=== PATIENT | female | born 1960 | race Two or more races ===

== ENCOUNTER 2016-09-02 06:12 | Inpatient (IN) | payer MEDICARE, OTHER ==
[~2016-09-02] VITALS: Ht 160 cm; Wt 88.5 kg
--- NOTE | 2016-09-02 06:13 | NUR ---
[facility] ambulance c/o g-tube placement confirmation. er md at bedside to eval pt with orders received.
[2016-09-02] MEDS ORDERED: DIATR MEGLU/DIATRIZOATE SODIUM 30 ML BOTTLE (GASTROGRAPHIN) ONE ×3 (06:17→12:14)
--- NOTE | 2016-09-02 06:27 | NUR ---
financial services technician at bedside for KUB.
--- NOTE | 2016-09-02 06:38 | NUR ---
er md at bedside talking to pt family member.
--- NOTE | 2016-09-02 06:43 | NUR ---
jesi garcia talking to [facility] staff.
--- NOTE | 2016-09-02 07:06 | NUR ---
pt back from radiology. pending ct abd/pelvis result.
--- NOTE | 2016-09-02 08:18 | NUR ---
dr emanuel called for consult [phone].
[2016-09-02] MEDS ORDERED: Z GUARD REMEDY 2 OZ OINT TP ONE (08:30)
[2016-09-02] MEDS ORDERED: IV NS 0.9% 1,000 ML BAG IV ONE (08:30)
[2016-09-02] MEDS ORDERED: LANS30CA10 GT (08:33)
[2016-09-02] MEDS ORDERED: MULT-659 GT (08:33)
[2016-09-02] MEDS ORDERED: VALS160T24 GT (08:33)
[2016-09-02] MEDS ORDERED: NA P133E RC (08:33)
[2016-09-02] MEDS ORDERED: INSU100V11 SQ (08:33)
[2016-09-02] MEDS ORDERED: BLOO-697 IN (08:33)
[2016-09-02] MEDS ORDERED: LEVE100S GT (08:33)
[2016-09-02] MEDS ORDERED: BISA10SU8 RC (08:33)
[2016-09-02] MEDS ORDERED: ASCO500S2 GT (08:33)
[2016-09-02] MEDS ORDERED: NUT.237L30 GT (08:33)
[2016-09-02] MEDS ORDERED: ACET-2605 GT (08:33)
[2016-09-02] MEDS ORDERED: INSU100V7 SQ (08:33)
[2016-09-02] MEDS ORDERED: DILT-44 GT (08:33)
[2016-09-02] MEDS ORDERED: ACET650S26 GT ×2 (08:33)
[2016-09-02] MEDS ORDERED: DOCU50LI GT (08:33)
[2016-09-02] MEDS ORDERED: MAGN400O6 GT (08:33)
[2016-09-02] MEDS ORDERED: FERR300L GT (08:33)
[2016-09-02] MEDS ORDERED: HEPA10009 SQ (08:33)
[2016-09-02] MEDS ORDERED: ATOR10TA GT (08:33)
[2016-09-02] MEDS ORDERED: IPRA0.2S9 IH ×2 (08:33)
[2016-09-02] MEDS ORDERED: HYDR-4075 GT (08:33)
[2016-09-02] MEDS ORDERED: ALBU2.5V13 IH ×2 (08:33)
[2016-09-02] MEDS ORDERED: AMIN30LI4 GT (08:35)
--- NOTE | 2016-09-02 08:55 | NUR ---
latoya jaramillo [phone] paged
--- NOTE | 2016-09-02 08:59 | NUR ---
DR RUIZ PAGED [phone]
--- NOTE | 2016-09-02 09:20 | NUR ---
FC PLACED ON GTUBE AREA TO KEEP IT OPEN/INTACT PER MD ORDER. Addendum: 09/02/16 at 0950 by RBATACLAN 14F GILLIAM CATHETER
--- NOTE | 2016-09-02 09:39 | NUR ---
SECOND CALL TO DR MARTINEZ/NIKOLE [phone]
[2016-09-02] MEDS ORDERED: MORPHINE SULFATE INJ 2 MG/ML DISP.SYRIN IV ONE (10:00)
[2016-09-02] MEDS ORDERED: IV NS 0.9% 1,000 ML ONE (10:12)
[2016-09-02] MEDS ORDERED: IV SET PRIMARY PUMP SET 1 EA INFUS.SET MC ONE (10:12)
[2016-09-02] MEDS ORDERED: MORPHINE SULFATE INJ 4 MG/ML DISP.SYRIN ONE (10:12)
[2016-09-02 10:18] LABS: BASOPHILS # (AUTO) 0.1 /CMM (0.0-0.2); BASOPHILS % (AUTO) 0.6 % (0.0-2.0); EOSINOPHILS # (AUTO) 0.1 /CMM (0.0-0.7); EOSINOPHILS % (AUTO) 0.8 % (0.0-6.0); HEMATOCRIT 38 % (33-45); HEMOGLOBIN 12.4 g/dL (11.5-14.8); LYMPHOCYTES # (AUTO) 1.2 /CMM (0.8-4.8); LYMPHOCYTES % (AUTO) 11.5 % (20.0-44.0); MEAN CORPUSCULAR HEMOGLOBIN 30 PG (26.0-33.0); MEAN CORPUSCULAR HGB CONC 33 g/dl (31.0-36.0); MEAN CORPUSCULAR VOLUME 91 fL (82-100); MONOCYTES # (AUTO) 0.3 /CMM (0.1-1.30); MONOCYTES % (AUTO) 3.1 % (2.0-12.0); NEUTROPHILS # (AUTO) 8.8 /CMM (1.8-8.9); PLATELET COUNT (AUTO) 429 /CMM (150-450); RDW COEFFICIENT OF VARIATION 12.3 (11.5-15.0); RED BLOOD CELL COUNT(AUTO) 4.15 MIL/uL (4.0-5.2); WHITE BLOOD COUNT (AUTO) 10.5 K/uL (4.3-11.0)
--- NOTE | 2016-09-02 10:20 | NUR ---
CALLED MED SURG FOR REPORT BUT NURSE UNAVAILABLE.
[2016-09-02 10:26] LABS: CALCIUM, SERUM 8.4 mg/dL (8.5-10.1); CREATININE 0.6 mg/dL (0.6-1.3); POTASSIUM 3.8 mmol/L (3.5-5.1)
[2016-09-02 10:29] LABS: INR 1.03 (0.87-1.13); PROTHROMBIN TIME 10.7 SECS (9.5-12.7)
--- NOTE | 2016-09-02 10:30 | NUR ---
PT MEDICATED ORDERED.
--- NOTE | 2016-09-02 10:54 | NUR ---
REPORT GIVEN TO INA MAYS FOR MED SURG 328.
[2016-09-02 12:00] VITALS: BP 176/99
[2016-09-02] MEDS ORDERED: BISACODYL SUPP (10 MG) 10 MG/SUPP.RECT SUPP.RECT RC PRN (12:00)
[2016-09-02] MEDS ORDERED: hydrALAZINE HCL 10 MG TABLET GT PRN (12:00)
[2016-09-02] MEDS ORDERED: ALBUTEROL FS 2.5 MG/0.5 ML VIAL.NEB IH PRN (12:00)
[2016-09-02] MEDS ORDERED: IPRATROPIUM NEB FS 0.5 MG/2.5 ML AMPUL.NEB IH PRN (12:00)
[2016-09-02] MEDS ORDERED: Potassium Chloride 10 MEQ in IV NS 0.9% 1,000 ML IV PRN (12:00)
[2016-09-02] MEDS ORDERED: DEXTROSE 50%-WATER 50 ML DISP.SYRIN IV PRN (12:00)
[2016-09-02] MEDS ORDERED: MAGNESIUM HYDROXIDE 30 ML UDC GT PRN (12:00)
[2016-09-02] MEDS ORDERED: BLOOD SUGAR DIAGNOSTIC 1 EACH STRIP IN SCH (12:00)
[2016-09-02] MEDS ORDERED: NA PHOS,M-B/NA PHOS,DI-BA 1 EA ENEMA RC PRN (12:00)
--- NOTE | 2016-09-02 12:00 | NUR ---
MS RN RECEIVED A NEW ADMISSION FROM ER, W/ DX OF MISPLACED GTUBE, PATIENT IN NONVERBAL, CONTRACTED, W/ TACH CONNECTED TO AEROSOL, NOTED TO HAVE SACRAL EXCORIATIONS AND RIGHT BUTTOCK SCAR, REPOSITIONED FOR COMFORT,ALL NEEDS ATTENDED.
[2016-09-02] MEDS ORDERED: ACETAMINOPHEN ES 500 MG TABLET GT PRN (12:30)
--- NOTE | 2016-09-02 13:30 | NUR ---
MS RN WAS SEEN BY DR. DICKEY W/ ORDERS MADE AND CARRIED OUT, WAS ABLE TO SPOKE W/ DAUGHTER.
[2016-09-02] MEDS: BLOOD SUGAR DIAGNOSTIC 1 EACH STRIP IN SCH ×2 (15:04→18:37)
[2016-09-02] MEDS: IV D5/0.45 NACL 1,000 ML IV PRN (15:05)
[2016-09-02] MEDS: PANTOPRAZOLE 40 MG VIAL IV SCH (15:08)
[2016-09-02 16:00] VITALS: BP 164/95
[2016-09-02] MEDS: DOCUSATE SODIUM LIQ 100 MG/10 ML UDC GT SCH (17:00)
[2016-09-02] MEDS: LEVETIRACETAM SOL (5 ML) 100 MG/ML UDC GT SCH (17:00)
--- NOTE | 2016-09-02 17:00 | NUR ---
MS TABATHA WEEKS W/ GASTROGRAFLACIE STEWARD AWAITING FOR RESULT,ALL NEEDS ATTENDED.
--- NOTE | 2016-09-02 17:20 | NUR ---
MS MAYS BS - 159 - NO COVERAGE GIVEN PT IS NPO AT THIS TIME.
[2016-09-02 18:35] VITALS: BP 158/94
[2016-09-02] MEDS ORDERED: hydrALAZINE HCL IV 20 MG VIAL IV PRN (19:00)
--- NOTE | 2016-09-02 19:00 | NUR ---
MS RN ON BED, NO DISTRESS NOTED.ALL NEEDS ATTENDED.
[2016-09-02] MEDS: IPRATROPIUM NEB FS 0.5 MG/2.5 ML AMPUL.NEB IH SCH (19:28)
[2016-09-02] MEDS: ALBUTEROL FS 2.5 MG/0.5 ML VIAL.NEB IH SCH (19:29)
--- NOTE | 2016-09-02 19:50 | NUR ---
INSTRUMENT SETTER NOTE: PATIENT RESTING IN BED, NO ACUTE DISTRESS NOTED. BREATHING EVEN AND UNLABORED, NO SOB NOTED. TRACH PORTEX #[address] WITH COOL AEROSOL AT 8 LPM AT 35%. MIDLINE TO REBECA IN PLACE, INFUSING D5 1/2NS AT 85 ML/HR. BED LOCKED AND IN LOWEST POSITION, CALL LIGHT IN REACH. WILL CONTINUE TO MONITOR.
[2016-09-02] MEDS ORDERED: Z GUARD REMEDY 2 OZ OINT TP PRN (20:00)
[2016-09-02 20:34] VITALS: BP 157/71
[2016-09-02] MEDS: ATORVASTATIN 10 MG TABLET GT SCH (22:00)
--- NOTE | 2016-09-02 22:30 | NUR ---
MS RN NOTE: PATIENT LIPITOR NOT GIVEN, PATIENT NPO AND G-TUBE NOT IN CORRECT PLACEMENT. WILL CONTINUE TO MONITOR.
[2016-09-03] MEDS: BLOOD SUGAR DIAGNOSTIC 1 EACH STRIP IN SCH ×5 (00:41→23:56)
--- NOTE | 2016-09-03 00:45 | NUR ---
MS RN NOTE: PATIENT BLOOD SUGAR LEVEL 169MG/DL, NO INSULIN COVERAGE GIVEN. PATIENT NPO AND WITHOUT G-TUBE IN PLACE AND NO FEEDING AT THIS TIME. NO S/S OF HYPERGLYCEMIA NOTED. WILL CONTINUE TO MONITOR.
[2016-09-03] MEDS: ALBUTEROL FS 2.5 MG/0.5 ML VIAL.NEB IH SCH ×4 (01:30→20:07)
[2016-09-03] MEDS: IPRATROPIUM NEB FS 0.5 MG/2.5 ML AMPUL.NEB IH SCH ×4 (01:30→20:07)
[2016-09-03] MEDS: IV D5/0.45 NACL 1,000 ML IV PRN ×2 (05:50→17:30)
--- NOTE | 2016-09-03 06:10 | NUR ---
MS RN NOTE: PATIENT RESTING IN BED, NO ACUTE DISTRESS NOTED. BREATHING EVEN AND UNLABORED, NO SOB NOTED. TRACH PORTEX #[address] WITH COOL AEROSOL AT 8 LPM AT 35%. MIDLINE TO REBECA IN PLACE, INFUSING D5 1/2NS AT 85 ML/HR. G-TUBE SITE WITH GILLIAM IN PLACE TO KEEP G-TUBE HOLE SITE OPEN, NO DRAINAGE NOTED. PATIENT BLOOD SUGAR LEVEL 136 MG/DL, NO INSULIN GIVEN SINCE PATIENT STILL NPO AND HAS NO G-TUBE ACCESS/FEEDING. NO S/S OF HYPERGLYCEMIA NOTED BED LOCKED AND IN LOWEST POSITION, CALL LIGHT IN REACH. WILL ENDORSE TO DAY NURSE TO CONTINUE WITH PLAN OF CARE.
--- NOTE | 2016-09-03 07:19 | NUR ---
MS RN OPENING NOTE: PATIENT RECEIVED AWAKE IN BED IN NO ACUTE SIGNS OF DISTRESS. A/O X1, NON-VERBAL, NO SIGNS OF PAIN OR DISCOMFORTS OBSERVED. ON AEROSOL TRACH COLLAR AT 8 LPM AT 35%FI02, BREATHING EVEN WITH NO SOB NOTED. MIDLINE TO REBECA IN PLACE WITH D5 1/2NS AT 85 ML/HR INFUSING WELL. G-TUBE SITE WITH GILLIAM IN PLACE TO KEEP G-TUBE HOLE SITE OPEN, NO DRAINAGE NOTED. NPO WITH NO G-TUBE ACCESS/FEEDING. BED LOCKED AND IN LOWEST POSITION, CALL LIGHT IN REACH. WILL CONTINUE TO MONITOR ACCORDINGLY.
[2016-09-03 07:55] LABS: BASOPHILS % (AUTO) 0.2 % (0.0-2.0); EOSINOPHILS # (AUTO) 0.1 /CMM (0.0-0.7); EOSINOPHILS % (AUTO) 0.6 % (0.0-6.0); HEMATOCRIT 34 % (33-45); HEMOGLOBIN 11.4 g/dL (11.5-14.8); LYMPHOCYTES # (AUTO) 2.3 /CMM (0.8-4.8); LYMPHOCYTES % (AUTO) 21.7 % (20.0-44.0); MEAN CORPUSCULAR HEMOGLOBIN 30 PG (26.0-33.0); MEAN CORPUSCULAR HGB CONC 33 g/dl (31.0-36.0); MEAN CORPUSCULAR VOLUME 92 fL (82-100); MONOCYTES # (AUTO) 0.6 /CMM (0.1-1.30); MONOCYTES % (AUTO) 5.5 % (2.0-12.0); NEUTROPHILS # (AUTO) 7.7 /CMM (1.8-8.9); PLATELET COUNT (AUTO) 425 /CMM (150-450); RED BLOOD CELL COUNT(AUTO) 3.74 MIL/uL (4.0-5.2); WHITE BLOOD COUNT (AUTO) 10.7 K/uL (4.3-11.0)
[2016-09-03 08:00] VITALS: BP 146/75
[2016-09-03] MEDS: LEVETIRACETAM SOL (5 ML) 100 MG/ML UDC GT SCH ×3 (08:13→16:53)
[2016-09-03] MEDS: ASCORBIC ACID SYRUP 500 MG/5 ML UDC GT SCH ×2 (08:13→09:00)
[2016-09-03] MEDS: DOCUSATE SODIUM LIQ 100 MG/10 ML UDC GT SCH ×3 (08:14→16:55)
[2016-09-03] MEDS: FERROUS SULFATE UDC 300 MG/5 ML UDC GT SCH ×2 (08:14→09:00)
[2016-09-03] MEDS: DILTIAZEM HCL CD 120 MG PO SCH ×2 (08:15→09:00)
[2016-09-03 08:17] LABS: ALBUMIN 2.2 g/dL (3.4-5.0); BILIRUBIN,TOTAL 0.6 mg/dL (0.2-1.0); CALCIUM, SERUM 8.6 mg/dL (8.5-10.1); CREATININE 0.8 mg/dL (0.6-1.3); MAGNESIUM 2.1 mg/dL (1.8-2.4); PHOSPHORUS 3.3 mg/dL (2.5-4.9); POTASSIUM 3.6 mmol/L (3.5-5.1); TOTAL PROTEIN, SERUM 6.9 g/dL (6.4-8.2)
[2016-09-03] MEDS: ACETAMINOPHEN 650 MG/20.3 ML UDC GT SCH ×2 (08:17→09:00)
--- NOTE | 2016-09-03 09:29 | NUR ---
RN NOTES PATIENT'S ALL MEDS AT 0900 NOT GIVEN. PATIENT ON NPO AND G-TUBE NOT IN CORRECT PLACEMENT. CHARGE NURSE MADE AWARE AND WILL FOLLOW-UP WITH MD. WILL CONTINUE TO MONITOR.
--- NOTE | 2016-09-03 11:34 | NUR ---
RN NOTES PATIENT SEEN BY DR LEA GI . CONSENT FOR EGD AND PEG PLACEMENT WITH ANESTHESIA TAKEN FROM DAUGHTER AND FILED IN CHART. NPO AFTER MIDNIGHT ALSO WAS ORDERED. PROCEDURES EXPLAINED TO DAUGHTER AND VERBALIZED UNDERSTANDING. WILL CONTINUE TO MONITOR.
[2016-09-03] MEDS: PANTOPRAZOLE 40 MG VIAL IV SCH (12:35)
[2016-09-03] MEDS: INSULIN REGULAR, HUMAN 100 UNIT/ML 3 ML VIAL SQ PRN ×2 (12:38→23:57)
[2016-09-03 16:00] VITALS: BP 148/84
--- NOTE | 2016-09-03 18:57 | NUR ---
DYE TUB TENDER CLOSING NOTE: PATIENT IN BED RESTING AT MODERTAE HIGH BACKREST. ALERT AND ORIENTED X1. NON-VERBAL. NO SIGNIFICANT CHANGES NOTED THIS SHIFT. DAUGHTER VISITED THIS MORNING. PATIENT WITH TRACH PORTEX #[address] WITH COOL AEROSOL 8LPM TRACH COLLAR AT 35%FI02, NO SOB NOTED. MIDLINE TO REBECA IN PLACE WITH IVF OF D5 1/2NS AT 85 ML/HR. PATIENT IS FOR EGD AND PEG PLACEMENT TOMORROW. NPO ENFORCED. BED LOCKED AND IN LOWEST POSITION, CALL LIGHT IN REACH. ENDORSED TO NIGHT NURSE FOR LEONARD..
[2016-09-03 19:00] VITALS: BP 142/74
--- NOTE | 2016-09-03 19:50 | NUR ---
MS RN INITIAL NOTES: RECEIVED REPORT FROM NIKKY MAYS. PT IN BED, ABLE TO OPEN EYES SPONTANEOUSLY, NON VERBAL ON COOL AEROSOL 8L FIO2 35%. RESPIRATION EVEN AND UNLABORED. NO FACIAL GRIMACE NOTED. APPEARS CALM AND COMFORTABLE. PT HAS GTUBE ON CLAMPED, PT ON NPO BECAUSE GTUBE IS NOT IN PROPER PLACEMENT, ABDOMEN SOFT TO TOUCH, NO DISTENTION NOTED WITH HYPOACTIVE BOWEL SOUND HEARD UPON AUSCULTATION. ALSO FOR EGD AND PEG PLACEMENT IN AM, CONSENT SECURED BY DAY SHIFT RN. PT HAS REBECA MIDLINE, PATENT AND FLUSHING WELL, INFUSING WITH D5 1/2 NS AT 85ML/HR. BLE KEPT OFFLOADED. SAFETY PRECAUTIONS FOR FALL INITIATED CALL LIGHT IN REACH WILL CONTINUE TO MONITOR
[2016-09-03 20:00] VITALS: BP 142/74
--- NOTE | 2016-09-03 20:00 | NUR ---
ms rn notes: pt has gtube with gaines in placed in to keep gtube hole open,
[2016-09-03] MEDS: ATORVASTATIN 10 MG TABLET GT SCH (22:00)
--- NOTE | 2016-09-03 22:04 | NUR ---
ms rn notes: lipitor not administered at this time because pt's on npo and also because of gtube malfunction, gtube not in proper placement.
--- NOTE | 2016-09-03 23:57 | NUR ---
accucheck: blood sugar checked and reveal 138, no insulin given as pt on npo, for egd and peg placement in am
[2016-09-04] VITALS (10 sets, daily range): BP systolic 145–164; BP diastolic 60–87
[2016-09-04] MEDS: IPRATROPIUM NEB FS 0.5 MG/2.5 ML AMPUL.NEB IH SCH ×4 (02:18→19:34)
[2016-09-04] MEDS: ALBUTEROL FS 2.5 MG/0.5 ML VIAL.NEB IH SCH ×4 (02:18→19:34)
--- NOTE | 2016-09-04 04:00 | NUR ---
morning care: assisted clinical social work aide in providing bed bath to the pt, also wound care done as ordered, changed dressing on gtube and trache site.
[2016-09-04] MEDS: IV D5/0.45 NACL 1,000 ML IV PRN (04:48)
[2016-09-04] MEDS: BLOOD SUGAR DIAGNOSTIC 1 EACH STRIP IN SCH ×4 (05:08→23:36)
[2016-09-04] MEDS: INSULIN REGULAR, HUMAN 100 UNIT/ML 3 ML VIAL SQ PRN ×2 (05:08→23:41)
--- NOTE | 2016-09-04 05:08 | NUR ---
accu check: check blood sugar and reveal 161, no insulin given pt npo for egd and peg placement in am
[2016-09-04 06:18] LABS: BASOPHILS % (AUTO) 0.5 % (0.0-2.0); EOSINOPHILS # (AUTO) 0.3 /CMM (0.0-0.7); EOSINOPHILS % (AUTO) 5.1 % (0.0-6.0); HEMATOCRIT 33 % (33-45); HEMOGLOBIN 10.8 g/dL (11.5-14.8); LYMPHOCYTES # (AUTO) 1.8 /CMM (0.8-4.8); MEAN CORPUSCULAR HEMOGLOBIN 30 PG (26.0-33.0); MEAN CORPUSCULAR HGB CONC 33 g/dl (31.0-36.0); MEAN CORPUSCULAR VOLUME 92 fL (82-100); MONOCYTES # (AUTO) 0.5 /CMM (0.1-1.30); MONOCYTES % (AUTO) 7.8 % (2.0-12.0); NEUTROPHILS # (AUTO) 3.2 /CMM (1.8-8.9); NEUTROPHILS % (AUTO) 55.6 % (43.0-81.0); PLATELET COUNT (AUTO) 374 /CMM (150-450); RDW COEFFICIENT OF VARIATION 12.6 (11.5-15.0); RED BLOOD CELL COUNT(AUTO) 3.55 MIL/uL (4.0-5.2); WHITE BLOOD COUNT (AUTO) 5.8 K/uL (4.3-11.0)
[2016-09-04 06:28] LABS: CALCIUM, SERUM 8.5 mg/dL (8.5-10.1); CREATININE 0.7 mg/dL (0.6-1.3); MAGNESIUM 1.9 mg/dL (1.8-2.4); PHOSPHORUS 2.8 mg/dL (2.5-4.9); POTASSIUM 3.2 mmol/L (3.5-5.1)
--- NOTE | 2016-09-04 06:33 | NUR ---
ms rn closing notes: pt in bed, awake, non verbal, remains npo gtube remains clamped. for egd and peg placement today, consent secured, checklist completed. pt remains in cool aerosol , respiration even and unlabored. mahamed midline remains infusing with d5 1/2 ns at 85ml/hr. vs remains stable, needs attended. ble kept offloaded. will endorse to day rn for tracie.
[2016-09-04 06:38] LABS: INR 1.06 (0.87-1.13); PROTHROMBIN TIME 11.4 SECS (9.5-12.7)
[2016-09-04] MEDS: ASCORBIC ACID SYRUP 500 MG/5 ML UDC GT SCH (09:00)
[2016-09-04] MEDS: LEVETIRACETAM SOL (5 ML) 100 MG/ML UDC GT SCH ×2 (09:00→17:25)
[2016-09-04] MEDS: ACETAMINOPHEN 650 MG/20.3 ML UDC GT SCH (09:00)
[2016-09-04] MEDS: DILTIAZEM HCL CD 120 MG PO SCH (09:00)
[2016-09-04] MEDS: DOCUSATE SODIUM LIQ 100 MG/10 ML UDC GT SCH ×2 (09:00→17:25)
[2016-09-04] MEDS: FERROUS SULFATE UDC 300 MG/5 ML UDC GT SCH (09:00)
--- NOTE | 2016-09-04 09:14 | NUR ---
[id number]: HOLD ALL MORNING MEDICATIONS: ASCORBIC ACID 500 MG, FERROUS SULFATE 330 MG, KEPPRA ALMA 500 MG, TYLENOL 650 MG, CARDIZEM 120 MG.
[2016-09-04] MEDS: PANTOPRAZOLE 40 MG VIAL IV SCH (12:34)
[2016-09-04] MEDS ORDERED: PHARMACY TO CHANGE PO MEDS TO GT/NG XX PRN (13:00)
[2016-09-04] MEDS: ACETAMINOPHEN 650 MG/20.3 ML UDC GT PRN (13:14)
[2016-09-04] MEDS ORDERED: DILTIAZEM HCL 30 MG TABLET GT SCH ×2 (13:30→17:00)
[2016-09-04] MEDS: DILTIAZEM HCL 30 MG TABLET GT SCH ×3 (13:54→21:30)
--- NOTE | 2016-09-04 14:58 | NUR ---
[id number]: NOTIFIED DR. PAULSON ABOUT LAB RESULTS FOR TODAY: RBC= 3.55, HGB= 10.8, NA= 149, POTASSIUM=3.2, JLSNYZVX=864. DR. PAULSON ORDERED START D5W WITH 40 KCL AT 80 CC PER HOUR.
[2016-09-04] MEDS ORDERED: Potassium Chloride 40 MEQ in IV D5W 1,000 ML IV ONE (15:30)
--- NOTE | 2016-09-04 17:30 | NUR ---
[id number]: CALLED DR. LEONORA LIM REGARDING GT PLACEMENT. PENDING RETURN PHONE CALL
--- NOTE | 2016-09-04 18:30 | NUR ---
[id number]: CALLED DR. RAPHAEL LEA ABOUT GT PLACEMENT. PENDING RETURN PHONE CALL
--- NOTE | 2016-09-04 19:25 | NUR ---
MS RN OPENING NOTES: RECEIVED PT IN BED. PT ASLEEP AND IS NONVERBAL. PT IS ON TRACH PORTEX #9, COOL AEROSOL 8LPM, FIO2 35%. PT HAS G TUBE. NO FEEDING AT THIS TIME. ENDORSED FROM AM NURSE THAT NONE TO BE STARTED TONIGHT AND THAT TO CONTINUE MEDS VIA G TUBE. PT HAS R UPPER ARM MIDLINE AND IS BEING INFUSED WITH POTASSIUM CHLORIDE 40 MEQ IN D5W. CALL LIGHT WITHIN PT'S REACH. BED KEPT IN LOCKED, LOWEST POSITION, AND SIDE RAILS X 2 UP. NO SIGNS OR SYMPTOMS OF DISTRESS AT THIS TIME. WILL CONTINUE TO MONITOR PT.
[2016-09-04] MEDS: ATORVASTATIN 10 MG TABLET GT SCH (21:30)
--- NOTE | 2016-09-04 23:38 | NUR ---
MS RN NOTES: BLOOD SUGAR WAS 141 MG/DL. NO COVERAGE WAS GIVEN D/T GLYTROL FEEDING NOT BEING STARTED UNTIL TOMORROW ENDORSED FROM AM NURSE. WILL CONTINUE TO MONITOR PT.
[2016-09-05] MEDS: IPRATROPIUM NEB FS 0.5 MG/2.5 ML AMPUL.NEB IH SCH ×4 (01:09→19:10)
[2016-09-05] MEDS: ALBUTEROL FS 2.5 MG/0.5 ML VIAL.NEB IH SCH ×4 (01:09→19:10)
[2016-09-05] MEDS ORDERED: IV SET PRIMARY PUMP SET 1 EA INFUS.SET MC ONE (02:41)
[2016-09-05] MEDS: BLOOD SUGAR DIAGNOSTIC 1 EACH STRIP IN SCH ×3 (05:00→18:32)
--- NOTE | 2016-09-05 05:02 | NUR ---
MS RN NOTES: BLOOD SUGAR WAS 152. NO COVERAGE WAS GIVEN SINCE PT IS STILL NPO. WILL CONTINUE TO MONITOR PT.
[2016-09-05] MEDS: IV D5/0.45 NACL 1,000 ML IV PRN (05:56)
--- NOTE | 2016-09-05 07:37 | NUR ---
MS RN CLOSING NOTES: ALL NEEDS WERE ATTENDED TO ACCORDINGLY. PT OPENS EYES AND IS NONVERBAL. PT HAS TRACH PORTEX #9 AND IS ON COOL AEROSOL 8LPM AND FIO2 35%. PT HAS G TUBE IN PLACE. NO RESIDUAL NOTED. FLUSHED WITH 30ML OF WATER. PT HAS R UPPER ARM MIDLINE AND IS PATENT AND INTACT. FLUIDS ARE INFUSING AT IV D5 1/2 NS 1,000ML AT 85ML/HR. ENDORSED TO AM NURSE FOR CONTINUITY OF CARE.
--- NOTE | 2016-09-05 07:40 | NUR ---
MS RN RECEIVED ON BED, AWAKE AT TIMES, NON VERBAL PATIENT, TRACH CONNECTED TO AEROSOL, NO SOB NOTED. G TUBE CLAMP FOR MEDS, WAITING FOR NUTRITION CONSULT.
[2016-09-05 08:00] VITALS: BP 166/100
[2016-09-05] MEDS: FERROUS SULFATE UDC 300 MG/5 ML UDC GT SCH (09:24)
[2016-09-05] MEDS: DOCUSATE SODIUM LIQ 100 MG/10 ML UDC GT SCH ×2 (09:24→18:32)
[2016-09-05] MEDS: ACETAMINOPHEN 650 MG/20.3 ML UDC GT SCH (09:24)
[2016-09-05] MEDS: LEVETIRACETAM SOL (5 ML) 100 MG/ML UDC GT SCH ×2 (09:24→18:32)
[2016-09-05] MEDS: ASCORBIC ACID SYRUP 500 MG/5 ML UDC GT SCH (09:24)
[2016-09-05] MEDS: DILTIAZEM HCL 30 MG TABLET GT SCH ×4 (09:27→22:44)
--- NOTE | 2016-09-05 10:25 | NUR ---
WOUND CARE CONSULT: PT PRESENTS WITH NEW G TUBE. SITE CLEAR WITH SLIGHTLY DRY SKIN AND HEALED ABRASION TO RT ABDOMEN. SCARRING NOTED TO SACRUM WITH LARGE AREA OF SURGICAL SCAR TO RT BUTTOCK & THIGH. SLIGHT EXCORIATION NOTED TO BUTTOCKS. ALL SKIN PROTECTION RECOMMENDATIONS DISCUSSED WITH NURSING STAFF. RECOMMEND LYDIA ISOFLEX LOW AIRLOSS BED. DISCUSSED WITH NURSING STAFF AND LOCK TENDER. PT TO BE TURNED AND REPOSITIONED EVERY 2 HRS PT CONDITION PERMITS, HEELS FLOATED. PT NOW ON COMFORT GEL MATTRESS. JASMYN SCORE IS 9. MD IN AGREEMENT WITH PLAN OF CARE. Addendum: 09/05/16 at 1029 by CARLOS DOE WNDNU Amended: Links added.
--- NOTE | 2016-09-05 12:00 | NUR ---
MS TABATHA BS - 186 - NO COVERAGE GIVEN, PATIENT IS NPO AT THIS TIME.
[2016-09-05] MEDS: PANTOPRAZOLE 40 MG VIAL IV SCH (13:12)
--- NOTE | 2016-09-05 15:21 | NUR ---
MS RN WAS SEEN BY MACHINE PULLER, WILL START FEEDING SOON.
[2016-09-05 16:00] VITALS: BP 188/100
--- NOTE | 2016-09-05 18:47 | NUR ---
ms rn on bed,feeding started, tolerated well w/o complication, due meds given,all needs attended.
--- NOTE | 2016-09-05 19:40 | NUR ---
MS/RN NOTES RECEIVED PT. LYING IN BED WITH EYES OPEN. PT. IS NON-VERBAL. PT. WITH TRACH PRESENT AND INTACT ON COOL AEROSOL @ 8LPM. NO SOB, RESPIRATORY DISTRESS OR S/S OF PAIN NOTED AT THIS TIME. PT. WITH RIGHT UPPER ARM MIDLINE PRESENT, PATENT AND INTACT ADMINISTERING TO PT. D5 1/2NS @ 85ML/HR. PT. WITH G-TUBE PRESENT, PATENT AND INTACT ADMINISTERING TO PT. GLYTROL @ 30ML/HR. PER DAYSHIFT NURSE PT. SEEN BY DIETARY FEEDING RECENTLY STARTED AT 30ML/HR. PER DIETARY IF PT. TOLERATING FEEDING WELL IN 8 HOURS MAY INCREASE FEEDING RATE BY 10ML/HR WITH GOAL RATE OF 60ML/HR. PT. BILATERAL HEELS OFFLOADED ON PILLOWS. WILL CONTINUE TO MONITOR FOR RESIDUALS. BED IN LOWEST POSITION, CALL LIGHT WITHIN REACH, WILL CONTINUE TO MONITOR.
[2016-09-05] MEDS: GLYTROL 1,000 ML BAG GT SCH (19:56)
[2016-09-05 20:00] VITALS: BP 153/87
[2016-09-05] MEDS: ATORVASTATIN 10 MG TABLET GT SCH (22:44)
[2016-09-06] MEDS: BLOOD SUGAR DIAGNOSTIC 1 EACH STRIP IN SCH ×5 (00:37→23:25)
[2016-09-06] MEDS: INSULIN REGULAR, HUMAN 100 UNIT/ML 3 ML VIAL SQ PRN ×5 (00:39→23:41)
[2016-09-06] MEDS: ALBUTEROL FS 2.5 MG/0.5 ML VIAL.NEB IH SCH ×4 (00:56→19:21)
[2016-09-06] MEDS: IPRATROPIUM NEB FS 0.5 MG/2.5 ML AMPUL.NEB IH SCH ×4 (00:56→19:21)
--- NOTE | 2016-09-06 04:00 | NUR ---
MS/RN NOTES PT. TOLERATING G-TUBE FEEDING WELL. LESS THAN 10ML RESIDUAL NOTED. INCREASED PT. TUBE-FEEDING TO 40ML/HR. WILL CONTINUE TO MONITOR.
--- NOTE | 2016-09-06 05:56 | NUR ---
MS/RN NOTES BLOOD SUGAR= 159, ADMINISTERED 2 UNITS INSULIN PER SLIDING SCALE. PT ON GT FEEDING. WILL MONITOR FOR S/S OF HYPOGLYCEMIA
--- NOTE | 2016-09-06 06:33 | NUR ---
MS/RN NOTES PT. LYING IN BED RESTING. PT. IS NON-VERBAL WITH TRACH PRESENT AND INTACT ON COOL AEROSOL @ 8LPM. NO SOB, RESPIRATORY DISTRESS OR S/S OF PAIN NOTED AT THIS TIME AND THROUGHOUT SHIFT. PT. WITH RIGHT UPPER ARM MIDLINE PRESENT, PATENT AND INTACT ADMINISTERING TO PT. NS WITH 10 MEQ KCL @ 100ML/HR. PT. WITH G-TUBE PRESENT, PATENT AND INTACT ADMINISTERING TO PT. GLYTROL @ 40ML/HR. PT. TOLERATING WELL. WILL ENDORSE TO DAYSHIFT NURSE TO CONTINUE MONITORING TUBE FEEDING AND RESIDUAL, AND IF CONTINUES TO TOLERATE WELL CAN INCREASE FEEDING RATE BY 10ML/HR WITH GOAL RATE OF 60ML/HR. PT. BILATERAL HEELS OFFLOADED. ALL PT. NEEDS MET. PT. OFFLOADED. TURNED AND REPOSITIONED Q2H AND NEEDED. BED IN LOWEST POSITION, CALL LIGHT WITHIN REACH, WILL ENDORSE TO DAYSHIFT NURSE FOR CONTINUITY OF CARE.
--- NOTE | 2016-09-06 07:30 | NUR ---
received pt. in am,stable,suctioned for small amt. thick pale yellowish tinged sputum.
[2016-09-06 08:00] VITALS: BP 164/88
[2016-09-06] MEDS: ACETAMINOPHEN 650 MG/20.3 ML UDC GT SCH ×2 (09:55→16:12)
[2016-09-06] MEDS: DOCUSATE SODIUM LIQ 100 MG/10 ML UDC GT SCH ×2 (09:55→17:00)
[2016-09-06] MEDS: ASCORBIC ACID SYRUP 500 MG/5 ML UDC GT SCH (09:55)
[2016-09-06] MEDS: FERROUS SULFATE UDC 300 MG/5 ML UDC GT SCH (09:55)
[2016-09-06] MEDS: LEVETIRACETAM SOL (5 ML) 100 MG/ML UDC GT SCH ×2 (09:56→18:18)
[2016-09-06] MEDS: PROSOURCE / PROSTAT (PYXIS) 30 ML UDC GT SCH (09:56)
[2016-09-06] MEDS: DILTIAZEM HCL 30 MG TABLET GT SCH ×4 (10:09→21:40)
--- NOTE | 2016-09-06 11:30 | NUR ---
vomited small amt. while lying flat for bath.no apparent aspiration,but chest x-ray done.
[2016-09-06 12:00] VITALS: BP 191/100
[2016-09-06] MEDS: PANTOPRAZOLE 40 MG VIAL IV SCH (12:35)
[2016-09-06] MEDS ORDERED: CLONIDINE HCL 0.1 MG TABLET PO ONE (14:30)
--- NOTE | 2016-09-06 14:38 | NUR ---
dr. kya root called as bp elevated.order for catapres given.given 0.2 mg per g tube.
[2016-09-06 16:00] VITALS: BP 192/94
[2016-09-06] MEDS: ACETAMINOPHEN 650 MG/20.3 ML UDC GT PRN (16:14)
--- NOTE | 2016-09-06 16:26 | NUR ---
bp still elevated,given tylenol.650 mg po.will recheck shortly.
--- NOTE | 2016-09-06 16:27 | NUR ---
dc photos taken in anticipation of disch. today.
--- NOTE | 2016-09-06 18:30 | NUR ---
dtr. called with notification of disch,speaking now to chargemaster analyst-refusing to let mom go home with this late notice.to call
--- NOTE | 2016-09-06 19:20 | NUR ---
dr. kya root,s office called to let her know pt. not leaving till tomorrow.dr. daniels,operational risk consultant to call nurse back.nichol taylor. rn informed md notified.
--- NOTE | 2016-09-06 19:30 | NUR ---
PEG TUBE AUSCULTATED, RESIDUAL CHECKED, SET PEG TUBE FEEDING TO REACH GOAL OF 60 CC/HR, WILL CONTINUE TO MONITOR.
--- NOTE | 2016-09-06 20:00 | NUR ---
RECEIVED PATIENT IN BED, ALERT AND AWAKE, NON-VERBAL, TRACH DEPENDENT ON COOL AEROSOL AT 8LPM, NO SOB, NO DISTRESS, NOT IN APPARENT PAINT, NO FACIAL GRIMACING, NO RESTLESSNESS. CHANGED TRACH DRESSING, SUCTIONED PATIENT, PEG TUBE FEEDING INFUSING WELL AT 40 CC/HR, TO BE ADJUSTED TO REACH GOAL OF 60 CC/HR. PEG TUBE DRESSING IS CLEAN, LEFT UPPER ARM MIDLINE INFUSING WELL, BILATERAL LOWER EXT OFFLOADED WITH BOOTS ON. KEPT HOB AT 45 DEGREES, ON ASPIRATION PRECAUTION. KEPT SAFE AND COMFORTABLE, CALL LIGHT WITHIN REACH.
[2016-09-06 20:04] VITALS: BP 151/80
[2016-09-06] MEDS: GLYTROL 1,000 ML BAG GT SCH (20:32)
[2016-09-06] MEDS: ATORVASTATIN 10 MG TABLET GT SCH (21:39)
[2016-09-06 22:00] VITALS: BP 151/80
--- NOTE | 2016-09-06 22:00 | NUR ---
PEG TUBE FEEDING INFUSING AND TOLERATED WELL AT 60 CC/HR, NO ABDOMINAL DISTENTION, WITH 0 RESIDUAL, WILL CONTINUE TO MONITOR.
[2016-09-07] MEDS: IPRATROPIUM NEB FS 0.5 MG/2.5 ML AMPUL.NEB IH SCH ×2 (01:08→08:23)
[2016-09-07] MEDS: ALBUTEROL FS 2.5 MG/0.5 ML VIAL.NEB IH SCH ×2 (01:08→08:23)
[2016-09-07] MEDS: BLOOD SUGAR DIAGNOSTIC 1 EACH STRIP IN SCH (05:16)
[2016-09-07] MEDS: INSULIN REGULAR, HUMAN 100 UNIT/ML 3 ML VIAL SQ PRN (05:23)
--- NOTE | 2016-09-07 06:39 | NUR ---
PATIENT IS ALERT AND AWAKE, TRACH DEPENDENT ON COOL AEROSOL, NO SOB, NO RESPIRATORY DISTRESS, SUCTIONED PRN, CHANGED TRACH DRESSING, CHANGED INNER CANNULA, MOUTH CARE RENDERED, PROVIDED GOOD PERINEAL CARE, ALL DUE MEDICATIONS GIVEN, CALL LIGHT WITHIN REACH.
[2016-09-07 08:00] VITALS: BP 164/93
--- NOTE | 2016-09-07 08:00 | NUR ---
MS RN NOTES RECEIVED REPORT WITH PATIENT IN BED. PATIENT IS NONVERBAL BUT IS ABLE TO TRACK WITH HER EYES. PATIENT MIDLINE IV IS PATENT AND INTACT. PATIENT CURRENTLY RECEIVING 8LPM OF OXYGEN VIA TRACHEOSTOMY. NO SOB OR ANY S/S OF DISTRESS NOTED. BED IS IN LOW LOCKED POSITION. WILL CONTINUE TO MONITOR PATIENT AND PREPARE FOR DISCHARGE TO [facility].
[2016-09-07] MEDS: ASCORBIC ACID SYRUP 500 MG/5 ML UDC GT SCH (08:27)
[2016-09-07] MEDS: DOCUSATE SODIUM LIQ 100 MG/10 ML UDC GT SCH (08:27)
[2016-09-07] MEDS: LEVETIRACETAM SOL (5 ML) 100 MG/ML UDC GT SCH (08:27)
[2016-09-07 08:29] VITALS: BP 164/93
[2016-09-07] MEDS: PROSOURCE / PROSTAT (PYXIS) 30 ML UDC GT SCH (08:29)
[2016-09-07] MEDS: DILTIAZEM HCL 30 MG TABLET GT SCH (08:29)
[2016-09-07] MEDS: FERROUS SULFATE UDC 300 MG/5 ML UDC GT SCH (08:29)
[2016-09-07] MEDS: ACETAMINOPHEN 650 MG/20.3 ML UDC GT SCH (08:35)
--- NOTE | 2016-09-07 09:30 | NUR ---
MS RN NOTES PATIENT DISCHARGED TO [facility]. CALLED [facility] AND GAVE REPORT TO TABATHA BOOTHE IN SUBAC[place]. PATIENT TRANSFERRED TO [facility] WITH AMBULANCE BY EMT'S. DISCHARGE INSTRUCTIONS, SUMMARY WAS GIVEN TO EMT. BELONGINGS HAVE BEEN ACCOUNTED FOR. PATIENT'S DAUGHTER, NEELA, CAME TO PERSONALLY MEAT CUTTING TEACHER HER BELONGINGS. AWARE OF ALL ABNORMAL LABS. PATIENT'S MIDLINE HAS BEEN REMOVED. ALL PATIENT NEEDS HAVE BEEN MET. PATIENT DISCHARGED IN STABLE CONDITION.
== END 2016-09-07 10:00 | DRG 393 ==
LOC: ER 06:14 → MED 10:02
PROVIDERS: ADMIT Internal Medicine Nephrology; ATTEND Internal Medicine Nephrology
PROC: 05H533Z Insertion of Infusion Device into Right Subclavian Vein, Percutaneous Approach (ICD-10-PCS; 2016-09-02)
PROC: 0DH63UZ Insertion of Feeding Device into Stomach, Percutaneous Approach (ICD-10-PCS; principal; 2016-09-04 09:36)
DX: K94.23 Gastrostomy malfunction (principal); G93.40 Encephalopathy, unspecified; R53.2 Functional quadriplegia; Z99.11 Dependence on respirator [ventilator] status; J96.11 Chronic respiratory failure with hypoxia; E87.0 Hyperosmolality and hypernatremia; R40.3 Persistent vegetative state; J98.11 Atelectasis; Y83.3 Surgical operation with formation of external stoma as the cause of abnormal reaction of the patient, or of later complication, without mention of misadventure at the time of the procedure; Y73.1 Therapeutic (nonsurgical) and rehabilitative gastroenterology and urology devices associated with adverse incidents; E11.9 Type 2 diabetes mellitus without complications; G40.909 Epilepsy, unspecified, not intractable, without status epilepticus; I10 Essential (primary) hypertension; J44.9 Chronic obstructive pulmonary disease, unspecified; R13.10 Dysphagia, unspecified; Z86.73 Personal history of transient ischemic attack (TIA), and cerebral infarction without residual deficits; Z87.440 Personal history of urinary (tract) infections; Z93.0 Tracheostomy status; L98.8 Other specified disorders of the skin and subcutaneous tissue; M24.574 Contracture, right foot; M24.575 Contracture, left foot; L90.5 Scar conditions and fibrosis of skin; S01.501A Unspecified open wound of lip, initial encounter; X58.XXXA Exposure to other specified factors, initial encounter; Y93.9 Activity, unspecified; Y92.129 Unspecified place in nursing home as the place of occurrence of the external cause; L89.159 Pressure ulcer of sacral region, unspecified stage; I87.2 Venous insufficiency (chronic) (peripheral); B35.1 Tinea unguium; M24.542 Contracture, left hand; M24.541 Contracture, right hand; Z88.2 Allergy status to sulfonamides
CPT/HCPCS: 31720; 36415; 36569; 71010-TC; 74000-TC; 74160-TC; 80048-TC; 80053-TC; 82962-TC; 83735-TC; 84100-TC; 84484-TC; 85025-TC; 85610-TC; 85730-TC; 86850-TC; 87081-TC; 94664-TC; A4606; A4623; A6402; A7526; C9113; J0360; J1815; J1953; J2270; J2704; J3480; J3490; J7030; J7070; Q9963; Z7610

== ENCOUNTER 2017-05-23 08:24 | Inpatient (IN) | payer MEDICARE, OTHER ==
[~2017-05-23] VITALS: Ht 162.6 cm; Wt 84.6 kg
[~2017-05-23 08:24] MED LIST: ACET-2605 GT; ACET650S26 GT; ALBU2.5V13 IH; AMIN30LI4 GT; ASCO500S2 GT; ATOR10TA GT; BISA10SU8 RC; BLOO-697 IN; DILT120C62 GT; DOCU50LI GT; FERR300L GT; HEPA10009 SQ; HYDR-4075 GT; INSU100V11 SQ; INSU100V7 SQ; IPRA0.2S9 IH; LANS30CA54 GT; LEVE100S GT; MAGN400O6 GT; MULT-659 GT; NA P133E RC; NUT.237L30 GT; VALS160T24 GT
--- NOTE | 2017-05-23 08:35 | NUR ---
[facility] PRIVATE EMS FROM [facility] FOR ABNORMAL LABS. BUN-178, CREATININE-4.42, WBC-18.28. PATIENT IS TRACH DEPENDENT. HOT TO TOUCH, FEVER 102.4. NO SOB. HYPOTENSIVE. IV IN PLACE FROM SNF ON LEFT HAND, 24 G. SAFETY AND COMFORT MEASURES IN PLACE. MD AT BEDSIDE FOR EVAL.
--- NOTE | 2017-05-23 08:55 | NUR ---
NEW IV STARTED ON RFA, 20 G. BLOOD DRAWN AND SENT TO LAB.
[2017-05-23] MEDS ORDERED: IV NS 0.9% 1,000 ML BAG IV ONE ×2 (09:00→09:30)
[2017-05-23 09:14] LABS: BASOPHILS # (AUTO) 0.1 /CMM (0.0-0.2); BASOPHILS % (AUTO) 0.6 % (0.0-2.0); HEMATOCRIT 23 % (33-45); HEMOGLOBIN 7.8 g/dL (11.5-14.8); LYMPHOCYTES # (AUTO) 1.3 /CMM (0.8-4.8); LYMPHOCYTES % (AUTO) 9.1 % (20.0-44.0); MEAN CORPUSCULAR HEMOGLOBIN 30 PG (26.0-33.0); MEAN CORPUSCULAR HGB CONC 34 g/dl (31.0-36.0); MEAN CORPUSCULAR VOLUME 90 fL (82-100); MONOCYTES # (AUTO) 0.7 /CMM (0.1-1.30); MONOCYTES % (AUTO) 4.6 % (2.0-12.0); NEUTROPHILS # (AUTO) 12.3 /CMM (1.8-8.9); NEUTROPHILS % (AUTO) 85.7 % (43.0-81.0); PLATELET COUNT (AUTO) 214 /CMM (150-450); RDW COEFFICIENT OF VARIATION 14.4 (11.5-15.0); RED BLOOD CELL COUNT(AUTO) 2.55 MIL/uL (4.0-5.2); WHITE BLOOD COUNT (AUTO) 14.4 K/uL (4.3-11.0)
[2017-05-23] MEDS ORDERED: CRAN3875 GT (09:16)
[2017-05-23] MEDS ORDERED: SACC250C PO (09:16)
[2017-05-23] MEDS ORDERED: METR250T PO (09:16)
[2017-05-23] MEDS ORDERED: VANCOMYCIN 1 GM in IV D5W 250 ML IV ONE (09:30)
[2017-05-23] MEDS ORDERED: METRONIDAZOLE 500MG/ NS 100ML 100 ML IV ONE (09:30)
[2017-05-23] MEDS ORDERED: PIPERACILLIN /TAZOBACTAM 3.375 G in IV D5W 50 ML IV ONE (09:30)
[2017-05-23] MEDS ORDERED: ACETAMINOPHEN 650 MG/SUPP.RECT RC ONE ×2 (09:30→09:43)
[2017-05-23 09:45] LABS: TROPONIN I 0.161 ng/mL (0.00-0.056)
[2017-05-23 09:54] LABS: ALBUMIN 1.5 g/dL (3.4-5.0); BILIRUBIN,DIRECT 0.1 mg/dL (0.0-0.2); BILIRUBIN,TOTAL 0.3 mg/dL (0.2-1.0); CALCIUM, SERUM 7.6 mg/dL (8.5-10.1); CREATININE 5.1 mg/dL (0.6-1.3); POTASSIUM 4.1 mmol/L (3.5-5.1); TOTAL PROTEIN, SERUM 6.9 g/dL (6.4-8.2)
--- NOTE | 2017-05-23 10:09 | NUR ---
[facility] ON-CALL PAGED
[2017-05-23 10:35] LABS: BAND % (MANUAL) 3 % (0.0-5.0); LYMPHOCYTES % (MANUAL) 9 % (16-48); MONOCYTES % (MANUAL) 5 % (0-11.0); NEUTROPHILS % (MANUAL) 83 (42-76)
--- NOTE | 2017-05-23 10:50 | NUR ---
16 FR gaines catheter inserted per sterile protocal. Immediate output 60ML of urine, light brown and purulent.
[2017-05-23 11:09] LABS: APPEARANCE,URINE Turbid (CLEAR); BILIRUBIN,URINE SMALL (NEGATIVE); BLOOD, URINE Large Ery/uL (NEGATIVE); KETONES,URINE Trace (NEGATIVE); LEUKOCYTE ESTERASE ,URINE Large (NEGATIVE); NITRITE, URINE Negative (NEGATIVE); PH,URINE 7.5 (5.0-8.0); PROTEIN,URINE >=300 mg/dl (NEGATIVE); UGLUCOSE Negative (NEGATIVE); UROBILINOGEN,URINE 0.2 EU/dL (0.2)
--- NOTE | 2017-05-23 11:10 | NUR ---
RECEIVED ADMITTING ORDERS FROM DR. CORINNE AGUSTIN AND PLACED IN CHART.
[2017-05-23 11:11] LABS: COLOR,URINE Light Brown/Red (YELLOW)
[2017-05-23 11:18] LABS: BACTERIA,URINE Many /HPF (None Seen); RBC,URINE 51-80 /HPF (0-2); SQUAMOUS EPITHELIAL CELL,UR Rare /HPF (None Seen); WBC,URINE TOO NUMEROUS TO COUN /HPF (0-3)
--- NOTE | 2017-05-23 11:57 | NUR ---
105-1 [facility] NURSE NELSON
[2017-05-23] MEDS ORDERED: IPRATROPIUM NEB FS 0.5 MG/2.5 ML AMPUL.NEB IH PRN (12:00)
[2017-05-23] MEDS ORDERED: BISACODYL SUPP (10 MG) 10 MG/SUPP.RECT SUPP.RECT RC PRN (12:00)
[2017-05-23] MEDS ORDERED: NA PHOS,M-B/NA PHOS,DI-BA 1 EA ENEMA RC PRN (12:00)
[2017-05-23] MEDS ORDERED: DEXTROSE 50%-WATER 50 ML DISP.SYRIN IV PRN ×2 (12:00→19:30)
[2017-05-23] MEDS ORDERED: MAGNESIUM HYDROXIDE 30 ML UDC GT PRN (12:00)
[2017-05-23] MEDS ORDERED: ALBUTEROL FS 2.5 MG/0.5 ML VIAL.NEB IH PRN (12:00)
[2017-05-23] MEDS ORDERED: INSULIN REGULAR, HUMAN 100 UNIT/ML 3 ML VIAL SQ PRN (12:00)
[2017-05-23] MEDS: BLOOD SUGAR DIAGNOSTIC 1 EACH STRIP IN SCH ×2 (12:00→17:51)
[2017-05-23] MEDS ORDERED: BLOOD SUGAR DIAGNOSTIC 1 EACH STRIP IN SCH (12:00)
--- NOTE | 2017-05-23 12:45 | NUR ---
REPORT GIVEN TO QUENTIN MAYS FOR LEONARD.
--- NOTE | 2017-05-23 12:50 | NUR ---
PATIENT TRANSPORTED TO [facility] VIA ACLS PROTOCOL FOR ADMISSION. RNQUENTIN TO PROVIDE LEONARD.
--- NOTE | 2017-05-23 13:20 | NUR ---
RISA RN NOTE RECEIVED PATIENT QUOC WITH DX SEPSIS ,UTI UNDER CARE DR NIKOLE SUN, PATIENT AWAKE BUR CONFUSED WITH TRACH ON 3L O2 VIA NC SAT 95% ,BODY CHECK DONE, VS TAKEN T NOW 99.7 , WITH GILLIAM CATH TO GRAVITY WITH HEMATURIA .ON TELE MONITOR SR HR 90 , BED IN LOWEST AND LOCKED POSITION , NO BELONGINGS AT THIS TIME , WILL ORDER WOUND CARE NURSE WILL CONT TO MONITOR CLOSELY Addendum: 05/23/17 at 1541 by QUENTIN BAEZ RN CORRECTION CHICA RECEIVED PATIENT ROM ER
[2017-05-23] MEDS: ALBUTEROL FS 2.5 MG/0.5 ML VIAL.NEB IH SCH ×2 (13:30→19:45)
[2017-05-23] MEDS: IPRATROPIUM NEB FS 0.5 MG/2.5 ML AMPUL.NEB IH SCH ×2 (13:30→19:44)
[2017-05-23 15:14] VITALS: BP 89/45
[2017-05-23] MEDS: HEPARIN SODIUM, PORCINE 5000 UNITS/1 ML VIAL SQ SCH ×2 (15:24→21:00)
--- NOTE | 2017-05-23 15:27 | NUR ---
RISA RN NOTE SEEN BY DR KELLEY WITH NEW ORDER CARRIED OUT, ON COLLER AEROSOL 28% 5L O2 ,SAT 96% ,WILL CONT TO MONITOR CLOSELY
--- NOTE | 2017-05-23 15:42 | NUR ---
RISA RN NOTE ABG DONE ORDERED
[2017-05-23 15:48] LABS: ABG BASE EXCESS -0.7 mmol/L; ABG OXYGEN SATURATION 94.8 % (92.0-98.5); ABG PCO2 36.8 mmHg (35.0-45.0); ABG PH 7.424 (7.350-7.450); ABG PO2 80.8 mmHg (75.0-100.0); AaDO2 75.4 mmHg; COHb 0.3 % (0.5-1.5); MetHb 0.4 % (0.0-1.5); O2Hb 94.1 % (94.0-97.0); SITE, ABG Right Radial; VENT MODE, BG COOL AEROSOL @ 28%
[2017-05-23] MEDS: GLYTROL 1,000 ML BAG GT PRN (15:58)
[2017-05-23 16:00] VITALS: BP_SYST 105; BP_SYST 85; BP_DIAS 44
--- NOTE | 2017-05-23 16:24 | NUR ---
RISA RN NOTE SPOKE WITH DR HOPKINS NOTIFIED THAT BP ON LEG 85/44 AND ON ARM 74/33 ORDERED TO START IVF AT 50 ML PER HOUR NS ,WILL CARRIED OUT
[2017-05-23 16:26] VITALS: BP 85/44
[2017-05-23] MEDS ORDERED: IV NS 0.9% 1,000 ML IV PRN (16:30)
[2017-05-23] MEDS ORDERED: Medication Not On Formulary EA (Saccharomyces Boulardii (Florastor) 250 MG) PO SCH (17:00)
[2017-05-23] MEDS ORDERED: METRONIDAZOLE 250 MG TABLET PO SCH (17:00)
[2017-05-23] MEDS: LEVETIRACETAM SOL (5 ML) 100 MG/ML UDC GT SCH (17:13)
--- NOTE | 2017-05-23 17:48 | NUR ---
RISA RN NOTE IVF STARTED ORDERED, KEEP HOB ELEVATED ,NOT IN ACUTE DISTRESS
--- NOTE | 2017-05-23 17:54 | NUR ---
RISA MAYS NOTE CALLED TO DR CARREON NOTIFIED ABG RESULT, NO NEW ORDER AT THESE TIME Addendum: 05/23/17 at 1807 by QUENTIN BAEZ RN MELVINA CHANEL ON LT FA RON 20 INSERTED WITH GOOD BLOOD RETURN
--- NOTE | 2017-05-23 18:41 | NUR ---
kameron varela note noted skin with diaphoretic , all needs attended ,channing varela food service agent at bedside with new atb order given Addendum: 05/23/17 at 1904 by QUENTIN BAEZ RN T 99.8
[2017-05-23] MEDS ORDERED: FEE PK DOSING 1 MIN EA MC ONE (18:49)
[2017-05-23] MEDS ORDERED: ONDANSETRON HCL/PF 4 MG/2 ML VIAL IV PRN (19:00)
--- NOTE | 2017-05-23 19:30 | NUR ---
RISA RN INITIAL NOTES RECEIVED PATIENT NON-VERBAL, ON TPIECE WITH FIO2 28%. NO S/S OF PAIN OR DISCOMFORT. NO RESPIRATORY DISTRESS NOTED, SPO2 100%. ON TELE MONITOR SR 89. GT PATENT AND INTACT, IN PLACE, TOLERATING GTF. F/C PATENT AND INTACT, DRAINING BY GRAVITY, NOTED CLOUDY WITH PINK TINGE. HOB ELEVATED. SIDE RAILS UP AND LOCKED. BED KEPT AT LOWEST POSITION. CALL LIGHT KEPT WITHIN EASY REACH. WILL CONTINUE TO MONITOR.
[2017-05-23] MEDS: IV NS 0.9% 1,000 ML IV PRN (19:55)
[2017-05-23 20:00] VITALS: BP 95/49
[2017-05-23] MEDS ORDERED: VANCOMYCIN 1 GM in IV NS 0.9% 250 ML IV ONE (20:00)
[2017-05-23] MEDS: MEROPENEM 500 MG in IV NS 0.9% 50 ML IV SCH (20:48)
--- NOTE | 2017-05-23 21:00 | NUR ---
RISA RN NOTES NON-ADMIN HEPARIN, TOO CLOSE IN TIME, GIVEN EARLIER TODAY.
[2017-05-23] MEDS: PIPERACILLIN /TAZOBACTAM 2.25 G in IV NS 0.9% 50 ML IV SCH (21:36)
[2017-05-23] MEDS: INSULIN GLARGINE, 100 UNIT/ML CARTRIDGE SQ SCH (21:36)
[2017-05-23] MEDS: METRONIDAZOLE 500MG/ NS 100ML 500 MG in PREMIX 1 EA IV SCH (21:36)
[2017-05-23] MEDS: ATORVASTATIN 10 MG TABLET GT SCH (21:38)
[2017-05-24] VITALS: BP 111/56
[2017-05-24] MEDS: INSULIN REGULAR, HUMAN 100 UNIT/ML 3 ML VIAL SQ PRN ×3 (00:04→13:35)
[2017-05-24] MEDS: ACETAMINOPHEN 650 MG/20.3 ML UDC GT PRN (00:43)
[2017-05-24] MEDS: ALBUTEROL FS 2.5 MG/0.5 ML VIAL.NEB IH SCH ×4 (00:48→19:33)
[2017-05-24] MEDS: IPRATROPIUM NEB FS 0.5 MG/2.5 ML AMPUL.NEB IH SCH ×4 (00:48→19:33)
[2017-05-24 04:00] VITALS: BP 128/61
[2017-05-24] MEDS: PIPERACILLIN /TAZOBACTAM 2.25 G in IV NS 0.9% 50 ML IV SCH (06:14)
[2017-05-24] MEDS: BLOOD SUGAR DIAGNOSTIC 1 EACH STRIP IN SCH ×3 (06:15→13:25)
[2017-05-24] MEDS: METRONIDAZOLE 500MG/ NS 100ML 500 MG in PREMIX 1 EA IV SCH ×3 (06:20→21:49)
--- NOTE | 2017-05-24 07:15 | NUR ---
RN INITIAL NOTES: REC'D PT ON BED, NOT IN ANY DISTRESS, OPENS EYES SPONTANEOUSLY. ON TPIECE WITH FIO2 28% VIA TRACH. ON TELE MONITOR SR 84. GT PATENT AND INTACT, IN PLACE, ON GLYTROL X 60 CC/HR INFUSING WELL. F/C PATENT AND INTACT, DRAINING BY GRAVITY, NOTED CLOUDY WITH PINK TINGE. PROVIDED COMFORT & SAFETY MEASURES. HOB ELEVATED. SIDE RAILS UP AND LOCKED. BED KEPT AT LOWEST POSITION. CALL LIGHT KEPT WITHIN EASY REACH. WILL CONTINUE TO MONITOR AND ATTEND PT NEEDS.
--- NOTE | 2017-05-24 07:47 | NUR ---
RISA RN CLOSING NOTES NO SIGNIFICANT CHANGES OVERNIGHT. NO RESPIRATORY DISTRESS NOTED. NO S/S OF PAIN OR DISCOMFORT. TOLERATING GTF. F/C PATENT AND INTACT, WITH PINK TINGED OUTPUT. KEPT CLEAN AND DRY. TURNED AND REPOSITIONED Q2 AND PRN. HOB ELEVATED. SIDE RAILS UP AND LOCKED. BED KEPT AT LOWEST POSITION. CONTINUITY OF CARE ENDORSED TO AM NURSE.
[2017-05-24 08:00] VITALS: BP 110/56
[2017-05-24 08:00] LABS: CALCIUM, SERUM 7.3 mg/dL (8.5-10.1); CREATININE 4.1 mg/dL (0.6-1.3); POTASSIUM 3.4 mmol/L (3.5-5.1)
[2017-05-24] MEDS: PANTOPRAZOLE 40 MG/PACK PACK NG SCH (08:09)
[2017-05-24] MEDS: ACETAMINOPHEN 650 MG/20.3 ML UDC GT SCH (08:09)
[2017-05-24] MEDS: MULTIVIT, IRON, MIN NO. 8, FA 1 TAB GT SCH (08:09)
[2017-05-24] MEDS: FERROUS SULFATE UDC 300 MG/5 ML UDC GT SCH (08:09)
[2017-05-24] MEDS: LEVETIRACETAM SOL (5 ML) 100 MG/ML UDC GT SCH ×2 (08:09→18:12)
[2017-05-24] MEDS: HEPARIN SODIUM, PORCINE 5000 UNITS/1 ML VIAL SQ SCH ×2 (08:10→20:56)
--- NOTE | 2017-05-24 08:17 | NUR ---
WOUND CARE CONSULT: PT FOLLOWED BY SURGICAL TEAM FOR SKIN/WOUND TREATMENT. DEFER TO SURGICAL TEAM FOR WOUND AND SKIN TREATMENT PLAN. ALL SKIN PROTECTION MEASURES IN PLACE AND DISCUSSED WITH NURSING STAFF. PT ON FIRST STEP MATTRESS. MD IN AGREEMENT WITH PLAN OF CARE.
[2017-05-24] MEDS: Z GUARD REMEDY 2 OZ OINT TP SCH (09:46)
[2017-05-24 12:00] VITALS: BP 103/58
[2017-05-24] MEDS ORDERED: PIPERACILLIN /TAZOBACTAM 2.25 G in IV NS 0.9% 50 ML IV SCH (13:00)
[2017-05-24] MEDS: IV NS 0.9% 1,000 ML IV PRN ×2 (13:24→21:02)
[2017-05-24] MEDS: GLYTROL 1,000 ML BAG GT PRN (13:38)
[2017-05-24] MEDS ORDERED: VANCOMYCIN 1 GM in IV D5W 250 ML IV ONE (15:00)
[2017-05-24 16:00] VITALS: BP 123/63
--- NOTE | 2017-05-24 18:51 | NUR ---
RN CLOSING NOTES: NO ACUTE CHANGES NOTED W/IN SHIFT. PT TOLERATED TPIECE WITH FIO2 28% VIA TRACH. ON TELE MONITOR STILL SR. GT KEPT PATENT AND INTACT, IN PLACE, TOLERATED GLYTROL X 60 CC/HR, NO RESIDUAL W/IN SHIFT. F/C KEPT PATENT AND INTACT. PER DR. PAULSON, HD NOT INDICATED THIS TIME AND NO NEED TO REPLACE K 3.4. KEPT WELL RESTED. NEED ATTENDED. HOB KEPT ELEVATED. SIDE RAILS UP AND LOCKED. BED KEPT AT LOWEST POSITION. CALL LIGHT KEPT WITHIN EASY REACH. WILL ENDORSED TO PM RN FOR LEONARD.
[2017-05-24] MEDS ORDERED: VANCOMYCIN 500 MG in IV NS 0.9% 100 ML IV PRN (19:00)
--- NOTE | 2017-05-24 19:30 | NUR ---
RISA RN INITIAL NOTES RECEIVED PATIENT NON-VERBAL, ON TPIECE WITH FIO2 28%. NO S/S OF PAIN OR DISCOMFORT. NO RESPIRATORY DISTRESS NOTED, SPO2 100%. ON TELE MONITOR SR. GT PATENT AND INTACT, IN PLACE, TOLERATING GTF. F/C PATENT AND INTACT, DRAINING BY GRAVITY. HOB ELEVATED. SIDE RAILS UP AND LOCKED. BED KEPT AT LOWEST POSITION. CALL LIGHT KEPT WITHIN EASY REACH. WILL CONTINUE TO MONITOR.
[2017-05-24 20:00] VITALS: BP 128/73
[2017-05-24] MEDS ORDERED: FOSFOMYCIN TROMETHAMINE 3 G/PKT PACKET PO ONE (20:00)
[2017-05-24] MEDS: MEROPENEM 500 MG in IV NS 0.9% 50 ML IV SCH (20:56)
[2017-05-24] MEDS: INSULIN GLARGINE, 100 UNIT/ML CARTRIDGE SQ SCH (21:04)
[2017-05-24] MEDS: ATORVASTATIN 10 MG TABLET GT SCH (21:08)
[2017-05-25] VITALS: BP 128/73
[2017-05-25] MEDS: BLOOD SUGAR DIAGNOSTIC 1 EACH STRIP IN SCH ×5 (00:39→23:02)
[2017-05-25] MEDS: INSULIN REGULAR, HUMAN 100 UNIT/ML 3 ML VIAL SQ PRN ×5 (00:40→23:05)
[2017-05-25] MEDS: IPRATROPIUM NEB FS 0.5 MG/2.5 ML AMPUL.NEB IH SCH ×4 (01:29→19:48)
[2017-05-25] MEDS: ALBUTEROL FS 2.5 MG/0.5 ML VIAL.NEB IH SCH ×4 (01:29→19:48)
[2017-05-25 04:00] VITALS: BP 129/62
[2017-05-25] MEDS: IV NS 0.9% 1,000 ML IV PRN ×3 (05:55→18:03)
[2017-05-25] MEDS: GLYTROL 1,000 ML BAG GT PRN ×2 (05:55→23:02)
[2017-05-25] MEDS: METRONIDAZOLE 500MG/ NS 100ML 500 MG in PREMIX 1 EA IV SCH ×3 (05:55→21:18)
[2017-05-25 07:00] LABS: CALCIUM, SERUM 7.1 mg/dL (8.5-10.1); CREATININE 3.5 mg/dL (0.6-1.3); POTASSIUM 3.3 mmol/L (3.5-5.1)
--- NOTE | 2017-05-25 07:34 | NUR ---
RISA RN CLOSING NOTES NO SIGNIFICANT CHANGES OVERNIGHT. NO RESPIRATORY DISTRESS NOTED. NO S/S OF PAIN OR DISCOMFORT. TOLERATING GTF. F/C PATENT AND INTACT. KEPT CLEAN AND DRY. TURNED AND REPOSITIONED Q2 AND PRN. WOUND TX DONE. HOB ELEVATED. SIDE RAILS UP AND LOCKED. BED KEPT AT LOWEST POSITION. CONTINUITY OF CARE ENDORSED TO AM NURSE.
[2017-05-25 08:00] VITALS: BP 125/78
[2017-05-25] MEDS: ACETAMINOPHEN 650 MG/20.3 ML UDC GT SCH (09:16)
[2017-05-25] MEDS: LEVETIRACETAM SOL (5 ML) 100 MG/ML UDC GT SCH ×2 (09:16→17:00)
[2017-05-25] MEDS: FERROUS SULFATE UDC 300 MG/5 ML UDC GT SCH (09:16)
[2017-05-25] MEDS: MULTIVIT, IRON, MIN NO. 8, FA 1 TAB GT SCH (09:16)
[2017-05-25] MEDS: PANTOPRAZOLE 40 MG/PACK PACK NG SCH (09:17)
[2017-05-25] MEDS: Z GUARD REMEDY 2 OZ OINT TP SCH (09:18)
[2017-05-25] MEDS: HEPARIN SODIUM, PORCINE 5000 UNITS/1 ML VIAL SQ SCH ×2 (09:20→21:41)
[2017-05-25] MEDS ORDERED: VANCOMYCIN 0.75 GM in IV D5W 250 ML IV ONE (10:00)
[2017-05-25 12:00] VITALS: BP 113/54
[2017-05-25 16:00] VITALS: BP 116/61
[2017-05-25 20:00] VITALS: BP 149/70
[2017-05-25] MEDS: MEROPENEM 500 MG in IV NS 0.9% 50 ML IV SCH (20:43)
[2017-05-25] MEDS: ATORVASTATIN 10 MG TABLET GT SCH (21:40)
[2017-05-25] MEDS: INSULIN GLARGINE, 100 UNIT/ML CARTRIDGE SQ SCH (23:04)
[2017-05-26] VITALS: BP 127/70
[2017-05-26] MEDS: IV NS 0.9% 1,000 ML IV PRN ×3 (00:39→11:24)
[2017-05-26] MEDS: IPRATROPIUM NEB FS 0.5 MG/2.5 ML AMPUL.NEB IH SCH ×4 (01:37→19:51)
[2017-05-26] MEDS: ALBUTEROL FS 2.5 MG/0.5 ML VIAL.NEB IH SCH ×4 (01:37→19:51)
[2017-05-26 04:00] VITALS: BP 152/75
[2017-05-26] MEDS: BLOOD SUGAR DIAGNOSTIC 1 EACH STRIP IN SCH ×4 (05:18→23:37)
[2017-05-26] MEDS: METRONIDAZOLE 500MG/ NS 100ML 500 MG in PREMIX 1 EA IV SCH ×2 (05:19→13:02)
[2017-05-26] MEDS: INSULIN REGULAR, HUMAN 100 UNIT/ML 3 ML VIAL SQ PRN ×4 (05:23→23:40)
[2017-05-26 07:00] LABS: BASOPHILS % (AUTO) 0.2 % (0.0-2.0); EOSINOPHILS # (AUTO) 0.1 /CMM (0.0-0.7); EOSINOPHILS % (AUTO) 2.8 % (0.0-6.0); HEMATOCRIT 25 % (33-45); HEMOGLOBIN 7.8 g/dL (11.5-14.8); LYMPHOCYTES # (AUTO) 1.4 /CMM (0.8-4.8); LYMPHOCYTES % (AUTO) 26.4 % (20.0-44.0); MEAN CORPUSCULAR HEMOGLOBIN 29 PG (26.0-33.0); MEAN CORPUSCULAR HGB CONC 31 g/dl (31.0-36.0); MEAN CORPUSCULAR VOLUME 92 fL (82-100); MONOCYTES # (AUTO) 0.3 /CMM (0.1-1.30); MONOCYTES % (AUTO) 6.8 % (2.0-12.0); NEUTROPHILS # (AUTO) 3.3 /CMM (1.8-8.9); NEUTROPHILS % (AUTO) 63.8 % (43.0-81.0); PLATELET COUNT (AUTO) 219 /CMM (150-450); RDW COEFFICIENT OF VARIATION 14.3 (11.5-15.0); RED BLOOD CELL COUNT(AUTO) 2.71 MIL/uL (4.0-5.2); WHITE BLOOD COUNT (AUTO) 5.2 K/uL (4.3-11.0)
[2017-05-26 07:17] LABS: BILIRUBIN,TOTAL 0.3 mg/dL (0.2-1.0); CALCIUM, SERUM 7.4 mg/dL (8.5-10.1); CREATININE 2.6 mg/dL (0.6-1.3); PHOSPHORUS 3.1 mg/dL (2.5-4.9); POTASSIUM 3.4 mmol/L (3.5-5.1); TOTAL PROTEIN, SERUM 6.1 g/dL (6.4-8.2)
[2017-05-26 07:29] LABS: ALBUMIN 1.2 g/dL (3.4-5.0)
[2017-05-26 08:00] VITALS: BP 137/73
--- NOTE | 2017-05-26 08:00 | NUR ---
TD/RN AM SHIFT INITIAL NOTES RECEIVED PT AWAKE IN BED, NO ACUTE CHANGE OF CONDITION OR FEVER NOTED. PT AWAKE, OPEN EYES, NON-VERBAL, NO GRIMACING NOTED. RESPONSE TO TOUCH. ON COOL AEROSOL WITH 28% FIOS, LUNG SOUNDS DIMINISHED, SUCTIONED FOR AIRWAY CLEARANCE. SATURATING @ 99%, ON TELE MONITORING, SINUS RHYTHM, HR 93. IV SITE PATENT WITH ON GOING INFUSION OF NS @ 200CC/HR, NO S/S OF INFECTION. GTF ON GOING @ 60CC/HR, NO GASTRIC RESIDUAL, FLUSHED, PATENT. GILLIAM CATHETER INTACT WITH YELLOW URINE OUTPUT. PT IS COMFORTABLE, SCHEDULED AM MEDS TO BE GIVEN. CL WITHIN REACHED AND SAFETY MAINTAINED. ON GOING MONITORING.
[2017-05-26] MEDS: HEPARIN SODIUM, PORCINE 5000 UNITS/1 ML VIAL SQ SCH ×2 (08:20→22:05)
[2017-05-26] MEDS: ACETAMINOPHEN 650 MG/20.3 ML UDC GT SCH (08:20)
[2017-05-26] MEDS: MULTIVIT, IRON, MIN NO. 8, FA 1 TAB GT SCH (08:20)
[2017-05-26] MEDS: PANTOPRAZOLE 40 MG/PACK PACK NG SCH (08:20)
[2017-05-26] MEDS: FERROUS SULFATE UDC 300 MG/5 ML UDC GT SCH (08:20)
[2017-05-26] MEDS: LEVETIRACETAM SOL (5 ML) 100 MG/ML UDC GT SCH ×2 (08:21→17:14)
[2017-05-26] MEDS: Z GUARD REMEDY 2 OZ OINT TP SCH (08:21)
[2017-05-26] MEDS: VANCOMYCIN 1 GM in IV D5W 250 ML IV SCH (11:24)
[2017-05-26 12:00] VITALS: BP 122/69
--- NOTE | 2017-05-26 12:42 | NUR ---
TD/RN ROUNDS - DR. PAULSON UPDATED PT'S CONDITION. RECEIVED VERBAL ORDERS FROM DR. PAULSON TO REDUCE RATE OF NS INFUSION TO 100CC/HR AND TO GIVEN 40MEQ KDUR ONCE VIA GT. ORDERS NOTED AND CARRIED. MONITORING CONTINUED.
[2017-05-26] MEDS ORDERED: POTASSIUM CHLORIDE 20 MEQ TAB.PRT.SR PO ONE (13:00)
[2017-05-26 16:00] VITALS: BP 140/67
[2017-05-26] MEDS: GLYTROL 1,000 ML BAG GT PRN (17:13)
--- NOTE | 2017-05-26 17:45 | NUR ---
TELE1/RN PM ROUNDS NO ACUTE CHANGE OF CONDITION. PM CARE PROVIDED. 1 OF 3 STOOL FOR OB COLLECTED, LAB NOTIFIED FOR PICK-UP. MONITORING CONTINUED.
--- NOTE | 2017-05-26 19:28 | NUR ---
TELE1/RN AM SHIFT END NOTES ALL NEEDS MET, NO ACUTE CHANGE OF CONDITION NOTED DURING THE SHIFT. PT ENDORSED TO PM NURSE TO CONTINUE CARE. CL WITHIN REACHED AND SAFETY MAINTAINED.
--- NOTE | 2017-05-26 19:30 | NUR ---
RN NOTE RECEIVED PATIENT IN THE BED, AWAKE, OBTUNDED, DX: SEPSIS, UTI, AFEBRILE, NO RESPIRATORY DISTRESS NOTED, ON AEROSOL, 5 L/MIN OXYGEN, GILLIAM CATHER IN PLACE, LFA 20 GAUGE NS 100 ML/HR, NO BM, ALL SAFETY MEASURES TAKEN , BED IN THE LOW POSITION, SIDE RAILS UP X 2, ALL BELONGINGS WITHIN REACH, CALL LIGHT WITHIN REACH, WILL CONTINUE TO MONITOR PATIENT
[2017-05-26 20:00] VITALS: BP 141/63
[2017-05-26] MEDS: MEROPENEM 500 MG in IV NS 0.9% 50 ML IV SCH (20:27)
[2017-05-26] MEDS: INSULIN GLARGINE, 100 UNIT/ML CARTRIDGE SQ SCH (22:00)
[2017-05-27] VITALS: BP_SYST 152; BP_SYST 156; BP_DIAS 71; BP_DIAS 76
[2017-05-27] MEDS: IV NS 0.9% 1,000 ML IV PRN ×2 (00:57→11:32)
[2017-05-27] MEDS: ALBUTEROL FS 2.5 MG/0.5 ML VIAL.NEB IH SCH ×4 (01:40→19:13)
[2017-05-27] MEDS: IPRATROPIUM NEB FS 0.5 MG/2.5 ML AMPUL.NEB IH SCH ×4 (01:40→19:12)
[2017-05-27 04:00] VITALS: BP 158/74
[2017-05-27] MEDS: BLOOD SUGAR DIAGNOSTIC 1 EACH STRIP IN SCH ×4 (06:15→23:42)
[2017-05-27] MEDS: INSULIN REGULAR, HUMAN 100 UNIT/ML 3 ML VIAL SQ PRN ×4 (06:22→23:45)
[2017-05-27 06:51] LABS: BASOPHILS % (AUTO) 0.3 % (0.0-2.0); EOSINOPHILS # (AUTO) 0.1 /CMM (0.0-0.7); EOSINOPHILS % (AUTO) 3.1 % (0.0-6.0); HEMATOCRIT 25 % (33-45); HEMOGLOBIN 8.3 g/dL (11.5-14.8); LYMPHOCYTES # (AUTO) 1.3 /CMM (0.8-4.8); LYMPHOCYTES % (AUTO) 36.9 % (20.0-44.0); MEAN CORPUSCULAR HEMOGLOBIN 30 PG (26.0-33.0); MEAN CORPUSCULAR HGB CONC 33 g/dl (31.0-36.0); MEAN CORPUSCULAR VOLUME 93 fL (82-100); MONOCYTES # (AUTO) 0.2 /CMM (0.1-1.30); MONOCYTES % (AUTO) 6.2 % (2.0-12.0); NEUTROPHILS # (AUTO) 1.9 /CMM (1.8-8.9); NEUTROPHILS % (AUTO) 53.5 % (43.0-81.0); PLATELET COUNT (AUTO) 151 /CMM (150-450); RDW COEFFICIENT OF VARIATION 14.6 (11.5-15.0); RED BLOOD CELL COUNT(AUTO) 2.73 MIL/uL (4.0-5.2); WHITE BLOOD COUNT (AUTO) 3.6 K/uL (4.3-11.0)
[2017-05-27 07:01] LABS: CALCIUM, SERUM 7.4 mg/dL (8.5-10.1); MAGNESIUM 1.8 mg/dL (1.8-2.4); PHOSPHORUS 2.5 mg/dL (2.5-4.9); POTASSIUM 3.5 mmol/L (3.5-5.1)
[2017-05-27 07:05] LABS: IRON, SERUM 46 ug/dl (50-175); TOTAL IRON BINDING CAPACITY 111 ug/dl (250-450)
--- NOTE | 2017-05-27 07:20 | NUR ---
RN NOTE RECEIVED CRITICAL LAB VALUES, ENDORSED TO AM NURSE MARY, SHE WILL CONTACT
--- NOTE | 2017-05-27 07:44 | NUR ---
RN NOTE PATIENT WAS STABLE DURING MY SHIFT, NO ACUTE CHANGES, NO RESPIRATORY DISTRESS, AFEBRILE, NO S/S OF PAIN OR DICOMFORT NOTED, OBTUNDED, RECEIVED CRITICAL LAB VALUES NA, BUN, CREATININE, ENDORSED TO AM NURSE MARY, SHE WILL CONTACT , TURNED AND REPOSITIONED Q 2 HOURS, ALL TREATMENTS PROVIDED, G-TUBE FEEDING TOLERATED WELL, 0 RESIDUAL, ALL SAFETY MEASURES TAKEN, BED IN THE LOWEST POSITION, SIDE RAILS UP X 2, STOOL WAS COLLECTED X 3, ENDORSED REPORT TO AM SHIFT
--- NOTE | 2017-05-27 07:50 | NUR ---
RN NOTE:(INITIAL) PATIENT RECEIVED OBTUNDED ON OXYGEN THERAPY 5LPM VIA T-PIECE, COOL AEROSOL.NO BREATHING DISTRESS NOTED. ON TELE MONITOR SINUS RHYTHM. IV CATHETER INTACT. F/C INTACT, DRAINING WELL WITH GRAVITY. G-TUBE RUNNING WELL, NO RESIDUAL NOTED. ASPIRATION PRECAUTIONS OBSERVED. SAFETY MEASURES OBSERVED. CALL LIGHT WITHIN REACH. WILL CONTINUE TO MONITOR.
[2017-05-27 08:00] VITALS: BP 146/74
[2017-05-27] MEDS: LEVETIRACETAM SOL (5 ML) 100 MG/ML UDC GT SCH ×2 (08:48→17:42)
[2017-05-27] MEDS: PANTOPRAZOLE 40 MG/PACK PACK NG SCH (08:49)
[2017-05-27] MEDS: ACETAMINOPHEN 650 MG/20.3 ML UDC GT SCH (08:49)
[2017-05-27] MEDS: FERROUS SULFATE UDC 300 MG/5 ML UDC GT SCH (08:49)
[2017-05-27] MEDS: MULTIVIT, IRON, MIN NO. 8, FA 1 TAB GT SCH (08:49)
[2017-05-27] MEDS: HEPARIN SODIUM, PORCINE 5000 UNITS/1 ML VIAL SQ SCH ×2 (08:50→21:07)
[2017-05-27] MEDS: Z GUARD REMEDY 2 OZ OINT TP SCH (08:50)
[2017-05-27] MEDS: GLYTROL 1,000 ML BAG GT PRN (09:14)
[2017-05-27 12:00] VITALS: BP 115/67
[2017-05-27] MEDS: hydrALAZINE HCL 10 MG TABLET GT SCH ×3 (12:30→23:50)
[2017-05-27] MEDS: IV 1/2NS 1000 ML 1,000 ML IV PRN ×2 (12:37→23:37)
[2017-05-27 14:33] LABS: FERRITIN 597 ng/mL (8-388)
[2017-05-27 16:00] VITALS: BP 150/79
--- NOTE | 2017-05-27 19:09 | NUR ---
RN NOTES: NO SIGNIFICANT CHANGES NOTED DURING SHIFT. CRITICAL LAB VALUES DISCUSSED WITH DR. CORINNE AGUSTIN, ORDERS NOTED & CARRIED OUT. CONTINUE TO FLUSH G-TUBE. WOUND CARE DONE. TURNING & REPOSITIONING Q2H. SAFETY MEASURES OBSERVED. ASPIRATIONS PRECAUTIONS OBSERVED. PT CLEAN & DRY. REPORT GIVEN TO PM RN FOR CONTINUITY OF CARE.
--- NOTE | 2017-05-27 20:00 | NUR ---
RN NOTE: TEL INITIAL PATIENT RECEIVED OBTUNDED ON OXYGEN THERAPY 5LPM VIA T-PIECE, COOL AEROSOL.NO BREATHING DISTRESS NOTED. ON TELE MONITOR SINUS RHYTHM. IV CATHETER INTACT. F/C INTACT, DRAINING WELL WITH GRAVITY. G-TUBE RUNNING WELL, NO RESIDUAL NOTED. ASPIRATION PRECAUTIONS OBSERVED. SAFETY MEASURES OBSERVED. CALL LIGHT WITHIN REACH. WILL CONTINUE TO MONITOR.
[2017-05-27] MEDS: MEROPENEM 500 MG in IV NS 0.9% 50 ML IV SCH (20:58)
[2017-05-27 23:15] VITALS: BP 142/73
[2017-05-27] MEDS: INSULIN GLARGINE, 100 UNIT/ML CARTRIDGE SQ SCH (23:46)
[2017-05-27] MEDS: VANCOMYCIN 1 GM in IV D5W 250 ML IV SCH (23:51)
[2017-05-28] VITALS (7 sets, daily range): BP systolic 124–159; BP diastolic 67–80
[2017-05-28] MEDS: ALBUTEROL FS 2.5 MG/0.5 ML VIAL.NEB IH SCH ×4 (00:51→19:31)
[2017-05-28] MEDS: IPRATROPIUM NEB FS 0.5 MG/2.5 ML AMPUL.NEB IH SCH ×4 (00:51→19:31)
[2017-05-28] MEDS: BLOOD SUGAR DIAGNOSTIC 1 EACH STRIP IN SCH ×3 (05:30→17:28)
[2017-05-28] MEDS: GLYTROL 1,000 ML BAG GT PRN ×2 (05:31→14:42)
[2017-05-28] MEDS: INSULIN REGULAR, HUMAN 100 UNIT/ML 3 ML VIAL SQ PRN ×4 (05:34→22:50)
[2017-05-28] MEDS: hydrALAZINE HCL 10 MG TABLET GT SCH ×3 (05:40→17:30)
--- NOTE | 2017-05-28 06:57 | NUR ---
RN NOTE: TEL CLOSING PATIENT ENDORSED OBTUNDED ON OXYGEN THERAPY 5LPM VIA T-PIECE, COOL AEROSOL.NO BREATHING DISTRESS NOTED. ON TELE MONITOR SINUS RHYTHM. IV CATHETER INTACT. F/C INTACT, DRAINING WELL WITH GRAVITY. G-TUBE RUNNING WELL, NO RESIDUAL NOTED. ASPIRATION PRECAUTIONS OBSERVED. SAFETY MEASURES OBSERVED. CALL LIGHT WITHIN REACH. WILL CONTINUE TO MONITOR.
--- NOTE | 2017-05-28 07:30 | NUR ---
TEL RN AM NOTE: PATIENT RECEIVED, OBTUNDED, ON OXYGEN THERAPY 5LPM VIA T-PIECE PORTEX #9, COOL AEROSOL.NOT I ANY DISTRESS, RESPIRATION EVEN AND UNLABORED. ON TELE MONITOR SINUS RHYTHM HR 83, NO SIGNS OF ANY PAIN OR DISCOMFORT. LFA IV ACCESS NOTED TO BE INFILTRATED, NO BACK FLOW, WILL ASK MD FOR MIDLINE INSERTION.GLYTROL AT 60 ML/HR ONGOING, O RESIDUAL, F/C INTACT, DRAINING WELL TO GRAVITY. ASPIRATION PRECAUTIONS OBSERVED. HOB ELEVATED, WILL TURN AND REPOSITION Q 2 HOURS. SAFETY MEASURES OBSERVED. CALL LIGHT WITHIN REACH. WILL CONTINUE TO MONITOR.
--- NOTE | 2017-05-28 09:30 | NUR ---
ENTERPRISE ACCOUNT EXECUTIVE NOTES DUE MEDS GIVEN. NURSING FLUORESCENT LAMP REPLACER DHRUV - NOTIFIED RE PATIENT NEED FOR MIDLINE.
[2017-05-28] MEDS: MULTIVIT, IRON, MIN NO. 8, FA 1 TAB GT SCH (09:45)
[2017-05-28] MEDS: FERROUS SULFATE UDC 300 MG/5 ML UDC GT SCH (09:45)
[2017-05-28] MEDS: PANTOPRAZOLE 40 MG/PACK PACK NG SCH (09:45)
[2017-05-28] MEDS: LEVETIRACETAM SOL (5 ML) 100 MG/ML UDC GT SCH ×2 (09:45→17:27)
[2017-05-28] MEDS: ACETAMINOPHEN 650 MG/20.3 ML UDC GT SCH (09:45)
[2017-05-28] MEDS: HEPARIN SODIUM, PORCINE 5000 UNITS/1 ML VIAL SQ SCH ×2 (09:46→21:15)
[2017-05-28] MEDS: Z GUARD REMEDY 2 OZ OINT TP SCH (09:47)
--- NOTE | 2017-05-28 11:52 | NUR ---
BANKING SUPERVISOR NOTES ACCUCHECK DONE. BS 242 MG/DL, ADMINISTERED 6 UNITS HUM R PER SS.
--- NOTE | 2017-05-28 12:30 | NUR ---
DR. AGUSTIN MADE AWARE DAUGHTER NEELA WANTS TO TALK TO MD REGARDING PT. CONDITION,PER DR. AGUSTIN SHE WILL CALL HER TOMMOROW,FAMILY MADE AWaRE.NEELA TEL. #[phone].
[2017-05-28] MEDS: IV 1/2NS 1000 ML 1,000 ML IV PRN (14:38)
[2017-05-28 16:06] LABS: BASOPHILS % (AUTO) 0.5 % (0.0-2.0); EOSINOPHILS # (AUTO) 0.2 /CMM (0.0-0.7); EOSINOPHILS % (AUTO) 4.3 % (0.0-6.0); HEMATOCRIT 22 % (33-45); HEMOGLOBIN 7.3 g/dL (11.5-14.8); LYMPHOCYTES # (AUTO) 1.9 /CMM (0.8-4.8); LYMPHOCYTES % (AUTO) 34.2 % (20.0-44.0); MEAN CORPUSCULAR HEMOGLOBIN 31 PG (26.0-33.0); MEAN CORPUSCULAR HGB CONC 33 g/dl (31.0-36.0); MEAN CORPUSCULAR VOLUME 92 fL (82-100); MONOCYTES # (AUTO) 0.4 /CMM (0.1-1.30); MONOCYTES % (AUTO) 7.3 % (2.0-12.0); NEUTROPHILS % (AUTO) 53.7 % (43.0-81.0); PLATELET COUNT (AUTO) 418 /CMM (150-450); RDW COEFFICIENT OF VARIATION 15.3 (11.5-15.0); RED BLOOD CELL COUNT(AUTO) 2.39 MIL/uL (4.0-5.2); WHITE BLOOD COUNT (AUTO) 5.7 K/uL (4.3-11.0)
[2017-05-28 16:21] LABS: CALCIUM, SERUM 7.6 mg/dL (8.5-10.1); CREATININE 1.3 mg/dL (0.6-1.3); MAGNESIUM 1.4 mg/dL (1.8-2.4); PHOSPHORUS 2.5 mg/dL (2.5-4.9); POTASSIUM 3.4 mmol/L (3.5-5.1)
--- NOTE | 2017-05-28 16:45 | NUR ---
LIMO DRIVER NOTES DR. Tyrell PAULSON MADE AWARE OF MAGNESIUM 1.4. NEW ORDER TO GIVE 2 GRAMS MAGNESIUM
[2017-05-28] MEDS: Magnesium 1GM/D5W 100ML PREMIX 100 ML IV SCH ×2 (17:28→18:38)
--- NOTE | 2017-05-28 17:36 | NUR ---
MACHINE FINISHER NOTES ACCUCHECK. BS 228 MG/DL. ADMINISTERED 6 UNITS HUM R PER SS. MAGNESIUM BAG #1 STARTED JOAN
--- NOTE | 2017-05-28 18:38 | NUR ---
CAREER ORIENTATION TEACHER NOTES MAGNESIUM IC BAG#2 RUNNING.
--- NOTE | 2017-05-28 18:38 | NUR ---
DUMPSTER OPERATOR CLOSING NOTE: PATIENT RESTING , OBTUNDED, ON OXYGEN THERAPY 5LPM VIA T-PIECE PORTEX #9, COOL AEROSOL.NOT IN ANY DISTRESS, RESPIRATION EVEN AND UNLABORED. ON TELE MONITOR SINUS RHYTHM HR 88, NO SIGNS OF ANY PAIN OR DISCOMFORT. REBECA MIDLINE G 18 WITH 1/2 NS AT 100 ML/HR. SITE CLEAR. GLYTROL AT 60 ML/HR ONGOING, O RESIDUAL, F/C INTACT, DRAINING WELL TO GRAVITY 800 ML OUTPUT. ASPIRATION PRECAUTIONS OBSERVED. HOB ELEVATED, TURNED AND REPOSITIONED Q 2 HOURS. SAFETY MEASURES OBSERVED. CALL LIGHT WITHIN REACH. WILL ENDORSE TO NEXT SHIFT FOR LEONARD.
--- NOTE | 2017-05-28 19:00 | NUR ---
While rounding at change of shift. Recieved a well nourished patient whom is female and bedbound. Noted on Semi-lowe's position for aspiration precaution. Patient is none-verbal but makes eye contact. Noted trach with clean dry dressing at trach site. Clear lung sounds with no episodes of cardiopulmonary distress on day shift. Patient is stable at this point and time. Noted with feeding via GT with no residual at this point and time. Active bowel sounds. Noted left arm contracted with non-pitting edema from right elbow to hand. Noted extended flaccid right arm and mid-line to right upper arm. LE are extended with faint pedal pulses. Noted non-pitting edema to bilateral feed. Noted suction at bed side with yaunkers. F/C at foot of bed draining clear yellow urine. call light with in reach. Patient on low air mattress for wound precaution.
[2017-05-28] MEDS: MEROPENEM 500 MG in IV NS 0.9% 50 ML IV SCH (19:42)
[2017-05-28] MEDS: INSULIN GLARGINE, 100 UNIT/ML CARTRIDGE SQ SCH (22:45)
[2017-05-29] VITALS: BP 155/73
[2017-05-29] MEDS: BLOOD SUGAR DIAGNOSTIC 1 EACH STRIP IN SCH ×5 (00:24→23:10)
[2017-05-29] MEDS: hydrALAZINE HCL 10 MG TABLET GT SCH ×4 (01:21→17:02)
[2017-05-29] MEDS: IPRATROPIUM NEB FS 0.5 MG/2.5 ML AMPUL.NEB IH SCH ×5 (01:29→20:53)
[2017-05-29] MEDS: ALBUTEROL FS 2.5 MG/0.5 ML VIAL.NEB IH SCH ×5 (01:29→20:53)
[2017-05-29] MEDS: INSULIN REGULAR, HUMAN 100 UNIT/ML 3 ML VIAL SQ PRN ×5 (01:32→23:13)
[2017-05-29 04:00] VITALS: BP 160/72
[2017-05-29 06:38] LABS: BASOPHILS % (AUTO) 0.4 % (0.0-2.0); EOSINOPHILS # (AUTO) 0.2 /CMM (0.0-0.7); EOSINOPHILS % (AUTO) 4.2 % (0.0-6.0); HEMATOCRIT 22 % (33-45); HEMOGLOBIN 7.1 g/dL (11.5-14.8); LYMPHOCYTES # (AUTO) 1.8 /CMM (0.8-4.8); LYMPHOCYTES % (AUTO) 31.6 % (20.0-44.0); MEAN CORPUSCULAR HEMOGLOBIN 31 PG (26.0-33.0); MEAN CORPUSCULAR HGB CONC 33 g/dl (31.0-36.0); MEAN CORPUSCULAR VOLUME 92 fL (82-100); MONOCYTES # (AUTO) 0.4 /CMM (0.1-1.30); MONOCYTES % (AUTO) 6.9 % (2.0-12.0); NEUTROPHILS # (AUTO) 3.2 /CMM (1.8-8.9); NEUTROPHILS % (AUTO) 56.9 % (43.0-81.0); PLATELET COUNT (AUTO) 430 /CMM (150-450); RDW COEFFICIENT OF VARIATION 14.7 (11.5-15.0); RED BLOOD CELL COUNT(AUTO) 2.33 MIL/uL (4.0-5.2); WHITE BLOOD COUNT (AUTO) 5.7 K/uL (4.3-11.0)
[2017-05-29 07:19] LABS: CALCIUM, SERUM 8.1 mg/dL (8.5-10.1); CREATININE 1.3 mg/dL (0.6-1.3); PHOSPHORUS 2.6 mg/dL (2.5-4.9); POTASSIUM 3.7 mmol/L (3.5-5.1)
[2017-05-29 07:27] LABS: MAGNESIUM 1.8 mg/dL (1.8-2.4)
[2017-05-29 08:00] VITALS: BP 145/83
--- NOTE | 2017-05-29 08:00 | NUR ---
WAISTBAND SETTER LOCKSTITCH NOTES PATIENT IN BED, AWAKE, EYES OPEN, NON VERBAL. ON TELE MONITOR SINUS RHYTHM HR 83, NO SOB. TRACH INTACT, ON COOL AEROSOL. REBECA MIDLINE PATENT AND INTACT. FEEDING RESIDUAL 5CC, ON GTUBE FEEDING GYTROL AT 60ML/HR. MAINTAIN SAFETY PRECAUTION. WILL CONT TO MONITOR.
[2017-05-29] MEDS: PANTOPRAZOLE 40 MG/PACK PACK NG SCH (09:04)
[2017-05-29] MEDS: LEVETIRACETAM SOL (5 ML) 100 MG/ML UDC GT SCH ×2 (09:04→16:28)
[2017-05-29] MEDS: FERROUS SULFATE UDC 300 MG/5 ML UDC GT SCH (09:04)
[2017-05-29] MEDS: MULTIVIT, IRON, MIN NO. 8, FA 1 TAB GT SCH (09:04)
[2017-05-29] MEDS: ACETAMINOPHEN 650 MG/20.3 ML UDC GT SCH (09:06)
[2017-05-29] MEDS: HEPARIN SODIUM, PORCINE 5000 UNITS/1 ML VIAL SQ SCH ×2 (09:11→21:11)
[2017-05-29] MEDS: Z GUARD REMEDY 2 OZ OINT TP SCH (09:12)
[2017-05-29] MEDS: VANCOMYCIN 1 GM in IV D5W 250 ML IV SCH (11:01)
[2017-05-29 12:00] VITALS: BP 144/90
--- NOTE | 2017-05-29 13:41 | NUR ---
CALLED SPOKE TO NEELA ESPINOSA (PATIENTS DAUGHTER), NOT APPROVING BLOOD TRANSFUSION AT THIS TIME UNTIL SPEAKING TO THE DOCTOR. WILL INFORM DR. PAULSON.
[2017-05-29 16:00] VITALS: BP 165/91
[2017-05-29] MEDS ORDERED: EPOETIN ALFA (10,000 UNIT) 10,000 UNIT/ML VIAL SQ ONE (16:00)
--- NOTE | 2017-05-29 18:45 | NUR ---
CYLINDER INSPECTOR AND TESTER CLOSING NOTES PATIENT IN BED, OBTUNDED. ON TELE MONITOR SINUS RHYTHM HR 83, TRACH INTACT IN COOL AEROSOL. SUCTION PRN. GASTRIC RESIDUAL 5CC, ON GTUBE FEEDING GLYTROL AT 60ML/HR, TOLERATING WELL. MAINTAIN HOB ELEVATED. REBECA MIDLINE PATENT AND INTACT, FLUSHES WELL. BLOOD SUGAR MONITORED WITH ISS PARAMETERS ORDERED. DAUGHTER DECLINED BLOOD TRANSFUSION UNTIL SPOKEN TO MD. DR PAULSON WAS INFORMED, EPOGEN SQ GIVEN. CHARGE NURSE IS AWARE. MAINTAIN SAFETY PRECAUTION. WILL ENDORSE TO ONCOMING RN.
[2017-05-29] MEDS: GLYTROL 1,000 ML BAG GT PRN (18:48)
--- NOTE | 2017-05-29 19:30 | NUR ---
CO TEACHER INITIAL NOTE PT RECEIVED IN BED. OBTUNDED. ON COOL AEROSOL AND TRACH IN PLACE. HOB ELEVATED. TELE-SINUS RHYTHM 80. IV REBECA MIDLINE CLEAN, DRY, PATENT AND FLUSHING WELL. GTUBE IN PLACE WITH FEEDING WELL TOLERATED AND NO RESIDUALS NOTED AT THIS TIME. ON ASPIRATION PRECAUTIONS. WILL CONTINUE TO MONITOR.
[2017-05-29 20:00] VITALS: BP 141/82
[2017-05-29] MEDS: AMOXICILLIN TRIHYDRATE 250 MG CAPSULE PO SCH (21:09)
[2017-05-29] MEDS: INSULIN GLARGINE, 100 UNIT/ML CARTRIDGE SQ SCH (23:10)
[2017-05-30] VITALS: BP 154/82
[2017-05-30] MEDS: hydrALAZINE HCL 10 MG TABLET GT SCH ×4 (01:08→17:27)
[2017-05-30] MEDS: IPRATROPIUM NEB FS 0.5 MG/2.5 ML AMPUL.NEB IH SCH ×4 (02:21→19:20)
[2017-05-30] MEDS: ALBUTEROL FS 2.5 MG/0.5 ML VIAL.NEB IH SCH ×4 (02:21→19:20)
[2017-05-30 04:00] VITALS: BP 137/82
[2017-05-30] MEDS: AMOXICILLIN TRIHYDRATE 250 MG CAPSULE PO SCH ×3 (05:00→20:13)
[2017-05-30] MEDS: BLOOD SUGAR DIAGNOSTIC 1 EACH STRIP IN SCH ×3 (05:29→17:26)
[2017-05-30] MEDS: INSULIN REGULAR, HUMAN 100 UNIT/ML 3 ML VIAL SQ PRN ×3 (05:36→17:31)
[2017-05-30 07:15] LABS: CALCIUM, SERUM 7.9 mg/dL (8.5-10.1)
--- NOTE | 2017-05-30 07:24 | NUR ---
BEAM BUILDER HELPER CLOSING NOTE PT REMAINED STABLE DURING SHIFT. NO ACUTE DISTRESS NOTED. ALL NEEDS ATTENDED TO PROMPTLY. REPOSITIONED Q2H. TRACH IN PLACE. SUCTIONED NEEDED AND WELL TOLERATED. WILL ENDORSE TO NEXT SHIFT FOR CONTINUITY OF CARE.
--- NOTE | 2017-05-30 07:50 | NUR ---
FINE CHEMICALS OPERATOR NOTES PT IN BED, ASLEEP, RESPIRATIONS NORMAL AND NOT LABORED, NO SIGN OF PAIN OR DISCOMFORT, KEPT WARM AND COMFORTABLE, GT FEEDING INFUSING WELL, CALL LIGHT WITHIN REACH.
[2017-05-30 08:00] VITALS: BP 160/71
[2017-05-30] MEDS: LEVETIRACETAM SOL (5 ML) 100 MG/ML UDC GT SCH ×2 (08:12→16:35)
[2017-05-30] MEDS: ACETAMINOPHEN 650 MG/20.3 ML UDC GT SCH (08:12)
[2017-05-30] MEDS: PANTOPRAZOLE 40 MG/PACK PACK NG SCH (08:13)
[2017-05-30] MEDS: Z GUARD REMEDY 2 OZ OINT TP SCH (08:13)
[2017-05-30] MEDS: FERROUS SULFATE UDC 300 MG/5 ML UDC GT SCH (08:13)
[2017-05-30] MEDS: MULTIVIT, IRON, MIN NO. 8, FA 1 TAB GT SCH (08:13)
[2017-05-30] MEDS: HEPARIN SODIUM, PORCINE 5000 UNITS/1 ML VIAL SQ SCH (09:00)
--- NOTE | 2017-05-30 09:00 | NUR ---
DRILLER BRAKE LINING NOTES HEPARIN NOT GIVEN, LOW H/H
[2017-05-30 12:00] VITALS: BP 158/76
--- NOTE | 2017-05-30 12:30 | NUR ---
RN MS NOTES PT'S DAUGHTER NEELA SPOKE WITH DR. IBRAHIM, PLAN OF CARE DISCUSSED, VERBALIZED UNDERSTANDING, DAUGHTER DOES NOT WANT TO GIVE CONSENT FOR BLOOD TRANSFUSION AT THIS TIME, STATED THAT SHE WILL DISCUSS IT FIRST WITH HER SISTER.
[2017-05-30 16:00] VITALS: BP 166/73
[2017-05-30] MEDS ORDERED: LIDOCAINE 1% INJ 50 ML MDV IJ ONE (17:30)
--- NOTE | 2017-05-30 18:30 | NUR ---
RN MS NOTES PT IN BED, ASLEEP, EASY TO AROUSE, NO FACIAL GRIMACING OR MOANING, RESPIRATIONS NORMAL, GT FEEDING INFUSING WELL, F/C INTACT AND PATENT, DRAINING WELL WITH CLEAR, YELLOW URINE, TURNED AND REPOSITIONED Q2 HOURS, SEEN BY ISSA FOR WOUND CONSULTATION, ORDERS GIVEN, PM MEDS GIVEN, ALL NEEDS ATTENDED.
--- NOTE | 2017-05-30 19:15 | NUR ---
RN NOTES RECEIVED PT AWAKE, NONVERBAL, LOOKS PALE. HOB ELEVATED WITH COOL AEROSOL AT 5LPM O2 WITH GOOD SATURATION. GT INTACT WITH ONGOING GLYTROL AT 60 ML/HR. AND TOLERATED WELL. RIGHT UPPER ARM MIDLINE PATENT AND INTACT. GILLIAM CATH INTACT WITH CLEAR YELLOW URINE OUTPUT NOTED. WILL TURN AND REPOSITION Q2H. KEPT CLEAN AND DRY. WILL CONTINUE TO MONITOR PT.
[2017-05-30 20:00] VITALS: BP 141/78
[2017-05-30] MEDS: INSULIN GLARGINE, 100 UNIT/ML CARTRIDGE SQ SCH (21:28)
[2017-05-30] MEDS: GLYTROL 1,000 ML BAG GT PRN (21:47)
[2017-05-31] VITALS: BP 144/81
[2017-05-31] MEDS: BLOOD SUGAR DIAGNOSTIC 1 EACH STRIP IN SCH ×5 (00:20→23:38)
[2017-05-31] MEDS: INSULIN REGULAR, HUMAN 100 UNIT/ML 3 ML VIAL SQ PRN ×5 (00:22→23:44)
[2017-05-31] MEDS: hydrALAZINE HCL 10 MG TABLET GT SCH ×5 (00:28→23:39)
[2017-05-31] MEDS: ALBUTEROL FS 2.5 MG/0.5 ML VIAL.NEB IH SCH ×4 (01:54→19:50)
[2017-05-31] MEDS: IPRATROPIUM NEB FS 0.5 MG/2.5 ML AMPUL.NEB IH SCH ×4 (01:54→19:50)
[2017-05-31 04:00] VITALS: BP 143/81
[2017-05-31] MEDS: AMOXICILLIN TRIHYDRATE 250 MG CAPSULE PO SCH ×3 (05:08→20:44)
--- NOTE | 2017-05-31 06:44 | NUR ---
RN MS NOTES PT IN ASLEEP, EASY TO AROUSE, NO SIGNS OF DISTRESS AND DISCOMFORT NOTED. GT FEEDING INFUSING WELL, F/C INTACT AND PATENT, DRAINING WELL WITH CLEAR, YELLOW URINE. KEPT PT CLEAN AND DRY, TURNED AND REPOSITIONED Q2 HOURS. ALL DUE MEDS GIVEN. WILL CONTINUE TO MONITOR WILL ENDORSE TO MORNING RN FOR CONTINUITY OF CARE.
[2017-05-31 07:03] LABS: CALCIUM, SERUM 8.1 mg/dL (8.5-10.1); CREATININE 1.1 mg/dL (0.6-1.3); POTASSIUM 4.1 mmol/L (3.5-5.1)
--- NOTE | 2017-05-31 07:40 | NUR ---
MS RN NOTES RECEIVED PT LYING @ MODERATE HIGH BACKREST POSITION IN NO ACUTE SIGNS OF DISTRESS. OBTUNDED, NON-VERBAL AND PALE. PT ON COOL AEROSOL TRACH COLLAR AT 5LPM, BREATHING WELL WITH NO SOB NOTED. GT INTACT AND PATENT WITH GLYTROL @ 60 ML/HR, IN PROGRESS, TOLERATING WELL. RIGHT UPPER ARM MIDLINE PATENT AND INTACT. GILLIAM CATH INTACT WITH CLEAR YELLOW URINE OUTPUT NOTED TO BEDSIDE DRAINAGE BAG. WILL TURN AND REPOSITION Q2H AND PRN. BED IN LOW /LOCKED POSITION WITH SIDERAILS UP. WILL CONTINUE TO MONITOR PT ACCORDINGLY.
[2017-05-31 08:00] VITALS: BP 153/79
[2017-05-31] MEDS: MULTIVIT, IRON, MIN NO. 8, FA 1 TAB GT SCH (09:20)
[2017-05-31] MEDS: LEVETIRACETAM SOL (5 ML) 100 MG/ML UDC GT SCH ×2 (09:21→16:47)
[2017-05-31] MEDS: PANTOPRAZOLE 40 MG/PACK PACK NG SCH (09:21)
[2017-05-31] MEDS: FERROUS SULFATE UDC 300 MG/5 ML UDC GT SCH (09:21)
[2017-05-31] MEDS: ACETAMINOPHEN 650 MG/20.3 ML UDC GT SCH (09:21)
[2017-05-31] MEDS: Z GUARD REMEDY 2 OZ OINT TP SCH (09:22)
[2017-05-31 12:00] VITALS: BP 162/88
[2017-05-31] MEDS: ACETAMINOPHEN 650 MG/20.3 ML UDC GT PRN (13:32)
[2017-05-31] MEDS: GLYTROL 1,000 ML BAG GT PRN (15:53)
[2017-05-31 16:00] VITALS: BP 139/79
--- NOTE | 2017-05-31 17:30 | NUR ---
RN NOTES CONSENT FOR DEBRIDEMENT OF SACRAL, LEFT AND RIGHT BUTTOCKS WOUNDS OBTAINED FROM DAUGHTER AFTER EXPLAINING THE PROCEDURES AND THE BENEFITS OF HAVING IT DONE. DAUGHTER VERBALIZED UNDERSTANDING.
--- NOTE | 2017-05-31 18:43 | NUR ---
MS RN CLOSING NOTES PT LYING COMFORTABLY IN BED. OBTUNDED, NON-VERBAL AND OPEN HER EYES TO TACTILE STIMULI. NO SIGNIFICANT CHANGES NOTED THROUGHOUT THE DAY. DAUGHTER VISITED. PT ON COOL AEROSOL T-PIECE AT 5LPM, BREATHING WELL WITH NO SOB NOTED. GT INTACT AND PATENT WITH GLYTROL @ 60 ML/HR, IN PROGRESS, TOLERATING WELL. RIGHT UPPER ARM MIDLINE PATENT AND INTACT. GILLIAM CATH INTACT WITH CLEAR YELLOW URINE OUTPUT NOTED TO BEDSIDE DRAINAGE BAG. TURNED AND REPOSITIONED Q2H AND PRN. KEPT BED IN LOW /LOCKED POSITION WITH SIDE-RAILS UP. ALL NEEDS AND CARE PROVIDED WELL. WILL ENDORSED TO CUSTOMER RELATIONS COORDINATOR NURSE FOR LEONARD..
--- NOTE | 2017-05-31 19:30 | NUR ---
MS RN OPENING NOTES: PATIENT IN BED, OBTUNDED, ON O2 VIA T PIECE WITH FIO2 AT 28 %/ 5 LPM. BREATHING EVEN AND UNLABORED. BREATH SOUNDS CLEAR TO AUSCULTATION. O2 SAT AT 100%. REBECA MIDLINE INTACT AND PATENT TO FLUSH. WITH G TUBE FEEDING OF GLYTROL RUNNING AT 60 ML/HR. GILLIAM CATHETER IN PLACE DRAINING DARK YELLOW URINE. PROVIDED FOR COMFORT AND SAFETY. BED IN LOWEST AND LOCKED POSITION, SIDERAILS UP X3. WILL CONT TO MONITOR.
[2017-05-31 20:00] VITALS: BP 126/70
[2017-05-31] MEDS: INSULIN GLARGINE, 100 UNIT/ML CARTRIDGE SQ SCH (21:02)
[2017-06-01] VITALS: BP 145/81
[2017-06-01] MEDS: ALBUTEROL FS 2.5 MG/0.5 ML VIAL.NEB IH SCH ×4 (01:18→19:24)
[2017-06-01] MEDS: IPRATROPIUM NEB FS 0.5 MG/2.5 ML AMPUL.NEB IH SCH ×4 (01:18→19:24)
[2017-06-01 03:00] VITALS: BP 146/83
--- NOTE | 2017-06-01 03:30 | NUR ---
RN NOTES: REPORT FOR LEONARD GIVEN TO TABATHA MULTANI. PATIENT WAS TRANSFERRED TO [facility] ROOM 203 VIA GURNEY, ACCOMPANIED BY RT MERON JP, RAMY AND RN, IN STABLE CONDITION.
--- NOTE | 2017-06-01 04:20 | NUR ---
RECEIVED TRANSFERRED FROM [facility] VIA BED TO BED, REPORT GIVEN BY TABATHA BERNSTEIN. PATIENT IS NON-VERBAL, WITH TRACH T-PIECE. STABLE CONDITION. NON-VERBAL, OBTUNDED, OPENS EYES INTERMITTENTLY. VITALS STABLE. NO APPARENT DISTRESS NOTED.
--- NOTE | 2017-06-01 04:33 | NUR ---
RN NOTES: REPORT FOR LEONARD GIVEN TO TABATHA JOHN. PATIENT TRANSFERRED TO [facility] 2 ROOM 207 IN STABLE CONDITION, VIA [facility], ACCOMPANIED BY TABATHA HUTTON AND RAMY PENALOZA. BELONGINGS CHECKED. Addendum: 06/01/17 at 0436 by RIZWANA GOOD RN WRONG DOCUMENTATION. PLEASE DISREGARD
[2017-06-01] MEDS: AMOXICILLIN TRIHYDRATE 250 MG CAPSULE PO SCH ×3 (05:05→23:44)
[2017-06-01] MEDS: INSULIN REGULAR, HUMAN 100 UNIT/ML 3 ML VIAL SQ PRN ×3 (05:23→17:28)
[2017-06-01] MEDS: BLOOD SUGAR DIAGNOSTIC 1 EACH STRIP IN SCH ×4 (05:26→23:40)
--- NOTE | 2017-06-01 05:27 | NUR ---
ACCUCHECK 157 MG/DL, 2 UNITS REG. INSULIN SC ADMINISTERED.
--- NOTE | 2017-06-01 07:17 | NUR ---
HYDRALAZINE 10 M,G TAB VIA G-TUBE NOT ADMINISTERED DUE AT 0630, NOT AVAILABLE IN THE [facility], TALKED TO PHARMACIST AT 0645. ENFORSED TO TABATHA ROWAN, SHE SAID THAT SHE WILL GIVE IT LATER WHEN IT IS AVAILABLE.
--- NOTE | 2017-06-01 07:54 | NUR ---
MS/RN Patient received Patient received from night shift supervisor. Trach portex #9 to cool aerosol, saturation 99%, blood pressure elevated, will administered morning medications and recheck. Appears comfortable, no signs of pain or distress. Safety measures in place, will continue to monitor and ensure safety.
[2017-06-01 08:08] VITALS: BP 179/86
[2017-06-01] MEDS: MULTIVIT, IRON, MIN NO. 8, FA 1 TAB GT SCH (08:24)
[2017-06-01] MEDS: FERROUS SULFATE UDC 300 MG/5 ML UDC GT SCH (08:24)
[2017-06-01] MEDS: ACETAMINOPHEN 650 MG/20.3 ML UDC GT SCH (08:24)
[2017-06-01] MEDS: LEVETIRACETAM SOL (5 ML) 100 MG/ML UDC GT SCH ×2 (08:24→17:25)
[2017-06-01] MEDS: PANTOPRAZOLE 40 MG/PACK PACK NG SCH (08:24)
[2017-06-01] MEDS: Z GUARD REMEDY 2 OZ OINT TP PRN (08:25)
[2017-06-01] MEDS: hydrALAZINE HCL 10 MG TABLET GT SCH ×4 (08:30→23:45)
[2017-06-01] MEDS: Z GUARD REMEDY 2 OZ OINT TP SCH (08:31)
--- NOTE | 2017-06-01 09:00 | NUR ---
MS/RN Medications Morning medications administered via GT.
[2017-06-01 12:08] LABS: CALCIUM, SERUM 8.2 mg/dL (8.5-10.1); POTASSIUM 4.6 mmol/L (3.5-5.1)
[2017-06-01] MEDS ORDERED: LIDOCAINE 2% 20 ML MDV TP ONE (12:30)
[2017-06-01] MEDS ORDERED: SILVER NITRATE APPLICATOR 1 EA BOX TP ONE (12:30)
[2017-06-01] MEDS: FUROSEMIDE 40 MG/4 ML VIAL IV SCH ×2 (13:23→17:25)
--- NOTE | 2017-06-01 13:59 | NUR ---
MS/RN S/B Dr Raymundo Seen by Dr Raymundo - patient for possible discharge tomorrow back to SNF. Made aware that blood pressure remains elevated, new orders given. -hydralazine 25mg Q6hrs -lasix 40 IVP Q8hrs -amoxicillin BID
--- NOTE | 2017-06-01 14:30 | NUR ---
MS/RN S/B Dr Gallagher Seen by Dr Gallagher - debridement of bilateral buttock wounds at bedside carried out. Dressings noted to be soaked, per Dr Gallagher, just reinforce.
[2017-06-01] MEDS ORDERED: LIDOCAINE 1%-EPI 1:100,000 20 ML VIAL TP ONE (15:00)
[2017-06-01 16:00] VITALS: BP 143/71
--- NOTE | 2017-06-01 19:07 | NUR ---
MS/RN End note Patient remains in stable condition. Saturation >95% on cool aerosol. Dressings clean and dry. All medications administered as ordered via GT. Per Dr Raymundo - patient is for discharge to SNF tomorrow.
[2017-06-01 20:00] VITALS: BP 154/89
--- NOTE | 2017-06-01 20:00 | NUR ---
R N NOTES RECEIVED PT AWAKE ON BED, OPEN EYES, NON-VERBAL, TRACH CONNECTED TO COOLAEROSOL, F/C DRAINING CLEAR YELLOW URINE, G-TUBE FEEDING , NO RESIDUAL NOTED, CALL LIGHT WITHIN REACH, SIDERIALS UPX2 , CONTINUE TO MONITOR
[2017-06-01] MEDS: INSULIN GLARGINE, 100 UNIT/ML CARTRIDGE SQ SCH (23:46)
--- NOTE | 2017-06-02 00:45 | NUR ---
MS MAYS NOTES LATEST BP 154/75,PULSE-98,DUE APRESOLINE 25MG/GR GIVEN SCHEDULED Addendum: 06/03/17 at 0100 by DORA GUALLPA RN AMELIE NOTES ADMINISTERED AT 0045 ON 06/03/17
[2017-06-02] MEDS: IPRATROPIUM NEB FS 0.5 MG/2.5 ML AMPUL.NEB IH SCH ×4 (01:35→20:16)
[2017-06-02] MEDS: ALBUTEROL FS 2.5 MG/0.5 ML VIAL.NEB IH SCH ×4 (01:35→20:16)
[2017-06-02] MEDS: GLYTROL 1,000 ML BAG GT PRN (04:49)
[2017-06-02] MEDS: HYDROGEL DRESSING 90 GM TUBE TP SCH ×3 (04:50→18:24)
[2017-06-02] MEDS: BLOOD SUGAR DIAGNOSTIC 1 EACH STRIP IN SCH ×4 (05:27→23:11)
[2017-06-02] MEDS: hydrALAZINE HCL 10 MG TABLET GT SCH ×3 (07:00→18:26)
[2017-06-02] MEDS: MULTIVIT, IRON, MIN NO. 8, FA 1 TAB GT SCH (08:38)
[2017-06-02] MEDS: LEVETIRACETAM SOL (5 ML) 100 MG/ML UDC GT SCH ×2 (08:38→16:24)
[2017-06-02] MEDS: FERROUS SULFATE UDC 300 MG/5 ML UDC GT SCH (08:38)
[2017-06-02] MEDS: ACETAMINOPHEN 650 MG/20.3 ML UDC GT SCH (08:38)
[2017-06-02] MEDS: FUROSEMIDE 40 MG/4 ML VIAL IV SCH ×2 (08:38→16:24)
[2017-06-02] MEDS: PANTOPRAZOLE 40 MG/PACK PACK NG SCH (08:39)
--- NOTE | 2017-06-02 08:39 | NUR ---
RN NOTES AWAKE, DRESSING ON THE BUTTOCKS WAS CHANGE, MORNING CARE RENDERED, NO RESIDUAL NOTED ON THE G-TUBE, PT NEEDS ATTENDED
[2017-06-02 08:44] VITALS: BP 171/85
[2017-06-02] MEDS: Z GUARD REMEDY 2 OZ OINT TP SCH (08:49)
[2017-06-02] MEDS: Z GUARD REMEDY 2 OZ OINT TP PRN (08:49)
[2017-06-02 09:01] LABS: BASOPHILS % (AUTO) 0.4 % (0.0-2.0); EOSINOPHILS # (AUTO) 0.2 /CMM (0.0-0.7); EOSINOPHILS % (AUTO) 2.1 % (0.0-6.0); HEMATOCRIT 22 % (33-45); HEMOGLOBIN 7.3 g/dL (11.5-14.8); LYMPHOCYTES # (AUTO) 1.6 /CMM (0.8-4.8); LYMPHOCYTES % (AUTO) 21.9 % (20.0-44.0); MEAN CORPUSCULAR HEMOGLOBIN 31 PG (26.0-33.0); MEAN CORPUSCULAR HGB CONC 33 g/dl (31.0-36.0); MEAN CORPUSCULAR VOLUME 92 fL (82-100); MONOCYTES # (AUTO) 0.4 /CMM (0.1-1.30); MONOCYTES % (AUTO) 5.4 % (2.0-12.0); NEUTROPHILS # (AUTO) 5.1 /CMM (1.8-8.9); NEUTROPHILS % (AUTO) 70.2 % (43.0-81.0); PLATELET COUNT (AUTO) 443 /CMM (150-450); RDW COEFFICIENT OF VARIATION 16.1 (11.5-15.0); RED BLOOD CELL COUNT(AUTO) 2.38 MIL/uL (4.0-5.2); WHITE BLOOD COUNT (AUTO) 7.3 K/uL (4.3-11.0)
[2017-06-02 09:18] LABS: CALCIUM, SERUM 8.3 mg/dL (8.5-10.1); MAGNESIUM 1.6 mg/dL (1.8-2.4); PHOSPHORUS 3.8 mg/dL (2.5-4.9); POTASSIUM 4.3 mmol/L (3.5-5.1)
--- NOTE | 2017-06-02 10:36 | NUR ---
RN OPENING NOTES RECEIVED PT. PT IS STABLE AND RESTING IN BED. PT IS TRACHED BUT NOT DEPENDENT ON VENT. NON-VERBAL. NO S/S OF RESP DISTRESS OR SOB. NO C/O PAIN AT THIS TIME. IV ACCESS LOCATED ON RIGHT UPPER EXTREMITY, CURRENTLY SL. FC PATENT AND IN PLACE. SAFETY MEASURES IN PLACE, CALL LIGHT WITHIN REACH. WILL CONTINUE TO MONITOR.
[2017-06-02] MEDS: AMOXICILLIN TRIHYDRATE 250 MG CAPSULE PO SCH ×2 (12:39→21:30)
[2017-06-02] MEDS: INSULIN REGULAR, HUMAN 100 UNIT/ML 3 ML VIAL SQ PRN ×3 (12:52→23:17)
[2017-06-02 16:15] VITALS: BP 139/80
--- NOTE | 2017-06-02 19:05 | NUR ---
RN CLOSING NOTES PT IN BED RESTING. NO S/S OF RESP DISTRESS OR SOB. PT DOES NOT APPEAR TO BE IN PAIN AT THIS TIME. DRESSING CHANGED ON RIGHT BUTTOCKS. ALL PT NEEDS ANTICIPATED AND MET. SAFETY MEASURES IN PLACE, CALL LIGHT WITHIN REACH. WILL ENDORSE TO HEDIS MANAGER FOR LEONARD.
--- NOTE | 2017-06-02 19:30 | NUR ---
MS RN NOTES ON BED SLEEPING,NON VERBAL,ON TRACH TO COOL AEROSOL,PORTEX #9,OPEN EYES TO CARE.WITH RIGHT UPPER ARM MIDLINE INTACT AND PATENT.GILLIAM CATH IN PLACE DRAINING YELLOWISH WITH SEDIMENT URINE.KCI MATTRESS IN USED FOR WOUND MANAGEMENT.GLYTROL FEEDING 60ML/HR RATE IN PROGRESS VIA GT,NO RESIDUAL NOTED.NO LOOSE BM NOTED.REPOSITION Q 2 HOURS PER PROTOCOL.WILL CONTINUE TO MONITOR STATUS.
[2017-06-02 20:00] VITALS: BP 143/74
[2017-06-02 20:37] VITALS: BP 143/74
[2017-06-02] MEDS: INSULIN GLARGINE, 100 UNIT/ML CARTRIDGE SQ SCH (23:18)
--- NOTE | 2017-06-03 00:45 | NUR ---
MS RN NOTES LATEST BP 154/75,PULSE-98,DUE APRESOLINE 25MG/GR GIVEN SCHEDULED
[2017-06-03] MEDS: hydrALAZINE HCL 10 MG TABLET GT SCH (00:47)
[2017-06-03] MEDS: ALBUTEROL FS 2.5 MG/0.5 ML VIAL.NEB IH SCH ×4 (01:55→18:52)
[2017-06-03] MEDS: IPRATROPIUM NEB FS 0.5 MG/2.5 ML AMPUL.NEB IH SCH ×4 (01:55→18:52)
[2017-06-03] MEDS: AMOXICILLIN TRIHYDRATE 250 MG CAPSULE PO SCH ×3 (04:29→22:12)
[2017-06-03] MEDS: GLYTROL 1,000 ML BAG GT PRN (04:34)
[2017-06-03] MEDS: BLOOD SUGAR DIAGNOSTIC 1 EACH STRIP IN SCH ×3 (05:29→17:17)
[2017-06-03] MEDS: HYDROGEL DRESSING 90 GM TUBE TP SCH ×2 (05:30→17:18)
[2017-06-03 06:32] LABS: CALCIUM, SERUM 8.7 mg/dL (8.5-10.1); CREATININE 1.1 mg/dL (0.6-1.3); POTASSIUM 4.9 mmol/L (3.5-5.1)
--- NOTE | 2017-06-03 06:43 | NUR ---
MS RN NOTES NO SIGNIFICANT CHANGE IN STATUS.SUCTION MUCUS NEEDED.DRESSING CHANGE DONE TO RIGHT BUTTOCK.GT FEEDING TOLERATED WELL.NO RESIDUAL,NO LOOSE BM NOTED.MORNING CARE RENDERED TOLERATED WELL.GILLIAM DRAINS WELL.IN NO ACUTE DISTRESS.WILL ENDORSE TO DAY NURSE FOR LEONARD.
[2017-06-03 06:49] VITALS: BP 165/81
--- NOTE | 2017-06-03 07:12 | NUR ---
RN OPENING NOTES RECEIVED PT. PT IS STABLE AND RESTING IN BED. NO S/S OF RESP DISTRESS OR SOB. PT IS TRACHED, PORTEX 9, HOWEVER NOT DEPENDENT ON VENT. PT DOES NOT APPEAR TO BE IN PAIN. FC IN PLACE AND PATENT. IV ACCESS LOCATED ON RUE, MIDLINE CURRENTLY SL. GT FEEDING OF GLYTROL RUNNING AT 60 ML/HR. SAFETY MEASURES IN PLACE, CALL LIGHT WITHIN REACH. WILL CONTINUE TO MONITOR.
[2017-06-03] MEDS: hydrALAZINE HCL 25 MG TABLET GT SCH ×3 (07:21→17:17)
[2017-06-03 08:00] VITALS: BP 155/79
[2017-06-03] MEDS: ACETAMINOPHEN 650 MG/20.3 ML UDC GT SCH (08:08)
[2017-06-03] MEDS: FUROSEMIDE 40 MG/4 ML VIAL IV SCH ×2 (08:08→17:14)
[2017-06-03] MEDS: MULTIVIT, IRON, MIN NO. 8, FA 1 TAB GT SCH (08:08)
[2017-06-03] MEDS: FERROUS SULFATE UDC 300 MG/5 ML UDC GT SCH (08:08)
[2017-06-03] MEDS: PANTOPRAZOLE 40 MG/PACK PACK NG SCH (08:08)
[2017-06-03] MEDS: LEVETIRACETAM SOL (5 ML) 100 MG/ML UDC GT SCH ×2 (08:08→17:14)
[2017-06-03] MEDS: Z GUARD REMEDY 2 OZ OINT TP SCH (08:09)
[2017-06-03] MEDS: INSULIN REGULAR, HUMAN 100 UNIT/ML 3 ML VIAL SQ PRN ×2 (11:51→17:26)
[2017-06-03 16:00] VITALS: BP 125/70
--- NOTE | 2017-06-03 19:15 | NUR ---
RN CLOSING NOTES PT IN BED RESTING. NO S/S OF RESP DISTRESS OR SOB. PT DOES NOT APPEAR TO BE IN PAIN. ALL PT NEEDS ANTICIPATED AND MET. SAFETY MEASURES IN PLACE, CALL LIGHT IN REACH. WILL ENDORSE TO DONOR SPECIALIST FOR LEONARD.
[2017-06-03 20:00] VITALS: BP 147/78
[2017-06-03] MEDS: INSULIN GLARGINE, 100 UNIT/ML CARTRIDGE SQ SCH (22:00)
--- NOTE | 2017-06-03 22:20 | NUR ---
MS RN NOTE BEBETO HELD. BLOOD SUGAR 113. WILL CONTINUE TO MONITOR.
[2017-06-04] MEDS: ALBUTEROL FS 2.5 MG/0.5 ML VIAL.NEB IH SCH ×4 (00:47→20:50)
[2017-06-04] MEDS: IPRATROPIUM NEB FS 0.5 MG/2.5 ML AMPUL.NEB IH SCH ×4 (00:47→20:50)
[2017-06-04] MEDS: BLOOD SUGAR DIAGNOSTIC 1 EACH STRIP IN SCH ×4 (01:21→18:00)
[2017-06-04] MEDS: hydrALAZINE HCL 25 MG TABLET GT SCH ×4 (01:21→18:01)
--- NOTE | 2017-06-04 05:00 | NUR ---
MS RN NOTE AMOXICILLIN 500MG DUE. NONE LEFT IN [facility]. NONE ON 3RD FLOOR. NONE IN [facility]. WILL NOTIFY PHARMACY WHEN THEY OPEN.
--- NOTE | 2017-06-04 06:15 | NUR ---
MS RN NOTE SPOKE WITH PHARMACIST JOO. NOTIFIED HER REGARDING AMOXICILLIN NOT FOUND IN [facility].
[2017-06-04] MEDS: HYDROGEL DRESSING 90 GM TUBE TP SCH ×2 (06:26→18:00)
--- NOTE | 2017-06-04 06:30 | NUR ---
MS RN NOTE PATIENT STABLE. ALL NEEDS MET AND ATTENDED TO. WILL ENDORSE TO DAY SHIFT FOR LEONARD.
[2017-06-04 06:44] LABS: CALCIUM, SERUM 8.4 mg/dL (8.5-10.1); CREATININE 1.1 mg/dL (0.6-1.3); POTASSIUM 4.3 mmol/L (3.5-5.1)
--- NOTE | 2017-06-04 07:05 | NUR ---
RN OPENING NOTE. PT RECEIVED EYES OPEN, NON VERBAL AND UNABLE TO DETERMINE MENTAL STATUS. PT WITH TRACH, PORTEX #9 AND COOL AEROSOL AT 6LPM, NO VENT. PT UNABLE TO INDICATE PAIN AND IS WITHOUT S/S OF [id number] OR DISCOMFORT. PT WITH R UA MIDLINE INTACT AND SALINE FLUSH PATENT. PT WITH GILLIAM INTACT AND OPERATIONAL DRAINING LITE YELLOW URINE. PT GTUBE, INTACT AND FLUSHED PER ORDER.PT BED IN LOWEST LOCKED POSITION WITH HANDRAILSX4. PT BRIEFED ON TODAY'S POC, WILL REORIENTATE NEEDED.
[2017-06-04 08:55] VITALS: BP 131/78
[2017-06-04] MEDS: PANTOPRAZOLE 40 MG/PACK PACK NG SCH (08:58)
[2017-06-04] MEDS: FUROSEMIDE 40 MG/4 ML VIAL IV SCH ×2 (08:58→18:01)
[2017-06-04] MEDS: FERROUS SULFATE UDC 300 MG/5 ML UDC GT SCH (08:58)
[2017-06-04] MEDS: ACETAMINOPHEN 650 MG/20.3 ML UDC GT SCH (08:58)
[2017-06-04] MEDS: LEVETIRACETAM SOL (5 ML) 100 MG/ML UDC GT SCH ×2 (08:58→18:01)
[2017-06-04] MEDS: MULTIVIT, IRON, MIN NO. 8, FA 1 TAB GT SCH (08:58)
[2017-06-04] MEDS: Z GUARD REMEDY 2 OZ OINT TP SCH (08:59)
[2017-06-04] MEDS: AMOXICILLIN TRIHYDRATE 250 MG CAPSULE PO SCH ×2 (09:16→13:25)
--- NOTE | 2017-06-04 09:19 | NUR ---
RN NOTES. PHARMACY APPROVED LATE ADMIN OF AMOXICILLIN.
[2017-06-04] MEDS ORDERED: HYDR-4076 GT (11:40)
[2017-06-04] MEDS ORDERED: ALLA266C2 TP (11:40)
[2017-06-04] MEDS ORDERED: AMOX250C PO (11:40)
[2017-06-04] MEDS: INSULIN REGULAR, HUMAN 100 UNIT/ML 3 ML VIAL SQ PRN (12:38)
[2017-06-04 15:40] VITALS: BP 112/65
[2017-06-04] MEDS: ACETAMINOPHEN 650 MG/20.3 ML UDC GT PRN (18:09)
--- NOTE | 2017-06-04 19:27 | NUR ---
RN CLOSING NOTE. PT REMAINS EYES OPEN, NON VERBAL AND UNABLE TO DETERMINE MENTAL STATUS. PT WITH TRACH, PORTEX #9 AND COOL AEROSOL AT 6LPM, NO VENT. PT IS WITHOUT S/S OF DISTRESS OR DISCOMFORT. PT MIDLINE, GTUBE AND GILILAM INTACT AND OPERATIONAL. PT WOUND CARE COMPETED PER ORDER. PT BED IN LOWEST LOCKED POSITION WITH HANDRAILSX4. ALL NURSE DUTIES COMPLETE. ENDORSED TO NIGHT NURSE.
--- NOTE | 2017-06-04 19:35 | NUR ---
MS RN OPENING NOTS PT RECEIVED IN BED WITH EYES OPEN, NON VERBAL AND UNABLE TO DETERMINE MENTAL STATUS. PT WITH TRACH, PORTEX #9 & COOL AEROSOL AT 6LPM, NOT VENT DEPENDENT. NO S/S OF PAIN OR [id number]/DISCOMFORT. PT WITH REBECA MIDLINE INTACT AND SALINE FLUSH PATENT. PT WITH GILLIAM INTACT AND DRAINING LITE YELLOW URINE. HAS G-TUBE, INTACT AND PATENT. RESIDUAL & PLACEMENT CHECKED, FLUSHED PER ORDER. PT WILL BE DISCHARGED TO [facility], REPORT WAS GIVEN TO ANN NURSE BY AM RN. WAITING FOR AMBULANCE TO [facility] TOUGHENING OPERATOR THE PT.BED IN LOWEST LOCKED POSITION. CALL LIGHT WITHIN REACH. WILL CONTINUE TO MONITOR.
[2017-06-04 20:00] VITALS: BP 111/72
--- NOTE | 2017-06-04 20:47 | NUR ---
DISCHARGED PT TO SNF AMBULANCE ARRIVED TO METAL CUT OFF SAW TENDER THE PATIENT. REPORT GIVEN TO EMT. PT IN STABLE CONDITION, V/S CHECKED 111/72, 86, 18, 100 %, 98.4. MIDLINE REMOVED, PRESSURE DRESSING APPLIED, NO BLEEDING NOTED. ALL PAPER WORK & BELONGINGS GIVEN TO EMT'S. ID BAND REMOVED. GILLIAM CATH & GT IN PLACE UPON DISCHARGE. SNF ( [facility], NURSE ) AWARE. PT ON TRACH, RT PRESENT @ BEDSIDE TO ASSIST EMT'S TO CONNECT THE PT TO O2 EQUIPMENT AVAILABLE WITH EMT'S. NO LEONARD NOTED. PT LEFT THE HOSPITAL IN STABLE CONDITION.
== END 2017-06-04 20:47 | DRG 853 ==
LOC: ER 08:26 → TELE-TD 12:18 → TELE1 05-26 17:06 → MEDSG1 05-30 10:23 → MEDSG2 06-01 03:10
PROVIDERS: ADMIT Internal Medicine Nephrology; ATTEND Internal Medicine Nephrology
PROC: 05H533Z Insertion of Infusion Device into Right Subclavian Vein, Percutaneous Approach (ICD-10-PCS; 2017-05-28)
PROC: 0KBP0ZZ Excision of Left Hip Muscle, Open Approach (ICD-10-PCS; principal; 2017-06-01)
PROC: 0KBN0ZZ Excision of Right Hip Muscle, Open Approach (ICD-10-PCS; 2017-06-01)
DX: A41.9 Sepsis, unspecified organism (principal); K72.00 Acute and subacute hepatic failure without coma; R65.21 Severe sepsis with septic shock; I21.A1 Myocardial infarction type 2; G93.40 Encephalopathy, unspecified; J18.9 Pneumonia, unspecified organism; J96.10 Chronic respiratory failure, unspecified whether with hypoxia or hypercapnia; L89.214 Pressure ulcer of right hip, stage 4; L89.224 Pressure ulcer of left hip, stage 4; N17.9 Acute kidney failure, unspecified; J44.0 Chronic obstructive pulmonary disease with (acute) lower respiratory infection; E87.0 Hyperosmolality and hypernatremia; N39.0 Urinary tract infection, site not specified; J98.11 Atelectasis; E11.22 Type 2 diabetes mellitus with diabetic chronic kidney disease; Z93.0 Tracheostomy status; Z93.1 Gastrostomy status; G40.909 Epilepsy, unspecified, not intractable, without status epilepticus; K21.9 Gastro-esophageal reflux disease without esophagitis; Z86.73 Personal history of transient ischemic attack (TIA), and cerebral infarction without residual deficits; Z87.440 Personal history of urinary (tract) infections; Z88.2 Allergy status to sulfonamides; D64.9 Anemia, unspecified; R74.0 Nonspecific elevation of levels of transaminase and lactic acid dehydrogenase [LDH]; R13.10 Dysphagia, unspecified; L98.8 Other specified disorders of the skin and subcutaneous tissue; B95.2 Enterococcus as the cause of diseases classified elsewhere; I12.9 Hypertensive chronic kidney disease with stage 1 through stage 4 chronic kidney disease, or unspecified chronic kidney disease; Z79.4 Long term (current) use of insulin
CPT/HCPCS: 31720; 36415; 36569; 36600; 71045-TC; 80048-TC; 80053-TC; 80076-TC; 80202-TC; 81000-TC; 82272-TC; 82728-TC; 82803-TC; 82962-TC; 83540-TC; 83605-TC; 83735-TC; 83880; 84100-TC; 84484-TC; 85025-TC; 85730-TC; 86850-TC; 86921-TC; 87040-TC; 87081-TC; 87086-TC; 87186-TC; 87400; 93307-TC; 94640-TC; 94760-TC; 94762-TC; 94799-TC; A4216; A4217; A4606; A6402; A6403; J0885; J1644; J1815; J1940; J1953; J2185; J2543; J3370; J3475; J3490; J7030; J7040; J7050; J7060; Z7610

== ENCOUNTER 2017-08-11 21:09 | Inpatient (IN) | payer MEDICARE, OTHER ==
[~2017-08-11] VITALS: Ht 165.1 cm; Wt 77.1 kg
[~2017-08-11 21:09] MED LIST changes: +ALLA266C2 TP; -AMIN30LI4 GT; +AMOX250C PO; -ASCO500S2 GT; +CRAN3875 GT; +HYDR-4076 GT; +METR250T PO; +SACC250C PO; -VALS160T24 GT; +VALS160T29 GT
--- NOTE | 2017-08-11 21:28 | NUR ---
PT TO ER BED 12. PT HAS TRACH/VENT. RT AT BEDSIDE FOR VENT. [facility] FROM [facility] C/O FEVER X 1 DAY. PT ARRIVED WITH G-TUBE AND F/C. PT PLACED IN GOWN AND ON CIVIL DESIGNER. VSS/RESP EVEN UNLABORED/NAD NOTED/SKIN WARM AND DRY/DENIES N-V-D/AOX4. AWAITING MD CRAIN. DAUGHTER AT BEDSIDE.
--- NOTE | 2017-08-11 21:50 | NUR ---
20G IV TO R WRIST X 3 ATTEMPTS USING ASEPTIC TECH, BLOOD CULT X 2 AND BLOOD HANDED OVER TO THE LAB AT BEDSIDE. IV FLUSHES EASILY WITH NS, NO S/S OF INFILTRATION NOTED.
--- NOTE | 2017-08-11 22:00 | NUR ---
URINE SPECIMEN OBTAINED FROM F/C AND SENT TO THE LAB.
[2017-08-11 22:07] LABS: BASOPHILS % (AUTO) 0.2 % (0.0-2.0); EOSINOPHILS % (AUTO) 2.3 % (0.0-6.0); HEMATOCRIT 33 % (33-45); HEMOGLOBIN 10.3 g/dL (11.5-14.8); LYMPHOCYTES % (AUTO) 31.4 % (20.0-44.0); MEAN CORPUSCULAR HGB CONC 32 g/dl (31.0-36.0); MEAN CORPUSCULAR VOLUME 92 fL (82-100); MONOCYTES # (AUTO) 1.4 /CMM (0.1-1.30); MONOCYTES % (AUTO) 8.6 % (2.0-12.0); NEUTROPHILS # (AUTO) 9.3 /CMM (1.8-8.9); NEUTROPHILS % (AUTO) 57.5 % (43.0-81.0); PLATELET COUNT (AUTO) 393 /CMM (150-450); RDW COEFFICIENT OF VARIATION 14.3 (11.5-15.0); RED BLOOD CELL COUNT(AUTO) 3.53 MIL/uL (4.0-5.2); WHITE BLOOD COUNT (AUTO) 16.1 K/uL (4.3-11.0)
--- NOTE | 2017-08-11 22:15 | NUR ---
XRAY AT BEDSIDE.
[2017-08-11 22:16] LABS: APPEARANCE,URINE CLOUDY (CLEAR); BILIRUBIN,URINE NEGATIVE (NEGATIVE); BLOOD, URINE 1+ Ery/uL (NEGATIVE); COLOR,URINE YELLOW (YELLOW); KETONES,URINE NEGATIVE (NEGATIVE); LEUKOCYTE ESTERASE ,URINE 3+ (NEGATIVE); NITRITE, URINE NEGATIVE (NEGATIVE); PH,URINE 8.5 (5.0-8.0); PROTEIN,URINE 2+ mg/dl (NEGATIVE); UGLUCOSE NEGATIVE (NEGATIVE); UROBILINOGEN,URINE 0.2 EU/dL (0.2)
[2017-08-11 22:20] LABS: BACTERIA,URINE Many /HPF (None Seen); SQUAMOUS EPITHELIAL CELL,UR Few /HPF (None Seen); TRIPLE PHOSPHATE CRYSTAL,UR Moderate /HPF (None Seen); URINE AMORPHOUS PHOSPHATES Moderate /HPF (None Seen); WBC,URINE 21-50 /HPF (0-3)
[2017-08-11] MEDS ORDERED: ACETAMINOPHEN 325 MG TABLET PO ONE (22:30)
[2017-08-11 22:31] LABS: TROPONIN I 0.049 ng/mL (0.00-0.056)
[2017-08-11] MEDS ORDERED: ACETAMINOPHEN ES 500 MG TABLET ONE (22:36)
[2017-08-11 22:45] LABS: ALBUMIN 2.1 g/dL (3.4-5.0); BILIRUBIN,DIRECT 0.1 mg/dL (0.0-0.2); BILIRUBIN,TOTAL 0.3 mg/dL (0.2-1.0); CALCIUM, SERUM 8.8 mg/dL (8.5-10.1); CREATININE 0.9 mg/dL (0.6-1.3); POTASSIUM 3.8 mmol/L (3.5-5.1); TOTAL PROTEIN, SERUM 9.3 g/dL (6.4-8.2)
[2017-08-11 23:11] LABS: INR 1.01 (0.87-1.13)
--- NOTE | 2017-08-11 23:13 | NUR ---
DR DICKEY WAS PAGED
--- NOTE | 2017-08-11 23:23 | NUR ---
PT IS ASSIGNED TO [facility] RM#[id number], PT IS DIAGNOSED WITH UTI AND HYPERNATREMIA, AND DR DICKEY IS TH ACCEPTING MD.
[2017-08-11] MEDS ORDERED: CEFTRIAXONE 1GM BAG (ER ONLY) 50 ML IV ONE (23:30)
[2017-08-11] MEDS ORDERED: CEFTRIAXONE 1GM BAG (ER ONLY) 1 GM/50 ML PIGGYBACK IV ONE (23:30)
--- NOTE | 2017-08-11 23:48 | NUR ---
REPORT CALLED TO TABATHA ESPARZA FOR LEONARD.
[2017-08-12] VITALS: BP 141/79
--- NOTE | 2017-08-12 00:10 | NUR ---
PT TRANSPORTED VIA STRETCHER ON TERRAZZO HELPER TO [facility] 112-2 WITH RN AND RT PER ACLS PROTOCOL.
[2017-08-12] MEDS ORDERED: ALBUTEROL FS 2.5 MG/0.5 ML VIAL.NEB NEB PRN (00:30)
[2017-08-12] MEDS ORDERED: IPRATROPIUM NEB FS 0.5 MG/2.5 ML AMPUL.NEB NEB PRN (00:30)
--- NOTE | 2017-08-12 00:30 | NUR ---
CENSUS ENUMERATOR NOTES RECEIVED PT FROM ER. PT FROM [facility]. A&OX1, NON VERBAL, ON TELE MONITOR SR-97. GILLIAM ON ARRIVAL. PT HAS A TRACH ON COOL AEROSOL, NO SOB OR DISTRESS NOTED. R WRIST INTACT WITH IVF 0.45 NS AT 75ML/HR. PT HAS PEG TUBE FEEDING, GTF AT 60ML/HR TOLERATING WELL. PT HAS MULTIPLE WOUNDS, PIC TAKEN.ALL ADMISSION ORDERS CARRIED OUT. BED LOCKED AND IN LOWEST POSITION, CALL LIGHT WITHIN REACH, SIDE RAILS UPX3, WILL CONT TO SAUNDRA.
[2017-08-12] MEDS: ALBUTEROL FS 2.5 MG/0.5 ML VIAL.NEB NEB SCH ×4 (01:30→19:42)
[2017-08-12] MEDS: IPRATROPIUM NEB FS 0.5 MG/2.5 ML AMPUL.NEB NEB SCH ×4 (01:30→19:42)
[2017-08-12] MEDS: IV 1/2NS 1000 ML 1,000 ML IV PRN ×2 (01:42→15:30)
[2017-08-12] MEDS: GLUCERNA 1.2 1,000 ML BOTTLE GT PRN (01:51)
[2017-08-12 04:00] VITALS: BP 146/75
--- NOTE | 2017-08-12 07:03 | NUR ---
RN CLOSING NOTE NO ACUTE CHANGES ON SHIFT, PATIENT RESTED WELL AT NIGHT, NO RESPIRATORY DISTRESS NOTED, NO PAIN OR DISCOMFORT, SR ON THE MONITOR. GILLIAM CATH IS INTACT WITH, URINE HAS SEDIMENTS. GT FEED ON GOING. IV FLUIDS INFUSING AT @ 75 ML/HR. ALL SAFETY MEASURES TAKEN. WILL ENDORSE TO AM RN.
[2017-08-12 07:40] LABS: BASOPHILS % (AUTO) 0.5 % (0.0-2.0); EOSINOPHILS % (AUTO) 1.7 % (0.0-6.0); HEMATOCRIT 31 % (33-45); HEMOGLOBIN 9.9 g/dL (11.5-14.8); LYMPHOCYTES # (AUTO) 3.4 /CMM (0.8-4.8); LYMPHOCYTES % (AUTO) 32.9 % (20.0-44.0); MEAN CORPUSCULAR HGB CONC 32 g/dl (31.0-36.0); MEAN CORPUSCULAR VOLUME 92 fL (82-100); MONOCYTES # (AUTO) 0.6 /CMM (0.1-1.30); MONOCYTES % (AUTO) 5.5 % (2.0-12.0); NEUTROPHILS # (AUTO) 6.1 /CMM (1.8-8.9); NEUTROPHILS % (AUTO) 59.4 % (43.0-81.0); PLATELET COUNT (AUTO) 417 /CMM (150-450); RDW COEFFICIENT OF VARIATION 14.2 (11.5-15.0); RED BLOOD CELL COUNT(AUTO) 3.32 MIL/uL (4.0-5.2); WHITE BLOOD COUNT (AUTO) 10.3 K/uL (4.3-11.0)
[2017-08-12 07:54] LABS: CALCIUM, SERUM 8.5 mg/dL (8.5-10.1); CREATININE 0.9 mg/dL (0.6-1.3); POTASSIUM 4.2 mmol/L (3.5-5.1)
[2017-08-12 08:00] VITALS: BP 154/82
[2017-08-12] MEDS ORDERED: MAGNESIUM HYDROXIDE 30 ML UDC GT PRN (08:30)
[2017-08-12] MEDS ORDERED: BISACODYL SUPP (10 MG) 10 MG/SUPP.RECT SUPP.RECT RC PRN (08:30)
[2017-08-12] MEDS ORDERED: IPRATROPIUM NEB FS 0.5 MG/2.5 ML AMPUL.NEB IH PRN (08:30)
[2017-08-12] MEDS ORDERED: NA PHOS,M-B/NA PHOS,DI-BA 1 EA ENEMA RC PRN (08:30)
[2017-08-12] MEDS ORDERED: GLUCERNA 1.2 1,000 ML BOTTLE GT SCH (08:30)
[2017-08-12] MEDS ORDERED: ALBUTEROL FS 2.5 MG/0.5 ML VIAL.NEB IH PRN (08:30)
[2017-08-12] MEDS ORDERED: MISCELLANEOUS MED 1 EA EA GT PRN (08:30)
[2017-08-12] MEDS ORDERED: Medication Not On Formulary EA (Cran/Vitc/Mannose/Inulin/Brom (Uti-Stat Liquid) 30 ML) GT SCH (09:00)
[2017-08-12] MEDS: FERROUS SULFATE UDC 300 MG/5 ML UDC GT SCH (11:19)
[2017-08-12] MEDS: DOCUSATE SODIUM LIQ 100 MG/10 ML UDC GT SCH ×2 (11:19→17:10)
[2017-08-12] MEDS: ACETAMINOPHEN 650 MG/20.3 ML UDC GT SCH (11:20)
[2017-08-12] MEDS: LEVETIRACETAM SOL (5 ML) 100 MG/ML UDC GT SCH ×2 (11:20→17:10)
[2017-08-12] MEDS: METRONIDAZOLE 250 MG TABLET PO SCH ×2 (11:21→17:10)
[2017-08-12] MEDS: MULTIVITAMINS,THERAGRAN 1 UDTAB TABLET PO SCH (11:21)
[2017-08-12] MEDS: PANTOPRAZOLE 40 MG/PACK PACK NG SCH (11:21)
[2017-08-12] MEDS: DILTIAZEM HCL CD 120 MG PO SCH (11:22)
[2017-08-12] MEDS: BLOOD SUGAR DIAGNOSTIC 1 EACH STRIP IN SCH ×3 (11:23→23:19)
[2017-08-12] MEDS: HEPARIN SODIUM, PORCINE 5000 UNITS/1 ML VIAL SQ SCH ×2 (11:29→21:58)
[2017-08-12] MEDS: INSULIN ASPART/LISPRO 100 UNIT/ML CARTRIDGE SQ PRN ×3 (11:37→23:18)
[2017-08-12 12:00] VITALS: BP 153/79
[2017-08-12] MEDS ORDERED: IPRATROPIUM NEB FS 0.5 MG/2.5 ML AMPUL.NEB IH SCH (13:30)
[2017-08-12] MEDS ORDERED: ALBUTEROL FS 2.5 MG/0.5 ML VIAL.NEB IH SCH (13:30)
[2017-08-12 16:00] VITALS: BP 144/71
[2017-08-12] MEDS ORDERED: Z GUARD REMEDY 2 OZ OINT TP PRN (17:00)
[2017-08-12] MEDS: ACETAMINOPHEN 650 MG/20.3 ML UDC GT PRN (17:11)
--- NOTE | 2017-08-12 19:00 | NUR ---
RN NOTE PT REMAINED STABLE, VS STABLE EXCEPT FOR FEVER, BLOOD CULTURES PENDING. COOLING MEASURES IMPLEMENTED, SAFETY MONITORED WILL ENDORSE TO GLUELINE WORKER NURSE.
[2017-08-12 20:00] VITALS: BP_SYST 130; BP_SYST 162; BP_DIAS 66; BP_DIAS 72
--- NOTE | 2017-08-12 20:00 | NUR ---
RN NOTES RECEIVED PATIENT WITH EYES OPEN IN BED. NO RESPIRATORY DISTRESS NOTED. BREATHING EVEN AND UNLABORED. NO PHYSICAL MANIFESTATION OF PAIN OR DISCOMFORT. GTUBE IN PLACE, FEEDING WELL TOLERATED. HOB ELEVATED. KEPT CLEAN AND DRY. WILL CONTINUE TO MONITOR.
[2017-08-12] MEDS: ATORVASTATIN 10 MG TABLET GT SCH (22:06)
[2017-08-12] MEDS: CEFTRIAXONE 1 G in IV D5W 50 ML IV SCH ×2 (22:08→23:23)
[2017-08-12] MEDS: CEFEPIME 1 GM in IV D5W 50 ML IV SCH (23:00)
[2017-08-12] MEDS: INSULIN GLARGINE, 100 UNIT/ML CARTRIDGE SQ SCH (23:16)
[2017-08-13] VITALS: BP 154/87
[2017-08-13] MEDS ORDERED: GENTAMICIN 80 MG/2 ML VIAL ONE ×2 (00:08→05:34)
[2017-08-13] MEDS: GENTAMICIN 120 MG in IV NS 0.9% 100 ML IV SCH ×2 (00:20→05:00)
[2017-08-13] MEDS ORDERED: CEFEPIME 1 GM VIAL ONE ×2 (00:25→05:38)
[2017-08-13] MEDS: ALBUTEROL FS 2.5 MG/0.5 ML VIAL.NEB NEB SCH ×4 (01:39→19:03)
[2017-08-13] MEDS: IPRATROPIUM NEB FS 0.5 MG/2.5 ML AMPUL.NEB NEB SCH ×4 (01:39→19:03)
[2017-08-13 04:00] VITALS: BP 158/96
[2017-08-13] MEDS: CEFEPIME 1 GM in IV D5W 50 ML IV SCH ×3 (05:00→22:23)
[2017-08-13] MEDS: INSULIN ASPART/LISPRO 100 UNIT/ML CARTRIDGE SQ PRN ×4 (06:24→23:23)
[2017-08-13] MEDS: BLOOD SUGAR DIAGNOSTIC 1 EACH STRIP IN SCH ×3 (06:27→17:23)
[2017-08-13] MEDS: IV 1/2NS 1000 ML 1,000 ML IV PRN ×2 (07:19→22:38)
[2017-08-13 08:00] VITALS: BP 110/77
--- NOTE | 2017-08-13 08:00 | NUR ---
TELE1/RN AM SHIFT INITIAL NOTES RECEIVED AT AWAKE, OPEN EYES, OBTUNDED. NO GRIMACING, DISTRESS OR FEVER NOTED. ON COOL AEROSOL WITH 40% FIO2, SATURATING @ 93%, NOTED WITH RHONCHI LUNG SOUNDS, SUCTIONED FOR AIRWAY CLEARANCE. IV SITE WITH ON GOING INFUSION OF NS @ 75CC/HR, PATENT WITH NO S/S OF INFECTION. GILLIAM CATHETER INTACT WITH CLEAR YELLOW URINE OUTPUT. ON GOING GTF @ 60CC/HR, PATENT, WITH NO GASTRIC RESIDUAL, FLUSHED. PT IS COMFORTABLE, SCHEDULED AM MEDS TO BE GIVEN. CL WITHIN REACHED AND SAFETY MAINTAINED. ON GOING MONITORING. Addendum: 08/13/17 at 1202 by JADIEL RODRIGUEZ RN ADDENDUM: ON TELE MONITORING WITH SINUS RHYTHM, HR 93.
[2017-08-13] MEDS: HEPARIN SODIUM, PORCINE 5000 UNITS/1 ML VIAL SQ SCH ×2 (09:58→22:26)
[2017-08-13] MEDS: ACETAMINOPHEN 650 MG/20.3 ML UDC GT SCH (09:58)
[2017-08-13] MEDS: MULTIVITAMINS,THERAGRAN 1 UDTAB TABLET PO SCH (09:59)
[2017-08-13] MEDS: LEVETIRACETAM SOL (5 ML) 100 MG/ML UDC GT SCH ×2 (09:59→17:23)
[2017-08-13] MEDS: FERROUS SULFATE UDC 300 MG/5 ML UDC GT SCH (09:59)
[2017-08-13] MEDS: DILTIAZEM HCL CD 120 MG PO SCH (09:59)
[2017-08-13] MEDS: PANTOPRAZOLE 40 MG/PACK PACK NG SCH (10:00)
[2017-08-13] MEDS: DOCUSATE SODIUM LIQ 100 MG/10 ML UDC GT SCH ×2 (10:01→17:23)
[2017-08-13] MEDS: VALSARTAN 80 MG TABLET GT SCH (10:01)
[2017-08-13] MEDS: METRONIDAZOLE 250 MG TABLET PO SCH ×2 (10:02→17:23)
[2017-08-13 12:00] VITALS: BP 113/69
--- NOTE | 2017-08-13 12:00 | NUR ---
TELE1/RN NOON ROUNDS PT REPOSITIONED. NO ACUTE CHANGE OF CONDITION. PT IS COMFORTABLE, MONITORING CONTINUED.
[2017-08-13] MEDS ORDERED: HYDROGEL DRESSING 90 GM TUBE TP PRN (15:00)
[2017-08-13] MEDS ORDERED: FEE PK DOSING 1 MIN EA MC ONE (15:29)
[2017-08-13 15:31] LABS: BASOPHILS % (AUTO) 0.4 % (0.0-2.0); EOSINOPHILS % (AUTO) 3.3 % (0.0-6.0); HEMATOCRIT 28 % (33-45); LYMPHOCYTES # (AUTO) 2.3 /CMM (0.8-4.8); LYMPHOCYTES % (AUTO) 29.9 % (20.0-44.0); MEAN CORPUSCULAR HGB CONC 33 g/dl (31.0-36.0); MEAN CORPUSCULAR VOLUME 92 fL (82-100); MONOCYTES # (AUTO) 0.4 /CMM (0.1-1.30); MONOCYTES % (AUTO) 5.2 % (2.0-12.0); NEUTROPHILS # (AUTO) 4.8 /CMM (1.8-8.9); NEUTROPHILS % (AUTO) 61.2 % (43.0-81.0); PLATELET COUNT (AUTO) 340 /CMM (150-450); RDW COEFFICIENT OF VARIATION 14.2 (11.5-15.0); RED BLOOD CELL COUNT(AUTO) 3.02 MIL/uL (4.0-5.2); WHITE BLOOD COUNT (AUTO) 7.8 K/uL (4.3-11.0)
[2017-08-13 15:52] LABS: ALBUMIN 1.7 g/dL (3.4-5.0); BILIRUBIN,TOTAL 0.2 mg/dL (0.2-1.0); CALCIUM, SERUM 8.1 mg/dL (8.5-10.1); CREATININE 0.8 mg/dL (0.6-1.3); MAGNESIUM 2.6 mg/dL (1.8-2.4); PHOSPHORUS 2.5 mg/dL (2.5-4.9); TOTAL PROTEIN, SERUM 7.3 g/dL (6.4-8.2)
[2017-08-13 16:00] VITALS: BP 95/62
[2017-08-13] MEDS ORDERED: GENTAMICIN 100 MG in IV D5W 100 ML IV SCH (17:00)
--- NOTE | 2017-08-13 17:00 | NUR ---
TELE1/RN AFTERNOON ROUNDS PM CARE PROVIDED, NO CHANGE OF CONDITION. ON GOING MONITORING.
[2017-08-13 20:00] VITALS: BP 117/68
--- NOTE | 2017-08-13 20:00 | NUR ---
TELE1/RN AM SHIFT END NOTES ALL NEEDS MET, NO ACUTE CHANGE OF CONDITION NOTED DURING THE SHIFT. IV INTACT WITH ON GOING INFUSION 1/2NS @ 75CC/HR NO S/S OF INFECTION, G-TUBE INTACT AND GILLIAM CATHETER INTACT. PT ENDORSED TO PM NURSE TO CONTINUE CARE. CL WITHIN REACHED AND SAFETY MAINTAINED.
--- NOTE | 2017-08-13 20:11 | NUR ---
RN NOTES RECEIVED PATIENT IN BED WITH NO RESPIRATORY DISTRESS OR SHORTNESS OF BREATH. BREATHING EVEN AND UNLABORED. VENT SETTING TOLERATED WELL. OBTUNDED. 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 NO PHYSICAL MANIFESTATION OF OR DISCOMFORT. GILLIAM CATHETER IN PLACE DRAINING CLEAR YELLOW WITH NO FOUL ODOR URINE. GTUBE PATENT, FEEDING WELL TOLERATED. HOB ELEVATED. KEPT CLEAN AND DRY. WILL CONTINUE TO MONITOR.
[2017-08-13] MEDS: ATORVASTATIN 10 MG TABLET GT SCH (22:23)
[2017-08-13] MEDS: INSULIN GLARGINE, 100 UNIT/ML CARTRIDGE SQ SCH (23:23)
[2017-08-14] VITALS: BP 123/75
[2017-08-14] MEDS: ALBUTEROL FS 2.5 MG/0.5 ML VIAL.NEB NEB SCH ×4 (01:11→20:04)
[2017-08-14] MEDS: IPRATROPIUM NEB FS 0.5 MG/2.5 ML AMPUL.NEB NEB SCH ×4 (01:11→20:04)
[2017-08-14] MEDS: INSULIN ASPART/LISPRO 100 UNIT/ML CARTRIDGE SQ PRN ×5 (02:52→23:22)
[2017-08-14 04:00] VITALS: BP 142/67
[2017-08-14] MEDS: CEFEPIME 1 GM in IV D5W 50 ML IV SCH ×2 (05:05→12:16)
[2017-08-14] MEDS: BLOOD SUGAR DIAGNOSTIC 1 EACH STRIP IN SCH ×5 (05:07→23:16)
--- NOTE | 2017-08-14 06:54 | NUR ---
RN CLOSING NOTES NO SIGNIFICANT CHANGE IN CONDITION. NO DISTRESS NOTED. BREATHING EVEN AND UNLABORED. NO PHYSICAL MANIFESTATION OF PAIN OR DISCOMFORT. VITAL SIGNS WNL. KEPT CLEAN AND DRY. WILL ENDORSE TO AM SHIFT FOR CONTINUITY OF CARE.
[2017-08-14 08:00] VITALS: BP 143/73
[2017-08-14] MEDS: MULTIVITAMINS,THERAGRAN 1 UDTAB TABLET PO SCH (08:20)
[2017-08-14] MEDS: PANTOPRAZOLE 40 MG/PACK PACK NG SCH (08:21)
[2017-08-14] MEDS: METRONIDAZOLE 250 MG TABLET PO SCH ×2 (08:21→17:07)
[2017-08-14] MEDS: ACETAMINOPHEN 650 MG/20.3 ML UDC GT SCH (08:21)
[2017-08-14] MEDS: VALSARTAN 80 MG TABLET GT SCH (08:21)
[2017-08-14] MEDS: DOCUSATE SODIUM LIQ 100 MG/10 ML UDC GT SCH ×2 (08:21→17:07)
[2017-08-14] MEDS: LEVETIRACETAM SOL (5 ML) 100 MG/ML UDC GT SCH ×2 (08:21→17:07)
[2017-08-14] MEDS: FERROUS SULFATE UDC 300 MG/5 ML UDC GT SCH (08:21)
[2017-08-14] MEDS: DILTIAZEM HCL CD 120 MG PO SCH (08:22)
[2017-08-14 08:23] LABS: BASOPHILS % (AUTO) 0.3 % (0.0-2.0); EOSINOPHILS % (AUTO) 2.9 % (0.0-6.0); HEMATOCRIT 25 % (33-45); HEMOGLOBIN 8.4 g/dL (11.5-14.8); LYMPHOCYTES # (AUTO) 3.3 /CMM (0.8-4.8); LYMPHOCYTES % (AUTO) 37.8 % (20.0-44.0); MEAN CORPUSCULAR HGB CONC 33 g/dl (31.0-36.0); MEAN CORPUSCULAR VOLUME 92 fL (82-100); MONOCYTES # (AUTO) 0.5 /CMM (0.1-1.30); MONOCYTES % (AUTO) 5.3 % (2.0-12.0); NEUTROPHILS # (AUTO) 4.7 /CMM (1.8-8.9); NEUTROPHILS % (AUTO) 53.7 % (43.0-81.0); PLATELET COUNT (AUTO) 285 /CMM (150-450); RDW COEFFICIENT OF VARIATION 14.4 (11.5-15.0); RED BLOOD CELL COUNT(AUTO) 2.76 MIL/uL (4.0-5.2); WHITE BLOOD COUNT (AUTO) 8.7 K/uL (4.3-11.0)
[2017-08-14] MEDS: HEPARIN SODIUM, PORCINE 5000 UNITS/1 ML VIAL SQ SCH ×2 (08:25→21:27)
[2017-08-14 08:41] LABS: ALBUMIN 1.7 g/dL (3.4-5.0); BILIRUBIN,TOTAL 0.2 mg/dL (0.2-1.0); CALCIUM, SERUM 7.9 mg/dL (8.5-10.1); CREATININE 0.8 mg/dL (0.6-1.3); MAGNESIUM 2.5 mg/dL (1.8-2.4); PHOSPHORUS 2.6 mg/dL (2.5-4.9); POTASSIUM 3.9 mmol/L (3.5-5.1); TOTAL PROTEIN, SERUM 6.9 g/dL (6.4-8.2)
[2017-08-14 12:00] VITALS: BP 153/79
--- NOTE | 2017-08-14 12:05 | NUR ---
CRIME SCENE TECHNICIAN NOTE COOLING MEASURES PERFORM PT TEMP 101.1. TYLENOL GIVEN WII CONTINUE TO MONITOR CLOSELY
[2017-08-14] MEDS: IV 1/2NS 1000 ML 1,000 ML IV PRN (12:19)
[2017-08-14 16:00] VITALS: BP 151/75
[2017-08-14 16:10] LABS: IRON, SERUM 31 ug/dl (50-175); TOTAL IRON BINDING CAPACITY 134 ug/dl (250-450)
[2017-08-14 20:00] VITALS: BP 147/74
[2017-08-14] MEDS: DAKINS QUARTER STRENGTH (0.125%) 480 ML BOTTLE TOP SCH (20:38)
[2017-08-14] MEDS: PIPERACILLIN /TAZOBACTAM 3.375 G in IV D5W 100 ML IV SCH (20:38)
[2017-08-14] MEDS: ATORVASTATIN 10 MG TABLET GT SCH (21:26)
[2017-08-14] MEDS: ACETAMINOPHEN 650 MG/20.3 ML UDC GT PRN (21:26)
[2017-08-14] MEDS: INSULIN GLARGINE, 100 UNIT/ML CARTRIDGE SQ SCH (23:17)
[2017-08-15] VITALS (7 sets, daily range): BP systolic 106–169; BP diastolic 57–84
[2017-08-15] MEDS: PIPERACILLIN /TAZOBACTAM 3.375 G in IV D5W 100 ML IV SCH ×4 (01:09→20:16)
[2017-08-15] MEDS: ALBUTEROL FS 2.5 MG/0.5 ML VIAL.NEB NEB SCH ×4 (01:59→19:43)
[2017-08-15] MEDS: IPRATROPIUM NEB FS 0.5 MG/2.5 ML AMPUL.NEB NEB SCH ×4 (01:59→19:43)
[2017-08-15] MEDS: GLUCERNA 1.2 1,000 ML BOTTLE GT PRN (05:23)
[2017-08-15] MEDS: BLOOD SUGAR DIAGNOSTIC 1 EACH STRIP IN SCH ×4 (05:23→23:01)
--- NOTE | 2017-08-15 07:23 | NUR ---
WOUND CARE CONSULT WOUND CARE RECEIVED CONSULT FOR MULTIPLE WOUNDS. WOUND CARE WILL DEFER CONSULT AND ALL TREATMENT PLANS TO SURGICAL TEAM WHO ARE CURRENTLY FOLLOWING. PATIENT WITH JASMYN AT 9, 1ST STEP LOW AIRLOSS MATTRESS ORDERED, ALL PRESSURE ULCER PREVENTION MEASURES NOTED TO BE IN PLACE AT THIS TIME.
[2017-08-15] MEDS: LEVETIRACETAM SOL (5 ML) 100 MG/ML UDC GT SCH ×2 (08:14→16:21)
[2017-08-15] MEDS: FERROUS SULFATE UDC 300 MG/5 ML UDC GT SCH (08:14)
[2017-08-15] MEDS: DOCUSATE SODIUM LIQ 100 MG/10 ML UDC GT SCH ×2 (08:14→16:21)
[2017-08-15] MEDS: VALSARTAN 80 MG TABLET GT SCH (08:15)
[2017-08-15] MEDS: MULTIVITAMINS,THERAGRAN 1 UDTAB TABLET PO SCH (08:15)
[2017-08-15] MEDS: PANTOPRAZOLE 40 MG/PACK PACK NG SCH (08:15)
[2017-08-15] MEDS: METRONIDAZOLE 250 MG TABLET PO SCH ×2 (08:15→16:22)
[2017-08-15] MEDS: DILTIAZEM HCL CD 120 MG PO SCH (08:16)
[2017-08-15] MEDS: HEPARIN SODIUM, PORCINE 5000 UNITS/1 ML VIAL SQ SCH ×2 (08:17→21:26)
[2017-08-15] MEDS: DAKINS QUARTER STRENGTH (0.125%) 480 ML BOTTLE TOP SCH (08:17)
[2017-08-15] MEDS: ACETAMINOPHEN 650 MG/20.3 ML UDC GT SCH (08:18)
[2017-08-15] MEDS: INSULIN ASPART/LISPRO 100 UNIT/ML CARTRIDGE SQ PRN (12:27)
[2017-08-15] MEDS: IV 1/2NS 1000 ML 1,000 ML IV PRN (13:31)
[2017-08-15] MEDS: hydrALAZINE HCL 10 MG TABLET GT PRN (16:22)
[2017-08-15] MEDS: ATORVASTATIN 10 MG TABLET GT SCH (21:21)
[2017-08-15] MEDS: INSULIN GLARGINE, 100 UNIT/ML CARTRIDGE SQ SCH (23:00)
[2017-08-16] VITALS: BP 146/79
[2017-08-16] MEDS: IPRATROPIUM NEB FS 0.5 MG/2.5 ML AMPUL.NEB NEB SCH ×4 (00:53→19:46)
[2017-08-16] MEDS: ALBUTEROL FS 2.5 MG/0.5 ML VIAL.NEB NEB SCH ×4 (00:53→19:46)
[2017-08-16] MEDS: PIPERACILLIN /TAZOBACTAM 3.375 G in IV D5W 100 ML IV SCH ×4 (02:32→20:38)
[2017-08-16 04:00] VITALS: BP 150/66
[2017-08-16] MEDS: BLOOD SUGAR DIAGNOSTIC 1 EACH STRIP IN SCH ×4 (05:35→23:02)
[2017-08-16] MEDS: INSULIN ASPART/LISPRO 100 UNIT/ML CARTRIDGE SQ PRN ×3 (05:35→23:06)
--- NOTE | 2017-08-16 06:22 | NUR ---
RN NOTE PT REMAINS IN NO ACUTE DISTRESS IN BED. PT DID NOT HAVE ANY SIGNIFICANT CHANGE IN CONDITION DURING SHIFT. ALL NEEDS MET, ALL ORDERS CARRIED OUT. PT TOLERATED COOL AEROSOL SETTING WELL. WILL ENDORSE CARE TO AM RN FOR CONTINUITY OF CARE.
--- NOTE | 2017-08-16 07:45 | NUR ---
PIPE ORGAN MECHANIC OPENING NOTES PATIENT RECEIVED IN BED ,OBTUNDED,ON O2 VIA COOL AEROSOL 40%.ON TELE MONITOR SR 80.HAS GILLIAM CATH DRAINING YELLOW URINE WITH SEDIMENTS.ON GT FEEDING GLUCERNA AT 60CC/HR.IV HEPLOCK ON R WRIST #20 WITH 1/2 NS AT 75CC/HR.BED LOCKED AND AT LOW POSITION.CALL LIGHT IN REACH.SAFETY MAINTAINED.BRX3.CONTINUE TO MONITOR.
[2017-08-16 08:00] VITALS: BP 149/59
[2017-08-16] MEDS: HEPARIN SODIUM, PORCINE 5000 UNITS/1 ML VIAL SQ SCH ×2 (08:20→21:28)
[2017-08-16] MEDS: ACETAMINOPHEN 650 MG/20.3 ML UDC GT SCH (08:26)
[2017-08-16] MEDS: LEVETIRACETAM SOL (5 ML) 100 MG/ML UDC GT SCH ×2 (08:26→17:35)
[2017-08-16] MEDS: DOCUSATE SODIUM LIQ 100 MG/10 ML UDC GT SCH ×2 (08:26→17:35)
[2017-08-16] MEDS: MULTIVITAMINS,THERAGRAN 1 UDTAB TABLET PO SCH (08:27)
[2017-08-16] MEDS: FERROUS SULFATE UDC 300 MG/5 ML UDC GT SCH (08:27)
[2017-08-16] MEDS: VALSARTAN 80 MG TABLET GT SCH (08:28)
[2017-08-16] MEDS: PANTOPRAZOLE 40 MG/PACK PACK NG SCH (08:28)
[2017-08-16] MEDS: METRONIDAZOLE 250 MG TABLET PO SCH ×2 (08:28→17:35)
[2017-08-16] MEDS: DAKINS QUARTER STRENGTH (0.125%) 480 ML BOTTLE TOP SCH (08:36)
[2017-08-16] MEDS: DILTIAZEM HCL CD 120 MG PO SCH (11:20)
[2017-08-16 12:00] VITALS: BP 165/52
[2017-08-16 16:00] VITALS: BP 169/77
--- NOTE | 2017-08-16 19:00 | NUR ---
HUMAN RESOURCE PROFESSIONAL SHIFT END NOTES PATIENT IN BED ,OBTUNDED,ON O2 VIA COOL AEROSOL 40%.ON TELE MONITOR SR 84.HAS GILLIAM CATH DRAINING YELLOW URINE WITH SEDIMENTS.ON GT FEEDING GLUCERNA AT 60CC/HR.IV HEPLOCK ON R WRIST #20 WITH 1/2 NS AT 75CC/HR.BED LOCKED AND AT LOW POSITION.CALL LIGHT IN REACH.SAFETY MAINTAINED.BRX3.WILL ENDORSE TO PM NURSE FOR LEONARD.
[2017-08-16 20:00] VITALS: BP 158/79
[2017-08-16] MEDS: ATORVASTATIN 10 MG TABLET GT SCH (21:24)
[2017-08-16] MEDS: INSULIN GLARGINE, 100 UNIT/ML CARTRIDGE SQ SCH (23:02)
[2017-08-17] VITALS: BP 156/75
[2017-08-17] MEDS: IPRATROPIUM NEB FS 0.5 MG/2.5 ML AMPUL.NEB NEB SCH ×4 (01:45→20:06)
[2017-08-17] MEDS: ALBUTEROL FS 2.5 MG/0.5 ML VIAL.NEB NEB SCH ×4 (01:45→20:07)
[2017-08-17] MEDS: PIPERACILLIN /TAZOBACTAM 3.375 G in IV D5W 100 ML IV SCH ×4 (02:04→20:34)
[2017-08-17 04:00] VITALS: BP 155/70
[2017-08-17] MEDS: BLOOD SUGAR DIAGNOSTIC 1 EACH STRIP IN SCH ×4 (05:17→23:27)
--- NOTE | 2017-08-17 07:15 | NUR ---
FAMILY INTERVENTION SPECIALIST OPENING NOTES PATIENT RECEIVED IN BED ,OBTUNDED,ON O2 VIA COOL AEROSOL 40%.ON TELE MONITOR SR 84.HAS GILLIAM CATH DRAINING CLEAR YELLOW URINE .ON GT FEEDING GLUCERNA AT 60CC/HR.IV HEPLOCK ON R WRIST #20 WITH 1/2 NS AT 75CC/HR.BED LOCKED AND AT LOW POSITION.CALL LIGHT IN REACH.SAFETY MAINTAINED.BRX3.CONTINUE TO MONITOR.
[2017-08-17 07:51] LABS: BASOPHILS % (AUTO) 0.3 % (0.0-2.0); EOSINOPHILS % (AUTO) 6.3 % (0.0-6.0); HEMATOCRIT 26 % (33-45); HEMOGLOBIN 8.5 g/dL (11.5-14.8); LYMPHOCYTES % (AUTO) 29.9 % (20.0-44.0); MEAN CORPUSCULAR HGB CONC 33 g/dl (31.0-36.0); MEAN CORPUSCULAR VOLUME 91 fL (82-100); MONOCYTES # (AUTO) 0.3 /CMM (0.1-1.30); MONOCYTES % (AUTO) 4.1 % (2.0-12.0); NEUTROPHILS # (AUTO) 3.9 /CMM (1.8-8.9); NEUTROPHILS % (AUTO) 59.4 % (43.0-81.0); PLATELET COUNT (AUTO) 391 /CMM (150-450); RED BLOOD CELL COUNT(AUTO) 2.84 MIL/uL (4.0-5.2); WHITE BLOOD COUNT (AUTO) 6.6 K/uL (4.3-11.0)
[2017-08-17 08:00] VITALS: BP_SYST 162; BP_SYST 167; BP_DIAS 70
[2017-08-17 08:07] LABS: ALBUMIN 1.7 g/dL (3.4-5.0); BILIRUBIN,TOTAL 0.2 mg/dL (0.2-1.0); CALCIUM, SERUM 8.2 mg/dL (8.5-10.1); CREATININE 0.8 mg/dL (0.6-1.3); PHOSPHORUS 3.5 mg/dL (2.5-4.9); POTASSIUM 3.4 mmol/L (3.5-5.1)
[2017-08-17] MEDS: HEPARIN SODIUM, PORCINE 5000 UNITS/1 ML VIAL SQ SCH ×2 (08:28→21:10)
[2017-08-17] MEDS: PANTOPRAZOLE 40 MG/PACK PACK NG SCH (08:29)
[2017-08-17] MEDS: DILTIAZEM HCL CD 120 MG PO SCH (08:32)
[2017-08-17] MEDS: MULTIVITAMINS,THERAGRAN 1 UDTAB TABLET PO SCH (08:32)
[2017-08-17] MEDS: FERROUS SULFATE UDC 300 MG/5 ML UDC GT SCH (08:33)
[2017-08-17] MEDS: DOCUSATE SODIUM LIQ 100 MG/10 ML UDC GT SCH ×2 (08:33→17:35)
[2017-08-17] MEDS: METRONIDAZOLE 250 MG TABLET PO SCH ×2 (08:33→17:35)
[2017-08-17] MEDS: VALSARTAN 80 MG TABLET GT SCH (08:33)
[2017-08-17] MEDS: LEVETIRACETAM SOL (5 ML) 100 MG/ML UDC GT SCH ×2 (08:33→17:35)
[2017-08-17] MEDS: ACETAMINOPHEN 650 MG/20.3 ML UDC GT SCH (08:34)
[2017-08-17] MEDS: DAKINS QUARTER STRENGTH (0.125%) 480 ML BOTTLE TOP SCH (08:43)
[2017-08-17] MEDS ORDERED: POTASSIUM CHLORIDE 20 MEQ POWDER PACKET GT SCH (12:30)
[2017-08-17] MEDS: INSULIN ASPART/LISPRO 100 UNIT/ML CARTRIDGE SQ PRN ×2 (13:29→23:29)
[2017-08-17 16:00] VITALS: BP 163/87
--- NOTE | 2017-08-17 19:00 | NUR ---
WIND TUNNEL ENGINEER SHIFT END NOTES PATIENT IN BED ,OBTUNDED,ON O2 VIA COOL AEROSOL 40%.HAS GILLIAM CATH DRAINING YELLOW URINE WITH SEDIMENTS.ON GT FEEDING GLUCERNA AT 60CC/HR.IV HEPLOCK ON L WRIST #24 WITH 1/2 NS AT 75CC/HR.BED LOCKED AND AT LOW POSITION.CALL LIGHT IN REACH.SAFETY MAINTAINED.BRX3.WILL ENDORSE TO PM NURSE FOR LEONARD.
--- NOTE | 2017-08-17 19:25 | NUR ---
RN OPENING NOTES RECEIVED REPORT FROM AM RN. PATIENT A/A/O X1, NON-VERBAL BUT RESPONSIVE TO VERBAL & TACTILE STIMULI. OPENS & CLOSES EYES SPONTANEOUSLY. BREATHING EVEN & UNLABORED W/ TRACH INTACT. SATING @ 100% ON COOL AEROSOL 40% @ 10LPM. SKIN WARM, DRY & INTACT W/ PULSES PRESENT BILATERALLY. RIGHT WRIST IV INTACT & PATENT W/ DRESSING CDI & IVF 1/2 NS @ 75 ML/HR. G-TUBE INTACT & FLUSHING WELL W/ GTF GLUCERNA @ 60 ML/HR. NO RESIDUAL NOTED @ THIS TIME. GILLIAM CATH DRAINING CLEAR, YELLOW URINE. NO S/S OF PAIN OR DISCOMFORT @ THIS TIME. SAFETY MEASURES IN PLACE W/ SIDE RAILS UP, BED LOCKED & IN LOWEST POSITION & HOB ELEVATED FOR ASPIRATION PRECAUTION. WILL CONTINUE TO MONITOR.
[2017-08-17 20:00] VITALS: BP 173/84
[2017-08-17] MEDS: ATORVASTATIN 10 MG TABLET GT SCH (21:04)
[2017-08-17] MEDS: hydrALAZINE HCL 10 MG TABLET GT PRN (21:05)
[2017-08-17] MEDS: INSULIN GLARGINE, 100 UNIT/ML CARTRIDGE SQ SCH (21:09)
[2017-08-18] MEDS: IPRATROPIUM NEB FS 0.5 MG/2.5 ML AMPUL.NEB NEB SCH ×4 (01:43→19:53)
[2017-08-18] MEDS: ALBUTEROL FS 2.5 MG/0.5 ML VIAL.NEB NEB SCH ×4 (01:44→19:53)
[2017-08-18] MEDS: PIPERACILLIN /TAZOBACTAM 3.375 G in IV D5W 100 ML IV SCH ×3 (02:26→14:20)
[2017-08-18] MEDS: GLUCERNA 1.2 1,000 ML BOTTLE GT PRN ×2 (02:26→17:57)
[2017-08-18] MEDS: ACETAMINOPHEN 650 MG/20.3 ML UDC GT PRN (02:38)
[2017-08-18 04:00] VITALS: BP 184/76
[2017-08-18] MEDS: BLOOD SUGAR DIAGNOSTIC 1 EACH STRIP IN SCH ×3 (05:12→17:10)
[2017-08-18] MEDS: hydrALAZINE HCL 10 MG TABLET GT PRN (05:13)
[2017-08-18] MEDS: INSULIN ASPART/LISPRO 100 UNIT/ML CARTRIDGE SQ PRN ×2 (05:22→18:04)
[2017-08-18 06:40] LABS: BASOPHILS % (AUTO) 0.5 % (0.0-2.0); EOSINOPHILS % (AUTO) 5.3 % (0.0-6.0); HEMATOCRIT 32 % (33-45); HEMOGLOBIN 10.6 g/dL (11.5-14.8); LYMPHOCYTES # (AUTO) 1.7 /CMM (0.8-4.8); LYMPHOCYTES % (AUTO) 22.7 % (20.0-44.0); MEAN CORPUSCULAR HGB CONC 33 g/dl (31.0-36.0); MEAN CORPUSCULAR VOLUME 91 fL (82-100); MONOCYTES # (AUTO) 0.4 /CMM (0.1-1.30); MONOCYTES % (AUTO) 5.5 % (2.0-12.0); NEUTROPHILS # (AUTO) 4.8 /CMM (1.8-8.9); PLATELET COUNT (AUTO) 425 /CMM (150-450); RDW COEFFICIENT OF VARIATION 14.3 (11.5-15.0); RED BLOOD CELL COUNT(AUTO) 3.51 MIL/uL (4.0-5.2); WHITE BLOOD COUNT (AUTO) 7.3 K/uL (4.3-11.0)
--- NOTE | 2017-08-18 07:06 | NUR ---
MS RN OPENING NOTES RECEIVED PT FROM NIGHTSHIFT NURSE IN STABLE CONDITION. PATIENT OBTUNDED, NON-VERBAL BUT RESPONSIVE TO VERBAL & TACTILE STIMULI. NO SOB OR SIGNS OF DISTRESS NOTED. BREATHING IS EVEN AND UNLABORED. TRACH NOTED TO BE INTACT. PT SATING WELL @ 100% ON COOL AEROSOL 40% @ 10LPM. IV TP LEFT FOOT NOTED TO BE PATENT AND INTACT. PT TOLERATING 1/2 NS INFUSION @ 75 ML/HR WELL. NO REDNESS OR SIGNS OF INFILTRATION NOTED. G-TUBE INTACT & FLUSHING WELL W/ GTF GLUCERNA @ 60 ML/HR. NO RESIDUAL NOTED @ THIS TIME. PLACEMENT VERIFIED VIA AUSCULTATION. GILLIAM CATH DRAINING CLEAR, YELLOW URINE. BED IN LOW LOCKED POSITION, SIDE RAILS UP X3, CALL LIGHT WITHIN REACH, BED ALARM ON. HOB ELEVATED FOR ASPIRATION PRECAUTION. WILL CONTINUE TO MONITOR.
[2017-08-18 07:25] LABS: ALBUMIN 1.9 g/dL (3.4-5.0); BILIRUBIN,TOTAL 0.4 mg/dL (0.2-1.0); CALCIUM, SERUM 8.9 mg/dL (8.5-10.1); CREATININE 0.8 mg/dL (0.6-1.3); MAGNESIUM 2.8 mg/dL (1.8-2.4); PHOSPHORUS 2.9 mg/dL (2.5-4.9); POTASSIUM 3.5 mmol/L (3.5-5.1); TOTAL PROTEIN, SERUM 7.7 g/dL (6.4-8.2)
[2017-08-18 08:00] VITALS: BP 137/71
[2017-08-18] MEDS: HEPARIN SODIUM, PORCINE 5000 UNITS/1 ML VIAL SQ SCH ×2 (08:22→21:54)
[2017-08-18] MEDS: FERROUS SULFATE UDC 300 MG/5 ML UDC GT SCH (08:24)
[2017-08-18] MEDS: DOCUSATE SODIUM LIQ 100 MG/10 ML UDC GT SCH ×2 (08:24→17:10)
[2017-08-18] MEDS: METRONIDAZOLE 250 MG TABLET PO SCH ×2 (08:24→17:10)
[2017-08-18] MEDS: ACETAMINOPHEN 650 MG/20.3 ML UDC GT SCH (08:24)
[2017-08-18] MEDS: MULTIVITAMINS,THERAGRAN 1 UDTAB TABLET PO SCH (08:25)
[2017-08-18] MEDS: PANTOPRAZOLE 40 MG/PACK PACK NG SCH (08:25)
[2017-08-18] MEDS: LEVETIRACETAM SOL (5 ML) 100 MG/ML UDC GT SCH ×2 (08:25→17:10)
[2017-08-18] MEDS: DILTIAZEM HCL CD 120 MG PO SCH (08:25)
[2017-08-18] MEDS: VALSARTAN 80 MG TABLET GT SCH (08:25)
[2017-08-18] MEDS: DAKINS QUARTER STRENGTH (0.125%) 480 ML BOTTLE TOP SCH (08:26)
--- NOTE | 2017-08-18 12:49 | NUR ---
MS RN NOTES DR. PAULSON GAVE A VERBAL ORDER CONFIRMING INSERTION OF AN IV ON THE PT'S LEFT FOOT .
[2017-08-18 16:00] VITALS: BP_SYST 139; BP_DIAS 80; BP_DIAS 82
--- NOTE | 2017-08-18 18:40 | NUR ---
MS RN CLOSING NOTES PT REMAINS STABLE. ALL NEEDS ANTICIPATED FOR AND MET THROUGH OUT SHIFT. WOUND AND SKIN CARE RENDERED ORDERED. PT WAS REPOSITIONED AND TURNED Q2HRS PER HOSPITAL PROTOCOL. CATHETER CARE RENDERED. PT WAS KEPT CLEAN AND DRY THROUGHOUT SHIT. ASPIRATIONS PRECAUTIONS MAINTAINED ORDERED. SHE CONTINUE TO TOLERATE FEEDINGS WELL. NO RESIDUALS ASPIRATED AT THIS TIME. SAFETY MEASURES REMAIN IN PLACE. WILL ENDORSE TO NIGHTSHIFT NURSE FOR LEONARD
--- NOTE | 2017-08-18 20:00 | NUR ---
RN NOTES RECEIVED BEDSIDE REPORT FROM AM NURSE. PT IS IN STABLE CONDITION, OBTUNDED, NON-VERBAL BUT RESPONSIVE TO TACTILE STIMULI. NO SOB OR SIGNS OF DISTRESS NOTED AT THIS TIME . BREATHING IS EVEN AND UNLABORED. TRACH NOTED TO BE INTACT. PT SATING WELL @ 100% ON COOL AEROSOL 40% @ 10LPM. IV TP LEFT FOOT NOTED TO BE PATENT AND INTACT. PT TOLERATING 1/2 NS INFUSION @ 75 ML/HR WELL. NO REDNESS OR SIGNS OF INFILTRATION NOTED. G-TUBE INTACT & FLUSHING WELL W [id number], GTF GLUCERNA @ 60 ML/HR. NO RESIDUAL NOTED @ THIS TIME. PLACEMENT VERIFIED VIA AUSCULTATION. GILLIAM CATH DRAINING CLEAR, YELLOW URINE. BED IN LOW, LOCKED POSITION, SIDE RAILS UP X2, CALL LIGHT WITHIN REACH, BED ALARM ON. HOB ELEVATED FOR ASPIRATION PRECAUTION. WILL CONTINUE TO MONITOR.
[2017-08-18] MEDS: AMOXICILLIN TRIHYDRATE 250 MG CAPSULE PO SCH (21:52)
[2017-08-18] MEDS: ATORVASTATIN 10 MG TABLET GT SCH (22:42)
[2017-08-18] MEDS: INSULIN GLARGINE, 100 UNIT/ML CARTRIDGE SQ SCH (22:45)
[2017-08-19] VITALS: BP 138/78
[2017-08-19] MEDS: IPRATROPIUM NEB FS 0.5 MG/2.5 ML AMPUL.NEB NEB SCH ×4 (01:12→19:11)
[2017-08-19] MEDS: ALBUTEROL FS 2.5 MG/0.5 ML VIAL.NEB NEB SCH ×4 (01:12→19:11)
[2017-08-19] MEDS: BLOOD SUGAR DIAGNOSTIC 1 EACH STRIP IN SCH ×4 (01:33→16:23)
[2017-08-19] MEDS: IV 1/2NS 1000 ML 1,000 ML IV PRN ×2 (03:02→16:24)
[2017-08-19 04:00] VITALS: BP 136/83
[2017-08-19] MEDS: AMOXICILLIN TRIHYDRATE 250 MG CAPSULE PO SCH ×2 (05:14→12:18)
[2017-08-19] MEDS: INSULIN ASPART/LISPRO 100 UNIT/ML CARTRIDGE SQ PRN ×2 (06:11→22:22)
--- NOTE | 2017-08-19 06:35 | NUR ---
RN CLOSING NOTES NO ACUTE CHANGES NOTED DURING MY SHIFT. PT COMFORTABLY RESTING IN BED. V/S WNL. COMFORT AND SAFETY MEASURES PROVIDED, MEDICATION ADMIN. IS DONE IN TIMELY MANNERS BY MD ORDER. WOUND CARE IS DONE BY MD ORDER. BED IL LOWEST, LOCKED POSITION, CALL LIGHT WITHIN REACH, PT TURNED AND REPOSITIONED Q2HR. IV LINE LEFT FOOT IS PATIENT, INTACT WITH 0.45 NS 75ML/HR CURRENTLY RUNNING.GILLIAM CATHETER IN PLACE. PT CARE WILL BE ENDORSE TO AM NURSE.
--- NOTE | 2017-08-19 07:37 | NUR ---
RN OPENING NOTES PATIENT IN BED IN STABLE CONDITION. A/O X 1, NON VERBAL, OPEN EYES. NO SIGNS OF ACUTE DISTRESS. NO COMPLAIN OF PAIN OR DISCOMFORT. TRACH DEPENDENT. ON COOL AEROSOL WITH FIO2 35% TOLERATING WELL. ON G TUBE FEEDING GLUCERNA AT 60ML/HR. TOLERATING WELL. HOB ELEVATED FOR ASPIRATION PRECAUTION. LEFT FOOT IV SITE 24 G, INTACT AND FLUSHING WELL. F/C INTACT AND DRAINING WELL. ALL NEEDS ATTENDED TO. CALL LIGHT WITHIN REACH. WILL CONTINUE TO MONITOR TO ENSURE SAFETY.
[2017-08-19 08:00] VITALS: BP 110/77
[2017-08-19] MEDS: DAKINS QUARTER STRENGTH (0.125%) 480 ML BOTTLE TOP SCH (08:48)
[2017-08-19] MEDS: ACETAMINOPHEN 650 MG/20.3 ML UDC GT SCH (08:48)
[2017-08-19] MEDS: LEVETIRACETAM SOL (5 ML) 100 MG/ML UDC GT SCH ×2 (08:48→16:23)
[2017-08-19] MEDS: FERROUS SULFATE UDC 300 MG/5 ML UDC GT SCH (08:48)
[2017-08-19] MEDS: MULTIVITAMINS,THERAGRAN 1 UDTAB TABLET PO SCH (08:49)
[2017-08-19] MEDS: DILTIAZEM HCL CD 120 MG PO SCH (08:49)
[2017-08-19] MEDS: DOCUSATE SODIUM LIQ 100 MG/10 ML UDC GT SCH ×2 (08:49→16:23)
[2017-08-19] MEDS: VALSARTAN 80 MG TABLET GT SCH (08:49)
[2017-08-19] MEDS: PANTOPRAZOLE 40 MG/PACK PACK NG SCH (08:49)
[2017-08-19] MEDS: HEPARIN SODIUM, PORCINE 5000 UNITS/1 ML VIAL SQ SCH (08:50)
[2017-08-19 09:11] VITALS: BP 110/77
[2017-08-19 16:15] VITALS: BP 136/83
[2017-08-19] MEDS: GLUCERNA 1.2 1,000 ML BOTTLE GT PRN (16:23)
--- NOTE | 2017-08-19 18:12 | NUR ---
MS/RN CLOSING NOTE PATIENT IN BED IN STABLE CONDITION. A/O X 1, NON VERBAL, OPEN EYES. NO SIGNS OF ACUTE DISTRESS. NO COMPLAIN OF PAIN OR DISCOMFORT. ON TRACH DEPENDENT TOLERATING WELL. ON G TUBE FEEDING TOLERATING WELL. HOB ELEVATED FOR ASPIRATION PRECAUTION. ALL NEEDS ATTENDED TO. CALL LIGHT WITHIN REACH. WILL ENDORSE TO NEXT SHIFT FOR CONTINUITY OF CARE.
--- NOTE | 2017-08-19 20:00 | NUR ---
RN NOTES RECEIVED BEDSIDE REPORT FROM AM NURSE. PT IS IN STABLE CONDITION, OBTUNDED, NON-VERBAL BUT RESPONSIVE TO TACTILE STIMULI. NO SOB OR SIGNS OF DISTRESS NOTED AT THIS TIME . BREATHING IS EVEN AND UNLABORED. TRACH NOTED TO BE INTACT. PT SATING WELL @ 100% ON COOL AEROSOL 40% @ 10LPM. IV TP LEFT FOOT NOTED TO BE PATENT AND INTACT. PT TOLERATING 1/2 NS INFUSION @ 75 ML/HR WELL. NO REDNESS OR SIGNS OF INFILTRATION NOTED. G-TUBE INTACT & FLUSHING WELL W [id number], GTF GLUCERNA @ 60 ML/HR. NO RESIDUAL NOTED @ THIS TIME. PLACEMENT VERIFIED VIA AUSCULTATION. GILLIAM CATH DRAINING CLEAR, YELLOW URINE. BED IN LOW, LOCKED POSITION, SIDE RAILS UP X2, CALL LIGHT WITHIN REACH, BED ALARM ON. HOB ELEVATED FOR ASPIRATION PRECAUTION. WILL CONTINUE TO MONITOR.
[2017-08-19 21:14] VITALS: BP 163/79
[2017-08-19] MEDS ORDERED: AMOX/CLAVULANATE 250 MG TABLET ONE (21:16)
[2017-08-19] MEDS: ATORVASTATIN 10 MG TABLET GT SCH (22:17)
[2017-08-19] MEDS: INSULIN GLARGINE, 100 UNIT/ML CARTRIDGE SQ SCH (22:20)
[2017-08-19] MEDS ORDERED: AMOX /CLAV 250 MG/5 ML BOTTLE ONE (22:41)
[2017-08-19] MEDS: AMOXICILLIN 125 MG/5 ML BOTTLE PO SCH (23:30)
[2017-08-20] VITALS: BP 161/79
[2017-08-20] MEDS: IPRATROPIUM NEB FS 0.5 MG/2.5 ML AMPUL.NEB NEB SCH ×3 (00:53→12:40)
[2017-08-20] MEDS: ALBUTEROL FS 2.5 MG/0.5 ML VIAL.NEB NEB SCH ×3 (00:54→12:40)
[2017-08-20] MEDS: BLOOD SUGAR DIAGNOSTIC 1 EACH STRIP IN SCH ×3 (00:59→11:39)
[2017-08-20] MEDS ORDERED: AMOXICILLIN 125 MG/5 ML BOTTLE ONE (01:06)
[2017-08-20] MEDS: AMOXICILLIN 125 MG/5 ML BOTTLE PO SCH ×3 (01:10→12:04)
[2017-08-20] MEDS: DAKINS QUARTER STRENGTH (0.125%) 480 ML BOTTLE TOP SCH (03:09)
[2017-08-20 04:00] VITALS: BP 184/94
--- NOTE | 2017-08-20 06:30 | NUR ---
RN CLOSING NOTES NO ACUTE CHANGES NOTED DURING MY SHIFT. PT IS STABLE, WOUND CARE PROVIDED. PT CARE WILL BE ENDORSED TO AM NURSE.
[2017-08-20] MEDS: INSULIN ASPART/LISPRO 100 UNIT/ML CARTRIDGE SQ PRN (06:55)
[2017-08-20 08:00] VITALS: BP 155/80
--- NOTE | 2017-08-20 08:00 | NUR ---
MS RN OPENING NOTE PATIENT IS OBTUNDED, ABLE TO OPEN AND CLOSE EYES. HAS BILATERAL UPPER EXTREMITIES EDEMA. GILLIAM CATHETER IN PLACE, DRAINING WELL. NO FACIAL GRIMACING NOTED FOR PAIN. NO SOB OR DISTRESS NOTED, ON COOL AEROSOL TOLERATING WELL. TRACH PRESENT, CLEAN AND DRY. HAS WOUND TREATMENT TO BE DONE THROUGHOUT SHIFT. IV INTACT AND PATENT NO REDNESS OR SWELLING NOTED WITH IV FLUIDS RUNNING AT 75 ML/HR. LABS THIS MORNING, WILL AWAIT RESULTS AND REPLACE ELECTROLYTES NEEDED. BLOOD SUGAR TO BE MONITORED AND INSULIN TO BE GIVEN NEEDED. G-TUBE INTACT AND PATENT WITH TUBE FEEDING RUNNING AT 60 ML/HR TOLERATING WELL NO RESIDUAL NOTED. WILL CONTINUE TO MONITOR THROUGHOUT SHIFT
[2017-08-20] MEDS: DOCUSATE SODIUM LIQ 100 MG/10 ML UDC GT SCH (09:03)
[2017-08-20] MEDS: LEVETIRACETAM SOL (5 ML) 100 MG/ML UDC GT SCH (09:03)
[2017-08-20] MEDS: MULTIVITAMINS,THERAGRAN 1 UDTAB TABLET PO SCH (09:04)
[2017-08-20] MEDS: PANTOPRAZOLE 40 MG/PACK PACK NG SCH (09:04)
[2017-08-20] MEDS: ACETAMINOPHEN 650 MG/20.3 ML UDC GT SCH (09:04)
[2017-08-20] MEDS: VALSARTAN 80 MG TABLET GT SCH (09:04)
[2017-08-20] MEDS: DILTIAZEM HCL CD 120 MG PO SCH (09:04)
[2017-08-20] MEDS: FERROUS SULFATE UDC 300 MG/5 ML UDC GT SCH (09:04)
[2017-08-20] MEDS: IV 1/2NS 1000 ML 1,000 ML IV PRN (09:05)
[2017-08-20] MEDS: GLUCERNA 1.2 1,000 ML BOTTLE GT PRN (11:49)
--- NOTE | 2017-08-20 11:58 | NUR ---
MS RN NOTE BLOOD SUGAR-122 NO INSULIN TO BE GIVEN. WILL CONTINUE TO MONITOR FOR SIGNS/ SYMPTOMS OF HYPO/HYPERGLYCEMIA
[2017-08-20 12:00] VITALS: BP 127/64
--- NOTE | 2017-08-20 15:38 | NUR ---
POWER REACTOR SUPERVISOR NOTE PATIENT SENT TO [facility] IN STABLE CONDITION. NO FACIAL GRIMACING NOTED FOR PAIN. NO SOB OR DISTRESS NOTED, ON COOL AEROSOL TOLERATING WELL. TRACH PRESENT, SUCTIONED NEEDED. IV REMOVED, SKIN INTACT FROM IV REMOVAL. WOUNDS PRESENT, PICTURE DOCUMENTED AND TREATMENT DONE. ALL DUE MEDICATIONS GIVEN ORDERED BY MD. ALL NURSING CARE NEEDS ATTENDED TO NEEDED. G-TUBE INTACT AND PATENT, NO REDNESS OR SWELLING NOTED. GILLIAM CATHETER PRESENT-950 DRAINED PRIOR TO DISCHARGE. GAVE REPORT TO TABATHA MENDOZA DIRECTOR OF QUALITY IMPROVEMENT IN [facility] UNIT AT [facility].
== END 2017-08-20 15:14 | DRG 853 ==
LOC: ER 21:14 → TELE1 23:35 → MEDSG1 08-17 11:09
PROVIDERS: ADMIT Internal Medicine; ATTEND Internal Medicine
PROC: 0JBL0ZZ Excision of Right Upper Leg Subcutaneous Tissue and Fascia, Open Approach (ICD-10-PCS; principal; 2017-08-14)
PROC: 0KBR0ZZ Excision of Left Upper Leg Muscle, Open Approach (ICD-10-PCS; 2017-08-14)
PROC: 0JB70ZZ Excision of Back Subcutaneous Tissue and Fascia, Open Approach (ICD-10-PCS; 2017-08-14)
DX: A41.9 Sepsis, unspecified organism (principal); L89.153 Pressure ulcer of sacral region, stage 3; J96.10 Chronic respiratory failure, unspecified whether with hypoxia or hypercapnia; Z93.0 Tracheostomy status; G92 Toxic encephalopathy; E87.0 Hyperosmolality and hypernatremia; L89.814 Pressure ulcer of head, stage 4; L89.313 Pressure ulcer of right buttock, stage 3; R13.10 Dysphagia, unspecified; L89.324 Pressure ulcer of left buttock, stage 4; N39.0 Urinary tract infection, site not specified; Z93.1 Gastrostomy status; E11.9 Type 2 diabetes mellitus without complications; K21.9 Gastro-esophageal reflux disease without esophagitis; I10 Essential (primary) hypertension; G40.909 Epilepsy, unspecified, not intractable, without status epilepticus; Z88.2 Allergy status to sulfonamides; Z87.01 Personal history of pneumonia (recurrent); Z86.73 Personal history of transient ischemic attack (TIA), and cerebral infarction without residual deficits; Z83.3 Family history of diabetes mellitus; Z82.49 Family history of ischemic heart disease and other diseases of the circulatory system; Z79.899 Other long term (current) drug therapy; Z79.4 Long term (current) use of insulin; Z79.01 Long term (current) use of anticoagulants; F09 Unspecified mental disorder due to known physiological condition; J44.9 Chronic obstructive pulmonary disease, unspecified; L98.9 Disorder of the skin and subcutaneous tissue, unspecified; E86.0 Dehydration; F03.90 Unspecified dementia, unspecified severity, without behavioral disturbance, psychotic disturbance, mood disturbance, and anxiety; K59.00 Constipation, unspecified; L30.4 Erythema intertrigo
CPT/HCPCS: 31720; 36415; 71045-TC; 80048-TC; 80053-TC; 80076-TC; 81000-TC; 82728-TC; 82962-TC; 83540-TC; 83605-TC; 83735-TC; 84100-TC; 84484-TC; 85025-TC; 85730-TC; 87040-TC; 87081-TC; 87086-TC; 94640-TC; 94760-TC; A4217; A4606; A6248; A6253; A6402; A6403; J0692; J0696; J1580; J1644; J1815; J1953; J2543; J3490; J7030; J7060; Z7610

== ENCOUNTER 2017-08-20 14:17 | Inpatient (IN) | END 2018-04-16 23:59 | disposition still patient (30) | DRG 189 | DX: J96.10 Chronic respiratory failure, unspecified whether with hypoxia or hypercapnia (principal); L89.153 Pressure ulcer of sacral region, stage 3; R53.2 Functional quadriplegia; E87.0 Hyperosmolality and hypernatremia; K94.23 Gastrostomy malfunction; R40.3 Persistent vegetative state; Z93.0 Tracheostomy status; R13.10 Dysphagia, unspecified; Z93.1 Gastrostomy status; D50.9 Iron deficiency anemia, unspecified; E11.9 Type 2 diabetes mellitus without complications; D69.2 Other nonthrombocytopenic purpura; F03.90 Unspecified dementia, unspecified severity, without behavioral disturbance, psychotic disturbance, mood disturbance, and anxiety; F09 Unspecified mental disorder due to known physiological condition; G40.909 Epilepsy, unspecified, not intractable, without status epilepticus; I10 Essential (primary) hypertension; J44.9 Chronic obstructive pulmonary disease, unspecified; E87.5 Hyperkalemia; K21.9 Gastro-esophageal reflux disease without esophagitis; K59.00 Constipation, unspecified; Z83.3 Family history of diabetes mellitus; Z82.49 Family history of ischemic heart disease and other diseases of the circulatory system ==

== ENCOUNTER → 2018-03-27 | Day surgery (SDC) | payer MEDICARE, OTHER ==
[~2018-03-27] MED LIST changes: +ANESTHESIA TRAY IN PYXIS 1 EA TRAY MC ONE; +DILT-8 GT; -DILT120C62 GT
== END | disposition home or self-care (01) ==
LOC: DS 09:48
PROVIDERS: ATTEND Internal Medicine Gastroenterology
DX: K94.23 Gastrostomy malfunction (principal)
CPT/HCPCS: 43760

== ENCOUNTER 2018-04-17 | Inpatient (IN) | payer MEDICARE, OTHER ==
[~2018-04-17] VITALS: Ht 154.9 cm; Wt 87.6 kg
[~2018-04-17] MED LIST changes: -ANESTHESIA TRAY IN PYXIS 1 EA TRAY MC ONE; +BISA10SU11 RC; -BISA10SU8 RC; +DILT-2 GT; -DILT-8 GT
--- NOTE | 2018-04-18 10:17 | NUR ---
Please see resident's previous account [phone] for all assessments and nurses notes. Originally admitted on 08/20/2017.
--- NOTE | 2018-04-18 10:44 | NUR ---
Please see resident's previous account [phone] for Social Service assessments, evaluations and notes.
[2018-04-18] MEDS ORDERED: BISACODYL SUPP (10 MG) 10 MG/SUPP.RECT SUPP.RECT RC PRN (11:00)
[2018-04-18] MEDS ORDERED: NA PHOS,M-B/NA PHOS,DI-BA 1 EA ENEMA RC PRN (11:00)
[2018-04-18] MEDS: MULTIVIT W/MINERALS 1 TAB TABLET GT SCH (11:10)
[2018-04-18] MEDS ORDERED: Z GUARD REMEDY 4 OZ OINT TP PRN (11:30)
[2018-04-18] MEDS ORDERED: DEXTROSE 50%-WATER 50 ML DISP.SYRIN IV PRN (11:30)
[2018-04-18] MEDS ORDERED: ALBUTEROL FS 2.5 MG/0.5 ML VIAL.NEB NEB PRN (11:30)
[2018-04-18 11:41] VITALS: BP 131/79
[2018-04-18] MEDS: VALSARTAN 80 MG TABLET GT SCH (11:43)
[2018-04-18] MEDS: ACIDOPHILUS/BULGARICUS 1 EACH TAB.CHEW GT SCH ×2 (11:43→17:07)
[2018-04-18] MEDS: ZINC SULFATE 220 MG CAPSULE GT SCH (11:43)
[2018-04-18] MEDS: DOCUSATE SODIUM LIQ 100 MG/10 ML UDC GT SCH ×2 (11:43→17:07)
[2018-04-18] MEDS: ASCORBIC ACID 500 MG TABLET GT SCH (11:43)
[2018-04-18] MEDS: Z GUARD REMEDY 4 OZ OINT TP SCH (11:43)
[2018-04-18] MEDS: HYDROGEN PEROXIDE 480 ML BOTTLE TP SCH ×2 (11:43→21:30)
[2018-04-18] MEDS: FERROUS SULFATE - FOR SA ONLY 330 MG/7.5 ML UDC GT SCH (11:43)
[2018-04-18] MEDS: LEVETIRACETAM SOL (5 ML) 100 MG/ML UDC GT SCH ×2 (11:44→20:58)
[2018-04-18] MEDS: DAKINS QUARTER STRENGTH (0.125%) 480 ML BOTTLE TOP SCH ×2 (11:44→21:30)
[2018-04-18] MEDS: Z GUARD REMEDY 2 OZ OINT TP SCH ×2 (11:44→21:30)
[2018-04-18] MEDS: ACETAMINOPHEN 650 MG/20 ML UDC- SA PATIENTS-PAIN ONLY GT SCH ×2 (11:44→20:58)
[2018-04-18] MEDS: BLOOD SUGAR DIAGNOSTIC 1 EACH STRIP IN SCH ×2 (11:57→17:08)
[2018-04-18] MEDS: INSULIN ASPART/LISPRO 100 UNIT/ML CARTRIDGE SQ PRN (11:57)
[2018-04-18] MEDS: DILTIAZEM HCL 30 MG TABLET GT SCH ×2 (11:57→17:08)
[2018-04-18] MEDS: PROSOURCE / PROSTAT (PYXIS) 30 ML UDC GT SCH ×2 (13:00→20:58)
[2018-04-18] MEDS: IPRATROPIUM NEB FS 0.5 MG/2.5 ML AMPUL.NEB NEB SCH ×2 (13:04→19:50)
[2018-04-18] MEDS: ALBUTEROL FS 2.5 MG/0.5 ML VIAL.NEB NEB SCH ×2 (13:05→19:50)
--- NOTE | 2018-04-18 15:03 | NUR ---
layout worker informed resident's daughter Kelly Wong about upcoming IDT meeting on Friday April 20, 2018 from 12:30-1:30PM. She stated that she is not sure if she is able to attend but will let SW know if anything changes. She noted that she is coming today or tomorrow to visit the resident and can sign off on the admission paperwork then. SW provided paperwork to the charge nurse. Also informed her that resident will be moved to room 266-1.
--- NOTE | 2018-04-18 18:33 | NUR ---
Resident was transferred to room 266-1. Kelly Wong daughter informed per SW. All belongings transferred.
[2018-04-18 19:35] VITALS: BP 110/70
[2018-04-18] MEDS: ENOXAPARIN SODIUM 40 MG/0.4 ML DISP.SYRIN SQ SCH (20:58)
[2018-04-18] MEDS: ATORVASTATIN 10 MG TABLET GT SCH (21:28)
[2018-04-18] MEDS: INSULIN GLARGINE, 100 UNIT/ML CARTRIDGE SQ SCH (22:24)
[2018-04-19] MEDS: BLOOD SUGAR DIAGNOSTIC 1 EACH STRIP IN SCH ×5 (00:02→23:46)
[2018-04-19] MEDS: INSULIN ASPART/LISPRO 100 UNIT/ML CARTRIDGE SQ PRN ×5 (00:03→23:47)
[2018-04-19] MEDS: IPRATROPIUM NEB FS 0.5 MG/2.5 ML AMPUL.NEB NEB SCH ×4 (02:13→19:29)
[2018-04-19] MEDS: ALBUTEROL FS 2.5 MG/0.5 ML VIAL.NEB NEB SCH ×4 (02:13→19:28)
[2018-04-19] MEDS: PROSOURCE / PROSTAT (PYXIS) 30 ML UDC GT SCH ×3 (05:36→20:16)
[2018-04-19] MEDS: DILTIAZEM HCL 30 MG TABLET GT SCH ×5 (05:37→23:46)
[2018-04-19] MEDS: PANTOPRAZOLE 40 MG/PACK PACK GT SCH (05:37)
[2018-04-19 07:45] VITALS: BP 122/62
[2018-04-19] MEDS: FERROUS SULFATE - FOR SA ONLY 330 MG/7.5 ML UDC GT SCH (08:02)
[2018-04-19] MEDS: ACIDOPHILUS/BULGARICUS 1 EACH TAB.CHEW GT SCH ×2 (08:02→17:05)
[2018-04-19] MEDS: DOCUSATE SODIUM LIQ 100 MG/10 ML UDC GT SCH ×2 (08:02→17:05)
[2018-04-19] MEDS: LEVETIRACETAM SOL (5 ML) 100 MG/ML UDC GT SCH ×2 (08:02→20:16)
[2018-04-19] MEDS: MULTIVIT W/MINERALS 1 TAB TABLET GT SCH (08:03)
[2018-04-19] MEDS: ASCORBIC ACID 500 MG TABLET GT SCH (08:04)
[2018-04-19] MEDS: ZINC SULFATE 220 MG CAPSULE GT SCH (08:04)
[2018-04-19] MEDS: DAKINS QUARTER STRENGTH (0.125%) 480 ML BOTTLE TOP SCH ×2 (08:04→20:17)
[2018-04-19] MEDS: Z GUARD REMEDY 2 OZ OINT TP SCH ×2 (08:05→20:17)
[2018-04-19] MEDS: HYDROGEN PEROXIDE 480 ML BOTTLE TP SCH ×2 (08:05→20:17)
[2018-04-19] MEDS: Z GUARD REMEDY 4 OZ OINT TP SCH (08:05)
--- NOTE | 2018-04-19 08:20 | NUR ---
seen by Kennedi guaman order. Addendum: 04/20/18 at 0420 by JESSICA BAIRD RN oksana rothman and MILLY logan to apply Abreva cream Q 3 hrs x 10 days.
[2018-04-19] MEDS: VALSARTAN 80 MG TABLET GT SCH (08:27)
[2018-04-19] MEDS: ACETAMINOPHEN 650 MG/20 ML UDC- SA PATIENTS-PAIN ONLY GT SCH ×2 (09:22→20:16)
[2018-04-19] MEDS: GLUCERNA 1.2 1,000 ML BOTTLE GT PRN (12:47)
--- NOTE | 2018-04-19 15:25 | NUR ---
Residents daughter Kelly Wong signed admission intake paperwork (patient rights acknowledgement, documentation of preferred intensity of care, conditions of admission, an important message from medicare about your rights, [place] Standard Admission Agreement, and voluntary prior express consent form). Per resident's daughter, resident to remain full code (CPR with maximum treatment; NO blood transfusions). Informed the charge nurse. Intake paperwork was placed into the resident's chart.
[2018-04-19] MEDS: ENOXAPARIN SODIUM 40 MG/0.4 ML DISP.SYRIN SQ SCH (20:17)
--- NOTE | 2018-04-19 20:25 | NUR ---
RT NOTE PATIENT RECEIVED TRACHED ON COOL AEROSOL. AMBU BAG/BACK UP TRACH @ BEDSIDE. TX GIVEN, NO ADVERSE REACTIONS NOTED. SX DONE, TRACH SECURED AND PATENT. ALARMS ON AND AUDIBLE. PATIENT STABLE. WILL MONITOR T/O SHIFT. Addendum: 04/19/18 at 2026 by GIULIA BACON RT Amended: Links added.
[2018-04-19 20:41] VITALS: BP 159/70
[2018-04-19] MEDS: ATORVASTATIN 10 MG TABLET GT SCH (21:12)
[2018-04-19] MEDS: INSULIN GLARGINE, 100 UNIT/ML CARTRIDGE SQ SCH (21:13)
[2018-04-20] MEDS: IPRATROPIUM NEB FS 0.5 MG/2.5 ML AMPUL.NEB NEB SCH ×4 (01:20→19:28)
[2018-04-20] MEDS: ALBUTEROL FS 2.5 MG/0.5 ML VIAL.NEB NEB SCH ×4 (01:20→19:28)
[2018-04-20] MEDS: PROSOURCE / PROSTAT (PYXIS) 30 ML UDC GT SCH ×3 (04:44→20:36)
[2018-04-20] MEDS: GLUCERNA 1.2 1,000 ML BOTTLE GT PRN ×2 (04:45→18:27)
[2018-04-20] MEDS: DILTIAZEM HCL 30 MG TABLET GT SCH ×4 (05:29→23:29)
[2018-04-20] MEDS: BLOOD SUGAR DIAGNOSTIC 1 EACH STRIP IN SCH ×4 (05:29→23:29)
[2018-04-20] MEDS: PANTOPRAZOLE 40 MG/PACK PACK GT SCH (05:29)
[2018-04-20] MEDS: INSULIN ASPART/LISPRO 100 UNIT/ML CARTRIDGE SQ PRN ×4 (05:30→23:31)
[2018-04-20 08:00] VITALS: BP 128/73
[2018-04-20] MEDS: DOCUSATE SODIUM LIQ 100 MG/10 ML UDC GT SCH ×2 (08:06→17:04)
[2018-04-20] MEDS: VALSARTAN 80 MG TABLET GT SCH (08:06)
[2018-04-20] MEDS: FERROUS SULFATE - FOR SA ONLY 330 MG/7.5 ML UDC GT SCH (08:07)
[2018-04-20] MEDS: LEVETIRACETAM SOL (5 ML) 100 MG/ML UDC GT SCH ×2 (08:07→20:36)
[2018-04-20] MEDS: ACIDOPHILUS/BULGARICUS 1 EACH TAB.CHEW GT SCH ×2 (08:07→17:04)
[2018-04-20] MEDS: MULTIVIT W/MINERALS 1 TAB TABLET GT SCH (08:07)
[2018-04-20] MEDS: ACETAMINOPHEN 650 MG/20 ML UDC- SA PATIENTS-PAIN ONLY GT SCH ×2 (08:09→20:37)
[2018-04-20] MEDS: Z GUARD REMEDY 4 OZ OINT TP SCH (08:10)
[2018-04-20] MEDS: DAKINS QUARTER STRENGTH (0.125%) 480 ML BOTTLE TOP SCH ×2 (08:10→20:38)
[2018-04-20] MEDS: ZINC SULFATE 220 MG CAPSULE GT SCH (08:10)
[2018-04-20] MEDS: Z GUARD REMEDY 2 OZ OINT TP SCH ×2 (08:10→20:38)
[2018-04-20] MEDS: HYDROGEN PEROXIDE 480 ML BOTTLE TP SCH ×2 (08:10→20:38)
[2018-04-20] MEDS: ASCORBIC ACID 500 MG TABLET GT SCH (08:10)
[2018-04-20] MEDS: ABREVA CREAM TP SCH ×6 (08:41→23:29)
--- NOTE | 2018-04-20 10:54 | NUR ---
nozzle worker received a call from Dot at the office of Dr. Saldana (rehabilitation services aide- [phone]). Resident is due for an optometry exam and she noted that Dr. Saldana will come on Friday April 27, 2018 around 10AM. ORACIO informed resident's daughter Kelly Wong and informed her to please keep note of the date since ORACIO will not be here to remind her. She appreciated the information given.
--- NOTE | 2018-04-20 14:15 | NUR ---
INTERDISCIPLINARY TEAM CONFERENCE (IDT) was held today. Resident's daughter Kelly Wong was not able to attend today's IDT meeting. Dr. Capone and the interdisciplinary team reviewed the current plan of care in detail. Orders as well as treatment and medications were reviewed.Resident will be seen by Dr. Saldana (herbicide sprayer) on 04/27/2018 around 10AM. Resident has a new order for her lips that was given yesterday. No new orders were given during today's IDT meeting.
--- NOTE | 2018-04-20 17:25 | NUR ---
Abreva cream not available [facility] pharmacy said they ordered and will be available josé miguel.
--- NOTE | 2018-04-20 18:22 | NUR ---
Seen and examined by MILLY Bender, no new order given.
[2018-04-20] MEDS: ENOXAPARIN SODIUM 40 MG/0.4 ML DISP.SYRIN SQ SCH (20:37)
[2018-04-20 20:48] VITALS: BP 110/61
[2018-04-20] MEDS: ATORVASTATIN 10 MG TABLET GT SCH (21:27)
[2018-04-20] MEDS: INSULIN GLARGINE, 100 UNIT/ML CARTRIDGE SQ SCH (21:28)
[2018-04-21] MEDS: ALBUTEROL FS 2.5 MG/0.5 ML VIAL.NEB NEB SCH ×4 (01:45→19:18)
[2018-04-21] MEDS: IPRATROPIUM NEB FS 0.5 MG/2.5 ML AMPUL.NEB NEB SCH ×4 (01:45→19:18)
[2018-04-21] MEDS: ABREVA CREAM TP SCH ×8 (03:00→23:20)
[2018-04-21] MEDS: PANTOPRAZOLE 40 MG/PACK PACK GT SCH (05:27)
[2018-04-21] MEDS: BLOOD SUGAR DIAGNOSTIC 1 EACH STRIP IN SCH ×4 (05:27→23:20)
[2018-04-21] MEDS: PROSOURCE / PROSTAT (PYXIS) 30 ML UDC GT SCH ×3 (05:27→20:31)
[2018-04-21] MEDS: DILTIAZEM HCL 30 MG TABLET GT SCH ×4 (05:27→23:20)
[2018-04-21] MEDS: INSULIN ASPART/LISPRO 100 UNIT/ML CARTRIDGE SQ PRN ×4 (05:28→23:21)
[2018-04-21 07:43] VITALS: BP 128/96
[2018-04-21] MEDS: FERROUS SULFATE - FOR SA ONLY 330 MG/7.5 ML UDC GT SCH (07:57)
[2018-04-21] MEDS: ZINC SULFATE 220 MG CAPSULE GT SCH (07:57)
[2018-04-21] MEDS: ACIDOPHILUS/BULGARICUS 1 EACH TAB.CHEW GT SCH ×2 (07:57→15:58)
[2018-04-21] MEDS: DOCUSATE SODIUM LIQ 100 MG/10 ML UDC GT SCH ×2 (07:57→15:58)
[2018-04-21] MEDS: ASCORBIC ACID 500 MG TABLET GT SCH (07:57)
[2018-04-21] MEDS: DAKINS QUARTER STRENGTH (0.125%) 480 ML BOTTLE TOP SCH ×2 (07:58→20:32)
[2018-04-21] MEDS: HYDROGEN PEROXIDE 480 ML BOTTLE TP SCH ×2 (07:58→20:32)
[2018-04-21] MEDS: Z GUARD REMEDY 2 OZ OINT TP SCH ×2 (07:59→20:33)
[2018-04-21] MEDS: Z GUARD REMEDY 4 OZ OINT TP SCH (07:59)
[2018-04-21] MEDS: MULTIVIT W/MINERALS 1 TAB TABLET GT SCH (08:00)
[2018-04-21] MEDS: LEVETIRACETAM SOL (5 ML) 100 MG/ML UDC GT SCH ×2 (08:00→20:31)
[2018-04-21] MEDS: VALSARTAN 80 MG TABLET GT SCH (08:00)
[2018-04-21] MEDS: ACETAMINOPHEN 650 MG/20 ML UDC- SA PATIENTS-PAIN ONLY GT SCH ×2 (08:00→20:32)
[2018-04-21 19:50] VITALS: BP 125/65
[2018-04-21] MEDS: ENOXAPARIN SODIUM 40 MG/0.4 ML DISP.SYRIN SQ SCH (20:32)
[2018-04-21] MEDS: ATORVASTATIN 10 MG TABLET GT SCH (21:14)
[2018-04-21] MEDS: INSULIN GLARGINE, 100 UNIT/ML CARTRIDGE SQ SCH (21:15)
[2018-04-22] MEDS: IPRATROPIUM NEB FS 0.5 MG/2.5 ML AMPUL.NEB NEB SCH ×4 (00:38→19:07)
[2018-04-22] MEDS: ALBUTEROL FS 2.5 MG/0.5 ML VIAL.NEB NEB SCH ×4 (00:38→19:07)
[2018-04-22] MEDS: ABREVA CREAM TP SCH ×4 (03:00→12:00)
[2018-04-22] MEDS: DILTIAZEM HCL 30 MG TABLET GT SCH ×3 (05:29→17:38)
[2018-04-22] MEDS: PANTOPRAZOLE 40 MG/PACK PACK GT SCH (05:29)
[2018-04-22] MEDS: BLOOD SUGAR DIAGNOSTIC 1 EACH STRIP IN SCH ×3 (05:29→17:39)
[2018-04-22] MEDS: PROSOURCE / PROSTAT (PYXIS) 30 ML UDC GT SCH ×3 (05:29→20:20)
[2018-04-22] MEDS: INSULIN ASPART/LISPRO 100 UNIT/ML CARTRIDGE SQ PRN ×3 (05:30→17:40)
[2018-04-22 07:27] VITALS: BP 117/73
--- NOTE | 2018-04-22 08:05 | NUR ---
RT PATIENT REC'D TRACHED ON COOL AEROSOL [place] WELL. PATIENT SUCTIONED WITH MOD AMT OF PALE SEMITHICK SECRETIONS. PATIENT STABLE AND APPEARS COMFORTABLE. NO SOB NOTED. AMBU BAG AT HOB. Addendum: 04/24/18 at 0706 by MARGARITA SPRINGER RT Amended: Links added.
[2018-04-22] MEDS: DOCUSATE SODIUM LIQ 100 MG/10 ML UDC GT SCH ×2 (09:31→16:20)
[2018-04-22] MEDS: FERROUS SULFATE - FOR SA ONLY 330 MG/7.5 ML UDC GT SCH (09:31)
[2018-04-22] MEDS: VALSARTAN 80 MG TABLET GT SCH (09:31)
[2018-04-22] MEDS: LEVETIRACETAM SOL (5 ML) 100 MG/ML UDC GT SCH ×2 (09:31→20:19)
[2018-04-22] MEDS: ACIDOPHILUS/BULGARICUS 1 EACH TAB.CHEW GT SCH ×2 (09:31→16:20)
[2018-04-22] MEDS: MULTIVIT W/MINERALS 1 TAB TABLET GT SCH (09:31)
[2018-04-22] MEDS: ASCORBIC ACID 500 MG TABLET GT SCH (09:32)
[2018-04-22] MEDS: HYDROGEN PEROXIDE 480 ML BOTTLE TP SCH ×2 (09:32→22:02)
[2018-04-22] MEDS: Z GUARD REMEDY 2 OZ OINT TP SCH ×2 (09:32→21:00)
[2018-04-22] MEDS: ACETAMINOPHEN 650 MG/20 ML UDC- SA PATIENTS-PAIN ONLY GT SCH ×2 (09:32→20:21)
[2018-04-22] MEDS: DAKINS QUARTER STRENGTH (0.125%) 480 ML BOTTLE TOP SCH ×2 (09:32→22:02)
[2018-04-22] MEDS: ZINC SULFATE 220 MG CAPSULE GT SCH (09:32)
[2018-04-22] MEDS: Z GUARD REMEDY 4 OZ OINT TP SCH (09:32)
[2018-04-22] MEDS: GLUCERNA 1.2 1,000 ML BOTTLE GT PRN (12:40)
--- NOTE | 2018-04-22 19:17 | NUR ---
RT NOTE: RECEIVED TRACH PT ON COOL AEROSOL. AMBU BAG/BACK UP TRACH @ BEDSIDE. Q6 BREATHING TX GIVEN PER MD ORDERS WITH NO ADVERSE REACTION NOTED. SX DONE PRN. TRACH SECURED AND PATENT. NO RESP DISTRESS NOTED AT THIS TIME. WILL CONTINUE TO MONITOR PT. Addendum: 04/23/18 at 0541 by BECKY DIALLO RT Amended: Links added.
[2018-04-22 19:53] VITALS: BP 123/68
[2018-04-22] MEDS: ENOXAPARIN SODIUM 40 MG/0.4 ML DISP.SYRIN SQ SCH (20:26)
[2018-04-22] MEDS: ATORVASTATIN 10 MG TABLET GT SCH (22:21)
[2018-04-22] MEDS: INSULIN GLARGINE, 100 UNIT/ML CARTRIDGE SQ SCH (22:26)
[2018-04-23] MEDS: BLOOD SUGAR DIAGNOSTIC 1 EACH STRIP IN SCH ×5 (00:48→23:21)
[2018-04-23] MEDS: INSULIN ASPART/LISPRO 100 UNIT/ML CARTRIDGE SQ PRN ×5 (00:51→23:22)
[2018-04-23] MEDS: DILTIAZEM HCL 30 MG TABLET GT SCH ×5 (00:59→23:38)
[2018-04-23] MEDS: ALBUTEROL FS 2.5 MG/0.5 ML VIAL.NEB NEB SCH ×4 (01:55→19:14)
[2018-04-23] MEDS: IPRATROPIUM NEB FS 0.5 MG/2.5 ML AMPUL.NEB NEB SCH ×4 (01:55→19:14)
[2018-04-23] MEDS: PROSOURCE / PROSTAT (PYXIS) 30 ML UDC GT SCH ×2 (04:15→13:08)
[2018-04-23] MEDS: PANTOPRAZOLE 40 MG/PACK PACK GT SCH (05:42)
[2018-04-23 07:38] VITALS: BP 104/64
[2018-04-23 08:00] VITALS: BP 104/64
[2018-04-23] MEDS: VALSARTAN 80 MG TABLET GT SCH (08:21)
[2018-04-23] MEDS: DOCUSATE SODIUM LIQ 100 MG/10 ML UDC GT SCH ×2 (08:21→17:58)
[2018-04-23] MEDS: FERROUS SULFATE - FOR SA ONLY 330 MG/7.5 ML UDC GT SCH (08:22)
[2018-04-23] MEDS: ASCORBIC ACID 500 MG TABLET GT SCH (08:22)
[2018-04-23] MEDS: LEVETIRACETAM SOL (5 ML) 100 MG/ML UDC GT SCH ×2 (08:22→20:21)
[2018-04-23] MEDS: ACETAMINOPHEN 650 MG/20 ML UDC- SA PATIENTS-PAIN ONLY GT SCH ×2 (08:22→20:21)
[2018-04-23] MEDS: ACIDOPHILUS/BULGARICUS 1 EACH TAB.CHEW GT SCH ×2 (08:22→17:58)
[2018-04-23] MEDS: ZINC SULFATE 220 MG CAPSULE GT SCH (08:22)
[2018-04-23] MEDS: MULTIVIT W/MINERALS 1 TAB TABLET GT SCH (08:22)
[2018-04-23] MEDS: ABREVA CREAM TP SCH ×6 (09:00→23:22)
[2018-04-23] MEDS: Z GUARD REMEDY 4 OZ OINT TP SCH (09:00)
[2018-04-23] MEDS: HYDROGEN PEROXIDE 480 ML BOTTLE TP SCH ×2 (09:00→21:03)
[2018-04-23] MEDS: Z GUARD REMEDY 2 OZ OINT TP SCH ×2 (09:00→21:03)
[2018-04-23] MEDS: DAKINS QUARTER STRENGTH (0.125%) 480 ML BOTTLE TOP SCH ×2 (13:44→21:03)
[2018-04-23 19:51] VITALS: BP 124/65
[2018-04-23] MEDS: ENOXAPARIN SODIUM 40 MG/0.4 ML DISP.SYRIN SQ SCH (20:22)
[2018-04-23] MEDS: ATORVASTATIN 10 MG TABLET GT SCH (21:03)
[2018-04-23] MEDS: INSULIN GLARGINE, 100 UNIT/ML CARTRIDGE SQ SCH (21:24)
[2018-04-23] MEDS: GLUCERNA 1.5 1,000 ML BOTTLE GT PRN (21:50)
[2018-04-24] MEDS: ALBUTEROL FS 2.5 MG/0.5 ML VIAL.NEB NEB SCH ×4 (00:50→19:24)
[2018-04-24] MEDS: IPRATROPIUM NEB FS 0.5 MG/2.5 ML AMPUL.NEB NEB SCH ×4 (00:50→19:24)
[2018-04-24] MEDS: ABREVA CREAM TP SCH ×8 (03:00→23:11)
[2018-04-24] MEDS: DILTIAZEM HCL 30 MG TABLET GT SCH ×4 (05:13→23:10)
[2018-04-24] MEDS: PANTOPRAZOLE 40 MG/PACK PACK GT SCH (05:13)
[2018-04-24] MEDS: BLOOD SUGAR DIAGNOSTIC 1 EACH STRIP IN SCH ×4 (05:50→23:10)
[2018-04-24 07:33] VITALS: BP 129/88
[2018-04-24] MEDS: HYDROGEN PEROXIDE 480 ML BOTTLE TP SCH ×2 (09:00→20:45)
[2018-04-24] MEDS: Z GUARD REMEDY 4 OZ OINT TP SCH (09:00)
[2018-04-24] MEDS: Z GUARD REMEDY 2 OZ OINT TP SCH ×2 (09:00→20:46)
[2018-04-24] MEDS: DAKINS QUARTER STRENGTH (0.125%) 480 ML BOTTLE TOP SCH ×2 (09:00→20:45)
[2018-04-24] MEDS: FERROUS SULFATE - FOR SA ONLY 330 MG/7.5 ML UDC GT SCH (09:49)
[2018-04-24] MEDS: VALSARTAN 80 MG TABLET GT SCH (09:49)
[2018-04-24] MEDS: DOCUSATE SODIUM LIQ 100 MG/10 ML UDC GT SCH ×2 (09:49→17:00)
[2018-04-24] MEDS: ACIDOPHILUS/BULGARICUS 1 EACH TAB.CHEW GT SCH ×2 (09:50→17:00)
[2018-04-24] MEDS: ZINC SULFATE 220 MG CAPSULE GT SCH (09:50)
[2018-04-24] MEDS: ASCORBIC ACID 500 MG TABLET GT SCH (09:50)
[2018-04-24] MEDS: LEVETIRACETAM SOL (5 ML) 100 MG/ML UDC GT SCH ×2 (09:50→20:08)
[2018-04-24] MEDS: MULTIVIT W/MINERALS 1 TAB TABLET GT SCH (09:51)
[2018-04-24] MEDS: ACETAMINOPHEN 650 MG/20 ML UDC- SA PATIENTS-PAIN ONLY GT SCH ×2 (09:51→20:09)
[2018-04-24] MEDS: INSULIN ASPART/LISPRO 100 UNIT/ML CARTRIDGE SQ PRN ×3 (12:48→23:24)
[2018-04-24 19:56] VITALS: BP 98/61
[2018-04-24] MEDS: ENOXAPARIN SODIUM 40 MG/0.4 ML DISP.SYRIN SQ SCH (20:10)
[2018-04-24] MEDS: ATORVASTATIN 10 MG TABLET GT SCH (21:34)
[2018-04-24] MEDS: INSULIN GLARGINE, 100 UNIT/ML CARTRIDGE SQ SCH (21:35)
[2018-04-24] MEDS: GLUCERNA 1.5 1,000 ML BOTTLE GT PRN (21:48)
[2018-04-25] MEDS: ALBUTEROL FS 2.5 MG/0.5 ML VIAL.NEB NEB SCH ×4 (01:01→19:59)
[2018-04-25] MEDS: IPRATROPIUM NEB FS 0.5 MG/2.5 ML AMPUL.NEB NEB SCH ×4 (01:01→19:59)
[2018-04-25] MEDS: ABREVA CREAM TP SCH ×8 (03:00→23:18)
[2018-04-25] MEDS: PANTOPRAZOLE 40 MG/PACK PACK GT SCH (05:07)
[2018-04-25] MEDS: DILTIAZEM HCL 30 MG TABLET GT SCH ×4 (05:07→23:17)
[2018-04-25] MEDS: BLOOD SUGAR DIAGNOSTIC 1 EACH STRIP IN SCH ×4 (05:51→23:17)
[2018-04-25] MEDS: INSULIN ASPART/LISPRO 100 UNIT/ML CARTRIDGE SQ PRN ×4 (05:52→23:19)
[2018-04-25 07:31] VITALS: BP 95/64
[2018-04-25] MEDS: MULTIVIT W/MINERALS 1 TAB TABLET GT SCH (09:00)
[2018-04-25] MEDS: VALSARTAN 80 MG TABLET GT SCH (09:00)
[2018-04-25] MEDS: HYDROGEN PEROXIDE 480 ML BOTTLE TP SCH ×2 (09:00→21:08)
[2018-04-25] MEDS: Z GUARD REMEDY 4 OZ OINT TP SCH (09:00)
[2018-04-25] MEDS: DAKINS QUARTER STRENGTH (0.125%) 480 ML BOTTLE TOP SCH ×2 (09:00→21:08)
[2018-04-25] MEDS: Z GUARD REMEDY 2 OZ OINT TP SCH ×2 (09:00→21:08)
[2018-04-25] MEDS: ACIDOPHILUS/BULGARICUS 1 EACH TAB.CHEW GT SCH ×2 (09:20→16:29)
[2018-04-25] MEDS: DOCUSATE SODIUM LIQ 100 MG/10 ML UDC GT SCH ×2 (09:20→16:29)
[2018-04-25] MEDS: LEVETIRACETAM SOL (5 ML) 100 MG/ML UDC GT SCH ×2 (09:20→20:15)
[2018-04-25] MEDS: FERROUS SULFATE - FOR SA ONLY 330 MG/7.5 ML UDC GT SCH (09:20)
[2018-04-25] MEDS: ACETAMINOPHEN 650 MG/20 ML UDC- SA PATIENTS-PAIN ONLY GT SCH ×2 (09:21→20:16)
[2018-04-25] MEDS: ZINC SULFATE 220 MG CAPSULE GT SCH (09:21)
[2018-04-25] MEDS: ASCORBIC ACID 500 MG TABLET GT SCH (09:21)
[2018-04-25] MEDS: GLUCERNA 1.5 1,000 ML BOTTLE GT PRN (17:28)
--- NOTE | 2018-04-25 17:30 | NUR ---
Paged acquisition marketing coordinator for Dr. Javier Pineda to report patient having low grade temp 100.4, 110/61, 97, 17, O2 sat 98%. Awaiting for acquisition marketing coordinator MD to call back.
--- NOTE | 2018-04-25 18:10 | NUR ---
Dr. Wilde returned the call, line construction engineer for Dr. iPneda, reported V/S 100.4, 110/61, 97, 17, 98% with new order to do UA and C&S, BC x 2, CXR and CBC and BMP in AM. Resident's daughter informed of change in condition. Endorsed to notify family for any new order given.
[2018-04-25] MEDS: ENOXAPARIN SODIUM 40 MG/0.4 ML DISP.SYRIN SQ SCH (20:17)
[2018-04-25 20:46] VITALS: BP 102/66
[2018-04-25] MEDS: ATORVASTATIN 10 MG TABLET GT SCH (21:08)
[2018-04-25] MEDS: INSULIN GLARGINE, 100 UNIT/ML CARTRIDGE SQ SCH (21:38)
[2018-04-26] MEDS: ALBUTEROL FS 2.5 MG/0.5 ML VIAL.NEB NEB SCH ×4 (02:02→19:30)
[2018-04-26] MEDS: IPRATROPIUM NEB FS 0.5 MG/2.5 ML AMPUL.NEB NEB SCH ×4 (02:02→19:30)
[2018-04-26] MEDS: ABREVA CREAM TP SCH ×8 (03:00→23:47)
[2018-04-26 04:49] LABS: APPEARANCE,URINE CLEAR (CLEAR); BILIRUBIN,URINE NEGATIVE (NEGATIVE); BLOOD, URINE 3+ Ery/uL (NEGATIVE); COLOR,URINE YELLOW (YELLOW); KETONES,URINE NEGATIVE (NEGATIVE); LEUKOCYTE ESTERASE ,URINE 3+ (NEGATIVE); NITRITE, URINE NEGATIVE (NEGATIVE); PH,URINE 8.5 (5.0-8.0); PROTEIN,URINE 1+ mg/dl (NEGATIVE); UGLUCOSE NEGATIVE (NEGATIVE); UROBILINOGEN,URINE 0.2 EU/dL (0.2)
[2018-04-26 04:57] LABS: BACTERIA,URINE Moderate /HPF (None Seen); RBC,URINE 51-80 /HPF (0-2); SQUAMOUS EPITHELIAL CELL,UR Few /HPF (None Seen)
[2018-04-26] MEDS: DILTIAZEM HCL 30 MG TABLET GT SCH ×4 (05:04→23:46)
[2018-04-26] MEDS: PANTOPRAZOLE 40 MG/PACK PACK GT SCH (05:05)
[2018-04-26] MEDS: BLOOD SUGAR DIAGNOSTIC 1 EACH STRIP IN SCH ×4 (06:09→23:46)
[2018-04-26] MEDS: INSULIN ASPART/LISPRO 100 UNIT/ML CARTRIDGE SQ PRN ×4 (06:10→23:48)
[2018-04-26 07:34] VITALS: BP 131/68
[2018-04-26 07:48] LABS: BASOPHILS # (AUTO) 0.1 /CMM (0.0-0.2); BASOPHILS % (AUTO) 0.9 % (0.0-2.0); EOSINOPHILS % (AUTO) 4.6 % (0.0-6.0); HEMATOCRIT 37 % (33-45); HEMOGLOBIN 11.8 g/dL (11.5-14.8); LYMPHOCYTES # (AUTO) 2.9 /CMM (0.8-4.8); LYMPHOCYTES % (AUTO) 41.3 % (20.0-44.0); MEAN CORPUSCULAR HGB CONC 32 g/dl (31.0-36.0); MEAN CORPUSCULAR VOLUME 95 fL (82-100); MONOCYTES # (AUTO) 0.5 /CMM (0.1-1.30); MONOCYTES % (AUTO) 7.7 % (2.0-12.0); NEUTROPHILS # (AUTO) 3.2 /CMM (1.8-8.9); NEUTROPHILS % (AUTO) 45.5 % (43.0-81.0); PLATELET COUNT (AUTO) 206 /CMM (150-450); RED BLOOD CELL COUNT(AUTO) 3.89 MIL/uL (4.0-5.2)
[2018-04-26 08:07] LABS: POTASSIUM 5.2 mmol/L (3.5-5.1)
[2018-04-26 08:08] LABS: CALCIUM, SERUM 8.9 mg/dL (8.5-10.1)
[2018-04-26] MEDS: ZINC SULFATE 220 MG CAPSULE GT SCH (09:00)
[2018-04-26] MEDS: Z GUARD REMEDY 4 OZ OINT TP SCH (09:00)
[2018-04-26] MEDS: DAKINS QUARTER STRENGTH (0.125%) 480 ML BOTTLE TOP SCH ×2 (09:00→21:12)
[2018-04-26] MEDS: DOCUSATE SODIUM LIQ 100 MG/10 ML UDC GT SCH ×2 (09:00→16:47)
[2018-04-26] MEDS: ASCORBIC ACID 500 MG TABLET GT SCH (09:00)
[2018-04-26] MEDS: FERROUS SULFATE - FOR SA ONLY 330 MG/7.5 ML UDC GT SCH (09:00)
[2018-04-26] MEDS: Z GUARD REMEDY 2 OZ OINT TP SCH ×2 (09:00→21:12)
[2018-04-26] MEDS: HYDROGEN PEROXIDE 480 ML BOTTLE TP SCH ×2 (09:00→21:12)
[2018-04-26] MEDS: ACIDOPHILUS/BULGARICUS 1 EACH TAB.CHEW GT SCH ×2 (09:00→16:47)
[2018-04-26] MEDS: MULTIVIT W/MINERALS 1 TAB TABLET GT SCH (09:00)
[2018-04-26] MEDS: ACETAMINOPHEN 650 MG/20 ML UDC- SA PATIENTS-PAIN ONLY GT SCH ×2 (09:00→21:11)
[2018-04-26] MEDS: LEVETIRACETAM SOL (5 ML) 100 MG/ML UDC GT SCH ×2 (09:00→21:11)
[2018-04-26] MEDS: VALSARTAN 80 MG TABLET GT SCH (09:00)
--- NOTE | 2018-04-26 10:00 | NUR ---
Left buttock wound debridement done by Dr Mclain. Pt tolerated procedure well.
[2018-04-26] MEDS: GLUCERNA 1.5 1,000 ML BOTTLE GT PRN (11:51)
--- NOTE | 2018-04-26 15:00 | NUR ---
Seen by WATER SOFTENER INSTALLER Kennedi Bender. Relayed lab and CXR results to her. She ordered to give 1/2 NS at 70 mL/hr IV x 2 L for hydration.
[2018-04-26] MEDS: IV 1/2NS 1000 ML 1,000 ML IV SCH (16:00)
[2018-04-26] MEDS: AMOXICILLIN TRIHYDRATE 250 MG CAPSULE PO SCH ×2 (18:26→21:00)
--- NOTE | 2018-04-26 18:52 | NUR ---
MILLY Mcelroy ordered to give Amoxicillin 500 mg GT q 8 hours for 5 days per protocol. Asked her for a stop date but she said she might still change the antibiotic based on cultures. No stop date for now.
[2018-04-26 19:40] VITALS: BP 111/50
--- NOTE | 2018-04-26 20:00 | NUR ---
rn notes held 2100 Amoxicillin 500 mg GT, per md order medication to be administered q8h.
[2018-04-26] MEDS: ATORVASTATIN 10 MG TABLET GT SCH (21:12)
[2018-04-26] MEDS: ENOXAPARIN SODIUM 40 MG/0.4 ML DISP.SYRIN SQ SCH (21:13)
[2018-04-26] MEDS: INSULIN GLARGINE, 100 UNIT/ML CARTRIDGE SQ SCH (21:42)
[2018-04-27] MEDS: IPRATROPIUM NEB FS 0.5 MG/2.5 ML AMPUL.NEB NEB SCH ×4 (02:11→19:29)
[2018-04-27] MEDS: ALBUTEROL FS 2.5 MG/0.5 ML VIAL.NEB NEB SCH ×4 (02:11→19:30)
[2018-04-27] MEDS: ABREVA CREAM TP SCH ×7 (03:32→21:33)
[2018-04-27] MEDS: IV 1/2NS 1000 ML 1,000 ML IV SCH (05:32)
[2018-04-27] MEDS: BLOOD SUGAR DIAGNOSTIC 1 EACH STRIP IN SCH ×4 (05:42→23:46)
[2018-04-27] MEDS: AMOXICILLIN TRIHYDRATE 250 MG CAPSULE PO SCH ×3 (05:42→21:32)
[2018-04-27] MEDS: DILTIAZEM HCL 30 MG TABLET GT SCH ×4 (05:42→23:46)
[2018-04-27] MEDS: PANTOPRAZOLE 40 MG/PACK PACK GT SCH (05:42)
[2018-04-27] MEDS: INSULIN ASPART/LISPRO 100 UNIT/ML CARTRIDGE SQ PRN ×4 (05:43→23:48)
[2018-04-27 07:57] VITALS: BP 118/59
[2018-04-27] MEDS: DOCUSATE SODIUM LIQ 100 MG/10 ML UDC GT SCH ×2 (08:26→17:07)
[2018-04-27] MEDS: ASCORBIC ACID 500 MG TABLET GT SCH (08:27)
[2018-04-27] MEDS: ACIDOPHILUS/BULGARICUS 1 EACH TAB.CHEW GT SCH ×2 (08:27→17:07)
[2018-04-27] MEDS: LEVETIRACETAM SOL (5 ML) 100 MG/ML UDC GT SCH ×2 (08:27→21:31)
[2018-04-27] MEDS: MULTIVIT W/MINERALS 1 TAB TABLET GT SCH (08:27)
[2018-04-27] MEDS: ZINC SULFATE 220 MG CAPSULE GT SCH (08:27)
[2018-04-27] MEDS: VALSARTAN 80 MG TABLET GT SCH (08:27)
[2018-04-27] MEDS: FERROUS SULFATE - FOR SA ONLY 330 MG/7.5 ML UDC GT SCH (08:27)
[2018-04-27] MEDS: HYDROGEN PEROXIDE 480 ML BOTTLE TP SCH ×2 (08:28→22:00)
[2018-04-27] MEDS: Z GUARD REMEDY 2 OZ OINT TP SCH ×2 (08:28→21:33)
[2018-04-27] MEDS: ACETAMINOPHEN 650 MG/20 ML UDC- SA PATIENTS-PAIN ONLY GT SCH ×2 (08:29→21:32)
[2018-04-27] MEDS: GLUCERNA 1.5 1,000 ML BOTTLE GT PRN (08:59)
[2018-04-27] MEDS: Z GUARD REMEDY 4 OZ OINT TP SCH (09:48)
[2018-04-27] MEDS: DAKINS QUARTER STRENGTH (0.125%) 480 ML BOTTLE TOP SCH ×2 (09:48→22:00)
--- NOTE | 2018-04-27 10:23 | NUR ---
Resident's daughter Kelly Wong was informed that the resident will be moving to room 274. She appreciated the information.
--- NOTE | 2018-04-27 11:00 | NUR ---
Notified Dr. Javier Pineda that patient on IVF x 2L for hydration due to elevated BUN 74 and seen BMP result done on 04/26/18. He said he will review the labs. NNO given at this time. There will be a repeat BMP previously ordered by Kennedi Bender on04/30/18.
--- NOTE | 2018-04-27 11:18 | NUR ---
The resident was seen by Dr. Saldana (ctc operator) for yearly optometry visit.
[2018-04-27 20:05] VITALS: BP 111/48
[2018-04-27] MEDS: ENOXAPARIN SODIUM 40 MG/0.4 ML DISP.SYRIN SQ SCH (21:33)
[2018-04-27] MEDS: ATORVASTATIN 10 MG TABLET GT SCH (21:33)
[2018-04-27] MEDS: INSULIN GLARGINE, 100 UNIT/ML CARTRIDGE SQ SCH (21:35)
[2018-04-28] MEDS: ABREVA CREAM TP SCH ×9 (00:10→23:17)
[2018-04-28] MEDS: ALBUTEROL FS 2.5 MG/0.5 ML VIAL.NEB NEB SCH ×4 (01:41→19:48)
[2018-04-28] MEDS: IPRATROPIUM NEB FS 0.5 MG/2.5 ML AMPUL.NEB NEB SCH ×4 (01:41→19:48)
[2018-04-28] MEDS: AMOXICILLIN TRIHYDRATE 250 MG CAPSULE PO SCH (05:56)
[2018-04-28] MEDS: GLUCERNA 1.5 1,000 ML BOTTLE GT PRN (05:57)
[2018-04-28] MEDS: INSULIN ASPART/LISPRO 100 UNIT/ML CARTRIDGE SQ PRN ×4 (05:57→23:19)
[2018-04-28] MEDS: BLOOD SUGAR DIAGNOSTIC 1 EACH STRIP IN SCH ×4 (05:57→23:17)
[2018-04-28] MEDS: PANTOPRAZOLE 40 MG/PACK PACK GT SCH (05:57)
[2018-04-28] MEDS: DILTIAZEM HCL 30 MG TABLET GT SCH ×4 (05:57→23:17)
[2018-04-28 08:00] VITALS: BP 96/45
[2018-04-28] MEDS: VALSARTAN 80 MG TABLET GT SCH (09:00)
[2018-04-28] MEDS: DOCUSATE SODIUM LIQ 100 MG/10 ML UDC GT SCH ×2 (09:33→17:10)
[2018-04-28] MEDS: ACIDOPHILUS/BULGARICUS 1 EACH TAB.CHEW GT SCH ×2 (09:34→17:10)
[2018-04-28] MEDS: FERROUS SULFATE - FOR SA ONLY 330 MG/7.5 ML UDC GT SCH (09:34)
[2018-04-28] MEDS: LEVETIRACETAM SOL (5 ML) 100 MG/ML UDC GT SCH ×2 (09:34→20:28)
[2018-04-28] MEDS: MULTIVIT W/MINERALS 1 TAB TABLET GT SCH (09:36)
[2018-04-28] MEDS: ACETAMINOPHEN 650 MG/20 ML UDC- SA PATIENTS-PAIN ONLY GT SCH ×2 (09:37→20:30)
[2018-04-28] MEDS: ZINC SULFATE 220 MG CAPSULE GT SCH (09:38)
[2018-04-28] MEDS: ASCORBIC ACID 500 MG TABLET GT SCH (09:38)
[2018-04-28] MEDS: Z GUARD REMEDY 4 OZ OINT TP SCH (10:30)
[2018-04-28] MEDS: Z GUARD REMEDY 2 OZ OINT TP SCH ×2 (10:30→20:30)
[2018-04-28] MEDS: DAKINS QUARTER STRENGTH (0.125%) 480 ML BOTTLE TOP SCH ×2 (10:30→21:02)
[2018-04-28] MEDS: HYDROGEN PEROXIDE 480 ML BOTTLE TP SCH ×2 (10:30→20:30)
--- NOTE | 2018-04-28 10:39 | NUR ---
Relayed final urine culture to Lilibeth Woods NP (e.coli/ p mirabilis urine). Order obtained to DC Amoxicillin and change antibiotic to Augmentin 875mg q 12 hrs via GT x 7 days. Order carried out.
[2018-04-28] MEDS: AMOX/CLAVULANATE 875 MG TABLET GT SCH ×2 (13:43→23:17)
[2018-04-28 20:01] VITALS: BP 130/76
[2018-04-28] MEDS: ENOXAPARIN SODIUM 40 MG/0.4 ML DISP.SYRIN SQ SCH (20:29)
[2018-04-28] MEDS: ATORVASTATIN 10 MG TABLET GT SCH (21:02)
[2018-04-28] MEDS: INSULIN GLARGINE, 100 UNIT/ML CARTRIDGE SQ SCH (21:09)
[2018-04-29] MEDS: ALBUTEROL FS 2.5 MG/0.5 ML VIAL.NEB NEB SCH ×4 (01:47→19:46)
[2018-04-29] MEDS: IPRATROPIUM NEB FS 0.5 MG/2.5 ML AMPUL.NEB NEB SCH ×4 (01:47→19:46)
[2018-04-29] MEDS: ABREVA CREAM TP SCH ×7 (03:35→21:09)
[2018-04-29] MEDS: GLUCERNA 1.5 1,000 ML BOTTLE GT PRN ×2 (05:34→15:10)
[2018-04-29] MEDS: BLOOD SUGAR DIAGNOSTIC 1 EACH STRIP IN SCH ×3 (05:34→17:33)
[2018-04-29] MEDS: DILTIAZEM HCL 30 MG TABLET GT SCH ×3 (05:34→17:33)
[2018-04-29] MEDS: PANTOPRAZOLE 40 MG/PACK PACK GT SCH (05:34)
[2018-04-29] MEDS: INSULIN ASPART/LISPRO 100 UNIT/ML CARTRIDGE SQ PRN ×3 (05:35→17:34)
[2018-04-29 07:51] VITALS: BP 119/70
[2018-04-29] MEDS: AMOX/CLAVULANATE 875 MG TABLET GT SCH ×2 (09:55→21:06)
[2018-04-29] MEDS: DOCUSATE SODIUM LIQ 100 MG/10 ML UDC GT SCH ×2 (09:55→17:05)
[2018-04-29] MEDS: VALSARTAN 80 MG TABLET GT SCH (09:55)
[2018-04-29] MEDS: LEVETIRACETAM SOL (5 ML) 100 MG/ML UDC GT SCH ×2 (09:56→21:06)
[2018-04-29] MEDS: MULTIVIT W/MINERALS 1 TAB TABLET GT SCH (09:56)
[2018-04-29] MEDS: FERROUS SULFATE - FOR SA ONLY 330 MG/7.5 ML UDC GT SCH (09:56)
[2018-04-29] MEDS: ACIDOPHILUS/BULGARICUS 1 EACH TAB.CHEW GT SCH ×2 (09:56→17:05)
[2018-04-29] MEDS: ACETAMINOPHEN 650 MG/20 ML UDC- SA PATIENTS-PAIN ONLY GT SCH ×2 (09:57→21:06)
[2018-04-29] MEDS: ASCORBIC ACID 500 MG TABLET GT SCH (09:57)
[2018-04-29] MEDS: ZINC SULFATE 220 MG CAPSULE GT SCH (09:57)
[2018-04-29] MEDS: HYDROGEN PEROXIDE 480 ML BOTTLE TP SCH ×2 (09:58→21:09)
[2018-04-29] MEDS: DAKINS QUARTER STRENGTH (0.125%) 480 ML BOTTLE TOP SCH ×2 (09:58→21:09)
[2018-04-29] MEDS: Z GUARD REMEDY 2 OZ OINT TP SCH ×2 (09:58→21:09)
[2018-04-29] MEDS: Z GUARD REMEDY 4 OZ OINT TP SCH (09:58)
[2018-04-29 19:56] VITALS: BP 120/69
[2018-04-29] MEDS: ATORVASTATIN 10 MG TABLET GT SCH (21:09)
[2018-04-29] MEDS: INSULIN GLARGINE, 100 UNIT/ML CARTRIDGE SQ SCH (21:09)
[2018-04-29] MEDS: ENOXAPARIN SODIUM 40 MG/0.4 ML DISP.SYRIN SQ SCH (21:09)
[2018-04-30] MEDS: ALBUTEROL FS 2.5 MG/0.5 ML VIAL.NEB NEB SCH ×4 (00:36→19:46)
[2018-04-30] MEDS: IPRATROPIUM NEB FS 0.5 MG/2.5 ML AMPUL.NEB NEB SCH ×4 (00:36→19:46)
[2018-04-30] MEDS: DILTIAZEM HCL 30 MG TABLET GT SCH ×5 (00:42→23:49)
[2018-04-30] MEDS: BLOOD SUGAR DIAGNOSTIC 1 EACH STRIP IN SCH ×5 (00:42→23:49)
[2018-04-30] MEDS: ABREVA CREAM TP SCH ×9 (00:43→23:49)
[2018-04-30] MEDS: INSULIN ASPART/LISPRO 100 UNIT/ML CARTRIDGE SQ PRN ×5 (00:43→23:50)
[2018-04-30] MEDS: PANTOPRAZOLE 40 MG/PACK PACK GT SCH (05:17)
[2018-04-30 07:24] LABS: CALCIUM, SERUM 8.8 mg/dL (8.5-10.1); CREATININE 0.7 mg/dL (0.6-1.3); POTASSIUM 5.2 mmol/L (3.5-5.1)
[2018-04-30 08:13] VITALS: BP 135/69
[2018-04-30] MEDS: DOCUSATE SODIUM LIQ 100 MG/10 ML UDC GT SCH ×2 (09:46→17:36)
[2018-04-30] MEDS: PROSTAT (PYXIS) 30 ML UDC GT SCH ×2 (09:46→17:36)
[2018-04-30] MEDS: MULTIVIT W/MINERALS 1 TAB TABLET GT SCH (09:46)
[2018-04-30] MEDS: LEVETIRACETAM SOL (5 ML) 100 MG/ML UDC GT SCH ×2 (09:46→21:03)
[2018-04-30] MEDS: VALSARTAN 80 MG TABLET GT SCH (09:46)
[2018-04-30] MEDS: AMOX/CLAVULANATE 875 MG TABLET GT SCH ×2 (09:46→21:03)
[2018-04-30] MEDS: FERROUS SULFATE - FOR SA ONLY 330 MG/7.5 ML UDC GT SCH (09:46)
[2018-04-30] MEDS: ACIDOPHILUS/BULGARICUS 1 EACH TAB.CHEW GT SCH ×2 (09:46→17:36)
[2018-04-30] MEDS: DAKINS QUARTER STRENGTH (0.125%) 480 ML BOTTLE TOP SCH ×2 (09:47→21:04)
[2018-04-30] MEDS: ASCORBIC ACID 500 MG TABLET GT SCH (09:47)
[2018-04-30] MEDS: ZINC SULFATE 220 MG CAPSULE GT SCH (09:47)
[2018-04-30] MEDS: HYDROGEN PEROXIDE 480 ML BOTTLE TP SCH ×2 (09:47→21:04)
[2018-04-30] MEDS: ACETAMINOPHEN 650 MG/20 ML UDC- SA PATIENTS-PAIN ONLY GT SCH ×2 (09:47→21:03)
[2018-04-30] MEDS: Z GUARD REMEDY 2 OZ OINT TP SCH ×2 (09:48→21:04)
[2018-04-30] MEDS: Z GUARD REMEDY 4 OZ OINT TP SCH (09:48)
[2018-04-30 20:00] VITALS: BP 127/81
[2018-04-30] MEDS: ATORVASTATIN 10 MG TABLET GT SCH (21:04)
[2018-04-30] MEDS: ENOXAPARIN SODIUM 40 MG/0.4 ML DISP.SYRIN SQ SCH (21:04)
[2018-04-30] MEDS: INSULIN GLARGINE, 100 UNIT/ML CARTRIDGE SQ SCH (21:05)
[2018-05-01] MEDS: PROSTAT (PYXIS) 30 ML UDC GT SCH ×3 (01:00→17:01)
[2018-05-01] MEDS: IPRATROPIUM NEB FS 0.5 MG/2.5 ML AMPUL.NEB NEB SCH ×4 (01:28→20:05)
[2018-05-01] MEDS: ALBUTEROL FS 2.5 MG/0.5 ML VIAL.NEB NEB SCH ×4 (01:31→20:05)
[2018-05-01] MEDS: ABREVA CREAM TP SCH ×8 (03:20→23:13)
[2018-05-01] MEDS: DILTIAZEM HCL 30 MG TABLET GT SCH ×4 (05:56→23:13)
[2018-05-01] MEDS: PANTOPRAZOLE 40 MG/PACK PACK GT SCH (05:56)
[2018-05-01] MEDS: BLOOD SUGAR DIAGNOSTIC 1 EACH STRIP IN SCH ×4 (05:56→23:13)
[2018-05-01 07:41] VITALS: BP 104/63
[2018-05-01] MEDS: Z GUARD REMEDY 2 OZ OINT TP SCH ×2 (09:00→20:58)
[2018-05-01] MEDS: Z GUARD REMEDY 4 OZ OINT TP SCH (09:00)
[2018-05-01] MEDS: VALSARTAN 80 MG TABLET GT SCH (09:00)
[2018-05-01] MEDS: HYDROGEN PEROXIDE 480 ML BOTTLE TP SCH ×2 (09:00→20:58)
[2018-05-01] MEDS: AMOX/CLAVULANATE 875 MG TABLET GT SCH ×2 (09:30→20:56)
[2018-05-01] MEDS: FERROUS SULFATE - FOR SA ONLY 330 MG/7.5 ML UDC GT SCH (09:30)
[2018-05-01] MEDS: DOCUSATE SODIUM LIQ 100 MG/10 ML UDC GT SCH ×2 (09:30→17:01)
[2018-05-01] MEDS: LEVETIRACETAM SOL (5 ML) 100 MG/ML UDC GT SCH ×2 (09:31→20:56)
[2018-05-01] MEDS: MULTIVIT W/MINERALS 1 TAB TABLET GT SCH (09:31)
[2018-05-01] MEDS: ACIDOPHILUS/BULGARICUS 1 EACH TAB.CHEW GT SCH ×2 (09:31→17:01)
[2018-05-01] MEDS: ACETAMINOPHEN 650 MG/20 ML UDC- SA PATIENTS-PAIN ONLY GT SCH ×2 (09:32→20:56)
[2018-05-01] MEDS: ZINC SULFATE 220 MG CAPSULE GT SCH (09:32)
[2018-05-01] MEDS: ASCORBIC ACID 500 MG TABLET GT SCH (09:32)
[2018-05-01] MEDS: DAKINS QUARTER STRENGTH (0.125%) 480 ML BOTTLE TOP SCH ×2 (09:32→20:58)
[2018-05-01] MEDS: INSULIN ASPART/LISPRO 100 UNIT/ML CARTRIDGE SQ PRN ×3 (12:41→23:14)
[2018-05-01 20:37] VITALS: BP 122/71
[2018-05-01] MEDS: ENOXAPARIN SODIUM 40 MG/0.4 ML DISP.SYRIN SQ SCH (20:58)
[2018-05-01] MEDS: ATORVASTATIN 10 MG TABLET GT SCH (21:00)
[2018-05-01] MEDS: INSULIN GLARGINE, 100 UNIT/ML CARTRIDGE SQ SCH (21:01)
[2018-05-02] MEDS: PROSTAT (PYXIS) 30 ML UDC GT SCH ×3 (01:00→17:39)
[2018-05-02] MEDS: IPRATROPIUM NEB FS 0.5 MG/2.5 ML AMPUL.NEB NEB SCH ×4 (01:37→20:28)
[2018-05-02] MEDS: ALBUTEROL FS 2.5 MG/0.5 ML VIAL.NEB NEB SCH ×4 (01:37→20:28)
[2018-05-02] MEDS: ABREVA CREAM TP SCH ×2 (03:14→05:38)
[2018-05-02] MEDS: PANTOPRAZOLE 40 MG/PACK PACK GT SCH (05:37)
[2018-05-02] MEDS: DILTIAZEM HCL 30 MG TABLET GT SCH ×4 (05:37→23:56)
[2018-05-02] MEDS: BLOOD SUGAR DIAGNOSTIC 1 EACH STRIP IN SCH ×4 (05:38→23:56)
[2018-05-02 08:02] VITALS: BP 144/96
--- NOTE | 2018-05-02 09:52 | NUR ---
RT REC'D TRACH PT ON COOL AEROSOL. TRACH TUBE PATENT, SECURE, IN PLACE, AMBU BAG/BACK UP TRACH @ BEDSIDE. HHN TX GIVEN PER MD ORDERS WITH NO ADVERSE REACTION NOTED. SX DONE PRN. TRACH SECURED AND PATENT. NO RESP DISTRESS NOTED AT THIS TIME. WILL CONTINUE TO MONITOR. Addendum: 05/02/18 at 0954 by JL GARCIA RT Amended: Links added.
[2018-05-02] MEDS: DOCUSATE SODIUM LIQ 100 MG/10 ML UDC GT SCH ×2 (09:55→17:39)
[2018-05-02] MEDS: AMOX/CLAVULANATE 875 MG TABLET GT SCH ×2 (09:55→21:04)
[2018-05-02] MEDS: MULTIVIT W/MINERALS 1 TAB TABLET GT SCH (09:56)
[2018-05-02] MEDS: ACETAMINOPHEN 650 MG/20 ML UDC- SA PATIENTS-PAIN ONLY GT SCH ×2 (09:56→21:04)
[2018-05-02] MEDS: ASCORBIC ACID 500 MG TABLET GT SCH (09:56)
[2018-05-02] MEDS: ACIDOPHILUS/BULGARICUS 1 EACH TAB.CHEW GT SCH ×2 (09:56→17:39)
[2018-05-02] MEDS: ZINC SULFATE 220 MG CAPSULE GT SCH (09:56)
[2018-05-02] MEDS: VALSARTAN 80 MG TABLET GT SCH (09:56)
[2018-05-02] MEDS: LEVETIRACETAM SOL (5 ML) 100 MG/ML UDC GT SCH ×2 (09:56→21:04)
[2018-05-02] MEDS: FERROUS SULFATE - FOR SA ONLY 330 MG/7.5 ML UDC GT SCH (09:56)
[2018-05-02] MEDS: HYDROGEN PEROXIDE 480 ML BOTTLE TP SCH ×2 (10:56→21:05)
[2018-05-02] MEDS: DAKINS QUARTER STRENGTH (0.125%) 480 ML BOTTLE TOP SCH ×2 (10:56→21:11)
[2018-05-02] MEDS: Z GUARD REMEDY 4 OZ OINT TP SCH (10:56)
[2018-05-02] MEDS: Z GUARD REMEDY 2 OZ OINT TP SCH ×2 (10:56→21:05)
[2018-05-02] MEDS: ONDANSETRON 4 MG TAB.RAPDIS GT PRN (12:22)
[2018-05-02] MEDS: INSULIN ASPART/LISPRO 100 UNIT/ML CARTRIDGE SQ PRN ×3 (12:42→23:57)
[2018-05-02 20:10] VITALS: BP 143/80
[2018-05-02] MEDS: ENOXAPARIN SODIUM 40 MG/0.4 ML DISP.SYRIN SQ SCH (21:05)
[2018-05-02] MEDS: ATORVASTATIN 10 MG TABLET GT SCH (21:05)
[2018-05-02] MEDS: INSULIN GLARGINE, 100 UNIT/ML CARTRIDGE SQ SCH (21:11)
[2018-05-03] MEDS: ALBUTEROL FS 2.5 MG/0.5 ML VIAL.NEB NEB SCH ×4 (01:28→19:25)
[2018-05-03] MEDS: IPRATROPIUM NEB FS 0.5 MG/2.5 ML AMPUL.NEB NEB SCH ×4 (01:28→19:25)
[2018-05-03] MEDS: DILTIAZEM HCL 30 MG TABLET GT SCH ×3 (05:19→17:10)
[2018-05-03] MEDS: PANTOPRAZOLE 40 MG/PACK PACK GT SCH (05:19)
[2018-05-03] MEDS: BLOOD SUGAR DIAGNOSTIC 1 EACH STRIP IN SCH ×3 (05:34→17:10)
[2018-05-03] MEDS: INSULIN ASPART/LISPRO 100 UNIT/ML CARTRIDGE SQ PRN ×3 (05:34→17:10)
[2018-05-03] MEDS: ACIDOPHILUS/BULGARICUS 1 EACH TAB.CHEW GT SCH ×2 (09:57→16:51)
[2018-05-03] MEDS: FERROUS SULFATE - FOR SA ONLY 330 MG/7.5 ML UDC GT SCH (09:57)
[2018-05-03] MEDS: PROSTAT (PYXIS) 30 ML UDC GT SCH ×3 (09:57→16:51)
[2018-05-03] MEDS: ZINC SULFATE 220 MG CAPSULE GT SCH (09:57)
[2018-05-03] MEDS: ASCORBIC ACID 500 MG TABLET GT SCH (09:57)
[2018-05-03] MEDS: DOCUSATE SODIUM LIQ 100 MG/10 ML UDC GT SCH ×2 (09:57→16:51)
[2018-05-03] MEDS: LEVETIRACETAM SOL (5 ML) 100 MG/ML UDC GT SCH ×2 (09:59→21:13)
[2018-05-03] MEDS: MULTIVIT W/MINERALS 1 TAB TABLET GT SCH (09:59)
[2018-05-03] MEDS: VALSARTAN 80 MG TABLET GT SCH (09:59)
[2018-05-03] MEDS: ACETAMINOPHEN 650 MG/20 ML UDC- SA PATIENTS-PAIN ONLY GT SCH ×2 (10:00→21:14)
[2018-05-03] MEDS: AMOX/CLAVULANATE 875 MG TABLET GT SCH ×2 (10:00→21:13)
[2018-05-03] MEDS: HYDROGEN PEROXIDE 480 ML BOTTLE TP SCH ×2 (11:00→21:16)
[2018-05-03] MEDS: DAKINS QUARTER STRENGTH (0.125%) 480 ML BOTTLE TOP SCH ×2 (11:00→21:16)
[2018-05-03] MEDS: Z GUARD REMEDY 4 OZ OINT TP SCH (11:00)
[2018-05-03] MEDS: Z GUARD REMEDY 2 OZ OINT TP SCH ×2 (11:00→21:16)
[2018-05-03 12:02] VITALS: BP 139/69
[2018-05-03] MEDS: GLUCERNA 1.2 1,000 ML BOTTLE GT PRN (15:20)
[2018-05-03 19:51] VITALS: BP 128/73
--- NOTE | 2018-05-03 20:06 | NUR ---
Patient received on 28% cool aerosol t-tube, tolerating with no sign of distress/SOB. Suctioned with lavage for minimal, thin, white secretions. Given in-line treatments with no adverse reactions. Ambu bag at bedside. Addendum: 05/03/18 at 2008 by KAISER LAW RT Amended: Links added.
[2018-05-03] MEDS: ENOXAPARIN SODIUM 40 MG/0.4 ML DISP.SYRIN SQ SCH (21:16)
[2018-05-03] MEDS: ATORVASTATIN 10 MG TABLET GT SCH (21:16)
[2018-05-03] MEDS: INSULIN GLARGINE, 100 UNIT/ML CARTRIDGE SQ SCH (21:17)
[2018-05-04] MEDS: PROSTAT (PYXIS) 30 ML UDC GT SCH ×3 (00:09→17:36)
[2018-05-04] MEDS: BLOOD SUGAR DIAGNOSTIC 1 EACH STRIP IN SCH ×5 (00:09→23:41)
[2018-05-04] MEDS: INSULIN ASPART/LISPRO 100 UNIT/ML CARTRIDGE SQ PRN ×5 (00:10→23:43)
[2018-05-04] MEDS: IPRATROPIUM NEB FS 0.5 MG/2.5 ML AMPUL.NEB NEB SCH ×4 (02:12→19:33)
[2018-05-04] MEDS: ALBUTEROL FS 2.5 MG/0.5 ML VIAL.NEB NEB SCH ×4 (02:12→19:33)
[2018-05-04] MEDS: DILTIAZEM HCL 30 MG TABLET GT SCH ×5 (05:52→23:41)
[2018-05-04] MEDS: PANTOPRAZOLE 40 MG/PACK PACK GT SCH (05:52)
[2018-05-04 07:46] VITALS: BP 140/72
[2018-05-04] MEDS: DAKINS QUARTER STRENGTH (0.125%) 480 ML BOTTLE TOP SCH ×2 (09:00→20:45)
[2018-05-04] MEDS: Z GUARD REMEDY 4 OZ OINT TP SCH (09:00)
[2018-05-04] MEDS: HYDROGEN PEROXIDE 480 ML BOTTLE TP SCH ×2 (09:00→20:45)
[2018-05-04] MEDS: Z GUARD REMEDY 2 OZ OINT TP SCH ×2 (09:00→20:45)
[2018-05-04] MEDS: AMOX/CLAVULANATE 875 MG TABLET GT SCH ×2 (09:38→20:44)
[2018-05-04] MEDS: DOCUSATE SODIUM LIQ 100 MG/10 ML UDC GT SCH ×2 (09:39→17:35)
[2018-05-04] MEDS: VALSARTAN 80 MG TABLET GT SCH (09:39)
[2018-05-04] MEDS: FERROUS SULFATE - FOR SA ONLY 330 MG/7.5 ML UDC GT SCH (09:39)
[2018-05-04] MEDS: ACIDOPHILUS/BULGARICUS 1 EACH TAB.CHEW GT SCH ×2 (09:40→17:35)
[2018-05-04] MEDS: LEVETIRACETAM SOL (5 ML) 100 MG/ML UDC GT SCH ×2 (09:40→20:44)
[2018-05-04] MEDS: ZINC SULFATE 220 MG CAPSULE GT SCH (09:42)
[2018-05-04] MEDS: ASCORBIC ACID 500 MG TABLET GT SCH (09:42)
[2018-05-04] MEDS: ACETAMINOPHEN 650 MG/20 ML UDC- SA PATIENTS-PAIN ONLY GT SCH ×2 (09:42→20:44)
[2018-05-04] MEDS: MULTIVIT W/MINERALS 1 TAB TABLET GT SCH (09:45)
[2018-05-04] MEDS: GLUCERNA 1.2 1,000 ML BOTTLE GT PRN (18:15)
[2018-05-04 19:53] VITALS: BP 139/73
[2018-05-04] MEDS: ENOXAPARIN SODIUM 40 MG/0.4 ML DISP.SYRIN SQ SCH (20:45)
[2018-05-04] MEDS: INSULIN GLARGINE, 100 UNIT/ML CARTRIDGE SQ SCH (21:02)
[2018-05-04] MEDS: ATORVASTATIN 10 MG TABLET GT SCH (21:02)
--- NOTE | 2018-05-04 21:10 | NUR ---
PT RCMARSHALL'D ON COOL AEROSOL WITH CHARTED SETTINGS. HHN TX GIVEN AND NO ADVERSE REACTION NOTED. SX DONE. PT TRACH PATENT AND SECURE. NO RESPIRATORY DISTRESS NOTED AT THIS TIME. AMBU BAG AT BEDSIDE. WILL CONTINUE TO MONITOR. Addendum: 05/04/18 at 2111 by JOEY PAPPAS RT Amended: Links added.
[2018-05-05] MEDS: PROSTAT (PYXIS) 30 ML UDC GT SCH ×3 (00:05→17:57)
[2018-05-05] MEDS: ALBUTEROL FS 2.5 MG/0.5 ML VIAL.NEB NEB SCH ×4 (00:59→19:29)
[2018-05-05] MEDS: IPRATROPIUM NEB FS 0.5 MG/2.5 ML AMPUL.NEB NEB SCH ×4 (00:59→19:28)
[2018-05-05] MEDS: PANTOPRAZOLE 40 MG/PACK PACK GT SCH (05:06)
[2018-05-05] MEDS: DILTIAZEM HCL 30 MG TABLET GT SCH ×4 (05:06→23:22)
[2018-05-05] MEDS: BLOOD SUGAR DIAGNOSTIC 1 EACH STRIP IN SCH ×4 (06:34→23:21)
[2018-05-05] MEDS: INSULIN ASPART/LISPRO 100 UNIT/ML CARTRIDGE SQ PRN ×4 (06:35→23:23)
[2018-05-05 08:04] VITALS: BP 126/70
[2018-05-05] MEDS: DOCUSATE SODIUM LIQ 100 MG/10 ML UDC GT SCH ×2 (09:39→17:57)
[2018-05-05] MEDS: VALSARTAN 80 MG TABLET GT SCH (09:39)
[2018-05-05] MEDS: ACIDOPHILUS/BULGARICUS 1 EACH TAB.CHEW GT SCH ×2 (09:41→17:57)
[2018-05-05] MEDS: FERROUS SULFATE - FOR SA ONLY 330 MG/7.5 ML UDC GT SCH (09:41)
[2018-05-05] MEDS: LEVETIRACETAM SOL (5 ML) 100 MG/ML UDC GT SCH ×2 (09:41→20:32)
[2018-05-05] MEDS: ZINC SULFATE 220 MG CAPSULE GT SCH (09:42)
[2018-05-05] MEDS: MULTIVIT W/MINERALS 1 TAB TABLET GT SCH (09:42)
[2018-05-05] MEDS: ASCORBIC ACID 500 MG TABLET GT SCH (09:42)
[2018-05-05] MEDS: ACETAMINOPHEN 650 MG/20 ML UDC- SA PATIENTS-PAIN ONLY GT SCH ×2 (09:42→20:33)
[2018-05-05] MEDS: DAKINS QUARTER STRENGTH (0.125%) 480 ML BOTTLE TOP SCH ×2 (10:42→20:34)
[2018-05-05] MEDS: Z GUARD REMEDY 4 OZ OINT TP SCH (10:42)
[2018-05-05] MEDS: HYDROGEN PEROXIDE 480 ML BOTTLE TP SCH ×2 (10:42→20:34)
[2018-05-05] MEDS: Z GUARD REMEDY 2 OZ OINT TP SCH ×2 (10:42→20:34)
[2018-05-05 20:24] VITALS: BP 141/65
[2018-05-05] MEDS: ENOXAPARIN SODIUM 40 MG/0.4 ML DISP.SYRIN SQ SCH (20:34)
[2018-05-05] MEDS: ATORVASTATIN 10 MG TABLET GT SCH (21:31)
--- NOTE | 2018-05-05 21:31 | NUR ---
RT NOTE: PATIENT WAS RECEIVED ON COOL AEROSOL. AMBU BAG/BACK UP TRACH @ BEDSIDE. Q6 BREATHING TX GIVEN PER MD ORDERS WITH NO ADVERSE REACTION NOTED. SUCTION DONE PRN. TRACH PATENT AND SECURED. NO RESPIRATORY DISTRESS NOTED AT THIS TIME. WILL CONTINUE TO MONITOR PATIENT Addendum: 05/05/18 at 2132 by SHYANN BARRETT RT Amended: Links added.
[2018-05-05] MEDS: INSULIN GLARGINE, 100 UNIT/ML CARTRIDGE SQ SCH (21:55)
[2018-05-06] MEDS: PROSTAT (PYXIS) 30 ML UDC GT SCH ×3 (00:22→17:05)
[2018-05-06] MEDS: IPRATROPIUM NEB FS 0.5 MG/2.5 ML AMPUL.NEB NEB SCH ×4 (01:19→20:16)
[2018-05-06] MEDS: ALBUTEROL FS 2.5 MG/0.5 ML VIAL.NEB NEB SCH ×4 (01:20→20:16)
[2018-05-06] MEDS: DILTIAZEM HCL 30 MG TABLET GT SCH ×4 (05:40→23:14)
[2018-05-06] MEDS: BLOOD SUGAR DIAGNOSTIC 1 EACH STRIP IN SCH ×4 (05:41→23:11)
[2018-05-06] MEDS: INSULIN ASPART/LISPRO 100 UNIT/ML CARTRIDGE SQ PRN ×4 (05:41→23:16)
[2018-05-06] MEDS: PANTOPRAZOLE 40 MG/PACK PACK GT SCH (05:41)
[2018-05-06] MEDS: GLUCERNA 1.2 1,000 ML BOTTLE GT PRN (05:41)
[2018-05-06] MEDS: VALSARTAN 80 MG TABLET GT SCH (09:00)
[2018-05-06] MEDS: FERROUS SULFATE - FOR SA ONLY 330 MG/7.5 ML UDC GT SCH (09:44)
[2018-05-06] MEDS: LEVETIRACETAM SOL (5 ML) 100 MG/ML UDC GT SCH ×2 (09:44→21:04)
[2018-05-06] MEDS: DOCUSATE SODIUM LIQ 100 MG/10 ML UDC GT SCH ×2 (09:44→17:05)
[2018-05-06] MEDS: MULTIVIT W/MINERALS 1 TAB TABLET GT SCH (09:45)
[2018-05-06] MEDS: ACIDOPHILUS/BULGARICUS 1 EACH TAB.CHEW GT SCH ×2 (09:45→17:05)
[2018-05-06] MEDS: ACETAMINOPHEN 650 MG/20 ML UDC- SA PATIENTS-PAIN ONLY GT SCH ×2 (09:45→21:04)
[2018-05-06] MEDS: DAKINS QUARTER STRENGTH (0.125%) 480 ML BOTTLE TOP SCH ×2 (09:46→21:05)
[2018-05-06] MEDS: ASCORBIC ACID 500 MG TABLET GT SCH (09:46)
[2018-05-06] MEDS: ZINC SULFATE 220 MG CAPSULE GT SCH (09:46)
[2018-05-06] MEDS: HYDROGEN PEROXIDE 480 ML BOTTLE TP SCH ×2 (09:54→21:05)
[2018-05-06] MEDS: Z GUARD REMEDY 2 OZ OINT TP SCH ×2 (09:55→21:05)
[2018-05-06] MEDS: Z GUARD REMEDY 4 OZ OINT TP SCH (09:55)
[2018-05-06 12:38] VITALS: BP 107/65
[2018-05-06 20:39] VITALS: BP 108/59
[2018-05-06] MEDS: ATORVASTATIN 10 MG TABLET GT SCH (21:05)
[2018-05-06] MEDS: ENOXAPARIN SODIUM 40 MG/0.4 ML DISP.SYRIN SQ SCH (21:30)
[2018-05-06] MEDS: INSULIN GLARGINE, 100 UNIT/ML CARTRIDGE SQ SCH (21:31)
[2018-05-07] MEDS: PROSTAT (PYXIS) 30 ML UDC GT SCH ×3 (00:05→17:21)
[2018-05-07] MEDS: ALBUTEROL FS 2.5 MG/0.5 ML VIAL.NEB NEB SCH ×4 (02:27→20:18)
[2018-05-07] MEDS: IPRATROPIUM NEB FS 0.5 MG/2.5 ML AMPUL.NEB NEB SCH ×4 (02:27→20:18)
[2018-05-07] MEDS: GLUCERNA 1.2 1,000 ML BOTTLE GT PRN (02:39)
[2018-05-07] MEDS: BLOOD SUGAR DIAGNOSTIC 1 EACH STRIP IN SCH ×4 (05:30→23:35)
[2018-05-07] MEDS: PANTOPRAZOLE 40 MG/PACK PACK GT SCH (05:32)
[2018-05-07] MEDS: DILTIAZEM HCL 30 MG TABLET GT SCH ×4 (05:36→23:35)
[2018-05-07] MEDS: INSULIN ASPART/LISPRO 100 UNIT/ML CARTRIDGE SQ PRN ×3 (05:50→17:55)
[2018-05-07 07:58] VITALS: BP 123/70
[2018-05-07] MEDS: HYDROGEN PEROXIDE 480 ML BOTTLE TP SCH ×2 (09:00→21:57)
[2018-05-07] MEDS: DAKINS QUARTER STRENGTH (0.125%) 480 ML BOTTLE TOP SCH ×2 (09:00→21:57)
[2018-05-07] MEDS: Z GUARD REMEDY 4 OZ OINT TP SCH (09:00)
[2018-05-07] MEDS: Z GUARD REMEDY 2 OZ OINT TP SCH ×2 (09:00→21:57)
[2018-05-07] MEDS: DOCUSATE SODIUM LIQ 100 MG/10 ML UDC GT SCH ×2 (09:56→17:21)
[2018-05-07] MEDS: VALSARTAN 80 MG TABLET GT SCH (09:57)
[2018-05-07] MEDS: MULTIVIT W/MINERALS 1 TAB TABLET GT SCH (09:57)
[2018-05-07] MEDS: FERROUS SULFATE - FOR SA ONLY 330 MG/7.5 ML UDC GT SCH (09:57)
[2018-05-07] MEDS: LEVETIRACETAM SOL (5 ML) 100 MG/ML UDC GT SCH ×2 (09:57→21:19)
[2018-05-07] MEDS: ACIDOPHILUS/BULGARICUS 1 EACH TAB.CHEW GT SCH ×2 (09:57→17:21)
[2018-05-07] MEDS: ZINC SULFATE 220 MG CAPSULE GT SCH (09:58)
[2018-05-07] MEDS: ASCORBIC ACID 500 MG TABLET GT SCH (09:58)
[2018-05-07] MEDS: ACETAMINOPHEN 650 MG/20 ML UDC- SA PATIENTS-PAIN ONLY GT SCH ×2 (09:58→21:20)
[2018-05-07 20:00] VITALS: BP 128/75
[2018-05-07] MEDS: ATORVASTATIN 10 MG TABLET GT SCH (21:20)
[2018-05-07] MEDS: ENOXAPARIN SODIUM 40 MG/0.4 ML DISP.SYRIN SQ SCH (21:20)
[2018-05-07] MEDS: INSULIN GLARGINE, 100 UNIT/ML CARTRIDGE SQ SCH (21:21)
[2018-05-08] MEDS: PROSTAT (PYXIS) 30 ML UDC GT SCH ×3 (00:52→17:28)
[2018-05-08] MEDS: IPRATROPIUM NEB FS 0.5 MG/2.5 ML AMPUL.NEB NEB SCH ×4 (01:12→19:50)
[2018-05-08] MEDS: ALBUTEROL FS 2.5 MG/0.5 ML VIAL.NEB NEB SCH ×4 (01:12→19:50)
[2018-05-08] MEDS: DILTIAZEM HCL 30 MG TABLET GT SCH ×3 (05:33→18:15)
[2018-05-08] MEDS: PANTOPRAZOLE 40 MG/PACK PACK GT SCH (05:33)
[2018-05-08] MEDS: BLOOD SUGAR DIAGNOSTIC 1 EACH STRIP IN SCH ×3 (05:43→18:15)
[2018-05-08 07:45] VITALS: BP 101/78
[2018-05-08] MEDS: VALSARTAN 80 MG TABLET GT SCH (09:00)
[2018-05-08] MEDS: DOCUSATE SODIUM LIQ 100 MG/10 ML UDC GT SCH ×2 (09:27→17:28)
[2018-05-08] MEDS: FERROUS SULFATE - FOR SA ONLY 330 MG/7.5 ML UDC GT SCH (09:27)
[2018-05-08] MEDS: LEVETIRACETAM SOL (5 ML) 100 MG/ML UDC GT SCH ×2 (09:27→21:24)
[2018-05-08] MEDS: ZINC SULFATE 220 MG CAPSULE GT SCH (09:28)
[2018-05-08] MEDS: MULTIVIT W/MINERALS 1 TAB TABLET GT SCH (09:28)
[2018-05-08] MEDS: ACIDOPHILUS/BULGARICUS 1 EACH TAB.CHEW GT SCH ×2 (09:28→17:28)
[2018-05-08] MEDS: ASCORBIC ACID 500 MG TABLET GT SCH (09:28)
[2018-05-08] MEDS: ACETAMINOPHEN 650 MG/20 ML UDC- SA PATIENTS-PAIN ONLY GT SCH ×2 (09:28→21:25)
[2018-05-08] MEDS: HYDROGEN PEROXIDE 480 ML BOTTLE TP SCH ×2 (09:29→21:25)
[2018-05-08] MEDS: Z GUARD REMEDY 4 OZ OINT TP SCH (09:29)
[2018-05-08] MEDS: Z GUARD REMEDY 2 OZ OINT TP SCH ×2 (09:29→21:25)
[2018-05-08] MEDS: DAKINS QUARTER STRENGTH (0.125%) 480 ML BOTTLE TOP SCH ×2 (09:29→21:25)
[2018-05-08] MEDS: INSULIN ASPART/LISPRO 100 UNIT/ML CARTRIDGE SQ PRN ×2 (13:32→18:22)
[2018-05-08 20:00] VITALS: BP 122/64
[2018-05-08 20:20] VITALS: BP 122/64
[2018-05-08] MEDS: ATORVASTATIN 10 MG TABLET GT SCH (21:26)
[2018-05-08] MEDS: ENOXAPARIN SODIUM 40 MG/0.4 ML DISP.SYRIN SQ SCH (21:29)
[2018-05-08] MEDS: INSULIN GLARGINE, 100 UNIT/ML CARTRIDGE SQ SCH (22:04)
[2018-05-09] MEDS: BLOOD SUGAR DIAGNOSTIC 1 EACH STRIP IN SCH ×5 (00:19→23:39)
[2018-05-09] MEDS: DILTIAZEM HCL 30 MG TABLET GT SCH ×5 (00:41→23:39)
[2018-05-09] MEDS: INSULIN ASPART/LISPRO 100 UNIT/ML CARTRIDGE SQ PRN ×5 (01:00→23:40)
[2018-05-09] MEDS: PROSTAT (PYXIS) 30 ML UDC GT SCH ×3 (01:22→17:27)
[2018-05-09] MEDS: GLUCERNA 1.2 1,000 ML BOTTLE GT PRN (02:16)
[2018-05-09] MEDS: IPRATROPIUM NEB FS 0.5 MG/2.5 ML AMPUL.NEB NEB SCH ×4 (02:25→19:52)
[2018-05-09] MEDS: ALBUTEROL FS 2.5 MG/0.5 ML VIAL.NEB NEB SCH ×4 (02:25→19:52)
[2018-05-09] MEDS: PANTOPRAZOLE 40 MG/PACK PACK GT SCH (06:09)
[2018-05-09 07:47] VITALS: BP 118/83
[2018-05-09] MEDS: ACETAMINOPHEN 650 MG/20 ML UDC- SA PATIENTS-PAIN ONLY GT SCH ×2 (09:00→21:21)
[2018-05-09] MEDS: ACIDOPHILUS/BULGARICUS 1 EACH TAB.CHEW GT SCH ×2 (09:00→17:27)
[2018-05-09] MEDS: ZINC SULFATE 220 MG CAPSULE GT SCH (09:00)
[2018-05-09] MEDS: ASCORBIC ACID 500 MG TABLET GT SCH (09:00)
[2018-05-09] MEDS: HYDROGEN PEROXIDE 480 ML BOTTLE TP SCH ×2 (09:00→22:00)
[2018-05-09] MEDS: DAKINS QUARTER STRENGTH (0.125%) 480 ML BOTTLE TOP SCH ×2 (09:00→22:00)
[2018-05-09] MEDS: Z GUARD REMEDY 4 OZ OINT TP SCH (09:00)
[2018-05-09] MEDS: Z GUARD REMEDY 2 OZ OINT TP SCH ×2 (09:00→22:00)
[2018-05-09] MEDS: MULTIVIT W/MINERALS 1 TAB TABLET GT SCH (09:00)
[2018-05-09] MEDS: LEVETIRACETAM SOL (5 ML) 100 MG/ML UDC GT SCH ×2 (09:00→21:21)
[2018-05-09] MEDS: DOCUSATE SODIUM LIQ 100 MG/10 ML UDC GT SCH ×2 (09:59→17:27)
[2018-05-09] MEDS: VALSARTAN 80 MG TABLET GT SCH (09:59)
[2018-05-09] MEDS: FERROUS SULFATE - FOR SA ONLY 330 MG/7.5 ML UDC GT SCH (10:00)
--- NOTE | 2018-05-09 17:55 | NUR ---
Notified Lilibeth Franklin that patient has slight hematuria, afebrile at 98.8, 121/59, HR 89, O2 sat 98%. New order given to send for urine culture. Spoke with Kelly (daughter) and notified of new order. She said she will try to come and see her mother tomorrow. Endorsed.
--- NOTE | 2018-05-09 20:02 | NUR ---
PT RCVD TRACH'D ON COOL AEROSOL 28% 5L, BREATHING TX GIVEN AND NO ADVERSE REACTION NOTED. SX DONE. NO RESPIRATORY DISTRESS NOTED AT THIS TIME. AMBU BAG AT BEDSIDE. WILL CONTINUE TO MONITOR.
[2018-05-09 20:42] VITALS: BP 91/59
[2018-05-09] MEDS: ENOXAPARIN SODIUM 40 MG/0.4 ML DISP.SYRIN SQ SCH (21:22)
[2018-05-09] MEDS: ATORVASTATIN 10 MG TABLET GT SCH (21:23)
[2018-05-09] MEDS: INSULIN GLARGINE, 100 UNIT/ML CARTRIDGE SQ SCH (21:28)
[2018-05-10] MEDS: PROSTAT (PYXIS) 30 ML UDC GT SCH ×3 (00:26→17:11)
[2018-05-10] MEDS: ALBUTEROL FS 2.5 MG/0.5 ML VIAL.NEB NEB SCH ×4 (00:55→19:53)
[2018-05-10] MEDS: IPRATROPIUM NEB FS 0.5 MG/2.5 ML AMPUL.NEB NEB SCH ×4 (00:55→19:53)
[2018-05-10] MEDS: PANTOPRAZOLE 40 MG/PACK PACK GT SCH (05:38)
[2018-05-10] MEDS: DILTIAZEM HCL 30 MG TABLET GT SCH ×4 (05:38→23:35)
[2018-05-10] MEDS: BLOOD SUGAR DIAGNOSTIC 1 EACH STRIP IN SCH ×4 (06:04→23:34)
[2018-05-10] MEDS: INSULIN ASPART/LISPRO 100 UNIT/ML CARTRIDGE SQ PRN ×4 (06:05→23:36)
--- NOTE | 2018-05-10 06:29 | NUR ---
Pt still with blood tinged urine/pinkish.Afebrile.will continue to monitor pending urine culture result.
[2018-05-10 08:08] VITALS: BP 142/69
[2018-05-10] MEDS: HYDROGEN PEROXIDE 480 ML BOTTLE TP SCH ×2 (09:00→20:06)
[2018-05-10] MEDS: DAKINS QUARTER STRENGTH (0.125%) 480 ML BOTTLE TOP SCH ×2 (09:00→20:06)
[2018-05-10] MEDS: Z GUARD REMEDY 2 OZ OINT TP SCH ×2 (09:00→20:06)
[2018-05-10] MEDS: Z GUARD REMEDY 4 OZ OINT TP SCH (09:00)
[2018-05-10] MEDS: ACETAMINOPHEN 650 MG/20 ML UDC- SA PATIENTS-PAIN ONLY GT SCH ×2 (09:55→20:06)
[2018-05-10] MEDS: DOCUSATE SODIUM LIQ 100 MG/10 ML UDC GT SCH ×2 (09:55→17:11)
[2018-05-10] MEDS: ASCORBIC ACID 500 MG TABLET GT SCH (09:55)
[2018-05-10] MEDS: ACIDOPHILUS/BULGARICUS 1 EACH TAB.CHEW GT SCH ×2 (09:55→17:11)
[2018-05-10] MEDS: MULTIVIT W/MINERALS 1 TAB TABLET GT SCH (09:55)
[2018-05-10] MEDS: FERROUS SULFATE - FOR SA ONLY 330 MG/7.5 ML UDC GT SCH (09:55)
[2018-05-10] MEDS: LEVETIRACETAM SOL (5 ML) 100 MG/ML UDC GT SCH ×2 (09:55→20:06)
[2018-05-10] MEDS: VALSARTAN 80 MG TABLET GT SCH (09:55)
[2018-05-10] MEDS: ZINC SULFATE 220 MG CAPSULE GT SCH (09:56)
[2018-05-10] MEDS: GLUCERNA 1.2 1,000 ML BOTTLE GT PRN (12:21)
--- NOTE | 2018-05-10 18:23 | NUR ---
Dr Elliott Mclain debrided pt's left buttock wound today. Pt tolerated procedure well. No new order.
--- NOTE | 2018-05-10 20:04 | NUR ---
PT RCVD TRACH PORTEX 9 ON COOL AEROSOL 28% 5L, BREATHING TX GIVEN AND NO ADVERSE REACTION NOTED. SX DONE. NO RESPIRATORY DISTRESS NOTED AT THIS TIME. AMBU BAG AT BEDSIDE. WILL CONTINUE TO MONITOR.
[2018-05-10] MEDS: ENOXAPARIN SODIUM 40 MG/0.4 ML DISP.SYRIN SQ SCH (20:06)
[2018-05-10 20:18] VITALS: BP 118/65
[2018-05-10] MEDS: ATORVASTATIN 10 MG TABLET GT SCH (21:03)
[2018-05-10] MEDS: INSULIN GLARGINE, 100 UNIT/ML CARTRIDGE SQ SCH (21:55)
[2018-05-11] MEDS: ALBUTEROL FS 2.5 MG/0.5 ML VIAL.NEB NEB SCH ×4 (01:17→19:32)
[2018-05-11] MEDS: IPRATROPIUM NEB FS 0.5 MG/2.5 ML AMPUL.NEB NEB SCH ×4 (01:17→19:32)
[2018-05-11] MEDS: PROSTAT (PYXIS) 30 ML UDC GT SCH ×3 (01:40→17:24)
[2018-05-11] MEDS: PANTOPRAZOLE 40 MG/PACK PACK GT SCH (05:29)
[2018-05-11] MEDS: INSULIN ASPART/LISPRO 100 UNIT/ML CARTRIDGE SQ PRN ×2 (05:30→11:44)
[2018-05-11] MEDS: BLOOD SUGAR DIAGNOSTIC 1 EACH STRIP IN SCH ×3 (05:30→17:24)
[2018-05-11] MEDS: DILTIAZEM HCL 30 MG TABLET GT SCH ×3 (05:30→17:24)
[2018-05-11 07:53] VITALS: BP 126/88
[2018-05-11] MEDS: ZINC SULFATE 220 MG CAPSULE GT SCH (09:00)
[2018-05-11] MEDS: HYDROGEN PEROXIDE 480 ML BOTTLE TP SCH ×2 (09:00→20:32)
[2018-05-11] MEDS: Z GUARD REMEDY 4 OZ OINT TP SCH (09:00)
[2018-05-11] MEDS: Z GUARD REMEDY 2 OZ OINT TP SCH ×2 (09:00→20:32)
[2018-05-11] MEDS: ASCORBIC ACID 500 MG TABLET GT SCH (09:00)
[2018-05-11] MEDS: ACETAMINOPHEN 650 MG/20 ML UDC- SA PATIENTS-PAIN ONLY GT SCH ×2 (09:00→20:31)
[2018-05-11] MEDS: MULTIVIT W/MINERALS 1 TAB TABLET GT SCH (09:00)
[2018-05-11] MEDS: DAKINS QUARTER STRENGTH (0.125%) 480 ML BOTTLE TOP SCH ×2 (09:00→20:32)
[2018-05-11] MEDS: LEVETIRACETAM SOL (5 ML) 100 MG/ML UDC GT SCH ×2 (09:59→20:30)
[2018-05-11] MEDS: DOCUSATE SODIUM LIQ 100 MG/10 ML UDC GT SCH ×2 (09:59→17:23)
[2018-05-11] MEDS: FERROUS SULFATE - FOR SA ONLY 330 MG/7.5 ML UDC GT SCH (09:59)
[2018-05-11] MEDS: VALSARTAN 80 MG TABLET GT SCH (09:59)
[2018-05-11] MEDS: ACIDOPHILUS/BULGARICUS 1 EACH TAB.CHEW GT SCH ×2 (09:59→17:23)
[2018-05-11] MEDS: GLUCERNA 1.2 1,000 ML BOTTLE GT PRN (17:24)
[2018-05-11 20:13] VITALS: BP 116/71
[2018-05-11] MEDS: ENOXAPARIN SODIUM 40 MG/0.4 ML DISP.SYRIN SQ SCH (20:32)
[2018-05-11] MEDS: ATORVASTATIN 10 MG TABLET GT SCH (21:14)
[2018-05-11] MEDS: INSULIN GLARGINE, 100 UNIT/ML CARTRIDGE SQ SCH (21:15)
[2018-05-12] MEDS: BLOOD SUGAR DIAGNOSTIC 1 EACH STRIP IN SCH ×5 (00:18→23:15)
[2018-05-12] MEDS: DILTIAZEM HCL 30 MG TABLET GT SCH ×5 (00:18→23:15)
[2018-05-12] MEDS: INSULIN ASPART/LISPRO 100 UNIT/ML CARTRIDGE SQ PRN ×5 (00:19→23:16)
[2018-05-12] MEDS: PROSTAT (PYXIS) 30 ML UDC GT SCH ×3 (00:21→17:23)
[2018-05-12] MEDS: ALBUTEROL FS 2.5 MG/0.5 ML VIAL.NEB NEB SCH ×4 (00:58→19:59)
[2018-05-12] MEDS: IPRATROPIUM NEB FS 0.5 MG/2.5 ML AMPUL.NEB NEB SCH ×4 (00:58→19:59)
[2018-05-12] MEDS: PANTOPRAZOLE 40 MG/PACK PACK GT SCH (05:30)
[2018-05-12 07:55] VITALS: BP 136/61
[2018-05-12] MEDS: DAKINS QUARTER STRENGTH (0.125%) 480 ML BOTTLE TOP SCH ×2 (09:00→20:36)
[2018-05-12] MEDS: HYDROGEN PEROXIDE 480 ML BOTTLE TP SCH ×2 (09:00→20:36)
[2018-05-12] MEDS: Z GUARD REMEDY 4 OZ OINT TP SCH (09:00)
[2018-05-12] MEDS: Z GUARD REMEDY 2 OZ OINT TP SCH ×2 (09:00→20:36)
[2018-05-12] MEDS: FERROUS SULFATE - FOR SA ONLY 330 MG/7.5 ML UDC GT SCH (09:38)
[2018-05-12] MEDS: DOCUSATE SODIUM LIQ 100 MG/10 ML UDC GT SCH ×2 (09:38→17:22)
[2018-05-12] MEDS: LEVETIRACETAM SOL (5 ML) 100 MG/ML UDC GT SCH ×2 (09:39→20:35)
[2018-05-12] MEDS: ACIDOPHILUS/BULGARICUS 1 EACH TAB.CHEW GT SCH ×2 (09:39→17:22)
[2018-05-12] MEDS: MULTIVIT W/MINERALS 1 TAB TABLET GT SCH (09:40)
[2018-05-12] MEDS: ZINC SULFATE 220 MG CAPSULE GT SCH (09:41)
[2018-05-12] MEDS: ACETAMINOPHEN 650 MG/20 ML UDC- SA PATIENTS-PAIN ONLY GT SCH ×2 (09:41→20:36)
[2018-05-12] MEDS: VALSARTAN 80 MG TABLET GT SCH (09:41)
[2018-05-12] MEDS: ASCORBIC ACID 500 MG TABLET GT SCH (09:41)
--- NOTE | 2018-05-12 18:04 | NUR ---
Urine culture result sent to MILLY Mcelroy, no reply received pls follow up. No hematuria/ dysuria, no fever noted. Will continue with plan of care.
[2018-05-12] MEDS: GLUCERNA 1.2 1,000 ML BOTTLE GT PRN (18:42)
[2018-05-12 20:12] VITALS: BP 137/86
[2018-05-12] MEDS: ENOXAPARIN SODIUM 40 MG/0.4 ML DISP.SYRIN SQ SCH (20:36)
[2018-05-12] MEDS: ATORVASTATIN 10 MG TABLET GT SCH (21:18)
[2018-05-12] MEDS: INSULIN GLARGINE, 100 UNIT/ML CARTRIDGE SQ SCH (21:19)
[2018-05-13] MEDS: PROSTAT (PYXIS) 30 ML UDC GT SCH ×3 (00:19→16:41)
[2018-05-13] MEDS: ALBUTEROL FS 2.5 MG/0.5 ML VIAL.NEB NEB SCH ×4 (01:47→19:37)
[2018-05-13] MEDS: IPRATROPIUM NEB FS 0.5 MG/2.5 ML AMPUL.NEB NEB SCH ×4 (01:47→19:37)
[2018-05-13] MEDS: PANTOPRAZOLE 40 MG/PACK PACK GT SCH (05:43)
[2018-05-13] MEDS: INSULIN ASPART/LISPRO 100 UNIT/ML CARTRIDGE SQ PRN ×2 (05:43→12:28)
[2018-05-13] MEDS: DILTIAZEM HCL 30 MG TABLET GT SCH ×3 (05:43→17:56)
[2018-05-13] MEDS: BLOOD SUGAR DIAGNOSTIC 1 EACH STRIP IN SCH ×3 (05:43→17:56)
[2018-05-13 07:34] VITALS: BP 119/68
[2018-05-13 08:03] LABS: BASOPHILS # (AUTO) 0.1 /CMM (0.0-0.2); EOSINOPHILS % (AUTO) 3.7 % (0.0-6.0); HEMATOCRIT 36 % (33-45); HEMOGLOBIN 11.8 g/dL (11.5-14.8); LYMPHOCYTES # (AUTO) 2.3 /CMM (0.8-4.8); LYMPHOCYTES % (AUTO) 38.9 % (20.0-44.0); MEAN CORPUSCULAR HGB CONC 33 g/dl (31.0-36.0); MEAN CORPUSCULAR VOLUME 93 fL (82-100); MONOCYTES # (AUTO) 0.4 /CMM (0.1-1.30); MONOCYTES % (AUTO) 6.6 % (2.0-12.0); NEUTROPHILS # (AUTO) 2.9 /CMM (1.8-8.9); NEUTROPHILS % (AUTO) 49.8 % (43.0-81.0); PLATELET COUNT (AUTO) 343 /CMM (150-450); RED BLOOD CELL COUNT(AUTO) 3.91 MIL/uL (4.0-5.2); WHITE BLOOD COUNT (AUTO) 5.9 K/uL (4.3-11.0)
[2018-05-13] MEDS: FERROUS SULFATE - FOR SA ONLY 330 MG/7.5 ML UDC GT SCH (08:58)
[2018-05-13] MEDS: VALSARTAN 80 MG TABLET GT SCH (08:58)
[2018-05-13] MEDS: ACIDOPHILUS/BULGARICUS 1 EACH TAB.CHEW GT SCH ×2 (08:58→16:41)
[2018-05-13] MEDS: DOCUSATE SODIUM LIQ 100 MG/10 ML UDC GT SCH ×2 (08:58→16:41)
[2018-05-13] MEDS: LEVETIRACETAM SOL (5 ML) 100 MG/ML UDC GT SCH ×2 (08:58→21:28)
[2018-05-13] MEDS: MULTIVIT W/MINERALS 1 TAB TABLET GT SCH (08:58)
[2018-05-13] MEDS: DAKINS QUARTER STRENGTH (0.125%) 480 ML BOTTLE TOP SCH ×2 (08:59→21:29)
[2018-05-13] MEDS: ZINC SULFATE 220 MG CAPSULE GT SCH (08:59)
[2018-05-13] MEDS: ASCORBIC ACID 500 MG TABLET GT SCH (08:59)
[2018-05-13] MEDS: ACETAMINOPHEN 650 MG/20 ML UDC- SA PATIENTS-PAIN ONLY GT SCH ×2 (08:59→21:28)
[2018-05-13] MEDS: Z GUARD REMEDY 2 OZ OINT TP SCH ×2 (09:00→21:29)
[2018-05-13] MEDS: Z GUARD REMEDY 4 OZ OINT TP SCH (09:00)
[2018-05-13] MEDS: HYDROGEN PEROXIDE 480 ML BOTTLE TP SCH ×2 (09:00→21:29)
--- NOTE | 2018-05-13 18:49 | NUR ---
Informed Kelly that urine culture shows bacteria ( E. Coli and Proteus Mirabilis) but the doctor decided not to treat because patient is asymptomatic. CBC done today was reported to Lilibeth Franklin NP NNO given. WBC 5.9 , T 98.4. Kelly said to keep an eye on that and assured her that V/S are checked every shift and if she develops fever, the doctor is notified. Endorsed.
[2018-05-13 19:49] VITALS: BP 134/69
[2018-05-13] MEDS: ENOXAPARIN SODIUM 40 MG/0.4 ML DISP.SYRIN SQ SCH (21:29)
[2018-05-13] MEDS: ATORVASTATIN 10 MG TABLET GT SCH (21:29)
[2018-05-13] MEDS: INSULIN GLARGINE, 100 UNIT/ML CARTRIDGE SQ SCH (21:31)
[2018-05-14] MEDS: DILTIAZEM HCL 30 MG TABLET GT SCH ×5 (00:14→23:13)
[2018-05-14] MEDS: PROSTAT (PYXIS) 30 ML UDC GT SCH ×3 (00:15→17:56)
[2018-05-14] MEDS: BLOOD SUGAR DIAGNOSTIC 1 EACH STRIP IN SCH ×5 (00:15→23:13)
[2018-05-14] MEDS: INSULIN ASPART/LISPRO 100 UNIT/ML CARTRIDGE SQ PRN ×5 (00:17→23:14)
[2018-05-14] MEDS: ALBUTEROL FS 2.5 MG/0.5 ML VIAL.NEB NEB SCH ×4 (01:14→19:43)
[2018-05-14] MEDS: IPRATROPIUM NEB FS 0.5 MG/2.5 ML AMPUL.NEB NEB SCH ×4 (01:14→19:43)
--- NOTE | 2018-05-14 02:22 | NUR ---
PT RCJUSTO TRACH'D ON COOL AEROSOL WITH CHARTED SETTINGS. HHN TX GIVEN WITH NO ADVERSE REACTION NOTED. SX DONE. PT TRACH PATENT AND SECURE. NO RESPIRATORY DISTRESS NOTED AT THIS TIME. AMBU BAG AT BEDSIDE. WILL CONTINUE TO MONITOR. Addendum: 05/14/18 at 0223 by JOEY PAPPAS RT Amended: Links added.
[2018-05-14] MEDS: PANTOPRAZOLE 40 MG/PACK PACK GT SCH (05:32)
[2018-05-14] MEDS: GLUCERNA 1.2 1,000 ML BOTTLE GT PRN (05:32)
[2018-05-14 07:44] VITALS: BP 101/65
[2018-05-14] MEDS: VALSARTAN 80 MG TABLET GT SCH (09:00)
[2018-05-14] MEDS: DOCUSATE SODIUM LIQ 100 MG/10 ML UDC GT SCH ×2 (09:43→17:56)
[2018-05-14] MEDS: ACIDOPHILUS/BULGARICUS 1 EACH TAB.CHEW GT SCH ×2 (09:44→17:56)
[2018-05-14] MEDS: MULTIVIT W/MINERALS 1 TAB TABLET GT SCH (09:44)
[2018-05-14] MEDS: LEVETIRACETAM SOL (5 ML) 100 MG/ML UDC GT SCH ×2 (09:44→21:11)
[2018-05-14] MEDS: FERROUS SULFATE - FOR SA ONLY 330 MG/7.5 ML UDC GT SCH (09:44)
[2018-05-14] MEDS: ACETAMINOPHEN 650 MG/20 ML UDC- SA PATIENTS-PAIN ONLY GT SCH ×2 (09:44→21:11)
[2018-05-14] MEDS: ZINC SULFATE 220 MG CAPSULE GT SCH (09:46)
[2018-05-14] MEDS: ASCORBIC ACID 500 MG TABLET GT SCH (09:46)
[2018-05-14] MEDS: Z GUARD REMEDY 2 OZ OINT TP SCH ×2 (10:44→21:51)
[2018-05-14] MEDS: DAKINS QUARTER STRENGTH (0.125%) 480 ML BOTTLE TOP SCH ×2 (10:44→21:51)
[2018-05-14] MEDS: Z GUARD REMEDY 4 OZ OINT TP SCH (10:44)
[2018-05-14] MEDS: HYDROGEN PEROXIDE 480 ML BOTTLE TP SCH ×2 (10:44→21:51)
--- NOTE | 2018-05-14 16:05 | NUR ---
SW spoke to resident's daughter on the phone communicating upcoming IDT mtg this MondayMay 19 at 12:30. Daughter will not be attending
[2018-05-14] MEDS: ACETAMINOPHEN 650 MG/20 ML UDC- SA PATIENTS-PAIN ONLY GT PRN (17:57)
[2018-05-14 19:48] VITALS: BP 123/60
[2018-05-14] MEDS: ATORVASTATIN 10 MG TABLET GT SCH (21:12)
[2018-05-14] MEDS: ENOXAPARIN SODIUM 40 MG/0.4 ML DISP.SYRIN SQ SCH (21:12)
[2018-05-14] MEDS: INSULIN GLARGINE, 100 UNIT/ML CARTRIDGE SQ SCH (21:13)
[2018-05-15] MEDS: PROSTAT (PYXIS) 30 ML UDC GT SCH ×3 (00:17→17:15)
[2018-05-15] MEDS: IPRATROPIUM NEB FS 0.5 MG/2.5 ML AMPUL.NEB NEB SCH ×4 (01:21→20:02)
[2018-05-15] MEDS: ALBUTEROL FS 2.5 MG/0.5 ML VIAL.NEB NEB SCH ×4 (01:21→20:02)
[2018-05-15] MEDS: DILTIAZEM HCL 30 MG TABLET GT SCH ×4 (05:42→23:21)
[2018-05-15] MEDS: PANTOPRAZOLE 40 MG/PACK PACK GT SCH (05:42)
[2018-05-15] MEDS: BLOOD SUGAR DIAGNOSTIC 1 EACH STRIP IN SCH ×4 (05:47→23:21)
[2018-05-15] MEDS: INSULIN ASPART/LISPRO 100 UNIT/ML CARTRIDGE SQ PRN ×3 (05:48→23:23)
[2018-05-15 07:51] VITALS: BP 95/49
[2018-05-15] MEDS: VALSARTAN 80 MG TABLET GT SCH (09:00)
[2018-05-15] MEDS: DOCUSATE SODIUM LIQ 100 MG/10 ML UDC GT SCH ×2 (09:13→17:15)
[2018-05-15] MEDS: ASCORBIC ACID 500 MG TABLET GT SCH (09:14)
[2018-05-15] MEDS: ACIDOPHILUS/BULGARICUS 1 EACH TAB.CHEW GT SCH ×2 (09:14→17:15)
[2018-05-15] MEDS: FERROUS SULFATE - FOR SA ONLY 330 MG/7.5 ML UDC GT SCH (09:14)
[2018-05-15] MEDS: LEVETIRACETAM SOL (5 ML) 100 MG/ML UDC GT SCH ×2 (09:14→20:52)
[2018-05-15] MEDS: ACETAMINOPHEN 650 MG/20 ML UDC- SA PATIENTS-PAIN ONLY GT SCH ×2 (09:14→20:52)
[2018-05-15] MEDS: ZINC SULFATE 220 MG CAPSULE GT SCH (09:14)
[2018-05-15] MEDS: MULTIVIT W/MINERALS 1 TAB TABLET GT SCH (09:14)
[2018-05-15] MEDS: Z GUARD REMEDY 4 OZ OINT TP SCH (09:44)
[2018-05-15] MEDS: HYDROGEN PEROXIDE 480 ML BOTTLE TP SCH ×2 (09:44→21:27)
[2018-05-15] MEDS: DAKINS QUARTER STRENGTH (0.125%) 480 ML BOTTLE TOP SCH ×2 (09:44→21:26)
[2018-05-15] MEDS: Z GUARD REMEDY 2 OZ OINT TP SCH ×2 (09:44→21:27)
[2018-05-15] MEDS: GLUCERNA 1.2 1,000 ML BOTTLE GT PRN (12:45)
--- NOTE | 2018-05-15 18:47 | NUR ---
Seen by WOLFGANG Lew. Received order for RNA to place bilateral hand rolls post splint application and check for skin integrity every 2 hours.
[2018-05-15 19:57] VITALS: BP 124/72
[2018-05-15] MEDS: ENOXAPARIN SODIUM 40 MG/0.4 ML DISP.SYRIN SQ SCH (21:00)
[2018-05-15] MEDS: ATORVASTATIN 10 MG TABLET GT SCH (21:01)
[2018-05-15] MEDS: INSULIN GLARGINE, 100 UNIT/ML CARTRIDGE SQ SCH (21:17)
[2018-05-16] MEDS: PROSTAT (PYXIS) 30 ML UDC GT SCH ×3 (00:34→17:32)
[2018-05-16] MEDS: IPRATROPIUM NEB FS 0.5 MG/2.5 ML AMPUL.NEB NEB SCH ×4 (01:39→19:30)
[2018-05-16] MEDS: ALBUTEROL FS 2.5 MG/0.5 ML VIAL.NEB NEB SCH ×4 (01:39→19:30)
[2018-05-16] MEDS: PANTOPRAZOLE 40 MG/PACK PACK GT SCH (05:44)
[2018-05-16] MEDS: DILTIAZEM HCL 30 MG TABLET GT SCH ×4 (05:44→23:10)
[2018-05-16] MEDS: BLOOD SUGAR DIAGNOSTIC 1 EACH STRIP IN SCH ×4 (05:58→23:10)
[2018-05-16] MEDS: Z GUARD REMEDY 2 OZ OINT TP SCH ×2 (09:00→21:57)
[2018-05-16] MEDS: Z GUARD REMEDY 4 OZ OINT TP SCH (09:00)
[2018-05-16] MEDS: HYDROGEN PEROXIDE 480 ML BOTTLE TP SCH ×2 (09:00→21:57)
[2018-05-16] MEDS: DAKINS QUARTER STRENGTH (0.125%) 480 ML BOTTLE TOP SCH ×2 (09:00→21:57)
[2018-05-16] MEDS: VALSARTAN 80 MG TABLET GT SCH (09:33)
[2018-05-16] MEDS: DOCUSATE SODIUM LIQ 100 MG/10 ML UDC GT SCH ×2 (09:33→17:32)
[2018-05-16] MEDS: ACIDOPHILUS/BULGARICUS 1 EACH TAB.CHEW GT SCH ×2 (09:33→17:32)
[2018-05-16] MEDS: FERROUS SULFATE - FOR SA ONLY 330 MG/7.5 ML UDC GT SCH (09:33)
[2018-05-16] MEDS: LEVETIRACETAM SOL (5 ML) 100 MG/ML UDC GT SCH ×2 (09:33→21:11)
[2018-05-16] MEDS: ZINC SULFATE 220 MG CAPSULE GT SCH (09:34)
[2018-05-16] MEDS: MULTIVIT W/MINERALS 1 TAB TABLET GT SCH (09:34)
[2018-05-16] MEDS: ASCORBIC ACID 500 MG TABLET GT SCH (09:34)
[2018-05-16] MEDS: ACETAMINOPHEN 650 MG/20 ML UDC- SA PATIENTS-PAIN ONLY GT SCH ×2 (09:34→21:11)
[2018-05-16 12:09] VITALS: BP 128/77
[2018-05-16] MEDS: INSULIN ASPART/LISPRO 100 UNIT/ML CARTRIDGE SQ PRN ×2 (12:51→23:11)
[2018-05-16 20:23] VITALS: BP 144/74
[2018-05-16] MEDS: ATORVASTATIN 10 MG TABLET GT SCH (21:12)
[2018-05-16] MEDS: ENOXAPARIN SODIUM 40 MG/0.4 ML DISP.SYRIN SQ SCH (21:12)
[2018-05-16] MEDS: INSULIN GLARGINE, 100 UNIT/ML CARTRIDGE SQ SCH (21:16)
[2018-05-17] MEDS: PROSTAT (PYXIS) 30 ML UDC GT SCH ×3 (00:07→17:24)
[2018-05-17] MEDS: IPRATROPIUM NEB FS 0.5 MG/2.5 ML AMPUL.NEB NEB SCH ×4 (00:42→19:47)
[2018-05-17] MEDS: ALBUTEROL FS 2.5 MG/0.5 ML VIAL.NEB NEB SCH ×4 (00:42→19:47)
[2018-05-17] MEDS: PANTOPRAZOLE 40 MG/PACK PACK GT SCH (05:37)
[2018-05-17] MEDS: BLOOD SUGAR DIAGNOSTIC 1 EACH STRIP IN SCH ×3 (05:37→17:24)
[2018-05-17] MEDS: DILTIAZEM HCL 30 MG TABLET GT SCH ×3 (05:37→17:25)
[2018-05-17] MEDS: INSULIN ASPART/LISPRO 100 UNIT/ML CARTRIDGE SQ PRN ×2 (05:38→12:38)
[2018-05-17 07:43] VITALS: BP 128/68
[2018-05-17] MEDS: ACIDOPHILUS/BULGARICUS 1 EACH TAB.CHEW GT SCH ×2 (09:00→17:24)
[2018-05-17] MEDS: LEVETIRACETAM SOL (5 ML) 100 MG/ML UDC GT SCH ×2 (09:00→21:09)
[2018-05-17] MEDS: Z GUARD REMEDY 4 OZ OINT TP SCH (09:00)
[2018-05-17] MEDS: DOCUSATE SODIUM LIQ 100 MG/10 ML UDC GT SCH ×2 (09:00→17:24)
[2018-05-17] MEDS: HYDROGEN PEROXIDE 480 ML BOTTLE TP SCH ×2 (09:00→21:10)
[2018-05-17] MEDS: ASCORBIC ACID 500 MG TABLET GT SCH (09:00)
[2018-05-17] MEDS: MULTIVIT W/MINERALS 1 TAB TABLET GT SCH (09:00)
[2018-05-17] MEDS: ZINC SULFATE 220 MG CAPSULE GT SCH (09:00)
[2018-05-17] MEDS: ACETAMINOPHEN 650 MG/20 ML UDC- SA PATIENTS-PAIN ONLY GT SCH ×2 (09:00→21:10)
[2018-05-17] MEDS: Z GUARD REMEDY 2 OZ OINT TP SCH ×2 (09:00→21:10)
[2018-05-17] MEDS: VALSARTAN 80 MG TABLET GT SCH (09:00)
[2018-05-17] MEDS: DAKINS QUARTER STRENGTH (0.125%) 480 ML BOTTLE TOP SCH ×2 (09:00→21:10)
[2018-05-17] MEDS: FERROUS SULFATE - FOR SA ONLY 330 MG/7.5 ML UDC GT SCH (09:00)
[2018-05-17] MEDS: GLUCERNA 1.2 1,000 ML BOTTLE GT PRN (12:37)
[2018-05-17 19:34] VITALS: BP 114/61
[2018-05-17] MEDS: ATORVASTATIN 10 MG TABLET GT SCH (21:10)
[2018-05-17] MEDS: ENOXAPARIN SODIUM 40 MG/0.4 ML DISP.SYRIN SQ SCH (21:10)
[2018-05-17] MEDS: INSULIN GLARGINE, 100 UNIT/ML CARTRIDGE SQ SCH (21:11)
[2018-05-18] MEDS: BLOOD SUGAR DIAGNOSTIC 1 EACH STRIP IN SCH ×5 (00:36→23:24)
[2018-05-18] MEDS: DILTIAZEM HCL 30 MG TABLET GT SCH ×4 (00:36→17:06)
[2018-05-18] MEDS: INSULIN ASPART/LISPRO 100 UNIT/ML CARTRIDGE SQ PRN ×4 (00:37→23:26)
[2018-05-18] MEDS: PROSTAT (PYXIS) 30 ML UDC GT SCH ×3 (00:37→17:05)
[2018-05-18] MEDS: hydrALAZINE HCL 10 MG TABLET GT PRN (00:38)
[2018-05-18] MEDS: ALBUTEROL FS 2.5 MG/0.5 ML VIAL.NEB NEB SCH ×4 (01:59→14:36)
[2018-05-18] MEDS: IPRATROPIUM NEB FS 0.5 MG/2.5 ML AMPUL.NEB NEB SCH ×4 (01:59→19:34)
[2018-05-18] MEDS: PANTOPRAZOLE 40 MG/PACK PACK GT SCH (05:29)
[2018-05-18 07:44] VITALS: BP 131/70
[2018-05-18] MEDS: Z GUARD REMEDY 4 OZ OINT TP SCH (09:00)
[2018-05-18] MEDS: DAKINS QUARTER STRENGTH (0.125%) 480 ML BOTTLE TOP SCH ×2 (09:00→21:44)
[2018-05-18] MEDS: Z GUARD REMEDY 2 OZ OINT TP SCH ×2 (09:00→21:44)
[2018-05-18] MEDS: HYDROGEN PEROXIDE 480 ML BOTTLE TP SCH ×2 (09:00→21:44)
[2018-05-18] MEDS: FERROUS SULFATE - FOR SA ONLY 330 MG/7.5 ML UDC GT SCH (09:46)
[2018-05-18] MEDS: VALSARTAN 80 MG TABLET GT SCH (09:46)
[2018-05-18] MEDS: DOCUSATE SODIUM LIQ 100 MG/10 ML UDC GT SCH ×2 (09:46→17:05)
[2018-05-18] MEDS: MULTIVIT W/MINERALS 1 TAB TABLET GT SCH (09:47)
[2018-05-18] MEDS: ZINC SULFATE 220 MG CAPSULE GT SCH (09:47)
[2018-05-18] MEDS: ACETAMINOPHEN 650 MG/20 ML UDC- SA PATIENTS-PAIN ONLY GT SCH ×2 (09:47→21:42)
[2018-05-18] MEDS: ASCORBIC ACID 500 MG TABLET GT SCH (09:47)
[2018-05-18] MEDS: ACIDOPHILUS/BULGARICUS 1 EACH TAB.CHEW GT SCH ×2 (09:47→17:05)
[2018-05-18] MEDS: LEVETIRACETAM SOL (5 ML) 100 MG/ML UDC GT SCH ×2 (09:47→21:42)
[2018-05-18 10:26] LABS: CREATININE 0.8 mg/dL (0.6-1.3); MAGNESIUM 2.4 mg/dL (1.8-2.4); PHOSPHORUS 4.6 mg/dL (2.5-4.9); POTASSIUM 6.1 mmol/L (3.5-5.1)
[2018-05-18] MEDS: GLUCERNA 1.2 1,000 ML BOTTLE GT PRN (12:40)
[2018-05-18 13:02] LABS: BASOPHILS # (AUTO) 0.1 /CMM (0.0-0.2); BASOPHILS % (AUTO) 1.4 % (0.0-2.0); EOSINOPHILS % (AUTO) 3.8 % (0.0-6.0); HEMATOCRIT 34 % (33-45); HEMOGLOBIN 11.1 g/dL (11.5-14.8); LYMPHOCYTES # (AUTO) 3.1 /CMM (0.8-4.8); LYMPHOCYTES % (AUTO) 37.1 % (20.0-44.0); MEAN CORPUSCULAR HGB CONC 32 g/dl (31.0-36.0); MEAN CORPUSCULAR VOLUME 92 fL (82-100); MONOCYTES # (AUTO) 0.6 /CMM (0.1-1.30); MONOCYTES % (AUTO) 7.4 % (2.0-12.0); NEUTROPHILS # (AUTO) 4.1 /CMM (1.8-8.9); NEUTROPHILS % (AUTO) 50.3 % (43.0-81.0); PLATELET COUNT (AUTO) 352 /CMM (150-450); RED BLOOD CELL COUNT(AUTO) 3.75 MIL/uL (4.0-5.2); WHITE BLOOD COUNT (AUTO) 8.2 K/uL (4.3-11.0)
--- NOTE | 2018-05-18 14:22 | NUR ---
INTERDISCIPLINARY TEAM CONFERENCE (IDT) was held today. Resident's daughter Kelly Wong was not able to attend today's IDT meeting. Dr. Capone and the interdisciplinary team reviewed the current plan of care in detail. Orders as well as treatment and medications were reviewed. No new orders were given during today's IDT meeting.
[2018-05-18 19:27] VITALS: BP 142/77
[2018-05-18 20:00] VITALS: BP 142/77
--- NOTE | 2018-05-18 20:20 | NUR ---
Quinton MALIK correctional captain for Dr. Pineda to relayed Potassium result of 6.1 awaiting for call back.
--- NOTE | 2018-05-18 20:35 | NUR ---
Received order from to give Kayexalate 30 gms x 1 via gt and repeat potassium level @ 1am and call Md is result is more than 5.5.Will carry out order.
--- NOTE | 2018-05-18 20:52 | NUR ---
Daughter Nathanmonica notified with new order and updated with patient condition.
[2018-05-18] MEDS ORDERED: SODIUM POLYSTYRENE SULFONATE 15 G/60 ML BOTTLE GT ONE (21:00)
[2018-05-18] MEDS: ENOXAPARIN SODIUM 40 MG/0.4 ML DISP.SYRIN SQ SCH (21:43)
[2018-05-18] MEDS: ATORVASTATIN 10 MG TABLET GT SCH (21:44)
[2018-05-18] MEDS: INSULIN GLARGINE, 100 UNIT/ML CARTRIDGE SQ SCH (21:45)
[2018-05-19] VITALS: BP 131/78
[2018-05-19] MEDS: DILTIAZEM HCL 30 MG TABLET GT SCH ×4 (00:02→18:23)
[2018-05-19] MEDS: PROSTAT (PYXIS) 30 ML UDC GT SCH ×3 (00:02→17:00)
[2018-05-19] MEDS: IPRATROPIUM NEB FS 0.5 MG/2.5 ML AMPUL.NEB NEB SCH ×4 (01:22→19:33)
[2018-05-19] MEDS: ALBUTEROL FS 2.5 MG/0.5 ML VIAL.NEB NEB SCH ×4 (01:22→19:33)
--- NOTE | 2018-05-19 01:58 | NUR ---
Patient K+ level is 142.Pt stable sleeping.
[2018-05-19] MEDS: BLOOD SUGAR DIAGNOSTIC 1 EACH STRIP IN SCH ×3 (06:06→18:22)
[2018-05-19] MEDS: PANTOPRAZOLE 40 MG/PACK PACK GT SCH (06:06)
[2018-05-19] MEDS: INSULIN ASPART/LISPRO 100 UNIT/ML CARTRIDGE SQ PRN ×2 (06:07→13:01)
--- NOTE | 2018-05-19 06:07 | NUR ---
RN NOTES: PATIENTS BLOOD SUGAR-110, NO INSULIN GIVEN PER SCALE, LATEST BP-105/77 CA-90,CARDIZEM 0600 DOSE NOT GIVEN.
[2018-05-19 08:00] VITALS: BP 145/73
[2018-05-19 08:13] VITALS: BP 145/73
[2018-05-19] MEDS: DOCUSATE SODIUM LIQ 100 MG/10 ML UDC GT SCH ×2 (09:00→17:00)
[2018-05-19] MEDS: VALSARTAN 80 MG TABLET GT SCH (09:00)
[2018-05-19] MEDS: ACIDOPHILUS/BULGARICUS 1 EACH TAB.CHEW GT SCH ×2 (09:54→17:00)
[2018-05-19] MEDS: LEVETIRACETAM SOL (5 ML) 100 MG/ML UDC GT SCH ×2 (09:54→20:45)
[2018-05-19] MEDS: MULTIVIT W/MINERALS 1 TAB TABLET GT SCH (09:55)
[2018-05-19] MEDS: ZINC SULFATE 220 MG CAPSULE GT SCH (09:57)
[2018-05-19] MEDS: ASCORBIC ACID 500 MG TABLET GT SCH (09:57)
[2018-05-19] MEDS: ACETAMINOPHEN 650 MG/20 ML UDC- SA PATIENTS-PAIN ONLY GT SCH ×2 (09:57→20:45)
[2018-05-19] MEDS: DAKINS QUARTER STRENGTH (0.125%) 480 ML BOTTLE TOP SCH ×2 (09:58→20:46)
[2018-05-19] MEDS: Z GUARD REMEDY 4 OZ OINT TP SCH (09:58)
[2018-05-19] MEDS: Z GUARD REMEDY 2 OZ OINT TP SCH ×2 (09:58→20:46)
[2018-05-19] MEDS: HYDROGEN PEROXIDE 480 ML BOTTLE TP SCH ×2 (09:58→20:46)
[2018-05-19] MEDS: FERROUS SULFATE - FOR SA ONLY 330 MG/7.5 ML UDC GT SCH (09:59)
--- NOTE | 2018-05-19 11:36 | NUR ---
Notified Dr. Martin, conference translator for Dr. Pineda that patient has hematuria, patient afebrile at 97.8. WBC result 8.2 which was taken yesterday. ordered to send urine for UA and urine culture. Order carried out. Spoke with resident's daughter Kelly and notified of hematuria in the urine and plan of care. Appreciated the call.
[2018-05-19 15:31] LABS: APPEARANCE,URINE TURBID (CLEAR)
[2018-05-19 15:32] LABS: COLOR,URINE AMBER (YELLOW); LEUKOCYTE ESTERASE ,URINE 3+ (NEGATIVE)
[2018-05-19 15:33] LABS: NITRITE, URINE NEGATIVE (NEGATIVE); UROBILINOGEN,URINE 0.2 EU/dL (0.2)
[2018-05-19 15:34] LABS: PH,URINE >8.5 (5.0-8.0); PROTEIN,URINE 3+ mg/dl (NEGATIVE)
[2018-05-19 15:35] LABS: KETONES,URINE NEGATIVE (NEGATIVE)
[2018-05-19 15:36] LABS: BILIRUBIN,URINE SMALL (NEGATIVE); UGLUCOSE NEGATIVE (NEGATIVE)
[2018-05-19 15:37] LABS: BLOOD, URINE 3+ Ery/uL (NEGATIVE)
[2018-05-19 15:41] LABS: BACTERIA,URINE Moderate /HPF (None Seen); SQUAMOUS EPITHELIAL CELL,UR Few /HPF (None Seen); WBC,URINE 21-50 /HPF (0-3)
[2018-05-19 15:42] LABS: TRIPLE PHOSPHATE CRYSTAL,UR Many /HPF (None Seen)
[2018-05-19 15:44] LABS: RBC,URINE 81-100 /HPF (0-2)
[2018-05-19] MEDS: GLUCERNA 1.2 1,000 ML BOTTLE GT PRN ×2 (18:23→21:21)
[2018-05-19 20:41] VITALS: BP 132/70
[2018-05-19] MEDS: ATORVASTATIN 10 MG TABLET GT SCH (21:20)
[2018-05-19] MEDS: INSULIN GLARGINE, 100 UNIT/ML CARTRIDGE SQ SCH (21:20)
[2018-05-19] MEDS: ENOXAPARIN SODIUM 40 MG/0.4 ML DISP.SYRIN SQ SCH (21:20)
[2018-05-20] MEDS: PROSTAT (PYXIS) 30 ML UDC GT SCH ×3 (00:12→16:33)
[2018-05-20] MEDS: BLOOD SUGAR DIAGNOSTIC 1 EACH STRIP IN SCH ×4 (00:12→18:34)
[2018-05-20] MEDS: DILTIAZEM HCL 30 MG TABLET GT SCH ×4 (00:12→18:34)
[2018-05-20] MEDS: INSULIN ASPART/LISPRO 100 UNIT/ML CARTRIDGE SQ PRN ×3 (00:13→13:47)
[2018-05-20] MEDS: hydrALAZINE HCL 10 MG TABLET GT PRN (00:13)
[2018-05-20] MEDS: IPRATROPIUM NEB FS 0.5 MG/2.5 ML AMPUL.NEB NEB SCH ×4 (01:11→19:47)
[2018-05-20] MEDS: ALBUTEROL FS 2.5 MG/0.5 ML VIAL.NEB NEB SCH ×4 (01:11→19:47)
[2018-05-20] MEDS: PANTOPRAZOLE 40 MG/PACK PACK GT SCH (05:42)
--- NOTE | 2018-05-20 07:07 | NUR ---
PATIENT REMAIN WITH HEMATURIA THE LAST NIGHT. WILL CONTINUE TO MONITOR
[2018-05-20] MEDS: HYDROGEN PEROXIDE 480 ML BOTTLE TP SCH ×2 (09:00→21:11)
[2018-05-20] MEDS: Z GUARD REMEDY 4 OZ OINT TP SCH (09:00)
[2018-05-20] MEDS: Z GUARD REMEDY 2 OZ OINT TP SCH ×2 (09:00→21:11)
[2018-05-20] MEDS: MULTIVIT W/MINERALS 1 TAB TABLET GT SCH (09:00)
[2018-05-20] MEDS: DAKINS QUARTER STRENGTH (0.125%) 480 ML BOTTLE TOP SCH ×2 (09:00→21:11)
[2018-05-20] MEDS: DOCUSATE SODIUM LIQ 100 MG/10 ML UDC GT SCH ×2 (09:08→16:33)
[2018-05-20] MEDS: ASCORBIC ACID 500 MG TABLET GT SCH (09:09)
[2018-05-20] MEDS: VALSARTAN 80 MG TABLET GT SCH (09:09)
[2018-05-20] MEDS: ACETAMINOPHEN 650 MG/20 ML UDC- SA PATIENTS-PAIN ONLY GT SCH ×2 (09:09→21:10)
[2018-05-20] MEDS: ACIDOPHILUS/BULGARICUS 1 EACH TAB.CHEW GT SCH ×2 (09:09→16:33)
[2018-05-20] MEDS: FERROUS SULFATE - FOR SA ONLY 330 MG/7.5 ML UDC GT SCH (09:09)
[2018-05-20] MEDS: LEVETIRACETAM SOL (5 ML) 100 MG/ML UDC GT SCH ×2 (09:09→21:10)
[2018-05-20] MEDS: ZINC SULFATE 220 MG CAPSULE GT SCH (09:09)
--- NOTE | 2018-05-20 15:00 | NUR ---
NO Further hematuria noted at this time, urine is cloudy. Abdomen not distended, pt. afebrile. Kept patient dry and clean at all times. Provided good jimbo care q shift. Has pending results of urine culture, waiting for sensitivity. Patient closely monitored.
[2018-05-20 15:06] VITALS: BP 132/67
[2018-05-20] MEDS: GLUCERNA 1.2 1,000 ML BOTTLE GT PRN (18:35)
[2018-05-20 20:41] VITALS: BP 134/81
[2018-05-20] MEDS: ATORVASTATIN 10 MG TABLET GT SCH (21:11)
[2018-05-20] MEDS: ENOXAPARIN SODIUM 40 MG/0.4 ML DISP.SYRIN SQ SCH (21:11)
[2018-05-20] MEDS: INSULIN GLARGINE, 100 UNIT/ML CARTRIDGE SQ SCH (21:15)
[2018-05-21] MEDS: BLOOD SUGAR DIAGNOSTIC 1 EACH STRIP IN SCH ×5 (00:07→23:56)
[2018-05-21] MEDS: PROSTAT (PYXIS) 30 ML UDC GT SCH ×3 (00:07→17:54)
[2018-05-21] MEDS: INSULIN ASPART/LISPRO 100 UNIT/ML CARTRIDGE SQ PRN ×4 (00:09→23:58)
[2018-05-21] MEDS: IPRATROPIUM NEB FS 0.5 MG/2.5 ML AMPUL.NEB NEB SCH ×4 (00:44→19:51)
[2018-05-21] MEDS: ALBUTEROL FS 2.5 MG/0.5 ML VIAL.NEB NEB SCH ×4 (00:44→19:51)
[2018-05-21] MEDS: hydrALAZINE HCL 10 MG TABLET GT PRN (01:08)
[2018-05-21] MEDS: PANTOPRAZOLE 40 MG/PACK PACK GT SCH (05:47)
[2018-05-21] MEDS: DILTIAZEM HCL 30 MG TABLET GT SCH ×5 (05:47→23:56)
[2018-05-21 08:20] VITALS: BP 121/65
[2018-05-21] MEDS: FERROUS SULFATE - FOR SA ONLY 330 MG/7.5 ML UDC GT SCH (09:00)
[2018-05-21] MEDS: Z GUARD REMEDY 2 OZ OINT TP SCH ×2 (09:00→21:45)
[2018-05-21] MEDS: DOCUSATE SODIUM LIQ 100 MG/10 ML UDC GT SCH ×2 (09:00→17:54)
[2018-05-21] MEDS: ACETAMINOPHEN 650 MG/20 ML UDC- SA PATIENTS-PAIN ONLY GT SCH ×2 (09:00→21:02)
[2018-05-21] MEDS: HYDROGEN PEROXIDE 480 ML BOTTLE TP SCH ×2 (09:00→21:45)
[2018-05-21] MEDS: DAKINS QUARTER STRENGTH (0.125%) 480 ML BOTTLE TOP SCH ×2 (09:00→21:45)
[2018-05-21] MEDS: Z GUARD REMEDY 4 OZ OINT TP SCH (09:00)
[2018-05-21] MEDS: ZINC SULFATE 220 MG CAPSULE GT SCH (09:00)
[2018-05-21] MEDS: ASCORBIC ACID 500 MG TABLET GT SCH (09:00)
[2018-05-21] MEDS: VALSARTAN 80 MG TABLET GT SCH (09:00)
[2018-05-21] MEDS: ACIDOPHILUS/BULGARICUS 1 EACH TAB.CHEW GT SCH ×2 (09:00→17:54)
[2018-05-21] MEDS: LEVETIRACETAM SOL (5 ML) 100 MG/ML UDC GT SCH ×2 (09:00→21:01)
[2018-05-21] MEDS: MULTIVIT W/MINERALS 1 TAB TABLET GT SCH (09:00)
--- NOTE | 2018-05-21 14:38 | NUR ---
Chromium Plater Section of [facility] 3rd quarter completed. Resident has a DPOA ( her daughter Kelly) who makes medical decisions on her behalf. Pt is full code. Resident remains comatose. Resident is non vent and is fed by g-tube (Glucerna 1.2 at 70 ml/hr x 20 hr Provides: 1400 ml/day, 1680 kcal, 84 gm protein). IDT was conducted on May, daughter could not attend it.
--- NOTE | 2018-05-21 19:13 | NUR ---
Seen by SPONGE MAKER Kennedi Bender. Relayed urine C & S result to her. Pt afebrile 98.0 F and does not have hematuria anymore. No new order.
[2018-05-21 20:14] VITALS: BP 126/67
[2018-05-21] MEDS: ENOXAPARIN SODIUM 40 MG/0.4 ML DISP.SYRIN SQ SCH (21:02)
[2018-05-21] MEDS: ATORVASTATIN 10 MG TABLET GT SCH (21:03)
[2018-05-21] MEDS: GLUCERNA 1.2 1,000 ML BOTTLE GT PRN (22:06)
[2018-05-21] MEDS: INSULIN GLARGINE, 100 UNIT/ML CARTRIDGE SQ SCH (22:14)
[2018-05-22] MEDS: PROSTAT (PYXIS) 30 ML UDC GT SCH ×3 (00:01→17:02)
[2018-05-22] MEDS: ONDANSETRON 4 MG TAB.RAPDIS GT PRN (00:30)
[2018-05-22] MEDS: ALBUTEROL FS 2.5 MG/0.5 ML VIAL.NEB NEB SCH ×4 (01:36→20:15)
[2018-05-22] MEDS: IPRATROPIUM NEB FS 0.5 MG/2.5 ML AMPUL.NEB NEB SCH ×4 (01:36→20:15)
[2018-05-22] MEDS: PANTOPRAZOLE 40 MG/PACK PACK GT SCH (05:29)
[2018-05-22] MEDS: DILTIAZEM HCL 30 MG TABLET GT SCH ×4 (05:30→23:34)
[2018-05-22] MEDS: BLOOD SUGAR DIAGNOSTIC 1 EACH STRIP IN SCH ×4 (05:38→23:35)
[2018-05-22] MEDS: INSULIN ASPART/LISPRO 100 UNIT/ML CARTRIDGE SQ PRN ×4 (05:39→23:37)
[2018-05-22 08:04] VITALS: BP 123/76
[2018-05-22] MEDS: LEVETIRACETAM SOL (5 ML) 100 MG/ML UDC GT SCH ×2 (09:58→21:15)
[2018-05-22] MEDS: FERROUS SULFATE - FOR SA ONLY 330 MG/7.5 ML UDC GT SCH (09:58)
[2018-05-22] MEDS: MULTIVIT W/MINERALS 1 TAB TABLET GT SCH (09:58)
[2018-05-22] MEDS: DOCUSATE SODIUM LIQ 100 MG/10 ML UDC GT SCH ×2 (09:58→17:02)
[2018-05-22] MEDS: ACIDOPHILUS/BULGARICUS 1 EACH TAB.CHEW GT SCH ×2 (09:58→17:02)
[2018-05-22] MEDS: ACETAMINOPHEN 650 MG/20 ML UDC- SA PATIENTS-PAIN ONLY GT SCH ×2 (09:59→21:16)
[2018-05-22] MEDS: VALSARTAN 80 MG TABLET GT SCH (09:59)
[2018-05-22] MEDS: ZINC SULFATE 220 MG CAPSULE GT SCH (09:59)
[2018-05-22] MEDS: ASCORBIC ACID 500 MG TABLET GT SCH (09:59)
--- NOTE | 2018-05-22 10:49 | NUR ---
Please disregard the notes on 05/21 a t 10:04 and 10:34 AM and 05/22 at 10:21.
[2018-05-22] MEDS: DAKINS QUARTER STRENGTH (0.125%) 480 ML BOTTLE TOP SCH ×2 (10:59→21:17)
[2018-05-22] MEDS: HYDROGEN PEROXIDE 480 ML BOTTLE TP SCH ×2 (10:59→21:17)
[2018-05-22] MEDS: Z GUARD REMEDY 4 OZ OINT TP SCH (10:59)
[2018-05-22] MEDS: Z GUARD REMEDY 2 OZ OINT TP SCH ×2 (10:59→21:17)
--- NOTE | 2018-05-22 18:09 | NUR ---
Relayed urine C & S result to MILLY Mcelroy. Urine culture shows Proteus mirabilis and E coli. Pt afebrile, T 98.1 F. No hematuria noted.
[2018-05-22 20:19] VITALS: BP 133/77
[2018-05-22] MEDS: ATORVASTATIN 10 MG TABLET GT SCH (21:17)
[2018-05-22] MEDS: ENOXAPARIN SODIUM 40 MG/0.4 ML DISP.SYRIN SQ SCH (21:17)
[2018-05-22] MEDS: INSULIN GLARGINE, 100 UNIT/ML CARTRIDGE SQ SCH (21:41)
[2018-05-23] MEDS: PROSTAT (PYXIS) 30 ML UDC GT SCH ×3 (01:00→17:31)
[2018-05-23] MEDS: IPRATROPIUM NEB FS 0.5 MG/2.5 ML AMPUL.NEB NEB SCH ×4 (01:02→19:45)
[2018-05-23] MEDS: ALBUTEROL FS 2.5 MG/0.5 ML VIAL.NEB NEB SCH ×4 (01:02→19:45)
[2018-05-23] MEDS: DILTIAZEM HCL 30 MG TABLET GT SCH ×3 (06:00→17:32)
[2018-05-23] MEDS: BLOOD SUGAR DIAGNOSTIC 1 EACH STRIP IN SCH ×4 (06:15→23:48)
[2018-05-23] MEDS: PANTOPRAZOLE 40 MG/PACK PACK GT SCH (06:15)
[2018-05-23] MEDS: INSULIN ASPART/LISPRO 100 UNIT/ML CARTRIDGE SQ PRN ×4 (06:15→23:50)
[2018-05-23] MEDS: GLUCERNA 1.2 1,000 ML BOTTLE GT PRN (06:16)
[2018-05-23 07:54] VITALS: BP 129/83
[2018-05-23] MEDS: ACIDOPHILUS/BULGARICUS 1 EACH TAB.CHEW GT SCH ×2 (08:58→17:31)
[2018-05-23] MEDS: ASCORBIC ACID 500 MG TABLET GT SCH (08:58)
[2018-05-23] MEDS: ACETAMINOPHEN 650 MG/20 ML UDC- SA PATIENTS-PAIN ONLY GT SCH ×2 (08:58→20:51)
[2018-05-23] MEDS: LEVETIRACETAM SOL (5 ML) 100 MG/ML UDC GT SCH ×2 (08:58→20:51)
[2018-05-23] MEDS: ZINC SULFATE 220 MG CAPSULE GT SCH (08:58)
[2018-05-23] MEDS: VALSARTAN 80 MG TABLET GT SCH (08:58)
[2018-05-23] MEDS: FERROUS SULFATE - FOR SA ONLY 330 MG/7.5 ML UDC GT SCH (08:58)
[2018-05-23] MEDS: MULTIVIT W/MINERALS 1 TAB TABLET GT SCH (08:58)
[2018-05-23] MEDS: DOCUSATE SODIUM LIQ 100 MG/10 ML UDC GT SCH ×2 (08:58→17:28)
[2018-05-23] MEDS: DAKINS QUARTER STRENGTH (0.125%) 480 ML BOTTLE TOP SCH ×2 (09:00→21:44)
[2018-05-23] MEDS: Z GUARD REMEDY 4 OZ OINT TP SCH (09:00)
[2018-05-23] MEDS: Z GUARD REMEDY 2 OZ OINT TP SCH ×2 (09:00→21:45)
[2018-05-23] MEDS: HYDROGEN PEROXIDE 480 ML BOTTLE TP SCH ×2 (09:00→21:44)
--- NOTE | 2018-05-23 10:00 | NUR ---
Received an order from Lilibeth Franklin NP to start patient on IV Rocephin daily x 5 days for UTI. Left a message to patient's daughter Kelly regarding new order.
[2018-05-23] MEDS: CEFTRIAXONE 1 G in IV D5W 50 ML IV SCH (13:00)
[2018-05-23 20:35] VITALS: BP 142/77
[2018-05-23] MEDS: ENOXAPARIN SODIUM 40 MG/0.4 ML DISP.SYRIN SQ SCH (20:52)
[2018-05-23] MEDS: ATORVASTATIN 10 MG TABLET GT SCH (21:45)
[2018-05-23] MEDS: INSULIN GLARGINE, 100 UNIT/ML CARTRIDGE SQ SCH (21:54)
[2018-05-24] MEDS: PROSTAT (PYXIS) 30 ML UDC GT SCH ×3 (00:41→16:32)
[2018-05-24] MEDS: DILTIAZEM HCL 30 MG TABLET GT SCH ×5 (00:41→23:49)
[2018-05-24] MEDS: IPRATROPIUM NEB FS 0.5 MG/2.5 ML AMPUL.NEB NEB SCH ×4 (00:44→19:52)
[2018-05-24] MEDS: ALBUTEROL FS 2.5 MG/0.5 ML VIAL.NEB NEB SCH ×4 (00:44→19:52)
--- NOTE | 2018-05-24 06:47 | NUR ---
Pt noted with pinkish urine output.On Rocephin 1gm IV for UTI.Will continue to monitor.
[2018-05-24] MEDS: INSULIN ASPART/LISPRO 100 UNIT/ML CARTRIDGE SQ PRN ×4 (06:49→23:59)
[2018-05-24] MEDS: PANTOPRAZOLE 40 MG/PACK PACK GT SCH (06:49)
[2018-05-24] MEDS: BLOOD SUGAR DIAGNOSTIC 1 EACH STRIP IN SCH ×4 (06:49→23:58)
[2018-05-24] MEDS: VALSARTAN 80 MG TABLET GT SCH (09:00)
[2018-05-24] MEDS: DOCUSATE SODIUM LIQ 100 MG/10 ML UDC GT SCH ×2 (09:37→16:32)
[2018-05-24] MEDS: FERROUS SULFATE - FOR SA ONLY 330 MG/7.5 ML UDC GT SCH (09:38)
[2018-05-24] MEDS: LEVETIRACETAM SOL (5 ML) 100 MG/ML UDC GT SCH ×2 (09:39→21:13)
[2018-05-24] MEDS: ASCORBIC ACID 500 MG TABLET GT SCH (09:40)
[2018-05-24] MEDS: ACIDOPHILUS/BULGARICUS 1 EACH TAB.CHEW GT SCH ×2 (09:40→16:32)
[2018-05-24] MEDS: ZINC SULFATE 220 MG CAPSULE GT SCH (09:41)
[2018-05-24] MEDS: Z GUARD REMEDY 2 OZ OINT TP SCH ×2 (09:42→21:14)
[2018-05-24] MEDS: MULTIVIT W/MINERALS 1 TAB TABLET GT SCH (09:46)
[2018-05-24] MEDS: ACETAMINOPHEN 650 MG/20 ML UDC- SA PATIENTS-PAIN ONLY GT SCH ×2 (09:46→21:13)
[2018-05-24] MEDS: DAKINS QUARTER STRENGTH (0.125%) 480 ML BOTTLE TOP SCH (09:47)
[2018-05-24] MEDS: HYDROGEN PEROXIDE 480 ML BOTTLE TP SCH ×2 (09:48→21:14)
[2018-05-24] MEDS: CEFTRIAXONE 1 G in IV D5W 50 ML IV SCH (13:22)
--- NOTE | 2018-05-24 15:00 | NUR ---
Seen and examined by Kennedi Bender NP NNO given at this time. Continue on IV ATB Rocephin 1 gm for UTI, no adverse reaction.
[2018-05-24] MEDS: GLUCERNA 1.2 1,000 ML BOTTLE GT PRN (16:17)
[2018-05-24 20:02] VITALS: BP 112/70
[2018-05-24] MEDS: ATORVASTATIN 10 MG TABLET GT SCH (21:14)
[2018-05-24] MEDS: ENOXAPARIN SODIUM 40 MG/0.4 ML DISP.SYRIN SQ SCH (21:14)
[2018-05-24] MEDS: INSULIN GLARGINE, 100 UNIT/ML CARTRIDGE SQ SCH (21:15)
[2018-05-24] MEDS: hydrALAZINE HCL 10 MG TABLET GT PRN (23:58)
[2018-05-25] MEDS: IPRATROPIUM NEB FS 0.5 MG/2.5 ML AMPUL.NEB NEB SCH ×4 (01:44→19:50)
[2018-05-25] MEDS: ALBUTEROL FS 2.5 MG/0.5 ML VIAL.NEB NEB SCH ×4 (01:44→19:50)
[2018-05-25] MEDS: DILTIAZEM HCL 30 MG TABLET GT SCH ×4 (05:17→23:28)
[2018-05-25] MEDS: PANTOPRAZOLE 40 MG/PACK PACK GT SCH (05:18)
[2018-05-25] MEDS: BLOOD SUGAR DIAGNOSTIC 1 EACH STRIP IN SCH ×4 (05:18→23:29)
[2018-05-25] MEDS: INSULIN ASPART/LISPRO 100 UNIT/ML CARTRIDGE SQ PRN ×4 (05:18→23:31)
[2018-05-25 07:57] VITALS: BP 128/83
[2018-05-25] MEDS ORDERED: PROSTAT (PYXIS) 30 ML UDC GT SCH (09:00)
[2018-05-25] MEDS: DOCUSATE SODIUM LIQ 100 MG/10 ML UDC GT SCH ×2 (09:57→17:27)
[2018-05-25] MEDS: ZINC SULFATE 220 MG CAPSULE GT SCH (09:58)
[2018-05-25] MEDS: MULTIVIT W/MINERALS 1 TAB TABLET GT SCH (09:58)
[2018-05-25] MEDS: FERROUS SULFATE - FOR SA ONLY 330 MG/7.5 ML UDC GT SCH (09:58)
[2018-05-25] MEDS: ASCORBIC ACID 500 MG TABLET GT SCH (09:58)
[2018-05-25] MEDS: LEVETIRACETAM SOL (5 ML) 100 MG/ML UDC GT SCH ×2 (09:58→21:41)
[2018-05-25] MEDS: ACIDOPHILUS/BULGARICUS 1 EACH TAB.CHEW GT SCH ×2 (09:58→17:27)
[2018-05-25] MEDS: VALSARTAN 80 MG TABLET GT SCH (09:58)
[2018-05-25] MEDS: ACETAMINOPHEN 650 MG/20 ML UDC- SA PATIENTS-PAIN ONLY GT SCH ×2 (09:58→21:43)
[2018-05-25] MEDS: HYDROGEN PEROXIDE 480 ML BOTTLE TP SCH ×2 (10:30→21:45)
[2018-05-25] MEDS: Z GUARD REMEDY 2 OZ OINT TP SCH ×2 (10:30→21:46)
[2018-05-25] MEDS: CEFTRIAXONE 1 G in IV D5W 50 ML IV SCH (13:17)
[2018-05-25] MEDS: GLUCERNA 1.2 1,000 ML BOTTLE GT PRN (17:41)
[2018-05-25 20:09] VITALS: BP 136/85
[2018-05-25] MEDS: ENOXAPARIN SODIUM 40 MG/0.4 ML DISP.SYRIN SQ SCH (21:44)
[2018-05-25] MEDS: ATORVASTATIN 10 MG TABLET GT SCH (21:46)
[2018-05-25] MEDS: INSULIN GLARGINE, 100 UNIT/ML CARTRIDGE SQ SCH (21:52)
[2018-05-26] MEDS: IPRATROPIUM NEB FS 0.5 MG/2.5 ML AMPUL.NEB NEB SCH ×4 (01:33→20:04)
[2018-05-26] MEDS: ALBUTEROL FS 2.5 MG/0.5 ML VIAL.NEB NEB SCH ×4 (01:33→20:04)
[2018-05-26] MEDS: DILTIAZEM HCL 30 MG TABLET GT SCH ×4 (05:39→23:32)
[2018-05-26] MEDS: PANTOPRAZOLE 40 MG/PACK PACK GT SCH (05:40)
[2018-05-26] MEDS: INSULIN ASPART/LISPRO 100 UNIT/ML CARTRIDGE SQ PRN ×4 (05:41→23:33)
[2018-05-26] MEDS: BLOOD SUGAR DIAGNOSTIC 1 EACH STRIP IN SCH ×4 (05:42→23:32)
[2018-05-26 08:01] VITALS: BP 127/86
[2018-05-26] MEDS: DOCUSATE SODIUM LIQ 100 MG/10 ML UDC GT SCH ×2 (09:01→17:56)
[2018-05-26] MEDS: FERROUS SULFATE - FOR SA ONLY 330 MG/7.5 ML UDC GT SCH (09:03)
[2018-05-26] MEDS: VALSARTAN 80 MG TABLET GT SCH (09:03)
[2018-05-26] MEDS: LEVETIRACETAM SOL (5 ML) 100 MG/ML UDC GT SCH ×2 (09:04→21:00)
[2018-05-26] MEDS: ACIDOPHILUS/BULGARICUS 1 EACH TAB.CHEW GT SCH ×2 (09:05→17:56)
[2018-05-26] MEDS: ASCORBIC ACID 500 MG TABLET GT SCH (09:05)
[2018-05-26] MEDS: ZINC SULFATE 220 MG CAPSULE GT SCH (09:06)
[2018-05-26] MEDS: Z GUARD REMEDY 2 OZ OINT TP SCH ×2 (09:06→21:33)
[2018-05-26] MEDS: HYDROGEN PEROXIDE 480 ML BOTTLE TP SCH ×2 (09:06→21:33)
[2018-05-26] MEDS: ACETAMINOPHEN 650 MG/20 ML UDC- SA PATIENTS-PAIN ONLY GT SCH ×2 (09:08→21:01)
[2018-05-26] MEDS: MULTIVIT W/MINERALS 1 TAB TABLET GT SCH (09:09)
[2018-05-26] MEDS: CEFTRIAXONE 1 G in IV D5W 50 ML IV SCH (12:20)
[2018-05-26] MEDS: GLUCERNA 1.2 1,000 ML BOTTLE GT PRN (16:43)
[2018-05-26 20:34] VITALS: BP 133/63
[2018-05-26] MEDS: ENOXAPARIN SODIUM 40 MG/0.4 ML DISP.SYRIN SQ SCH (21:02)
[2018-05-26] MEDS: ATORVASTATIN 10 MG TABLET GT SCH (21:02)
[2018-05-26] MEDS: INSULIN GLARGINE, 100 UNIT/ML CARTRIDGE SQ SCH (21:41)
--- NOTE | 2018-05-27 00:43 | NUR ---
RT NOTE PATIENT WAS RECEIVED ON COOL AEROSOL. AMBU BAG/BACK UP TRACH @ BEDSIDE. Q6 BREATHING TX GIVEN PER MD ORDERS WITH NO ADVERSE REACTION NOTED. SUCTION DONE PRN. TRACH PATENT AND SECURED. NO RESPIRATORY DISTRESS NOTED AT THIS TIME. WILL CONTINUE TO MONITOR PATIENT Addendum: 05/27/18 at 0043 by SHYANN BARRETT RT Amended: Links added.
[2018-05-27] MEDS: ALBUTEROL FS 2.5 MG/0.5 ML VIAL.NEB NEB SCH ×4 (01:28→18:53)
[2018-05-27] MEDS: IPRATROPIUM NEB FS 0.5 MG/2.5 ML AMPUL.NEB NEB SCH ×4 (01:28→18:53)
[2018-05-27] MEDS: BLOOD SUGAR DIAGNOSTIC 1 EACH STRIP IN SCH ×4 (05:46→23:14)
[2018-05-27] MEDS: PANTOPRAZOLE 40 MG/PACK PACK GT SCH (05:46)
[2018-05-27] MEDS: DILTIAZEM HCL 30 MG TABLET GT SCH ×4 (05:46→23:14)
[2018-05-27] MEDS: INSULIN ASPART/LISPRO 100 UNIT/ML CARTRIDGE SQ PRN ×4 (05:47→23:15)
[2018-05-27] MEDS: GLUCERNA 1.2 1,000 ML BOTTLE GT PRN ×2 (05:57→19:15)
[2018-05-27 08:06] VITALS: BP 122/66
[2018-05-27] MEDS: DOCUSATE SODIUM LIQ 100 MG/10 ML UDC GT SCH ×2 (09:53→17:12)
[2018-05-27] MEDS: VALSARTAN 80 MG TABLET GT SCH (09:53)
[2018-05-27] MEDS: LEVETIRACETAM SOL (5 ML) 100 MG/ML UDC GT SCH ×2 (09:53→21:06)
[2018-05-27] MEDS: FERROUS SULFATE - FOR SA ONLY 330 MG/7.5 ML UDC GT SCH (09:53)
[2018-05-27] MEDS: ACIDOPHILUS/BULGARICUS 1 EACH TAB.CHEW GT SCH ×2 (09:53→17:12)
[2018-05-27] MEDS: MULTIVIT W/MINERALS 1 TAB TABLET GT SCH (09:53)
[2018-05-27] MEDS: ACETAMINOPHEN 650 MG/20 ML UDC- SA PATIENTS-PAIN ONLY GT SCH ×2 (09:54→21:06)
[2018-05-27] MEDS: ZINC SULFATE 220 MG CAPSULE GT SCH (09:54)
[2018-05-27] MEDS: ASCORBIC ACID 500 MG TABLET GT SCH (09:54)
[2018-05-27] MEDS: Z GUARD REMEDY 2 OZ OINT TP SCH ×2 (10:30→21:07)
[2018-05-27] MEDS: HYDROGEN PEROXIDE 480 ML BOTTLE TP SCH ×2 (10:30→21:07)
[2018-05-27] MEDS: CEFTRIAXONE 1 G in IV D5W 50 ML IV SCH (13:00)
[2018-05-27 20:31] VITALS: BP 140/69
[2018-05-27] MEDS: DAKINS QUARTER STRENGTH (0.125%) 480 ML BOTTLE TOP SCH (21:07)
[2018-05-27] MEDS: ATORVASTATIN 10 MG TABLET GT SCH (21:07)
[2018-05-27] MEDS: ENOXAPARIN SODIUM 40 MG/0.4 ML DISP.SYRIN SQ SCH (21:07)
[2018-05-27] MEDS: INSULIN GLARGINE, 100 UNIT/ML CARTRIDGE SQ SCH (21:08)
[2018-05-28] MEDS: IPRATROPIUM NEB FS 0.5 MG/2.5 ML AMPUL.NEB NEB SCH ×4 (00:55→19:55)
[2018-05-28] MEDS: ALBUTEROL FS 2.5 MG/0.5 ML VIAL.NEB NEB SCH ×4 (00:56→19:55)
[2018-05-28] MEDS: DILTIAZEM HCL 30 MG TABLET GT SCH ×4 (06:14→23:38)
[2018-05-28] MEDS: PANTOPRAZOLE 40 MG/PACK PACK GT SCH (06:14)
[2018-05-28] MEDS: BLOOD SUGAR DIAGNOSTIC 1 EACH STRIP IN SCH ×4 (06:14→23:38)
[2018-05-28] MEDS: INSULIN ASPART/LISPRO 100 UNIT/ML CARTRIDGE SQ PRN ×4 (06:15→23:39)
[2018-05-28 08:09] VITALS: BP 142/80
[2018-05-28] MEDS: ACIDOPHILUS/BULGARICUS 1 EACH TAB.CHEW GT SCH ×2 (09:40→17:13)
[2018-05-28] MEDS: MULTIVIT W/MINERALS 1 TAB TABLET GT SCH (09:40)
[2018-05-28] MEDS: VALSARTAN 80 MG TABLET GT SCH (09:40)
[2018-05-28] MEDS: DOCUSATE SODIUM LIQ 100 MG/10 ML UDC GT SCH ×2 (09:40→17:13)
[2018-05-28] MEDS: LEVETIRACETAM SOL (5 ML) 100 MG/ML UDC GT SCH ×2 (09:40→21:12)
[2018-05-28] MEDS: FERROUS SULFATE - FOR SA ONLY 330 MG/7.5 ML UDC GT SCH (09:40)
[2018-05-28] MEDS: ZINC SULFATE 220 MG CAPSULE GT SCH (09:41)
[2018-05-28] MEDS: ASCORBIC ACID 500 MG TABLET GT SCH (09:41)
[2018-05-28] MEDS: ACETAMINOPHEN 650 MG/20 ML UDC- SA PATIENTS-PAIN ONLY GT SCH ×2 (09:41→21:13)
[2018-05-28] MEDS: Z GUARD REMEDY 2 OZ OINT TP SCH ×2 (10:15→21:14)
[2018-05-28] MEDS: DAKINS QUARTER STRENGTH (0.125%) 480 ML BOTTLE TOP SCH ×2 (10:15→21:13)
[2018-05-28] MEDS: HYDROGEN PEROXIDE 480 ML BOTTLE TP SCH ×2 (10:15→21:13)
[2018-05-28] MEDS: GLUCERNA 1.2 1,000 ML BOTTLE GT PRN (14:06)
--- NOTE | 2018-05-28 14:34 | NUR ---
Pt. was seeing by the podiatry Dr. Hawkins on 05/25 and an appointment was made for 06/15.
[2018-05-28 20:19] VITALS: BP 130/68
[2018-05-28] MEDS: ENOXAPARIN SODIUM 40 MG/0.4 ML DISP.SYRIN SQ SCH (21:13)
[2018-05-28] MEDS: INSULIN GLARGINE, 100 UNIT/ML CARTRIDGE SQ SCH (21:14)
[2018-05-28] MEDS: ATORVASTATIN 10 MG TABLET GT SCH (21:14)
[2018-05-29] MEDS: ALBUTEROL FS 2.5 MG/0.5 ML VIAL.NEB NEB SCH ×4 (01:40→19:10)
[2018-05-29] MEDS: IPRATROPIUM NEB FS 0.5 MG/2.5 ML AMPUL.NEB NEB SCH ×4 (01:40→19:10)
[2018-05-29] MEDS: BLOOD SUGAR DIAGNOSTIC 1 EACH STRIP IN SCH ×4 (05:57→23:10)
[2018-05-29] MEDS: DILTIAZEM HCL 30 MG TABLET GT SCH ×4 (05:57→23:10)
[2018-05-29] MEDS: PANTOPRAZOLE 40 MG/PACK PACK GT SCH (05:57)
[2018-05-29 07:48] VITALS: BP 105/66
[2018-05-29] MEDS: VALSARTAN 80 MG TABLET GT SCH (09:00)
[2018-05-29] MEDS: DOCUSATE SODIUM LIQ 100 MG/10 ML UDC GT SCH ×2 (09:27→17:12)
[2018-05-29] MEDS: ACETAMINOPHEN 650 MG/20 ML UDC- SA PATIENTS-PAIN ONLY GT SCH ×2 (09:28→21:17)
[2018-05-29] MEDS: ACIDOPHILUS/BULGARICUS 1 EACH TAB.CHEW GT SCH ×2 (09:28→17:12)
[2018-05-29] MEDS: MULTIVIT W/MINERALS 1 TAB TABLET GT SCH (09:28)
[2018-05-29] MEDS: LEVETIRACETAM SOL (5 ML) 100 MG/ML UDC GT SCH ×2 (09:28→21:17)
[2018-05-29] MEDS: FERROUS SULFATE - FOR SA ONLY 330 MG/7.5 ML UDC GT SCH (09:28)
[2018-05-29] MEDS: Z GUARD REMEDY 2 OZ OINT TP SCH ×2 (09:29→21:18)
[2018-05-29] MEDS: DAKINS QUARTER STRENGTH (0.125%) 480 ML BOTTLE TOP SCH ×2 (09:29→21:18)
[2018-05-29] MEDS: ZINC SULFATE 220 MG CAPSULE GT SCH (09:29)
[2018-05-29] MEDS: HYDROGEN PEROXIDE 480 ML BOTTLE TP SCH ×2 (09:29→21:18)
[2018-05-29] MEDS: ASCORBIC ACID 500 MG TABLET GT SCH (09:29)
[2018-05-29] MEDS: INSULIN ASPART/LISPRO 100 UNIT/ML CARTRIDGE SQ PRN ×2 (12:26→23:11)
[2018-05-29] MEDS: GLUCERNA 1.2 1,000 ML BOTTLE GT PRN (15:30)
[2018-05-29 20:00] VITALS: BP 147/73
[2018-05-29] MEDS: ATORVASTATIN 10 MG TABLET GT SCH (21:18)
[2018-05-29] MEDS: ENOXAPARIN SODIUM 40 MG/0.4 ML DISP.SYRIN SQ SCH (21:18)
[2018-05-29] MEDS: INSULIN GLARGINE, 100 UNIT/ML CARTRIDGE SQ SCH (21:19)
[2018-05-30] MEDS: IPRATROPIUM NEB FS 0.5 MG/2.5 ML AMPUL.NEB NEB SCH ×4 (01:51→19:59)
[2018-05-30] MEDS: ALBUTEROL FS 2.5 MG/0.5 ML VIAL.NEB NEB SCH ×4 (01:51→19:59)
[2018-05-30] MEDS: PANTOPRAZOLE 40 MG/PACK PACK GT SCH (06:16)
[2018-05-30] MEDS: DILTIAZEM HCL 30 MG TABLET GT SCH ×3 (06:16→17:23)
[2018-05-30] MEDS: BLOOD SUGAR DIAGNOSTIC 1 EACH STRIP IN SCH ×3 (06:16→17:23)
[2018-05-30 08:00] VITALS: BP 119/74
[2018-05-30] MEDS: Z GUARD REMEDY 2 OZ OINT TP SCH ×2 (09:00→22:00)
[2018-05-30] MEDS: HYDROGEN PEROXIDE 480 ML BOTTLE TP SCH ×2 (09:00→22:00)
[2018-05-30] MEDS: FERROUS SULFATE - FOR SA ONLY 330 MG/7.5 ML UDC GT SCH (09:55)
[2018-05-30] MEDS: MULTIVIT W/MINERALS 1 TAB TABLET GT SCH (09:55)
[2018-05-30] MEDS: VALSARTAN 80 MG TABLET GT SCH (09:55)
[2018-05-30] MEDS: LEVETIRACETAM SOL (5 ML) 100 MG/ML UDC GT SCH ×2 (09:55→21:25)
[2018-05-30] MEDS: ACIDOPHILUS/BULGARICUS 1 EACH TAB.CHEW GT SCH ×2 (09:55→17:23)
[2018-05-30] MEDS: DOCUSATE SODIUM LIQ 100 MG/10 ML UDC GT SCH ×2 (09:55→17:23)
[2018-05-30] MEDS: ASCORBIC ACID 500 MG TABLET GT SCH (09:56)
[2018-05-30] MEDS: ZINC SULFATE 220 MG CAPSULE GT SCH (09:56)
[2018-05-30] MEDS: ACETAMINOPHEN 650 MG/20 ML UDC- SA PATIENTS-PAIN ONLY GT SCH ×2 (09:56→21:25)
[2018-05-30] MEDS: DAKINS QUARTER STRENGTH (0.125%) 480 ML BOTTLE TOP SCH ×2 (10:30→22:00)
[2018-05-30] MEDS: INSULIN ASPART/LISPRO 100 UNIT/ML CARTRIDGE SQ PRN ×2 (12:51→17:24)
[2018-05-30] MEDS: GLUCERNA 1.2 1,000 ML BOTTLE GT PRN (12:52)
--- NOTE | 2018-05-30 14:00 | NUR ---
Seen and examined by Kennedi Bender NP NNO given.
--- NOTE | 2018-05-30 20:20 | NUR ---
Daughter Kelly notified [facility]It's ok with but make it sure to move all her belongings with her to the new room.
[2018-05-30 20:32] VITALS: BP 126/86
[2018-05-30] MEDS: ENOXAPARIN SODIUM 40 MG/0.4 ML DISP.SYRIN SQ SCH (21:26)
[2018-05-30] MEDS: ATORVASTATIN 10 MG TABLET GT SCH (21:26)
[2018-05-30] MEDS: INSULIN GLARGINE, 100 UNIT/ML CARTRIDGE SQ SCH (21:27)
[2018-05-31] MEDS: BLOOD SUGAR DIAGNOSTIC 1 EACH STRIP IN SCH ×5 (00:16→23:54)
[2018-05-31] MEDS: INSULIN ASPART/LISPRO 100 UNIT/ML CARTRIDGE SQ PRN ×4 (00:17→23:55)
[2018-05-31] MEDS: IPRATROPIUM NEB FS 0.5 MG/2.5 ML AMPUL.NEB NEB SCH ×4 (01:52→19:16)
[2018-05-31] MEDS: ALBUTEROL FS 2.5 MG/0.5 ML VIAL.NEB NEB SCH ×4 (01:52→19:16)
[2018-05-31] MEDS: DILTIAZEM HCL 30 MG TABLET GT SCH ×5 (05:26→23:54)
[2018-05-31] MEDS: PANTOPRAZOLE 40 MG/PACK PACK GT SCH (05:26)
[2018-05-31 07:47] VITALS: BP 104/69
[2018-05-31] MEDS: VALSARTAN 80 MG TABLET GT SCH (09:00)
[2018-05-31] MEDS: DOCUSATE SODIUM LIQ 100 MG/10 ML UDC GT SCH ×2 (09:52→17:51)
[2018-05-31] MEDS: ZINC SULFATE 220 MG CAPSULE GT SCH (09:53)
[2018-05-31] MEDS: ACETAMINOPHEN 650 MG/20 ML UDC- SA PATIENTS-PAIN ONLY GT SCH ×2 (09:53→21:47)
[2018-05-31] MEDS: LEVETIRACETAM SOL (5 ML) 100 MG/ML UDC GT SCH ×2 (09:53→21:45)
[2018-05-31] MEDS: MULTIVIT W/MINERALS 1 TAB TABLET GT SCH (09:53)
[2018-05-31] MEDS: ACIDOPHILUS/BULGARICUS 1 EACH TAB.CHEW GT SCH ×2 (09:53→17:52)
[2018-05-31] MEDS: FERROUS SULFATE - FOR SA ONLY 330 MG/7.5 ML UDC GT SCH (09:53)
[2018-05-31] MEDS: ASCORBIC ACID 500 MG TABLET GT SCH (09:53)
[2018-05-31] MEDS: DAKINS QUARTER STRENGTH (0.125%) 480 ML BOTTLE TOP SCH ×2 (09:54→21:47)
[2018-05-31] MEDS: HYDROGEN PEROXIDE 480 ML BOTTLE TP SCH ×2 (09:54→21:47)
[2018-05-31] MEDS: Z GUARD REMEDY 2 OZ OINT TP SCH ×2 (09:54→21:48)
[2018-05-31] MEDS: MAGNESIUM HYDROXIDE 30 ML UDC GT PRN (09:59)
[2018-05-31] MEDS: GLUCERNA 1.2 1,000 ML BOTTLE GT PRN (12:52)
[2018-05-31 20:22] VITALS: BP 115/55
[2018-05-31] MEDS: ENOXAPARIN SODIUM 40 MG/0.4 ML DISP.SYRIN SQ SCH (21:47)
[2018-05-31] MEDS: ATORVASTATIN 10 MG TABLET GT SCH (21:48)
[2018-05-31] MEDS: INSULIN GLARGINE, 100 UNIT/ML CARTRIDGE SQ SCH (21:48)
[2018-06-01] MEDS: ALBUTEROL FS 2.5 MG/0.5 ML VIAL.NEB NEB SCH ×4 (02:06→20:03)
[2018-06-01] MEDS: IPRATROPIUM NEB FS 0.5 MG/2.5 ML AMPUL.NEB NEB SCH ×4 (02:06→20:03)
[2018-06-01] MEDS: BLOOD SUGAR DIAGNOSTIC 1 EACH STRIP IN SCH ×3 (05:27→17:41)
[2018-06-01] MEDS: DILTIAZEM HCL 30 MG TABLET GT SCH ×3 (05:27→17:41)
[2018-06-01] MEDS: INSULIN ASPART/LISPRO 100 UNIT/ML CARTRIDGE SQ PRN ×3 (05:27→17:42)
[2018-06-01] MEDS: PANTOPRAZOLE 40 MG/PACK PACK GT SCH (05:27)
[2018-06-01] MEDS: GLUCERNA 1.2 1,000 ML BOTTLE GT PRN ×2 (05:28→18:34)
[2018-06-01] MEDS: hydrALAZINE HCL 10 MG TABLET GT PRN (05:30)
[2018-06-01 07:58] VITALS: BP 116/76
[2018-06-01] MEDS: DAKINS QUARTER STRENGTH (0.125%) 480 ML BOTTLE TOP SCH ×2 (09:00→21:42)
[2018-06-01] MEDS: VALSARTAN 80 MG TABLET GT SCH (09:00)
[2018-06-01] MEDS: ASCORBIC ACID 500 MG TABLET GT SCH (09:00)
[2018-06-01] MEDS: FERROUS SULFATE - FOR SA ONLY 330 MG/7.5 ML UDC GT SCH (09:00)
[2018-06-01] MEDS: ZINC SULFATE 220 MG CAPSULE GT SCH (09:00)
[2018-06-01] MEDS: ACIDOPHILUS/BULGARICUS 1 EACH TAB.CHEW GT SCH ×2 (09:00→17:40)
[2018-06-01] MEDS: HYDROGEN PEROXIDE 480 ML BOTTLE TP SCH ×2 (09:00→21:42)
[2018-06-01] MEDS: DOCUSATE SODIUM LIQ 100 MG/10 ML UDC GT SCH ×2 (09:00→17:40)
[2018-06-01] MEDS: Z GUARD REMEDY 2 OZ OINT TP SCH ×2 (09:00→21:42)
[2018-06-01] MEDS: MULTIVIT W/MINERALS 1 TAB TABLET GT SCH (09:00)
[2018-06-01] MEDS: ACETAMINOPHEN 650 MG/20 ML UDC- SA PATIENTS-PAIN ONLY GT SCH ×2 (09:00→21:13)
[2018-06-01] MEDS: LEVETIRACETAM SOL (5 ML) 100 MG/ML UDC GT SCH ×2 (09:00→21:13)
[2018-06-01 20:06] VITALS: BP 129/51
[2018-06-01] MEDS: ENOXAPARIN SODIUM 40 MG/0.4 ML DISP.SYRIN SQ SCH (21:14)
[2018-06-01] MEDS: ATORVASTATIN 10 MG TABLET GT SCH (21:14)
[2018-06-01] MEDS: INSULIN GLARGINE, 100 UNIT/ML CARTRIDGE SQ SCH (21:48)
[2018-06-02] MEDS: BLOOD SUGAR DIAGNOSTIC 1 EACH STRIP IN SCH ×5 (00:08→23:32)
[2018-06-02] MEDS: DILTIAZEM HCL 30 MG TABLET GT SCH ×5 (00:08→23:32)
[2018-06-02] MEDS: INSULIN ASPART/LISPRO 100 UNIT/ML CARTRIDGE SQ PRN ×4 (00:08→23:34)
[2018-06-02] MEDS: IPRATROPIUM NEB FS 0.5 MG/2.5 ML AMPUL.NEB NEB SCH ×4 (01:38→19:20)
[2018-06-02] MEDS: ALBUTEROL FS 2.5 MG/0.5 ML VIAL.NEB NEB SCH ×4 (01:38→19:20)
[2018-06-02] MEDS: PANTOPRAZOLE 40 MG/PACK PACK GT SCH (05:33)
[2018-06-02 08:00] VITALS: BP 118/69
[2018-06-02] MEDS: ACETAMINOPHEN 650 MG/20 ML UDC- SA PATIENTS-PAIN ONLY GT SCH ×2 (09:00→21:41)
[2018-06-02] MEDS: ASCORBIC ACID 500 MG TABLET GT SCH (09:55)
[2018-06-02] MEDS: VALSARTAN 80 MG TABLET GT SCH (09:55)
[2018-06-02] MEDS: DOCUSATE SODIUM LIQ 100 MG/10 ML UDC GT SCH ×2 (09:55→17:19)
[2018-06-02] MEDS: LEVETIRACETAM SOL (5 ML) 100 MG/ML UDC GT SCH ×2 (09:55→21:37)
[2018-06-02] MEDS: ACIDOPHILUS/BULGARICUS 1 EACH TAB.CHEW GT SCH ×2 (09:55→17:19)
[2018-06-02] MEDS: ZINC SULFATE 220 MG CAPSULE GT SCH (09:55)
[2018-06-02] MEDS: MULTIVIT W/MINERALS 1 TAB TABLET GT SCH (09:55)
[2018-06-02] MEDS: FERROUS SULFATE - FOR SA ONLY 330 MG/7.5 ML UDC GT SCH (09:55)
[2018-06-02] MEDS: HYDROGEN PEROXIDE 480 ML BOTTLE TP SCH ×2 (10:23→21:38)
[2018-06-02] MEDS: DAKINS QUARTER STRENGTH (0.125%) 480 ML BOTTLE TOP SCH ×2 (10:23→21:38)
[2018-06-02] MEDS: Z GUARD REMEDY 2 OZ OINT TP SCH ×2 (10:24→21:38)
[2018-06-02] MEDS: GLUCERNA 1.2 1,000 ML BOTTLE GT PRN (17:43)
[2018-06-02 20:42] VITALS: BP 133/70
[2018-06-02] MEDS: ENOXAPARIN SODIUM 40 MG/0.4 ML DISP.SYRIN SQ SCH (21:38)
[2018-06-02] MEDS: ATORVASTATIN 10 MG TABLET GT SCH (21:39)
[2018-06-02] MEDS: INSULIN GLARGINE, 100 UNIT/ML CARTRIDGE SQ SCH (21:59)
[2018-06-03] MEDS: ALBUTEROL FS 2.5 MG/0.5 ML VIAL.NEB NEB SCH ×4 (01:57→19:08)
[2018-06-03] MEDS: IPRATROPIUM NEB FS 0.5 MG/2.5 ML AMPUL.NEB NEB SCH ×4 (01:57→19:08)
[2018-06-03] MEDS: GLUCERNA 1.2 1,000 ML BOTTLE GT PRN ×2 (04:30→21:10)
[2018-06-03] MEDS: DILTIAZEM HCL 30 MG TABLET GT SCH ×3 (05:46→17:15)
[2018-06-03] MEDS: PANTOPRAZOLE 40 MG/PACK PACK GT SCH (05:47)
[2018-06-03] MEDS: BLOOD SUGAR DIAGNOSTIC 1 EACH STRIP IN SCH ×3 (05:47→17:15)
[2018-06-03] MEDS: INSULIN ASPART/LISPRO 100 UNIT/ML CARTRIDGE SQ PRN ×2 (05:48→17:20)
[2018-06-03 07:26] VITALS: BP 119/73
[2018-06-03] MEDS: ZINC SULFATE 220 MG CAPSULE GT SCH (09:00)
[2018-06-03] MEDS: MULTIVIT W/MINERALS 1 TAB TABLET GT SCH (09:00)
[2018-06-03] MEDS: ASCORBIC ACID 500 MG TABLET GT SCH (09:00)
[2018-06-03] MEDS: LEVETIRACETAM SOL (5 ML) 100 MG/ML UDC GT SCH ×2 (09:00→21:00)
[2018-06-03] MEDS: ACETAMINOPHEN 650 MG/20 ML UDC- SA PATIENTS-PAIN ONLY GT SCH ×2 (09:00→21:00)
[2018-06-03] MEDS: VALSARTAN 80 MG TABLET GT SCH (09:00)
[2018-06-03] MEDS: FERROUS SULFATE - FOR SA ONLY 330 MG/7.5 ML UDC GT SCH (09:00)
[2018-06-03] MEDS: HYDROGEN PEROXIDE 480 ML BOTTLE TP SCH ×2 (09:00→21:01)
[2018-06-03] MEDS: DAKINS QUARTER STRENGTH (0.125%) 480 ML BOTTLE TOP SCH ×2 (09:00→21:01)
[2018-06-03] MEDS: Z GUARD REMEDY 2 OZ OINT TP SCH ×2 (09:00→21:01)
[2018-06-03] MEDS: ACIDOPHILUS/BULGARICUS 1 EACH TAB.CHEW GT SCH ×2 (09:00→17:14)
[2018-06-03] MEDS: DOCUSATE SODIUM LIQ 100 MG/10 ML UDC GT SCH ×2 (09:00→17:14)
--- NOTE | 2018-06-03 20:15 | NUR ---
PATIENT RECEIVED ON 28% AEROSOL T-TUBE, TOLERATING WITH NO DISTRESS NOTED. SUCTIONED FOR MINIMAL, THIN, YELLOW SECRETIONS. GIVEN IN-LINE TREATMENTS WITH NO ADVERSE REACTIONS. AMBU BAG AT BEDSIDE. Addendum: 06/03/18 at 2016 by KAISER LAW RT Amended: Links added.
[2018-06-03 20:17] VITALS: BP 104/59
[2018-06-03] MEDS: ENOXAPARIN SODIUM 40 MG/0.4 ML DISP.SYRIN SQ SCH (21:01)
[2018-06-03] MEDS: ATORVASTATIN 10 MG TABLET GT SCH (21:02)
[2018-06-03] MEDS: INSULIN GLARGINE, 100 UNIT/ML CARTRIDGE SQ SCH (21:15)
[2018-06-04] MEDS: BLOOD SUGAR DIAGNOSTIC 1 EACH STRIP IN SCH ×4 (00:33→18:18)
[2018-06-04] MEDS: INSULIN ASPART/LISPRO 100 UNIT/ML CARTRIDGE SQ PRN ×2 (00:36→18:22)
[2018-06-04] MEDS: DILTIAZEM HCL 30 MG TABLET GT SCH ×4 (00:42→18:17)
[2018-06-04] MEDS: IPRATROPIUM NEB FS 0.5 MG/2.5 ML AMPUL.NEB NEB SCH ×4 (01:36→19:39)
[2018-06-04] MEDS: ALBUTEROL FS 2.5 MG/0.5 ML VIAL.NEB NEB SCH ×4 (01:36→19:39)
[2018-06-04] MEDS: PANTOPRAZOLE 40 MG/PACK PACK GT SCH (05:21)
[2018-06-04 08:01] VITALS: BP 132/73
[2018-06-04] MEDS: MULTIVIT W/MINERALS 1 TAB TABLET GT SCH (09:00)
[2018-06-04] MEDS: ZINC SULFATE 220 MG CAPSULE GT SCH (09:00)
[2018-06-04] MEDS: ACETAMINOPHEN 650 MG/20 ML UDC- SA PATIENTS-PAIN ONLY GT SCH ×2 (09:00→21:01)
[2018-06-04] MEDS: ASCORBIC ACID 500 MG TABLET GT SCH (09:00)
[2018-06-04] MEDS: Z GUARD REMEDY 2 OZ OINT TP SCH ×2 (09:00→21:03)
[2018-06-04] MEDS: FERROUS SULFATE - FOR SA ONLY 330 MG/7.5 ML UDC GT SCH (09:00)
[2018-06-04] MEDS: VALSARTAN 80 MG TABLET GT SCH (09:00)
[2018-06-04] MEDS: DAKINS QUARTER STRENGTH (0.125%) 480 ML BOTTLE TOP SCH ×2 (09:00→21:02)
[2018-06-04] MEDS: LEVETIRACETAM SOL (5 ML) 100 MG/ML UDC GT SCH ×2 (09:00→21:00)
[2018-06-04] MEDS: HYDROGEN PEROXIDE 480 ML BOTTLE TP SCH ×2 (09:00→21:02)
[2018-06-04] MEDS: ACIDOPHILUS/BULGARICUS 1 EACH TAB.CHEW GT SCH ×2 (09:00→17:00)
[2018-06-04] MEDS: DOCUSATE SODIUM LIQ 100 MG/10 ML UDC GT SCH ×2 (09:00→17:00)
[2018-06-04] MEDS: GLUCERNA 1.2 1,000 ML BOTTLE GT PRN (18:10)
[2018-06-04 19:55] VITALS: BP 129/79
[2018-06-04] MEDS: ENOXAPARIN SODIUM 40 MG/0.4 ML DISP.SYRIN SQ SCH (21:02)
[2018-06-04] MEDS: ATORVASTATIN 10 MG TABLET GT SCH (21:03)
[2018-06-04] MEDS: INSULIN GLARGINE, 100 UNIT/ML CARTRIDGE SQ SCH (21:12)
[2018-06-05] MEDS: DILTIAZEM HCL 30 MG TABLET GT SCH ×4 (00:43→17:12)
[2018-06-05] MEDS: BLOOD SUGAR DIAGNOSTIC 1 EACH STRIP IN SCH ×4 (00:44→17:12)
[2018-06-05] MEDS: INSULIN ASPART/LISPRO 100 UNIT/ML CARTRIDGE SQ PRN ×3 (00:45→17:13)
[2018-06-05] MEDS: ALBUTEROL FS 2.5 MG/0.5 ML VIAL.NEB NEB SCH ×4 (01:45→19:40)
[2018-06-05] MEDS: IPRATROPIUM NEB FS 0.5 MG/2.5 ML AMPUL.NEB NEB SCH ×4 (01:45→19:40)
[2018-06-05] MEDS: PANTOPRAZOLE 40 MG/PACK PACK GT SCH (05:27)
[2018-06-05 07:58] VITALS: BP 124/66
--- NOTE | 2018-06-05 09:00 | NUR ---
Seen and examined by Dr. Capone, no new order given.
[2018-06-05] MEDS: ACIDOPHILUS/BULGARICUS 1 EACH TAB.CHEW GT SCH ×2 (09:33→17:12)
[2018-06-05] MEDS: FERROUS SULFATE - FOR SA ONLY 330 MG/7.5 ML UDC GT SCH (09:33)
[2018-06-05] MEDS: VALSARTAN 80 MG TABLET GT SCH (09:33)
[2018-06-05] MEDS: MULTIVIT W/MINERALS 1 TAB TABLET GT SCH (09:33)
[2018-06-05] MEDS: DOCUSATE SODIUM LIQ 100 MG/10 ML UDC GT SCH ×2 (09:33→17:12)
[2018-06-05] MEDS: ACETAMINOPHEN 650 MG/20 ML UDC- SA PATIENTS-PAIN ONLY GT SCH ×2 (09:33→21:00)
[2018-06-05] MEDS: LEVETIRACETAM SOL (5 ML) 100 MG/ML UDC GT SCH ×2 (09:33→20:59)
[2018-06-05] MEDS: ZINC SULFATE 220 MG CAPSULE GT SCH (09:34)
[2018-06-05] MEDS: ASCORBIC ACID 500 MG TABLET GT SCH (09:34)
--- NOTE | 2018-06-05 09:55 | NUR ---
RT MONTHLY TRACH CHANGE DONE PER PROTOCOL WITH NEW PORTEX 9. TRACH CHANGE DONE WITH NO COMPLICATIONS. EQUAL BILATERAL BREATHE SOUNDS AND CHEST RISE NOTED. NO BLEEDING OR REDNESS NOTICED AT TRACH SITE. PT PLACED BACK ON COOL AEROSOL. NO RESPIRATORY DISTRESS NOTED. Addendum: 06/05/18 at 1032 by FIGUEROA BHATIA RT Amended: Links added.
[2018-06-05] MEDS: DAKINS QUARTER STRENGTH (0.125%) 480 ML BOTTLE TOP SCH ×2 (10:10→21:02)
[2018-06-05] MEDS: Z GUARD REMEDY 2 OZ OINT TP SCH ×2 (10:10→21:02)
[2018-06-05] MEDS: HYDROGEN PEROXIDE 480 ML BOTTLE TP SCH ×2 (10:10→21:02)
[2018-06-05] MEDS: GLUCERNA 1.2 1,000 ML BOTTLE GT PRN (17:26)
[2018-06-05 20:07] VITALS: BP 117/64
[2018-06-05] MEDS: ENOXAPARIN SODIUM 40 MG/0.4 ML DISP.SYRIN SQ SCH (21:02)
[2018-06-05] MEDS: ATORVASTATIN 10 MG TABLET GT SCH (21:03)
[2018-06-05] MEDS: INSULIN GLARGINE, 100 UNIT/ML CARTRIDGE SQ SCH (21:47)
[2018-06-06] MEDS: BLOOD SUGAR DIAGNOSTIC 1 EACH STRIP IN SCH ×5 (00:22→23:56)
[2018-06-06] MEDS: INSULIN ASPART/LISPRO 100 UNIT/ML CARTRIDGE SQ PRN ×4 (00:24→23:58)
[2018-06-06] MEDS: ALBUTEROL FS 2.5 MG/0.5 ML VIAL.NEB NEB SCH ×4 (01:21→20:12)
[2018-06-06] MEDS: IPRATROPIUM NEB FS 0.5 MG/2.5 ML AMPUL.NEB NEB SCH ×4 (01:21→20:12)
[2018-06-06] MEDS: PANTOPRAZOLE 40 MG/PACK PACK GT SCH (05:51)
[2018-06-06] MEDS: DILTIAZEM HCL 30 MG TABLET GT SCH ×5 (05:51→23:55)
[2018-06-06] MEDS: Z GUARD REMEDY 2 OZ OINT TP SCH ×2 (09:00→20:55)
[2018-06-06] MEDS: DAKINS QUARTER STRENGTH (0.125%) 480 ML BOTTLE TOP SCH ×2 (09:00→20:55)
[2018-06-06] MEDS: HYDROGEN PEROXIDE 480 ML BOTTLE TP SCH ×2 (09:00→20:55)
[2018-06-06] MEDS: ACIDOPHILUS/BULGARICUS 1 EACH TAB.CHEW GT SCH ×2 (09:26→16:58)
[2018-06-06] MEDS: MULTIVIT W/MINERALS 1 TAB TABLET GT SCH (09:26)
[2018-06-06] MEDS: VALSARTAN 80 MG TABLET GT SCH (09:26)
[2018-06-06] MEDS: LEVETIRACETAM SOL (5 ML) 100 MG/ML UDC GT SCH ×2 (09:26→20:54)
[2018-06-06] MEDS: DOCUSATE SODIUM LIQ 100 MG/10 ML UDC GT SCH ×2 (09:26→16:58)
[2018-06-06] MEDS: FERROUS SULFATE - FOR SA ONLY 330 MG/7.5 ML UDC GT SCH (09:26)
[2018-06-06] MEDS: ZINC SULFATE 220 MG CAPSULE GT SCH (09:27)
[2018-06-06] MEDS: ASCORBIC ACID 500 MG TABLET GT SCH (09:27)
[2018-06-06] MEDS: ACETAMINOPHEN 650 MG/20 ML UDC- SA PATIENTS-PAIN ONLY GT SCH ×2 (09:27→20:54)
[2018-06-06 11:55] VITALS: BP 117/74
[2018-06-06] MEDS: GLUCERNA 1.2 1,000 ML BOTTLE GT PRN (13:06)
[2018-06-06 20:24] VITALS: BP 135/86
[2018-06-06] MEDS: ENOXAPARIN SODIUM 40 MG/0.4 ML DISP.SYRIN SQ SCH (20:55)
[2018-06-06] MEDS: ATORVASTATIN 10 MG TABLET GT SCH (21:30)
[2018-06-06] MEDS: INSULIN GLARGINE, 100 UNIT/ML CARTRIDGE SQ SCH (21:32)
[2018-06-07] MEDS: IPRATROPIUM NEB FS 0.5 MG/2.5 ML AMPUL.NEB NEB SCH ×4 (01:31→19:32)
[2018-06-07] MEDS: ALBUTEROL FS 2.5 MG/0.5 ML VIAL.NEB NEB SCH ×4 (01:31→19:32)
[2018-06-07] MEDS: GLUCERNA 1.2 1,000 ML BOTTLE GT PRN ×2 (03:39→22:22)
[2018-06-07] MEDS: DILTIAZEM HCL 30 MG TABLET GT SCH ×3 (05:35→18:44)
[2018-06-07] MEDS: PANTOPRAZOLE 40 MG/PACK PACK GT SCH (05:36)
[2018-06-07] MEDS: BLOOD SUGAR DIAGNOSTIC 1 EACH STRIP IN SCH ×3 (05:36→18:44)
[2018-06-07] MEDS: INSULIN ASPART/LISPRO 100 UNIT/ML CARTRIDGE SQ PRN ×2 (05:37→13:19)
[2018-06-07 07:41] VITALS: BP 121/63
[2018-06-07] MEDS: Z GUARD REMEDY 2 OZ OINT TP SCH ×2 (09:00→21:59)
[2018-06-07] MEDS: VALSARTAN 80 MG TABLET GT SCH (09:00)
[2018-06-07] MEDS: MULTIVIT W/MINERALS 1 TAB TABLET GT SCH (09:00)
[2018-06-07] MEDS: ACIDOPHILUS/BULGARICUS 1 EACH TAB.CHEW GT SCH ×2 (09:00→17:00)
[2018-06-07] MEDS: HYDROGEN PEROXIDE 480 ML BOTTLE TP SCH ×2 (09:00→21:59)
[2018-06-07] MEDS: ZINC SULFATE 220 MG CAPSULE GT SCH (09:00)
[2018-06-07] MEDS: ACETAMINOPHEN 650 MG/20 ML UDC- SA PATIENTS-PAIN ONLY GT SCH ×2 (09:00→21:30)
[2018-06-07] MEDS: FERROUS SULFATE - FOR SA ONLY 330 MG/7.5 ML UDC GT SCH (09:00)
[2018-06-07] MEDS: LEVETIRACETAM SOL (5 ML) 100 MG/ML UDC GT SCH ×2 (09:00→21:30)
[2018-06-07] MEDS: DAKINS QUARTER STRENGTH (0.125%) 480 ML BOTTLE TOP SCH ×2 (09:00→21:59)
[2018-06-07] MEDS: DOCUSATE SODIUM LIQ 100 MG/10 ML UDC GT SCH ×2 (09:00→17:00)
[2018-06-07] MEDS: ASCORBIC ACID 500 MG TABLET GT SCH (09:00)
[2018-06-07] MEDS: ENOXAPARIN SODIUM 40 MG/0.4 ML DISP.SYRIN SQ SCH (21:30)
[2018-06-07] MEDS: ATORVASTATIN 10 MG TABLET GT SCH (22:27)
[2018-06-07] MEDS: INSULIN GLARGINE, 100 UNIT/ML CARTRIDGE SQ SCH (22:28)
[2018-06-08] MEDS: DILTIAZEM HCL 30 MG TABLET GT SCH ×4 (00:08→17:37)
[2018-06-08] MEDS: BLOOD SUGAR DIAGNOSTIC 1 EACH STRIP IN SCH ×4 (00:08→17:38)
[2018-06-08] MEDS: INSULIN ASPART/LISPRO 100 UNIT/ML CARTRIDGE SQ PRN ×4 (00:09→17:38)
[2018-06-08] MEDS: IPRATROPIUM NEB FS 0.5 MG/2.5 ML AMPUL.NEB NEB SCH ×4 (02:11→19:55)
[2018-06-08] MEDS: ALBUTEROL FS 2.5 MG/0.5 ML VIAL.NEB NEB SCH ×4 (02:11→19:55)
[2018-06-08] MEDS: PANTOPRAZOLE 40 MG/PACK PACK GT SCH (06:02)
[2018-06-08 07:40] VITALS: BP 119/63
[2018-06-08] MEDS: LEVETIRACETAM SOL (5 ML) 100 MG/ML UDC GT SCH ×2 (09:58→21:39)
[2018-06-08] MEDS: DOCUSATE SODIUM LIQ 100 MG/10 ML UDC GT SCH ×2 (09:58→17:37)
[2018-06-08] MEDS: FERROUS SULFATE - FOR SA ONLY 330 MG/7.5 ML UDC GT SCH (09:58)
[2018-06-08] MEDS: ACIDOPHILUS/BULGARICUS 1 EACH TAB.CHEW GT SCH ×2 (09:58→17:37)
[2018-06-08] MEDS: VALSARTAN 80 MG TABLET GT SCH (09:58)
[2018-06-08] MEDS: MULTIVIT W/MINERALS 1 TAB TABLET GT SCH (09:59)
[2018-06-08] MEDS: ASCORBIC ACID 500 MG TABLET GT SCH (09:59)
[2018-06-08] MEDS: ACETAMINOPHEN 650 MG/20 ML UDC- SA PATIENTS-PAIN ONLY GT SCH ×2 (09:59→21:40)
[2018-06-08] MEDS: ZINC SULFATE 220 MG CAPSULE GT SCH (09:59)
[2018-06-08] MEDS: DAKINS QUARTER STRENGTH (0.125%) 480 ML BOTTLE TOP SCH ×2 (10:30→21:56)
[2018-06-08] MEDS: HYDROGEN PEROXIDE 480 ML BOTTLE TP SCH ×2 (10:30→21:56)
[2018-06-08] MEDS: Z GUARD REMEDY 2 OZ OINT TP SCH ×2 (10:30→21:56)
[2018-06-08] MEDS: GLUCERNA 1.2 1,000 ML BOTTLE GT PRN (17:38)
[2018-06-08 19:55] VITALS: BP 127/68
[2018-06-08] MEDS: ENOXAPARIN SODIUM 40 MG/0.4 ML DISP.SYRIN SQ SCH (21:40)
[2018-06-08] MEDS: ATORVASTATIN 10 MG TABLET GT SCH (21:40)
[2018-06-08] MEDS: INSULIN GLARGINE, 100 UNIT/ML CARTRIDGE SQ SCH (22:04)
[2018-06-09] MEDS: DILTIAZEM HCL 30 MG TABLET GT SCH ×4 (00:16→17:18)
[2018-06-09] MEDS: BLOOD SUGAR DIAGNOSTIC 1 EACH STRIP IN SCH ×4 (00:16→17:18)
[2018-06-09] MEDS: INSULIN ASPART/LISPRO 100 UNIT/ML CARTRIDGE SQ PRN ×4 (00:17→17:19)
[2018-06-09] MEDS: IPRATROPIUM NEB FS 0.5 MG/2.5 ML AMPUL.NEB NEB SCH ×4 (01:13→19:31)
[2018-06-09] MEDS: ALBUTEROL FS 2.5 MG/0.5 ML VIAL.NEB NEB SCH ×4 (01:13→19:31)
[2018-06-09] MEDS: PANTOPRAZOLE 40 MG/PACK PACK GT SCH (06:17)
[2018-06-09] MEDS: GLUCERNA 1.2 1,000 ML BOTTLE GT PRN (06:18)
[2018-06-09 07:28] VITALS: BP 122/67
[2018-06-09] MEDS: FERROUS SULFATE - FOR SA ONLY 330 MG/7.5 ML UDC GT SCH (09:00)
[2018-06-09] MEDS: ASCORBIC ACID 500 MG TABLET GT SCH (09:00)
[2018-06-09] MEDS: MULTIVIT W/MINERALS 1 TAB TABLET GT SCH (09:00)
[2018-06-09] MEDS: LEVETIRACETAM SOL (5 ML) 100 MG/ML UDC GT SCH ×2 (09:00→21:29)
[2018-06-09] MEDS: ZINC SULFATE 220 MG CAPSULE GT SCH (09:00)
[2018-06-09] MEDS: ACETAMINOPHEN 650 MG/20 ML UDC- SA PATIENTS-PAIN ONLY GT SCH ×2 (09:00→21:29)
[2018-06-09] MEDS: ACIDOPHILUS/BULGARICUS 1 EACH TAB.CHEW GT SCH ×2 (09:00→17:18)
[2018-06-09] MEDS: DOCUSATE SODIUM LIQ 100 MG/10 ML UDC GT SCH ×2 (09:00→17:18)
[2018-06-09] MEDS: VALSARTAN 80 MG TABLET GT SCH (09:00)
[2018-06-09] MEDS: DAKINS QUARTER STRENGTH (0.125%) 480 ML BOTTLE TOP SCH ×2 (09:35→21:30)
[2018-06-09] MEDS: HYDROGEN PEROXIDE 480 ML BOTTLE TP SCH ×2 (09:35→21:30)
[2018-06-09] MEDS: Z GUARD REMEDY 2 OZ OINT TP SCH ×2 (09:35→21:30)
[2018-06-09] MEDS: ENOXAPARIN SODIUM 40 MG/0.4 ML DISP.SYRIN SQ SCH (21:29)
[2018-06-09] MEDS: ATORVASTATIN 10 MG TABLET GT SCH (21:30)
[2018-06-09] MEDS: INSULIN GLARGINE, 100 UNIT/ML CARTRIDGE SQ SCH (22:02)
[2018-06-09 22:17] VITALS: BP 149/84
[2018-06-10] MEDS: BLOOD SUGAR DIAGNOSTIC 1 EACH STRIP IN SCH ×5 (00:35→23:56)
[2018-06-10] MEDS: DILTIAZEM HCL 30 MG TABLET GT SCH ×5 (00:37→23:55)
[2018-06-10] MEDS: ALBUTEROL FS 2.5 MG/0.5 ML VIAL.NEB NEB SCH ×4 (01:47→19:50)
[2018-06-10] MEDS: IPRATROPIUM NEB FS 0.5 MG/2.5 ML AMPUL.NEB NEB SCH ×4 (01:47→19:50)
[2018-06-10] MEDS: GLUCERNA 1.2 1,000 ML BOTTLE GT PRN ×2 (02:28→17:49)
[2018-06-10] MEDS: PANTOPRAZOLE 40 MG/PACK PACK GT SCH (06:00)
[2018-06-10] MEDS: INSULIN ASPART/LISPRO 100 UNIT/ML CARTRIDGE SQ PRN ×4 (06:05→23:57)
--- NOTE | 2018-06-10 06:15 | NUR ---
DEADENER NOTES BLOOD SUGAR 165, 3 UNITS OF INSULIN GIVEN JASKARAN SQ ORDERED.
[2018-06-10 07:43] VITALS: BP 112/70
[2018-06-10] MEDS: DOCUSATE SODIUM LIQ 100 MG/10 ML UDC GT SCH ×2 (09:18→17:28)
[2018-06-10] MEDS: ACETAMINOPHEN 650 MG/20 ML UDC- SA PATIENTS-PAIN ONLY GT SCH ×2 (09:19→20:53)
[2018-06-10] MEDS: ZINC SULFATE 220 MG CAPSULE GT SCH (09:19)
[2018-06-10] MEDS: LEVETIRACETAM SOL (5 ML) 100 MG/ML UDC GT SCH ×2 (09:19→20:53)
[2018-06-10] MEDS: ASCORBIC ACID 500 MG TABLET GT SCH (09:19)
[2018-06-10] MEDS: MULTIVIT W/MINERALS 1 TAB TABLET GT SCH (09:19)
[2018-06-10] MEDS: ACIDOPHILUS/BULGARICUS 1 EACH TAB.CHEW GT SCH ×2 (09:19→17:28)
[2018-06-10] MEDS: FERROUS SULFATE - FOR SA ONLY 330 MG/7.5 ML UDC GT SCH (09:19)
[2018-06-10] MEDS: VALSARTAN 80 MG TABLET GT SCH (09:19)
[2018-06-10] MEDS: Z GUARD REMEDY 2 OZ OINT TP SCH ×2 (10:00→20:59)
[2018-06-10] MEDS: HYDROGEN PEROXIDE 480 ML BOTTLE TP SCH ×2 (10:00→20:59)
[2018-06-10] MEDS: DAKINS QUARTER STRENGTH (0.125%) 480 ML BOTTLE TOP SCH ×2 (10:00→20:58)
[2018-06-10 20:15] VITALS: BP 115/62
[2018-06-10] MEDS: ENOXAPARIN SODIUM 40 MG/0.4 ML DISP.SYRIN SQ SCH (20:58)
[2018-06-10] MEDS: ATORVASTATIN 10 MG TABLET GT SCH (22:33)
[2018-06-10] MEDS: INSULIN GLARGINE, 100 UNIT/ML CARTRIDGE SQ SCH (22:34)
[2018-06-11] MEDS: IPRATROPIUM NEB FS 0.5 MG/2.5 ML AMPUL.NEB NEB SCH ×4 (01:07→19:32)
[2018-06-11] MEDS: ALBUTEROL FS 2.5 MG/0.5 ML VIAL.NEB NEB SCH ×4 (01:07→19:32)
[2018-06-11] MEDS: GLUCERNA 1.2 1,000 ML BOTTLE GT PRN (04:34)
[2018-06-11] MEDS: PANTOPRAZOLE 40 MG/PACK PACK GT SCH (05:31)
[2018-06-11] MEDS: DILTIAZEM HCL 30 MG TABLET GT SCH ×3 (05:31→17:27)
[2018-06-11] MEDS: BLOOD SUGAR DIAGNOSTIC 1 EACH STRIP IN SCH ×3 (05:32→17:27)
[2018-06-11] MEDS: INSULIN ASPART/LISPRO 100 UNIT/ML CARTRIDGE SQ PRN ×3 (05:33→17:27)
[2018-06-11] MEDS: ACETAMINOPHEN 650 MG/20 ML UDC- SA PATIENTS-PAIN ONLY GT SCH ×2 (09:30→20:50)
[2018-06-11] MEDS: MULTIVIT W/MINERALS 1 TAB TABLET GT SCH (09:30)
[2018-06-11] MEDS: LEVETIRACETAM SOL (5 ML) 100 MG/ML UDC GT SCH ×2 (09:30→20:47)
[2018-06-11] MEDS: VALSARTAN 80 MG TABLET GT SCH (09:30)
[2018-06-11] MEDS: DOCUSATE SODIUM LIQ 100 MG/10 ML UDC GT SCH ×2 (09:30→17:27)
[2018-06-11] MEDS: ACIDOPHILUS/BULGARICUS 1 EACH TAB.CHEW GT SCH ×2 (09:30→17:27)
[2018-06-11] MEDS: ASCORBIC ACID 500 MG TABLET GT SCH (09:30)
[2018-06-11] MEDS: ZINC SULFATE 220 MG CAPSULE GT SCH (09:30)
[2018-06-11] MEDS: FERROUS SULFATE - FOR SA ONLY 330 MG/7.5 ML UDC GT SCH (09:30)
[2018-06-11 09:34] VITALS: BP 112/89
[2018-06-11] MEDS: Z GUARD REMEDY 2 OZ OINT TP SCH ×2 (10:10→20:51)
[2018-06-11] MEDS: DAKINS QUARTER STRENGTH (0.125%) 480 ML BOTTLE TOP SCH ×2 (10:10→20:51)
[2018-06-11] MEDS: HYDROGEN PEROXIDE 480 ML BOTTLE TP SCH ×2 (10:10→20:51)
[2018-06-11 20:10] VITALS: BP 120/65
[2018-06-11] MEDS: ENOXAPARIN SODIUM 40 MG/0.4 ML DISP.SYRIN SQ SCH (20:50)
[2018-06-11] MEDS: ATORVASTATIN 10 MG TABLET GT SCH (22:00)
[2018-06-11] MEDS: INSULIN GLARGINE, 100 UNIT/ML CARTRIDGE SQ SCH (22:01)
[2018-06-12] MEDS: BLOOD SUGAR DIAGNOSTIC 1 EACH STRIP IN SCH ×4 (00:03→17:20)
[2018-06-12] MEDS: DILTIAZEM HCL 30 MG TABLET GT SCH ×4 (00:03→17:20)
[2018-06-12] MEDS: GLUCERNA 1.2 1,000 ML BOTTLE GT PRN (00:04)
[2018-06-12] MEDS: INSULIN ASPART/LISPRO 100 UNIT/ML CARTRIDGE SQ PRN ×4 (00:04→17:21)
[2018-06-12] MEDS: IPRATROPIUM NEB FS 0.5 MG/2.5 ML AMPUL.NEB NEB SCH ×4 (01:59→19:57)
[2018-06-12] MEDS: ALBUTEROL FS 2.5 MG/0.5 ML VIAL.NEB NEB SCH ×4 (01:59→19:57)
[2018-06-12] MEDS: PANTOPRAZOLE 40 MG/PACK PACK GT SCH (05:31)
[2018-06-12] MEDS: MULTIVIT W/MINERALS 1 TAB TABLET GT SCH (09:36)
[2018-06-12] MEDS: FERROUS SULFATE - FOR SA ONLY 330 MG/7.5 ML UDC GT SCH (09:36)
[2018-06-12] MEDS: VALSARTAN 80 MG TABLET GT SCH (09:36)
[2018-06-12] MEDS: LEVETIRACETAM SOL (5 ML) 100 MG/ML UDC GT SCH ×2 (09:36→20:32)
[2018-06-12] MEDS: ACIDOPHILUS/BULGARICUS 1 EACH TAB.CHEW GT SCH ×2 (09:36→17:20)
[2018-06-12] MEDS: ACETAMINOPHEN 650 MG/20 ML UDC- SA PATIENTS-PAIN ONLY GT SCH ×2 (09:36→20:33)
[2018-06-12] MEDS: ZINC SULFATE 220 MG CAPSULE GT SCH (09:36)
[2018-06-12] MEDS: DOCUSATE SODIUM LIQ 100 MG/10 ML UDC GT SCH ×2 (09:36→17:20)
[2018-06-12] MEDS: ASCORBIC ACID 500 MG TABLET GT SCH (09:36)
--- NOTE | 2018-06-12 09:45 | NUR ---
Seen and examined by Dr. Capone, no new order given.
[2018-06-12] MEDS: DAKINS QUARTER STRENGTH (0.125%) 480 ML BOTTLE TOP SCH ×2 (10:10→20:33)
[2018-06-12] MEDS: Z GUARD REMEDY 2 OZ OINT TP SCH ×2 (10:10→20:34)
[2018-06-12] MEDS: HYDROGEN PEROXIDE 480 ML BOTTLE TP SCH ×2 (10:10→20:34)
[2018-06-12 10:46] VITALS: BP 116/68
[2018-06-12 20:19] VITALS: BP 132/71
[2018-06-12] MEDS: ENOXAPARIN SODIUM 40 MG/0.4 ML DISP.SYRIN SQ SCH (20:33)
[2018-06-12] MEDS: ATORVASTATIN 10 MG TABLET GT SCH (21:53)
[2018-06-12] MEDS: INSULIN GLARGINE, 100 UNIT/ML CARTRIDGE SQ SCH (21:53)
[2018-06-13] MEDS: INSULIN ASPART/LISPRO 100 UNIT/ML CARTRIDGE SQ PRN ×4 (00:01→23:45)
[2018-06-13] MEDS: IPRATROPIUM NEB FS 0.5 MG/2.5 ML AMPUL.NEB NEB SCH ×4 (01:40→19:24)
[2018-06-13] MEDS: ALBUTEROL FS 2.5 MG/0.5 ML VIAL.NEB NEB SCH ×4 (01:40→19:24)
[2018-06-13] MEDS: DILTIAZEM HCL 30 MG TABLET GT SCH ×4 (06:05→23:43)
[2018-06-13] MEDS: PANTOPRAZOLE 40 MG/PACK PACK GT SCH (06:06)
[2018-06-13] MEDS: BLOOD SUGAR DIAGNOSTIC 1 EACH STRIP IN SCH ×4 (06:07→23:43)
[2018-06-13 07:53] VITALS: BP 103/55
[2018-06-13] MEDS: DOCUSATE SODIUM LIQ 100 MG/10 ML UDC GT SCH ×2 (09:00→16:41)
[2018-06-13] MEDS: FERROUS SULFATE - FOR SA ONLY 330 MG/7.5 ML UDC GT SCH (09:00)
[2018-06-13] MEDS: ASCORBIC ACID 500 MG TABLET GT SCH (09:00)
[2018-06-13] MEDS: ZINC SULFATE 220 MG CAPSULE GT SCH (09:00)
[2018-06-13] MEDS: MULTIVIT W/MINERALS 1 TAB TABLET GT SCH (09:00)
[2018-06-13] MEDS: LEVETIRACETAM SOL (5 ML) 100 MG/ML UDC GT SCH ×2 (09:00→21:42)
[2018-06-13] MEDS: ACETAMINOPHEN 650 MG/20 ML UDC- SA PATIENTS-PAIN ONLY GT SCH ×2 (09:00→21:42)
[2018-06-13] MEDS: ACIDOPHILUS/BULGARICUS 1 EACH TAB.CHEW GT SCH ×2 (09:00→16:41)
[2018-06-13] MEDS: VALSARTAN 80 MG TABLET GT SCH (09:00)
[2018-06-13] MEDS: DAKINS QUARTER STRENGTH (0.125%) 480 ML BOTTLE TOP SCH ×2 (10:00→22:00)
[2018-06-13] MEDS: HYDROGEN PEROXIDE 480 ML BOTTLE TP SCH ×2 (10:00→22:00)
[2018-06-13] MEDS: Z GUARD REMEDY 2 OZ OINT TP SCH ×2 (10:00→22:00)
--- NOTE | 2018-06-13 11:00 | NUR ---
Patient vomited x1, moderate amount of vomitus, held feeding at this time, abdomen not distended, soft to touch. No further s/s of aspiration. Zofran via GT as needed given. Dr. Pineda made aware, no new orders at this time. Patient closely monitored.
--- NOTE | 2018-06-13 12:00 | NUR ---
No vomiting noted at this time, feeding resumed. Patient not in distress. Closely monitored.
[2018-06-13] MEDS: GLUCERNA 1.2 1,000 ML BOTTLE GT PRN (16:41)
[2018-06-13 20:05] VITALS: BP 115/75
[2018-06-13] MEDS: ENOXAPARIN SODIUM 40 MG/0.4 ML DISP.SYRIN SQ SCH (21:43)
[2018-06-13] MEDS: ATORVASTATIN 10 MG TABLET GT SCH (21:43)
[2018-06-13] MEDS: INSULIN GLARGINE, 100 UNIT/ML CARTRIDGE SQ SCH (21:55)
[2018-06-14] MEDS: ALBUTEROL FS 2.5 MG/0.5 ML VIAL.NEB NEB SCH ×4 (01:58→20:24)
[2018-06-14] MEDS: IPRATROPIUM NEB FS 0.5 MG/2.5 ML AMPUL.NEB NEB SCH ×4 (01:58→20:24)
[2018-06-14] MEDS: BLOOD SUGAR DIAGNOSTIC 1 EACH STRIP IN SCH ×3 (05:59→18:18)
[2018-06-14] MEDS: DILTIAZEM HCL 30 MG TABLET GT SCH ×3 (05:59→18:18)
[2018-06-14] MEDS: PANTOPRAZOLE 40 MG/PACK PACK GT SCH (05:59)
[2018-06-14] MEDS: INSULIN ASPART/LISPRO 100 UNIT/ML CARTRIDGE SQ PRN ×2 (06:00→18:17)
[2018-06-14] MEDS: GLUCERNA 1.2 1,000 ML BOTTLE GT PRN (06:00)
[2018-06-14 07:52] VITALS: BP 95/57
[2018-06-14] MEDS: VALSARTAN 80 MG TABLET GT SCH (09:00)
[2018-06-14] MEDS: DOCUSATE SODIUM LIQ 100 MG/10 ML UDC GT SCH ×2 (09:44→17:00)
[2018-06-14] MEDS: FERROUS SULFATE - FOR SA ONLY 330 MG/7.5 ML UDC GT SCH (09:44)
[2018-06-14] MEDS: LEVETIRACETAM SOL (5 ML) 100 MG/ML UDC GT SCH ×2 (09:44→20:48)
[2018-06-14] MEDS: MULTIVIT W/MINERALS 1 TAB TABLET GT SCH (09:44)
[2018-06-14] MEDS: ACIDOPHILUS/BULGARICUS 1 EACH TAB.CHEW GT SCH ×2 (09:44→17:00)
[2018-06-14] MEDS: ZINC SULFATE 220 MG CAPSULE GT SCH (09:45)
[2018-06-14] MEDS: ACETAMINOPHEN 650 MG/20 ML UDC- SA PATIENTS-PAIN ONLY GT SCH ×2 (09:45→20:48)
[2018-06-14] MEDS: ASCORBIC ACID 500 MG TABLET GT SCH (09:45)
[2018-06-14] MEDS: HYDROGEN PEROXIDE 480 ML BOTTLE TP SCH ×2 (10:15→21:33)
[2018-06-14] MEDS: DAKINS QUARTER STRENGTH (0.125%) 480 ML BOTTLE TOP SCH ×2 (10:15→21:33)
[2018-06-14] MEDS: Z GUARD REMEDY 2 OZ OINT TP SCH ×2 (10:15→21:33)
[2018-06-14] MEDS: ONDANSETRON 4 MG TAB.RAPDIS GT PRN (12:31)
[2018-06-14] MEDS: MAGNESIUM HYDROXIDE 30 ML UDC GT PRN (18:18)
[2018-06-14 19:30] VITALS: BP 116/58
--- NOTE | 2018-06-14 20:00 | NUR ---
Seen by MILLY WALDRON.
[2018-06-14] MEDS: ENOXAPARIN SODIUM 40 MG/0.4 ML DISP.SYRIN SQ SCH (20:49)
[2018-06-14] MEDS: ATORVASTATIN 10 MG TABLET GT SCH (21:33)
[2018-06-14] MEDS: INSULIN GLARGINE, 100 UNIT/ML CARTRIDGE SQ SCH (21:34)
[2018-06-15] MEDS: BLOOD SUGAR DIAGNOSTIC 1 EACH STRIP IN SCH ×5 (00:55→23:31)
[2018-06-15] MEDS: DILTIAZEM HCL 30 MG TABLET GT SCH ×5 (00:55→23:33)
[2018-06-15] MEDS: INSULIN ASPART/LISPRO 100 UNIT/ML CARTRIDGE SQ PRN ×4 (00:56→18:03)
[2018-06-15] MEDS: IPRATROPIUM NEB FS 0.5 MG/2.5 ML AMPUL.NEB NEB SCH ×4 (01:46→19:44)
[2018-06-15] MEDS: ALBUTEROL FS 2.5 MG/0.5 ML VIAL.NEB NEB SCH ×4 (01:47→19:44)
[2018-06-15] MEDS: PANTOPRAZOLE 40 MG/PACK PACK GT SCH (05:46)
[2018-06-15] MEDS: GLUCERNA 1.2 1,000 ML BOTTLE GT PRN ×2 (06:30→18:04)
[2018-06-15 07:54] VITALS: BP 126/61
[2018-06-15] MEDS: VALSARTAN 80 MG TABLET GT SCH (09:00)
[2018-06-15] MEDS: ASCORBIC ACID 500 MG TABLET GT SCH (09:00)
[2018-06-15] MEDS: ACIDOPHILUS/BULGARICUS 1 EACH TAB.CHEW GT SCH ×2 (09:00→17:00)
[2018-06-15] MEDS: LEVETIRACETAM SOL (5 ML) 100 MG/ML UDC GT SCH ×2 (09:00→21:30)
[2018-06-15] MEDS: FERROUS SULFATE - FOR SA ONLY 330 MG/7.5 ML UDC GT SCH (09:00)
[2018-06-15] MEDS: ACETAMINOPHEN 650 MG/20 ML UDC- SA PATIENTS-PAIN ONLY GT SCH ×2 (09:00→21:30)
[2018-06-15] MEDS: ZINC SULFATE 220 MG CAPSULE GT SCH (09:00)
[2018-06-15] MEDS: MULTIVIT W/MINERALS 1 TAB TABLET GT SCH (09:00)
[2018-06-15] MEDS: DOCUSATE SODIUM LIQ 100 MG/10 ML UDC GT SCH ×2 (09:00→17:00)
[2018-06-15] MEDS: HYDROGEN PEROXIDE 480 ML BOTTLE TP SCH ×2 (09:30→21:28)
[2018-06-15] MEDS: Z GUARD REMEDY 2 OZ OINT TP SCH ×2 (09:30→21:28)
[2018-06-15] MEDS: DAKINS QUARTER STRENGTH (0.125%) 480 ML BOTTLE TOP SCH ×2 (09:30→21:28)
--- NOTE | 2018-06-15 18:47 | NUR ---
Inform resident's daughter of KUB result which does not show obstruction. She appreciated that we are looking after her mom. Patient with BM this morning and no episode of vomiting this shift.
[2018-06-15 19:50] VITALS: BP 117/50
[2018-06-15] MEDS: ENOXAPARIN SODIUM 40 MG/0.4 ML DISP.SYRIN SQ SCH (21:28)
[2018-06-15] MEDS: ATORVASTATIN 10 MG TABLET GT SCH (21:29)
[2018-06-15] MEDS: INSULIN GLARGINE, 100 UNIT/ML CARTRIDGE SQ SCH (21:58)
[2018-06-16] MEDS: IPRATROPIUM NEB FS 0.5 MG/2.5 ML AMPUL.NEB NEB SCH ×4 (01:30→19:59)
[2018-06-16] MEDS: ALBUTEROL FS 2.5 MG/0.5 ML VIAL.NEB NEB SCH ×4 (01:30→19:59)
[2018-06-16] MEDS: BLOOD SUGAR DIAGNOSTIC 1 EACH STRIP IN SCH ×4 (05:38→23:27)
[2018-06-16] MEDS: DILTIAZEM HCL 30 MG TABLET GT SCH ×3 (05:38→17:22)
[2018-06-16] MEDS: PANTOPRAZOLE 40 MG/PACK PACK GT SCH (05:38)
[2018-06-16] MEDS: INSULIN ASPART/LISPRO 100 UNIT/ML CARTRIDGE SQ PRN ×3 (05:58→23:28)
[2018-06-16 08:02] VITALS: BP 126/74
[2018-06-16] MEDS: LEVETIRACETAM SOL (5 ML) 100 MG/ML UDC GT SCH ×2 (09:00→21:58)
[2018-06-16] MEDS: VALSARTAN 80 MG TABLET GT SCH (09:00)
[2018-06-16] MEDS: ACETAMINOPHEN 650 MG/20 ML UDC- SA PATIENTS-PAIN ONLY GT SCH ×2 (09:00→22:00)
[2018-06-16] MEDS: ASCORBIC ACID 500 MG TABLET GT SCH (09:00)
[2018-06-16] MEDS: MULTIVIT W/MINERALS 1 TAB TABLET GT SCH (09:00)
[2018-06-16] MEDS: DOCUSATE SODIUM LIQ 100 MG/10 ML UDC GT SCH ×2 (09:00→17:22)
[2018-06-16] MEDS: ACIDOPHILUS/BULGARICUS 1 EACH TAB.CHEW GT SCH ×2 (09:00→17:22)
[2018-06-16] MEDS: ZINC SULFATE 220 MG CAPSULE GT SCH (09:00)
[2018-06-16] MEDS: FERROUS SULFATE - FOR SA ONLY 330 MG/7.5 ML UDC GT SCH (09:00)
[2018-06-16] MEDS: Z GUARD REMEDY 2 OZ OINT TP SCH ×2 (09:30→21:00)
[2018-06-16] MEDS: DAKINS QUARTER STRENGTH (0.125%) 480 ML BOTTLE TOP SCH ×2 (09:30→21:00)
[2018-06-16] MEDS: HYDROGEN PEROXIDE 480 ML BOTTLE TP SCH ×2 (09:30→21:00)
[2018-06-16 20:00] VITALS: BP 114/66
[2018-06-16] MEDS: ENOXAPARIN SODIUM 40 MG/0.4 ML DISP.SYRIN SQ SCH (22:00)
[2018-06-16] MEDS: ATORVASTATIN 10 MG TABLET GT SCH (22:03)
[2018-06-16] MEDS: INSULIN GLARGINE, 100 UNIT/ML CARTRIDGE SQ SCH (22:08)
--- NOTE | 2018-06-16 22:21 | NUR ---
RN NOTES: BLOOD SUGAR THIS PM WAS 176. 12 UNITS OF LANTUS WAS ADMINISTERED. WILL CONTINUE TO MONITOR AND RECHECK.
--- NOTE | 2018-06-16 22:30 | NUR ---
daughter/conservator Kelly Wong visited and asked charge nurse for copy of facesheet for updating purposes and medication list. charge nurse provided the document she's asking. charge nurse also updated her with her mom's current condition. patient asleep, no distress noted.
--- NOTE | 2018-06-16 23:28 | NUR ---
RN NOTES: BLOOD SUGAR RECHECKED AND IS 160. 3 UNITS OF INSULIN WAS ADMINISTERED. WILL CONTINUE TO MONITOR.
[2018-06-17] MEDS: DILTIAZEM HCL 30 MG TABLET GT SCH ×4 (00:12→17:07)
[2018-06-17] MEDS: IPRATROPIUM NEB FS 0.5 MG/2.5 ML AMPUL.NEB NEB SCH ×4 (01:37→19:50)
[2018-06-17] MEDS: ALBUTEROL FS 2.5 MG/0.5 ML VIAL.NEB NEB SCH ×4 (01:37→19:50)
[2018-06-17] MEDS: GLUCERNA 1.2 1,000 ML BOTTLE GT PRN (04:06)
[2018-06-17] MEDS: PANTOPRAZOLE 40 MG/PACK PACK GT SCH (05:42)
[2018-06-17] MEDS: BLOOD SUGAR DIAGNOSTIC 1 EACH STRIP IN SCH ×3 (05:42→17:57)
[2018-06-17] MEDS: INSULIN ASPART/LISPRO 100 UNIT/ML CARTRIDGE SQ PRN ×3 (05:43→17:58)
--- NOTE | 2018-06-17 05:43 | NUR ---
RN NOTES: BLOOD SUGAR THIS AM WAS 133. NO INSULIN WAS ADMINISTERED. WILL ENDORSE TO AM NURSE.
[2018-06-17 06:16] VITALS: BP 130/86
[2018-06-17 07:34] VITALS: BP 105/64
[2018-06-17] MEDS: VALSARTAN 80 MG TABLET GT SCH (09:00)
[2018-06-17] MEDS: DOCUSATE SODIUM LIQ 100 MG/10 ML UDC GT SCH ×2 (09:09→16:39)
[2018-06-17] MEDS: ACIDOPHILUS/BULGARICUS 1 EACH TAB.CHEW GT SCH ×2 (09:09→16:39)
[2018-06-17] MEDS: FERROUS SULFATE - FOR SA ONLY 330 MG/7.5 ML UDC GT SCH (09:09)
[2018-06-17] MEDS: LEVETIRACETAM SOL (5 ML) 100 MG/ML UDC GT SCH ×2 (09:09→21:39)
[2018-06-17] MEDS: MULTIVIT W/MINERALS 1 TAB TABLET GT SCH (09:09)
[2018-06-17] MEDS: Z GUARD REMEDY 2 OZ OINT TP SCH ×2 (09:16→21:40)
[2018-06-17] MEDS: ASCORBIC ACID 500 MG TABLET GT SCH (09:16)
[2018-06-17] MEDS: HYDROGEN PEROXIDE 480 ML BOTTLE TP SCH ×2 (09:16→21:39)
[2018-06-17] MEDS: DAKINS QUARTER STRENGTH (0.125%) 480 ML BOTTLE TOP SCH ×2 (09:16→21:39)
[2018-06-17] MEDS: ZINC SULFATE 220 MG CAPSULE GT SCH (09:16)
[2018-06-17] MEDS: ACETAMINOPHEN 650 MG/20 ML UDC- SA PATIENTS-PAIN ONLY GT SCH ×2 (09:17→21:39)
[2018-06-17 20:22] VITALS: BP 130/71
[2018-06-17] MEDS: ENOXAPARIN SODIUM 40 MG/0.4 ML DISP.SYRIN SQ SCH (21:39)
[2018-06-17] MEDS: INSULIN GLARGINE, 100 UNIT/ML CARTRIDGE SQ SCH (21:40)
[2018-06-17] MEDS: ATORVASTATIN 10 MG TABLET GT SCH (21:40)
[2018-06-18] MEDS: DILTIAZEM HCL 30 MG TABLET GT SCH ×4 (00:17→17:55)
[2018-06-18] MEDS: BLOOD SUGAR DIAGNOSTIC 1 EACH STRIP IN SCH ×4 (00:17→17:55)
[2018-06-18] MEDS: INSULIN ASPART/LISPRO 100 UNIT/ML CARTRIDGE SQ PRN ×3 (00:18→17:56)
[2018-06-18] MEDS: IPRATROPIUM NEB FS 0.5 MG/2.5 ML AMPUL.NEB NEB SCH ×4 (01:40→20:13)
[2018-06-18] MEDS: ALBUTEROL FS 2.5 MG/0.5 ML VIAL.NEB NEB SCH ×4 (01:40→20:13)
[2018-06-18] MEDS: PANTOPRAZOLE 40 MG/PACK PACK GT SCH (05:47)
[2018-06-18 08:06] VITALS: BP 114/73
[2018-06-18] MEDS: ASCORBIC ACID 500 MG TABLET GT SCH (09:00)
[2018-06-18] MEDS: DOCUSATE SODIUM LIQ 100 MG/10 ML UDC GT SCH ×2 (09:00→17:55)
[2018-06-18] MEDS: ZINC SULFATE 220 MG CAPSULE GT SCH (09:00)
[2018-06-18] MEDS: FERROUS SULFATE - FOR SA ONLY 330 MG/7.5 ML UDC GT SCH (09:00)
[2018-06-18] MEDS: ACETAMINOPHEN 650 MG/20 ML UDC- SA PATIENTS-PAIN ONLY GT SCH ×2 (09:00→21:00)
[2018-06-18] MEDS: LEVETIRACETAM SOL (5 ML) 100 MG/ML UDC GT SCH ×2 (09:00→21:00)
[2018-06-18] MEDS: VALSARTAN 80 MG TABLET GT SCH (09:00)
[2018-06-18] MEDS: ACIDOPHILUS/BULGARICUS 1 EACH TAB.CHEW GT SCH ×2 (09:00→17:55)
[2018-06-18] MEDS: MULTIVIT W/MINERALS 1 TAB TABLET GT SCH (09:00)
[2018-06-18] MEDS: Z GUARD REMEDY 2 OZ OINT TP SCH ×2 (10:00→21:00)
[2018-06-18] MEDS: DAKINS QUARTER STRENGTH (0.125%) 480 ML BOTTLE TOP SCH ×2 (10:00→21:00)
[2018-06-18] MEDS: HYDROGEN PEROXIDE 480 ML BOTTLE TP SCH ×2 (10:00→21:00)
[2018-06-18 19:56] VITALS: BP 134/77
[2018-06-18] MEDS: ENOXAPARIN SODIUM 40 MG/0.4 ML DISP.SYRIN SQ SCH (21:00)
[2018-06-18] MEDS: ATORVASTATIN 10 MG TABLET GT SCH (22:32)
[2018-06-18] MEDS: INSULIN GLARGINE, 100 UNIT/ML CARTRIDGE SQ SCH (22:41)
[2018-06-19] MEDS: DILTIAZEM HCL 30 MG TABLET GT SCH ×4 (00:01→17:13)
[2018-06-19] MEDS: BLOOD SUGAR DIAGNOSTIC 1 EACH STRIP IN SCH ×4 (00:01→17:14)
[2018-06-19] MEDS: INSULIN ASPART/LISPRO 100 UNIT/ML CARTRIDGE SQ PRN ×3 (00:04→17:15)
[2018-06-19] MEDS: ALBUTEROL FS 2.5 MG/0.5 ML VIAL.NEB NEB SCH ×4 (02:00→19:30)
[2018-06-19] MEDS: IPRATROPIUM NEB FS 0.5 MG/2.5 ML AMPUL.NEB NEB SCH ×4 (02:00→19:30)
[2018-06-19] MEDS: PANTOPRAZOLE 40 MG/PACK PACK GT SCH (06:00)
[2018-06-19 07:54] VITALS: BP 112/62
[2018-06-19] MEDS: LEVETIRACETAM SOL (5 ML) 100 MG/ML UDC GT SCH ×2 (09:00→21:00)
[2018-06-19] MEDS: ASCORBIC ACID 500 MG TABLET GT SCH (09:00)
[2018-06-19] MEDS: ACIDOPHILUS/BULGARICUS 1 EACH TAB.CHEW GT SCH ×2 (09:00→17:13)
[2018-06-19] MEDS: MULTIVIT W/MINERALS 1 TAB TABLET GT SCH (09:00)
[2018-06-19] MEDS: DOCUSATE SODIUM LIQ 100 MG/10 ML UDC GT SCH ×2 (09:00→17:13)
[2018-06-19] MEDS: VALSARTAN 80 MG TABLET GT SCH (09:00)
[2018-06-19] MEDS: ZINC SULFATE 220 MG CAPSULE GT SCH (09:00)
[2018-06-19] MEDS: FERROUS SULFATE - FOR SA ONLY 330 MG/7.5 ML UDC GT SCH (09:00)
[2018-06-19] MEDS: ACETAMINOPHEN 650 MG/20 ML UDC- SA PATIENTS-PAIN ONLY GT SCH ×2 (10:38→21:00)
[2018-06-19] MEDS: Z GUARD REMEDY 2 OZ OINT TP SCH ×2 (12:15→21:00)
[2018-06-19] MEDS: HYDROGEN PEROXIDE 480 ML BOTTLE TP SCH ×2 (12:15→21:00)
[2018-06-19] MEDS: DAKINS QUARTER STRENGTH (0.125%) 480 ML BOTTLE TOP SCH ×2 (12:15→21:00)
[2018-06-19] MEDS: MAGNESIUM HYDROXIDE 30 ML UDC GT PRN (13:12)
[2018-06-19] MEDS: ONDANSETRON 4 MG TAB.RAPDIS GT PRN (13:51)
[2018-06-19] MEDS: ENOXAPARIN SODIUM 40 MG/0.4 ML DISP.SYRIN SQ SCH (21:00)
[2018-06-19 21:29] VITALS: BP 122/76
[2018-06-19] MEDS: INSULIN GLARGINE, 100 UNIT/ML CARTRIDGE SQ SCH (22:07)
[2018-06-19] MEDS: ATORVASTATIN 10 MG TABLET GT SCH (22:07)
[2018-06-20] MEDS: DILTIAZEM HCL 30 MG TABLET GT SCH ×4 (00:05→17:56)
[2018-06-20] MEDS: BLOOD SUGAR DIAGNOSTIC 1 EACH STRIP IN SCH ×4 (00:05→17:56)
[2018-06-20] MEDS: INSULIN ASPART/LISPRO 100 UNIT/ML CARTRIDGE SQ PRN ×4 (00:05→17:56)
[2018-06-20] MEDS: ALBUTEROL FS 2.5 MG/0.5 ML VIAL.NEB NEB SCH ×4 (01:38→20:10)
[2018-06-20] MEDS: IPRATROPIUM NEB FS 0.5 MG/2.5 ML AMPUL.NEB NEB SCH ×4 (01:38→20:11)
[2018-06-20] MEDS: PANTOPRAZOLE 40 MG/PACK PACK GT SCH (05:41)
[2018-06-20 07:33] VITALS: BP 112/61
[2018-06-20] MEDS: ACIDOPHILUS/BULGARICUS 1 EACH TAB.CHEW GT SCH ×2 (09:00→17:56)
[2018-06-20] MEDS: ASCORBIC ACID 500 MG TABLET GT SCH (09:00)
[2018-06-20] MEDS: FERROUS SULFATE - FOR SA ONLY 330 MG/7.5 ML UDC GT SCH (09:00)
[2018-06-20] MEDS: VALSARTAN 80 MG TABLET GT SCH (09:00)
[2018-06-20] MEDS: ACETAMINOPHEN 650 MG/20 ML UDC- SA PATIENTS-PAIN ONLY GT SCH ×2 (09:00→21:52)
[2018-06-20] MEDS: LEVETIRACETAM SOL (5 ML) 100 MG/ML UDC GT SCH ×2 (09:00→21:52)
[2018-06-20] MEDS: DOCUSATE SODIUM LIQ 100 MG/10 ML UDC GT SCH ×2 (09:00→17:56)
[2018-06-20] MEDS: MULTIVIT W/MINERALS 1 TAB TABLET GT SCH (09:00)
[2018-06-20] MEDS: Z GUARD REMEDY 2 OZ OINT TP SCH ×2 (09:00→22:30)
[2018-06-20] MEDS: ZINC SULFATE 220 MG CAPSULE GT SCH (09:00)
[2018-06-20] MEDS: DAKINS QUARTER STRENGTH (0.125%) 480 ML BOTTLE TOP SCH ×2 (10:00→22:30)
[2018-06-20] MEDS: HYDROGEN PEROXIDE 480 ML BOTTLE TP SCH ×2 (10:00→22:30)
[2018-06-20] MEDS: GLUCERNA 1.2 1,000 ML BOTTLE GT PRN (13:46)
[2018-06-20 20:51] VITALS: BP 111/63
[2018-06-20] MEDS: ENOXAPARIN SODIUM 40 MG/0.4 ML DISP.SYRIN SQ SCH (21:52)
[2018-06-20] MEDS: ATORVASTATIN 10 MG TABLET GT SCH (21:53)
[2018-06-20] MEDS: INSULIN GLARGINE, 100 UNIT/ML CARTRIDGE SQ SCH (22:17)
[2018-06-21] MEDS: DILTIAZEM HCL 30 MG TABLET GT SCH ×4 (00:10→17:59)
[2018-06-21] MEDS: BLOOD SUGAR DIAGNOSTIC 1 EACH STRIP IN SCH ×4 (00:10→17:59)
[2018-06-21] MEDS: INSULIN ASPART/LISPRO 100 UNIT/ML CARTRIDGE SQ PRN ×4 (00:12→18:04)
[2018-06-21] MEDS: ALBUTEROL FS 2.5 MG/0.5 ML VIAL.NEB NEB SCH ×4 (01:33→19:06)
[2018-06-21] MEDS: IPRATROPIUM NEB FS 0.5 MG/2.5 ML AMPUL.NEB NEB SCH ×4 (01:33→19:06)
[2018-06-21] MEDS: PANTOPRAZOLE 40 MG/PACK PACK GT SCH (05:29)
[2018-06-21] MEDS: GLUCERNA 1.2 1,000 ML BOTTLE GT PRN ×2 (07:02→18:04)
[2018-06-21 07:41] VITALS: BP 121/60
[2018-06-21] MEDS: MULTIVIT W/MINERALS 1 TAB TABLET GT SCH (09:38)
[2018-06-21] MEDS: ASCORBIC ACID 500 MG TABLET GT SCH (09:38)
[2018-06-21] MEDS: LEVETIRACETAM SOL (5 ML) 100 MG/ML UDC GT SCH ×2 (09:38→21:25)
[2018-06-21] MEDS: ZINC SULFATE 220 MG CAPSULE GT SCH (09:38)
[2018-06-21] MEDS: DOCUSATE SODIUM LIQ 100 MG/10 ML UDC GT SCH ×2 (09:38→17:59)
[2018-06-21] MEDS: ACIDOPHILUS/BULGARICUS 1 EACH TAB.CHEW GT SCH ×2 (09:38→17:59)
[2018-06-21] MEDS: ACETAMINOPHEN 650 MG/20 ML UDC- SA PATIENTS-PAIN ONLY GT SCH ×2 (09:38→21:25)
[2018-06-21] MEDS: VALSARTAN 80 MG TABLET GT SCH (09:38)
[2018-06-21] MEDS: FERROUS SULFATE - FOR SA ONLY 330 MG/7.5 ML UDC GT SCH (09:38)
[2018-06-21] MEDS: DAKINS QUARTER STRENGTH (0.125%) 480 ML BOTTLE TOP SCH ×2 (11:10→21:26)
[2018-06-21] MEDS: Z GUARD REMEDY 2 OZ OINT TP SCH ×2 (11:10→21:26)
[2018-06-21] MEDS: HYDROGEN PEROXIDE 480 ML BOTTLE TP SCH ×2 (11:10→21:26)
[2018-06-21 12:54] VITALS: BP 132/77
[2018-06-21 18:53] VITALS: BP 108/69
--- NOTE | 2018-06-21 20:27 | NUR ---
PATIENT RECEIVED ON 28% AEROSOL T-TUBE WITH NO DISTRESS NOTED. SUCTIONED FOR MINIMAL, THIN, WHITE SECRETIONS. GIVEN IN-LINE TREATMENTS WITH NO ADVERSE REACTIONS. AMBU BAG AT BEDSIDE. Addendum: 06/21/18 at 2026 by KAISER LAW RT Amended: Links added.
[2018-06-21 20:41] VITALS: BP 122/72
[2018-06-21] MEDS: ATORVASTATIN 10 MG TABLET GT SCH (21:26)
[2018-06-21] MEDS: ENOXAPARIN SODIUM 40 MG/0.4 ML DISP.SYRIN SQ SCH (21:26)
[2018-06-21] MEDS: INSULIN GLARGINE, 100 UNIT/ML CARTRIDGE SQ SCH (21:27)
[2018-06-22] VITALS: BP 104/51
[2018-06-22] MEDS: BLOOD SUGAR DIAGNOSTIC 1 EACH STRIP IN SCH ×5 (00:09→23:39)
[2018-06-22] MEDS: INSULIN ASPART/LISPRO 100 UNIT/ML CARTRIDGE SQ PRN ×3 (00:09→23:39)
[2018-06-22] MEDS: ALBUTEROL FS 2.5 MG/0.5 ML VIAL.NEB NEB SCH ×4 (00:43→19:43)
[2018-06-22] MEDS: IPRATROPIUM NEB FS 0.5 MG/2.5 ML AMPUL.NEB NEB SCH ×4 (00:43→19:43)
[2018-06-22 06:00] VITALS: BP 109/71
[2018-06-22] MEDS: DILTIAZEM HCL 30 MG TABLET GT SCH ×5 (06:00→23:38)
[2018-06-22] MEDS: PANTOPRAZOLE 40 MG/PACK PACK GT SCH (06:26)
[2018-06-22 07:36] VITALS: BP 120/69
[2018-06-22] MEDS: FERROUS SULFATE - FOR SA ONLY 330 MG/7.5 ML UDC GT SCH (09:30)
[2018-06-22] MEDS: MULTIVIT W/MINERALS 1 TAB TABLET GT SCH (09:30)
[2018-06-22] MEDS: VALSARTAN 80 MG TABLET GT SCH (09:30)
[2018-06-22] MEDS: DOCUSATE SODIUM LIQ 100 MG/10 ML UDC GT SCH ×2 (09:30→17:00)
[2018-06-22] MEDS: LEVETIRACETAM SOL (5 ML) 100 MG/ML UDC GT SCH ×2 (09:30→20:58)
[2018-06-22] MEDS: ACIDOPHILUS/BULGARICUS 1 EACH TAB.CHEW GT SCH ×2 (09:30→17:00)
[2018-06-22] MEDS: ZINC SULFATE 220 MG CAPSULE GT SCH (09:31)
[2018-06-22] MEDS: ACETAMINOPHEN 650 MG/20 ML UDC- SA PATIENTS-PAIN ONLY GT SCH ×2 (09:31→20:58)
[2018-06-22] MEDS: ASCORBIC ACID 500 MG TABLET GT SCH (09:31)
[2018-06-22] MEDS: Z GUARD REMEDY 2 OZ OINT TP SCH ×2 (10:00→21:42)
[2018-06-22] MEDS: DAKINS QUARTER STRENGTH (0.125%) 480 ML BOTTLE TOP SCH ×2 (10:00→21:42)
[2018-06-22] MEDS: HYDROGEN PEROXIDE 480 ML BOTTLE TP SCH ×2 (10:00→21:42)
[2018-06-22 12:52] VITALS: BP 133/80
[2018-06-22] MEDS ORDERED: METOCLOPRAMIDE HCL 10 MG/10 ML UDC GT PRN (15:00)
--- NOTE | 2018-06-22 17:58 | NUR ---
INTERDISCIPLINARY TEAM CONFERENCE (IDT) was held today. Resident's daughter Kelly Wong was not able to attend today's IDT meeting. Dr. Capone and the interdisciplinary team reviewed the current plan of care in detail. Orders as well as treatment and medications were reviewed by the team. Since Cardizem is being held often, Dr. Capone changed parameter to hold if SBP less than 100 and remove previously ordered parameter for diastolic B/P. Reglan also added as PRN for nausea and vomiting if Zofran is ineffective. Notified resident's daughter Kelly of new order. Appreciated the update given to her.
[2018-06-22] MEDS: GLUCERNA 1.2 1,000 ML BOTTLE GT PRN (18:22)
[2018-06-22 18:58] VITALS: BP 112/66
[2018-06-22 20:06] VITALS: BP 128/66
[2018-06-22] MEDS: ENOXAPARIN SODIUM 40 MG/0.4 ML DISP.SYRIN SQ SCH (20:59)
[2018-06-22] MEDS: ATORVASTATIN 10 MG TABLET GT SCH (21:15)
[2018-06-22] MEDS: INSULIN GLARGINE, 100 UNIT/ML CARTRIDGE SQ SCH (21:16)
[2018-06-23 00:29] VITALS: BP 126/61
[2018-06-23] MEDS: ALBUTEROL FS 2.5 MG/0.5 ML VIAL.NEB NEB SCH ×4 (01:24→20:21)
[2018-06-23] MEDS: IPRATROPIUM NEB FS 0.5 MG/2.5 ML AMPUL.NEB NEB SCH ×4 (01:24→20:21)
[2018-06-23] MEDS: DILTIAZEM HCL 30 MG TABLET GT SCH ×3 (06:02→17:53)
[2018-06-23] MEDS: PANTOPRAZOLE 40 MG/PACK PACK GT SCH (06:02)
[2018-06-23] MEDS: INSULIN ASPART/LISPRO 100 UNIT/ML CARTRIDGE SQ PRN ×2 (06:05→17:53)
[2018-06-23] MEDS: BLOOD SUGAR DIAGNOSTIC 1 EACH STRIP IN SCH ×3 (06:05→17:54)
[2018-06-23 06:15] VITALS: BP 139/74
[2018-06-23 07:58] VITALS: BP 99/49
[2018-06-23] MEDS: ZINC SULFATE 220 MG CAPSULE GT SCH (09:00)
[2018-06-23] MEDS: FERROUS SULFATE - FOR SA ONLY 330 MG/7.5 ML UDC GT SCH (09:00)
[2018-06-23] MEDS: MULTIVIT W/MINERALS 1 TAB TABLET GT SCH (09:00)
[2018-06-23] MEDS: VALSARTAN 80 MG TABLET GT SCH (09:00)
[2018-06-23] MEDS: LEVETIRACETAM SOL (5 ML) 100 MG/ML UDC GT SCH ×2 (09:00→21:36)
[2018-06-23] MEDS: DOCUSATE SODIUM LIQ 100 MG/10 ML UDC GT SCH ×2 (09:00→17:53)
[2018-06-23] MEDS: ACIDOPHILUS/BULGARICUS 1 EACH TAB.CHEW GT SCH ×2 (09:00→17:53)
[2018-06-23] MEDS: ASCORBIC ACID 500 MG TABLET GT SCH (09:00)
[2018-06-23] MEDS: ACETAMINOPHEN 650 MG/20 ML UDC- SA PATIENTS-PAIN ONLY GT SCH ×2 (10:15→21:37)
[2018-06-23] MEDS: DAKINS QUARTER STRENGTH (0.125%) 480 ML BOTTLE TOP SCH ×2 (10:45→22:00)
[2018-06-23] MEDS: HYDROGEN PEROXIDE 480 ML BOTTLE TP SCH ×2 (10:45→22:00)
[2018-06-23] MEDS: Z GUARD REMEDY 2 OZ OINT TP SCH ×2 (10:45→22:00)
[2018-06-23 12:00] VITALS: BP 111/75
[2018-06-23 18:57] VITALS: BP 113/74
[2018-06-23 20:37] VITALS: BP 103/61
[2018-06-23] MEDS: ENOXAPARIN SODIUM 40 MG/0.4 ML DISP.SYRIN SQ SCH (21:38)
[2018-06-23] MEDS: ATORVASTATIN 10 MG TABLET GT SCH (21:38)
[2018-06-23] MEDS: INSULIN GLARGINE, 100 UNIT/ML CARTRIDGE SQ SCH (21:49)
[2018-06-24] MEDS: DILTIAZEM HCL 30 MG TABLET GT SCH ×5 (00:19→23:57)
[2018-06-24] MEDS: INSULIN ASPART/LISPRO 100 UNIT/ML CARTRIDGE SQ PRN ×5 (00:19→23:58)
[2018-06-24] MEDS: GLUCERNA 1.2 1,000 ML BOTTLE GT PRN ×2 (00:19→17:19)
[2018-06-24] MEDS: BLOOD SUGAR DIAGNOSTIC 1 EACH STRIP IN SCH ×5 (00:19→23:57)
[2018-06-24 00:20] VITALS: BP 119/68
[2018-06-24] MEDS: IPRATROPIUM NEB FS 0.5 MG/2.5 ML AMPUL.NEB NEB SCH ×4 (00:39→19:52)
[2018-06-24] MEDS: ALBUTEROL FS 2.5 MG/0.5 ML VIAL.NEB NEB SCH ×4 (00:39→19:52)
[2018-06-24] MEDS: PANTOPRAZOLE 40 MG/PACK PACK GT SCH (05:46)
[2018-06-24 06:24] VITALS: BP 100/70
[2018-06-24 07:38] VITALS: BP 110/56
[2018-06-24] MEDS: VALSARTAN 80 MG TABLET GT SCH (09:00)
[2018-06-24] MEDS: LEVETIRACETAM SOL (5 ML) 100 MG/ML UDC GT SCH ×2 (09:03→21:13)
[2018-06-24] MEDS: MULTIVIT W/MINERALS 1 TAB TABLET GT SCH (09:03)
[2018-06-24] MEDS: FERROUS SULFATE - FOR SA ONLY 330 MG/7.5 ML UDC GT SCH (09:03)
[2018-06-24] MEDS: DOCUSATE SODIUM LIQ 100 MG/10 ML UDC GT SCH ×2 (09:03→17:16)
[2018-06-24] MEDS: ACIDOPHILUS/BULGARICUS 1 EACH TAB.CHEW GT SCH ×2 (09:03→17:16)
[2018-06-24] MEDS: Z GUARD REMEDY 2 OZ OINT TP SCH ×2 (09:04→21:14)
[2018-06-24] MEDS: DAKINS QUARTER STRENGTH (0.125%) 480 ML BOTTLE TOP SCH (09:04)
[2018-06-24] MEDS: HYDROGEN PEROXIDE 480 ML BOTTLE TP SCH ×2 (09:04→21:14)
[2018-06-24] MEDS: ASCORBIC ACID 500 MG TABLET GT SCH (09:04)
[2018-06-24] MEDS: ACETAMINOPHEN 650 MG/20 ML UDC- SA PATIENTS-PAIN ONLY GT SCH ×2 (09:04→21:14)
[2018-06-24] MEDS: ZINC SULFATE 220 MG CAPSULE GT SCH (09:04)
[2018-06-24 12:24] VITALS: BP 128/84
[2018-06-24 18:22] VITALS: BP 127/82
[2018-06-24 20:07] VITALS: BP 128/68
--- NOTE | 2018-06-24 21:12 | NUR ---
RT NOTE PATIENT WAS RECEIVED ON 28% COOL AEROSOL. HHN INLINE TREATMENT WAS GIVEN ,NO ADVERSE REACTION NOTED. PRN SUCTION WAS DONE. TRACH TUBE PATENT AND SECURED. AMBUBAG AND SPARE TRACH AT BED SIDE. NO RESPIRATORY DISTRESS NOTED AT THIS TIME.WILL CONTINUE TO MONITOR PATIENT. Addendum: 06/24/18 at 2112 by SHYANN BARRETT RT Amended: Links added.
[2018-06-24] MEDS: ENOXAPARIN SODIUM 40 MG/0.4 ML DISP.SYRIN SQ SCH (21:14)
[2018-06-24] MEDS: ATORVASTATIN 10 MG TABLET GT SCH (21:14)
[2018-06-24] MEDS: INSULIN GLARGINE, 100 UNIT/ML CARTRIDGE SQ SCH (21:15)
[2018-06-25 00:19] VITALS: BP 119/79
[2018-06-25] MEDS: ALBUTEROL FS 2.5 MG/0.5 ML VIAL.NEB NEB SCH ×4 (01:37→20:21)
[2018-06-25] MEDS: IPRATROPIUM NEB FS 0.5 MG/2.5 ML AMPUL.NEB NEB SCH ×4 (01:37→20:21)
[2018-06-25] MEDS: PANTOPRAZOLE 40 MG/PACK PACK GT SCH (05:47)
[2018-06-25] MEDS: DILTIAZEM HCL 30 MG TABLET GT SCH ×4 (05:47→23:46)
[2018-06-25] MEDS: BLOOD SUGAR DIAGNOSTIC 1 EACH STRIP IN SCH ×4 (06:12→23:46)
[2018-06-25 06:15] VITALS: BP 114/76
[2018-06-25 08:08] VITALS: BP 136/55
[2018-06-25] MEDS: HYDROGEN PEROXIDE 480 ML BOTTLE TP SCH ×2 (09:00→21:42)
[2018-06-25] MEDS: Z GUARD REMEDY 2 OZ OINT TP SCH ×2 (09:00→21:42)
[2018-06-25] MEDS: DOCUSATE SODIUM LIQ 100 MG/10 ML UDC GT SCH ×2 (09:46→17:25)
[2018-06-25] MEDS: LEVETIRACETAM SOL (5 ML) 100 MG/ML UDC GT SCH ×2 (09:47→21:39)
[2018-06-25] MEDS: VALSARTAN 80 MG TABLET GT SCH (09:47)
[2018-06-25] MEDS: FERROUS SULFATE - FOR SA ONLY 330 MG/7.5 ML UDC GT SCH (09:47)
[2018-06-25] MEDS: MULTIVIT W/MINERALS 1 TAB TABLET GT SCH (09:48)
[2018-06-25] MEDS: ACIDOPHILUS/BULGARICUS 1 EACH TAB.CHEW GT SCH ×2 (09:48→17:25)
[2018-06-25] MEDS: ACETAMINOPHEN 650 MG/20 ML UDC- SA PATIENTS-PAIN ONLY GT SCH ×2 (09:49→21:40)
[2018-06-25] MEDS: ASCORBIC ACID 500 MG TABLET GT SCH (09:49)
[2018-06-25] MEDS: ZINC SULFATE 220 MG CAPSULE GT SCH (09:49)
[2018-06-25 12:00] VITALS: BP 123/77
[2018-06-25] MEDS: INSULIN ASPART/LISPRO 100 UNIT/ML CARTRIDGE SQ PRN ×3 (12:55→23:47)
[2018-06-25] MEDS: GLUCERNA 1.2 1,000 ML BOTTLE GT PRN (13:30)
[2018-06-25 18:00] VITALS: BP 113/63
[2018-06-25 19:48] VITALS: BP 129/70
[2018-06-25] MEDS: ENOXAPARIN SODIUM 40 MG/0.4 ML DISP.SYRIN SQ SCH (21:40)
[2018-06-25] MEDS: ATORVASTATIN 10 MG TABLET GT SCH (21:42)
[2018-06-25] MEDS: INSULIN GLARGINE, 100 UNIT/ML CARTRIDGE SQ SCH (21:43)
[2018-06-26] MEDS: ALBUTEROL FS 2.5 MG/0.5 ML VIAL.NEB NEB SCH ×4 (01:46→19:57)
[2018-06-26] MEDS: IPRATROPIUM NEB FS 0.5 MG/2.5 ML AMPUL.NEB NEB SCH ×4 (01:46→19:57)
[2018-06-26 03:12] VITALS: BP 119/67
[2018-06-26] MEDS: DILTIAZEM HCL 30 MG TABLET GT SCH ×4 (06:24→23:53)
[2018-06-26] MEDS: BLOOD SUGAR DIAGNOSTIC 1 EACH STRIP IN SCH ×4 (06:24→23:53)
[2018-06-26] MEDS: PANTOPRAZOLE 40 MG/PACK PACK GT SCH (06:24)
[2018-06-26] MEDS: INSULIN ASPART/LISPRO 100 UNIT/ML CARTRIDGE SQ PRN ×3 (06:24→23:54)
[2018-06-26 06:30] VITALS: BP_SYST 78
[2018-06-26 07:53] VITALS: BP 99/52
[2018-06-26] MEDS: ACIDOPHILUS/BULGARICUS 1 EACH TAB.CHEW GT SCH ×2 (09:00→17:55)
[2018-06-26] MEDS: LEVETIRACETAM SOL (5 ML) 100 MG/ML UDC GT SCH ×2 (09:00→21:50)
[2018-06-26] MEDS: ASCORBIC ACID 500 MG TABLET GT SCH (09:00)
[2018-06-26] MEDS: MULTIVIT W/MINERALS 1 TAB TABLET GT SCH (09:00)
[2018-06-26] MEDS: ZINC SULFATE 220 MG CAPSULE GT SCH (09:00)
[2018-06-26] MEDS: FERROUS SULFATE - FOR SA ONLY 330 MG/7.5 ML UDC GT SCH (09:00)
[2018-06-26] MEDS: VALSARTAN 80 MG TABLET GT SCH (09:00)
[2018-06-26] MEDS: DOCUSATE SODIUM LIQ 100 MG/10 ML UDC GT SCH ×2 (09:00→17:55)
[2018-06-26] MEDS: ACETAMINOPHEN 650 MG/20 ML UDC- SA PATIENTS-PAIN ONLY GT SCH ×2 (10:00→21:50)
[2018-06-26] MEDS: HYDROGEN PEROXIDE 480 ML BOTTLE TP SCH ×2 (10:30→21:51)
[2018-06-26] MEDS: Z GUARD REMEDY 2 OZ OINT TP SCH ×2 (10:30→21:51)
[2018-06-26 12:00] VITALS: BP 119/72
[2018-06-26 18:40] VITALS: BP 98/58
[2018-06-26 20:51] VITALS: BP 112/69
[2018-06-26] MEDS: INSULIN GLARGINE, 100 UNIT/ML CARTRIDGE SQ SCH (21:51)
[2018-06-26] MEDS: ATORVASTATIN 10 MG TABLET GT SCH (21:51)
[2018-06-26] MEDS: ENOXAPARIN SODIUM 40 MG/0.4 ML DISP.SYRIN SQ SCH (21:51)
[2018-06-27] MEDS: ALBUTEROL FS 2.5 MG/0.5 ML VIAL.NEB NEB SCH ×4 (00:54→19:38)
[2018-06-27] MEDS: IPRATROPIUM NEB FS 0.5 MG/2.5 ML AMPUL.NEB NEB SCH ×4 (00:54→19:38)
[2018-06-27 03:42] VITALS: BP 104/62
[2018-06-27] MEDS: DILTIAZEM HCL 30 MG TABLET GT SCH ×4 (05:57→23:58)
[2018-06-27] MEDS: BLOOD SUGAR DIAGNOSTIC 1 EACH STRIP IN SCH ×4 (05:57→23:58)
[2018-06-27] MEDS: PANTOPRAZOLE 40 MG/PACK PACK GT SCH (05:57)
[2018-06-27 06:15] VITALS: BP 110/66
[2018-06-27 07:47] VITALS: BP 127/86
[2018-06-27] MEDS: LEVETIRACETAM SOL (5 ML) 100 MG/ML UDC GT SCH ×2 (09:00→21:33)
[2018-06-27] MEDS: ZINC SULFATE 220 MG CAPSULE GT SCH (09:00)
[2018-06-27] MEDS: MULTIVIT W/MINERALS 1 TAB TABLET GT SCH (09:00)
[2018-06-27] MEDS: ASCORBIC ACID 500 MG TABLET GT SCH (09:00)
[2018-06-27] MEDS: VALSARTAN 80 MG TABLET GT SCH (09:00)
[2018-06-27] MEDS: ACIDOPHILUS/BULGARICUS 1 EACH TAB.CHEW GT SCH ×2 (09:00→17:30)
[2018-06-27] MEDS: DOCUSATE SODIUM LIQ 100 MG/10 ML UDC GT SCH ×2 (09:00→17:30)
[2018-06-27] MEDS: FERROUS SULFATE - FOR SA ONLY 330 MG/7.5 ML UDC GT SCH (09:00)
[2018-06-27] MEDS: ACETAMINOPHEN 650 MG/20 ML UDC- SA PATIENTS-PAIN ONLY GT SCH ×2 (09:00→21:33)
[2018-06-27] MEDS: Z GUARD REMEDY 2 OZ OINT TP SCH ×2 (10:00→21:34)
[2018-06-27] MEDS: HYDROGEN PEROXIDE 480 ML BOTTLE TP SCH ×2 (10:00→21:34)
[2018-06-27 12:00] VITALS: BP 116/79
[2018-06-27] MEDS: INSULIN ASPART/LISPRO 100 UNIT/ML CARTRIDGE SQ PRN ×3 (12:58→23:59)
[2018-06-27] MEDS: GLUCERNA 1.2 1,000 ML BOTTLE GT PRN (17:35)
[2018-06-27 18:00] VITALS: BP 119/79
[2018-06-27] MEDS: ENOXAPARIN SODIUM 40 MG/0.4 ML DISP.SYRIN SQ SCH (21:34)
[2018-06-27] MEDS: Z GUARD REMEDY 4 OZ OINT TP SCH (21:34)
[2018-06-27] MEDS: ATORVASTATIN 10 MG TABLET GT SCH (21:34)
[2018-06-27 21:38] VITALS: BP 109/73
[2018-06-27] MEDS: INSULIN GLARGINE, 100 UNIT/ML CARTRIDGE SQ SCH (21:38)
[2018-06-28 00:20] VITALS: BP 98/72
[2018-06-28] MEDS: IPRATROPIUM NEB FS 0.5 MG/2.5 ML AMPUL.NEB NEB SCH ×4 (00:53→20:03)
[2018-06-28] MEDS: ALBUTEROL FS 2.5 MG/0.5 ML VIAL.NEB NEB SCH ×4 (00:53→20:03)
[2018-06-28] MEDS: DILTIAZEM HCL 30 MG TABLET GT SCH ×4 (05:51→23:26)
[2018-06-28] MEDS: BLOOD SUGAR DIAGNOSTIC 1 EACH STRIP IN SCH ×4 (05:51→23:26)
[2018-06-28] MEDS: PANTOPRAZOLE 40 MG/PACK PACK GT SCH (05:51)
[2018-06-28] MEDS: INSULIN ASPART/LISPRO 100 UNIT/ML CARTRIDGE SQ PRN ×4 (05:52→23:26)
[2018-06-28 06:12] VITALS: BP 121/77
[2018-06-28] MEDS: GLUCERNA 1.2 1,000 ML BOTTLE GT PRN (06:15)
[2018-06-28 07:44] VITALS: BP 109/65
[2018-06-28] MEDS: VALSARTAN 80 MG TABLET GT SCH (09:00)
[2018-06-28] MEDS: ACIDOPHILUS/BULGARICUS 1 EACH TAB.CHEW GT SCH ×2 (09:05→17:27)
[2018-06-28] MEDS: MULTIVIT W/MINERALS 1 TAB TABLET GT SCH (09:05)
[2018-06-28] MEDS: FERROUS SULFATE - FOR SA ONLY 330 MG/7.5 ML UDC GT SCH (09:05)
[2018-06-28] MEDS: DOCUSATE SODIUM LIQ 100 MG/10 ML UDC GT SCH ×2 (09:05→17:27)
[2018-06-28] MEDS: LEVETIRACETAM SOL (5 ML) 100 MG/ML UDC GT SCH ×2 (09:05→20:53)
[2018-06-28] MEDS: ASCORBIC ACID 500 MG TABLET GT SCH (09:06)
[2018-06-28] MEDS: ACETAMINOPHEN 650 MG/20 ML UDC- SA PATIENTS-PAIN ONLY GT SCH ×2 (09:06→20:53)
[2018-06-28] MEDS: ZINC SULFATE 220 MG CAPSULE GT SCH (09:06)
[2018-06-28] MEDS: HYDROGEN PEROXIDE 480 ML BOTTLE TP SCH ×2 (09:40→20:54)
[2018-06-28] MEDS: Z GUARD REMEDY 4 OZ OINT TP SCH ×2 (09:40→20:54)
[2018-06-28] MEDS: Z GUARD REMEDY 2 OZ OINT TP SCH ×2 (09:40→20:54)
[2018-06-28 12:00] VITALS: BP 113/68
[2018-06-28 18:08] VITALS: BP 133/50
[2018-06-28 20:47] VITALS: BP 112/70
[2018-06-28] MEDS: DAKINS QUARTER STRENGTH (0.125%) 480 ML BOTTLE TOP SCH (20:54)
[2018-06-28] MEDS: ENOXAPARIN SODIUM 40 MG/0.4 ML DISP.SYRIN SQ SCH (20:54)
[2018-06-28] MEDS: ATORVASTATIN 10 MG TABLET GT SCH (21:09)
[2018-06-28] MEDS: INSULIN GLARGINE, 100 UNIT/ML CARTRIDGE SQ SCH (21:09)
[2018-06-29] VITALS (7 sets, daily range): BP systolic 99–165; BP diastolic 36–90
[2018-06-29] MEDS: ALBUTEROL FS 2.5 MG/0.5 ML VIAL.NEB NEB SCH ×4 (01:33→19:56)
[2018-06-29] MEDS: IPRATROPIUM NEB FS 0.5 MG/2.5 ML AMPUL.NEB NEB SCH ×4 (01:33→19:56)
[2018-06-29] MEDS: GLUCERNA 1.2 1,000 ML BOTTLE GT PRN (02:23)
[2018-06-29] MEDS: BLOOD SUGAR DIAGNOSTIC 1 EACH STRIP IN SCH ×3 (05:36→17:49)
[2018-06-29] MEDS: DILTIAZEM HCL 30 MG TABLET GT SCH ×3 (05:36→17:49)
[2018-06-29] MEDS: INSULIN ASPART/LISPRO 100 UNIT/ML CARTRIDGE SQ PRN ×3 (05:36→17:50)
[2018-06-29] MEDS: PANTOPRAZOLE 40 MG/PACK PACK GT SCH (05:36)
--- NOTE | 2018-06-29 07:45 | NUR ---
PT RECEIVED ON COOL AEROSOL 5L 28%. NO RESP DISTRESS OR SOB NOTED AT THIS TIME. PT SX'D. BREATHING TX GIVEN, NO ADVERSE REACTIONS NOTED. SPARE TRACH AND AMBU BAG ARE AT BEDSIDE. WILL CONT TO MONITOR PT. VENT IS PLUGGED INTO RED OUTLET AND ALARMS ARE ON AND AUDIBLE. Addendum: 06/29/18 at 0746 by DHRUV CHARLES RT Amended: Links added.
[2018-06-29] MEDS: VALSARTAN 80 MG TABLET GT SCH (09:00)
[2018-06-29] MEDS: ACIDOPHILUS/BULGARICUS 1 EACH TAB.CHEW GT SCH ×2 (09:00→17:39)
[2018-06-29] MEDS: ASCORBIC ACID 500 MG TABLET GT SCH (09:00)
[2018-06-29] MEDS: ACETAMINOPHEN 650 MG/20 ML UDC- SA PATIENTS-PAIN ONLY GT SCH ×2 (09:00→20:48)
[2018-06-29] MEDS: DOCUSATE SODIUM LIQ 100 MG/10 ML UDC GT SCH ×2 (09:00→17:38)
[2018-06-29] MEDS: FERROUS SULFATE - FOR SA ONLY 330 MG/7.5 ML UDC GT SCH (09:00)
[2018-06-29] MEDS: Z GUARD REMEDY 2 OZ OINT TP SCH ×2 (09:00→20:49)
[2018-06-29] MEDS: Z GUARD REMEDY 4 OZ OINT TP SCH ×2 (09:00→20:49)
[2018-06-29] MEDS: HYDROGEN PEROXIDE 480 ML BOTTLE TP SCH ×2 (09:00→20:49)
[2018-06-29] MEDS: DAKINS QUARTER STRENGTH (0.125%) 480 ML BOTTLE TOP SCH ×2 (09:00→20:49)
[2018-06-29] MEDS: MULTIVIT W/MINERALS 1 TAB TABLET GT SCH (09:00)
[2018-06-29] MEDS: ZINC SULFATE 220 MG CAPSULE GT SCH (09:00)
[2018-06-29] MEDS: LEVETIRACETAM SOL (5 ML) 100 MG/ML UDC GT SCH ×2 (09:00→20:48)
[2018-06-29 13:11] LABS: BASOPHILS % (AUTO) 0.8 % (0.0-2.0); HEMATOCRIT 34 % (33-45); HEMOGLOBIN 11.3 g/dL (11.5-14.8); LYMPHOCYTES # (AUTO) 2.1 /CMM (0.8-4.8); LYMPHOCYTES % (AUTO) 47.6 % (20.0-44.0); MEAN CORPUSCULAR HGB CONC 33 g/dl (31.0-36.0); MEAN CORPUSCULAR VOLUME 94 fL (82-100); MONOCYTES # (AUTO) 0.4 /CMM (0.1-1.30); MONOCYTES % (AUTO) 8.6 % (2.0-12.0); NEUTROPHILS # (AUTO) 1.7 /CMM (1.8-8.9); PLATELET COUNT (AUTO) 305 /CMM (150-450); RED BLOOD CELL COUNT(AUTO) 3.63 MIL/uL (4.0-5.2); WHITE BLOOD COUNT (AUTO) 4.4 K/uL (4.3-11.0)
[2018-06-29 14:27] LABS: CALCIUM, SERUM 9.2 mg/dL (8.5-10.1); CREATININE 0.8 mg/dL (0.6-1.3); MAGNESIUM 2.1 mg/dL (1.8-2.4); PHOSPHORUS 3.7 mg/dL (2.5-4.9); POTASSIUM 4.9 mmol/L (3.5-5.1)
[2018-06-29] MEDS: ENOXAPARIN SODIUM 40 MG/0.4 ML DISP.SYRIN SQ SCH (20:48)
[2018-06-29] MEDS: ATORVASTATIN 10 MG TABLET GT SCH (22:31)
[2018-06-29] MEDS: INSULIN GLARGINE, 100 UNIT/ML CARTRIDGE SQ SCH (22:32)
[2018-06-30] MEDS: GLUCERNA 1.2 1,000 ML BOTTLE GT PRN ×2 (00:28→13:00)
[2018-06-30] MEDS: INSULIN ASPART/LISPRO 100 UNIT/ML CARTRIDGE SQ PRN ×5 (00:28→23:22)
[2018-06-30] MEDS: DILTIAZEM HCL 30 MG TABLET GT SCH ×5 (00:28→23:21)
[2018-06-30] MEDS: BLOOD SUGAR DIAGNOSTIC 1 EACH STRIP IN SCH ×5 (00:28→23:20)
[2018-06-30] MEDS: IPRATROPIUM NEB FS 0.5 MG/2.5 ML AMPUL.NEB NEB SCH ×4 (02:24→19:46)
[2018-06-30] MEDS: ALBUTEROL FS 2.5 MG/0.5 ML VIAL.NEB NEB SCH ×4 (02:24→19:46)
[2018-06-30 03:29] VITALS: BP 102/57
[2018-06-30] MEDS: PANTOPRAZOLE 40 MG/PACK PACK GT SCH (05:25)
[2018-06-30 06:22] VITALS: BP 117/70
[2018-06-30 08:15] VITALS: BP 115/64
[2018-06-30] MEDS: DAKINS QUARTER STRENGTH (0.125%) 480 ML BOTTLE TOP SCH ×2 (09:00→20:56)
[2018-06-30] MEDS: BACI/NEOM/POLY B OINT PKT 1 UDPKT PACKET TP SCH ×2 (09:00→20:56)
[2018-06-30] MEDS: HYDROGEN PEROXIDE 480 ML BOTTLE TP SCH ×2 (09:00→20:56)
[2018-06-30] MEDS: Z GUARD REMEDY 4 OZ OINT TP SCH ×2 (09:00→20:56)
[2018-06-30] MEDS: Z GUARD REMEDY 2 OZ OINT TP SCH ×2 (09:00→20:56)
[2018-06-30] MEDS: FERROUS SULFATE - FOR SA ONLY 330 MG/7.5 ML UDC GT SCH (09:27)
[2018-06-30] MEDS: DOCUSATE SODIUM LIQ 100 MG/10 ML UDC GT SCH ×2 (09:27→17:48)
[2018-06-30] MEDS: ACIDOPHILUS/BULGARICUS 1 EACH TAB.CHEW GT SCH ×2 (09:28→17:48)
[2018-06-30] MEDS: LEVETIRACETAM SOL (5 ML) 100 MG/ML UDC GT SCH ×2 (09:28→20:54)
[2018-06-30] MEDS: ASCORBIC ACID 500 MG TABLET GT SCH (09:29)
[2018-06-30] MEDS: ZINC SULFATE 220 MG CAPSULE GT SCH (09:29)
[2018-06-30] MEDS: ACETAMINOPHEN 650 MG/20 ML UDC- SA PATIENTS-PAIN ONLY GT SCH ×2 (09:29→20:55)
[2018-06-30] MEDS: MULTIVIT W/MINERALS 1 TAB TABLET GT SCH (09:52)
[2018-06-30] MEDS: VALSARTAN 80 MG TABLET GT SCH (09:53)
[2018-06-30 12:05] VITALS: BP 131/70
[2018-06-30 18:10] VITALS: BP 106/65
[2018-06-30 19:53] VITALS: BP 126/69
[2018-06-30] MEDS: ENOXAPARIN SODIUM 40 MG/0.4 ML DISP.SYRIN SQ SCH (20:56)
[2018-06-30] MEDS: ATORVASTATIN 10 MG TABLET GT SCH (21:09)
[2018-06-30] MEDS: INSULIN GLARGINE, 100 UNIT/ML CARTRIDGE SQ SCH (21:10)
[2018-07-01 00:37] VITALS: BP 102/58
[2018-07-01] MEDS: IPRATROPIUM NEB FS 0.5 MG/2.5 ML AMPUL.NEB NEB SCH ×4 (01:39→19:48)
[2018-07-01] MEDS: ALBUTEROL FS 2.5 MG/0.5 ML VIAL.NEB NEB SCH ×4 (01:39→19:48)
[2018-07-01] MEDS: PANTOPRAZOLE 40 MG/PACK PACK GT SCH (05:26)
[2018-07-01] MEDS: MAGNESIUM HYDROXIDE 30 ML UDC GT PRN (05:26)
[2018-07-01] MEDS: BLOOD SUGAR DIAGNOSTIC 1 EACH STRIP IN SCH ×3 (05:26→18:16)
[2018-07-01] MEDS: INSULIN ASPART/LISPRO 100 UNIT/ML CARTRIDGE SQ PRN ×3 (05:26→18:16)
[2018-07-01] MEDS: DILTIAZEM HCL 30 MG TABLET GT SCH ×3 (05:26→17:12)
[2018-07-01 06:15] VITALS: BP 127/79
[2018-07-01] MEDS: HYDROGEN PEROXIDE 480 ML BOTTLE TP SCH ×2 (09:00→21:37)
[2018-07-01] MEDS: Z GUARD REMEDY 2 OZ OINT TP SCH ×2 (09:00→21:37)
[2018-07-01] MEDS: Z GUARD REMEDY 4 OZ OINT TP SCH ×2 (09:00→21:37)
[2018-07-01] MEDS: BACI/NEOM/POLY B OINT PKT 1 UDPKT PACKET TP SCH ×2 (09:00→21:37)
[2018-07-01] MEDS: DAKINS QUARTER STRENGTH (0.125%) 480 ML BOTTLE TOP SCH ×2 (09:00→21:37)
[2018-07-01] MEDS: DOCUSATE SODIUM LIQ 100 MG/10 ML UDC GT SCH ×2 (09:10→17:12)
[2018-07-01] MEDS: VALSARTAN 80 MG TABLET GT SCH (09:11)
[2018-07-01] MEDS: FERROUS SULFATE - FOR SA ONLY 330 MG/7.5 ML UDC GT SCH (09:11)
[2018-07-01] MEDS: ACIDOPHILUS/BULGARICUS 1 EACH TAB.CHEW GT SCH ×2 (09:12→17:12)
[2018-07-01] MEDS: LEVETIRACETAM SOL (5 ML) 100 MG/ML UDC GT SCH ×2 (09:12→21:36)
[2018-07-01] MEDS: ACETAMINOPHEN 650 MG/20 ML UDC- SA PATIENTS-PAIN ONLY GT SCH ×2 (09:13→21:36)
[2018-07-01] MEDS: ASCORBIC ACID 500 MG TABLET GT SCH (09:13)
[2018-07-01] MEDS: MULTIVIT W/MINERALS 1 TAB TABLET GT SCH (09:13)
[2018-07-01] MEDS: ZINC SULFATE 220 MG CAPSULE GT SCH (09:13)
[2018-07-01] MEDS: GLUCERNA 1.2 1,000 ML BOTTLE GT PRN ×2 (09:20→21:30)
[2018-07-01 12:05] VITALS: BP 117/58
[2018-07-01 18:05] VITALS: BP 133/81
[2018-07-01 20:06] VITALS: BP 122/61
[2018-07-01] MEDS: ENOXAPARIN SODIUM 40 MG/0.4 ML DISP.SYRIN SQ SCH (21:36)
[2018-07-01] MEDS: ATORVASTATIN 10 MG TABLET GT SCH (21:37)
[2018-07-01] MEDS: INSULIN GLARGINE, 100 UNIT/ML CARTRIDGE SQ SCH (21:38)
[2018-07-02] VITALS: BP 117/67
[2018-07-02] MEDS: BLOOD SUGAR DIAGNOSTIC 1 EACH STRIP IN SCH ×5 (00:12→23:09)
[2018-07-02] MEDS: DILTIAZEM HCL 30 MG TABLET GT SCH ×5 (00:12→23:09)
[2018-07-02] MEDS: INSULIN ASPART/LISPRO 100 UNIT/ML CARTRIDGE SQ PRN ×5 (00:13→23:11)
[2018-07-02] MEDS: IPRATROPIUM NEB FS 0.5 MG/2.5 ML AMPUL.NEB NEB SCH ×4 (01:45→19:33)
[2018-07-02] MEDS: ALBUTEROL FS 2.5 MG/0.5 ML VIAL.NEB NEB SCH ×4 (01:46→19:33)
[2018-07-02] MEDS: PANTOPRAZOLE 40 MG/PACK PACK GT SCH (05:22)
[2018-07-02 06:00] VITALS: BP 129/78
[2018-07-02 07:49] VITALS: BP 112/64
[2018-07-02] MEDS: LEVETIRACETAM SOL (5 ML) 100 MG/ML UDC GT SCH ×2 (09:07→20:50)
[2018-07-02] MEDS: VALSARTAN 80 MG TABLET GT SCH (09:07)
[2018-07-02] MEDS: DOCUSATE SODIUM LIQ 100 MG/10 ML UDC GT SCH ×2 (09:07→17:38)
[2018-07-02] MEDS: FERROUS SULFATE - FOR SA ONLY 330 MG/7.5 ML UDC GT SCH (09:07)
[2018-07-02] MEDS: ACIDOPHILUS/BULGARICUS 1 EACH TAB.CHEW GT SCH ×2 (09:08→17:39)
[2018-07-02] MEDS: ZINC SULFATE 220 MG CAPSULE GT SCH (09:08)
[2018-07-02] MEDS: ASCORBIC ACID 500 MG TABLET GT SCH (09:08)
[2018-07-02] MEDS: MULTIVIT W/MINERALS 1 TAB TABLET GT SCH (09:08)
[2018-07-02] MEDS: ACETAMINOPHEN 650 MG/20 ML UDC- SA PATIENTS-PAIN ONLY GT SCH ×2 (09:08→20:51)
[2018-07-02] MEDS: BACI/NEOM/POLY B OINT PKT 1 UDPKT PACKET TP SCH ×2 (10:08→20:51)
[2018-07-02] MEDS: Z GUARD REMEDY 4 OZ OINT TP SCH ×2 (10:08→21:36)
[2018-07-02] MEDS: HYDROGEN PEROXIDE 480 ML BOTTLE TP SCH ×2 (10:08→20:51)
[2018-07-02] MEDS: Z GUARD REMEDY 2 OZ OINT TP SCH ×2 (10:08→21:36)
[2018-07-02] MEDS: DAKINS QUARTER STRENGTH (0.125%) 480 ML BOTTLE TOP SCH (10:08)
[2018-07-02 12:00] VITALS: BP 140/74
[2018-07-02] MEDS: GLUCERNA 1.2 1,000 ML BOTTLE GT PRN (17:41)
[2018-07-02 18:00] VITALS: BP 130/64
[2018-07-02 20:12] VITALS: BP 121/57
[2018-07-02] MEDS: ENOXAPARIN SODIUM 40 MG/0.4 ML DISP.SYRIN SQ SCH (20:51)
[2018-07-02] MEDS: THERAHONEY GEL 1.5 OZ TUBE TP SCH (21:36)
[2018-07-02] MEDS: INSULIN GLARGINE, 100 UNIT/ML CARTRIDGE SQ SCH (21:37)
[2018-07-02] MEDS: ATORVASTATIN 10 MG TABLET GT SCH (21:37)
[2018-07-03 00:53] VITALS: BP 120/66
[2018-07-03] MEDS: ALBUTEROL FS 2.5 MG/0.5 ML VIAL.NEB NEB SCH ×4 (02:08→19:42)
[2018-07-03] MEDS: IPRATROPIUM NEB FS 0.5 MG/2.5 ML AMPUL.NEB NEB SCH ×4 (02:08→19:42)
[2018-07-03] MEDS: DILTIAZEM HCL 30 MG TABLET GT SCH ×4 (06:04→23:16)
[2018-07-03] MEDS: PANTOPRAZOLE 40 MG/PACK PACK GT SCH (06:04)
[2018-07-03] MEDS: BLOOD SUGAR DIAGNOSTIC 1 EACH STRIP IN SCH ×4 (06:04→23:16)
[2018-07-03] MEDS: INSULIN ASPART/LISPRO 100 UNIT/ML CARTRIDGE SQ PRN ×3 (06:05→23:16)
[2018-07-03 06:25] VITALS: BP 124/70
[2018-07-03 07:34] VITALS: BP 105/61
[2018-07-03] MEDS: FERROUS SULFATE - FOR SA ONLY 330 MG/7.5 ML UDC GT SCH (09:00)
[2018-07-03] MEDS: ACETAMINOPHEN 650 MG/20 ML UDC- SA PATIENTS-PAIN ONLY GT SCH ×2 (09:00→21:16)
[2018-07-03] MEDS: BACI/NEOM/POLY B OINT PKT 1 UDPKT PACKET TP SCH ×2 (09:00→21:17)
[2018-07-03] MEDS: MULTIVIT W/MINERALS 1 TAB TABLET GT SCH (09:00)
[2018-07-03] MEDS: ASCORBIC ACID 500 MG TABLET GT SCH (09:00)
[2018-07-03] MEDS: ZINC SULFATE 220 MG CAPSULE GT SCH (09:00)
[2018-07-03] MEDS: DOCUSATE SODIUM LIQ 100 MG/10 ML UDC GT SCH ×2 (09:00→17:17)
[2018-07-03] MEDS: ACIDOPHILUS/BULGARICUS 1 EACH TAB.CHEW GT SCH ×2 (09:00→17:17)
[2018-07-03] MEDS: Z GUARD REMEDY 4 OZ OINT TP SCH ×2 (09:00→21:17)
[2018-07-03] MEDS: LEVETIRACETAM SOL (5 ML) 100 MG/ML UDC GT SCH ×2 (09:00→21:16)
[2018-07-03] MEDS: THERAHONEY GEL 1.5 OZ TUBE TP SCH ×2 (09:00→21:49)
[2018-07-03] MEDS: VALSARTAN 80 MG TABLET GT SCH (09:00)
[2018-07-03] MEDS: Z GUARD REMEDY 2 OZ OINT TP SCH ×2 (09:00→21:17)
[2018-07-03] MEDS: HYDROGEN PEROXIDE 480 ML BOTTLE TP SCH ×2 (09:00→21:17)
[2018-07-03 16:12] VITALS: BP 127/72
[2018-07-03 18:47] VITALS: BP 124/72
[2018-07-03 19:47] VITALS: BP 115/50
[2018-07-03] MEDS: ENOXAPARIN SODIUM 40 MG/0.4 ML DISP.SYRIN SQ SCH (21:17)
[2018-07-03] MEDS: ATORVASTATIN 10 MG TABLET GT SCH (21:18)
[2018-07-03] MEDS: INSULIN GLARGINE, 100 UNIT/ML CARTRIDGE SQ SCH (21:22)
[2018-07-04 00:40] VITALS: BP 118/68
[2018-07-04] MEDS: IPRATROPIUM NEB FS 0.5 MG/2.5 ML AMPUL.NEB NEB SCH ×4 (01:36→19:57)
[2018-07-04] MEDS: ALBUTEROL FS 2.5 MG/0.5 ML VIAL.NEB NEB SCH ×4 (01:36→19:57)
[2018-07-04] MEDS: PANTOPRAZOLE 40 MG/PACK PACK GT SCH (06:00)
[2018-07-04] MEDS: DILTIAZEM HCL 30 MG TABLET GT SCH ×4 (06:00→23:24)
[2018-07-04] MEDS: BLOOD SUGAR DIAGNOSTIC 1 EACH STRIP IN SCH ×4 (06:23→23:24)
[2018-07-04 06:38] VITALS: BP 122/66
[2018-07-04 07:58] VITALS: BP 90/58
[2018-07-04] MEDS: THERAHONEY GEL 1.5 OZ TUBE TP SCH ×2 (09:00→21:35)
[2018-07-04] MEDS: VALSARTAN 80 MG TABLET GT SCH (09:00)
[2018-07-04] MEDS: Z GUARD REMEDY 4 OZ OINT TP SCH ×2 (09:00→21:35)
[2018-07-04] MEDS: Z GUARD REMEDY 2 OZ OINT TP SCH ×2 (09:00→21:35)
[2018-07-04] MEDS: BACI/NEOM/POLY B OINT PKT 1 UDPKT PACKET TP SCH ×2 (09:00→21:35)
[2018-07-04] MEDS: DOCUSATE SODIUM LIQ 100 MG/10 ML UDC GT SCH ×2 (09:47→17:57)
[2018-07-04] MEDS: FERROUS SULFATE - FOR SA ONLY 330 MG/7.5 ML UDC GT SCH (09:48)
[2018-07-04] MEDS: LEVETIRACETAM SOL (5 ML) 100 MG/ML UDC GT SCH ×2 (09:48→21:04)
[2018-07-04] MEDS: ACIDOPHILUS/BULGARICUS 1 EACH TAB.CHEW GT SCH ×2 (09:48→17:57)
[2018-07-04] MEDS: ACETAMINOPHEN 650 MG/20 ML UDC- SA PATIENTS-PAIN ONLY GT SCH ×2 (09:49→21:05)
[2018-07-04] MEDS: ZINC SULFATE 220 MG CAPSULE GT SCH (09:49)
[2018-07-04] MEDS: ASCORBIC ACID 500 MG TABLET GT SCH (09:49)
[2018-07-04] MEDS: MULTIVIT W/MINERALS 1 TAB TABLET GT SCH (09:52)
[2018-07-04] MEDS: HYDROGEN PEROXIDE 480 ML BOTTLE TP SCH ×2 (09:52→21:35)
[2018-07-04] MEDS: INSULIN ASPART/LISPRO 100 UNIT/ML CARTRIDGE SQ PRN ×2 (12:43→23:25)
[2018-07-04] MEDS: GLUCERNA 1.2 1,000 ML BOTTLE GT PRN (18:04)
[2018-07-04 18:53] VITALS: BP_SYST 137; BP_SYST 98; BP_DIAS 59; BP_DIAS 64
[2018-07-04 19:55] VITALS: BP 110/80
[2018-07-04] MEDS: ENOXAPARIN SODIUM 40 MG/0.4 ML DISP.SYRIN SQ SCH (21:05)
[2018-07-04] MEDS: ATORVASTATIN 10 MG TABLET GT SCH (21:05)
[2018-07-04] MEDS: INSULIN GLARGINE, 100 UNIT/ML CARTRIDGE SQ SCH (21:34)
[2018-07-05 00:47] VITALS: BP 116/60
[2018-07-05] MEDS: IPRATROPIUM NEB FS 0.5 MG/2.5 ML AMPUL.NEB NEB SCH ×4 (02:09→20:26)
[2018-07-05] MEDS: ALBUTEROL FS 2.5 MG/0.5 ML VIAL.NEB NEB SCH ×4 (02:09→20:26)
[2018-07-05] MEDS: PANTOPRAZOLE 40 MG/PACK PACK GT SCH (05:46)
[2018-07-05] MEDS: DILTIAZEM HCL 30 MG TABLET GT SCH ×4 (05:46→23:38)
[2018-07-05 06:00] VITALS: BP 118/60
[2018-07-05] MEDS: BLOOD SUGAR DIAGNOSTIC 1 EACH STRIP IN SCH ×4 (06:03→23:38)
[2018-07-05] MEDS: ACETAMINOPHEN 650 MG/20 ML UDC- SA PATIENTS-PAIN ONLY GT SCH ×2 (09:00→20:47)
[2018-07-05] MEDS: BACI/NEOM/POLY B OINT PKT 1 UDPKT PACKET TP SCH ×2 (09:00→20:47)
[2018-07-05] MEDS: LEVETIRACETAM SOL (5 ML) 100 MG/ML UDC GT SCH ×2 (09:00→20:46)
[2018-07-05] MEDS: VALSARTAN 80 MG TABLET GT SCH (09:00)
[2018-07-05] MEDS: DOCUSATE SODIUM LIQ 100 MG/10 ML UDC GT SCH ×2 (09:00→17:28)
[2018-07-05] MEDS: FERROUS SULFATE - FOR SA ONLY 330 MG/7.5 ML UDC GT SCH (09:00)
[2018-07-05] MEDS: HYDROGEN PEROXIDE 480 ML BOTTLE TP SCH ×2 (09:00→20:47)
[2018-07-05] MEDS: ASCORBIC ACID 500 MG TABLET GT SCH (09:00)
[2018-07-05] MEDS: Z GUARD REMEDY 4 OZ OINT TP SCH ×2 (09:00→20:47)
[2018-07-05] MEDS: Z GUARD REMEDY 2 OZ OINT TP SCH ×2 (09:00→20:47)
[2018-07-05] MEDS: ZINC SULFATE 220 MG CAPSULE GT SCH (09:00)
[2018-07-05] MEDS: ACIDOPHILUS/BULGARICUS 1 EACH TAB.CHEW GT SCH ×2 (09:00→17:28)
[2018-07-05] MEDS: THERAHONEY GEL 1.5 OZ TUBE TP SCH ×2 (09:00→20:47)
[2018-07-05] MEDS: MULTIVIT W/MINERALS 1 TAB TABLET GT SCH (09:00)
[2018-07-05] MEDS: INSULIN ASPART/LISPRO 100 UNIT/ML CARTRIDGE SQ PRN ×2 (12:24→23:44)
[2018-07-05 13:39] VITALS: BP 100/48
[2018-07-05] MEDS: GLUCERNA 1.2 1,000 ML BOTTLE GT PRN (17:29)
[2018-07-05 18:57] VITALS: BP 100/48
[2018-07-05 20:06] VITALS: BP 155/74
[2018-07-05] MEDS: ENOXAPARIN SODIUM 40 MG/0.4 ML DISP.SYRIN SQ SCH (20:47)
[2018-07-05] MEDS: ATORVASTATIN 10 MG TABLET GT SCH (21:27)
[2018-07-05] MEDS: INSULIN GLARGINE, 100 UNIT/ML CARTRIDGE SQ SCH (21:28)
[2018-07-06 00:39] VITALS: BP 109/76
[2018-07-06] MEDS: IPRATROPIUM NEB FS 0.5 MG/2.5 ML AMPUL.NEB NEB SCH ×4 (01:51→19:56)
[2018-07-06] MEDS: ALBUTEROL FS 2.5 MG/0.5 ML VIAL.NEB NEB SCH ×4 (01:51→19:56)
[2018-07-06] MEDS: DILTIAZEM HCL 30 MG TABLET GT SCH ×3 (05:42→17:43)
[2018-07-06] MEDS: BLOOD SUGAR DIAGNOSTIC 1 EACH STRIP IN SCH ×3 (05:43→17:43)
[2018-07-06] MEDS: PANTOPRAZOLE 40 MG/PACK PACK GT SCH (05:43)
[2018-07-06] MEDS: INSULIN ASPART/LISPRO 100 UNIT/ML CARTRIDGE SQ PRN ×3 (05:45→17:43)
[2018-07-06 06:27] VITALS: BP 137/90
[2018-07-06 07:28] VITALS: BP 139/39
[2018-07-06] MEDS: VALSARTAN 80 MG TABLET GT SCH (09:00)
[2018-07-06] MEDS: DOCUSATE SODIUM LIQ 100 MG/10 ML UDC GT SCH ×2 (09:38→17:43)
[2018-07-06] MEDS: FERROUS SULFATE - FOR SA ONLY 330 MG/7.5 ML UDC GT SCH (09:38)
[2018-07-06] MEDS: ACIDOPHILUS/BULGARICUS 1 EACH TAB.CHEW GT SCH ×2 (09:39→17:43)
[2018-07-06] MEDS: LEVETIRACETAM SOL (5 ML) 100 MG/ML UDC GT SCH ×2 (09:39→20:40)
[2018-07-06] MEDS: ASCORBIC ACID 500 MG TABLET GT SCH (09:39)
[2018-07-06] MEDS: ZINC SULFATE 220 MG CAPSULE GT SCH (09:39)
[2018-07-06] MEDS: MULTIVIT W/MINERALS 1 TAB TABLET GT SCH (09:39)
[2018-07-06] MEDS: ACETAMINOPHEN 650 MG/20 ML UDC- SA PATIENTS-PAIN ONLY GT SCH ×2 (09:39→20:41)
[2018-07-06] MEDS: THERAHONEY GEL 1.5 OZ TUBE TP SCH ×2 (10:15→20:42)
[2018-07-06] MEDS: Z GUARD REMEDY 4 OZ OINT TP SCH ×2 (10:15→20:42)
[2018-07-06] MEDS: Z GUARD REMEDY 2 OZ OINT TP SCH ×2 (10:15→20:41)
[2018-07-06] MEDS: BACI/NEOM/POLY B OINT PKT 1 UDPKT PACKET TP SCH ×2 (10:15→20:41)
[2018-07-06] MEDS: HYDROGEN PEROXIDE 480 ML BOTTLE TP SCH ×2 (10:15→20:41)
[2018-07-06 12:00] VITALS: BP 138/80
[2018-07-06] MEDS: GLUCERNA 1.2 1,000 ML BOTTLE GT PRN (17:55)
[2018-07-06 18:35] VITALS: BP 112/65
[2018-07-06 19:41] VITALS: BP 139/57
[2018-07-06] MEDS: ENOXAPARIN SODIUM 40 MG/0.4 ML DISP.SYRIN SQ SCH (20:41)
[2018-07-06] MEDS: INSULIN GLARGINE, 100 UNIT/ML CARTRIDGE SQ SCH (21:18)
[2018-07-06] MEDS: ATORVASTATIN 10 MG TABLET GT SCH (21:18)
[2018-07-07 00:12] VITALS: BP 119/86
[2018-07-07] MEDS: DILTIAZEM HCL 30 MG TABLET GT SCH ×5 (00:13→23:46)
[2018-07-07] MEDS: BLOOD SUGAR DIAGNOSTIC 1 EACH STRIP IN SCH ×5 (00:13→23:46)
[2018-07-07] MEDS: INSULIN ASPART/LISPRO 100 UNIT/ML CARTRIDGE SQ PRN ×5 (00:14→23:47)
[2018-07-07] MEDS: IPRATROPIUM NEB FS 0.5 MG/2.5 ML AMPUL.NEB NEB SCH ×4 (01:38→19:36)
[2018-07-07] MEDS: ALBUTEROL FS 2.5 MG/0.5 ML VIAL.NEB NEB SCH ×4 (01:38→19:36)
[2018-07-07] MEDS: PANTOPRAZOLE 40 MG/PACK PACK GT SCH (05:09)
[2018-07-07 06:17] VITALS: BP 136/70
[2018-07-07 07:39] VITALS: BP 122/61
[2018-07-07] MEDS: ZINC SULFATE 220 MG CAPSULE GT SCH (09:52)
[2018-07-07] MEDS: LEVETIRACETAM SOL (5 ML) 100 MG/ML UDC GT SCH ×2 (09:52→21:23)
[2018-07-07] MEDS: FERROUS SULFATE - FOR SA ONLY 330 MG/7.5 ML UDC GT SCH (09:52)
[2018-07-07] MEDS: ACIDOPHILUS/BULGARICUS 1 EACH TAB.CHEW GT SCH ×2 (09:52→17:23)
[2018-07-07] MEDS: VALSARTAN 80 MG TABLET GT SCH (09:52)
[2018-07-07] MEDS: DOCUSATE SODIUM LIQ 100 MG/10 ML UDC GT SCH ×2 (09:52→17:23)
[2018-07-07] MEDS: MULTIVIT W/MINERALS 1 TAB TABLET GT SCH (09:52)
[2018-07-07] MEDS: ASCORBIC ACID 500 MG TABLET GT SCH (09:52)
[2018-07-07] MEDS: ACETAMINOPHEN 650 MG/20 ML UDC- SA PATIENTS-PAIN ONLY GT SCH ×2 (09:53→21:23)
[2018-07-07] MEDS: Z GUARD REMEDY 4 OZ OINT TP SCH ×2 (10:25→21:24)
[2018-07-07] MEDS: HYDROGEN PEROXIDE 480 ML BOTTLE TP SCH ×2 (10:25→21:24)
[2018-07-07] MEDS: THERAHONEY GEL 1.5 OZ TUBE TP SCH ×2 (10:25→21:24)
[2018-07-07] MEDS: Z GUARD REMEDY 2 OZ OINT TP SCH ×2 (10:25→21:24)
[2018-07-07 12:00] VITALS: BP 117/66
[2018-07-07 18:27] VITALS: BP 108/62
[2018-07-07] MEDS: GLUCERNA 1.2 1,000 ML BOTTLE GT PRN (18:42)
[2018-07-07 20:40] VITALS: BP 143/71
[2018-07-07] MEDS: ATORVASTATIN 10 MG TABLET GT SCH (21:24)
[2018-07-07] MEDS: ENOXAPARIN SODIUM 40 MG/0.4 ML DISP.SYRIN SQ SCH (21:24)
[2018-07-07] MEDS: INSULIN GLARGINE, 100 UNIT/ML CARTRIDGE SQ SCH (21:25)
[2018-07-08 00:22] VITALS: BP 120/79
[2018-07-08] MEDS: IPRATROPIUM NEB FS 0.5 MG/2.5 ML AMPUL.NEB NEB SCH ×4 (01:38→19:23)
[2018-07-08] MEDS: ALBUTEROL FS 2.5 MG/0.5 ML VIAL.NEB NEB SCH ×4 (01:38→19:23)
[2018-07-08] MEDS: INSULIN ASPART/LISPRO 100 UNIT/ML CARTRIDGE SQ PRN ×4 (05:40→23:13)
[2018-07-08] MEDS: PANTOPRAZOLE 40 MG/PACK PACK GT SCH (05:40)
[2018-07-08] MEDS: BLOOD SUGAR DIAGNOSTIC 1 EACH STRIP IN SCH ×4 (05:40→23:14)
[2018-07-08] MEDS: DILTIAZEM HCL 30 MG TABLET GT SCH ×4 (05:40→23:14)
[2018-07-08 06:13] VITALS: BP 130/56
[2018-07-08 07:50] VITALS: BP 130/59
[2018-07-08] MEDS: FERROUS SULFATE - FOR SA ONLY 330 MG/7.5 ML UDC GT SCH (08:51)
[2018-07-08] MEDS: VALSARTAN 80 MG TABLET GT SCH (08:51)
[2018-07-08] MEDS: MULTIVIT W/MINERALS 1 TAB TABLET GT SCH (08:51)
[2018-07-08] MEDS: LEVETIRACETAM SOL (5 ML) 100 MG/ML UDC GT SCH ×2 (08:51→21:06)
[2018-07-08] MEDS: DOCUSATE SODIUM LIQ 100 MG/10 ML UDC GT SCH ×2 (08:51→17:25)
[2018-07-08] MEDS: ACIDOPHILUS/BULGARICUS 1 EACH TAB.CHEW GT SCH ×2 (08:51→17:25)
[2018-07-08] MEDS: ASCORBIC ACID 500 MG TABLET GT SCH (08:52)
[2018-07-08] MEDS: ACETAMINOPHEN 650 MG/20 ML UDC- SA PATIENTS-PAIN ONLY GT SCH ×2 (08:52→21:06)
[2018-07-08] MEDS: ZINC SULFATE 220 MG CAPSULE GT SCH (08:52)
[2018-07-08] MEDS: Z GUARD REMEDY 4 OZ OINT TP SCH ×2 (09:30→21:07)
[2018-07-08] MEDS: THERAHONEY GEL 1.5 OZ TUBE TP SCH ×2 (09:30→21:08)
[2018-07-08] MEDS: HYDROGEN PEROXIDE 480 ML BOTTLE TP SCH ×2 (09:30→21:07)
[2018-07-08] MEDS: Z GUARD REMEDY 2 OZ OINT TP SCH ×2 (09:30→21:07)
[2018-07-08 12:00] VITALS: BP 133/83
[2018-07-08] MEDS: GLUCERNA 1.2 1,000 ML BOTTLE GT PRN (18:14)
[2018-07-08 18:48] VITALS: BP 118/68
[2018-07-08 19:52] VITALS: BP 114/69
[2018-07-08] MEDS: ENOXAPARIN SODIUM 40 MG/0.4 ML DISP.SYRIN SQ SCH (21:07)
[2018-07-08] MEDS: ATORVASTATIN 10 MG TABLET GT SCH (21:08)
[2018-07-08] MEDS: INSULIN GLARGINE, 100 UNIT/ML CARTRIDGE SQ SCH (21:09)
[2018-07-09] VITALS (7 sets, daily range): BP systolic 107–146; BP diastolic 61–82
[2018-07-09] MEDS: hydrALAZINE HCL 10 MG TABLET GT PRN (00:17)
[2018-07-09] MEDS: ALBUTEROL FS 2.5 MG/0.5 ML VIAL.NEB NEB SCH ×4 (00:55→19:32)
[2018-07-09] MEDS: IPRATROPIUM NEB FS 0.5 MG/2.5 ML AMPUL.NEB NEB SCH ×4 (00:55→19:32)
[2018-07-09] MEDS: BLOOD SUGAR DIAGNOSTIC 1 EACH STRIP IN SCH ×3 (06:00→17:33)
[2018-07-09] MEDS: DILTIAZEM HCL 30 MG TABLET GT SCH ×3 (06:00→17:33)
[2018-07-09] MEDS: INSULIN ASPART/LISPRO 100 UNIT/ML CARTRIDGE SQ PRN ×3 (06:00→17:33)
[2018-07-09] MEDS: PANTOPRAZOLE 40 MG/PACK PACK GT SCH (06:00)
[2018-07-09] MEDS: VALSARTAN 80 MG TABLET GT SCH (09:00)
[2018-07-09] MEDS: DOCUSATE SODIUM LIQ 100 MG/10 ML UDC GT SCH ×2 (09:40→17:33)
[2018-07-09] MEDS: FERROUS SULFATE - FOR SA ONLY 330 MG/7.5 ML UDC GT SCH (09:41)
[2018-07-09] MEDS: ACIDOPHILUS/BULGARICUS 1 EACH TAB.CHEW GT SCH ×2 (09:41→17:33)
[2018-07-09] MEDS: LEVETIRACETAM SOL (5 ML) 100 MG/ML UDC GT SCH ×2 (09:41→21:48)
[2018-07-09] MEDS: MULTIVIT W/MINERALS 1 TAB TABLET GT SCH (09:43)
[2018-07-09] MEDS: ACETAMINOPHEN 650 MG/20 ML UDC- SA PATIENTS-PAIN ONLY GT SCH ×2 (09:43→21:49)
[2018-07-09] MEDS: ZINC SULFATE 220 MG CAPSULE GT SCH (09:44)
[2018-07-09] MEDS: ASCORBIC ACID 500 MG TABLET GT SCH (09:44)
[2018-07-09] MEDS: THERAHONEY GEL 1.5 OZ TUBE TP SCH ×2 (10:43→21:51)
[2018-07-09] MEDS: HYDROGEN PEROXIDE 480 ML BOTTLE TP SCH ×2 (10:43→21:50)
[2018-07-09] MEDS: Z GUARD REMEDY 2 OZ OINT TP SCH ×2 (10:43→21:50)
[2018-07-09] MEDS: Z GUARD REMEDY 4 OZ OINT TP SCH ×2 (10:43→21:50)
[2018-07-09] MEDS: ACETAMINOPHEN 650 MG/20 ML UDC- SA PATIENTS-PAIN ONLY GT PRN (17:36)
[2018-07-09] MEDS: GLUCERNA 1.2 1,000 ML BOTTLE GT PRN (17:57)
[2018-07-09] MEDS: ENOXAPARIN SODIUM 40 MG/0.4 ML DISP.SYRIN SQ SCH (21:50)
[2018-07-09] MEDS: ATORVASTATIN 10 MG TABLET GT SCH (21:51)
[2018-07-09] MEDS: INSULIN GLARGINE, 100 UNIT/ML CARTRIDGE SQ SCH (22:14)
[2018-07-10] VITALS: BP 130/75
[2018-07-10] MEDS: BLOOD SUGAR DIAGNOSTIC 1 EACH STRIP IN SCH ×4 (00:42→17:49)
[2018-07-10] MEDS: INSULIN ASPART/LISPRO 100 UNIT/ML CARTRIDGE SQ PRN ×4 (00:44→17:49)
[2018-07-10] MEDS: DILTIAZEM HCL 30 MG TABLET GT SCH ×4 (00:53→17:49)
[2018-07-10] MEDS: ALBUTEROL FS 2.5 MG/0.5 ML VIAL.NEB NEB SCH ×4 (01:32→19:49)
[2018-07-10] MEDS: IPRATROPIUM NEB FS 0.5 MG/2.5 ML AMPUL.NEB NEB SCH ×4 (01:32→19:49)
[2018-07-10] MEDS: PANTOPRAZOLE 40 MG/PACK PACK GT SCH (05:39)
[2018-07-10 06:00] VITALS: BP 136/73
[2018-07-10 07:53] VITALS: BP 111/47
[2018-07-10] MEDS: VALSARTAN 80 MG TABLET GT SCH (09:00)
[2018-07-10] MEDS: LEVETIRACETAM SOL (5 ML) 100 MG/ML UDC GT SCH ×2 (09:22→20:55)
[2018-07-10] MEDS: FERROUS SULFATE - FOR SA ONLY 330 MG/7.5 ML UDC GT SCH (09:22)
[2018-07-10] MEDS: DOCUSATE SODIUM LIQ 100 MG/10 ML UDC GT SCH ×2 (09:22→17:49)
[2018-07-10] MEDS: ACIDOPHILUS/BULGARICUS 1 EACH TAB.CHEW GT SCH ×2 (09:22→17:49)
[2018-07-10] MEDS: ACETAMINOPHEN 650 MG/20 ML UDC- SA PATIENTS-PAIN ONLY GT SCH ×2 (09:22→20:55)
[2018-07-10] MEDS: ZINC SULFATE 220 MG CAPSULE GT SCH (09:22)
[2018-07-10] MEDS: MULTIVIT W/MINERALS 1 TAB TABLET GT SCH (09:22)
[2018-07-10] MEDS: ASCORBIC ACID 500 MG TABLET GT SCH (09:22)
[2018-07-10] MEDS: HYDROGEN PEROXIDE 480 ML BOTTLE TP SCH ×2 (10:00→21:39)
[2018-07-10] MEDS: Z GUARD REMEDY 2 OZ OINT TP SCH ×2 (10:00→21:39)
[2018-07-10] MEDS: THERAHONEY GEL 1.5 OZ TUBE TP SCH ×2 (10:00→21:39)
[2018-07-10] MEDS: Z GUARD REMEDY 4 OZ OINT TP SCH (10:00)
[2018-07-10 12:00] VITALS: BP 107/72
[2018-07-10 18:07] VITALS: BP 124/72
[2018-07-10 20:41] VITALS: BP 119/72
[2018-07-10] MEDS: ENOXAPARIN SODIUM 40 MG/0.4 ML DISP.SYRIN SQ SCH (20:56)
[2018-07-10] MEDS: ATORVASTATIN 10 MG TABLET GT SCH (21:18)
[2018-07-10] MEDS: INSULIN GLARGINE, 100 UNIT/ML CARTRIDGE SQ SCH (21:19)
[2018-07-11] MEDS: BLOOD SUGAR DIAGNOSTIC 1 EACH STRIP IN SCH ×5 (00:05→23:21)
[2018-07-11] MEDS: DILTIAZEM HCL 30 MG TABLET GT SCH ×5 (00:05→23:21)
[2018-07-11] MEDS: INSULIN ASPART/LISPRO 100 UNIT/ML CARTRIDGE SQ PRN ×4 (00:06→23:22)
[2018-07-11 00:49] VITALS: BP 126/76
[2018-07-11] MEDS: GLUCERNA 1.2 1,000 ML BOTTLE GT PRN (01:19)
[2018-07-11] MEDS: ALBUTEROL FS 2.5 MG/0.5 ML VIAL.NEB NEB SCH ×4 (02:26→20:14)
[2018-07-11] MEDS: IPRATROPIUM NEB FS 0.5 MG/2.5 ML AMPUL.NEB NEB SCH ×4 (02:26→20:14)
[2018-07-11] MEDS: PANTOPRAZOLE 40 MG/PACK PACK GT SCH (06:22)
[2018-07-11 06:37] VITALS: BP 130/70
[2018-07-11 08:40] VITALS: BP 123/80
[2018-07-11] MEDS: DOCUSATE SODIUM LIQ 100 MG/10 ML UDC GT SCH ×2 (09:09→16:54)
[2018-07-11] MEDS: VALSARTAN 80 MG TABLET GT SCH (09:10)
[2018-07-11] MEDS: FERROUS SULFATE - FOR SA ONLY 330 MG/7.5 ML UDC GT SCH (09:10)
[2018-07-11] MEDS: LEVETIRACETAM SOL (5 ML) 100 MG/ML UDC GT SCH ×2 (09:10→21:00)
[2018-07-11] MEDS: ACIDOPHILUS/BULGARICUS 1 EACH TAB.CHEW GT SCH ×2 (09:10→16:55)
[2018-07-11] MEDS: MULTIVIT W/MINERALS 1 TAB TABLET GT SCH (09:10)
[2018-07-11] MEDS: ASCORBIC ACID 500 MG TABLET GT SCH (09:11)
[2018-07-11] MEDS: ACETAMINOPHEN 650 MG/20 ML UDC- SA PATIENTS-PAIN ONLY GT SCH ×2 (09:11→21:01)
[2018-07-11] MEDS: ZINC SULFATE 220 MG CAPSULE GT SCH (09:11)
[2018-07-11] MEDS: HYDROGEN PEROXIDE 480 ML BOTTLE TP SCH ×2 (09:11→21:38)
[2018-07-11] MEDS: Z GUARD REMEDY 2 OZ OINT TP SCH ×2 (09:11→21:38)
[2018-07-11] MEDS: THERAHONEY GEL 1.5 OZ TUBE TP SCH ×2 (09:11→21:38)
[2018-07-11 12:00] VITALS: BP 142/79
[2018-07-11 18:50] VITALS: BP 127/79
[2018-07-11 20:28] VITALS: BP 130/77
--- NOTE | 2018-07-11 20:38 | NUR ---
PT ROLO WAHL'D ON COOL AEROSOL WITH CHARTED SETTINGS. HHN TX GIVEN AND NO ADVERSE REACTION NOTED. SX DONE. PT TRACH PATENT AND SECURE. AMBU BAG AT BEDSIDE. WILL CONTINUE TO MONITOR. Addendum: 07/11/18 at 2037 by JOEY PAPPAS RT Amended: Links added.
[2018-07-11] MEDS: ENOXAPARIN SODIUM 40 MG/0.4 ML DISP.SYRIN SQ SCH (21:01)
[2018-07-11] MEDS: ATORVASTATIN 10 MG TABLET GT SCH (21:02)
[2018-07-11] MEDS: INSULIN GLARGINE, 100 UNIT/ML CARTRIDGE SQ SCH (21:42)
[2018-07-12 00:17] VITALS: BP 128/70
[2018-07-12] MEDS: GLUCERNA 1.2 1,000 ML BOTTLE GT PRN (01:22)
[2018-07-12] MEDS: ALBUTEROL FS 2.5 MG/0.5 ML VIAL.NEB NEB SCH ×4 (02:19→19:33)
[2018-07-12] MEDS: IPRATROPIUM NEB FS 0.5 MG/2.5 ML AMPUL.NEB NEB SCH ×4 (02:19→19:33)
[2018-07-12 06:01] VITALS: BP 126/66
[2018-07-12] MEDS: PANTOPRAZOLE 40 MG/PACK PACK GT SCH (06:07)
[2018-07-12] MEDS: BLOOD SUGAR DIAGNOSTIC 1 EACH STRIP IN SCH ×4 (06:07→23:29)
[2018-07-12] MEDS: DILTIAZEM HCL 30 MG TABLET GT SCH ×4 (06:07→23:29)
[2018-07-12] MEDS: INSULIN ASPART/LISPRO 100 UNIT/ML CARTRIDGE SQ PRN ×4 (06:08→23:30)
[2018-07-12 07:27] VITALS: BP 93/57
[2018-07-12] MEDS: DOCUSATE SODIUM LIQ 100 MG/10 ML UDC GT SCH ×2 (08:56→17:00)
[2018-07-12] MEDS: ASCORBIC ACID 500 MG TABLET GT SCH (08:57)
[2018-07-12] MEDS: FERROUS SULFATE - FOR SA ONLY 330 MG/7.5 ML UDC GT SCH (08:57)
[2018-07-12] MEDS: ACETAMINOPHEN 650 MG/20 ML UDC- SA PATIENTS-PAIN ONLY GT SCH ×2 (08:57→21:17)
[2018-07-12] MEDS: ACIDOPHILUS/BULGARICUS 1 EACH TAB.CHEW GT SCH ×2 (08:57→17:00)
[2018-07-12] MEDS: LEVETIRACETAM SOL (5 ML) 100 MG/ML UDC GT SCH ×2 (08:57→21:16)
[2018-07-12] MEDS: VALSARTAN 80 MG TABLET GT SCH (08:57)
[2018-07-12] MEDS: MULTIVIT W/MINERALS 1 TAB TABLET GT SCH (08:57)
[2018-07-12] MEDS: ZINC SULFATE 220 MG CAPSULE GT SCH (08:57)
[2018-07-12] MEDS: Z GUARD REMEDY 2 OZ OINT TP SCH ×2 (08:58→21:17)
[2018-07-12] MEDS: HYDROGEN PEROXIDE 480 ML BOTTLE TP SCH ×2 (08:58→21:17)
[2018-07-12] MEDS: THERAHONEY GEL 1.5 OZ TUBE TP SCH ×2 (08:58→21:17)
[2018-07-12 12:00] VITALS: BP 95/57
[2018-07-12 18:52] VITALS: BP 108/70
[2018-07-12] MEDS: ENOXAPARIN SODIUM 40 MG/0.4 ML DISP.SYRIN SQ SCH (21:17)
[2018-07-12] MEDS: ATORVASTATIN 10 MG TABLET GT SCH (21:17)
[2018-07-12] MEDS: INSULIN GLARGINE, 100 UNIT/ML CARTRIDGE SQ SCH (21:18)
[2018-07-13] VITALS (7 sets, daily range): BP systolic 95–133; BP diastolic 61–97
[2018-07-13] MEDS: ALBUTEROL FS 2.5 MG/0.5 ML VIAL.NEB NEB SCH ×4 (02:07→20:12)
[2018-07-13] MEDS: IPRATROPIUM NEB FS 0.5 MG/2.5 ML AMPUL.NEB NEB SCH ×4 (02:07→20:12)
[2018-07-13] MEDS: DILTIAZEM HCL 30 MG TABLET GT SCH ×4 (06:00→23:50)
[2018-07-13] MEDS: BLOOD SUGAR DIAGNOSTIC 1 EACH STRIP IN SCH ×3 (06:08→17:56)
[2018-07-13] MEDS: INSULIN ASPART/LISPRO 100 UNIT/ML CARTRIDGE SQ PRN ×3 (06:08→17:59)
[2018-07-13] MEDS: PANTOPRAZOLE 40 MG/PACK PACK GT SCH (06:08)
[2018-07-13] MEDS: GLUCERNA 1.2 1,000 ML BOTTLE GT PRN (06:08)
[2018-07-13] MEDS: DOCUSATE SODIUM LIQ 100 MG/10 ML UDC GT SCH ×2 (08:54→16:28)
[2018-07-13] MEDS: ACIDOPHILUS/BULGARICUS 1 EACH TAB.CHEW GT SCH ×2 (08:55→16:28)
[2018-07-13] MEDS: MULTIVIT W/MINERALS 1 TAB TABLET GT SCH (08:55)
[2018-07-13] MEDS: LEVETIRACETAM SOL (5 ML) 100 MG/ML UDC GT SCH ×2 (08:55→21:11)
[2018-07-13] MEDS: FERROUS SULFATE - FOR SA ONLY 330 MG/7.5 ML UDC GT SCH (08:55)
[2018-07-13] MEDS: VALSARTAN 80 MG TABLET GT SCH (08:55)
[2018-07-13] MEDS: ACETAMINOPHEN 650 MG/20 ML UDC- SA PATIENTS-PAIN ONLY GT SCH ×2 (08:56→21:12)
[2018-07-13] MEDS: ASCORBIC ACID 500 MG TABLET GT SCH (08:56)
[2018-07-13] MEDS: ZINC SULFATE 220 MG CAPSULE GT SCH (08:56)
[2018-07-13] MEDS: HYDROGEN PEROXIDE 480 ML BOTTLE TP SCH ×2 (09:00→21:50)
[2018-07-13] MEDS: THERAHONEY GEL 1.5 OZ TUBE TP SCH ×2 (09:00→21:50)
[2018-07-13] MEDS: Z GUARD REMEDY 2 OZ OINT TP SCH ×2 (09:00→21:50)
--- NOTE | 2018-07-13 10:16 | NUR ---
Requested Peyton Mckenzie NP to reassess L buttock wound treatment with periwound having irregular shape, hard and macerated tissue. CAUSTIC PREPARER seen wound photo taken on 07/11/18 and said she would refer it to Dr. Gomez for further debridement of L buttock wound.
[2018-07-13] MEDS: IPRATROPIUM NEB FS 0.5 MG/2.5 ML AMPUL.NEB NEB PRN (13:22)
[2018-07-13] MEDS: ENOXAPARIN SODIUM 40 MG/0.4 ML DISP.SYRIN SQ SCH (21:12)
[2018-07-13] MEDS: ATORVASTATIN 10 MG TABLET GT SCH (21:13)
[2018-07-13] MEDS: INSULIN GLARGINE, 100 UNIT/ML CARTRIDGE SQ SCH (22:47)
[2018-07-14 00:14] VITALS: BP 137/83
[2018-07-14] MEDS: BLOOD SUGAR DIAGNOSTIC 1 EACH STRIP IN SCH ×4 (00:18→17:46)
[2018-07-14] MEDS: INSULIN ASPART/LISPRO 100 UNIT/ML CARTRIDGE SQ PRN ×4 (00:20→17:48)
[2018-07-14] MEDS: IPRATROPIUM NEB FS 0.5 MG/2.5 ML AMPUL.NEB NEB SCH ×4 (01:04→20:03)
[2018-07-14] MEDS: ALBUTEROL FS 2.5 MG/0.5 ML VIAL.NEB NEB SCH ×4 (01:04→20:03)
[2018-07-14 06:40] VITALS: BP 130/72
[2018-07-14] MEDS: DILTIAZEM HCL 30 MG TABLET GT SCH ×4 (06:42→23:28)
[2018-07-14] MEDS: PANTOPRAZOLE 40 MG/PACK PACK GT SCH (06:42)
[2018-07-14] MEDS: GLUCERNA 1.2 1,000 ML BOTTLE GT PRN (06:43)
[2018-07-14 07:36] VITALS: BP 104/71
[2018-07-14] MEDS: VALSARTAN 80 MG TABLET GT SCH (09:00)
[2018-07-14] MEDS: MULTIVIT W/MINERALS 1 TAB TABLET GT SCH (09:56)
[2018-07-14] MEDS: DOCUSATE SODIUM LIQ 100 MG/10 ML UDC GT SCH ×2 (09:56→17:45)
[2018-07-14] MEDS: FERROUS SULFATE - FOR SA ONLY 330 MG/7.5 ML UDC GT SCH (09:56)
[2018-07-14] MEDS: ACIDOPHILUS/BULGARICUS 1 EACH TAB.CHEW GT SCH ×2 (09:56→17:45)
[2018-07-14] MEDS: LEVETIRACETAM SOL (5 ML) 100 MG/ML UDC GT SCH ×2 (09:56→20:57)
[2018-07-14] MEDS: ACETAMINOPHEN 650 MG/20 ML UDC- SA PATIENTS-PAIN ONLY GT SCH ×2 (09:57→20:58)
[2018-07-14] MEDS: ASCORBIC ACID 500 MG TABLET GT SCH (09:57)
[2018-07-14] MEDS: ZINC SULFATE 220 MG CAPSULE GT SCH (09:57)
[2018-07-14] MEDS: HYDROGEN PEROXIDE 480 ML BOTTLE TP SCH ×2 (11:00→21:45)
[2018-07-14] MEDS: Z GUARD REMEDY 2 OZ OINT TP SCH ×2 (11:00→21:45)
[2018-07-14] MEDS: THERAHONEY GEL 1.5 OZ TUBE TP SCH ×2 (11:00→21:45)
[2018-07-14 12:00] VITALS: BP 93/59
[2018-07-14 18:00] VITALS: BP 121/67
[2018-07-14 20:15] VITALS: BP 126/75
[2018-07-14] MEDS: ENOXAPARIN SODIUM 40 MG/0.4 ML DISP.SYRIN SQ SCH (20:58)
[2018-07-14] MEDS: ATORVASTATIN 10 MG TABLET GT SCH (21:45)
[2018-07-14] MEDS: INSULIN GLARGINE, 100 UNIT/ML CARTRIDGE SQ SCH (21:46)
--- NOTE | 2018-07-14 22:48 | NUR ---
RT NOTE PT RECEIVED ON COOL AEROSOL 28% 5L. NO RESP DISTRESS OR SOB NOTED. PT SX'D. BREATHING TX GIVEN, NO ADVERSE REACTIONS NOTED AT THIS TIME. AMBU BAG AND SPARE TRACH ARE AT BEDSIDE. WILL CONT TO MONITOR PT. Addendum: 07/14/18 at 2249 by DHRUV CHARLES RT Amended: Links added.
[2018-07-15] MEDS: BLOOD SUGAR DIAGNOSTIC 1 EACH STRIP IN SCH ×4 (00:01→18:33)
[2018-07-15] MEDS: INSULIN ASPART/LISPRO 100 UNIT/ML CARTRIDGE SQ PRN ×4 (00:03→18:34)
[2018-07-15 00:06] VITALS: BP 135/73
[2018-07-15] MEDS: IPRATROPIUM NEB FS 0.5 MG/2.5 ML AMPUL.NEB NEB SCH ×4 (01:08→19:53)
[2018-07-15] MEDS: ALBUTEROL FS 2.5 MG/0.5 ML VIAL.NEB NEB SCH ×4 (01:08→19:53)
[2018-07-15] MEDS: DILTIAZEM HCL 30 MG TABLET GT SCH ×3 (05:21→18:31)
[2018-07-15] MEDS: PANTOPRAZOLE 40 MG/PACK PACK GT SCH (05:21)
[2018-07-15 06:01] VITALS: BP 110/81
[2018-07-15] MEDS: GLUCERNA 1.2 1,000 ML BOTTLE GT PRN (06:13)
[2018-07-15 08:25] VITALS: BP 111/67
[2018-07-15] MEDS: ACIDOPHILUS/BULGARICUS 1 EACH TAB.CHEW GT SCH ×2 (09:00→17:00)
[2018-07-15] MEDS: VALSARTAN 80 MG TABLET GT SCH (09:00)
[2018-07-15] MEDS: Z GUARD REMEDY 2 OZ OINT TP SCH ×2 (09:00→20:45)
[2018-07-15] MEDS: ACETAMINOPHEN 650 MG/20 ML UDC- SA PATIENTS-PAIN ONLY GT SCH ×2 (09:00→20:43)
[2018-07-15] MEDS: HYDROGEN PEROXIDE 480 ML BOTTLE TP SCH ×2 (09:00→20:45)
[2018-07-15] MEDS: MULTIVIT W/MINERALS 1 TAB TABLET GT SCH (09:00)
[2018-07-15] MEDS: ZINC SULFATE 220 MG CAPSULE GT SCH (09:00)
[2018-07-15] MEDS: DOCUSATE SODIUM LIQ 100 MG/10 ML UDC GT SCH ×2 (09:00→17:00)
[2018-07-15] MEDS: FERROUS SULFATE - FOR SA ONLY 330 MG/7.5 ML UDC GT SCH (09:00)
[2018-07-15] MEDS: THERAHONEY GEL 1.5 OZ TUBE TP SCH ×2 (09:00→20:45)
[2018-07-15] MEDS: LEVETIRACETAM SOL (5 ML) 100 MG/ML UDC GT SCH ×2 (09:00→20:42)
[2018-07-15] MEDS: ASCORBIC ACID 500 MG TABLET GT SCH (09:00)
[2018-07-15 16:05] VITALS: BP 125/76
[2018-07-15 18:39] VITALS: BP 127/73
[2018-07-15 20:00] VITALS: BP 113/59
[2018-07-15] MEDS: ENOXAPARIN SODIUM 40 MG/0.4 ML DISP.SYRIN SQ SCH (20:44)
[2018-07-15] MEDS: ATORVASTATIN 10 MG TABLET GT SCH (21:34)
[2018-07-15] MEDS: INSULIN GLARGINE, 100 UNIT/ML CARTRIDGE SQ SCH (21:35)
[2018-07-16] MEDS: DILTIAZEM HCL 30 MG TABLET GT SCH ×4 (00:46→18:08)
[2018-07-16] MEDS: BLOOD SUGAR DIAGNOSTIC 1 EACH STRIP IN SCH ×4 (00:46→18:10)
[2018-07-16] MEDS: INSULIN ASPART/LISPRO 100 UNIT/ML CARTRIDGE SQ PRN ×4 (00:48→18:13)
[2018-07-16 01:00] VITALS: BP 111/53
[2018-07-16] MEDS: IPRATROPIUM NEB FS 0.5 MG/2.5 ML AMPUL.NEB NEB SCH ×4 (01:45→19:46)
[2018-07-16] MEDS: ALBUTEROL FS 2.5 MG/0.5 ML VIAL.NEB NEB SCH ×4 (01:45→19:46)
[2018-07-16] MEDS: PANTOPRAZOLE 40 MG/PACK PACK GT SCH (05:25)
[2018-07-16] MEDS: GLUCERNA 1.2 1,000 ML BOTTLE GT PRN (06:16)
[2018-07-16 06:33] VITALS: BP 149/75
[2018-07-16 08:54] VITALS: BP 116/62
[2018-07-16] MEDS: MULTIVIT W/MINERALS 1 TAB TABLET GT SCH (09:42)
[2018-07-16] MEDS: DOCUSATE SODIUM LIQ 100 MG/10 ML UDC GT SCH ×2 (09:42→17:00)
[2018-07-16] MEDS: VALSARTAN 80 MG TABLET GT SCH (09:42)
[2018-07-16] MEDS: ACIDOPHILUS/BULGARICUS 1 EACH TAB.CHEW GT SCH ×2 (09:42→17:00)
[2018-07-16] MEDS: LEVETIRACETAM SOL (5 ML) 100 MG/ML UDC GT SCH ×2 (09:42→20:10)
[2018-07-16] MEDS: FERROUS SULFATE - FOR SA ONLY 330 MG/7.5 ML UDC GT SCH (09:42)
[2018-07-16] MEDS: Z GUARD REMEDY 2 OZ OINT TP SCH ×2 (09:43→20:12)
[2018-07-16] MEDS: THERAHONEY GEL 1.5 OZ TUBE TP SCH ×2 (09:43→20:12)
[2018-07-16] MEDS: ACETAMINOPHEN 650 MG/20 ML UDC- SA PATIENTS-PAIN ONLY GT SCH ×2 (09:43→20:11)
[2018-07-16] MEDS: ZINC SULFATE 220 MG CAPSULE GT SCH (09:43)
[2018-07-16] MEDS: HYDROGEN PEROXIDE 480 ML BOTTLE TP SCH ×2 (09:43→20:12)
[2018-07-16] MEDS: ASCORBIC ACID 500 MG TABLET GT SCH (09:43)
[2018-07-16 13:06] VITALS: BP 131/79
[2018-07-16 18:40] VITALS: BP 130/66
[2018-07-16 19:59] VITALS: BP 134/65
[2018-07-16] MEDS: ENOXAPARIN SODIUM 40 MG/0.4 ML DISP.SYRIN SQ SCH (20:12)
[2018-07-16] MEDS: ATORVASTATIN 10 MG TABLET GT SCH (21:34)
[2018-07-16] MEDS: INSULIN GLARGINE, 100 UNIT/ML CARTRIDGE SQ SCH (21:35)
[2018-07-17] MEDS: DILTIAZEM HCL 30 MG TABLET GT SCH ×4 (00:51→18:17)
[2018-07-17] MEDS: BLOOD SUGAR DIAGNOSTIC 1 EACH STRIP IN SCH ×4 (00:52→18:32)
[2018-07-17] MEDS: INSULIN ASPART/LISPRO 100 UNIT/ML CARTRIDGE SQ PRN ×5 (00:53→18:33)
[2018-07-17] MEDS: IPRATROPIUM NEB FS 0.5 MG/2.5 ML AMPUL.NEB NEB SCH ×4 (01:21→19:48)
[2018-07-17] MEDS: ALBUTEROL FS 2.5 MG/0.5 ML VIAL.NEB NEB SCH ×4 (01:22→19:48)
[2018-07-17 01:45] VITALS: BP 115/73
[2018-07-17] MEDS: GLUCERNA 1.2 1,000 ML BOTTLE GT PRN (04:23)
[2018-07-17] MEDS: PANTOPRAZOLE 40 MG/PACK PACK GT SCH (05:34)
[2018-07-17 06:23] VITALS: BP 118/68
[2018-07-17 07:19] VITALS: BP 114/71
[2018-07-17] MEDS: HYDROGEN PEROXIDE 480 ML BOTTLE TP SCH ×2 (09:00→20:23)
[2018-07-17] MEDS: THERAHONEY GEL 1.5 OZ TUBE TP SCH ×2 (09:00→20:24)
[2018-07-17] MEDS: Z GUARD REMEDY 2 OZ OINT TP SCH ×2 (09:00→20:24)
[2018-07-17] MEDS: DOCUSATE SODIUM LIQ 100 MG/10 ML UDC GT SCH ×2 (09:17→17:00)
[2018-07-17] MEDS: LEVETIRACETAM SOL (5 ML) 100 MG/ML UDC GT SCH ×2 (09:18→20:22)
[2018-07-17] MEDS: ACETAMINOPHEN 650 MG/20 ML UDC- SA PATIENTS-PAIN ONLY GT SCH ×2 (09:18→20:22)
[2018-07-17] MEDS: ACIDOPHILUS/BULGARICUS 1 EACH TAB.CHEW GT SCH ×2 (09:18→17:00)
[2018-07-17] MEDS: MULTIVIT W/MINERALS 1 TAB TABLET GT SCH (09:18)
[2018-07-17] MEDS: ZINC SULFATE 220 MG CAPSULE GT SCH (09:18)
[2018-07-17] MEDS: VALSARTAN 80 MG TABLET GT SCH (09:18)
[2018-07-17] MEDS: FERROUS SULFATE - FOR SA ONLY 330 MG/7.5 ML UDC GT SCH (09:18)
[2018-07-17] MEDS: ASCORBIC ACID 500 MG TABLET GT SCH (09:18)
[2018-07-17 18:35] VITALS: BP 157/92
[2018-07-17 20:04] VITALS: BP 130/76
[2018-07-17] MEDS: ENOXAPARIN SODIUM 40 MG/0.4 ML DISP.SYRIN SQ SCH (20:23)
[2018-07-17] MEDS: ATORVASTATIN 10 MG TABLET GT SCH (21:38)
[2018-07-17] MEDS: INSULIN GLARGINE, 100 UNIT/ML CARTRIDGE SQ SCH (21:40)
[2018-07-18] MEDS: DILTIAZEM HCL 30 MG TABLET GT SCH ×5 (00:43→23:10)
[2018-07-18] MEDS: BLOOD SUGAR DIAGNOSTIC 1 EACH STRIP IN SCH ×5 (00:43→23:47)
[2018-07-18] MEDS: INSULIN ASPART/LISPRO 100 UNIT/ML CARTRIDGE SQ PRN ×5 (00:44→23:48)
[2018-07-18 00:50] VITALS: BP 106/69
[2018-07-18] MEDS: IPRATROPIUM NEB FS 0.5 MG/2.5 ML AMPUL.NEB NEB SCH ×4 (01:49→19:29)
[2018-07-18] MEDS: ALBUTEROL FS 2.5 MG/0.5 ML VIAL.NEB NEB SCH ×4 (01:49→19:29)
[2018-07-18] MEDS: GLUCERNA 1.2 1,000 ML BOTTLE GT PRN (04:05)
[2018-07-18] MEDS: PANTOPRAZOLE 40 MG/PACK PACK GT SCH (06:02)
[2018-07-18 06:30] VITALS: BP 112/63
[2018-07-18 07:35] VITALS: BP 124/75
[2018-07-18] MEDS: DOCUSATE SODIUM LIQ 100 MG/10 ML UDC GT SCH ×2 (09:25→17:03)
[2018-07-18] MEDS: MULTIVIT W/MINERALS 1 TAB TABLET GT SCH (09:26)
[2018-07-18] MEDS: FERROUS SULFATE - FOR SA ONLY 330 MG/7.5 ML UDC GT SCH (09:26)
[2018-07-18] MEDS: VALSARTAN 80 MG TABLET GT SCH (09:26)
[2018-07-18] MEDS: ACIDOPHILUS/BULGARICUS 1 EACH TAB.CHEW GT SCH ×2 (09:26→17:03)
[2018-07-18] MEDS: LEVETIRACETAM SOL (5 ML) 100 MG/ML UDC GT SCH ×2 (09:26→21:04)
[2018-07-18] MEDS: ZINC SULFATE 220 MG CAPSULE GT SCH (09:28)
[2018-07-18] MEDS: ACETAMINOPHEN 650 MG/20 ML UDC- SA PATIENTS-PAIN ONLY GT SCH ×2 (09:28→21:05)
[2018-07-18] MEDS: ASCORBIC ACID 500 MG TABLET GT SCH (09:28)
[2018-07-18] MEDS: THERAHONEY GEL 1.5 OZ TUBE TP SCH ×2 (10:28→21:45)
[2018-07-18] MEDS: Z GUARD REMEDY 2 OZ OINT TP SCH ×2 (10:28→21:45)
[2018-07-18] MEDS: HYDROGEN PEROXIDE 480 ML BOTTLE TP SCH ×2 (10:28→21:45)
[2018-07-18 12:00] VITALS: BP 120/75
[2018-07-18 18:00] VITALS: BP 120/73
[2018-07-18 20:00] VITALS: BP 139/71
[2018-07-18] MEDS: ENOXAPARIN SODIUM 40 MG/0.4 ML DISP.SYRIN SQ SCH (21:05)
[2018-07-18] MEDS: ATORVASTATIN 10 MG TABLET GT SCH (21:05)
[2018-07-18] MEDS: INSULIN GLARGINE, 100 UNIT/ML CARTRIDGE SQ SCH (22:19)
[2018-07-19 00:05] VITALS: BP 129/78
[2018-07-19] MEDS: IPRATROPIUM NEB FS 0.5 MG/2.5 ML AMPUL.NEB NEB SCH ×4 (02:38→20:16)
[2018-07-19] MEDS: ALBUTEROL FS 2.5 MG/0.5 ML VIAL.NEB NEB SCH ×4 (02:38→20:16)
[2018-07-19 06:01] VITALS: BP 110/69
[2018-07-19] MEDS: PANTOPRAZOLE 40 MG/PACK PACK GT SCH (06:04)
[2018-07-19] MEDS: DILTIAZEM HCL 30 MG TABLET GT SCH ×4 (06:04→23:52)
[2018-07-19] MEDS: BLOOD SUGAR DIAGNOSTIC 1 EACH STRIP IN SCH ×4 (06:09→23:52)
[2018-07-19] MEDS: GLUCERNA 1.2 1,000 ML BOTTLE GT PRN (06:09)
[2018-07-19] MEDS: INSULIN ASPART/LISPRO 100 UNIT/ML CARTRIDGE SQ PRN ×4 (06:10→23:53)
[2018-07-19 07:45] VITALS: BP 138/79
[2018-07-19] MEDS: Z GUARD REMEDY 2 OZ OINT TP SCH ×2 (09:00→21:43)
[2018-07-19] MEDS: DOCUSATE SODIUM LIQ 100 MG/10 ML UDC GT SCH ×2 (09:50→17:54)
[2018-07-19] MEDS: VALSARTAN 80 MG TABLET GT SCH (09:51)
[2018-07-19] MEDS: ACIDOPHILUS/BULGARICUS 1 EACH TAB.CHEW GT SCH ×2 (09:51→17:54)
[2018-07-19] MEDS: FERROUS SULFATE - FOR SA ONLY 330 MG/7.5 ML UDC GT SCH (09:51)
[2018-07-19] MEDS: LEVETIRACETAM SOL (5 ML) 100 MG/ML UDC GT SCH ×2 (09:51→21:18)
[2018-07-19] MEDS: MULTIVIT W/MINERALS 1 TAB TABLET GT SCH (09:51)
[2018-07-19] MEDS: ACETAMINOPHEN 650 MG/20 ML UDC- SA PATIENTS-PAIN ONLY GT SCH ×2 (09:52→21:19)
[2018-07-19] MEDS: ASCORBIC ACID 500 MG TABLET GT SCH (09:52)
[2018-07-19] MEDS: HYDROGEN PEROXIDE 480 ML BOTTLE TP SCH ×2 (09:52→21:43)
[2018-07-19] MEDS: ZINC SULFATE 220 MG CAPSULE GT SCH (09:52)
[2018-07-19] MEDS: THERAHONEY GEL 1.5 OZ TUBE TP SCH ×2 (09:53→21:43)
--- NOTE | 2018-07-19 09:59 | NUR ---
RT NOTE PT RECEIVED ON COOL AEROSOL 28% 5L. NO RESP DISTRESS OR SOB NOTED. PT SX'D BREATHING TX GIVEN, NO ADVERSE REACTIONS NOTED. AMBU BAG AND SPARE TRACH ARE AT BEDSIDE. WILL CONT TO MONITOR PT. BREATHING TX WAS GIVEN LATE DUE TO ATTENDANCE FOR RAPID RESPONSE CALLED IN [facility] 118. Addendum: 07/19/18 at 1000 by DHRUV CHARLES RT Amended: Links added.
[2018-07-19 12:00] VITALS: BP 132/78
[2018-07-19 19:02] VITALS: BP 143/69
[2018-07-19 19:50] VITALS: BP 120/62
[2018-07-19] MEDS: ATORVASTATIN 10 MG TABLET GT SCH (21:19)
[2018-07-19] MEDS: ENOXAPARIN SODIUM 40 MG/0.4 ML DISP.SYRIN SQ SCH (21:19)
[2018-07-19] MEDS: INSULIN GLARGINE, 100 UNIT/ML CARTRIDGE SQ SCH (22:46)
[2018-07-20 00:06] VITALS: BP 131/88
[2018-07-20] MEDS: ALBUTEROL FS 2.5 MG/0.5 ML VIAL.NEB NEB SCH ×4 (01:22→20:02)
[2018-07-20] MEDS: IPRATROPIUM NEB FS 0.5 MG/2.5 ML AMPUL.NEB NEB SCH ×4 (01:22→20:02)
[2018-07-20] MEDS: BLOOD SUGAR DIAGNOSTIC 1 EACH STRIP IN SCH ×3 (06:18→18:23)
[2018-07-20] MEDS: DILTIAZEM HCL 30 MG TABLET GT SCH ×4 (06:18→23:38)
[2018-07-20] MEDS: PANTOPRAZOLE 40 MG/PACK PACK GT SCH (06:18)
[2018-07-20] MEDS: GLUCERNA 1.2 1,000 ML BOTTLE GT PRN (06:18)
[2018-07-20] MEDS: INSULIN ASPART/LISPRO 100 UNIT/ML CARTRIDGE SQ PRN ×3 (06:19→18:24)
[2018-07-20 06:21] VITALS: BP 123/69
[2018-07-20 07:41] VITALS: BP 118/60
[2018-07-20] MEDS: DOCUSATE SODIUM LIQ 100 MG/10 ML UDC GT SCH ×2 (09:11→17:33)
[2018-07-20] MEDS: LEVETIRACETAM SOL (5 ML) 100 MG/ML UDC GT SCH ×2 (09:12→21:04)
[2018-07-20] MEDS: MULTIVIT W/MINERALS 1 TAB TABLET GT SCH (09:12)
[2018-07-20] MEDS: VALSARTAN 80 MG TABLET GT SCH (09:12)
[2018-07-20] MEDS: FERROUS SULFATE - FOR SA ONLY 330 MG/7.5 ML UDC GT SCH (09:12)
[2018-07-20] MEDS: ACIDOPHILUS/BULGARICUS 1 EACH TAB.CHEW GT SCH ×2 (09:12→17:33)
[2018-07-20] MEDS: ASCORBIC ACID 500 MG TABLET GT SCH (09:12)
[2018-07-20] MEDS: ACETAMINOPHEN 650 MG/20 ML UDC- SA PATIENTS-PAIN ONLY GT SCH ×2 (09:12→21:04)
[2018-07-20] MEDS: ZINC SULFATE 220 MG CAPSULE GT SCH (09:13)
[2018-07-20] MEDS: Z GUARD REMEDY 2 OZ OINT TP SCH ×2 (09:45→21:32)
[2018-07-20] MEDS: HYDROGEN PEROXIDE 480 ML BOTTLE TP SCH ×2 (09:45→21:04)
[2018-07-20] MEDS: THERAHONEY GEL 1.5 OZ TUBE TP SCH ×2 (09:45→21:32)
[2018-07-20 12:00] VITALS: BP 137/90
[2018-07-20 18:00] VITALS: BP 122/66
[2018-07-20 20:10] VITALS: BP 126/67
[2018-07-20] MEDS: ENOXAPARIN SODIUM 40 MG/0.4 ML DISP.SYRIN SQ SCH (21:04)
[2018-07-20] MEDS: ATORVASTATIN 10 MG TABLET GT SCH (21:05)
[2018-07-20] MEDS: INSULIN GLARGINE, 100 UNIT/ML CARTRIDGE SQ SCH (21:40)
[2018-07-21 00:19] VITALS: BP 145/63
[2018-07-21] MEDS: BLOOD SUGAR DIAGNOSTIC 1 EACH STRIP IN SCH ×5 (00:50→23:31)
[2018-07-21] MEDS: INSULIN ASPART/LISPRO 100 UNIT/ML CARTRIDGE SQ PRN ×5 (01:01→23:32)
[2018-07-21] MEDS: ALBUTEROL FS 2.5 MG/0.5 ML VIAL.NEB NEB SCH ×4 (02:15→19:59)
[2018-07-21] MEDS: IPRATROPIUM NEB FS 0.5 MG/2.5 ML AMPUL.NEB NEB SCH ×4 (02:15→19:59)
[2018-07-21] MEDS: DILTIAZEM HCL 30 MG TABLET GT SCH ×4 (05:41→23:34)
[2018-07-21] MEDS: PANTOPRAZOLE 40 MG/PACK PACK GT SCH (05:42)
[2018-07-21 06:33] VITALS: BP 118/74
[2018-07-21] MEDS: GLUCERNA 1.2 1,000 ML BOTTLE GT PRN (06:40)
[2018-07-21 07:21] VITALS: BP 92/60
[2018-07-21] MEDS: VALSARTAN 80 MG TABLET GT SCH (09:00)
[2018-07-21] MEDS: DOCUSATE SODIUM LIQ 100 MG/10 ML UDC GT SCH ×2 (09:38→17:41)
[2018-07-21] MEDS: FERROUS SULFATE - FOR SA ONLY 330 MG/7.5 ML UDC GT SCH (09:39)
[2018-07-21] MEDS: LEVETIRACETAM SOL (5 ML) 100 MG/ML UDC GT SCH ×2 (09:39→21:06)
[2018-07-21] MEDS: ZINC SULFATE 220 MG CAPSULE GT SCH (09:39)
[2018-07-21] MEDS: MULTIVIT W/MINERALS 1 TAB TABLET GT SCH (09:39)
[2018-07-21] MEDS: ACIDOPHILUS/BULGARICUS 1 EACH TAB.CHEW GT SCH ×2 (09:39→17:41)
[2018-07-21] MEDS: ASCORBIC ACID 500 MG TABLET GT SCH (09:39)
[2018-07-21] MEDS: ACETAMINOPHEN 650 MG/20 ML UDC- SA PATIENTS-PAIN ONLY GT SCH ×2 (09:39→21:07)
[2018-07-21] MEDS: HYDROGEN PEROXIDE 480 ML BOTTLE TP SCH ×2 (10:15→21:07)
[2018-07-21] MEDS: Z GUARD REMEDY 2 OZ OINT TP SCH ×2 (10:15→21:07)
[2018-07-21] MEDS: THERAHONEY GEL 1.5 OZ TUBE TP SCH ×2 (10:15→21:08)
[2018-07-21 12:00] VITALS: BP 116/67
[2018-07-21 18:47] VITALS: BP 138/79
[2018-07-21] MEDS: ENOXAPARIN SODIUM 40 MG/0.4 ML DISP.SYRIN SQ SCH (21:07)
[2018-07-21] MEDS: ATORVASTATIN 10 MG TABLET GT SCH (21:08)
[2018-07-21] MEDS: INSULIN GLARGINE, 100 UNIT/ML CARTRIDGE SQ SCH (21:09)
[2018-07-21 21:15] VITALS: BP 132/57
[2018-07-22] VITALS: BP 132/78
[2018-07-22] MEDS: IPRATROPIUM NEB FS 0.5 MG/2.5 ML AMPUL.NEB NEB SCH ×4 (01:10→19:48)
[2018-07-22] MEDS: ALBUTEROL FS 2.5 MG/0.5 ML VIAL.NEB NEB SCH ×4 (01:10→19:49)
[2018-07-22 06:00] VITALS: BP 115/67
[2018-07-22] MEDS: PANTOPRAZOLE 40 MG/PACK PACK GT SCH (06:31)
[2018-07-22] MEDS: INSULIN ASPART/LISPRO 100 UNIT/ML CARTRIDGE SQ PRN ×3 (06:31→17:26)
[2018-07-22] MEDS: DILTIAZEM HCL 30 MG TABLET GT SCH ×3 (06:31→17:26)
[2018-07-22] MEDS: BLOOD SUGAR DIAGNOSTIC 1 EACH STRIP IN SCH ×3 (06:31→17:26)
[2018-07-22 08:03] VITALS: BP 105/63
[2018-07-22] MEDS: VALSARTAN 80 MG TABLET GT SCH (09:00)
[2018-07-22] MEDS: DOCUSATE SODIUM LIQ 100 MG/10 ML UDC GT SCH ×2 (09:38→17:25)
[2018-07-22] MEDS: MULTIVIT W/MINERALS 1 TAB TABLET GT SCH (09:39)
[2018-07-22] MEDS: ACETAMINOPHEN 650 MG/20 ML UDC- SA PATIENTS-PAIN ONLY GT SCH ×2 (09:39→20:40)
[2018-07-22] MEDS: ACIDOPHILUS/BULGARICUS 1 EACH TAB.CHEW GT SCH ×2 (09:39→17:25)
[2018-07-22] MEDS: ASCORBIC ACID 500 MG TABLET GT SCH (09:39)
[2018-07-22] MEDS: LEVETIRACETAM SOL (5 ML) 100 MG/ML UDC GT SCH ×2 (09:39→20:40)
[2018-07-22] MEDS: FERROUS SULFATE - FOR SA ONLY 330 MG/7.5 ML UDC GT SCH (09:39)
[2018-07-22] MEDS: ZINC SULFATE 220 MG CAPSULE GT SCH (09:39)
[2018-07-22] MEDS: Z GUARD REMEDY 2 OZ OINT TP SCH ×2 (10:15→20:41)
[2018-07-22] MEDS: HYDROGEN PEROXIDE 480 ML BOTTLE TP SCH ×2 (10:15→20:41)
[2018-07-22] MEDS: THERAHONEY GEL 1.5 OZ TUBE TP SCH ×2 (10:15→20:41)
[2018-07-22 12:48] VITALS: BP 138/91
[2018-07-22 18:17] VITALS: BP 120/74
[2018-07-22 20:24] VITALS: BP 106/56
[2018-07-22] MEDS: ENOXAPARIN SODIUM 40 MG/0.4 ML DISP.SYRIN SQ SCH (20:41)
--- NOTE | 2018-07-22 21:12 | NUR ---
RT PATIENT WAS RECEIVED ON COOL AEROSOL. AMBU BAG/BACK UP TRACH @ BEDSIDE. Q6 BREATHING TX GIVEN PER MD ORDERS WITH NO ADVERSE REACTION NOTED. SUCTION DONE PRN. TRACH PATENT AND SECURED. NO RESPIRATORY DISTRESS NOTED AT THIS TIME. WILL CONTINUE TO MONITOR PATIENT Addendum: 07/22/18 at 2112 by SHYANN BARRETT RT Amended: Links added.
[2018-07-22] MEDS: ATORVASTATIN 10 MG TABLET GT SCH (21:54)
[2018-07-22] MEDS: INSULIN GLARGINE, 100 UNIT/ML CARTRIDGE SQ SCH (21:55)
[2018-07-23] MEDS: DILTIAZEM HCL 30 MG TABLET GT SCH ×4 (00:38→17:37)
[2018-07-23] MEDS: BLOOD SUGAR DIAGNOSTIC 1 EACH STRIP IN SCH ×4 (00:38→17:37)
[2018-07-23] MEDS: INSULIN ASPART/LISPRO 100 UNIT/ML CARTRIDGE SQ PRN ×4 (00:39→17:37)
[2018-07-23 00:50] VITALS: BP 110/61
[2018-07-23] MEDS: IPRATROPIUM NEB FS 0.5 MG/2.5 ML AMPUL.NEB NEB SCH ×4 (01:31→19:59)
[2018-07-23] MEDS: ALBUTEROL FS 2.5 MG/0.5 ML VIAL.NEB NEB SCH ×4 (01:31→19:59)
[2018-07-23] MEDS: GLUCERNA 1.2 1,000 ML BOTTLE GT PRN (05:19)
[2018-07-23] MEDS: PANTOPRAZOLE 40 MG/PACK PACK GT SCH (05:21)
[2018-07-23 07:00] VITALS: BP 98/49
[2018-07-23 07:43] VITALS: BP 108/59
[2018-07-23] MEDS: DOCUSATE SODIUM LIQ 100 MG/10 ML UDC GT SCH ×2 (08:54→17:36)
[2018-07-23] MEDS: VALSARTAN 80 MG TABLET GT SCH (08:54)
[2018-07-23] MEDS: ACIDOPHILUS/BULGARICUS 1 EACH TAB.CHEW GT SCH ×2 (08:55→17:36)
[2018-07-23] MEDS: MULTIVIT W/MINERALS 1 TAB TABLET GT SCH (08:55)
[2018-07-23] MEDS: LEVETIRACETAM SOL (5 ML) 100 MG/ML UDC GT SCH ×2 (08:55→20:42)
[2018-07-23] MEDS: FERROUS SULFATE - FOR SA ONLY 330 MG/7.5 ML UDC GT SCH (08:55)
[2018-07-23] MEDS: HYDROGEN PEROXIDE 480 ML BOTTLE TP SCH ×2 (08:56→20:45)
[2018-07-23] MEDS: Z GUARD REMEDY 2 OZ OINT TP SCH ×2 (08:56→20:45)
[2018-07-23] MEDS: ZINC SULFATE 220 MG CAPSULE GT SCH (08:56)
[2018-07-23] MEDS: THERAHONEY GEL 1.5 OZ TUBE TP SCH ×2 (08:56→20:45)
[2018-07-23] MEDS: ASCORBIC ACID 500 MG TABLET GT SCH (08:56)
[2018-07-23] MEDS: ACETAMINOPHEN 650 MG/20 ML UDC- SA PATIENTS-PAIN ONLY GT SCH ×2 (08:56→20:43)
--- NOTE | 2018-07-23 11:43 | NUR ---
ORACIO communicated to pt. daughter Kelly about IDT mtg this Monday07/27/2018
[2018-07-23 12:00] VITALS: BP 141/88
--- NOTE | 2018-07-23 18:30 | NUR ---
Seen and examined by Kennedi Bender NP, no new order given.
[2018-07-23 19:05] VITALS: BP 133/75
[2018-07-23 20:39] VITALS: BP 116/66
[2018-07-23] MEDS: ENOXAPARIN SODIUM 40 MG/0.4 ML DISP.SYRIN SQ SCH (20:45)
[2018-07-23] MEDS: ATORVASTATIN 10 MG TABLET GT SCH (21:26)
[2018-07-23] MEDS: INSULIN GLARGINE, 100 UNIT/ML CARTRIDGE SQ SCH (21:27)
[2018-07-24] MEDS: IPRATROPIUM NEB FS 0.5 MG/2.5 ML AMPUL.NEB NEB SCH ×4 (01:16→20:04)
[2018-07-24] MEDS: ALBUTEROL FS 2.5 MG/0.5 ML VIAL.NEB NEB SCH ×4 (01:16→20:04)
[2018-07-24 01:20] VITALS: BP 109/61
[2018-07-24] MEDS: GLUCERNA 1.2 1,000 ML BOTTLE GT PRN ×2 (01:21→17:08)
[2018-07-24] MEDS: INSULIN ASPART/LISPRO 100 UNIT/ML CARTRIDGE SQ PRN ×4 (01:25→17:24)
[2018-07-24] MEDS: DILTIAZEM HCL 30 MG TABLET GT SCH ×4 (06:05→17:07)
[2018-07-24] MEDS: PANTOPRAZOLE 40 MG/PACK PACK GT SCH (06:05)
[2018-07-24] MEDS: BLOOD SUGAR DIAGNOSTIC 1 EACH STRIP IN SCH ×4 (06:05→17:22)
[2018-07-24 06:38] VITALS: BP 104/62
[2018-07-24 07:31] VITALS: BP 98/55
[2018-07-24] MEDS: VALSARTAN 80 MG TABLET GT SCH (09:00)
--- NOTE | 2018-07-24 09:00 | NUR ---
Seen and examined by Dr. Capone, no new order given.
[2018-07-24] MEDS: DOCUSATE SODIUM LIQ 100 MG/10 ML UDC GT SCH ×2 (09:26→17:07)
[2018-07-24] MEDS: MULTIVIT W/MINERALS 1 TAB TABLET GT SCH (09:27)
[2018-07-24] MEDS: ACIDOPHILUS/BULGARICUS 1 EACH TAB.CHEW GT SCH ×2 (09:27→17:07)
[2018-07-24] MEDS: FERROUS SULFATE - FOR SA ONLY 330 MG/7.5 ML UDC GT SCH (09:27)
[2018-07-24] MEDS: LEVETIRACETAM SOL (5 ML) 100 MG/ML UDC GT SCH ×2 (09:27→20:40)
[2018-07-24] MEDS: Z GUARD REMEDY 2 OZ OINT TP SCH ×2 (09:28→20:42)
[2018-07-24] MEDS: ACETAMINOPHEN 650 MG/20 ML UDC- SA PATIENTS-PAIN ONLY GT SCH ×2 (09:28→20:40)
[2018-07-24] MEDS: ZINC SULFATE 220 MG CAPSULE GT SCH (09:28)
[2018-07-24] MEDS: HYDROGEN PEROXIDE 480 ML BOTTLE TP SCH ×2 (09:28→20:42)
[2018-07-24] MEDS: ASCORBIC ACID 500 MG TABLET GT SCH (09:28)
[2018-07-24] MEDS: THERAHONEY GEL 1.5 OZ TUBE TP SCH ×2 (09:29→20:42)
[2018-07-24 16:06] VITALS: BP 118/75
[2018-07-24 18:57] VITALS: BP 135/89
[2018-07-24] MEDS: ENOXAPARIN SODIUM 40 MG/0.4 ML DISP.SYRIN SQ SCH (20:42)
[2018-07-24 20:56] VITALS: BP 123/61
[2018-07-24] MEDS: ATORVASTATIN 10 MG TABLET GT SCH (21:38)
[2018-07-24] MEDS: INSULIN GLARGINE, 100 UNIT/ML CARTRIDGE SQ SCH (21:39)
[2018-07-25 00:35] VITALS: BP 120/60
[2018-07-25] MEDS: DILTIAZEM HCL 30 MG TABLET GT SCH ×4 (00:37→17:42)
[2018-07-25] MEDS: BLOOD SUGAR DIAGNOSTIC 1 EACH STRIP IN SCH ×4 (00:37→17:42)
[2018-07-25] MEDS: INSULIN ASPART/LISPRO 100 UNIT/ML CARTRIDGE SQ PRN ×4 (00:38→17:42)
[2018-07-25] MEDS: ALBUTEROL FS 2.5 MG/0.5 ML VIAL.NEB NEB SCH ×4 (01:12→20:08)
[2018-07-25] MEDS: IPRATROPIUM NEB FS 0.5 MG/2.5 ML AMPUL.NEB NEB SCH ×4 (01:12→20:08)
[2018-07-25] MEDS: GLUCERNA 1.2 1,000 ML BOTTLE GT PRN (04:16)
[2018-07-25] MEDS: PANTOPRAZOLE 40 MG/PACK PACK GT SCH (06:19)
[2018-07-25 06:54] VITALS: BP 112/64
[2018-07-25 08:03] VITALS: BP 118/71
[2018-07-25] MEDS: ACIDOPHILUS/BULGARICUS 1 EACH TAB.CHEW GT SCH ×2 (09:57→17:42)
[2018-07-25] MEDS: LEVETIRACETAM SOL (5 ML) 100 MG/ML UDC GT SCH ×2 (09:57→21:31)
[2018-07-25] MEDS: FERROUS SULFATE - FOR SA ONLY 330 MG/7.5 ML UDC GT SCH (09:57)
[2018-07-25] MEDS: VALSARTAN 80 MG TABLET GT SCH (09:57)
[2018-07-25] MEDS: MULTIVIT W/MINERALS 1 TAB TABLET GT SCH (09:57)
[2018-07-25] MEDS: DOCUSATE SODIUM LIQ 100 MG/10 ML UDC GT SCH ×2 (09:57→17:42)
[2018-07-25] MEDS: ASCORBIC ACID 500 MG TABLET GT SCH (09:58)
[2018-07-25] MEDS: ZINC SULFATE 220 MG CAPSULE GT SCH (09:58)
[2018-07-25] MEDS: ACETAMINOPHEN 650 MG/20 ML UDC- SA PATIENTS-PAIN ONLY GT SCH ×2 (09:58→21:32)
[2018-07-25] MEDS: Z GUARD REMEDY 2 OZ OINT TP SCH ×2 (11:00→21:33)
[2018-07-25] MEDS: HYDROGEN PEROXIDE 480 ML BOTTLE TP SCH ×2 (11:00→21:33)
[2018-07-25] MEDS: THERAHONEY GEL 1.5 OZ TUBE TP SCH ×2 (11:00→21:33)
[2018-07-25 12:00] VITALS: BP 100/60
[2018-07-25 18:00] VITALS: BP 134/76
[2018-07-25 20:29] VITALS: BP 118/58
[2018-07-25] MEDS: ENOXAPARIN SODIUM 40 MG/0.4 ML DISP.SYRIN SQ SCH (21:32)
[2018-07-25] MEDS: ATORVASTATIN 10 MG TABLET GT SCH (21:33)
[2018-07-25] MEDS: INSULIN GLARGINE, 100 UNIT/ML CARTRIDGE SQ SCH (21:34)
[2018-07-26] MEDS: BLOOD SUGAR DIAGNOSTIC 1 EACH STRIP IN SCH ×5 (00:03→23:54)
[2018-07-26] MEDS: DILTIAZEM HCL 30 MG TABLET GT SCH ×5 (00:03→23:54)
[2018-07-26] MEDS: INSULIN ASPART/LISPRO 100 UNIT/ML CARTRIDGE SQ PRN ×4 (00:05→23:55)
[2018-07-26 00:20] VITALS: BP 115/62
[2018-07-26] MEDS: IPRATROPIUM NEB FS 0.5 MG/2.5 ML AMPUL.NEB NEB SCH ×4 (02:29→20:04)
[2018-07-26] MEDS: ALBUTEROL FS 2.5 MG/0.5 ML VIAL.NEB NEB SCH ×4 (02:29→20:04)
[2018-07-26] MEDS: GLUCERNA 1.2 1,000 ML BOTTLE GT PRN ×2 (06:00→17:03)
[2018-07-26] MEDS: PANTOPRAZOLE 40 MG/PACK PACK GT SCH (06:00)
[2018-07-26 06:44] VITALS: BP 138/73
[2018-07-26 07:34] VITALS: BP 108/65
[2018-07-26] MEDS: DOCUSATE SODIUM LIQ 100 MG/10 ML UDC GT SCH ×2 (08:56→17:03)
[2018-07-26] MEDS: MULTIVIT W/MINERALS 1 TAB TABLET GT SCH (08:56)
[2018-07-26] MEDS: FERROUS SULFATE - FOR SA ONLY 330 MG/7.5 ML UDC GT SCH (08:56)
[2018-07-26] MEDS: LEVETIRACETAM SOL (5 ML) 100 MG/ML UDC GT SCH ×2 (08:56→21:07)
[2018-07-26] MEDS: VALSARTAN 80 MG TABLET GT SCH (08:56)
[2018-07-26] MEDS: ACIDOPHILUS/BULGARICUS 1 EACH TAB.CHEW GT SCH ×2 (08:56→17:03)
[2018-07-26] MEDS: ZINC SULFATE 220 MG CAPSULE GT SCH (08:57)
[2018-07-26] MEDS: ASCORBIC ACID 500 MG TABLET GT SCH (08:57)
[2018-07-26] MEDS: ACETAMINOPHEN 650 MG/20 ML UDC- SA PATIENTS-PAIN ONLY GT SCH ×2 (08:57→21:07)
[2018-07-26] MEDS: Z GUARD REMEDY 2 OZ OINT TP SCH ×2 (09:30→21:11)
[2018-07-26] MEDS: HYDROGEN PEROXIDE 480 ML BOTTLE TP SCH ×2 (09:30→21:11)
[2018-07-26] MEDS: THERAHONEY GEL 1.5 OZ TUBE TP SCH ×2 (10:30→21:57)
[2018-07-26 12:00] VITALS: BP 140/86
[2018-07-26 18:00] VITALS: BP 139/66
[2018-07-26 19:24] LABS: CALCIUM, SERUM 9.2 mg/dL (8.5-10.1); CREATININE 0.8 mg/dL (0.6-1.3); MAGNESIUM 2.2 mg/dL (1.8-2.4); PHOSPHORUS 3.3 mg/dL (2.5-4.9); POTASSIUM 4.8 mmol/L (3.5-5.1)
[2018-07-26 20:49] VITALS: BP 135/82
[2018-07-26 21:10] LABS: BASOPHILS % (AUTO) 0.6 % (0.0-2.0); EOSINOPHILS % (AUTO) 3.3 % (0.0-6.0); HEMATOCRIT 33 % (33-45); HEMOGLOBIN 10.7 g/dL (11.5-14.8); LYMPHOCYTES # (AUTO) 2.3 /CMM (0.8-4.8); LYMPHOCYTES % (AUTO) 33.4 % (20.0-44.0); MEAN CORPUSCULAR HGB CONC 33 g/dl (31.0-36.0); MEAN CORPUSCULAR VOLUME 92 fL (82-100); MONOCYTES # (AUTO) 0.6 /CMM (0.1-1.30); NEUTROPHILS # (AUTO) 3.6 /CMM (1.8-8.9); NEUTROPHILS % (AUTO) 53.7 % (43.0-81.0); PLATELET COUNT (AUTO) 367 /CMM (150-450); RED BLOOD CELL COUNT(AUTO) 3.53 MIL/uL (4.0-5.2); WHITE BLOOD COUNT (AUTO) 6.8 K/uL (4.3-11.0)
[2018-07-26] MEDS: ATORVASTATIN 10 MG TABLET GT SCH (21:11)
[2018-07-26] MEDS: INSULIN GLARGINE, 100 UNIT/ML CARTRIDGE SQ SCH (21:11)
[2018-07-26] MEDS: ENOXAPARIN SODIUM 40 MG/0.4 ML DISP.SYRIN SQ SCH (21:11)
[2018-07-27 00:10] VITALS: BP 138/73
[2018-07-27] MEDS: IPRATROPIUM NEB FS 0.5 MG/2.5 ML AMPUL.NEB NEB SCH ×4 (01:45→19:49)
[2018-07-27] MEDS: ALBUTEROL FS 2.5 MG/0.5 ML VIAL.NEB NEB SCH ×4 (01:45→19:49)
[2018-07-27] MEDS: PANTOPRAZOLE 40 MG/PACK PACK GT SCH (05:57)
[2018-07-27] MEDS: DILTIAZEM HCL 30 MG TABLET GT SCH ×3 (05:57→17:37)
[2018-07-27] MEDS: BLOOD SUGAR DIAGNOSTIC 1 EACH STRIP IN SCH ×3 (05:57→17:40)
[2018-07-27] MEDS: INSULIN ASPART/LISPRO 100 UNIT/ML CARTRIDGE SQ PRN ×2 (05:58→13:00)
[2018-07-27 06:28] VITALS: BP 105/54
[2018-07-27 07:35] VITALS: BP 134/74
[2018-07-27] MEDS: FERROUS SULFATE - FOR SA ONLY 330 MG/7.5 ML UDC GT SCH (09:55)
[2018-07-27] MEDS: DOCUSATE SODIUM LIQ 100 MG/10 ML UDC GT SCH ×2 (09:55→17:36)
[2018-07-27] MEDS: LEVETIRACETAM SOL (5 ML) 100 MG/ML UDC GT SCH ×2 (09:55→21:07)
[2018-07-27] MEDS: ACIDOPHILUS/BULGARICUS 1 EACH TAB.CHEW GT SCH ×2 (09:55→17:36)
[2018-07-27] MEDS: MULTIVIT W/MINERALS 1 TAB TABLET GT SCH (09:55)
[2018-07-27] MEDS: ACETAMINOPHEN 650 MG/20 ML UDC- SA PATIENTS-PAIN ONLY GT SCH ×2 (09:56→21:08)
[2018-07-27] MEDS: ZINC SULFATE 220 MG CAPSULE GT SCH (09:56)
[2018-07-27] MEDS: ASCORBIC ACID 500 MG TABLET GT SCH (09:56)
[2018-07-27] MEDS: VALSARTAN 80 MG TABLET GT SCH (09:57)
[2018-07-27] MEDS: HYDROGEN PEROXIDE 480 ML BOTTLE TP SCH ×2 (10:30→21:11)
[2018-07-27] MEDS: THERAHONEY GEL 1.5 OZ TUBE TP SCH ×2 (10:30→21:11)
[2018-07-27] MEDS: Z GUARD REMEDY 2 OZ OINT TP SCH ×2 (10:30→21:11)
[2018-07-27 12:00] VITALS: BP 132/77
[2018-07-27] MEDS: GLUCERNA 1.2 1,000 ML BOTTLE GT PRN (12:59)
--- NOTE | 2018-07-27 16:26 | NUR ---
INTERDISCIPLINARY TEAM CONFERENCE (IDT) was held today. Resident's family member were not able to attend today's IDT meeting. Dr. Capone and the interdisciplinary team reviewed the current plan of care in detail. Orders as well as treatment and medications were reviewed. .No new orders were given.
[2018-07-27 18:00] VITALS: BP 141/85
[2018-07-27 19:54] VITALS: BP 131/74
[2018-07-27] MEDS: ATORVASTATIN 10 MG TABLET GT SCH (21:12)
[2018-07-27] MEDS: ENOXAPARIN SODIUM 40 MG/0.4 ML DISP.SYRIN SQ SCH (21:21)
[2018-07-27] MEDS: INSULIN GLARGINE, 100 UNIT/ML CARTRIDGE SQ SCH (21:22)
[2018-07-28] MEDS: DILTIAZEM HCL 30 MG TABLET GT SCH ×5 (00:05→23:52)
[2018-07-28] MEDS: BLOOD SUGAR DIAGNOSTIC 1 EACH STRIP IN SCH ×5 (00:05→23:52)
[2018-07-28] MEDS: INSULIN ASPART/LISPRO 100 UNIT/ML CARTRIDGE SQ PRN ×5 (00:08→23:53)
[2018-07-28 00:29] VITALS: BP 136/67
[2018-07-28] MEDS: ALBUTEROL FS 2.5 MG/0.5 ML VIAL.NEB NEB SCH ×4 (02:20→19:48)
[2018-07-28] MEDS: IPRATROPIUM NEB FS 0.5 MG/2.5 ML AMPUL.NEB NEB SCH ×4 (02:20→19:48)
[2018-07-28] MEDS: PANTOPRAZOLE 40 MG/PACK PACK GT SCH (05:50)
[2018-07-28] MEDS: GLUCERNA 1.2 1,000 ML BOTTLE GT PRN ×2 (05:51→23:53)
[2018-07-28 06:22] VITALS: BP 104/62
[2018-07-28 08:06] VITALS: BP 103/50
[2018-07-28] MEDS: DOCUSATE SODIUM LIQ 100 MG/10 ML UDC GT SCH ×2 (09:22→17:00)
[2018-07-28] MEDS: FERROUS SULFATE - FOR SA ONLY 330 MG/7.5 ML UDC GT SCH (09:22)
[2018-07-28] MEDS: VALSARTAN 80 MG TABLET GT SCH (09:22)
[2018-07-28] MEDS: LEVETIRACETAM SOL (5 ML) 100 MG/ML UDC GT SCH ×2 (09:22→21:14)
[2018-07-28] MEDS: ACETAMINOPHEN 650 MG/20 ML UDC- SA PATIENTS-PAIN ONLY GT SCH ×2 (09:23→21:14)
[2018-07-28] MEDS: ACIDOPHILUS/BULGARICUS 1 EACH TAB.CHEW GT SCH ×2 (09:23→17:00)
[2018-07-28] MEDS: ASCORBIC ACID 500 MG TABLET GT SCH (09:23)
[2018-07-28] MEDS: ZINC SULFATE 220 MG CAPSULE GT SCH (09:23)
[2018-07-28] MEDS: MULTIVIT W/MINERALS 1 TAB TABLET GT SCH (09:23)
[2018-07-28] MEDS: THERAHONEY GEL 1.5 OZ TUBE TP SCH ×2 (10:00→21:15)
[2018-07-28] MEDS: HYDROGEN PEROXIDE 480 ML BOTTLE TP SCH ×2 (10:00→21:15)
[2018-07-28] MEDS: Z GUARD REMEDY 2 OZ OINT TP SCH ×2 (10:00→21:15)
[2018-07-28 12:55] VITALS: BP 132/77
[2018-07-28 18:00] VITALS: BP 132/72
[2018-07-28 20:20] VITALS: BP 122/71
[2018-07-28] MEDS: ENOXAPARIN SODIUM 40 MG/0.4 ML DISP.SYRIN SQ SCH (21:15)
[2018-07-28] MEDS: ATORVASTATIN 10 MG TABLET GT SCH (21:15)
[2018-07-28] MEDS: INSULIN GLARGINE, 100 UNIT/ML CARTRIDGE SQ SCH (21:16)
[2018-07-29] VITALS: BP 131/69
[2018-07-29] MEDS: IPRATROPIUM NEB FS 0.5 MG/2.5 ML AMPUL.NEB NEB SCH ×4 (02:16→19:58)
[2018-07-29] MEDS: ALBUTEROL FS 2.5 MG/0.5 ML VIAL.NEB NEB SCH ×4 (02:16→19:58)
[2018-07-29] MEDS: PANTOPRAZOLE 40 MG/PACK PACK GT SCH (05:39)
[2018-07-29] MEDS: BLOOD SUGAR DIAGNOSTIC 1 EACH STRIP IN SCH ×3 (05:39→17:27)
[2018-07-29] MEDS: DILTIAZEM HCL 30 MG TABLET GT SCH ×3 (05:39→17:27)
[2018-07-29] MEDS: INSULIN ASPART/LISPRO 100 UNIT/ML CARTRIDGE SQ PRN ×3 (05:40→17:31)
[2018-07-29 06:00] VITALS: BP 119/72
[2018-07-29 07:36] VITALS: BP 141/74
[2018-07-29] MEDS: LEVETIRACETAM SOL (5 ML) 100 MG/ML UDC GT SCH ×2 (09:00→21:11)
[2018-07-29] MEDS: Z GUARD REMEDY 2 OZ OINT TP SCH ×2 (09:00→21:12)
[2018-07-29] MEDS: THERAHONEY GEL 1.5 OZ TUBE TP SCH ×2 (09:00→21:12)
[2018-07-29] MEDS: ACIDOPHILUS/BULGARICUS 1 EACH TAB.CHEW GT SCH ×2 (09:00→17:27)
[2018-07-29] MEDS: FERROUS SULFATE - FOR SA ONLY 330 MG/7.5 ML UDC GT SCH (09:00)
[2018-07-29] MEDS: HYDROGEN PEROXIDE 480 ML BOTTLE TP SCH ×2 (09:00→21:12)
[2018-07-29] MEDS: ZINC SULFATE 220 MG CAPSULE GT SCH (09:00)
[2018-07-29] MEDS: ACETAMINOPHEN 650 MG/20 ML UDC- SA PATIENTS-PAIN ONLY GT SCH ×2 (09:00→21:11)
[2018-07-29] MEDS: VALSARTAN 80 MG TABLET GT SCH (09:00)
[2018-07-29] MEDS: MULTIVIT W/MINERALS 1 TAB TABLET GT SCH (09:00)
[2018-07-29] MEDS: DOCUSATE SODIUM LIQ 100 MG/10 ML UDC GT SCH ×2 (09:00→17:27)
[2018-07-29] MEDS: ASCORBIC ACID 500 MG TABLET GT SCH (09:00)
[2018-07-29 15:21] VITALS: BP 105/65
[2018-07-29] MEDS: GLUCERNA 1.2 1,000 ML BOTTLE GT PRN (17:34)
[2018-07-29 18:16] VITALS: BP 133/80
[2018-07-29 20:01] VITALS: BP 122/58
[2018-07-29] MEDS: ENOXAPARIN SODIUM 40 MG/0.4 ML DISP.SYRIN SQ SCH (21:11)
[2018-07-29] MEDS: ATORVASTATIN 10 MG TABLET GT SCH (21:12)
[2018-07-29] MEDS: INSULIN GLARGINE, 100 UNIT/ML CARTRIDGE SQ SCH (21:56)
[2018-07-30] MEDS: DILTIAZEM HCL 30 MG TABLET GT SCH ×5 (00:31→23:52)
[2018-07-30] MEDS: INSULIN ASPART/LISPRO 100 UNIT/ML CARTRIDGE SQ PRN ×5 (00:31→23:53)
[2018-07-30] MEDS: BLOOD SUGAR DIAGNOSTIC 1 EACH STRIP IN SCH ×5 (00:31→23:52)
[2018-07-30] MEDS: ALBUTEROL FS 2.5 MG/0.5 ML VIAL.NEB NEB SCH ×4 (01:38→19:31)
[2018-07-30] MEDS: IPRATROPIUM NEB FS 0.5 MG/2.5 ML AMPUL.NEB NEB SCH ×4 (01:38→19:31)
[2018-07-30 03:26] VITALS: BP 128/74
[2018-07-30 06:13] VITALS: BP 130/72
[2018-07-30] MEDS: PANTOPRAZOLE 40 MG/PACK PACK GT SCH (06:15)
[2018-07-30 08:52] VITALS: BP 105/69
[2018-07-30] MEDS: VALSARTAN 80 MG TABLET GT SCH (09:00)
[2018-07-30] MEDS: DOCUSATE SODIUM LIQ 100 MG/10 ML UDC GT SCH ×2 (09:22→17:00)
[2018-07-30] MEDS: MULTIVIT W/MINERALS 1 TAB TABLET GT SCH (09:23)
[2018-07-30] MEDS: FERROUS SULFATE - FOR SA ONLY 330 MG/7.5 ML UDC GT SCH (09:23)
[2018-07-30] MEDS: ASCORBIC ACID 500 MG TABLET GT SCH (09:23)
[2018-07-30] MEDS: HYDROGEN PEROXIDE 480 ML BOTTLE TP SCH ×2 (09:23→21:25)
[2018-07-30] MEDS: ZINC SULFATE 220 MG CAPSULE GT SCH (09:23)
[2018-07-30] MEDS: Z GUARD REMEDY 2 OZ OINT TP SCH ×2 (09:23→21:25)
[2018-07-30] MEDS: LEVETIRACETAM SOL (5 ML) 100 MG/ML UDC GT SCH ×2 (09:23→21:23)
[2018-07-30] MEDS: ACIDOPHILUS/BULGARICUS 1 EACH TAB.CHEW GT SCH ×2 (09:23→17:00)
[2018-07-30] MEDS: ACETAMINOPHEN 650 MG/20 ML UDC- SA PATIENTS-PAIN ONLY GT SCH ×2 (09:23→21:23)
[2018-07-30] MEDS: THERAHONEY GEL 1.5 OZ TUBE TP SCH ×2 (09:24→21:25)
[2018-07-30 12:52] VITALS: BP 142/78
[2018-07-30] MEDS: GLUCERNA 1.2 1,000 ML BOTTLE GT PRN (14:33)
[2018-07-30 19:16] VITALS: BP 148/68
[2018-07-30 20:11] VITALS: BP 112/51
[2018-07-30] MEDS: ATORVASTATIN 10 MG TABLET GT SCH (21:25)
[2018-07-30] MEDS: ENOXAPARIN SODIUM 40 MG/0.4 ML DISP.SYRIN SQ SCH (21:25)
[2018-07-30] MEDS: INSULIN GLARGINE, 100 UNIT/ML CARTRIDGE SQ SCH (21:27)
[2018-07-31 00:10] VITALS: BP 133/68
[2018-07-31] MEDS: IPRATROPIUM NEB FS 0.5 MG/2.5 ML AMPUL.NEB NEB SCH ×4 (00:54→19:40)
[2018-07-31] MEDS: ALBUTEROL FS 2.5 MG/0.5 ML VIAL.NEB NEB SCH ×4 (00:54→19:40)
[2018-07-31 06:16] VITALS: BP 128/67
[2018-07-31] MEDS: PANTOPRAZOLE 40 MG/PACK PACK GT SCH (06:19)
[2018-07-31] MEDS: BLOOD SUGAR DIAGNOSTIC 1 EACH STRIP IN SCH ×3 (06:19→18:03)
[2018-07-31] MEDS: DILTIAZEM HCL 30 MG TABLET GT SCH ×3 (06:19→18:03)
[2018-07-31] MEDS: INSULIN ASPART/LISPRO 100 UNIT/ML CARTRIDGE SQ PRN ×3 (06:20→18:04)
[2018-07-31 07:42] VITALS: BP 144/88
[2018-07-31] MEDS: THERAHONEY GEL 1.5 OZ TUBE TP SCH ×2 (09:00→21:30)
[2018-07-31] MEDS: MULTIVIT W/MINERALS 1 TAB TABLET GT SCH (09:00)
[2018-07-31] MEDS: HYDROGEN PEROXIDE 480 ML BOTTLE TP SCH ×2 (09:00→21:30)
[2018-07-31] MEDS: VALSARTAN 80 MG TABLET GT SCH (09:00)
[2018-07-31] MEDS: LEVETIRACETAM SOL (5 ML) 100 MG/ML UDC GT SCH ×2 (09:00→21:29)
[2018-07-31] MEDS: ZINC SULFATE 220 MG CAPSULE GT SCH (09:00)
[2018-07-31] MEDS: FERROUS SULFATE - FOR SA ONLY 330 MG/7.5 ML UDC GT SCH (09:00)
[2018-07-31] MEDS: ASCORBIC ACID 500 MG TABLET GT SCH (09:00)
[2018-07-31] MEDS: ACETAMINOPHEN 650 MG/20 ML UDC- SA PATIENTS-PAIN ONLY GT SCH ×2 (09:00→21:29)
[2018-07-31] MEDS: DOCUSATE SODIUM LIQ 100 MG/10 ML UDC GT SCH ×2 (09:00→17:00)
[2018-07-31] MEDS: Z GUARD REMEDY 2 OZ OINT TP SCH ×2 (09:00→21:30)
[2018-07-31] MEDS: ACIDOPHILUS/BULGARICUS 1 EACH TAB.CHEW GT SCH ×2 (09:00→17:00)
[2018-07-31 15:36] VITALS: BP 128/78
[2018-07-31 18:04] VITALS: BP 131/78
[2018-07-31 21:12] VITALS: BP 141/81
[2018-07-31] MEDS: ATORVASTATIN 10 MG TABLET GT SCH (21:30)
[2018-07-31] MEDS: ENOXAPARIN SODIUM 40 MG/0.4 ML DISP.SYRIN SQ SCH (21:30)
[2018-07-31] MEDS: INSULIN GLARGINE, 100 UNIT/ML CARTRIDGE SQ SCH (21:32)
[2018-08-01] MEDS: BLOOD SUGAR DIAGNOSTIC 1 EACH STRIP IN SCH ×5 (00:01→23:53)
[2018-08-01] MEDS: DILTIAZEM HCL 30 MG TABLET GT SCH ×5 (00:01→23:53)
[2018-08-01] MEDS: INSULIN ASPART/LISPRO 100 UNIT/ML CARTRIDGE SQ PRN ×5 (00:02→23:55)
[2018-08-01 00:30] VITALS: BP 136/79
[2018-08-01] MEDS: IPRATROPIUM NEB FS 0.5 MG/2.5 ML AMPUL.NEB NEB SCH ×4 (01:10→20:01)
[2018-08-01] MEDS: ALBUTEROL FS 2.5 MG/0.5 ML VIAL.NEB NEB SCH ×4 (01:11→20:01)
[2018-08-01 06:23] VITALS: BP 122/68
[2018-08-01] MEDS: PANTOPRAZOLE 40 MG/PACK PACK GT SCH (06:25)
[2018-08-01 08:17] VITALS: BP 115/67
[2018-08-01] MEDS: DOCUSATE SODIUM LIQ 100 MG/10 ML UDC GT SCH ×2 (08:41→17:15)
[2018-08-01] MEDS: MULTIVIT W/MINERALS 1 TAB TABLET GT SCH (08:41)
[2018-08-01] MEDS: LEVETIRACETAM SOL (5 ML) 100 MG/ML UDC GT SCH ×2 (08:41→21:34)
[2018-08-01] MEDS: FERROUS SULFATE - FOR SA ONLY 330 MG/7.5 ML UDC GT SCH (08:41)
[2018-08-01] MEDS: ACIDOPHILUS/BULGARICUS 1 EACH TAB.CHEW GT SCH ×2 (08:41→17:15)
[2018-08-01] MEDS: VALSARTAN 80 MG TABLET GT SCH (08:41)
[2018-08-01] MEDS: ASCORBIC ACID 500 MG TABLET GT SCH (08:42)
[2018-08-01] MEDS: ACETAMINOPHEN 650 MG/20 ML UDC- SA PATIENTS-PAIN ONLY GT SCH ×2 (08:42→21:34)
[2018-08-01] MEDS: ZINC SULFATE 220 MG CAPSULE GT SCH (08:42)
[2018-08-01] MEDS: HYDROGEN PEROXIDE 480 ML BOTTLE TP SCH ×2 (09:42→21:35)
[2018-08-01] MEDS: THERAHONEY GEL 1.5 OZ TUBE TP SCH (09:42)
[2018-08-01] MEDS: Z GUARD REMEDY 2 OZ OINT TP SCH ×2 (09:42→21:35)
[2018-08-01 12:00] VITALS: BP 100/60
[2018-08-01] MEDS: GLUCERNA 1.2 1,000 ML BOTTLE GT PRN (17:08)
[2018-08-01 18:30] VITALS: BP 145/70
[2018-08-01 20:23] VITALS: BP 127/68
[2018-08-01] MEDS: ENOXAPARIN SODIUM 40 MG/0.4 ML DISP.SYRIN SQ SCH (21:35)
[2018-08-01] MEDS: ATORVASTATIN 10 MG TABLET GT SCH (21:35)
[2018-08-01] MEDS: INSULIN GLARGINE, 100 UNIT/ML CARTRIDGE SQ SCH (21:36)
[2018-08-02 00:35] VITALS: BP 132/74
[2018-08-02] MEDS: IPRATROPIUM NEB FS 0.5 MG/2.5 ML AMPUL.NEB NEB SCH ×4 (01:38→19:30)
[2018-08-02] MEDS: ALBUTEROL FS 2.5 MG/0.5 ML VIAL.NEB NEB SCH ×4 (01:38→19:30)
[2018-08-02] MEDS: PANTOPRAZOLE 40 MG/PACK PACK GT SCH (05:50)
[2018-08-02] MEDS: BLOOD SUGAR DIAGNOSTIC 1 EACH STRIP IN SCH ×3 (05:50→18:06)
[2018-08-02] MEDS: DILTIAZEM HCL 30 MG TABLET GT SCH ×4 (05:50→23:58)
[2018-08-02] MEDS: INSULIN ASPART/LISPRO 100 UNIT/ML CARTRIDGE SQ PRN ×2 (05:54→12:36)
[2018-08-02 06:50] VITALS: BP 115/71
[2018-08-02 07:54] VITALS: BP 114/68
[2018-08-02] MEDS: DOCUSATE SODIUM LIQ 100 MG/10 ML UDC GT SCH ×2 (09:37→17:00)
[2018-08-02] MEDS: LEVETIRACETAM SOL (5 ML) 100 MG/ML UDC GT SCH ×2 (09:37→21:23)
[2018-08-02] MEDS: MULTIVIT W/MINERALS 1 TAB TABLET GT SCH (09:37)
[2018-08-02] MEDS: VALSARTAN 80 MG TABLET GT SCH (09:37)
[2018-08-02] MEDS: ACIDOPHILUS/BULGARICUS 1 EACH TAB.CHEW GT SCH ×2 (09:37→17:00)
[2018-08-02] MEDS: FERROUS SULFATE - FOR SA ONLY 330 MG/7.5 ML UDC GT SCH (09:37)
[2018-08-02] MEDS: ASCORBIC ACID 500 MG TABLET GT SCH (09:38)
[2018-08-02] MEDS: ACETAMINOPHEN 650 MG/20 ML UDC- SA PATIENTS-PAIN ONLY GT SCH ×2 (09:38→21:24)
[2018-08-02] MEDS: ZINC SULFATE 220 MG CAPSULE GT SCH (09:38)
[2018-08-02] MEDS: HYDROGEN PEROXIDE 480 ML BOTTLE TP SCH ×2 (10:10→21:24)
[2018-08-02] MEDS: Z GUARD REMEDY 2 OZ OINT TP SCH ×2 (10:10→21:24)
[2018-08-02] MEDS: THERAHONEY GEL 1.5 OZ TUBE TP SCH ×3 (10:10→21:25)
[2018-08-02 12:38] VITALS: BP 116/74
[2018-08-02] MEDS: GLUCERNA 1.2 1,000 ML BOTTLE GT PRN (12:44)
--- NOTE | 2018-08-02 16:17 | NUR ---
Asked Dr. Elliott Gomez to assessed treatment in patient's L buttock jimbo wound which appears cauliflower-like. The wound opening is getting smaller, current measurement (0.5x0.8x3cm). According to MD, continue with current treatment of Sharee with calcium alginate and apply Mycolog cream to periwound area. Order carried out. Resident's daughter Kelly notified of new order.
[2018-08-02 18:00] VITALS: BP 127/72
--- NOTE | 2018-08-02 19:30 | NUR ---
Seen by MILLY Bender no new order.
[2018-08-02 19:57] VITALS: BP 151/88
--- NOTE | 2018-08-02 19:59 | NUR ---
RT NOTE PT RECEIVED ON COOL AEROSOL 28% 5L. NO RESP DISTRESS OR SOB NOTED AT THIS TIME. PT SX'D, SMALL CLEAR THIN SECRETIONS. PT DOES NOT HAVE ANY BREATHING TX MEDS IN STOCK, WILL TRY TO ORDER. DIRECTOR CONSUMER AFFAIRS AND CHARGE NURSE ARE AWARE. AMBU BAG AND SPARE TRACH ARE AT BEDSIDE.
[2018-08-02] MEDS: NYSTATIN/TRIAMCIN 15 GM CREAM 15 GM TUBE TP SCH (21:00)
[2018-08-02] MEDS: ENOXAPARIN SODIUM 40 MG/0.4 ML DISP.SYRIN SQ SCH (21:24)
[2018-08-02] MEDS: INSULIN GLARGINE, 100 UNIT/ML CARTRIDGE SQ SCH (21:25)
[2018-08-02] MEDS: ATORVASTATIN 10 MG TABLET GT SCH (21:25)
[2018-08-02] MEDS: hydrALAZINE HCL 10 MG TABLET GT PRN (23:58)
[2018-08-03] VITALS: BP 113/69
[2018-08-03] MEDS: BLOOD SUGAR DIAGNOSTIC 1 EACH STRIP IN SCH ×4 (00:07→18:05)
[2018-08-03] MEDS: INSULIN ASPART/LISPRO 100 UNIT/ML CARTRIDGE SQ PRN ×4 (00:08→18:03)
[2018-08-03] MEDS: ALBUTEROL FS 2.5 MG/0.5 ML VIAL.NEB NEB SCH ×4 (01:12→20:09)
[2018-08-03] MEDS: IPRATROPIUM NEB FS 0.5 MG/2.5 ML AMPUL.NEB NEB SCH ×4 (01:12→20:08)
[2018-08-03] MEDS: DILTIAZEM HCL 30 MG TABLET GT SCH ×3 (05:46→18:05)
[2018-08-03] MEDS: PANTOPRAZOLE 40 MG/PACK PACK GT SCH (05:46)
[2018-08-03 06:00] VITALS: BP 138/82
[2018-08-03] MEDS: GLUCERNA 1.2 1,000 ML BOTTLE GT PRN (06:41)
[2018-08-03 07:31] VITALS: BP 127/70
[2018-08-03] MEDS: ASCORBIC ACID 500 MG TABLET GT SCH (09:56)
[2018-08-03] MEDS: FERROUS SULFATE - FOR SA ONLY 330 MG/7.5 ML UDC GT SCH (09:56)
[2018-08-03] MEDS: MULTIVIT W/MINERALS 1 TAB TABLET GT SCH (09:56)
[2018-08-03] MEDS: VALSARTAN 80 MG TABLET GT SCH (09:56)
[2018-08-03] MEDS: ACETAMINOPHEN 650 MG/20 ML UDC- SA PATIENTS-PAIN ONLY GT SCH ×2 (09:56→21:39)
[2018-08-03] MEDS: ACIDOPHILUS/BULGARICUS 1 EACH TAB.CHEW GT SCH ×2 (09:56→17:00)
[2018-08-03] MEDS: LEVETIRACETAM SOL (5 ML) 100 MG/ML UDC GT SCH ×2 (09:56→21:38)
[2018-08-03] MEDS: DOCUSATE SODIUM LIQ 100 MG/10 ML UDC GT SCH ×2 (09:56→17:00)
[2018-08-03] MEDS: ZINC SULFATE 220 MG CAPSULE GT SCH (09:57)
[2018-08-03] MEDS: Z GUARD REMEDY 2 OZ OINT TP SCH ×2 (10:30→21:39)
[2018-08-03] MEDS: NYSTATIN/TRIAMCIN 15 GM CREAM 15 GM TUBE TP SCH ×2 (10:30→21:39)
[2018-08-03] MEDS: THERAHONEY GEL 1.5 OZ TUBE TP SCH ×4 (10:30→21:42)
[2018-08-03] MEDS: HYDROGEN PEROXIDE 480 ML BOTTLE TP SCH ×2 (10:30→21:39)
[2018-08-03 12:44] VITALS: BP 124/74
[2018-08-03 18:00] VITALS: BP 131/67
[2018-08-03] MEDS: ENOXAPARIN SODIUM 40 MG/0.4 ML DISP.SYRIN SQ SCH (21:39)
[2018-08-03] MEDS: INSULIN GLARGINE, 100 UNIT/ML CARTRIDGE SQ SCH (21:40)
[2018-08-03] MEDS: ATORVASTATIN 10 MG TABLET GT SCH (21:40)
[2018-08-04] VITALS (7 sets, daily range): BP systolic 100–147; BP diastolic 60–77
[2018-08-04] MEDS: BLOOD SUGAR DIAGNOSTIC 1 EACH STRIP IN SCH ×4 (00:27→17:22)
[2018-08-04] MEDS: DILTIAZEM HCL 30 MG TABLET GT SCH ×4 (00:27→17:21)
[2018-08-04] MEDS: INSULIN ASPART/LISPRO 100 UNIT/ML CARTRIDGE SQ PRN ×4 (00:29→17:27)
[2018-08-04] MEDS: IPRATROPIUM NEB FS 0.5 MG/2.5 ML AMPUL.NEB NEB SCH ×4 (01:19→19:32)
[2018-08-04] MEDS: ALBUTEROL FS 2.5 MG/0.5 ML VIAL.NEB NEB SCH ×2 (01:31→08:00)
[2018-08-04] MEDS: GLUCERNA 1.2 1,000 ML BOTTLE GT PRN ×2 (01:40→18:54)
[2018-08-04] MEDS: PANTOPRAZOLE 40 MG/PACK PACK GT SCH (05:39)
[2018-08-04] MEDS: DOCUSATE SODIUM LIQ 100 MG/10 ML UDC GT SCH ×2 (09:22→17:20)
[2018-08-04] MEDS: LEVETIRACETAM SOL (5 ML) 100 MG/ML UDC GT SCH ×2 (09:23→21:27)
[2018-08-04] MEDS: ACIDOPHILUS/BULGARICUS 1 EACH TAB.CHEW GT SCH ×2 (09:23→17:20)
[2018-08-04] MEDS: VALSARTAN 80 MG TABLET GT SCH (09:23)
[2018-08-04] MEDS: MULTIVIT W/MINERALS 1 TAB TABLET GT SCH (09:23)
[2018-08-04] MEDS: FERROUS SULFATE - FOR SA ONLY 330 MG/7.5 ML UDC GT SCH (09:23)
[2018-08-04] MEDS: ASCORBIC ACID 500 MG TABLET GT SCH (09:25)
[2018-08-04] MEDS: ACETAMINOPHEN 650 MG/20 ML UDC- SA PATIENTS-PAIN ONLY GT SCH ×2 (09:25→21:28)
[2018-08-04] MEDS: ZINC SULFATE 220 MG CAPSULE GT SCH (09:25)
[2018-08-04] MEDS: THERAHONEY GEL 1.5 OZ TUBE TP SCH ×2 (10:25→21:28)
[2018-08-04] MEDS: NYSTATIN/TRIAMCIN 15 GM CREAM 15 GM TUBE TP SCH ×2 (10:25→21:28)
[2018-08-04] MEDS: Z GUARD REMEDY 2 OZ OINT TP SCH ×2 (10:25→21:28)
[2018-08-04] MEDS: HYDROGEN PEROXIDE 480 ML BOTTLE TP SCH ×2 (10:25→21:28)
[2018-08-04] MEDS: ALBUTEROL FS 2.5 MG/3 ML VIAL.NEB NEB SCH ×2 (14:20→19:32)
[2018-08-04] MEDS: ATORVASTATIN 10 MG TABLET GT SCH (21:31)
[2018-08-04] MEDS: ENOXAPARIN SODIUM 40 MG/0.4 ML DISP.SYRIN SQ SCH (21:33)
[2018-08-04] MEDS: INSULIN GLARGINE, 100 UNIT/ML CARTRIDGE SQ SCH (21:40)
[2018-08-05] VITALS: BP 105/60
[2018-08-05] MEDS: BLOOD SUGAR DIAGNOSTIC 1 EACH STRIP IN SCH ×5 (00:11→23:47)
[2018-08-05] MEDS: DILTIAZEM HCL 30 MG TABLET GT SCH ×5 (00:11→23:47)
[2018-08-05] MEDS: INSULIN ASPART/LISPRO 100 UNIT/ML CARTRIDGE SQ PRN ×5 (00:13→23:48)
[2018-08-05] MEDS: IPRATROPIUM NEB FS 0.5 MG/2.5 ML AMPUL.NEB NEB SCH ×4 (01:29→19:48)
[2018-08-05] MEDS: ALBUTEROL FS 2.5 MG/3 ML VIAL.NEB NEB SCH ×4 (01:30→19:48)
[2018-08-05] MEDS: PANTOPRAZOLE 40 MG/PACK PACK GT SCH (06:00)
[2018-08-05 07:30] VITALS: BP 117/43
[2018-08-05] MEDS: VALSARTAN 80 MG TABLET GT SCH (09:00)
[2018-08-05] MEDS: DOCUSATE SODIUM LIQ 100 MG/10 ML UDC GT SCH ×2 (09:36→17:07)
[2018-08-05] MEDS: ACETAMINOPHEN 650 MG/20 ML UDC- SA PATIENTS-PAIN ONLY GT SCH ×2 (09:37→21:14)
[2018-08-05] MEDS: FERROUS SULFATE - FOR SA ONLY 330 MG/7.5 ML UDC GT SCH (09:37)
[2018-08-05] MEDS: LEVETIRACETAM SOL (5 ML) 100 MG/ML UDC GT SCH ×2 (09:37→21:14)
[2018-08-05] MEDS: ACIDOPHILUS/BULGARICUS 1 EACH TAB.CHEW GT SCH ×2 (09:37→17:07)
[2018-08-05] MEDS: ZINC SULFATE 220 MG CAPSULE GT SCH (09:38)
[2018-08-05] MEDS: ASCORBIC ACID 500 MG TABLET GT SCH (09:38)
[2018-08-05] MEDS: MULTIVIT W/MINERALS 1 TAB TABLET GT SCH (09:46)
[2018-08-05] MEDS: THERAHONEY GEL 1.5 OZ TUBE TP SCH ×2 (10:10→21:15)
[2018-08-05] MEDS: HYDROGEN PEROXIDE 480 ML BOTTLE TP SCH ×2 (10:10→21:14)
[2018-08-05] MEDS: NYSTATIN/TRIAMCIN 15 GM CREAM 15 GM TUBE TP SCH ×2 (10:10→21:14)
[2018-08-05] MEDS: Z GUARD REMEDY 2 OZ OINT TP SCH ×2 (10:10→21:14)
[2018-08-05 12:00] VITALS: BP 128/73
[2018-08-05 19:05] VITALS: BP 143/79
[2018-08-05 20:08] VITALS: BP 95/62
[2018-08-05] MEDS: ENOXAPARIN SODIUM 40 MG/0.4 ML DISP.SYRIN SQ SCH (21:14)
[2018-08-05] MEDS: ATORVASTATIN 10 MG TABLET GT SCH (21:15)
[2018-08-05] MEDS: INSULIN GLARGINE, 100 UNIT/ML CARTRIDGE SQ SCH (21:15)
[2018-08-05 21:49] VITALS: BP 95/62
[2018-08-06 00:50] VITALS: BP 133/70
[2018-08-06] MEDS: ALBUTEROL FS 2.5 MG/3 ML VIAL.NEB NEB SCH ×4 (01:40→20:08)
[2018-08-06] MEDS: IPRATROPIUM NEB FS 0.5 MG/2.5 ML AMPUL.NEB NEB SCH ×4 (01:40→20:08)
[2018-08-06] MEDS: PANTOPRAZOLE 40 MG/PACK PACK GT SCH (05:52)
[2018-08-06] MEDS: DILTIAZEM HCL 30 MG TABLET GT SCH ×3 (05:52→17:37)
[2018-08-06] MEDS: BLOOD SUGAR DIAGNOSTIC 1 EACH STRIP IN SCH ×3 (05:52→18:38)
[2018-08-06] MEDS: INSULIN ASPART/LISPRO 100 UNIT/ML CARTRIDGE SQ PRN ×3 (05:53→18:39)
[2018-08-06 06:04] VITALS: BP 118/76
[2018-08-06 07:57] VITALS: BP 133/42
[2018-08-06] MEDS: ACIDOPHILUS/BULGARICUS 1 EACH TAB.CHEW GT SCH ×2 (08:53→17:36)
[2018-08-06] MEDS: DOCUSATE SODIUM LIQ 100 MG/10 ML UDC GT SCH ×2 (08:53→17:36)
[2018-08-06] MEDS: FERROUS SULFATE - FOR SA ONLY 330 MG/7.5 ML UDC GT SCH (08:53)
[2018-08-06] MEDS: ASCORBIC ACID 500 MG TABLET GT SCH (08:53)
[2018-08-06] MEDS: MULTIVIT W/MINERALS 1 TAB TABLET GT SCH (08:53)
[2018-08-06] MEDS: ZINC SULFATE 220 MG CAPSULE GT SCH (08:53)
[2018-08-06] MEDS: LEVETIRACETAM SOL (5 ML) 100 MG/ML UDC GT SCH ×2 (08:53→21:30)
[2018-08-06] MEDS: ACETAMINOPHEN 650 MG/20 ML UDC- SA PATIENTS-PAIN ONLY GT SCH ×2 (08:54→21:30)
[2018-08-06] MEDS: VALSARTAN 80 MG TABLET GT SCH (09:03)
[2018-08-06] MEDS: HYDROGEN PEROXIDE 480 ML BOTTLE TP SCH ×2 (09:30→21:30)
[2018-08-06] MEDS: NYSTATIN/TRIAMCIN 15 GM CREAM 15 GM TUBE TP SCH ×2 (09:30→21:30)
[2018-08-06] MEDS: THERAHONEY GEL 1.5 OZ TUBE TP SCH ×2 (09:30→21:31)
[2018-08-06] MEDS: Z GUARD REMEDY 2 OZ OINT TP SCH ×2 (09:30→21:31)
[2018-08-06 12:00] VITALS: BP 113/74
[2018-08-06 19:00] VITALS: BP 128/79
[2018-08-06 19:43] VITALS: BP 133/72
[2018-08-06] MEDS: ENOXAPARIN SODIUM 40 MG/0.4 ML DISP.SYRIN SQ SCH (21:30)
[2018-08-06] MEDS: ATORVASTATIN 10 MG TABLET GT SCH (21:31)
[2018-08-06] MEDS: INSULIN GLARGINE, 100 UNIT/ML CARTRIDGE SQ SCH (21:31)
[2018-08-07 00:22] VITALS: BP 116/76
[2018-08-07] MEDS: DILTIAZEM HCL 30 MG TABLET GT SCH ×4 (00:23→18:14)
[2018-08-07] MEDS: BLOOD SUGAR DIAGNOSTIC 1 EACH STRIP IN SCH ×4 (00:23→18:14)
[2018-08-07] MEDS: INSULIN ASPART/LISPRO 100 UNIT/ML CARTRIDGE SQ PRN ×3 (00:24→18:13)
[2018-08-07] MEDS: IPRATROPIUM NEB FS 0.5 MG/2.5 ML AMPUL.NEB NEB SCH ×4 (01:31→20:09)
[2018-08-07] MEDS: ALBUTEROL FS 2.5 MG/3 ML VIAL.NEB NEB SCH ×4 (01:31→20:09)
[2018-08-07] MEDS: PANTOPRAZOLE 40 MG/PACK PACK GT SCH (05:59)
[2018-08-07 06:19] VITALS: BP 120/79
[2018-08-07 07:42] VITALS: BP 136/68
[2018-08-07] MEDS: DOCUSATE SODIUM LIQ 100 MG/10 ML UDC GT SCH ×2 (09:15→17:30)
[2018-08-07] MEDS: VALSARTAN 80 MG TABLET GT SCH (09:15)
[2018-08-07] MEDS: LEVETIRACETAM SOL (5 ML) 100 MG/ML UDC GT SCH ×2 (09:15→21:14)
[2018-08-07] MEDS: FERROUS SULFATE - FOR SA ONLY 330 MG/7.5 ML UDC GT SCH (09:15)
[2018-08-07] MEDS: ACIDOPHILUS/BULGARICUS 1 EACH TAB.CHEW GT SCH ×2 (09:15→17:30)
[2018-08-07] MEDS: MULTIVIT W/MINERALS 1 TAB TABLET GT SCH (09:15)
[2018-08-07] MEDS: ACETAMINOPHEN 650 MG/20 ML UDC- SA PATIENTS-PAIN ONLY GT SCH ×2 (09:16→21:15)
[2018-08-07] MEDS: HYDROGEN PEROXIDE 480 ML BOTTLE TP SCH ×2 (09:16→21:15)
[2018-08-07] MEDS: ZINC SULFATE 220 MG CAPSULE GT SCH (09:16)
[2018-08-07] MEDS: ASCORBIC ACID 500 MG TABLET GT SCH (09:16)
[2018-08-07] MEDS: THERAHONEY GEL 1.5 OZ TUBE TP SCH ×2 (10:30→21:16)
[2018-08-07] MEDS: NYSTATIN/TRIAMCIN 15 GM CREAM 15 GM TUBE TP SCH ×2 (10:30→21:15)
[2018-08-07] MEDS: Z GUARD REMEDY 2 OZ OINT TP SCH ×2 (10:30→21:15)
[2018-08-07 12:00] VITALS: BP 148/81
[2018-08-07 18:00] VITALS: BP 125/76
[2018-08-07 20:52] VITALS: BP 114/65
[2018-08-07] MEDS: ENOXAPARIN SODIUM 40 MG/0.4 ML DISP.SYRIN SQ SCH (21:15)
[2018-08-07] MEDS: ATORVASTATIN 10 MG TABLET GT SCH (21:16)
[2018-08-07] MEDS: INSULIN GLARGINE, 100 UNIT/ML CARTRIDGE SQ SCH (21:16)
[2018-08-08 00:20] VITALS: BP 129/72
[2018-08-08] MEDS: BLOOD SUGAR DIAGNOSTIC 1 EACH STRIP IN SCH ×5 (00:22→23:55)
[2018-08-08] MEDS: DILTIAZEM HCL 30 MG TABLET GT SCH ×5 (00:22→23:55)
[2018-08-08] MEDS: INSULIN ASPART/LISPRO 100 UNIT/ML CARTRIDGE SQ PRN ×3 (00:23→23:56)
[2018-08-08] MEDS: ALBUTEROL FS 2.5 MG/3 ML VIAL.NEB NEB SCH ×4 (02:27→20:21)
[2018-08-08] MEDS: IPRATROPIUM NEB FS 0.5 MG/2.5 ML AMPUL.NEB NEB SCH ×4 (02:27→20:21)
[2018-08-08 06:14] VITALS: BP 118/69
[2018-08-08] MEDS: PANTOPRAZOLE 40 MG/PACK PACK GT SCH (06:16)
[2018-08-08 07:51] VITALS: BP 153/99
[2018-08-08] MEDS: FERROUS SULFATE - FOR SA ONLY 330 MG/7.5 ML UDC GT SCH (09:00)
[2018-08-08] MEDS: ASCORBIC ACID 500 MG TABLET GT SCH (09:00)
[2018-08-08] MEDS: ACETAMINOPHEN 650 MG/20 ML UDC- SA PATIENTS-PAIN ONLY GT SCH ×2 (09:00→21:30)
[2018-08-08] MEDS: Z GUARD REMEDY 2 OZ OINT TP SCH ×2 (09:00→21:57)
[2018-08-08] MEDS: HYDROGEN PEROXIDE 480 ML BOTTLE TP SCH ×2 (09:00→21:57)
[2018-08-08] MEDS: LEVETIRACETAM SOL (5 ML) 100 MG/ML UDC GT SCH ×2 (09:00→21:30)
[2018-08-08] MEDS: VALSARTAN 80 MG TABLET GT SCH (09:00)
[2018-08-08] MEDS: DOCUSATE SODIUM LIQ 100 MG/10 ML UDC GT SCH ×2 (09:00→17:00)
[2018-08-08] MEDS: ACIDOPHILUS/BULGARICUS 1 EACH TAB.CHEW GT SCH ×2 (09:00→17:00)
[2018-08-08] MEDS: NYSTATIN/TRIAMCIN 15 GM CREAM 15 GM TUBE TP SCH ×2 (09:00→21:57)
[2018-08-08] MEDS: MULTIVIT W/MINERALS 1 TAB TABLET GT SCH (09:00)
[2018-08-08] MEDS: THERAHONEY GEL 1.5 OZ TUBE TP SCH ×2 (09:00→21:57)
[2018-08-08] MEDS: ZINC SULFATE 220 MG CAPSULE GT SCH (09:00)
[2018-08-08 12:00] VITALS: BP 163/96
[2018-08-08 18:00] VITALS: BP 94/57
[2018-08-08 20:11] VITALS: BP 101/63
[2018-08-08] MEDS: ENOXAPARIN SODIUM 40 MG/0.4 ML DISP.SYRIN SQ SCH (21:30)
[2018-08-08] MEDS: ATORVASTATIN 10 MG TABLET GT SCH (21:30)
[2018-08-08] MEDS: INSULIN GLARGINE, 100 UNIT/ML CARTRIDGE SQ SCH (22:16)
[2018-08-08] MEDS: GLUCERNA 1.2 1,000 ML BOTTLE GT PRN (22:29)
[2018-08-09 00:15] VITALS: BP 115/74
[2018-08-09] MEDS: IPRATROPIUM NEB FS 0.5 MG/2.5 ML AMPUL.NEB NEB SCH ×4 (01:50→19:44)
[2018-08-09] MEDS: ALBUTEROL FS 2.5 MG/3 ML VIAL.NEB NEB SCH ×4 (01:50→19:44)
[2018-08-09] MEDS: DILTIAZEM HCL 30 MG TABLET GT SCH ×4 (06:08→23:35)
[2018-08-09] MEDS: PANTOPRAZOLE 40 MG/PACK PACK GT SCH (06:08)
[2018-08-09] MEDS: BLOOD SUGAR DIAGNOSTIC 1 EACH STRIP IN SCH ×4 (06:08→23:35)
[2018-08-09] MEDS: INSULIN ASPART/LISPRO 100 UNIT/ML CARTRIDGE SQ PRN ×4 (06:10→23:35)
[2018-08-09 06:12] VITALS: BP 112/67
[2018-08-09 07:53] VITALS: BP 127/52
[2018-08-09] MEDS: VALSARTAN 80 MG TABLET GT SCH (09:00)
[2018-08-09] MEDS: DOCUSATE SODIUM LIQ 100 MG/10 ML UDC GT SCH ×2 (09:17→17:24)
[2018-08-09] MEDS: ACIDOPHILUS/BULGARICUS 1 EACH TAB.CHEW GT SCH ×2 (09:18→17:24)
[2018-08-09] MEDS: ACETAMINOPHEN 650 MG/20 ML UDC- SA PATIENTS-PAIN ONLY GT SCH ×2 (09:18→20:38)
[2018-08-09] MEDS: MULTIVIT W/MINERALS 1 TAB TABLET GT SCH (09:18)
[2018-08-09] MEDS: ASCORBIC ACID 500 MG TABLET GT SCH (09:18)
[2018-08-09] MEDS: ZINC SULFATE 220 MG CAPSULE GT SCH (09:18)
[2018-08-09] MEDS: LEVETIRACETAM SOL (5 ML) 100 MG/ML UDC GT SCH ×2 (09:18→20:38)
[2018-08-09] MEDS: FERROUS SULFATE - FOR SA ONLY 330 MG/7.5 ML UDC GT SCH (09:18)
[2018-08-09] MEDS: NYSTATIN/TRIAMCIN 15 GM CREAM 15 GM TUBE TP SCH ×2 (10:00→20:39)
[2018-08-09] MEDS: HYDROGEN PEROXIDE 480 ML BOTTLE TP SCH ×2 (10:00→20:39)
[2018-08-09] MEDS: THERAHONEY GEL 1.5 OZ TUBE TP SCH ×2 (10:00→20:39)
[2018-08-09] MEDS: Z GUARD REMEDY 2 OZ OINT TP SCH ×2 (10:00→20:39)
[2018-08-09 12:00] VITALS: BP 98/57
[2018-08-09 18:00] VITALS: BP 125/78
[2018-08-09] MEDS: GLUCERNA 1.2 1,000 ML BOTTLE GT PRN (19:12)
[2018-08-09 20:37] VITALS: BP 129/46
[2018-08-09] MEDS: ENOXAPARIN SODIUM 40 MG/0.4 ML DISP.SYRIN SQ SCH (20:39)
[2018-08-09] MEDS: ATORVASTATIN 10 MG TABLET GT SCH (21:28)
[2018-08-09] MEDS: INSULIN GLARGINE, 100 UNIT/ML CARTRIDGE SQ SCH (21:29)
[2018-08-10] MEDS: IPRATROPIUM NEB FS 0.5 MG/2.5 ML AMPUL.NEB NEB SCH ×4 (00:46→19:47)
[2018-08-10] MEDS: ALBUTEROL FS 2.5 MG/3 ML VIAL.NEB NEB SCH ×4 (00:46→19:48)
[2018-08-10 01:02] VITALS: BP 132/86
[2018-08-10] MEDS: DILTIAZEM HCL 30 MG TABLET GT SCH ×3 (06:09→18:01)
[2018-08-10] MEDS: BLOOD SUGAR DIAGNOSTIC 1 EACH STRIP IN SCH ×4 (06:09→23:37)
[2018-08-10] MEDS: PANTOPRAZOLE 40 MG/PACK PACK GT SCH (06:09)
[2018-08-10] MEDS: INSULIN ASPART/LISPRO 100 UNIT/ML CARTRIDGE SQ PRN ×4 (06:09→23:39)
[2018-08-10 06:11] VITALS: BP 123/90
[2018-08-10 08:02] VITALS: BP 135/47
[2018-08-10] MEDS: HYDROGEN PEROXIDE 480 ML BOTTLE TP SCH ×2 (09:00→20:47)
[2018-08-10] MEDS: LEVETIRACETAM SOL (5 ML) 100 MG/ML UDC GT SCH ×2 (09:01→20:40)
[2018-08-10] MEDS: MULTIVIT W/MINERALS 1 TAB TABLET GT SCH (09:01)
[2018-08-10] MEDS: DOCUSATE SODIUM LIQ 100 MG/10 ML UDC GT SCH ×2 (09:01→17:57)
[2018-08-10] MEDS: ACIDOPHILUS/BULGARICUS 1 EACH TAB.CHEW GT SCH ×2 (09:01→17:57)
[2018-08-10] MEDS: FERROUS SULFATE - FOR SA ONLY 330 MG/7.5 ML UDC GT SCH (09:01)
[2018-08-10] MEDS: VALSARTAN 80 MG TABLET GT SCH (09:01)
[2018-08-10] MEDS: ASCORBIC ACID 500 MG TABLET GT SCH (09:02)
[2018-08-10] MEDS: ZINC SULFATE 220 MG CAPSULE GT SCH (09:02)
[2018-08-10] MEDS: ACETAMINOPHEN 650 MG/20 ML UDC- SA PATIENTS-PAIN ONLY GT SCH ×2 (09:02→20:44)
[2018-08-10] MEDS: THERAHONEY GEL 1.5 OZ TUBE TP SCH ×2 (09:30→20:48)
[2018-08-10] MEDS: NYSTATIN/TRIAMCIN 15 GM CREAM 15 GM TUBE TP SCH ×2 (09:30→20:47)
[2018-08-10] MEDS: Z GUARD REMEDY 2 OZ OINT TP SCH ×2 (09:30→20:47)
[2018-08-10] MEDS: GLUCERNA 1.2 1,000 ML BOTTLE GT PRN (11:48)
[2018-08-10 12:00] VITALS: BP 110/61
[2018-08-10] MEDS ORDERED: HYDROCODONE/APAP 5/325MG 1 EACH TABLET PO PRN (13:00)
--- NOTE | 2018-08-10 15:35 | NUR ---
Notified Dr. Pineda that at times patient is noted with facial grimacing during wound care. Patient has pain medication order which is Tylenol and not very effective to control her pain. New order given for [place], 1 tablet, PRN for moderate pain. Order noted and carried out.
[2018-08-10 18:30] VITALS: BP 112/50
--- NOTE | 2018-08-10 18:46 | NUR ---
Spoke with resident's daughter Kelly and made her aware that a new order for PRN pain was obtain from Dr. Pineda, Kelly appreciated the call and said to keep her posted.
[2018-08-10 20:02] VITALS: BP 133/68
[2018-08-10] MEDS: ENOXAPARIN SODIUM 40 MG/0.4 ML DISP.SYRIN SQ SCH (20:46)
[2018-08-10] MEDS: INSULIN GLARGINE, 100 UNIT/ML CARTRIDGE SQ SCH (22:00)
[2018-08-10] MEDS: ATORVASTATIN 10 MG TABLET GT SCH (22:20)
[2018-08-11] VITALS (7 sets, daily range): BP systolic 108–123; BP diastolic 43–74
[2018-08-11] MEDS: DILTIAZEM HCL 30 MG TABLET GT SCH ×5 (00:38→23:41)
[2018-08-11] MEDS: ALBUTEROL FS 2.5 MG/3 ML VIAL.NEB NEB SCH ×4 (01:28→18:50)
[2018-08-11] MEDS: IPRATROPIUM NEB FS 0.5 MG/2.5 ML AMPUL.NEB NEB SCH ×4 (01:28→18:50)
[2018-08-11] MEDS: GLUCERNA 1.2 1,000 ML BOTTLE GT PRN ×2 (01:54→20:40)
[2018-08-11] MEDS: PANTOPRAZOLE 40 MG/PACK PACK GT SCH (05:12)
[2018-08-11] MEDS: BLOOD SUGAR DIAGNOSTIC 1 EACH STRIP IN SCH ×4 (05:23→23:41)
[2018-08-11] MEDS: INSULIN ASPART/LISPRO 100 UNIT/ML CARTRIDGE SQ PRN ×3 (05:26→23:41)
[2018-08-11] MEDS: MULTIVIT W/MINERALS 1 TAB TABLET GT SCH (09:00)
[2018-08-11] MEDS: Z GUARD REMEDY 2 OZ OINT TP SCH ×2 (09:00→20:40)
[2018-08-11] MEDS: THERAHONEY GEL 1.5 OZ TUBE TP SCH ×2 (09:00→20:40)
[2018-08-11] MEDS: FERROUS SULFATE - FOR SA ONLY 330 MG/7.5 ML UDC GT SCH (09:00)
[2018-08-11] MEDS: ASCORBIC ACID 500 MG TABLET GT SCH (09:00)
[2018-08-11] MEDS: ACETAMINOPHEN 650 MG/20 ML UDC- SA PATIENTS-PAIN ONLY GT SCH ×2 (09:00→20:40)
[2018-08-11] MEDS: HYDROGEN PEROXIDE 480 ML BOTTLE TP SCH ×2 (09:00→20:40)
[2018-08-11] MEDS: ZINC SULFATE 220 MG CAPSULE GT SCH (09:00)
[2018-08-11] MEDS: DOCUSATE SODIUM LIQ 100 MG/10 ML UDC GT SCH ×2 (09:00→17:00)
[2018-08-11] MEDS: LEVETIRACETAM SOL (5 ML) 100 MG/ML UDC GT SCH ×2 (09:00→20:39)
[2018-08-11] MEDS: NYSTATIN/TRIAMCIN 15 GM CREAM 15 GM TUBE TP SCH ×2 (09:00→20:40)
[2018-08-11] MEDS: ACIDOPHILUS/BULGARICUS 1 EACH TAB.CHEW GT SCH ×2 (09:00→17:00)
[2018-08-11] MEDS: VALSARTAN 80 MG TABLET GT SCH (09:00)
[2018-08-11] MEDS: ENOXAPARIN SODIUM 40 MG/0.4 ML DISP.SYRIN SQ SCH (20:40)
[2018-08-11] MEDS: ATORVASTATIN 10 MG TABLET GT SCH (21:55)
[2018-08-11] MEDS: INSULIN GLARGINE, 100 UNIT/ML CARTRIDGE SQ SCH (21:55)
[2018-08-12 01:06] VITALS: BP 116/57
[2018-08-12] MEDS: IPRATROPIUM NEB FS 0.5 MG/2.5 ML AMPUL.NEB NEB SCH ×4 (01:07→20:00)
[2018-08-12] MEDS: ALBUTEROL FS 2.5 MG/3 ML VIAL.NEB NEB SCH ×4 (01:07→20:00)
[2018-08-12] MEDS: BLOOD SUGAR DIAGNOSTIC 1 EACH STRIP IN SCH ×4 (05:50→23:40)
[2018-08-12] MEDS: PANTOPRAZOLE 40 MG/PACK PACK GT SCH (05:50)
[2018-08-12] MEDS: INSULIN ASPART/LISPRO 100 UNIT/ML CARTRIDGE SQ PRN ×4 (05:50→23:42)
[2018-08-12] MEDS: DILTIAZEM HCL 30 MG TABLET GT SCH ×4 (05:50→23:40)
[2018-08-12 06:49] VITALS: BP 119/74
[2018-08-12 07:35] VITALS: BP 104/61
[2018-08-12] MEDS: HYDROGEN PEROXIDE 480 ML BOTTLE TP SCH ×2 (09:00→21:39)
[2018-08-12] MEDS: THERAHONEY GEL 1.5 OZ TUBE TP SCH ×2 (09:00→21:39)
[2018-08-12] MEDS: Z GUARD REMEDY 2 OZ OINT TP SCH ×2 (09:00→21:39)
[2018-08-12] MEDS: NYSTATIN/TRIAMCIN 15 GM CREAM 15 GM TUBE TP SCH ×2 (09:00→21:39)
[2018-08-12] MEDS: DOCUSATE SODIUM LIQ 100 MG/10 ML UDC GT SCH ×2 (09:33→17:00)
[2018-08-12] MEDS: FERROUS SULFATE - FOR SA ONLY 330 MG/7.5 ML UDC GT SCH (09:34)
[2018-08-12] MEDS: VALSARTAN 80 MG TABLET GT SCH (09:35)
[2018-08-12] MEDS: LEVETIRACETAM SOL (5 ML) 100 MG/ML UDC GT SCH ×2 (09:35→21:38)
[2018-08-12] MEDS: ACIDOPHILUS/BULGARICUS 1 EACH TAB.CHEW GT SCH ×2 (09:36→17:00)
[2018-08-12] MEDS: ACETAMINOPHEN 650 MG/20 ML UDC- SA PATIENTS-PAIN ONLY GT SCH ×2 (09:37→21:38)
[2018-08-12] MEDS: ASCORBIC ACID 500 MG TABLET GT SCH (09:38)
[2018-08-12] MEDS: ZINC SULFATE 220 MG CAPSULE GT SCH (09:38)
[2018-08-12] MEDS: MULTIVIT W/MINERALS 1 TAB TABLET GT SCH (09:52)
[2018-08-12 12:00] VITALS: BP 115/62
[2018-08-12] MEDS: GLUCERNA 1.2 1,000 ML BOTTLE GT PRN (15:31)
[2018-08-12 18:00] VITALS: BP 105/66
[2018-08-12 19:53] VITALS: BP 110/64
[2018-08-12] MEDS: ENOXAPARIN SODIUM 40 MG/0.4 ML DISP.SYRIN SQ SCH (21:39)
[2018-08-12] MEDS: ATORVASTATIN 10 MG TABLET GT SCH (21:39)
[2018-08-12] MEDS: INSULIN GLARGINE, 100 UNIT/ML CARTRIDGE SQ SCH (21:40)
[2018-08-12] MEDS: hydrALAZINE HCL 10 MG TABLET GT PRN (23:43)
[2018-08-13] VITALS: BP 119/61
[2018-08-13] MEDS: ALBUTEROL FS 2.5 MG/3 ML VIAL.NEB NEB SCH ×4 (01:49→20:06)
[2018-08-13] MEDS: IPRATROPIUM NEB FS 0.5 MG/2.5 ML AMPUL.NEB NEB SCH ×4 (01:49→20:06)
[2018-08-13] MEDS: GLUCERNA 1.2 1,000 ML BOTTLE GT PRN (05:59)
[2018-08-13 06:00] VITALS: BP 135/78
[2018-08-13] MEDS: DILTIAZEM HCL 30 MG TABLET GT SCH ×3 (06:06→17:04)
[2018-08-13] MEDS: BLOOD SUGAR DIAGNOSTIC 1 EACH STRIP IN SCH ×3 (06:06→17:04)
[2018-08-13] MEDS: PANTOPRAZOLE 40 MG/PACK PACK GT SCH (06:06)
[2018-08-13] MEDS: INSULIN ASPART/LISPRO 100 UNIT/ML CARTRIDGE SQ PRN ×3 (06:08→17:56)
[2018-08-13 08:49] VITALS: BP 114/64
[2018-08-13] MEDS: NYSTATIN/TRIAMCIN 15 GM CREAM 15 GM TUBE TP SCH ×2 (09:00→21:11)
[2018-08-13] MEDS: Z GUARD REMEDY 2 OZ OINT TP SCH ×2 (09:00→21:00)
[2018-08-13] MEDS: THERAHONEY GEL 1.5 OZ TUBE TP SCH ×2 (09:00→21:11)
[2018-08-13] MEDS: HYDROGEN PEROXIDE 480 ML BOTTLE TP SCH ×2 (09:00→21:00)
[2018-08-13] MEDS: VALSARTAN 80 MG TABLET GT SCH (09:38)
[2018-08-13] MEDS: FERROUS SULFATE - FOR SA ONLY 330 MG/7.5 ML UDC GT SCH (09:38)
[2018-08-13] MEDS: MULTIVIT W/MINERALS 1 TAB TABLET GT SCH (09:38)
[2018-08-13] MEDS: LEVETIRACETAM SOL (5 ML) 100 MG/ML UDC GT SCH ×2 (09:38→21:00)
[2018-08-13] MEDS: ACIDOPHILUS/BULGARICUS 1 EACH TAB.CHEW GT SCH ×2 (09:38→17:04)
[2018-08-13] MEDS: DOCUSATE SODIUM LIQ 100 MG/10 ML UDC GT SCH ×2 (09:38→17:04)
[2018-08-13] MEDS: ASCORBIC ACID 500 MG TABLET GT SCH (09:39)
[2018-08-13] MEDS: ACETAMINOPHEN 650 MG/20 ML UDC- SA PATIENTS-PAIN ONLY GT SCH ×2 (09:39→21:03)
[2018-08-13] MEDS: ZINC SULFATE 220 MG CAPSULE GT SCH (09:39)
[2018-08-13 12:00] VITALS: BP 123/70
[2018-08-13 18:00] VITALS: BP 147/71
[2018-08-13 20:18] VITALS: BP 144/66
[2018-08-13] MEDS: ATORVASTATIN 10 MG TABLET GT SCH (21:00)
[2018-08-13] MEDS: ENOXAPARIN SODIUM 40 MG/0.4 ML DISP.SYRIN SQ SCH (21:01)
[2018-08-13] MEDS: INSULIN GLARGINE, 100 UNIT/ML CARTRIDGE SQ SCH (22:00)
[2018-08-14] VITALS: BP 144/66
[2018-08-14] MEDS: DILTIAZEM HCL 30 MG TABLET GT SCH ×5 (00:37→23:27)
[2018-08-14] MEDS: BLOOD SUGAR DIAGNOSTIC 1 EACH STRIP IN SCH ×5 (00:37→23:27)
[2018-08-14] MEDS: IPRATROPIUM NEB FS 0.5 MG/2.5 ML AMPUL.NEB NEB SCH ×4 (02:09→19:30)
[2018-08-14] MEDS: ALBUTEROL FS 2.5 MG/3 ML VIAL.NEB NEB SCH ×4 (02:09→19:30)
[2018-08-14] MEDS: PANTOPRAZOLE 40 MG/PACK PACK GT SCH (05:40)
[2018-08-14 06:52] VITALS: BP 127/70
[2018-08-14 07:27] VITALS: BP 122/72
[2018-08-14] MEDS: MULTIVIT W/MINERALS 1 TAB TABLET GT SCH (09:17)
[2018-08-14] MEDS: VALSARTAN 80 MG TABLET GT SCH (09:17)
[2018-08-14] MEDS: DOCUSATE SODIUM LIQ 100 MG/10 ML UDC GT SCH ×2 (09:17→17:29)
[2018-08-14] MEDS: LEVETIRACETAM SOL (5 ML) 100 MG/ML UDC GT SCH ×2 (09:17→21:18)
[2018-08-14] MEDS: FERROUS SULFATE - FOR SA ONLY 330 MG/7.5 ML UDC GT SCH (09:17)
[2018-08-14] MEDS: ACIDOPHILUS/BULGARICUS 1 EACH TAB.CHEW GT SCH ×2 (09:17→17:29)
[2018-08-14] MEDS: ASCORBIC ACID 500 MG TABLET GT SCH (09:18)
[2018-08-14] MEDS: HYDROGEN PEROXIDE 480 ML BOTTLE TP SCH ×2 (09:18→21:19)
[2018-08-14] MEDS: ACETAMINOPHEN 650 MG/20 ML UDC- SA PATIENTS-PAIN ONLY GT SCH ×2 (09:18→21:18)
[2018-08-14] MEDS: ZINC SULFATE 220 MG CAPSULE GT SCH (09:18)
[2018-08-14] MEDS: NYSTATIN/TRIAMCIN 15 GM CREAM 15 GM TUBE TP SCH ×2 (10:30→21:00)
[2018-08-14] MEDS: Z GUARD REMEDY 2 OZ OINT TP SCH ×2 (10:30→21:00)
[2018-08-14] MEDS: THERAHONEY GEL 1.5 OZ TUBE TP SCH ×2 (10:30→22:00)
[2018-08-14 12:00] VITALS: BP 147/74
[2018-08-14] MEDS: INSULIN ASPART/LISPRO 100 UNIT/ML CARTRIDGE SQ PRN ×2 (12:42→23:29)
--- NOTE | 2018-08-14 14:30 | NUR ---
ORACIO communicated with pt.'s daughter Kelly to inform her about this Thursday 08/17 IDT abramg
[2018-08-14 18:58] VITALS: BP 124/73
[2018-08-14 19:57] VITALS: BP 112/69
[2018-08-14] MEDS: ATORVASTATIN 10 MG TABLET GT SCH (21:19)
[2018-08-14] MEDS: ENOXAPARIN SODIUM 40 MG/0.4 ML DISP.SYRIN SQ SCH (21:19)
[2018-08-14] MEDS: INSULIN GLARGINE, 100 UNIT/ML CARTRIDGE SQ SCH (21:40)
[2018-08-15 00:50] VITALS: BP 118/70
[2018-08-15] MEDS: GLUCERNA 1.2 1,000 ML BOTTLE GT PRN ×2 (01:28→17:26)
[2018-08-15] MEDS: IPRATROPIUM NEB FS 0.5 MG/2.5 ML AMPUL.NEB NEB SCH ×4 (01:37→20:03)
[2018-08-15] MEDS: ALBUTEROL FS 2.5 MG/3 ML VIAL.NEB NEB SCH ×4 (01:37→20:03)
[2018-08-15] MEDS: BLOOD SUGAR DIAGNOSTIC 1 EACH STRIP IN SCH ×4 (06:14→23:18)
[2018-08-15] MEDS: DILTIAZEM HCL 30 MG TABLET GT SCH ×4 (06:14→23:17)
[2018-08-15] MEDS: PANTOPRAZOLE 40 MG/PACK PACK GT SCH (06:14)
[2018-08-15] MEDS: INSULIN ASPART/LISPRO 100 UNIT/ML CARTRIDGE SQ PRN ×4 (06:15→23:19)
[2018-08-15 06:32] VITALS: BP 128/70
[2018-08-15 07:32] VITALS: BP 104/67
[2018-08-15] MEDS: VALSARTAN 80 MG TABLET GT SCH (09:00)
[2018-08-15] MEDS: ZINC SULFATE 220 MG CAPSULE GT SCH (09:57)
[2018-08-15] MEDS: MULTIVIT W/MINERALS 1 TAB TABLET GT SCH (09:57)
[2018-08-15] MEDS: FERROUS SULFATE - FOR SA ONLY 330 MG/7.5 ML UDC GT SCH (09:57)
[2018-08-15] MEDS: ACIDOPHILUS/BULGARICUS 1 EACH TAB.CHEW GT SCH ×2 (09:57→17:26)
[2018-08-15] MEDS: DOCUSATE SODIUM LIQ 100 MG/10 ML UDC GT SCH ×2 (09:57→17:26)
[2018-08-15] MEDS: ACETAMINOPHEN 650 MG/20 ML UDC- SA PATIENTS-PAIN ONLY GT SCH ×2 (09:57→20:44)
[2018-08-15] MEDS: ASCORBIC ACID 500 MG TABLET GT SCH (09:57)
[2018-08-15] MEDS: LEVETIRACETAM SOL (5 ML) 100 MG/ML UDC GT SCH ×2 (09:57→20:43)
[2018-08-15] MEDS: HYDROGEN PEROXIDE 480 ML BOTTLE TP SCH ×2 (09:57→20:44)
[2018-08-15] MEDS: NYSTATIN/TRIAMCIN 15 GM CREAM 15 GM TUBE TP SCH ×2 (09:58→21:21)
[2018-08-15] MEDS: Z GUARD REMEDY 2 OZ OINT TP SCH ×2 (09:58→21:18)
[2018-08-15] MEDS: THERAHONEY GEL 1.5 OZ TUBE TP SCH ×2 (09:58→21:18)
[2018-08-15 19:12] VITALS: BP_SYST 104; BP_SYST 122; BP_DIAS 60; BP_DIAS 67
[2018-08-15 19:42] VITALS: BP 120/73
[2018-08-15] MEDS: ENOXAPARIN SODIUM 40 MG/0.4 ML DISP.SYRIN SQ SCH (20:44)
[2018-08-15] MEDS: ATORVASTATIN 10 MG TABLET GT SCH (21:17)
[2018-08-15] MEDS: INSULIN GLARGINE, 100 UNIT/ML CARTRIDGE SQ SCH (21:17)
[2018-08-16 00:59] VITALS: BP 138/72
[2018-08-16] MEDS: ALBUTEROL FS 2.5 MG/3 ML VIAL.NEB NEB SCH ×4 (01:52→19:11)
[2018-08-16] MEDS: IPRATROPIUM NEB FS 0.5 MG/2.5 ML AMPUL.NEB NEB SCH ×4 (01:52→19:10)
[2018-08-16] MEDS: DILTIAZEM HCL 30 MG TABLET GT SCH ×4 (06:22→23:32)
[2018-08-16] MEDS: PANTOPRAZOLE 40 MG/PACK PACK GT SCH (06:23)
[2018-08-16] MEDS: INSULIN ASPART/LISPRO 100 UNIT/ML CARTRIDGE SQ PRN ×4 (06:23→23:33)
[2018-08-16] MEDS: BLOOD SUGAR DIAGNOSTIC 1 EACH STRIP IN SCH ×4 (06:23→23:32)
[2018-08-16 06:42] VITALS: BP 126/68
[2018-08-16 07:45] VITALS: BP 122/67
[2018-08-16] MEDS: Z GUARD REMEDY 2 OZ OINT TP SCH ×2 (09:00→20:45)
[2018-08-16] MEDS: ACETAMINOPHEN 650 MG/20 ML UDC- SA PATIENTS-PAIN ONLY GT SCH ×2 (09:00→20:45)
[2018-08-16] MEDS: HYDROGEN PEROXIDE 480 ML BOTTLE TP SCH ×2 (09:00→20:45)
[2018-08-16] MEDS: VALSARTAN 80 MG TABLET GT SCH (09:00)
[2018-08-16] MEDS: MULTIVIT W/MINERALS 1 TAB TABLET GT SCH (09:00)
[2018-08-16] MEDS: ZINC SULFATE 220 MG CAPSULE GT SCH (09:00)
[2018-08-16] MEDS: FERROUS SULFATE - FOR SA ONLY 330 MG/7.5 ML UDC GT SCH (09:00)
[2018-08-16] MEDS: DOCUSATE SODIUM LIQ 100 MG/10 ML UDC GT SCH ×2 (09:00→17:16)
[2018-08-16] MEDS: ACIDOPHILUS/BULGARICUS 1 EACH TAB.CHEW GT SCH ×2 (09:00→17:16)
[2018-08-16] MEDS: NYSTATIN/TRIAMCIN 15 GM CREAM 15 GM TUBE TP SCH ×2 (09:00→20:45)
[2018-08-16] MEDS: LEVETIRACETAM SOL (5 ML) 100 MG/ML UDC GT SCH ×2 (09:00→20:45)
[2018-08-16] MEDS: THERAHONEY GEL 1.5 OZ TUBE TP SCH ×2 (09:00→20:46)
[2018-08-16] MEDS: ASCORBIC ACID 500 MG TABLET GT SCH (09:00)
[2018-08-16 12:00] VITALS: BP 122/72
[2018-08-16 19:25] VITALS: BP 127/97
[2018-08-16] MEDS: ENOXAPARIN SODIUM 40 MG/0.4 ML DISP.SYRIN SQ SCH (20:45)
[2018-08-16 20:46] VITALS: BP 133/75
[2018-08-16] MEDS: ATORVASTATIN 10 MG TABLET GT SCH (21:18)
[2018-08-16] MEDS: INSULIN GLARGINE, 100 UNIT/ML CARTRIDGE SQ SCH (21:19)
[2018-08-17] MEDS: ALBUTEROL FS 2.5 MG/3 ML VIAL.NEB NEB SCH ×4 (01:06→19:58)
[2018-08-17] MEDS: IPRATROPIUM NEB FS 0.5 MG/2.5 ML AMPUL.NEB NEB SCH ×4 (01:06→19:58)
[2018-08-17 01:22] VITALS: BP 119/79
[2018-08-17] MEDS: GLUCERNA 1.2 1,000 ML BOTTLE GT PRN (01:24)
[2018-08-17] MEDS: DILTIAZEM HCL 30 MG TABLET GT SCH ×3 (05:44→18:15)
[2018-08-17] MEDS: PANTOPRAZOLE 40 MG/PACK PACK GT SCH (05:44)
[2018-08-17 06:21] VITALS: BP 132/77
[2018-08-17] MEDS: INSULIN ASPART/LISPRO 100 UNIT/ML CARTRIDGE SQ PRN ×3 (06:23→18:16)
[2018-08-17] MEDS: BLOOD SUGAR DIAGNOSTIC 1 EACH STRIP IN SCH ×3 (06:23→18:15)
[2018-08-17 08:10] VITALS: BP 106/49
[2018-08-17] MEDS: ASCORBIC ACID 500 MG TABLET GT SCH (09:00)
[2018-08-17] MEDS: DOCUSATE SODIUM LIQ 100 MG/10 ML UDC GT SCH ×2 (09:00→17:00)
[2018-08-17] MEDS: HYDROGEN PEROXIDE 480 ML BOTTLE TP SCH ×2 (09:00→20:59)
[2018-08-17] MEDS: ACETAMINOPHEN 650 MG/20 ML UDC- SA PATIENTS-PAIN ONLY GT SCH ×2 (09:00→20:59)
[2018-08-17] MEDS: VALSARTAN 80 MG TABLET GT SCH (09:00)
[2018-08-17] MEDS: ACIDOPHILUS/BULGARICUS 1 EACH TAB.CHEW GT SCH ×2 (09:00→17:00)
[2018-08-17] MEDS: Z GUARD REMEDY 2 OZ OINT TP SCH ×2 (09:00→20:59)
[2018-08-17] MEDS: LEVETIRACETAM SOL (5 ML) 100 MG/ML UDC GT SCH ×2 (09:00→20:58)
[2018-08-17] MEDS: NYSTATIN/TRIAMCIN 15 GM CREAM 15 GM TUBE TP SCH ×2 (09:00→20:59)
[2018-08-17] MEDS: ZINC SULFATE 220 MG CAPSULE GT SCH (09:00)
[2018-08-17] MEDS: FERROUS SULFATE - FOR SA ONLY 330 MG/7.5 ML UDC GT SCH (09:00)
[2018-08-17] MEDS: THERAHONEY GEL 1.5 OZ TUBE TP SCH ×2 (09:00→20:59)
[2018-08-17] MEDS: MULTIVIT W/MINERALS 1 TAB TABLET GT SCH (09:00)
--- NOTE | 2018-08-17 14:52 | NUR ---
INTERDISCIPLINARY TEAM CONFERENCE (IDT) was held today. Resident's family member were not able to attend today's IDT meeting. Dr. Capone and the interdisciplinary team reviewed the current plan of care in detail. Orders as well as treatment and medications were reviewed. No new orders were given.
[2018-08-17 16:28] VITALS: BP 118/66
[2018-08-17 19:20] VITALS: BP 121/62
[2018-08-17 19:50] VITALS: BP 122/66
[2018-08-17] MEDS: ENOXAPARIN SODIUM 40 MG/0.4 ML DISP.SYRIN SQ SCH (20:59)
[2018-08-17] MEDS: ATORVASTATIN 10 MG TABLET GT SCH (21:23)
[2018-08-17] MEDS: INSULIN GLARGINE, 100 UNIT/ML CARTRIDGE SQ SCH (21:24)
[2018-08-18] VITALS (7 sets, daily range): BP systolic 116–145; BP diastolic 65–83
[2018-08-18] MEDS: GLUCERNA 1.2 1,000 ML BOTTLE GT PRN ×2 (00:13→18:50)
[2018-08-18] MEDS: BLOOD SUGAR DIAGNOSTIC 1 EACH STRIP IN SCH ×5 (00:13→23:43)
[2018-08-18] MEDS: DILTIAZEM HCL 30 MG TABLET GT SCH ×5 (00:13→23:43)
[2018-08-18] MEDS: INSULIN ASPART/LISPRO 100 UNIT/ML CARTRIDGE SQ PRN ×5 (00:14→23:44)
[2018-08-18] MEDS: ALBUTEROL FS 2.5 MG/3 ML VIAL.NEB NEB SCH ×4 (01:42→19:54)
[2018-08-18] MEDS: IPRATROPIUM NEB FS 0.5 MG/2.5 ML AMPUL.NEB NEB SCH ×4 (01:42→19:54)
[2018-08-18] MEDS: PANTOPRAZOLE 40 MG/PACK PACK GT SCH (06:00)
[2018-08-18] MEDS: Z GUARD REMEDY 2 OZ OINT TP SCH ×2 (09:00→20:22)
[2018-08-18] MEDS: NYSTATIN/TRIAMCIN 15 GM CREAM 15 GM TUBE TP SCH ×2 (09:00→20:22)
[2018-08-18] MEDS: THERAHONEY GEL 1.5 OZ TUBE TP SCH ×2 (09:00→20:22)
[2018-08-18] MEDS: HYDROGEN PEROXIDE 480 ML BOTTLE TP SCH ×2 (09:00→20:22)
[2018-08-18] MEDS: DOCUSATE SODIUM LIQ 100 MG/10 ML UDC GT SCH ×2 (09:13→17:00)
[2018-08-18] MEDS: FERROUS SULFATE - FOR SA ONLY 330 MG/7.5 ML UDC GT SCH (09:14)
[2018-08-18] MEDS: VALSARTAN 80 MG TABLET GT SCH (09:14)
[2018-08-18] MEDS: LEVETIRACETAM SOL (5 ML) 100 MG/ML UDC GT SCH ×2 (09:15→20:21)
[2018-08-18] MEDS: ASCORBIC ACID 500 MG TABLET GT SCH (09:15)
[2018-08-18] MEDS: ACIDOPHILUS/BULGARICUS 1 EACH TAB.CHEW GT SCH ×2 (09:15→17:00)
[2018-08-18] MEDS: ZINC SULFATE 220 MG CAPSULE GT SCH (09:15)
[2018-08-18] MEDS: ACETAMINOPHEN 650 MG/20 ML UDC- SA PATIENTS-PAIN ONLY GT SCH ×2 (09:16→20:21)
[2018-08-18] MEDS: MULTIVIT W/MINERALS 1 TAB TABLET GT SCH (09:18)
[2018-08-18] MEDS: ENOXAPARIN SODIUM 40 MG/0.4 ML DISP.SYRIN SQ SCH (20:22)
[2018-08-18] MEDS: ATORVASTATIN 10 MG TABLET GT SCH (21:39)
[2018-08-18] MEDS: INSULIN GLARGINE, 100 UNIT/ML CARTRIDGE SQ SCH (21:39)
[2018-08-19 01:15] VITALS: BP 132/76
[2018-08-19] MEDS: IPRATROPIUM NEB FS 0.5 MG/2.5 ML AMPUL.NEB NEB SCH ×4 (01:46→20:02)
[2018-08-19] MEDS: ALBUTEROL FS 2.5 MG/3 ML VIAL.NEB NEB SCH ×4 (01:46→20:02)
[2018-08-19] MEDS: PANTOPRAZOLE 40 MG/PACK PACK GT SCH (05:42)
[2018-08-19] MEDS: DILTIAZEM HCL 30 MG TABLET GT SCH ×3 (05:42→17:23)
[2018-08-19] MEDS: BLOOD SUGAR DIAGNOSTIC 1 EACH STRIP IN SCH ×3 (05:42→17:58)
[2018-08-19] MEDS: INSULIN ASPART/LISPRO 100 UNIT/ML CARTRIDGE SQ PRN ×2 (05:43→12:38)
[2018-08-19 06:19] VITALS: BP 116/58
[2018-08-19 07:26] VITALS: BP 124/52
[2018-08-19] MEDS: DOCUSATE SODIUM LIQ 100 MG/10 ML UDC GT SCH ×2 (09:49→17:23)
[2018-08-19] MEDS: VALSARTAN 80 MG TABLET GT SCH (09:50)
[2018-08-19] MEDS: ACIDOPHILUS/BULGARICUS 1 EACH TAB.CHEW GT SCH ×2 (09:50→17:23)
[2018-08-19] MEDS: ACETAMINOPHEN 650 MG/20 ML UDC- SA PATIENTS-PAIN ONLY GT SCH ×2 (09:50→20:23)
[2018-08-19] MEDS: FERROUS SULFATE - FOR SA ONLY 330 MG/7.5 ML UDC GT SCH (09:50)
[2018-08-19] MEDS: ZINC SULFATE 220 MG CAPSULE GT SCH (09:50)
[2018-08-19] MEDS: NYSTATIN/TRIAMCIN 15 GM CREAM 15 GM TUBE TP SCH ×2 (09:50→20:24)
[2018-08-19] MEDS: LEVETIRACETAM SOL (5 ML) 100 MG/ML UDC GT SCH ×2 (09:50→20:23)
[2018-08-19] MEDS: ASCORBIC ACID 500 MG TABLET GT SCH (09:50)
[2018-08-19] MEDS: HYDROGEN PEROXIDE 480 ML BOTTLE TP SCH ×2 (09:50→20:24)
[2018-08-19] MEDS: MULTIVIT W/MINERALS 1 TAB TABLET GT SCH (09:50)
[2018-08-19] MEDS: THERAHONEY GEL 1.5 OZ TUBE TP SCH ×2 (09:51→20:24)
[2018-08-19] MEDS: Z GUARD REMEDY 2 OZ OINT TP SCH ×2 (09:51→20:24)
[2018-08-19 15:56] VITALS: BP 128/75
[2018-08-19] MEDS: GLUCERNA 1.2 1,000 ML BOTTLE GT PRN (17:58)
[2018-08-19 18:49] VITALS: BP 134/71
[2018-08-19 20:24] VITALS: BP 142/72
[2018-08-19] MEDS: ENOXAPARIN SODIUM 40 MG/0.4 ML DISP.SYRIN SQ SCH (20:24)
[2018-08-19] MEDS: ATORVASTATIN 10 MG TABLET GT SCH (21:13)
[2018-08-19] MEDS: INSULIN GLARGINE, 100 UNIT/ML CARTRIDGE SQ SCH (21:14)
[2018-08-20] VITALS: BP 132/72
[2018-08-20] MEDS: DILTIAZEM HCL 30 MG TABLET GT SCH ×5 (00:15→23:22)
[2018-08-20] MEDS: BLOOD SUGAR DIAGNOSTIC 1 EACH STRIP IN SCH ×5 (00:15→23:22)
[2018-08-20] MEDS: INSULIN ASPART/LISPRO 100 UNIT/ML CARTRIDGE SQ PRN ×5 (00:16→23:23)
[2018-08-20] MEDS: ALBUTEROL FS 2.5 MG/3 ML VIAL.NEB NEB SCH ×4 (01:37→19:24)
[2018-08-20] MEDS: IPRATROPIUM NEB FS 0.5 MG/2.5 ML AMPUL.NEB NEB SCH ×4 (01:37→19:24)
[2018-08-20] MEDS: PANTOPRAZOLE 40 MG/PACK PACK GT SCH (05:29)
[2018-08-20 06:00] VITALS: BP 143/73
[2018-08-20] MEDS: GLUCERNA 1.2 1,000 ML BOTTLE GT PRN ×2 (06:46→23:43)
[2018-08-20 07:42] VITALS: BP 108/48
[2018-08-20] MEDS: ACIDOPHILUS/BULGARICUS 1 EACH TAB.CHEW GT SCH ×2 (08:37→17:57)
[2018-08-20] MEDS: ACETAMINOPHEN 650 MG/20 ML UDC- SA PATIENTS-PAIN ONLY GT SCH ×2 (08:37→20:59)
[2018-08-20] MEDS: LEVETIRACETAM SOL (5 ML) 100 MG/ML UDC GT SCH ×2 (08:37→20:58)
[2018-08-20] MEDS: MULTIVIT W/MINERALS 1 TAB TABLET GT SCH (08:37)
[2018-08-20] MEDS: ZINC SULFATE 220 MG CAPSULE GT SCH (08:37)
[2018-08-20] MEDS: ASCORBIC ACID 500 MG TABLET GT SCH (08:37)
[2018-08-20] MEDS: FERROUS SULFATE - FOR SA ONLY 330 MG/7.5 ML UDC GT SCH (08:37)
[2018-08-20] MEDS: DOCUSATE SODIUM LIQ 100 MG/10 ML UDC GT SCH ×2 (08:37→17:57)
[2018-08-20] MEDS: VALSARTAN 80 MG TABLET GT SCH (08:40)
[2018-08-20] MEDS: Z GUARD REMEDY 2 OZ OINT TP SCH ×2 (09:00→21:37)
[2018-08-20] MEDS: HYDROGEN PEROXIDE 480 ML BOTTLE TP SCH ×2 (09:37→21:37)
[2018-08-20] MEDS: NYSTATIN/TRIAMCIN 15 GM CREAM 15 GM TUBE TP SCH ×2 (09:37→21:37)
[2018-08-20] MEDS: THERAHONEY GEL 1.5 OZ TUBE TP SCH ×2 (09:37→21:37)
[2018-08-20 12:00] VITALS: BP 119/67
[2018-08-20 18:20] VITALS: BP 141/69
[2018-08-20 20:02] VITALS: BP 122/67
[2018-08-20] MEDS: ENOXAPARIN SODIUM 40 MG/0.4 ML DISP.SYRIN SQ SCH (21:00)
[2018-08-20] MEDS: ATORVASTATIN 10 MG TABLET GT SCH (21:01)
[2018-08-20] MEDS: INSULIN GLARGINE, 100 UNIT/ML CARTRIDGE SQ SCH (21:37)
[2018-08-21 00:54] VITALS: BP 112/60
[2018-08-21] MEDS: IPRATROPIUM NEB FS 0.5 MG/2.5 ML AMPUL.NEB NEB SCH ×4 (02:16→20:10)
[2018-08-21] MEDS: ALBUTEROL FS 2.5 MG/3 ML VIAL.NEB NEB SCH ×4 (02:16→20:10)
[2018-08-21] MEDS: DILTIAZEM HCL 30 MG TABLET GT SCH ×4 (06:19→23:25)
[2018-08-21] MEDS: PANTOPRAZOLE 40 MG/PACK PACK GT SCH (06:19)
[2018-08-21] MEDS: BLOOD SUGAR DIAGNOSTIC 1 EACH STRIP IN SCH ×4 (06:19→23:25)
[2018-08-21] MEDS: INSULIN ASPART/LISPRO 100 UNIT/ML CARTRIDGE SQ PRN ×4 (06:20→23:26)
[2018-08-21 06:36] VITALS: BP 118/70
[2018-08-21 07:38] VITALS: BP 117/78
[2018-08-21] MEDS: HYDROGEN PEROXIDE 480 ML BOTTLE TP SCH ×2 (09:00→20:57)
[2018-08-21] MEDS: Z GUARD REMEDY 2 OZ OINT TP SCH ×2 (09:00→21:38)
[2018-08-21] MEDS: NYSTATIN/TRIAMCIN 15 GM CREAM 15 GM TUBE TP SCH ×2 (09:00→21:38)
[2018-08-21] MEDS ORDERED: TUBERCULIN,PURIF.PROT.DERIV. 5 TU/0.1 ML VIAL ID SCH (09:00)
[2018-08-21] MEDS: THERAHONEY GEL 1.5 OZ TUBE TP SCH ×2 (09:00→21:38)
[2018-08-21] MEDS: DOCUSATE SODIUM LIQ 100 MG/10 ML UDC GT SCH ×2 (09:12→17:55)
[2018-08-21] MEDS: LEVETIRACETAM SOL (5 ML) 100 MG/ML UDC GT SCH ×2 (09:13→20:56)
[2018-08-21] MEDS: VALSARTAN 80 MG TABLET GT SCH (09:13)
[2018-08-21] MEDS: MULTIVIT W/MINERALS 1 TAB TABLET GT SCH (09:13)
[2018-08-21] MEDS: ZINC SULFATE 220 MG CAPSULE GT SCH (09:13)
[2018-08-21] MEDS: FERROUS SULFATE - FOR SA ONLY 330 MG/7.5 ML UDC GT SCH (09:13)
[2018-08-21] MEDS: ACETAMINOPHEN 650 MG/20 ML UDC- SA PATIENTS-PAIN ONLY GT SCH ×2 (09:13→20:56)
[2018-08-21] MEDS: ASCORBIC ACID 500 MG TABLET GT SCH (09:13)
[2018-08-21] MEDS: ACIDOPHILUS/BULGARICUS 1 EACH TAB.CHEW GT SCH ×2 (09:13→17:55)
--- NOTE | 2018-08-21 10:21 | NUR ---
Ppd injection was given to resident on right forearm intradermal 0.1ml, tolerated well, [facility], lot #[id number], exp 09/04.
--- NOTE | 2018-08-21 10:37 | NUR ---
Seen and examined by Dr. Capone, NNO given.
[2018-08-21 12:00] VITALS: BP 124/70
[2018-08-21 18:00] VITALS: BP 124/73
[2018-08-21 19:41] VITALS: BP 143/74
[2018-08-21] MEDS: ENOXAPARIN SODIUM 40 MG/0.4 ML DISP.SYRIN SQ SCH (20:57)
[2018-08-21] MEDS: ATORVASTATIN 10 MG TABLET GT SCH (21:39)
[2018-08-21] MEDS: INSULIN GLARGINE, 100 UNIT/ML CARTRIDGE SQ SCH (21:51)
[2018-08-22 00:48] VITALS: BP 128/70
[2018-08-22] MEDS: ALBUTEROL FS 2.5 MG/3 ML VIAL.NEB NEB SCH ×4 (01:50→20:06)
[2018-08-22] MEDS: IPRATROPIUM NEB FS 0.5 MG/2.5 ML AMPUL.NEB NEB SCH ×4 (01:50→20:06)
[2018-08-22] MEDS: DILTIAZEM HCL 30 MG TABLET GT SCH ×4 (06:11→23:14)
[2018-08-22] MEDS: BLOOD SUGAR DIAGNOSTIC 1 EACH STRIP IN SCH ×4 (06:11→23:14)
[2018-08-22] MEDS: PANTOPRAZOLE 40 MG/PACK PACK GT SCH (06:11)
[2018-08-22] MEDS: INSULIN ASPART/LISPRO 100 UNIT/ML CARTRIDGE SQ PRN ×4 (06:13→23:15)
[2018-08-22 06:45] VITALS: BP 133/65
[2018-08-22 07:34] VITALS: BP 125/63
[2018-08-22] MEDS: THERAHONEY GEL 1.5 OZ TUBE TP SCH ×2 (09:00→21:42)
[2018-08-22] MEDS: Z GUARD REMEDY 2 OZ OINT TP SCH ×2 (09:00→21:42)
[2018-08-22] MEDS: NYSTATIN/TRIAMCIN 15 GM CREAM 15 GM TUBE TP SCH ×2 (09:00→21:42)
[2018-08-22] MEDS: HYDROGEN PEROXIDE 480 ML BOTTLE TP SCH ×2 (09:00→21:42)
[2018-08-22] MEDS: ASCORBIC ACID 500 MG TABLET GT SCH (09:00)
[2018-08-22] MEDS: ZINC SULFATE 220 MG CAPSULE GT SCH (09:00)
[2018-08-22] MEDS: MULTIVIT W/MINERALS 1 TAB TABLET GT SCH (09:59)
[2018-08-22] MEDS: ACIDOPHILUS/BULGARICUS 1 EACH TAB.CHEW GT SCH ×2 (09:59→17:59)
[2018-08-22] MEDS: DOCUSATE SODIUM LIQ 100 MG/10 ML UDC GT SCH ×2 (09:59→17:59)
[2018-08-22] MEDS: LEVETIRACETAM SOL (5 ML) 100 MG/ML UDC GT SCH ×2 (09:59→21:02)
[2018-08-22] MEDS: VALSARTAN 80 MG TABLET GT SCH (09:59)
[2018-08-22] MEDS: FERROUS SULFATE - FOR SA ONLY 330 MG/7.5 ML UDC GT SCH (09:59)
[2018-08-22] MEDS: ACETAMINOPHEN 650 MG/20 ML UDC- SA PATIENTS-PAIN ONLY GT SCH ×2 (10:00→21:03)
[2018-08-22 12:00] VITALS: BP 137/70
[2018-08-22] MEDS: GLUCERNA 1.2 1,000 ML BOTTLE GT PRN (12:41)
[2018-08-22 18:34] VITALS: BP 119/70
[2018-08-22] MEDS: ENOXAPARIN SODIUM 40 MG/0.4 ML DISP.SYRIN SQ SCH (21:05)
[2018-08-22] MEDS: ATORVASTATIN 10 MG TABLET GT SCH (21:05)
[2018-08-22] MEDS: INSULIN GLARGINE, 100 UNIT/ML CARTRIDGE SQ SCH (21:43)
[2018-08-23] VITALS (7 sets, daily range): BP systolic 90–160; BP diastolic 57–71
[2018-08-23] MEDS: IPRATROPIUM NEB FS 0.5 MG/2.5 ML AMPUL.NEB NEB SCH ×4 (02:20→20:27)
[2018-08-23] MEDS: ALBUTEROL FS 2.5 MG/3 ML VIAL.NEB NEB SCH ×4 (02:20→20:27)
[2018-08-23] MEDS: DILTIAZEM HCL 30 MG TABLET GT SCH ×3 (05:43→17:42)
[2018-08-23] MEDS: PANTOPRAZOLE 40 MG/PACK PACK GT SCH (05:44)
[2018-08-23] MEDS: BLOOD SUGAR DIAGNOSTIC 1 EACH STRIP IN SCH ×3 (06:15→17:42)
[2018-08-23] MEDS: INSULIN ASPART/LISPRO 100 UNIT/ML CARTRIDGE SQ PRN ×3 (06:15→17:48)
[2018-08-23] MEDS: FERROUS SULFATE - FOR SA ONLY 330 MG/7.5 ML UDC GT SCH (09:00)
[2018-08-23] MEDS: MULTIVIT W/MINERALS 1 TAB TABLET GT SCH (09:00)
[2018-08-23] MEDS: HYDROGEN PEROXIDE 480 ML BOTTLE TP SCH ×2 (09:00→21:34)
[2018-08-23] MEDS: ZINC SULFATE 220 MG CAPSULE GT SCH (09:00)
[2018-08-23] MEDS: DOCUSATE SODIUM LIQ 100 MG/10 ML UDC GT SCH ×2 (09:00→17:42)
[2018-08-23] MEDS: ASCORBIC ACID 500 MG TABLET GT SCH (09:00)
[2018-08-23] MEDS: NYSTATIN/TRIAMCIN 15 GM CREAM 15 GM TUBE TP SCH ×2 (09:00→21:35)
[2018-08-23] MEDS: LEVETIRACETAM SOL (5 ML) 100 MG/ML UDC GT SCH ×2 (09:00→21:34)
[2018-08-23] MEDS: ACETAMINOPHEN 650 MG/20 ML UDC- SA PATIENTS-PAIN ONLY GT SCH ×2 (09:00→21:34)
[2018-08-23] MEDS: Z GUARD REMEDY 2 OZ OINT TP SCH ×2 (09:00→21:35)
[2018-08-23] MEDS: THERAHONEY GEL 1.5 OZ TUBE TP SCH ×2 (09:00→21:35)
[2018-08-23] MEDS: ACIDOPHILUS/BULGARICUS 1 EACH TAB.CHEW GT SCH ×2 (09:00→17:42)
[2018-08-23] MEDS: VALSARTAN 80 MG TABLET GT SCH (09:00)
[2018-08-23] MEDS: GLUCERNA 1.2 1,000 ML BOTTLE GT PRN (17:47)
--- NOTE | 2018-08-23 20:37 | NUR ---
Daughter came to visit and brought radio and some personal items for bathing.She reminded the staffs just use only personal product that she supplies,do not use hospital product because her mother skin is sensitive.She also asked for the community center director number,she want to talk to her and also the SW.
[2018-08-23] MEDS: ENOXAPARIN SODIUM 40 MG/0.4 ML DISP.SYRIN SQ SCH (21:00)
[2018-08-23] MEDS: ATORVASTATIN 10 MG TABLET GT SCH (22:52)
[2018-08-23] MEDS: INSULIN GLARGINE, 100 UNIT/ML CARTRIDGE SQ SCH (22:53)
[2018-08-24] VITALS: BP 148/77
[2018-08-24] MEDS: DILTIAZEM HCL 30 MG TABLET GT SCH ×4 (00:09→17:45)
[2018-08-24] MEDS: BLOOD SUGAR DIAGNOSTIC 1 EACH STRIP IN SCH ×4 (00:09→17:45)
[2018-08-24] MEDS: GLUCERNA 1.2 1,000 ML BOTTLE GT PRN ×2 (00:12→17:45)
[2018-08-24] MEDS: INSULIN ASPART/LISPRO 100 UNIT/ML CARTRIDGE SQ PRN ×4 (00:12→17:45)
[2018-08-24] MEDS: IPRATROPIUM NEB FS 0.5 MG/2.5 ML AMPUL.NEB NEB SCH ×4 (02:01→19:44)
[2018-08-24] MEDS: ALBUTEROL FS 2.5 MG/3 ML VIAL.NEB NEB SCH ×4 (02:01→19:44)
[2018-08-24] MEDS: PANTOPRAZOLE 40 MG/PACK PACK GT SCH (05:40)
[2018-08-24 06:00] VITALS: BP 138/71
[2018-08-24 07:34] VITALS: BP 109/69
[2018-08-24] MEDS: VALSARTAN 80 MG TABLET GT SCH (09:00)
[2018-08-24] MEDS: FERROUS SULFATE - FOR SA ONLY 330 MG/7.5 ML UDC GT SCH (09:41)
[2018-08-24] MEDS: LEVETIRACETAM SOL (5 ML) 100 MG/ML UDC GT SCH ×2 (09:41→21:08)
[2018-08-24] MEDS: MULTIVIT W/MINERALS 1 TAB TABLET GT SCH (09:41)
[2018-08-24] MEDS: ACIDOPHILUS/BULGARICUS 1 EACH TAB.CHEW GT SCH ×2 (09:41→17:44)
[2018-08-24] MEDS: DOCUSATE SODIUM LIQ 100 MG/10 ML UDC GT SCH ×2 (09:41→17:44)
[2018-08-24] MEDS: Z GUARD REMEDY 2 OZ OINT TP SCH ×2 (09:42→21:10)
[2018-08-24] MEDS: ASCORBIC ACID 500 MG TABLET GT SCH (09:42)
[2018-08-24] MEDS: HYDROGEN PEROXIDE 480 ML BOTTLE TP SCH ×2 (09:42→21:10)
[2018-08-24] MEDS: THERAHONEY GEL 1.5 OZ TUBE TP SCH ×2 (09:42→21:10)
[2018-08-24] MEDS: ZINC SULFATE 220 MG CAPSULE GT SCH (09:42)
[2018-08-24] MEDS: NYSTATIN/TRIAMCIN 15 GM CREAM 15 GM TUBE TP SCH ×2 (09:42→21:10)
[2018-08-24] MEDS: ACETAMINOPHEN 650 MG/20 ML UDC- SA PATIENTS-PAIN ONLY GT SCH ×2 (09:42→21:09)
[2018-08-24 12:00] VITALS: BP 122/79
--- NOTE | 2018-08-24 13:24 | NUR ---
Daughter Kelly communicated with ORACIO requesting that activity staff utilize the radio she brought to pt. Daughter said she will bring CDS and want make sure his mother will listen to the music daily. Daughter also expressed concerns about mother's oral hygiene and asked ORACIO to let charge nurse know that pt needs to have her teeth "swabbed". ORACIO informed music coordinator Nadeem and charge nurse Janice about the request.
[2018-08-24 18:53] VITALS: BP 132/76
[2018-08-24 19:32] VITALS: BP 131/69
[2018-08-24] MEDS: ENOXAPARIN SODIUM 40 MG/0.4 ML DISP.SYRIN SQ SCH (21:09)
[2018-08-24] MEDS: INSULIN GLARGINE, 100 UNIT/ML CARTRIDGE SQ SCH (21:10)
[2018-08-24] MEDS: ATORVASTATIN 10 MG TABLET GT SCH (21:10)
[2018-08-25] VITALS: BP 125/74
[2018-08-25] MEDS: BLOOD SUGAR DIAGNOSTIC 1 EACH STRIP IN SCH ×4 (00:41→17:45)
[2018-08-25] MEDS: DILTIAZEM HCL 30 MG TABLET GT SCH ×4 (00:41→17:41)
[2018-08-25] MEDS: INSULIN ASPART/LISPRO 100 UNIT/ML CARTRIDGE SQ PRN ×4 (00:41→17:46)
[2018-08-25] MEDS: ALBUTEROL FS 2.5 MG/3 ML VIAL.NEB NEB SCH ×4 (01:40→20:04)
[2018-08-25] MEDS: IPRATROPIUM NEB FS 0.5 MG/2.5 ML AMPUL.NEB NEB SCH ×4 (01:40→20:04)
[2018-08-25] MEDS: PANTOPRAZOLE 40 MG/PACK PACK GT SCH (05:54)
[2018-08-25 06:00] VITALS: BP 147/82
[2018-08-25] MEDS: DOCUSATE SODIUM LIQ 100 MG/10 ML UDC GT SCH ×2 (09:32→17:41)
[2018-08-25] MEDS: VALSARTAN 80 MG TABLET GT SCH (09:34)
[2018-08-25] MEDS: MULTIVIT W/MINERALS 1 TAB TABLET GT SCH (09:34)
[2018-08-25] MEDS: LEVETIRACETAM SOL (5 ML) 100 MG/ML UDC GT SCH ×2 (09:34→21:00)
[2018-08-25] MEDS: FERROUS SULFATE - FOR SA ONLY 330 MG/7.5 ML UDC GT SCH (09:34)
[2018-08-25] MEDS: ACIDOPHILUS/BULGARICUS 1 EACH TAB.CHEW GT SCH ×2 (09:34→17:41)
[2018-08-25] MEDS: ZINC SULFATE 220 MG CAPSULE GT SCH (09:35)
[2018-08-25] MEDS: ACETAMINOPHEN 650 MG/20 ML UDC- SA PATIENTS-PAIN ONLY GT SCH ×2 (09:35→21:00)
[2018-08-25] MEDS: ASCORBIC ACID 500 MG TABLET GT SCH (09:35)
[2018-08-25] MEDS: HYDROGEN PEROXIDE 480 ML BOTTLE TP SCH ×2 (10:35→21:00)
[2018-08-25] MEDS: Z GUARD REMEDY 2 OZ OINT TP SCH ×2 (10:35→21:00)
[2018-08-25] MEDS: THERAHONEY GEL 1.5 OZ TUBE TP SCH ×2 (10:35→21:00)
[2018-08-25] MEDS: NYSTATIN/TRIAMCIN 15 GM CREAM 15 GM TUBE TP SCH ×2 (10:35→21:00)
[2018-08-25 12:00] VITALS: BP 119/71
[2018-08-25] MEDS: GLUCERNA 1.2 1,000 ML BOTTLE GT PRN (12:44)
[2018-08-25 15:12] VITALS: BP 134/71
--- NOTE | 2018-08-25 15:59 | NUR ---
RT NOTE: RECEIVED PT ON 28% C/A. NO RESPIRATORY DISTRESS NOTED. TRACH CHECKED SECURE AND PATENT. SXD AND LAVAGED PT Q ROUNDS AND NEEDED. TXS GIVEN ORDERED WITH NO ADVERSE REACTIONS NOTED. EMERGENCY EQUIPMENT @ BEDSIDE. WILL CONTINUE TO MONITOR.
[2018-08-25 18:30] VITALS: BP 142/74
[2018-08-25 19:32] VITALS: BP 145/74
[2018-08-25] MEDS: ENOXAPARIN SODIUM 40 MG/0.4 ML DISP.SYRIN SQ SCH (21:00)
[2018-08-25] MEDS: ATORVASTATIN 10 MG TABLET GT SCH (22:08)
[2018-08-25] MEDS: INSULIN GLARGINE, 100 UNIT/ML CARTRIDGE SQ SCH (23:00)
[2018-08-26] MEDS: BLOOD SUGAR DIAGNOSTIC 1 EACH STRIP IN SCH ×4 (00:06→18:00)
[2018-08-26] MEDS: DILTIAZEM HCL 30 MG TABLET GT SCH ×4 (00:07→17:08)
[2018-08-26] MEDS: INSULIN ASPART/LISPRO 100 UNIT/ML CARTRIDGE SQ PRN ×2 (00:18→12:57)
[2018-08-26 00:57] VITALS: BP 145/74
[2018-08-26] MEDS: ALBUTEROL FS 2.5 MG/3 ML VIAL.NEB NEB SCH ×4 (02:00→20:07)
[2018-08-26] MEDS: IPRATROPIUM NEB FS 0.5 MG/2.5 ML AMPUL.NEB NEB SCH ×4 (02:00→20:07)
[2018-08-26] MEDS: GLUCERNA 1.2 1,000 ML BOTTLE GT PRN ×2 (06:13→20:56)
[2018-08-26] MEDS: PANTOPRAZOLE 40 MG/PACK PACK GT SCH (06:13)
[2018-08-26 06:48] VITALS: BP 98/65
[2018-08-26 08:00] VITALS: BP 100/63
[2018-08-26] MEDS: VALSARTAN 80 MG TABLET GT SCH (09:00)
[2018-08-26] MEDS: DOCUSATE SODIUM LIQ 100 MG/10 ML UDC GT SCH ×2 (09:40→17:08)
[2018-08-26] MEDS: MULTIVIT W/MINERALS 1 TAB TABLET GT SCH (09:41)
[2018-08-26] MEDS: FERROUS SULFATE - FOR SA ONLY 330 MG/7.5 ML UDC GT SCH (09:41)
[2018-08-26] MEDS: LEVETIRACETAM SOL (5 ML) 100 MG/ML UDC GT SCH ×2 (09:41→20:53)
[2018-08-26] MEDS: ACIDOPHILUS/BULGARICUS 1 EACH TAB.CHEW GT SCH ×2 (09:41→17:08)
[2018-08-26] MEDS: ACETAMINOPHEN 650 MG/20 ML UDC- SA PATIENTS-PAIN ONLY GT SCH ×2 (09:41→20:53)
[2018-08-26] MEDS: ASCORBIC ACID 500 MG TABLET GT SCH (09:42)
[2018-08-26] MEDS: NYSTATIN/TRIAMCIN 15 GM CREAM 15 GM TUBE TP SCH ×2 (09:42→20:55)
[2018-08-26] MEDS: Z GUARD REMEDY 2 OZ OINT TP SCH ×2 (09:42→20:55)
[2018-08-26] MEDS: ZINC SULFATE 220 MG CAPSULE GT SCH (09:42)
[2018-08-26] MEDS: HYDROGEN PEROXIDE 480 ML BOTTLE TP SCH ×2 (09:42→20:54)
[2018-08-26] MEDS: THERAHONEY GEL 1.5 OZ TUBE TP SCH ×2 (09:44→20:55)
[2018-08-26 15:03] VITALS: BP 104/65
[2018-08-26 18:20] VITALS: BP 144/68
[2018-08-26] MEDS: ENOXAPARIN SODIUM 40 MG/0.4 ML DISP.SYRIN SQ SCH (20:54)
[2018-08-26] MEDS: ATORVASTATIN 10 MG TABLET GT SCH (22:00)
[2018-08-26] MEDS: INSULIN GLARGINE, 100 UNIT/ML CARTRIDGE SQ SCH (22:01)
[2018-08-27] MEDS: BLOOD SUGAR DIAGNOSTIC 1 EACH STRIP IN SCH ×5 (00:15→23:24)
[2018-08-27] MEDS: INSULIN ASPART/LISPRO 100 UNIT/ML CARTRIDGE SQ PRN ×5 (00:17→23:25)
[2018-08-27 00:23] VITALS: BP 100/55
[2018-08-27] MEDS: IPRATROPIUM NEB FS 0.5 MG/2.5 ML AMPUL.NEB NEB SCH ×4 (01:35→19:38)
[2018-08-27] MEDS: ALBUTEROL FS 2.5 MG/3 ML VIAL.NEB NEB SCH ×4 (01:36→19:38)
[2018-08-27] MEDS: DILTIAZEM HCL 30 MG TABLET GT SCH ×5 (05:43→23:26)
[2018-08-27] MEDS: PANTOPRAZOLE 40 MG/PACK PACK GT SCH (05:44)
[2018-08-27 06:11] VITALS: BP 108/77
[2018-08-27 07:35] VITALS: BP 124/56
[2018-08-27] MEDS: ACETAMINOPHEN 650 MG/20 ML UDC- SA PATIENTS-PAIN ONLY GT SCH ×2 (08:58→20:45)
[2018-08-27] MEDS: LEVETIRACETAM SOL (5 ML) 100 MG/ML UDC GT SCH ×2 (08:58→20:45)
[2018-08-27] MEDS: DOCUSATE SODIUM LIQ 100 MG/10 ML UDC GT SCH ×2 (08:58→17:10)
[2018-08-27] MEDS: MULTIVIT W/MINERALS 1 TAB TABLET GT SCH (08:58)
[2018-08-27] MEDS: ASCORBIC ACID 500 MG TABLET GT SCH (08:58)
[2018-08-27] MEDS: ACIDOPHILUS/BULGARICUS 1 EACH TAB.CHEW GT SCH ×2 (08:58→17:10)
[2018-08-27] MEDS: FERROUS SULFATE - FOR SA ONLY 330 MG/7.5 ML UDC GT SCH (08:58)
[2018-08-27] MEDS: ZINC SULFATE 220 MG CAPSULE GT SCH (08:59)
[2018-08-27] MEDS: VALSARTAN 80 MG TABLET GT SCH (09:00)
[2018-08-27] MEDS: THERAHONEY GEL 1.5 OZ TUBE TP SCH ×2 (09:00→20:47)
[2018-08-27] MEDS: HYDROGEN PEROXIDE 480 ML BOTTLE TP SCH ×2 (09:00→20:47)
[2018-08-27] MEDS: NYSTATIN/TRIAMCIN 15 GM CREAM 15 GM TUBE TP SCH ×2 (09:00→20:47)
[2018-08-27] MEDS: Z GUARD REMEDY 2 OZ OINT TP SCH ×2 (09:00→20:47)
[2018-08-27 12:00] VITALS: BP 120/70
[2018-08-27 18:24] VITALS: BP 150/83
[2018-08-27 20:23] VITALS: BP 121/60
[2018-08-27] MEDS: ENOXAPARIN SODIUM 40 MG/0.4 ML DISP.SYRIN SQ SCH (20:46)
[2018-08-27] MEDS: ATORVASTATIN 10 MG TABLET GT SCH (21:39)
[2018-08-27] MEDS: INSULIN GLARGINE, 100 UNIT/ML CARTRIDGE SQ SCH (21:40)
[2018-08-27] MEDS: GLUCERNA 1.2 1,000 ML BOTTLE GT PRN (23:41)
[2018-08-28] MEDS: ALBUTEROL FS 2.5 MG/3 ML VIAL.NEB NEB SCH ×4 (01:00→19:39)
[2018-08-28] MEDS: IPRATROPIUM NEB FS 0.5 MG/2.5 ML AMPUL.NEB NEB SCH ×4 (01:00→19:39)
[2018-08-28 01:26] VITALS: BP 124/71
[2018-08-28] MEDS: DILTIAZEM HCL 30 MG TABLET GT SCH ×3 (05:51→18:43)
[2018-08-28] MEDS: BLOOD SUGAR DIAGNOSTIC 1 EACH STRIP IN SCH ×3 (05:52→18:43)
[2018-08-28] MEDS: PANTOPRAZOLE 40 MG/PACK PACK GT SCH (05:52)
[2018-08-28] MEDS: INSULIN ASPART/LISPRO 100 UNIT/ML CARTRIDGE SQ PRN ×2 (05:54→18:43)
[2018-08-28 06:10] VITALS: BP 139/79
[2018-08-28 07:45] VITALS: BP 114/68
[2018-08-28] MEDS: VALSARTAN 80 MG TABLET GT SCH (08:08)
[2018-08-28] MEDS: FERROUS SULFATE - FOR SA ONLY 330 MG/7.5 ML UDC GT SCH (08:08)
[2018-08-28] MEDS: MULTIVIT W/MINERALS 1 TAB TABLET GT SCH (08:08)
[2018-08-28] MEDS: ACIDOPHILUS/BULGARICUS 1 EACH TAB.CHEW GT SCH ×2 (08:08→17:00)
[2018-08-28] MEDS: LEVETIRACETAM SOL (5 ML) 100 MG/ML UDC GT SCH ×2 (08:08→20:31)
[2018-08-28] MEDS: DOCUSATE SODIUM LIQ 100 MG/10 ML UDC GT SCH ×2 (08:08→17:00)
[2018-08-28] MEDS: ACETAMINOPHEN 650 MG/20 ML UDC- SA PATIENTS-PAIN ONLY GT SCH ×2 (08:09→20:31)
[2018-08-28] MEDS: ASCORBIC ACID 500 MG TABLET GT SCH (08:09)
[2018-08-28] MEDS: ZINC SULFATE 220 MG CAPSULE GT SCH (08:09)
--- NOTE | 2018-08-28 09:20 | NUR ---
Seen and examined by VANITA Marsh given at this time.
[2018-08-28] MEDS: Z GUARD REMEDY 2 OZ OINT TP SCH ×2 (10:30→20:33)
[2018-08-28] MEDS: HYDROGEN PEROXIDE 480 ML BOTTLE TP SCH ×2 (10:30→20:32)
[2018-08-28] MEDS: THERAHONEY GEL 1.5 OZ TUBE TP SCH ×2 (10:30→20:34)
[2018-08-28] MEDS: NYSTATIN/TRIAMCIN 15 GM CREAM 15 GM TUBE TP SCH ×2 (10:30→20:32)
[2018-08-28 12:00] VITALS: BP 135/72
[2018-08-28 19:14] VITALS: BP 148/78
[2018-08-28 19:50] VITALS: BP 141/65
[2018-08-28] MEDS: ENOXAPARIN SODIUM 40 MG/0.4 ML DISP.SYRIN SQ SCH (20:32)
[2018-08-28] MEDS: ATORVASTATIN 10 MG TABLET GT SCH (22:04)
[2018-08-28] MEDS: INSULIN GLARGINE, 100 UNIT/ML CARTRIDGE SQ SCH (22:04)
[2018-08-29] MEDS: BLOOD SUGAR DIAGNOSTIC 1 EACH STRIP IN SCH ×4 (00:04→18:21)
[2018-08-29] MEDS: INSULIN ASPART/LISPRO 100 UNIT/ML CARTRIDGE SQ PRN ×4 (00:04→18:23)
[2018-08-29] MEDS: DILTIAZEM HCL 30 MG TABLET GT SCH ×4 (00:04→17:26)
[2018-08-29 00:14] VITALS: BP 119/55
[2018-08-29] MEDS: IPRATROPIUM NEB FS 0.5 MG/2.5 ML AMPUL.NEB NEB SCH ×4 (00:57→19:30)
[2018-08-29] MEDS: ALBUTEROL FS 2.5 MG/3 ML VIAL.NEB NEB SCH ×4 (00:57→19:30)
[2018-08-29] MEDS: PANTOPRAZOLE 40 MG/PACK PACK GT SCH (05:48)
[2018-08-29 06:14] VITALS: BP 120/67
[2018-08-29 08:00] VITALS: BP 144/74
[2018-08-29] MEDS: HYDROGEN PEROXIDE 480 ML BOTTLE TP SCH ×2 (09:00→21:40)
[2018-08-29] MEDS: VALSARTAN 80 MG TABLET GT SCH (09:00)
[2018-08-29] MEDS: DOCUSATE SODIUM LIQ 100 MG/10 ML UDC GT SCH ×2 (09:02→17:10)
[2018-08-29] MEDS: FERROUS SULFATE - FOR SA ONLY 330 MG/7.5 ML UDC GT SCH (09:03)
[2018-08-29] MEDS: MULTIVIT W/MINERALS 1 TAB TABLET GT SCH (09:04)
[2018-08-29] MEDS: ASCORBIC ACID 500 MG TABLET GT SCH (09:04)
[2018-08-29] MEDS: ACETAMINOPHEN 650 MG/20 ML UDC- SA PATIENTS-PAIN ONLY GT SCH ×2 (09:04→21:05)
[2018-08-29] MEDS: ZINC SULFATE 220 MG CAPSULE GT SCH (09:04)
[2018-08-29] MEDS: ACIDOPHILUS/BULGARICUS 1 EACH TAB.CHEW GT SCH ×2 (09:04→17:10)
[2018-08-29] MEDS: LEVETIRACETAM SOL (5 ML) 100 MG/ML UDC GT SCH ×2 (09:06→21:05)
[2018-08-29] MEDS: Z GUARD REMEDY 2 OZ OINT TP SCH ×2 (10:00→21:40)
[2018-08-29] MEDS: THERAHONEY GEL 1.5 OZ TUBE TP SCH ×2 (10:00→21:40)
[2018-08-29] MEDS: NYSTATIN/TRIAMCIN 15 GM CREAM 15 GM TUBE TP SCH ×2 (10:00→21:40)
[2018-08-29 12:45] VITALS: BP 119/65
[2018-08-29] MEDS: GLUCERNA 1.2 1,000 ML BOTTLE GT PRN (13:04)
[2018-08-29 18:26] VITALS: BP 148/79
[2018-08-29 20:21] VITALS: BP 146/83
[2018-08-29] MEDS: ENOXAPARIN SODIUM 40 MG/0.4 ML DISP.SYRIN SQ SCH (21:05)
[2018-08-29] MEDS: ATORVASTATIN 10 MG TABLET GT SCH (22:20)
[2018-08-29] MEDS: INSULIN GLARGINE, 100 UNIT/ML CARTRIDGE SQ SCH (22:26)
[2018-08-30 00:13] VITALS: BP 122/76
[2018-08-30] MEDS: BLOOD SUGAR DIAGNOSTIC 1 EACH STRIP IN SCH ×4 (00:15→17:57)
[2018-08-30] MEDS: DILTIAZEM HCL 30 MG TABLET GT SCH ×4 (00:15→17:55)
[2018-08-30] MEDS: INSULIN ASPART/LISPRO 100 UNIT/ML CARTRIDGE SQ PRN ×4 (00:17→18:46)
[2018-08-30] MEDS: IPRATROPIUM NEB FS 0.5 MG/2.5 ML AMPUL.NEB NEB SCH ×4 (01:33→19:37)
[2018-08-30] MEDS: ALBUTEROL FS 2.5 MG/3 ML VIAL.NEB NEB SCH ×4 (01:33→19:37)
[2018-08-30] MEDS: GLUCERNA 1.2 1,000 ML BOTTLE GT PRN ×2 (02:29→19:52)
[2018-08-30] MEDS: PANTOPRAZOLE 40 MG/PACK PACK GT SCH (06:08)
[2018-08-30 06:11] VITALS: BP 132/87
[2018-08-30 07:40] VITALS: BP 134/78
[2018-08-30] MEDS: THERAHONEY GEL 1.5 OZ TUBE TP SCH ×2 (09:00→20:56)
[2018-08-30] MEDS: VALSARTAN 80 MG TABLET GT SCH (09:00)
[2018-08-30] MEDS: ZINC SULFATE 220 MG CAPSULE GT SCH (09:00)
[2018-08-30] MEDS: FERROUS SULFATE - FOR SA ONLY 330 MG/7.5 ML UDC GT SCH (09:00)
[2018-08-30] MEDS: NYSTATIN/TRIAMCIN 15 GM CREAM 15 GM TUBE TP SCH ×2 (09:00→20:55)
[2018-08-30] MEDS: Z GUARD REMEDY 2 OZ OINT TP SCH ×2 (09:00→20:56)
[2018-08-30] MEDS: LEVETIRACETAM SOL (5 ML) 100 MG/ML UDC GT SCH ×2 (09:00→20:08)
[2018-08-30] MEDS: DOCUSATE SODIUM LIQ 100 MG/10 ML UDC GT SCH ×2 (09:00→17:56)
[2018-08-30] MEDS: ACETAMINOPHEN 650 MG/20 ML UDC- SA PATIENTS-PAIN ONLY GT SCH ×2 (09:00→20:09)
[2018-08-30] MEDS: ASCORBIC ACID 500 MG TABLET GT SCH (09:00)
[2018-08-30] MEDS: ACIDOPHILUS/BULGARICUS 1 EACH TAB.CHEW GT SCH ×2 (09:00→17:56)
[2018-08-30] MEDS: HYDROGEN PEROXIDE 480 ML BOTTLE TP SCH ×2 (09:00→20:55)
[2018-08-30] MEDS: MULTIVIT W/MINERALS 1 TAB TABLET GT SCH (10:37)
[2018-08-30 12:00] VITALS: BP 128/76
[2018-08-30 18:00] VITALS: BP 114/74
[2018-08-30] MEDS: ENOXAPARIN SODIUM 40 MG/0.4 ML DISP.SYRIN SQ SCH (20:09)
[2018-08-30 20:29] VITALS: BP 112/66
[2018-08-30] MEDS: ATORVASTATIN 10 MG TABLET GT SCH (22:04)
[2018-08-30] MEDS: INSULIN GLARGINE, 100 UNIT/ML CARTRIDGE SQ SCH (22:10)
--- NOTE | 2018-08-31 | NUR ---
offset plate preparation supervisor notes blood sugar checked done 135. no insulin given a this time no signs of hypo glycemia noted.
[2018-08-31] MEDS: BLOOD SUGAR DIAGNOSTIC 1 EACH STRIP IN SCH ×4 (00:28→17:48)
[2018-08-31] MEDS: DILTIAZEM HCL 30 MG TABLET GT SCH ×4 (00:32→17:48)
[2018-08-31 00:34] VITALS: BP 125/81
[2018-08-31] MEDS: ALBUTEROL FS 2.5 MG/3 ML VIAL.NEB NEB SCH ×4 (00:44→19:52)
[2018-08-31] MEDS: IPRATROPIUM NEB FS 0.5 MG/2.5 ML AMPUL.NEB NEB SCH ×4 (00:44→19:52)
[2018-08-31 06:00] VITALS: BP 130/82
[2018-08-31] MEDS: PANTOPRAZOLE 40 MG/PACK PACK GT SCH (06:18)
[2018-08-31] MEDS: INSULIN ASPART/LISPRO 100 UNIT/ML CARTRIDGE SQ PRN ×3 (06:20→17:49)
--- NOTE | 2018-08-31 07:00 | NUR ---
lace roller notes blood sugar checked done 159, 2 units of insulin given maranda SQ as ordered. Stable maranda the nights and all due meds given. kept her warm and comfortable at all times. Endorse to am nurse for continuity of care.
[2018-08-31 08:02] VITALS: BP 129/60
[2018-08-31] MEDS: ACETAMINOPHEN 650 MG/20 ML UDC- SA PATIENTS-PAIN ONLY GT SCH ×2 (08:59→21:00)
[2018-08-31] MEDS: ZINC SULFATE 220 MG CAPSULE GT SCH (09:06)
[2018-08-31] MEDS: FERROUS SULFATE - FOR SA ONLY 330 MG/7.5 ML UDC GT SCH (09:06)
[2018-08-31] MEDS: ACIDOPHILUS/BULGARICUS 1 EACH TAB.CHEW GT SCH ×2 (09:06→17:48)
[2018-08-31] MEDS: LEVETIRACETAM SOL (5 ML) 100 MG/ML UDC GT SCH ×2 (09:06→21:17)
[2018-08-31] MEDS: VALSARTAN 80 MG TABLET GT SCH (09:06)
[2018-08-31] MEDS: DOCUSATE SODIUM LIQ 100 MG/10 ML UDC GT SCH ×2 (09:06→17:48)
[2018-08-31] MEDS: MULTIVIT W/MINERALS 1 TAB TABLET GT SCH (09:06)
[2018-08-31] MEDS: ASCORBIC ACID 500 MG TABLET GT SCH (09:06)
[2018-08-31] MEDS: Z GUARD REMEDY 2 OZ OINT TP SCH ×2 (09:40→21:00)
[2018-08-31] MEDS: THERAHONEY GEL 1.5 OZ TUBE TP SCH ×2 (09:40→21:00)
[2018-08-31] MEDS: NYSTATIN/TRIAMCIN 15 GM CREAM 15 GM TUBE TP SCH ×2 (09:40→21:00)
[2018-08-31] MEDS: HYDROGEN PEROXIDE 480 ML BOTTLE TP SCH ×2 (09:40→21:00)
[2018-08-31 12:49] VITALS: BP 120/73
[2018-08-31] MEDS: GLUCERNA 1.2 1,000 ML BOTTLE GT PRN (15:50)
[2018-08-31 18:16] VITALS: BP 142/72
[2018-08-31 19:51] VITALS: BP 126/76
[2018-08-31] MEDS: ENOXAPARIN SODIUM 40 MG/0.4 ML DISP.SYRIN SQ SCH (21:18)
[2018-08-31] MEDS: ATORVASTATIN 10 MG TABLET GT SCH (21:19)
[2018-08-31] MEDS: INSULIN GLARGINE, 100 UNIT/ML CARTRIDGE SQ SCH (23:03)
[2018-09-01] VITALS: BP 131/71
[2018-09-01] MEDS: INSULIN ASPART/LISPRO 100 UNIT/ML CARTRIDGE SQ PRN ×4 (02:00→17:34)
[2018-09-01] MEDS: IPRATROPIUM NEB FS 0.5 MG/2.5 ML AMPUL.NEB NEB SCH ×4 (02:10→19:55)
[2018-09-01] MEDS: ALBUTEROL FS 2.5 MG/3 ML VIAL.NEB NEB SCH ×4 (02:24→19:56)
[2018-09-01 06:00] VITALS: BP 121/72
[2018-09-01] MEDS: DILTIAZEM HCL 30 MG TABLET GT SCH ×4 (06:41→17:32)
[2018-09-01] MEDS: BLOOD SUGAR DIAGNOSTIC 1 EACH STRIP IN SCH ×4 (06:41→17:33)
[2018-09-01] MEDS: PANTOPRAZOLE 40 MG/PACK PACK GT SCH (06:41)
[2018-09-01] MEDS: GLUCERNA 1.2 1,000 ML BOTTLE GT PRN ×2 (06:55→23:00)
[2018-09-01 08:02] VITALS: BP 155/87
[2018-09-01] MEDS: VALSARTAN 80 MG TABLET GT SCH (09:00)
[2018-09-01] MEDS: ACETAMINOPHEN 650 MG/20 ML UDC- SA PATIENTS-PAIN ONLY GT SCH ×2 (09:08→21:27)
[2018-09-01] MEDS: ZINC SULFATE 220 MG CAPSULE GT SCH (09:19)
[2018-09-01] MEDS: LEVETIRACETAM SOL (5 ML) 100 MG/ML UDC GT SCH ×2 (09:19→21:27)
[2018-09-01] MEDS: FERROUS SULFATE - FOR SA ONLY 330 MG/7.5 ML UDC GT SCH (09:19)
[2018-09-01] MEDS: MULTIVIT W/MINERALS 1 TAB TABLET GT SCH (09:19)
[2018-09-01] MEDS: ASCORBIC ACID 500 MG TABLET GT SCH (09:19)
[2018-09-01] MEDS: DOCUSATE SODIUM LIQ 100 MG/10 ML UDC GT SCH ×2 (09:19→17:32)
[2018-09-01] MEDS: ACIDOPHILUS/BULGARICUS 1 EACH TAB.CHEW GT SCH ×2 (09:19→17:32)
[2018-09-01] MEDS: NYSTATIN/TRIAMCIN 15 GM CREAM 15 GM TUBE TP SCH ×2 (09:56→21:27)
[2018-09-01] MEDS: Z GUARD REMEDY 2 OZ OINT TP SCH ×2 (09:56→21:27)
[2018-09-01] MEDS: HYDROGEN PEROXIDE 480 ML BOTTLE TP SCH ×2 (09:56→21:27)
[2018-09-01] MEDS: THERAHONEY GEL 1.5 OZ TUBE TP SCH ×2 (09:56→21:27)
[2018-09-01 12:57] VITALS: BP 129/73
[2018-09-01 18:18] VITALS: BP 123/64
[2018-09-01 20:14] VITALS: BP 130/64
[2018-09-01] MEDS: ATORVASTATIN 10 MG TABLET GT SCH (21:27)
[2018-09-01] MEDS: ENOXAPARIN SODIUM 40 MG/0.4 ML DISP.SYRIN SQ SCH (21:48)
[2018-09-01] MEDS: INSULIN GLARGINE, 100 UNIT/ML CARTRIDGE SQ SCH (21:49)
[2018-09-02] VITALS (7 sets, daily range): BP systolic 102–135; BP diastolic 60–79
[2018-09-02] MEDS: DILTIAZEM HCL 30 MG TABLET GT SCH ×4 (00:41→17:18)
[2018-09-02] MEDS: BLOOD SUGAR DIAGNOSTIC 1 EACH STRIP IN SCH ×4 (00:41→17:48)
[2018-09-02] MEDS: INSULIN ASPART/LISPRO 100 UNIT/ML CARTRIDGE SQ PRN ×4 (00:43→17:49)
[2018-09-02] MEDS: ALBUTEROL FS 2.5 MG/3 ML VIAL.NEB NEB SCH ×4 (01:23→20:00)
[2018-09-02] MEDS: IPRATROPIUM NEB FS 0.5 MG/2.5 ML AMPUL.NEB NEB SCH ×4 (01:23→20:00)
[2018-09-02] MEDS: PANTOPRAZOLE 40 MG/PACK PACK GT SCH (05:15)
[2018-09-02] MEDS: ACETAMINOPHEN 650 MG/20 ML UDC- SA PATIENTS-PAIN ONLY GT SCH ×3 (09:07→21:42)
[2018-09-02] MEDS: LEVETIRACETAM SOL (5 ML) 100 MG/ML UDC GT SCH ×2 (09:18→20:42)
[2018-09-02] MEDS: DOCUSATE SODIUM LIQ 100 MG/10 ML UDC GT SCH ×2 (09:18→17:17)
[2018-09-02] MEDS: VALSARTAN 80 MG TABLET GT SCH (09:18)
[2018-09-02] MEDS: ZINC SULFATE 220 MG CAPSULE GT SCH (09:18)
[2018-09-02] MEDS: FERROUS SULFATE - FOR SA ONLY 330 MG/7.5 ML UDC GT SCH (09:18)
[2018-09-02] MEDS: ASCORBIC ACID 500 MG TABLET GT SCH (09:18)
[2018-09-02] MEDS: MULTIVIT W/MINERALS 1 TAB TABLET GT SCH (09:18)
[2018-09-02] MEDS: ACIDOPHILUS/BULGARICUS 1 EACH TAB.CHEW GT SCH ×2 (09:18→17:17)
[2018-09-02] MEDS: HYDROGEN PEROXIDE 480 ML BOTTLE TP SCH ×2 (09:40→20:44)
[2018-09-02] MEDS: THERAHONEY GEL 1.5 OZ TUBE TP SCH ×2 (09:40→20:44)
[2018-09-02] MEDS: Z GUARD REMEDY 2 OZ OINT TP SCH ×2 (09:40→20:44)
--- NOTE | 2018-09-02 11:24 | NUR ---
RT MONTHLY TRACH CHANGE DONE WITH NEW PORTEX 9. TRACH CHANGE DONE WITH NO COMPLICATIONS. EQUAL BILATERAL BREATHE SOUNDS AND CHEST RISE NOTED. NO BLEEDING OR REDNESS AT TRACH SITE. PT PLACED BACK ON COOL AEROSOL. NO RESPIRATORY DISTRESS NOTED. Addendum: 09/02/18 at 1139 by FIGUEROA BHATIA RT Amended: Links added.
[2018-09-02] MEDS: GLUCERNA 1.2 1,000 ML BOTTLE GT PRN (17:18)
[2018-09-02] MEDS: ENOXAPARIN SODIUM 40 MG/0.4 ML DISP.SYRIN SQ SCH (20:43)
[2018-09-02] MEDS: CLOTRIMAZOLE 1% CREAM 24 GM TUBE TP SCH (20:44)
[2018-09-02] MEDS: ATORVASTATIN 10 MG TABLET GT SCH (21:43)
[2018-09-02] MEDS: INSULIN GLARGINE, 100 UNIT/ML CARTRIDGE SQ SCH (21:44)
[2018-09-03] MEDS: DILTIAZEM HCL 30 MG TABLET GT SCH ×4 (00:38→17:52)
[2018-09-03] MEDS: BLOOD SUGAR DIAGNOSTIC 1 EACH STRIP IN SCH ×4 (00:38→17:52)
[2018-09-03] MEDS: INSULIN ASPART/LISPRO 100 UNIT/ML CARTRIDGE SQ PRN ×4 (00:39→17:53)
[2018-09-03 00:46] VITALS: BP 143/81
[2018-09-03] MEDS: ALBUTEROL FS 2.5 MG/3 ML VIAL.NEB NEB SCH ×4 (01:39→19:14)
[2018-09-03] MEDS: IPRATROPIUM NEB FS 0.5 MG/2.5 ML AMPUL.NEB NEB SCH ×4 (01:39→19:14)
[2018-09-03] MEDS: PANTOPRAZOLE 40 MG/PACK PACK GT SCH (05:31)
[2018-09-03 06:14] VITALS: BP 114/70
[2018-09-03 07:44] VITALS: BP 127/74
[2018-09-03] MEDS: VALSARTAN 80 MG TABLET GT SCH (09:00)
[2018-09-03] MEDS: ACETAMINOPHEN 650 MG/20 ML UDC- SA PATIENTS-PAIN ONLY GT SCH ×2 (09:22→20:28)
[2018-09-03] MEDS: DOCUSATE SODIUM LIQ 100 MG/10 ML UDC GT SCH ×2 (09:23→17:52)
[2018-09-03] MEDS: LEVETIRACETAM SOL (5 ML) 100 MG/ML UDC GT SCH ×2 (09:24→20:27)
[2018-09-03] MEDS: ACIDOPHILUS/BULGARICUS 1 EACH TAB.CHEW GT SCH ×2 (09:24→17:52)
[2018-09-03] MEDS: ASCORBIC ACID 500 MG TABLET GT SCH (09:24)
[2018-09-03] MEDS: ZINC SULFATE 220 MG CAPSULE GT SCH (09:24)
[2018-09-03] MEDS: FERROUS SULFATE - FOR SA ONLY 330 MG/7.5 ML UDC GT SCH (09:24)
[2018-09-03] MEDS: MULTIVIT W/MINERALS 1 TAB TABLET GT SCH (09:24)
[2018-09-03] MEDS: HYDROGEN PEROXIDE 480 ML BOTTLE TP SCH ×2 (09:58→20:29)
[2018-09-03] MEDS: THERAHONEY GEL 1.5 OZ TUBE TP SCH ×2 (09:58→20:29)
[2018-09-03] MEDS: CLOTRIMAZOLE 1% CREAM 24 GM TUBE TP SCH ×2 (09:58→20:29)
[2018-09-03] MEDS: Z GUARD REMEDY 2 OZ OINT TP SCH ×2 (09:58→20:29)
[2018-09-03 12:00] VITALS: BP 128/79
[2018-09-03] MEDS: GLUCERNA 1.2 1,000 ML BOTTLE GT PRN (13:00)
[2018-09-03 18:37] VITALS: BP 128/65
[2018-09-03] MEDS: ENOXAPARIN SODIUM 40 MG/0.4 ML DISP.SYRIN SQ SCH (20:29)
[2018-09-03 20:30] VITALS: BP 116/78
[2018-09-03] MEDS: ATORVASTATIN 10 MG TABLET GT SCH (21:54)
[2018-09-03] MEDS: INSULIN GLARGINE, 100 UNIT/ML CARTRIDGE SQ SCH (21:55)
[2018-09-04 00:24] VITALS: BP 142/74
[2018-09-04] MEDS: BLOOD SUGAR DIAGNOSTIC 1 EACH STRIP IN SCH ×4 (00:27→17:50)
[2018-09-04] MEDS: DILTIAZEM HCL 30 MG TABLET GT SCH ×4 (00:27→17:56)
[2018-09-04] MEDS: INSULIN ASPART/LISPRO 100 UNIT/ML CARTRIDGE SQ PRN ×4 (00:29→17:51)
[2018-09-04] MEDS: IPRATROPIUM NEB FS 0.5 MG/2.5 ML AMPUL.NEB NEB SCH ×4 (01:52→19:43)
[2018-09-04] MEDS: ALBUTEROL FS 2.5 MG/3 ML VIAL.NEB NEB SCH ×4 (01:52→19:43)
[2018-09-04] MEDS: PANTOPRAZOLE 40 MG/PACK PACK GT SCH (05:38)
[2018-09-04] MEDS: GLUCERNA 1.2 1,000 ML BOTTLE GT PRN ×2 (05:44→22:57)
[2018-09-04 06:08] VITALS: BP 115/69
[2018-09-04 08:45] VITALS: BP 169/70
[2018-09-04] MEDS: HYDROGEN PEROXIDE 480 ML BOTTLE TP SCH ×2 (09:00→21:00)
[2018-09-04] MEDS: THERAHONEY GEL 1.5 OZ TUBE TP SCH ×2 (09:00→21:00)
[2018-09-04] MEDS: Z GUARD REMEDY 2 OZ OINT TP SCH ×2 (09:00→21:00)
[2018-09-04] MEDS: CLOTRIMAZOLE 1% CREAM 24 GM TUBE TP SCH ×2 (09:00→21:00)
--- NOTE | 2018-09-04 09:00 | NUR ---
Seen and examined by Dr. Capone, no new order given.
[2018-09-04] MEDS: VALSARTAN 80 MG TABLET GT SCH (09:22)
[2018-09-04] MEDS: DOCUSATE SODIUM LIQ 100 MG/10 ML UDC GT SCH ×2 (09:22→17:50)
[2018-09-04] MEDS: FERROUS SULFATE - FOR SA ONLY 330 MG/7.5 ML UDC GT SCH (09:23)
[2018-09-04] MEDS: LEVETIRACETAM SOL (5 ML) 100 MG/ML UDC GT SCH ×2 (09:24→21:00)
[2018-09-04] MEDS: ACIDOPHILUS/BULGARICUS 1 EACH TAB.CHEW GT SCH ×2 (09:24→17:50)
[2018-09-04] MEDS: ASCORBIC ACID 500 MG TABLET GT SCH (09:26)
[2018-09-04] MEDS: ZINC SULFATE 220 MG CAPSULE GT SCH (09:26)
[2018-09-04] MEDS: ACETAMINOPHEN 650 MG/20 ML UDC- SA PATIENTS-PAIN ONLY GT SCH ×2 (09:29→21:00)
[2018-09-04] MEDS: MULTIVIT W/MINERALS 1 TAB TABLET GT SCH (09:31)
[2018-09-04 12:00] VITALS: BP 126/89
[2018-09-04 18:00] VITALS: BP 149/83
[2018-09-04 20:20] VITALS: BP 107/58
[2018-09-04] MEDS: ENOXAPARIN SODIUM 40 MG/0.4 ML DISP.SYRIN SQ SCH (21:00)
[2018-09-04] MEDS: ATORVASTATIN 10 MG TABLET GT SCH (22:20)
[2018-09-04] MEDS: INSULIN GLARGINE, 100 UNIT/ML CARTRIDGE SQ SCH (22:27)
[2018-09-05] VITALS (7 sets, daily range): BP systolic 107–140; BP diastolic 58–76
[2018-09-05] MEDS: DILTIAZEM HCL 30 MG TABLET GT SCH ×4 (00:19→18:17)
[2018-09-05] MEDS: BLOOD SUGAR DIAGNOSTIC 1 EACH STRIP IN SCH ×4 (00:22→18:17)
[2018-09-05] MEDS: INSULIN ASPART/LISPRO 100 UNIT/ML CARTRIDGE SQ PRN ×4 (00:25→18:19)
[2018-09-05] MEDS: IPRATROPIUM NEB FS 0.5 MG/2.5 ML AMPUL.NEB NEB SCH ×4 (01:22→20:19)
[2018-09-05] MEDS: ALBUTEROL FS 2.5 MG/3 ML VIAL.NEB NEB SCH ×4 (01:22→20:19)
[2018-09-05] MEDS: PANTOPRAZOLE 40 MG/PACK PACK GT SCH (06:55)
[2018-09-05] MEDS: LEVETIRACETAM SOL (5 ML) 100 MG/ML UDC GT SCH ×2 (09:00→21:19)
[2018-09-05] MEDS: ACIDOPHILUS/BULGARICUS 1 EACH TAB.CHEW GT SCH ×2 (09:00→17:00)
[2018-09-05] MEDS: DOCUSATE SODIUM LIQ 100 MG/10 ML UDC GT SCH ×2 (09:00→17:00)
[2018-09-05] MEDS: VALSARTAN 80 MG TABLET GT SCH (09:00)
[2018-09-05] MEDS: FERROUS SULFATE - FOR SA ONLY 330 MG/7.5 ML UDC GT SCH (09:00)
[2018-09-05] MEDS: MULTIVIT W/MINERALS 1 TAB TABLET GT SCH (09:00)
[2018-09-05] MEDS: ACETAMINOPHEN 650 MG/20 ML UDC- SA PATIENTS-PAIN ONLY GT SCH ×2 (09:01→21:19)
[2018-09-05] MEDS: ASCORBIC ACID 500 MG TABLET GT SCH (09:01)
[2018-09-05] MEDS: ZINC SULFATE 220 MG CAPSULE GT SCH (09:01)
[2018-09-05] MEDS: THERAHONEY GEL 1.5 OZ TUBE TP SCH ×2 (10:01→22:00)
[2018-09-05] MEDS: HYDROGEN PEROXIDE 480 ML BOTTLE TP SCH ×2 (10:01→21:21)
[2018-09-05] MEDS: CLOTRIMAZOLE 1% CREAM 24 GM TUBE TP SCH ×2 (10:01→22:00)
[2018-09-05] MEDS: Z GUARD REMEDY 2 OZ OINT TP SCH ×2 (10:01→22:00)
[2018-09-05] MEDS: GLUCERNA 1.2 1,000 ML BOTTLE GT PRN (18:19)
[2018-09-05] MEDS: ENOXAPARIN SODIUM 40 MG/0.4 ML DISP.SYRIN SQ SCH (21:20)
[2018-09-05] MEDS: ATORVASTATIN 10 MG TABLET GT SCH (21:25)
[2018-09-05] MEDS: INSULIN GLARGINE, 100 UNIT/ML CARTRIDGE SQ SCH (21:32)
[2018-09-06] MEDS: DILTIAZEM HCL 30 MG TABLET GT SCH ×5 (00:17→23:48)
[2018-09-06 00:20] VITALS: BP 157/77
[2018-09-06] MEDS: BLOOD SUGAR DIAGNOSTIC 1 EACH STRIP IN SCH ×5 (00:52→23:48)
[2018-09-06] MEDS: INSULIN ASPART/LISPRO 100 UNIT/ML CARTRIDGE SQ PRN ×5 (00:54→23:49)
[2018-09-06] MEDS: IPRATROPIUM NEB FS 0.5 MG/2.5 ML AMPUL.NEB NEB SCH ×4 (02:02→20:25)
[2018-09-06] MEDS: ALBUTEROL FS 2.5 MG/3 ML VIAL.NEB NEB SCH ×4 (02:02→20:25)
[2018-09-06] MEDS: GLUCERNA 1.2 1,000 ML BOTTLE GT PRN (05:58)
[2018-09-06] MEDS: PANTOPRAZOLE 40 MG/PACK PACK GT SCH (05:58)
[2018-09-06 06:49] VITALS: BP 154/81
[2018-09-06 07:37] VITALS: BP 115/73
[2018-09-06] MEDS: DOCUSATE SODIUM LIQ 100 MG/10 ML UDC GT SCH ×2 (09:00→17:00)
[2018-09-06] MEDS: VALSARTAN 80 MG TABLET GT SCH (09:00)
[2018-09-06] MEDS: ACIDOPHILUS/BULGARICUS 1 EACH TAB.CHEW GT SCH ×2 (09:00→17:00)
[2018-09-06] MEDS: FERROUS SULFATE - FOR SA ONLY 330 MG/7.5 ML UDC GT SCH (09:00)
[2018-09-06] MEDS: LEVETIRACETAM SOL (5 ML) 100 MG/ML UDC GT SCH ×2 (09:00→21:30)
[2018-09-06] MEDS: MULTIVIT W/MINERALS 1 TAB TABLET GT SCH (09:00)
[2018-09-06] MEDS: ASCORBIC ACID 500 MG TABLET GT SCH (09:00)
[2018-09-06] MEDS: ZINC SULFATE 220 MG CAPSULE GT SCH (09:00)
[2018-09-06] MEDS: ACETAMINOPHEN 650 MG/20 ML UDC- SA PATIENTS-PAIN ONLY GT SCH ×2 (10:45→21:31)
[2018-09-06] MEDS: Z GUARD REMEDY 2 OZ OINT TP SCH ×2 (11:15→21:32)
[2018-09-06] MEDS: CLOTRIMAZOLE 1% CREAM 24 GM TUBE TP SCH ×2 (11:15→21:32)
[2018-09-06] MEDS: THERAHONEY GEL 1.5 OZ TUBE TP SCH ×2 (11:15→21:32)
[2018-09-06] MEDS: HYDROGEN PEROXIDE 480 ML BOTTLE TP SCH ×2 (11:15→21:32)
[2018-09-06 12:34] VITALS: BP 129/77
[2018-09-06 18:00] VITALS: BP 108/50
[2018-09-06 20:09] VITALS: BP 124/89
[2018-09-06] MEDS: ATORVASTATIN 10 MG TABLET GT SCH (21:32)
[2018-09-06] MEDS: ENOXAPARIN SODIUM 40 MG/0.4 ML DISP.SYRIN SQ SCH (21:32)
[2018-09-06] MEDS: INSULIN GLARGINE, 100 UNIT/ML CARTRIDGE SQ SCH (21:36)
[2018-09-07 00:20] VITALS: BP 146/66
[2018-09-07] MEDS: IPRATROPIUM NEB FS 0.5 MG/2.5 ML AMPUL.NEB NEB SCH ×4 (02:06→20:25)
[2018-09-07] MEDS: ALBUTEROL FS 2.5 MG/3 ML VIAL.NEB NEB SCH ×4 (02:06→20:25)
[2018-09-07] MEDS: GLUCERNA 1.2 1,000 ML BOTTLE GT PRN ×2 (05:00→21:32)
[2018-09-07] MEDS: DILTIAZEM HCL 30 MG TABLET GT SCH ×4 (05:46→23:46)
[2018-09-07] MEDS: PANTOPRAZOLE 40 MG/PACK PACK GT SCH (05:49)
[2018-09-07] MEDS: BLOOD SUGAR DIAGNOSTIC 1 EACH STRIP IN SCH ×4 (05:49→23:46)
[2018-09-07] MEDS: INSULIN ASPART/LISPRO 100 UNIT/ML CARTRIDGE SQ PRN ×3 (05:50→23:48)
[2018-09-07 06:28] VITALS: BP 137/72
[2018-09-07 08:10] VITALS: BP 101/58
[2018-09-07] MEDS: ACIDOPHILUS/BULGARICUS 1 EACH TAB.CHEW GT SCH ×2 (09:00→17:00)
[2018-09-07] MEDS: ASCORBIC ACID 500 MG TABLET GT SCH (09:00)
[2018-09-07] MEDS: DOCUSATE SODIUM LIQ 100 MG/10 ML UDC GT SCH ×2 (09:00→17:00)
[2018-09-07] MEDS: ZINC SULFATE 220 MG CAPSULE GT SCH (09:00)
[2018-09-07] MEDS: MULTIVIT W/MINERALS 1 TAB TABLET GT SCH (09:00)
[2018-09-07] MEDS: VALSARTAN 80 MG TABLET GT SCH (09:00)
[2018-09-07] MEDS: FERROUS SULFATE - FOR SA ONLY 330 MG/7.5 ML UDC GT SCH (09:00)
[2018-09-07] MEDS: LEVETIRACETAM SOL (5 ML) 100 MG/ML UDC GT SCH ×2 (09:00→21:22)
[2018-09-07] MEDS: ACETAMINOPHEN 650 MG/20 ML UDC- SA PATIENTS-PAIN ONLY GT SCH ×2 (10:25→21:22)
[2018-09-07] MEDS: THERAHONEY GEL 1.5 OZ TUBE TP SCH ×2 (10:55→21:23)
[2018-09-07] MEDS: HYDROGEN PEROXIDE 480 ML BOTTLE TP SCH ×2 (10:55→21:23)
[2018-09-07] MEDS: CLOTRIMAZOLE 1% CREAM 24 GM TUBE TP SCH ×2 (10:55→21:23)
[2018-09-07] MEDS: Z GUARD REMEDY 2 OZ OINT TP SCH ×2 (10:55→21:23)
[2018-09-07 12:00] VITALS: BP 139/71
[2018-09-07 18:00] VITALS: BP 115/70
[2018-09-07 20:14] VITALS: BP 125/90
[2018-09-07] MEDS: ATORVASTATIN 10 MG TABLET GT SCH (21:23)
[2018-09-07] MEDS: ENOXAPARIN SODIUM 40 MG/0.4 ML DISP.SYRIN SQ SCH (21:23)
[2018-09-07] MEDS: INSULIN GLARGINE, 100 UNIT/ML CARTRIDGE SQ SCH (21:32)
[2018-09-08 00:23] VITALS: BP 139/83
[2018-09-08] MEDS: ALBUTEROL FS 2.5 MG/3 ML VIAL.NEB NEB SCH ×4 (02:02→19:28)
[2018-09-08] MEDS: IPRATROPIUM NEB FS 0.5 MG/2.5 ML AMPUL.NEB NEB SCH ×4 (02:02→19:28)
[2018-09-08] MEDS: DILTIAZEM HCL 30 MG TABLET GT SCH ×4 (05:56→23:58)
[2018-09-08] MEDS: INSULIN ASPART/LISPRO 100 UNIT/ML CARTRIDGE SQ PRN ×3 (05:57→23:57)
[2018-09-08] MEDS: PANTOPRAZOLE 40 MG/PACK PACK GT SCH (05:57)
[2018-09-08] MEDS: BLOOD SUGAR DIAGNOSTIC 1 EACH STRIP IN SCH ×4 (05:57→23:58)
[2018-09-08 06:27] VITALS: BP 122/64
[2018-09-08 08:00] VITALS: BP 109/65
[2018-09-08] MEDS: MULTIVIT W/MINERALS 1 TAB TABLET GT SCH (09:00)
[2018-09-08] MEDS: ACIDOPHILUS/BULGARICUS 1 EACH TAB.CHEW GT SCH ×2 (09:00→17:59)
[2018-09-08] MEDS: DOCUSATE SODIUM LIQ 100 MG/10 ML UDC GT SCH ×2 (09:00→17:59)
[2018-09-08] MEDS: ZINC SULFATE 220 MG CAPSULE GT SCH (09:00)
[2018-09-08] MEDS: LEVETIRACETAM SOL (5 ML) 100 MG/ML UDC GT SCH ×2 (09:00→20:43)
[2018-09-08] MEDS: ASCORBIC ACID 500 MG TABLET GT SCH (09:00)
[2018-09-08] MEDS: FERROUS SULFATE - FOR SA ONLY 330 MG/7.5 ML UDC GT SCH (09:00)
[2018-09-08] MEDS: VALSARTAN 80 MG TABLET GT SCH (09:00)
[2018-09-08] MEDS: ACETAMINOPHEN 650 MG/20 ML UDC- SA PATIENTS-PAIN ONLY GT SCH ×2 (10:45→20:43)
[2018-09-08] MEDS: HYDROGEN PEROXIDE 480 ML BOTTLE TP SCH ×2 (11:15→20:43)
[2018-09-08] MEDS: CLOTRIMAZOLE 1% CREAM 24 GM TUBE TP SCH ×2 (11:15→20:43)
[2018-09-08] MEDS: Z GUARD REMEDY 2 OZ OINT TP SCH ×2 (11:15→20:43)
[2018-09-08] MEDS: THERAHONEY GEL 1.5 OZ TUBE TP SCH ×2 (11:15→20:43)
[2018-09-08 12:00] VITALS: BP 114/75
[2018-09-08] MEDS: GLUCERNA 1.2 1,000 ML BOTTLE GT PRN (15:20)
[2018-09-08 18:00] VITALS: BP 131/71
[2018-09-08 19:59] VITALS: BP 114/61
[2018-09-08] MEDS: ENOXAPARIN SODIUM 40 MG/0.4 ML DISP.SYRIN SQ SCH (20:46)
[2018-09-08] MEDS: ATORVASTATIN 10 MG TABLET GT SCH (22:00)
[2018-09-08] MEDS: INSULIN GLARGINE, 100 UNIT/ML CARTRIDGE SQ SCH (22:00)
[2018-09-09] VITALS: BP 114/61
[2018-09-09] MEDS: IPRATROPIUM NEB FS 0.5 MG/2.5 ML AMPUL.NEB NEB SCH ×4 (01:30→20:08)
[2018-09-09] MEDS: ALBUTEROL FS 2.5 MG/3 ML VIAL.NEB NEB SCH ×4 (01:30→20:08)
[2018-09-09] MEDS: DILTIAZEM HCL 30 MG TABLET GT SCH ×3 (05:51→18:02)
[2018-09-09] MEDS: PANTOPRAZOLE 40 MG/PACK PACK GT SCH (05:51)
[2018-09-09] MEDS: BLOOD SUGAR DIAGNOSTIC 1 EACH STRIP IN SCH ×3 (05:51→18:03)
[2018-09-09] MEDS: INSULIN ASPART/LISPRO 100 UNIT/ML CARTRIDGE SQ PRN ×3 (06:08→18:10)
[2018-09-09 06:41] VITALS: BP 116/60
[2018-09-09 07:30] LABS: BASOPHILS % (AUTO) 0.6 % (0.0-2.0); EOSINOPHILS % (AUTO) 2.1 % (0.0-6.0); HEMATOCRIT 37 % (33-45); HEMOGLOBIN 11.9 g/dL (11.5-14.8); LYMPHOCYTES # (AUTO) 2.2 /CMM (0.8-4.8); LYMPHOCYTES % (AUTO) 34.1 % (20.0-44.0); MEAN CORPUSCULAR HGB CONC 32 g/dl (31.0-36.0); MEAN CORPUSCULAR VOLUME 92 fL (82-100); MONOCYTES # (AUTO) 0.6 /CMM (0.1-1.30); MONOCYTES % (AUTO) 9.4 % (2.0-12.0); NEUTROPHILS # (AUTO) 3.4 /CMM (1.8-8.9); NEUTROPHILS % (AUTO) 53.8 % (43.0-81.0); PLATELET COUNT (AUTO) 281 /CMM (150-450); RED BLOOD CELL COUNT(AUTO) 4.08 MIL/uL (4.0-5.2); WHITE BLOOD COUNT (AUTO) 6.3 K/uL (4.3-11.0)
[2018-09-09 07:38] VITALS: BP 103/61
[2018-09-09 07:40] LABS: CALCIUM, SERUM 9.5 mg/dL (8.5-10.1); CREATININE 0.9 mg/dL (0.6-1.3); MAGNESIUM 2.4 mg/dL (1.8-2.4); PHOSPHORUS 3.7 mg/dL (2.5-4.9)
[2018-09-09] MEDS: THERAHONEY GEL 1.5 OZ TUBE TP SCH ×2 (09:00→21:00)
[2018-09-09] MEDS: HYDROGEN PEROXIDE 480 ML BOTTLE TP SCH ×2 (09:00→21:00)
[2018-09-09] MEDS: Z GUARD REMEDY 2 OZ OINT TP SCH ×2 (09:00→21:00)
[2018-09-09] MEDS: CLOTRIMAZOLE 1% CREAM 24 GM TUBE TP SCH ×2 (09:00→21:00)
[2018-09-09] MEDS: MULTIVIT W/MINERALS 1 TAB TABLET GT SCH (09:00)
[2018-09-09] MEDS: DOCUSATE SODIUM LIQ 100 MG/10 ML UDC GT SCH ×2 (09:57→17:00)
[2018-09-09] MEDS: ACIDOPHILUS/BULGARICUS 1 EACH TAB.CHEW GT SCH ×2 (09:58→17:00)
[2018-09-09] MEDS: VALSARTAN 80 MG TABLET GT SCH (09:58)
[2018-09-09] MEDS: FERROUS SULFATE - FOR SA ONLY 330 MG/7.5 ML UDC GT SCH (09:58)
[2018-09-09] MEDS: LEVETIRACETAM SOL (5 ML) 100 MG/ML UDC GT SCH ×2 (09:59→21:00)
[2018-09-09] MEDS: ACETAMINOPHEN 650 MG/20 ML UDC- SA PATIENTS-PAIN ONLY GT SCH ×2 (09:59→21:00)
[2018-09-09] MEDS: ZINC SULFATE 220 MG CAPSULE GT SCH (09:59)
[2018-09-09] MEDS: ASCORBIC ACID 500 MG TABLET GT SCH (09:59)
[2018-09-09 12:00] VITALS: BP 128/87
[2018-09-09 18:00] VITALS: BP 112/68
[2018-09-09 20:09] VITALS: BP 117/50
[2018-09-09] MEDS: ENOXAPARIN SODIUM 40 MG/0.4 ML DISP.SYRIN SQ SCH (21:00)
[2018-09-09] MEDS: ATORVASTATIN 10 MG TABLET GT SCH (22:41)
[2018-09-09] MEDS: INSULIN GLARGINE, 100 UNIT/ML CARTRIDGE SQ SCH (22:51)
[2018-09-10] VITALS: BP 123/58
[2018-09-10] MEDS: BLOOD SUGAR DIAGNOSTIC 1 EACH STRIP IN SCH ×5 (01:19→23:33)
[2018-09-10] MEDS: INSULIN ASPART/LISPRO 100 UNIT/ML CARTRIDGE SQ PRN ×5 (01:23→23:33)
[2018-09-10] MEDS: ALBUTEROL FS 2.5 MG/3 ML VIAL.NEB NEB SCH ×4 (01:44→19:20)
[2018-09-10] MEDS: IPRATROPIUM NEB FS 0.5 MG/2.5 ML AMPUL.NEB NEB SCH ×4 (01:44→19:20)
[2018-09-10 06:00] VITALS: BP 114/66
[2018-09-10] MEDS: DILTIAZEM HCL 30 MG TABLET GT SCH ×5 (06:21→23:33)
[2018-09-10] MEDS: PANTOPRAZOLE 40 MG/PACK PACK GT SCH (06:21)
[2018-09-10 07:38] VITALS: BP 113/70
[2018-09-10] MEDS: HYDROGEN PEROXIDE 480 ML BOTTLE TP SCH ×2 (09:00→21:16)
[2018-09-10] MEDS: CLOTRIMAZOLE 1% CREAM 24 GM TUBE TP SCH ×2 (09:00→21:16)
[2018-09-10] MEDS: THERAHONEY GEL 1.5 OZ TUBE TP SCH ×2 (09:00→21:16)
[2018-09-10] MEDS: Z GUARD REMEDY 2 OZ OINT TP SCH ×2 (09:00→21:16)
[2018-09-10] MEDS: ZINC SULFATE 220 MG CAPSULE GT SCH (09:00)
[2018-09-10] MEDS: ASCORBIC ACID 500 MG TABLET GT SCH (09:00)
[2018-09-10] MEDS: MULTIVIT W/MINERALS 1 TAB TABLET GT SCH (09:00)
[2018-09-10] MEDS: DOCUSATE SODIUM LIQ 100 MG/10 ML UDC GT SCH ×2 (09:50→17:29)
[2018-09-10] MEDS: VALSARTAN 80 MG TABLET GT SCH (09:50)
[2018-09-10] MEDS: FERROUS SULFATE - FOR SA ONLY 330 MG/7.5 ML UDC GT SCH (09:50)
[2018-09-10] MEDS: LEVETIRACETAM SOL (5 ML) 100 MG/ML UDC GT SCH ×2 (09:52→21:15)
[2018-09-10] MEDS: ACIDOPHILUS/BULGARICUS 1 EACH TAB.CHEW GT SCH ×2 (09:53→17:29)
[2018-09-10] MEDS: ACETAMINOPHEN 650 MG/20 ML UDC- SA PATIENTS-PAIN ONLY GT SCH ×2 (10:02→21:15)
[2018-09-10 12:00] VITALS: BP 109/65
[2018-09-10] MEDS: GLUCERNA 1.2 1,000 ML BOTTLE GT PRN (15:16)
[2018-09-10 18:00] VITALS: BP 110/67
[2018-09-10 20:11] VITALS: BP 133/61
[2018-09-10] MEDS: ENOXAPARIN SODIUM 40 MG/0.4 ML DISP.SYRIN SQ SCH (21:16)
[2018-09-10] MEDS: ATORVASTATIN 10 MG TABLET GT SCH (21:16)
[2018-09-10] MEDS: INSULIN GLARGINE, 100 UNIT/ML CARTRIDGE SQ SCH (22:55)
[2018-09-11] VITALS (7 sets, daily range): BP systolic 99–124; BP diastolic 56–71
[2018-09-11] MEDS: IPRATROPIUM NEB FS 0.5 MG/2.5 ML AMPUL.NEB NEB SCH ×4 (00:32→19:24)
[2018-09-11] MEDS: ALBUTEROL FS 2.5 MG/3 ML VIAL.NEB NEB SCH ×4 (00:32→19:24)
[2018-09-11] MEDS: DILTIAZEM HCL 30 MG TABLET GT SCH ×3 (05:49→17:36)
[2018-09-11] MEDS: BLOOD SUGAR DIAGNOSTIC 1 EACH STRIP IN SCH ×4 (05:49→23:54)
[2018-09-11] MEDS: PANTOPRAZOLE 40 MG/PACK PACK GT SCH (05:49)
[2018-09-11] MEDS: INSULIN ASPART/LISPRO 100 UNIT/ML CARTRIDGE SQ PRN ×3 (05:50→17:37)
[2018-09-11] MEDS: DOCUSATE SODIUM LIQ 100 MG/10 ML UDC GT SCH ×2 (08:43→17:35)
[2018-09-11] MEDS: VALSARTAN 80 MG TABLET GT SCH (08:43)
[2018-09-11] MEDS: FERROUS SULFATE - FOR SA ONLY 330 MG/7.5 ML UDC GT SCH (08:44)
[2018-09-11] MEDS: ACIDOPHILUS/BULGARICUS 1 EACH TAB.CHEW GT SCH ×2 (08:44→17:35)
[2018-09-11] MEDS: LEVETIRACETAM SOL (5 ML) 100 MG/ML UDC GT SCH ×2 (08:44→21:35)
[2018-09-11] MEDS: ACETAMINOPHEN 650 MG/20 ML UDC- SA PATIENTS-PAIN ONLY GT SCH ×2 (08:44→21:36)
[2018-09-11] MEDS: ASCORBIC ACID 500 MG TABLET GT SCH (08:44)
[2018-09-11] MEDS: MULTIVIT W/MINERALS 1 TAB TABLET GT SCH (08:44)
[2018-09-11] MEDS: ZINC SULFATE 220 MG CAPSULE GT SCH (08:44)
[2018-09-11] MEDS: CLOTRIMAZOLE 1% CREAM 24 GM TUBE TP SCH ×2 (09:30→21:00)
[2018-09-11] MEDS: Z GUARD REMEDY 2 OZ OINT TP SCH ×2 (09:30→21:00)
[2018-09-11] MEDS: THERAHONEY GEL 1.5 OZ TUBE TP SCH ×2 (09:30→21:00)
[2018-09-11] MEDS: HYDROGEN PEROXIDE 480 ML BOTTLE TP SCH ×2 (09:30→21:00)
[2018-09-11] MEDS: ENOXAPARIN SODIUM 40 MG/0.4 ML DISP.SYRIN SQ SCH (21:36)
[2018-09-11] MEDS: ATORVASTATIN 10 MG TABLET GT SCH (21:36)
[2018-09-11] MEDS: INSULIN GLARGINE, 100 UNIT/ML CARTRIDGE SQ SCH (21:37)
[2018-09-12] VITALS (7 sets, daily range): BP systolic 120–136; BP diastolic 60–78
[2018-09-12] MEDS: GLUCERNA 1.2 1,000 ML BOTTLE GT PRN ×2 (00:36→17:55)
[2018-09-12] MEDS: ALBUTEROL FS 2.5 MG/3 ML VIAL.NEB NEB SCH ×4 (00:52→19:24)
[2018-09-12] MEDS: IPRATROPIUM NEB FS 0.5 MG/2.5 ML AMPUL.NEB NEB SCH ×4 (00:52→19:24)
[2018-09-12] MEDS: BLOOD SUGAR DIAGNOSTIC 1 EACH STRIP IN SCH ×4 (05:25→23:59)
[2018-09-12] MEDS: DILTIAZEM HCL 30 MG TABLET GT SCH ×5 (05:25→23:59)
[2018-09-12] MEDS: PANTOPRAZOLE 40 MG/PACK PACK GT SCH (05:25)
[2018-09-12] MEDS: INSULIN ASPART/LISPRO 100 UNIT/ML CARTRIDGE SQ PRN ×3 (05:41→17:54)
[2018-09-12] MEDS: VALSARTAN 80 MG TABLET GT SCH (09:00)
[2018-09-12] MEDS: LEVETIRACETAM SOL (5 ML) 100 MG/ML UDC GT SCH ×2 (09:00→21:44)
[2018-09-12] MEDS: ACETAMINOPHEN 650 MG/20 ML UDC- SA PATIENTS-PAIN ONLY GT SCH ×2 (09:00→21:44)
[2018-09-12] MEDS: ASCORBIC ACID 500 MG TABLET GT SCH (09:00)
[2018-09-12] MEDS: HYDROGEN PEROXIDE 480 ML BOTTLE TP SCH ×2 (09:00→21:45)
[2018-09-12] MEDS: Z GUARD REMEDY 2 OZ OINT TP SCH ×2 (09:00→21:45)
[2018-09-12] MEDS: DOCUSATE SODIUM LIQ 100 MG/10 ML UDC GT SCH ×2 (09:00→17:53)
[2018-09-12] MEDS: ACIDOPHILUS/BULGARICUS 1 EACH TAB.CHEW GT SCH ×2 (09:00→17:53)
[2018-09-12] MEDS: MULTIVIT W/MINERALS 1 TAB TABLET GT SCH (09:00)
[2018-09-12] MEDS: FERROUS SULFATE - FOR SA ONLY 330 MG/7.5 ML UDC GT SCH (09:00)
[2018-09-12] MEDS: ZINC SULFATE 220 MG CAPSULE GT SCH (09:00)
[2018-09-12] MEDS: THERAHONEY GEL 1.5 OZ TUBE TP SCH ×2 (09:30→21:45)
[2018-09-12] MEDS: CLOTRIMAZOLE 1% CREAM 24 GM TUBE TP SCH ×2 (09:30→21:45)
[2018-09-12] MEDS: ENOXAPARIN SODIUM 40 MG/0.4 ML DISP.SYRIN SQ SCH (21:45)
[2018-09-12] MEDS: ATORVASTATIN 10 MG TABLET GT SCH (21:45)
[2018-09-12] MEDS: INSULIN GLARGINE, 100 UNIT/ML CARTRIDGE SQ SCH (21:48)
[2018-09-13 00:20] VITALS: BP 134/76
[2018-09-13] MEDS: ALBUTEROL FS 2.5 MG/3 ML VIAL.NEB NEB SCH ×4 (00:30→19:19)
[2018-09-13] MEDS: IPRATROPIUM NEB FS 0.5 MG/2.5 ML AMPUL.NEB NEB SCH ×4 (00:30→19:19)
[2018-09-13] MEDS: PANTOPRAZOLE 40 MG/PACK PACK GT SCH (05:59)
[2018-09-13] MEDS: BLOOD SUGAR DIAGNOSTIC 1 EACH STRIP IN SCH ×3 (05:59→18:54)
[2018-09-13] MEDS: DILTIAZEM HCL 30 MG TABLET GT SCH ×3 (05:59→17:13)
[2018-09-13] MEDS: INSULIN ASPART/LISPRO 100 UNIT/ML CARTRIDGE SQ PRN ×3 (06:00→12:28)
[2018-09-13 06:20] VITALS: BP 141/73
[2018-09-13 07:25] VITALS: BP 120/73
[2018-09-13] MEDS: ACIDOPHILUS/BULGARICUS 1 EACH TAB.CHEW GT SCH ×2 (09:50→17:13)
[2018-09-13] MEDS: FERROUS SULFATE - FOR SA ONLY 330 MG/7.5 ML UDC GT SCH (09:50)
[2018-09-13] MEDS: LEVETIRACETAM SOL (5 ML) 100 MG/ML UDC GT SCH ×2 (09:50→21:00)
[2018-09-13] MEDS: VALSARTAN 80 MG TABLET GT SCH (09:50)
[2018-09-13] MEDS: MULTIVIT W/MINERALS 1 TAB TABLET GT SCH (09:50)
[2018-09-13] MEDS: ASCORBIC ACID 500 MG TABLET GT SCH (09:50)
[2018-09-13] MEDS: DOCUSATE SODIUM LIQ 100 MG/10 ML UDC GT SCH ×2 (09:50→17:13)
[2018-09-13] MEDS: ZINC SULFATE 220 MG CAPSULE GT SCH (09:50)
[2018-09-13] MEDS: ACETAMINOPHEN 650 MG/20 ML UDC- SA PATIENTS-PAIN ONLY GT SCH ×2 (09:50→21:00)
[2018-09-13] MEDS: HYDROGEN PEROXIDE 480 ML BOTTLE TP SCH ×2 (09:51→21:00)
[2018-09-13] MEDS: THERAHONEY GEL 1.5 OZ TUBE TP SCH ×2 (10:30→21:00)
[2018-09-13] MEDS: CLOTRIMAZOLE 1% CREAM 24 GM TUBE TP SCH ×2 (10:30→21:00)
[2018-09-13] MEDS: Z GUARD REMEDY 2 OZ OINT TP SCH ×2 (10:30→21:00)
[2018-09-13 12:00] VITALS: BP 139/71
[2018-09-13] MEDS: GLUCERNA 1.2 1,000 ML BOTTLE GT PRN (12:28)
[2018-09-13 18:00] VITALS: BP 139/77
[2018-09-13] MEDS: ENOXAPARIN SODIUM 40 MG/0.4 ML DISP.SYRIN SQ SCH (21:00)
[2018-09-13 21:33] VITALS: BP 111/63
[2018-09-13] MEDS: ATORVASTATIN 10 MG TABLET GT SCH (22:55)
[2018-09-13] MEDS: INSULIN GLARGINE, 100 UNIT/ML CARTRIDGE SQ SCH (22:56)
[2018-09-14] VITALS: BP 133/69
[2018-09-14] MEDS: ALBUTEROL FS 2.5 MG/3 ML VIAL.NEB NEB SCH ×4 (00:34→20:27)
[2018-09-14] MEDS: IPRATROPIUM NEB FS 0.5 MG/2.5 ML AMPUL.NEB NEB SCH ×4 (00:34→20:27)
[2018-09-14] MEDS: hydrALAZINE HCL 10 MG TABLET GT PRN (00:42)
[2018-09-14] MEDS: DILTIAZEM HCL 30 MG TABLET GT SCH ×4 (00:42→17:13)
[2018-09-14] MEDS: BLOOD SUGAR DIAGNOSTIC 1 EACH STRIP IN SCH ×4 (00:42→17:13)
[2018-09-14] MEDS: GLUCERNA 1.2 1,000 ML BOTTLE GT PRN ×2 (00:43→17:47)
[2018-09-14] MEDS: INSULIN ASPART/LISPRO 100 UNIT/ML CARTRIDGE SQ PRN ×4 (00:43→17:13)
[2018-09-14] MEDS: PANTOPRAZOLE 40 MG/PACK PACK GT SCH (05:43)
[2018-09-14 06:00] VITALS: BP 135/55
[2018-09-14 07:50] VITALS: BP 102/52
[2018-09-14] MEDS: VALSARTAN 80 MG TABLET GT SCH (09:00)
[2018-09-14] MEDS: DOCUSATE SODIUM LIQ 100 MG/10 ML UDC GT SCH ×2 (09:28→17:12)
[2018-09-14] MEDS: LEVETIRACETAM SOL (5 ML) 100 MG/ML UDC GT SCH ×2 (09:29→21:22)
[2018-09-14] MEDS: FERROUS SULFATE - FOR SA ONLY 330 MG/7.5 ML UDC GT SCH (09:29)
[2018-09-14] MEDS: ACIDOPHILUS/BULGARICUS 1 EACH TAB.CHEW GT SCH ×2 (09:29→17:12)
[2018-09-14] MEDS: MULTIVIT W/MINERALS 1 TAB TABLET GT SCH (09:31)
[2018-09-14] MEDS: ASCORBIC ACID 500 MG TABLET GT SCH (09:31)
[2018-09-14] MEDS: ZINC SULFATE 220 MG CAPSULE GT SCH (09:31)
[2018-09-14] MEDS: ACETAMINOPHEN 650 MG/20 ML UDC- SA PATIENTS-PAIN ONLY GT SCH ×2 (09:31→21:22)
[2018-09-14] MEDS: Z GUARD REMEDY 2 OZ OINT TP SCH ×2 (10:05→21:23)
[2018-09-14] MEDS: CLOTRIMAZOLE 1% CREAM 24 GM TUBE TP SCH ×2 (10:05→21:23)
[2018-09-14] MEDS: HYDROGEN PEROXIDE 480 ML BOTTLE TP SCH ×2 (10:05→21:23)
[2018-09-14] MEDS: THERAHONEY GEL 1.5 OZ TUBE TP SCH ×2 (10:05→21:23)
[2018-09-14 12:00] VITALS: BP 139/72
[2018-09-14 18:16] VITALS: BP 139/73
[2018-09-14 20:38] VITALS: BP 127/71
[2018-09-14] MEDS: ENOXAPARIN SODIUM 40 MG/0.4 ML DISP.SYRIN SQ SCH (21:23)
[2018-09-14] MEDS: ATORVASTATIN 10 MG TABLET GT SCH (21:23)
[2018-09-14] MEDS: INSULIN GLARGINE, 100 UNIT/ML CARTRIDGE SQ SCH (21:51)
[2018-09-15] MEDS: DILTIAZEM HCL 30 MG TABLET GT SCH ×4 (00:01→18:03)
[2018-09-15] MEDS: BLOOD SUGAR DIAGNOSTIC 1 EACH STRIP IN SCH ×4 (00:01→18:03)
[2018-09-15] MEDS: INSULIN ASPART/LISPRO 100 UNIT/ML CARTRIDGE SQ PRN ×4 (00:02→18:05)
[2018-09-15 00:20] VITALS: BP 133/58
[2018-09-15] MEDS: ALBUTEROL FS 2.5 MG/3 ML VIAL.NEB NEB SCH ×4 (01:53→20:14)
[2018-09-15] MEDS: IPRATROPIUM NEB FS 0.5 MG/2.5 ML AMPUL.NEB NEB SCH ×4 (01:53→20:14)
[2018-09-15] MEDS: PANTOPRAZOLE 40 MG/PACK PACK GT SCH (05:40)
[2018-09-15 06:33] VITALS: BP 129/65
[2018-09-15] MEDS: VALSARTAN 80 MG TABLET GT SCH (09:00)
[2018-09-15] MEDS: DOCUSATE SODIUM LIQ 100 MG/10 ML UDC GT SCH ×2 (09:21→17:00)
[2018-09-15] MEDS: ZINC SULFATE 220 MG CAPSULE GT SCH (09:21)
[2018-09-15] MEDS: ASCORBIC ACID 500 MG TABLET GT SCH (09:21)
[2018-09-15] MEDS: ACIDOPHILUS/BULGARICUS 1 EACH TAB.CHEW GT SCH ×2 (09:21→17:00)
[2018-09-15] MEDS: MULTIVIT W/MINERALS 1 TAB TABLET GT SCH (09:21)
[2018-09-15] MEDS: LEVETIRACETAM SOL (5 ML) 100 MG/ML UDC GT SCH ×2 (09:21→21:11)
[2018-09-15] MEDS: FERROUS SULFATE - FOR SA ONLY 330 MG/7.5 ML UDC GT SCH (09:21)
[2018-09-15] MEDS: ACETAMINOPHEN 650 MG/20 ML UDC- SA PATIENTS-PAIN ONLY GT SCH ×2 (09:22→21:11)
[2018-09-15] MEDS: CLOTRIMAZOLE 1% CREAM 24 GM TUBE TP SCH ×2 (10:00→21:12)
[2018-09-15] MEDS: Z GUARD REMEDY 2 OZ OINT TP SCH ×2 (10:00→21:12)
[2018-09-15] MEDS: HYDROGEN PEROXIDE 480 ML BOTTLE TP SCH ×2 (10:00→21:12)
[2018-09-15] MEDS: THERAHONEY GEL 1.5 OZ TUBE TP SCH ×2 (10:00→21:12)
[2018-09-15 12:00] VITALS: BP 133/77
[2018-09-15 12:12] VITALS: BP 107/67
[2018-09-15] MEDS: GLUCERNA 1.2 1,000 ML BOTTLE GT PRN (12:25)
[2018-09-15 19:05] VITALS: BP 145/88
[2018-09-15 20:41] VITALS: BP 128/54
[2018-09-15] MEDS: ATORVASTATIN 10 MG TABLET GT SCH (21:12)
[2018-09-15] MEDS: ENOXAPARIN SODIUM 40 MG/0.4 ML DISP.SYRIN SQ SCH (21:12)
[2018-09-15] MEDS: INSULIN GLARGINE, 100 UNIT/ML CARTRIDGE SQ SCH (21:23)
[2018-09-16] VITALS (8 sets, daily range): BP systolic 110–145; BP diastolic 56–80
[2018-09-16] MEDS: ALBUTEROL FS 2.5 MG/3 ML VIAL.NEB NEB SCH ×4 (00:53→19:39)
[2018-09-16] MEDS: IPRATROPIUM NEB FS 0.5 MG/2.5 ML AMPUL.NEB NEB SCH ×4 (00:53→19:39)
[2018-09-16] MEDS: BLOOD SUGAR DIAGNOSTIC 1 EACH STRIP IN SCH ×4 (00:57→17:43)
[2018-09-16] MEDS: DILTIAZEM HCL 30 MG TABLET GT SCH ×4 (00:57→17:43)
[2018-09-16] MEDS: INSULIN ASPART/LISPRO 100 UNIT/ML CARTRIDGE SQ PRN ×4 (00:58→17:44)
[2018-09-16] MEDS: GLUCERNA 1.2 1,000 ML BOTTLE GT PRN (05:39)
[2018-09-16] MEDS: PANTOPRAZOLE 40 MG/PACK PACK GT SCH (05:39)
[2018-09-16] MEDS: FERROUS SULFATE - FOR SA ONLY 330 MG/7.5 ML UDC GT SCH (08:50)
[2018-09-16] MEDS: LEVETIRACETAM SOL (5 ML) 100 MG/ML UDC GT SCH ×2 (08:50→21:19)
[2018-09-16] MEDS: ASCORBIC ACID 500 MG TABLET GT SCH (08:50)
[2018-09-16] MEDS: ACIDOPHILUS/BULGARICUS 1 EACH TAB.CHEW GT SCH ×2 (08:50→17:43)
[2018-09-16] MEDS: VALSARTAN 80 MG TABLET GT SCH (08:50)
[2018-09-16] MEDS: ACETAMINOPHEN 650 MG/20 ML UDC- SA PATIENTS-PAIN ONLY GT SCH ×2 (08:50→21:19)
[2018-09-16] MEDS: ZINC SULFATE 220 MG CAPSULE GT SCH (08:50)
[2018-09-16] MEDS: MULTIVIT W/MINERALS 1 TAB TABLET GT SCH (08:50)
[2018-09-16] MEDS: DOCUSATE SODIUM LIQ 100 MG/10 ML UDC GT SCH ×2 (08:50→17:43)
[2018-09-16] MEDS: HYDROGEN PEROXIDE 480 ML BOTTLE TP SCH ×2 (09:30→21:20)
[2018-09-16] MEDS: CLOTRIMAZOLE 1% CREAM 24 GM TUBE TP SCH ×2 (09:30→21:20)
[2018-09-16] MEDS: THERAHONEY GEL 1.5 OZ TUBE TP SCH ×2 (09:30→21:20)
[2018-09-16] MEDS: Z GUARD REMEDY 2 OZ OINT TP SCH ×2 (09:30→21:20)
[2018-09-16] MEDS: ENOXAPARIN SODIUM 40 MG/0.4 ML DISP.SYRIN SQ SCH (21:20)
[2018-09-16] MEDS: ATORVASTATIN 10 MG TABLET GT SCH (21:20)
[2018-09-16] MEDS: INSULIN GLARGINE, 100 UNIT/ML CARTRIDGE SQ SCH (21:28)
[2018-09-17 00:24] VITALS: BP 112/64
[2018-09-17] MEDS: DILTIAZEM HCL 30 MG TABLET GT SCH ×5 (00:26→23:31)
[2018-09-17] MEDS: BLOOD SUGAR DIAGNOSTIC 1 EACH STRIP IN SCH ×5 (00:26→23:31)
[2018-09-17] MEDS: INSULIN ASPART/LISPRO 100 UNIT/ML CARTRIDGE SQ PRN ×5 (00:28→23:32)
[2018-09-17] MEDS: ALBUTEROL FS 2.5 MG/3 ML VIAL.NEB NEB SCH ×4 (01:51→19:54)
[2018-09-17] MEDS: IPRATROPIUM NEB FS 0.5 MG/2.5 ML AMPUL.NEB NEB SCH ×4 (01:51→19:54)
[2018-09-17] MEDS: PANTOPRAZOLE 40 MG/PACK PACK GT SCH (05:58)
[2018-09-17 06:35] VITALS: BP 124/62
[2018-09-17 07:41] VITALS: BP 95/57
[2018-09-17] MEDS: VALSARTAN 80 MG TABLET GT SCH (09:00)
[2018-09-17] MEDS: MULTIVIT W/MINERALS 1 TAB TABLET GT SCH (09:06)
[2018-09-17] MEDS: ACIDOPHILUS/BULGARICUS 1 EACH TAB.CHEW GT SCH ×2 (09:06→17:35)
[2018-09-17] MEDS: ASCORBIC ACID 500 MG TABLET GT SCH (09:06)
[2018-09-17] MEDS: FERROUS SULFATE - FOR SA ONLY 330 MG/7.5 ML UDC GT SCH (09:06)
[2018-09-17] MEDS: ZINC SULFATE 220 MG CAPSULE GT SCH (09:06)
[2018-09-17] MEDS: LEVETIRACETAM SOL (5 ML) 100 MG/ML UDC GT SCH ×2 (09:06→21:17)
[2018-09-17] MEDS: DOCUSATE SODIUM LIQ 100 MG/10 ML UDC GT SCH ×2 (09:06→17:35)
[2018-09-17] MEDS: ACETAMINOPHEN 650 MG/20 ML UDC- SA PATIENTS-PAIN ONLY GT SCH ×2 (09:07→21:17)
[2018-09-17] MEDS: HYDROGEN PEROXIDE 480 ML BOTTLE TP SCH ×2 (09:45→21:18)
[2018-09-17] MEDS: Z GUARD REMEDY 2 OZ OINT TP SCH ×2 (09:45→21:18)
[2018-09-17] MEDS: CLOTRIMAZOLE 1% CREAM 24 GM TUBE TP SCH ×2 (09:45→21:18)
[2018-09-17] MEDS: THERAHONEY GEL 1.5 OZ TUBE TP SCH ×2 (09:45→21:18)
[2018-09-17 12:23] VITALS: BP 118/72
[2018-09-17] MEDS: GLUCERNA 1.2 1,000 ML BOTTLE GT PRN (17:48)
[2018-09-17 18:43] VITALS: BP 128/72
[2018-09-17 20:08] VITALS: BP 119/58
[2018-09-17] MEDS: ATORVASTATIN 10 MG TABLET GT SCH (21:18)
[2018-09-17] MEDS: ENOXAPARIN SODIUM 40 MG/0.4 ML DISP.SYRIN SQ SCH (21:18)
[2018-09-17] MEDS: INSULIN GLARGINE, 100 UNIT/ML CARTRIDGE SQ SCH (21:19)
[2018-09-18] MEDS: ALBUTEROL FS 2.5 MG/3 ML VIAL.NEB NEB SCH ×4 (01:48→19:58)
[2018-09-18] MEDS: IPRATROPIUM NEB FS 0.5 MG/2.5 ML AMPUL.NEB NEB SCH ×4 (01:48→19:58)
--- NOTE | 2018-09-18 02:43 | NUR ---
RT NOTE: RECEIVED PT ON 28% C/A. NO RESPIRATORY DISTRESS NOTED. TRACH CHECKED SECURE AND PATENT. SXD AND LAVAGE PT Q ROUND AND NEEDED. TXS GIVEN ORDERED WITH NO ADVERSE REACTIONS NOTED. GILBERTE VISH AND RAFFI GAINES @ BEDSIDE. WILL CONTINUE TO MONITOR. Addendum: 09/18/18 at 0243 by ELIJAH DHALIWAL RT Amended: Links added.
[2018-09-18 03:19] VITALS: BP 116/69
[2018-09-18] MEDS: PANTOPRAZOLE 40 MG/PACK PACK GT SCH (05:44)
[2018-09-18] MEDS: DILTIAZEM HCL 30 MG TABLET GT SCH ×3 (05:44→17:22)
[2018-09-18] MEDS: BLOOD SUGAR DIAGNOSTIC 1 EACH STRIP IN SCH ×3 (05:44→18:04)
[2018-09-18] MEDS: INSULIN ASPART/LISPRO 100 UNIT/ML CARTRIDGE SQ PRN ×2 (05:45→12:28)
[2018-09-18 06:09] VITALS: BP 128/70
[2018-09-18 07:51] VITALS: BP 105/68
[2018-09-18] MEDS: ACETAMINOPHEN 650 MG/20 ML UDC- SA PATIENTS-PAIN ONLY GT SCH ×2 (09:00→21:30)
[2018-09-18] MEDS: MULTIVIT W/MINERALS 1 TAB TABLET GT SCH (09:55)
[2018-09-18] MEDS: ASCORBIC ACID 500 MG TABLET GT SCH (09:55)
[2018-09-18] MEDS: LEVETIRACETAM SOL (5 ML) 100 MG/ML UDC GT SCH ×2 (09:55→21:29)
[2018-09-18] MEDS: DOCUSATE SODIUM LIQ 100 MG/10 ML UDC GT SCH ×2 (09:55→17:22)
[2018-09-18] MEDS: ZINC SULFATE 220 MG CAPSULE GT SCH (09:55)
[2018-09-18] MEDS: FERROUS SULFATE - FOR SA ONLY 330 MG/7.5 ML UDC GT SCH (09:55)
[2018-09-18] MEDS: ACIDOPHILUS/BULGARICUS 1 EACH TAB.CHEW GT SCH ×2 (09:55→17:22)
[2018-09-18] MEDS: VALSARTAN 80 MG TABLET GT SCH (09:55)
[2018-09-18] MEDS: CLOTRIMAZOLE 1% CREAM 24 GM TUBE TP SCH ×2 (10:00→21:31)
[2018-09-18] MEDS: Z GUARD REMEDY 2 OZ OINT TP SCH ×2 (10:00→21:31)
[2018-09-18] MEDS: THERAHONEY GEL 1.5 OZ TUBE TP SCH ×2 (10:00→21:31)
[2018-09-18] MEDS: HYDROGEN PEROXIDE 480 ML BOTTLE TP SCH ×2 (10:28→21:30)
--- NOTE | 2018-09-18 11:47 | NUR ---
SW COMMUNICATED TO HENRIETTA KEITA ABOUT THIS THURSDAY 09/21 IDT MTG.
[2018-09-18 12:00] VITALS: BP 134/76
[2018-09-18 18:54] VITALS: BP 137/74
[2018-09-18] MEDS: ENOXAPARIN SODIUM 40 MG/0.4 ML DISP.SYRIN SQ SCH (21:30)
[2018-09-18] MEDS: ATORVASTATIN 10 MG TABLET GT SCH (21:31)
[2018-09-18] MEDS: INSULIN GLARGINE, 100 UNIT/ML CARTRIDGE SQ SCH (21:31)
[2018-09-19] VITALS (7 sets, daily range): BP systolic 103–131; BP diastolic 57–82
[2018-09-19] MEDS: DILTIAZEM HCL 30 MG TABLET GT SCH ×4 (00:21→18:09)
[2018-09-19] MEDS: BLOOD SUGAR DIAGNOSTIC 1 EACH STRIP IN SCH ×4 (00:21→18:09)
[2018-09-19] MEDS: INSULIN ASPART/LISPRO 100 UNIT/ML CARTRIDGE SQ PRN ×3 (00:22→18:11)
[2018-09-19] MEDS: IPRATROPIUM NEB FS 0.5 MG/2.5 ML AMPUL.NEB NEB SCH ×5 (01:50→20:16)
[2018-09-19] MEDS: ALBUTEROL FS 2.5 MG/3 ML VIAL.NEB NEB SCH ×5 (01:50→20:16)
[2018-09-19] MEDS: PANTOPRAZOLE 40 MG/PACK PACK GT SCH (05:48)
[2018-09-19] MEDS: ACIDOPHILUS/BULGARICUS 1 EACH TAB.CHEW GT SCH ×2 (09:00→17:00)
[2018-09-19] MEDS: LEVETIRACETAM SOL (5 ML) 100 MG/ML UDC GT SCH ×2 (09:00→21:14)
[2018-09-19] MEDS: VALSARTAN 80 MG TABLET GT SCH (09:00)
[2018-09-19] MEDS: ASCORBIC ACID 500 MG TABLET GT SCH (09:00)
[2018-09-19] MEDS: ZINC SULFATE 220 MG CAPSULE GT SCH (09:00)
[2018-09-19] MEDS: MULTIVIT W/MINERALS 1 TAB TABLET GT SCH (09:00)
[2018-09-19] MEDS: ACETAMINOPHEN 650 MG/20 ML UDC- SA PATIENTS-PAIN ONLY GT SCH ×2 (09:00→21:15)
[2018-09-19] MEDS: DOCUSATE SODIUM LIQ 100 MG/10 ML UDC GT SCH ×2 (09:00→17:00)
[2018-09-19] MEDS: FERROUS SULFATE - FOR SA ONLY 330 MG/7.5 ML UDC GT SCH (09:00)
[2018-09-19] MEDS: CLOTRIMAZOLE 1% CREAM 24 GM TUBE TP SCH ×2 (10:00→21:45)
[2018-09-19] MEDS: HYDROGEN PEROXIDE 480 ML BOTTLE TP SCH ×2 (10:00→21:45)
[2018-09-19] MEDS: Z GUARD REMEDY 2 OZ OINT TP SCH ×2 (10:00→21:45)
[2018-09-19] MEDS: THERAHONEY GEL 1.5 OZ TUBE TP SCH ×2 (10:00→21:45)
[2018-09-19] MEDS: ATORVASTATIN 10 MG TABLET GT SCH (21:16)
[2018-09-19] MEDS: ENOXAPARIN SODIUM 40 MG/0.4 ML DISP.SYRIN SQ SCH (21:16)
[2018-09-19] MEDS: INSULIN GLARGINE, 100 UNIT/ML CARTRIDGE SQ SCH (21:29)
[2018-09-20 00:20] VITALS: BP 129/86
[2018-09-20] MEDS: GLUCERNA 1.2 1,000 ML BOTTLE GT PRN ×2 (00:30→19:19)
[2018-09-20] MEDS: DILTIAZEM HCL 30 MG TABLET GT SCH ×4 (00:30→17:22)
[2018-09-20] MEDS: BLOOD SUGAR DIAGNOSTIC 1 EACH STRIP IN SCH ×4 (00:30→17:22)
[2018-09-20] MEDS: INSULIN ASPART/LISPRO 100 UNIT/ML CARTRIDGE SQ PRN ×4 (00:32→17:23)
[2018-09-20] MEDS: IPRATROPIUM NEB FS 0.5 MG/2.5 ML AMPUL.NEB NEB SCH ×4 (01:47→18:56)
[2018-09-20] MEDS: ALBUTEROL FS 2.5 MG/3 ML VIAL.NEB NEB SCH ×4 (01:47→18:56)
[2018-09-20] MEDS: PANTOPRAZOLE 40 MG/PACK PACK GT SCH (05:31)
[2018-09-20 06:17] VITALS: BP 131/81
[2018-09-20 07:34] VITALS: BP 124/64
[2018-09-20] MEDS: LEVETIRACETAM SOL (5 ML) 100 MG/ML UDC GT SCH ×2 (08:59→20:51)
[2018-09-20] MEDS: MULTIVIT W/MINERALS 1 TAB TABLET GT SCH (08:59)
[2018-09-20] MEDS: FERROUS SULFATE - FOR SA ONLY 330 MG/7.5 ML UDC GT SCH (08:59)
[2018-09-20] MEDS: VALSARTAN 80 MG TABLET GT SCH (08:59)
[2018-09-20] MEDS: ACIDOPHILUS/BULGARICUS 1 EACH TAB.CHEW GT SCH ×2 (08:59→17:22)
[2018-09-20] MEDS: DOCUSATE SODIUM LIQ 100 MG/10 ML UDC GT SCH ×2 (08:59→17:22)
[2018-09-20] MEDS: ACETAMINOPHEN 650 MG/20 ML UDC- SA PATIENTS-PAIN ONLY GT SCH ×2 (09:00→20:52)
[2018-09-20] MEDS: ZINC SULFATE 220 MG CAPSULE GT SCH (09:00)
[2018-09-20] MEDS: ASCORBIC ACID 500 MG TABLET GT SCH (09:00)
[2018-09-20] MEDS: THERAHONEY GEL 1.5 OZ TUBE TP SCH ×2 (09:40→20:54)
[2018-09-20] MEDS: HYDROGEN PEROXIDE 480 ML BOTTLE TP SCH ×2 (09:40→20:53)
[2018-09-20] MEDS: CLOTRIMAZOLE 1% CREAM 24 GM TUBE TP SCH ×2 (09:40→20:53)
[2018-09-20] MEDS: Z GUARD REMEDY 2 OZ OINT TP SCH ×2 (09:40→20:53)
[2018-09-20 12:00] VITALS: BP 145/80
[2018-09-20 18:44] VITALS: BP 120/64
[2018-09-20 20:32] VITALS: BP 118/54
[2018-09-20] MEDS: ENOXAPARIN SODIUM 40 MG/0.4 ML DISP.SYRIN SQ SCH (20:53)
[2018-09-20] MEDS: ATORVASTATIN 10 MG TABLET GT SCH (21:25)
[2018-09-20] MEDS: INSULIN GLARGINE, 100 UNIT/ML CARTRIDGE SQ SCH (21:29)
[2018-09-21 00:11] VITALS: BP 109/64
[2018-09-21] MEDS: BLOOD SUGAR DIAGNOSTIC 1 EACH STRIP IN SCH ×5 (00:12→23:18)
[2018-09-21] MEDS: DILTIAZEM HCL 30 MG TABLET GT SCH ×5 (00:12→23:18)
[2018-09-21] MEDS: INSULIN ASPART/LISPRO 100 UNIT/ML CARTRIDGE SQ PRN ×5 (00:13→23:19)
[2018-09-21] MEDS: ALBUTEROL FS 2.5 MG/3 ML VIAL.NEB NEB SCH ×4 (00:33→19:45)
[2018-09-21] MEDS: IPRATROPIUM NEB FS 0.5 MG/2.5 ML AMPUL.NEB NEB SCH ×4 (00:33→19:45)
[2018-09-21] MEDS: PANTOPRAZOLE 40 MG/PACK PACK GT SCH (05:25)
[2018-09-21 06:13] VITALS: BP 121/70
[2018-09-21 08:15] VITALS: BP 102/60
[2018-09-21] MEDS: MULTIVIT W/MINERALS 1 TAB TABLET GT SCH (08:48)
[2018-09-21] MEDS: VALSARTAN 80 MG TABLET GT SCH (08:48)
[2018-09-21] MEDS: ACIDOPHILUS/BULGARICUS 1 EACH TAB.CHEW GT SCH ×2 (08:48→17:37)
[2018-09-21] MEDS: LEVETIRACETAM SOL (5 ML) 100 MG/ML UDC GT SCH ×2 (08:48→21:15)
[2018-09-21] MEDS: FERROUS SULFATE - FOR SA ONLY 330 MG/7.5 ML UDC GT SCH (08:48)
[2018-09-21] MEDS: DOCUSATE SODIUM LIQ 100 MG/10 ML UDC GT SCH ×2 (08:48→17:37)
[2018-09-21] MEDS: ASCORBIC ACID 500 MG TABLET GT SCH (08:49)
[2018-09-21] MEDS: ACETAMINOPHEN 650 MG/20 ML UDC- SA PATIENTS-PAIN ONLY GT SCH ×2 (08:49→21:15)
[2018-09-21] MEDS: ZINC SULFATE 220 MG CAPSULE GT SCH (08:49)
[2018-09-21] MEDS: CLOTRIMAZOLE 1% CREAM 24 GM TUBE TP SCH ×2 (09:30→21:16)
[2018-09-21] MEDS: HYDROGEN PEROXIDE 480 ML BOTTLE TP SCH ×2 (09:30→21:16)
[2018-09-21] MEDS: THERAHONEY GEL 1.5 OZ TUBE TP SCH ×2 (09:30→21:16)
[2018-09-21] MEDS: Z GUARD REMEDY 2 OZ OINT TP SCH ×2 (09:30→21:16)
[2018-09-21] MEDS: GLUCERNA 1.2 1,000 ML BOTTLE GT PRN (11:22)
[2018-09-21 12:00] VITALS: BP 96/61
--- NOTE | 2018-09-21 13:16 | NUR ---
INTERDISCIPLINARY TEAM CONFERENCE (IDT) was held today. Resident's mother Kelly was not able to attend today's IDT meeting. Charge nurse Janice noted patient gained 3.7 pounds and is overall is stable. Dr. Capone and the interdisciplinary team reviewed the current plan of care in detail. Orders as well as treatment and medications were reviewed .No new orders were given.
[2018-09-21 18:00] VITALS: BP 111/67
[2018-09-21 20:04] VITALS: BP 113/63
[2018-09-21] MEDS: ATORVASTATIN 10 MG TABLET GT SCH (21:16)
[2018-09-21] MEDS: ENOXAPARIN SODIUM 40 MG/0.4 ML DISP.SYRIN SQ SCH (21:16)
[2018-09-21] MEDS: INSULIN GLARGINE, 100 UNIT/ML CARTRIDGE SQ SCH (21:17)
[2018-09-22] MEDS: ALBUTEROL FS 2.5 MG/3 ML VIAL.NEB NEB SCH ×4 (00:54→19:49)
[2018-09-22] MEDS: IPRATROPIUM NEB FS 0.5 MG/2.5 ML AMPUL.NEB NEB SCH ×4 (00:54→19:49)
[2018-09-22 01:02] VITALS: BP 123/76
[2018-09-22] MEDS: GLUCERNA 1.2 1,000 ML BOTTLE GT PRN ×2 (05:15→18:51)
[2018-09-22] MEDS: PANTOPRAZOLE 40 MG/PACK PACK GT SCH (05:15)
[2018-09-22] MEDS: BLOOD SUGAR DIAGNOSTIC 1 EACH STRIP IN SCH ×4 (05:15→23:22)
[2018-09-22] MEDS: DILTIAZEM HCL 30 MG TABLET GT SCH ×4 (05:15→23:21)
[2018-09-22] MEDS: INSULIN ASPART/LISPRO 100 UNIT/ML CARTRIDGE SQ PRN ×3 (05:16→23:22)
[2018-09-22 06:13] VITALS: BP 110/77
[2018-09-22 07:44] VITALS: BP 106/65
[2018-09-22] MEDS: ZINC SULFATE 220 MG CAPSULE GT SCH (09:55)
[2018-09-22] MEDS: DOCUSATE SODIUM LIQ 100 MG/10 ML UDC GT SCH ×2 (09:55→17:46)
[2018-09-22] MEDS: MULTIVIT W/MINERALS 1 TAB TABLET GT SCH (09:55)
[2018-09-22] MEDS: ASCORBIC ACID 500 MG TABLET GT SCH (09:55)
[2018-09-22] MEDS: VALSARTAN 80 MG TABLET GT SCH (09:55)
[2018-09-22] MEDS: ACETAMINOPHEN 650 MG/20 ML UDC- SA PATIENTS-PAIN ONLY GT SCH ×2 (09:55→20:20)
[2018-09-22] MEDS: LEVETIRACETAM SOL (5 ML) 100 MG/ML UDC GT SCH ×2 (09:55→20:19)
[2018-09-22] MEDS: ACIDOPHILUS/BULGARICUS 1 EACH TAB.CHEW GT SCH ×2 (09:55→17:46)
[2018-09-22] MEDS: FERROUS SULFATE - FOR SA ONLY 330 MG/7.5 ML UDC GT SCH (09:55)
[2018-09-22] MEDS: Z GUARD REMEDY 2 OZ OINT TP SCH ×2 (10:55→20:20)
[2018-09-22] MEDS: HYDROGEN PEROXIDE 480 ML BOTTLE TP SCH ×2 (10:55→20:20)
[2018-09-22] MEDS: THERAHONEY GEL 1.5 OZ TUBE TP SCH ×2 (10:55→20:20)
[2018-09-22] MEDS: CLOTRIMAZOLE 1% CREAM 24 GM TUBE TP SCH ×2 (10:55→20:20)
[2018-09-22 12:00] VITALS: BP 127/71
[2018-09-22 19:02] VITALS: BP 109/62
[2018-09-22] MEDS: ENOXAPARIN SODIUM 40 MG/0.4 ML DISP.SYRIN SQ SCH (20:20)
[2018-09-22 20:27] VITALS: BP 126/76
[2018-09-22] MEDS: ATORVASTATIN 10 MG TABLET GT SCH (21:07)
[2018-09-22] MEDS: INSULIN GLARGINE, 100 UNIT/ML CARTRIDGE SQ SCH (21:08)
[2018-09-23 01:16] VITALS: BP 137/76
[2018-09-23] MEDS: IPRATROPIUM NEB FS 0.5 MG/2.5 ML AMPUL.NEB NEB SCH ×4 (01:36→19:43)
[2018-09-23] MEDS: ALBUTEROL FS 2.5 MG/3 ML VIAL.NEB NEB SCH ×4 (01:36→19:48)
--- NOTE | 2018-09-23 04:07 | NUR ---
RT NOTE: RECEIVED PT ON 28% C/A. NO RESPIRATORY DISTRESS NOTED. TRACH CHECKED SECURE AND PATENT. SXD AND LAVAGE PT Q ROUND AND NEEDED. TXS GIVEN ORDERED WITH NO ADVERSE REACTIONS NOTED. GILBERTE VISH AND RAFFI GAINES @ BEDSIDE. WILL CONTINUE TO MONITOR. Addendum: 09/23/18 at 0407 by ELIJAH DHALIWAL RT Amended: Links added.
[2018-09-23] MEDS: DILTIAZEM HCL 30 MG TABLET GT SCH ×3 (05:18→17:12)
[2018-09-23] MEDS: PANTOPRAZOLE 40 MG/PACK PACK GT SCH (05:18)
[2018-09-23] MEDS: BLOOD SUGAR DIAGNOSTIC 1 EACH STRIP IN SCH ×3 (05:18→17:49)
[2018-09-23] MEDS: INSULIN ASPART/LISPRO 100 UNIT/ML CARTRIDGE SQ PRN ×3 (05:19→17:50)
[2018-09-23 06:10] VITALS: BP 109/58
[2018-09-23 08:12] VITALS: BP 126/67
[2018-09-23] MEDS: HYDROGEN PEROXIDE 480 ML BOTTLE TP SCH ×2 (09:00→21:14)
[2018-09-23] MEDS: THERAHONEY GEL 1.5 OZ TUBE TP SCH ×2 (09:00→21:15)
[2018-09-23] MEDS: Z GUARD REMEDY 2 OZ OINT TP SCH ×2 (09:00→21:15)
[2018-09-23] MEDS: CLOTRIMAZOLE 1% CREAM 24 GM TUBE TP SCH ×2 (09:00→21:15)
[2018-09-23] MEDS: VALSARTAN 80 MG TABLET GT SCH (09:21)
[2018-09-23] MEDS: DOCUSATE SODIUM LIQ 100 MG/10 ML UDC GT SCH ×2 (09:21→16:49)
[2018-09-23] MEDS: ACIDOPHILUS/BULGARICUS 1 EACH TAB.CHEW GT SCH ×2 (09:22→16:49)
[2018-09-23] MEDS: FERROUS SULFATE - FOR SA ONLY 330 MG/7.5 ML UDC GT SCH (09:22)
[2018-09-23] MEDS: ACETAMINOPHEN 650 MG/20 ML UDC- SA PATIENTS-PAIN ONLY GT SCH ×2 (09:22→21:14)
[2018-09-23] MEDS: ASCORBIC ACID 500 MG TABLET GT SCH (09:22)
[2018-09-23] MEDS: LEVETIRACETAM SOL (5 ML) 100 MG/ML UDC GT SCH ×2 (09:22→21:14)
[2018-09-23] MEDS: ZINC SULFATE 220 MG CAPSULE GT SCH (09:23)
[2018-09-23] MEDS: MULTIVIT W/MINERALS 1 TAB TABLET GT SCH (09:30)
[2018-09-23 12:00] VITALS: BP 118/79
[2018-09-23] MEDS: GLUCERNA 1.2 1,000 ML BOTTLE GT PRN (16:50)
[2018-09-23 18:05] VITALS: BP 129/77
[2018-09-23 20:18] VITALS: BP 135/69
[2018-09-23] MEDS: ENOXAPARIN SODIUM 40 MG/0.4 ML DISP.SYRIN SQ SCH (21:14)
[2018-09-23] MEDS: INSULIN GLARGINE, 100 UNIT/ML CARTRIDGE SQ SCH (21:15)
[2018-09-23] MEDS: ATORVASTATIN 10 MG TABLET GT SCH (21:15)
[2018-09-24] VITALS: BP 101/53
[2018-09-24] MEDS: BLOOD SUGAR DIAGNOSTIC 1 EACH STRIP IN SCH ×5 (00:14→23:15)
[2018-09-24] MEDS: DILTIAZEM HCL 30 MG TABLET GT SCH ×5 (00:14→23:14)
[2018-09-24] MEDS: INSULIN ASPART/LISPRO 100 UNIT/ML CARTRIDGE SQ PRN ×5 (00:16→23:16)
[2018-09-24] MEDS: IPRATROPIUM NEB FS 0.5 MG/2.5 ML AMPUL.NEB NEB SCH ×4 (01:42→19:20)
[2018-09-24] MEDS: ALBUTEROL FS 2.5 MG/3 ML VIAL.NEB NEB SCH ×4 (01:42→19:20)
[2018-09-24] MEDS: PANTOPRAZOLE 40 MG/PACK PACK GT SCH (05:47)
[2018-09-24 06:00] VITALS: BP 119/73
[2018-09-24 08:02] VITALS: BP 128/57
[2018-09-24] MEDS: DOCUSATE SODIUM LIQ 100 MG/10 ML UDC GT SCH ×2 (08:27→17:44)
[2018-09-24] MEDS: VALSARTAN 80 MG TABLET GT SCH (08:28)
[2018-09-24] MEDS: LEVETIRACETAM SOL (5 ML) 100 MG/ML UDC GT SCH ×2 (08:29→21:39)
[2018-09-24] MEDS: FERROUS SULFATE - FOR SA ONLY 330 MG/7.5 ML UDC GT SCH (08:29)
[2018-09-24] MEDS: MULTIVIT W/MINERALS 1 TAB TABLET GT SCH (08:30)
[2018-09-24] MEDS: ACIDOPHILUS/BULGARICUS 1 EACH TAB.CHEW GT SCH ×2 (08:30→17:44)
[2018-09-24] MEDS: ZINC SULFATE 220 MG CAPSULE GT SCH (08:31)
[2018-09-24] MEDS: ACETAMINOPHEN 650 MG/20 ML UDC- SA PATIENTS-PAIN ONLY GT SCH ×2 (08:31→21:39)
[2018-09-24] MEDS: ASCORBIC ACID 500 MG TABLET GT SCH (08:31)
[2018-09-24] MEDS: HYDROGEN PEROXIDE 480 ML BOTTLE TP SCH ×2 (09:31→22:15)
[2018-09-24] MEDS: THERAHONEY GEL 1.5 OZ TUBE TP SCH ×2 (09:31→22:15)
[2018-09-24] MEDS: CLOTRIMAZOLE 1% CREAM 24 GM TUBE TP SCH ×2 (09:31→22:15)
[2018-09-24] MEDS: Z GUARD REMEDY 2 OZ OINT TP SCH ×2 (09:31→22:15)
[2018-09-24 12:00] VITALS: BP 98/69
[2018-09-24] MEDS: GLUCERNA 1.2 1,000 ML BOTTLE GT PRN (13:04)
[2018-09-24 18:29] VITALS: BP 115/62
[2018-09-24 20:33] VITALS: BP 110/61
[2018-09-24] MEDS: ATORVASTATIN 10 MG TABLET GT SCH (21:40)
[2018-09-24] MEDS: ENOXAPARIN SODIUM 40 MG/0.4 ML DISP.SYRIN SQ SCH (21:40)
[2018-09-24] MEDS: INSULIN GLARGINE, 100 UNIT/ML CARTRIDGE SQ SCH (21:43)
[2018-09-25 00:19] VITALS: BP 110/60
[2018-09-25] MEDS: ALBUTEROL FS 2.5 MG/3 ML VIAL.NEB NEB SCH ×4 (00:56→20:00)
[2018-09-25] MEDS: IPRATROPIUM NEB FS 0.5 MG/2.5 ML AMPUL.NEB NEB SCH ×4 (00:56→20:00)
[2018-09-25] MEDS: PANTOPRAZOLE 40 MG/PACK PACK GT SCH (05:10)
[2018-09-25] MEDS: DILTIAZEM HCL 30 MG TABLET GT SCH ×3 (05:10→18:06)
[2018-09-25] MEDS: BLOOD SUGAR DIAGNOSTIC 1 EACH STRIP IN SCH ×3 (05:11→18:06)
[2018-09-25] MEDS: INSULIN ASPART/LISPRO 100 UNIT/ML CARTRIDGE SQ PRN ×2 (05:11→12:47)
[2018-09-25] MEDS: GLUCERNA 1.2 1,000 ML BOTTLE GT PRN (05:12)
[2018-09-25 06:16] VITALS: BP 116/58
[2018-09-25 07:45] VITALS: BP 120/74
[2018-09-25] MEDS: ZINC SULFATE 220 MG CAPSULE GT SCH (08:59)
[2018-09-25] MEDS: DOCUSATE SODIUM LIQ 100 MG/10 ML UDC GT SCH ×2 (08:59→17:59)
[2018-09-25] MEDS: LEVETIRACETAM SOL (5 ML) 100 MG/ML UDC GT SCH ×2 (08:59→21:19)
[2018-09-25] MEDS: ACIDOPHILUS/BULGARICUS 1 EACH TAB.CHEW GT SCH ×2 (08:59→17:59)
[2018-09-25] MEDS: HYDROGEN PEROXIDE 480 ML BOTTLE TP SCH ×2 (08:59→21:22)
[2018-09-25] MEDS: MULTIVIT W/MINERALS 1 TAB TABLET GT SCH (08:59)
[2018-09-25] MEDS: FERROUS SULFATE - FOR SA ONLY 330 MG/7.5 ML UDC GT SCH (08:59)
[2018-09-25] MEDS: ACETAMINOPHEN 650 MG/20 ML UDC- SA PATIENTS-PAIN ONLY GT SCH ×2 (08:59→21:21)
[2018-09-25] MEDS: VALSARTAN 80 MG TABLET GT SCH (08:59)
[2018-09-25] MEDS: ASCORBIC ACID 500 MG TABLET GT SCH (08:59)
[2018-09-25] MEDS: CLOTRIMAZOLE 1% CREAM 24 GM TUBE TP SCH ×2 (10:00→21:22)
[2018-09-25] MEDS: Z GUARD REMEDY 2 OZ OINT TP SCH ×2 (10:00→21:22)
[2018-09-25] MEDS: THERAHONEY GEL 1.5 OZ TUBE TP SCH ×2 (10:00→21:23)
[2018-09-25 12:00] VITALS: BP 132/75
[2018-09-25 18:50] VITALS: BP 137/86
[2018-09-25 20:45] VITALS: BP 132/73
[2018-09-25] MEDS: ENOXAPARIN SODIUM 40 MG/0.4 ML DISP.SYRIN SQ SCH (21:22)
[2018-09-25] MEDS: ATORVASTATIN 10 MG TABLET GT SCH (21:24)
[2018-09-25] MEDS: INSULIN GLARGINE, 100 UNIT/ML CARTRIDGE SQ SCH (22:01)
[2018-09-26] VITALS: BP 136/78
[2018-09-26] MEDS: DILTIAZEM HCL 30 MG TABLET GT SCH ×5 (00:15→23:24)
[2018-09-26] MEDS: BLOOD SUGAR DIAGNOSTIC 1 EACH STRIP IN SCH ×5 (00:16→23:24)
[2018-09-26] MEDS: INSULIN ASPART/LISPRO 100 UNIT/ML CARTRIDGE SQ PRN ×5 (00:19→23:25)
[2018-09-26] MEDS: GLUCERNA 1.2 1,000 ML BOTTLE GT PRN ×2 (00:36→17:25)
[2018-09-26] MEDS: IPRATROPIUM NEB FS 0.5 MG/2.5 ML AMPUL.NEB NEB SCH ×4 (01:28→19:30)
[2018-09-26] MEDS: ALBUTEROL FS 2.5 MG/3 ML VIAL.NEB NEB SCH ×4 (01:28→19:30)
[2018-09-26 06:00] VITALS: BP 123/60
[2018-09-26] MEDS: PANTOPRAZOLE 40 MG/PACK PACK GT SCH (06:12)
[2018-09-26] MEDS: THERAHONEY GEL 1.5 OZ TUBE TP SCH ×2 (09:00→21:05)
[2018-09-26] MEDS: Z GUARD REMEDY 2 OZ OINT TP SCH ×2 (09:00→21:05)
[2018-09-26] MEDS: CLOTRIMAZOLE 1% CREAM 24 GM TUBE TP SCH ×2 (09:00→21:05)
[2018-09-26] MEDS: ASCORBIC ACID 500 MG TABLET GT SCH (09:58)
[2018-09-26] MEDS: HYDROGEN PEROXIDE 480 ML BOTTLE TP SCH ×2 (09:58→21:05)
[2018-09-26] MEDS: ZINC SULFATE 220 MG CAPSULE GT SCH (09:58)
[2018-09-26] MEDS: ACETAMINOPHEN 650 MG/20 ML UDC- SA PATIENTS-PAIN ONLY GT SCH ×2 (09:58→20:26)
[2018-09-26] MEDS: FERROUS SULFATE - FOR SA ONLY 330 MG/7.5 ML UDC GT SCH (09:58)
[2018-09-26] MEDS: LEVETIRACETAM SOL (5 ML) 100 MG/ML UDC GT SCH ×2 (09:58→20:25)
[2018-09-26] MEDS: ACIDOPHILUS/BULGARICUS 1 EACH TAB.CHEW GT SCH ×2 (09:58→17:25)
[2018-09-26] MEDS: MULTIVIT W/MINERALS 1 TAB TABLET GT SCH (09:58)
[2018-09-26] MEDS: VALSARTAN 80 MG TABLET GT SCH (09:59)
[2018-09-26] MEDS: DOCUSATE SODIUM LIQ 100 MG/10 ML UDC GT SCH ×2 (09:59→17:25)
[2018-09-26 10:05] VITALS: BP 136/65
[2018-09-26 12:00] VITALS: BP 142/85
[2018-09-26 18:53] VITALS: BP 113/65
[2018-09-26] MEDS: ENOXAPARIN SODIUM 40 MG/0.4 ML DISP.SYRIN SQ SCH (20:26)
[2018-09-26 20:31] VITALS: BP 119/77
[2018-09-26] MEDS: ATORVASTATIN 10 MG TABLET GT SCH (21:06)
[2018-09-26] MEDS: INSULIN GLARGINE, 100 UNIT/ML CARTRIDGE SQ SCH (21:07)
[2018-09-27 00:11] VITALS: BP 123/66
[2018-09-27] MEDS: IPRATROPIUM NEB FS 0.5 MG/2.5 ML AMPUL.NEB NEB SCH ×4 (01:24→19:51)
[2018-09-27] MEDS: ALBUTEROL FS 2.5 MG/3 ML VIAL.NEB NEB SCH ×4 (01:25→19:51)
[2018-09-27] MEDS: DILTIAZEM HCL 30 MG TABLET GT SCH ×4 (05:20→23:57)
[2018-09-27] MEDS: BLOOD SUGAR DIAGNOSTIC 1 EACH STRIP IN SCH ×4 (05:20→23:57)
[2018-09-27] MEDS: PANTOPRAZOLE 40 MG/PACK PACK GT SCH (05:20)
[2018-09-27] MEDS: INSULIN ASPART/LISPRO 100 UNIT/ML CARTRIDGE SQ PRN ×4 (05:21→23:58)
[2018-09-27] MEDS: GLUCERNA 1.2 1,000 ML BOTTLE GT PRN ×2 (05:35→23:58)
[2018-09-27 06:20] VITALS: BP 120/62
[2018-09-27 08:00] VITALS: BP 131/66
[2018-09-27] MEDS: CLOTRIMAZOLE 1% CREAM 24 GM TUBE TP SCH ×2 (09:00→20:50)
[2018-09-27] MEDS: THERAHONEY GEL 1.5 OZ TUBE TP SCH ×2 (09:00→20:50)
[2018-09-27] MEDS: Z GUARD REMEDY 2 OZ OINT TP SCH ×2 (09:00→20:50)
[2018-09-27] MEDS: MULTIVIT W/MINERALS 1 TAB TABLET GT SCH (09:36)
[2018-09-27] MEDS: ASCORBIC ACID 500 MG TABLET GT SCH (09:36)
[2018-09-27] MEDS: VALSARTAN 80 MG TABLET GT SCH (09:36)
[2018-09-27] MEDS: ZINC SULFATE 220 MG CAPSULE GT SCH (09:36)
[2018-09-27] MEDS: HYDROGEN PEROXIDE 480 ML BOTTLE TP SCH ×2 (09:36→20:49)
[2018-09-27] MEDS: DOCUSATE SODIUM LIQ 100 MG/10 ML UDC GT SCH ×2 (09:36→17:14)
[2018-09-27] MEDS: ACIDOPHILUS/BULGARICUS 1 EACH TAB.CHEW GT SCH ×2 (09:36→17:14)
[2018-09-27] MEDS: ACETAMINOPHEN 650 MG/20 ML UDC- SA PATIENTS-PAIN ONLY GT SCH ×2 (09:36→20:38)
[2018-09-27] MEDS: LEVETIRACETAM SOL (5 ML) 100 MG/ML UDC GT SCH ×2 (09:36→20:38)
[2018-09-27] MEDS: FERROUS SULFATE - FOR SA ONLY 330 MG/7.5 ML UDC GT SCH (09:36)
[2018-09-27 12:00] VITALS: BP 136/86
[2018-09-27 18:50] VITALS: BP 113/88
[2018-09-27 20:25] VITALS: BP 136/73
[2018-09-27] MEDS: ENOXAPARIN SODIUM 40 MG/0.4 ML DISP.SYRIN SQ SCH (20:38)
[2018-09-27] MEDS: INSULIN GLARGINE, 100 UNIT/ML CARTRIDGE SQ SCH (21:26)
[2018-09-27] MEDS: ATORVASTATIN 10 MG TABLET GT SCH (21:26)
[2018-09-28 00:08] VITALS: BP 127/56
[2018-09-28] MEDS: ALBUTEROL FS 2.5 MG/3 ML VIAL.NEB NEB SCH ×4 (01:24→20:18)
[2018-09-28] MEDS: IPRATROPIUM NEB FS 0.5 MG/2.5 ML AMPUL.NEB NEB SCH ×4 (01:24→20:18)
[2018-09-28] MEDS: DILTIAZEM HCL 30 MG TABLET GT SCH ×4 (05:33→23:36)
[2018-09-28] MEDS: BLOOD SUGAR DIAGNOSTIC 1 EACH STRIP IN SCH ×4 (05:33→23:36)
[2018-09-28] MEDS: PANTOPRAZOLE 40 MG/PACK PACK GT SCH (05:33)
[2018-09-28] MEDS: INSULIN ASPART/LISPRO 100 UNIT/ML CARTRIDGE SQ PRN ×4 (05:34→23:37)
[2018-09-28 06:22] VITALS: BP 116/57
[2018-09-28 07:37] VITALS: BP 112/62
[2018-09-28] MEDS: ACETAMINOPHEN 650 MG/20 ML UDC- SA PATIENTS-PAIN ONLY GT SCH ×2 (09:05→20:34)
[2018-09-28] MEDS: DOCUSATE SODIUM LIQ 100 MG/10 ML UDC GT SCH ×2 (09:06→17:14)
[2018-09-28] MEDS: VALSARTAN 80 MG TABLET GT SCH (09:07)
[2018-09-28] MEDS: MULTIVIT W/MINERALS 1 TAB TABLET GT SCH (09:07)
[2018-09-28] MEDS: ASCORBIC ACID 500 MG TABLET GT SCH (09:07)
[2018-09-28] MEDS: ACIDOPHILUS/BULGARICUS 1 EACH TAB.CHEW GT SCH ×2 (09:07→17:14)
[2018-09-28] MEDS: FERROUS SULFATE - FOR SA ONLY 330 MG/7.5 ML UDC GT SCH (09:07)
[2018-09-28] MEDS: LEVETIRACETAM SOL (5 ML) 100 MG/ML UDC GT SCH ×2 (09:07→20:34)
[2018-09-28] MEDS: ZINC SULFATE 220 MG CAPSULE GT SCH (09:07)
[2018-09-28] MEDS: CLOTRIMAZOLE 1% CREAM 24 GM TUBE TP SCH ×2 (09:40→20:35)
[2018-09-28] MEDS: Z GUARD REMEDY 2 OZ OINT TP SCH ×2 (09:40→20:35)
[2018-09-28] MEDS: THERAHONEY GEL 1.5 OZ TUBE TP SCH ×2 (09:40→20:35)
[2018-09-28] MEDS: HYDROGEN PEROXIDE 480 ML BOTTLE TP SCH ×2 (09:40→20:35)
[2018-09-28 12:00] VITALS: BP 107/53
[2018-09-28] MEDS: GLUCERNA 1.2 1,000 ML BOTTLE GT PRN (17:00)
[2018-09-28 18:19] VITALS: BP 113/53
[2018-09-28 20:12] VITALS: BP 104/74
[2018-09-28] MEDS: ENOXAPARIN SODIUM 40 MG/0.4 ML DISP.SYRIN SQ SCH (20:35)
[2018-09-28] MEDS: ATORVASTATIN 10 MG TABLET GT SCH (21:04)
[2018-09-28] MEDS: INSULIN GLARGINE, 100 UNIT/ML CARTRIDGE SQ SCH (21:05)
[2018-09-29 00:28] VITALS: BP 109/57
[2018-09-29] MEDS: IPRATROPIUM NEB FS 0.5 MG/2.5 ML AMPUL.NEB NEB SCH ×4 (02:12→19:51)
[2018-09-29] MEDS: ALBUTEROL FS 2.5 MG/3 ML VIAL.NEB NEB SCH ×4 (02:13→19:51)
[2018-09-29] MEDS: DILTIAZEM HCL 30 MG TABLET GT SCH ×4 (05:28→23:45)
[2018-09-29] MEDS: BLOOD SUGAR DIAGNOSTIC 1 EACH STRIP IN SCH ×4 (05:28→23:45)
[2018-09-29] MEDS: PANTOPRAZOLE 40 MG/PACK PACK GT SCH (05:28)
[2018-09-29] MEDS: INSULIN ASPART/LISPRO 100 UNIT/ML CARTRIDGE SQ PRN ×4 (05:29→23:46)
[2018-09-29 06:21] VITALS: BP 129/57
[2018-09-29 08:00] VITALS: BP 133/66
[2018-09-29] MEDS: ACIDOPHILUS/BULGARICUS 1 EACH TAB.CHEW GT SCH ×2 (09:10→16:48)
[2018-09-29] MEDS: MULTIVIT W/MINERALS 1 TAB TABLET GT SCH (09:10)
[2018-09-29] MEDS: ASCORBIC ACID 500 MG TABLET GT SCH (09:10)
[2018-09-29] MEDS: DOCUSATE SODIUM LIQ 100 MG/10 ML UDC GT SCH ×2 (09:10→16:48)
[2018-09-29] MEDS: ACETAMINOPHEN 650 MG/20 ML UDC- SA PATIENTS-PAIN ONLY GT SCH ×2 (09:10→20:20)
[2018-09-29] MEDS: FERROUS SULFATE - FOR SA ONLY 330 MG/7.5 ML UDC GT SCH (09:10)
[2018-09-29] MEDS: LEVETIRACETAM SOL (5 ML) 100 MG/ML UDC GT SCH ×2 (09:10→20:20)
[2018-09-29] MEDS: ZINC SULFATE 220 MG CAPSULE GT SCH (09:10)
[2018-09-29] MEDS: VALSARTAN 80 MG TABLET GT SCH (09:11)
[2018-09-29] MEDS: CLOTRIMAZOLE 1% CREAM 24 GM TUBE TP SCH ×2 (09:45→20:21)
[2018-09-29] MEDS: Z GUARD REMEDY 2 OZ OINT TP SCH ×2 (09:45→20:22)
[2018-09-29] MEDS: HYDROGEN PEROXIDE 480 ML BOTTLE TP SCH ×2 (09:45→20:21)
[2018-09-29] MEDS: THERAHONEY GEL 1.5 OZ TUBE TP SCH ×2 (09:45→20:22)
[2018-09-29] MEDS: GLUCERNA 1.2 1,000 ML BOTTLE GT PRN (11:48)
[2018-09-29 12:00] VITALS: BP 120/66
[2018-09-29 18:29] VITALS: BP 126/66
[2018-09-29] MEDS: ENOXAPARIN SODIUM 40 MG/0.4 ML DISP.SYRIN SQ SCH (20:20)
[2018-09-29 20:54] VITALS: BP 134/71
[2018-09-29] MEDS: ATORVASTATIN 10 MG TABLET GT SCH (21:06)
[2018-09-29] MEDS: INSULIN GLARGINE, 100 UNIT/ML CARTRIDGE SQ SCH (21:08)
[2018-09-30 00:28] VITALS: BP 116/58
[2018-09-30] MEDS: IPRATROPIUM NEB FS 0.5 MG/2.5 ML AMPUL.NEB NEB SCH ×4 (01:52→19:56)
[2018-09-30] MEDS: ALBUTEROL FS 2.5 MG/3 ML VIAL.NEB NEB SCH ×4 (01:52→19:57)
[2018-09-30] MEDS: PANTOPRAZOLE 40 MG/PACK PACK GT SCH (05:25)
[2018-09-30] MEDS: DILTIAZEM HCL 30 MG TABLET GT SCH ×3 (05:25→17:11)
[2018-09-30] MEDS: BLOOD SUGAR DIAGNOSTIC 1 EACH STRIP IN SCH ×3 (05:25→17:11)
[2018-09-30] MEDS: INSULIN ASPART/LISPRO 100 UNIT/ML CARTRIDGE SQ PRN ×3 (05:26→17:11)
[2018-09-30] MEDS: GLUCERNA 1.2 1,000 ML BOTTLE GT PRN (05:26)
[2018-09-30 06:16] VITALS: BP 114/58
[2018-09-30 08:15] VITALS: BP 115/18
[2018-09-30] MEDS: DOCUSATE SODIUM LIQ 100 MG/10 ML UDC GT SCH ×2 (08:59→17:11)
[2018-09-30] MEDS: ACETAMINOPHEN 650 MG/20 ML UDC- SA PATIENTS-PAIN ONLY GT SCH ×2 (09:00→21:34)
[2018-09-30] MEDS: ZINC SULFATE 220 MG CAPSULE GT SCH (09:01)
[2018-09-30] MEDS: ASCORBIC ACID 500 MG TABLET GT SCH (09:01)
[2018-09-30] MEDS: FERROUS SULFATE - FOR SA ONLY 330 MG/7.5 ML UDC GT SCH (09:02)
[2018-09-30] MEDS: VALSARTAN 80 MG TABLET GT SCH (09:02)
[2018-09-30] MEDS: ACIDOPHILUS/BULGARICUS 1 EACH TAB.CHEW GT SCH ×2 (09:02→17:11)
[2018-09-30] MEDS: MULTIVIT W/MINERALS 1 TAB TABLET GT SCH (09:02)
[2018-09-30] MEDS: LEVETIRACETAM SOL (5 ML) 100 MG/ML UDC GT SCH ×2 (09:02→21:33)
[2018-09-30] MEDS: CLOTRIMAZOLE 1% CREAM 24 GM TUBE TP SCH ×2 (09:40→21:34)
[2018-09-30] MEDS: Z GUARD REMEDY 2 OZ OINT TP SCH ×2 (09:40→21:34)
[2018-09-30] MEDS: HYDROGEN PEROXIDE 480 ML BOTTLE TP SCH ×2 (09:40→21:34)
[2018-09-30] MEDS: THERAHONEY GEL 1.5 OZ TUBE TP SCH ×2 (09:40→21:34)
[2018-09-30 12:00] VITALS: BP 114/65
[2018-09-30 18:01] VITALS: BP 116/53
[2018-09-30 19:42] VITALS: BP 120/66
[2018-09-30] MEDS: ENOXAPARIN SODIUM 40 MG/0.4 ML DISP.SYRIN SQ SCH (21:34)
[2018-09-30] MEDS: ZINC OXIDE 30 GM TUBE TP SCH (21:35)
[2018-09-30] MEDS: ATORVASTATIN 10 MG TABLET GT SCH (21:35)
[2018-09-30] MEDS: INSULIN GLARGINE, 100 UNIT/ML CARTRIDGE SQ SCH (21:35)
[2018-10-01] VITALS: BP 118/83
[2018-10-01] MEDS: BLOOD SUGAR DIAGNOSTIC 1 EACH STRIP IN SCH ×5 (00:39→23:22)
[2018-10-01] MEDS: INSULIN ASPART/LISPRO 100 UNIT/ML CARTRIDGE SQ PRN ×5 (00:39→23:23)
[2018-10-01] MEDS: DILTIAZEM HCL 30 MG TABLET GT SCH ×5 (00:46→23:22)
[2018-10-01] MEDS: IPRATROPIUM NEB FS 0.5 MG/2.5 ML AMPUL.NEB NEB SCH ×4 (01:35→20:08)
[2018-10-01] MEDS: ALBUTEROL FS 2.5 MG/3 ML VIAL.NEB NEB SCH ×4 (01:35→20:08)
[2018-10-01] MEDS: PANTOPRAZOLE 40 MG/PACK PACK GT SCH (05:40)
[2018-10-01 06:00] VITALS: BP 137/52
[2018-10-01 08:02] VITALS: BP 105/69
[2018-10-01] MEDS: VALSARTAN 80 MG TABLET GT SCH (09:00)
[2018-10-01] MEDS: ACETAMINOPHEN 650 MG/20 ML UDC- SA PATIENTS-PAIN ONLY GT SCH ×2 (09:15→20:57)
[2018-10-01] MEDS: DOCUSATE SODIUM LIQ 100 MG/10 ML UDC GT SCH ×2 (09:17→17:12)
[2018-10-01] MEDS: MULTIVIT W/MINERALS 1 TAB TABLET GT SCH (09:18)
[2018-10-01] MEDS: ACIDOPHILUS/BULGARICUS 1 EACH TAB.CHEW GT SCH ×2 (09:18→17:12)
[2018-10-01] MEDS: ZINC SULFATE 220 MG CAPSULE GT SCH (09:18)
[2018-10-01] MEDS: LEVETIRACETAM SOL (5 ML) 100 MG/ML UDC GT SCH ×2 (09:18→20:57)
[2018-10-01] MEDS: FERROUS SULFATE - FOR SA ONLY 330 MG/7.5 ML UDC GT SCH (09:18)
[2018-10-01] MEDS: ASCORBIC ACID 500 MG TABLET GT SCH (09:18)
[2018-10-01] MEDS: HYDROGEN PEROXIDE 480 ML BOTTLE TP SCH ×2 (10:00→21:37)
[2018-10-01] MEDS: ZINC OXIDE 30 GM TUBE TP SCH ×2 (10:00→21:38)
[2018-10-01] MEDS: CLOTRIMAZOLE 1% CREAM 24 GM TUBE TP SCH ×2 (10:00→21:37)
[2018-10-01] MEDS: Z GUARD REMEDY 2 OZ OINT TP SCH ×2 (10:00→21:37)
[2018-10-01] MEDS: THERAHONEY GEL 1.5 OZ TUBE TP SCH ×2 (10:00→21:37)
[2018-10-01 12:00] VITALS: BP 103/65
[2018-10-01 18:57] VITALS: BP 145/66
[2018-10-01 20:29] VITALS: BP 122/72
[2018-10-01] MEDS: ENOXAPARIN SODIUM 40 MG/0.4 ML DISP.SYRIN SQ SCH (20:57)
[2018-10-01] MEDS: ATORVASTATIN 10 MG TABLET GT SCH (21:38)
[2018-10-01] MEDS: INSULIN GLARGINE, 100 UNIT/ML CARTRIDGE SQ SCH (22:08)
[2018-10-02 00:41] VITALS: BP 122/66
[2018-10-02] MEDS: IPRATROPIUM NEB FS 0.5 MG/2.5 ML AMPUL.NEB NEB SCH ×4 (02:03→20:03)
[2018-10-02] MEDS: ALBUTEROL FS 2.5 MG/3 ML VIAL.NEB NEB SCH ×4 (02:03→20:03)
[2018-10-02] MEDS: BLOOD SUGAR DIAGNOSTIC 1 EACH STRIP IN SCH ×4 (06:02→23:30)
[2018-10-02] MEDS: DILTIAZEM HCL 30 MG TABLET GT SCH ×4 (06:02→23:30)
[2018-10-02] MEDS: PANTOPRAZOLE 40 MG/PACK PACK GT SCH (06:02)
[2018-10-02] MEDS: INSULIN ASPART/LISPRO 100 UNIT/ML CARTRIDGE SQ PRN ×4 (06:04→23:32)
[2018-10-02] MEDS: GLUCERNA 1.2 1,000 ML BOTTLE GT PRN (06:10)
[2018-10-02 06:23] VITALS: BP 128/60
[2018-10-02 06:31] LABS: BASOPHILS % (AUTO) 0.7 % (0.0-2.0); EOSINOPHILS % (AUTO) 3.7 % (0.0-6.0); HEMATOCRIT 34 % (33-45); HEMOGLOBIN 10.9 g/dL (11.5-14.8); LYMPHOCYTES # (AUTO) 2.5 /CMM (0.8-4.8); LYMPHOCYTES % (AUTO) 38.7 % (20.0-44.0); MEAN CORPUSCULAR HGB CONC 32 g/dl (31.0-36.0); MEAN CORPUSCULAR VOLUME 93 fL (82-100); MONOCYTES # (AUTO) 0.6 /CMM (0.1-1.30); MONOCYTES % (AUTO) 8.7 % (2.0-12.0); NEUTROPHILS # (AUTO) 3.1 /CMM (1.8-8.9); NEUTROPHILS % (AUTO) 48.2 % (43.0-81.0); PLATELET COUNT (AUTO) 344 /CMM (150-450); RED BLOOD CELL COUNT(AUTO) 3.67 MIL/uL (4.0-5.2); WHITE BLOOD COUNT (AUTO) 6.4 K/uL (4.3-11.0)
[2018-10-02 06:41] LABS: CALCIUM, SERUM 8.9 mg/dL (8.5-10.1); CREATININE 0.7 mg/dL (0.6-1.3); MAGNESIUM 2.3 mg/dL (1.8-2.4); PHOSPHORUS 3.3 mg/dL (2.5-4.9); POTASSIUM 4.8 mmol/L (3.5-5.1)
[2018-10-02 07:45] VITALS: BP 107/69
[2018-10-02] MEDS: CLOTRIMAZOLE 1% CREAM 24 GM TUBE TP SCH ×2 (09:00→21:53)
[2018-10-02] MEDS: ZINC OXIDE 30 GM TUBE TP SCH ×2 (09:00→21:53)
[2018-10-02] MEDS: THERAHONEY GEL 1.5 OZ TUBE TP SCH ×2 (09:00→21:53)
[2018-10-02] MEDS: LEVETIRACETAM SOL (5 ML) 100 MG/ML UDC GT SCH ×2 (09:20→21:13)
[2018-10-02] MEDS: VALSARTAN 80 MG TABLET GT SCH (09:20)
[2018-10-02] MEDS: FERROUS SULFATE - FOR SA ONLY 330 MG/7.5 ML UDC GT SCH (09:20)
[2018-10-02] MEDS: DOCUSATE SODIUM LIQ 100 MG/10 ML UDC GT SCH ×2 (09:20→16:19)
[2018-10-02] MEDS: Z GUARD REMEDY 2 OZ OINT TP SCH ×2 (09:21→21:53)
[2018-10-02] MEDS: HYDROGEN PEROXIDE 480 ML BOTTLE TP SCH ×2 (09:21→21:53)
[2018-10-02] MEDS: MULTIVIT W/MINERALS 1 TAB TABLET GT SCH (09:21)
[2018-10-02] MEDS: ACIDOPHILUS/BULGARICUS 1 EACH TAB.CHEW GT SCH ×2 (09:21→16:20)
[2018-10-02] MEDS: ACETAMINOPHEN 650 MG/20 ML UDC- SA PATIENTS-PAIN ONLY GT SCH ×2 (09:21→21:13)
[2018-10-02] MEDS: ZINC SULFATE 220 MG CAPSULE GT SCH (09:21)
[2018-10-02] MEDS: ASCORBIC ACID 500 MG TABLET GT SCH (09:21)
--- NOTE | 2018-10-02 09:30 | NUR ---
Seen and examined by Dr. Capone, toll bridge attendant. NNO given at this time.
[2018-10-02 12:00] VITALS: BP 128/75
--- NOTE | 2018-10-02 13:10 | NUR ---
Informed Dr. tipton that BMP, CBC, Mg and Phos level he ordered is available in [facility] for his review. He said he will take a look at it.
[2018-10-02 18:00] VITALS: BP 134/75
[2018-10-02] MEDS: ENOXAPARIN SODIUM 40 MG/0.4 ML DISP.SYRIN SQ SCH (21:14)
[2018-10-02] MEDS: ATORVASTATIN 10 MG TABLET GT SCH (21:14)
[2018-10-02] MEDS: INSULIN GLARGINE, 100 UNIT/ML CARTRIDGE SQ SCH (21:52)
[2018-10-03] VITALS (7 sets, daily range): BP systolic 118–160; BP diastolic 59–86
[2018-10-03] MEDS: IPRATROPIUM NEB FS 0.5 MG/2.5 ML AMPUL.NEB NEB SCH ×4 (02:28→19:37)
[2018-10-03] MEDS: ALBUTEROL FS 2.5 MG/3 ML VIAL.NEB NEB SCH ×4 (02:28→19:37)
[2018-10-03] MEDS: DILTIAZEM HCL 30 MG TABLET GT SCH ×4 (06:02→23:20)
[2018-10-03] MEDS: PANTOPRAZOLE 40 MG/PACK PACK GT SCH (06:02)
[2018-10-03] MEDS: BLOOD SUGAR DIAGNOSTIC 1 EACH STRIP IN SCH ×4 (06:05→23:20)
[2018-10-03] MEDS: INSULIN ASPART/LISPRO 100 UNIT/ML CARTRIDGE SQ PRN ×4 (06:06→23:21)
[2018-10-03] MEDS: ZINC SULFATE 220 MG CAPSULE GT SCH (09:00)
[2018-10-03] MEDS: VALSARTAN 80 MG TABLET GT SCH (09:00)
[2018-10-03] MEDS: HYDROGEN PEROXIDE 480 ML BOTTLE TP SCH ×2 (09:00→21:02)
[2018-10-03] MEDS: THERAHONEY GEL 1.5 OZ TUBE TP SCH ×2 (09:00→21:44)
[2018-10-03] MEDS: ACIDOPHILUS/BULGARICUS 1 EACH TAB.CHEW GT SCH ×2 (09:00→17:33)
[2018-10-03] MEDS: ZINC OXIDE 30 GM TUBE TP SCH ×2 (09:00→21:44)
[2018-10-03] MEDS: MULTIVIT W/MINERALS 1 TAB TABLET GT SCH (09:00)
[2018-10-03] MEDS: FERROUS SULFATE - FOR SA ONLY 330 MG/7.5 ML UDC GT SCH (09:00)
[2018-10-03] MEDS: ACETAMINOPHEN 650 MG/20 ML UDC- SA PATIENTS-PAIN ONLY GT SCH ×2 (09:00→21:01)
[2018-10-03] MEDS: CLOTRIMAZOLE 1% CREAM 24 GM TUBE TP SCH ×2 (09:00→21:02)
[2018-10-03] MEDS: Z GUARD REMEDY 2 OZ OINT TP SCH ×2 (09:00→21:02)
[2018-10-03] MEDS: LEVETIRACETAM SOL (5 ML) 100 MG/ML UDC GT SCH ×2 (09:00→21:01)
[2018-10-03] MEDS: ASCORBIC ACID 500 MG TABLET GT SCH (09:00)
[2018-10-03] MEDS: DOCUSATE SODIUM LIQ 100 MG/10 ML UDC GT SCH ×2 (09:00→17:33)
--- NOTE | 2018-10-03 15:03 | NUR ---
RT MONTHLY TRACH CHANGE DONE WITH NEW PORTEX 9. TRACH CHANGE DONE WITH NO COMPLICATIONS. EQUAL BILATERAL BREATHE SOUNDS AND CHEST RISE NOTED. PT PLACED BACK ON COOL AEROSOL. NO RESPIRATORY DISTRESS NOTED. Addendum: 10/03/18 at 1602 by FIGUEROA BHATIA RT Amended: Links added.
[2018-10-03] MEDS: ATORVASTATIN 10 MG TABLET GT SCH (21:02)
[2018-10-03] MEDS: ENOXAPARIN SODIUM 40 MG/0.4 ML DISP.SYRIN SQ SCH (21:02)
[2018-10-03] MEDS: INSULIN GLARGINE, 100 UNIT/ML CARTRIDGE SQ SCH (21:45)
[2018-10-03] MEDS: GLUCERNA 1.2 1,000 ML BOTTLE GT PRN (21:57)
[2018-10-04 00:16] VITALS: BP 126/66
[2018-10-04] MEDS: ALBUTEROL FS 2.5 MG/3 ML VIAL.NEB NEB SCH ×5 (01:11→19:19)
[2018-10-04] MEDS: IPRATROPIUM NEB FS 0.5 MG/2.5 ML AMPUL.NEB NEB SCH ×4 (01:11→19:19)
--- NOTE | 2018-10-04 01:19 | NUR ---
albuterol breathing tx not given due to HR > 120bpm. Atrovent given only. rn aware. Addendum: 10/04/18 at 0120 by MERON JARAMILLO RT Amended: Links added.
[2018-10-04] MEDS: ACETAMINOPHEN 650 MG/20 ML UDC- SA PATIENTS-PAIN ONLY GT PRN (01:21)
[2018-10-04] MEDS: DILTIAZEM HCL 30 MG TABLET GT SCH ×3 (06:00→17:39)
[2018-10-04] MEDS: BLOOD SUGAR DIAGNOSTIC 1 EACH STRIP IN SCH ×3 (06:01→17:33)
[2018-10-04] MEDS: PANTOPRAZOLE 40 MG/PACK PACK GT SCH (06:01)
[2018-10-04] MEDS: INSULIN ASPART/LISPRO 100 UNIT/ML CARTRIDGE SQ PRN ×3 (06:02→18:38)
[2018-10-04 06:16] VITALS: BP 130/64
--- NOTE | 2018-10-04 07:30 | NUR ---
Patient sweaty, low b/p 87/52, HR 106, temp 102, cooling measures provided. Patient not in distress at this time, has moderate amount of thick secretions, suctioned as needed.
--- NOTE | 2018-10-04 08:00 | NUR ---
Patients' temp rechecked 99.7, B/P 95/71, HR 102, Patient still sweaty. Called and notified FINISHING POWDER PRESS OPERATOR (ID) Lilibeth, she ordered blood culture x 2, urine c and s, portable chest x ray. [facility]yn 3.375 g q 8 hrs. Called and faxed to pharmacy, spoke to [facility] pharmacist Nani, aware of new orders. Per Nani she will call back and fax new orders.
[2018-10-04 08:12] VITALS: BP 88/49
--- NOTE | 2018-10-04 08:15 | NUR ---
Called and spoke to patients' daughter Kelly, made her aware that theres' a change of condition in her mom, made her aware that MD ordered to start IV ATBS', will insert midline if unable to do peripheral IV. OK with daughter.
[2018-10-04] MEDS: VALSARTAN 80 MG TABLET GT SCH (09:00)
[2018-10-04] MEDS: HYDROGEN PEROXIDE 480 ML BOTTLE TP SCH ×2 (09:00→21:03)
[2018-10-04 09:15] VITALS: BP 95/71
[2018-10-04] MEDS: ASCORBIC ACID 500 MG TABLET GT SCH (09:25)
[2018-10-04] MEDS: DOCUSATE SODIUM LIQ 100 MG/10 ML UDC GT SCH ×2 (09:25→17:33)
[2018-10-04] MEDS: MULTIVIT W/MINERALS 1 TAB TABLET GT SCH (09:25)
[2018-10-04] MEDS: FERROUS SULFATE - FOR SA ONLY 330 MG/7.5 ML UDC GT SCH (09:25)
[2018-10-04] MEDS: ACETAMINOPHEN 650 MG/20 ML UDC- SA PATIENTS-PAIN ONLY GT SCH ×2 (09:25→22:35)
[2018-10-04] MEDS: ACIDOPHILUS/BULGARICUS 1 EACH TAB.CHEW GT SCH ×2 (09:25→17:33)
[2018-10-04] MEDS: ZINC SULFATE 220 MG CAPSULE GT SCH (09:25)
[2018-10-04] MEDS: LEVETIRACETAM SOL (5 ML) 100 MG/ML UDC GT SCH ×2 (09:25→21:02)
[2018-10-04] MEDS: ZINC OXIDE 30 GM TUBE TP SCH ×2 (10:00→21:03)
[2018-10-04] MEDS: THERAHONEY GEL 1.5 OZ TUBE TP SCH ×2 (10:00→21:03)
[2018-10-04] MEDS: Z GUARD REMEDY 2 OZ OINT TP SCH ×2 (10:00→21:03)
[2018-10-04] MEDS: CLOTRIMAZOLE 1% CREAM 24 GM TUBE TP SCH ×2 (10:00→21:03)
--- NOTE | 2018-10-04 10:00 | NUR ---
Patient awake at this time, not sweaty at this time. No respiratory distress. HOB elevated for comfort measures. Solitario catheter patent and intact draining well at this time to yellow urine output, bench boring machine operator had episode of hematuria and a lot of sediments. Urine output is more clear at this time, less sediments. Has order to from Nera to do urine c and s, urine collected and sent to lab. Patient is a hard stick, 2 attempts of inserting peripheral IV, not successful. Notified Lilibeth, may insert midline. Called and made RN Security Compliance Specialist aware to call mid line nurse. Patient not in distress at this time, kept safe and comfortable.
[2018-10-04 12:00] VITALS: BP 117/51
[2018-10-04] MEDS: PIPERACILLIN /TAZOBACTAM 3.375 G in IV D5W 50 ML IV SCH ×2 (12:00→20:00)
[2018-10-04] MEDS: VANCOMYCIN 1 GM in IV D5W 250ml IV SCH (13:00)
--- NOTE | 2018-10-04 13:30 | NUR ---
IV Nurse came and inserted midline to right antecubital, gauge 18, patent and intact. Ok to use midline.
--- NOTE | 2018-10-04 14:00 | NUR ---
IVs started Vanco 1 g and zosyn, all ATBS covered by [employer]. No Adverse reactions noted. Patient closely monitored.
[2018-10-04 18:00] VITALS: BP 137/84
[2018-10-04] MEDS: ACETAMINOPHEN 650 MG/20 ML UDC- SA PATIENTS-FEVER ONLY GT PRN (18:35)
[2018-10-04] MEDS: ONDANSETRON 4 MG TAB.RAPDIS GT PRN (18:35)
[2018-10-04] MEDS: GLUCERNA 1.2 1,000 ML BOTTLE GT PRN (18:35)
--- NOTE | 2018-10-04 18:45 | NUR ---
After PSYCHOTHERAPIST SOCIAL WORKER cleaned patient, had BM, Patient vomited. Lilibeth came, aware of chest x ray result, with new order to do KUB josé miguel in am and change gaines catheter. Noted and carried out.
--- NOTE | 2018-10-04 19:30 | NUR ---
Seen and examined by Kennedi Bender with new order to start IV hydration 0.9 NS 70ml/hr x 48 hrs.Temp 102.9 Tylenol given @ 1845 and cooling measures provided.Will continue to monitor.
--- NOTE | 2018-10-04 20:18 | NUR ---
Pt daughter Kelly made aware of new orders for IV hydration and KUB in AM.told her still having fever and chest x ray shows infiltrate.Daughter said she want to be here when they do the KUB ,told her they might do the x ray all round butcher and they might not wait for her.She said passed her message.Appreciative of the call.
[2018-10-04] MEDS: ATORVASTATIN 10 MG TABLET GT SCH (21:03)
[2018-10-04] MEDS: ENOXAPARIN SODIUM 40 MG/0.4 ML DISP.SYRIN SQ SCH (21:03)
[2018-10-04] MEDS: INSULIN GLARGINE, 100 UNIT/ML CARTRIDGE SQ SCH (21:04)
[2018-10-04] MEDS: IV NS 0.9% 1,000 ML IV SCH (21:08)
[2018-10-05] VITALS (7 sets, daily range): BP systolic 90–133; BP diastolic 62–70
[2018-10-05] MEDS: BLOOD SUGAR DIAGNOSTIC 1 EACH STRIP IN SCH ×4 (00:25→17:25)
[2018-10-05] MEDS: DILTIAZEM HCL 30 MG TABLET GT SCH ×4 (00:25→17:25)
[2018-10-05] MEDS: INSULIN ASPART/LISPRO 100 UNIT/ML CARTRIDGE SQ PRN ×4 (00:26→17:26)
[2018-10-05] MEDS: IPRATROPIUM NEB FS 0.5 MG/2.5 ML AMPUL.NEB NEB SCH ×4 (00:48→18:56)
[2018-10-05] MEDS: ALBUTEROL FS 2.5 MG/3 ML VIAL.NEB NEB SCH ×4 (00:48→18:56)
[2018-10-05] MEDS: VANCOMYCIN 1 GM in IV D5W 250ml IV SCH ×2 (01:00→13:00)
[2018-10-05] MEDS: PIPERACILLIN /TAZOBACTAM 3.375 G in IV D5W 50 ML IV SCH ×3 (04:10→20:10)
[2018-10-05] MEDS: ACETAMINOPHEN 650 MG/20 ML UDC- SA PATIENTS-FEVER ONLY GT PRN ×2 (04:22→17:00)
--- NOTE | 2018-10-05 05:57 | NUR ---
Pt gaines catheter replaced as ordered by Lilibeth ATKINS.Urine noted with sediments,dark yellow in color.Vancomycin and Zosyn IV given IV no adverse reaction.Still with increased temp 103,Tylenol given via Gt and cooling measures provided.No respiratory distress noted.Will continue to monitor.
[2018-10-05] MEDS: PANTOPRAZOLE 40 MG/PACK PACK GT SCH (06:02)
[2018-10-05] MEDS: ZINC SULFATE 220 MG CAPSULE GT SCH (09:00)
[2018-10-05] MEDS: VALSARTAN 80 MG TABLET GT SCH (09:00)
[2018-10-05] MEDS: ASCORBIC ACID 500 MG TABLET GT SCH (09:00)
[2018-10-05] MEDS: ZINC OXIDE 30 GM TUBE TP SCH ×2 (09:00→20:54)
[2018-10-05] MEDS: THERAHONEY GEL 1.5 OZ TUBE TP SCH ×2 (09:00→20:54)
[2018-10-05] MEDS: Z GUARD REMEDY 2 OZ OINT TP SCH ×2 (09:00→20:54)
[2018-10-05] MEDS: ACIDOPHILUS/BULGARICUS 1 EACH TAB.CHEW GT SCH ×2 (09:00→17:24)
[2018-10-05] MEDS: FERROUS SULFATE - FOR SA ONLY 330 MG/7.5 ML UDC GT SCH (09:00)
[2018-10-05] MEDS: ACETAMINOPHEN 650 MG/20 ML UDC- SA PATIENTS-PAIN ONLY GT SCH ×2 (09:00→20:56)
[2018-10-05] MEDS: CLOTRIMAZOLE 1% CREAM 24 GM TUBE TP SCH ×2 (09:00→20:54)
[2018-10-05] MEDS: DOCUSATE SODIUM LIQ 100 MG/10 ML UDC GT SCH ×2 (09:00→17:24)
[2018-10-05] MEDS: LEVETIRACETAM SOL (5 ML) 100 MG/ML UDC GT SCH ×2 (09:00→20:55)
[2018-10-05] MEDS: MULTIVIT W/MINERALS 1 TAB TABLET GT SCH (09:00)
--- NOTE | 2018-10-05 09:20 | NUR ---
COMMUTATOR V RING ASSEMBLER Lilibeth Franklin notified that patient has temperature 103.1 despite patient currently on ATB. Patient's F/C draining well, but with sediments. no diarrhea. Will continue to monitor, RTC Tylenol and cooling measures. COMMUTATOR V RING ASSEMBLER also gave an order to irrigate F/C with 60 ml NS PRN for sediment. Orders carried out. KUB done but result pending.
[2018-10-05] MEDS: IV NS 0.9% 1,000 ML IV SCH (12:05)
[2018-10-05] MEDS: GLUCERNA 1.2 1,000 ML BOTTLE GT PRN (12:43)
[2018-10-05] MEDS: HYDROGEN PEROXIDE 480 ML BOTTLE TP SCH ×2 (14:12→20:54)
--- NOTE | 2018-10-05 15:00 | NUR ---
Resident's daughter, Kelly at bedside updated her of patient's condition.
--- NOTE | 2018-10-05 17:24 | NUR ---
RT NOTE: RECEIVED PT ON 28% COOL AEROSOL. NO RESPIRATORY DISTRESS NOTED. TRACH CHECKED SECURE AND PATENT. SXD AND LAVAGED PT Q ROUND AND NEEDED. TXS GIVEN ORDERED WITH NO ADVERSE REACTIONS NOTED. TRACH CARE DONE. ABELARDO WAHL AND RAFFI GAINES @ BEDSIDE. Addendum: 10/05/18 at 1724 by ELIJAH DHALIWAL RT Amended: Links added.
[2018-10-05] MEDS: HYDROCODONE/APAP 5/325MG 1 EACH TABLET GT PRN (17:28)
--- NOTE | 2018-10-05 17:45 | NUR ---
Notified Dr. Capone, resident with slight work of breathing, RR 22, HR 125, O2 sat 100% at Fio2 28%, T 103.1 lung sound diminished. New order given for ABG. Notified MILLY Franklin of preliminary urine culture result showing gram negative rods and patient still having fever. MILLY Franklin said she will see patient later today. Continue cooling measure and Tylenol given for her temperature.
[2018-10-05 18:01] LABS: ABG BASE EXCESS -1.8 mmol/L; ABG PCO2 37.3 mmHg (35.0-45.0); ABG PH 7.401 (7.350-7.450); ABG PO2 71.3 mmHg (75.0-100.0); AaDO2 84.3 mmHg; COHb 0.3 % (0.5-1.5); MetHb 0.6 % (0.0-1.5); O2Hb 93.2 % (94.0-97.0); SITE, ABG Left Radial; VENT MODE, BG 28% Cool Aerosol T-tube
--- NOTE | 2018-10-05 18:22 | NUR ---
RT NOTE: PT RUNNING A TEMPERATURE AND MILD SOB WAS NOTED @ 1730. PER MD PELEG ABG ORDERED. ABG DONE AND VALUES WERE WNL WITH NO CRITICAL VALUES NOTED. RESULTS DOCUMENTED AND GIVEN TO CHARGE NURSE. PT REASSESSED @ 1800 AND WOB WENT DOWN. NO ACUTE DISTRESS NOTED @ THAT TIME WITH A HR 0F 108 AND SAT 98% ON 28% C/A. PER NEW MD ORDER PELEG ONLY IF PT GOES INTO DISTRESS OR WOB INCREASES PLACED PT ON VENT SETTINGS AC RR 10 VT 500 PEEP +5 @ 50% FIO2. NO ACUTE DISTRESS NOTED @ THIS TIME. RN AWARE/RT LEAD AWARE.
--- NOTE | 2018-10-05 18:28 | NUR ---
Notified Dr. Capone of ABG result, with new order to place patient on ventilator with the following setting of AC 12, TV 500, Peep 5, Fi02 50% PRN distress. RT informed. Resident's daughter Kelly made aware of new order that ventilator will only be used on as needed basis when patient is on distress. Though she was not clear how the patient is breathing, after a thorough explanation, she verbalized understanding. Appreciated the call.
[2018-10-05] MEDS: ATORVASTATIN 10 MG TABLET GT SCH (21:06)
[2018-10-05] MEDS: INSULIN GLARGINE, 100 UNIT/ML CARTRIDGE SQ SCH (21:12)
[2018-10-05] MEDS: ENOXAPARIN SODIUM 40 MG/0.4 ML DISP.SYRIN SQ SCH (21:13)
[2018-10-05] MEDS: ALBUTEROL FS 2.5 MG/3 ML VIAL.NEB NEB PRN (21:46)
[2018-10-05] MEDS: IPRATROPIUM NEB FS 0.5 MG/2.5 ML AMPUL.NEB NEB PRN (21:46)
--- NOTE | 2018-10-05 23:15 | NUR ---
Noted pt with WOB,notified RT.Placed patient on mechanical ventilator per prescribed settings ordered from Dr. Capone earlier if pt in distress place on vent PRN.will continue to monitor.
--- NOTE | 2018-10-05 23:33 | NUR ---
Pt showed signs of distress and increase WOB, pt placed on ventilator support ordered by DR CARREON, AC 12, VT 500, +5, 40% FIO2, relief charge nurse at bedside and aware.
[2018-10-06] VITALS: BP 94/50
[2018-10-06] MEDS: BLOOD SUGAR DIAGNOSTIC 1 EACH STRIP IN SCH ×4 (00:13→18:07)
[2018-10-06] MEDS: INSULIN ASPART/LISPRO 100 UNIT/ML CARTRIDGE SQ PRN ×4 (00:14→18:08)
--- NOTE | 2018-10-06 00:15 | NUR ---
Pt calm and asleep at this time.Ventilator tolerated well.Will continue to monitor.
[2018-10-06] MEDS: ALBUTEROL FS 2.5 MG/3 ML VIAL.NEB NEB SCH ×4 (00:30→20:10)
[2018-10-06] MEDS: IPRATROPIUM NEB FS 0.5 MG/2.5 ML AMPUL.NEB NEB SCH ×4 (00:30→20:10)
[2018-10-06] MEDS: IV NS 0.9% 1,000 ML IV SCH ×2 (03:30→17:40)
[2018-10-06] MEDS: PIPERACILLIN /TAZOBACTAM 3.375 G in IV D5W 50 ML IV SCH ×2 (03:35→11:33)
[2018-10-06 06:00] VITALS: BP 93/54
[2018-10-06] MEDS: DILTIAZEM HCL 30 MG TABLET GT SCH ×5 (06:00→23:56)
[2018-10-06] MEDS: PANTOPRAZOLE 40 MG/PACK PACK GT SCH (06:13)
--- NOTE | 2018-10-06 06:23 | NUR ---
Pt stable no distress noted.Looks comfortable after placing pt on the ventilator.IV antibiotic given as ordered and still on IV hydration.
[2018-10-06 07:55] VITALS: BP 94/63
[2018-10-06] MEDS: HYDROGEN PEROXIDE 480 ML BOTTLE TP SCH ×2 (07:57→21:53)
[2018-10-06] MEDS: VALSARTAN 80 MG TABLET GT SCH (09:00)
[2018-10-06] MEDS: ACETAMINOPHEN 650 MG/20 ML UDC- SA PATIENTS-PAIN ONLY GT SCH ×2 (09:08→21:29)
[2018-10-06] MEDS: LEVETIRACETAM SOL (5 ML) 100 MG/ML UDC GT SCH ×2 (09:08→21:28)
[2018-10-06] MEDS: FERROUS SULFATE - FOR SA ONLY 330 MG/7.5 ML UDC GT SCH (09:08)
[2018-10-06] MEDS: ACIDOPHILUS/BULGARICUS 1 EACH TAB.CHEW GT SCH ×2 (09:08→17:22)
[2018-10-06] MEDS: ZINC SULFATE 220 MG CAPSULE GT SCH (09:08)
[2018-10-06] MEDS: ASCORBIC ACID 500 MG TABLET GT SCH (09:08)
[2018-10-06] MEDS: DOCUSATE SODIUM LIQ 100 MG/10 ML UDC GT SCH ×2 (09:08→17:22)
[2018-10-06] MEDS: MULTIVIT W/MINERALS 1 TAB TABLET GT SCH (09:08)
--- NOTE | 2018-10-06 10:00 | NUR ---
Dr Capone saw pt this morning and he ordered CXR. Addendum: 10/06/18 at 1818 by JASKARAN FITZGERALD RN Dr Capone ordered CXR for 10/08/18.
[2018-10-06] MEDS: THERAHONEY GEL 1.5 OZ TUBE TP SCH ×2 (10:30→21:53)
[2018-10-06] MEDS: ZINC OXIDE 30 GM TUBE TP SCH ×2 (10:30→21:53)
[2018-10-06] MEDS: Z GUARD REMEDY 2 OZ OINT TP SCH ×2 (10:30→21:53)
[2018-10-06] MEDS: CLOTRIMAZOLE 1% CREAM 24 GM TUBE TP SCH ×2 (10:30→21:53)
[2018-10-06 12:00] VITALS: BP 105/64
--- NOTE | 2018-10-06 16:12 | NUR ---
RT NOTE: RECEIVED PT ON NOTED ORDERED VENT SETTINGS. NO RESPIRATORY DISTRESS NOTED. TRACH CHECKED SECURE AND PATENT. SXD AND LAVAGED PT Q ROUND AND NEEDED. TXS GIVEN ORDERED WITH NO ADVERSE REACTIONS NOTED. TRACH CARE DONE. SPARE TRACH AND AMBU BAG @ BEDSIDE. ALARMS CHECKED ON AND AUDIBLE.
--- NOTE | 2018-10-06 17:32 | NUR ---
Notified MILLY Mcelroy that pt had a temp of 102.9 F today, pt's temp 99 F at this time. She said to wait for urine culture result. Relayed urine culture result to her.
--- NOTE | 2018-10-06 18:13 | NUR ---
MILLY Mcelroy ordered to DC Zosyn and give Levaquin 500 mg GT daily x 7 days for UTI. Notified daughter.
[2018-10-06] MEDS: LEVOFLOXACIN (500MG) 500 MG TABLET GT SCH (18:58)
[2018-10-06 18:59] VITALS: BP 138/78
[2018-10-06 20:28] VITALS: BP 136/69
[2018-10-06] MEDS: ATORVASTATIN 10 MG TABLET GT SCH (21:29)
[2018-10-06] MEDS: ENOXAPARIN SODIUM 40 MG/0.4 ML DISP.SYRIN SQ SCH (21:29)
[2018-10-06] MEDS: INSULIN GLARGINE, 100 UNIT/ML CARTRIDGE SQ SCH (22:27)
[2018-10-07 00:01] VITALS: BP 106/69
[2018-10-07] MEDS: BLOOD SUGAR DIAGNOSTIC 1 EACH STRIP IN SCH ×4 (00:25→18:06)
[2018-10-07] MEDS: INSULIN ASPART/LISPRO 100 UNIT/ML CARTRIDGE SQ PRN ×4 (00:27→18:09)
[2018-10-07] MEDS: ALBUTEROL FS 2.5 MG/3 ML VIAL.NEB NEB SCH ×4 (01:55→19:31)
[2018-10-07] MEDS: IPRATROPIUM NEB FS 0.5 MG/2.5 ML AMPUL.NEB NEB SCH ×4 (01:55→19:31)
[2018-10-07 06:14] VITALS: BP 138/80
[2018-10-07] MEDS: GLUCERNA 1.2 1,000 ML BOTTLE GT PRN ×2 (06:16→21:46)
[2018-10-07] MEDS: PANTOPRAZOLE 40 MG/PACK PACK GT SCH (06:16)
[2018-10-07] MEDS: DILTIAZEM HCL 30 MG TABLET GT SCH ×3 (06:16→17:42)
--- NOTE | 2018-10-07 06:37 | NUR ---
100.2 temp noted. cooling measures rendered. pt calm. no s/s of distress. charge nurse aware. will endorse to oncoming shift to monitor.
[2018-10-07 07:50] VITALS: BP 114/66
[2018-10-07] MEDS: DOCUSATE SODIUM LIQ 100 MG/10 ML UDC GT SCH ×2 (09:00→17:41)
[2018-10-07] MEDS: ACETAMINOPHEN 650 MG/20 ML UDC- SA PATIENTS-PAIN ONLY GT SCH ×2 (09:00→21:21)
[2018-10-07] MEDS: MULTIVIT W/MINERALS 1 TAB TABLET GT SCH (09:00)
[2018-10-07] MEDS: HYDROGEN PEROXIDE 480 ML BOTTLE TP SCH ×2 (09:00→21:22)
[2018-10-07] MEDS: FERROUS SULFATE - FOR SA ONLY 330 MG/7.5 ML UDC GT SCH (09:00)
[2018-10-07] MEDS: ZINC SULFATE 220 MG CAPSULE GT SCH (09:00)
[2018-10-07] MEDS: Z GUARD REMEDY 2 OZ OINT TP SCH ×2 (09:00→21:22)
[2018-10-07] MEDS: VALSARTAN 80 MG TABLET GT SCH (09:00)
[2018-10-07] MEDS: LEVETIRACETAM SOL (5 ML) 100 MG/ML UDC GT SCH ×2 (09:00→21:21)
[2018-10-07] MEDS: THERAHONEY GEL 1.5 OZ TUBE TP SCH ×2 (09:00→21:22)
[2018-10-07] MEDS: ZINC OXIDE 30 GM TUBE TP SCH ×2 (09:00→21:22)
[2018-10-07] MEDS: ACIDOPHILUS/BULGARICUS 1 EACH TAB.CHEW GT SCH ×2 (09:00→17:41)
[2018-10-07] MEDS: ASCORBIC ACID 500 MG TABLET GT SCH (09:00)
[2018-10-07] MEDS: CLOTRIMAZOLE 1% CREAM 24 GM TUBE TP SCH ×2 (09:00→21:22)
--- NOTE | 2018-10-07 12:32 | NUR ---
RT NOTE RECEIVED PT MECHANICALLY VENTILATED VIA CUFFED TRACHEOSTOMY TUBE. CUFF INFLATED. TRACH TUBE MIDLINE AND SECURE. VENTILATOR SETTINGS PRESCRIBED. ALARMS SET PER PROTOCOL AND AUDIBLE. VENT PLUGGED IN TO RED OUTLET. AMBU BAG AND BACK UP TRACH AT BED SIDE. NO DISTRESS NOTED. Addendum: 10/07/18 at 1232 by PALLAVI BARRETT RT Amended: Links added.
[2018-10-07 16:51] VITALS: BP 116/75
[2018-10-07] MEDS: LEVOFLOXACIN (500MG) 500 MG TABLET GT SCH (17:42)
[2018-10-07 19:05] VITALS: BP 122/73
[2018-10-07 20:04] VITALS: BP 126/68
[2018-10-07] MEDS: ENOXAPARIN SODIUM 40 MG/0.4 ML DISP.SYRIN SQ SCH (21:22)
[2018-10-07] MEDS: ATORVASTATIN 10 MG TABLET GT SCH (21:23)
[2018-10-07] MEDS: INSULIN GLARGINE, 100 UNIT/ML CARTRIDGE SQ SCH (21:56)
[2018-10-08 01:04] VITALS: BP 134/79
[2018-10-08] MEDS: INSULIN ASPART/LISPRO 100 UNIT/ML CARTRIDGE SQ PRN ×5 (01:11→23:22)
[2018-10-08] MEDS: IPRATROPIUM NEB FS 0.5 MG/2.5 ML AMPUL.NEB NEB SCH ×4 (01:23→19:46)
[2018-10-08] MEDS: ALBUTEROL FS 2.5 MG/3 ML VIAL.NEB NEB SCH ×4 (01:23→19:46)
[2018-10-08] MEDS: DILTIAZEM HCL 30 MG TABLET GT SCH ×4 (05:11→18:13)
[2018-10-08] MEDS: BLOOD SUGAR DIAGNOSTIC 1 EACH STRIP IN SCH ×5 (05:12→23:20)
[2018-10-08] MEDS: PANTOPRAZOLE 40 MG/PACK PACK GT SCH (05:12)
[2018-10-08 06:45] VITALS: BP 122/75
[2018-10-08 07:54] VITALS: BP 161/73
[2018-10-08] MEDS: THERAHONEY GEL 1.5 OZ TUBE TP SCH ×2 (09:00→21:00)
[2018-10-08] MEDS: ZINC OXIDE 30 GM TUBE TP SCH ×2 (09:00→21:00)
[2018-10-08] MEDS: CLOTRIMAZOLE 1% CREAM 24 GM TUBE TP SCH ×2 (09:00→21:00)
[2018-10-08] MEDS: HYDROGEN PEROXIDE 480 ML BOTTLE TP SCH ×2 (09:00→21:00)
[2018-10-08] MEDS: Z GUARD REMEDY 2 OZ OINT TP SCH ×2 (09:00→21:00)
[2018-10-08] MEDS: DOCUSATE SODIUM LIQ 100 MG/10 ML UDC GT SCH ×2 (09:56→17:11)
[2018-10-08] MEDS: VALSARTAN 80 MG TABLET GT SCH (09:57)
[2018-10-08] MEDS: ACETAMINOPHEN 650 MG/20 ML UDC- SA PATIENTS-PAIN ONLY GT SCH ×2 (09:57→21:00)
[2018-10-08] MEDS: FERROUS SULFATE - FOR SA ONLY 330 MG/7.5 ML UDC GT SCH (09:57)
[2018-10-08] MEDS: ACIDOPHILUS/BULGARICUS 1 EACH TAB.CHEW GT SCH ×2 (09:57→17:11)
[2018-10-08] MEDS: MULTIVIT W/MINERALS 1 TAB TABLET GT SCH (09:57)
[2018-10-08] MEDS: LEVETIRACETAM SOL (5 ML) 100 MG/ML UDC GT SCH ×2 (09:57→21:00)
[2018-10-08] MEDS: ZINC SULFATE 220 MG CAPSULE GT SCH (09:58)
[2018-10-08] MEDS: ASCORBIC ACID 500 MG TABLET GT SCH (09:58)
--- NOTE | 2018-10-08 11:00 | NUR ---
Pt's midline was found out. Catheter tip intact. No bleeding noted. Notified Dr Pineda.
--- NOTE | 2018-10-08 13:00 | NUR ---
Seen by MILLY Bender. Relayed CXR result to her. She said she will have Dr Capone see the image. No new order.
[2018-10-08 15:53] VITALS: BP 126/66
[2018-10-08] MEDS: GLUCERNA 1.2 1,000 ML BOTTLE GT PRN (16:25)
[2018-10-08 18:09] VITALS: BP 133/76
[2018-10-08] MEDS: LEVOFLOXACIN (500MG) 500 MG TABLET GT SCH (18:13)
[2018-10-08 19:50] VITALS: BP 134/74
[2018-10-08] MEDS: ENOXAPARIN SODIUM 40 MG/0.4 ML DISP.SYRIN SQ SCH (21:00)
[2018-10-08] MEDS: INSULIN GLARGINE, 100 UNIT/ML CARTRIDGE SQ SCH (22:00)
[2018-10-08] MEDS: ATORVASTATIN 10 MG TABLET GT SCH (22:32)
[2018-10-09] VITALS: BP 131/73
[2018-10-09] MEDS: ALBUTEROL FS 2.5 MG/3 ML VIAL.NEB NEB SCH ×3 (02:15→20:32)
[2018-10-09] MEDS: IPRATROPIUM NEB FS 0.5 MG/2.5 ML AMPUL.NEB NEB SCH ×3 (02:15→20:32)
[2018-10-09 06:00] VITALS: BP 149/83
[2018-10-09] MEDS: PANTOPRAZOLE 40 MG/PACK PACK GT SCH (06:46)
[2018-10-09] MEDS: BLOOD SUGAR DIAGNOSTIC 1 EACH STRIP IN SCH ×3 (06:46→17:51)
[2018-10-09] MEDS: DILTIAZEM HCL 30 MG TABLET GT SCH ×4 (06:46→17:51)
[2018-10-09] MEDS: INSULIN ASPART/LISPRO 100 UNIT/ML CARTRIDGE SQ PRN ×3 (06:54→17:55)
[2018-10-09 07:18] LABS: BASOPHILS % (AUTO) 0.5 % (0.0-2.0); EOSINOPHILS % (AUTO) 0.9 % (0.0-6.0); HEMATOCRIT 27 % (33-45); HEMOGLOBIN 8.7 g/dL (11.5-14.8); LYMPHOCYTES % (AUTO) 23.7 % (20.0-44.0); MEAN CORPUSCULAR HGB CONC 32 g/dl (31.0-36.0); MEAN CORPUSCULAR VOLUME 90 fL (82-100); MONOCYTES # (AUTO) 0.9 /CMM (0.1-1.30); MONOCYTES % (AUTO) 10.5 % (2.0-12.0); NEUTROPHILS # (AUTO) 5.5 /CMM (1.8-8.9); NEUTROPHILS % (AUTO) 64.4 % (43.0-81.0); PLATELET COUNT (AUTO) 319 /CMM (150-450); WHITE BLOOD COUNT (AUTO) 8.6 K/uL (4.3-11.0)
[2018-10-09 07:22] VITALS: BP 133/70
[2018-10-09 07:37] LABS: ALBUMIN 1.6 g/dL (3.4-5.0); BILIRUBIN,TOTAL 0.1 mg/dL (0.2-1.0); CALCIUM, SERUM 8.4 mg/dL (8.5-10.1); CREATININE 1.2 mg/dL (0.6-1.3); MAGNESIUM 2.4 mg/dL (1.8-2.4); POTASSIUM 5.1 mmol/L (3.5-5.1); TOTAL PROTEIN, SERUM 7.4 g/dL (6.4-8.2)
[2018-10-09] MEDS: ZINC SULFATE 220 MG CAPSULE GT SCH (09:00)
[2018-10-09] MEDS: HYDROGEN PEROXIDE 480 ML BOTTLE TP SCH ×2 (09:00→20:32)
[2018-10-09] MEDS: DOCUSATE SODIUM LIQ 100 MG/10 ML UDC GT SCH ×2 (09:00→17:51)
[2018-10-09] MEDS: ACIDOPHILUS/BULGARICUS 1 EACH TAB.CHEW GT SCH ×2 (09:00→17:51)
[2018-10-09] MEDS: ACETAMINOPHEN 650 MG/20 ML UDC- SA PATIENTS-PAIN ONLY GT SCH ×3 (09:00→20:47)
[2018-10-09] MEDS: FERROUS SULFATE - FOR SA ONLY 330 MG/7.5 ML UDC GT SCH (09:00)
[2018-10-09] MEDS: THERAHONEY GEL 1.5 OZ TUBE TP SCH ×2 (09:00→20:49)
[2018-10-09] MEDS: ASCORBIC ACID 500 MG TABLET GT SCH (09:00)
[2018-10-09] MEDS: CLOTRIMAZOLE 1% CREAM 24 GM TUBE TP SCH ×2 (09:00→20:49)
[2018-10-09] MEDS: VALSARTAN 80 MG TABLET GT SCH (09:00)
[2018-10-09] MEDS: LEVETIRACETAM SOL (5 ML) 100 MG/ML UDC GT SCH ×2 (09:00→20:47)
[2018-10-09] MEDS: ZINC OXIDE 30 GM TUBE TP SCH ×2 (09:00→20:49)
[2018-10-09] MEDS: MULTIVIT W/MINERALS 1 TAB TABLET GT SCH (09:00)
[2018-10-09] MEDS: Z GUARD REMEDY 2 OZ OINT TP SCH ×2 (09:00→20:49)
[2018-10-09] MEDS ORDERED: NEUTRA PHOS 1 POWD.PACKET GT ONE (13:00)
[2018-10-09] MEDS: LEVOFLOXACIN (500MG) 500 MG TABLET GT SCH (17:51)
[2018-10-09 18:09] VITALS: BP 102/54
--- NOTE | 2018-10-09 18:38 | NUR ---
Seen by Dr Capone today. He ordered to place pt on CPAP PSV 15 PEEP +5 tomorrow, ABG 1 hour post vent change. Notified Kelly. Addendum: 10/09/18 at 1842 by JASKARAN FITZGERALD RN Kelly said she does not want anything to be done to her mother without letting her know first and without her being around. She said she will come tomorrow morning for the weaning trial.
[2018-10-09] MEDS: ENOXAPARIN SODIUM 40 MG/0.4 ML DISP.SYRIN SQ SCH (20:49)
[2018-10-09 20:50] VITALS: BP 134/75
[2018-10-09] MEDS: ATORVASTATIN 10 MG TABLET GT SCH (21:27)
[2018-10-09] MEDS: INSULIN GLARGINE, 100 UNIT/ML CARTRIDGE SQ SCH (21:27)
[2018-10-10] VITALS: BP 146/81
[2018-10-10] MEDS: DILTIAZEM HCL 30 MG TABLET GT SCH ×4 (00:47→17:53)
[2018-10-10] MEDS: BLOOD SUGAR DIAGNOSTIC 1 EACH STRIP IN SCH ×4 (00:48→17:53)
[2018-10-10] MEDS: INSULIN ASPART/LISPRO 100 UNIT/ML CARTRIDGE SQ PRN ×4 (00:49→18:22)
[2018-10-10] MEDS: ALBUTEROL FS 2.5 MG/3 ML VIAL.NEB NEB SCH ×4 (02:41→19:30)
[2018-10-10] MEDS: IPRATROPIUM NEB FS 0.5 MG/2.5 ML AMPUL.NEB NEB SCH ×4 (02:41→19:30)
[2018-10-10] MEDS: GLUCERNA 1.2 1,000 ML BOTTLE GT PRN ×2 (03:58→22:24)
[2018-10-10] MEDS: PANTOPRAZOLE 40 MG/PACK PACK GT SCH (05:55)
[2018-10-10 06:32] VITALS: BP 142/76
[2018-10-10 07:54] VITALS: BP 149/78
[2018-10-10] MEDS: Z GUARD REMEDY 2 OZ OINT TP SCH ×2 (09:00→20:46)
[2018-10-10] MEDS: HYDROGEN PEROXIDE 480 ML BOTTLE TP SCH ×2 (09:00→20:43)
[2018-10-10] MEDS: VALSARTAN 80 MG TABLET GT SCH (09:00)
[2018-10-10] MEDS: ACETAMINOPHEN 650 MG/20 ML UDC- SA PATIENTS-PAIN ONLY GT SCH ×2 (09:00→20:45)
[2018-10-10] MEDS: THERAHONEY GEL 1.5 OZ TUBE TP SCH ×2 (09:00→20:46)
[2018-10-10] MEDS: MULTIVIT W/MINERALS 1 TAB TABLET GT SCH (09:00)
[2018-10-10] MEDS: ACIDOPHILUS/BULGARICUS 1 EACH TAB.CHEW GT SCH ×2 (09:00→17:45)
[2018-10-10] MEDS: ZINC OXIDE 30 GM TUBE TP SCH ×2 (09:00→20:46)
[2018-10-10] MEDS: ZINC SULFATE 220 MG CAPSULE GT SCH (09:00)
[2018-10-10] MEDS: FERROUS SULFATE - FOR SA ONLY 330 MG/7.5 ML UDC GT SCH (09:00)
[2018-10-10] MEDS: ASCORBIC ACID 500 MG TABLET GT SCH (09:00)
[2018-10-10] MEDS: DOCUSATE SODIUM LIQ 100 MG/10 ML UDC GT SCH ×2 (09:00→17:45)
[2018-10-10] MEDS: CLOTRIMAZOLE 1% CREAM 24 GM TUBE TP SCH ×2 (09:00→20:46)
[2018-10-10] MEDS: LEVETIRACETAM SOL (5 ML) 100 MG/ML UDC GT SCH ×2 (09:00→20:44)
--- NOTE | 2018-10-10 09:02 | NUR ---
pt placed on CPAP mode @ 0850 per MD orders. no respiartoy distress or sob noted. alarms are set and audible. vent plugged into red outlet. ambu bag bedside. abg to be taken within 1 hr. will continue to monitor closesly. RN aware. Addendum: 10/10/18 at 0905 by MERON JARAMILLO RT Amended: Links added.
--- NOTE | 2018-10-10 10:05 | NUR ---
LATE ENTRY/RT NOTE ABG RESULTS TAKEN AND GIVEN TO DR CARREON. PT TO BE KEPT ON CPAP MODE TOLERATED PER DR CARREON. PATHOLOGY SECRETARY AWARE. WILL CONTINUE TO MONITOR CLOSELY.
[2018-10-10 10:06] LABS: ABG BASE EXCESS 1.8 mmol/L; ABG OXYGEN SATURATION 98.4 % (92.0-98.5); ABG PH 7.459 (7.350-7.450); ABG PO2 130.3 mmHg (75.0-100.0); AaDO2 112.4 mmHg; MetHb 0.7 % (0.0-1.5); O2Hb 97.7 % (94.0-97.0); SITE, ABG Left Radial
[2018-10-10 12:00] VITALS: BP 154/75
[2018-10-10] MEDS: LEVOFLOXACIN (500MG) 500 MG TABLET GT SCH (17:53)
[2018-10-10 18:00] VITALS: BP 148/79
--- NOTE | 2018-10-10 18:00 | NUR ---
Informed [place], resident's daughter that patient tolerated weaning trial today and will start cool aerosol in AM. According to patient's daughter, someone called her this morning informing her that patient will be weaned off from ventilator and she does not understand what it means. She thinks she needs to come to the facility to see the patient. Explained to Kelly in layman's term the process of weaning. Advised to ask the nurses to explain in terms she can understand. After lengthy explanation, she verbalized understanding.
[2018-10-10 20:42] VITALS: BP 141/77
[2018-10-10] MEDS: ENOXAPARIN SODIUM 40 MG/0.4 ML DISP.SYRIN SQ SCH (20:46)
[2018-10-10] MEDS: ATORVASTATIN 10 MG TABLET GT SCH (22:01)
[2018-10-10] MEDS: INSULIN GLARGINE, 100 UNIT/ML CARTRIDGE SQ SCH (22:02)
[2018-10-11 00:32] VITALS: BP 144/86
[2018-10-11] MEDS: DILTIAZEM HCL 30 MG TABLET GT SCH ×4 (00:35→18:11)
[2018-10-11] MEDS: BLOOD SUGAR DIAGNOSTIC 1 EACH STRIP IN SCH ×4 (00:35→18:11)
[2018-10-11] MEDS: INSULIN ASPART/LISPRO 100 UNIT/ML CARTRIDGE SQ PRN ×4 (00:37→18:12)
[2018-10-11] MEDS: IPRATROPIUM NEB FS 0.5 MG/2.5 ML AMPUL.NEB NEB SCH ×4 (01:55→19:22)
[2018-10-11] MEDS: ALBUTEROL FS 2.5 MG/3 ML VIAL.NEB NEB SCH ×4 (01:55→19:22)
[2018-10-11] MEDS: PANTOPRAZOLE 40 MG/PACK PACK GT SCH (05:46)
--- NOTE | 2018-10-11 05:52 | NUR ---
GT dislodged,balloon broken replaced with same size F#20x 20ml.KUB ordered to check placement.
[2018-10-11 06:00] VITALS: BP 113/73
--- NOTE | 2018-10-11 07:48 | NUR ---
RT PLACED PATIENT ON CA PER MD ORDER. SpO2 98%, HR 74. NO SIGNS OF DISTRESS NOTED AT THIS TIME. WILL CONTINUE TO MONITOR THE PT FOR ANY CHANGES. RN NOTIFIED AND AWARE. Addendum: 10/11/18 at 1002 by LISA CRAIN RT Amended: Links added.
[2018-10-11 07:54] VITALS: BP 130/77
--- NOTE | 2018-10-11 08:38 | NUR ---
Late entry for 10/09/18 Received order to give Neutraphos 2 packet via GT x 1 for hypophosphatemia.
[2018-10-11] MEDS: HYDROGEN PEROXIDE 480 ML BOTTLE TP SCH ×2 (09:00→21:00)
[2018-10-11] MEDS: LEVETIRACETAM SOL (5 ML) 100 MG/ML UDC GT SCH ×2 (09:31→21:02)
[2018-10-11] MEDS: VALSARTAN 80 MG TABLET GT SCH (09:31)
[2018-10-11] MEDS: DOCUSATE SODIUM LIQ 100 MG/10 ML UDC GT SCH ×2 (09:31→17:00)
[2018-10-11] MEDS: ACIDOPHILUS/BULGARICUS 1 EACH TAB.CHEW GT SCH ×2 (09:31→17:00)
[2018-10-11] MEDS: FERROUS SULFATE - FOR SA ONLY 330 MG/7.5 ML UDC GT SCH (09:31)
[2018-10-11] MEDS: MULTIVIT W/MINERALS 1 TAB TABLET GT SCH (09:31)
[2018-10-11] MEDS: ASCORBIC ACID 500 MG TABLET GT SCH (09:32)
[2018-10-11] MEDS: ZINC SULFATE 220 MG CAPSULE GT SCH (09:32)
[2018-10-11] MEDS: ACETAMINOPHEN 650 MG/20 ML UDC- SA PATIENTS-PAIN ONLY GT SCH ×2 (09:32→21:03)
[2018-10-11] MEDS: CLOTRIMAZOLE 1% CREAM 24 GM TUBE TP SCH ×2 (10:00→21:40)
[2018-10-11] MEDS: ZINC OXIDE 30 GM TUBE TP SCH ×2 (10:00→21:40)
[2018-10-11] MEDS: THERAHONEY GEL 1.5 OZ TUBE TP SCH ×2 (10:00→21:40)
[2018-10-11] MEDS: Z GUARD REMEDY 2 OZ OINT TP SCH ×2 (10:00→21:40)
[2018-10-11] MEDS ORDERED: DIATR MEGLU/DIATRIZOATE SODIUM 30 ML BOTTLE (GASTROGRAPHIN) ONE (10:05)
[2018-10-11 12:00] VITALS: BP 146/77
[2018-10-11 18:00] VITALS: BP 124/58
[2018-10-11] MEDS: LEVOFLOXACIN (500MG) 500 MG TABLET GT SCH (18:11)
[2018-10-11 20:23] VITALS: BP 134/73
[2018-10-11] MEDS: ATORVASTATIN 10 MG TABLET GT SCH (21:03)
[2018-10-11] MEDS: ENOXAPARIN SODIUM 40 MG/0.4 ML DISP.SYRIN SQ SCH (21:03)
[2018-10-11] MEDS: GLUCERNA 1.2 1,000 ML BOTTLE GT PRN (21:04)
[2018-10-11] MEDS: INSULIN GLARGINE, 100 UNIT/ML CARTRIDGE SQ SCH (22:15)
[2018-10-12] MEDS: DILTIAZEM HCL 30 MG TABLET GT SCH ×5 (00:03→23:48)
[2018-10-12] MEDS: BLOOD SUGAR DIAGNOSTIC 1 EACH STRIP IN SCH ×5 (00:03→23:01)
[2018-10-12] MEDS: INSULIN ASPART/LISPRO 100 UNIT/ML CARTRIDGE SQ PRN ×5 (00:04→23:06)
[2018-10-12 00:05] VITALS: BP 147/78
[2018-10-12] MEDS: ALBUTEROL FS 2.5 MG/3 ML VIAL.NEB NEB SCH ×4 (00:51→20:14)
[2018-10-12] MEDS: IPRATROPIUM NEB FS 0.5 MG/2.5 ML AMPUL.NEB NEB SCH ×4 (00:51→20:14)
[2018-10-12] MEDS: PANTOPRAZOLE 40 MG/PACK PACK GT SCH (05:11)
[2018-10-12 06:00] VITALS: BP 150/77
--- NOTE | 2018-10-12 06:34 | NUR ---
Patient tolerated cool aerosol ,no respiratory distress noted.
[2018-10-12 07:37] VITALS: BP 150/88
[2018-10-12] MEDS: DOCUSATE SODIUM LIQ 100 MG/10 ML UDC GT SCH ×2 (08:45→17:54)
[2018-10-12] MEDS: ACIDOPHILUS/BULGARICUS 1 EACH TAB.CHEW GT SCH ×2 (08:45→17:54)
[2018-10-12] MEDS: ZINC SULFATE 220 MG CAPSULE GT SCH (08:45)
[2018-10-12] MEDS: ASCORBIC ACID 500 MG TABLET GT SCH (08:45)
[2018-10-12] MEDS: LEVETIRACETAM SOL (5 ML) 100 MG/ML UDC GT SCH ×2 (08:45→21:40)
[2018-10-12] MEDS: FERROUS SULFATE - FOR SA ONLY 330 MG/7.5 ML UDC GT SCH (08:45)
[2018-10-12] MEDS: ACETAMINOPHEN 650 MG/20 ML UDC- SA PATIENTS-PAIN ONLY GT SCH ×2 (08:45→21:42)
[2018-10-12] MEDS: VALSARTAN 80 MG TABLET GT SCH (08:46)
[2018-10-12] MEDS: MULTIVIT W/MINERALS 1 TAB TABLET GT SCH (08:48)
[2018-10-12] MEDS: HYDROGEN PEROXIDE 480 ML BOTTLE TP SCH ×2 (09:00→21:42)
[2018-10-12] MEDS: ZINC OXIDE 30 GM TUBE TP SCH ×2 (09:20→21:43)
[2018-10-12] MEDS: Z GUARD REMEDY 2 OZ OINT TP SCH ×2 (09:20→21:43)
[2018-10-12] MEDS: THERAHONEY GEL 1.5 OZ TUBE TP SCH ×2 (09:20→21:43)
[2018-10-12] MEDS: CLOTRIMAZOLE 1% CREAM 24 GM TUBE TP SCH ×2 (09:20→21:43)
[2018-10-12 12:00] VITALS: BP 144/74
[2018-10-12] MEDS: GLUCERNA 1.2 1,000 ML BOTTLE GT PRN (13:04)
--- NOTE | 2018-10-12 17:00 | NUR ---
Received a call from [facility] stating that Lantus is not covered by patient's insurance and Basaglar is the alternative. According to pharmacist Mark Lantus and Basaglar are the same medication but only different shank threader, therefore dosing is equivalent. Informed Dr. Capone he ordered to change Lantus to Basaglar. Order noted and carried out.
[2018-10-12] MEDS: LEVOFLOXACIN (500MG) 500 MG TABLET GT SCH (17:54)
[2018-10-12 18:38] VITALS: BP 151/71
[2018-10-12 19:58] VITALS: BP 116/60
[2018-10-12] MEDS: ENOXAPARIN SODIUM 40 MG/0.4 ML DISP.SYRIN SQ SCH (21:42)
[2018-10-12] MEDS: ATORVASTATIN 10 MG TABLET GT SCH (21:43)
[2018-10-12] MEDS: BASAGLAR SQ SCH (22:56)
[2018-10-13] VITALS: BP 144/75
[2018-10-13] MEDS: ALBUTEROL FS 2.5 MG/3 ML VIAL.NEB NEB SCH ×4 (02:00→20:00)
[2018-10-13] MEDS: IPRATROPIUM NEB FS 0.5 MG/2.5 ML AMPUL.NEB NEB SCH ×4 (02:00→20:00)
[2018-10-13] MEDS: PANTOPRAZOLE 40 MG/PACK PACK GT SCH (05:23)
[2018-10-13] MEDS: DILTIAZEM HCL 30 MG TABLET GT SCH ×4 (05:56→23:36)
[2018-10-13 06:00] VITALS: BP 140/69
[2018-10-13] MEDS: BLOOD SUGAR DIAGNOSTIC 1 EACH STRIP IN SCH ×4 (06:26→23:36)
[2018-10-13] MEDS: INSULIN ASPART/LISPRO 100 UNIT/ML CARTRIDGE SQ PRN ×4 (06:30→23:39)
[2018-10-13] MEDS: GLUCERNA 1.2 1,000 ML BOTTLE GT PRN (06:43)
[2018-10-13 07:27] VITALS: BP 127/59
[2018-10-13] MEDS: LEVETIRACETAM SOL (5 ML) 100 MG/ML UDC GT SCH ×2 (08:38→20:29)
[2018-10-13] MEDS: DOCUSATE SODIUM LIQ 100 MG/10 ML UDC GT SCH ×2 (08:38→16:54)
[2018-10-13] MEDS: VALSARTAN 80 MG TABLET GT SCH (08:38)
[2018-10-13] MEDS: FERROUS SULFATE - FOR SA ONLY 330 MG/7.5 ML UDC GT SCH (08:38)
[2018-10-13] MEDS: MULTIVIT W/MINERALS 1 TAB TABLET GT SCH (08:39)
[2018-10-13] MEDS: ACIDOPHILUS/BULGARICUS 1 EACH TAB.CHEW GT SCH ×2 (08:39→16:54)
[2018-10-13] MEDS: ACETAMINOPHEN 650 MG/20 ML UDC- SA PATIENTS-PAIN ONLY GT SCH ×3 (08:40→21:30)
[2018-10-13] MEDS: ASCORBIC ACID 500 MG TABLET GT SCH (08:40)
[2018-10-13] MEDS: ZINC SULFATE 220 MG CAPSULE GT SCH (08:40)
[2018-10-13] MEDS: ZINC OXIDE 30 GM TUBE TP SCH ×2 (09:40→20:31)
[2018-10-13] MEDS: Z GUARD REMEDY 2 OZ OINT TP SCH ×2 (09:40→20:31)
[2018-10-13] MEDS: CLOTRIMAZOLE 1% CREAM 24 GM TUBE TP SCH ×2 (09:40→20:30)
[2018-10-13] MEDS: THERAHONEY GEL 1.5 OZ TUBE TP SCH ×2 (09:40→20:31)
[2018-10-13] MEDS: HYDROGEN PEROXIDE 480 ML BOTTLE TP SCH ×2 (10:20→20:30)
[2018-10-13 12:00] VITALS: BP 99/60
[2018-10-13 18:55] VITALS: BP 144/81
[2018-10-13 20:00] VITALS: BP 130/62
[2018-10-13] MEDS: ENOXAPARIN SODIUM 40 MG/0.4 ML DISP.SYRIN SQ SCH (20:30)
[2018-10-13] MEDS: ATORVASTATIN 10 MG TABLET GT SCH (21:18)
[2018-10-13] MEDS: BASAGLAR SQ SCH (21:18)
[2018-10-14] VITALS: BP 159/68
[2018-10-14] MEDS: GLUCERNA 1.2 1,000 ML BOTTLE GT PRN (00:15)
[2018-10-14] MEDS: ALBUTEROL FS 2.5 MG/3 ML VIAL.NEB NEB SCH ×4 (01:38→19:55)
[2018-10-14] MEDS: IPRATROPIUM NEB FS 0.5 MG/2.5 ML AMPUL.NEB NEB SCH ×4 (01:38→19:55)
[2018-10-14] MEDS: BLOOD SUGAR DIAGNOSTIC 1 EACH STRIP IN SCH ×3 (05:29→17:36)
[2018-10-14] MEDS: DILTIAZEM HCL 30 MG TABLET GT SCH ×3 (05:29→17:13)
[2018-10-14] MEDS: PANTOPRAZOLE 40 MG/PACK PACK GT SCH (05:29)
[2018-10-14] MEDS: INSULIN ASPART/LISPRO 100 UNIT/ML CARTRIDGE SQ PRN ×3 (05:30→17:39)
[2018-10-14 06:00] VITALS: BP 146/69
[2018-10-14 07:26] VITALS: BP 120/58
[2018-10-14] MEDS: ZINC OXIDE 30 GM TUBE TP SCH ×2 (09:00→21:00)
[2018-10-14] MEDS: DOCUSATE SODIUM LIQ 100 MG/10 ML UDC GT SCH ×2 (09:58→17:12)
[2018-10-14] MEDS: ASCORBIC ACID 500 MG TABLET GT SCH (09:59)
[2018-10-14] MEDS: CLOTRIMAZOLE 1% CREAM 24 GM TUBE TP SCH ×2 (09:59→21:00)
[2018-10-14] MEDS: MULTIVIT W/MINERALS 1 TAB TABLET GT SCH (09:59)
[2018-10-14] MEDS: FERROUS SULFATE - FOR SA ONLY 330 MG/7.5 ML UDC GT SCH (09:59)
[2018-10-14] MEDS: ZINC SULFATE 220 MG CAPSULE GT SCH (09:59)
[2018-10-14] MEDS: LEVETIRACETAM SOL (5 ML) 100 MG/ML UDC GT SCH ×2 (09:59→21:00)
[2018-10-14] MEDS: HYDROGEN PEROXIDE 480 ML BOTTLE TP SCH ×2 (09:59→21:58)
[2018-10-14] MEDS: VALSARTAN 80 MG TABLET GT SCH (09:59)
[2018-10-14] MEDS: ACIDOPHILUS/BULGARICUS 1 EACH TAB.CHEW GT SCH ×2 (09:59→17:12)
[2018-10-14] MEDS: Z GUARD REMEDY 2 OZ OINT TP SCH ×2 (09:59→21:00)
[2018-10-14] MEDS: THERAHONEY GEL 1.5 OZ TUBE TP SCH ×2 (10:00→21:00)
[2018-10-14 15:34] VITALS: BP 142/83
[2018-10-14 18:20] VITALS: BP 143/69
[2018-10-14 20:42] VITALS: BP 132/72
[2018-10-14] MEDS: ENOXAPARIN SODIUM 40 MG/0.4 ML DISP.SYRIN SQ SCH (21:00)
[2018-10-14] MEDS: ACETAMINOPHEN 650 MG/20 ML UDC- SA PATIENTS-PAIN ONLY GT SCH (21:00)
[2018-10-14] MEDS: ATORVASTATIN 10 MG TABLET GT SCH (22:41)
[2018-10-14] MEDS: BASAGLAR SQ SCH (22:42)
[2018-10-15] VITALS: BP 151/80
[2018-10-15] MEDS: DILTIAZEM HCL 30 MG TABLET GT SCH ×4 (00:26→17:56)
[2018-10-15] MEDS: BLOOD SUGAR DIAGNOSTIC 1 EACH STRIP IN SCH ×4 (00:26→17:27)
[2018-10-15] MEDS: INSULIN ASPART/LISPRO 100 UNIT/ML CARTRIDGE SQ PRN ×4 (00:28→17:29)
[2018-10-15] MEDS: IPRATROPIUM NEB FS 0.5 MG/2.5 ML AMPUL.NEB NEB SCH ×4 (01:32→19:54)
[2018-10-15] MEDS: ALBUTEROL FS 2.5 MG/3 ML VIAL.NEB NEB SCH ×4 (01:32→19:54)
[2018-10-15] MEDS: PANTOPRAZOLE 40 MG/PACK PACK GT SCH (05:57)
[2018-10-15 06:00] VITALS: BP 139/63
[2018-10-15 07:54] VITALS: BP 129/67
[2018-10-15] MEDS: ACETAMINOPHEN 650 MG/20 ML UDC- SA PATIENTS-PAIN ONLY GT SCH ×2 (09:00→20:40)
[2018-10-15] MEDS: MULTIVIT W/MINERALS 1 TAB TABLET GT SCH (09:00)
[2018-10-15] MEDS: THERAHONEY GEL 1.5 OZ TUBE TP SCH ×2 (09:00→20:41)
[2018-10-15] MEDS: FERROUS SULFATE - FOR SA ONLY 330 MG/7.5 ML UDC GT SCH (09:00)
[2018-10-15] MEDS: ACIDOPHILUS/BULGARICUS 1 EACH TAB.CHEW GT SCH ×2 (09:00→16:57)
[2018-10-15] MEDS: HYDROGEN PEROXIDE 480 ML BOTTLE TP SCH ×2 (09:00→20:41)
[2018-10-15] MEDS: CLOTRIMAZOLE 1% CREAM 24 GM TUBE TP SCH ×2 (09:00→20:41)
[2018-10-15] MEDS: ASCORBIC ACID 500 MG TABLET GT SCH (09:00)
[2018-10-15] MEDS: Z GUARD REMEDY 2 OZ OINT TP SCH ×2 (09:00→20:41)
[2018-10-15] MEDS: DOCUSATE SODIUM LIQ 100 MG/10 ML UDC GT SCH ×2 (09:00→16:57)
[2018-10-15] MEDS: ZINC SULFATE 220 MG CAPSULE GT SCH (09:00)
[2018-10-15] MEDS: VALSARTAN 80 MG TABLET GT SCH (09:00)
[2018-10-15] MEDS: ZINC OXIDE 30 GM TUBE TP SCH ×2 (09:00→20:41)
[2018-10-15] MEDS: LEVETIRACETAM SOL (5 ML) 100 MG/ML UDC GT SCH ×2 (09:00→20:44)
[2018-10-15] MEDS: GLUCERNA 1.2 1,000 ML BOTTLE GT PRN (10:41)
[2018-10-15 16:58] VITALS: BP 116/72
[2018-10-15 18:38] VITALS: BP 138/73
[2018-10-15 20:16] VITALS: BP 132/68
[2018-10-15] MEDS: ENOXAPARIN SODIUM 40 MG/0.4 ML DISP.SYRIN SQ SCH (20:41)
[2018-10-15] MEDS: ATORVASTATIN 10 MG TABLET GT SCH (21:46)
[2018-10-15] MEDS: BASAGLAR SQ SCH (21:47)
[2018-10-16] MEDS: BLOOD SUGAR DIAGNOSTIC 1 EACH STRIP IN SCH ×4 (00:26→17:23)
[2018-10-16] MEDS: DILTIAZEM HCL 30 MG TABLET GT SCH ×4 (00:26→17:22)
[2018-10-16] MEDS: INSULIN ASPART/LISPRO 100 UNIT/ML CARTRIDGE SQ PRN ×4 (00:28→17:24)
[2018-10-16 00:37] VITALS: BP 137/77
[2018-10-16] MEDS: ALBUTEROL FS 2.5 MG/3 ML VIAL.NEB NEB SCH ×4 (02:22→19:17)
[2018-10-16] MEDS: IPRATROPIUM NEB FS 0.5 MG/2.5 ML AMPUL.NEB NEB SCH ×4 (02:22→19:17)
[2018-10-16] MEDS: GLUCERNA 1.2 1,000 ML BOTTLE GT PRN ×2 (05:50→21:53)
[2018-10-16] MEDS: PANTOPRAZOLE 40 MG/PACK PACK GT SCH (05:54)
[2018-10-16 06:27] VITALS: BP 127/70
[2018-10-16 07:54] VITALS: BP 106/53
[2018-10-16] MEDS: ZINC OXIDE 30 GM TUBE TP SCH ×2 (09:00→20:48)
[2018-10-16] MEDS: Z GUARD REMEDY 2 OZ OINT TP SCH ×2 (09:00→20:48)
[2018-10-16] MEDS: CLOTRIMAZOLE 1% CREAM 24 GM TUBE TP SCH ×2 (09:00→20:48)
[2018-10-16] MEDS: THERAHONEY GEL 1.5 OZ TUBE TP SCH ×2 (09:00→20:48)
[2018-10-16] MEDS: MULTIVIT W/MINERALS 1 TAB TABLET GT SCH (09:32)
[2018-10-16] MEDS: DOCUSATE SODIUM LIQ 100 MG/10 ML UDC GT SCH ×2 (09:32→16:51)
[2018-10-16] MEDS: LEVETIRACETAM SOL (5 ML) 100 MG/ML UDC GT SCH ×2 (09:32→20:55)
[2018-10-16] MEDS: ACIDOPHILUS/BULGARICUS 1 EACH TAB.CHEW GT SCH ×2 (09:32→16:51)
[2018-10-16] MEDS: VALSARTAN 80 MG TABLET GT SCH (09:32)
[2018-10-16] MEDS: FERROUS SULFATE - FOR SA ONLY 330 MG/7.5 ML UDC GT SCH (09:32)
[2018-10-16] MEDS: ACETAMINOPHEN 650 MG/20 ML UDC- SA PATIENTS-PAIN ONLY GT SCH ×2 (09:34→20:55)
[2018-10-16] MEDS: ASCORBIC ACID 500 MG TABLET GT SCH (09:34)
[2018-10-16] MEDS: ZINC SULFATE 220 MG CAPSULE GT SCH (09:34)
[2018-10-16] MEDS: HYDROGEN PEROXIDE 480 ML BOTTLE TP SCH ×2 (14:38→20:48)
[2018-10-16 15:56] VITALS: BP 137/77
--- NOTE | 2018-10-16 19:07 | NUR ---
Seen by PULPER Kennedi Bender. She ordered to do follow-up CXR, BMP, and BNP.
[2018-10-16 19:09] VITALS: BP 151/74
[2018-10-16 20:05] VITALS: BP 131/76
[2018-10-16] MEDS: ENOXAPARIN SODIUM 40 MG/0.4 ML DISP.SYRIN SQ SCH (20:48)
[2018-10-16] MEDS: ATORVASTATIN 10 MG TABLET GT SCH (21:20)
[2018-10-16] MEDS: BASAGLAR SQ SCH (21:21)
[2018-10-17 00:29] VITALS: BP 134/58
[2018-10-17] MEDS: BLOOD SUGAR DIAGNOSTIC 1 EACH STRIP IN SCH ×5 (00:32→23:36)
[2018-10-17] MEDS: DILTIAZEM HCL 30 MG TABLET GT SCH ×5 (00:32→23:36)
[2018-10-17] MEDS: INSULIN ASPART/LISPRO 100 UNIT/ML CARTRIDGE SQ PRN ×5 (00:34→23:37)
[2018-10-17] MEDS: ALBUTEROL FS 2.5 MG/3 ML VIAL.NEB NEB SCH ×4 (01:25→20:05)
[2018-10-17] MEDS: IPRATROPIUM NEB FS 0.5 MG/2.5 ML AMPUL.NEB NEB SCH ×4 (01:25→20:04)
[2018-10-17] MEDS: PANTOPRAZOLE 40 MG/PACK PACK GT SCH (06:01)
[2018-10-17 06:38] VITALS: BP 138/86
[2018-10-17] MEDS: HYDROGEN PEROXIDE 480 ML BOTTLE TP SCH ×2 (07:53→21:30)
[2018-10-17 07:57] VITALS: BP 165/93
[2018-10-17 08:15] LABS: CALCIUM, SERUM 9.2 mg/dL (8.5-10.1); CREATININE 1.1 mg/dL (0.6-1.3)
[2018-10-17] MEDS: DOCUSATE SODIUM LIQ 100 MG/10 ML UDC GT SCH ×2 (09:00→17:39)
[2018-10-17] MEDS: FERROUS SULFATE - FOR SA ONLY 330 MG/7.5 ML UDC GT SCH (09:00)
[2018-10-17] MEDS: MULTIVIT W/MINERALS 1 TAB TABLET GT SCH (09:00)
[2018-10-17] MEDS: ASCORBIC ACID 500 MG TABLET GT SCH (09:00)
[2018-10-17] MEDS: ACIDOPHILUS/BULGARICUS 1 EACH TAB.CHEW GT SCH ×2 (09:00→17:39)
[2018-10-17] MEDS: ACETAMINOPHEN 650 MG/20 ML UDC- SA PATIENTS-PAIN ONLY GT SCH ×2 (09:00→21:38)
[2018-10-17] MEDS: LEVETIRACETAM SOL (5 ML) 100 MG/ML UDC GT SCH ×2 (09:00→21:38)
[2018-10-17] MEDS: ZINC OXIDE 30 GM TUBE TP SCH ×2 (09:00→21:58)
[2018-10-17] MEDS: VALSARTAN 80 MG TABLET GT SCH (09:00)
[2018-10-17] MEDS: CLOTRIMAZOLE 1% CREAM 24 GM TUBE TP SCH ×2 (09:00→21:58)
[2018-10-17] MEDS: ZINC SULFATE 220 MG CAPSULE GT SCH (09:00)
[2018-10-17] MEDS: Z GUARD REMEDY 2 OZ OINT TP SCH ×2 (09:00→21:58)
[2018-10-17] MEDS: THERAHONEY GEL 1.5 OZ TUBE TP SCH ×2 (09:00→21:58)
[2018-10-17 12:00] VITALS: BP 145/79
--- NOTE | 2018-10-17 17:50 | NUR ---
RT NOTE: RECEIVED PT ON 28% COOL AEROSOL. NO RESPIRATORY DISTRESS NOTED. TRACH CHECKED SECURE AND PATENT. SXD AND LAVAGED PT Q ROUND AND NEEDED. TXS GIVEN ORDERED WITH NO ADVERSE REACTIONS NOTED. TRACH CARE DONE. EMERGENCY EQUIPMENT @ BEDSIDE. ALARMS CHECKED. Addendum: 10/17/18 at 1750 by ELIJAH DHALIWAL RT Amended: Links added.
[2018-10-17 18:00] VITALS: BP 159/82
[2018-10-17 20:14] VITALS: BP 137/68
[2018-10-17] MEDS: ATORVASTATIN 10 MG TABLET GT SCH (21:39)
[2018-10-17] MEDS: ENOXAPARIN SODIUM 40 MG/0.4 ML DISP.SYRIN SQ SCH (21:39)
[2018-10-17] MEDS: BASAGLAR SQ SCH (22:50)
[2018-10-18 00:09] VITALS: BP 131/78
[2018-10-18] MEDS: ALBUTEROL FS 2.5 MG/3 ML VIAL.NEB NEB SCH ×4 (01:36→19:07)
[2018-10-18] MEDS: IPRATROPIUM NEB FS 0.5 MG/2.5 ML AMPUL.NEB NEB SCH ×4 (01:36→19:07)
[2018-10-18] MEDS: BLOOD SUGAR DIAGNOSTIC 1 EACH STRIP IN SCH ×4 (05:38→23:54)
[2018-10-18] MEDS: PANTOPRAZOLE 40 MG/PACK PACK GT SCH (05:38)
[2018-10-18] MEDS: GLUCERNA 1.2 1,000 ML BOTTLE GT PRN ×2 (05:38→17:48)
[2018-10-18] MEDS: DILTIAZEM HCL 30 MG TABLET GT SCH ×4 (05:38→23:54)
[2018-10-18] MEDS: INSULIN ASPART/LISPRO 100 UNIT/ML CARTRIDGE SQ PRN ×4 (05:39→23:56)
[2018-10-18 06:08] VITALS: BP 136/79
[2018-10-18 07:25] VITALS: BP 135/68
[2018-10-18] MEDS: HYDROGEN PEROXIDE 480 ML BOTTLE TP SCH ×2 (08:12→20:06)
[2018-10-18] MEDS: DOCUSATE SODIUM LIQ 100 MG/10 ML UDC GT SCH ×2 (09:54→17:48)
[2018-10-18] MEDS: LEVETIRACETAM SOL (5 ML) 100 MG/ML UDC GT SCH ×2 (09:55→21:27)
[2018-10-18] MEDS: ACETAMINOPHEN 650 MG/20 ML UDC- SA PATIENTS-PAIN ONLY GT SCH ×2 (09:55→21:28)
[2018-10-18] MEDS: FERROUS SULFATE - FOR SA ONLY 330 MG/7.5 ML UDC GT SCH (09:55)
[2018-10-18] MEDS: MULTIVIT W/MINERALS 1 TAB TABLET GT SCH (09:55)
[2018-10-18] MEDS: ACIDOPHILUS/BULGARICUS 1 EACH TAB.CHEW GT SCH ×2 (09:55→17:48)
[2018-10-18] MEDS: VALSARTAN 80 MG TABLET GT SCH (09:55)
[2018-10-18] MEDS: ASCORBIC ACID 500 MG TABLET GT SCH (09:55)
[2018-10-18] MEDS: ZINC SULFATE 220 MG CAPSULE GT SCH (09:55)
[2018-10-18] MEDS: Z GUARD REMEDY 2 OZ OINT TP SCH ×2 (10:25→22:00)
[2018-10-18] MEDS: ZINC OXIDE 30 GM TUBE TP SCH ×2 (10:25→22:00)
[2018-10-18] MEDS: CLOTRIMAZOLE 1% CREAM 24 GM TUBE TP SCH ×2 (10:25→22:00)
[2018-10-18] MEDS: THERAHONEY GEL 1.5 OZ TUBE TP SCH ×2 (10:25→22:00)
[2018-10-18 12:00] VITALS: BP 112/71
[2018-10-18 18:00] VITALS: BP 136/62
[2018-10-18 20:00] VITALS: BP 107/46
[2018-10-18] MEDS: ENOXAPARIN SODIUM 40 MG/0.4 ML DISP.SYRIN SQ SCH (21:29)
[2018-10-18] MEDS: ATORVASTATIN 10 MG TABLET GT SCH (21:29)
[2018-10-18] MEDS: BASAGLAR SQ SCH (21:50)
[2018-10-19 00:30] VITALS: BP 128/65
[2018-10-19] MEDS: IPRATROPIUM NEB FS 0.5 MG/2.5 ML AMPUL.NEB NEB SCH ×4 (00:38→20:06)
[2018-10-19] MEDS: ALBUTEROL FS 2.5 MG/3 ML VIAL.NEB NEB SCH ×4 (00:38→20:06)
[2018-10-19] MEDS: BLOOD SUGAR DIAGNOSTIC 1 EACH STRIP IN SCH ×3 (05:54→17:37)
[2018-10-19] MEDS: DILTIAZEM HCL 30 MG TABLET GT SCH ×3 (05:54→17:37)
[2018-10-19] MEDS: PANTOPRAZOLE 40 MG/PACK PACK GT SCH (05:54)
[2018-10-19] MEDS: INSULIN ASPART/LISPRO 100 UNIT/ML CARTRIDGE SQ PRN ×3 (05:55→17:39)
[2018-10-19 06:18] VITALS: BP 130/73
[2018-10-19 08:11] VITALS: BP 141/91
[2018-10-19] MEDS: HYDROGEN PEROXIDE 480 ML BOTTLE TP SCH ×2 (09:00→21:57)
[2018-10-19] MEDS: VALSARTAN 80 MG TABLET GT SCH (09:00)
[2018-10-19] MEDS: MULTIVIT W/MINERALS 1 TAB TABLET GT SCH (09:00)
[2018-10-19] MEDS: LEVETIRACETAM SOL (5 ML) 100 MG/ML UDC GT SCH ×2 (09:00→21:46)
[2018-10-19] MEDS: ACIDOPHILUS/BULGARICUS 1 EACH TAB.CHEW GT SCH ×2 (09:00→17:37)
[2018-10-19] MEDS: DOCUSATE SODIUM LIQ 100 MG/10 ML UDC GT SCH ×2 (09:00→17:37)
[2018-10-19] MEDS: FERROUS SULFATE - FOR SA ONLY 330 MG/7.5 ML UDC GT SCH (09:00)
[2018-10-19] MEDS: ASCORBIC ACID 500 MG TABLET GT SCH (09:00)
[2018-10-19] MEDS: ZINC SULFATE 220 MG CAPSULE GT SCH (09:00)
[2018-10-19] MEDS: ACETAMINOPHEN 650 MG/20 ML UDC- SA PATIENTS-PAIN ONLY GT SCH ×2 (10:15→21:47)
[2018-10-19] MEDS: CLOTRIMAZOLE 1% CREAM 24 GM TUBE TP SCH ×2 (10:45→21:57)
[2018-10-19] MEDS: Z GUARD REMEDY 2 OZ OINT TP SCH ×2 (10:45→21:57)
[2018-10-19] MEDS: ZINC OXIDE 30 GM TUBE TP SCH ×2 (10:45→21:57)
[2018-10-19] MEDS: THERAHONEY GEL 1.5 OZ TUBE TP SCH ×2 (10:45→21:57)
[2018-10-19 12:00] VITALS: BP 120/66
[2018-10-19] MEDS: GLUCERNA 1.2 1,000 ML BOTTLE GT PRN ×2 (13:31→17:37)
--- NOTE | 2018-10-19 13:45 | NUR ---
Seen by MILLY Bender. She reviewed pt's lab results. She ordered to give Lasix 40 mg GT x 5 days and do BMP BNP on 10/23/18. Addendum: 10/19/18 at 1852 by JASKARAN FITZGERALD RN Notified daughter.
--- NOTE | 2018-10-19 13:50 | NUR ---
Received order from Dr Pineda to change Lantus insulin to 10 units SC q HS. Notified daughter.
[2018-10-19] MEDS: FUROSEMIDE 40 MG TABLET GT SCH (14:30)
[2018-10-19 18:44] VITALS: BP 121/68
[2018-10-19 20:14] VITALS: BP 116/68
[2018-10-19] MEDS: ENOXAPARIN SODIUM 40 MG/0.4 ML DISP.SYRIN SQ SCH (21:47)
[2018-10-19] MEDS: ATORVASTATIN 10 MG TABLET GT SCH (21:48)
[2018-10-19] MEDS: BASAGLAR KWIKPEN SQ SCH (21:48)
[2018-10-20] MEDS: BLOOD SUGAR DIAGNOSTIC 1 EACH STRIP IN SCH ×5 (00:08→23:55)
[2018-10-20] MEDS: INSULIN ASPART/LISPRO 100 UNIT/ML CARTRIDGE SQ PRN ×5 (00:13→23:56)
[2018-10-20] MEDS: DILTIAZEM HCL 30 MG TABLET GT SCH ×5 (00:14→23:55)
[2018-10-20 00:27] VITALS: BP 142/81
[2018-10-20] MEDS: IPRATROPIUM NEB FS 0.5 MG/2.5 ML AMPUL.NEB NEB SCH ×4 (01:46→19:32)
[2018-10-20] MEDS: ALBUTEROL FS 2.5 MG/3 ML VIAL.NEB NEB SCH ×4 (01:46→19:32)
[2018-10-20] MEDS: PANTOPRAZOLE 40 MG/PACK PACK GT SCH (06:02)
[2018-10-20 06:12] VITALS: BP 122/80
[2018-10-20] MEDS: GLUCERNA 1.2 1,000 ML BOTTLE GT PRN (06:16)
[2018-10-20 07:36] VITALS: BP 137/58
[2018-10-20] MEDS: FERROUS SULFATE - FOR SA ONLY 330 MG/7.5 ML UDC GT SCH (09:00)
[2018-10-20] MEDS: LEVETIRACETAM SOL (5 ML) 100 MG/ML UDC GT SCH ×2 (09:00→21:24)
[2018-10-20] MEDS: ASCORBIC ACID 500 MG TABLET GT SCH (09:00)
[2018-10-20] MEDS: VALSARTAN 80 MG TABLET GT SCH (09:00)
[2018-10-20] MEDS: ACIDOPHILUS/BULGARICUS 1 EACH TAB.CHEW GT SCH ×2 (09:00→17:07)
[2018-10-20] MEDS: ZINC SULFATE 220 MG CAPSULE GT SCH (09:00)
[2018-10-20] MEDS: MULTIVIT W/MINERALS 1 TAB TABLET GT SCH (09:00)
[2018-10-20] MEDS: FUROSEMIDE 40 MG TABLET GT SCH (09:00)
[2018-10-20] MEDS: DOCUSATE SODIUM LIQ 100 MG/10 ML UDC GT SCH ×2 (09:00→17:07)
[2018-10-20] MEDS: HYDROGEN PEROXIDE 480 ML BOTTLE TP SCH ×2 (09:07→21:44)
[2018-10-20] MEDS: ACETAMINOPHEN 650 MG/20 ML UDC- SA PATIENTS-PAIN ONLY GT SCH ×2 (10:20→21:24)
[2018-10-20] MEDS: Z GUARD REMEDY 2 OZ OINT TP SCH ×2 (10:50→21:44)
[2018-10-20] MEDS: CLOTRIMAZOLE 1% CREAM 24 GM TUBE TP SCH ×2 (10:50→21:44)
[2018-10-20] MEDS: ZINC OXIDE 30 GM TUBE TP SCH ×2 (10:50→21:45)
[2018-10-20] MEDS: THERAHONEY GEL 1.5 OZ TUBE TP SCH ×2 (10:50→21:44)
[2018-10-20 12:12] VITALS: BP 128/77
[2018-10-20 18:00] VITALS: BP 132/73
[2018-10-20 20:31] VITALS: BP 116/58
[2018-10-20] MEDS: ATORVASTATIN 10 MG TABLET GT SCH (21:25)
[2018-10-20] MEDS: ENOXAPARIN SODIUM 40 MG/0.4 ML DISP.SYRIN SQ SCH (21:25)
[2018-10-20] MEDS: BASAGLAR KWIKPEN SQ SCH (21:26)
[2018-10-21 00:20] VITALS: BP 126/50
[2018-10-21] MEDS: IPRATROPIUM NEB FS 0.5 MG/2.5 ML AMPUL.NEB NEB SCH ×4 (01:15→19:33)
[2018-10-21] MEDS: ALBUTEROL FS 2.5 MG/3 ML VIAL.NEB NEB SCH ×4 (01:15→19:33)
[2018-10-21] MEDS: GLUCERNA 1.2 1,000 ML BOTTLE GT PRN ×2 (02:30→17:46)
[2018-10-21] MEDS: BLOOD SUGAR DIAGNOSTIC 1 EACH STRIP IN SCH ×4 (05:42→23:36)
[2018-10-21] MEDS: PANTOPRAZOLE 40 MG/PACK PACK GT SCH (05:42)
[2018-10-21] MEDS: DILTIAZEM HCL 30 MG TABLET GT SCH ×4 (05:42→23:34)
[2018-10-21] MEDS: INSULIN ASPART/LISPRO 100 UNIT/ML CARTRIDGE SQ PRN ×3 (05:44→17:47)
[2018-10-21 06:15] VITALS: BP 123/50
[2018-10-21 07:49] VITALS: BP 114/74
[2018-10-21] MEDS: FUROSEMIDE 40 MG TABLET GT SCH (09:00)
[2018-10-21] MEDS: HYDROGEN PEROXIDE 480 ML BOTTLE TP SCH ×2 (09:00→21:04)
[2018-10-21] MEDS: ASCORBIC ACID 500 MG TABLET GT SCH (09:00)
[2018-10-21] MEDS: ACIDOPHILUS/BULGARICUS 1 EACH TAB.CHEW GT SCH ×2 (09:00→17:43)
[2018-10-21] MEDS: VALSARTAN 80 MG TABLET GT SCH (09:00)
[2018-10-21] MEDS: DOCUSATE SODIUM LIQ 100 MG/10 ML UDC GT SCH ×2 (09:00→17:43)
[2018-10-21] MEDS: ZINC SULFATE 220 MG CAPSULE GT SCH (09:00)
[2018-10-21] MEDS: CLOTRIMAZOLE 1% CREAM 24 GM TUBE TP SCH ×2 (09:00→21:04)
[2018-10-21] MEDS: ZINC OXIDE 30 GM TUBE TP SCH ×2 (09:00→21:04)
[2018-10-21] MEDS: Z GUARD REMEDY 2 OZ OINT TP SCH ×2 (09:00→21:04)
[2018-10-21] MEDS: THERAHONEY GEL 1.5 OZ TUBE TP SCH ×2 (09:00→21:04)
[2018-10-21] MEDS: MULTIVIT W/MINERALS 1 TAB TABLET GT SCH (09:00)
[2018-10-21] MEDS: FERROUS SULFATE - FOR SA ONLY 330 MG/7.5 ML UDC GT SCH (09:00)
[2018-10-21] MEDS: LEVETIRACETAM SOL (5 ML) 100 MG/ML UDC GT SCH ×2 (09:00→21:07)
[2018-10-21] MEDS: ACETAMINOPHEN 650 MG/20 ML UDC- SA PATIENTS-PAIN ONLY GT SCH ×2 (09:00→21:07)
[2018-10-21 12:00] VITALS: BP 114/74
[2018-10-21 18:47] VITALS: BP 110/66
[2018-10-21 21:02] VITALS: BP 134/87
[2018-10-21] MEDS: ATORVASTATIN 10 MG TABLET GT SCH (21:06)
[2018-10-21] MEDS: ENOXAPARIN SODIUM 40 MG/0.4 ML DISP.SYRIN SQ SCH (21:08)
[2018-10-21] MEDS: BASAGLAR KWIKPEN SQ SCH (22:07)
[2018-10-22 00:39] VITALS: BP 134/87
[2018-10-22] MEDS: IPRATROPIUM NEB FS 0.5 MG/2.5 ML AMPUL.NEB NEB SCH ×4 (00:50→19:12)
[2018-10-22] MEDS: ALBUTEROL FS 2.5 MG/3 ML VIAL.NEB NEB SCH ×4 (00:50→19:12)
[2018-10-22] MEDS: DILTIAZEM HCL 30 MG TABLET GT SCH ×4 (06:02→23:51)
[2018-10-22] MEDS: PANTOPRAZOLE 40 MG/PACK PACK GT SCH (06:02)
[2018-10-22] MEDS: BLOOD SUGAR DIAGNOSTIC 1 EACH STRIP IN SCH ×4 (06:18→23:51)
[2018-10-22 06:52] VITALS: BP 128/84
[2018-10-22 07:18] VITALS: BP 114/59
[2018-10-22] MEDS: HYDROGEN PEROXIDE 480 ML BOTTLE TP SCH ×2 (09:00→21:04)
[2018-10-22] MEDS: DOCUSATE SODIUM LIQ 100 MG/10 ML UDC GT SCH ×2 (09:49→17:31)
[2018-10-22] MEDS: VALSARTAN 80 MG TABLET GT SCH (09:49)
[2018-10-22] MEDS: FERROUS SULFATE - FOR SA ONLY 330 MG/7.5 ML UDC GT SCH (09:50)
[2018-10-22] MEDS: LEVETIRACETAM SOL (5 ML) 100 MG/ML UDC GT SCH ×2 (09:50→21:25)
[2018-10-22] MEDS: ACIDOPHILUS/BULGARICUS 1 EACH TAB.CHEW GT SCH ×2 (09:50→17:31)
[2018-10-22] MEDS: FUROSEMIDE 40 MG TABLET GT SCH (09:50)
[2018-10-22] MEDS: MULTIVIT W/MINERALS 1 TAB TABLET GT SCH (09:51)
[2018-10-22] MEDS: ZINC SULFATE 220 MG CAPSULE GT SCH (09:51)
[2018-10-22] MEDS: ASCORBIC ACID 500 MG TABLET GT SCH (09:51)
[2018-10-22] MEDS: ACETAMINOPHEN 650 MG/20 ML UDC- SA PATIENTS-PAIN ONLY GT SCH ×2 (09:51→21:25)
[2018-10-22] MEDS: Z GUARD REMEDY 2 OZ OINT TP SCH ×2 (10:51→21:26)
[2018-10-22] MEDS: CLOTRIMAZOLE 1% CREAM 24 GM TUBE TP SCH ×2 (10:51→21:26)
[2018-10-22] MEDS: ZINC OXIDE 30 GM TUBE TP SCH ×2 (10:51→21:26)
[2018-10-22] MEDS: THERAHONEY GEL 1.5 OZ TUBE TP SCH ×2 (10:51→21:26)
[2018-10-22] MEDS: INSULIN ASPART/LISPRO 100 UNIT/ML CARTRIDGE SQ PRN ×3 (11:31→23:52)
[2018-10-22 12:00] VITALS: BP 99/60
[2018-10-22] MEDS: GLUCERNA 1.2 1,000 ML BOTTLE GT PRN (12:46)
[2018-10-22 18:47] VITALS: BP 99/65
[2018-10-22 19:55] VITALS: BP 107/70
--- NOTE | 2018-10-22 20:00 | NUR ---
RN NOTES Seen by Kennedi Bender NP, with no new orders.
[2018-10-22] MEDS: ENOXAPARIN SODIUM 40 MG/0.4 ML DISP.SYRIN SQ SCH (21:25)
[2018-10-22] MEDS: ATORVASTATIN 10 MG TABLET GT SCH (21:26)
[2018-10-22] MEDS: BASAGLAR KWIKPEN SQ SCH (21:26)
[2018-10-23] MEDS: IPRATROPIUM NEB FS 0.5 MG/2.5 ML AMPUL.NEB NEB SCH ×4 (01:28→19:55)
[2018-10-23] MEDS: ALBUTEROL FS 2.5 MG/3 ML VIAL.NEB NEB SCH ×4 (01:28→19:55)
[2018-10-23 03:32] VITALS: BP 103/67
[2018-10-23] MEDS: GLUCERNA 1.2 1,000 ML BOTTLE GT PRN ×2 (03:44→17:44)
[2018-10-23] MEDS: PANTOPRAZOLE 40 MG/PACK PACK GT SCH (06:10)
[2018-10-23] MEDS: BLOOD SUGAR DIAGNOSTIC 1 EACH STRIP IN SCH ×3 (06:10→17:32)
[2018-10-23] MEDS: DILTIAZEM HCL 30 MG TABLET GT SCH ×3 (06:10→17:31)
[2018-10-23] MEDS: INSULIN ASPART/LISPRO 100 UNIT/ML CARTRIDGE SQ PRN ×3 (06:11→17:49)
[2018-10-23 06:16] VITALS: BP 104/60
[2018-10-23 08:00] VITALS: BP 107/50
[2018-10-23 08:07] LABS: CALCIUM, SERUM 9.6 mg/dL (8.5-10.1); CREATININE 1.3 mg/dL (0.6-1.3); POTASSIUM 5.5 mmol/L (3.5-5.1)
[2018-10-23] MEDS: THERAHONEY GEL 1.5 OZ TUBE TP SCH ×2 (09:00→21:33)
[2018-10-23] MEDS: VALSARTAN 80 MG TABLET GT SCH (09:00)
[2018-10-23] MEDS: ZINC OXIDE 30 GM TUBE TP SCH ×2 (09:00→21:33)
[2018-10-23] MEDS: CLOTRIMAZOLE 1% CREAM 24 GM TUBE TP SCH ×2 (09:00→21:33)
--- NOTE | 2018-10-23 09:30 | NUR ---
Seen by Dr Capone. Relayed lab results to him. He ordered to give Kayexalate 30 gm via GT x 1 for K 5.5.
[2018-10-23] MEDS: DOCUSATE SODIUM LIQ 100 MG/10 ML UDC GT SCH ×2 (09:35→17:40)
[2018-10-23] MEDS: Z GUARD REMEDY 2 OZ OINT TP SCH ×2 (09:36→21:33)
[2018-10-23] MEDS: ZINC SULFATE 220 MG CAPSULE GT SCH (09:36)
[2018-10-23] MEDS: FERROUS SULFATE - FOR SA ONLY 330 MG/7.5 ML UDC GT SCH (09:36)
[2018-10-23] MEDS: ASCORBIC ACID 500 MG TABLET GT SCH (09:36)
[2018-10-23] MEDS: HYDROGEN PEROXIDE 480 ML BOTTLE TP SCH ×2 (09:36→10:07)
[2018-10-23] MEDS: ACIDOPHILUS/BULGARICUS 1 EACH TAB.CHEW GT SCH ×2 (09:36→17:31)
[2018-10-23] MEDS: FUROSEMIDE 40 MG TABLET GT SCH (09:36)
[2018-10-23] MEDS: ACETAMINOPHEN 650 MG/20 ML UDC- SA PATIENTS-PAIN ONLY GT SCH ×2 (09:36→21:32)
[2018-10-23] MEDS: LEVETIRACETAM SOL (5 ML) 100 MG/ML UDC GT SCH ×2 (09:36→21:32)
[2018-10-23] MEDS: MULTIVIT W/MINERALS 1 TAB TABLET GT SCH (09:36)
[2018-10-23] MEDS ORDERED: SODIUM POLYSTYRENE SULFONATE 15 G/60 ML BOTTLE PO ONE (11:00)
[2018-10-23 12:00] VITALS: BP 102/62
[2018-10-23 18:00] VITALS: BP 104/63
[2018-10-23 20:35] VITALS: BP 101/56
[2018-10-23] MEDS: ATORVASTATIN 10 MG TABLET GT SCH (21:33)
[2018-10-23] MEDS: ENOXAPARIN SODIUM 40 MG/0.4 ML DISP.SYRIN SQ SCH (21:33)
[2018-10-23] MEDS: BASAGLAR KWIKPEN SQ SCH (21:34)
[2018-10-24 00:35] VITALS: BP 106/58
[2018-10-24] MEDS: DILTIAZEM HCL 30 MG TABLET GT SCH ×4 (00:36→17:26)
[2018-10-24] MEDS: BLOOD SUGAR DIAGNOSTIC 1 EACH STRIP IN SCH ×4 (00:36→17:26)
[2018-10-24] MEDS: INSULIN ASPART/LISPRO 100 UNIT/ML CARTRIDGE SQ PRN ×4 (00:37→17:28)
[2018-10-24] MEDS: ALBUTEROL FS 2.5 MG/3 ML VIAL.NEB NEB SCH ×4 (01:21→19:30)
[2018-10-24] MEDS: IPRATROPIUM NEB FS 0.5 MG/2.5 ML AMPUL.NEB NEB SCH ×4 (01:21→19:30)
[2018-10-24 06:18] VITALS: BP 110/59
[2018-10-24] MEDS: PANTOPRAZOLE 40 MG/PACK PACK GT SCH (06:19)
[2018-10-24 08:00] VITALS: BP 109/59
[2018-10-24] MEDS: ACIDOPHILUS/BULGARICUS 1 EACH TAB.CHEW GT SCH ×2 (09:00→17:26)
[2018-10-24] MEDS: MULTIVIT W/MINERALS 1 TAB TABLET GT SCH (09:00)
[2018-10-24] MEDS: FERROUS SULFATE - FOR SA ONLY 330 MG/7.5 ML UDC GT SCH (09:00)
[2018-10-24] MEDS: ACETAMINOPHEN 650 MG/20 ML UDC- SA PATIENTS-PAIN ONLY GT SCH ×2 (09:00→21:52)
[2018-10-24] MEDS: FUROSEMIDE 40 MG TABLET GT SCH (09:00)
[2018-10-24] MEDS: ZINC SULFATE 220 MG CAPSULE GT SCH (09:00)
[2018-10-24] MEDS: ASCORBIC ACID 500 MG TABLET GT SCH (09:00)
[2018-10-24] MEDS: LEVETIRACETAM SOL (5 ML) 100 MG/ML UDC GT SCH ×2 (09:00→21:51)
[2018-10-24] MEDS: DOCUSATE SODIUM LIQ 100 MG/10 ML UDC GT SCH ×2 (09:00→17:26)
[2018-10-24] MEDS: HYDROGEN PEROXIDE 480 ML BOTTLE TP SCH ×2 (09:32→22:00)
[2018-10-24] MEDS: Z GUARD REMEDY 2 OZ OINT TP SCH ×2 (10:00→22:00)
[2018-10-24] MEDS: THERAHONEY GEL 1.5 OZ TUBE TP SCH ×2 (10:00→22:00)
[2018-10-24] MEDS: ZINC OXIDE 30 GM TUBE TP SCH ×2 (10:00→22:00)
[2018-10-24] MEDS: CLOTRIMAZOLE 1% CREAM 24 GM TUBE TP SCH ×2 (10:00→22:00)
--- NOTE | 2018-10-24 10:34 | NUR ---
Desktop Support Engineer contacted and spoke with patient's point of contact/ conservator, Kelly Wong . ORACIO introduced herself to Kelly, as the new Subacute dept. ORACIO. Kelly expressed being content to meet ORACIO. ORACIO invited Kem to IDT meeting being held this Friday, October 26, 2018 from 12:30pm-1:30pm. Kelly stated that she may attend if she doesn't have to work and confirm with SW later today or tomorrow upon visiting the pt. ORACIO offered Kelly the option to be on speaker phone via a phone call. Kelly expressed interest and will confirm her decision to ORACIO upon visiting the pt. today or tomorrow. Kelly asked that charge nurse contact her with an update on the patient. ORACIO asked Subacute charge nurse to update Kelly on patient's status. Charge Nurse will update Kelly today when possible. ORACIO will be available to support Kelly as needed. -
--- NOTE | 2018-10-24 11:00 | NUR ---
Solitario cath changed as ordered due to bypassing urine and blockage. New Solitario cath clean with clean yellow urine tolerated procedure well. All needs met and attended.
[2018-10-24] MEDS: GLUCERNA 1.2 1,000 ML BOTTLE GT PRN (11:28)
[2018-10-24 12:00] VITALS: BP 99/60
[2018-10-24 18:00] VITALS: BP 116/60
--- NOTE | 2018-10-24 18:32 | NUR ---
Left a message to patient's daughter Chavon of her request to update her of patient's condition. Awaiting for call back.
[2018-10-24 20:18] VITALS: BP 116/67
[2018-10-24] MEDS: ATORVASTATIN 10 MG TABLET GT SCH (21:52)
[2018-10-24] MEDS: ENOXAPARIN SODIUM 40 MG/0.4 ML DISP.SYRIN SQ SCH (21:52)
[2018-10-24] MEDS: INSULIN GLARGINE, 100 UNIT/ML CARTRIDGE SQ SCH (21:52)
[2018-10-25] MEDS: BLOOD SUGAR DIAGNOSTIC 1 EACH STRIP IN SCH ×5 (00:10→23:59)
[2018-10-25] MEDS: DILTIAZEM HCL 30 MG TABLET GT SCH ×5 (00:10→23:59)
[2018-10-25] MEDS: INSULIN ASPART/LISPRO 100 UNIT/ML CARTRIDGE SQ PRN ×4 (00:11→18:28)
[2018-10-25 00:20] VITALS: BP 123/82
[2018-10-25] MEDS: IPRATROPIUM NEB FS 0.5 MG/2.5 ML AMPUL.NEB NEB SCH ×4 (01:49→19:45)
[2018-10-25] MEDS: ALBUTEROL FS 2.5 MG/3 ML VIAL.NEB NEB SCH ×4 (01:49→19:45)
[2018-10-25] MEDS: GLUCERNA 1.2 1,000 ML BOTTLE GT PRN ×2 (03:00→18:26)
[2018-10-25] MEDS: PANTOPRAZOLE 40 MG/PACK PACK GT SCH (05:51)
[2018-10-25 06:45] VITALS: BP 140/74
[2018-10-25 07:58] VITALS: BP 137/79
[2018-10-25 08:42] LABS: BASOPHILS # (AUTO) 0.1 /CMM (0.0-0.2); BASOPHILS % (AUTO) 1.1 % (0.0-2.0); EOSINOPHILS % (AUTO) 3.2 % (0.0-6.0); HEMATOCRIT 34 % (33-45); HEMOGLOBIN 10.8 g/dL (11.5-14.8); LYMPHOCYTES # (AUTO) 2.4 /CMM (0.8-4.8); LYMPHOCYTES % (AUTO) 38.9 % (20.0-44.0); MEAN CORPUSCULAR HGB CONC 32 g/dl (31.0-36.0); MEAN CORPUSCULAR VOLUME 90 fL (82-100); MONOCYTES # (AUTO) 0.6 /CMM (0.1-1.30); MONOCYTES % (AUTO) 9.7 % (2.0-12.0); NEUTROPHILS # (AUTO) 2.9 /CMM (1.8-8.9); NEUTROPHILS % (AUTO) 47.1 % (43.0-81.0); PLATELET COUNT (AUTO) 457 /CMM (150-450); RED BLOOD CELL COUNT(AUTO) 3.75 MIL/uL (4.0-5.2); WHITE BLOOD COUNT (AUTO) 6.2 K/uL (4.3-11.0)
[2018-10-25] MEDS: DOCUSATE SODIUM LIQ 100 MG/10 ML UDC GT SCH ×2 (09:00→17:00)
[2018-10-25] MEDS: MULTIVIT W/MINERALS 1 TAB TABLET GT SCH (09:00)
[2018-10-25] MEDS: ZINC SULFATE 220 MG CAPSULE GT SCH (09:00)
[2018-10-25] MEDS: ACIDOPHILUS/BULGARICUS 1 EACH TAB.CHEW GT SCH ×2 (09:00→17:00)
[2018-10-25] MEDS: ASCORBIC ACID 500 MG TABLET GT SCH (09:00)
[2018-10-25] MEDS ORDERED: VALSARTAN 80 MG TABLET GT SCH (09:00)
[2018-10-25] MEDS: FERROUS SULFATE - FOR SA ONLY 330 MG/7.5 ML UDC GT SCH (09:00)
[2018-10-25] MEDS: LEVETIRACETAM SOL (5 ML) 100 MG/ML UDC GT SCH ×2 (09:00→21:34)
[2018-10-25 09:08] LABS: ALBUMIN 2.4 g/dL (3.4-5.0); BILIRUBIN,TOTAL 0.2 mg/dL (0.2-1.0); CALCIUM, SERUM 9.3 mg/dL (8.5-10.1); CREATININE 1.3 mg/dL (0.6-1.3); MAGNESIUM 2.5 mg/dL (1.8-2.4); PHOSPHORUS 3.8 mg/dL (2.5-4.9); POTASSIUM 4.1 mmol/L (3.5-5.1); TOTAL PROTEIN, SERUM 8.9 g/dL (6.4-8.2)
[2018-10-25] MEDS: ACETAMINOPHEN 650 MG/20 ML UDC- SA PATIENTS-PAIN ONLY GT SCH ×2 (10:20→21:34)
[2018-10-25] MEDS: Z GUARD REMEDY 2 OZ OINT TP SCH ×2 (10:50→22:00)
[2018-10-25] MEDS: THERAHONEY GEL 1.5 OZ TUBE TP SCH ×2 (10:50→22:00)
[2018-10-25] MEDS: ZINC OXIDE 30 GM TUBE TP SCH ×2 (10:50→22:00)
[2018-10-25] MEDS: CLOTRIMAZOLE 1% CREAM 24 GM TUBE TP SCH ×2 (10:50→22:00)
[2018-10-25 12:18] VITALS: BP 129/77
[2018-10-25] MEDS: HYDROGEN PEROXIDE 480 ML BOTTLE TP SCH ×2 (13:50→22:00)
--- NOTE | 2018-10-25 15:51 | NUR ---
ORACIO contacted and spoke to pt.'s daughter, Kelly Wong to confirm attendance or participation in IDT meeting via phonecall/speakerphone. Per Kelly, she will not be able to attend nor be on speakerphone to participate in IDT meeting this Friday October 26, 2018. ORACIO informed Kelly that she may ask for a copy of IDT plan of care. Kelly expressed understanding and stated she would request plan of care if interested.
--- NOTE | 2018-10-25 17:20 | NUR ---
Spoke with Dr. Martin reminding him of the labs he ordered are available for his review. He said that he will take a look at it.
[2018-10-25 18:00] VITALS: BP 113/68
--- NOTE | 2018-10-25 19:00 | NUR ---
Seen and examined by MILLY Bender, reviewed current labs, NNO given.
[2018-10-25 20:47] VITALS: BP 129/72
[2018-10-25] MEDS: ATORVASTATIN 10 MG TABLET GT SCH (21:35)
[2018-10-25] MEDS: ENOXAPARIN SODIUM 40 MG/0.4 ML DISP.SYRIN SQ SCH (21:35)
[2018-10-25] MEDS: INSULIN GLARGINE, 100 UNIT/ML CARTRIDGE SQ SCH (22:09)
[2018-10-26] MEDS: INSULIN ASPART/LISPRO 100 UNIT/ML CARTRIDGE SQ PRN ×5 (00:01→23:35)
[2018-10-26 00:20] VITALS: BP 116/58
[2018-10-26] MEDS: IPRATROPIUM NEB FS 0.5 MG/2.5 ML AMPUL.NEB NEB SCH ×4 (01:47→19:53)
[2018-10-26] MEDS: ALBUTEROL FS 2.5 MG/3 ML VIAL.NEB NEB SCH ×4 (01:47→19:53)
[2018-10-26] MEDS: DILTIAZEM HCL 30 MG TABLET GT SCH ×4 (05:27→23:34)
[2018-10-26] MEDS: BLOOD SUGAR DIAGNOSTIC 1 EACH STRIP IN SCH ×4 (05:27→23:34)
[2018-10-26] MEDS: PANTOPRAZOLE 40 MG/PACK PACK GT SCH (05:27)
--- NOTE | 2018-10-26 06:28 | NUR ---
Noted patient with pinkish to reddish urine output,some sediments noted.Solitario catheter change [id number] ,no resistant,pat tolerated procedure well.Afebrile.Will continue to monitor and will endorse.
[2018-10-26 06:57] VITALS: BP 122/68
[2018-10-26 07:58] VITALS: BP 125/70
[2018-10-26] MEDS: HYDROGEN PEROXIDE 480 ML BOTTLE TP SCH ×2 (09:00→21:15)
[2018-10-26] MEDS: ACIDOPHILUS/BULGARICUS 1 EACH TAB.CHEW GT SCH ×2 (09:41→17:00)
[2018-10-26] MEDS: LEVETIRACETAM SOL (5 ML) 100 MG/ML UDC GT SCH ×2 (09:41→21:14)
[2018-10-26] MEDS: MULTIVIT W/MINERALS 1 TAB TABLET GT SCH (09:41)
[2018-10-26] MEDS: DOCUSATE SODIUM LIQ 100 MG/10 ML UDC GT SCH ×2 (09:41→17:00)
[2018-10-26] MEDS: FERROUS SULFATE - FOR SA ONLY 330 MG/7.5 ML UDC GT SCH (09:41)
[2018-10-26] MEDS: ASCORBIC ACID 500 MG TABLET GT SCH (09:42)
[2018-10-26] MEDS: ACETAMINOPHEN 650 MG/20 ML UDC- SA PATIENTS-PAIN ONLY GT SCH ×2 (09:42→21:14)
[2018-10-26] MEDS: ZINC SULFATE 220 MG CAPSULE GT SCH (09:42)
[2018-10-26] MEDS: CLOTRIMAZOLE 1% CREAM 24 GM TUBE TP SCH ×2 (10:15→21:15)
[2018-10-26] MEDS: THERAHONEY GEL 1.5 OZ TUBE TP SCH ×2 (10:15→21:15)
[2018-10-26] MEDS: ZINC OXIDE 30 GM TUBE TP SCH ×2 (10:15→21:15)
[2018-10-26] MEDS: Z GUARD REMEDY 2 OZ OINT TP SCH ×2 (10:15→21:15)
[2018-10-26 12:00] VITALS: BP 120/80
--- NOTE | 2018-10-26 15:21 | NUR ---
INTERDISCIPLINARY TEAM CONFERENCE (IDT) was held today. The patient's daughter, Kelly Ordaz [phone] was not able to attend today's IDT meeting. Dr. Capone and the interdisciplinary team reviewed the current plan of care in detail. Orders as well as treatment and medications were reviewed. No new orders were given. Charge nurse, Janice noted that the current treatment on left buttocks will remain the same. Per Janice, the patient's labs were ordered and results were within normal range. No new orders were given.
[2018-10-26 18:00] VITALS: BP 121/62
[2018-10-26] MEDS: GLUCERNA 1.2 1,000 ML BOTTLE GT PRN (18:23)
[2018-10-26] MEDS: ENOXAPARIN SODIUM 40 MG/0.4 ML DISP.SYRIN SQ SCH (21:14)
[2018-10-26] MEDS: ATORVASTATIN 10 MG TABLET GT SCH (21:15)
[2018-10-26 21:28] VITALS: BP 120/65
[2018-10-26] MEDS: INSULIN GLARGINE, 100 UNIT/ML CARTRIDGE SQ SCH (22:00)
[2018-10-27] VITALS (7 sets, daily range): BP systolic 110–133; BP diastolic 59–86
[2018-10-27] MEDS: IPRATROPIUM NEB FS 0.5 MG/2.5 ML AMPUL.NEB NEB SCH ×5 (01:33→19:51)
[2018-10-27] MEDS: ALBUTEROL FS 2.5 MG/3 ML VIAL.NEB NEB SCH ×4 (01:34→19:51)
[2018-10-27] MEDS: DILTIAZEM HCL 30 MG TABLET GT SCH ×3 (05:41→17:04)
[2018-10-27] MEDS: PANTOPRAZOLE 40 MG/PACK PACK GT SCH (05:41)
[2018-10-27] MEDS: BLOOD SUGAR DIAGNOSTIC 1 EACH STRIP IN SCH ×3 (05:41→17:11)
[2018-10-27] MEDS: INSULIN ASPART/LISPRO 100 UNIT/ML CARTRIDGE SQ PRN ×3 (05:44→17:13)
[2018-10-27] MEDS: DOCUSATE SODIUM LIQ 100 MG/10 ML UDC GT SCH ×2 (08:41→17:04)
[2018-10-27] MEDS: LEVETIRACETAM SOL (5 ML) 100 MG/ML UDC GT SCH ×2 (08:42→21:47)
[2018-10-27] MEDS: MULTIVIT W/MINERALS 1 TAB TABLET GT SCH (08:42)
[2018-10-27] MEDS: ACIDOPHILUS/BULGARICUS 1 EACH TAB.CHEW GT SCH ×2 (08:42→17:04)
[2018-10-27] MEDS: FERROUS SULFATE - FOR SA ONLY 330 MG/7.5 ML UDC GT SCH (08:42)
[2018-10-27] MEDS: ACETAMINOPHEN 650 MG/20 ML UDC- SA PATIENTS-PAIN ONLY GT SCH ×2 (08:43→21:50)
[2018-10-27] MEDS: ASCORBIC ACID 500 MG TABLET GT SCH (08:43)
[2018-10-27] MEDS: ZINC SULFATE 220 MG CAPSULE GT SCH (08:44)
[2018-10-27] MEDS: GLUCERNA 1.2 1,000 ML BOTTLE GT PRN (08:51)
[2018-10-27] MEDS: Z GUARD REMEDY 2 OZ OINT TP SCH ×2 (09:43→21:51)
[2018-10-27] MEDS: THERAHONEY GEL 1.5 OZ TUBE TP SCH ×2 (09:43→21:51)
[2018-10-27] MEDS: CLOTRIMAZOLE 1% CREAM 24 GM TUBE TP SCH ×2 (09:43→21:50)
[2018-10-27] MEDS: ZINC OXIDE 30 GM TUBE TP SCH ×2 (09:43→21:51)
[2018-10-27] MEDS: HYDROGEN PEROXIDE 480 ML BOTTLE TP SCH ×2 (12:31→21:50)
[2018-10-27] MEDS: ATORVASTATIN 10 MG TABLET GT SCH (21:51)
[2018-10-27] MEDS: ENOXAPARIN SODIUM 40 MG/0.4 ML DISP.SYRIN SQ SCH (21:58)
[2018-10-27] MEDS: INSULIN GLARGINE, 100 UNIT/ML CARTRIDGE SQ SCH (21:59)
--- NOTE | 2018-10-27 22:01 | NUR ---
EXTRACTION MACHINE OPERATOR NOTES LANTUS 12 UNITS GIVEN JASKARAN SQ ORDERED ON LEFT DELTOID, WITNESS BY NURSE CARLYN . BLOOD SUGAR 203
[2018-10-28] MEDS: BLOOD SUGAR DIAGNOSTIC 1 EACH STRIP IN SCH ×4 (00:40→18:05)
[2018-10-28] MEDS: INSULIN ASPART/LISPRO 100 UNIT/ML CARTRIDGE SQ PRN ×4 (00:46→18:08)
[2018-10-28] MEDS: DILTIAZEM HCL 30 MG TABLET GT SCH ×4 (00:51→18:05)
[2018-10-28 01:00] VITALS: BP 121/65
[2018-10-28] MEDS: ALBUTEROL FS 2.5 MG/3 ML VIAL.NEB NEB SCH ×4 (01:56→20:13)
[2018-10-28] MEDS: IPRATROPIUM NEB FS 0.5 MG/2.5 ML AMPUL.NEB NEB SCH ×4 (01:56→20:13)
[2018-10-28] MEDS: GLUCERNA 1.2 1,000 ML BOTTLE GT PRN (02:07)
[2018-10-28 06:00] VITALS: BP 110/74
[2018-10-28] MEDS: PANTOPRAZOLE 40 MG/PACK PACK GT SCH (06:16)
[2018-10-28 07:33] VITALS: BP 136/52
[2018-10-28] MEDS: ZINC OXIDE 30 GM TUBE TP SCH ×2 (09:00→21:21)
[2018-10-28] MEDS: ZINC SULFATE 220 MG CAPSULE GT SCH (09:00)
[2018-10-28] MEDS: ACETAMINOPHEN 650 MG/20 ML UDC- SA PATIENTS-PAIN ONLY GT SCH ×2 (09:00→21:20)
[2018-10-28] MEDS: Z GUARD REMEDY 2 OZ OINT TP SCH ×2 (09:00→21:21)
[2018-10-28] MEDS: LEVETIRACETAM SOL (5 ML) 100 MG/ML UDC GT SCH ×2 (09:00→21:20)
[2018-10-28] MEDS: CLOTRIMAZOLE 1% CREAM 24 GM TUBE TP SCH ×2 (09:00→21:21)
[2018-10-28] MEDS: HYDROGEN PEROXIDE 480 ML BOTTLE TP SCH ×2 (09:00→21:14)
[2018-10-28] MEDS: MULTIVIT W/MINERALS 1 TAB TABLET GT SCH (09:00)
[2018-10-28] MEDS: ASCORBIC ACID 500 MG TABLET GT SCH (09:00)
[2018-10-28] MEDS: FERROUS SULFATE - FOR SA ONLY 330 MG/7.5 ML UDC GT SCH (09:00)
[2018-10-28] MEDS: THERAHONEY GEL 1.5 OZ TUBE TP SCH ×2 (09:00→21:21)
[2018-10-28] MEDS: DOCUSATE SODIUM LIQ 100 MG/10 ML UDC GT SCH ×2 (09:00→17:00)
[2018-10-28] MEDS: ACIDOPHILUS/BULGARICUS 1 EACH TAB.CHEW GT SCH ×2 (09:00→17:00)
[2018-10-28 18:56] VITALS: BP 104/66
[2018-10-28 20:22] VITALS: BP 127/73
[2018-10-28] MEDS: ATORVASTATIN 10 MG TABLET GT SCH (21:21)
[2018-10-28] MEDS: ENOXAPARIN SODIUM 40 MG/0.4 ML DISP.SYRIN SQ SCH (21:21)
[2018-10-28] MEDS: INSULIN GLARGINE, 100 UNIT/ML CARTRIDGE SQ SCH (21:22)
--- NOTE | 2018-10-28 21:23 | NUR ---
RT PATIENT RECEIVED ON 28% COOL AEROSOL. PATIENT TOLERATED CURRENT OXYGEN THERAPY. PATIENT STABLE AT THIS TIME. TRACH TUBE PATENT AND SECURED. WILL CONTINUE TO MONITOR. Addendum: 10/28/18 at 2123 by SHYANN BARRETT RT Amended: Links added.
[2018-10-29 00:33] VITALS: BP 109/70
[2018-10-29] MEDS: BLOOD SUGAR DIAGNOSTIC 1 EACH STRIP IN SCH ×4 (00:34→17:24)
[2018-10-29] MEDS: DILTIAZEM HCL 30 MG TABLET GT SCH ×4 (00:34→18:33)
[2018-10-29] MEDS: INSULIN ASPART/LISPRO 100 UNIT/ML CARTRIDGE SQ PRN ×4 (00:35→17:26)
[2018-10-29] MEDS: ALBUTEROL FS 2.5 MG/3 ML VIAL.NEB NEB SCH ×4 (01:34→19:26)
[2018-10-29] MEDS: IPRATROPIUM NEB FS 0.5 MG/2.5 ML AMPUL.NEB NEB SCH ×4 (01:34→19:26)
[2018-10-29] MEDS: PANTOPRAZOLE 40 MG/PACK PACK GT SCH (05:56)
[2018-10-29 06:16] VITALS: BP 116/62
[2018-10-29 08:02] VITALS: BP 111/39
[2018-10-29] MEDS: ACETAMINOPHEN 650 MG/20 ML UDC- SA PATIENTS-PAIN ONLY GT SCH ×2 (09:00→20:38)
[2018-10-29] MEDS: ASCORBIC ACID 500 MG TABLET GT SCH (09:00)
[2018-10-29] MEDS: CLOTRIMAZOLE 1% CREAM 24 GM TUBE TP SCH ×2 (09:00→20:39)
[2018-10-29] MEDS: ZINC OXIDE 30 GM TUBE TP SCH ×2 (09:00→20:39)
[2018-10-29] MEDS: Z GUARD REMEDY 2 OZ OINT TP SCH ×2 (09:00→20:39)
[2018-10-29] MEDS: THERAHONEY GEL 1.5 OZ TUBE TP SCH ×2 (09:00→20:39)
[2018-10-29] MEDS: ACIDOPHILUS/BULGARICUS 1 EACH TAB.CHEW GT SCH ×2 (09:00→16:53)
[2018-10-29] MEDS: LEVETIRACETAM SOL (5 ML) 100 MG/ML UDC GT SCH ×2 (09:00→20:38)
[2018-10-29] MEDS: FERROUS SULFATE - FOR SA ONLY 330 MG/7.5 ML UDC GT SCH (09:00)
[2018-10-29] MEDS: MULTIVIT W/MINERALS 1 TAB TABLET GT SCH (09:00)
[2018-10-29] MEDS: DOCUSATE SODIUM LIQ 100 MG/10 ML UDC GT SCH ×2 (09:00→16:53)
[2018-10-29] MEDS: ZINC SULFATE 220 MG CAPSULE GT SCH (09:00)
[2018-10-29] MEDS: HYDROGEN PEROXIDE 480 ML BOTTLE TP SCH ×2 (09:29→20:39)
[2018-10-29 12:43] VITALS: BP 138/76
[2018-10-29] MEDS: GLUCERNA 1.2 1,000 ML BOTTLE GT PRN ×2 (15:03→15:04)
[2018-10-29 18:37] VITALS: BP 148/78
[2018-10-29 19:49] VITALS: BP 144/80
[2018-10-29] MEDS: ENOXAPARIN SODIUM 40 MG/0.4 ML DISP.SYRIN SQ SCH (20:39)
[2018-10-29] MEDS: ATORVASTATIN 10 MG TABLET GT SCH (21:10)
[2018-10-29] MEDS: INSULIN GLARGINE, 100 UNIT/ML CARTRIDGE SQ SCH (21:21)
[2018-10-30] MEDS: BLOOD SUGAR DIAGNOSTIC 1 EACH STRIP IN SCH ×5 (00:17→23:55)
[2018-10-30] MEDS: DILTIAZEM HCL 30 MG TABLET GT SCH ×5 (00:17→23:55)
[2018-10-30] MEDS: INSULIN ASPART/LISPRO 100 UNIT/ML CARTRIDGE SQ PRN ×5 (00:18→23:56)
[2018-10-30 01:55] VITALS: BP 123/75
[2018-10-30] MEDS: IPRATROPIUM NEB FS 0.5 MG/2.5 ML AMPUL.NEB NEB SCH ×4 (02:16→20:15)
[2018-10-30] MEDS: ALBUTEROL FS 2.5 MG/3 ML VIAL.NEB NEB SCH ×4 (02:16→20:15)
[2018-10-30] MEDS: PANTOPRAZOLE 40 MG/PACK PACK GT SCH (06:12)
[2018-10-30 06:13] VITALS: BP 129/72
[2018-10-30 08:05] VITALS: BP 105/62
[2018-10-30] MEDS: ASCORBIC ACID 500 MG TABLET GT SCH (09:00)
[2018-10-30] MEDS: ACETAMINOPHEN 650 MG/20 ML UDC- SA PATIENTS-PAIN ONLY GT SCH ×2 (09:00→21:14)
[2018-10-30] MEDS: CLOTRIMAZOLE 1% CREAM 24 GM TUBE TP SCH ×2 (09:00→21:15)
[2018-10-30] MEDS: FERROUS SULFATE - FOR SA ONLY 330 MG/7.5 ML UDC GT SCH (09:00)
[2018-10-30] MEDS: HYDROGEN PEROXIDE 480 ML BOTTLE TP SCH ×2 (09:00→21:15)
[2018-10-30] MEDS: LEVETIRACETAM SOL (5 ML) 100 MG/ML UDC GT SCH ×2 (09:00→21:14)
[2018-10-30] MEDS: MULTIVIT W/MINERALS 1 TAB TABLET GT SCH (09:00)
[2018-10-30] MEDS: DOCUSATE SODIUM LIQ 100 MG/10 ML UDC GT SCH ×2 (09:00→17:00)
[2018-10-30] MEDS: THERAHONEY GEL 1.5 OZ TUBE TP SCH ×2 (09:00→21:15)
[2018-10-30] MEDS: Z GUARD REMEDY 2 OZ OINT TP SCH ×2 (09:00→21:15)
[2018-10-30] MEDS: ZINC OXIDE 30 GM TUBE TP SCH ×2 (09:00→21:15)
[2018-10-30] MEDS: ZINC SULFATE 220 MG CAPSULE GT SCH (09:00)
[2018-10-30] MEDS: ACIDOPHILUS/BULGARICUS 1 EACH TAB.CHEW GT SCH ×2 (09:00→17:00)
--- NOTE | 2018-10-30 09:00 | NUR ---
Seen and examined by Dr. Capone, no new order given.
[2018-10-30 18:10] VITALS: BP 126/73
[2018-10-30 20:50] VITALS: BP 111/67
[2018-10-30] MEDS: ENOXAPARIN SODIUM 40 MG/0.4 ML DISP.SYRIN SQ SCH (21:15)
[2018-10-30] MEDS: INSULIN GLARGINE, 100 UNIT/ML CARTRIDGE SQ SCH (21:15)
[2018-10-30] MEDS: ATORVASTATIN 10 MG TABLET GT SCH (21:15)
[2018-10-31 00:11] VITALS: BP 122/69
[2018-10-31] MEDS: IPRATROPIUM NEB FS 0.5 MG/2.5 ML AMPUL.NEB NEB SCH ×4 (00:49→20:12)
[2018-10-31] MEDS: ALBUTEROL FS 2.5 MG/3 ML VIAL.NEB NEB SCH ×4 (00:49→20:12)
[2018-10-31 06:10] VITALS: BP 110/60
[2018-10-31] MEDS: DILTIAZEM HCL 30 MG TABLET GT SCH ×4 (06:11→23:37)
[2018-10-31] MEDS: PANTOPRAZOLE 40 MG/PACK PACK GT SCH (06:11)
[2018-10-31] MEDS: BLOOD SUGAR DIAGNOSTIC 1 EACH STRIP IN SCH ×4 (06:11→23:37)
[2018-10-31] MEDS: INSULIN ASPART/LISPRO 100 UNIT/ML CARTRIDGE SQ PRN ×4 (06:12→23:40)
[2018-10-31 07:54] VITALS: BP 108/55
[2018-10-31] MEDS: DOCUSATE SODIUM LIQ 100 MG/10 ML UDC GT SCH ×2 (08:55→17:51)
[2018-10-31] MEDS: FERROUS SULFATE - FOR SA ONLY 330 MG/7.5 ML UDC GT SCH (08:55)
[2018-10-31] MEDS: LEVETIRACETAM SOL (5 ML) 100 MG/ML UDC GT SCH ×2 (08:57→20:57)
[2018-10-31] MEDS: ACIDOPHILUS/BULGARICUS 1 EACH TAB.CHEW GT SCH ×2 (08:58→17:51)
[2018-10-31] MEDS: MULTIVIT W/MINERALS 1 TAB TABLET GT SCH (08:58)
[2018-10-31] MEDS: ACETAMINOPHEN 650 MG/20 ML UDC- SA PATIENTS-PAIN ONLY GT SCH ×2 (08:59→20:57)
[2018-10-31] MEDS: ASCORBIC ACID 500 MG TABLET GT SCH (08:59)
[2018-10-31] MEDS: ZINC SULFATE 220 MG CAPSULE GT SCH (08:59)
[2018-10-31] MEDS: Z GUARD REMEDY 2 OZ OINT TP SCH ×2 (10:00→20:59)
--- NOTE | 2018-10-31 11:04 | NUR ---
ORACIO contacted patient's responsible libertarian, Kaylincisco Wong [phone] to inform Kelly that the IDT meeting was held 10/26/18. Per Kelly, she would like a copy of IDT notes. ORACIO informed Kelly that she can ask for a copy upon visiting pt. Kelly was agreeable to plan. Kelly asked for SW e-mail for easier communication with SW. ORACIO gave Kelly NARAYANAN's email and informed Kelly that any patient information may not be exchanged over e-mail due to HIPAA regulations. Kelly expressed understanding. ORACIO informed Kelly that she may gather patient updates by calling nursing station ([phone]). Kelly was agreeable to contacting nursing station for pt. updates.
[2018-10-31 13:00] VITALS: BP 100/60
[2018-10-31 18:00] VITALS: BP 134/76
[2018-10-31 19:59] VITALS: BP 122/65
[2018-10-31] MEDS: HYDROGEN PEROXIDE 480 ML BOTTLE TP SCH (20:41)
[2018-10-31] MEDS: ENOXAPARIN SODIUM 40 MG/0.4 ML DISP.SYRIN SQ SCH (20:59)
[2018-10-31] MEDS: ATORVASTATIN 10 MG TABLET GT SCH (21:01)
[2018-10-31] MEDS: INSULIN GLARGINE, 100 UNIT/ML CARTRIDGE SQ SCH (21:32)
[2018-11-01] VITALS: BP 129/79
[2018-11-01] MEDS: GLUCERNA 1.2 1,000 ML BOTTLE GT PRN (00:17)
[2018-11-01] MEDS: IPRATROPIUM NEB FS 0.5 MG/2.5 ML AMPUL.NEB NEB SCH ×4 (01:15→19:53)
[2018-11-01] MEDS: ALBUTEROL FS 2.5 MG/3 ML VIAL.NEB NEB SCH ×4 (01:15→19:53)
[2018-11-01] MEDS: DILTIAZEM HCL 30 MG TABLET GT SCH ×3 (05:24→17:26)
[2018-11-01] MEDS: PANTOPRAZOLE 40 MG/PACK PACK GT SCH (05:26)
[2018-11-01] MEDS: BLOOD SUGAR DIAGNOSTIC 1 EACH STRIP IN SCH ×3 (05:30→18:17)
[2018-11-01] MEDS: INSULIN ASPART/LISPRO 100 UNIT/ML CARTRIDGE SQ PRN ×3 (05:31→18:17)
[2018-11-01 06:00] VITALS: BP 133/70
[2018-11-01 07:33] VITALS: BP 114/72
[2018-11-01] MEDS: HYDROGEN PEROXIDE 480 ML BOTTLE TP SCH ×2 (09:45→21:48)
[2018-11-01] MEDS: DOCUSATE SODIUM LIQ 100 MG/10 ML UDC GT SCH ×2 (09:52→17:26)
[2018-11-01] MEDS: ACIDOPHILUS/BULGARICUS 1 EACH TAB.CHEW GT SCH ×2 (09:52→17:26)
[2018-11-01] MEDS: MULTIVIT W/MINERALS 1 TAB TABLET GT SCH (09:52)
[2018-11-01] MEDS: LEVETIRACETAM SOL (5 ML) 100 MG/ML UDC GT SCH ×2 (09:52→21:47)
[2018-11-01] MEDS: FERROUS SULFATE - FOR SA ONLY 330 MG/7.5 ML UDC GT SCH (09:52)
[2018-11-01] MEDS: ZINC SULFATE 220 MG CAPSULE GT SCH (09:53)
[2018-11-01] MEDS: ASCORBIC ACID 500 MG TABLET GT SCH (09:53)
[2018-11-01] MEDS: ACETAMINOPHEN 650 MG/20 ML UDC- SA PATIENTS-PAIN ONLY GT SCH ×2 (09:53→21:47)
[2018-11-01] MEDS: Z GUARD REMEDY 2 OZ OINT TP SCH ×2 (10:20→21:48)
[2018-11-01 12:00] VITALS: BP 131/64
[2018-11-01 19:13] VITALS: BP 144/79
[2018-11-01 19:39] VITALS: BP 115/75
[2018-11-01] MEDS: THERAHONEY GEL 1.5 OZ TUBE TP SCH (21:48)
[2018-11-01] MEDS: ENOXAPARIN SODIUM 40 MG/0.4 ML DISP.SYRIN SQ SCH (21:48)
[2018-11-01] MEDS: CLOTRIMAZOLE 1% 15 GM TUBE TP SCH (21:48)
[2018-11-01] MEDS: ATORVASTATIN 10 MG TABLET GT SCH (21:49)
[2018-11-01] MEDS: INSULIN GLARGINE, 100 UNIT/ML CARTRIDGE SQ SCH (21:49)
[2018-11-02] VITALS (8 sets, daily range): BP systolic 121–145; BP diastolic 75–96
[2018-11-02] MEDS: BLOOD SUGAR DIAGNOSTIC 1 EACH STRIP IN SCH ×5 (00:08→23:41)
[2018-11-02] MEDS: DILTIAZEM HCL 30 MG TABLET GT SCH ×4 (00:08→17:26)
[2018-11-02] MEDS: INSULIN ASPART/LISPRO 100 UNIT/ML CARTRIDGE SQ PRN ×4 (00:10→18:50)
[2018-11-02] MEDS: IPRATROPIUM NEB FS 0.5 MG/2.5 ML AMPUL.NEB NEB SCH ×4 (02:25→19:52)
[2018-11-02] MEDS: ALBUTEROL FS 2.5 MG/3 ML VIAL.NEB NEB SCH ×4 (02:25→19:52)
[2018-11-02] MEDS: PANTOPRAZOLE 40 MG/PACK PACK GT SCH (05:31)
[2018-11-02] MEDS: GLUCERNA 1.2 1,000 ML BOTTLE GT PRN ×2 (05:42→23:46)
[2018-11-02] MEDS: DOCUSATE SODIUM LIQ 100 MG/10 ML UDC GT SCH ×2 (08:17→17:24)
[2018-11-02] MEDS: FERROUS SULFATE - FOR SA ONLY 330 MG/7.5 ML UDC GT SCH (08:19)
[2018-11-02] MEDS: ACIDOPHILUS/BULGARICUS 1 EACH TAB.CHEW GT SCH ×2 (08:20→17:24)
[2018-11-02] MEDS: ASCORBIC ACID 500 MG TABLET GT SCH (08:20)
[2018-11-02] MEDS: LEVETIRACETAM SOL (5 ML) 100 MG/ML UDC GT SCH ×2 (08:20→20:53)
[2018-11-02] MEDS: ZINC SULFATE 220 MG CAPSULE GT SCH (08:21)
[2018-11-02] MEDS: ACETAMINOPHEN 650 MG/20 ML UDC- SA PATIENTS-PAIN ONLY GT SCH ×2 (08:24→20:55)
[2018-11-02] MEDS: Z GUARD REMEDY 2 OZ OINT TP SCH ×2 (09:00→21:46)
[2018-11-02] MEDS: CLOTRIMAZOLE 1% 15 GM TUBE TP SCH ×2 (09:00→21:47)
[2018-11-02] MEDS: THERAHONEY GEL 1.5 OZ TUBE TP SCH ×2 (09:00→21:46)
[2018-11-02] MEDS: MULTIVIT W/MINERALS 1 TAB TABLET GT SCH (09:00)
[2018-11-02] MEDS: HYDROGEN PEROXIDE 480 ML BOTTLE TP SCH ×2 (09:50→21:00)
[2018-11-02] MEDS: ENOXAPARIN SODIUM 40 MG/0.4 ML DISP.SYRIN SQ SCH (21:00)
[2018-11-02] MEDS: ATORVASTATIN 10 MG TABLET GT SCH (21:13)
[2018-11-02] MEDS: INSULIN GLARGINE, 100 UNIT/ML CARTRIDGE SQ SCH (22:00)
[2018-11-03] VITALS: BP 130/78
[2018-11-03] MEDS: DILTIAZEM HCL 30 MG TABLET GT SCH ×4 (00:13→17:38)
[2018-11-03] MEDS: INSULIN ASPART/LISPRO 100 UNIT/ML CARTRIDGE SQ PRN ×4 (00:43→17:39)
[2018-11-03] MEDS: ALBUTEROL FS 2.5 MG/3 ML VIAL.NEB NEB SCH ×4 (02:23→19:42)
[2018-11-03] MEDS: IPRATROPIUM NEB FS 0.5 MG/2.5 ML AMPUL.NEB NEB SCH ×4 (02:23→19:42)
[2018-11-03] MEDS: PANTOPRAZOLE 40 MG/PACK PACK GT SCH (05:26)
[2018-11-03] MEDS: BLOOD SUGAR DIAGNOSTIC 1 EACH STRIP IN SCH ×3 (06:22→17:38)
[2018-11-03 06:32] VITALS: BP 140/78
[2018-11-03 07:56] VITALS: BP 126/86
[2018-11-03] MEDS: HYDROGEN PEROXIDE 480 ML BOTTLE TP SCH ×2 (09:00→21:41)
[2018-11-03] MEDS: ACETAMINOPHEN 650 MG/20 ML UDC- SA PATIENTS-PAIN ONLY GT SCH ×2 (09:06→21:40)
[2018-11-03] MEDS: MULTIVIT W/MINERALS 1 TAB TABLET GT SCH (09:06)
[2018-11-03] MEDS: LEVETIRACETAM SOL (5 ML) 100 MG/ML UDC GT SCH ×2 (09:06→21:40)
[2018-11-03] MEDS: FERROUS SULFATE - FOR SA ONLY 330 MG/7.5 ML UDC GT SCH (09:06)
[2018-11-03] MEDS: ACIDOPHILUS/BULGARICUS 1 EACH TAB.CHEW GT SCH ×2 (09:06→17:38)
[2018-11-03] MEDS: DOCUSATE SODIUM LIQ 100 MG/10 ML UDC GT SCH ×2 (09:06→17:38)
[2018-11-03] MEDS: ASCORBIC ACID 500 MG TABLET GT SCH (09:07)
[2018-11-03] MEDS: ZINC SULFATE 220 MG CAPSULE GT SCH (09:07)
[2018-11-03] MEDS: Z GUARD REMEDY 2 OZ OINT TP SCH ×2 (10:06→21:42)
[2018-11-03] MEDS: THERAHONEY GEL 1.5 OZ TUBE TP SCH ×2 (10:06→21:42)
[2018-11-03] MEDS: CLOTRIMAZOLE 1% 15 GM TUBE TP SCH ×2 (10:06→21:41)
[2018-11-03 12:00] VITALS: BP 152/89
[2018-11-03] MEDS: GLUCERNA 1.2 1,000 ML BOTTLE GT PRN (13:50)
[2018-11-03 18:00] VITALS: BP 111/64
[2018-11-03 19:42] VITALS: BP 124/75
[2018-11-03] MEDS: ENOXAPARIN SODIUM 40 MG/0.4 ML DISP.SYRIN SQ SCH (21:40)
[2018-11-03] MEDS: INSULIN GLARGINE, 100 UNIT/ML CARTRIDGE SQ SCH (21:42)
[2018-11-03] MEDS: ATORVASTATIN 10 MG TABLET GT SCH (21:42)
[2018-11-04] VITALS: BP 120/64
[2018-11-04] MEDS: DILTIAZEM HCL 30 MG TABLET GT SCH ×4 (00:20→18:00)
[2018-11-04] MEDS: BLOOD SUGAR DIAGNOSTIC 1 EACH STRIP IN SCH ×4 (00:20→17:55)
[2018-11-04] MEDS: INSULIN ASPART/LISPRO 100 UNIT/ML CARTRIDGE SQ PRN ×4 (00:21→17:57)
[2018-11-04] MEDS: ALBUTEROL FS 2.5 MG/3 ML VIAL.NEB NEB SCH ×4 (01:54→19:30)
[2018-11-04] MEDS: IPRATROPIUM NEB FS 0.5 MG/2.5 ML AMPUL.NEB NEB SCH ×4 (01:54→19:30)
[2018-11-04] MEDS: PANTOPRAZOLE 40 MG/PACK PACK GT SCH (05:38)
[2018-11-04 06:00] VITALS: BP 160/69
[2018-11-04] MEDS: GLUCERNA 1.2 1,000 ML BOTTLE GT PRN (06:53)
[2018-11-04 08:06] VITALS: BP 121/69
[2018-11-04] MEDS: THERAHONEY GEL 1.5 OZ TUBE TP SCH ×2 (09:00→21:00)
[2018-11-04] MEDS: CLOTRIMAZOLE 1% 15 GM TUBE TP SCH ×2 (09:00→21:00)
[2018-11-04] MEDS: DOCUSATE SODIUM LIQ 100 MG/10 ML UDC GT SCH ×2 (09:00→17:00)
[2018-11-04] MEDS: LEVETIRACETAM SOL (5 ML) 100 MG/ML UDC GT SCH ×2 (09:00→21:00)
[2018-11-04] MEDS: ACETAMINOPHEN 650 MG/20 ML UDC- SA PATIENTS-PAIN ONLY GT SCH ×2 (09:00→21:00)
[2018-11-04] MEDS: ACIDOPHILUS/BULGARICUS 1 EACH TAB.CHEW GT SCH ×2 (09:00→17:00)
[2018-11-04] MEDS: Z GUARD REMEDY 2 OZ OINT TP SCH ×2 (09:00→21:00)
[2018-11-04] MEDS: FERROUS SULFATE - FOR SA ONLY 330 MG/7.5 ML UDC GT SCH (09:00)
[2018-11-04] MEDS: HYDROGEN PEROXIDE 480 ML BOTTLE TP SCH ×2 (09:00→21:00)
[2018-11-04] MEDS: ASCORBIC ACID 500 MG TABLET GT SCH (09:00)
[2018-11-04] MEDS: ZINC SULFATE 220 MG CAPSULE GT SCH (09:00)
[2018-11-04] MEDS: MULTIVIT W/MINERALS 1 TAB TABLET GT SCH (09:00)
[2018-11-04 16:21] VITALS: BP 139/70
[2018-11-04 19:14] VITALS: BP 127/75
[2018-11-04 19:30] VITALS: BP 129/80
[2018-11-04] MEDS: ENOXAPARIN SODIUM 40 MG/0.4 ML DISP.SYRIN SQ SCH (21:00)
[2018-11-04] MEDS: ATORVASTATIN 10 MG TABLET GT SCH (22:41)
[2018-11-04] MEDS: INSULIN GLARGINE, 100 UNIT/ML CARTRIDGE SQ SCH (22:44)
[2018-11-05] VITALS: BP 135/75
[2018-11-05] MEDS: BLOOD SUGAR DIAGNOSTIC 1 EACH STRIP IN SCH ×4 (00:39→17:57)
[2018-11-05] MEDS: DILTIAZEM HCL 30 MG TABLET GT SCH ×4 (00:39→17:57)
[2018-11-05] MEDS: INSULIN ASPART/LISPRO 100 UNIT/ML CARTRIDGE SQ PRN ×4 (00:41→18:00)
[2018-11-05] MEDS: IPRATROPIUM NEB FS 0.5 MG/2.5 ML AMPUL.NEB NEB SCH ×4 (01:53→19:38)
[2018-11-05] MEDS: ALBUTEROL FS 2.5 MG/3 ML VIAL.NEB NEB SCH ×4 (01:53→19:38)
[2018-11-05] MEDS: PANTOPRAZOLE 40 MG/PACK PACK GT SCH (05:35)
[2018-11-05 06:00] VITALS: BP 134/73
[2018-11-05] MEDS: CLOTRIMAZOLE 1% 15 GM TUBE TP SCH ×2 (09:00→21:17)
[2018-11-05] MEDS: THERAHONEY GEL 1.5 OZ TUBE TP SCH ×2 (09:00→21:17)
[2018-11-05] MEDS: ZINC SULFATE 220 MG CAPSULE GT SCH (09:00)
[2018-11-05] MEDS: Z GUARD REMEDY 2 OZ OINT TP SCH ×2 (09:00→21:17)
[2018-11-05] MEDS: ACETAMINOPHEN 650 MG/20 ML UDC- SA PATIENTS-PAIN ONLY GT SCH ×2 (09:00→21:15)
[2018-11-05] MEDS: ASCORBIC ACID 500 MG TABLET GT SCH (09:00)
[2018-11-05] MEDS: HYDROGEN PEROXIDE 480 ML BOTTLE TP SCH ×2 (09:00→21:17)
[2018-11-05] MEDS: DOCUSATE SODIUM LIQ 100 MG/10 ML UDC GT SCH ×2 (09:00→17:57)
[2018-11-05] MEDS: ACIDOPHILUS/BULGARICUS 1 EACH TAB.CHEW GT SCH ×2 (09:00→17:57)
[2018-11-05] MEDS: LEVETIRACETAM SOL (5 ML) 100 MG/ML UDC GT SCH ×2 (09:00→21:15)
[2018-11-05] MEDS: FERROUS SULFATE - FOR SA ONLY 330 MG/7.5 ML UDC GT SCH (09:00)
[2018-11-05] MEDS: MULTIVIT W/MINERALS 1 TAB TABLET GT SCH (09:00)
[2018-11-05 12:54] VITALS: BP 125/77
[2018-11-05] MEDS: GLUCERNA 1.2 1,000 ML BOTTLE GT PRN (16:11)
[2018-11-05 19:28] VITALS: BP 125/73
[2018-11-05 19:45] VITALS: BP 125/70
[2018-11-05] MEDS: ENOXAPARIN SODIUM 40 MG/0.4 ML DISP.SYRIN SQ SCH (21:17)
[2018-11-05] MEDS: ATORVASTATIN 10 MG TABLET GT SCH (21:19)
[2018-11-05] MEDS: INSULIN GLARGINE, 100 UNIT/ML CARTRIDGE SQ SCH (21:49)
[2018-11-06] VITALS: BP 125/70
[2018-11-06] MEDS: DILTIAZEM HCL 30 MG TABLET GT SCH ×5 (00:32→23:36)
[2018-11-06] MEDS: BLOOD SUGAR DIAGNOSTIC 1 EACH STRIP IN SCH ×5 (00:32→23:36)
[2018-11-06] MEDS: INSULIN ASPART/LISPRO 100 UNIT/ML CARTRIDGE SQ PRN ×4 (00:39→23:37)
[2018-11-06] MEDS: ALBUTEROL FS 2.5 MG/3 ML VIAL.NEB NEB SCH ×4 (01:15→19:37)
[2018-11-06] MEDS: IPRATROPIUM NEB FS 0.5 MG/2.5 ML AMPUL.NEB NEB SCH ×4 (01:15→19:37)
[2018-11-06 06:00] VITALS: BP 128/69
[2018-11-06] MEDS: PANTOPRAZOLE 40 MG/PACK PACK GT SCH (06:03)
[2018-11-06 07:50] VITALS: BP 139/77
[2018-11-06] MEDS: CLOTRIMAZOLE 1% 15 GM TUBE TP SCH ×2 (09:00→21:34)
[2018-11-06] MEDS: THERAHONEY GEL 1.5 OZ TUBE TP SCH ×2 (09:00→21:34)
[2018-11-06] MEDS: Z GUARD REMEDY 2 OZ OINT TP SCH ×2 (09:00→21:34)
[2018-11-06] MEDS: HYDROGEN PEROXIDE 480 ML BOTTLE TP SCH ×2 (09:22→21:00)
[2018-11-06] MEDS: DOCUSATE SODIUM LIQ 100 MG/10 ML UDC GT SCH ×2 (09:47→17:55)
[2018-11-06] MEDS: LEVETIRACETAM SOL (5 ML) 100 MG/ML UDC GT SCH ×2 (09:47→20:55)
[2018-11-06] MEDS: ACIDOPHILUS/BULGARICUS 1 EACH TAB.CHEW GT SCH ×2 (09:47→17:55)
[2018-11-06] MEDS: MULTIVIT W/MINERALS 1 TAB TABLET GT SCH (09:47)
[2018-11-06] MEDS: FERROUS SULFATE - FOR SA ONLY 330 MG/7.5 ML UDC GT SCH (09:47)
[2018-11-06] MEDS: ASCORBIC ACID 500 MG TABLET GT SCH (09:48)
[2018-11-06] MEDS: ACETAMINOPHEN 650 MG/20 ML UDC- SA PATIENTS-PAIN ONLY GT SCH ×2 (09:48→20:55)
[2018-11-06] MEDS: ZINC SULFATE 220 MG CAPSULE GT SCH (09:48)
[2018-11-06] MEDS: GLUCERNA 1.2 1,000 ML BOTTLE GT PRN (10:39)
[2018-11-06 12:00] VITALS: BP 122/88
[2018-11-06 18:00] VITALS: BP 113/55
[2018-11-06 20:35] VITALS: BP 130/73
[2018-11-06] MEDS: ENOXAPARIN SODIUM 40 MG/0.4 ML DISP.SYRIN SQ SCH (20:56)
[2018-11-06] MEDS: ATORVASTATIN 10 MG TABLET GT SCH (21:34)
[2018-11-06] MEDS: INSULIN GLARGINE, 100 UNIT/ML CARTRIDGE SQ SCH (21:35)
[2018-11-07 00:58] VITALS: BP 124/76
[2018-11-07] MEDS: IPRATROPIUM NEB FS 0.5 MG/2.5 ML AMPUL.NEB NEB SCH ×4 (02:11→20:26)
[2018-11-07] MEDS: ALBUTEROL FS 2.5 MG/3 ML VIAL.NEB NEB SCH ×4 (02:11→20:26)
[2018-11-07] MEDS: DILTIAZEM HCL 30 MG TABLET GT SCH ×4 (05:48→23:15)
[2018-11-07] MEDS: PANTOPRAZOLE 40 MG/PACK PACK GT SCH (05:48)
[2018-11-07] MEDS: BLOOD SUGAR DIAGNOSTIC 1 EACH STRIP IN SCH ×4 (06:05→23:15)
[2018-11-07] MEDS: INSULIN ASPART/LISPRO 100 UNIT/ML CARTRIDGE SQ PRN ×4 (06:06→23:16)
[2018-11-07 06:43] VITALS: BP 128/80
[2018-11-07 07:30] VITALS: BP 140/69
[2018-11-07] MEDS: HYDROGEN PEROXIDE 480 ML BOTTLE TP SCH ×2 (09:00→21:00)
[2018-11-07] MEDS: ACETAMINOPHEN 650 MG/20 ML UDC- SA PATIENTS-PAIN ONLY GT SCH ×2 (09:06→21:07)
[2018-11-07] MEDS: ACIDOPHILUS/BULGARICUS 1 EACH TAB.CHEW GT SCH ×2 (09:06→17:53)
[2018-11-07] MEDS: ZINC SULFATE 220 MG CAPSULE GT SCH (09:06)
[2018-11-07] MEDS: FERROUS SULFATE - FOR SA ONLY 330 MG/7.5 ML UDC GT SCH (09:06)
[2018-11-07] MEDS: MULTIVIT W/MINERALS 1 TAB TABLET GT SCH (09:06)
[2018-11-07] MEDS: DOCUSATE SODIUM LIQ 100 MG/10 ML UDC GT SCH ×2 (09:06→17:53)
[2018-11-07] MEDS: LEVETIRACETAM SOL (5 ML) 100 MG/ML UDC GT SCH ×2 (09:06→21:07)
[2018-11-07] MEDS: ASCORBIC ACID 500 MG TABLET GT SCH (09:06)
[2018-11-07] MEDS: THERAHONEY GEL 1.5 OZ TUBE TP SCH ×2 (09:30→21:48)
[2018-11-07] MEDS: CLOTRIMAZOLE 1% 15 GM TUBE TP SCH ×2 (09:30→21:48)
[2018-11-07] MEDS: Z GUARD REMEDY 2 OZ OINT TP SCH ×2 (09:30→21:48)
[2018-11-07 12:00] VITALS: BP 124/74
--- NOTE | 2018-11-07 15:27 | NUR ---
Per Charge Nurse Annita request, ORACIO contacted patients daughter/Conservator, Kelly Wong at [phone] as Kelly contacted nursing station earlier to speak to SW. The call went to voicemail and SW left contact information.
[2018-11-07 18:00] VITALS: BP 120/70
[2018-11-07] MEDS: GLUCERNA 1.2 1,000 ML BOTTLE GT PRN (18:39)
[2018-11-07 19:43] VITALS: BP 120/71
[2018-11-07] MEDS: ATORVASTATIN 10 MG TABLET GT SCH (21:08)
[2018-11-07] MEDS: ENOXAPARIN SODIUM 40 MG/0.4 ML DISP.SYRIN SQ SCH (21:08)
[2018-11-07] MEDS: INSULIN GLARGINE, 100 UNIT/ML CARTRIDGE SQ SCH (22:05)
[2018-11-08] VITALS (7 sets, daily range): BP systolic 120–134; BP diastolic 65–88
[2018-11-08] MEDS: ALBUTEROL FS 2.5 MG/3 ML VIAL.NEB NEB SCH ×4 (01:51→20:03)
[2018-11-08] MEDS: IPRATROPIUM NEB FS 0.5 MG/2.5 ML AMPUL.NEB NEB SCH ×4 (01:51→20:03)
[2018-11-08] MEDS: PANTOPRAZOLE 40 MG/PACK PACK GT SCH (05:59)
[2018-11-08] MEDS: DILTIAZEM HCL 30 MG TABLET GT SCH ×3 (05:59→17:36)
[2018-11-08] MEDS: BLOOD SUGAR DIAGNOSTIC 1 EACH STRIP IN SCH ×3 (06:20→17:36)
[2018-11-08] MEDS: INSULIN ASPART/LISPRO 100 UNIT/ML CARTRIDGE SQ PRN ×3 (06:23→17:37)
[2018-11-08] MEDS: CLOTRIMAZOLE 1% 15 GM TUBE TP SCH ×2 (09:30→21:26)
[2018-11-08] MEDS: THERAHONEY GEL 1.5 OZ TUBE TP SCH ×2 (09:30→21:26)
[2018-11-08] MEDS: Z GUARD REMEDY 2 OZ OINT TP SCH ×2 (09:30→21:26)
[2018-11-08] MEDS: FERROUS SULFATE - FOR SA ONLY 330 MG/7.5 ML UDC GT SCH (09:36)
[2018-11-08] MEDS: MULTIVIT W/MINERALS 1 TAB TABLET GT SCH (09:36)
[2018-11-08] MEDS: LEVETIRACETAM SOL (5 ML) 100 MG/ML UDC GT SCH ×2 (09:36→21:25)
[2018-11-08] MEDS: DOCUSATE SODIUM LIQ 100 MG/10 ML UDC GT SCH ×2 (09:36→17:35)
[2018-11-08] MEDS: ACIDOPHILUS/BULGARICUS 1 EACH TAB.CHEW GT SCH ×2 (09:36→17:35)
[2018-11-08] MEDS: ASCORBIC ACID 500 MG TABLET GT SCH (09:40)
[2018-11-08] MEDS: ZINC SULFATE 220 MG CAPSULE GT SCH (09:40)
[2018-11-08] MEDS: ACETAMINOPHEN 650 MG/20 ML UDC- SA PATIENTS-PAIN ONLY GT SCH ×2 (09:40→21:25)
[2018-11-08] MEDS: HYDROGEN PEROXIDE 480 ML BOTTLE TP SCH ×2 (09:47→21:26)
[2018-11-08] MEDS: GLUCERNA 1.2 1,000 ML BOTTLE GT PRN (12:21)
--- NOTE | 2018-11-08 21:00 | NUR ---
seen by MILLY Bender no new orders.
[2018-11-08] MEDS: ENOXAPARIN SODIUM 40 MG/0.4 ML DISP.SYRIN SQ SCH (21:26)
[2018-11-08] MEDS: ATORVASTATIN 10 MG TABLET GT SCH (21:26)
[2018-11-08] MEDS: INSULIN GLARGINE, 100 UNIT/ML CARTRIDGE SQ SCH (21:27)
[2018-11-09] VITALS: BP 137/80
[2018-11-09] MEDS: BLOOD SUGAR DIAGNOSTIC 1 EACH STRIP IN SCH ×4 (00:04→17:12)
[2018-11-09] MEDS: DILTIAZEM HCL 30 MG TABLET GT SCH ×4 (00:04→17:13)
[2018-11-09] MEDS: INSULIN ASPART/LISPRO 100 UNIT/ML CARTRIDGE SQ PRN ×4 (00:05→17:16)
[2018-11-09] MEDS: IPRATROPIUM NEB FS 0.5 MG/2.5 ML AMPUL.NEB NEB SCH ×4 (01:25→20:17)
[2018-11-09] MEDS: ALBUTEROL FS 2.5 MG/3 ML VIAL.NEB NEB SCH ×4 (01:25→20:17)
[2018-11-09] MEDS: GLUCERNA 1.2 1,000 ML BOTTLE GT PRN ×2 (03:09→18:00)
[2018-11-09] MEDS: PANTOPRAZOLE 40 MG/PACK PACK GT SCH (05:38)
[2018-11-09 05:55] VITALS: BP 146/77
[2018-11-09 07:37] VITALS: BP 125/70
[2018-11-09] MEDS: DOCUSATE SODIUM LIQ 100 MG/10 ML UDC GT SCH ×2 (08:09→17:12)
[2018-11-09] MEDS: FERROUS SULFATE - FOR SA ONLY 330 MG/7.5 ML UDC GT SCH (08:09)
[2018-11-09] MEDS: ACIDOPHILUS/BULGARICUS 1 EACH TAB.CHEW GT SCH ×2 (08:09→17:12)
[2018-11-09] MEDS: LEVETIRACETAM SOL (5 ML) 100 MG/ML UDC GT SCH ×2 (08:09→21:09)
[2018-11-09] MEDS: HYDROGEN PEROXIDE 480 ML BOTTLE TP SCH ×2 (08:12→21:00)
[2018-11-09] MEDS: ACETAMINOPHEN 650 MG/20 ML UDC- SA PATIENTS-PAIN ONLY GT SCH ×2 (08:12→21:09)
[2018-11-09] MEDS: ZINC SULFATE 220 MG CAPSULE GT SCH (08:12)
[2018-11-09] MEDS: ASCORBIC ACID 500 MG TABLET GT SCH (08:12)
[2018-11-09] MEDS: THERAHONEY GEL 1.5 OZ TUBE TP SCH ×2 (08:13→21:10)
[2018-11-09] MEDS: CLOTRIMAZOLE 1% 15 GM TUBE TP SCH ×2 (08:13→21:10)
[2018-11-09] MEDS: Z GUARD REMEDY 2 OZ OINT TP SCH ×2 (08:13→21:10)
[2018-11-09] MEDS: MULTIVIT W/MINERALS 1 TAB TABLET GT SCH (08:43)
[2018-11-09 12:00] VITALS: BP 122/73
[2018-11-09 18:00] VITALS: BP 128/67
[2018-11-09 19:53] VITALS: BP 136/68
[2018-11-09] MEDS: ENOXAPARIN SODIUM 40 MG/0.4 ML DISP.SYRIN SQ SCH (21:10)
[2018-11-09] MEDS: ATORVASTATIN 10 MG TABLET GT SCH (21:10)
[2018-11-09] MEDS: INSULIN GLARGINE, 100 UNIT/ML CARTRIDGE SQ SCH (21:11)
[2018-11-10] VITALS (7 sets, daily range): BP systolic 113–142; BP diastolic 60–74
[2018-11-10] MEDS: BLOOD SUGAR DIAGNOSTIC 1 EACH STRIP IN SCH ×5 (00:21→23:23)
[2018-11-10] MEDS: DILTIAZEM HCL 30 MG TABLET GT SCH ×4 (00:21→17:31)
[2018-11-10] MEDS: INSULIN ASPART/LISPRO 100 UNIT/ML CARTRIDGE SQ PRN ×5 (00:22→23:27)
[2018-11-10] MEDS: IPRATROPIUM NEB FS 0.5 MG/2.5 ML AMPUL.NEB NEB SCH ×4 (01:04→19:42)
[2018-11-10] MEDS: ALBUTEROL FS 2.5 MG/3 ML VIAL.NEB NEB SCH ×4 (01:04→19:42)
[2018-11-10] MEDS: PANTOPRAZOLE 40 MG/PACK PACK GT SCH (05:40)
[2018-11-10] MEDS: HYDROGEN PEROXIDE 480 ML BOTTLE TP SCH ×2 (09:11→21:38)
[2018-11-10] MEDS: LEVETIRACETAM SOL (5 ML) 100 MG/ML UDC GT SCH ×2 (09:15→21:37)
[2018-11-10] MEDS: DOCUSATE SODIUM LIQ 100 MG/10 ML UDC GT SCH ×2 (09:15→17:30)
[2018-11-10] MEDS: MULTIVIT W/MINERALS 1 TAB TABLET GT SCH (09:15)
[2018-11-10] MEDS: ASCORBIC ACID 500 MG TABLET GT SCH (09:15)
[2018-11-10] MEDS: ACIDOPHILUS/BULGARICUS 1 EACH TAB.CHEW GT SCH ×2 (09:15→17:30)
[2018-11-10] MEDS: ACETAMINOPHEN 650 MG/20 ML UDC- SA PATIENTS-PAIN ONLY GT SCH ×2 (09:15→21:42)
[2018-11-10] MEDS: FERROUS SULFATE - FOR SA ONLY 330 MG/7.5 ML UDC GT SCH (09:15)
[2018-11-10] MEDS: ZINC SULFATE 220 MG CAPSULE GT SCH (09:15)
[2018-11-10] MEDS: Z GUARD REMEDY 2 OZ OINT TP SCH ×2 (10:15→21:38)
[2018-11-10] MEDS: THERAHONEY GEL 1.5 OZ TUBE TP SCH ×2 (10:15→21:38)
[2018-11-10] MEDS: CLOTRIMAZOLE 1% 15 GM TUBE TP SCH ×2 (10:15→21:38)
[2018-11-10] MEDS: ATORVASTATIN 10 MG TABLET GT SCH (21:39)
[2018-11-10] MEDS: ENOXAPARIN SODIUM 40 MG/0.4 ML DISP.SYRIN SQ SCH (21:48)
[2018-11-10] MEDS: INSULIN GLARGINE, 100 UNIT/ML CARTRIDGE SQ SCH (23:23)
[2018-11-11] VITALS (7 sets, daily range): BP systolic 111–145; BP diastolic 61–88
[2018-11-11] MEDS: IPRATROPIUM NEB FS 0.5 MG/2.5 ML AMPUL.NEB NEB SCH ×4 (01:30→20:44)
[2018-11-11] MEDS: ALBUTEROL FS 2.5 MG/3 ML VIAL.NEB NEB SCH ×4 (01:30→20:44)
[2018-11-11] MEDS: DILTIAZEM HCL 30 MG TABLET GT SCH ×4 (05:48→17:26)
[2018-11-11] MEDS: PANTOPRAZOLE 40 MG/PACK PACK GT SCH (05:48)
[2018-11-11] MEDS: GLUCERNA 1.2 1,000 ML BOTTLE GT PRN ×2 (05:49→21:43)
[2018-11-11] MEDS: BLOOD SUGAR DIAGNOSTIC 1 EACH STRIP IN SCH ×3 (06:03→17:27)
[2018-11-11] MEDS: INSULIN ASPART/LISPRO 100 UNIT/ML CARTRIDGE SQ PRN ×3 (06:09→17:31)
[2018-11-11] MEDS: DOCUSATE SODIUM LIQ 100 MG/10 ML UDC GT SCH ×2 (08:48→17:26)
[2018-11-11] MEDS: LEVETIRACETAM SOL (5 ML) 100 MG/ML UDC GT SCH ×2 (08:49→20:56)
[2018-11-11] MEDS: MULTIVIT W/MINERALS 1 TAB TABLET GT SCH (08:49)
[2018-11-11] MEDS: ACIDOPHILUS/BULGARICUS 1 EACH TAB.CHEW GT SCH ×2 (08:49→17:26)
[2018-11-11] MEDS: FERROUS SULFATE - FOR SA ONLY 330 MG/7.5 ML UDC GT SCH (08:49)
[2018-11-11] MEDS: ACETAMINOPHEN 650 MG/20 ML UDC- SA PATIENTS-PAIN ONLY GT SCH ×2 (08:50→20:57)
[2018-11-11] MEDS: ZINC SULFATE 220 MG CAPSULE GT SCH (08:51)
[2018-11-11] MEDS: ASCORBIC ACID 500 MG TABLET GT SCH (08:51)
[2018-11-11] MEDS: Z GUARD REMEDY 2 OZ OINT TP SCH ×2 (08:51→20:57)
[2018-11-11] MEDS: HYDROGEN PEROXIDE 480 ML BOTTLE TP SCH ×2 (08:51→23:48)
[2018-11-11] MEDS: THERAHONEY GEL 1.5 OZ TUBE TP SCH ×2 (08:53→20:57)
[2018-11-11] MEDS: CLOTRIMAZOLE 1% 15 GM TUBE TP SCH ×2 (08:53→20:57)
[2018-11-11] MEDS: ENOXAPARIN SODIUM 40 MG/0.4 ML DISP.SYRIN SQ SCH (20:57)
[2018-11-11] MEDS: INSULIN GLARGINE, 100 UNIT/ML CARTRIDGE SQ SCH (21:07)
[2018-11-11] MEDS: ATORVASTATIN 10 MG TABLET GT SCH (21:08)
[2018-11-12] VITALS: BP 132/78
[2018-11-12] MEDS: INSULIN ASPART/LISPRO 100 UNIT/ML CARTRIDGE SQ PRN ×3 (00:40→17:25)
[2018-11-12] MEDS: BLOOD SUGAR DIAGNOSTIC 1 EACH STRIP IN SCH ×4 (00:40→17:22)
[2018-11-12] MEDS: DILTIAZEM HCL 30 MG TABLET GT SCH ×4 (00:41→17:22)
[2018-11-12] MEDS: IPRATROPIUM NEB FS 0.5 MG/2.5 ML AMPUL.NEB NEB SCH ×4 (02:07→19:38)
[2018-11-12] MEDS: ALBUTEROL FS 2.5 MG/3 ML VIAL.NEB NEB SCH ×4 (02:07→19:38)
[2018-11-12 06:00] VITALS: BP 129/69
[2018-11-12] MEDS: PANTOPRAZOLE 40 MG/PACK PACK GT SCH (06:06)
[2018-11-12 07:46] VITALS: BP 129/69
[2018-11-12] MEDS: DOCUSATE SODIUM LIQ 100 MG/10 ML UDC GT SCH ×2 (08:06→17:21)
[2018-11-12] MEDS: MULTIVIT W/MINERALS 1 TAB TABLET GT SCH (08:06)
[2018-11-12] MEDS: LEVETIRACETAM SOL (5 ML) 100 MG/ML UDC GT SCH ×2 (08:06→21:18)
[2018-11-12] MEDS: FERROUS SULFATE - FOR SA ONLY 330 MG/7.5 ML UDC GT SCH (08:06)
[2018-11-12] MEDS: ACETAMINOPHEN 650 MG/20 ML UDC- SA PATIENTS-PAIN ONLY GT SCH ×2 (08:06→21:19)
[2018-11-12] MEDS: ACIDOPHILUS/BULGARICUS 1 EACH TAB.CHEW GT SCH ×2 (08:06→17:21)
[2018-11-12] MEDS: ZINC SULFATE 220 MG CAPSULE GT SCH (08:07)
[2018-11-12] MEDS: ASCORBIC ACID 500 MG TABLET GT SCH (08:07)
[2018-11-12] MEDS: HYDROGEN PEROXIDE 480 ML BOTTLE TP SCH ×2 (09:00→21:19)
[2018-11-12] MEDS: THERAHONEY GEL 1.5 OZ TUBE TP SCH ×2 (09:06→21:20)
[2018-11-12] MEDS: CLOTRIMAZOLE 1% 15 GM TUBE TP SCH ×2 (09:06→21:19)
[2018-11-12] MEDS: Z GUARD REMEDY 2 OZ OINT TP SCH ×2 (09:06→21:19)
--- NOTE | 2018-11-12 10:00 | NUR ---
Solitario Catheter changed due to previous Solitario catheter bypassing and with blockage. Urine noted with white sediments. Tolerated procedure well. New Solitario Catheter draining clear yellow urine. GT in place patent no residual. GT flushed as ordered. HOB elevated. Aspiration precautions maintained. All needs met and attended. Kept clean and comfortable.
[2018-11-12 12:00] VITALS: BP 158/89
[2018-11-12] MEDS: GLUCERNA 1.2 1,000 ML BOTTLE GT PRN (17:22)
[2018-11-12 18:00] VITALS: BP 138/80
[2018-11-12 20:00] VITALS: BP 146/84
[2018-11-12] MEDS: ENOXAPARIN SODIUM 40 MG/0.4 ML DISP.SYRIN SQ SCH (21:19)
[2018-11-12] MEDS: ATORVASTATIN 10 MG TABLET GT SCH (21:27)
[2018-11-12] MEDS: INSULIN GLARGINE, 100 UNIT/ML CARTRIDGE SQ SCH (21:28)
[2018-11-13] VITALS: BP 152/87
[2018-11-13] MEDS: DILTIAZEM HCL 30 MG TABLET GT SCH ×5 (00:09→23:35)
[2018-11-13] MEDS: BLOOD SUGAR DIAGNOSTIC 1 EACH STRIP IN SCH ×5 (00:10→23:35)
[2018-11-13] MEDS: INSULIN ASPART/LISPRO 100 UNIT/ML CARTRIDGE SQ PRN ×5 (00:12→23:36)
[2018-11-13] MEDS: IPRATROPIUM NEB FS 0.5 MG/2.5 ML AMPUL.NEB NEB SCH ×4 (01:38→20:04)
[2018-11-13] MEDS: ALBUTEROL FS 2.5 MG/3 ML VIAL.NEB NEB SCH ×4 (01:38→20:04)
[2018-11-13] MEDS: PANTOPRAZOLE 40 MG/PACK PACK GT SCH (06:07)
[2018-11-13 06:53] VITALS: BP 132/76
[2018-11-13 07:58] VITALS: BP 97/36
[2018-11-13] MEDS: FERROUS SULFATE - FOR SA ONLY 330 MG/7.5 ML UDC GT SCH (08:43)
[2018-11-13] MEDS: ASCORBIC ACID 500 MG TABLET GT SCH (08:43)
[2018-11-13] MEDS: LEVETIRACETAM SOL (5 ML) 100 MG/ML UDC GT SCH ×2 (08:43→20:45)
[2018-11-13] MEDS: ACETAMINOPHEN 650 MG/20 ML UDC- SA PATIENTS-PAIN ONLY GT SCH ×2 (08:43→20:46)
[2018-11-13] MEDS: ZINC SULFATE 220 MG CAPSULE GT SCH (08:43)
[2018-11-13] MEDS: DOCUSATE SODIUM LIQ 100 MG/10 ML UDC GT SCH ×2 (08:43→17:16)
[2018-11-13] MEDS: MULTIVIT W/MINERALS 1 TAB TABLET GT SCH (08:43)
[2018-11-13] MEDS: ACIDOPHILUS/BULGARICUS 1 EACH TAB.CHEW GT SCH ×2 (08:43→17:16)
[2018-11-13] MEDS: HYDROGEN PEROXIDE 480 ML BOTTLE TP SCH ×2 (09:00→21:00)
[2018-11-13] MEDS: CLOTRIMAZOLE 1% 15 GM TUBE TP SCH ×2 (09:30→21:37)
[2018-11-13] MEDS: THERAHONEY GEL 1.5 OZ TUBE TP SCH ×2 (09:30→21:37)
[2018-11-13] MEDS: Z GUARD REMEDY 2 OZ OINT TP SCH ×2 (09:30→21:37)
[2018-11-13 12:00] VITALS: BP 128/73
[2018-11-13] MEDS: GLUCERNA 1.2 1,000 ML BOTTLE GT PRN (13:02)
[2018-11-13 18:50] VITALS: BP 122/66
[2018-11-13 20:20] VITALS: BP 129/73
[2018-11-13] MEDS: ENOXAPARIN SODIUM 40 MG/0.4 ML DISP.SYRIN SQ SCH (20:46)
[2018-11-13] MEDS: ATORVASTATIN 10 MG TABLET GT SCH (21:37)
[2018-11-13] MEDS: INSULIN GLARGINE, 100 UNIT/ML CARTRIDGE SQ SCH (21:50)
[2018-11-14 00:51] VITALS: BP 118/62
[2018-11-14] MEDS: IPRATROPIUM NEB FS 0.5 MG/2.5 ML AMPUL.NEB NEB SCH ×4 (01:30→20:02)
[2018-11-14] MEDS: ALBUTEROL FS 2.5 MG/3 ML VIAL.NEB NEB SCH ×4 (01:30→20:02)
[2018-11-14] MEDS: DILTIAZEM HCL 30 MG TABLET GT SCH ×4 (06:09→23:13)
[2018-11-14] MEDS: INSULIN ASPART/LISPRO 100 UNIT/ML CARTRIDGE SQ PRN ×4 (06:09→23:14)
[2018-11-14] MEDS: BLOOD SUGAR DIAGNOSTIC 1 EACH STRIP IN SCH ×4 (06:09→23:13)
[2018-11-14] MEDS: PANTOPRAZOLE 40 MG/PACK PACK GT SCH (06:09)
[2018-11-14 06:41] VITALS: BP 124/60
[2018-11-14 07:45] VITALS: BP 147/78
[2018-11-14] MEDS: LEVETIRACETAM SOL (5 ML) 100 MG/ML UDC GT SCH ×2 (08:20→20:53)
[2018-11-14] MEDS: ACETAMINOPHEN 650 MG/20 ML UDC- SA PATIENTS-PAIN ONLY GT SCH ×2 (08:20→20:53)
[2018-11-14] MEDS: ZINC SULFATE 220 MG CAPSULE GT SCH (08:20)
[2018-11-14] MEDS: FERROUS SULFATE - FOR SA ONLY 330 MG/7.5 ML UDC GT SCH (08:20)
[2018-11-14] MEDS: DOCUSATE SODIUM LIQ 100 MG/10 ML UDC GT SCH ×2 (08:20→16:51)
[2018-11-14] MEDS: MULTIVIT W/MINERALS 1 TAB TABLET GT SCH (08:20)
[2018-11-14] MEDS: ASCORBIC ACID 500 MG TABLET GT SCH (08:20)
[2018-11-14] MEDS: ACIDOPHILUS/BULGARICUS 1 EACH TAB.CHEW GT SCH ×2 (08:20→16:52)
[2018-11-14] MEDS: HYDROGEN PEROXIDE 480 ML BOTTLE TP SCH ×2 (08:26→21:07)
[2018-11-14] MEDS: CLOTRIMAZOLE 1% 15 GM TUBE TP SCH ×2 (09:00→21:46)
[2018-11-14] MEDS: THERAHONEY GEL 1.5 OZ TUBE TP SCH ×2 (09:00→21:46)
[2018-11-14] MEDS: Z GUARD REMEDY 2 OZ OINT TP SCH ×2 (09:00→21:46)
[2018-11-14 12:30] VITALS: BP 123/57
--- NOTE | 2018-11-14 16:25 | NUR ---
ORACIO contacted patient's conservator, Kelly Wong [phone] to inform her that there is a room change for the patient. Kelly expressed understanding and requested that the patient not be moved until Kelly can come move the patient's things herself at 9 pm. ORACIO confirmed that nurses will wait until 9 pm to change patient 's room. Kelly was agreeable to plan and thanked ORACIO for update.
[2018-11-14 19:03] VITALS: BP 104/61
[2018-11-14 20:26] VITALS: BP 119/67
[2018-11-14] MEDS: ENOXAPARIN SODIUM 40 MG/0.4 ML DISP.SYRIN SQ SCH (20:54)
[2018-11-14] MEDS: ATORVASTATIN 10 MG TABLET GT SCH (21:46)
[2018-11-14] MEDS: INSULIN GLARGINE, 100 UNIT/ML CARTRIDGE SQ SCH (21:51)
[2018-11-14] MEDS: GLUCERNA 1.2 1,000 ML BOTTLE GT PRN (23:25)
--- NOTE | 2018-11-14 23:50 | NUR ---
PATIENT DAUGHTER NEELA CAME AND PT TRANSFERRED TO TO 266-1.ALL BELONGINGS WAS ALSO MOVED BY STAFF AND DAUGHTER.NEELA SAID DO NOT SHAVE HER MOTHER FACIAL HAIR WITH RAZOR,SHE WILL DO IT WHEN SHE COME AND VISITS,DO NOT USE OUR MOUTHWASH SUPPLY,SHE WILL JEF HER OWN.ALL DAUGHTER REQUEST NOTED AND NURSING STAFFS NOTIFIED.
[2018-11-15 00:20] VITALS: BP 124/66
[2018-11-15] MEDS: IPRATROPIUM NEB FS 0.5 MG/2.5 ML AMPUL.NEB NEB SCH ×4 (01:09→20:01)
[2018-11-15] MEDS: ALBUTEROL FS 2.5 MG/3 ML VIAL.NEB NEB SCH ×4 (01:09→20:01)
[2018-11-15] MEDS: PANTOPRAZOLE 40 MG/PACK PACK GT SCH (05:53)
[2018-11-15] MEDS: DILTIAZEM HCL 30 MG TABLET GT SCH ×4 (05:53→23:46)
[2018-11-15] MEDS: BLOOD SUGAR DIAGNOSTIC 1 EACH STRIP IN SCH ×4 (05:56→23:46)
[2018-11-15] MEDS: INSULIN ASPART/LISPRO 100 UNIT/ML CARTRIDGE SQ PRN ×4 (05:58→23:48)
[2018-11-15 06:16] VITALS: BP 118/64
[2018-11-15 07:23] VITALS: BP 149/83
[2018-11-15] MEDS: LEVETIRACETAM SOL (5 ML) 100 MG/ML UDC GT SCH ×2 (08:57→21:00)
[2018-11-15] MEDS: DOCUSATE SODIUM LIQ 100 MG/10 ML UDC GT SCH ×2 (08:57→16:38)
[2018-11-15] MEDS: FERROUS SULFATE - FOR SA ONLY 330 MG/7.5 ML UDC GT SCH (08:57)
[2018-11-15] MEDS: MULTIVIT W/MINERALS 1 TAB TABLET GT SCH (08:58)
[2018-11-15] MEDS: ASCORBIC ACID 500 MG TABLET GT SCH (08:58)
[2018-11-15] MEDS: ACETAMINOPHEN 650 MG/20 ML UDC- SA PATIENTS-PAIN ONLY GT SCH ×2 (08:58→21:00)
[2018-11-15] MEDS: ACIDOPHILUS/BULGARICUS 1 EACH TAB.CHEW GT SCH ×2 (08:58→16:38)
[2018-11-15] MEDS: ZINC SULFATE 220 MG CAPSULE GT SCH (08:58)
[2018-11-15] MEDS: HYDROGEN PEROXIDE 480 ML BOTTLE TP SCH ×2 (09:00→21:00)
[2018-11-15] MEDS: Z GUARD REMEDY 2 OZ OINT TP SCH ×2 (09:02→21:00)
[2018-11-15] MEDS: THERAHONEY GEL 1.5 OZ TUBE TP SCH ×2 (09:02→21:00)
[2018-11-15] MEDS: CLOTRIMAZOLE 1% 15 GM TUBE TP SCH ×2 (09:02→21:00)
[2018-11-15 12:00] VITALS: BP 178/84
[2018-11-15] MEDS: GLUCERNA 1.2 1,000 ML BOTTLE GT PRN (15:18)
--- NOTE | 2018-11-15 16:06 | NUR ---
SW called patients responsible constitution party/daughter Kelly Wong [phone] to invite them the IDT plan of care conference being held tomorrow November 16, 2018 in the activities room from 12:30pm-1:30pm. Kelly stated, I will have to let you know later as I have a lot going on. SW used mirroring and validated patients stressful situation. SW provided support and understanding. ORACIO used empathetic listening and informed Kelly to keep SW updated and SW will support Kelly and the resident as best as possible. Kelly was grateful for support and was agreeable to plan. ORACIO will wait for update.
[2018-11-15 18:20] VITALS: BP 157/71
[2018-11-15 19:55] VITALS: BP 136/69
[2018-11-15] MEDS: ENOXAPARIN SODIUM 40 MG/0.4 ML DISP.SYRIN SQ SCH (21:00)
[2018-11-15] MEDS: INSULIN GLARGINE, 100 UNIT/ML CARTRIDGE SQ SCH (22:15)
[2018-11-15] MEDS: ATORVASTATIN 10 MG TABLET GT SCH (22:15)
[2018-11-16] VITALS (7 sets, daily range): BP systolic 113–154; BP diastolic 65–86
[2018-11-16] MEDS: IPRATROPIUM NEB FS 0.5 MG/2.5 ML AMPUL.NEB NEB SCH ×4 (01:37→19:38)
[2018-11-16] MEDS: ALBUTEROL FS 2.5 MG/3 ML VIAL.NEB NEB SCH ×4 (01:37→19:38)
[2018-11-16] MEDS: BLOOD SUGAR DIAGNOSTIC 1 EACH STRIP IN SCH ×3 (05:16→17:57)
[2018-11-16] MEDS: DILTIAZEM HCL 30 MG TABLET GT SCH ×4 (05:16→23:48)
[2018-11-16] MEDS: PANTOPRAZOLE 40 MG/PACK PACK GT SCH (05:16)
[2018-11-16] MEDS: GLUCERNA 1.2 1,000 ML BOTTLE GT PRN ×2 (05:18→20:24)
[2018-11-16] MEDS: INSULIN ASPART/LISPRO 100 UNIT/ML CARTRIDGE SQ PRN ×3 (05:18→18:03)
[2018-11-16] MEDS: DOCUSATE SODIUM LIQ 100 MG/10 ML UDC GT SCH ×2 (08:03→16:46)
[2018-11-16] MEDS: FERROUS SULFATE - FOR SA ONLY 330 MG/7.5 ML UDC GT SCH (08:04)
[2018-11-16] MEDS: ACIDOPHILUS/BULGARICUS 1 EACH TAB.CHEW GT SCH ×2 (08:06→16:51)
[2018-11-16] MEDS: LEVETIRACETAM SOL (5 ML) 100 MG/ML UDC GT SCH ×2 (08:06→20:46)
[2018-11-16] MEDS: ASCORBIC ACID 500 MG TABLET GT SCH (08:07)
[2018-11-16] MEDS: ZINC SULFATE 220 MG CAPSULE GT SCH (08:07)
[2018-11-16] MEDS: ACETAMINOPHEN 650 MG/20 ML UDC- SA PATIENTS-PAIN ONLY GT SCH ×2 (08:08→21:53)
[2018-11-16] MEDS: MULTIVIT W/MINERALS 1 TAB TABLET GT SCH (08:11)
[2018-11-16] MEDS: THERAHONEY GEL 1.5 OZ TUBE TP SCH ×2 (09:00→21:53)
[2018-11-16] MEDS: Z GUARD REMEDY 2 OZ OINT TP SCH ×2 (09:00→21:53)
[2018-11-16] MEDS: CLOTRIMAZOLE 1% 15 GM TUBE TP SCH ×2 (09:00→21:53)
[2018-11-16] MEDS: HYDROGEN PEROXIDE 480 ML BOTTLE TP SCH ×2 (09:18→20:29)
[2018-11-16] MEDS: ACETAMINOPHEN 650 MG/20 ML UDC- SA PATIENTS-FEVER ONLY GT PRN (17:58)
--- NOTE | 2018-11-16 19:11 | NUR ---
Notified Dr. Martin, subcontract manager for Dr. Pineda regarding elevated temperature 101.8, BP 114/65, 99% on cool aerosol, 16, P 97. F/C draining yellow urine, no hematuria. Cooling measure done, new order given to do BC x2, CBC, UA and C&S, chest X-ray. Resident's daughter, Kelly notified of LEONARD, appreciated the call. Endorsed to incoming shift.
[2018-11-16 19:25] LABS: BASOPHILS # (AUTO) 0.1 /CMM (0.0-0.2); BASOPHILS % (AUTO) 0.6 % (0.0-2.0); EOSINOPHILS % (AUTO) 2.5 % (0.0-6.0); HEMATOCRIT 34 % (33-45); LYMPHOCYTES # (AUTO) 2.5 /CMM (0.8-4.8); MEAN CORPUSCULAR HGB CONC 32 g/dl (31.0-36.0); MEAN CORPUSCULAR VOLUME 91 fL (82-100); MONOCYTES # (AUTO) 0.6 /CMM (0.1-1.30); MONOCYTES % (AUTO) 6.3 % (2.0-12.0); NEUTROPHILS # (AUTO) 5.6 /CMM (1.8-8.9); NEUTROPHILS % (AUTO) 62.6 % (43.0-81.0); PLATELET COUNT (AUTO) 419 /CMM (150-450); RED BLOOD CELL COUNT(AUTO) 3.76 MIL/uL (4.0-5.2)
--- NOTE | 2018-11-16 19:33 | NUR ---
charge nurse informed about the patients temp 100.7 and called the physician . for orders,and informed
--- NOTE | 2018-11-16 20:21 | NUR ---
RN NOTES TEMP AXILLARY 99F, CBC NO SIGNIFICANT FINDINGS, CXR CLEAR, NO PLEURAL EFFUSION, NO ACUTE AIR SPACE INFILTRATES, NOTIFIED DR. IBRAHIM, PATIENT SUPPORT ASSISTANT FOR DR. Tj PAULSON, NO NEW ORDERS. AWAITING UA, BLOOD CX RESULTS. COOLING MEASURE INITIATED.
[2018-11-16] MEDS: ENOXAPARIN SODIUM 40 MG/0.4 ML DISP.SYRIN SQ SCH (20:46)
[2018-11-16] MEDS: ATORVASTATIN 10 MG TABLET GT SCH (21:53)
[2018-11-16] MEDS: INSULIN GLARGINE, 100 UNIT/ML CARTRIDGE SQ SCH (22:48)
[2018-11-17] VITALS (8 sets, daily range): BP systolic 118–158; BP diastolic 70–94
[2018-11-17] MEDS: IPRATROPIUM NEB FS 0.5 MG/2.5 ML AMPUL.NEB NEB SCH ×4 (00:34→19:24)
[2018-11-17] MEDS: ALBUTEROL FS 2.5 MG/3 ML VIAL.NEB NEB SCH ×4 (00:34→19:24)
[2018-11-17] MEDS: BLOOD SUGAR DIAGNOSTIC 1 EACH STRIP IN SCH ×5 (00:41→23:13)
[2018-11-17] MEDS: INSULIN ASPART/LISPRO 100 UNIT/ML CARTRIDGE SQ PRN ×5 (00:43→23:14)
[2018-11-17] MEDS: PANTOPRAZOLE 40 MG/PACK PACK GT SCH (05:25)
[2018-11-17] MEDS: DILTIAZEM HCL 30 MG TABLET GT SCH ×4 (05:25→23:13)
[2018-11-17] MEDS: DOCUSATE SODIUM LIQ 100 MG/10 ML UDC GT SCH ×2 (08:38→17:17)
[2018-11-17] MEDS: FERROUS SULFATE - FOR SA ONLY 330 MG/7.5 ML UDC GT SCH (08:38)
[2018-11-17] MEDS: ACIDOPHILUS/BULGARICUS 1 EACH TAB.CHEW GT SCH ×2 (08:39→17:17)
[2018-11-17] MEDS: LEVETIRACETAM SOL (5 ML) 100 MG/ML UDC GT SCH ×2 (08:39→20:28)
[2018-11-17] MEDS: MULTIVIT W/MINERALS 1 TAB TABLET GT SCH (08:39)
[2018-11-17] MEDS: ZINC SULFATE 220 MG CAPSULE GT SCH (08:40)
[2018-11-17] MEDS: ASCORBIC ACID 500 MG TABLET GT SCH (08:40)
[2018-11-17] MEDS: ACETAMINOPHEN 650 MG/20 ML UDC- SA PATIENTS-PAIN ONLY GT SCH ×2 (08:40→20:28)
[2018-11-17] MEDS: HYDROGEN PEROXIDE 480 ML BOTTLE TP SCH ×2 (09:00→20:29)
[2018-11-17] MEDS: THERAHONEY GEL 1.5 OZ TUBE TP SCH ×2 (09:40→20:29)
[2018-11-17] MEDS: CLOTRIMAZOLE 1% 15 GM TUBE TP SCH ×2 (09:40→20:29)
[2018-11-17] MEDS: Z GUARD REMEDY 2 OZ OINT TP SCH ×2 (09:40→20:29)
[2018-11-17] MEDS: GLUCERNA 1.2 1,000 ML BOTTLE GT PRN (14:41)
[2018-11-17] MEDS: ENOXAPARIN SODIUM 40 MG/0.4 ML DISP.SYRIN SQ SCH (20:28)
[2018-11-17] MEDS: ATORVASTATIN 10 MG TABLET GT SCH (21:13)
[2018-11-17] MEDS: INSULIN GLARGINE, 100 UNIT/ML CARTRIDGE SQ SCH (21:13)
[2018-11-18 00:18] VITALS: BP 115/60
[2018-11-18] MEDS: IPRATROPIUM NEB FS 0.5 MG/2.5 ML AMPUL.NEB NEB SCH ×4 (01:15→19:00)
[2018-11-18] MEDS: ALBUTEROL FS 2.5 MG/3 ML VIAL.NEB NEB SCH ×4 (01:15→19:00)
[2018-11-18] MEDS: PANTOPRAZOLE 40 MG/PACK PACK GT SCH (05:25)
[2018-11-18] MEDS: BLOOD SUGAR DIAGNOSTIC 1 EACH STRIP IN SCH ×3 (05:25→18:00)
[2018-11-18] MEDS: DILTIAZEM HCL 30 MG TABLET GT SCH ×3 (05:25→17:41)
[2018-11-18] MEDS: INSULIN ASPART/LISPRO 100 UNIT/ML CARTRIDGE SQ PRN ×3 (05:25→18:03)
[2018-11-18] MEDS: GLUCERNA 1.2 1,000 ML BOTTLE GT PRN ×2 (05:26→18:23)
[2018-11-18 06:07] VITALS: BP 136/89
[2018-11-18 07:44] VITALS: BP 134/85
[2018-11-18] MEDS: HYDROGEN PEROXIDE 480 ML BOTTLE TP SCH ×2 (09:00→19:08)
[2018-11-18] MEDS: DOCUSATE SODIUM LIQ 100 MG/10 ML UDC GT SCH ×2 (09:01→17:41)
[2018-11-18] MEDS: FERROUS SULFATE - FOR SA ONLY 330 MG/7.5 ML UDC GT SCH (09:02)
[2018-11-18] MEDS: LEVETIRACETAM SOL (5 ML) 100 MG/ML UDC GT SCH ×2 (09:02→21:20)
[2018-11-18] MEDS: ACIDOPHILUS/BULGARICUS 1 EACH TAB.CHEW GT SCH ×2 (09:04→17:37)
[2018-11-18] MEDS: ACETAMINOPHEN 650 MG/20 ML UDC- SA PATIENTS-PAIN ONLY GT SCH ×2 (09:05→21:20)
[2018-11-18] MEDS: ZINC SULFATE 220 MG CAPSULE GT SCH (09:06)
[2018-11-18] MEDS: ASCORBIC ACID 500 MG TABLET GT SCH (09:06)
[2018-11-18] MEDS: MULTIVIT W/MINERALS 1 TAB TABLET GT SCH (09:06)
[2018-11-18] MEDS: CLOTRIMAZOLE 1% 15 GM TUBE TP SCH ×2 (09:47→21:24)
[2018-11-18] MEDS: Z GUARD REMEDY 2 OZ OINT TP SCH ×2 (09:47→21:24)
[2018-11-18] MEDS: THERAHONEY GEL 1.5 OZ TUBE TP SCH ×2 (09:48→21:24)
[2018-11-18 12:00] VITALS: BP 120/78
[2018-11-18 18:16] LABS: APPEARANCE,URINE SL CLOUDY (CLEAR); BILIRUBIN,URINE NEGATIVE (NEGATIVE); BLOOD, URINE 1+ Ery/uL (NEGATIVE); COLOR,URINE YELLOW (YELLOW); KETONES,URINE NEGATIVE (NEGATIVE); LEUKOCYTE ESTERASE ,URINE 3+ (NEGATIVE); NITRITE, URINE NEGATIVE (NEGATIVE); PROTEIN,URINE 1+ mg/dl (NEGATIVE); UGLUCOSE NEGATIVE (NEGATIVE); UROBILINOGEN,URINE 0.2 EU/dL (0.2)
[2018-11-18 18:27] VITALS: BP 122/69
[2018-11-18 18:35] LABS: PH,URINE >8.5 (5.0-8.0)
[2018-11-18 18:37] LABS: BACTERIA,URINE 4+ /HPF (None Seen); SQUAMOUS EPITHELIAL CELL,UR 0-2 /HPF (None Seen)
[2018-11-18 18:38] LABS: TRIPLE PHOSPHATE CRYSTAL,UR Rare /HPF (None Seen)
[2018-11-18] MEDS: ENOXAPARIN SODIUM 40 MG/0.4 ML DISP.SYRIN SQ SCH (21:24)
[2018-11-18] MEDS: ATORVASTATIN 10 MG TABLET GT SCH (21:24)
[2018-11-18] MEDS: INSULIN GLARGINE, 100 UNIT/ML CARTRIDGE SQ SCH (21:25)
[2018-11-18 21:31] VITALS: BP 135/60
--- NOTE | 2018-11-18 23:14 | NUR ---
PATIENT RECEIVED ON 28 AEROSOL T-TUBE, TOLERATING WITH NO DISTRESS/SOB NOTED. SUCTIONED WITH LAVAGE FOR MINIMAL, THIN, YELLOW SECRETIONS. GIVEN IN-LINE TREATMENTS WITH NO ADVERSE REACTIONS. AMBU BAG AT BEDSIDE. Addendum: 11/18/18 at 2315 by KAISER LAW RT Amended: Links added.
[2018-11-19] VITALS: BP 139/73
[2018-11-19] MEDS: DILTIAZEM HCL 30 MG TABLET GT SCH ×4 (00:38→18:15)
[2018-11-19] MEDS: BLOOD SUGAR DIAGNOSTIC 1 EACH STRIP IN SCH ×4 (00:39→18:15)
[2018-11-19] MEDS: INSULIN ASPART/LISPRO 100 UNIT/ML CARTRIDGE SQ PRN ×4 (00:40→18:16)
[2018-11-19] MEDS: IPRATROPIUM NEB FS 0.5 MG/2.5 ML AMPUL.NEB NEB SCH ×4 (01:37→19:32)
[2018-11-19] MEDS: ALBUTEROL FS 2.5 MG/3 ML VIAL.NEB NEB SCH ×4 (01:37→19:32)
[2018-11-19] MEDS: PANTOPRAZOLE 40 MG/PACK PACK GT SCH (05:20)
[2018-11-19 06:00] VITALS: BP 151/79
[2018-11-19 07:43] VITALS: BP 123/64
[2018-11-19] MEDS: ASCORBIC ACID 500 MG TABLET GT SCH (08:34)
[2018-11-19] MEDS: MULTIVIT W/MINERALS 1 TAB TABLET GT SCH (08:34)
[2018-11-19] MEDS: LEVETIRACETAM SOL (5 ML) 100 MG/ML UDC GT SCH ×2 (08:34→21:25)
[2018-11-19] MEDS: ACETAMINOPHEN 650 MG/20 ML UDC- SA PATIENTS-PAIN ONLY GT SCH ×2 (08:34→21:25)
[2018-11-19] MEDS: ACIDOPHILUS/BULGARICUS 1 EACH TAB.CHEW GT SCH ×2 (08:34→17:00)
[2018-11-19] MEDS: DOCUSATE SODIUM LIQ 100 MG/10 ML UDC GT SCH ×2 (08:34→17:00)
[2018-11-19] MEDS: ZINC SULFATE 220 MG CAPSULE GT SCH (08:34)
[2018-11-19] MEDS: FERROUS SULFATE - FOR SA ONLY 330 MG/7.5 ML UDC GT SCH (08:34)
[2018-11-19] MEDS: HYDROGEN PEROXIDE 480 ML BOTTLE TP SCH ×2 (09:00→19:32)
[2018-11-19] MEDS: CLOTRIMAZOLE 1% 15 GM TUBE TP SCH ×2 (09:00→21:26)
[2018-11-19] MEDS: THERAHONEY GEL 1.5 OZ TUBE TP SCH ×2 (09:00→21:26)
[2018-11-19] MEDS: Z GUARD REMEDY 2 OZ OINT TP SCH ×2 (09:00→21:26)
--- NOTE | 2018-11-19 11:12 | NUR ---
Late Entry for 11/16/18 INTERDISCIPLINARY TEAM PLAN OF CARE Conference was held today. The patient's responsible green party, Kelly Wong [phone] Dr. Capone and interdisciplinary team discussed the current plan of care in detail. Current orders as well as treatments and medications were reviewed. See other discipline's IDT notes for further details.
[2018-11-19 12:00] VITALS: BP 139/76
--- NOTE | 2018-11-19 15:50 | NUR ---
SW completed the social worker delinquency prevention portion of [facility] 1st Quarter. Residents daughter, Kelly Wong [phone] is the conservator. The residents family is involved and supportive. The resident remains in a vegetative state and is full code and non-vent. Pt. was seen by the podiatrisr, Dr. Hawkins TEL:[phone] on 05/25/18. The resident was seen by director of marketing operations, Dr. Saldana TEL:[phone] for annual check-up 04/27/18.
[2018-11-19] MEDS: GLUCERNA 1.2 1,000 ML BOTTLE GT PRN (16:08)
[2018-11-19 18:30] VITALS: BP 153/91
[2018-11-19 20:57] VITALS: BP_SYST 120; BP_SYST 133; BP_DIAS 66
[2018-11-19] MEDS: ATORVASTATIN 10 MG TABLET GT SCH (21:26)
[2018-11-19] MEDS: ENOXAPARIN SODIUM 40 MG/0.4 ML DISP.SYRIN SQ SCH (21:26)
[2018-11-19] MEDS: INSULIN GLARGINE, 100 UNIT/ML CARTRIDGE SQ SCH (21:29)
[2018-11-20] MEDS: DILTIAZEM HCL 30 MG TABLET GT SCH ×5 (00:12→23:21)
[2018-11-20] MEDS: BLOOD SUGAR DIAGNOSTIC 1 EACH STRIP IN SCH ×5 (00:12→23:21)
[2018-11-20] MEDS: INSULIN ASPART/LISPRO 100 UNIT/ML CARTRIDGE SQ PRN ×5 (00:13→23:22)
[2018-11-20] MEDS: IPRATROPIUM NEB FS 0.5 MG/2.5 ML AMPUL.NEB NEB SCH ×4 (01:02→19:49)
[2018-11-20] MEDS: ALBUTEROL FS 2.5 MG/3 ML VIAL.NEB NEB SCH ×4 (01:02→19:49)
[2018-11-20 03:15] VITALS: BP 140/67
[2018-11-20] MEDS: PANTOPRAZOLE 40 MG/PACK PACK GT SCH (05:49)
[2018-11-20 06:06] VITALS: BP 138/74
[2018-11-20 07:26] VITALS: BP 133/74
[2018-11-20] MEDS: ACETAMINOPHEN 650 MG/20 ML UDC- SA PATIENTS-PAIN ONLY GT SCH ×2 (08:14→20:39)
[2018-11-20] MEDS: LEVETIRACETAM SOL (5 ML) 100 MG/ML UDC GT SCH ×2 (08:14→20:39)
[2018-11-20] MEDS: ZINC SULFATE 220 MG CAPSULE GT SCH (08:14)
[2018-11-20] MEDS: ACIDOPHILUS/BULGARICUS 1 EACH TAB.CHEW GT SCH ×2 (08:14→17:11)
[2018-11-20] MEDS: ASCORBIC ACID 500 MG TABLET GT SCH (08:14)
[2018-11-20] MEDS: DOCUSATE SODIUM LIQ 100 MG/10 ML UDC GT SCH ×2 (08:14→17:11)
[2018-11-20] MEDS: MULTIVIT W/MINERALS 1 TAB TABLET GT SCH (08:14)
[2018-11-20] MEDS: FERROUS SULFATE - FOR SA ONLY 330 MG/7.5 ML UDC GT SCH (08:14)
[2018-11-20] MEDS: GLUCERNA 1.2 1,000 ML BOTTLE GT PRN ×2 (08:28→23:23)
[2018-11-20] MEDS: HYDROGEN PEROXIDE 480 ML BOTTLE TP SCH ×2 (09:00→20:53)
[2018-11-20] MEDS: CLOTRIMAZOLE 1% 15 GM TUBE TP SCH ×2 (09:00→21:25)
[2018-11-20] MEDS: Z GUARD REMEDY 2 OZ OINT TP SCH ×2 (09:00→21:25)
[2018-11-20] MEDS: THERAHONEY GEL 1.5 OZ TUBE TP SCH ×2 (09:00→21:25)
--- NOTE | 2018-11-20 09:17 | NUR ---
ORACIO called Residents daughter, Kelly Wong [phone] to invite her to attend the family support group being held tomorrow November 21, 2018 from 11 am-12pm in the old admin conference room in the first floor. Call went to voicemail and ORACIO left all the details in the voicemail as well as a a call back number.
[2018-11-20 12:00] VITALS: BP 125/87
[2018-11-20 18:05] VITALS: BP 154/83
[2018-11-20 20:39] VITALS: BP 117/74
[2018-11-20] MEDS: ENOXAPARIN SODIUM 40 MG/0.4 ML DISP.SYRIN SQ SCH (20:40)
[2018-11-20] MEDS: ATORVASTATIN 10 MG TABLET GT SCH (21:26)
[2018-11-20] MEDS: INSULIN GLARGINE, 100 UNIT/ML CARTRIDGE SQ SCH (21:57)
[2018-11-21 00:40] VITALS: BP 114/66
[2018-11-21] MEDS: ALBUTEROL FS 2.5 MG/3 ML VIAL.NEB NEB SCH ×4 (01:27→20:08)
[2018-11-21] MEDS: IPRATROPIUM NEB FS 0.5 MG/2.5 ML AMPUL.NEB NEB SCH ×4 (01:27→20:08)
[2018-11-21] MEDS: DILTIAZEM HCL 30 MG TABLET GT SCH ×4 (05:46→23:20)
[2018-11-21] MEDS: PANTOPRAZOLE 40 MG/PACK PACK GT SCH (05:46)
[2018-11-21] MEDS: BLOOD SUGAR DIAGNOSTIC 1 EACH STRIP IN SCH ×4 (05:47→23:20)
[2018-11-21] MEDS: INSULIN ASPART/LISPRO 100 UNIT/ML CARTRIDGE SQ PRN ×4 (05:48→23:20)
[2018-11-21 06:03] VITALS: BP 120/60
[2018-11-21 07:35] VITALS: BP 135/80
[2018-11-21] MEDS: MULTIVIT W/MINERALS 1 TAB TABLET GT SCH (08:21)
[2018-11-21] MEDS: LEVETIRACETAM SOL (5 ML) 100 MG/ML UDC GT SCH ×2 (08:21→20:30)
[2018-11-21] MEDS: FERROUS SULFATE - FOR SA ONLY 330 MG/7.5 ML UDC GT SCH (08:21)
[2018-11-21] MEDS: DOCUSATE SODIUM LIQ 100 MG/10 ML UDC GT SCH ×2 (08:21→17:13)
[2018-11-21] MEDS: ACIDOPHILUS/BULGARICUS 1 EACH TAB.CHEW GT SCH ×2 (08:21→17:13)
[2018-11-21] MEDS: ZINC SULFATE 220 MG CAPSULE GT SCH (08:22)
[2018-11-21] MEDS: ACETAMINOPHEN 650 MG/20 ML UDC- SA PATIENTS-PAIN ONLY GT SCH ×2 (08:22→20:30)
[2018-11-21] MEDS: ASCORBIC ACID 500 MG TABLET GT SCH (08:22)
[2018-11-21] MEDS: HYDROGEN PEROXIDE 480 ML BOTTLE TP SCH ×2 (08:35→21:38)
[2018-11-21] MEDS: THERAHONEY GEL 1.5 OZ TUBE TP SCH ×2 (09:00→21:12)
[2018-11-21] MEDS: CLOTRIMAZOLE 1% 15 GM TUBE TP SCH ×2 (09:00→20:31)
[2018-11-21] MEDS: Z GUARD REMEDY 2 OZ OINT TP SCH ×2 (09:00→20:31)
[2018-11-21 15:58] VITALS: BP 138/80
[2018-11-21] MEDS: GLUCERNA 1.2 1,000 ML BOTTLE GT PRN (17:13)
[2018-11-21 18:25] VITALS: BP 141/79
[2018-11-21] MEDS: ENOXAPARIN SODIUM 40 MG/0.4 ML DISP.SYRIN SQ SCH (20:31)
[2018-11-21] MEDS: ATORVASTATIN 10 MG TABLET GT SCH (21:12)
[2018-11-21 21:23] VITALS: BP 113/60
[2018-11-21] MEDS: INSULIN GLARGINE, 100 UNIT/ML CARTRIDGE SQ SCH (21:36)
[2018-11-22 00:27] VITALS: BP 116/60
[2018-11-22] MEDS: ALBUTEROL FS 2.5 MG/3 ML VIAL.NEB NEB SCH ×4 (01:35→19:43)
[2018-11-22] MEDS: IPRATROPIUM NEB FS 0.5 MG/2.5 ML AMPUL.NEB NEB SCH ×4 (01:35→19:43)
[2018-11-22] MEDS: PANTOPRAZOLE 40 MG/PACK PACK GT SCH (05:04)
[2018-11-22] MEDS: DILTIAZEM HCL 30 MG TABLET GT SCH ×4 (05:04→23:13)
[2018-11-22] MEDS: BLOOD SUGAR DIAGNOSTIC 1 EACH STRIP IN SCH ×4 (05:41→23:13)
[2018-11-22] MEDS: INSULIN ASPART/LISPRO 100 UNIT/ML CARTRIDGE SQ PRN ×4 (05:42→23:13)
[2018-11-22 06:08] VITALS: BP 122/60
[2018-11-22 07:48] VITALS: BP 122/73
[2018-11-22] MEDS: HYDROGEN PEROXIDE 480 ML BOTTLE TP SCH ×2 (09:00→20:14)
[2018-11-22] MEDS: ACETAMINOPHEN 650 MG/20 ML UDC- SA PATIENTS-PAIN ONLY GT SCH ×2 (09:55→20:13)
[2018-11-22] MEDS: ZINC SULFATE 220 MG CAPSULE GT SCH (09:55)
[2018-11-22] MEDS: MULTIVIT W/MINERALS 1 TAB TABLET GT SCH (09:55)
[2018-11-22] MEDS: CLOTRIMAZOLE 1% 15 GM TUBE TP SCH ×2 (09:55→20:14)
[2018-11-22] MEDS: LEVETIRACETAM SOL (5 ML) 100 MG/ML UDC GT SCH ×2 (09:55→20:13)
[2018-11-22] MEDS: FERROUS SULFATE - FOR SA ONLY 330 MG/7.5 ML UDC GT SCH (09:55)
[2018-11-22] MEDS: ACIDOPHILUS/BULGARICUS 1 EACH TAB.CHEW GT SCH ×2 (09:55→17:16)
[2018-11-22] MEDS: DOCUSATE SODIUM LIQ 100 MG/10 ML UDC GT SCH ×2 (09:55→17:16)
[2018-11-22] MEDS: ASCORBIC ACID 500 MG TABLET GT SCH (09:55)
[2018-11-22] MEDS: THERAHONEY GEL 1.5 OZ TUBE TP SCH ×2 (09:55→20:14)
[2018-11-22] MEDS: Z GUARD REMEDY 2 OZ OINT TP SCH ×2 (09:55→20:14)
--- NOTE | 2018-11-22 10:31 | NUR ---
Height has been rechecked by RNA and noted at 61 inches.
[2018-11-22] MEDS: GLUCERNA 1.2 1,000 ML BOTTLE GT PRN (11:59)
[2018-11-22 15:31] VITALS: BP 133/69
[2018-11-22 18:38] VITALS: BP 118/65
--- NOTE | 2018-11-22 19:23 | NUR ---
Late entry for 11/20/18 Urine culture result relayed to MILLY Bender. No new order.
[2018-11-22] MEDS: ENOXAPARIN SODIUM 40 MG/0.4 ML DISP.SYRIN SQ SCH (20:14)
[2018-11-22 20:43] VITALS: BP 99/56
[2018-11-22] MEDS: ATORVASTATIN 10 MG TABLET GT SCH (21:11)
[2018-11-22] MEDS: INSULIN GLARGINE, 100 UNIT/ML CARTRIDGE SQ SCH (21:12)
[2018-11-23 00:37] VITALS: BP 109/59
[2018-11-23] MEDS: IPRATROPIUM NEB FS 0.5 MG/2.5 ML AMPUL.NEB NEB SCH ×4 (00:40→19:40)
[2018-11-23] MEDS: ALBUTEROL FS 2.5 MG/3 ML VIAL.NEB NEB SCH ×4 (00:40→19:40)
[2018-11-23] MEDS: BLOOD SUGAR DIAGNOSTIC 1 EACH STRIP IN SCH ×4 (05:21→23:10)
[2018-11-23] MEDS: PANTOPRAZOLE 40 MG/PACK PACK GT SCH (05:21)
[2018-11-23] MEDS: GLUCERNA 1.2 1,000 ML BOTTLE GT PRN (05:21)
[2018-11-23] MEDS: DILTIAZEM HCL 30 MG TABLET GT SCH ×4 (05:21→23:10)
[2018-11-23] MEDS: INSULIN ASPART/LISPRO 100 UNIT/ML CARTRIDGE SQ PRN ×4 (05:21→23:11)
[2018-11-23 06:19] VITALS: BP 118/65
[2018-11-23 07:30] VITALS: BP 153/95
[2018-11-23] MEDS: HYDROGEN PEROXIDE 480 ML BOTTLE TP SCH ×2 (09:00→20:41)
[2018-11-23] MEDS: MULTIVIT W/MINERALS 1 TAB TABLET GT SCH (09:23)
[2018-11-23] MEDS: ASCORBIC ACID 500 MG TABLET GT SCH (09:23)
[2018-11-23] MEDS: FERROUS SULFATE - FOR SA ONLY 330 MG/7.5 ML UDC GT SCH (09:23)
[2018-11-23] MEDS: LEVETIRACETAM SOL (5 ML) 100 MG/ML UDC GT SCH ×2 (09:23→20:40)
[2018-11-23] MEDS: DOCUSATE SODIUM LIQ 100 MG/10 ML UDC GT SCH ×2 (09:23→17:37)
[2018-11-23] MEDS: ACIDOPHILUS/BULGARICUS 1 EACH TAB.CHEW GT SCH ×2 (09:23→17:37)
[2018-11-23] MEDS: ACETAMINOPHEN 650 MG/20 ML UDC- SA PATIENTS-PAIN ONLY GT SCH ×2 (09:23→20:40)
[2018-11-23] MEDS: THERAHONEY GEL 1.5 OZ TUBE TP SCH ×2 (09:24→20:42)
[2018-11-23] MEDS: CLOTRIMAZOLE 1% 15 GM TUBE TP SCH ×2 (09:24→20:41)
[2018-11-23] MEDS: ZINC SULFATE 220 MG CAPSULE GT SCH (09:24)
[2018-11-23] MEDS: Z GUARD REMEDY 2 OZ OINT TP SCH ×2 (09:24→20:41)
--- NOTE | 2018-11-23 12:37 | NUR ---
Resident noted with bilateral redness with open skin under her breast. MD notified with new order given. Resident's daughter Kelly notified.
[2018-11-23 14:53] VITALS: BP 128/73
[2018-11-23 18:38] VITALS: BP 135/69
[2018-11-23] MEDS: ENOXAPARIN SODIUM 40 MG/0.4 ML DISP.SYRIN SQ SCH (20:40)
[2018-11-23] MEDS: NYSTATIN TOP POWDER 15 GM BOTTLE TP SCH ×2 (20:41)
[2018-11-23 20:42] VITALS: BP 108/60
[2018-11-23] MEDS: ATORVASTATIN 10 MG TABLET GT SCH (21:01)
[2018-11-23] MEDS: INSULIN GLARGINE, 100 UNIT/ML CARTRIDGE SQ SCH (21:02)
[2018-11-24 00:14] VITALS: BP 129/70
[2018-11-24] MEDS: ALBUTEROL FS 2.5 MG/3 ML VIAL.NEB NEB SCH ×4 (01:26→19:18)
[2018-11-24] MEDS: IPRATROPIUM NEB FS 0.5 MG/2.5 ML AMPUL.NEB NEB SCH ×4 (01:26→19:18)
[2018-11-24] MEDS: GLUCERNA 1.2 1,000 ML BOTTLE GT PRN ×2 (05:43→11:51)
[2018-11-24] MEDS: DILTIAZEM HCL 30 MG TABLET GT SCH ×4 (05:43→23:33)
[2018-11-24] MEDS: INSULIN ASPART/LISPRO 100 UNIT/ML CARTRIDGE SQ PRN ×4 (05:43→23:34)
[2018-11-24] MEDS: BLOOD SUGAR DIAGNOSTIC 1 EACH STRIP IN SCH ×4 (05:43→23:33)
[2018-11-24] MEDS: PANTOPRAZOLE 40 MG/PACK PACK GT SCH (05:43)
[2018-11-24 06:08] VITALS: BP 133/68
[2018-11-24 07:42] VITALS: BP 133/60
[2018-11-24] MEDS: DOCUSATE SODIUM LIQ 100 MG/10 ML UDC GT SCH ×2 (09:00→17:14)
[2018-11-24] MEDS: Z GUARD REMEDY 2 OZ OINT TP SCH ×2 (09:00→20:30)
[2018-11-24] MEDS: NYSTATIN TOP POWDER 15 GM BOTTLE TP SCH ×4 (09:00→20:30)
[2018-11-24] MEDS: FERROUS SULFATE - FOR SA ONLY 330 MG/7.5 ML UDC GT SCH (09:00)
[2018-11-24] MEDS: CLOTRIMAZOLE 1% 15 GM TUBE TP SCH ×2 (09:00→20:29)
[2018-11-24] MEDS: HYDROGEN PEROXIDE 480 ML BOTTLE TP SCH ×2 (09:00→20:29)
[2018-11-24] MEDS: THERAHONEY GEL 1.5 OZ TUBE TP SCH ×2 (09:00→20:30)
[2018-11-24] MEDS: MULTIVIT W/MINERALS 1 TAB TABLET GT SCH (09:01)
[2018-11-24] MEDS: ACIDOPHILUS/BULGARICUS 1 EACH TAB.CHEW GT SCH ×2 (09:01→17:14)
[2018-11-24] MEDS: LEVETIRACETAM SOL (5 ML) 100 MG/ML UDC GT SCH ×2 (09:01→20:28)
[2018-11-24] MEDS: ZINC SULFATE 220 MG CAPSULE GT SCH (09:02)
[2018-11-24] MEDS: ASCORBIC ACID 500 MG TABLET GT SCH (09:02)
[2018-11-24] MEDS: ACETAMINOPHEN 650 MG/20 ML UDC- SA PATIENTS-PAIN ONLY GT SCH ×2 (09:02→20:29)
[2018-11-24 12:00] VITALS: BP 143/69
--- NOTE | 2018-11-24 12:14 | NUR ---
Noted an order from Dr. Javier Pineda to increase Basaglar from 12 units to 14 units Q HS due to trending elevated blood sugar.
[2018-11-24 18:00] VITALS: BP 141/64
[2018-11-24 20:19] VITALS: BP 105/49
[2018-11-24] MEDS: ENOXAPARIN SODIUM 40 MG/0.4 ML DISP.SYRIN SQ SCH (20:29)
[2018-11-24] MEDS: ATORVASTATIN 10 MG TABLET GT SCH (21:36)
[2018-11-24] MEDS: INSULIN GLARGINE, 100 UNIT/ML CARTRIDGE SQ SCH (21:37)
[2018-11-25 00:15] VITALS: BP 137/82
[2018-11-25] MEDS: ALBUTEROL FS 2.5 MG/3 ML VIAL.NEB NEB SCH ×4 (01:41→19:30)
[2018-11-25] MEDS: IPRATROPIUM NEB FS 0.5 MG/2.5 ML AMPUL.NEB NEB SCH ×4 (01:41→19:30)
[2018-11-25] MEDS: PANTOPRAZOLE 40 MG/PACK PACK GT SCH (05:14)
[2018-11-25] MEDS: GLUCERNA 1.2 1,000 ML BOTTLE GT PRN (05:14)
[2018-11-25] MEDS: DILTIAZEM HCL 30 MG TABLET GT SCH ×3 (05:14→18:33)
[2018-11-25] MEDS: BLOOD SUGAR DIAGNOSTIC 1 EACH STRIP IN SCH ×3 (05:14→18:05)
[2018-11-25] MEDS: INSULIN ASPART/LISPRO 100 UNIT/ML CARTRIDGE SQ PRN ×3 (05:16→18:08)
[2018-11-25 06:04] VITALS: BP 113/57
[2018-11-25 07:28] VITALS: BP 115/74
[2018-11-25] MEDS: LEVETIRACETAM SOL (5 ML) 100 MG/ML UDC GT SCH ×2 (08:49→20:12)
[2018-11-25] MEDS: FERROUS SULFATE - FOR SA ONLY 330 MG/7.5 ML UDC GT SCH (08:49)
[2018-11-25] MEDS: ACIDOPHILUS/BULGARICUS 1 EACH TAB.CHEW GT SCH ×2 (08:49→16:32)
[2018-11-25] MEDS: DOCUSATE SODIUM LIQ 100 MG/10 ML UDC GT SCH ×2 (08:49→16:32)
[2018-11-25] MEDS: ASCORBIC ACID 500 MG TABLET GT SCH (08:50)
[2018-11-25] MEDS: ZINC SULFATE 220 MG CAPSULE GT SCH (08:50)
[2018-11-25] MEDS: MULTIVIT W/MINERALS 1 TAB TABLET GT SCH (08:50)
[2018-11-25] MEDS: ACETAMINOPHEN 650 MG/20 ML UDC- SA PATIENTS-PAIN ONLY GT SCH ×2 (08:50→20:15)
[2018-11-25] MEDS: Z GUARD REMEDY 2 OZ OINT TP SCH ×2 (09:00→21:48)
[2018-11-25] MEDS: HYDROGEN PEROXIDE 480 ML BOTTLE TP SCH ×2 (09:00→21:02)
[2018-11-25] MEDS: THERAHONEY GEL 1.5 OZ TUBE TP SCH ×2 (09:00→21:48)
[2018-11-25] MEDS: NYSTATIN TOP POWDER 15 GM BOTTLE TP SCH ×4 (09:00→21:47)
[2018-11-25] MEDS: CLOTRIMAZOLE 1% 15 GM TUBE TP SCH ×2 (09:00→21:47)
[2018-11-25 12:35] VITALS: BP 149/63
[2018-11-25 18:34] VITALS: BP 139/76
[2018-11-25 19:55] VITALS: BP 121/75
[2018-11-25] MEDS: ENOXAPARIN SODIUM 40 MG/0.4 ML DISP.SYRIN SQ SCH (21:43)
[2018-11-25] MEDS: ATORVASTATIN 10 MG TABLET GT SCH (21:52)
[2018-11-25] MEDS: INSULIN GLARGINE, 100 UNIT/ML CARTRIDGE SQ SCH (22:06)
[2018-11-26] VITALS: BP 129/72
[2018-11-26] MEDS: DILTIAZEM HCL 30 MG TABLET GT SCH ×5 (00:10→23:04)
[2018-11-26] MEDS: GLUCERNA 1.2 1,000 ML BOTTLE GT PRN ×2 (00:12→18:34)
[2018-11-26] MEDS: BLOOD SUGAR DIAGNOSTIC 1 EACH STRIP IN SCH ×5 (00:18→23:05)
[2018-11-26] MEDS: INSULIN ASPART/LISPRO 100 UNIT/ML CARTRIDGE SQ PRN ×5 (00:22→23:06)
[2018-11-26] MEDS: IPRATROPIUM NEB FS 0.5 MG/2.5 ML AMPUL.NEB NEB SCH ×4 (01:25→20:02)
[2018-11-26] MEDS: ALBUTEROL FS 2.5 MG/3 ML VIAL.NEB NEB SCH ×4 (01:26→20:02)
[2018-11-26] MEDS: PANTOPRAZOLE 40 MG/PACK PACK GT SCH (05:10)
[2018-11-26 06:27] VITALS: BP 153/76
[2018-11-26 08:07] VITALS: BP 142/67
[2018-11-26] MEDS: MULTIVIT W/MINERALS 1 TAB TABLET GT SCH (09:00)
[2018-11-26] MEDS: HYDROGEN PEROXIDE 480 ML BOTTLE TP SCH ×2 (09:00→20:02)
[2018-11-26] MEDS: NYSTATIN TOP POWDER 15 GM BOTTLE TP SCH ×4 (09:00→21:07)
[2018-11-26] MEDS: DOCUSATE SODIUM LIQ 100 MG/10 ML UDC GT SCH ×2 (09:00→17:20)
[2018-11-26] MEDS: ASCORBIC ACID 500 MG TABLET GT SCH (09:00)
[2018-11-26] MEDS: LEVETIRACETAM SOL (5 ML) 100 MG/ML UDC GT SCH ×2 (09:00→20:33)
[2018-11-26] MEDS: ZINC SULFATE 220 MG CAPSULE GT SCH (09:00)
[2018-11-26] MEDS: FERROUS SULFATE - FOR SA ONLY 330 MG/7.5 ML UDC GT SCH (09:00)
[2018-11-26] MEDS: Z GUARD REMEDY 2 OZ OINT TP SCH ×2 (09:00→21:07)
[2018-11-26] MEDS: CLOTRIMAZOLE 1% 15 GM TUBE TP SCH ×2 (09:00→21:07)
[2018-11-26] MEDS: ACIDOPHILUS/BULGARICUS 1 EACH TAB.CHEW GT SCH ×2 (09:00→17:20)
[2018-11-26] MEDS: THERAHONEY GEL 1.5 OZ TUBE TP SCH ×2 (09:00→21:08)
[2018-11-26] MEDS: ACETAMINOPHEN 650 MG/20 ML UDC- SA PATIENTS-PAIN ONLY GT SCH ×2 (09:00→20:33)
[2018-11-26 15:22] VITALS: BP 126/71
[2018-11-26 18:48] VITALS: BP 131/76
[2018-11-26] MEDS: ENOXAPARIN SODIUM 40 MG/0.4 ML DISP.SYRIN SQ SCH (20:33)
[2018-11-26 20:38] VITALS: BP 100/52
[2018-11-26] MEDS: ATORVASTATIN 10 MG TABLET GT SCH (22:13)
[2018-11-26] MEDS: INSULIN GLARGINE, 100 UNIT/ML CARTRIDGE SQ SCH (22:14)
[2018-11-27 00:39] VITALS: BP 98/58
[2018-11-27] MEDS: ALBUTEROL FS 2.5 MG/3 ML VIAL.NEB NEB SCH ×4 (02:00→19:48)
[2018-11-27] MEDS: IPRATROPIUM NEB FS 0.5 MG/2.5 ML AMPUL.NEB NEB SCH ×4 (02:00→19:48)
[2018-11-27] MEDS: PANTOPRAZOLE 40 MG/PACK PACK GT SCH (05:05)
[2018-11-27] MEDS: DILTIAZEM HCL 30 MG TABLET GT SCH ×4 (05:05→23:19)
[2018-11-27] MEDS: BLOOD SUGAR DIAGNOSTIC 1 EACH STRIP IN SCH ×4 (05:48→23:15)
[2018-11-27] MEDS: INSULIN ASPART/LISPRO 100 UNIT/ML CARTRIDGE SQ PRN ×4 (05:49→23:18)
[2018-11-27 06:18] VITALS: BP 108/60
[2018-11-27 07:32] VITALS: BP 142/70
[2018-11-27] MEDS: HYDROGEN PEROXIDE 480 ML BOTTLE TP SCH ×2 (08:28→19:48)
[2018-11-27] MEDS: MULTIVIT W/MINERALS 1 TAB TABLET GT SCH (09:48)
[2018-11-27] MEDS: ACIDOPHILUS/BULGARICUS 1 EACH TAB.CHEW GT SCH ×2 (09:48→17:00)
[2018-11-27] MEDS: FERROUS SULFATE - FOR SA ONLY 330 MG/7.5 ML UDC GT SCH (09:48)
[2018-11-27] MEDS: DOCUSATE SODIUM LIQ 100 MG/10 ML UDC GT SCH ×2 (09:48→17:00)
[2018-11-27] MEDS: LEVETIRACETAM SOL (5 ML) 100 MG/ML UDC GT SCH ×2 (09:48→20:52)
[2018-11-27] MEDS: ASCORBIC ACID 500 MG TABLET GT SCH (09:50)
[2018-11-27] MEDS: ZINC SULFATE 220 MG CAPSULE GT SCH (09:50)
[2018-11-27] MEDS: ACETAMINOPHEN 650 MG/20 ML UDC- SA PATIENTS-PAIN ONLY GT SCH ×2 (09:50→20:53)
[2018-11-27] MEDS: Z GUARD REMEDY 2 OZ OINT TP SCH ×2 (09:52→21:48)
[2018-11-27] MEDS: CLOTRIMAZOLE 1% 15 GM TUBE TP SCH ×2 (09:52→21:47)
[2018-11-27] MEDS: THERAHONEY GEL 1.5 OZ TUBE TP SCH ×2 (09:52→21:48)
[2018-11-27] MEDS: NYSTATIN TOP POWDER 15 GM BOTTLE TP SCH ×4 (09:52→21:48)
[2018-11-27] MEDS: GLUCERNA 1.2 1,000 ML BOTTLE GT PRN (11:37)
[2018-11-27 12:14] VITALS: BP 128/65
--- NOTE | 2018-11-27 18:10 | NUR ---
Received order from Dr Pineda to increase insulin glargine from 14 to 18 units SC q HS, CBC BMP Mg Phos in AM.
[2018-11-27 18:40] VITALS: BP 128/82
[2018-11-27 20:23] VITALS: BP 135/75
[2018-11-27] MEDS: ENOXAPARIN SODIUM 40 MG/0.4 ML DISP.SYRIN SQ SCH (20:53)
[2018-11-27] MEDS: ATORVASTATIN 10 MG TABLET GT SCH (21:06)
[2018-11-27] MEDS: INSULIN GLARGINE, 100 UNIT/ML CARTRIDGE SQ SCH (21:06)
[2018-11-28] VITALS (7 sets, daily range): BP systolic 108–144; BP diastolic 58–77
[2018-11-28] MEDS: ALBUTEROL FS 2.5 MG/3 ML VIAL.NEB NEB SCH ×4 (01:30→19:36)
[2018-11-28] MEDS: IPRATROPIUM NEB FS 0.5 MG/2.5 ML AMPUL.NEB NEB SCH ×4 (01:30→19:36)
[2018-11-28] MEDS: DILTIAZEM HCL 30 MG TABLET GT SCH ×4 (05:37→23:08)
[2018-11-28] MEDS: PANTOPRAZOLE 40 MG/PACK PACK GT SCH (05:37)
[2018-11-28] MEDS: BLOOD SUGAR DIAGNOSTIC 1 EACH STRIP IN SCH ×4 (05:37→23:08)
[2018-11-28] MEDS: INSULIN ASPART/LISPRO 100 UNIT/ML CARTRIDGE SQ PRN ×4 (05:38→23:10)
[2018-11-28 07:24] LABS: CALCIUM, SERUM 8.6 mg/dL (8.5-10.1); CREATININE 0.9 mg/dL (0.6-1.3); MAGNESIUM 2.4 mg/dL (1.8-2.4); PHOSPHORUS 3.4 mg/dL (2.5-4.9); POTASSIUM 5.2 mmol/L (3.5-5.1)
[2018-11-28 07:41] LABS: BASOPHILS # (AUTO) 0.1 /CMM (0.0-0.2); BASOPHILS % (AUTO) 0.7 % (0.0-2.0); EOSINOPHILS % (AUTO) 3.7 % (0.0-6.0); HEMATOCRIT 31 % (33-45); LYMPHOCYTES # (AUTO) 2.7 /CMM (0.8-4.8); LYMPHOCYTES % (AUTO) 32.1 % (20.0-44.0); MEAN CORPUSCULAR HGB CONC 32 g/dl (31.0-36.0); MEAN CORPUSCULAR VOLUME 90 fL (82-100); MONOCYTES # (AUTO) 0.6 /CMM (0.1-1.30); MONOCYTES % (AUTO) 7.6 % (2.0-12.0); NEUTROPHILS # (AUTO) 4.7 /CMM (1.8-8.9); NEUTROPHILS % (AUTO) 55.9 % (43.0-81.0); PLATELET COUNT (AUTO) 347 /CMM (150-450); RED BLOOD CELL COUNT(AUTO) 3.48 MIL/uL (4.0-5.2); WHITE BLOOD COUNT (AUTO) 8.4 K/uL (4.3-11.0)
[2018-11-28] MEDS: CLOTRIMAZOLE 1% 15 GM TUBE TP SCH ×2 (09:00→21:47)
[2018-11-28] MEDS: NYSTATIN TOP POWDER 15 GM BOTTLE TP SCH ×4 (09:00→21:47)
[2018-11-28] MEDS: Z GUARD REMEDY 2 OZ OINT TP SCH ×2 (09:00→21:48)
[2018-11-28] MEDS: HYDROGEN PEROXIDE 480 ML BOTTLE TP SCH ×2 (09:00→19:36)
[2018-11-28] MEDS: THERAHONEY GEL 1.5 OZ TUBE TP SCH ×2 (09:00→21:48)
[2018-11-28] MEDS: LEVETIRACETAM SOL (5 ML) 100 MG/ML UDC GT SCH ×2 (09:13→20:54)
[2018-11-28] MEDS: FERROUS SULFATE - FOR SA ONLY 330 MG/7.5 ML UDC GT SCH (09:13)
[2018-11-28] MEDS: ACIDOPHILUS/BULGARICUS 1 EACH TAB.CHEW GT SCH ×2 (09:13→17:15)
[2018-11-28] MEDS: MULTIVIT W/MINERALS 1 TAB TABLET GT SCH (09:13)
[2018-11-28] MEDS: DOCUSATE SODIUM LIQ 100 MG/10 ML UDC GT SCH ×2 (09:13→17:15)
[2018-11-28] MEDS: ACETAMINOPHEN 650 MG/20 ML UDC- SA PATIENTS-PAIN ONLY GT SCH ×2 (09:14→20:56)
[2018-11-28] MEDS: ZINC SULFATE 220 MG CAPSULE GT SCH (09:14)
[2018-11-28] MEDS: ASCORBIC ACID 500 MG TABLET GT SCH (09:14)
--- NOTE | 2018-11-28 13:00 | NUR ---
Seen and examined by Kennedi Bender NP, no new order given.
[2018-11-28] MEDS: ENOXAPARIN SODIUM 40 MG/0.4 ML DISP.SYRIN SQ SCH (20:55)
[2018-11-28] MEDS: GLUCERNA 1.2 1,000 ML BOTTLE GT PRN (20:56)
[2018-11-28] MEDS: ATORVASTATIN 10 MG TABLET GT SCH (21:48)
[2018-11-28] MEDS: INSULIN GLARGINE, 100 UNIT/ML CARTRIDGE SQ SCH (22:09)
[2018-11-29 00:28] VITALS: BP 122/65
[2018-11-29] MEDS: ALBUTEROL FS 2.5 MG/3 ML VIAL.NEB NEB SCH ×4 (01:51→19:49)
[2018-11-29] MEDS: IPRATROPIUM NEB FS 0.5 MG/2.5 ML AMPUL.NEB NEB SCH ×4 (01:51→19:49)
[2018-11-29] MEDS: PANTOPRAZOLE 40 MG/PACK PACK GT SCH (05:04)
[2018-11-29] MEDS: DILTIAZEM HCL 30 MG TABLET GT SCH ×4 (05:04→23:31)
[2018-11-29] MEDS: BLOOD SUGAR DIAGNOSTIC 1 EACH STRIP IN SCH ×4 (05:50→23:31)
[2018-11-29] MEDS: INSULIN ASPART/LISPRO 100 UNIT/ML CARTRIDGE SQ PRN ×4 (05:51→23:32)
[2018-11-29 06:15] VITALS: BP 130/70
[2018-11-29 07:57] VITALS: BP 145/76
[2018-11-29] MEDS: NYSTATIN TOP POWDER 15 GM BOTTLE TP SCH ×4 (09:00→21:12)
[2018-11-29] MEDS: Z GUARD REMEDY 2 OZ OINT TP SCH ×2 (09:00→21:13)
[2018-11-29] MEDS: FERROUS SULFATE - FOR SA ONLY 330 MG/7.5 ML UDC GT SCH (09:00)
[2018-11-29] MEDS: ZINC SULFATE 220 MG CAPSULE GT SCH (09:00)
[2018-11-29] MEDS: THERAHONEY GEL 1.5 OZ TUBE TP SCH ×2 (09:00→21:13)
[2018-11-29] MEDS: ASCORBIC ACID 500 MG TABLET GT SCH (09:00)
[2018-11-29] MEDS: LEVETIRACETAM SOL (5 ML) 100 MG/ML UDC GT SCH ×2 (09:00→21:12)
[2018-11-29] MEDS: MULTIVIT W/MINERALS 1 TAB TABLET GT SCH (09:00)
[2018-11-29] MEDS: ACIDOPHILUS/BULGARICUS 1 EACH TAB.CHEW GT SCH ×2 (09:00→17:10)
[2018-11-29] MEDS: CLOTRIMAZOLE 1% 15 GM TUBE TP SCH ×2 (09:00→21:12)
[2018-11-29] MEDS: ACETAMINOPHEN 650 MG/20 ML UDC- SA PATIENTS-PAIN ONLY GT SCH ×2 (09:00→21:12)
[2018-11-29] MEDS: DOCUSATE SODIUM LIQ 100 MG/10 ML UDC GT SCH ×2 (09:00→17:10)
[2018-11-29] MEDS: HYDROGEN PEROXIDE 480 ML BOTTLE TP SCH ×2 (09:00→20:30)
--- NOTE | 2018-11-29 11:03 | NUR ---
Dental Appointment: ORACIO called Dr. Teran office [TEL:[phone]] and spoke to Mystery to schedule residents annual Dental Cleaning appointment. Per Mystery, the dentist, Dr. Pruett is available to come to [facility] and provide cleaning on 12/12/18 after 12 noon. ORACIO faxed pt.s facesheet to FAX: [phone] per Mysterys request. ORACIO informed family and charge nurse.
[2018-11-29] MEDS: GLUCERNA 1.2 1,000 ML BOTTLE GT PRN (12:36)
[2018-11-29 14:58] VITALS: BP 142/68
[2018-11-29 18:14] VITALS: BP 134/70
[2018-11-29 20:33] VITALS: BP 137/75
--- NOTE | 2018-11-29 21:10 | NUR ---
SEEN BY HARMONY WALDRON.
[2018-11-29] MEDS: ENOXAPARIN SODIUM 40 MG/0.4 ML DISP.SYRIN SQ SCH (21:12)
[2018-11-29] MEDS: ATORVASTATIN 10 MG TABLET GT SCH (21:13)
[2018-11-29] MEDS: INSULIN GLARGINE, 100 UNIT/ML CARTRIDGE SQ SCH (21:14)
[2018-11-30] MEDS: ALBUTEROL FS 2.5 MG/3 ML VIAL.NEB NEB SCH ×4 (00:30→19:39)
[2018-11-30] MEDS: IPRATROPIUM NEB FS 0.5 MG/2.5 ML AMPUL.NEB NEB SCH ×4 (00:30→19:39)
[2018-11-30 01:00] VITALS: BP 138/52
[2018-11-30] MEDS: GLUCERNA 1.2 1,000 ML BOTTLE GT PRN ×2 (03:38→17:22)
[2018-11-30] MEDS: BLOOD SUGAR DIAGNOSTIC 1 EACH STRIP IN SCH ×4 (05:57→23:45)
[2018-11-30] MEDS: DILTIAZEM HCL 30 MG TABLET GT SCH ×4 (05:57→23:45)
[2018-11-30] MEDS: PANTOPRAZOLE 40 MG/PACK PACK GT SCH (05:57)
[2018-11-30] MEDS: INSULIN ASPART/LISPRO 100 UNIT/ML CARTRIDGE SQ PRN ×4 (05:58→23:48)
[2018-11-30 06:00] VITALS: BP 113/73
[2018-11-30 07:37] VITALS: BP 139/76
[2018-11-30] MEDS: ACIDOPHILUS/BULGARICUS 1 EACH TAB.CHEW GT SCH ×2 (08:56→17:16)
[2018-11-30] MEDS: FERROUS SULFATE - FOR SA ONLY 330 MG/7.5 ML UDC GT SCH (08:56)
[2018-11-30] MEDS: LEVETIRACETAM SOL (5 ML) 100 MG/ML UDC GT SCH ×2 (08:56→20:10)
[2018-11-30] MEDS: MULTIVIT W/MINERALS 1 TAB TABLET GT SCH (08:56)
[2018-11-30] MEDS: DOCUSATE SODIUM LIQ 100 MG/10 ML UDC GT SCH ×2 (08:56→17:16)
[2018-11-30] MEDS: ACETAMINOPHEN 650 MG/20 ML UDC- SA PATIENTS-PAIN ONLY GT SCH ×2 (08:57→20:11)
[2018-11-30] MEDS: ASCORBIC ACID 500 MG TABLET GT SCH (08:57)
[2018-11-30] MEDS: ZINC SULFATE 220 MG CAPSULE GT SCH (08:57)
[2018-11-30] MEDS: NYSTATIN TOP POWDER 15 GM BOTTLE TP SCH ×4 (09:00→20:46)
[2018-11-30] MEDS: HYDROGEN PEROXIDE 480 ML BOTTLE TP SCH ×2 (09:00→19:39)
[2018-11-30] MEDS: CLOTRIMAZOLE 1% 15 GM TUBE TP SCH ×2 (09:00→20:45)
[2018-11-30] MEDS: THERAHONEY GEL 1.5 OZ TUBE TP SCH ×2 (09:00→20:46)
[2018-11-30] MEDS: Z GUARD REMEDY 2 OZ OINT TP SCH ×2 (09:00→20:46)
[2018-11-30 11:54] VITALS: BP 131/68
[2018-11-30 18:39] VITALS: BP 138/89
[2018-11-30 20:04] VITALS: BP 103/60
[2018-11-30] MEDS: ENOXAPARIN SODIUM 40 MG/0.4 ML DISP.SYRIN SQ SCH (20:12)
[2018-11-30] MEDS: ATORVASTATIN 10 MG TABLET GT SCH (22:04)
[2018-11-30] MEDS: INSULIN GLARGINE, 100 UNIT/ML CARTRIDGE SQ SCH (22:05)
[2018-12-01] VITALS (7 sets, daily range): BP systolic 103–141; BP diastolic 49–88
[2018-12-01] MEDS: IPRATROPIUM NEB FS 0.5 MG/2.5 ML AMPUL.NEB NEB SCH ×4 (01:41→19:30)
[2018-12-01] MEDS: ALBUTEROL FS 2.5 MG/3 ML VIAL.NEB NEB SCH ×4 (01:41→19:30)
[2018-12-01] MEDS: BLOOD SUGAR DIAGNOSTIC 1 EACH STRIP IN SCH ×3 (05:26→18:25)
[2018-12-01] MEDS: INSULIN ASPART/LISPRO 100 UNIT/ML CARTRIDGE SQ PRN ×3 (05:28→18:30)
[2018-12-01] MEDS: PANTOPRAZOLE 40 MG/PACK PACK GT SCH (06:04)
[2018-12-01] MEDS: DILTIAZEM HCL 30 MG TABLET GT SCH ×3 (06:04→18:25)
[2018-12-01] MEDS: ACETAMINOPHEN 650 MG/20 ML UDC- SA PATIENTS-PAIN ONLY GT SCH ×2 (09:00→20:11)
[2018-12-01] MEDS: DOCUSATE SODIUM LIQ 100 MG/10 ML UDC GT SCH ×2 (09:00→17:00)
[2018-12-01] MEDS: Z GUARD REMEDY 2 OZ OINT TP SCH ×2 (09:00→20:12)
[2018-12-01] MEDS: FERROUS SULFATE - FOR SA ONLY 330 MG/7.5 ML UDC GT SCH (09:00)
[2018-12-01] MEDS: ZINC SULFATE 220 MG CAPSULE GT SCH (09:00)
[2018-12-01] MEDS: HYDROGEN PEROXIDE 480 ML BOTTLE TP SCH ×2 (09:00→19:30)
[2018-12-01] MEDS: ASCORBIC ACID 500 MG TABLET GT SCH (09:00)
[2018-12-01] MEDS: NYSTATIN TOP POWDER 15 GM BOTTLE TP SCH ×4 (09:00→20:12)
[2018-12-01] MEDS: THERAHONEY GEL 1.5 OZ TUBE TP SCH ×2 (09:00→20:13)
[2018-12-01] MEDS: CLOTRIMAZOLE 1% 15 GM TUBE TP SCH ×2 (09:00→20:12)
[2018-12-01] MEDS: ACIDOPHILUS/BULGARICUS 1 EACH TAB.CHEW GT SCH ×2 (09:00→17:00)
[2018-12-01] MEDS: LEVETIRACETAM SOL (5 ML) 100 MG/ML UDC GT SCH ×2 (09:00→20:11)
[2018-12-01] MEDS: MULTIVIT W/MINERALS 1 TAB TABLET GT SCH (09:00)
[2018-12-01] MEDS: GLUCERNA 1.2 1,000 ML BOTTLE GT PRN (13:42)
[2018-12-01] MEDS: ENOXAPARIN SODIUM 40 MG/0.4 ML DISP.SYRIN SQ SCH (20:12)
[2018-12-01] MEDS: ATORVASTATIN 10 MG TABLET GT SCH (21:01)
[2018-12-01] MEDS: INSULIN GLARGINE, 100 UNIT/ML CARTRIDGE SQ SCH (21:56)
[2018-12-02] VITALS: BP 119/71
[2018-12-02] MEDS: BLOOD SUGAR DIAGNOSTIC 1 EACH STRIP IN SCH ×4 (00:31→18:01)
[2018-12-02] MEDS: DILTIAZEM HCL 30 MG TABLET GT SCH ×4 (00:32→18:01)
[2018-12-02] MEDS: INSULIN ASPART/LISPRO 100 UNIT/ML CARTRIDGE SQ PRN ×4 (00:35→18:03)
[2018-12-02] MEDS: IPRATROPIUM NEB FS 0.5 MG/2.5 ML AMPUL.NEB NEB SCH ×4 (01:36→19:38)
[2018-12-02] MEDS: ALBUTEROL FS 2.5 MG/3 ML VIAL.NEB NEB SCH ×4 (01:36→19:38)
[2018-12-02] MEDS: GLUCERNA 1.2 1,000 ML BOTTLE GT PRN ×2 (04:15→21:42)
[2018-12-02 06:00] VITALS: BP 132/68
[2018-12-02] MEDS: PANTOPRAZOLE 40 MG/PACK PACK GT SCH (06:05)
[2018-12-02 07:40] VITALS: BP 148/71
[2018-12-02] MEDS: HYDROGEN PEROXIDE 480 ML BOTTLE TP SCH ×2 (08:26→21:00)
[2018-12-02] MEDS: DOCUSATE SODIUM LIQ 100 MG/10 ML UDC GT SCH ×2 (09:39→17:00)
[2018-12-02] MEDS: ACIDOPHILUS/BULGARICUS 1 EACH TAB.CHEW GT SCH ×2 (09:39→17:00)
[2018-12-02] MEDS: MULTIVIT W/MINERALS 1 TAB TABLET GT SCH (09:39)
[2018-12-02] MEDS: LEVETIRACETAM SOL (5 ML) 100 MG/ML UDC GT SCH ×2 (09:39→20:04)
[2018-12-02] MEDS: FERROUS SULFATE - FOR SA ONLY 330 MG/7.5 ML UDC GT SCH (09:39)
[2018-12-02] MEDS: ZINC SULFATE 220 MG CAPSULE GT SCH (09:40)
[2018-12-02] MEDS: ACETAMINOPHEN 650 MG/20 ML UDC- SA PATIENTS-PAIN ONLY GT SCH ×2 (09:40→20:04)
[2018-12-02] MEDS: NYSTATIN TOP POWDER 15 GM BOTTLE TP SCH ×4 (09:40→20:06)
[2018-12-02] MEDS: CLOTRIMAZOLE 1% 15 GM TUBE TP SCH (09:40)
[2018-12-02] MEDS: ASCORBIC ACID 500 MG TABLET GT SCH (09:40)
[2018-12-02] MEDS: Z GUARD REMEDY 2 OZ OINT TP SCH ×2 (09:41→20:06)
[2018-12-02] MEDS: THERAHONEY GEL 1.5 OZ TUBE TP SCH (09:41)
[2018-12-02 15:41] VITALS: BP 122/68
[2018-12-02 18:04] VITALS: BP 121/69
[2018-12-02] MEDS: ENOXAPARIN SODIUM 40 MG/0.4 ML DISP.SYRIN SQ SCH (20:05)
[2018-12-02 20:34] VITALS: BP 116/66
[2018-12-02] MEDS: ATORVASTATIN 10 MG TABLET GT SCH (21:28)
[2018-12-02] MEDS: INSULIN GLARGINE, 100 UNIT/ML CARTRIDGE SQ SCH (21:28)
[2018-12-03 00:58] VITALS: BP 119/72
[2018-12-03] MEDS: INSULIN ASPART/LISPRO 100 UNIT/ML CARTRIDGE SQ PRN ×4 (01:05→17:15)
[2018-12-03] MEDS: IPRATROPIUM NEB FS 0.5 MG/2.5 ML AMPUL.NEB NEB SCH ×4 (01:22→19:32)
[2018-12-03] MEDS: ALBUTEROL FS 2.5 MG/3 ML VIAL.NEB NEB SCH ×4 (01:22→19:32)
[2018-12-03] MEDS: DILTIAZEM HCL 30 MG TABLET GT SCH ×4 (05:34→17:14)
[2018-12-03] MEDS: PANTOPRAZOLE 40 MG/PACK PACK GT SCH (05:35)
[2018-12-03] MEDS: BLOOD SUGAR DIAGNOSTIC 1 EACH STRIP IN SCH ×4 (05:35→17:14)
[2018-12-03 06:25] VITALS: BP 132/80
[2018-12-03 07:39] VITALS: BP 134/85
[2018-12-03] MEDS: HYDROGEN PEROXIDE 480 ML BOTTLE TP SCH ×2 (09:00→19:32)
[2018-12-03] MEDS: FERROUS SULFATE - FOR SA ONLY 330 MG/7.5 ML UDC GT SCH (09:24)
[2018-12-03] MEDS: DOCUSATE SODIUM LIQ 100 MG/10 ML UDC GT SCH ×2 (09:24→16:20)
[2018-12-03] MEDS: MULTIVIT W/MINERALS 1 TAB TABLET GT SCH (09:25)
[2018-12-03] MEDS: LEVETIRACETAM SOL (5 ML) 100 MG/ML UDC GT SCH ×2 (09:25→20:15)
[2018-12-03] MEDS: ACIDOPHILUS/BULGARICUS 1 EACH TAB.CHEW GT SCH ×2 (09:25→16:20)
[2018-12-03] MEDS: ZINC SULFATE 220 MG CAPSULE GT SCH (09:26)
[2018-12-03] MEDS: ACETAMINOPHEN 650 MG/20 ML UDC- SA PATIENTS-PAIN ONLY GT SCH ×2 (09:26→20:16)
[2018-12-03] MEDS: ASCORBIC ACID 500 MG TABLET GT SCH (09:26)
[2018-12-03] MEDS: NYSTATIN TOP POWDER 15 GM BOTTLE TP SCH ×4 (09:27→20:17)
--- NOTE | 2018-12-03 10:35 | NUR ---
Dr Martin ordered to increase Basaglar Kwikpen insulin from 18 to 22 units SC q HS. Notified Kelly.
[2018-12-03] MEDS: Z GUARD REMEDY 2 OZ OINT TP SCH ×2 (11:32→20:17)
[2018-12-03 12:00] VITALS: BP 128/76
[2018-12-03] MEDS: GLUCERNA 1.2 1,000 ML BOTTLE GT PRN (17:16)
[2018-12-03 18:00] VITALS: BP 126/72
[2018-12-03 20:11] VITALS: BP 117/73
[2018-12-03] MEDS: ENOXAPARIN SODIUM 40 MG/0.4 ML DISP.SYRIN SQ SCH (20:17)
[2018-12-03] MEDS: ATORVASTATIN 10 MG TABLET GT SCH (21:01)
[2018-12-03] MEDS: INSULIN GLARGINE, 100 UNIT/ML CARTRIDGE SQ SCH (21:45)
[2018-12-04] VITALS (7 sets, daily range): BP systolic 112–154; BP diastolic 56–84
[2018-12-04] MEDS: DILTIAZEM HCL 30 MG TABLET GT SCH ×4 (00:06→18:46)
[2018-12-04] MEDS: BLOOD SUGAR DIAGNOSTIC 1 EACH STRIP IN SCH ×4 (00:20→18:46)
[2018-12-04] MEDS: INSULIN ASPART/LISPRO 100 UNIT/ML CARTRIDGE SQ PRN ×4 (00:23→18:47)
[2018-12-04] MEDS: ALBUTEROL FS 2.5 MG/3 ML VIAL.NEB NEB SCH ×4 (01:37→19:20)
[2018-12-04] MEDS: IPRATROPIUM NEB FS 0.5 MG/2.5 ML AMPUL.NEB NEB SCH ×4 (01:37→19:20)
[2018-12-04] MEDS: PANTOPRAZOLE 40 MG/PACK PACK GT SCH (05:26)
[2018-12-04] MEDS: HYDROGEN PEROXIDE 480 ML BOTTLE TP SCH ×2 (09:00→19:20)
[2018-12-04] MEDS: ACETAMINOPHEN 650 MG/20 ML UDC- SA PATIENTS-PAIN ONLY GT SCH ×2 (09:13→20:10)
[2018-12-04] MEDS: NYSTATIN TOP POWDER 15 GM BOTTLE TP SCH ×4 (09:13→20:12)
[2018-12-04] MEDS: ASCORBIC ACID 500 MG TABLET GT SCH (09:13)
[2018-12-04] MEDS: ACIDOPHILUS/BULGARICUS 1 EACH TAB.CHEW GT SCH ×2 (09:13→17:00)
[2018-12-04] MEDS: ZINC SULFATE 220 MG CAPSULE GT SCH (09:13)
[2018-12-04] MEDS: FERROUS SULFATE - FOR SA ONLY 330 MG/7.5 ML UDC GT SCH (09:13)
[2018-12-04] MEDS: MULTIVIT W/MINERALS 1 TAB TABLET GT SCH (09:13)
[2018-12-04] MEDS: LEVETIRACETAM SOL (5 ML) 100 MG/ML UDC GT SCH ×2 (09:13→20:08)
[2018-12-04] MEDS: DOCUSATE SODIUM LIQ 100 MG/10 ML UDC GT SCH ×2 (09:13→17:00)
[2018-12-04] MEDS: Z GUARD REMEDY 2 OZ OINT TP SCH ×2 (09:14→20:12)
[2018-12-04] MEDS: GLUCERNA 1.2 1,000 ML BOTTLE GT PRN (12:58)
[2018-12-04] MEDS: ENOXAPARIN SODIUM 40 MG/0.4 ML DISP.SYRIN SQ SCH (20:11)
[2018-12-04] MEDS: ATORVASTATIN 10 MG TABLET GT SCH (21:43)
[2018-12-04] MEDS: INSULIN GLARGINE, 100 UNIT/ML CARTRIDGE SQ SCH (21:44)
[2018-12-05] MEDS: BLOOD SUGAR DIAGNOSTIC 1 EACH STRIP IN SCH ×4 (00:06→17:03)
[2018-12-05] MEDS: DILTIAZEM HCL 30 MG TABLET GT SCH ×4 (00:06→17:03)
[2018-12-05] MEDS: INSULIN ASPART/LISPRO 100 UNIT/ML CARTRIDGE SQ PRN ×4 (00:07→17:06)
[2018-12-05 00:11] VITALS: BP 134/91
[2018-12-05] MEDS: ALBUTEROL FS 2.5 MG/3 ML VIAL.NEB NEB SCH ×4 (01:30→19:30)
[2018-12-05] MEDS: IPRATROPIUM NEB FS 0.5 MG/2.5 ML AMPUL.NEB NEB SCH ×4 (01:30→19:30)
[2018-12-05] MEDS: PANTOPRAZOLE 40 MG/PACK PACK GT SCH (05:08)
[2018-12-05] MEDS: GLUCERNA 1.2 1,000 ML BOTTLE GT PRN ×2 (05:24→22:46)
[2018-12-05 06:11] VITALS: BP 123/67
[2018-12-05 07:35] VITALS: BP 127/71
[2018-12-05] MEDS: ACIDOPHILUS/BULGARICUS 1 EACH TAB.CHEW GT SCH ×2 (08:35→16:57)
[2018-12-05] MEDS: FERROUS SULFATE - FOR SA ONLY 330 MG/7.5 ML UDC GT SCH (08:35)
[2018-12-05] MEDS: DOCUSATE SODIUM LIQ 100 MG/10 ML UDC GT SCH ×2 (08:35→16:57)
[2018-12-05] MEDS: MULTIVIT W/MINERALS 1 TAB TABLET GT SCH (08:35)
[2018-12-05] MEDS: LEVETIRACETAM SOL (5 ML) 100 MG/ML UDC GT SCH ×2 (08:35→21:23)
[2018-12-05] MEDS: ASCORBIC ACID 500 MG TABLET GT SCH (08:36)
[2018-12-05] MEDS: ACETAMINOPHEN 650 MG/20 ML UDC- SA PATIENTS-PAIN ONLY GT SCH ×2 (08:36→21:23)
[2018-12-05] MEDS: ZINC SULFATE 220 MG CAPSULE GT SCH (08:36)
[2018-12-05] MEDS: HYDROGEN PEROXIDE 480 ML BOTTLE TP SCH ×2 (09:00→19:30)
[2018-12-05] MEDS: NYSTATIN TOP POWDER 15 GM BOTTLE TP SCH ×4 (09:00→21:52)
[2018-12-05] MEDS: Z GUARD REMEDY 2 OZ OINT TP SCH ×2 (09:00→21:52)
[2018-12-05 12:00] VITALS: BP 127/71
[2018-12-05 18:00] VITALS: BP 138/83
[2018-12-05 20:00] VITALS: BP 134/62
[2018-12-05] MEDS: ATORVASTATIN 10 MG TABLET GT SCH (21:24)
[2018-12-05] MEDS: ENOXAPARIN SODIUM 40 MG/0.4 ML DISP.SYRIN SQ SCH (21:24)
[2018-12-05] MEDS: INSULIN GLARGINE, 100 UNIT/ML CARTRIDGE SQ SCH (22:45)
[2018-12-06] MEDS: DILTIAZEM HCL 30 MG TABLET GT SCH ×4 (00:48→17:28)
[2018-12-06] MEDS: BLOOD SUGAR DIAGNOSTIC 1 EACH STRIP IN SCH ×4 (00:48→18:46)
[2018-12-06 00:50] VITALS: BP 132/99
[2018-12-06] MEDS: INSULIN ASPART/LISPRO 100 UNIT/ML CARTRIDGE SQ PRN ×4 (00:50→18:47)
[2018-12-06] MEDS: IPRATROPIUM NEB FS 0.5 MG/2.5 ML AMPUL.NEB NEB SCH ×4 (01:35→20:28)
[2018-12-06] MEDS: ALBUTEROL FS 2.5 MG/3 ML VIAL.NEB NEB SCH ×4 (01:35→20:28)
[2018-12-06 06:05] VITALS: BP 128/72
[2018-12-06] MEDS: PANTOPRAZOLE 40 MG/PACK PACK GT SCH (06:05)
[2018-12-06 07:47] VITALS: BP 119/74
[2018-12-06] MEDS: HYDROGEN PEROXIDE 480 ML BOTTLE TP SCH ×2 (09:00→20:33)
[2018-12-06] MEDS: THERAHONEY GEL 1.5 OZ TUBE TP SCH ×2 (09:00→21:58)
[2018-12-06] MEDS: Z GUARD REMEDY 2 OZ OINT TP SCH ×2 (09:00→21:57)
[2018-12-06] MEDS: NYSTATIN TOP POWDER 15 GM BOTTLE TP SCH ×4 (09:00→21:57)
[2018-12-06] MEDS: ASCORBIC ACID 500 MG TABLET GT SCH (09:49)
[2018-12-06] MEDS: FERROUS SULFATE - FOR SA ONLY 330 MG/7.5 ML UDC GT SCH (09:49)
[2018-12-06] MEDS: ACIDOPHILUS/BULGARICUS 1 EACH TAB.CHEW GT SCH ×2 (09:49→17:28)
[2018-12-06] MEDS: MULTIVIT W/MINERALS 1 TAB TABLET GT SCH (09:49)
[2018-12-06] MEDS: DOCUSATE SODIUM LIQ 100 MG/10 ML UDC GT SCH ×2 (09:49→17:28)
[2018-12-06] MEDS: LEVETIRACETAM SOL (5 ML) 100 MG/ML UDC GT SCH ×2 (09:49→21:45)
[2018-12-06] MEDS: ACETAMINOPHEN 650 MG/20 ML UDC- SA PATIENTS-PAIN ONLY GT SCH ×2 (09:49→21:37)
[2018-12-06] MEDS: ZINC SULFATE 220 MG CAPSULE GT SCH (09:49)
[2018-12-06 12:00] VITALS: BP 135/79
[2018-12-06] MEDS: GLUCERNA 1.2 1,000 ML BOTTLE GT PRN (16:16)
[2018-12-06 18:30] VITALS: BP 150/90
[2018-12-06 20:26] VITALS: BP 141/76
--- NOTE | 2018-12-06 21:00 | NUR ---
Called patient daughter Kelly for room change for her mother due to isolation protocol.She said she will be here by 6am to move her mother belongings in Room 275-2.She said wait for her before transferring.
[2018-12-06] MEDS: ENOXAPARIN SODIUM 40 MG/0.4 ML DISP.SYRIN SQ SCH (21:46)
[2018-12-06] MEDS: ATORVASTATIN 10 MG TABLET GT SCH (21:46)
[2018-12-06] MEDS: CLOTRIMAZOLE 1% 15 GM TUBE TP SCH (21:57)
[2018-12-06] MEDS: ZINC OXIDE 30 GM TUBE TP SCH (21:58)
[2018-12-06] MEDS: INSULIN GLARGINE, 100 UNIT/ML CARTRIDGE SQ SCH (22:07)
[2018-12-07] MEDS: DILTIAZEM HCL 30 MG TABLET GT SCH ×4 (00:06→17:20)
[2018-12-07 00:07] VITALS: BP 137/80
[2018-12-07] MEDS: BLOOD SUGAR DIAGNOSTIC 1 EACH STRIP IN SCH ×4 (00:13→17:20)
[2018-12-07] MEDS: INSULIN ASPART/LISPRO 100 UNIT/ML CARTRIDGE SQ PRN ×4 (00:15→17:22)
[2018-12-07] MEDS: ALBUTEROL FS 2.5 MG/3 ML VIAL.NEB NEB SCH ×4 (00:38→19:48)
[2018-12-07] MEDS: IPRATROPIUM NEB FS 0.5 MG/2.5 ML AMPUL.NEB NEB SCH ×4 (00:38→19:48)
[2018-12-07] MEDS: GLUCERNA 1.2 1,000 ML BOTTLE GT PRN ×2 (05:09→19:03)
[2018-12-07] MEDS: PANTOPRAZOLE 40 MG/PACK PACK GT SCH (05:33)
[2018-12-07 06:14] VITALS: BP 112/68
[2018-12-07 07:51] VITALS: BP 128/72
[2018-12-07] MEDS: HYDROGEN PEROXIDE 480 ML BOTTLE TP SCH ×2 (09:00→20:09)
[2018-12-07] MEDS: ACETAMINOPHEN 650 MG/20 ML UDC- SA PATIENTS-PAIN ONLY GT SCH ×2 (09:35→20:15)
[2018-12-07] MEDS: ZINC SULFATE 220 MG CAPSULE GT SCH (09:35)
[2018-12-07] MEDS: ASCORBIC ACID 500 MG TABLET GT SCH (09:35)
[2018-12-07] MEDS: FERROUS SULFATE - FOR SA ONLY 330 MG/7.5 ML UDC GT SCH (09:39)
[2018-12-07] MEDS: ACIDOPHILUS/BULGARICUS 1 EACH TAB.CHEW GT SCH ×2 (09:39→17:20)
[2018-12-07] MEDS: MULTIVIT W/MINERALS 1 TAB TABLET GT SCH (09:39)
[2018-12-07] MEDS: DOCUSATE SODIUM LIQ 100 MG/10 ML UDC GT SCH ×2 (09:39→17:20)
[2018-12-07] MEDS: LEVETIRACETAM SOL (5 ML) 100 MG/ML UDC GT SCH ×2 (09:39→20:14)
[2018-12-07] MEDS: Z GUARD REMEDY 2 OZ OINT TP SCH ×2 (10:30→21:05)
[2018-12-07] MEDS: ZINC OXIDE 30 GM TUBE TP SCH ×2 (10:30→21:06)
[2018-12-07] MEDS: NYSTATIN TOP POWDER 15 GM BOTTLE TP SCH ×2 (10:30)
[2018-12-07] MEDS: CLOTRIMAZOLE 1% 15 GM TUBE TP SCH ×2 (10:30→21:05)
[2018-12-07] MEDS: THERAHONEY GEL 1.5 OZ TUBE TP SCH ×2 (10:30→21:05)
[2018-12-07 12:00] VITALS: BP 138/88
[2018-12-07 18:16] VITALS: BP 111/58
[2018-12-07] MEDS: ENOXAPARIN SODIUM 40 MG/0.4 ML DISP.SYRIN SQ SCH (20:15)
[2018-12-07 20:27] VITALS: BP 102/53
[2018-12-07] MEDS: ATORVASTATIN 10 MG TABLET GT SCH (21:06)
[2018-12-07] MEDS: INSULIN GLARGINE, 100 UNIT/ML CARTRIDGE SQ SCH (22:53)
--- NOTE | 2018-12-08 00:10 | NUR ---
Seen and examined by TIME ANALYSIS CLERK Kennedi Bender.Notified her that patient having streak of blood in the urine and sediments,afebrile at this time.She ordered to monitor if continuos to have hematuria ,low O2 ,low grade temp get BMP,CBC and UA.Will continue to monitor patient.
[2018-12-08] MEDS: DILTIAZEM HCL 30 MG TABLET GT SCH ×4 (00:35→17:41)
[2018-12-08] MEDS: BLOOD SUGAR DIAGNOSTIC 1 EACH STRIP IN SCH ×4 (00:35→17:41)
[2018-12-08] MEDS: INSULIN ASPART/LISPRO 100 UNIT/ML CARTRIDGE SQ PRN ×4 (00:37→17:43)
[2018-12-08 00:39] VITALS: BP 139/72
[2018-12-08] MEDS: IPRATROPIUM NEB FS 0.5 MG/2.5 ML AMPUL.NEB NEB SCH ×4 (00:47→20:02)
[2018-12-08] MEDS: ALBUTEROL FS 2.5 MG/3 ML VIAL.NEB NEB SCH ×4 (00:47→20:02)
[2018-12-08] MEDS: PANTOPRAZOLE 40 MG/PACK PACK GT SCH (05:42)
[2018-12-08 06:00] VITALS: BP 123/77
[2018-12-08 08:00] VITALS: BP 139/88
[2018-12-08] MEDS: HYDROGEN PEROXIDE 480 ML BOTTLE TP SCH ×2 (09:00→21:00)
[2018-12-08] MEDS: LEVETIRACETAM SOL (5 ML) 100 MG/ML UDC GT SCH ×2 (09:23→21:00)
[2018-12-08] MEDS: ACIDOPHILUS/BULGARICUS 1 EACH TAB.CHEW GT SCH ×2 (09:23→17:41)
[2018-12-08] MEDS: MULTIVIT W/MINERALS 1 TAB TABLET GT SCH (09:23)
[2018-12-08] MEDS: FERROUS SULFATE - FOR SA ONLY 330 MG/7.5 ML UDC GT SCH (09:23)
[2018-12-08] MEDS: DOCUSATE SODIUM LIQ 100 MG/10 ML UDC GT SCH ×2 (09:23→17:41)
[2018-12-08] MEDS: ACETAMINOPHEN 650 MG/20 ML UDC- SA PATIENTS-PAIN ONLY GT SCH ×4 (09:24→23:00)
[2018-12-08] MEDS: ZINC SULFATE 220 MG CAPSULE GT SCH (09:24)
[2018-12-08] MEDS: NYSTATIN TOP POWDER 15 GM BOTTLE TP SCH ×2 (09:24→21:00)
[2018-12-08] MEDS: ASCORBIC ACID 500 MG TABLET GT SCH (09:24)
[2018-12-08] MEDS: ZINC OXIDE 30 GM TUBE TP SCH ×2 (10:15→21:00)
[2018-12-08] MEDS: CLOTRIMAZOLE 1% 15 GM TUBE TP SCH ×2 (10:15→21:00)
[2018-12-08] MEDS: THERAHONEY GEL 1.5 OZ TUBE TP SCH ×2 (10:15→21:00)
[2018-12-08] MEDS: Z GUARD REMEDY 2 OZ OINT TP SCH ×2 (10:15→21:00)
[2018-12-08 12:00] VITALS: BP 163/85
[2018-12-08] MEDS: GLUCERNA 1.2 1,000 ML BOTTLE GT PRN (16:00)
[2018-12-08 18:30] VITALS: BP 139/82
[2018-12-08 20:38] VITALS: BP 152/86
[2018-12-08] MEDS: ENOXAPARIN SODIUM 40 MG/0.4 ML DISP.SYRIN SQ SCH (21:00)
[2018-12-08] MEDS: ATORVASTATIN 10 MG TABLET GT SCH (22:14)
[2018-12-08] MEDS: INSULIN GLARGINE, 100 UNIT/ML CARTRIDGE SQ SCH (22:46)
[2018-12-09] VITALS: BP 126/74
[2018-12-09] MEDS: DILTIAZEM HCL 30 MG TABLET GT SCH ×4 (00:26→17:05)
[2018-12-09] MEDS: INSULIN ASPART/LISPRO 100 UNIT/ML CARTRIDGE SQ PRN ×4 (00:30→17:06)
[2018-12-09] MEDS: BLOOD SUGAR DIAGNOSTIC 1 EACH STRIP IN SCH ×4 (00:34→17:05)
[2018-12-09] MEDS: ACETAMINOPHEN 650 MG/20 ML UDC- SA PATIENTS-PAIN ONLY GT SCH ×3 (00:35→20:50)
[2018-12-09] MEDS: ALBUTEROL FS 2.5 MG/3 ML VIAL.NEB NEB SCH ×4 (01:30→19:33)
[2018-12-09] MEDS: IPRATROPIUM NEB FS 0.5 MG/2.5 ML AMPUL.NEB NEB SCH ×4 (01:30→19:33)
[2018-12-09 06:00] VITALS: BP 126/70
[2018-12-09] MEDS: PANTOPRAZOLE 40 MG/PACK PACK GT SCH (06:09)
[2018-12-09] MEDS: GLUCERNA 1.2 1,000 ML BOTTLE GT PRN (06:52)
[2018-12-09 07:39] VITALS: BP 127/82
[2018-12-09] MEDS: HYDROGEN PEROXIDE 480 ML BOTTLE TP SCH ×2 (09:00→21:35)
[2018-12-09] MEDS: ACIDOPHILUS/BULGARICUS 1 EACH TAB.CHEW GT SCH ×2 (09:09→16:52)
[2018-12-09] MEDS: MULTIVIT W/MINERALS 1 TAB TABLET GT SCH (09:09)
[2018-12-09] MEDS: LEVETIRACETAM SOL (5 ML) 100 MG/ML UDC GT SCH ×2 (09:09→20:50)
[2018-12-09] MEDS: ZINC SULFATE 220 MG CAPSULE GT SCH (09:09)
[2018-12-09] MEDS: DOCUSATE SODIUM LIQ 100 MG/10 ML UDC GT SCH ×2 (09:09→16:52)
[2018-12-09] MEDS: FERROUS SULFATE - FOR SA ONLY 330 MG/7.5 ML UDC GT SCH (09:09)
[2018-12-09] MEDS: ASCORBIC ACID 500 MG TABLET GT SCH (09:09)
[2018-12-09] MEDS: NYSTATIN TOP POWDER 15 GM BOTTLE TP SCH ×2 (10:00→20:51)
[2018-12-09] MEDS: CLOTRIMAZOLE 1% 15 GM TUBE TP SCH ×2 (10:00→20:51)
[2018-12-09] MEDS: ZINC OXIDE 30 GM TUBE TP SCH ×2 (10:00→20:52)
[2018-12-09] MEDS: THERAHONEY GEL 1.5 OZ TUBE TP SCH ×2 (10:00→20:52)
[2018-12-09] MEDS: Z GUARD REMEDY 2 OZ OINT TP SCH ×2 (10:00→20:51)
[2018-12-09 12:00] VITALS: BP 148/72
[2018-12-09 18:32] VITALS: BP 144/84
[2018-12-09 19:42] VITALS: BP 141/85
[2018-12-09] MEDS: ENOXAPARIN SODIUM 40 MG/0.4 ML DISP.SYRIN SQ SCH (20:51)
[2018-12-09] MEDS: ATORVASTATIN 10 MG TABLET GT SCH (21:54)
[2018-12-09] MEDS: INSULIN GLARGINE, 100 UNIT/ML CARTRIDGE SQ SCH (21:55)
[2018-12-10] MEDS: BLOOD SUGAR DIAGNOSTIC 1 EACH STRIP IN SCH ×4 (00:25→18:24)
[2018-12-10] MEDS: DILTIAZEM HCL 30 MG TABLET GT SCH ×4 (00:25→17:17)
[2018-12-10] MEDS: INSULIN ASPART/LISPRO 100 UNIT/ML CARTRIDGE SQ PRN ×4 (00:26→18:25)
[2018-12-10 00:32] VITALS: BP 106/71
[2018-12-10] MEDS: IPRATROPIUM NEB FS 0.5 MG/2.5 ML AMPUL.NEB NEB SCH ×4 (01:09→19:53)
[2018-12-10] MEDS: ALBUTEROL FS 2.5 MG/3 ML VIAL.NEB NEB SCH ×4 (01:09→19:53)
[2018-12-10] MEDS: PANTOPRAZOLE 40 MG/PACK PACK GT SCH (05:44)
[2018-12-10] MEDS: GLUCERNA 1.2 1,000 ML BOTTLE GT PRN (05:46)
[2018-12-10 06:36] VITALS: BP 116/77
[2018-12-10] MEDS: HYDROGEN PEROXIDE 480 ML BOTTLE TP SCH ×2 (07:27→21:00)
[2018-12-10 08:08] VITALS: BP 123/91
[2018-12-10] MEDS: ACIDOPHILUS/BULGARICUS 1 EACH TAB.CHEW GT SCH ×2 (08:52→17:16)
[2018-12-10] MEDS: DOCUSATE SODIUM LIQ 100 MG/10 ML UDC GT SCH ×2 (08:52→17:16)
[2018-12-10] MEDS: LEVETIRACETAM SOL (5 ML) 100 MG/ML UDC GT SCH ×2 (08:52→20:32)
[2018-12-10] MEDS: ASCORBIC ACID 500 MG TABLET GT SCH (08:52)
[2018-12-10] MEDS: MULTIVIT W/MINERALS 1 TAB TABLET GT SCH (08:52)
[2018-12-10] MEDS: FERROUS SULFATE - FOR SA ONLY 330 MG/7.5 ML UDC GT SCH (08:52)
[2018-12-10] MEDS: ACETAMINOPHEN 650 MG/20 ML UDC- SA PATIENTS-PAIN ONLY GT SCH ×2 (08:53→20:32)
[2018-12-10] MEDS: ZINC SULFATE 220 MG CAPSULE GT SCH (08:53)
[2018-12-10] MEDS: ZINC OXIDE 30 GM TUBE TP SCH ×2 (09:35→20:34)
[2018-12-10] MEDS: NYSTATIN TOP POWDER 15 GM BOTTLE TP SCH ×2 (09:35→20:33)
[2018-12-10] MEDS: Z GUARD REMEDY 2 OZ OINT TP SCH ×2 (09:35→20:33)
[2018-12-10] MEDS: THERAHONEY GEL 1.5 OZ TUBE TP SCH ×2 (09:35→20:34)
[2018-12-10] MEDS: CLOTRIMAZOLE 1% 15 GM TUBE TP SCH ×2 (09:35→20:33)
[2018-12-10 12:00] VITALS: BP 123/74
--- NOTE | 2018-12-10 13:57 | NUR ---
RT NOTE: RECEIVED PT ON 28% COOL AEROSOL. NO RESPIRATORY DISTRESS NOTED. TRACH CHECKED SECURE AND PATENT. SXD AND LAVAGED PT Q ROUND AND NEEDED. TXS GIVEN ORDERED WITH NO ADVERSE REACTIONS NOTED. TRACH CARE DONE. EMERGENCY EQUIPMENT @ BEDSIDE. ALARMS CHECKED.
[2018-12-10 18:16] VITALS: BP 142/70
[2018-12-10] MEDS: ENOXAPARIN SODIUM 40 MG/0.4 ML DISP.SYRIN SQ SCH (20:33)
[2018-12-10 21:10] VITALS: BP 122/69
[2018-12-10] MEDS: ATORVASTATIN 10 MG TABLET GT SCH (21:27)
[2018-12-10] MEDS: INSULIN GLARGINE, 100 UNIT/ML CARTRIDGE SQ SCH (21:28)
[2018-12-11 00:17] VITALS: BP 122/70
[2018-12-11] MEDS: DILTIAZEM HCL 30 MG TABLET GT SCH ×4 (00:19→17:38)
[2018-12-11] MEDS: BLOOD SUGAR DIAGNOSTIC 1 EACH STRIP IN SCH ×4 (00:19→18:29)
[2018-12-11] MEDS: INSULIN ASPART/LISPRO 100 UNIT/ML CARTRIDGE SQ PRN ×4 (00:21→18:31)
[2018-12-11] MEDS: ALBUTEROL FS 2.5 MG/3 ML VIAL.NEB NEB SCH ×4 (01:40→19:30)
[2018-12-11] MEDS: IPRATROPIUM NEB FS 0.5 MG/2.5 ML AMPUL.NEB NEB SCH ×4 (01:40→19:30)
[2018-12-11] MEDS: GLUCERNA 1.2 1,000 ML BOTTLE GT PRN (04:18)
[2018-12-11] MEDS: PANTOPRAZOLE 40 MG/PACK PACK GT SCH (05:32)
[2018-12-11 06:37] VITALS: BP 123/72
[2018-12-11 07:54] VITALS: BP 115/68
[2018-12-11] MEDS: ACIDOPHILUS/BULGARICUS 1 EACH TAB.CHEW GT SCH ×2 (08:21→17:37)
[2018-12-11] MEDS: LEVETIRACETAM SOL (5 ML) 100 MG/ML UDC GT SCH ×2 (08:21→20:36)
[2018-12-11] MEDS: MULTIVIT W/MINERALS 1 TAB TABLET GT SCH (08:21)
[2018-12-11] MEDS: FERROUS SULFATE - FOR SA ONLY 330 MG/7.5 ML UDC GT SCH (08:21)
[2018-12-11] MEDS: DOCUSATE SODIUM LIQ 100 MG/10 ML UDC GT SCH ×2 (08:21→17:37)
[2018-12-11] MEDS: ASCORBIC ACID 500 MG TABLET GT SCH (08:22)
[2018-12-11] MEDS: ACETAMINOPHEN 650 MG/20 ML UDC- SA PATIENTS-PAIN ONLY GT SCH ×2 (08:22→20:37)
[2018-12-11] MEDS: ZINC SULFATE 220 MG CAPSULE GT SCH (08:22)
[2018-12-11] MEDS: HYDROGEN PEROXIDE 480 ML BOTTLE TP SCH ×2 (09:00→21:00)
[2018-12-11] MEDS: ZINC OXIDE 30 GM TUBE TP SCH ×2 (09:30→20:38)
[2018-12-11] MEDS: NYSTATIN TOP POWDER 15 GM BOTTLE TP SCH ×2 (09:30→20:38)
[2018-12-11] MEDS: CLOTRIMAZOLE 1% 15 GM TUBE TP SCH ×2 (09:30→20:38)
[2018-12-11] MEDS: Z GUARD REMEDY 2 OZ OINT TP SCH ×2 (09:30→20:38)
[2018-12-11] MEDS: THERAHONEY GEL 1.5 OZ TUBE TP SCH ×2 (09:30→20:38)
[2018-12-11 12:00] VITALS: BP 131/77
[2018-12-11 18:49] VITALS: BP 155/73
[2018-12-11 19:54] VITALS: BP 124/71
[2018-12-11] MEDS: ENOXAPARIN SODIUM 40 MG/0.4 ML DISP.SYRIN SQ SCH (20:38)
[2018-12-11] MEDS: ATORVASTATIN 10 MG TABLET GT SCH (21:43)
[2018-12-11] MEDS: INSULIN GLARGINE, 100 UNIT/ML CARTRIDGE SQ SCH (21:44)
[2018-12-12 00:20] VITALS: BP 128/75
[2018-12-12] MEDS: BLOOD SUGAR DIAGNOSTIC 1 EACH STRIP IN SCH ×4 (00:23→18:38)
[2018-12-12] MEDS: DILTIAZEM HCL 30 MG TABLET GT SCH ×4 (00:23→18:38)
[2018-12-12] MEDS: INSULIN ASPART/LISPRO 100 UNIT/ML CARTRIDGE SQ PRN ×4 (00:24→18:39)
[2018-12-12] MEDS: GLUCERNA 1.2 1,000 ML BOTTLE GT PRN ×2 (00:43→23:40)
[2018-12-12] MEDS: ALBUTEROL FS 2.5 MG/3 ML VIAL.NEB NEB SCH ×4 (00:48→19:51)
[2018-12-12] MEDS: IPRATROPIUM NEB FS 0.5 MG/2.5 ML AMPUL.NEB NEB SCH ×4 (00:48→19:51)
[2018-12-12] MEDS: PANTOPRAZOLE 40 MG/PACK PACK GT SCH (05:34)
[2018-12-12 06:26] VITALS: BP 131/80
[2018-12-12 07:51] VITALS: BP 127/78
--- NOTE | 2018-12-12 08:45 | NUR ---
ORACIO received call from Eyad at Dr. Teran dental office stating that Dr. Pruett needed to reschedule his original apt. from 12/12/18 to 12/14/18 at 12:15pm. ORACIO notified patients responsible constitution party/sister Kelly Wong by calling [phone] and also through email as she stated was her preference ([email or web address]) of the dental cleaning date and time change to Monday12/14/18 12:15 pm. Family was agreeable to plan. ORACIO also notified charge nurse.
[2018-12-12] MEDS: Z GUARD REMEDY 2 OZ OINT TP SCH ×2 (09:00→20:38)
[2018-12-12] MEDS: ASCORBIC ACID 500 MG TABLET GT SCH (09:00)
[2018-12-12] MEDS: ZINC SULFATE 220 MG CAPSULE GT SCH (09:00)
[2018-12-12] MEDS: FERROUS SULFATE - FOR SA ONLY 330 MG/7.5 ML UDC GT SCH (09:00)
[2018-12-12] MEDS: ACETAMINOPHEN 650 MG/20 ML UDC- SA PATIENTS-PAIN ONLY GT SCH ×2 (09:00→20:36)
[2018-12-12] MEDS: ZINC OXIDE 30 GM TUBE TP SCH ×2 (09:00→20:38)
[2018-12-12] MEDS: NYSTATIN TOP POWDER 15 GM BOTTLE TP SCH ×2 (09:00→20:37)
[2018-12-12] MEDS: LEVETIRACETAM SOL (5 ML) 100 MG/ML UDC GT SCH ×2 (09:00→20:33)
[2018-12-12] MEDS: THERAHONEY GEL 1.5 OZ TUBE TP SCH ×2 (09:00→20:38)
[2018-12-12] MEDS: HYDROGEN PEROXIDE 480 ML BOTTLE TP SCH ×2 (09:00→19:51)
[2018-12-12] MEDS: MULTIVIT W/MINERALS 1 TAB TABLET GT SCH (09:00)
[2018-12-12] MEDS: DOCUSATE SODIUM LIQ 100 MG/10 ML UDC GT SCH ×2 (09:00→17:00)
[2018-12-12] MEDS: ACIDOPHILUS/BULGARICUS 1 EACH TAB.CHEW GT SCH ×2 (09:00→17:00)
[2018-12-12] MEDS: CLOTRIMAZOLE 1% 15 GM TUBE TP SCH ×2 (09:00→20:37)
[2018-12-12 12:00] VITALS: BP 148/90
[2018-12-12 18:00] VITALS: BP 134/73
[2018-12-12] MEDS: ENOXAPARIN SODIUM 40 MG/0.4 ML DISP.SYRIN SQ SCH (20:37)
[2018-12-12 21:00] VITALS: BP 125/75
[2018-12-12] MEDS: ATORVASTATIN 10 MG TABLET GT SCH (22:12)
[2018-12-12] MEDS: INSULIN GLARGINE, 100 UNIT/ML CARTRIDGE SQ SCH (22:13)
[2018-12-13] MEDS: BLOOD SUGAR DIAGNOSTIC 1 EACH STRIP IN SCH ×4 (00:30→18:08)
[2018-12-13] MEDS: DILTIAZEM HCL 30 MG TABLET GT SCH ×4 (00:30→18:08)
[2018-12-13] MEDS: INSULIN ASPART/LISPRO 100 UNIT/ML CARTRIDGE SQ PRN ×4 (00:33→18:07)
[2018-12-13] MEDS: IPRATROPIUM NEB FS 0.5 MG/2.5 ML AMPUL.NEB NEB SCH ×4 (01:01→20:18)
[2018-12-13] MEDS: ALBUTEROL FS 2.5 MG/3 ML VIAL.NEB NEB SCH ×4 (01:01→20:18)
[2018-12-13 02:00] VITALS: BP 135/87
[2018-12-13] MEDS: PANTOPRAZOLE 40 MG/PACK PACK GT SCH (06:19)
[2018-12-13 06:27] VITALS: BP 137/86
[2018-12-13 07:32] VITALS: BP 125/74
[2018-12-13] MEDS: HYDROGEN PEROXIDE 480 ML BOTTLE TP SCH ×2 (09:00→21:00)
[2018-12-13] MEDS: DOCUSATE SODIUM LIQ 100 MG/10 ML UDC GT SCH ×2 (09:36→17:00)
[2018-12-13] MEDS: FERROUS SULFATE - FOR SA ONLY 330 MG/7.5 ML UDC GT SCH (09:36)
[2018-12-13] MEDS: LEVETIRACETAM SOL (5 ML) 100 MG/ML UDC GT SCH ×2 (09:36→21:36)
[2018-12-13] MEDS: ACIDOPHILUS/BULGARICUS 1 EACH TAB.CHEW GT SCH ×2 (09:36→17:00)
[2018-12-13] MEDS: MULTIVIT W/MINERALS 1 TAB TABLET GT SCH (09:36)
[2018-12-13] MEDS: ASCORBIC ACID 500 MG TABLET GT SCH (09:37)
[2018-12-13] MEDS: ZINC SULFATE 220 MG CAPSULE GT SCH (09:37)
[2018-12-13] MEDS: ACETAMINOPHEN 650 MG/20 ML UDC- SA PATIENTS-PAIN ONLY GT SCH ×2 (09:37→21:37)
[2018-12-13] MEDS: Z GUARD REMEDY 2 OZ OINT TP SCH ×2 (10:10→21:58)
[2018-12-13] MEDS: NYSTATIN TOP POWDER 15 GM BOTTLE TP SCH ×2 (10:10→21:58)
[2018-12-13] MEDS: CLOTRIMAZOLE 1% 15 GM TUBE TP SCH ×2 (10:10→21:57)
[2018-12-13] MEDS: THERAHONEY GEL 1.5 OZ TUBE TP SCH ×2 (10:10→21:58)
[2018-12-13] MEDS: ZINC OXIDE 30 GM TUBE TP SCH ×2 (10:10→21:58)
[2018-12-13 12:00] VITALS: BP 156/86
[2018-12-13 18:00] VITALS: BP 127/68
[2018-12-13] MEDS: GLUCERNA 1.2 1,000 ML BOTTLE GT PRN (18:08)
[2018-12-13 20:12] VITALS: BP 122/62
[2018-12-13] MEDS: ENOXAPARIN SODIUM 40 MG/0.4 ML DISP.SYRIN SQ SCH (21:37)
[2018-12-13] MEDS: ATORVASTATIN 10 MG TABLET GT SCH (21:37)
[2018-12-13] MEDS: INSULIN GLARGINE, 100 UNIT/ML CARTRIDGE SQ SCH (22:23)
[2018-12-14] MEDS: DILTIAZEM HCL 30 MG TABLET GT SCH ×4 (00:01→17:15)
[2018-12-14] MEDS: BLOOD SUGAR DIAGNOSTIC 1 EACH STRIP IN SCH ×4 (00:01→17:30)
[2018-12-14 00:02] VITALS: BP 138/77
[2018-12-14] MEDS: INSULIN ASPART/LISPRO 100 UNIT/ML CARTRIDGE SQ PRN ×4 (00:02→17:33)
[2018-12-14] MEDS: ALBUTEROL FS 2.5 MG/3 ML VIAL.NEB NEB SCH ×4 (01:58→19:35)
[2018-12-14] MEDS: IPRATROPIUM NEB FS 0.5 MG/2.5 ML AMPUL.NEB NEB SCH ×4 (01:58→19:35)
--- NOTE | 2018-12-14 04:56 | NUR ---
Pt with temp of 99.3,BP 127/82 HR 98 with sediments in urine,slightly cloudy.Placed an order for CMC,BMP,urinalysis as ordered by MILLY Bender.Cooling measures provided and Tylenol given via Gt as ordered.Will continue to monitor.
[2018-12-14] MEDS: ACETAMINOPHEN 650 MG/20 ML UDC- SA PATIENTS-PAIN ONLY GT PRN (05:14)
[2018-12-14 06:00] VITALS: BP 127/82
[2018-12-14] MEDS: HYDROGEN PEROXIDE 480 ML BOTTLE TP SCH ×2 (07:45→19:36)
[2018-12-14 08:03] VITALS: BP 132/68
[2018-12-14 08:15] LABS: BASOPHILS % (AUTO) 0.5 % (0.0-2.0); HEMATOCRIT 30 % (33-45); HEMOGLOBIN 9.3 g/dL (11.5-14.8); LYMPHOCYTES # (AUTO) 2.6 /CMM (0.8-4.8); LYMPHOCYTES % (AUTO) 28.1 % (20.0-44.0); MEAN CORPUSCULAR HGB CONC 32 g/dl (31.0-36.0); MEAN CORPUSCULAR VOLUME 90 fL (82-100); MONOCYTES # (AUTO) 0.9 /CMM (0.1-1.30); MONOCYTES % (AUTO) 9.5 % (2.0-12.0); NEUTROPHILS # (AUTO) 5.5 /CMM (1.8-8.9); NEUTROPHILS % (AUTO) 59.9 % (43.0-81.0); PLATELET COUNT (AUTO) 335 /CMM (150-450); RED BLOOD CELL COUNT(AUTO) 3.29 MIL/uL (4.0-5.2); WHITE BLOOD COUNT (AUTO) 9.3 K/uL (4.3-11.0)
[2018-12-14 08:21] LABS: CALCIUM, SERUM 8.5 mg/dL (8.5-10.1); CREATININE 1.4 mg/dL (0.6-1.3); POTASSIUM 5.3 mmol/L (3.5-5.1)
[2018-12-14] MEDS: MULTIVIT W/MINERALS 1 TAB TABLET GT SCH (08:47)
[2018-12-14] MEDS: LEVETIRACETAM SOL (5 ML) 100 MG/ML UDC GT SCH ×2 (08:47→20:27)
[2018-12-14] MEDS: FERROUS SULFATE - FOR SA ONLY 330 MG/7.5 ML UDC GT SCH (08:47)
[2018-12-14] MEDS: ACIDOPHILUS/BULGARICUS 1 EACH TAB.CHEW GT SCH ×2 (08:47→17:14)
[2018-12-14] MEDS: DOCUSATE SODIUM LIQ 100 MG/10 ML UDC GT SCH ×2 (08:47→17:14)
[2018-12-14] MEDS: ZINC SULFATE 220 MG CAPSULE GT SCH (08:48)
[2018-12-14] MEDS: ACETAMINOPHEN 650 MG/20 ML UDC- SA PATIENTS-PAIN ONLY GT SCH ×2 (08:48→20:27)
[2018-12-14] MEDS: ASCORBIC ACID 500 MG TABLET GT SCH (08:48)
[2018-12-14] MEDS: NYSTATIN TOP POWDER 15 GM BOTTLE TP SCH ×2 (09:00→21:32)
[2018-12-14] MEDS: ZINC OXIDE 30 GM TUBE TP SCH ×2 (09:00→21:33)
[2018-12-14] MEDS: ESOMEPRAZOLE MAGNESIUM 40 MG SUSPDR.PKT GT SCH (09:00)
[2018-12-14] MEDS: THERAHONEY GEL 1.5 OZ TUBE TP SCH ×2 (09:00→21:32)
[2018-12-14] MEDS: Z GUARD REMEDY 2 OZ OINT TP SCH ×2 (09:00→21:32)
[2018-12-14] MEDS: CLOTRIMAZOLE 1% 15 GM TUBE TP SCH ×2 (09:00→21:32)
--- NOTE | 2018-12-14 09:00 | NUR ---
Resident will be weight on Monday12/17/18. Addendum: 12/16/18 at 1857 by JOÃO BROWNE RN Amended: Links added.
[2018-12-14 10:00] LABS: APPEARANCE,URINE CLOUDY (CLEAR); COLOR,URINE YELLOW (YELLOW); PH,URINE >8.5 (5.0-8.0)
[2018-12-14 10:01] LABS: BILIRUBIN,URINE NEGATIVE (NEGATIVE); BLOOD, URINE 3+ Ery/uL (NEGATIVE); KETONES,URINE NEGATIVE (NEGATIVE); PROTEIN,URINE 2+ mg/dl (NEGATIVE); UGLUCOSE NEGATIVE (NEGATIVE)
[2018-12-14 10:02] LABS: LEUKOCYTE ESTERASE ,URINE 3+ (NEGATIVE); NITRITE, URINE NEGATIVE (NEGATIVE)
[2018-12-14 10:12] LABS: BACTERIA,URINE Many /HPF (None Seen); SQUAMOUS EPITHELIAL CELL,UR Few /HPF (None Seen); TRIPLE PHOSPHATE CRYSTAL,UR Few /HPF (None Seen)
[2018-12-14 12:00] VITALS: BP 144/89
[2018-12-14] MEDS: GLUCERNA 1.2 1,000 ML BOTTLE GT PRN (12:03)
--- NOTE | 2018-12-14 16:25 | NUR ---
The patient was seen today by Dr. Pruett [phone] for her annual exam and dental cleaning. No new order per Dr. Pruett. Per Dr. Teran Progress Note state: Calculous, generalized gingivitis, yellow film over enamel, missing teeth (1,2,3,4,5,6,7,11,12,13,17,18,19,22,23,24,25,26,31,32), pt. apprehensive, no decay noted. Cleaning and scaling. ORACIO communicated to family, Kelly Wong [phone]. Kelly expressed understanding.
--- NOTE | 2018-12-14 17:39 | NUR ---
Notified Kennedi Bender NP of CBC, BMP and UA result, with new order to start IVF 1/2 NS at 70 ml/hr. Orders noted and carried out. Left a message to resident's daughter Kelly informing her of new order.
[2018-12-14 18:00] VITALS: BP 118/66
[2018-12-14] MEDS: IV NS 0.45% 1,000 ML IV PRN (19:00)
[2018-12-14 20:29] VITALS: BP 134/71
[2018-12-14] MEDS: ENOXAPARIN SODIUM 40 MG/0.4 ML DISP.SYRIN SQ SCH (21:32)
[2018-12-14] MEDS: ATORVASTATIN 10 MG TABLET GT SCH (21:33)
--- NOTE | 2018-12-14 22:00 | NUR ---
pt temp 101. no s/s of distress noted. cooling measures rendered. given tylenol 650 mg via gt. effective temp 99.1. all comfort measures rendered. will continue to monitor closely.
[2018-12-14] MEDS: INSULIN GLARGINE, 100 UNIT/ML CARTRIDGE SQ SCH (22:12)
--- NOTE | 2018-12-14 22:30 | NUR ---
-at 1900 IV cannula inserted on the LFA G#22 1 attempt with good back flow, IVF of 1/2 NS at 70 ml/hr started. -at 1999 feverish T-101, cooling measure and PRN medication given, rechecked after an hour 99.1. Will continue to monitor.IV hydration continue.
[2018-12-15 00:15] VITALS: BP 132/87
[2018-12-15] MEDS: DILTIAZEM HCL 30 MG TABLET GT SCH ×4 (00:43→17:36)
[2018-12-15] MEDS: BLOOD SUGAR DIAGNOSTIC 1 EACH STRIP IN SCH ×4 (00:44→17:36)
[2018-12-15] MEDS: INSULIN ASPART/LISPRO 100 UNIT/ML CARTRIDGE SQ PRN ×4 (00:45→17:39)
[2018-12-15] MEDS: IPRATROPIUM NEB FS 0.5 MG/2.5 ML AMPUL.NEB NEB SCH ×4 (01:07→19:29)
[2018-12-15] MEDS: ALBUTEROL FS 2.5 MG/3 ML VIAL.NEB NEB SCH ×4 (01:07→19:29)
[2018-12-15] MEDS: GLUCERNA 1.2 1,000 ML BOTTLE GT PRN (03:41)
--- NOTE | 2018-12-15 06:28 | NUR ---
pt calm and comfortable. temp 98.5. all comfort measures rendered. will endorse to oncoming shift.
[2018-12-15 06:30] VITALS: BP 135/78
[2018-12-15 08:03] VITALS: BP 140/81
[2018-12-15] MEDS: FERROUS SULFATE - FOR SA ONLY 330 MG/7.5 ML UDC GT SCH (08:50)
[2018-12-15] MEDS: MULTIVIT W/MINERALS 1 TAB TABLET GT SCH (08:50)
[2018-12-15] MEDS: LEVETIRACETAM SOL (5 ML) 100 MG/ML UDC GT SCH ×2 (08:50→21:00)
[2018-12-15] MEDS: DOCUSATE SODIUM LIQ 100 MG/10 ML UDC GT SCH ×2 (08:50→17:36)
[2018-12-15] MEDS: ACIDOPHILUS/BULGARICUS 1 EACH TAB.CHEW GT SCH ×2 (08:50→17:36)
[2018-12-15] MEDS: Z GUARD REMEDY 2 OZ OINT TP SCH ×2 (08:51→21:00)
[2018-12-15] MEDS: ACETAMINOPHEN 650 MG/20 ML UDC- SA PATIENTS-PAIN ONLY GT SCH ×2 (08:51→21:00)
[2018-12-15] MEDS: ZINC OXIDE 30 GM TUBE TP SCH ×2 (08:51→21:00)
[2018-12-15] MEDS: ZINC SULFATE 220 MG CAPSULE GT SCH (08:51)
[2018-12-15] MEDS: NYSTATIN TOP POWDER 15 GM BOTTLE TP SCH ×2 (08:51→21:00)
[2018-12-15] MEDS: THERAHONEY GEL 1.5 OZ TUBE TP SCH ×2 (08:51→21:00)
[2018-12-15] MEDS: CLOTRIMAZOLE 1% 15 GM TUBE TP SCH ×2 (08:51→21:00)
[2018-12-15] MEDS: ASCORBIC ACID 500 MG TABLET GT SCH (08:51)
[2018-12-15] MEDS: HYDROGEN PEROXIDE 480 ML BOTTLE TP SCH ×2 (09:00→21:00)
[2018-12-15] MEDS: ESOMEPRAZOLE MAGNESIUM 40 MG SUSPDR.PKT GT SCH (09:00)
[2018-12-15] MEDS: IV NS 0.45% 1,000 ML IV PRN (09:34)
[2018-12-15 12:00] VITALS: BP 129/76
--- NOTE | 2018-12-15 16:00 | NUR ---
Obtain an order from Dr. Cielo Raymundo for midline insertion, attempted to insert peripheral line but unsuccessful. Nursing pigment making supervisor informed.
[2018-12-15 18:00] VITALS: BP 140/73
--- NOTE | 2018-12-15 18:18 | NUR ---
Spoke with resident's daughter Kelly and she acknowledged that she received the message regarding her mother on IVF. Also informed Kelly that midline will be inserted because the peripheral line in the L FA is infiltrated and we are not able to insert another line. Appreciated the call. She requested to return her mother back to her previous room 266-1 once her roommates's isolation is cleared. Endorsed.
[2018-12-15 20:07] VITALS: BP 138/72
[2018-12-15] MEDS: ENOXAPARIN SODIUM 40 MG/0.4 ML DISP.SYRIN SQ SCH (21:00)
[2018-12-15] MEDS: INSULIN GLARGINE, 100 UNIT/ML CARTRIDGE SQ SCH (22:00)
[2018-12-15] MEDS: ATORVASTATIN 10 MG TABLET GT SCH (22:00)
[2018-12-16] VITALS: BP 129/67
[2018-12-16] MEDS: BLOOD SUGAR DIAGNOSTIC 1 EACH STRIP IN SCH ×5 (00:57→23:52)
[2018-12-16] MEDS: DILTIAZEM HCL 30 MG TABLET GT SCH ×5 (00:57→23:52)
[2018-12-16] MEDS: INSULIN ASPART/LISPRO 100 UNIT/ML CARTRIDGE SQ PRN ×4 (00:58→23:53)
[2018-12-16] MEDS: ALBUTEROL FS 2.5 MG/3 ML VIAL.NEB NEB SCH ×4 (01:47→20:24)
[2018-12-16] MEDS: IPRATROPIUM NEB FS 0.5 MG/2.5 ML AMPUL.NEB NEB SCH ×4 (01:47→20:24)
[2018-12-16 06:00] VITALS: BP 138/77
[2018-12-16 07:53] VITALS: BP 144/92
[2018-12-16] MEDS: IV NS 0.45% 1,000 ML IV PRN (08:17)
[2018-12-16] MEDS: HYDROGEN PEROXIDE 480 ML BOTTLE TP SCH ×2 (09:00→21:32)
[2018-12-16] MEDS: ESOMEPRAZOLE MAGNESIUM 40 MG SUSPDR.PKT GT SCH (09:00)
[2018-12-16] MEDS: FERROUS SULFATE - FOR SA ONLY 330 MG/7.5 ML UDC GT SCH (09:06)
[2018-12-16] MEDS: DOCUSATE SODIUM LIQ 100 MG/10 ML UDC GT SCH ×2 (09:06→16:27)
[2018-12-16] MEDS: LEVETIRACETAM SOL (5 ML) 100 MG/ML UDC GT SCH ×2 (09:06→21:32)
[2018-12-16] MEDS: ACIDOPHILUS/BULGARICUS 1 EACH TAB.CHEW GT SCH ×2 (09:06→16:28)
[2018-12-16] MEDS: ZINC SULFATE 220 MG CAPSULE GT SCH (09:07)
[2018-12-16] MEDS: CLOTRIMAZOLE 1% 15 GM TUBE TP SCH ×2 (09:07→21:33)
[2018-12-16] MEDS: NYSTATIN TOP POWDER 15 GM BOTTLE TP SCH ×2 (09:07→21:33)
[2018-12-16] MEDS: ACETAMINOPHEN 650 MG/20 ML UDC- SA PATIENTS-PAIN ONLY GT SCH ×2 (09:07→21:32)
[2018-12-16] MEDS: MULTIVIT W/MINERALS 1 TAB TABLET GT SCH (09:07)
[2018-12-16] MEDS: ASCORBIC ACID 500 MG TABLET GT SCH (09:07)
[2018-12-16] MEDS: Z GUARD REMEDY 2 OZ OINT TP SCH ×2 (09:08→21:33)
[2018-12-16] MEDS: ZINC OXIDE 30 GM TUBE TP SCH ×2 (09:08→21:33)
[2018-12-16] MEDS: THERAHONEY GEL 1.5 OZ TUBE TP SCH ×2 (09:08→21:33)
[2018-12-16 12:00] VITALS: BP 140/82
--- NOTE | 2018-12-16 15:32 | NUR ---
Seen by MILLY Bender. Notified her that Nexium is not covered by insurance. Spoke with Cassie of [facility] who said that Omeprazole is covered. MILLY Bender ordered to DC Nexium and give Omeprazole 20 mg GT daily.
[2018-12-16 18:00] VITALS: BP 150/89
[2018-12-16 19:51] VITALS: BP 125/51
[2018-12-16] MEDS: ENOXAPARIN SODIUM 40 MG/0.4 ML DISP.SYRIN SQ SCH (21:32)
[2018-12-16] MEDS: INSULIN GLARGINE, 100 UNIT/ML CARTRIDGE SQ SCH (21:33)
[2018-12-16] MEDS: ATORVASTATIN 10 MG TABLET GT SCH (21:33)
[2018-12-17] MEDS: IPRATROPIUM NEB FS 0.5 MG/2.5 ML AMPUL.NEB NEB SCH ×4 (00:13→19:32)
[2018-12-17] MEDS: ALBUTEROL FS 2.5 MG/3 ML VIAL.NEB NEB SCH ×4 (00:13→19:32)
[2018-12-17 03:53] VITALS: BP 133/79
[2018-12-17 06:21] VITALS: BP 129/74
[2018-12-17] MEDS: BLOOD SUGAR DIAGNOSTIC 1 EACH STRIP IN SCH ×4 (06:23→23:19)
[2018-12-17] MEDS: DILTIAZEM HCL 30 MG TABLET GT SCH ×4 (06:23→23:19)
[2018-12-17] MEDS: INSULIN ASPART/LISPRO 100 UNIT/ML CARTRIDGE SQ PRN ×4 (06:25→23:19)
[2018-12-17 07:33] VITALS: BP 145/79
[2018-12-17] MEDS: HYDROGEN PEROXIDE 480 ML BOTTLE TP SCH ×2 (08:54→21:00)
[2018-12-17] MEDS: ZINC SULFATE 220 MG CAPSULE GT SCH (09:39)
[2018-12-17] MEDS: LEVETIRACETAM SOL (5 ML) 100 MG/ML UDC GT SCH ×2 (09:39→21:09)
[2018-12-17] MEDS: FERROUS SULFATE - FOR SA ONLY 330 MG/7.5 ML UDC GT SCH (09:39)
[2018-12-17] MEDS: ASCORBIC ACID 500 MG TABLET GT SCH (09:39)
[2018-12-17] MEDS: DOCUSATE SODIUM LIQ 100 MG/10 ML UDC GT SCH ×2 (09:39→17:50)
[2018-12-17] MEDS: MULTIVIT W/MINERALS 1 TAB TABLET GT SCH (09:39)
[2018-12-17] MEDS: ACIDOPHILUS/BULGARICUS 1 EACH TAB.CHEW GT SCH ×2 (09:39→17:50)
[2018-12-17] MEDS: OMEPRAZOLE 20 MG CAPSULE.DR GT SCH (09:39)
[2018-12-17] MEDS: GLUCERNA 1.2 1,000 ML BOTTLE GT PRN (09:40)
[2018-12-17] MEDS: ACETAMINOPHEN 650 MG/20 ML UDC- SA PATIENTS-PAIN ONLY GT SCH ×2 (09:40→21:11)
[2018-12-17] MEDS: ONDANSETRON 4 MG TAB.RAPDIS GT PRN (10:07)
[2018-12-17] MEDS: THERAHONEY GEL 1.5 OZ TUBE TP SCH ×2 (10:40→21:45)
[2018-12-17] MEDS: NYSTATIN TOP POWDER 15 GM BOTTLE TP SCH ×2 (10:40→21:45)
[2018-12-17] MEDS: ZINC OXIDE 30 GM TUBE TP SCH ×2 (10:40→21:46)
[2018-12-17] MEDS: Z GUARD REMEDY 2 OZ OINT TP SCH ×2 (10:40→21:45)
[2018-12-17] MEDS: CLOTRIMAZOLE 1% 15 GM TUBE TP SCH ×2 (10:40→21:45)
[2018-12-17 12:00] VITALS: BP 133/60
--- NOTE | 2018-12-17 12:00 | NUR ---
Notified Dr Martin that pt is still on IV hydration 1/2 NS at 70 mL/hr. He saw pt today. Received order to DC IV hydration and do labs.
[2018-12-17 15:42] LABS: BASOPHILS # (AUTO) 0.1 /CMM (0.0-0.2); BASOPHILS % (AUTO) 0.9 % (0.0-2.0); EOSINOPHILS % (AUTO) 4.1 % (0.0-6.0); HEMATOCRIT 30 % (33-45); HEMOGLOBIN 9.5 g/dL (11.5-14.8); LYMPHOCYTES # (AUTO) 2.4 /CMM (0.8-4.8); LYMPHOCYTES % (AUTO) 35.7 % (20.0-44.0); MEAN CORPUSCULAR HGB CONC 31 g/dl (31.0-36.0); MEAN CORPUSCULAR VOLUME 89 fL (82-100); MONOCYTES # (AUTO) 0.5 /CMM (0.1-1.30); NEUTROPHILS # (AUTO) 3.5 /CMM (1.8-8.9); NEUTROPHILS % (AUTO) 52.3 % (43.0-81.0); PLATELET COUNT (AUTO) 455 /CMM (150-450); RED BLOOD CELL COUNT(AUTO) 3.41 MIL/uL (4.0-5.2); WHITE BLOOD COUNT (AUTO) 6.7 K/uL (4.3-11.0)
[2018-12-17 15:53] LABS: ALBUMIN 1.8 g/dL (3.4-5.0); BILIRUBIN,TOTAL 0.1 mg/dL (0.2-1.0); CALCIUM, SERUM 8.6 mg/dL (8.5-10.1); CREATININE 0.9 mg/dL (0.6-1.3); MAGNESIUM 2.3 mg/dL (1.8-2.4); PHOSPHORUS 3.7 mg/dL (2.5-4.9); POTASSIUM 5.1 mmol/L (3.5-5.1); TOTAL PROTEIN, SERUM 7.7 g/dL (6.4-8.2)
--- NOTE | 2018-12-17 16:30 | NUR ---
Received order to give 1/2 NS at 70 mL/hr IV until further order.
[2018-12-17] MEDS: IV 1/2NS 1000 ML 1,000 ML IV PRN (17:56)
[2018-12-17 18:00] VITALS: BP 153/78
[2018-12-17 19:47] VITALS: BP 122/74
[2018-12-17] MEDS: ENOXAPARIN SODIUM 40 MG/0.4 ML DISP.SYRIN SQ SCH (21:12)
[2018-12-17] MEDS: ATORVASTATIN 10 MG TABLET GT SCH (21:12)
[2018-12-17] MEDS: INSULIN GLARGINE, 100 UNIT/ML CARTRIDGE SQ SCH (21:47)
[2018-12-18] VITALS (7 sets, daily range): BP systolic 118–149; BP diastolic 69–90
[2018-12-18] MEDS: IPRATROPIUM NEB FS 0.5 MG/2.5 ML AMPUL.NEB NEB SCH ×4 (01:47→20:21)
[2018-12-18] MEDS: ALBUTEROL FS 2.5 MG/3 ML VIAL.NEB NEB SCH ×4 (01:47→20:21)
[2018-12-18] MEDS: DILTIAZEM HCL 30 MG TABLET GT SCH ×3 (05:21→17:07)
[2018-12-18] MEDS: BLOOD SUGAR DIAGNOSTIC 1 EACH STRIP IN SCH ×3 (06:11→17:43)
[2018-12-18] MEDS: INSULIN ASPART/LISPRO 100 UNIT/ML CARTRIDGE SQ PRN ×2 (06:11→12:39)
[2018-12-18] MEDS: IV 1/2NS 1000 ML 1,000 ML IV PRN (08:44)
[2018-12-18] MEDS: HYDROGEN PEROXIDE 480 ML BOTTLE TP SCH ×2 (09:16→20:48)
[2018-12-18] MEDS: CLOTRIMAZOLE 1% 15 GM TUBE TP SCH ×2 (09:16→20:48)
[2018-12-18] MEDS: ZINC OXIDE 30 GM TUBE TP SCH ×2 (09:16→20:48)
[2018-12-18] MEDS: Z GUARD REMEDY 2 OZ OINT TP SCH ×2 (09:16→20:48)
[2018-12-18] MEDS: NYSTATIN TOP POWDER 15 GM BOTTLE TP SCH ×2 (09:16→20:48)
[2018-12-18] MEDS: THERAHONEY GEL 1.5 OZ TUBE TP SCH ×2 (09:16→20:48)
[2018-12-18] MEDS: ACIDOPHILUS/BULGARICUS 1 EACH TAB.CHEW GT SCH ×2 (09:45→17:07)
[2018-12-18] MEDS: DOCUSATE SODIUM LIQ 100 MG/10 ML UDC GT SCH ×2 (09:45→17:08)
[2018-12-18] MEDS: LEVETIRACETAM SOL (5 ML) 100 MG/ML UDC GT SCH ×2 (09:45→20:44)
[2018-12-18] MEDS: FERROUS SULFATE - FOR SA ONLY 330 MG/7.5 ML UDC GT SCH (09:45)
[2018-12-18] MEDS: MULTIVIT W/MINERALS 1 TAB TABLET GT SCH (09:46)
[2018-12-18] MEDS: ACETAMINOPHEN 650 MG/20 ML UDC- SA PATIENTS-PAIN ONLY GT SCH ×2 (09:46→20:47)
[2018-12-18] MEDS: ASCORBIC ACID 500 MG TABLET GT SCH (09:47)
[2018-12-18] MEDS: ZINC SULFATE 220 MG CAPSULE GT SCH (09:47)
[2018-12-18] MEDS: OMEPRAZOLE 20 MG CAPSULE.DR GT SCH (09:48)
--- NOTE | 2018-12-18 19:19 | NUR ---
SEEN AND EXAMINED BY MILLY CALLAHAN. HUMAN PERFORMANCE PROFESSOR IS MADE AWARE OF CURRENT WEIGHT. MILLY GOLL WITH NO NEW ORDERS.
[2018-12-18] MEDS: ENOXAPARIN SODIUM 40 MG/0.4 ML DISP.SYRIN SQ SCH (20:52)
[2018-12-18] MEDS: ATORVASTATIN 10 MG TABLET GT SCH (21:29)
[2018-12-18] MEDS: INSULIN GLARGINE, 100 UNIT/ML CARTRIDGE SQ SCH (22:20)
[2018-12-19] VITALS: BP 135/72
[2018-12-19] MEDS: DILTIAZEM HCL 30 MG TABLET GT SCH ×5 (00:45→23:13)
[2018-12-19] MEDS: BLOOD SUGAR DIAGNOSTIC 1 EACH STRIP IN SCH ×5 (00:46→23:13)
[2018-12-19] MEDS: GLUCERNA 1.2 1,000 ML BOTTLE GT PRN ×2 (00:47→17:33)
[2018-12-19] MEDS: INSULIN ASPART/LISPRO 100 UNIT/ML CARTRIDGE SQ PRN ×5 (00:50→23:14)
[2018-12-19] MEDS: ALBUTEROL FS 2.5 MG/3 ML VIAL.NEB NEB SCH ×4 (01:13→19:45)
[2018-12-19] MEDS: IPRATROPIUM NEB FS 0.5 MG/2.5 ML AMPUL.NEB NEB SCH ×4 (01:13→19:45)
[2018-12-19 06:00] VITALS: BP 148/86
[2018-12-19 07:54] VITALS: BP 140/76
[2018-12-19] MEDS: HYDROGEN PEROXIDE 480 ML BOTTLE TP SCH ×2 (08:17→20:18)
[2018-12-19] MEDS: DOCUSATE SODIUM LIQ 100 MG/10 ML UDC GT SCH ×2 (08:50→17:15)
[2018-12-19] MEDS: MULTIVIT W/MINERALS 1 TAB TABLET GT SCH (08:50)
[2018-12-19] MEDS: ACIDOPHILUS/BULGARICUS 1 EACH TAB.CHEW GT SCH ×2 (08:50→17:15)
[2018-12-19] MEDS: OMEPRAZOLE 20 MG CAPSULE.DR GT SCH (08:50)
[2018-12-19] MEDS: FERROUS SULFATE - FOR SA ONLY 330 MG/7.5 ML UDC GT SCH (08:50)
[2018-12-19] MEDS: ASCORBIC ACID 500 MG TABLET GT SCH (08:50)
[2018-12-19] MEDS: ACETAMINOPHEN 650 MG/20 ML UDC- SA PATIENTS-PAIN ONLY GT SCH ×2 (08:50→20:58)
[2018-12-19] MEDS: LEVETIRACETAM SOL (5 ML) 100 MG/ML UDC GT SCH ×2 (08:50→20:58)
[2018-12-19] MEDS: ZINC SULFATE 220 MG CAPSULE GT SCH (08:51)
[2018-12-19] MEDS: NYSTATIN TOP POWDER 15 GM BOTTLE TP SCH ×2 (09:00→21:54)
[2018-12-19] MEDS: THERAHONEY GEL 1.5 OZ TUBE TP SCH ×2 (09:00→21:54)
[2018-12-19] MEDS: CLOTRIMAZOLE 1% 15 GM TUBE TP SCH ×2 (09:00→21:54)
[2018-12-19] MEDS: Z GUARD REMEDY 2 OZ OINT TP SCH ×2 (09:00→21:54)
[2018-12-19] MEDS: ZINC OXIDE 30 GM TUBE TP SCH ×2 (09:00→21:54)
--- NOTE | 2018-12-19 09:26 | NUR ---
Late Entry for 12/18/18 SW reminded patient's responsible green party, Kelly [phone] of the December Family Support group taking place 12/19/18 from 11am-12pm in the old admin. conference room. Per Kelly, she will not be able to make it.
[2018-12-19 12:00] VITALS: BP 155/85
[2018-12-19 18:31] VITALS: BP 157/76
[2018-12-19 20:46] VITALS: BP 141/89
[2018-12-19] MEDS: ENOXAPARIN SODIUM 40 MG/0.4 ML DISP.SYRIN SQ SCH (20:58)
[2018-12-19] MEDS: ATORVASTATIN 10 MG TABLET GT SCH (21:54)
[2018-12-19] MEDS: INSULIN GLARGINE, 100 UNIT/ML CARTRIDGE SQ SCH (21:55)
[2018-12-20] VITALS: BP 133/70
[2018-12-20] MEDS: ALBUTEROL FS 2.5 MG/3 ML VIAL.NEB NEB SCH ×4 (02:03→19:53)
[2018-12-20] MEDS: IPRATROPIUM NEB FS 0.5 MG/2.5 ML AMPUL.NEB NEB SCH ×4 (02:03→19:53)
[2018-12-20] MEDS: DILTIAZEM HCL 30 MG TABLET GT SCH ×4 (05:35→23:29)
[2018-12-20] MEDS: BLOOD SUGAR DIAGNOSTIC 1 EACH STRIP IN SCH ×4 (06:00→23:29)
[2018-12-20] MEDS: INSULIN ASPART/LISPRO 100 UNIT/ML CARTRIDGE SQ PRN ×4 (06:01→23:30)
[2018-12-20 06:23] VITALS: BP 126/66
[2018-12-20 06:33] LABS: BASOPHILS # (AUTO) 0.1 /CMM (0.0-0.2); BASOPHILS % (AUTO) 0.8 % (0.0-2.0); EOSINOPHILS % (AUTO) 2.7 % (0.0-6.0); HEMATOCRIT 31 % (33-45); HEMOGLOBIN 9.5 g/dL (11.5-14.8); LYMPHOCYTES # (AUTO) 2.2 /CMM (0.8-4.8); MEAN CORPUSCULAR HGB CONC 31 g/dl (31.0-36.0); MEAN CORPUSCULAR VOLUME 88 fL (82-100); MONOCYTES # (AUTO) 0.5 /CMM (0.1-1.30); MONOCYTES % (AUTO) 6.7 % (2.0-12.0); NEUTROPHILS # (AUTO) 4.4 /CMM (1.8-8.9); NEUTROPHILS % (AUTO) 59.8 % (43.0-81.0); PLATELET COUNT (AUTO) 474 /CMM (150-450); RED BLOOD CELL COUNT(AUTO) 3.46 MIL/uL (4.0-5.2); WHITE BLOOD COUNT (AUTO) 7.3 K/uL (4.3-11.0)
[2018-12-20 06:42] LABS: ALBUMIN 1.9 g/dL (3.4-5.0); BILIRUBIN,TOTAL 0.2 mg/dL (0.2-1.0); CREATININE 1.1 mg/dL (0.6-1.3); MAGNESIUM 1.9 mg/dL (1.8-2.4); PHOSPHORUS 4.1 mg/dL (2.5-4.9); POTASSIUM 5.1 mmol/L (3.5-5.1); TOTAL PROTEIN, SERUM 7.8 g/dL (6.4-8.2)
[2018-12-20 07:59] VITALS: BP 130/77
[2018-12-20] MEDS: HYDROGEN PEROXIDE 480 ML BOTTLE TP SCH ×2 (08:15→20:25)
[2018-12-20] MEDS: ASCORBIC ACID 500 MG TABLET GT SCH (09:14)
[2018-12-20] MEDS: MULTIVIT W/MINERALS 1 TAB TABLET GT SCH (09:14)
[2018-12-20] MEDS: ZINC SULFATE 220 MG CAPSULE GT SCH (09:14)
[2018-12-20] MEDS: OMEPRAZOLE 20 MG CAPSULE.DR GT SCH (09:14)
[2018-12-20] MEDS: CLOTRIMAZOLE 1% 15 GM TUBE TP SCH ×2 (09:14→20:27)
[2018-12-20] MEDS: DOCUSATE SODIUM LIQ 100 MG/10 ML UDC GT SCH ×2 (09:14→17:35)
[2018-12-20] MEDS: THERAHONEY GEL 1.5 OZ TUBE TP SCH ×2 (09:14→20:27)
[2018-12-20] MEDS: FERROUS SULFATE - FOR SA ONLY 330 MG/7.5 ML UDC GT SCH (09:14)
[2018-12-20] MEDS: Z GUARD REMEDY 2 OZ OINT TP SCH ×2 (09:14→20:27)
[2018-12-20] MEDS: ACIDOPHILUS/BULGARICUS 1 EACH TAB.CHEW GT SCH ×2 (09:14→17:35)
[2018-12-20] MEDS: NYSTATIN TOP POWDER 15 GM BOTTLE TP SCH ×2 (09:14→20:27)
[2018-12-20] MEDS: ACETAMINOPHEN 650 MG/20 ML UDC- SA PATIENTS-PAIN ONLY GT SCH ×2 (09:14→20:25)
[2018-12-20] MEDS: LEVETIRACETAM SOL (5 ML) 100 MG/ML UDC GT SCH ×2 (09:14→20:24)
[2018-12-20] MEDS: ZINC OXIDE 30 GM TUBE TP SCH ×2 (09:15→20:27)
[2018-12-20 12:00] VITALS: BP 135/62
[2018-12-20] MEDS: GLUCERNA 1.2 1,000 ML BOTTLE GT PRN (12:20)
[2018-12-20 18:57] VITALS: BP 155/79
[2018-12-20 20:00] VITALS: BP 122/69
[2018-12-20] MEDS: ENOXAPARIN SODIUM 40 MG/0.4 ML DISP.SYRIN SQ SCH (20:25)
[2018-12-20] MEDS: ATORVASTATIN 10 MG TABLET GT SCH (21:12)
[2018-12-20] MEDS: INSULIN GLARGINE, 100 UNIT/ML CARTRIDGE SQ SCH (21:13)
[2018-12-21 00:03] VITALS: BP 147/88
[2018-12-21] MEDS: ALBUTEROL FS 2.5 MG/3 ML VIAL.NEB NEB SCH ×4 (00:50→19:23)
[2018-12-21] MEDS: IPRATROPIUM NEB FS 0.5 MG/2.5 ML AMPUL.NEB NEB SCH ×4 (00:50→19:23)
[2018-12-21] MEDS: BLOOD SUGAR DIAGNOSTIC 1 EACH STRIP IN SCH ×4 (05:09→23:27)
[2018-12-21] MEDS: DILTIAZEM HCL 30 MG TABLET GT SCH ×4 (05:09→23:27)
[2018-12-21] MEDS: INSULIN ASPART/LISPRO 100 UNIT/ML CARTRIDGE SQ PRN ×4 (05:21→23:28)
[2018-12-21 06:15] VITALS: BP 112/74
[2018-12-21 07:36] VITALS: BP 144/66
[2018-12-21] MEDS: DOCUSATE SODIUM LIQ 100 MG/10 ML UDC GT SCH ×2 (08:36→16:24)
[2018-12-21] MEDS: FERROUS SULFATE - FOR SA ONLY 330 MG/7.5 ML UDC GT SCH (08:36)
[2018-12-21] MEDS: ACIDOPHILUS/BULGARICUS 1 EACH TAB.CHEW GT SCH ×2 (08:36→16:24)
[2018-12-21] MEDS: LEVETIRACETAM SOL (5 ML) 100 MG/ML UDC GT SCH ×2 (08:36→20:40)
[2018-12-21] MEDS: ASCORBIC ACID 500 MG TABLET GT SCH (08:36)
[2018-12-21] MEDS: ZINC SULFATE 220 MG CAPSULE GT SCH (08:36)
[2018-12-21] MEDS: MULTIVIT W/MINERALS 1 TAB TABLET GT SCH (08:36)
[2018-12-21] MEDS: OMEPRAZOLE 20 MG CAPSULE.DR GT SCH (08:36)
[2018-12-21] MEDS: ACETAMINOPHEN 650 MG/20 ML UDC- SA PATIENTS-PAIN ONLY GT SCH ×2 (08:36→20:41)
[2018-12-21] MEDS: THERAHONEY GEL 1.5 OZ TUBE TP SCH ×2 (09:00→20:42)
[2018-12-21] MEDS: CLOTRIMAZOLE 1% 15 GM TUBE TP SCH ×2 (09:00→20:42)
[2018-12-21] MEDS: Z GUARD REMEDY 2 OZ OINT TP SCH ×2 (09:00→20:42)
[2018-12-21] MEDS: NYSTATIN TOP POWDER 15 GM BOTTLE TP SCH ×2 (09:00→20:42)
[2018-12-21] MEDS: ZINC OXIDE 30 GM TUBE TP SCH ×2 (09:00→20:42)
[2018-12-21] MEDS: HYDROGEN PEROXIDE 480 ML BOTTLE TP SCH ×2 (09:44→20:42)
[2018-12-21 12:00] VITALS: BP 138/68
[2018-12-21] MEDS: GLUCERNA 1.2 1,000 ML BOTTLE GT PRN (17:18)
[2018-12-21 18:41] VITALS: BP 118/59
[2018-12-21 19:31] VITALS: BP 124/70
[2018-12-21] MEDS: ENOXAPARIN SODIUM 40 MG/0.4 ML DISP.SYRIN SQ SCH (20:41)
[2018-12-21] MEDS: ATORVASTATIN 10 MG TABLET GT SCH (21:26)
[2018-12-21] MEDS: INSULIN GLARGINE, 100 UNIT/ML CARTRIDGE SQ SCH (21:26)
[2018-12-22 01:03] VITALS: BP 133/64
[2018-12-22] MEDS: IPRATROPIUM NEB FS 0.5 MG/2.5 ML AMPUL.NEB NEB SCH ×4 (01:19→20:00)
[2018-12-22] MEDS: ALBUTEROL FS 2.5 MG/3 ML VIAL.NEB NEB SCH ×4 (01:19→20:00)
[2018-12-22] MEDS: DILTIAZEM HCL 30 MG TABLET GT SCH ×4 (05:23→23:17)
[2018-12-22] MEDS: GLUCERNA 1.2 1,000 ML BOTTLE GT PRN ×2 (05:26→23:17)
[2018-12-22] MEDS: INSULIN ASPART/LISPRO 100 UNIT/ML CARTRIDGE SQ PRN ×4 (05:40→23:17)
[2018-12-22] MEDS: BLOOD SUGAR DIAGNOSTIC 1 EACH STRIP IN SCH ×4 (05:40→23:17)
[2018-12-22 06:19] VITALS: BP 121/67
[2018-12-22 08:12] VITALS: BP 126/69
[2018-12-22] MEDS: FERROUS SULFATE - FOR SA ONLY 330 MG/7.5 ML UDC GT SCH (08:51)
[2018-12-22] MEDS: LEVETIRACETAM SOL (5 ML) 100 MG/ML UDC GT SCH ×2 (08:51→20:38)
[2018-12-22] MEDS: DOCUSATE SODIUM LIQ 100 MG/10 ML UDC GT SCH ×2 (08:51→17:05)
[2018-12-22] MEDS: ACIDOPHILUS/BULGARICUS 1 EACH TAB.CHEW GT SCH ×2 (08:52→17:05)
[2018-12-22] MEDS: OMEPRAZOLE 20 MG CAPSULE.DR GT SCH (08:52)
[2018-12-22] MEDS: MULTIVIT W/MINERALS 1 TAB TABLET GT SCH (08:52)
[2018-12-22] MEDS: ASCORBIC ACID 500 MG TABLET GT SCH (08:53)
[2018-12-22] MEDS: ACETAMINOPHEN 650 MG/20 ML UDC- SA PATIENTS-PAIN ONLY GT SCH ×2 (08:53→20:39)
[2018-12-22] MEDS: ZINC SULFATE 220 MG CAPSULE GT SCH (08:53)
[2018-12-22] MEDS: HYDROGEN PEROXIDE 480 ML BOTTLE TP SCH ×2 (09:39→20:39)
[2018-12-22] MEDS: THERAHONEY GEL 1.5 OZ TUBE TP SCH ×2 (09:53→20:39)
[2018-12-22] MEDS: Z GUARD REMEDY 2 OZ OINT TP SCH ×2 (09:53→20:39)
[2018-12-22] MEDS: CLOTRIMAZOLE 1% 15 GM TUBE TP SCH ×2 (09:53→20:39)
[2018-12-22] MEDS: ZINC OXIDE 30 GM TUBE TP SCH ×2 (09:53→20:39)
[2018-12-22 12:00] VITALS: BP 116/60
[2018-12-22 18:00] VITALS: BP 153/81
[2018-12-22 19:34] VITALS: BP 118/65
[2018-12-22] MEDS: ENOXAPARIN SODIUM 40 MG/0.4 ML DISP.SYRIN SQ SCH (20:39)
[2018-12-22] MEDS: ATORVASTATIN 10 MG TABLET GT SCH (21:17)
[2018-12-22] MEDS: INSULIN GLARGINE, 100 UNIT/ML CARTRIDGE SQ SCH (21:18)
[2018-12-23] MEDS: ALBUTEROL FS 2.5 MG/3 ML VIAL.NEB NEB SCH ×4 (01:28→19:41)
[2018-12-23] MEDS: IPRATROPIUM NEB FS 0.5 MG/2.5 ML AMPUL.NEB NEB SCH ×4 (01:28→19:41)
[2018-12-23 03:05] VITALS: BP 122/81
[2018-12-23] MEDS: DILTIAZEM HCL 30 MG TABLET GT SCH ×3 (05:21→17:13)
[2018-12-23] MEDS: BLOOD SUGAR DIAGNOSTIC 1 EACH STRIP IN SCH ×3 (05:21→17:13)
[2018-12-23] MEDS: INSULIN ASPART/LISPRO 100 UNIT/ML CARTRIDGE SQ PRN ×3 (05:22→17:16)
[2018-12-23 06:05] VITALS: BP 129/77
[2018-12-23 07:51] VITALS: BP 147/79
[2018-12-23] MEDS: OMEPRAZOLE 20 MG CAPSULE.DR GT SCH (08:14)
[2018-12-23] MEDS: LEVETIRACETAM SOL (5 ML) 100 MG/ML UDC GT SCH ×2 (08:14→21:17)
[2018-12-23] MEDS: FERROUS SULFATE - FOR SA ONLY 330 MG/7.5 ML UDC GT SCH (08:14)
[2018-12-23] MEDS: DOCUSATE SODIUM LIQ 100 MG/10 ML UDC GT SCH ×2 (08:14→16:47)
[2018-12-23] MEDS: ACIDOPHILUS/BULGARICUS 1 EACH TAB.CHEW GT SCH ×2 (08:14→16:47)
[2018-12-23] MEDS: MULTIVIT W/MINERALS 1 TAB TABLET GT SCH (08:14)
[2018-12-23] MEDS: ACETAMINOPHEN 650 MG/20 ML UDC- SA PATIENTS-PAIN ONLY GT SCH ×2 (08:15→21:17)
[2018-12-23] MEDS: ZINC SULFATE 220 MG CAPSULE GT SCH (08:15)
[2018-12-23] MEDS: ASCORBIC ACID 500 MG TABLET GT SCH (08:15)
[2018-12-23] MEDS: HYDROGEN PEROXIDE 480 ML BOTTLE TP SCH ×2 (09:00→21:17)
[2018-12-23] MEDS: CLOTRIMAZOLE 1% 15 GM TUBE TP SCH ×2 (09:22→21:17)
[2018-12-23] MEDS: ZINC OXIDE 30 GM TUBE TP SCH ×2 (09:22→21:18)
[2018-12-23] MEDS: Z GUARD REMEDY 2 OZ OINT TP SCH ×2 (09:22→21:17)
[2018-12-23] MEDS: THERAHONEY GEL 1.5 OZ TUBE TP SCH ×2 (09:22→21:17)
[2018-12-23 12:00] VITALS: BP 104/68
[2018-12-23] MEDS: GLUCERNA 1.2 1,000 ML BOTTLE GT PRN (16:47)
[2018-12-23 18:00] VITALS: BP 119/61
[2018-12-23 20:02] VITALS: BP 125/71
[2018-12-23] MEDS: ENOXAPARIN SODIUM 40 MG/0.4 ML DISP.SYRIN SQ SCH (21:17)
[2018-12-23] MEDS: ATORVASTATIN 10 MG TABLET GT SCH (21:18)
[2018-12-23] MEDS: INSULIN GLARGINE, 100 UNIT/ML CARTRIDGE SQ SCH (21:18)
[2018-12-24 00:04] VITALS: BP 122/69
[2018-12-24] MEDS: DILTIAZEM HCL 30 MG TABLET GT SCH ×5 (00:05→23:24)
[2018-12-24] MEDS: BLOOD SUGAR DIAGNOSTIC 1 EACH STRIP IN SCH ×5 (00:05→23:24)
[2018-12-24] MEDS: ALBUTEROL FS 2.5 MG/3 ML VIAL.NEB NEB SCH ×4 (01:32→19:25)
[2018-12-24] MEDS: IPRATROPIUM NEB FS 0.5 MG/2.5 ML AMPUL.NEB NEB SCH ×4 (01:33→19:25)
[2018-12-24 06:05] VITALS: BP 130/64
[2018-12-24] MEDS: HYDROGEN PEROXIDE 480 ML BOTTLE TP SCH ×2 (07:27→21:00)
[2018-12-24 07:37] VITALS: BP 124/73
[2018-12-24] MEDS: ASCORBIC ACID 500 MG TABLET GT SCH (08:14)
[2018-12-24] MEDS: DOCUSATE SODIUM LIQ 100 MG/10 ML UDC GT SCH ×2 (08:14→17:02)
[2018-12-24] MEDS: OMEPRAZOLE 20 MG CAPSULE.DR GT SCH (08:14)
[2018-12-24] MEDS: LEVETIRACETAM SOL (5 ML) 100 MG/ML UDC GT SCH ×2 (08:14→20:17)
[2018-12-24] MEDS: FERROUS SULFATE - FOR SA ONLY 330 MG/7.5 ML UDC GT SCH (08:14)
[2018-12-24] MEDS: ZINC SULFATE 220 MG CAPSULE GT SCH (08:14)
[2018-12-24] MEDS: MULTIVIT W/MINERALS 1 TAB TABLET GT SCH (08:14)
[2018-12-24] MEDS: ACETAMINOPHEN 650 MG/20 ML UDC- SA PATIENTS-PAIN ONLY GT SCH ×2 (08:14→20:17)
[2018-12-24] MEDS: ACIDOPHILUS/BULGARICUS 1 EACH TAB.CHEW GT SCH ×2 (08:14→17:02)
[2018-12-24] MEDS: ZINC OXIDE 30 GM TUBE TP SCH ×2 (09:00→21:00)
[2018-12-24] MEDS: THERAHONEY GEL 1.5 OZ TUBE TP SCH ×2 (09:00→20:59)
[2018-12-24] MEDS: Z GUARD REMEDY 2 OZ OINT TP SCH ×2 (09:00→20:59)
[2018-12-24] MEDS: CLOTRIMAZOLE 1% 15 GM TUBE TP SCH ×2 (09:00→20:18)
[2018-12-24] MEDS: GLUCERNA 1.2 1,000 ML BOTTLE GT PRN (11:34)
[2018-12-24 12:00] VITALS: BP 146/78
[2018-12-24] MEDS: INSULIN ASPART/LISPRO 100 UNIT/ML CARTRIDGE SQ PRN ×3 (12:34→23:25)
--- NOTE | 2018-12-24 15:57 | NUR ---
RT NOTE: RECEIVED PT ON 28% COOL AEROSOL. NO RESPIRATORY DISTRESS NOTED. TRACH CHECKED SECURE AND PATENT. SXD AND LAVAGED PT Q ROUND AND NEEDED. TXS GIVEN ORDERED WITH NO ADVERSE REACTIONS NOTED. TRACH CARE DONE. SPARE TRACH AND AMBU BAG @ BEDSIDE.
[2018-12-24 18:00] VITALS: BP 145/85
[2018-12-24 19:45] VITALS: BP 135/67
[2018-12-24] MEDS: ENOXAPARIN SODIUM 40 MG/0.4 ML DISP.SYRIN SQ SCH (20:18)
[2018-12-24] MEDS: ATORVASTATIN 10 MG TABLET GT SCH (21:00)
[2018-12-24] MEDS: INSULIN GLARGINE, 100 UNIT/ML CARTRIDGE SQ SCH (21:51)
[2018-12-25] VITALS: BP 128/66
[2018-12-25] MEDS: ALBUTEROL FS 2.5 MG/3 ML VIAL.NEB NEB SCH ×4 (01:26→19:49)
[2018-12-25] MEDS: IPRATROPIUM NEB FS 0.5 MG/2.5 ML AMPUL.NEB NEB SCH ×4 (01:26→19:49)
[2018-12-25] MEDS: BLOOD SUGAR DIAGNOSTIC 1 EACH STRIP IN SCH ×4 (05:48→23:11)
[2018-12-25] MEDS: DILTIAZEM HCL 30 MG TABLET GT SCH ×4 (05:48→23:11)
[2018-12-25] MEDS: INSULIN ASPART/LISPRO 100 UNIT/ML CARTRIDGE SQ PRN ×3 (05:49→23:12)
[2018-12-25 06:05] VITALS: BP 133/70
[2018-12-25 07:58] VITALS: BP 139/74
[2018-12-25] MEDS: ZINC SULFATE 220 MG CAPSULE GT SCH (08:20)
[2018-12-25] MEDS: LEVETIRACETAM SOL (5 ML) 100 MG/ML UDC GT SCH ×2 (08:20→20:51)
[2018-12-25] MEDS: ACIDOPHILUS/BULGARICUS 1 EACH TAB.CHEW GT SCH ×2 (08:20→16:42)
[2018-12-25] MEDS: ASCORBIC ACID 500 MG TABLET GT SCH (08:20)
[2018-12-25] MEDS: MULTIVIT W/MINERALS 1 TAB TABLET GT SCH (08:20)
[2018-12-25] MEDS: ACETAMINOPHEN 650 MG/20 ML UDC- SA PATIENTS-PAIN ONLY GT SCH ×2 (08:20→20:52)
[2018-12-25] MEDS: FERROUS SULFATE - FOR SA ONLY 330 MG/7.5 ML UDC GT SCH (08:20)
[2018-12-25] MEDS: OMEPRAZOLE 20 MG CAPSULE.DR GT SCH (08:20)
[2018-12-25] MEDS: DOCUSATE SODIUM LIQ 100 MG/10 ML UDC GT SCH ×2 (08:20→16:42)
[2018-12-25] MEDS: Z GUARD REMEDY 2 OZ OINT TP SCH ×2 (09:00→21:40)
[2018-12-25] MEDS: THERAHONEY GEL 1.5 OZ TUBE TP SCH ×2 (09:00→21:40)
[2018-12-25] MEDS: CLOTRIMAZOLE 1% 15 GM TUBE TP SCH ×2 (09:00→21:39)
[2018-12-25] MEDS: ZINC OXIDE 30 GM TUBE TP SCH ×2 (09:00→21:40)
[2018-12-25] MEDS: HYDROGEN PEROXIDE 480 ML BOTTLE TP SCH ×2 (09:25→20:19)
[2018-12-25 12:00] VITALS: BP 114/60
[2018-12-25 18:34] VITALS: BP 104/49
[2018-12-25] MEDS: ENOXAPARIN SODIUM 40 MG/0.4 ML DISP.SYRIN SQ SCH (20:53)
[2018-12-25] MEDS: ATORVASTATIN 10 MG TABLET GT SCH (21:32)
[2018-12-25] MEDS: INSULIN GLARGINE, 100 UNIT/ML CARTRIDGE SQ SCH (21:32)
[2018-12-26] VITALS: BP 144/72
[2018-12-26] MEDS: ALBUTEROL FS 2.5 MG/3 ML VIAL.NEB NEB SCH ×4 (00:49→20:02)
[2018-12-26] MEDS: IPRATROPIUM NEB FS 0.5 MG/2.5 ML AMPUL.NEB NEB SCH ×4 (00:49→20:02)
--- NOTE | 2018-12-26 03:48 | NUR ---
PT RCVD TRACH'D ON COOL AEROSOL WITH CHARTED SETTINGS. PT [place] TX WELL. SX DONE. PT TRACH IS PATENT AND SECURE. AMBU BAG AT BEDSIDE. Addendum: 12/26/18 at 0348 by JOEY PAPPAS RT Amended: Links added.
[2018-12-26] MEDS: DILTIAZEM HCL 30 MG TABLET GT SCH ×4 (05:12→23:53)
[2018-12-26] MEDS: BLOOD SUGAR DIAGNOSTIC 1 EACH STRIP IN SCH ×4 (05:58→23:53)
[2018-12-26] MEDS: INSULIN ASPART/LISPRO 100 UNIT/ML CARTRIDGE SQ PRN ×4 (06:00→23:54)
[2018-12-26 06:14] VITALS: BP 138/70
[2018-12-26 07:33] VITALS: BP 106/72
[2018-12-26] MEDS: HYDROGEN PEROXIDE 480 ML BOTTLE TP SCH ×2 (08:08→21:16)
[2018-12-26] MEDS: DOCUSATE SODIUM LIQ 100 MG/10 ML UDC GT SCH ×2 (09:25→17:07)
[2018-12-26] MEDS: CLOTRIMAZOLE 1% 15 GM TUBE TP SCH ×2 (09:26→21:16)
[2018-12-26] MEDS: LEVETIRACETAM SOL (5 ML) 100 MG/ML UDC GT SCH ×2 (09:26→21:10)
[2018-12-26] MEDS: ZINC SULFATE 220 MG CAPSULE GT SCH (09:26)
[2018-12-26] MEDS: MULTIVIT W/MINERALS 1 TAB TABLET GT SCH (09:26)
[2018-12-26] MEDS: ZINC OXIDE 30 GM TUBE TP SCH ×2 (09:26→21:16)
[2018-12-26] MEDS: ACIDOPHILUS/BULGARICUS 1 EACH TAB.CHEW GT SCH ×2 (09:26→17:07)
[2018-12-26] MEDS: FERROUS SULFATE - FOR SA ONLY 330 MG/7.5 ML UDC GT SCH (09:26)
[2018-12-26] MEDS: ASCORBIC ACID 500 MG TABLET GT SCH (09:26)
[2018-12-26] MEDS: ACETAMINOPHEN 650 MG/20 ML UDC- SA PATIENTS-PAIN ONLY GT SCH ×2 (09:26→21:10)
[2018-12-26] MEDS: OMEPRAZOLE 20 MG CAPSULE.DR GT SCH (09:26)
[2018-12-26] MEDS: Z GUARD REMEDY 2 OZ OINT TP SCH ×2 (09:26→21:16)
[2018-12-26] MEDS: THERAHONEY GEL 1.5 OZ TUBE TP SCH ×2 (09:26→21:16)
[2018-12-26 12:00] VITALS: BP 132/56
--- NOTE | 2018-12-26 12:20 | NUR ---
RT: RECEIVED PT ON COOL AEROSOL ON 28% O2. SPARE TRACH AND AMBU BAG AT HEAD OF BED. TX GIVEN ORDERED. NO ADVERSE REACTIONS OBSERVED. SUCTIONED SMALL AMOUNTS OF THICK, PALE YELLOW SECRETIONS. TRACH CARE DONE. AIRWAY SECURED AND PATENT. NO SOB OR SIGNS OF DISTRESS NOTED AT THIS TIME. WILL CONTINUE TO MONITOR PT FOR ANY CHANGE OF CONDITION.
[2018-12-26] MEDS: GLUCERNA 1.2 1,000 ML BOTTLE GT PRN (17:09)
[2018-12-26 18:21] VITALS: BP 130/55
[2018-12-26 20:26] VITALS: BP 127/72
[2018-12-26] MEDS: ENOXAPARIN SODIUM 40 MG/0.4 ML DISP.SYRIN SQ SCH (21:16)
[2018-12-26] MEDS: ATORVASTATIN 10 MG TABLET GT SCH (21:16)
[2018-12-26] MEDS: INSULIN GLARGINE, 100 UNIT/ML CARTRIDGE SQ SCH (21:35)
[2018-12-27 00:20] VITALS: BP 122/64
[2018-12-27] MEDS: ALBUTEROL FS 2.5 MG/3 ML VIAL.NEB NEB SCH ×4 (01:31→19:51)
[2018-12-27] MEDS: IPRATROPIUM NEB FS 0.5 MG/2.5 ML AMPUL.NEB NEB SCH ×4 (01:31→19:51)
[2018-12-27] MEDS: DILTIAZEM HCL 30 MG TABLET GT SCH ×3 (05:57→17:17)
[2018-12-27] MEDS: BLOOD SUGAR DIAGNOSTIC 1 EACH STRIP IN SCH ×3 (05:57→17:36)
[2018-12-27] MEDS: INSULIN ASPART/LISPRO 100 UNIT/ML CARTRIDGE SQ PRN ×3 (05:59→17:37)
[2018-12-27] MEDS: GLUCERNA 1.2 1,000 ML BOTTLE GT PRN (06:00)
[2018-12-27 06:15] VITALS: BP 125/75
[2018-12-27 07:28] VITALS: BP 131/59
[2018-12-27] MEDS: HYDROGEN PEROXIDE 480 ML BOTTLE TP SCH ×2 (08:14→21:00)
[2018-12-27] MEDS: ACIDOPHILUS/BULGARICUS 1 EACH TAB.CHEW GT SCH ×2 (09:00→17:17)
[2018-12-27] MEDS: Z GUARD REMEDY 2 OZ OINT TP SCH ×2 (09:00→21:00)
[2018-12-27] MEDS: THERAHONEY GEL 1.5 OZ TUBE TP SCH ×2 (09:00→21:00)
[2018-12-27] MEDS: DOCUSATE SODIUM LIQ 100 MG/10 ML UDC GT SCH ×2 (09:00→17:17)
[2018-12-27] MEDS: MULTIVIT W/MINERALS 1 TAB TABLET GT SCH (09:00)
[2018-12-27] MEDS: ACETAMINOPHEN 650 MG/20 ML UDC- SA PATIENTS-PAIN ONLY GT SCH ×2 (09:00→20:59)
[2018-12-27] MEDS: LEVETIRACETAM SOL (5 ML) 100 MG/ML UDC GT SCH ×2 (09:00→20:59)
[2018-12-27] MEDS: FERROUS SULFATE - FOR SA ONLY 330 MG/7.5 ML UDC GT SCH (09:00)
[2018-12-27] MEDS: OMEPRAZOLE 20 MG CAPSULE.DR GT SCH (09:00)
[2018-12-27] MEDS: ZINC OXIDE 30 GM TUBE TP SCH ×2 (09:00→21:00)
[2018-12-27] MEDS: ASCORBIC ACID 500 MG TABLET GT SCH (09:00)
[2018-12-27] MEDS: ZINC SULFATE 220 MG CAPSULE GT SCH (09:00)
[2018-12-27] MEDS: CLOTRIMAZOLE 1% 15 GM TUBE TP SCH ×2 (09:00→21:00)
--- NOTE | 2018-12-27 10:18 | NUR ---
RT: PATIENT RECEIVED ON COOL AEROSOL ON 28% O2. SPARE TRACH AND AMBU BAG AT HEAD OF BED. TX GIVEN ORDERED. NO ADVERSE EFFECTS OBSERVED. SUCTIONED SMALL AMOUNTS OF THICK, PALE YELLOW SECRETIONS. TRACH CARE DONE. AIRWAY SECURED AND PATENT. NO SOB OR SIGNS OF DISTRESS NOTED AT THIS TIME. WILL CONTINUE TO MONITOR PT FOR ANY CHANGES.
[2018-12-27 12:00] VITALS: BP 119/56
--- NOTE | 2018-12-27 15:16 | NUR ---
Family Invite to IDT plan of care conference: SW contacted patients responsible democrat/ Kelly [phone] to invite them to the next IDT meeting 01/04/19 12:30pm-1:30pm where the patients plan of care is to be reviewed. Patients family was agreeable to plan and Kelly stated she will try to attend if she doesnt have to work.
[2018-12-27 18:01] VITALS: BP 159/84
[2018-12-27 20:00] VITALS: BP 131/78
[2018-12-27] MEDS: ENOXAPARIN SODIUM 40 MG/0.4 ML DISP.SYRIN SQ SCH (21:00)
[2018-12-27] MEDS: ATORVASTATIN 10 MG TABLET GT SCH (21:01)
[2018-12-27] MEDS: INSULIN GLARGINE, 100 UNIT/ML CARTRIDGE SQ SCH (21:01)
--- NOTE | 2018-12-27 21:59 | NUR ---
RT NOTE PATIENT RECEIVED TRACHED ON COOL AEROSOL @ 28%. AMBU BAG/BACK UP TRACH @ BEDSIDE. TX GIVEN, NO ADVERSE REACTIONS NOTED. SX DONE, TRACH SECURED AND PATENT. WATER LEVEL GOOD. WILL CONTINUE TO MONITOR T/O SHIFT. Addendum: 12/27/18 at 2159 by GIULIA BACON RT Amended: Links added.
[2018-12-28] VITALS: BP 148/86
[2018-12-28] MEDS: BLOOD SUGAR DIAGNOSTIC 1 EACH STRIP IN SCH ×5 (00:56→23:40)
[2018-12-28] MEDS: DILTIAZEM HCL 30 MG TABLET GT SCH ×5 (00:56→23:40)
[2018-12-28] MEDS: INSULIN ASPART/LISPRO 100 UNIT/ML CARTRIDGE SQ PRN ×5 (00:57→23:43)
[2018-12-28] MEDS: ALBUTEROL FS 2.5 MG/3 ML VIAL.NEB NEB SCH ×4 (01:09→20:00)
[2018-12-28] MEDS: IPRATROPIUM NEB FS 0.5 MG/2.5 ML AMPUL.NEB NEB SCH ×4 (01:09→20:00)
[2018-12-28 06:00] VITALS: BP 124/77
[2018-12-28 07:25] VITALS: BP 132/75
[2018-12-28] MEDS: HYDROGEN PEROXIDE 480 ML BOTTLE TP SCH ×2 (08:04→21:11)
[2018-12-28] MEDS: DOCUSATE SODIUM LIQ 100 MG/10 ML UDC GT SCH ×2 (09:28→16:17)
[2018-12-28] MEDS: ACIDOPHILUS/BULGARICUS 1 EACH TAB.CHEW GT SCH ×2 (09:28→16:17)
[2018-12-28] MEDS: FERROUS SULFATE - FOR SA ONLY 330 MG/7.5 ML UDC GT SCH (09:28)
[2018-12-28] MEDS: LEVETIRACETAM SOL (5 ML) 100 MG/ML UDC GT SCH ×2 (09:28→21:10)
[2018-12-28] MEDS: MULTIVIT W/MINERALS 1 TAB TABLET GT SCH (09:29)
[2018-12-28] MEDS: OMEPRAZOLE 20 MG CAPSULE.DR GT SCH (09:29)
[2018-12-28] MEDS: THERAHONEY GEL 1.5 OZ TUBE TP SCH ×2 (09:30→21:11)
[2018-12-28] MEDS: CLOTRIMAZOLE 1% 15 GM TUBE TP SCH ×2 (09:30→21:11)
[2018-12-28] MEDS: ZINC SULFATE 220 MG CAPSULE GT SCH (09:30)
[2018-12-28] MEDS: ACETAMINOPHEN 650 MG/20 ML UDC- SA PATIENTS-PAIN ONLY GT SCH ×2 (09:30→21:11)
[2018-12-28] MEDS: ASCORBIC ACID 500 MG TABLET GT SCH (09:30)
[2018-12-28] MEDS: Z GUARD REMEDY 2 OZ OINT TP SCH ×2 (09:30→21:11)
[2018-12-28] MEDS: ZINC OXIDE 30 GM TUBE TP SCH ×2 (09:30→21:12)
[2018-12-28] MEDS: GLUCERNA 1.2 1,000 ML BOTTLE GT PRN ×2 (12:34→23:41)
--- NOTE | 2018-12-28 13:00 | NUR ---
Seen and examined by Dr. Hawkins, no new order given.
[2018-12-28 15:16] VITALS: BP 152/92
[2018-12-28 18:21] VITALS: BP 119/59
[2018-12-28 20:02] VITALS: BP 118/73
[2018-12-28] MEDS: ENOXAPARIN SODIUM 40 MG/0.4 ML DISP.SYRIN SQ SCH (21:11)
[2018-12-28] MEDS: ATORVASTATIN 10 MG TABLET GT SCH (21:12)
[2018-12-28] MEDS: INSULIN GLARGINE, 100 UNIT/ML CARTRIDGE SQ SCH (21:12)
[2018-12-29 00:51] VITALS: BP 121/77
[2018-12-29] MEDS: ALBUTEROL FS 2.5 MG/3 ML VIAL.NEB NEB SCH ×4 (01:33→20:06)
[2018-12-29] MEDS: IPRATROPIUM NEB FS 0.5 MG/2.5 ML AMPUL.NEB NEB SCH ×4 (01:33→20:06)
--- NOTE | 2018-12-29 04:51 | NUR ---
RT PATIENT WAS RECEIVED ON 28% COOL AEROSOL. HHN INLINE TREATMENT WAS GIVEN,NO ADVERSE REACTION NOTED.PATIENT STABLE THROUGHOUT THE SHIFT. AIRWAY PATENT AND SECURED, WILL CONTINUE TO MONITOR. Addendum: 12/29/18 at 0451 by SHYANN BARRETT RT Amended: Links added.
[2018-12-29] MEDS: DILTIAZEM HCL 30 MG TABLET GT SCH ×4 (05:20→23:51)
[2018-12-29] MEDS: BLOOD SUGAR DIAGNOSTIC 1 EACH STRIP IN SCH ×4 (05:20→23:51)
[2018-12-29 06:35] VITALS: BP 129/77
[2018-12-29 07:36] VITALS: BP 136/72
[2018-12-29] MEDS: DOCUSATE SODIUM LIQ 100 MG/10 ML UDC GT SCH ×2 (08:53→17:00)
[2018-12-29] MEDS: FERROUS SULFATE - FOR SA ONLY 330 MG/7.5 ML UDC GT SCH (08:53)
[2018-12-29] MEDS: LEVETIRACETAM SOL (5 ML) 100 MG/ML UDC GT SCH ×2 (08:54→20:31)
[2018-12-29] MEDS: ACIDOPHILUS/BULGARICUS 1 EACH TAB.CHEW GT SCH ×2 (08:54→17:00)
[2018-12-29] MEDS: OMEPRAZOLE 20 MG CAPSULE.DR GT SCH (08:55)
[2018-12-29] MEDS: ZINC SULFATE 220 MG CAPSULE GT SCH (08:56)
[2018-12-29] MEDS: ASCORBIC ACID 500 MG TABLET GT SCH (08:56)
[2018-12-29] MEDS: ACETAMINOPHEN 650 MG/20 ML UDC- SA PATIENTS-PAIN ONLY GT SCH ×2 (08:56→20:31)
[2018-12-29] MEDS: MULTIVIT W/MINERALS 1 TAB TABLET GT SCH (08:57)
[2018-12-29] MEDS: CLOTRIMAZOLE 1% 15 GM TUBE TP SCH ×2 (09:00→20:31)
[2018-12-29] MEDS: THERAHONEY GEL 1.5 OZ TUBE TP SCH ×2 (09:00→20:32)
[2018-12-29] MEDS: ZINC OXIDE 30 GM TUBE TP SCH ×2 (09:00→20:32)
[2018-12-29] MEDS: HYDROGEN PEROXIDE 480 ML BOTTLE TP SCH ×2 (09:00→20:31)
[2018-12-29] MEDS: Z GUARD REMEDY 2 OZ OINT TP SCH ×2 (09:00→20:31)
[2018-12-29] MEDS: INSULIN ASPART/LISPRO 100 UNIT/ML CARTRIDGE SQ PRN ×3 (11:45→23:51)
[2018-12-29 12:00] VITALS: BP 157/97
[2018-12-29 18:00] VITALS: BP 139/75
[2018-12-29 20:17] VITALS: BP 124/78
--- NOTE | 2018-12-29 20:21 | NUR ---
RT note PT received trached on Cool Aerosol FIO2 28%. No signs of resp distress/SOB noted. PT suctioned. HHN TX given. No adverse reactions noted. Ambubag and back up trach at head of bed. Will cont to monitor. Addendum: 12/30/18 at 0617 by ERICK HATCH RT Amended: Links added.
[2018-12-29] MEDS: ENOXAPARIN SODIUM 40 MG/0.4 ML DISP.SYRIN SQ SCH (20:31)
[2018-12-29] MEDS: ATORVASTATIN 10 MG TABLET GT SCH (21:20)
[2018-12-29] MEDS: INSULIN GLARGINE, 100 UNIT/ML CARTRIDGE SQ SCH (21:22)
[2018-12-30 00:39] VITALS: BP 122/75
[2018-12-30] MEDS: ALBUTEROL FS 2.5 MG/3 ML VIAL.NEB NEB SCH ×4 (01:47→19:30)
[2018-12-30] MEDS: IPRATROPIUM NEB FS 0.5 MG/2.5 ML AMPUL.NEB NEB SCH ×4 (01:47→19:30)
[2018-12-30] MEDS: GLUCERNA 1.2 1,000 ML BOTTLE GT PRN ×2 (05:04→18:08)
[2018-12-30] MEDS: BLOOD SUGAR DIAGNOSTIC 1 EACH STRIP IN SCH ×3 (05:04→17:33)
[2018-12-30] MEDS: DILTIAZEM HCL 30 MG TABLET GT SCH ×3 (05:04→17:33)
[2018-12-30] MEDS: INSULIN ASPART/LISPRO 100 UNIT/ML CARTRIDGE SQ PRN ×3 (05:05→17:38)
[2018-12-30 06:05] VITALS: BP 134/75
[2018-12-30 07:36] VITALS: BP 120/59
[2018-12-30] MEDS: HYDROGEN PEROXIDE 480 ML BOTTLE TP SCH ×2 (08:23→21:00)
[2018-12-30] MEDS: OMEPRAZOLE 20 MG CAPSULE.DR GT SCH (08:44)
[2018-12-30] MEDS: FERROUS SULFATE - FOR SA ONLY 330 MG/7.5 ML UDC GT SCH (08:44)
[2018-12-30] MEDS: ACIDOPHILUS/BULGARICUS 1 EACH TAB.CHEW GT SCH ×2 (08:44→17:33)
[2018-12-30] MEDS: DOCUSATE SODIUM LIQ 100 MG/10 ML UDC GT SCH ×2 (08:44→17:33)
[2018-12-30] MEDS: LEVETIRACETAM SOL (5 ML) 100 MG/ML UDC GT SCH ×2 (08:44→20:14)
[2018-12-30] MEDS: ACETAMINOPHEN 650 MG/20 ML UDC- SA PATIENTS-PAIN ONLY GT SCH ×2 (08:45→20:17)
[2018-12-30] MEDS: MULTIVIT W/MINERALS 1 TAB TABLET GT SCH (08:46)
[2018-12-30] MEDS: ASCORBIC ACID 500 MG TABLET GT SCH (08:46)
[2018-12-30] MEDS: ZINC SULFATE 220 MG CAPSULE GT SCH (08:46)
[2018-12-30] MEDS: THERAHONEY GEL 1.5 OZ TUBE TP SCH ×2 (09:00→20:18)
[2018-12-30] MEDS: Z GUARD REMEDY 2 OZ OINT TP SCH ×2 (09:00→20:18)
[2018-12-30] MEDS: CLOTRIMAZOLE 1% 15 GM TUBE TP SCH ×2 (09:00→20:18)
[2018-12-30] MEDS: ZINC OXIDE 30 GM TUBE TP SCH ×2 (09:00→20:18)
[2018-12-30 12:00] VITALS: BP 124/76
[2018-12-30 18:00] VITALS: BP 114/74
[2018-12-30] MEDS: ENOXAPARIN SODIUM 40 MG/0.4 ML DISP.SYRIN SQ SCH (20:18)
[2018-12-30 20:23] VITALS: BP 132/78
[2018-12-30] MEDS: ATORVASTATIN 10 MG TABLET GT SCH (21:23)
[2018-12-30] MEDS: INSULIN GLARGINE, 100 UNIT/ML CARTRIDGE SQ SCH (21:26)
[2018-12-31] MEDS: DILTIAZEM HCL 30 MG TABLET GT SCH ×5 (00:47→23:41)
[2018-12-31] MEDS: BLOOD SUGAR DIAGNOSTIC 1 EACH STRIP IN SCH ×5 (00:48→23:42)
[2018-12-31] MEDS: INSULIN ASPART/LISPRO 100 UNIT/ML CARTRIDGE SQ PRN ×5 (00:49→23:43)
[2018-12-31 00:53] VITALS: BP 131/74
[2018-12-31] MEDS: IPRATROPIUM NEB FS 0.5 MG/2.5 ML AMPUL.NEB NEB SCH ×4 (02:08→19:15)
[2018-12-31] MEDS: ALBUTEROL FS 2.5 MG/3 ML VIAL.NEB NEB SCH ×4 (02:08→19:16)
[2018-12-31 06:21] VITALS: BP 157/92
[2018-12-31] MEDS: LEVETIRACETAM SOL (5 ML) 100 MG/ML UDC GT SCH ×2 (08:17→21:13)
[2018-12-31] MEDS: OMEPRAZOLE 20 MG CAPSULE.DR GT SCH (08:17)
[2018-12-31] MEDS: MULTIVIT W/MINERALS 1 TAB TABLET GT SCH (08:17)
[2018-12-31] MEDS: FERROUS SULFATE - FOR SA ONLY 330 MG/7.5 ML UDC GT SCH (08:17)
[2018-12-31] MEDS: DOCUSATE SODIUM LIQ 100 MG/10 ML UDC GT SCH ×2 (08:17→17:16)
[2018-12-31] MEDS: ACIDOPHILUS/BULGARICUS 1 EACH TAB.CHEW GT SCH ×2 (08:17→17:16)
[2018-12-31] MEDS: ACETAMINOPHEN 650 MG/20 ML UDC- SA PATIENTS-PAIN ONLY GT SCH ×2 (08:18→21:13)
[2018-12-31] MEDS: ASCORBIC ACID 500 MG TABLET GT SCH (08:18)
[2018-12-31] MEDS: ZINC SULFATE 220 MG CAPSULE GT SCH (08:18)
[2018-12-31 08:54] VITALS: BP 121/69
[2018-12-31] MEDS: HYDROGEN PEROXIDE 480 ML BOTTLE TP SCH ×2 (09:00→21:01)
[2018-12-31] MEDS: THERAHONEY GEL 1.5 OZ TUBE TP SCH ×2 (09:18→21:14)
[2018-12-31] MEDS: ZINC OXIDE 30 GM TUBE TP SCH ×2 (09:18→21:14)
[2018-12-31] MEDS: Z GUARD REMEDY 2 OZ OINT TP SCH ×2 (09:18→21:14)
[2018-12-31] MEDS: CLOTRIMAZOLE 1% 15 GM TUBE TP SCH ×2 (09:18→21:14)
--- NOTE | 2018-12-31 11:30 | NUR ---
Noted with skin tear on left under breast, no bleeding noted, no s/s of pain. Treatment ordered. Left message to daughter Kelly Wong. Will continue to monitor.
[2018-12-31 12:00] VITALS: BP 138/70
[2018-12-31] MEDS: GLUCERNA 1.2 1,000 ML BOTTLE GT PRN (13:35)
[2018-12-31 18:00] VITALS: BP_SYST 138; BP_SYST 139; BP_DIAS 70; BP_DIAS 80
[2018-12-31 20:21] VITALS: BP 129/75
[2018-12-31] MEDS: ENOXAPARIN SODIUM 40 MG/0.4 ML DISP.SYRIN SQ SCH (21:14)
[2018-12-31] MEDS: ATORVASTATIN 10 MG TABLET GT SCH (21:14)
[2018-12-31] MEDS: INSULIN GLARGINE, 100 UNIT/ML CARTRIDGE SQ SCH (21:15)
[2019-01-01] VITALS: BP 143/88
[2019-01-01] MEDS: IPRATROPIUM NEB FS 0.5 MG/2.5 ML AMPUL.NEB NEB SCH ×4 (00:36→19:05)
[2019-01-01] MEDS: ALBUTEROL FS 2.5 MG/3 ML VIAL.NEB NEB SCH ×4 (00:36→19:05)
[2019-01-01] MEDS: DILTIAZEM HCL 30 MG TABLET GT SCH ×3 (05:05→17:42)
[2019-01-01] MEDS: INSULIN ASPART/LISPRO 100 UNIT/ML CARTRIDGE SQ PRN ×3 (05:06→17:43)
[2019-01-01] MEDS: BLOOD SUGAR DIAGNOSTIC 1 EACH STRIP IN SCH ×3 (05:06→17:43)
[2019-01-01 06:00] VITALS: BP 159/89
[2019-01-01 07:44] VITALS: BP 143/88
--- NOTE | 2019-01-01 08:03 | NUR ---
RT Pt received trached on cool aerosol, tolerating well. HHN tx given with no adverse reactions. No SOB or respiratory distress noted. Addendum: 01/01/19 at 0941 by FIGUEROA BHATIA RT Amended: Links added.
[2019-01-01] MEDS: OMEPRAZOLE 20 MG CAPSULE.DR GT SCH (08:54)
[2019-01-01] MEDS: ZINC SULFATE 220 MG CAPSULE GT SCH (08:54)
[2019-01-01] MEDS: MULTIVIT W/MINERALS 1 TAB TABLET GT SCH (08:54)
[2019-01-01] MEDS: DOCUSATE SODIUM LIQ 100 MG/10 ML UDC GT SCH ×2 (08:54→17:42)
[2019-01-01] MEDS: ASCORBIC ACID 500 MG TABLET GT SCH (08:54)
[2019-01-01] MEDS: ACETAMINOPHEN 650 MG/20 ML UDC- SA PATIENTS-PAIN ONLY GT SCH ×2 (08:54→20:11)
[2019-01-01] MEDS: ACIDOPHILUS/BULGARICUS 1 EACH TAB.CHEW GT SCH ×2 (08:54→17:42)
[2019-01-01] MEDS: LEVETIRACETAM SOL (5 ML) 100 MG/ML UDC GT SCH ×2 (08:54→20:10)
[2019-01-01] MEDS: FERROUS SULFATE - FOR SA ONLY 330 MG/7.5 ML UDC GT SCH (08:54)
[2019-01-01] MEDS: HYDROGEN PEROXIDE 480 ML BOTTLE TP SCH ×2 (09:00→21:00)
[2019-01-01] MEDS: CLOTRIMAZOLE 1% 15 GM TUBE TP SCH ×2 (09:40→20:15)
[2019-01-01] MEDS: Z GUARD REMEDY 2 OZ OINT TP SCH ×2 (09:40→20:15)
[2019-01-01] MEDS: ZINC OXIDE 30 GM TUBE TP SCH ×2 (09:40→20:15)
[2019-01-01] MEDS: THERAHONEY GEL 1.5 OZ TUBE TP SCH ×2 (09:40→20:15)
[2019-01-01 12:00] VITALS: BP 129/78
[2019-01-01 18:22] VITALS: BP 127/78
[2019-01-01 19:51] VITALS: BP 122/72
[2019-01-01] MEDS: ENOXAPARIN SODIUM 40 MG/0.4 ML DISP.SYRIN SQ SCH (20:15)
[2019-01-01] MEDS: ZINC OXIDE 56.7 GM TUBE TP SCH (20:15)
[2019-01-01] MEDS: ATORVASTATIN 10 MG TABLET GT SCH (21:50)
[2019-01-01] MEDS: INSULIN GLARGINE, 100 UNIT/ML CARTRIDGE SQ SCH (21:51)
[2019-01-02] MEDS: GLUCERNA 1.2 1,000 ML BOTTLE GT PRN ×2 (00:27→16:28)
[2019-01-02] MEDS: BLOOD SUGAR DIAGNOSTIC 1 EACH STRIP IN SCH ×5 (00:27→23:07)
[2019-01-02] MEDS: INSULIN ASPART/LISPRO 100 UNIT/ML CARTRIDGE SQ PRN ×5 (00:29→23:11)
[2019-01-02] MEDS: DILTIAZEM HCL 30 MG TABLET GT SCH ×5 (00:52→23:01)
[2019-01-02] MEDS: IPRATROPIUM NEB FS 0.5 MG/2.5 ML AMPUL.NEB NEB SCH ×4 (00:59→20:09)
[2019-01-02] MEDS: ALBUTEROL FS 2.5 MG/3 ML VIAL.NEB NEB SCH ×4 (00:59→20:09)
[2019-01-02 01:04] VITALS: BP 125/78
[2019-01-02 06:03] VITALS: BP 138/86
[2019-01-02 07:51] VITALS: BP 142/78
[2019-01-02] MEDS: FERROUS SULFATE - FOR SA ONLY 330 MG/7.5 ML UDC GT SCH (08:14)
[2019-01-02] MEDS: LEVETIRACETAM SOL (5 ML) 100 MG/ML UDC GT SCH ×2 (08:14→20:16)
[2019-01-02] MEDS: DOCUSATE SODIUM LIQ 100 MG/10 ML UDC GT SCH ×2 (08:14→17:06)
[2019-01-02] MEDS: ACIDOPHILUS/BULGARICUS 1 EACH TAB.CHEW GT SCH ×2 (08:14→17:06)
[2019-01-02] MEDS: MULTIVIT W/MINERALS 1 TAB TABLET GT SCH (08:15)
[2019-01-02] MEDS: OMEPRAZOLE 20 MG CAPSULE.DR GT SCH (08:15)
[2019-01-02] MEDS: ASCORBIC ACID 500 MG TABLET GT SCH (08:16)
[2019-01-02] MEDS: ZINC SULFATE 220 MG CAPSULE GT SCH (08:16)
[2019-01-02] MEDS: ACETAMINOPHEN 650 MG/20 ML UDC- SA PATIENTS-PAIN ONLY GT SCH ×2 (08:16→20:16)
[2019-01-02] MEDS: HYDROGEN PEROXIDE 480 ML BOTTLE TP SCH ×2 (08:18→20:14)
[2019-01-02] MEDS: THERAHONEY GEL 1.5 OZ TUBE TP SCH ×2 (09:16→20:15)
[2019-01-02] MEDS: Z GUARD REMEDY 2 OZ OINT TP SCH ×2 (09:16→20:15)
[2019-01-02] MEDS: CLOTRIMAZOLE 1% 15 GM TUBE TP SCH ×2 (09:16→20:15)
[2019-01-02] MEDS: ZINC OXIDE 56.7 GM TUBE TP SCH ×2 (09:16→20:15)
[2019-01-02] MEDS: ZINC OXIDE 30 GM TUBE TP SCH ×2 (09:16→20:15)
[2019-01-02 12:00] VITALS: BP 132/82
[2019-01-02 18:00] VITALS: BP 132/82
[2019-01-02 19:44] VITALS: BP 137/76
[2019-01-02] MEDS: ENOXAPARIN SODIUM 40 MG/0.4 ML DISP.SYRIN SQ SCH (20:14)
[2019-01-02] MEDS: ATORVASTATIN 10 MG TABLET GT SCH (21:48)
[2019-01-02] MEDS: INSULIN GLARGINE, 100 UNIT/ML CARTRIDGE SQ SCH (21:57)
[2019-01-03] VITALS: BP_SYST 160; BP_SYST 164; BP_DIAS 85
[2019-01-03] MEDS: IPRATROPIUM NEB FS 0.5 MG/2.5 ML AMPUL.NEB NEB SCH ×4 (01:41→20:03)
[2019-01-03] MEDS: ALBUTEROL FS 2.5 MG/3 ML VIAL.NEB NEB SCH ×5 (01:41→20:03)
--- NOTE | 2019-01-03 01:45 | NUR ---
SUB ACUTE RN NOTES RECEIVED PATIENT IN BED, HOB ELEVATED, TURNED AND REPOSITION FOR COMFORT, MONITORED FOR ANY CHANGES WITH GILLIAM DRAINING URINE. ON GTUBE ABLE TO FLUSH WITH NO RESIDUAL. SUCTION NEEDED WILL MONITOR.
[2019-01-03] MEDS: DILTIAZEM HCL 30 MG TABLET GT SCH ×3 (05:15→17:12)
[2019-01-03] MEDS: BLOOD SUGAR DIAGNOSTIC 1 EACH STRIP IN SCH ×3 (05:23→17:28)
[2019-01-03] MEDS: INSULIN ASPART/LISPRO 100 UNIT/ML CARTRIDGE SQ PRN ×2 (05:47→12:45)
[2019-01-03 06:00] VITALS: BP 157/90
[2019-01-03 08:01] VITALS: BP 156/97
[2019-01-03] MEDS: ACIDOPHILUS/BULGARICUS 1 EACH TAB.CHEW GT SCH ×2 (08:34→16:39)
[2019-01-03] MEDS: ASCORBIC ACID 500 MG TABLET GT SCH (08:34)
[2019-01-03] MEDS: ACETAMINOPHEN 650 MG/20 ML UDC- SA PATIENTS-PAIN ONLY GT SCH ×3 (08:34→21:21)
[2019-01-03] MEDS: DOCUSATE SODIUM LIQ 100 MG/10 ML UDC GT SCH ×2 (08:34→16:39)
[2019-01-03] MEDS: FERROUS SULFATE - FOR SA ONLY 330 MG/7.5 ML UDC GT SCH (08:34)
[2019-01-03] MEDS: LEVETIRACETAM SOL (5 ML) 100 MG/ML UDC GT SCH ×2 (08:34→21:21)
[2019-01-03] MEDS: ZINC SULFATE 220 MG CAPSULE GT SCH (08:34)
[2019-01-03] MEDS: OMEPRAZOLE 20 MG CAPSULE.DR GT SCH (08:34)
[2019-01-03] MEDS: MULTIVIT W/MINERALS 1 TAB TABLET GT SCH (08:34)
[2019-01-03] MEDS: HYDROGEN PEROXIDE 480 ML BOTTLE TP SCH ×2 (09:00→20:51)
[2019-01-03] MEDS: THERAHONEY GEL 1.5 OZ TUBE TP SCH ×2 (09:15→20:51)
[2019-01-03] MEDS: ZINC OXIDE 56.7 GM TUBE TP SCH ×2 (09:15→20:51)
[2019-01-03] MEDS: CLOTRIMAZOLE 1% 15 GM TUBE TP SCH ×2 (09:15→20:51)
[2019-01-03] MEDS: ZINC OXIDE 30 GM TUBE TP SCH ×2 (09:15→20:51)
[2019-01-03] MEDS: Z GUARD REMEDY 2 OZ OINT TP SCH ×2 (09:15→20:51)
[2019-01-03 12:00] VITALS: BP 159/77
[2019-01-03 18:07] VITALS: BP 146/74
[2019-01-03 19:50] VITALS: BP 119/76
[2019-01-03] MEDS: ATORVASTATIN 10 MG TABLET GT SCH (21:21)
[2019-01-03] MEDS: ENOXAPARIN SODIUM 40 MG/0.4 ML DISP.SYRIN SQ SCH (21:25)
[2019-01-03] MEDS: INSULIN GLARGINE, 100 UNIT/ML CARTRIDGE SQ SCH (21:35)
[2019-01-04] VITALS: BP 140/78
[2019-01-04] MEDS: DILTIAZEM HCL 30 MG TABLET GT SCH ×4 (00:03→17:42)
[2019-01-04] MEDS: BLOOD SUGAR DIAGNOSTIC 1 EACH STRIP IN SCH ×4 (00:16→17:42)
[2019-01-04] MEDS: ALBUTEROL FS 2.5 MG/3 ML VIAL.NEB NEB SCH ×5 (01:30→20:27)
[2019-01-04] MEDS: IPRATROPIUM NEB FS 0.5 MG/2.5 ML AMPUL.NEB NEB SCH ×4 (02:21→20:27)
[2019-01-04] MEDS: INSULIN ASPART/LISPRO 100 UNIT/ML CARTRIDGE SQ PRN ×3 (05:20→17:43)
[2019-01-04 06:00] VITALS: BP 147/83
[2019-01-04 07:50] VITALS: BP 142/92
[2019-01-04] MEDS: DOCUSATE SODIUM LIQ 100 MG/10 ML UDC GT SCH ×2 (08:47→17:42)
[2019-01-04] MEDS: ZINC SULFATE 220 MG CAPSULE GT SCH (08:47)
[2019-01-04] MEDS: OMEPRAZOLE 20 MG CAPSULE.DR GT SCH (08:47)
[2019-01-04] MEDS: MULTIVIT W/MINERALS 1 TAB TABLET GT SCH (08:47)
[2019-01-04] MEDS: FERROUS SULFATE - FOR SA ONLY 330 MG/7.5 ML UDC GT SCH (08:47)
[2019-01-04] MEDS: ACIDOPHILUS/BULGARICUS 1 EACH TAB.CHEW GT SCH ×2 (08:47→17:42)
[2019-01-04] MEDS: LEVETIRACETAM SOL (5 ML) 100 MG/ML UDC GT SCH ×2 (08:47→20:47)
[2019-01-04] MEDS: ASCORBIC ACID 500 MG TABLET GT SCH (08:47)
[2019-01-04] MEDS: ACETAMINOPHEN 650 MG/20 ML UDC- SA PATIENTS-PAIN ONLY GT SCH ×2 (08:48→20:49)
[2019-01-04] MEDS: HYDROGEN PEROXIDE 480 ML BOTTLE TP SCH ×2 (09:00→21:00)
[2019-01-04] MEDS: Z GUARD REMEDY 2 OZ OINT TP SCH ×2 (09:48→21:30)
[2019-01-04] MEDS: ZINC OXIDE 56.7 GM TUBE TP SCH ×2 (09:48→21:30)
[2019-01-04] MEDS: THERAHONEY GEL 1.5 OZ TUBE TP SCH ×2 (09:48→21:30)
[2019-01-04] MEDS: CLOTRIMAZOLE 1% 15 GM TUBE TP SCH ×2 (09:48→21:30)
[2019-01-04] MEDS: ZINC OXIDE 30 GM TUBE TP SCH ×2 (09:48→21:30)
[2019-01-04 12:00] VITALS: BP 131/87
[2019-01-04] MEDS: GLUCERNA 1.2 1,000 ML BOTTLE GT PRN (16:00)
--- NOTE | 2019-01-04 16:06 | NUR ---
PLAN OF CARE CONFERENCE was held today. Dr. Capone and interdisciplinary team discussed the current plan of care in detail. Family could not participate via phone conference. Patient remains stable. Current orders as well as treatments and medications were reviewed. See other discipline's IDT notes for further details.
--- NOTE | 2019-01-04 18:06 | NUR ---
During IDT, order received from Dr. Capone to discontinue F/C and observe protocol. Resident's L buttocks wound is improving. Left a message to resident's daughter Kelly regarding new order.
[2019-01-04 18:17] VITALS: BP 154/80
[2019-01-04 20:21] VITALS: BP 130/78
[2019-01-04] MEDS: ENOXAPARIN SODIUM 40 MG/0.4 ML DISP.SYRIN SQ SCH (20:49)
[2019-01-04] MEDS: ATORVASTATIN 10 MG TABLET GT SCH (21:30)
[2019-01-04] MEDS: INSULIN GLARGINE, 100 UNIT/ML CARTRIDGE SQ SCH (22:50)
[2019-01-05] MEDS: DILTIAZEM HCL 30 MG TABLET GT SCH ×5 (00:07→23:52)
[2019-01-05] MEDS: BLOOD SUGAR DIAGNOSTIC 1 EACH STRIP IN SCH ×5 (00:07→23:52)
[2019-01-05] MEDS: INSULIN ASPART/LISPRO 100 UNIT/ML CARTRIDGE SQ PRN ×5 (00:09→23:53)
[2019-01-05 00:10] VITALS: BP 155/88
[2019-01-05] MEDS: ALBUTEROL FS 2.5 MG/3 ML VIAL.NEB NEB SCH ×4 (01:39→20:21)
[2019-01-05] MEDS: IPRATROPIUM NEB FS 0.5 MG/2.5 ML AMPUL.NEB NEB SCH ×4 (01:39→20:21)
[2019-01-05] MEDS: GLUCERNA 1.2 1,000 ML BOTTLE GT PRN (05:27)
[2019-01-05 06:17] VITALS: BP 144/79
[2019-01-05 08:02] VITALS: BP 134/74
[2019-01-05] MEDS: MULTIVIT W/MINERALS 1 TAB TABLET GT SCH (08:22)
[2019-01-05] MEDS: ACIDOPHILUS/BULGARICUS 1 EACH TAB.CHEW GT SCH ×2 (08:22→17:12)
[2019-01-05] MEDS: DOCUSATE SODIUM LIQ 100 MG/10 ML UDC GT SCH ×2 (08:22→17:12)
[2019-01-05] MEDS: OMEPRAZOLE 20 MG CAPSULE.DR GT SCH (08:22)
[2019-01-05] MEDS: LEVETIRACETAM SOL (5 ML) 100 MG/ML UDC GT SCH ×2 (08:22→21:19)
[2019-01-05] MEDS: FERROUS SULFATE - FOR SA ONLY 330 MG/7.5 ML UDC GT SCH (08:22)
[2019-01-05] MEDS: ASCORBIC ACID 500 MG TABLET GT SCH (08:23)
[2019-01-05] MEDS: ZINC SULFATE 220 MG CAPSULE GT SCH (08:23)
[2019-01-05] MEDS: ACETAMINOPHEN 650 MG/20 ML UDC- SA PATIENTS-PAIN ONLY GT SCH ×2 (08:23→21:19)
[2019-01-05] MEDS: ZINC OXIDE 56.7 GM TUBE TP SCH ×2 (09:00→21:21)
[2019-01-05] MEDS: Z GUARD REMEDY 2 OZ OINT TP SCH ×2 (09:00→21:21)
[2019-01-05] MEDS: ZINC OXIDE 30 GM TUBE TP SCH ×2 (09:00→21:21)
[2019-01-05] MEDS: HYDROGEN PEROXIDE 480 ML BOTTLE TP SCH ×2 (09:00→21:21)
[2019-01-05] MEDS: THERAHONEY GEL 1.5 OZ TUBE TP SCH ×2 (09:00→21:21)
[2019-01-05] MEDS: CLOTRIMAZOLE 1% CREAM 24 GM TUBE TP SCH ×2 (09:00→21:21)
[2019-01-05 12:00] VITALS: BP 152/89
[2019-01-05 18:23] VITALS: BP 130/74
[2019-01-05] MEDS: ENOXAPARIN SODIUM 40 MG/0.4 ML DISP.SYRIN SQ SCH (21:20)
[2019-01-05] MEDS: ATORVASTATIN 10 MG TABLET GT SCH (21:21)
[2019-01-05] MEDS: INSULIN GLARGINE, 100 UNIT/ML CARTRIDGE SQ SCH (21:22)
[2019-01-06] VITALS: BP 153/69
[2019-01-06] MEDS: GLUCERNA 1.2 1,000 ML BOTTLE GT PRN (01:00)
[2019-01-06] MEDS: IPRATROPIUM NEB FS 0.5 MG/2.5 ML AMPUL.NEB NEB SCH ×4 (02:06→19:47)
[2019-01-06] MEDS: ALBUTEROL FS 2.5 MG/3 ML VIAL.NEB NEB SCH ×4 (02:06→19:47)
[2019-01-06] MEDS: BLOOD SUGAR DIAGNOSTIC 1 EACH STRIP IN SCH ×3 (05:59→17:26)
[2019-01-06] MEDS: DILTIAZEM HCL 30 MG TABLET GT SCH ×3 (05:59→17:26)
[2019-01-06] MEDS: INSULIN ASPART/LISPRO 100 UNIT/ML CARTRIDGE SQ PRN ×3 (05:59→17:26)
[2019-01-06 06:00] VITALS: BP 139/76
[2019-01-06 08:04] VITALS: BP 125/75
[2019-01-06] MEDS: LEVETIRACETAM SOL (5 ML) 100 MG/ML UDC GT SCH ×2 (08:30→20:15)
[2019-01-06] MEDS: OMEPRAZOLE 20 MG CAPSULE.DR GT SCH (08:30)
[2019-01-06] MEDS: DOCUSATE SODIUM LIQ 100 MG/10 ML UDC GT SCH ×2 (08:30→17:25)
[2019-01-06] MEDS: FERROUS SULFATE - FOR SA ONLY 330 MG/7.5 ML UDC GT SCH (08:30)
[2019-01-06] MEDS: ACIDOPHILUS/BULGARICUS 1 EACH TAB.CHEW GT SCH ×2 (08:30→17:25)
[2019-01-06] MEDS: MULTIVIT W/MINERALS 1 TAB TABLET GT SCH (08:30)
[2019-01-06] MEDS: ZINC SULFATE 220 MG CAPSULE GT SCH (08:31)
[2019-01-06] MEDS: ASCORBIC ACID 500 MG TABLET GT SCH (08:31)
[2019-01-06] MEDS: ACETAMINOPHEN 650 MG/20 ML UDC- SA PATIENTS-PAIN ONLY GT SCH ×2 (08:31→20:16)
[2019-01-06] MEDS: HYDROGEN PEROXIDE 480 ML BOTTLE TP SCH ×2 (09:47→21:30)
[2019-01-06] MEDS: CLOTRIMAZOLE 1% CREAM 24 GM TUBE TP SCH ×2 (09:58→20:18)
[2019-01-06] MEDS: ZINC OXIDE 56.7 GM TUBE TP SCH ×2 (09:58→20:18)
[2019-01-06] MEDS: THERAHONEY GEL 1.5 OZ TUBE TP SCH ×2 (09:58→20:18)
[2019-01-06] MEDS: ZINC OXIDE 30 GM TUBE TP SCH ×2 (09:58→20:18)
[2019-01-06] MEDS: Z GUARD REMEDY 2 OZ OINT TP SCH ×2 (09:58→20:18)
[2019-01-06 12:00] VITALS: BP 124/70
[2019-01-06 18:41] VITALS: BP 151/75
[2019-01-06 19:45] VITALS: BP 126/73
[2019-01-06] MEDS: ENOXAPARIN SODIUM 40 MG/0.4 ML DISP.SYRIN SQ SCH (20:17)
[2019-01-06] MEDS: ATORVASTATIN 10 MG TABLET GT SCH (21:24)
[2019-01-06] MEDS: INSULIN GLARGINE, 100 UNIT/ML CARTRIDGE SQ SCH (21:25)
[2019-01-07] MEDS: DILTIAZEM HCL 30 MG TABLET GT SCH ×4 (00:15→17:48)
[2019-01-07] MEDS: BLOOD SUGAR DIAGNOSTIC 1 EACH STRIP IN SCH ×4 (00:16→17:48)
[2019-01-07] MEDS: INSULIN ASPART/LISPRO 100 UNIT/ML CARTRIDGE SQ PRN ×4 (00:21→17:49)
[2019-01-07] MEDS: IPRATROPIUM NEB FS 0.5 MG/2.5 ML AMPUL.NEB NEB SCH ×4 (00:41→19:22)
[2019-01-07] MEDS: ALBUTEROL FS 2.5 MG/3 ML VIAL.NEB NEB SCH ×4 (00:41→19:22)
[2019-01-07 00:43] VITALS: BP 140/78
[2019-01-07] MEDS: GLUCERNA 1.2 1,000 ML BOTTLE GT PRN (05:14)
[2019-01-07 06:10] VITALS: BP 149/83
[2019-01-07 07:25] VITALS: BP 129/75
[2019-01-07] MEDS: MULTIVIT W/MINERALS 1 TAB TABLET GT SCH (08:32)
[2019-01-07] MEDS: ACIDOPHILUS/BULGARICUS 1 EACH TAB.CHEW GT SCH ×2 (08:32→17:48)
[2019-01-07] MEDS: FERROUS SULFATE - FOR SA ONLY 330 MG/7.5 ML UDC GT SCH (08:32)
[2019-01-07] MEDS: LEVETIRACETAM SOL (5 ML) 100 MG/ML UDC GT SCH ×2 (08:32→20:39)
[2019-01-07] MEDS: OMEPRAZOLE 20 MG CAPSULE.DR GT SCH (08:32)
[2019-01-07] MEDS: DOCUSATE SODIUM LIQ 100 MG/10 ML UDC GT SCH ×2 (08:32→17:48)
[2019-01-07] MEDS: ZINC SULFATE 220 MG CAPSULE GT SCH (08:33)
[2019-01-07] MEDS: ACETAMINOPHEN 650 MG/20 ML UDC- SA PATIENTS-PAIN ONLY GT SCH ×2 (08:33→20:40)
[2019-01-07] MEDS: ASCORBIC ACID 500 MG TABLET GT SCH (08:33)
[2019-01-07] MEDS: HYDROGEN PEROXIDE 480 ML BOTTLE TP SCH ×2 (08:47→21:00)
[2019-01-07] MEDS: ZINC OXIDE 56.7 GM TUBE TP SCH ×2 (09:41→20:42)
[2019-01-07] MEDS: ZINC OXIDE 30 GM TUBE TP SCH ×2 (09:41→20:42)
[2019-01-07] MEDS: THERAHONEY GEL 1.5 OZ TUBE TP SCH ×2 (09:41→20:42)
[2019-01-07] MEDS: Z GUARD REMEDY 2 OZ OINT TP SCH ×2 (09:41→20:42)
[2019-01-07] MEDS: CLOTRIMAZOLE 1% CREAM 24 GM TUBE TP SCH ×2 (09:41→20:42)
[2019-01-07 11:04] LABS: CALCIUM, SERUM 9.4 mg/dL (8.5-10.1); CREATININE 0.9 mg/dL (0.6-1.3); MAGNESIUM 2.4 mg/dL (1.8-2.4)
[2019-01-07 11:05] LABS: POTASSIUM 5.7 mmol/L (3.5-5.1)
[2019-01-07 12:00] VITALS: BP 156/80
[2019-01-07 13:55] LABS: BASOPHILS # (AUTO) 0.1 /CMM (0.0-0.2); BASOPHILS % (AUTO) 1.3 % (0.0-2.0); EOSINOPHILS % (AUTO) 3.7 % (0.0-6.0); HEMATOCRIT 32 % (33-45); HEMOGLOBIN 10.2 g/dL (11.5-14.8); LYMPHOCYTES # (AUTO) 2.1 /CMM (0.8-4.8); MEAN CORPUSCULAR HGB CONC 32 g/dl (31.0-36.0); MEAN CORPUSCULAR VOLUME 87 fL (82-100); MONOCYTES # (AUTO) 0.4 /CMM (0.1-1.30); MONOCYTES % (AUTO) 7.2 % (2.0-12.0); NEUTROPHILS # (AUTO) 3.3 /CMM (1.8-8.9); NEUTROPHILS % (AUTO) 53.8 % (43.0-81.0); PLATELET COUNT (AUTO) 346 /CMM (150-450); RED BLOOD CELL COUNT(AUTO) 3.63 MIL/uL (4.0-5.2); WHITE BLOOD COUNT (AUTO) 6.1 K/uL (4.3-11.0)
[2019-01-07 15:20] LABS: EOSINOPHILS % (MANUAL) 4 % (0-4); LYMPHOCYTES % (MANUAL) 35 % (16-48); MONOCYTES % (MANUAL) 6 % (0-11.0); NEUTROPHILS % (MANUAL) 55 (42-76)
[2019-01-07 18:30] VITALS: BP 130/83
[2019-01-07 20:28] VITALS: BP 155/93
[2019-01-07] MEDS: ENOXAPARIN SODIUM 40 MG/0.4 ML DISP.SYRIN SQ SCH (20:41)
[2019-01-07] MEDS: ATORVASTATIN 10 MG TABLET GT SCH (21:27)
[2019-01-07] MEDS: INSULIN GLARGINE, 100 UNIT/ML CARTRIDGE SQ SCH (21:35)
[2019-01-08] MEDS: GLUCERNA 1.2 1,000 ML BOTTLE GT PRN (00:25)
[2019-01-08] MEDS: DILTIAZEM HCL 30 MG TABLET GT SCH ×4 (00:26→17:59)
[2019-01-08] MEDS: BLOOD SUGAR DIAGNOSTIC 1 EACH STRIP IN SCH ×4 (00:28→17:59)
[2019-01-08] MEDS: INSULIN ASPART/LISPRO 100 UNIT/ML CARTRIDGE SQ PRN ×4 (00:31→18:04)
[2019-01-08 01:11] VITALS: BP 122/75
[2019-01-08] MEDS: ALBUTEROL FS 2.5 MG/3 ML VIAL.NEB NEB SCH ×4 (01:43→19:20)
[2019-01-08] MEDS: IPRATROPIUM NEB FS 0.5 MG/2.5 ML AMPUL.NEB NEB SCH ×4 (01:43→19:20)
[2019-01-08 06:05] VITALS: BP 151/90
[2019-01-08 07:38] VITALS: BP 133/77
[2019-01-08] MEDS: HYDROGEN PEROXIDE 480 ML BOTTLE TP SCH ×2 (07:59→21:00)
[2019-01-08] MEDS: DOCUSATE SODIUM LIQ 100 MG/10 ML UDC GT SCH ×2 (08:32→17:58)
[2019-01-08] MEDS: FERROUS SULFATE - FOR SA ONLY 330 MG/7.5 ML UDC GT SCH (08:33)
[2019-01-08] MEDS: MULTIVIT W/MINERALS 1 TAB TABLET GT SCH (08:33)
[2019-01-08] MEDS: LEVETIRACETAM SOL (5 ML) 100 MG/ML UDC GT SCH ×2 (08:33→20:32)
[2019-01-08] MEDS: OMEPRAZOLE 20 MG CAPSULE.DR GT SCH (08:33)
[2019-01-08] MEDS: ACIDOPHILUS/BULGARICUS 1 EACH TAB.CHEW GT SCH ×2 (08:33→17:58)
[2019-01-08] MEDS: ACETAMINOPHEN 650 MG/20 ML UDC- SA PATIENTS-PAIN ONLY GT SCH ×2 (08:33→20:33)
[2019-01-08] MEDS: ZINC SULFATE 220 MG CAPSULE GT SCH (08:33)
[2019-01-08] MEDS: ASCORBIC ACID 500 MG TABLET GT SCH (08:33)
[2019-01-08] MEDS: CLOTRIMAZOLE 1% CREAM 24 GM TUBE TP SCH ×2 (09:30→20:34)
[2019-01-08] MEDS: Z GUARD REMEDY 2 OZ OINT TP SCH ×2 (09:30→20:34)
[2019-01-08] MEDS: ZINC OXIDE 30 GM TUBE TP SCH ×2 (09:30→20:34)
[2019-01-08] MEDS: THERAHONEY GEL 1.5 OZ TUBE TP SCH ×2 (09:30→20:34)
[2019-01-08] MEDS: ZINC OXIDE 56.7 GM TUBE TP SCH (09:30)
[2019-01-08 12:00] VITALS: BP 141/88
--- NOTE | 2019-01-08 18:13 | NUR ---
Late entry for 01/07/19 Seen by MILLY Bender. Relayed lab results to her.
--- NOTE | 2019-01-08 18:17 | NUR ---
Pt's midline not being used anymore. Received order to DC midline. Pt tolerated procedure well, no bleeding noted, catheter tip intact. Notified daughter.
[2019-01-08 18:37] VITALS: BP 126/76
[2019-01-08 20:15] VITALS: BP 111/79
[2019-01-08] MEDS: ENOXAPARIN SODIUM 40 MG/0.4 ML DISP.SYRIN SQ SCH (20:32)
[2019-01-08] MEDS: ATORVASTATIN 10 MG TABLET GT SCH (21:26)
[2019-01-08] MEDS: INSULIN GLARGINE, 100 UNIT/ML CARTRIDGE SQ SCH (21:27)
[2019-01-09] MEDS: BLOOD SUGAR DIAGNOSTIC 1 EACH STRIP IN SCH ×5 (00:13→23:31)
[2019-01-09] MEDS: DILTIAZEM HCL 30 MG TABLET GT SCH ×5 (00:13→23:31)
[2019-01-09] MEDS: INSULIN ASPART/LISPRO 100 UNIT/ML CARTRIDGE SQ PRN ×5 (00:14→23:33)
[2019-01-09 00:24] VITALS: BP 132/90
[2019-01-09] MEDS: IPRATROPIUM NEB FS 0.5 MG/2.5 ML AMPUL.NEB NEB SCH ×4 (01:16→19:57)
[2019-01-09] MEDS: ALBUTEROL FS 2.5 MG/3 ML VIAL.NEB NEB SCH ×4 (01:16→19:58)
[2019-01-09 06:01] VITALS: BP 154/95
[2019-01-09] MEDS: GLUCERNA 1.2 1,000 ML BOTTLE GT PRN (06:15)
[2019-01-09 07:47] VITALS: BP 145/63
[2019-01-09] MEDS: HYDROGEN PEROXIDE 480 ML BOTTLE TP SCH ×2 (08:12→21:00)
--- NOTE | 2019-01-09 08:27 | NUR ---
RT RECEIVED PT TRACH'D ON CA WITH SETTINGS PER MD ORDER. SPARE TRACH AND AMBU BAG AT BEDSIDE. TRACH CARE DONE. TRACH SECURED AND AIRWAY PATENT. BREATHING TX GIVEN ORDERED. NO ADVERSE REACTIONS OBSERVED. SUCTIONED SMALL AMOUNTS OF THICK, YELLOW SECRETIONS. NO SOB NOTED AT THIS TIME. WILL CONTINUE TO MONITOR FOR ANY CHANGES. Addendum: 01/09/19 at 1718 by LISA CRAIN RT Amended: Links added.
[2019-01-09] MEDS: DOCUSATE SODIUM LIQ 100 MG/10 ML UDC GT SCH ×2 (08:38→17:37)
[2019-01-09] MEDS: OMEPRAZOLE 20 MG CAPSULE.DR GT SCH (08:38)
[2019-01-09] MEDS: ACIDOPHILUS/BULGARICUS 1 EACH TAB.CHEW GT SCH ×2 (08:38→17:37)
[2019-01-09] MEDS: MULTIVIT W/MINERALS 1 TAB TABLET GT SCH (08:38)
[2019-01-09] MEDS: LEVETIRACETAM SOL (5 ML) 100 MG/ML UDC GT SCH ×2 (08:38→21:05)
[2019-01-09] MEDS: FERROUS SULFATE - FOR SA ONLY 330 MG/7.5 ML UDC GT SCH (08:38)
[2019-01-09] MEDS: ZINC SULFATE 220 MG CAPSULE GT SCH (08:39)
[2019-01-09] MEDS: ACETAMINOPHEN 650 MG/20 ML UDC- SA PATIENTS-PAIN ONLY GT SCH ×2 (08:39→21:05)
[2019-01-09] MEDS: ASCORBIC ACID 500 MG TABLET GT SCH (08:39)
[2019-01-09] MEDS: THERAHONEY GEL 1.5 OZ TUBE TP SCH ×2 (09:15→21:06)
[2019-01-09] MEDS: CLOTRIMAZOLE 1% CREAM 24 GM TUBE TP SCH ×2 (09:15→21:06)
[2019-01-09] MEDS: Z GUARD REMEDY 2 OZ OINT TP SCH ×2 (09:15→21:07)
[2019-01-09] MEDS: ZINC OXIDE 30 GM TUBE TP SCH ×2 (09:15→21:07)
[2019-01-09 12:00] VITALS: BP 156/95
[2019-01-09 18:18] VITALS: BP 159/88
--- NOTE | 2019-01-09 20:13 | NUR ---
RT NOTES PT RECEIVED TRACHED ON COOL AEROSOL ON FIO2 28%. NO SIGNS OF RESP DISTRESS/SOB NOTED. PT SUCTIONED. HHN TX GIVEN. AMBUBAG AND SPARE TRACH AT HEAD OF BED. WILL CONT TO MONITOR. Addendum: 01/10/19 at 0058 by ERICK HATCH RT Amended: Links added.
[2019-01-09 20:31] VITALS: BP 121/68
[2019-01-09] MEDS: ENOXAPARIN SODIUM 40 MG/0.4 ML DISP.SYRIN SQ SCH (21:06)
[2019-01-09] MEDS: ATORVASTATIN 10 MG TABLET GT SCH (21:07)
[2019-01-09] MEDS: INSULIN GLARGINE, 100 UNIT/ML CARTRIDGE SQ SCH (21:33)
[2019-01-10] VITALS (7 sets, daily range): BP systolic 123–153; BP diastolic 77–89
[2019-01-10] MEDS: GLUCERNA 1.2 1,000 ML BOTTLE GT PRN ×2 (00:30→17:38)
[2019-01-10] MEDS: ALBUTEROL FS 2.5 MG/3 ML VIAL.NEB NEB SCH ×4 (01:35→20:17)
[2019-01-10] MEDS: IPRATROPIUM NEB FS 0.5 MG/2.5 ML AMPUL.NEB NEB SCH ×4 (01:35→20:17)
[2019-01-10] MEDS: DILTIAZEM HCL 30 MG TABLET GT SCH ×3 (05:29→17:38)
[2019-01-10] MEDS: BLOOD SUGAR DIAGNOSTIC 1 EACH STRIP IN SCH ×4 (05:29→23:58)
[2019-01-10] MEDS: INSULIN ASPART/LISPRO 100 UNIT/ML CARTRIDGE SQ PRN ×4 (05:29→23:57)
[2019-01-10] MEDS: HYDROGEN PEROXIDE 480 ML BOTTLE TP SCH ×2 (08:13→21:52)
[2019-01-10] MEDS: FERROUS SULFATE - FOR SA ONLY 330 MG/7.5 ML UDC GT SCH (08:27)
[2019-01-10] MEDS: MULTIVIT W/MINERALS 1 TAB TABLET GT SCH (08:27)
[2019-01-10] MEDS: LEVETIRACETAM SOL (5 ML) 100 MG/ML UDC GT SCH ×2 (08:27→20:10)
[2019-01-10] MEDS: OMEPRAZOLE 20 MG CAPSULE.DR GT SCH (08:27)
[2019-01-10] MEDS: ACIDOPHILUS/BULGARICUS 1 EACH TAB.CHEW GT SCH ×2 (08:27→17:19)
[2019-01-10] MEDS: DOCUSATE SODIUM LIQ 100 MG/10 ML UDC GT SCH ×2 (08:27→17:19)
[2019-01-10] MEDS: ACETAMINOPHEN 650 MG/20 ML UDC- SA PATIENTS-PAIN ONLY GT SCH ×2 (08:28→20:10)
[2019-01-10] MEDS: ASCORBIC ACID 500 MG TABLET GT SCH (08:28)
[2019-01-10] MEDS: ZINC SULFATE 220 MG CAPSULE GT SCH (08:28)
[2019-01-10] MEDS: THERAHONEY GEL 1.5 OZ TUBE TP SCH ×2 (09:10→21:52)
[2019-01-10] MEDS: CLOTRIMAZOLE 1% CREAM 24 GM TUBE TP SCH ×2 (09:10→21:52)
[2019-01-10] MEDS: ZINC OXIDE 30 GM TUBE TP SCH ×2 (09:10→21:52)
[2019-01-10] MEDS: Z GUARD REMEDY 2 OZ OINT TP SCH ×2 (09:10→21:52)
[2019-01-10] MEDS: ENOXAPARIN SODIUM 40 MG/0.4 ML DISP.SYRIN SQ SCH (20:12)
[2019-01-10] MEDS: ATORVASTATIN 10 MG TABLET GT SCH (21:53)
[2019-01-10] MEDS: INSULIN GLARGINE, 100 UNIT/ML CARTRIDGE SQ SCH (22:05)
[2019-01-11] VITALS (7 sets, daily range): BP systolic 139–163; BP diastolic 74–94
[2019-01-11] MEDS: hydrALAZINE HCL 10 MG TABLET GT PRN (01:14)
[2019-01-11] MEDS: ALBUTEROL FS 2.5 MG/3 ML VIAL.NEB NEB SCH ×4 (02:00→19:28)
[2019-01-11] MEDS: IPRATROPIUM NEB FS 0.5 MG/2.5 ML AMPUL.NEB NEB SCH ×4 (02:00→19:28)
[2019-01-11] MEDS: DILTIAZEM HCL 30 MG TABLET GT SCH ×4 (06:19→17:05)
[2019-01-11] MEDS: BLOOD SUGAR DIAGNOSTIC 1 EACH STRIP IN SCH ×3 (06:28→17:06)
[2019-01-11] MEDS: INSULIN ASPART/LISPRO 100 UNIT/ML CARTRIDGE SQ PRN ×3 (06:30→17:12)
[2019-01-11] MEDS: HYDROGEN PEROXIDE 480 ML BOTTLE TP SCH ×2 (09:00→21:57)
[2019-01-11] MEDS: FERROUS SULFATE - FOR SA ONLY 330 MG/7.5 ML UDC GT SCH (09:02)
[2019-01-11] MEDS: DOCUSATE SODIUM LIQ 100 MG/10 ML UDC GT SCH ×2 (09:02→17:05)
[2019-01-11] MEDS: ACIDOPHILUS/BULGARICUS 1 EACH TAB.CHEW GT SCH ×2 (09:02→17:05)
[2019-01-11] MEDS: LEVETIRACETAM SOL (5 ML) 100 MG/ML UDC GT SCH ×2 (09:02→21:02)
[2019-01-11] MEDS: OMEPRAZOLE 20 MG CAPSULE.DR GT SCH (09:03)
[2019-01-11] MEDS: ZINC SULFATE 220 MG CAPSULE GT SCH (09:03)
[2019-01-11] MEDS: ASCORBIC ACID 500 MG TABLET GT SCH (09:03)
[2019-01-11] MEDS: MULTIVIT W/MINERALS 1 TAB TABLET GT SCH (09:03)
[2019-01-11] MEDS: ACETAMINOPHEN 650 MG/20 ML UDC- SA PATIENTS-PAIN ONLY GT SCH ×2 (09:04→21:02)
[2019-01-11] MEDS: ZINC OXIDE 30 GM TUBE TP SCH ×2 (09:56→21:03)
[2019-01-11] MEDS: CLOTRIMAZOLE 1% CREAM 24 GM TUBE TP SCH ×2 (09:56→21:03)
[2019-01-11] MEDS: THERAHONEY GEL 1.5 OZ TUBE TP SCH ×2 (09:56→21:03)
[2019-01-11] MEDS: Z GUARD REMEDY 2 OZ OINT TP SCH ×2 (09:56→21:03)
[2019-01-11] MEDS: ATORVASTATIN 10 MG TABLET GT SCH (21:03)
[2019-01-11] MEDS: ENOXAPARIN SODIUM 40 MG/0.4 ML DISP.SYRIN SQ SCH (21:03)
[2019-01-11] MEDS: INSULIN GLARGINE, 100 UNIT/ML CARTRIDGE SQ SCH (21:06)
[2019-01-12] MEDS: DILTIAZEM HCL 30 MG TABLET GT SCH ×4 (00:02→17:18)
[2019-01-12] MEDS: BLOOD SUGAR DIAGNOSTIC 1 EACH STRIP IN SCH ×4 (00:02→17:18)
[2019-01-12] MEDS: GLUCERNA 1.2 1,000 ML BOTTLE GT PRN ×2 (00:02→17:22)
[2019-01-12] MEDS: INSULIN ASPART/LISPRO 100 UNIT/ML CARTRIDGE SQ PRN ×3 (00:04→12:57)
[2019-01-12 00:30] VITALS: BP 150/87
[2019-01-12] MEDS: IPRATROPIUM NEB FS 0.5 MG/2.5 ML AMPUL.NEB NEB SCH ×4 (00:47→19:06)
[2019-01-12] MEDS: ALBUTEROL FS 2.5 MG/3 ML VIAL.NEB NEB SCH ×4 (00:47→19:06)
[2019-01-12 06:04] VITALS: BP 136/80
[2019-01-12] MEDS: HYDROGEN PEROXIDE 480 ML BOTTLE TP SCH ×2 (09:00→21:00)
[2019-01-12] MEDS: ASCORBIC ACID 500 MG TABLET GT SCH (09:46)
[2019-01-12] MEDS: OMEPRAZOLE 20 MG CAPSULE.DR GT SCH (09:46)
[2019-01-12] MEDS: ACETAMINOPHEN 650 MG/20 ML UDC- SA PATIENTS-PAIN ONLY GT SCH ×2 (09:46→21:10)
[2019-01-12] MEDS: DOCUSATE SODIUM LIQ 100 MG/10 ML UDC GT SCH ×2 (09:46→17:18)
[2019-01-12] MEDS: LEVETIRACETAM SOL (5 ML) 100 MG/ML UDC GT SCH ×2 (09:46→21:10)
[2019-01-12] MEDS: ACIDOPHILUS/BULGARICUS 1 EACH TAB.CHEW GT SCH ×2 (09:46→17:18)
[2019-01-12] MEDS: MULTIVIT W/MINERALS 1 TAB TABLET GT SCH (09:46)
[2019-01-12] MEDS: FERROUS SULFATE - FOR SA ONLY 330 MG/7.5 ML UDC GT SCH (09:46)
[2019-01-12] MEDS: ZINC SULFATE 220 MG CAPSULE GT SCH (09:46)
[2019-01-12 10:17] VITALS: BP 139/81
[2019-01-12] MEDS: CLOTRIMAZOLE 1% CREAM 24 GM TUBE TP SCH ×2 (10:20→21:11)
[2019-01-12] MEDS: THERAHONEY GEL 1.5 OZ TUBE TP SCH ×2 (10:20→21:11)
[2019-01-12] MEDS: ZINC OXIDE 30 GM TUBE TP SCH ×2 (10:20→21:11)
[2019-01-12] MEDS: Z GUARD REMEDY 2 OZ OINT TP SCH ×2 (10:20→21:11)
[2019-01-12 12:00] VITALS: BP 140/73
[2019-01-12 18:19] VITALS: BP 136/64
[2019-01-12 19:49] VITALS: BP 146/74
[2019-01-12] MEDS: ATORVASTATIN 10 MG TABLET GT SCH (21:11)
[2019-01-12] MEDS: ENOXAPARIN SODIUM 40 MG/0.4 ML DISP.SYRIN SQ SCH (21:11)
[2019-01-12] MEDS: INSULIN GLARGINE, 100 UNIT/ML CARTRIDGE SQ SCH (21:17)
[2019-01-13] MEDS: BLOOD SUGAR DIAGNOSTIC 1 EACH STRIP IN SCH ×4 (00:16→17:51)
[2019-01-13] MEDS: DILTIAZEM HCL 30 MG TABLET GT SCH ×4 (00:16→17:51)
[2019-01-13] MEDS: INSULIN ASPART/LISPRO 100 UNIT/ML CARTRIDGE SQ PRN ×4 (00:17→17:53)
[2019-01-13 00:26] VITALS: BP 146/69
[2019-01-13] MEDS: ALBUTEROL FS 2.5 MG/3 ML VIAL.NEB NEB SCH ×4 (00:54→19:45)
[2019-01-13] MEDS: IPRATROPIUM NEB FS 0.5 MG/2.5 ML AMPUL.NEB NEB SCH ×4 (00:54→19:45)
[2019-01-13 06:12] VITALS: BP 139/79
[2019-01-13 07:51] VITALS: BP 159/86
[2019-01-13] MEDS: DOCUSATE SODIUM LIQ 100 MG/10 ML UDC GT SCH ×2 (08:28→16:31)
[2019-01-13] MEDS: FERROUS SULFATE - FOR SA ONLY 330 MG/7.5 ML UDC GT SCH (08:29)
[2019-01-13] MEDS: LEVETIRACETAM SOL (5 ML) 100 MG/ML UDC GT SCH ×2 (08:29→21:26)
[2019-01-13] MEDS: ACIDOPHILUS/BULGARICUS 1 EACH TAB.CHEW GT SCH ×2 (08:29→16:31)
[2019-01-13] MEDS: OMEPRAZOLE 20 MG CAPSULE.DR GT SCH (08:30)
[2019-01-13] MEDS: ACETAMINOPHEN 650 MG/20 ML UDC- SA PATIENTS-PAIN ONLY GT SCH ×2 (08:30→21:26)
[2019-01-13] MEDS: ASCORBIC ACID 500 MG TABLET GT SCH (08:31)
[2019-01-13] MEDS: ZINC SULFATE 220 MG CAPSULE GT SCH (08:32)
[2019-01-13] MEDS: MULTIVIT W/MINERALS 1 TAB TABLET GT SCH (08:38)
[2019-01-13] MEDS: Z GUARD REMEDY 2 OZ OINT TP SCH ×2 (09:00→21:26)
[2019-01-13] MEDS: CLOTRIMAZOLE 1% CREAM 24 GM TUBE TP SCH ×2 (09:00→21:26)
[2019-01-13] MEDS: ZINC OXIDE 30 GM TUBE TP SCH ×2 (09:00→21:27)
[2019-01-13] MEDS: THERAHONEY GEL 1.5 OZ TUBE TP SCH ×2 (09:00→21:27)
[2019-01-13] MEDS: HYDROGEN PEROXIDE 480 ML BOTTLE TP SCH ×2 (09:15→21:10)
[2019-01-13 12:00] VITALS: BP 147/79
[2019-01-13] MEDS: GLUCERNA 1.2 1,000 ML BOTTLE GT PRN (16:07)
[2019-01-13 18:00] VITALS: BP 130/80
[2019-01-13 19:51] VITALS: BP 127/70
[2019-01-13] MEDS: ENOXAPARIN SODIUM 40 MG/0.4 ML DISP.SYRIN SQ SCH (21:26)
[2019-01-13] MEDS: INSULIN GLARGINE, 100 UNIT/ML CARTRIDGE SQ SCH (21:27)
[2019-01-13] MEDS: ATORVASTATIN 10 MG TABLET GT SCH (21:27)
[2019-01-14] VITALS: BP 134/54
[2019-01-14] MEDS: BLOOD SUGAR DIAGNOSTIC 1 EACH STRIP IN SCH ×5 (00:06→23:53)
[2019-01-14] MEDS: DILTIAZEM HCL 30 MG TABLET GT SCH ×5 (00:06→23:53)
[2019-01-14] MEDS: INSULIN ASPART/LISPRO 100 UNIT/ML CARTRIDGE SQ PRN ×5 (00:09→23:54)
[2019-01-14] MEDS: ALBUTEROL FS 2.5 MG/3 ML VIAL.NEB NEB SCH ×4 (01:52→19:43)
[2019-01-14] MEDS: IPRATROPIUM NEB FS 0.5 MG/2.5 ML AMPUL.NEB NEB SCH ×4 (01:52→19:43)
--- NOTE | 2019-01-14 04:06 | NUR ---
RT PATIENT WAS RECEIVED ON 28% COOL AEROSOL . AIRWAY PATENT AND SECURED. PATIENT STABLE THROUGHOUT THE SHIFT. WILL CONTINUE TO MONITOR. Addendum: 01/14/19 at 0406 by SHYANN BARRETT RT Amended: Links added.
[2019-01-14 06:00] VITALS: BP 159/83
[2019-01-14] MEDS: GLUCERNA 1.2 1,000 ML BOTTLE GT PRN (06:25)
[2019-01-14 08:13] VITALS: BP 158/68
[2019-01-14] MEDS: FERROUS SULFATE - FOR SA ONLY 330 MG/7.5 ML UDC GT SCH (08:55)
[2019-01-14] MEDS: ACIDOPHILUS/BULGARICUS 1 EACH TAB.CHEW GT SCH ×2 (08:55→16:58)
[2019-01-14] MEDS: DOCUSATE SODIUM LIQ 100 MG/10 ML UDC GT SCH ×2 (08:55→16:58)
[2019-01-14] MEDS: LEVETIRACETAM SOL (5 ML) 100 MG/ML UDC GT SCH ×2 (08:55→21:29)
[2019-01-14] MEDS: OMEPRAZOLE 20 MG CAPSULE.DR GT SCH (08:56)
[2019-01-14] MEDS: MULTIVIT W/MINERALS 1 TAB TABLET GT SCH (08:56)
[2019-01-14] MEDS: ASCORBIC ACID 500 MG TABLET GT SCH (08:56)
[2019-01-14] MEDS: ZINC SULFATE 220 MG CAPSULE GT SCH (08:56)
[2019-01-14] MEDS: ACETAMINOPHEN 650 MG/20 ML UDC- SA PATIENTS-PAIN ONLY GT SCH ×2 (08:56→21:29)
[2019-01-14] MEDS: Z GUARD REMEDY 2 OZ OINT TP SCH ×2 (09:00→21:30)
[2019-01-14] MEDS: THERAHONEY GEL 1.5 OZ TUBE TP SCH ×2 (09:00→21:30)
[2019-01-14] MEDS: CLOTRIMAZOLE 1% CREAM 24 GM TUBE TP SCH ×2 (09:00→21:30)
[2019-01-14] MEDS: HYDROGEN PEROXIDE 480 ML BOTTLE TP SCH ×2 (09:00→21:30)
[2019-01-14] MEDS: ZINC OXIDE 30 GM TUBE TP SCH ×2 (09:00→21:30)
[2019-01-14 16:59] VITALS: BP 135/78
[2019-01-14 19:10] VITALS: BP 141/96
[2019-01-14 19:47] VITALS: BP 138/77
[2019-01-14] MEDS: ENOXAPARIN SODIUM 40 MG/0.4 ML DISP.SYRIN SQ SCH (21:29)
[2019-01-14] MEDS: ATORVASTATIN 10 MG TABLET GT SCH (21:30)
[2019-01-14] MEDS: INSULIN GLARGINE, 100 UNIT/ML CARTRIDGE SQ SCH (21:30)
[2019-01-15 00:44] VITALS: BP 134/82
[2019-01-15] MEDS: IPRATROPIUM NEB FS 0.5 MG/2.5 ML AMPUL.NEB NEB SCH ×4 (02:23→19:20)
[2019-01-15] MEDS: ALBUTEROL FS 2.5 MG/3 ML VIAL.NEB NEB SCH ×4 (02:23→19:20)
[2019-01-15] MEDS: BLOOD SUGAR DIAGNOSTIC 1 EACH STRIP IN SCH ×3 (05:50→17:42)
[2019-01-15] MEDS: DILTIAZEM HCL 30 MG TABLET GT SCH ×3 (05:50→17:11)
[2019-01-15 06:13] VITALS: BP 126/80
[2019-01-15 07:23] VITALS: BP 128/72
--- NOTE | 2019-01-15 08:43 | NUR ---
SW emailed patients daughter, Kelly Wong as she requested; to remind him family support group taking place 01/16/19 from 11am-12pm.
[2019-01-15] MEDS: ACIDOPHILUS/BULGARICUS 1 EACH TAB.CHEW GT SCH ×2 (09:18→17:10)
[2019-01-15] MEDS: OMEPRAZOLE 20 MG CAPSULE.DR GT SCH (09:18)
[2019-01-15] MEDS: DOCUSATE SODIUM LIQ 100 MG/10 ML UDC GT SCH ×2 (09:18→17:10)
[2019-01-15] MEDS: MULTIVIT W/MINERALS 1 TAB TABLET GT SCH (09:18)
[2019-01-15] MEDS: LEVETIRACETAM SOL (5 ML) 100 MG/ML UDC GT SCH ×2 (09:18→21:08)
[2019-01-15] MEDS: FERROUS SULFATE - FOR SA ONLY 330 MG/7.5 ML UDC GT SCH (09:18)
[2019-01-15] MEDS: THERAHONEY GEL 1.5 OZ TUBE TP SCH ×2 (09:19→21:09)
[2019-01-15] MEDS: Z GUARD REMEDY 2 OZ OINT TP SCH ×2 (09:19→21:09)
[2019-01-15] MEDS: ACETAMINOPHEN 650 MG/20 ML UDC- SA PATIENTS-PAIN ONLY GT SCH ×2 (09:19→21:09)
[2019-01-15] MEDS: ZINC SULFATE 220 MG CAPSULE GT SCH (09:19)
[2019-01-15] MEDS: CLOTRIMAZOLE 1% CREAM 24 GM TUBE TP SCH ×2 (09:19→21:09)
[2019-01-15] MEDS: ASCORBIC ACID 500 MG TABLET GT SCH (09:19)
[2019-01-15] MEDS: ZINC OXIDE 30 GM TUBE TP SCH ×2 (09:20→21:09)
[2019-01-15] MEDS: HYDROGEN PEROXIDE 480 ML BOTTLE TP SCH ×2 (09:26→21:09)
[2019-01-15] MEDS: INSULIN ASPART/LISPRO 100 UNIT/ML CARTRIDGE SQ PRN ×2 (12:54→17:42)
[2019-01-15 14:59] VITALS: BP 140/70
[2019-01-15] MEDS: GLUCERNA 1.2 1,000 ML BOTTLE GT PRN (17:44)
[2019-01-15 18:03] VITALS: BP 137/68
[2019-01-15 20:34] VITALS: BP 123/76
[2019-01-15] MEDS: ENOXAPARIN SODIUM 40 MG/0.4 ML DISP.SYRIN SQ SCH (21:09)
[2019-01-15] MEDS: ATORVASTATIN 10 MG TABLET GT SCH (21:09)
[2019-01-15] MEDS: INSULIN GLARGINE, 100 UNIT/ML CARTRIDGE SQ SCH (21:10)
[2019-01-16] VITALS (7 sets, daily range): BP systolic 116–170; BP diastolic 59–89
[2019-01-16] MEDS: BLOOD SUGAR DIAGNOSTIC 1 EACH STRIP IN SCH ×4 (00:08→18:13)
[2019-01-16] MEDS: DILTIAZEM HCL 30 MG TABLET GT SCH ×4 (00:08→18:15)
[2019-01-16] MEDS: INSULIN ASPART/LISPRO 100 UNIT/ML CARTRIDGE SQ PRN ×2 (00:09→13:02)
[2019-01-16] MEDS: IPRATROPIUM NEB FS 0.5 MG/2.5 ML AMPUL.NEB NEB SCH ×4 (01:59→20:11)
[2019-01-16] MEDS: ALBUTEROL FS 2.5 MG/3 ML VIAL.NEB NEB SCH ×4 (01:59→20:11)
[2019-01-16] MEDS: LEVETIRACETAM SOL (5 ML) 100 MG/ML UDC GT SCH ×2 (08:48→21:20)
[2019-01-16] MEDS: ASCORBIC ACID 500 MG TABLET GT SCH (08:49)
[2019-01-16] MEDS: MULTIVIT W/MINERALS 1 TAB TABLET GT SCH (08:53)
[2019-01-16] MEDS: DOCUSATE SODIUM LIQ 100 MG/10 ML UDC GT SCH ×2 (08:53→17:52)
[2019-01-16] MEDS: FERROUS SULFATE - FOR SA ONLY 330 MG/7.5 ML UDC GT SCH (08:53)
[2019-01-16] MEDS: OMEPRAZOLE 20 MG CAPSULE.DR GT SCH (08:53)
[2019-01-16] MEDS: ACIDOPHILUS/BULGARICUS 1 EACH TAB.CHEW GT SCH ×2 (08:53→17:52)
[2019-01-16] MEDS: THERAHONEY GEL 1.5 OZ TUBE TP SCH ×2 (08:54→21:21)
[2019-01-16] MEDS: ACETAMINOPHEN 650 MG/20 ML UDC- SA PATIENTS-PAIN ONLY GT SCH ×2 (08:54→21:21)
[2019-01-16] MEDS: ZINC SULFATE 220 MG CAPSULE GT SCH (08:54)
[2019-01-16] MEDS: Z GUARD REMEDY 2 OZ OINT TP SCH ×2 (08:54→21:21)
[2019-01-16] MEDS: ZINC OXIDE 30 GM TUBE TP SCH ×2 (08:54→21:21)
[2019-01-16] MEDS: CLOTRIMAZOLE 1% CREAM 24 GM TUBE TP SCH ×2 (08:54→21:21)
[2019-01-16] MEDS: HYDROGEN PEROXIDE 480 ML BOTTLE TP SCH ×2 (09:46→21:00)
--- NOTE | 2019-01-16 11:22 | NUR ---
Left a message to Nathann resident's daughter to obtain consent for flu vaccine. Awaiting for call back.
[2019-01-16] MEDS: GLUCERNA 1.2 1,000 ML BOTTLE GT PRN (13:25)
--- NOTE | 2019-01-16 16:46 | NUR ---
Received a recommendation from pharmacist Ashanti to repeat BMP since there is a K level of 5.7 on 01/07, showing slightly hemolyzed. Order received from Dr. Capone. Order carried out.
[2019-01-16] MEDS: ENOXAPARIN SODIUM 40 MG/0.4 ML DISP.SYRIN SQ SCH (21:21)
[2019-01-16] MEDS: ATORVASTATIN 10 MG TABLET GT SCH (21:21)
[2019-01-16] MEDS: INSULIN GLARGINE, 100 UNIT/ML CARTRIDGE SQ SCH (21:22)
[2019-01-17] MEDS: DILTIAZEM HCL 30 MG TABLET GT SCH ×5 (00:13→23:28)
[2019-01-17] MEDS: BLOOD SUGAR DIAGNOSTIC 1 EACH STRIP IN SCH ×5 (00:13→23:28)
[2019-01-17] MEDS: INSULIN ASPART/LISPRO 100 UNIT/ML CARTRIDGE SQ PRN ×4 (00:17→23:29)
[2019-01-17 00:30] VITALS: BP 152/94
[2019-01-17] MEDS: ALBUTEROL FS 2.5 MG/3 ML VIAL.NEB NEB SCH ×4 (02:07→20:14)
[2019-01-17] MEDS: IPRATROPIUM NEB FS 0.5 MG/2.5 ML AMPUL.NEB NEB SCH ×4 (02:07→20:14)
[2019-01-17 06:09] VITALS: BP 131/75
[2019-01-17 07:42] LABS: CALCIUM, SERUM 9.4 mg/dL (8.5-10.1); CREATININE 0.9 mg/dL (0.6-1.3); POTASSIUM 5.1 mmol/L (3.5-5.1)
[2019-01-17 07:44] VITALS: BP 121/74
[2019-01-17] MEDS: HYDROGEN PEROXIDE 480 ML BOTTLE TP SCH ×2 (09:00→21:59)
[2019-01-17] MEDS: ACIDOPHILUS/BULGARICUS 1 EACH TAB.CHEW GT SCH ×2 (09:16→17:00)
[2019-01-17] MEDS: FERROUS SULFATE - FOR SA ONLY 330 MG/7.5 ML UDC GT SCH (09:16)
[2019-01-17] MEDS: MULTIVIT W/MINERALS 1 TAB TABLET GT SCH (09:16)
[2019-01-17] MEDS: ZINC SULFATE 220 MG CAPSULE GT SCH (09:16)
[2019-01-17] MEDS: DOCUSATE SODIUM LIQ 100 MG/10 ML UDC GT SCH ×2 (09:16→17:00)
[2019-01-17] MEDS: ACETAMINOPHEN 650 MG/20 ML UDC- SA PATIENTS-PAIN ONLY GT SCH ×2 (09:16→20:43)
[2019-01-17] MEDS: LEVETIRACETAM SOL (5 ML) 100 MG/ML UDC GT SCH ×2 (09:16→20:42)
[2019-01-17] MEDS: OMEPRAZOLE 20 MG CAPSULE.DR GT SCH (09:16)
[2019-01-17] MEDS: ASCORBIC ACID 500 MG TABLET GT SCH (09:16)
[2019-01-17] MEDS: CLOTRIMAZOLE 1% CREAM 24 GM TUBE TP SCH ×2 (09:45→21:31)
[2019-01-17] MEDS: THERAHONEY GEL 1.5 OZ TUBE TP SCH ×2 (09:45→21:31)
[2019-01-17] MEDS: Z GUARD REMEDY 2 OZ OINT TP SCH ×2 (09:45→21:31)
[2019-01-17] MEDS: ZINC OXIDE 30 GM TUBE TP SCH ×2 (09:45→21:31)
[2019-01-17 12:00] VITALS: BP 135/93
--- NOTE | 2019-01-17 16:30 | NUR ---
January Family Support Group: Patient's family was unable to attend. SW will invite family to the February Family Support Group.
[2019-01-17 18:00] VITALS: BP 135/80
[2019-01-17] MEDS: GLUCERNA 1.2 1,000 ML BOTTLE GT PRN (18:45)
--- NOTE | 2019-01-17 19:32 | NUR ---
Seen and examined by MILLY WALDRON.
[2019-01-17 20:13] VITALS: BP 112/61
[2019-01-17] MEDS: ENOXAPARIN SODIUM 40 MG/0.4 ML DISP.SYRIN SQ SCH (20:44)
[2019-01-17] MEDS: ATORVASTATIN 10 MG TABLET GT SCH (21:31)
[2019-01-17] MEDS: INSULIN GLARGINE, 100 UNIT/ML CARTRIDGE SQ SCH (21:32)
[2019-01-18] VITALS (7 sets, daily range): BP systolic 123–169; BP diastolic 65–108
[2019-01-18] MEDS: ALBUTEROL FS 2.5 MG/3 ML VIAL.NEB NEB SCH ×4 (01:29→19:48)
[2019-01-18] MEDS: IPRATROPIUM NEB FS 0.5 MG/2.5 ML AMPUL.NEB NEB SCH ×4 (01:29→19:48)
[2019-01-18] MEDS: BLOOD SUGAR DIAGNOSTIC 1 EACH STRIP IN SCH ×3 (06:04→17:34)
[2019-01-18] MEDS: DILTIAZEM HCL 30 MG TABLET GT SCH ×3 (06:04→17:34)
[2019-01-18] MEDS: INSULIN ASPART/LISPRO 100 UNIT/ML CARTRIDGE SQ PRN ×2 (06:04→13:15)
[2019-01-18] MEDS: MULTIVIT W/MINERALS 1 TAB TABLET GT SCH (08:35)
[2019-01-18] MEDS: ACETAMINOPHEN 650 MG/20 ML UDC- SA PATIENTS-PAIN ONLY GT SCH ×2 (08:35→21:16)
[2019-01-18] MEDS: ZINC SULFATE 220 MG CAPSULE GT SCH (08:35)
[2019-01-18] MEDS: FERROUS SULFATE - FOR SA ONLY 330 MG/7.5 ML UDC GT SCH (08:35)
[2019-01-18] MEDS: LEVETIRACETAM SOL (5 ML) 100 MG/ML UDC GT SCH ×2 (08:35→21:15)
[2019-01-18] MEDS: ACIDOPHILUS/BULGARICUS 1 EACH TAB.CHEW GT SCH ×2 (08:35→17:33)
[2019-01-18] MEDS: OMEPRAZOLE 20 MG CAPSULE.DR GT SCH (08:35)
[2019-01-18] MEDS: DOCUSATE SODIUM LIQ 100 MG/10 ML UDC GT SCH ×2 (08:35→17:33)
[2019-01-18] MEDS: ASCORBIC ACID 500 MG TABLET GT SCH (08:35)
[2019-01-18] MEDS: ZINC OXIDE 30 GM TUBE TP SCH ×2 (09:05→21:18)
[2019-01-18] MEDS: CLOTRIMAZOLE 1% CREAM 24 GM TUBE TP SCH ×2 (09:05→21:18)
[2019-01-18] MEDS: THERAHONEY GEL 1.5 OZ TUBE TP SCH ×2 (09:05→21:18)
[2019-01-18] MEDS: Z GUARD REMEDY 2 OZ OINT TP SCH ×2 (09:05→21:18)
[2019-01-18] MEDS: HYDROGEN PEROXIDE 480 ML BOTTLE TP SCH ×2 (09:09→20:27)
--- NOTE | 2019-01-18 11:17 | NUR ---
ORACIO emailed pt.s daughter, Kelly as requested to invite her to attend the IDT Plan of Care Conference meeting on 01/25/19 from 12:30pm-12:30pm in the activities room.
--- NOTE | 2019-01-18 17:26 | NUR ---
Pt receive stable on CA 28% FiO2, treatment given and no adverse reaction observe, spare trach and ambu bag at bedside. Trach patent and secured, pt remained stable the whole shift, will contine to minitor
[2019-01-18] MEDS: GLUCERNA 1.2 1,000 ML BOTTLE GT PRN (17:33)
--- NOTE | 2019-01-18 20:46 | NUR ---
PT RCVD TRACH'D ON COOL AEROSOL WITH CHARTED SETTINGS. PT [place] TX WELL. SX DONE. PT TRACH IS PATENT AND SECURE. AMBU BAG AT BEDSIDE. Addendum: 01/18/19 at 2046 by JOEY PAPPAS RT Amended: Links added.
[2019-01-18] MEDS: ENOXAPARIN SODIUM 40 MG/0.4 ML DISP.SYRIN SQ SCH (21:17)
[2019-01-18] MEDS: ATORVASTATIN 10 MG TABLET GT SCH (21:18)
[2019-01-18] MEDS: INSULIN GLARGINE, 100 UNIT/ML CARTRIDGE SQ SCH (21:19)
[2019-01-19] MEDS: BLOOD SUGAR DIAGNOSTIC 1 EACH STRIP IN SCH ×5 (00:21→23:45)
[2019-01-19] MEDS: DILTIAZEM HCL 30 MG TABLET GT SCH ×5 (00:21→23:45)
[2019-01-19] MEDS: INSULIN ASPART/LISPRO 100 UNIT/ML CARTRIDGE SQ PRN ×4 (00:23→23:46)
[2019-01-19 00:30] VITALS: BP 131/84
[2019-01-19] MEDS: IPRATROPIUM NEB FS 0.5 MG/2.5 ML AMPUL.NEB NEB SCH ×4 (00:47→19:46)
[2019-01-19] MEDS: ALBUTEROL FS 2.5 MG/3 ML VIAL.NEB NEB SCH ×4 (00:47→19:46)
[2019-01-19] MEDS: GLUCERNA 1.2 1,000 ML BOTTLE GT PRN (05:32)
[2019-01-19 06:25] VITALS: BP 130/84
[2019-01-19 08:00] VITALS: BP 122/54
[2019-01-19] MEDS: HYDROGEN PEROXIDE 480 ML BOTTLE TP SCH ×2 (08:06→21:37)
[2019-01-19] MEDS: OMEPRAZOLE 20 MG CAPSULE.DR GT SCH (08:42)
[2019-01-19] MEDS: LEVETIRACETAM SOL (5 ML) 100 MG/ML UDC GT SCH ×2 (08:42→21:35)
[2019-01-19] MEDS: FERROUS SULFATE - FOR SA ONLY 330 MG/7.5 ML UDC GT SCH (08:42)
[2019-01-19] MEDS: ACIDOPHILUS/BULGARICUS 1 EACH TAB.CHEW GT SCH ×2 (08:42→16:46)
[2019-01-19] MEDS: DOCUSATE SODIUM LIQ 100 MG/10 ML UDC GT SCH ×2 (08:42→16:45)
[2019-01-19] MEDS: ZINC SULFATE 220 MG CAPSULE GT SCH (08:43)
[2019-01-19] MEDS: ACETAMINOPHEN 650 MG/20 ML UDC- SA PATIENTS-PAIN ONLY GT SCH ×2 (08:43→21:35)
[2019-01-19] MEDS: MULTIVIT W/MINERALS 1 TAB TABLET GT SCH (08:43)
[2019-01-19] MEDS: ASCORBIC ACID 500 MG TABLET GT SCH (08:43)
[2019-01-19] MEDS: CLOTRIMAZOLE 1% CREAM 24 GM TUBE TP SCH ×2 (09:15→21:37)
[2019-01-19] MEDS: THERAHONEY GEL 1.5 OZ TUBE TP SCH ×2 (09:15→21:37)
[2019-01-19] MEDS: ZINC OXIDE 30 GM TUBE TP SCH ×2 (09:15→21:37)
[2019-01-19] MEDS: Z GUARD REMEDY 2 OZ OINT TP SCH ×2 (09:15→21:37)
[2019-01-19 12:36] VITALS: BP 145/72
[2019-01-19 18:16] VITALS: BP 138/76
[2019-01-19 20:02] VITALS: BP 148/86
[2019-01-19] MEDS: ENOXAPARIN SODIUM 40 MG/0.4 ML DISP.SYRIN SQ SCH (21:37)
[2019-01-19] MEDS: ATORVASTATIN 10 MG TABLET GT SCH (21:37)
[2019-01-19] MEDS: INSULIN GLARGINE, 100 UNIT/ML CARTRIDGE SQ SCH (21:38)
[2019-01-20] VITALS: BP 146/85
[2019-01-20] MEDS: ALBUTEROL FS 2.5 MG/3 ML VIAL.NEB NEB SCH ×4 (01:09→19:29)
[2019-01-20] MEDS: IPRATROPIUM NEB FS 0.5 MG/2.5 ML AMPUL.NEB NEB SCH ×4 (01:09→19:29)
[2019-01-20] MEDS: GLUCERNA 1.2 1,000 ML BOTTLE GT PRN (03:42)
[2019-01-20 06:00] VITALS: BP 145/87
[2019-01-20] MEDS: DILTIAZEM HCL 30 MG TABLET GT SCH ×4 (06:07→23:17)
[2019-01-20] MEDS: INSULIN ASPART/LISPRO 100 UNIT/ML CARTRIDGE SQ PRN ×4 (06:07→23:18)
[2019-01-20] MEDS: BLOOD SUGAR DIAGNOSTIC 1 EACH STRIP IN SCH ×4 (06:07→23:17)
--- NOTE | 2019-01-20 06:13 | NUR ---
Pt received on ordered CA 28%, spare trach and ambu bag is at bedside, alarms are on and audible, all HHN tx. given and no adverse reaction observe. trach patent and secured, sxn prn, pt was stable the whole shift, no sob or respiratory distress noted during the shift
[2019-01-20 07:23] VITALS: BP 114/70
--- NOTE | 2019-01-20 08:20 | NUR ---
RT Pt received trached on cool aerosol tolerating well. Pt is awake but does not follow commands. HHN tx tolerated well with no adverse reactions. No respiratory distress noted. Addendum: 01/20/19 at 1638 by FIGUEROA BHATIA RT Amended: Links added.
[2019-01-20] MEDS: HYDROGEN PEROXIDE 480 ML BOTTLE TP SCH ×2 (09:00→21:08)
[2019-01-20] MEDS: ZINC SULFATE 220 MG CAPSULE GT SCH (09:26)
[2019-01-20] MEDS: FERROUS SULFATE - FOR SA ONLY 330 MG/7.5 ML UDC GT SCH (09:26)
[2019-01-20] MEDS: OMEPRAZOLE 20 MG CAPSULE.DR GT SCH (09:26)
[2019-01-20] MEDS: Z GUARD REMEDY 2 OZ OINT TP SCH ×2 (09:26→21:08)
[2019-01-20] MEDS: MULTIVIT W/MINERALS 1 TAB TABLET GT SCH (09:26)
[2019-01-20] MEDS: ACETAMINOPHEN 650 MG/20 ML UDC- SA PATIENTS-PAIN ONLY GT SCH ×2 (09:26→21:07)
[2019-01-20] MEDS: CLOTRIMAZOLE 1% CREAM 24 GM TUBE TP SCH ×2 (09:26→21:08)
[2019-01-20] MEDS: ACIDOPHILUS/BULGARICUS 1 EACH TAB.CHEW GT SCH ×2 (09:26→16:44)
[2019-01-20] MEDS: LEVETIRACETAM SOL (5 ML) 100 MG/ML UDC GT SCH ×2 (09:26→21:07)
[2019-01-20] MEDS: ASCORBIC ACID 500 MG TABLET GT SCH (09:26)
[2019-01-20] MEDS: DOCUSATE SODIUM LIQ 100 MG/10 ML UDC GT SCH ×2 (09:26→16:44)
[2019-01-20] MEDS: ZINC OXIDE 30 GM TUBE TP SCH ×2 (09:27→21:08)
[2019-01-20] MEDS: THERAHONEY GEL 1.5 OZ TUBE TP SCH ×2 (09:27→21:08)
--- NOTE | 2019-01-20 11:00 | NUR ---
Kelly Wong (daughter) came to visit and said that she doesn't want her mom to receive the Flu vaccine. Discussed with her the risks and benefits of the vaccine.
[2019-01-20 12:00] VITALS: BP 122/86
[2019-01-20 18:13] VITALS: BP 131/69
[2019-01-20 19:50] VITALS: BP 140/73
[2019-01-20] MEDS: ENOXAPARIN SODIUM 40 MG/0.4 ML DISP.SYRIN SQ SCH (21:08)
[2019-01-20] MEDS: INSULIN GLARGINE, 100 UNIT/ML CARTRIDGE SQ SCH (21:08)
[2019-01-20] MEDS: ATORVASTATIN 10 MG TABLET GT SCH (21:08)
[2019-01-21 02:12] VITALS: BP 128/74
[2019-01-21] MEDS: IPRATROPIUM NEB FS 0.5 MG/2.5 ML AMPUL.NEB NEB SCH ×4 (02:28→19:51)
[2019-01-21] MEDS: ALBUTEROL FS 2.5 MG/3 ML VIAL.NEB NEB SCH ×4 (02:28→19:51)
[2019-01-21] MEDS: DILTIAZEM HCL 30 MG TABLET GT SCH ×3 (05:35→17:29)
[2019-01-21] MEDS: BLOOD SUGAR DIAGNOSTIC 1 EACH STRIP IN SCH ×3 (05:35→17:29)
[2019-01-21 06:15] VITALS: BP 122/64
[2019-01-21] MEDS: HYDROGEN PEROXIDE 480 ML BOTTLE TP SCH ×2 (07:16→19:51)
[2019-01-21 07:42] VITALS: BP 140/64
[2019-01-21] MEDS: MULTIVIT W/MINERALS 1 TAB TABLET GT SCH (08:43)
[2019-01-21] MEDS: OMEPRAZOLE 20 MG CAPSULE.DR GT SCH (08:43)
[2019-01-21] MEDS: DOCUSATE SODIUM LIQ 100 MG/10 ML UDC GT SCH ×2 (08:43→16:32)
[2019-01-21] MEDS: ACIDOPHILUS/BULGARICUS 1 EACH TAB.CHEW GT SCH ×2 (08:43→16:32)
[2019-01-21] MEDS: LEVETIRACETAM SOL (5 ML) 100 MG/ML UDC GT SCH ×2 (08:43→21:14)
[2019-01-21] MEDS: FERROUS SULFATE - FOR SA ONLY 330 MG/7.5 ML UDC GT SCH (08:43)
[2019-01-21] MEDS: ASCORBIC ACID 500 MG TABLET GT SCH (08:44)
[2019-01-21] MEDS: ZINC SULFATE 220 MG CAPSULE GT SCH (08:44)
[2019-01-21] MEDS: ACETAMINOPHEN 650 MG/20 ML UDC- SA PATIENTS-PAIN ONLY GT SCH ×2 (08:44→21:15)
[2019-01-21] MEDS: THERAHONEY GEL 1.5 OZ TUBE TP SCH ×2 (09:15→21:16)
[2019-01-21] MEDS: Z GUARD REMEDY 2 OZ OINT TP SCH ×2 (09:15→21:15)
[2019-01-21] MEDS: CLOTRIMAZOLE 1% CREAM 24 GM TUBE TP SCH ×2 (09:15→21:15)
[2019-01-21] MEDS: ZINC OXIDE 30 GM TUBE TP SCH ×2 (09:15→21:16)
[2019-01-21 12:00] VITALS: BP 140/64
--- NOTE | 2019-01-21 14:39 | NUR ---
ORACIO called and spoke to patients daughter/ conservator, Kelly Wong [phone] regarding past due share of cost owed to [employer]. Kelly discussed with ORACIO that she has been having difficulty with making payment because of other expenses needed for the resident. Per Kelly, she would like SW to email her the total amount due. Per Kelly, she is aware of the share of cost and monthly amount due. Per Kelly, she will begin making payments and try to arrange a payment plan that works for her with billing. ORACIO emailed Kelly, the details requested.
[2019-01-21] MEDS: GLUCERNA 1.2 1,000 ML BOTTLE GT PRN (16:33)
[2019-01-21] MEDS: INSULIN ASPART/LISPRO 100 UNIT/ML CARTRIDGE SQ PRN (17:30)
[2019-01-21 18:24] VITALS: BP 142/78
--- NOTE | 2019-01-21 20:02 | NUR ---
RT NOTE: RECEIVED TRACH PT ON COOL AEROSOL. AMBU BAG @ BEDSIDE. Q6 BREATHING TX GIVEN PER MD ORDERS WITH NO ADVERSE REACTION NOTED. SX DONE PRN. TRACH PATENT AND SECURED. TRACH CARE DONE. NO RESP DISTRESS NOTED AT THIS TIME. WILL CONTINUE TO MONITOR PT Addendum: 01/22/19 at 0307 by BECKY DIALLO RT Amended: Links added.
[2019-01-21 20:34] VITALS: BP 120/65
[2019-01-21] MEDS: ENOXAPARIN SODIUM 40 MG/0.4 ML DISP.SYRIN SQ SCH (21:15)
[2019-01-21] MEDS: INSULIN GLARGINE, 100 UNIT/ML CARTRIDGE SQ SCH (21:16)
[2019-01-21] MEDS: ATORVASTATIN 10 MG TABLET GT SCH (21:16)
[2019-01-22 00:21] VITALS: BP 129/69
[2019-01-22] MEDS: BLOOD SUGAR DIAGNOSTIC 1 EACH STRIP IN SCH ×5 (00:22→23:47)
[2019-01-22] MEDS: DILTIAZEM HCL 30 MG TABLET GT SCH ×5 (00:22→23:47)
[2019-01-22] MEDS: IPRATROPIUM NEB FS 0.5 MG/2.5 ML AMPUL.NEB NEB SCH ×4 (01:52→19:44)
[2019-01-22] MEDS: ALBUTEROL FS 2.5 MG/3 ML VIAL.NEB NEB SCH ×4 (01:52→19:44)
[2019-01-22 06:14] VITALS: BP 130/68
[2019-01-22 07:30] LABS: BASOPHILS # (AUTO) 0.1 /CMM (0.0-0.2); BASOPHILS % (AUTO) 0.8 % (0.0-2.0); HEMATOCRIT 36 % (33-45); HEMOGLOBIN 11.4 g/dL (11.5-14.8); LYMPHOCYTES % (AUTO) 27.4 % (20.0-44.0); MEAN CORPUSCULAR HGB CONC 32 g/dl (31.0-36.0); MEAN CORPUSCULAR VOLUME 88 fL (82-100); MONOCYTES # (AUTO) 0.6 /CMM (0.1-1.30); MONOCYTES % (AUTO) 8.3 % (2.0-12.0); NEUTROPHILS # (AUTO) 4.4 /CMM (1.8-8.9); NEUTROPHILS % (AUTO) 61.5 % (43.0-81.0); PLATELET COUNT (AUTO) 381 /CMM (150-450); RED BLOOD CELL COUNT(AUTO) 4.15 MIL/uL (4.0-5.2); WHITE BLOOD COUNT (AUTO) 7.2 K/uL (4.3-11.0)
[2019-01-22 07:48] VITALS: BP 129/64
[2019-01-22 08:25] LABS: CALCIUM, SERUM 9.8 mg/dL (8.5-10.1); CREATININE 1.1 mg/dL (0.6-1.3); MAGNESIUM 2.4 mg/dL (1.8-2.4); PHOSPHORUS 4.1 mg/dL (2.5-4.9); POTASSIUM 4.7 mmol/L (3.5-5.1)
[2019-01-22] MEDS: LEVETIRACETAM SOL (5 ML) 100 MG/ML UDC GT SCH ×2 (08:59→21:06)
[2019-01-22] MEDS: MULTIVIT W/MINERALS 1 TAB TABLET GT SCH (08:59)
[2019-01-22] MEDS: FERROUS SULFATE - FOR SA ONLY 330 MG/7.5 ML UDC GT SCH (08:59)
[2019-01-22] MEDS: OMEPRAZOLE 20 MG CAPSULE.DR GT SCH (08:59)
[2019-01-22] MEDS: ACIDOPHILUS/BULGARICUS 1 EACH TAB.CHEW GT SCH ×2 (08:59→17:14)
[2019-01-22] MEDS: DOCUSATE SODIUM LIQ 100 MG/10 ML UDC GT SCH ×2 (08:59→16:28)
[2019-01-22] MEDS: THERAHONEY GEL 1.5 OZ TUBE TP SCH ×2 (09:00→21:07)
[2019-01-22] MEDS: ZINC SULFATE 220 MG CAPSULE GT SCH (09:00)
[2019-01-22] MEDS: ASCORBIC ACID 500 MG TABLET GT SCH (09:00)
[2019-01-22] MEDS: HYDROGEN PEROXIDE 480 ML BOTTLE TP SCH ×2 (09:00→21:06)
[2019-01-22] MEDS: ACETAMINOPHEN 650 MG/20 ML UDC- SA PATIENTS-PAIN ONLY GT SCH ×2 (09:00→21:06)
[2019-01-22] MEDS: Z GUARD REMEDY 2 OZ OINT TP SCH ×2 (09:00→21:06)
[2019-01-22] MEDS: CLOTRIMAZOLE 1% CREAM 24 GM TUBE TP SCH ×2 (09:00→21:06)
[2019-01-22] MEDS: ZINC OXIDE 30 GM TUBE TP SCH ×2 (09:01→21:07)
[2019-01-22] MEDS: INSULIN ASPART/LISPRO 100 UNIT/ML CARTRIDGE SQ PRN ×3 (12:49→23:48)
[2019-01-22 16:29] VITALS: BP 122/68
[2019-01-22 18:45] VITALS: BP 117/69
[2019-01-22 20:23] VITALS: BP 134/77
--- NOTE | 2019-01-22 20:28 | NUR ---
RT NOTE PT RECEIVED TRACHED ON COOL AEROSOL @ 28%. AMBU BAG/BACK UP TRACH @ BEDSIDE. TX GIVEN, NO ADVERSE REACTIONS NOTED. SX DONE, TRACH SECURED AND PATENT. WATER LEVEL GOOD. NO SOB NOTED AT THIS TIME. WILL CONTINUE TO MONITOR T/O SHIFT. Addendum: 01/22/19 at 2027 by GIULIA BACON RT Amended: Links added.
[2019-01-22] MEDS: ENOXAPARIN SODIUM 40 MG/0.4 ML DISP.SYRIN SQ SCH (21:06)
[2019-01-22] MEDS: INSULIN GLARGINE, 100 UNIT/ML CARTRIDGE SQ SCH (21:07)
[2019-01-22] MEDS: ATORVASTATIN 10 MG TABLET GT SCH (21:07)
[2019-01-23] MEDS: IPRATROPIUM NEB FS 0.5 MG/2.5 ML AMPUL.NEB NEB SCH ×4 (01:17→20:23)
[2019-01-23] MEDS: ALBUTEROL FS 2.5 MG/3 ML VIAL.NEB NEB SCH ×4 (01:17→20:23)
[2019-01-23 03:30] VITALS: BP 129/62
[2019-01-23] MEDS: BLOOD SUGAR DIAGNOSTIC 1 EACH STRIP IN SCH ×4 (05:42→23:46)
[2019-01-23] MEDS: DILTIAZEM HCL 30 MG TABLET GT SCH ×4 (05:42→23:45)
[2019-01-23 06:04] VITALS: BP 122/64
[2019-01-23 07:41] VITALS: BP 135/75
--- NOTE | 2019-01-23 08:14 | NUR ---
Informed [facility] pharmacist Hesham, that Abreva is OTC medication and [facility] is not providing it. Per pharmacist will place the order and will have it by tomorrow.
[2019-01-23] MEDS: HYDROGEN PEROXIDE 480 ML BOTTLE TP SCH ×2 (09:00→21:00)
[2019-01-23] MEDS: FERROUS SULFATE - FOR SA ONLY 330 MG/7.5 ML UDC GT SCH (09:45)
[2019-01-23] MEDS: ACIDOPHILUS/BULGARICUS 1 EACH TAB.CHEW GT SCH ×2 (09:45→17:00)
[2019-01-23] MEDS: MULTIVIT W/MINERALS 1 TAB TABLET GT SCH (09:45)
[2019-01-23] MEDS: DOCUSATE SODIUM LIQ 100 MG/10 ML UDC GT SCH ×2 (09:45→17:00)
[2019-01-23] MEDS: OMEPRAZOLE 20 MG CAPSULE.DR GT SCH (09:45)
[2019-01-23] MEDS: LEVETIRACETAM SOL (5 ML) 100 MG/ML UDC GT SCH ×2 (09:45→20:36)
[2019-01-23] MEDS: Z GUARD REMEDY 2 OZ OINT TP SCH ×2 (09:46→21:10)
[2019-01-23] MEDS: THERAHONEY GEL 1.5 OZ TUBE TP SCH ×2 (09:46→21:11)
[2019-01-23] MEDS: ZINC OXIDE 30 GM TUBE TP SCH ×2 (09:46→21:11)
[2019-01-23] MEDS: ASCORBIC ACID 500 MG TABLET GT SCH (09:46)
[2019-01-23] MEDS: ACETAMINOPHEN 650 MG/20 ML UDC- SA PATIENTS-PAIN ONLY GT SCH ×2 (09:46→20:37)
[2019-01-23] MEDS: ZINC SULFATE 220 MG CAPSULE GT SCH (09:46)
[2019-01-23] MEDS: CLOTRIMAZOLE 1% CREAM 24 GM TUBE TP SCH ×2 (09:46→21:10)
[2019-01-23 12:00] VITALS: BP 129/68
[2019-01-23] MEDS: INSULIN ASPART/LISPRO 100 UNIT/ML CARTRIDGE SQ PRN ×3 (14:28→23:48)
--- NOTE | 2019-01-23 15:41 | NUR ---
ORACIO followed-up and called the patients responsible green party/daughter, Kelly Wong. Per Tati preference, ORACIO e-mailed the Resident Trust Fund Authorization form and A guide for Area Development Consultant Payees informational packet to along with instructions. ORACIO explained that the purpose authorizing [facility] to set up Resident Trust Funds is to facilitate and ensure the payment of share of cost. ORACIO will follow up.
[2019-01-23 18:29] VITALS: BP 135/74
[2019-01-23 19:56] VITALS: BP 122/70
[2019-01-23] MEDS: ENOXAPARIN SODIUM 40 MG/0.4 ML DISP.SYRIN SQ SCH (20:40)
[2019-01-23] MEDS: ATORVASTATIN 10 MG TABLET GT SCH (21:11)
[2019-01-23] MEDS: INSULIN GLARGINE, 100 UNIT/ML CARTRIDGE SQ SCH (21:14)
[2019-01-24] VITALS: BP 128/72
[2019-01-24] MEDS: GLUCERNA 1.2 1,000 ML BOTTLE GT PRN (01:33)
[2019-01-24] MEDS: ALBUTEROL FS 2.5 MG/3 ML VIAL.NEB NEB SCH ×4 (01:49→20:01)
[2019-01-24] MEDS: IPRATROPIUM NEB FS 0.5 MG/2.5 ML AMPUL.NEB NEB SCH ×4 (01:49→20:01)
[2019-01-24] MEDS: INSULIN ASPART/LISPRO 100 UNIT/ML CARTRIDGE SQ PRN ×3 (05:29→23:48)
[2019-01-24] MEDS: DILTIAZEM HCL 30 MG TABLET GT SCH ×4 (05:29→23:43)
[2019-01-24] MEDS: BLOOD SUGAR DIAGNOSTIC 1 EACH STRIP IN SCH ×4 (05:30→23:43)
[2019-01-24 06:00] VITALS: BP 124/66
[2019-01-24 07:24] VITALS: BP 122/75
--- NOTE | 2019-01-24 08:27 | NUR ---
ORACIO received email response from patient's daughter, Kelly Wong regarding Share of Cost (see previous SS notes) stating, "Ill follow up with the business office in regards to SOC. Thanks for update." ORACIO provided Kelly with the number to the business office [phone] ext. [phone].
[2019-01-24] MEDS: DOCUSATE SODIUM LIQ 100 MG/10 ML UDC GT SCH ×2 (08:29→17:51)
[2019-01-24] MEDS: LEVETIRACETAM SOL (5 ML) 100 MG/ML UDC GT SCH ×2 (08:29→21:12)
[2019-01-24] MEDS: MULTIVIT W/MINERALS 1 TAB TABLET GT SCH (08:29)
[2019-01-24] MEDS: ACIDOPHILUS/BULGARICUS 1 EACH TAB.CHEW GT SCH ×2 (08:29→17:51)
[2019-01-24] MEDS: OMEPRAZOLE 20 MG CAPSULE.DR GT SCH (08:29)
[2019-01-24] MEDS: FERROUS SULFATE - FOR SA ONLY 330 MG/7.5 ML UDC GT SCH (08:29)
[2019-01-24] MEDS: [UNRECOGNIZED DRUG - OTHER] TP SCH ×5 (08:30→21:13)
[2019-01-24] MEDS: ASCORBIC ACID 500 MG TABLET GT SCH (08:30)
[2019-01-24] MEDS: ZINC SULFATE 220 MG CAPSULE GT SCH (08:30)
[2019-01-24] MEDS: ACETAMINOPHEN 650 MG/20 ML UDC- SA PATIENTS-PAIN ONLY GT SCH ×2 (08:30→21:12)
[2019-01-24] MEDS: HYDROGEN PEROXIDE 480 ML BOTTLE TP SCH ×2 (09:00→21:14)
[2019-01-24] MEDS: THERAHONEY GEL 1.5 OZ TUBE TP SCH ×2 (09:50→21:14)
[2019-01-24] MEDS: CLOTRIMAZOLE 1% CREAM 24 GM TUBE TP SCH ×2 (09:50→21:14)
[2019-01-24] MEDS: ZINC OXIDE 30 GM TUBE TP SCH ×2 (09:50→21:14)
[2019-01-24] MEDS: Z GUARD REMEDY 2 OZ OINT TP SCH ×2 (09:50→21:14)
--- NOTE | 2019-01-24 10:55 | NUR ---
Late entry for 01/22/19 Notified pt's daughter Kelly that Abreva will be applied to pt's lower lip sore. Notified Kelly that pt has been seen biting her lower lip and it is the biting that probably caused the sore. Kelly said she does not want a mouthguard to be used and that she will bring lip balm/ointment for her mother, but to also apply Abreva.
[2019-01-24 12:00] VITALS: BP 129/82
[2019-01-24 18:36] VITALS: BP 139/85
[2019-01-24 20:36] VITALS: BP 123/74
[2019-01-24] MEDS: ENOXAPARIN SODIUM 40 MG/0.4 ML DISP.SYRIN SQ SCH (21:13)
[2019-01-24] MEDS: ATORVASTATIN 10 MG TABLET GT SCH (21:19)
[2019-01-24] MEDS: INSULIN GLARGINE, 100 UNIT/ML CARTRIDGE SQ SCH (21:23)
[2019-01-25] VITALS (7 sets, daily range): BP systolic 115–156; BP diastolic 54–95
[2019-01-25] MEDS: ALBUTEROL FS 2.5 MG/3 ML VIAL.NEB NEB SCH ×4 (01:17→20:19)
[2019-01-25] MEDS: IPRATROPIUM NEB FS 0.5 MG/2.5 ML AMPUL.NEB NEB SCH ×4 (01:17→20:19)
--- NOTE | 2019-01-25 04:51 | NUR ---
Received pt. stable on 28% FiO2 C/A, spare trach and ambu bag is at bedside, all tx. given and no adverse reaction observe, trach patent and secured, no sob or respiratory distress during shift, will continue to monitor.
[2019-01-25] MEDS: BLOOD SUGAR DIAGNOSTIC 1 EACH STRIP IN SCH ×4 (05:58→23:25)
[2019-01-25] MEDS: DILTIAZEM HCL 30 MG TABLET GT SCH ×4 (05:58→23:25)
[2019-01-25] MEDS: INSULIN ASPART/LISPRO 100 UNIT/ML CARTRIDGE SQ PRN ×4 (06:00→23:26)
[2019-01-25] MEDS: HYDROGEN PEROXIDE 480 ML BOTTLE TP SCH ×2 (08:02→20:54)
[2019-01-25] MEDS: THERAHONEY GEL 1.5 OZ TUBE TP SCH ×2 (09:00→20:55)
[2019-01-25] MEDS: ZINC OXIDE 30 GM TUBE TP SCH ×2 (09:00→20:55)
[2019-01-25] MEDS: CLOTRIMAZOLE 1% CREAM 24 GM TUBE TP SCH ×2 (09:00→20:54)
[2019-01-25] MEDS: Z GUARD REMEDY 2 OZ OINT TP SCH ×2 (09:00→20:55)
[2019-01-25] MEDS: [UNRECOGNIZED DRUG - OTHER] TP SCH ×4 (09:00→20:54)
[2019-01-25] MEDS: OMEPRAZOLE 20 MG CAPSULE.DR GT SCH (09:46)
[2019-01-25] MEDS: MULTIVIT W/MINERALS 1 TAB TABLET GT SCH (09:46)
[2019-01-25] MEDS: LEVETIRACETAM SOL (5 ML) 100 MG/ML UDC GT SCH ×2 (09:46→20:53)
[2019-01-25] MEDS: DOCUSATE SODIUM LIQ 100 MG/10 ML UDC GT SCH ×2 (09:46→16:21)
[2019-01-25] MEDS: ACIDOPHILUS/BULGARICUS 1 EACH TAB.CHEW GT SCH ×2 (09:46→16:21)
[2019-01-25] MEDS: FERROUS SULFATE - FOR SA ONLY 330 MG/7.5 ML UDC GT SCH (09:46)
[2019-01-25] MEDS: ACETAMINOPHEN 650 MG/20 ML UDC- SA PATIENTS-PAIN ONLY GT SCH ×2 (09:47→20:54)
[2019-01-25] MEDS: ZINC SULFATE 220 MG CAPSULE GT SCH (09:47)
[2019-01-25] MEDS: ASCORBIC ACID 500 MG TABLET GT SCH (09:47)
[2019-01-25] MEDS: GLUCERNA 1.2 1,000 ML BOTTLE GT PRN (15:23)
[2019-01-25] MEDS: ONDANSETRON 4 MG TAB.RAPDIS GT PRN (19:41)
[2019-01-25] MEDS: ENOXAPARIN SODIUM 40 MG/0.4 ML DISP.SYRIN SQ SCH (20:54)
[2019-01-25] MEDS: INSULIN GLARGINE, 100 UNIT/ML CARTRIDGE SQ SCH (21:17)
[2019-01-25] MEDS: ATORVASTATIN 10 MG TABLET GT SCH (21:17)
[2019-01-26 00:22] VITALS: BP 112/67
[2019-01-26] MEDS: IPRATROPIUM NEB FS 0.5 MG/2.5 ML AMPUL.NEB NEB SCH ×4 (01:53→19:49)
[2019-01-26] MEDS: ALBUTEROL FS 2.5 MG/3 ML VIAL.NEB NEB SCH ×4 (01:53→19:49)
[2019-01-26] MEDS: BLOOD SUGAR DIAGNOSTIC 1 EACH STRIP IN SCH ×4 (05:37→23:17)
[2019-01-26] MEDS: DILTIAZEM HCL 30 MG TABLET GT SCH ×4 (05:37→23:17)
[2019-01-26] MEDS: GLUCERNA 1.2 1,000 ML BOTTLE GT PRN ×2 (05:37→23:18)
[2019-01-26] MEDS: INSULIN ASPART/LISPRO 100 UNIT/ML CARTRIDGE SQ PRN ×4 (05:38→23:17)
[2019-01-26 06:24] VITALS: BP 110/65
[2019-01-26 07:38] VITALS: BP 128/75
[2019-01-26] MEDS: ACIDOPHILUS/BULGARICUS 1 EACH TAB.CHEW GT SCH ×2 (08:06→17:16)
[2019-01-26] MEDS: ZINC SULFATE 220 MG CAPSULE GT SCH (08:06)
[2019-01-26] MEDS: OMEPRAZOLE 20 MG CAPSULE.DR GT SCH (08:06)
[2019-01-26] MEDS: MULTIVIT W/MINERALS 1 TAB TABLET GT SCH (08:06)
[2019-01-26] MEDS: ACETAMINOPHEN 650 MG/20 ML UDC- SA PATIENTS-PAIN ONLY GT SCH ×2 (08:06→20:36)
[2019-01-26] MEDS: DOCUSATE SODIUM LIQ 100 MG/10 ML UDC GT SCH ×2 (08:06→17:16)
[2019-01-26] MEDS: FERROUS SULFATE - FOR SA ONLY 330 MG/7.5 ML UDC GT SCH (08:06)
[2019-01-26] MEDS: LEVETIRACETAM SOL (5 ML) 100 MG/ML UDC GT SCH ×2 (08:06→20:34)
[2019-01-26] MEDS: ASCORBIC ACID 500 MG TABLET GT SCH (08:06)
[2019-01-26] MEDS: [UNRECOGNIZED DRUG - OTHER] TP SCH ×4 (08:07→20:36)
[2019-01-26] MEDS: HYDROGEN PEROXIDE 480 ML BOTTLE TP SCH ×2 (09:00→20:36)
[2019-01-26] MEDS: ZINC OXIDE 30 GM TUBE TP SCH ×2 (09:58→20:36)
[2019-01-26] MEDS: CLOTRIMAZOLE 1% CREAM 24 GM TUBE TP SCH ×2 (09:58→20:36)
[2019-01-26] MEDS: THERAHONEY GEL 1.5 OZ TUBE TP SCH ×2 (09:58→20:36)
[2019-01-26] MEDS: Z GUARD REMEDY 2 OZ OINT TP SCH ×2 (09:58→20:36)
[2019-01-26 12:00] VITALS: BP 118/68
[2019-01-26 18:00] VITALS: BP 141/89
[2019-01-26 19:46] VITALS: BP 120/70
[2019-01-26] MEDS: ENOXAPARIN SODIUM 40 MG/0.4 ML DISP.SYRIN SQ SCH (20:36)
[2019-01-26] MEDS: ATORVASTATIN 10 MG TABLET GT SCH (21:14)
[2019-01-26] MEDS: INSULIN GLARGINE, 100 UNIT/ML CARTRIDGE SQ SCH (21:15)
[2019-01-27 00:06] VITALS: BP 116/79
[2019-01-27] MEDS: ALBUTEROL FS 2.5 MG/3 ML VIAL.NEB NEB SCH ×4 (01:34→20:24)
[2019-01-27] MEDS: IPRATROPIUM NEB FS 0.5 MG/2.5 ML AMPUL.NEB NEB SCH ×4 (01:34→20:24)
[2019-01-27] MEDS: DILTIAZEM HCL 30 MG TABLET GT SCH ×3 (05:28→17:48)
[2019-01-27] MEDS: BLOOD SUGAR DIAGNOSTIC 1 EACH STRIP IN SCH ×3 (05:28→17:48)
[2019-01-27] MEDS: INSULIN ASPART/LISPRO 100 UNIT/ML CARTRIDGE SQ PRN ×3 (05:29→17:48)
--- NOTE | 2019-01-27 05:38 | NUR ---
RT PATIENT WAS RECEIVED ON 28% COOL AEROSOL . AIRWAY PATENT AND SECURED. PATIENT STABLE THROUGHOUT THE SHIFT. WILL CONTINUE TO MONITOR. Addendum: 01/27/19 at 0538 by SHYANN BARRETT RT Amended: Links added.
[2019-01-27 06:09] VITALS: BP 112/58
[2019-01-27 07:44] VITALS: BP 131/79
--- NOTE | 2019-01-27 08:20 | NUR ---
RT Pt is awake but does not follow commands, pt is on cool aerosol tolerating well. HHN tx tolerated well with no adverse reactions. No signs of respiratory distress noted. Addendum: 01/27/19 at 1544 by FIGUEROA BHATIA RT Amended: Links added.
[2019-01-27] MEDS: DOCUSATE SODIUM LIQ 100 MG/10 ML UDC GT SCH ×2 (08:43→17:48)
[2019-01-27] MEDS: FERROUS SULFATE - FOR SA ONLY 330 MG/7.5 ML UDC GT SCH (08:43)
[2019-01-27] MEDS: OMEPRAZOLE 20 MG CAPSULE.DR GT SCH (08:45)
[2019-01-27] MEDS: ACETAMINOPHEN 650 MG/20 ML UDC- SA PATIENTS-PAIN ONLY GT SCH ×2 (08:45→20:31)
[2019-01-27] MEDS: ACIDOPHILUS/BULGARICUS 1 EACH TAB.CHEW GT SCH ×2 (08:45→17:48)
[2019-01-27] MEDS: LEVETIRACETAM SOL (5 ML) 100 MG/ML UDC GT SCH ×2 (08:45→20:31)
[2019-01-27] MEDS: ASCORBIC ACID 500 MG TABLET GT SCH (08:46)
[2019-01-27] MEDS: ZINC SULFATE 220 MG CAPSULE GT SCH (08:46)
[2019-01-27] MEDS: MULTIVIT W/MINERALS 1 TAB TABLET GT SCH (08:58)
[2019-01-27] MEDS: Z GUARD REMEDY 2 OZ OINT TP SCH ×2 (09:00→20:32)
[2019-01-27] MEDS: HYDROGEN PEROXIDE 480 ML BOTTLE TP SCH ×2 (09:00→21:00)
[2019-01-27] MEDS: THERAHONEY GEL 1.5 OZ TUBE TP SCH ×2 (09:00→20:32)
[2019-01-27] MEDS: CLOTRIMAZOLE 1% CREAM 24 GM TUBE TP SCH ×2 (09:00→20:32)
[2019-01-27] MEDS: ZINC OXIDE 30 GM TUBE TP SCH ×2 (09:00→20:32)
[2019-01-27 12:00] VITALS: BP 116/69
[2019-01-27 18:00] VITALS: BP 99/59
[2019-01-27] MEDS: GLUCERNA 1.2 1,000 ML BOTTLE GT PRN (18:16)
[2019-01-27 19:46] VITALS: BP 121/58
[2019-01-27] MEDS: ENOXAPARIN SODIUM 40 MG/0.4 ML DISP.SYRIN SQ SCH (20:32)
[2019-01-27] MEDS: ATORVASTATIN 10 MG TABLET GT SCH (21:02)
[2019-01-27] MEDS: INSULIN GLARGINE, 100 UNIT/ML CARTRIDGE SQ SCH (21:02)
[2019-01-28] VITALS: BP 131/62
[2019-01-28] MEDS: BLOOD SUGAR DIAGNOSTIC 1 EACH STRIP IN SCH ×5 (00:21→23:18)
[2019-01-28] MEDS: DILTIAZEM HCL 30 MG TABLET GT SCH ×5 (00:22→23:18)
[2019-01-28] MEDS: INSULIN ASPART/LISPRO 100 UNIT/ML CARTRIDGE SQ PRN ×5 (00:23→23:19)
[2019-01-28] MEDS: IPRATROPIUM NEB FS 0.5 MG/2.5 ML AMPUL.NEB NEB SCH ×4 (01:43→20:07)
[2019-01-28] MEDS: ALBUTEROL FS 2.5 MG/3 ML VIAL.NEB NEB SCH ×4 (01:43→20:07)
[2019-01-28 06:00] VITALS: BP 127/73
[2019-01-28 07:35] VITALS: BP 133/71
[2019-01-28] MEDS: HYDROGEN PEROXIDE 480 ML BOTTLE TP SCH ×2 (07:39→21:48)
[2019-01-28] MEDS: LEVETIRACETAM SOL (5 ML) 100 MG/ML UDC GT SCH ×2 (08:40→21:23)
[2019-01-28] MEDS: OMEPRAZOLE 20 MG CAPSULE.DR GT SCH (08:40)
[2019-01-28] MEDS: ACIDOPHILUS/BULGARICUS 1 EACH TAB.CHEW GT SCH ×2 (08:40→17:00)
[2019-01-28] MEDS: FERROUS SULFATE - FOR SA ONLY 330 MG/7.5 ML UDC GT SCH (08:40)
[2019-01-28] MEDS: DOCUSATE SODIUM LIQ 100 MG/10 ML UDC GT SCH ×2 (08:40→17:00)
[2019-01-28] MEDS: MULTIVIT W/MINERALS 1 TAB TABLET GT SCH (08:41)
[2019-01-28] MEDS: ACETAMINOPHEN 650 MG/20 ML UDC- SA PATIENTS-PAIN ONLY GT SCH ×2 (08:41→21:23)
[2019-01-28] MEDS: ZINC SULFATE 220 MG CAPSULE GT SCH (08:42)
[2019-01-28] MEDS: ASCORBIC ACID 500 MG TABLET GT SCH (08:42)
[2019-01-28] MEDS: Z GUARD REMEDY 2 OZ OINT TP SCH ×2 (09:00→22:05)
[2019-01-28] MEDS: ZINC OXIDE 30 GM TUBE TP SCH ×2 (09:00→22:05)
[2019-01-28] MEDS: THERAHONEY GEL 1.5 OZ TUBE TP SCH ×2 (09:00→22:05)
[2019-01-28] MEDS: CLOTRIMAZOLE 1% CREAM 24 GM TUBE TP SCH ×2 (09:00→22:05)
[2019-01-28] MEDS: GLUCERNA 1.2 1,000 ML BOTTLE GT PRN (11:09)
[2019-01-28 12:00] VITALS: BP 112/68
[2019-01-28 18:00] VITALS: BP 140/74
[2019-01-28 20:00] VITALS: BP 115/74
--- NOTE | 2019-01-28 20:22 | NUR ---
RT NOTES PT RECEIVED TRACHED ON COOL AEROSOL FIO2 28%. NO SIGNS OF RESP DISTRESS/SOB NOTED. AIRWAY PATENT AND SECURED. PT SUCTIONED. HHN TX GIVEN. NO ADVERSE REACTIONS NOTED. AMBUBAG AND SPARE TRACH AT HEAD OF BED. WILL CONT TO MONITOR. Addendum: 01/28/19 at 2207 by ERICK HATCH RT Amended: Links added.
[2019-01-28] MEDS: ATORVASTATIN 10 MG TABLET GT SCH (21:24)
[2019-01-28] MEDS: ENOXAPARIN SODIUM 40 MG/0.4 ML DISP.SYRIN SQ SCH (21:24)
[2019-01-28] MEDS: INSULIN GLARGINE, 100 UNIT/ML CARTRIDGE SQ SCH (22:05)
[2019-01-29 00:10] VITALS: BP 115/74
[2019-01-29] MEDS: ALBUTEROL FS 2.5 MG/3 ML VIAL.NEB NEB SCH ×4 (01:30→19:57)
[2019-01-29] MEDS: IPRATROPIUM NEB FS 0.5 MG/2.5 ML AMPUL.NEB NEB SCH ×4 (01:30→19:57)
[2019-01-29] MEDS: DILTIAZEM HCL 30 MG TABLET GT SCH ×4 (05:55→23:15)
[2019-01-29] MEDS: BLOOD SUGAR DIAGNOSTIC 1 EACH STRIP IN SCH ×4 (06:15→23:15)
[2019-01-29] MEDS: GLUCERNA 1.2 1,000 ML BOTTLE GT PRN (06:16)
[2019-01-29] MEDS: INSULIN ASPART/LISPRO 100 UNIT/ML CARTRIDGE SQ PRN ×4 (06:16→23:16)
[2019-01-29 06:43] VITALS: BP 120/66
[2019-01-29 07:53] VITALS: BP 144/76
[2019-01-29] MEDS: FERROUS SULFATE - FOR SA ONLY 330 MG/7.5 ML UDC GT SCH (08:38)
[2019-01-29] MEDS: DOCUSATE SODIUM LIQ 100 MG/10 ML UDC GT SCH ×2 (08:38→17:20)
[2019-01-29] MEDS: LEVETIRACETAM SOL (5 ML) 100 MG/ML UDC GT SCH ×2 (08:38→21:03)
[2019-01-29] MEDS: MULTIVIT W/MINERALS 1 TAB TABLET GT SCH (08:38)
[2019-01-29] MEDS: OMEPRAZOLE 20 MG CAPSULE.DR GT SCH (08:38)
[2019-01-29] MEDS: ACIDOPHILUS/BULGARICUS 1 EACH TAB.CHEW GT SCH ×2 (08:38→17:20)
[2019-01-29] MEDS: ASCORBIC ACID 500 MG TABLET GT SCH (08:39)
[2019-01-29] MEDS: ACETAMINOPHEN 650 MG/20 ML UDC- SA PATIENTS-PAIN ONLY GT SCH ×2 (08:39→21:03)
[2019-01-29] MEDS: ZINC SULFATE 220 MG CAPSULE GT SCH (08:39)
[2019-01-29] MEDS: HYDROGEN PEROXIDE 480 ML BOTTLE TP SCH ×2 (09:00→20:35)
[2019-01-29] MEDS: Z GUARD REMEDY 2 OZ OINT TP SCH ×2 (09:20→21:54)
[2019-01-29] MEDS: ZINC OXIDE 30 GM TUBE TP SCH ×2 (09:20→21:54)
[2019-01-29] MEDS: THERAHONEY GEL 1.5 OZ TUBE TP SCH ×2 (09:20→21:54)
[2019-01-29] MEDS: CLOTRIMAZOLE 1% CREAM 24 GM TUBE TP SCH ×2 (09:20→21:54)
--- NOTE | 2019-01-29 10:15 | NUR ---
January INTERDISCIPLINARY PLAN OF CARE CONFERENCE was held today. The patients responsible republican/ Kelly Wong [phone] was not able to attend. Charge nurse discussed F/C discontinued on 01/04/19; Abreva cream ordered for R lower lip sore; and family declined for Flu vaccine. Dr. Capone and Interdisciplinary team discussed the plan of care in detail. Current orders as well as treatments and medications were reviewed. Please see other disciplines IDT notes for further details. Addendum: 01/31/19 at 1131 by LUIS ALBERTO NARAYANAN Late Entry for 01/25/17
[2019-01-29 12:00] VITALS: BP 133/72
[2019-01-29 18:12] VITALS: BP 128/85
[2019-01-29 20:36] VITALS: BP 131/73
[2019-01-29] MEDS: ENOXAPARIN SODIUM 40 MG/0.4 ML DISP.SYRIN SQ SCH (21:04)
[2019-01-29] MEDS: ATORVASTATIN 10 MG TABLET GT SCH (21:04)
--- NOTE | 2019-01-29 21:37 | NUR ---
RT NOTE PT RECEIVED ON COOL AEROSOL @ 28%. AMBU BAG/BACK UP TRACH @ BEDSIDE. TX GIVEN, NO ADVERSE REACTIONS NOTED. SX DONE, TRACH SECURED AND PATENT. NO SOB NOTED. WATER LEVEL GOOD. WILL MONITOR T/O SHIFT. Addendum: 01/29/19 at 2138 by GIULIA BACON RT Amended: Links added.
[2019-01-29] MEDS: INSULIN GLARGINE, 100 UNIT/ML CARTRIDGE SQ SCH (21:55)
[2019-01-30] VITALS: BP 126/70
[2019-01-30] MEDS: GLUCERNA 1.2 1,000 ML BOTTLE GT PRN ×2 (01:23→17:43)
[2019-01-30] MEDS: ALBUTEROL FS 2.5 MG/3 ML VIAL.NEB NEB SCH ×4 (01:59→19:33)
[2019-01-30] MEDS: IPRATROPIUM NEB FS 0.5 MG/2.5 ML AMPUL.NEB NEB SCH ×4 (01:59→19:33)
[2019-01-30] MEDS: DILTIAZEM HCL 30 MG TABLET GT SCH ×4 (05:51→23:35)
[2019-01-30 06:00] VITALS: BP 130/70
[2019-01-30] MEDS: BLOOD SUGAR DIAGNOSTIC 1 EACH STRIP IN SCH ×4 (06:26→23:35)
[2019-01-30] MEDS: INSULIN ASPART/LISPRO 100 UNIT/ML CARTRIDGE SQ PRN ×3 (06:27→23:37)
[2019-01-30 07:34] VITALS: BP 130/64
[2019-01-30] MEDS: DOCUSATE SODIUM LIQ 100 MG/10 ML UDC GT SCH ×2 (08:49→17:09)
[2019-01-30] MEDS: FERROUS SULFATE - FOR SA ONLY 330 MG/7.5 ML UDC GT SCH (08:49)
[2019-01-30] MEDS: LEVETIRACETAM SOL (5 ML) 100 MG/ML UDC GT SCH ×2 (08:49→21:04)
[2019-01-30] MEDS: MULTIVIT W/MINERALS 1 TAB TABLET GT SCH (08:50)
[2019-01-30] MEDS: ACETAMINOPHEN 650 MG/20 ML UDC- SA PATIENTS-PAIN ONLY GT SCH ×2 (08:50→21:04)
[2019-01-30] MEDS: ASCORBIC ACID 500 MG TABLET GT SCH (08:50)
[2019-01-30] MEDS: ACIDOPHILUS/BULGARICUS 1 EACH TAB.CHEW GT SCH ×2 (08:50→17:09)
[2019-01-30] MEDS: ZINC SULFATE 220 MG CAPSULE GT SCH (08:50)
[2019-01-30] MEDS: OMEPRAZOLE 20 MG CAPSULE.DR GT SCH (08:50)
[2019-01-30] MEDS: THERAHONEY GEL 1.5 OZ TUBE TP SCH ×2 (09:00→21:47)
[2019-01-30] MEDS: HYDROGEN PEROXIDE 480 ML BOTTLE TP SCH ×2 (09:00→21:00)
[2019-01-30] MEDS: CLOTRIMAZOLE 1% CREAM 24 GM TUBE TP SCH ×2 (09:00→21:47)
[2019-01-30] MEDS: ZINC OXIDE 30 GM TUBE TP SCH ×2 (09:00→21:47)
[2019-01-30] MEDS: Z GUARD REMEDY 2 OZ OINT TP SCH ×2 (09:00→21:47)
[2019-01-30 12:00] VITALS: BP 128/60
[2019-01-30 18:36] VITALS: BP 122/74
[2019-01-30] MEDS: ATORVASTATIN 10 MG TABLET GT SCH (21:05)
[2019-01-30] MEDS: ENOXAPARIN SODIUM 40 MG/0.4 ML DISP.SYRIN SQ SCH (21:05)
[2019-01-30] MEDS: INSULIN GLARGINE, 100 UNIT/ML CARTRIDGE SQ SCH (21:32)
[2019-01-30 22:24] VITALS: BP 132/94
[2019-01-31 00:34] VITALS: BP 128/78
[2019-01-31] MEDS: IPRATROPIUM NEB FS 0.5 MG/2.5 ML AMPUL.NEB NEB SCH ×4 (01:11→19:50)
[2019-01-31] MEDS: ALBUTEROL FS 2.5 MG/3 ML VIAL.NEB NEB SCH ×4 (01:11→19:50)
[2019-01-31] MEDS: DILTIAZEM HCL 30 MG TABLET GT SCH ×4 (05:35→23:24)
[2019-01-31] MEDS: BLOOD SUGAR DIAGNOSTIC 1 EACH STRIP IN SCH ×4 (05:37→23:24)
[2019-01-31] MEDS: INSULIN ASPART/LISPRO 100 UNIT/ML CARTRIDGE SQ PRN ×4 (05:38→23:26)
[2019-01-31 06:17] VITALS: BP 120/60
[2019-01-31 07:31] VITALS: BP 124/65
[2019-01-31] MEDS: HYDROGEN PEROXIDE 480 ML BOTTLE TP SCH ×2 (08:19→20:45)
[2019-01-31] MEDS: ZINC OXIDE 30 GM TUBE TP SCH ×2 (09:00→20:46)
[2019-01-31] MEDS: THERAHONEY GEL 1.5 OZ TUBE TP SCH ×2 (09:00→20:45)
[2019-01-31] MEDS: Z GUARD REMEDY 2 OZ OINT TP SCH ×2 (09:00→20:45)
[2019-01-31] MEDS: CLOTRIMAZOLE 1% CREAM 24 GM TUBE TP SCH ×2 (09:00→20:45)
[2019-01-31] MEDS: LEVETIRACETAM SOL (5 ML) 100 MG/ML UDC GT SCH ×2 (09:40→20:45)
[2019-01-31] MEDS: ACIDOPHILUS/BULGARICUS 1 EACH TAB.CHEW GT SCH ×2 (09:40→17:08)
[2019-01-31] MEDS: OMEPRAZOLE 20 MG CAPSULE.DR GT SCH (09:40)
[2019-01-31] MEDS: ZINC SULFATE 220 MG CAPSULE GT SCH (09:40)
[2019-01-31] MEDS: FERROUS SULFATE - FOR SA ONLY 330 MG/7.5 ML UDC GT SCH (09:40)
[2019-01-31] MEDS: MULTIVIT W/MINERALS 1 TAB TABLET GT SCH (09:40)
[2019-01-31] MEDS: DOCUSATE SODIUM LIQ 100 MG/10 ML UDC GT SCH ×2 (09:40→17:08)
[2019-01-31] MEDS: ASCORBIC ACID 500 MG TABLET GT SCH (09:40)
[2019-01-31] MEDS: ACETAMINOPHEN 650 MG/20 ML UDC- SA PATIENTS-PAIN ONLY GT SCH ×2 (09:40→20:45)
--- NOTE | 2019-01-31 11:31 | NUR ---
Charge Nurse, Farzaneh informed ORACIO that Brayden, a social media marketer from [place] [employer] was visiting the pt. to conduct a check-in that verifies how the pt. is doing and assess that the conservator is involved and supportive. ORACIO attempted to meet with Brayden but he had already left.
[2019-01-31 12:00] VITALS: BP 128/78
[2019-01-31] MEDS: GLUCERNA 1.2 1,000 ML BOTTLE GT PRN (13:26)
--- NOTE | 2019-01-31 14:41 | NUR ---
ORACIO contacted grain elevator motor starter office to schedule apt. with Dr. Saldana [phone] and spoke to Marisol. Per [facility], Dr. Saldana is available to service the pt. tomorrow 02/01/19 after 10 am. ORACIO informed charge nurse and patients daughter, Kelly [phone] who was agreeable to plan. ORACIO faxed residents face sheet to FAX: [phone] and received completed fax receipt.
[2019-01-31 18:38] VITALS: BP 133/74
--- NOTE | 2019-01-31 20:30 | NUR ---
Seen and examined by MILLY Bender no new order.
[2019-01-31] MEDS: ENOXAPARIN SODIUM 40 MG/0.4 ML DISP.SYRIN SQ SCH (20:45)
[2019-01-31] MEDS: ATORVASTATIN 10 MG TABLET GT SCH (21:34)
[2019-01-31] MEDS: INSULIN GLARGINE, 100 UNIT/ML CARTRIDGE SQ SCH (21:34)
[2019-01-31 22:34] VITALS: BP 117/51
[2019-02-01 00:32] VITALS: BP 129/76
[2019-02-01] MEDS: IPRATROPIUM NEB FS 0.5 MG/2.5 ML AMPUL.NEB NEB SCH ×4 (01:47→19:45)
[2019-02-01] MEDS: ALBUTEROL FS 2.5 MG/3 ML VIAL.NEB NEB SCH ×4 (01:47→19:45)
[2019-02-01] MEDS: GLUCERNA 1.2 1,000 ML BOTTLE GT PRN (05:09)
[2019-02-01] MEDS: DILTIAZEM HCL 30 MG TABLET GT SCH ×4 (05:09→23:50)
[2019-02-01] MEDS: INSULIN ASPART/LISPRO 100 UNIT/ML CARTRIDGE SQ PRN ×4 (05:39→23:51)
[2019-02-01] MEDS: BLOOD SUGAR DIAGNOSTIC 1 EACH STRIP IN SCH ×4 (05:39→23:50)
[2019-02-01 06:24] VITALS: BP 144/77
[2019-02-01 07:42] VITALS: BP 120/60
[2019-02-01] MEDS: ACIDOPHILUS/BULGARICUS 1 EACH TAB.CHEW GT SCH ×2 (08:44→17:41)
[2019-02-01] MEDS: ZINC SULFATE 220 MG CAPSULE GT SCH (08:44)
[2019-02-01] MEDS: OMEPRAZOLE 20 MG CAPSULE.DR GT SCH (08:44)
[2019-02-01] MEDS: LEVETIRACETAM SOL (5 ML) 100 MG/ML UDC GT SCH ×2 (08:44→20:49)
[2019-02-01] MEDS: FERROUS SULFATE - FOR SA ONLY 330 MG/7.5 ML UDC GT SCH (08:44)
[2019-02-01] MEDS: DOCUSATE SODIUM LIQ 100 MG/10 ML UDC GT SCH ×2 (08:44→17:41)
[2019-02-01] MEDS: ASCORBIC ACID 500 MG TABLET GT SCH (08:44)
[2019-02-01] MEDS: MULTIVIT W/MINERALS 1 TAB TABLET GT SCH (08:44)
[2019-02-01] MEDS: ACETAMINOPHEN 650 MG/20 ML UDC- SA PATIENTS-PAIN ONLY GT SCH ×2 (08:45→20:49)
[2019-02-01] MEDS: HYDROGEN PEROXIDE 480 ML BOTTLE TP SCH ×2 (09:28→19:45)
[2019-02-01] MEDS: THERAHONEY GEL 1.5 OZ TUBE TP SCH ×2 (10:30→20:50)
[2019-02-01] MEDS: Z GUARD REMEDY 2 OZ OINT TP SCH ×2 (10:30→20:49)
[2019-02-01] MEDS: ZINC OXIDE 30 GM TUBE TP SCH ×2 (10:30→20:50)
[2019-02-01] MEDS: CLOTRIMAZOLE 1% CREAM 24 GM TUBE TP SCH ×2 (10:30→20:49)
[2019-02-01 12:00] VITALS: BP 131/90
--- NOTE | 2019-02-01 14:43 | NUR ---
The resident had their optometry exam with today. No new orders. ORACIO informed pt.'s daughter, Kelly Wong through e-mail (per her request), that Kelly may call ORACIO for further details.
--- NOTE | 2019-02-01 17:22 | NUR ---
Pt receive stable on 28% FiO2 cool aerosol via T-bar, trach patent and secured, all tx given and no adverse reaction observe. Will continue to monitor. Addendum: 02/01/19 at 1722 by BEN FOOTE RT Amended: Links added.
[2019-02-01 18:41] VITALS: BP 137/74
--- NOTE | 2019-02-01 19:55 | NUR ---
RT NOTE: RECEIVED TRACH PT ON COOL AEROSOL. AMBU BAG @ BEDSIDE. Q6 BREATHING TX GIVEN PER MD ORDERS WITH NO ADVERSE REACTION NOTED. SX DONE PRN. TRACH PATENT AND SECURED. TRACH CARE DONE. NO RESP DISTRESS NOTED AT THIS TIME. WILL CONTINUE TO MONITOR PT Addendum: 02/02/19 at 0517 by BECKY DIALLO RT Amended: Links added.
[2019-02-01 20:23] VITALS: BP 132/93
[2019-02-01] MEDS: ENOXAPARIN SODIUM 40 MG/0.4 ML DISP.SYRIN SQ SCH (20:49)
[2019-02-01] MEDS: INSULIN GLARGINE, 100 UNIT/ML CARTRIDGE SQ SCH (21:12)
[2019-02-01] MEDS: ATORVASTATIN 10 MG TABLET GT SCH (21:12)
[2019-02-02 00:05] VITALS: BP 129/87
[2019-02-02] MEDS: ALBUTEROL FS 2.5 MG/3 ML VIAL.NEB NEB SCH ×4 (01:47→19:43)
[2019-02-02] MEDS: IPRATROPIUM NEB FS 0.5 MG/2.5 ML AMPUL.NEB NEB SCH ×4 (01:47→19:43)
[2019-02-02] MEDS: BLOOD SUGAR DIAGNOSTIC 1 EACH STRIP IN SCH ×4 (05:37→23:12)
[2019-02-02] MEDS: DILTIAZEM HCL 30 MG TABLET GT SCH ×4 (05:37→23:12)
[2019-02-02] MEDS: INSULIN ASPART/LISPRO 100 UNIT/ML CARTRIDGE SQ PRN ×4 (05:38→23:13)
[2019-02-02] MEDS: GLUCERNA 1.2 1,000 ML BOTTLE GT PRN (05:38)
[2019-02-02 06:16] VITALS: BP 132/81
[2019-02-02 07:44] VITALS: BP 125/72
[2019-02-02] MEDS: ACETAMINOPHEN 650 MG/20 ML UDC- SA PATIENTS-PAIN ONLY GT SCH ×2 (08:31→20:26)
[2019-02-02] MEDS: DOCUSATE SODIUM LIQ 100 MG/10 ML UDC GT SCH ×2 (08:31→17:54)
[2019-02-02] MEDS: FERROUS SULFATE - FOR SA ONLY 330 MG/7.5 ML UDC GT SCH (08:31)
[2019-02-02] MEDS: MULTIVIT W/MINERALS 1 TAB TABLET GT SCH (08:31)
[2019-02-02] MEDS: ACIDOPHILUS/BULGARICUS 1 EACH TAB.CHEW GT SCH ×2 (08:31→17:54)
[2019-02-02] MEDS: LEVETIRACETAM SOL (5 ML) 100 MG/ML UDC GT SCH ×2 (08:31→20:26)
[2019-02-02] MEDS: OMEPRAZOLE 20 MG CAPSULE.DR GT SCH (08:31)
[2019-02-02] MEDS: ZINC SULFATE 220 MG CAPSULE GT SCH (08:32)
[2019-02-02] MEDS: ASCORBIC ACID 500 MG TABLET GT SCH (08:32)
[2019-02-02] MEDS: CLOTRIMAZOLE 1% CREAM 24 GM TUBE TP SCH ×2 (09:00→20:27)
[2019-02-02] MEDS: Z GUARD REMEDY 2 OZ OINT TP SCH ×2 (09:00→20:27)
[2019-02-02] MEDS: THERAHONEY GEL 1.5 OZ TUBE TP SCH ×2 (09:00→20:27)
[2019-02-02] MEDS: ZINC OXIDE 30 GM TUBE TP SCH ×2 (09:00→20:27)
[2019-02-02] MEDS: HYDROGEN PEROXIDE 480 ML BOTTLE TP SCH ×2 (09:02→19:43)
[2019-02-02 12:00] VITALS: BP 114/76
[2019-02-02 18:00] VITALS: BP 134/76
[2019-02-02 20:22] VITALS: BP 146/60
[2019-02-02] MEDS: ENOXAPARIN SODIUM 40 MG/0.4 ML DISP.SYRIN SQ SCH (20:27)
[2019-02-02] MEDS: ATORVASTATIN 10 MG TABLET GT SCH (21:24)
[2019-02-02] MEDS: INSULIN GLARGINE, 100 UNIT/ML CARTRIDGE SQ SCH (21:24)
[2019-02-03 00:03] VITALS: BP 140/68
[2019-02-03] MEDS: IPRATROPIUM NEB FS 0.5 MG/2.5 ML AMPUL.NEB NEB SCH ×4 (01:08→20:05)
[2019-02-03] MEDS: ALBUTEROL FS 2.5 MG/3 ML VIAL.NEB NEB SCH ×4 (01:08→20:05)
--- NOTE | 2019-02-03 04:03 | NUR ---
RT NOTE RECEIVED PT WITH THE NOTED CONDITION. PT [place]. TX WELL. WILL CONTINUE WITH CURRENT PLAN OF CARE. Addendum: 02/03/19 at 0403 by MAURICIO CAPUTO RT Amended: Links added.
[2019-02-03] MEDS: DILTIAZEM HCL 30 MG TABLET GT SCH ×3 (05:20→17:24)
[2019-02-03] MEDS: GLUCERNA 1.2 1,000 ML BOTTLE GT PRN ×2 (05:20→22:18)
[2019-02-03] MEDS: BLOOD SUGAR DIAGNOSTIC 1 EACH STRIP IN SCH ×3 (05:36→17:24)
[2019-02-03] MEDS: INSULIN ASPART/LISPRO 100 UNIT/ML CARTRIDGE SQ PRN ×2 (05:36→12:09)
[2019-02-03 06:17] VITALS: BP 120/76
[2019-02-03 07:51] VITALS: BP 140/75
[2019-02-03] MEDS: HYDROGEN PEROXIDE 480 ML BOTTLE TP SCH ×2 (09:00→20:05)
[2019-02-03] MEDS: ACIDOPHILUS/BULGARICUS 1 EACH TAB.CHEW GT SCH ×2 (09:31→16:21)
[2019-02-03] MEDS: FERROUS SULFATE - FOR SA ONLY 330 MG/7.5 ML UDC GT SCH (09:31)
[2019-02-03] MEDS: OMEPRAZOLE 20 MG CAPSULE.DR GT SCH (09:31)
[2019-02-03] MEDS: DOCUSATE SODIUM LIQ 100 MG/10 ML UDC GT SCH ×2 (09:31→16:21)
[2019-02-03] MEDS: LEVETIRACETAM SOL (5 ML) 100 MG/ML UDC GT SCH ×2 (09:31→21:29)
[2019-02-03] MEDS: MULTIVIT W/MINERALS 1 TAB TABLET GT SCH (09:31)
[2019-02-03] MEDS: ASCORBIC ACID 500 MG TABLET GT SCH (09:32)
[2019-02-03] MEDS: THERAHONEY GEL 1.5 OZ TUBE TP SCH ×2 (09:32→21:30)
[2019-02-03] MEDS: Z GUARD REMEDY 2 OZ OINT TP SCH ×2 (09:32→21:30)
[2019-02-03] MEDS: ACETAMINOPHEN 650 MG/20 ML UDC- SA PATIENTS-PAIN ONLY GT SCH ×2 (09:32→21:29)
[2019-02-03] MEDS: ZINC SULFATE 220 MG CAPSULE GT SCH (09:32)
[2019-02-03] MEDS: ZINC OXIDE 30 GM TUBE TP SCH ×2 (09:32→21:30)
[2019-02-03] MEDS: CLOTRIMAZOLE 1% CREAM 24 GM TUBE TP SCH ×2 (09:32→21:30)
[2019-02-03 12:41] VITALS: BP 146/75
[2019-02-03 18:14] VITALS: BP 150/88
[2019-02-03 19:56] VITALS: BP 135/71
[2019-02-03] MEDS: ENOXAPARIN SODIUM 40 MG/0.4 ML DISP.SYRIN SQ SCH (21:30)
[2019-02-03] MEDS: ATORVASTATIN 10 MG TABLET GT SCH (21:30)
[2019-02-03] MEDS: INSULIN GLARGINE, 100 UNIT/ML CARTRIDGE SQ SCH (21:31)
[2019-02-04] VITALS: BP 142/86
[2019-02-04] MEDS: DILTIAZEM HCL 30 MG TABLET GT SCH ×5 (00:34→23:13)
[2019-02-04] MEDS: BLOOD SUGAR DIAGNOSTIC 1 EACH STRIP IN SCH ×5 (00:34→23:13)
[2019-02-04] MEDS: INSULIN ASPART/LISPRO 100 UNIT/ML CARTRIDGE SQ PRN ×5 (00:35→23:14)
[2019-02-04] MEDS: IPRATROPIUM NEB FS 0.5 MG/2.5 ML AMPUL.NEB NEB SCH ×4 (01:02→19:32)
[2019-02-04] MEDS: ALBUTEROL FS 2.5 MG/3 ML VIAL.NEB NEB SCH ×4 (01:02→19:32)
[2019-02-04 06:00] VITALS: BP 123/74
[2019-02-04 07:52] VITALS: BP 122/74
[2019-02-04] MEDS: LEVETIRACETAM SOL (5 ML) 100 MG/ML UDC GT SCH ×2 (08:25→20:44)
[2019-02-04] MEDS: OMEPRAZOLE 20 MG CAPSULE.DR GT SCH (08:25)
[2019-02-04] MEDS: MULTIVIT W/MINERALS 1 TAB TABLET GT SCH (08:25)
[2019-02-04] MEDS: DOCUSATE SODIUM LIQ 100 MG/10 ML UDC GT SCH ×2 (08:25→16:24)
[2019-02-04] MEDS: ACIDOPHILUS/BULGARICUS 1 EACH TAB.CHEW GT SCH ×2 (08:25→16:24)
[2019-02-04] MEDS: FERROUS SULFATE - FOR SA ONLY 330 MG/7.5 ML UDC GT SCH (08:25)
[2019-02-04] MEDS: ACETAMINOPHEN 650 MG/20 ML UDC- SA PATIENTS-PAIN ONLY GT SCH ×2 (08:26→20:45)
[2019-02-04] MEDS: ASCORBIC ACID 500 MG TABLET GT SCH (08:26)
[2019-02-04] MEDS: ZINC SULFATE 220 MG CAPSULE GT SCH (08:26)
[2019-02-04] MEDS: HYDROGEN PEROXIDE 480 ML BOTTLE TP SCH ×2 (09:00→21:15)
[2019-02-04] MEDS: Z GUARD REMEDY 2 OZ OINT TP SCH ×2 (09:45→21:38)
[2019-02-04 12:00] VITALS: BP 154/64
[2019-02-04] MEDS: GLUCERNA 1.2 1,000 ML BOTTLE GT PRN (16:52)
[2019-02-04 18:00] VITALS: BP 142/76
[2019-02-04 19:42] VITALS: BP 123/74
[2019-02-04] MEDS: ENOXAPARIN SODIUM 40 MG/0.4 ML DISP.SYRIN SQ SCH (20:45)
[2019-02-04] MEDS: THERAHONEY GEL 1.5 OZ TUBE TP SCH (21:38)
[2019-02-04] MEDS: ATORVASTATIN 10 MG TABLET GT SCH (21:38)
[2019-02-04] MEDS: ZINC OXIDE 30 GM TUBE TP SCH (21:38)
[2019-02-04] MEDS: CLOTRIMAZOLE 1% CREAM 24 GM TUBE TP SCH (21:38)
[2019-02-04] MEDS: INSULIN GLARGINE, 100 UNIT/ML CARTRIDGE SQ SCH (21:39)
[2019-02-05 00:25] VITALS: BP 120/70
[2019-02-05] MEDS: IPRATROPIUM NEB FS 0.5 MG/2.5 ML AMPUL.NEB NEB SCH ×4 (00:50→20:13)
[2019-02-05] MEDS: ALBUTEROL FS 2.5 MG/3 ML VIAL.NEB NEB SCH ×4 (00:50→20:13)
[2019-02-05] MEDS: BLOOD SUGAR DIAGNOSTIC 1 EACH STRIP IN SCH ×4 (06:06→23:18)
[2019-02-05] MEDS: DILTIAZEM HCL 30 MG TABLET GT SCH ×4 (06:06→23:18)
[2019-02-05] MEDS: INSULIN ASPART/LISPRO 100 UNIT/ML CARTRIDGE SQ PRN ×3 (06:07→23:18)
[2019-02-05 06:25] VITALS: BP 124/68
[2019-02-05 07:50] VITALS: BP 112/71
[2019-02-05] MEDS: OMEPRAZOLE 20 MG CAPSULE.DR GT SCH (08:40)
[2019-02-05] MEDS: ZINC SULFATE 220 MG CAPSULE GT SCH (08:40)
[2019-02-05] MEDS: ACIDOPHILUS/BULGARICUS 1 EACH TAB.CHEW GT SCH ×2 (08:40→16:29)
[2019-02-05] MEDS: ASCORBIC ACID 500 MG TABLET GT SCH (08:40)
[2019-02-05] MEDS: LEVETIRACETAM SOL (5 ML) 100 MG/ML UDC GT SCH ×2 (08:40→20:36)
[2019-02-05] MEDS: ACETAMINOPHEN 650 MG/20 ML UDC- SA PATIENTS-PAIN ONLY GT SCH ×2 (08:40→20:36)
[2019-02-05] MEDS: FERROUS SULFATE - FOR SA ONLY 330 MG/7.5 ML UDC GT SCH (08:40)
[2019-02-05] MEDS: DOCUSATE SODIUM LIQ 100 MG/10 ML UDC GT SCH ×2 (08:40→16:29)
[2019-02-05] MEDS: MULTIVIT W/MINERALS 1 TAB TABLET GT SCH (08:45)
[2019-02-05] MEDS: CLOTRIMAZOLE 1% CREAM 24 GM TUBE TP SCH ×2 (09:00→21:25)
[2019-02-05] MEDS: HYDROGEN PEROXIDE 480 ML BOTTLE TP SCH ×2 (09:00→21:00)
[2019-02-05] MEDS: THERAHONEY GEL 1.5 OZ TUBE TP SCH ×2 (09:00→21:25)
[2019-02-05] MEDS: Z GUARD REMEDY 2 OZ OINT TP SCH ×2 (09:00→21:25)
[2019-02-05] MEDS: ZINC OXIDE 30 GM TUBE TP SCH ×2 (09:00→21:26)
[2019-02-05] MEDS: GLUCERNA 1.2 1,000 ML BOTTLE GT PRN (11:42)
[2019-02-05 18:37] VITALS: BP 135/75
[2019-02-05 20:03] VITALS: BP 108/56
[2019-02-05] MEDS: ENOXAPARIN SODIUM 40 MG/0.4 ML DISP.SYRIN SQ SCH (20:37)
[2019-02-05] MEDS: ATORVASTATIN 10 MG TABLET GT SCH (21:26)
[2019-02-05] MEDS: INSULIN GLARGINE, 100 UNIT/ML CARTRIDGE SQ SCH (21:42)
[2019-02-06] VITALS: BP 112/58
[2019-02-06] MEDS: ALBUTEROL FS 2.5 MG/3 ML VIAL.NEB NEB SCH ×4 (01:30→20:18)
[2019-02-06] MEDS: IPRATROPIUM NEB FS 0.5 MG/2.5 ML AMPUL.NEB NEB SCH ×4 (01:30→20:18)
[2019-02-06] MEDS: DILTIAZEM HCL 30 MG TABLET GT SCH ×4 (05:38→23:22)
[2019-02-06] MEDS: GLUCERNA 1.2 1,000 ML BOTTLE GT PRN ×2 (05:38→21:25)
[2019-02-06] MEDS: BLOOD SUGAR DIAGNOSTIC 1 EACH STRIP IN SCH ×4 (05:51→23:22)
[2019-02-06] MEDS: INSULIN ASPART/LISPRO 100 UNIT/ML CARTRIDGE SQ PRN ×4 (05:52→23:23)
[2019-02-06 06:07] VITALS: BP 118/60
[2019-02-06 07:54] VITALS: BP 113/60
[2019-02-06] MEDS: HYDROGEN PEROXIDE 480 ML BOTTLE TP SCH ×2 (08:18→21:00)
[2019-02-06] MEDS: OMEPRAZOLE 20 MG CAPSULE.DR GT SCH (09:20)
[2019-02-06] MEDS: ACETAMINOPHEN 650 MG/20 ML UDC- SA PATIENTS-PAIN ONLY GT SCH ×2 (09:20→20:51)
[2019-02-06] MEDS: ACIDOPHILUS/BULGARICUS 1 EACH TAB.CHEW GT SCH ×2 (09:20→17:47)
[2019-02-06] MEDS: FERROUS SULFATE - FOR SA ONLY 330 MG/7.5 ML UDC GT SCH (09:20)
[2019-02-06] MEDS: LEVETIRACETAM SOL (5 ML) 100 MG/ML UDC GT SCH ×2 (09:20→20:51)
[2019-02-06] MEDS: DOCUSATE SODIUM LIQ 100 MG/10 ML UDC GT SCH ×2 (09:20→17:47)
[2019-02-06] MEDS: MULTIVIT W/MINERALS 1 TAB TABLET GT SCH (09:20)
[2019-02-06] MEDS: CLOTRIMAZOLE 1% CREAM 24 GM TUBE TP SCH ×2 (09:21→21:23)
[2019-02-06] MEDS: THERAHONEY GEL 1.5 OZ TUBE TP SCH ×2 (09:21→21:23)
[2019-02-06] MEDS: ZINC SULFATE 220 MG CAPSULE GT SCH (09:21)
[2019-02-06] MEDS: ZINC OXIDE 30 GM TUBE TP SCH ×2 (09:21→21:23)
[2019-02-06] MEDS: Z GUARD REMEDY 2 OZ OINT TP SCH ×2 (09:21→21:23)
[2019-02-06] MEDS: ASCORBIC ACID 500 MG TABLET GT SCH (09:21)
[2019-02-06 12:00] VITALS: BP 137/79
[2019-02-06 18:24] VITALS: BP 132/79
[2019-02-06] MEDS: ENOXAPARIN SODIUM 40 MG/0.4 ML DISP.SYRIN SQ SCH (20:52)
[2019-02-06] MEDS: ATORVASTATIN 10 MG TABLET GT SCH (21:23)
[2019-02-06] MEDS: INSULIN GLARGINE, 100 UNIT/ML CARTRIDGE SQ SCH (21:24)
[2019-02-07 00:28] VITALS: BP 126/70
[2019-02-07] MEDS: IPRATROPIUM NEB FS 0.5 MG/2.5 ML AMPUL.NEB NEB SCH ×4 (02:11→19:50)
[2019-02-07] MEDS: ALBUTEROL FS 2.5 MG/3 ML VIAL.NEB NEB SCH ×4 (02:11→19:50)
[2019-02-07] MEDS: DILTIAZEM HCL 30 MG TABLET GT SCH ×3 (05:44→17:08)
[2019-02-07] MEDS: BLOOD SUGAR DIAGNOSTIC 1 EACH STRIP IN SCH ×3 (06:00→17:08)
[2019-02-07] MEDS: INSULIN ASPART/LISPRO 100 UNIT/ML CARTRIDGE SQ PRN ×3 (06:01→17:08)
[2019-02-07 06:22] VITALS: BP 130/72
[2019-02-07 07:24] VITALS: BP 128/76
[2019-02-07] MEDS: HYDROGEN PEROXIDE 480 ML BOTTLE TP SCH ×2 (08:12→20:43)
[2019-02-07] MEDS: ZINC OXIDE 30 GM TUBE TP SCH ×2 (09:36→21:31)
[2019-02-07] MEDS: THERAHONEY GEL 1.5 OZ TUBE TP SCH ×2 (09:36→21:31)
[2019-02-07] MEDS: LEVETIRACETAM SOL (5 ML) 100 MG/ML UDC GT SCH ×2 (09:36→21:30)
[2019-02-07] MEDS: DOCUSATE SODIUM LIQ 100 MG/10 ML UDC GT SCH ×2 (09:36→17:07)
[2019-02-07] MEDS: ACIDOPHILUS/BULGARICUS 1 EACH TAB.CHEW GT SCH ×2 (09:36→17:07)
[2019-02-07] MEDS: CLOTRIMAZOLE 1% CREAM 24 GM TUBE TP SCH ×2 (09:36→21:31)
[2019-02-07] MEDS: FERROUS SULFATE - FOR SA ONLY 330 MG/7.5 ML UDC GT SCH (09:36)
[2019-02-07] MEDS: Z GUARD REMEDY 2 OZ OINT TP SCH ×2 (09:36→21:31)
[2019-02-07] MEDS: ASCORBIC ACID 500 MG TABLET GT SCH (09:36)
[2019-02-07] MEDS: ZINC SULFATE 220 MG CAPSULE GT SCH (09:36)
[2019-02-07] MEDS: ACETAMINOPHEN 650 MG/20 ML UDC- SA PATIENTS-PAIN ONLY GT SCH ×2 (09:36→21:30)
[2019-02-07] MEDS: MULTIVIT W/MINERALS 1 TAB TABLET GT SCH (09:36)
[2019-02-07] MEDS: OMEPRAZOLE 20 MG CAPSULE.DR GT SCH (09:36)
[2019-02-07 12:00] VITALS: BP 149/86
[2019-02-07] MEDS: GLUCERNA 1.2 1,000 ML BOTTLE GT PRN (17:08)
[2019-02-07 18:13] VITALS: BP 125/77
[2019-02-07 20:45] VITALS: BP 115/78
[2019-02-07] MEDS: ENOXAPARIN SODIUM 40 MG/0.4 ML DISP.SYRIN SQ SCH (21:31)
[2019-02-07] MEDS: ATORVASTATIN 10 MG TABLET GT SCH (21:31)
[2019-02-07] MEDS: INSULIN GLARGINE, 100 UNIT/ML CARTRIDGE SQ SCH (21:34)
[2019-02-08] VITALS: BP 135/78
[2019-02-08] MEDS: BLOOD SUGAR DIAGNOSTIC 1 EACH STRIP IN SCH ×4 (00:23→17:33)
[2019-02-08] MEDS: DILTIAZEM HCL 30 MG TABLET GT SCH ×4 (00:23→17:33)
[2019-02-08] MEDS: INSULIN ASPART/LISPRO 100 UNIT/ML CARTRIDGE SQ PRN ×4 (00:24→17:34)
[2019-02-08] MEDS: IPRATROPIUM NEB FS 0.5 MG/2.5 ML AMPUL.NEB NEB SCH ×4 (01:46→19:31)
[2019-02-08] MEDS: ALBUTEROL FS 2.5 MG/3 ML VIAL.NEB NEB SCH ×4 (01:46→19:31)
[2019-02-08 06:00] VITALS: BP 140/75
[2019-02-08] MEDS: GLUCERNA 1.2 1,000 ML BOTTLE GT PRN (06:17)
[2019-02-08 07:23] VITALS: BP 140/74
[2019-02-08] MEDS: HYDROGEN PEROXIDE 480 ML BOTTLE TP SCH ×2 (07:27→21:09)
[2019-02-08] MEDS: ACIDOPHILUS/BULGARICUS 1 EACH TAB.CHEW GT SCH ×2 (09:45→17:32)
[2019-02-08] MEDS: DOCUSATE SODIUM LIQ 100 MG/10 ML UDC GT SCH ×2 (09:45→17:32)
[2019-02-08] MEDS: LEVETIRACETAM SOL (5 ML) 100 MG/ML UDC GT SCH ×2 (09:45→21:05)
[2019-02-08] MEDS: MULTIVIT W/MINERALS 1 TAB TABLET GT SCH (09:45)
[2019-02-08] MEDS: OMEPRAZOLE 20 MG CAPSULE.DR GT SCH (09:45)
[2019-02-08] MEDS: FERROUS SULFATE - FOR SA ONLY 330 MG/7.5 ML UDC GT SCH (09:45)
[2019-02-08] MEDS: ZINC SULFATE 220 MG CAPSULE GT SCH (09:46)
[2019-02-08] MEDS: Z GUARD REMEDY 2 OZ OINT TP SCH ×2 (09:46→21:09)
[2019-02-08] MEDS: THERAHONEY GEL 1.5 OZ TUBE TP SCH ×2 (09:46→21:09)
[2019-02-08] MEDS: CLOTRIMAZOLE 1% CREAM 24 GM TUBE TP SCH ×2 (09:46→21:09)
[2019-02-08] MEDS: ZINC OXIDE 30 GM TUBE TP SCH ×2 (09:46→21:09)
[2019-02-08] MEDS: ASCORBIC ACID 500 MG TABLET GT SCH (09:46)
[2019-02-08] MEDS: ACETAMINOPHEN 650 MG/20 ML UDC- SA PATIENTS-PAIN ONLY GT SCH ×3 (09:46→22:05)
--- NOTE | 2019-02-08 11:45 | NUR ---
ORACIO received an email from pt.'s family, Kelly Wong asking for 's phone number. ORACIO provided Dr. Teran office number [phone]. Family appreciated the information.
[2019-02-08 12:00] VITALS: BP 148/81
[2019-02-08 18:54] VITALS: BP 131/77
[2019-02-08 20:21] VITALS: BP 134/74
[2019-02-08] MEDS: ENOXAPARIN SODIUM 40 MG/0.4 ML DISP.SYRIN SQ SCH (21:09)
[2019-02-08] MEDS: ATORVASTATIN 10 MG TABLET GT SCH (21:10)
[2019-02-08] MEDS: INSULIN GLARGINE, 100 UNIT/ML CARTRIDGE SQ SCH (22:00)
[2019-02-09] VITALS: BP 130/73
[2019-02-09] MEDS: DILTIAZEM HCL 30 MG TABLET GT SCH ×4 (00:04→17:08)
[2019-02-09] MEDS: BLOOD SUGAR DIAGNOSTIC 1 EACH STRIP IN SCH ×5 (00:40→23:29)
[2019-02-09] MEDS: INSULIN ASPART/LISPRO 100 UNIT/ML CARTRIDGE SQ PRN ×4 (00:43→23:30)
[2019-02-09] MEDS: IPRATROPIUM NEB FS 0.5 MG/2.5 ML AMPUL.NEB NEB SCH ×4 (01:34→19:44)
[2019-02-09] MEDS: ALBUTEROL FS 2.5 MG/3 ML VIAL.NEB NEB SCH ×4 (01:34→19:44)
[2019-02-09] MEDS: GLUCERNA 1.2 1,000 ML BOTTLE GT PRN (04:44)
--- NOTE | 2019-02-09 05:26 | NUR ---
RT Patient was received on 28% cool aerosol.Patient stable throughout the shift. Trach is patent and secured.Will continue to monitor. Addendum: 02/09/19 at 0526 by SHYANN BARRETT RT Amended: Links added.
[2019-02-09 06:50] VITALS: BP 128/75
[2019-02-09] MEDS: HYDROGEN PEROXIDE 480 ML BOTTLE TP SCH ×2 (07:34→20:52)
[2019-02-09 07:40] VITALS: BP 134/81
[2019-02-09] MEDS: DOCUSATE SODIUM LIQ 100 MG/10 ML UDC GT SCH ×2 (08:00→17:08)
[2019-02-09] MEDS: ACIDOPHILUS/BULGARICUS 1 EACH TAB.CHEW GT SCH ×2 (08:00→17:08)
[2019-02-09] MEDS: FERROUS SULFATE - FOR SA ONLY 330 MG/7.5 ML UDC GT SCH (08:00)
[2019-02-09] MEDS: LEVETIRACETAM SOL (5 ML) 100 MG/ML UDC GT SCH ×2 (08:00→20:52)
[2019-02-09] MEDS: OMEPRAZOLE 20 MG CAPSULE.DR GT SCH (08:09)
[2019-02-09] MEDS: ZINC SULFATE 220 MG CAPSULE GT SCH (08:09)
[2019-02-09] MEDS: ASCORBIC ACID 500 MG TABLET GT SCH (08:09)
[2019-02-09] MEDS: MULTIVIT W/MINERALS 1 TAB TABLET GT SCH (08:09)
[2019-02-09] MEDS: THERAHONEY GEL 1.5 OZ TUBE TP SCH ×2 (09:00→20:52)
[2019-02-09] MEDS: CLOTRIMAZOLE 1% CREAM 24 GM TUBE TP SCH ×2 (09:00→20:52)
[2019-02-09] MEDS: Z GUARD REMEDY 2 OZ OINT TP SCH ×2 (09:00→20:52)
[2019-02-09] MEDS: ZINC OXIDE 30 GM TUBE TP SCH ×2 (09:00→20:52)
[2019-02-09 12:00] VITALS: BP 146/81
[2019-02-09 18:00] VITALS: BP 159/87
[2019-02-09 19:42] VITALS: BP 121/77
[2019-02-09] MEDS: ENOXAPARIN SODIUM 40 MG/0.4 ML DISP.SYRIN SQ SCH (20:52)
[2019-02-09] MEDS: INSULIN GLARGINE, 100 UNIT/ML CARTRIDGE SQ SCH (22:02)
[2019-02-09] MEDS: ATORVASTATIN 10 MG TABLET GT SCH (22:02)
[2019-02-10] VITALS: BP 133/68
[2019-02-10] MEDS: IPRATROPIUM NEB FS 0.5 MG/2.5 ML AMPUL.NEB NEB SCH ×4 (01:33→19:35)
[2019-02-10] MEDS: ALBUTEROL FS 2.5 MG/3 ML VIAL.NEB NEB SCH ×4 (01:33→19:35)
--- NOTE | 2019-02-10 03:57 | NUR ---
Pt receive stable on 28% FiO2, spare trach and ambu bag at bedside , trach patent and secured, will continue to monitor Addendum: 02/10/19 at 0357 by BEN FOOTE RT Amended: Links added.
[2019-02-10] MEDS: DILTIAZEM HCL 30 MG TABLET GT SCH ×4 (05:47→17:46)
[2019-02-10] MEDS: BLOOD SUGAR DIAGNOSTIC 1 EACH STRIP IN SCH ×3 (05:47→17:46)
[2019-02-10] MEDS: INSULIN ASPART/LISPRO 100 UNIT/ML CARTRIDGE SQ PRN ×3 (05:48→17:50)
[2019-02-10 06:00] VITALS: BP 145/72
[2019-02-10 07:32] VITALS: BP 120/83
[2019-02-10] MEDS: DOCUSATE SODIUM LIQ 100 MG/10 ML UDC GT SCH ×2 (09:00→16:36)
[2019-02-10] MEDS: CLOTRIMAZOLE 1% CREAM 24 GM TUBE TP SCH ×2 (09:00→20:10)
[2019-02-10] MEDS: Z GUARD REMEDY 2 OZ OINT TP SCH ×2 (09:00→20:11)
[2019-02-10] MEDS: ZINC OXIDE 30 GM TUBE TP SCH ×2 (09:00→20:11)
[2019-02-10] MEDS: MULTIVIT W/MINERALS 1 TAB TABLET GT SCH (09:00)
[2019-02-10] MEDS: THERAHONEY GEL 1.5 OZ TUBE TP SCH ×2 (09:00→20:11)
[2019-02-10] MEDS: ACIDOPHILUS/BULGARICUS 1 EACH TAB.CHEW GT SCH ×2 (09:00→16:36)
[2019-02-10] MEDS: LEVETIRACETAM SOL (5 ML) 100 MG/ML UDC GT SCH ×2 (09:00→20:08)
[2019-02-10] MEDS: ASCORBIC ACID 500 MG TABLET GT SCH (09:00)
[2019-02-10] MEDS: ZINC SULFATE 220 MG CAPSULE GT SCH (09:00)
[2019-02-10] MEDS: ACETAMINOPHEN 650 MG/20 ML UDC- SA PATIENTS-PAIN ONLY GT SCH ×2 (09:00→20:09)
[2019-02-10] MEDS: HYDROGEN PEROXIDE 480 ML BOTTLE TP SCH ×2 (09:00→21:35)
[2019-02-10] MEDS: OMEPRAZOLE 20 MG CAPSULE.DR GT SCH (09:00)
[2019-02-10] MEDS: FERROUS SULFATE - FOR SA ONLY 330 MG/7.5 ML UDC GT SCH (09:00)
[2019-02-10 12:00] VITALS: BP 125/80
[2019-02-10] MEDS: GLUCERNA 1.2 1,000 ML BOTTLE GT PRN (16:36)
[2019-02-10 18:13] VITALS: BP 145/84
[2019-02-10] MEDS: ENOXAPARIN SODIUM 40 MG/0.4 ML DISP.SYRIN SQ SCH (20:10)
[2019-02-10 20:28] VITALS: BP 151/86
[2019-02-10] MEDS: ATORVASTATIN 10 MG TABLET GT SCH (21:35)
[2019-02-10] MEDS: INSULIN GLARGINE, 100 UNIT/ML CARTRIDGE SQ SCH (21:35)
[2019-02-11] MEDS: DILTIAZEM HCL 30 MG TABLET GT SCH ×4 (00:27→17:29)
[2019-02-11] MEDS: BLOOD SUGAR DIAGNOSTIC 1 EACH STRIP IN SCH ×4 (00:27→17:29)
[2019-02-11] MEDS: INSULIN ASPART/LISPRO 100 UNIT/ML CARTRIDGE SQ PRN ×4 (00:29→17:30)
[2019-02-11 00:34] VITALS: BP 134/83
[2019-02-11] MEDS: IPRATROPIUM NEB FS 0.5 MG/2.5 ML AMPUL.NEB NEB SCH ×4 (01:27→20:20)
[2019-02-11] MEDS: ALBUTEROL FS 2.5 MG/3 ML VIAL.NEB NEB SCH ×4 (01:27→20:20)
[2019-02-11] MEDS: GLUCERNA 1.2 1,000 ML BOTTLE GT PRN (05:29)
[2019-02-11 06:14] VITALS: BP 130/76
[2019-02-11 07:43] VITALS: BP 115/67
[2019-02-11] MEDS: HYDROGEN PEROXIDE 480 ML BOTTLE TP SCH ×2 (09:00→20:20)
[2019-02-11] MEDS: FERROUS SULFATE - FOR SA ONLY 330 MG/7.5 ML UDC GT SCH (09:49)
[2019-02-11] MEDS: ACETAMINOPHEN 650 MG/20 ML UDC- SA PATIENTS-PAIN ONLY GT SCH ×2 (09:49→20:28)
[2019-02-11] MEDS: LEVETIRACETAM SOL (5 ML) 100 MG/ML UDC GT SCH ×2 (09:49→20:28)
[2019-02-11] MEDS: DOCUSATE SODIUM LIQ 100 MG/10 ML UDC GT SCH ×2 (09:49→17:29)
[2019-02-11] MEDS: ACIDOPHILUS/BULGARICUS 1 EACH TAB.CHEW GT SCH ×2 (09:49→17:29)
[2019-02-11] MEDS: OMEPRAZOLE 20 MG CAPSULE.DR GT SCH (09:49)
[2019-02-11] MEDS: MULTIVIT W/MINERALS 1 TAB TABLET GT SCH (09:49)
[2019-02-11] MEDS: ASCORBIC ACID 500 MG TABLET GT SCH (09:50)
[2019-02-11] MEDS: ZINC SULFATE 220 MG CAPSULE GT SCH (09:50)
[2019-02-11] MEDS: ZINC OXIDE 30 GM TUBE TP SCH ×2 (10:20→20:31)
[2019-02-11] MEDS: THERAHONEY GEL 1.5 OZ TUBE TP SCH ×2 (10:20→20:31)
[2019-02-11] MEDS: CLOTRIMAZOLE 1% CREAM 24 GM TUBE TP SCH ×2 (10:20→20:30)
[2019-02-11] MEDS: Z GUARD REMEDY 2 OZ OINT TP SCH ×2 (10:20→20:30)
--- NOTE | 2019-02-11 11:41 | NUR ---
ORACIO emailed the patients family (as is their preferrence) to remind them about the family support group taking place 02/22/19 from 11:00 am-12:00pm in [facility] conference room. Addendum: 02/19/19 at 1332 by LUIS ALBERTO NARAYANAN 02/20/19
[2019-02-11 12:00] VITALS: BP 124/60
[2019-02-11 18:50] VITALS: BP 156/85
[2019-02-11 20:22] VITALS: BP 145/75
[2019-02-11] MEDS: ENOXAPARIN SODIUM 40 MG/0.4 ML DISP.SYRIN SQ SCH (20:30)
[2019-02-11] MEDS: ATORVASTATIN 10 MG TABLET GT SCH (21:44)
[2019-02-11] MEDS: INSULIN GLARGINE, 100 UNIT/ML CARTRIDGE SQ SCH (21:45)
[2019-02-12] MEDS: DILTIAZEM HCL 30 MG TABLET GT SCH ×4 (00:02→17:29)
[2019-02-12] MEDS: BLOOD SUGAR DIAGNOSTIC 1 EACH STRIP IN SCH ×4 (00:02→17:30)
[2019-02-12] MEDS: GLUCERNA 1.2 1,000 ML BOTTLE GT PRN ×2 (00:04→21:32)
[2019-02-12] MEDS: INSULIN ASPART/LISPRO 100 UNIT/ML CARTRIDGE SQ PRN ×4 (00:04→17:30)
[2019-02-12 00:33] VITALS: BP 113/68
[2019-02-12] MEDS: IPRATROPIUM NEB FS 0.5 MG/2.5 ML AMPUL.NEB NEB SCH ×4 (01:59→19:43)
[2019-02-12] MEDS: ALBUTEROL FS 2.5 MG/3 ML VIAL.NEB NEB SCH ×4 (01:59→19:43)
[2019-02-12 06:06] VITALS: BP 124/71
[2019-02-12 08:15] VITALS: BP 130/81
[2019-02-12] MEDS: MULTIVIT W/MINERALS 1 TAB TABLET GT SCH (09:00)
[2019-02-12] MEDS: ACIDOPHILUS/BULGARICUS 1 EACH TAB.CHEW GT SCH ×2 (09:00→17:29)
[2019-02-12] MEDS: DOCUSATE SODIUM LIQ 100 MG/10 ML UDC GT SCH ×2 (09:00→17:29)
[2019-02-12] MEDS: ASCORBIC ACID 500 MG TABLET GT SCH (09:00)
[2019-02-12] MEDS: LEVETIRACETAM SOL (5 ML) 100 MG/ML UDC GT SCH ×2 (09:00→20:19)
[2019-02-12] MEDS: OMEPRAZOLE 20 MG CAPSULE.DR GT SCH (09:00)
[2019-02-12] MEDS: FERROUS SULFATE - FOR SA ONLY 330 MG/7.5 ML UDC GT SCH (09:00)
[2019-02-12] MEDS: ZINC SULFATE 220 MG CAPSULE GT SCH (09:00)
[2019-02-12] MEDS: HYDROGEN PEROXIDE 480 ML BOTTLE TP SCH ×2 (09:00→21:10)
[2019-02-12] MEDS: ACETAMINOPHEN 650 MG/20 ML UDC- SA PATIENTS-PAIN ONLY GT SCH ×2 (10:00→20:20)
[2019-02-12] MEDS: CLOTRIMAZOLE 1% CREAM 24 GM TUBE TP SCH ×2 (11:40→20:21)
[2019-02-12] MEDS: THERAHONEY GEL 1.5 OZ TUBE TP SCH ×2 (11:40→20:21)
[2019-02-12] MEDS: Z GUARD REMEDY 2 OZ OINT TP SCH ×2 (11:40→20:21)
[2019-02-12] MEDS: ZINC OXIDE 30 GM TUBE TP SCH ×2 (11:40→20:21)
[2019-02-12 12:00] VITALS: BP 143/78
[2019-02-12 18:27] VITALS: BP 135/72
[2019-02-12] MEDS: ENOXAPARIN SODIUM 40 MG/0.4 ML DISP.SYRIN SQ SCH (20:20)
[2019-02-12 20:40] VITALS: BP 118/68
--- NOTE | 2019-02-12 21:11 | NUR ---
RT NOTE PT RECEIVED TRACHED ON COOL AEROSOL @ 28%. AMBU BAG/BACK UP TRACH @ BEDSIDE. TX GIVEN, NO ADVERSE REACTIONS NOTED. SX DONE, TRACH SECURED AND PATENT. WATER LEVEL GOOD. WILL MONITOR T/O SHIFT. Addendum: 02/12/19 at 2 by GIULIA BACON RT Amended: Links added.
[2019-02-12] MEDS: ATORVASTATIN 10 MG TABLET GT SCH (21:41)
[2019-02-12] MEDS: INSULIN GLARGINE, 100 UNIT/ML CARTRIDGE SQ SCH (21:42)
[2019-02-13] MEDS: BLOOD SUGAR DIAGNOSTIC 1 EACH STRIP IN SCH ×5 (00:11→23:47)
[2019-02-13] MEDS: DILTIAZEM HCL 30 MG TABLET GT SCH ×5 (00:11→23:47)
[2019-02-13] MEDS: INSULIN ASPART/LISPRO 100 UNIT/ML CARTRIDGE SQ PRN ×5 (00:12→23:49)
[2019-02-13 00:17] VITALS: BP 117/66
[2019-02-13] MEDS: IPRATROPIUM NEB FS 0.5 MG/2.5 ML AMPUL.NEB NEB SCH ×4 (01:46→20:02)
[2019-02-13] MEDS: ALBUTEROL FS 2.5 MG/3 ML VIAL.NEB NEB SCH ×4 (01:47→20:02)
[2019-02-13 06:18] VITALS: BP 117/56
[2019-02-13 07:29] VITALS: BP 119/53
--- NOTE | 2019-02-13 07:56 | NUR ---
RT NOTE PT REC'D TRACHED ON COOL AEROSOL @ 28%. AMBU BAG/BACK UP TRACH @ BEDSIDE. TX GIVEN, NO ADVERSE REACTIONS NOTED. SX DONE, TRACH SECURED AND PATENT. WATER LEVEL GOOD. WILL MONITOR. Addendum: 02/13/19 at 0756 by JL GARCIA RT Amended: Links added.
[2019-02-13] MEDS: HYDROGEN PEROXIDE 480 ML BOTTLE TP SCH ×2 (08:11→20:36)
[2019-02-13] MEDS: ZINC SULFATE 220 MG CAPSULE GT SCH (09:37)
[2019-02-13] MEDS: OMEPRAZOLE 20 MG CAPSULE.DR GT SCH (09:37)
[2019-02-13] MEDS: ACIDOPHILUS/BULGARICUS 1 EACH TAB.CHEW GT SCH ×2 (09:37→17:19)
[2019-02-13] MEDS: DOCUSATE SODIUM LIQ 100 MG/10 ML UDC GT SCH ×2 (09:37→17:19)
[2019-02-13] MEDS: MULTIVIT W/MINERALS 1 TAB TABLET GT SCH (09:37)
[2019-02-13] MEDS: FERROUS SULFATE - FOR SA ONLY 330 MG/7.5 ML UDC GT SCH (09:37)
[2019-02-13] MEDS: ACETAMINOPHEN 650 MG/20 ML UDC- SA PATIENTS-PAIN ONLY GT SCH ×2 (09:37→21:16)
[2019-02-13] MEDS: LEVETIRACETAM SOL (5 ML) 100 MG/ML UDC GT SCH ×2 (09:37→21:15)
[2019-02-13] MEDS: ASCORBIC ACID 500 MG TABLET GT SCH (09:37)
[2019-02-13] MEDS: THERAHONEY GEL 1.5 OZ TUBE TP SCH ×2 (10:10→21:55)
[2019-02-13] MEDS: Z GUARD REMEDY 2 OZ OINT TP SCH ×2 (10:10→21:55)
[2019-02-13] MEDS: CLOTRIMAZOLE 1% CREAM 24 GM TUBE TP SCH ×2 (10:10→21:55)
[2019-02-13] MEDS: ZINC OXIDE 30 GM TUBE TP SCH ×2 (10:10→21:55)
[2019-02-13 12:00] VITALS: BP 141/62
[2019-02-13] MEDS: GLUCERNA 1.2 1,000 ML BOTTLE GT PRN (18:08)
[2019-02-13 18:38] VITALS: BP 121/50
[2019-02-13 19:46] VITALS: BP 127/78
--- NOTE | 2019-02-13 20:52 | NUR ---
PT RCVD TRACH'D ON COOL AEROSOL WITH CHARTED SETTINGS. PT [place] TX WELL. SX DONE. PT TRACH IS PATENT AND SECURE. AMBU BAG AT BEDSIDE. NO SOB NOTED. Addendum: 02/13/19 at 2052 by JOEY PAPPAS RT Amended: Links added.
[2019-02-13] MEDS: ATORVASTATIN 10 MG TABLET GT SCH (21:17)
[2019-02-13] MEDS: ENOXAPARIN SODIUM 40 MG/0.4 ML DISP.SYRIN SQ SCH (21:17)
[2019-02-13] MEDS: INSULIN GLARGINE, 100 UNIT/ML CARTRIDGE SQ SCH (22:26)
[2019-02-14 00:06] VITALS: BP 145/87
[2019-02-14] MEDS: IPRATROPIUM NEB FS 0.5 MG/2.5 ML AMPUL.NEB NEB SCH ×4 (00:48→20:19)
[2019-02-14] MEDS: ALBUTEROL FS 2.5 MG/3 ML VIAL.NEB NEB SCH ×4 (00:48→20:19)
[2019-02-14 06:05] VITALS: BP 143/89
[2019-02-14] MEDS: GLUCERNA 1.2 1,000 ML BOTTLE GT PRN (06:10)
[2019-02-14] MEDS: BLOOD SUGAR DIAGNOSTIC 1 EACH STRIP IN SCH ×4 (06:10→23:57)
[2019-02-14] MEDS: DILTIAZEM HCL 30 MG TABLET GT SCH ×4 (06:10→23:57)
[2019-02-14] MEDS: INSULIN ASPART/LISPRO 100 UNIT/ML CARTRIDGE SQ PRN ×2 (06:11→17:50)
[2019-02-14 07:43] VITALS: BP 124/59
[2019-02-14] MEDS: LEVETIRACETAM SOL (5 ML) 100 MG/ML UDC GT SCH ×2 (08:45→21:54)
[2019-02-14] MEDS: DOCUSATE SODIUM LIQ 100 MG/10 ML UDC GT SCH ×2 (08:45→17:49)
[2019-02-14] MEDS: ACIDOPHILUS/BULGARICUS 1 EACH TAB.CHEW GT SCH ×2 (08:45→17:49)
[2019-02-14] MEDS: FERROUS SULFATE - FOR SA ONLY 330 MG/7.5 ML UDC GT SCH (08:45)
[2019-02-14] MEDS: MULTIVIT W/MINERALS 1 TAB TABLET GT SCH (08:46)
[2019-02-14] MEDS: ASCORBIC ACID 500 MG TABLET GT SCH (08:46)
[2019-02-14] MEDS: ACETAMINOPHEN 650 MG/20 ML UDC- SA PATIENTS-PAIN ONLY GT SCH ×2 (08:46→21:55)
[2019-02-14] MEDS: ZINC SULFATE 220 MG CAPSULE GT SCH (08:46)
[2019-02-14] MEDS: OMEPRAZOLE 20 MG CAPSULE.DR GT SCH (08:46)
[2019-02-14] MEDS: HYDROGEN PEROXIDE 480 ML BOTTLE TP SCH ×2 (09:00→21:02)
[2019-02-14] MEDS: ZINC OXIDE 30 GM TUBE TP SCH (10:15)
[2019-02-14] MEDS: CLOTRIMAZOLE 1% CREAM 24 GM TUBE TP SCH (10:15)
[2019-02-14] MEDS: THERAHONEY GEL 1.5 OZ TUBE TP SCH (10:15)
[2019-02-14] MEDS: Z GUARD REMEDY 2 OZ OINT TP SCH ×2 (10:15→21:55)
--- NOTE | 2019-02-14 11:20 | NUR ---
Left buttock p.u. assessed by Simón SteveSOCK DRIER with new verbal txt order, cleanse with NS, pat dry and apply hydrogel then cover with Mepilex, carried out.
[2019-02-14 12:00] VITALS: BP 141/83
[2019-02-14 18:00] VITALS: BP 140/74
[2019-02-14 19:26] VITALS: BP 152/75
--- NOTE | 2019-02-14 20:17 | NUR ---
Seen and examined by MILLY Bendre no new orders.
[2019-02-14] MEDS: ENOXAPARIN SODIUM 40 MG/0.4 ML DISP.SYRIN SQ SCH (21:55)
[2019-02-14] MEDS: ATORVASTATIN 10 MG TABLET GT SCH (21:55)
[2019-02-14] MEDS: HYDROGEL DRESSING 90 GM TUBE TP SCH (21:55)
[2019-02-14] MEDS: INSULIN GLARGINE, 100 UNIT/ML CARTRIDGE SQ SCH (21:56)
[2019-02-15] VITALS: BP 141/85
[2019-02-15] MEDS: INSULIN ASPART/LISPRO 100 UNIT/ML CARTRIDGE SQ PRN ×5 (00:02→23:36)
[2019-02-15] MEDS: GLUCERNA 1.2 1,000 ML BOTTLE GT PRN ×2 (00:15→20:26)
[2019-02-15] MEDS: ALBUTEROL FS 2.5 MG/3 ML VIAL.NEB NEB SCH ×4 (01:29→20:06)
[2019-02-15] MEDS: IPRATROPIUM NEB FS 0.5 MG/2.5 ML AMPUL.NEB NEB SCH ×4 (01:29→20:06)
[2019-02-15] MEDS: BLOOD SUGAR DIAGNOSTIC 1 EACH STRIP IN SCH ×4 (05:24→23:35)
[2019-02-15] MEDS: DILTIAZEM HCL 30 MG TABLET GT SCH ×3 (05:24→17:22)
[2019-02-15 06:00] VITALS: BP 153/84
[2019-02-15 07:52] VITALS: BP 128/69
[2019-02-15] MEDS: HYDROGEN PEROXIDE 480 ML BOTTLE TP SCH ×2 (09:24→21:00)
[2019-02-15] MEDS: ACIDOPHILUS/BULGARICUS 1 EACH TAB.CHEW GT SCH ×2 (09:41→17:22)
[2019-02-15] MEDS: ASCORBIC ACID 500 MG TABLET GT SCH (09:41)
[2019-02-15] MEDS: OMEPRAZOLE 20 MG CAPSULE.DR GT SCH (09:41)
[2019-02-15] MEDS: FERROUS SULFATE - FOR SA ONLY 330 MG/7.5 ML UDC GT SCH (09:41)
[2019-02-15] MEDS: DOCUSATE SODIUM LIQ 100 MG/10 ML UDC GT SCH ×2 (09:41→17:22)
[2019-02-15] MEDS: ZINC SULFATE 220 MG CAPSULE GT SCH (09:41)
[2019-02-15] MEDS: LEVETIRACETAM SOL (5 ML) 100 MG/ML UDC GT SCH ×2 (09:41→20:25)
[2019-02-15] MEDS: MULTIVIT W/MINERALS 1 TAB TABLET GT SCH (09:41)
[2019-02-15] MEDS: ACETAMINOPHEN 650 MG/20 ML UDC- SA PATIENTS-PAIN ONLY GT SCH ×2 (09:42→20:26)
--- NOTE | 2019-02-15 09:54 | NUR ---
SW emailed the pt.s responsible democrat, Kelly Wong to invite them to the next IDT meeting 02/22/19 from 12:30pm-1:30pm in the activities room. SW inquired if they can attend or participate via phone conference. SW will await response.
[2019-02-15] MEDS: HYDROGEL DRESSING 90 GM TUBE TP SCH ×2 (10:25→21:13)
[2019-02-15] MEDS: Z GUARD REMEDY 2 OZ OINT TP SCH ×2 (10:25→21:14)
[2019-02-15 12:00] VITALS: BP 128/82
--- NOTE | 2019-02-15 13:50 | NUR ---
ORACIO completed SS portion of 2nd Quarter MDS. The patients responsible republican is the patients daughter, Kelly Wong [phone] who is very involved and supportive and visits often. The patient is in PVS, Full Code, non-vent with trach. The pt.s last dental apt was 12/12/[address] Pruett. The pt.s last optometry apt. was 02/01/[address] Quigley and the last podiatry visit by Dr. Walsh was today 02/15/19.
--- NOTE | 2019-02-15 13:51 | NUR ---
Patients responsible libertarian, Kelly Wong requested a list of mortuaries and homes in the [facility] as she would like to initiate planning. Kelly stated that when the time comes, she would prefer that the pt.'s burial be in [place]. Kelly stated that she might also revisit the pt.'s Documentation of Preferred intensity of Care. ORACIO informed Kelly that she can meet with ORACIO when needed. Kelly expressed understanding and gratitude. ORACIO emailed a list of Mortuaries to Kelly.
--- NOTE | 2019-02-15 17:17 | NUR ---
RT Patient was received on 28% cool aerosol.Patient stable throughout the shift. Trach is patent and secured.Will continue to monitor. Addendum: 02/15/19 at 1717 by SHYANN BARRETT RT Amended: Links added.
[2019-02-15 18:17] VITALS: BP 125/56
[2019-02-15] MEDS: ENOXAPARIN SODIUM 40 MG/0.4 ML DISP.SYRIN SQ SCH (20:26)
[2019-02-15 21:00] VITALS: BP 101/56
[2019-02-15] MEDS: ATORVASTATIN 10 MG TABLET GT SCH (21:14)
[2019-02-15] MEDS: INSULIN GLARGINE, 100 UNIT/ML CARTRIDGE SQ SCH (21:14)
[2019-02-16 00:05] VITALS: BP 146/62
[2019-02-16] MEDS: DILTIAZEM HCL 30 MG TABLET GT SCH ×5 (00:10→23:58)
[2019-02-16] MEDS: IPRATROPIUM NEB FS 0.5 MG/2.5 ML AMPUL.NEB NEB SCH ×4 (00:57→20:03)
[2019-02-16] MEDS: ALBUTEROL FS 2.5 MG/3 ML VIAL.NEB NEB SCH ×4 (00:57→20:03)
[2019-02-16] MEDS: BLOOD SUGAR DIAGNOSTIC 1 EACH STRIP IN SCH ×3 (05:58→17:21)
[2019-02-16] MEDS: INSULIN ASPART/LISPRO 100 UNIT/ML CARTRIDGE SQ PRN ×3 (06:00→17:22)
[2019-02-16 06:01] VITALS: BP 148/70
[2019-02-16] MEDS: OMEPRAZOLE 20 MG CAPSULE.DR GT SCH (08:39)
[2019-02-16] MEDS: ACIDOPHILUS/BULGARICUS 1 EACH TAB.CHEW GT SCH ×2 (08:39→17:21)
[2019-02-16] MEDS: ASCORBIC ACID 500 MG TABLET GT SCH (08:39)
[2019-02-16] MEDS: ACETAMINOPHEN 650 MG/20 ML UDC- SA PATIENTS-PAIN ONLY GT SCH ×2 (08:39→21:34)
[2019-02-16] MEDS: DOCUSATE SODIUM LIQ 100 MG/10 ML UDC GT SCH ×2 (08:39→17:21)
[2019-02-16] MEDS: ZINC SULFATE 220 MG CAPSULE GT SCH (08:39)
[2019-02-16] MEDS: FERROUS SULFATE - FOR SA ONLY 330 MG/7.5 ML UDC GT SCH (08:39)
[2019-02-16] MEDS: LEVETIRACETAM SOL (5 ML) 100 MG/ML UDC GT SCH ×2 (08:39→21:33)
[2019-02-16] MEDS: MULTIVIT W/MINERALS 1 TAB TABLET GT SCH (08:39)
[2019-02-16] MEDS: Z GUARD REMEDY 2 OZ OINT TP SCH ×2 (09:15→21:54)
[2019-02-16] MEDS: HYDROGEL DRESSING 90 GM TUBE TP SCH ×2 (09:15→21:54)
[2019-02-16] MEDS: HYDROGEN PEROXIDE 480 ML BOTTLE TP SCH ×2 (09:55→21:05)
[2019-02-16 12:00] VITALS: BP 143/74
[2019-02-16] MEDS: GLUCERNA 1.2 1,000 ML BOTTLE GT PRN (13:00)
[2019-02-16 13:30] VITALS: BP 127/80
[2019-02-16 18:21] VITALS: BP 121/66
[2019-02-16 20:23] VITALS: BP 142/80
[2019-02-16] MEDS: ENOXAPARIN SODIUM 40 MG/0.4 ML DISP.SYRIN SQ SCH (21:34)
[2019-02-16] MEDS: ATORVASTATIN 10 MG TABLET GT SCH (21:34)
[2019-02-16] MEDS: INSULIN GLARGINE, 100 UNIT/ML CARTRIDGE SQ SCH (21:36)
[2019-02-17] MEDS: BLOOD SUGAR DIAGNOSTIC 1 EACH STRIP IN SCH ×4 (00:15→17:55)
[2019-02-17 00:32] VITALS: BP 137/79
[2019-02-17] MEDS: ALBUTEROL FS 2.5 MG/3 ML VIAL.NEB NEB SCH ×4 (01:21→19:47)
[2019-02-17] MEDS: IPRATROPIUM NEB FS 0.5 MG/2.5 ML AMPUL.NEB NEB SCH ×4 (01:21→19:47)
[2019-02-17] MEDS: INSULIN ASPART/LISPRO 100 UNIT/ML CARTRIDGE SQ PRN ×4 (01:56→17:56)
[2019-02-17] MEDS: DILTIAZEM HCL 30 MG TABLET GT SCH ×3 (05:26→17:55)
[2019-02-17] MEDS: GLUCERNA 1.2 1,000 ML BOTTLE GT PRN ×2 (05:26→21:22)
[2019-02-17 06:32] VITALS: BP 137/76
[2019-02-17 07:26] VITALS: BP 132/64
[2019-02-17] MEDS: ASCORBIC ACID 500 MG TABLET GT SCH (09:05)
[2019-02-17] MEDS: ACETAMINOPHEN 650 MG/20 ML UDC- SA PATIENTS-PAIN ONLY GT SCH ×2 (09:05→20:11)
[2019-02-17] MEDS: ACIDOPHILUS/BULGARICUS 1 EACH TAB.CHEW GT SCH ×2 (09:05→17:51)
[2019-02-17] MEDS: FERROUS SULFATE - FOR SA ONLY 330 MG/7.5 ML UDC GT SCH (09:05)
[2019-02-17] MEDS: OMEPRAZOLE 20 MG CAPSULE.DR GT SCH (09:05)
[2019-02-17] MEDS: MULTIVIT W/MINERALS 1 TAB TABLET GT SCH (09:05)
[2019-02-17] MEDS: DOCUSATE SODIUM LIQ 100 MG/10 ML UDC GT SCH ×2 (09:05→17:51)
[2019-02-17] MEDS: LEVETIRACETAM SOL (5 ML) 100 MG/ML UDC GT SCH ×2 (09:05→20:11)
[2019-02-17] MEDS: ZINC SULFATE 220 MG CAPSULE GT SCH (09:05)
[2019-02-17] MEDS: Z GUARD REMEDY 2 OZ OINT TP SCH ×2 (09:45→20:12)
[2019-02-17] MEDS: HYDROGEL DRESSING 90 GM TUBE TP SCH ×2 (09:45→20:12)
[2019-02-17] MEDS: HYDROGEN PEROXIDE 480 ML BOTTLE TP SCH ×2 (09:47→22:03)
[2019-02-17 12:00] VITALS: BP 152/84
[2019-02-17 18:36] VITALS: BP 131/66
[2019-02-17] MEDS: ENOXAPARIN SODIUM 40 MG/0.4 ML DISP.SYRIN SQ SCH (20:12)
[2019-02-17] MEDS: ATORVASTATIN 10 MG TABLET GT SCH (21:22)
[2019-02-17] MEDS: INSULIN GLARGINE, 100 UNIT/ML CARTRIDGE SQ SCH (22:37)
[2019-02-17 22:40] VITALS: BP 144/75
[2019-02-18 00:11] VITALS: BP 134/77
[2019-02-18] MEDS: BLOOD SUGAR DIAGNOSTIC 1 EACH STRIP IN SCH ×4 (00:13→18:30)
[2019-02-18] MEDS: DILTIAZEM HCL 30 MG TABLET GT SCH ×4 (00:13→18:30)
[2019-02-18] MEDS: INSULIN ASPART/LISPRO 100 UNIT/ML CARTRIDGE SQ PRN ×3 (00:14→12:41)
[2019-02-18] MEDS: IPRATROPIUM NEB FS 0.5 MG/2.5 ML AMPUL.NEB NEB SCH ×4 (01:50→19:49)
[2019-02-18] MEDS: ALBUTEROL FS 2.5 MG/3 ML VIAL.NEB NEB SCH ×4 (01:50→19:49)
[2019-02-18 06:13] VITALS: BP 131/74
[2019-02-18 07:41] VITALS: BP 122/63
[2019-02-18] MEDS: HYDROGEN PEROXIDE 480 ML BOTTLE TP SCH ×2 (09:00→19:49)
[2019-02-18] MEDS: MULTIVIT W/MINERALS 1 TAB TABLET GT SCH (09:41)
[2019-02-18] MEDS: LEVETIRACETAM SOL (5 ML) 100 MG/ML UDC GT SCH ×2 (09:41→20:08)
[2019-02-18] MEDS: OMEPRAZOLE 20 MG CAPSULE.DR GT SCH (09:41)
[2019-02-18] MEDS: ZINC SULFATE 220 MG CAPSULE GT SCH (09:41)
[2019-02-18] MEDS: ACETAMINOPHEN 650 MG/20 ML UDC- SA PATIENTS-PAIN ONLY GT SCH ×2 (09:41→20:09)
[2019-02-18] MEDS: ACIDOPHILUS/BULGARICUS 1 EACH TAB.CHEW GT SCH ×2 (09:41→17:00)
[2019-02-18] MEDS: ASCORBIC ACID 500 MG TABLET GT SCH (09:41)
[2019-02-18] MEDS: DOCUSATE SODIUM LIQ 100 MG/10 ML UDC GT SCH ×2 (09:41→17:00)
[2019-02-18] MEDS: FERROUS SULFATE - FOR SA ONLY 330 MG/7.5 ML UDC GT SCH (09:41)
[2019-02-18] MEDS: Z GUARD REMEDY 2 OZ OINT TP SCH ×2 (10:15→20:10)
[2019-02-18] MEDS: HYDROGEL DRESSING 90 GM TUBE TP SCH ×2 (10:15→20:09)
[2019-02-18 12:46] VITALS: BP 149/77
--- NOTE | 2019-02-18 14:17 | NUR ---
ORACIO communicated with Suly Barrera from [facility] Business Office to follow up with SOC. Per Suly, the pt.s responsible libertarian, Kelly [phone] has talked to Suly and stated she would mail in the payment for the month of January and set up direct deposit beginning February. ORACIO asked Suly to keep ORACIO updated. Suly was agreeable to plan.
[2019-02-18 18:00] VITALS: BP 124/68
[2019-02-18] MEDS: GLUCERNA 1.2 1,000 ML BOTTLE GT PRN (18:30)
--- NOTE | 2019-02-18 19:59 | NUR ---
RT NOTE: RECEIVED TRACH PT ON COOL AEROSOL. AMBU BAG @ BEDSIDE. Q6 BREATHING TX GIVEN PER MD ORDERS WITH NO ADVERSE REACTION NOTED. SX DONE PRN. TRACH PATENT AND SECURED. TRACH CARE DONE. NO RESP DISTRESS NOTED AT THIS TIME. WILL CONTINUE TO MONITOR PT Addendum: 02/19/19 at 0337 by BECKY DIALLO RT Amended: Links added.
[2019-02-18] MEDS: ENOXAPARIN SODIUM 40 MG/0.4 ML DISP.SYRIN SQ SCH (20:09)
[2019-02-18 20:57] VITALS: BP 132/67
[2019-02-18] MEDS: ATORVASTATIN 10 MG TABLET GT SCH (21:13)
[2019-02-18] MEDS: INSULIN GLARGINE, 100 UNIT/ML CARTRIDGE SQ SCH (21:14)
[2019-02-19] MEDS: DILTIAZEM HCL 30 MG TABLET GT SCH ×4 (00:08→18:27)
[2019-02-19] MEDS: BLOOD SUGAR DIAGNOSTIC 1 EACH STRIP IN SCH ×4 (00:08→18:27)
[2019-02-19] MEDS: INSULIN ASPART/LISPRO 100 UNIT/ML CARTRIDGE SQ PRN ×4 (00:09→18:28)
[2019-02-19 00:13] VITALS: BP 134/66
[2019-02-19] MEDS: IPRATROPIUM NEB FS 0.5 MG/2.5 ML AMPUL.NEB NEB SCH ×4 (02:00→19:54)
[2019-02-19] MEDS: ALBUTEROL FS 2.5 MG/3 ML VIAL.NEB NEB SCH ×4 (02:00→19:54)
[2019-02-19 06:12] VITALS: BP 128/79
[2019-02-19 07:05] LABS: BASOPHILS # (AUTO) 0.1 /CMM (0.0-0.2); BASOPHILS % (AUTO) 1.2 % (0.0-2.0); EOSINOPHILS % (AUTO) 4.1 % (0.0-6.0); HEMATOCRIT 36 % (33-45); HEMOGLOBIN 11.3 g/dL (11.5-14.8); LYMPHOCYTES # (AUTO) 2.7 /CMM (0.8-4.8); LYMPHOCYTES % (AUTO) 42.9 % (20.0-44.0); MEAN CORPUSCULAR HGB CONC 32 g/dl (31.0-36.0); MEAN CORPUSCULAR VOLUME 87 fL (82-100); MONOCYTES # (AUTO) 0.6 /CMM (0.1-1.30); MONOCYTES % (AUTO) 9.4 % (2.0-12.0); NEUTROPHILS # (AUTO) 2.6 /CMM (1.8-8.9); NEUTROPHILS % (AUTO) 42.4 % (43.0-81.0); PLATELET COUNT (AUTO) 336 /CMM (150-450); RED BLOOD CELL COUNT(AUTO) 4.08 MIL/uL (4.0-5.2); WHITE BLOOD COUNT (AUTO) 6.2 K/uL (4.3-11.0)
[2019-02-19 07:26] LABS: CALCIUM, SERUM 9.4 mg/dL (8.5-10.1); CREATININE 1.1 mg/dL (0.6-1.3); MAGNESIUM 2.2 mg/dL (1.8-2.4); PHOSPHORUS 3.7 mg/dL (2.5-4.9); POTASSIUM 5.2 mmol/L (3.5-5.1)
[2019-02-19 08:00] VITALS: BP 129/74
[2019-02-19] MEDS: ASCORBIC ACID 500 MG TABLET GT SCH (08:19)
[2019-02-19] MEDS: ACETAMINOPHEN 650 MG/20 ML UDC- SA PATIENTS-PAIN ONLY GT SCH ×2 (08:19→21:31)
[2019-02-19] MEDS: ZINC SULFATE 220 MG CAPSULE GT SCH (08:19)
[2019-02-19] MEDS: ACIDOPHILUS/BULGARICUS 1 EACH TAB.CHEW GT SCH ×2 (08:19→16:42)
[2019-02-19] MEDS: LEVETIRACETAM SOL (5 ML) 100 MG/ML UDC GT SCH ×2 (08:19→21:32)
[2019-02-19] MEDS: OMEPRAZOLE 20 MG CAPSULE.DR GT SCH (08:19)
[2019-02-19] MEDS: FERROUS SULFATE - FOR SA ONLY 330 MG/7.5 ML UDC GT SCH (08:19)
[2019-02-19] MEDS: DOCUSATE SODIUM LIQ 100 MG/10 ML UDC GT SCH ×2 (08:19→16:42)
[2019-02-19] MEDS: MULTIVIT W/MINERALS 1 TAB TABLET GT SCH (08:19)
[2019-02-19] MEDS: HYDROGEL DRESSING 90 GM TUBE TP SCH ×2 (09:00→21:23)
[2019-02-19] MEDS: Z GUARD REMEDY 2 OZ OINT TP SCH ×2 (09:00→21:23)
[2019-02-19] MEDS: HYDROGEN PEROXIDE 480 ML BOTTLE TP SCH ×2 (09:00→20:28)
[2019-02-19] MEDS: GLUCERNA 1.2 1,000 ML BOTTLE GT PRN (10:23)
--- NOTE | 2019-02-19 11:24 | NUR ---
Relayed lab results to MILLY Bender. K 5.2. MILLY Bender ordered to do BMP on 02/21/19.
[2019-02-19 12:00] VITALS: BP 150/86
[2019-02-19 18:30] VITALS: BP 116/60
[2019-02-19 20:52] VITALS: BP 149/87
--- NOTE | 2019-02-19 21:13 | NUR ---
RT NOTE PT RECEIVED TRACHED ON COOL AEROSOL @ 28%. AMBU BAG/BACK UP TRACH @ BEDSIDE. TX GIVEN, NO ADVERSE REACTIONS NOTED. SX DONE, TRACH SECURED AND PATENT. WATER LEVEL GOOD. NO SOB NOTED. WILL MONITOR T/O SHIFT. Addendum: 02/19/19 at 2114 by GIULIA BACON RT Amended: Links added.
[2019-02-19] MEDS: INSULIN GLARGINE, 100 UNIT/ML CARTRIDGE SQ SCH (21:21)
[2019-02-19] MEDS: ENOXAPARIN SODIUM 40 MG/0.4 ML DISP.SYRIN SQ SCH (21:24)
[2019-02-19] MEDS: ATORVASTATIN 10 MG TABLET GT SCH (21:28)
[2019-02-20] VITALS: BP 133/71
[2019-02-20] MEDS: BLOOD SUGAR DIAGNOSTIC 1 EACH STRIP IN SCH ×5 (00:36→23:50)
[2019-02-20] MEDS: DILTIAZEM HCL 30 MG TABLET GT SCH ×5 (00:37→23:50)
[2019-02-20] MEDS: GLUCERNA 1.2 1,000 ML BOTTLE GT PRN ×2 (00:50→23:25)
[2019-02-20] MEDS: ALBUTEROL FS 2.5 MG/3 ML VIAL.NEB NEB SCH ×4 (01:53→19:58)
[2019-02-20] MEDS: IPRATROPIUM NEB FS 0.5 MG/2.5 ML AMPUL.NEB NEB SCH ×4 (01:53→19:58)
[2019-02-20 06:00] VITALS: BP 130/71
[2019-02-20] MEDS: INSULIN ASPART/LISPRO 100 UNIT/ML CARTRIDGE SQ PRN ×4 (06:35→23:51)
[2019-02-20 07:45] VITALS: BP 130/74
[2019-02-20] MEDS: LEVETIRACETAM SOL (5 ML) 100 MG/ML UDC GT SCH ×2 (08:21→21:23)
[2019-02-20] MEDS: MULTIVIT W/MINERALS 1 TAB TABLET GT SCH (08:21)
[2019-02-20] MEDS: ACIDOPHILUS/BULGARICUS 1 EACH TAB.CHEW GT SCH ×2 (08:21→16:39)
[2019-02-20] MEDS: ASCORBIC ACID 500 MG TABLET GT SCH (08:21)
[2019-02-20] MEDS: DOCUSATE SODIUM LIQ 100 MG/10 ML UDC GT SCH ×2 (08:21→16:39)
[2019-02-20] MEDS: ZINC SULFATE 220 MG CAPSULE GT SCH (08:21)
[2019-02-20] MEDS: ACETAMINOPHEN 650 MG/20 ML UDC- SA PATIENTS-PAIN ONLY GT SCH ×2 (08:21→21:23)
[2019-02-20] MEDS: FERROUS SULFATE - FOR SA ONLY 330 MG/7.5 ML UDC GT SCH (08:21)
[2019-02-20] MEDS: OMEPRAZOLE 20 MG CAPSULE.DR GT SCH (08:21)
[2019-02-20] MEDS: HYDROGEN PEROXIDE 480 ML BOTTLE TP SCH ×2 (09:00→21:07)
[2019-02-20] MEDS: Z GUARD REMEDY 2 OZ OINT TP SCH ×2 (09:00→21:23)
[2019-02-20] MEDS: HYDROGEL DRESSING 90 GM TUBE TP SCH ×2 (09:00→21:23)
[2019-02-20 12:00] VITALS: BP 121/75
--- NOTE | 2019-02-20 13:22 | NUR ---
The pt.'s family was not able to attend this month's Family Support Group.
[2019-02-20 18:30] VITALS: BP 132/79
[2019-02-20 20:32] VITALS: BP 130/75
--- NOTE | 2019-02-20 21:16 | NUR ---
PT RECEIVE STABLE ON CA 28%, TRACH PATENT AND SECURED, ABELARDO WAHL AND RAFFI BAG IS AT BEDSIDE Addendum: 02/20/19 at 2116 by BEN FOOTE RT Amended: Links added.
[2019-02-20] MEDS: ENOXAPARIN SODIUM 40 MG/0.4 ML DISP.SYRIN SQ SCH (21:23)
[2019-02-20] MEDS: ATORVASTATIN 10 MG TABLET GT SCH (21:23)
[2019-02-20] MEDS: INSULIN GLARGINE, 100 UNIT/ML CARTRIDGE SQ SCH (21:26)
[2019-02-21 00:20] VITALS: BP 155/76
[2019-02-21] MEDS: IPRATROPIUM NEB FS 0.5 MG/2.5 ML AMPUL.NEB NEB SCH ×4 (01:00→20:02)
[2019-02-21] MEDS: ALBUTEROL FS 2.5 MG/3 ML VIAL.NEB NEB SCH ×4 (01:00→20:02)
[2019-02-21] MEDS: DILTIAZEM HCL 30 MG TABLET GT SCH ×3 (05:56→18:12)
[2019-02-21] MEDS: BLOOD SUGAR DIAGNOSTIC 1 EACH STRIP IN SCH ×3 (05:56→18:12)
[2019-02-21] MEDS: INSULIN ASPART/LISPRO 100 UNIT/ML CARTRIDGE SQ PRN ×3 (05:57→18:13)
[2019-02-21 06:48] VITALS: BP 118/78
[2019-02-21 07:25] VITALS: BP 99/59
[2019-02-21 07:38] LABS: CALCIUM, SERUM 9.3 mg/dL (8.5-10.1); POTASSIUM 4.8 mmol/L (3.5-5.1)
[2019-02-21] MEDS: HYDROGEN PEROXIDE 480 ML BOTTLE TP SCH ×2 (09:00→20:02)
[2019-02-21] MEDS: ACETAMINOPHEN 650 MG/20 ML UDC- SA PATIENTS-PAIN ONLY GT SCH ×2 (09:58→21:11)
[2019-02-21] MEDS: OMEPRAZOLE 20 MG CAPSULE.DR GT SCH (09:58)
[2019-02-21] MEDS: DOCUSATE SODIUM LIQ 100 MG/10 ML UDC GT SCH ×2 (09:58→17:00)
[2019-02-21] MEDS: FERROUS SULFATE - FOR SA ONLY 330 MG/7.5 ML UDC GT SCH (09:58)
[2019-02-21] MEDS: ZINC SULFATE 220 MG CAPSULE GT SCH (09:58)
[2019-02-21] MEDS: ACIDOPHILUS/BULGARICUS 1 EACH TAB.CHEW GT SCH ×2 (09:58→17:00)
[2019-02-21] MEDS: LEVETIRACETAM SOL (5 ML) 100 MG/ML UDC GT SCH ×2 (09:58→21:11)
[2019-02-21] MEDS: ASCORBIC ACID 500 MG TABLET GT SCH (09:58)
[2019-02-21] MEDS: MULTIVIT W/MINERALS 1 TAB TABLET GT SCH (09:58)
[2019-02-21] MEDS: HYDROGEL DRESSING 90 GM TUBE TP SCH (10:30)
[2019-02-21] MEDS: Z GUARD REMEDY 2 OZ OINT TP SCH ×2 (10:30→21:11)
[2019-02-21 12:00] VITALS: BP 137/89
[2019-02-21] MEDS: GLUCERNA 1.2 1,000 ML BOTTLE GT PRN (18:12)
[2019-02-21 18:58] VITALS: BP 142/73
--- NOTE | 2019-02-21 20:13 | NUR ---
RT NOTE: RECEIVED TRACH PT ON COOL AEROSOL. AMBU BAG @ BEDSIDE. Q6 BREATHING TX GIVEN PER MD ORDERS WITH NO ADVERSE REACTION NOTED. SX DONE PRN. TRACH PATENT AND SECURED. TRACH CARE DONE. NO RESP DISTRESS NOTED AT THIS TIME. WILL CONTINUE TO MONITOR PT Addendum: 02/22/19 at 0241 by BECYK DIALLO RT Amended: Links added.
[2019-02-21 20:34] VITALS: BP 112/66
[2019-02-21] MEDS: ENOXAPARIN SODIUM 40 MG/0.4 ML DISP.SYRIN SQ SCH (21:11)
[2019-02-21] MEDS: THERAHONEY GEL 1.5 OZ TUBE TP SCH (21:11)
[2019-02-21] MEDS: ATORVASTATIN 10 MG TABLET GT SCH (21:12)
[2019-02-21] MEDS: INSULIN GLARGINE, 100 UNIT/ML CARTRIDGE SQ SCH (21:13)
[2019-02-22] MEDS: DILTIAZEM HCL 30 MG TABLET GT SCH ×5 (00:08→23:57)
[2019-02-22] MEDS: BLOOD SUGAR DIAGNOSTIC 1 EACH STRIP IN SCH ×5 (00:08→23:57)
[2019-02-22] MEDS: INSULIN ASPART/LISPRO 100 UNIT/ML CARTRIDGE SQ PRN ×4 (00:10→23:57)
[2019-02-22 00:20] VITALS: BP 148/68
[2019-02-22] MEDS: ALBUTEROL FS 2.5 MG/3 ML VIAL.NEB NEB SCH ×4 (01:42→19:35)
[2019-02-22] MEDS: IPRATROPIUM NEB FS 0.5 MG/2.5 ML AMPUL.NEB NEB SCH ×4 (01:42→19:35)
[2019-02-22 06:00] VITALS: BP 137/73
[2019-02-22] MEDS: HYDROGEN PEROXIDE 480 ML BOTTLE TP SCH ×2 (07:40→21:06)
[2019-02-22 07:44] VITALS: BP 116/65
[2019-02-22] MEDS: DOCUSATE SODIUM LIQ 100 MG/10 ML UDC GT SCH ×2 (09:00→17:00)
[2019-02-22] MEDS: OMEPRAZOLE 20 MG CAPSULE.DR GT SCH (09:00)
[2019-02-22] MEDS: FERROUS SULFATE - FOR SA ONLY 330 MG/7.5 ML UDC GT SCH (09:00)
[2019-02-22] MEDS: ACIDOPHILUS/BULGARICUS 1 EACH TAB.CHEW GT SCH ×2 (09:00→17:00)
[2019-02-22] MEDS: ASCORBIC ACID 500 MG TABLET GT SCH (09:00)
[2019-02-22] MEDS: LEVETIRACETAM SOL (5 ML) 100 MG/ML UDC GT SCH ×2 (09:00→21:15)
[2019-02-22] MEDS: ZINC SULFATE 220 MG CAPSULE GT SCH (09:00)
[2019-02-22] MEDS: MULTIVIT W/MINERALS 1 TAB TABLET GT SCH (09:00)
[2019-02-22] MEDS: ACETAMINOPHEN 650 MG/20 ML UDC- SA PATIENTS-PAIN ONLY GT SCH ×2 (10:10→21:15)
[2019-02-22] MEDS: THERAHONEY GEL 1.5 OZ TUBE TP SCH ×2 (10:40→21:16)
[2019-02-22] MEDS: Z GUARD REMEDY 2 OZ OINT TP SCH ×2 (10:40→21:16)
[2019-02-22 12:00] VITALS: BP 144/89
--- NOTE | 2019-02-22 14:19 | NUR ---
INTERDISCIPLINARY PLAN OF CARE CONFERENCE for February took place today. The patients responsible republican/daughter Kelly Wong [phone] was not able to attend or participate via phone conference. Charge nurse discussed L Buttocks sacral wound & Tx changed from hydrogel to [place]rah[place]. Dr. Capone and Interdisciplinary team discussed the plan of care in detail. Current orders as well as treatments and medications were reviewed. Please see other disciplines IDT notes for further details.
[2019-02-22] MEDS: GLUCERNA 1.2 1,000 ML BOTTLE GT PRN (15:51)
[2019-02-22 18:28] VITALS: BP 133/74
[2019-02-22 20:19] VITALS: BP 133/65
[2019-02-22] MEDS: ENOXAPARIN SODIUM 40 MG/0.4 ML DISP.SYRIN SQ SCH (21:15)
[2019-02-22] MEDS: ATORVASTATIN 10 MG TABLET GT SCH (21:16)
[2019-02-22] MEDS: INSULIN GLARGINE, 100 UNIT/ML CARTRIDGE SQ SCH (21:46)
[2019-02-23 00:52] VITALS: BP 146/85
[2019-02-23] MEDS: IPRATROPIUM NEB FS 0.5 MG/2.5 ML AMPUL.NEB NEB SCH ×4 (01:46→19:29)
[2019-02-23] MEDS: ALBUTEROL FS 2.5 MG/3 ML VIAL.NEB NEB SCH ×4 (01:46→19:29)
[2019-02-23] MEDS: BLOOD SUGAR DIAGNOSTIC 1 EACH STRIP IN SCH ×4 (06:09→23:58)
[2019-02-23] MEDS: DILTIAZEM HCL 30 MG TABLET GT SCH ×4 (06:09→23:58)
[2019-02-23] MEDS: INSULIN ASPART/LISPRO 100 UNIT/ML CARTRIDGE SQ PRN ×3 (06:10→23:58)
[2019-02-23 06:31] VITALS: BP 119/52
[2019-02-23 08:00] VITALS: BP 134/71
[2019-02-23] MEDS: ACIDOPHILUS/BULGARICUS 1 EACH TAB.CHEW GT SCH ×2 (09:00→17:06)
[2019-02-23] MEDS: OMEPRAZOLE 20 MG CAPSULE.DR GT SCH (09:00)
[2019-02-23] MEDS: ZINC SULFATE 220 MG CAPSULE GT SCH (09:00)
[2019-02-23] MEDS: MULTIVIT W/MINERALS 1 TAB TABLET GT SCH (09:00)
[2019-02-23] MEDS: ASCORBIC ACID 500 MG TABLET GT SCH (09:00)
[2019-02-23] MEDS: HYDROGEN PEROXIDE 480 ML BOTTLE TP SCH ×2 (09:00→21:02)
[2019-02-23] MEDS: LEVETIRACETAM SOL (5 ML) 100 MG/ML UDC GT SCH ×2 (09:00→21:00)
[2019-02-23] MEDS: DOCUSATE SODIUM LIQ 100 MG/10 ML UDC GT SCH ×2 (09:00→17:06)
[2019-02-23] MEDS: FERROUS SULFATE - FOR SA ONLY 330 MG/7.5 ML UDC GT SCH (09:00)
[2019-02-23] MEDS: ACETAMINOPHEN 650 MG/20 ML UDC- SA PATIENTS-PAIN ONLY GT SCH ×2 (10:20→21:00)
[2019-02-23] MEDS: GLUCERNA 1.2 1,000 ML BOTTLE GT PRN (10:24)
[2019-02-23] MEDS: THERAHONEY GEL 1.5 OZ TUBE TP SCH ×2 (10:50→21:00)
[2019-02-23] MEDS: Z GUARD REMEDY 2 OZ OINT TP SCH ×2 (10:50→21:00)
[2019-02-23 12:00] VITALS: BP 144/78
[2019-02-23 18:41] VITALS: BP 140/90
[2019-02-23 19:43] VITALS: BP 141/83
[2019-02-23] MEDS: ENOXAPARIN SODIUM 40 MG/0.4 ML DISP.SYRIN SQ SCH (21:00)
[2019-02-23] MEDS: ATORVASTATIN 10 MG TABLET GT SCH (22:29)
[2019-02-23] MEDS: INSULIN GLARGINE, 100 UNIT/ML CARTRIDGE SQ SCH (22:29)
[2019-02-24] VITALS: BP 142/72
[2019-02-24] MEDS: ALBUTEROL FS 2.5 MG/3 ML VIAL.NEB NEB SCH ×4 (01:27→19:55)
[2019-02-24] MEDS: IPRATROPIUM NEB FS 0.5 MG/2.5 ML AMPUL.NEB NEB SCH ×4 (01:27→19:55)
[2019-02-24] MEDS: DILTIAZEM HCL 30 MG TABLET GT SCH ×4 (05:58→23:31)
[2019-02-24] MEDS: BLOOD SUGAR DIAGNOSTIC 1 EACH STRIP IN SCH ×4 (05:58→23:31)
[2019-02-24] MEDS: INSULIN ASPART/LISPRO 100 UNIT/ML CARTRIDGE SQ PRN ×3 (05:58→17:50)
[2019-02-24 06:00] VITALS: BP 126/69
[2019-02-24] MEDS: GLUCERNA 1.2 1,000 ML BOTTLE GT PRN (06:59)
[2019-02-24 07:41] VITALS: BP 136/77
[2019-02-24] MEDS: HYDROGEN PEROXIDE 480 ML BOTTLE TP SCH ×2 (08:13→20:16)
[2019-02-24] MEDS: FERROUS SULFATE - FOR SA ONLY 330 MG/7.5 ML UDC GT SCH (08:17)
[2019-02-24] MEDS: LEVETIRACETAM SOL (5 ML) 100 MG/ML UDC GT SCH ×2 (08:18→20:14)
[2019-02-24] MEDS: DOCUSATE SODIUM LIQ 100 MG/10 ML UDC GT SCH ×2 (08:18→16:00)
[2019-02-24] MEDS: ACIDOPHILUS/BULGARICUS 1 EACH TAB.CHEW GT SCH ×2 (08:19→16:01)
[2019-02-24] MEDS: MULTIVIT W/MINERALS 1 TAB TABLET GT SCH (08:20)
[2019-02-24] MEDS: ZINC SULFATE 220 MG CAPSULE GT SCH (08:22)
[2019-02-24] MEDS: ACETAMINOPHEN 650 MG/20 ML UDC- SA PATIENTS-PAIN ONLY GT SCH ×2 (08:22→20:14)
[2019-02-24] MEDS: ASCORBIC ACID 500 MG TABLET GT SCH (08:22)
[2019-02-24] MEDS: Z GUARD REMEDY 2 OZ OINT TP SCH ×2 (08:23→20:16)
[2019-02-24] MEDS: THERAHONEY GEL 1.5 OZ TUBE TP SCH ×2 (08:23→20:16)
[2019-02-24] MEDS: OMEPRAZOLE 20 MG CAPSULE.DR GT SCH (08:25)
[2019-02-24 12:03] VITALS: BP 124/79
[2019-02-24 18:09] VITALS: BP 134/88
[2019-02-24 19:50] VITALS: BP 128/77
[2019-02-24] MEDS: ENOXAPARIN SODIUM 40 MG/0.4 ML DISP.SYRIN SQ SCH (20:17)
[2019-02-24] MEDS: ATORVASTATIN 10 MG TABLET GT SCH (21:01)
[2019-02-24] MEDS: INSULIN GLARGINE, 100 UNIT/ML CARTRIDGE SQ SCH (21:42)
--- NOTE | 2019-02-24 21:45 | NUR ---
SUBACUTE RN NOTE: PATIENT BLOOD SUGAR LEVEL 141MG/DL, PATIENT TO RECEIVE LANTUS 26 UNITS PER MD ORDER AND NO INSULIN PER SLIDING SCALE. NO S/S OF HYPER/HYPOGLYCEMIA NOTED, G-TUBE FEEDING RUNNING. WILL CONTINUE TO MONITOR.
[2019-02-25 00:15] VITALS: BP 120/72
[2019-02-25] MEDS: IPRATROPIUM NEB FS 0.5 MG/2.5 ML AMPUL.NEB NEB SCH ×4 (00:49→20:16)
[2019-02-25] MEDS: ALBUTEROL FS 2.5 MG/3 ML VIAL.NEB NEB SCH ×4 (00:49→20:16)
[2019-02-25] MEDS: BLOOD SUGAR DIAGNOSTIC 1 EACH STRIP IN SCH ×3 (05:15→17:24)
[2019-02-25] MEDS: DILTIAZEM HCL 30 MG TABLET GT SCH ×3 (05:15→17:24)
[2019-02-25 06:20] VITALS: BP_SYST 118; BP_SYST 126; BP_DIAS 70
--- NOTE | 2019-02-25 06:20 | NUR ---
SUBACUTE RN NOTE: PATIENT BLOOD SUGAR LEVEL 130MG/DL, NO INSULIN NEEDED PER SLIDING SCALE. NO S/S OF HYPER/HYPOGLYCEMIA NOTED. WILL CONTINUE TO MONITOR.
[2019-02-25] MEDS: GLUCERNA 1.2 1,000 ML BOTTLE GT PRN (06:47)
[2019-02-25 08:02] VITALS: BP 115/69
[2019-02-25] MEDS: HYDROGEN PEROXIDE 480 ML BOTTLE TP SCH ×2 (08:35→21:09)
[2019-02-25] MEDS: LEVETIRACETAM SOL (5 ML) 100 MG/ML UDC GT SCH ×2 (09:00→21:24)
[2019-02-25] MEDS: DOCUSATE SODIUM LIQ 100 MG/10 ML UDC GT SCH ×2 (09:00→16:36)
[2019-02-25] MEDS: ASCORBIC ACID 500 MG TABLET GT SCH (09:00)
[2019-02-25] MEDS: ACIDOPHILUS/BULGARICUS 1 EACH TAB.CHEW GT SCH ×2 (09:00→16:36)
[2019-02-25] MEDS: MULTIVIT W/MINERALS 1 TAB TABLET GT SCH (09:00)
[2019-02-25] MEDS: ZINC SULFATE 220 MG CAPSULE GT SCH (09:00)
[2019-02-25] MEDS: FERROUS SULFATE - FOR SA ONLY 330 MG/7.5 ML UDC GT SCH (09:00)
[2019-02-25] MEDS: OMEPRAZOLE 20 MG CAPSULE.DR GT SCH (09:00)
[2019-02-25] MEDS: ACETAMINOPHEN 650 MG/20 ML UDC- SA PATIENTS-PAIN ONLY GT SCH ×2 (10:30→21:24)
[2019-02-25] MEDS: Z GUARD REMEDY 2 OZ OINT TP SCH ×2 (11:00→21:24)
[2019-02-25] MEDS: THERAHONEY GEL 1.5 OZ TUBE TP SCH ×2 (11:00→21:24)
[2019-02-25 12:00] VITALS: BP 135/77
[2019-02-25] MEDS: INSULIN ASPART/LISPRO 100 UNIT/ML CARTRIDGE SQ PRN ×2 (13:52→17:24)
[2019-02-25 18:04] VITALS: BP 132/68
[2019-02-25] MEDS: ATORVASTATIN 10 MG TABLET GT SCH (21:24)
[2019-02-25] MEDS: ENOXAPARIN SODIUM 40 MG/0.4 ML DISP.SYRIN SQ SCH (21:24)
[2019-02-25] MEDS: INSULIN GLARGINE, 100 UNIT/ML CARTRIDGE SQ SCH (21:26)
--- NOTE | 2019-02-25 21:32 | NUR ---
PT RECEIVE STABLE ON 28% FIO2 VIA T MASK, TRACH PATENT AND SECURED, ABELARDO WAHL AND RAFFI BAG IS AT BEDSIDE, WILL CONTINUE TO MONITOR Addendum: 02/25/19 at 2132 by BEN FOOTE RT Amended: Links added.
[2019-02-26] VITALS (7 sets, daily range): BP systolic 126–150; BP diastolic 64–81
[2019-02-26] MEDS: BLOOD SUGAR DIAGNOSTIC 1 EACH STRIP IN SCH ×4 (00:29→17:41)
[2019-02-26] MEDS: DILTIAZEM HCL 30 MG TABLET GT SCH ×4 (00:29→17:02)
[2019-02-26] MEDS: ALBUTEROL FS 2.5 MG/3 ML VIAL.NEB NEB SCH ×4 (01:13→19:56)
[2019-02-26] MEDS: IPRATROPIUM NEB FS 0.5 MG/2.5 ML AMPUL.NEB NEB SCH ×4 (01:13→19:56)
[2019-02-26] MEDS: HYDROGEN PEROXIDE 480 ML BOTTLE TP SCH ×2 (07:54→20:24)
[2019-02-26] MEDS: DOCUSATE SODIUM LIQ 100 MG/10 ML UDC GT SCH ×2 (08:15→16:59)
[2019-02-26] MEDS: LEVETIRACETAM SOL (5 ML) 100 MG/ML UDC GT SCH ×2 (08:15→21:39)
[2019-02-26] MEDS: ACIDOPHILUS/BULGARICUS 1 EACH TAB.CHEW GT SCH ×2 (08:15→16:59)
[2019-02-26] MEDS: FERROUS SULFATE - FOR SA ONLY 330 MG/7.5 ML UDC GT SCH (08:15)
[2019-02-26] MEDS: OMEPRAZOLE 20 MG CAPSULE.DR GT SCH (08:16)
[2019-02-26] MEDS: MULTIVIT W/MINERALS 1 TAB TABLET GT SCH (08:16)
[2019-02-26] MEDS: ACETAMINOPHEN 650 MG/20 ML UDC- SA PATIENTS-PAIN ONLY GT SCH ×2 (08:16→21:39)
[2019-02-26] MEDS: ASCORBIC ACID 500 MG TABLET GT SCH (08:16)
[2019-02-26] MEDS: ZINC SULFATE 220 MG CAPSULE GT SCH (08:16)
[2019-02-26] MEDS: Z GUARD REMEDY 2 OZ OINT TP SCH ×2 (09:35→21:40)
[2019-02-26] MEDS: THERAHONEY GEL 1.5 OZ TUBE TP SCH ×2 (09:35→21:40)
[2019-02-26] MEDS: INSULIN ASPART/LISPRO 100 UNIT/ML CARTRIDGE SQ PRN (18:08)
--- NOTE | 2019-02-26 20:35 | NUR ---
PT RCVD TRACH'D ON COOL AEROSOL WITH CHARTED SETTINGS. PT [place] TX WELL. SX DONE. PT TRACH IS PATENT AND SECURE. AMBU BAG AT BEDSIDE. NO SOB NOTED. Addendum: 02/26/19 at 2034 by JOEY PAPPAS RT Amended: Links added.
[2019-02-26] MEDS: INSULIN GLARGINE, 100 UNIT/ML CARTRIDGE SQ SCH (21:40)
[2019-02-26] MEDS: ATORVASTATIN 10 MG TABLET GT SCH (21:40)
[2019-02-26] MEDS: ENOXAPARIN SODIUM 40 MG/0.4 ML DISP.SYRIN SQ SCH (21:40)
[2019-02-27 00:16] VITALS: BP 136/58
[2019-02-27] MEDS: DILTIAZEM HCL 30 MG TABLET GT SCH ×4 (00:18→17:50)
[2019-02-27] MEDS: BLOOD SUGAR DIAGNOSTIC 1 EACH STRIP IN SCH ×4 (00:18→17:50)
[2019-02-27] MEDS: IPRATROPIUM NEB FS 0.5 MG/2.5 ML AMPUL.NEB NEB SCH ×4 (00:48→20:09)
[2019-02-27] MEDS: ALBUTEROL FS 2.5 MG/3 ML VIAL.NEB NEB SCH ×4 (00:49→20:09)
[2019-02-27 06:05] VITALS: BP 132/69
[2019-02-27 08:00] VITALS: BP 120/52
[2019-02-27] MEDS: HYDROGEN PEROXIDE 480 ML BOTTLE TP SCH ×2 (08:09→21:43)
--- NOTE | 2019-02-27 09:25 | NUR ---
SW emailed the pt.'s daughter/conservator, Kelly Wong [phone] to inform her about the Family Satisfaction Survey and its purpose. SW will await response to determine if family prefers to fill survey out upon next visit or have it mailed to them.
[2019-02-27] MEDS: FERROUS SULFATE - FOR SA ONLY 330 MG/7.5 ML UDC GT SCH (09:48)
[2019-02-27] MEDS: DOCUSATE SODIUM LIQ 100 MG/10 ML UDC GT SCH ×2 (09:48→16:18)
[2019-02-27] MEDS: MULTIVIT W/MINERALS 1 TAB TABLET GT SCH (09:49)
[2019-02-27] MEDS: ACIDOPHILUS/BULGARICUS 1 EACH TAB.CHEW GT SCH ×2 (09:49→16:18)
[2019-02-27] MEDS: OMEPRAZOLE 20 MG CAPSULE.DR GT SCH (09:49)
[2019-02-27] MEDS: LEVETIRACETAM SOL (5 ML) 100 MG/ML UDC GT SCH ×2 (09:49→20:52)
[2019-02-27] MEDS: ASCORBIC ACID 500 MG TABLET GT SCH (09:50)
[2019-02-27] MEDS: Z GUARD REMEDY 2 OZ OINT TP SCH ×2 (09:50→21:26)
[2019-02-27] MEDS: ACETAMINOPHEN 650 MG/20 ML UDC- SA PATIENTS-PAIN ONLY GT SCH ×2 (09:50→20:52)
[2019-02-27] MEDS: ZINC SULFATE 220 MG CAPSULE GT SCH (09:50)
[2019-02-27] MEDS: THERAHONEY GEL 1.5 OZ TUBE TP SCH ×2 (10:50→21:26)
[2019-02-27] MEDS: INSULIN ASPART/LISPRO 100 UNIT/ML CARTRIDGE SQ PRN ×2 (11:33→17:51)
[2019-02-27 12:00] VITALS: BP 112/60
[2019-02-27 18:40] VITALS: BP 144/84
[2019-02-27 19:44] VITALS: BP 127/74
[2019-02-27] MEDS: ENOXAPARIN SODIUM 40 MG/0.4 ML DISP.SYRIN SQ SCH (20:53)
[2019-02-27] MEDS: GLUCERNA 1.2 1,000 ML BOTTLE GT PRN (21:26)
[2019-02-27] MEDS: ATORVASTATIN 10 MG TABLET GT SCH (21:26)
--- NOTE | 2019-02-27 21:51 | NUR ---
PT RECEIVE STABLE ON 285 FIO2 C/A VIA T BAR, TRACH PATENT AND SECURED SPARE TRACH AND AMBToña BAG IS AT BEDSIDE, WILL CONTINUE TO MONITOR Addendum: 02/27/19 at 2151 by BEN FOOTE RT Amended: Links added.
[2019-02-27] MEDS: INSULIN GLARGINE, 100 UNIT/ML CARTRIDGE SQ SCH (22:25)
[2019-02-28] MEDS: DILTIAZEM HCL 30 MG TABLET GT SCH ×4 (00:04→18:00)
[2019-02-28] MEDS: BLOOD SUGAR DIAGNOSTIC 1 EACH STRIP IN SCH ×4 (00:04→18:44)
[2019-02-28 00:05] VITALS: BP 137/88
[2019-02-28] MEDS: INSULIN ASPART/LISPRO 100 UNIT/ML CARTRIDGE SQ PRN ×4 (00:06→18:45)
[2019-02-28] MEDS: IPRATROPIUM NEB FS 0.5 MG/2.5 ML AMPUL.NEB NEB SCH ×4 (00:52→20:03)
[2019-02-28] MEDS: ALBUTEROL FS 2.5 MG/3 ML VIAL.NEB NEB SCH ×4 (00:52→20:03)
[2019-02-28 06:00] VITALS: BP 144/70
[2019-02-28 08:01] VITALS: BP 131/74
[2019-02-28] MEDS: FERROUS SULFATE - FOR SA ONLY 330 MG/7.5 ML UDC GT SCH (09:00)
[2019-02-28] MEDS: ACETAMINOPHEN 650 MG/20 ML UDC- SA PATIENTS-PAIN ONLY GT SCH ×2 (09:00→21:53)
[2019-02-28] MEDS: MULTIVIT W/MINERALS 1 TAB TABLET GT SCH (09:00)
[2019-02-28] MEDS: DOCUSATE SODIUM LIQ 100 MG/10 ML UDC GT SCH ×2 (09:00→17:00)
[2019-02-28] MEDS: ZINC SULFATE 220 MG CAPSULE GT SCH (09:00)
[2019-02-28] MEDS: ASCORBIC ACID 500 MG TABLET GT SCH (09:00)
[2019-02-28] MEDS: HYDROGEN PEROXIDE 480 ML BOTTLE TP SCH ×2 (09:00→21:02)
[2019-02-28] MEDS: ACIDOPHILUS/BULGARICUS 1 EACH TAB.CHEW GT SCH ×2 (09:00→17:00)
[2019-02-28] MEDS: OMEPRAZOLE 20 MG CAPSULE.DR GT SCH (09:00)
[2019-02-28] MEDS: LEVETIRACETAM SOL (5 ML) 100 MG/ML UDC GT SCH ×2 (09:00→21:53)
[2019-02-28] MEDS: Z GUARD REMEDY 2 OZ OINT TP SCH ×2 (09:30→21:00)
[2019-02-28] MEDS: THERAHONEY GEL 1.5 OZ TUBE TP SCH ×2 (09:30→21:00)
[2019-02-28 12:00] VITALS: BP 153/75
[2019-02-28] MEDS: GLUCERNA 1.2 1,000 ML BOTTLE GT PRN (16:32)
[2019-02-28 18:00] VITALS: BP 112/48
[2019-02-28 20:15] VITALS: BP 132/65
[2019-02-28] MEDS: ENOXAPARIN SODIUM 40 MG/0.4 ML DISP.SYRIN SQ SCH (21:00)
[2019-02-28] MEDS: ATORVASTATIN 10 MG TABLET GT SCH (21:53)
[2019-02-28] MEDS: INSULIN GLARGINE, 100 UNIT/ML CARTRIDGE SQ SCH (22:32)
[2019-03-01] VITALS: BP 137/70
[2019-03-01] MEDS: BLOOD SUGAR DIAGNOSTIC 1 EACH STRIP IN SCH ×4 (00:17→17:09)
[2019-03-01] MEDS: INSULIN ASPART/LISPRO 100 UNIT/ML CARTRIDGE SQ PRN ×4 (00:19→17:10)
[2019-03-01] MEDS: DILTIAZEM HCL 30 MG TABLET GT SCH ×4 (00:37→17:09)
[2019-03-01] MEDS: IPRATROPIUM NEB FS 0.5 MG/2.5 ML AMPUL.NEB NEB SCH ×4 (01:38→19:54)
[2019-03-01] MEDS: ALBUTEROL FS 2.5 MG/3 ML VIAL.NEB NEB SCH ×4 (01:38→19:54)
[2019-03-01 06:00] VITALS: BP 134/76
[2019-03-01 08:14] VITALS: BP 144/76
[2019-03-01] MEDS: HYDROGEN PEROXIDE 480 ML BOTTLE TP SCH ×2 (08:57→21:24)
[2019-03-01] MEDS: LEVETIRACETAM SOL (5 ML) 100 MG/ML UDC GT SCH ×2 (09:00→20:08)
[2019-03-01] MEDS: MULTIVIT W/MINERALS 1 TAB TABLET GT SCH (09:00)
[2019-03-01] MEDS: OMEPRAZOLE 20 MG CAPSULE.DR GT SCH (09:00)
[2019-03-01] MEDS: FERROUS SULFATE - FOR SA ONLY 330 MG/7.5 ML UDC GT SCH (09:00)
[2019-03-01] MEDS: ZINC SULFATE 220 MG CAPSULE GT SCH (09:00)
[2019-03-01] MEDS: DOCUSATE SODIUM LIQ 100 MG/10 ML UDC GT SCH ×2 (09:00→17:08)
[2019-03-01] MEDS: ACIDOPHILUS/BULGARICUS 1 EACH TAB.CHEW GT SCH ×2 (09:00→17:08)
[2019-03-01] MEDS: ASCORBIC ACID 500 MG TABLET GT SCH (09:00)
[2019-03-01] MEDS: ACETAMINOPHEN 650 MG/20 ML UDC- SA PATIENTS-PAIN ONLY GT SCH ×2 (09:00→20:08)
[2019-03-01] MEDS: THERAHONEY GEL 1.5 OZ TUBE TP SCH ×2 (09:30→20:10)
[2019-03-01] MEDS: Z GUARD REMEDY 2 OZ OINT TP SCH ×2 (09:30→20:09)
[2019-03-01] MEDS: GLUCERNA 1.2 1,000 ML BOTTLE GT PRN (11:05)
[2019-03-01 12:00] VITALS: BP 144/77
[2019-03-01] MEDS: ENOXAPARIN SODIUM 40 MG/0.4 ML DISP.SYRIN SQ SCH (20:09)
[2019-03-01 20:39] VITALS: BP 130/72
[2019-03-01] MEDS: ATORVASTATIN 10 MG TABLET GT SCH (21:21)
[2019-03-01] MEDS: INSULIN GLARGINE, 100 UNIT/ML CARTRIDGE SQ SCH (21:24)
[2019-03-02] MEDS: DILTIAZEM HCL 30 MG TABLET GT SCH ×4 (00:21→17:07)
[2019-03-02] MEDS: BLOOD SUGAR DIAGNOSTIC 1 EACH STRIP IN SCH ×5 (00:21→23:57)
[2019-03-02] MEDS: INSULIN ASPART/LISPRO 100 UNIT/ML CARTRIDGE SQ PRN ×4 (00:23→23:58)
[2019-03-02 00:27] VITALS: BP 134/60
[2019-03-02] MEDS: ALBUTEROL FS 2.5 MG/3 ML VIAL.NEB NEB SCH ×4 (02:01→19:37)
[2019-03-02] MEDS: IPRATROPIUM NEB FS 0.5 MG/2.5 ML AMPUL.NEB NEB SCH ×4 (02:01→19:37)
[2019-03-02] MEDS: GLUCERNA 1.2 1,000 ML BOTTLE GT PRN ×2 (03:46→22:15)
[2019-03-02 06:09] VITALS: BP 151/73
[2019-03-02 07:12] VITALS: BP 135/62
[2019-03-02] MEDS: FERROUS SULFATE - FOR SA ONLY 330 MG/7.5 ML UDC GT SCH (08:20)
[2019-03-02] MEDS: DOCUSATE SODIUM LIQ 100 MG/10 ML UDC GT SCH ×2 (08:20→17:07)
[2019-03-02] MEDS: LEVETIRACETAM SOL (5 ML) 100 MG/ML UDC GT SCH ×2 (08:21→21:15)
[2019-03-02] MEDS: OMEPRAZOLE 20 MG CAPSULE.DR GT SCH (08:21)
[2019-03-02] MEDS: ACIDOPHILUS/BULGARICUS 1 EACH TAB.CHEW GT SCH ×2 (08:21→17:07)
[2019-03-02] MEDS: MULTIVIT W/MINERALS 1 TAB TABLET GT SCH (08:22)
[2019-03-02] MEDS: ASCORBIC ACID 500 MG TABLET GT SCH (08:23)
[2019-03-02] MEDS: ACETAMINOPHEN 650 MG/20 ML UDC- SA PATIENTS-PAIN ONLY GT SCH ×2 (08:23→21:15)
[2019-03-02] MEDS: ZINC SULFATE 220 MG CAPSULE GT SCH (08:23)
[2019-03-02] MEDS: Z GUARD REMEDY 2 OZ OINT TP SCH ×2 (08:24→21:15)
[2019-03-02] MEDS: THERAHONEY GEL 1.5 OZ TUBE TP SCH ×2 (08:24→21:15)
[2019-03-02] MEDS: HYDROGEN PEROXIDE 480 ML BOTTLE TP SCH ×2 (09:00→21:14)
[2019-03-02 12:28] VITALS: BP 133/68
[2019-03-02 18:21] VITALS: BP 117/66
[2019-03-02 19:58] VITALS: BP 139/72
[2019-03-02] MEDS: ATORVASTATIN 10 MG TABLET GT SCH (21:15)
[2019-03-02] MEDS: ENOXAPARIN SODIUM 40 MG/0.4 ML DISP.SYRIN SQ SCH (21:15)
[2019-03-02] MEDS: INSULIN GLARGINE, 100 UNIT/ML CARTRIDGE SQ SCH (21:16)
[2019-03-03] VITALS: BP 129/68
[2019-03-03] MEDS: IPRATROPIUM NEB FS 0.5 MG/2.5 ML AMPUL.NEB NEB SCH ×4 (01:40→19:38)
[2019-03-03] MEDS: ALBUTEROL FS 2.5 MG/3 ML VIAL.NEB NEB SCH ×4 (01:40→19:38)
[2019-03-03] MEDS: BLOOD SUGAR DIAGNOSTIC 1 EACH STRIP IN SCH ×4 (05:41→23:14)
[2019-03-03] MEDS: INSULIN ASPART/LISPRO 100 UNIT/ML CARTRIDGE SQ PRN ×5 (05:41→23:15)
[2019-03-03] MEDS: DILTIAZEM HCL 30 MG TABLET GT SCH ×5 (05:41→23:14)
[2019-03-03 06:00] VITALS: BP 154/88
[2019-03-03 07:30] VITALS: BP 149/69
[2019-03-03] MEDS: LEVETIRACETAM SOL (5 ML) 100 MG/ML UDC GT SCH ×2 (08:28→21:52)
[2019-03-03] MEDS: FERROUS SULFATE - FOR SA ONLY 330 MG/7.5 ML UDC GT SCH (08:28)
[2019-03-03] MEDS: DOCUSATE SODIUM LIQ 100 MG/10 ML UDC GT SCH ×2 (08:28→17:19)
[2019-03-03] MEDS: ACIDOPHILUS/BULGARICUS 1 EACH TAB.CHEW GT SCH ×2 (08:29→17:19)
[2019-03-03] MEDS: OMEPRAZOLE 20 MG CAPSULE.DR GT SCH (08:29)
[2019-03-03] MEDS: ACETAMINOPHEN 650 MG/20 ML UDC- SA PATIENTS-PAIN ONLY GT SCH ×2 (08:31→21:53)
[2019-03-03] MEDS: MULTIVIT W/MINERALS 1 TAB TABLET GT SCH (08:31)
[2019-03-03] MEDS: ASCORBIC ACID 500 MG TABLET GT SCH (08:31)
[2019-03-03] MEDS: ZINC SULFATE 220 MG CAPSULE GT SCH (08:31)
[2019-03-03] MEDS: HYDROGEN PEROXIDE 480 ML BOTTLE TP SCH ×2 (09:00→21:05)
[2019-03-03] MEDS: Z GUARD REMEDY 2 OZ OINT TP SCH ×2 (09:00→21:53)
[2019-03-03] MEDS: THERAHONEY GEL 1.5 OZ TUBE TP SCH ×2 (09:00→21:53)
[2019-03-03 12:00] VITALS: BP 145/75
[2019-03-03 18:00] VITALS: BP 131/63
[2019-03-03] MEDS: GLUCERNA 1.2 1,000 ML BOTTLE GT PRN (18:15)
[2019-03-03 19:36] VITALS: BP 126/66
[2019-03-03] MEDS: ENOXAPARIN SODIUM 40 MG/0.4 ML DISP.SYRIN SQ SCH (21:53)
[2019-03-03] MEDS: INSULIN GLARGINE, 100 UNIT/ML CARTRIDGE SQ SCH (21:54)
[2019-03-03] MEDS: ATORVASTATIN 10 MG TABLET GT SCH (21:54)
[2019-03-04] MEDS: IPRATROPIUM NEB FS 0.5 MG/2.5 ML AMPUL.NEB NEB SCH ×4 (01:42→19:04)
[2019-03-04] MEDS: ALBUTEROL FS 2.5 MG/3 ML VIAL.NEB NEB SCH ×4 (01:42→19:04)
[2019-03-04 03:21] VITALS: BP 136/68
--- NOTE | 2019-03-04 05:49 | NUR ---
RT Patient was received on 28% cool aerosol.Breathing treatment and tracheal suctioning was done. Trach tube patent and secured.Patient stable throughout the shift. Will continue to monitor. Addendum: 03/04/19 at 0550 by SHYANN BARRETT RT Amended: Links added.
[2019-03-04] MEDS: DILTIAZEM HCL 30 MG TABLET GT SCH ×4 (05:52→23:54)
[2019-03-04] MEDS: BLOOD SUGAR DIAGNOSTIC 1 EACH STRIP IN SCH ×4 (05:52→23:54)
[2019-03-04] MEDS: INSULIN ASPART/LISPRO 100 UNIT/ML CARTRIDGE SQ PRN ×3 (05:53→23:55)
[2019-03-04 06:13] VITALS: BP 133/64
[2019-03-04 07:59] VITALS: BP 141/71
[2019-03-04] MEDS: HYDROGEN PEROXIDE 480 ML BOTTLE TP SCH ×2 (08:02→21:16)
[2019-03-04] MEDS: FERROUS SULFATE - FOR SA ONLY 330 MG/7.5 ML UDC GT SCH (09:00)
[2019-03-04] MEDS: ACIDOPHILUS/BULGARICUS 1 EACH TAB.CHEW GT SCH ×2 (09:00→16:43)
[2019-03-04] MEDS: ZINC SULFATE 220 MG CAPSULE GT SCH (09:00)
[2019-03-04] MEDS: ASCORBIC ACID 500 MG TABLET GT SCH (09:00)
[2019-03-04] MEDS: DOCUSATE SODIUM LIQ 100 MG/10 ML UDC GT SCH ×2 (09:00→16:43)
[2019-03-04] MEDS: OMEPRAZOLE 20 MG CAPSULE.DR GT SCH (09:00)
[2019-03-04] MEDS: MULTIVIT W/MINERALS 1 TAB TABLET GT SCH (09:00)
[2019-03-04] MEDS: LEVETIRACETAM SOL (5 ML) 100 MG/ML UDC GT SCH ×2 (09:00→21:06)
[2019-03-04] MEDS: ACETAMINOPHEN 650 MG/20 ML UDC- SA PATIENTS-PAIN ONLY GT SCH ×2 (10:00→21:07)
[2019-03-04] MEDS: THERAHONEY GEL 1.5 OZ TUBE TP SCH ×2 (10:30→22:20)
[2019-03-04] MEDS: Z GUARD REMEDY 2 OZ OINT TP SCH ×2 (10:30→22:20)
[2019-03-04 12:00] VITALS: BP 154/88
[2019-03-04] MEDS: GLUCERNA 1.2 1,000 ML BOTTLE GT PRN (13:17)
--- NOTE | 2019-03-04 15:30 | NUR ---
SW received email response from pt.'s responsible constitution party, Kelly Wong stating that SW should leave the Family Satisfaction Survey in pt.'s drawer and Kelly can fill it out upon her next visit. SW placed Family Satisfaction Survey in pt.'s bedside table and will collect it once completed by family.
[2019-03-04 18:42] VITALS: BP 147/78
[2019-03-04 20:03] VITALS: BP 120/70
[2019-03-04] MEDS: ATORVASTATIN 10 MG TABLET GT SCH (21:08)
[2019-03-04] MEDS: ENOXAPARIN SODIUM 40 MG/0.4 ML DISP.SYRIN SQ SCH (21:08)
[2019-03-04] MEDS: INSULIN GLARGINE, 100 UNIT/ML CARTRIDGE SQ SCH (22:22)
[2019-03-05] VITALS: BP 120/60
[2019-03-05] MEDS: IPRATROPIUM NEB FS 0.5 MG/2.5 ML AMPUL.NEB NEB SCH ×5 (00:43→23:09)
[2019-03-05] MEDS: ALBUTEROL FS 2.5 MG/3 ML VIAL.NEB NEB SCH ×5 (00:43→23:09)
[2019-03-05] MEDS: BLOOD SUGAR DIAGNOSTIC 1 EACH STRIP IN SCH ×4 (06:14→23:37)
[2019-03-05] MEDS: DILTIAZEM HCL 30 MG TABLET GT SCH ×4 (06:14→23:37)
[2019-03-05] MEDS: GLUCERNA 1.2 1,000 ML BOTTLE GT PRN (06:14)
[2019-03-05] MEDS: INSULIN ASPART/LISPRO 100 UNIT/ML CARTRIDGE SQ PRN ×4 (06:15→23:38)
[2019-03-05 06:37] VITALS: BP 128/64
[2019-03-05 07:38] VITALS: BP 118/72
[2019-03-05] MEDS: ACETAMINOPHEN 650 MG/20 ML UDC- SA PATIENTS-PAIN ONLY GT SCH ×2 (08:51→21:00)
[2019-03-05] MEDS: MULTIVIT W/MINERALS 1 TAB TABLET GT SCH (08:51)
[2019-03-05] MEDS: DOCUSATE SODIUM LIQ 100 MG/10 ML UDC GT SCH ×2 (08:51→17:43)
[2019-03-05] MEDS: FERROUS SULFATE - FOR SA ONLY 330 MG/7.5 ML UDC GT SCH (08:51)
[2019-03-05] MEDS: OMEPRAZOLE 20 MG CAPSULE.DR GT SCH (08:51)
[2019-03-05] MEDS: ZINC SULFATE 220 MG CAPSULE GT SCH (08:51)
[2019-03-05] MEDS: ACIDOPHILUS/BULGARICUS 1 EACH TAB.CHEW GT SCH ×2 (08:51→17:43)
[2019-03-05] MEDS: LEVETIRACETAM SOL (5 ML) 100 MG/ML UDC GT SCH ×2 (08:51→21:00)
[2019-03-05] MEDS: ASCORBIC ACID 500 MG TABLET GT SCH (08:51)
[2019-03-05] MEDS: Z GUARD REMEDY 2 OZ OINT TP SCH ×2 (09:00→21:00)
[2019-03-05] MEDS: HYDROGEN PEROXIDE 480 ML BOTTLE TP SCH ×2 (09:00→21:00)
[2019-03-05] MEDS: THERAHONEY GEL 1.5 OZ TUBE TP SCH ×2 (09:30→21:00)
--- NOTE | 2019-03-05 09:59 | NUR ---
PT. IS AWAKE BUT UNABLE TO FOLLOW COMMANDS. MONTHLY TRACH CHANGE DONE WITH NEW PORTEX 9. TRACH CHANGED TOLERATED WELL WITHOUT ANY COMPLICATIONS. BREATH SOUNDS COARSE RHONCHI BILATERAL ON POST TRACH CHANGED. Addendum: 03/06/19 at 1104 by MOLLY CORONA RT Amended: Links added.
[2019-03-05 12:00] VITALS: BP 138/88
--- NOTE | 2019-03-05 12:00 | NUR ---
Routine trach tube change done by RT Webb, tolerated well, no bleeding noted. No s/sx of pain or resp. distress. Will continue to monitor.
[2019-03-05 18:18] VITALS: BP 135/79
[2019-03-05] MEDS: ENOXAPARIN SODIUM 40 MG/0.4 ML DISP.SYRIN SQ SCH (21:00)
[2019-03-05 21:26] VITALS: BP 138/81
[2019-03-05] MEDS: ATORVASTATIN 10 MG TABLET GT SCH (22:01)
[2019-03-05] MEDS: INSULIN GLARGINE, 100 UNIT/ML CARTRIDGE SQ SCH (22:01)
[2019-03-06 01:23] VITALS: BP 133/76
[2019-03-06] MEDS: BLOOD SUGAR DIAGNOSTIC 1 EACH STRIP IN SCH ×3 (05:47→18:42)
[2019-03-06] MEDS: DILTIAZEM HCL 30 MG TABLET GT SCH ×3 (05:47→18:42)
[2019-03-06] MEDS: INSULIN ASPART/LISPRO 100 UNIT/ML CARTRIDGE SQ PRN ×3 (05:49→18:43)
[2019-03-06 06:09] VITALS: BP 130/68
[2019-03-06 07:46] VITALS: BP 125/73
[2019-03-06] MEDS: ALBUTEROL FS 2.5 MG/3 ML VIAL.NEB NEB SCH ×3 (08:02→19:35)
[2019-03-06] MEDS: IPRATROPIUM NEB FS 0.5 MG/2.5 ML AMPUL.NEB NEB SCH ×3 (08:02→19:35)
[2019-03-06] MEDS: Z GUARD REMEDY 2 OZ OINT TP SCH ×2 (09:00→21:43)
[2019-03-06] MEDS: OMEPRAZOLE 20 MG CAPSULE.DR GT SCH (09:00)
[2019-03-06] MEDS: MULTIVIT W/MINERALS 1 TAB TABLET GT SCH (09:00)
[2019-03-06] MEDS: THERAHONEY GEL 1.5 OZ TUBE TP SCH ×2 (09:00→21:43)
[2019-03-06] MEDS: HYDROGEN PEROXIDE 480 ML BOTTLE TP SCH ×2 (09:00→19:35)
[2019-03-06] MEDS: ZINC SULFATE 220 MG CAPSULE GT SCH (09:00)
[2019-03-06] MEDS: ASCORBIC ACID 500 MG TABLET GT SCH (09:00)
[2019-03-06] MEDS: ACETAMINOPHEN 650 MG/20 ML UDC- SA PATIENTS-PAIN ONLY GT SCH ×2 (09:00→21:43)
[2019-03-06] MEDS: FERROUS SULFATE - FOR SA ONLY 330 MG/7.5 ML UDC GT SCH (09:00)
[2019-03-06] MEDS: ACIDOPHILUS/BULGARICUS 1 EACH TAB.CHEW GT SCH ×2 (09:00→17:00)
[2019-03-06] MEDS: DOCUSATE SODIUM LIQ 100 MG/10 ML UDC GT SCH ×2 (09:00→17:00)
[2019-03-06] MEDS: LEVETIRACETAM SOL (5 ML) 100 MG/ML UDC GT SCH ×2 (09:00→21:42)
[2019-03-06 12:00] VITALS: BP 140/70
[2019-03-06] MEDS: GLUCERNA 1.2 1,000 ML BOTTLE GT PRN (18:42)
[2019-03-06 19:28] VITALS: BP 125/65
--- NOTE | 2019-03-06 19:45 | NUR ---
RT NOTE: RECEIVED TRACH PT ON COOL AEROSOL. AMBU BAG @ BEDSIDE. Q6 BREATHING TX GIVEN PER MD ORDERS WITH NO ADVERSE REACTION NOTED. SX DONE PRN. TRACH PATENT AND SECURED. TRACH CARE DONE. NO RESP DISTRESS NOTED AT THIS TIME. WILL CONTINUE TO MONITOR PT Addendum: 03/07/19 at 0300 by BECKY DIALLO RT Amended: Links added.
[2019-03-06 20:40] VITALS: BP 132/76
[2019-03-06] MEDS: ENOXAPARIN SODIUM 40 MG/0.4 ML DISP.SYRIN SQ SCH (21:43)
[2019-03-06] MEDS: ATORVASTATIN 10 MG TABLET GT SCH (21:43)
[2019-03-06] MEDS: INSULIN GLARGINE, 100 UNIT/ML CARTRIDGE SQ SCH (21:56)
[2019-03-07] MEDS: BLOOD SUGAR DIAGNOSTIC 1 EACH STRIP IN SCH ×5 (00:28→23:50)
[2019-03-07] MEDS: DILTIAZEM HCL 30 MG TABLET GT SCH ×5 (00:28→23:50)
[2019-03-07] MEDS: INSULIN ASPART/LISPRO 100 UNIT/ML CARTRIDGE SQ PRN ×3 (00:29→23:51)
[2019-03-07 00:38] VITALS: BP 118/67
[2019-03-07] MEDS: IPRATROPIUM NEB FS 0.5 MG/2.5 ML AMPUL.NEB NEB SCH ×4 (01:19→19:50)
[2019-03-07] MEDS: ALBUTEROL FS 2.5 MG/3 ML VIAL.NEB NEB SCH ×4 (01:19→19:50)
[2019-03-07 06:19] VITALS: BP 123/75
[2019-03-07 07:19] VITALS: BP 123/69
[2019-03-07] MEDS: FERROUS SULFATE - FOR SA ONLY 330 MG/7.5 ML UDC GT SCH (08:33)
[2019-03-07] MEDS: ACETAMINOPHEN 650 MG/20 ML UDC- SA PATIENTS-PAIN ONLY GT SCH ×2 (08:33→21:17)
[2019-03-07] MEDS: DOCUSATE SODIUM LIQ 100 MG/10 ML UDC GT SCH ×2 (08:33→17:12)
[2019-03-07] MEDS: ACIDOPHILUS/BULGARICUS 1 EACH TAB.CHEW GT SCH ×2 (08:33→17:12)
[2019-03-07] MEDS: LEVETIRACETAM SOL (5 ML) 100 MG/ML UDC GT SCH ×2 (08:33→21:16)
[2019-03-07] MEDS: MULTIVIT W/MINERALS 1 TAB TABLET GT SCH (08:33)
[2019-03-07] MEDS: ASCORBIC ACID 500 MG TABLET GT SCH (08:33)
[2019-03-07] MEDS: ZINC SULFATE 220 MG CAPSULE GT SCH (08:33)
[2019-03-07] MEDS: OMEPRAZOLE 20 MG CAPSULE.DR GT SCH (08:33)
[2019-03-07] MEDS: Z GUARD REMEDY 2 OZ OINT TP SCH ×2 (09:00→21:17)
[2019-03-07] MEDS: THERAHONEY GEL 1.5 OZ TUBE TP SCH ×2 (09:00→21:17)
[2019-03-07] MEDS: HYDROGEN PEROXIDE 480 ML BOTTLE TP SCH ×2 (09:00→19:50)
[2019-03-07 12:00] VITALS: BP 172/82
[2019-03-07] MEDS: GLUCERNA 1.2 1,000 ML BOTTLE GT PRN (17:39)
[2019-03-07 18:00] VITALS: BP 140/84
[2019-03-07 19:59] VITALS: BP 132/70
[2019-03-07] MEDS: ATORVASTATIN 10 MG TABLET GT SCH (21:17)
[2019-03-07] MEDS: ENOXAPARIN SODIUM 40 MG/0.4 ML DISP.SYRIN SQ SCH (21:17)
[2019-03-07] MEDS: INSULIN GLARGINE, 100 UNIT/ML CARTRIDGE SQ SCH (21:18)
[2019-03-08 01:24] VITALS: BP 129/76
[2019-03-08] MEDS: IPRATROPIUM NEB FS 0.5 MG/2.5 ML AMPUL.NEB NEB SCH ×4 (01:48→19:37)
[2019-03-08] MEDS: ALBUTEROL FS 2.5 MG/3 ML VIAL.NEB NEB SCH ×4 (01:48→19:37)
[2019-03-08] MEDS: DILTIAZEM HCL 30 MG TABLET GT SCH ×3 (05:26→17:35)
[2019-03-08] MEDS: BLOOD SUGAR DIAGNOSTIC 1 EACH STRIP IN SCH ×3 (05:26→17:24)
[2019-03-08] MEDS: INSULIN ASPART/LISPRO 100 UNIT/ML CARTRIDGE SQ PRN ×3 (05:27→17:27)
[2019-03-08 06:26] VITALS: BP 110/66
[2019-03-08 07:35] VITALS: BP 139/68
[2019-03-08] MEDS: HYDROGEN PEROXIDE 480 ML BOTTLE TP SCH ×2 (09:00→21:15)
[2019-03-08] MEDS: DOCUSATE SODIUM LIQ 100 MG/10 ML UDC GT SCH ×2 (09:45→17:23)
[2019-03-08] MEDS: FERROUS SULFATE UDC 300 MG/5 ML UDC GT SCH (09:46)
[2019-03-08] MEDS: LEVETIRACETAM SOL (5 ML) 100 MG/ML UDC GT SCH ×2 (09:46→21:00)
[2019-03-08] MEDS: ACIDOPHILUS/BULGARICUS 1 EACH TAB.CHEW GT SCH ×2 (09:47→17:24)
[2019-03-08] MEDS: OMEPRAZOLE 20 MG CAPSULE.DR GT SCH (09:49)
[2019-03-08] MEDS: ACETAMINOPHEN 650 MG/20 ML UDC- SA PATIENTS-PAIN ONLY GT SCH ×3 (09:51→21:45)
[2019-03-08] MEDS: MULTIVIT W/MINERALS 1 TAB TABLET GT SCH (09:52)
[2019-03-08] MEDS: THERAHONEY GEL 1.5 OZ TUBE TP SCH ×2 (09:53→21:00)
[2019-03-08] MEDS: ASCORBIC ACID 500 MG TABLET GT SCH (09:53)
[2019-03-08] MEDS: Z GUARD REMEDY 2 OZ OINT TP SCH ×2 (09:53→21:00)
[2019-03-08] MEDS: ZINC SULFATE 220 MG CAPSULE GT SCH (09:53)
[2019-03-08] MEDS: GLUCERNA 1.2 1,000 ML BOTTLE GT PRN (10:08)
[2019-03-08 12:00] VITALS: BP 146/88
[2019-03-08 18:00] VITALS: BP 141/85
[2019-03-08 20:10] VITALS: BP 130/73
[2019-03-08] MEDS: ENOXAPARIN SODIUM 40 MG/0.4 ML DISP.SYRIN SQ SCH (21:00)
[2019-03-08] MEDS: ATORVASTATIN 10 MG TABLET GT SCH (22:17)
[2019-03-08] MEDS: INSULIN GLARGINE, 100 UNIT/ML CARTRIDGE SQ SCH (22:41)
[2019-03-09 00:18] VITALS: BP 125/58
[2019-03-09] MEDS: DILTIAZEM HCL 30 MG TABLET GT SCH ×5 (00:26→23:32)
[2019-03-09] MEDS: BLOOD SUGAR DIAGNOSTIC 1 EACH STRIP IN SCH ×5 (00:26→23:32)
[2019-03-09] MEDS: IPRATROPIUM NEB FS 0.5 MG/2.5 ML AMPUL.NEB NEB SCH ×4 (01:47→19:39)
[2019-03-09] MEDS: ALBUTEROL FS 2.5 MG/3 ML VIAL.NEB NEB SCH ×4 (01:47→19:39)
[2019-03-09] MEDS: GLUCERNA 1.2 1,000 ML BOTTLE GT PRN (02:09)
[2019-03-09 06:40] VITALS: BP 119/59
[2019-03-09 08:03] VITALS: BP 145/65
[2019-03-09] MEDS: HYDROGEN PEROXIDE 480 ML BOTTLE TP SCH ×2 (08:07→21:01)
[2019-03-09] MEDS: OMEPRAZOLE 20 MG CAPSULE.DR GT SCH (09:17)
[2019-03-09] MEDS: DOCUSATE SODIUM LIQ 100 MG/10 ML UDC GT SCH ×2 (09:17→16:56)
[2019-03-09] MEDS: LEVETIRACETAM SOL (5 ML) 100 MG/ML UDC GT SCH ×2 (09:17→21:27)
[2019-03-09] MEDS: MULTIVIT W/MINERALS 1 TAB TABLET GT SCH (09:17)
[2019-03-09] MEDS: ACIDOPHILUS/BULGARICUS 1 EACH TAB.CHEW GT SCH ×2 (09:17→16:56)
[2019-03-09] MEDS: FERROUS SULFATE UDC 300 MG/5 ML UDC GT SCH (09:17)
[2019-03-09] MEDS: ACETAMINOPHEN 650 MG/20 ML UDC- SA PATIENTS-PAIN ONLY GT SCH ×2 (09:18→21:28)
[2019-03-09] MEDS: ZINC SULFATE 220 MG CAPSULE GT SCH (09:19)
[2019-03-09] MEDS: ASCORBIC ACID 500 MG TABLET GT SCH (09:19)
[2019-03-09] MEDS: THERAHONEY GEL 1.5 OZ TUBE TP SCH ×2 (10:18→21:29)
[2019-03-09] MEDS: Z GUARD REMEDY 2 OZ OINT TP SCH ×2 (10:18→21:29)
[2019-03-09 12:00] VITALS: BP 117/73
[2019-03-09] MEDS: INSULIN ASPART/LISPRO 100 UNIT/ML CARTRIDGE SQ PRN ×3 (13:08→23:33)
[2019-03-09] MEDS: ONDANSETRON 4 MG TAB.RAPDIS GT PRN (15:20)
[2019-03-09 18:27] VITALS: BP 132/70
[2019-03-09 19:39] VITALS: BP 129/85
[2019-03-09] MEDS: ATORVASTATIN 10 MG TABLET GT SCH (21:29)
[2019-03-09] MEDS: ENOXAPARIN SODIUM 40 MG/0.4 ML DISP.SYRIN SQ SCH (21:29)
[2019-03-09] MEDS: INSULIN GLARGINE, 100 UNIT/ML CARTRIDGE SQ SCH (21:30)
[2019-03-10 00:02] VITALS: BP 126/74
[2019-03-10] MEDS: IPRATROPIUM NEB FS 0.5 MG/2.5 ML AMPUL.NEB NEB SCH ×4 (01:02→19:51)
[2019-03-10] MEDS: ALBUTEROL FS 2.5 MG/3 ML VIAL.NEB NEB SCH ×4 (01:02→19:51)
[2019-03-10] MEDS: GLUCERNA 1.2 1,000 ML BOTTLE GT PRN (05:14)
[2019-03-10] MEDS: DILTIAZEM HCL 30 MG TABLET GT SCH ×3 (05:14→17:51)
[2019-03-10] MEDS: INSULIN ASPART/LISPRO 100 UNIT/ML CARTRIDGE SQ PRN ×3 (05:39→17:53)
[2019-03-10] MEDS: BLOOD SUGAR DIAGNOSTIC 1 EACH STRIP IN SCH ×3 (05:39→17:51)
[2019-03-10 06:19] VITALS: BP 126/54
[2019-03-10 07:31] VITALS: BP 123/69
[2019-03-10] MEDS: HYDROGEN PEROXIDE 480 ML BOTTLE TP SCH ×2 (09:00→19:51)
[2019-03-10] MEDS: THERAHONEY GEL 1.5 OZ TUBE TP SCH ×2 (09:00→21:00)
[2019-03-10] MEDS: Z GUARD REMEDY 2 OZ OINT TP SCH ×2 (09:00→21:00)
[2019-03-10] MEDS: FERROUS SULFATE UDC 300 MG/5 ML UDC GT SCH (09:23)
[2019-03-10] MEDS: DOCUSATE SODIUM LIQ 100 MG/10 ML UDC GT SCH ×2 (09:23→17:50)
[2019-03-10] MEDS: MULTIVIT W/MINERALS 1 TAB TABLET GT SCH (09:23)
[2019-03-10] MEDS: OMEPRAZOLE 20 MG CAPSULE.DR GT SCH (09:23)
[2019-03-10] MEDS: LEVETIRACETAM SOL (5 ML) 100 MG/ML UDC GT SCH ×2 (09:23→20:58)
[2019-03-10] MEDS: ACIDOPHILUS/BULGARICUS 1 EACH TAB.CHEW GT SCH ×2 (09:23→17:50)
[2019-03-10] MEDS: ZINC SULFATE 220 MG CAPSULE GT SCH (09:24)
[2019-03-10] MEDS: ASCORBIC ACID 500 MG TABLET GT SCH (09:24)
[2019-03-10] MEDS: ACETAMINOPHEN 650 MG/20 ML UDC- SA PATIENTS-PAIN ONLY GT SCH ×2 (09:24→20:59)
[2019-03-10 12:00] VITALS: BP 128/72
[2019-03-10 18:00] VITALS: BP 145/81
[2019-03-10 19:46] VITALS: BP 141/80
--- NOTE | 2019-03-10 20:02 | NUR ---
RT NOTE: RECEIVED TRACH PT ON COOL AEROSOL. AMBU BAG @ BEDSIDE. Q6 BREATHING TX GIVEN PER MD ORDERS WITH NO ADVERSE REACTION NOTED. SX DONE PRN. TRACH PATENT AND SECURED. TRACH CARE DONE. NO RESP DISTRESS NOTED AT THIS TIME. WILL CONTINUE TO MONITOR PT Addendum: 03/11/19 at 0247 by BECKY DIALLO RT Amended: Links added.
[2019-03-10] MEDS: ATORVASTATIN 10 MG TABLET GT SCH (21:00)
[2019-03-10] MEDS: ENOXAPARIN SODIUM 40 MG/0.4 ML DISP.SYRIN SQ SCH (21:00)
[2019-03-10] MEDS: INSULIN GLARGINE, 100 UNIT/ML CARTRIDGE SQ SCH (22:34)
[2019-03-11] MEDS: BLOOD SUGAR DIAGNOSTIC 1 EACH STRIP IN SCH ×5 (00:17→23:36)
[2019-03-11] MEDS: DILTIAZEM HCL 30 MG TABLET GT SCH ×5 (00:17→23:36)
[2019-03-11] MEDS: INSULIN ASPART/LISPRO 100 UNIT/ML CARTRIDGE SQ PRN ×5 (00:18→23:37)
[2019-03-11 00:26] VITALS: BP 133/80
[2019-03-11] MEDS: GLUCERNA 1.2 1,000 ML BOTTLE GT PRN ×2 (00:33→17:00)
[2019-03-11] MEDS: IPRATROPIUM NEB FS 0.5 MG/2.5 ML AMPUL.NEB NEB SCH ×4 (01:47→19:49)
[2019-03-11] MEDS: ALBUTEROL FS 2.5 MG/3 ML VIAL.NEB NEB SCH ×4 (01:47→19:49)
[2019-03-11 06:55] VITALS: BP 133/75
[2019-03-11 07:28] VITALS: BP 129/76
[2019-03-11] MEDS: HYDROGEN PEROXIDE 480 ML BOTTLE TP SCH ×2 (08:20→19:49)
[2019-03-11] MEDS: DOCUSATE SODIUM LIQ 100 MG/10 ML UDC GT SCH ×2 (09:52→17:02)
[2019-03-11] MEDS: MULTIVIT W/MINERALS 1 TAB TABLET GT SCH (09:52)
[2019-03-11] MEDS: LEVETIRACETAM SOL (5 ML) 100 MG/ML UDC GT SCH ×2 (09:52→20:43)
[2019-03-11] MEDS: FERROUS SULFATE UDC 300 MG/5 ML UDC GT SCH (09:52)
[2019-03-11] MEDS: ACIDOPHILUS/BULGARICUS 1 EACH TAB.CHEW GT SCH ×2 (09:52→17:02)
[2019-03-11] MEDS: OMEPRAZOLE 20 MG CAPSULE.DR GT SCH (09:52)
[2019-03-11] MEDS: ACETAMINOPHEN 650 MG/20 ML UDC- SA PATIENTS-PAIN ONLY GT SCH ×2 (09:53→20:44)
[2019-03-11] MEDS: ZINC SULFATE 220 MG CAPSULE GT SCH (09:53)
[2019-03-11] MEDS: ASCORBIC ACID 500 MG TABLET GT SCH (09:53)
[2019-03-11] MEDS: Z GUARD REMEDY 2 OZ OINT TP SCH ×2 (10:53→20:45)
[2019-03-11] MEDS: THERAHONEY GEL 1.5 OZ TUBE TP SCH ×2 (10:53→21:55)
[2019-03-11 12:00] VITALS: BP 118/76
[2019-03-11 18:00] VITALS: BP 126/75
[2019-03-11 19:49] VITALS: BP 134/78
[2019-03-11] MEDS: ENOXAPARIN SODIUM 40 MG/0.4 ML DISP.SYRIN SQ SCH (20:44)
[2019-03-11] MEDS: ATORVASTATIN 10 MG TABLET GT SCH (21:56)
[2019-03-11] MEDS: INSULIN GLARGINE, 100 UNIT/ML CARTRIDGE SQ SCH (21:56)
[2019-03-12] VITALS: BP 130/72
[2019-03-12] MEDS: IPRATROPIUM NEB FS 0.5 MG/2.5 ML AMPUL.NEB NEB SCH ×4 (01:25→20:10)
[2019-03-12] MEDS: ALBUTEROL FS 2.5 MG/3 ML VIAL.NEB NEB SCH ×4 (01:25→20:10)
[2019-03-12] MEDS: BLOOD SUGAR DIAGNOSTIC 1 EACH STRIP IN SCH ×4 (06:07→23:34)
[2019-03-12] MEDS: DILTIAZEM HCL 30 MG TABLET GT SCH ×4 (06:07→23:34)
[2019-03-12] MEDS: INSULIN ASPART/LISPRO 100 UNIT/ML CARTRIDGE SQ PRN ×4 (06:08→23:34)
[2019-03-12 06:39] VITALS: BP 128/70
[2019-03-12 07:27] VITALS: BP 123/72
[2019-03-12] MEDS: HYDROGEN PEROXIDE 480 ML BOTTLE TP SCH ×2 (09:00→20:10)
[2019-03-12] MEDS: FERROUS SULFATE UDC 300 MG/5 ML UDC GT SCH (09:38)
[2019-03-12] MEDS: MULTIVIT W/MINERALS 1 TAB TABLET GT SCH (09:38)
[2019-03-12] MEDS: ASCORBIC ACID 500 MG TABLET GT SCH (09:38)
[2019-03-12] MEDS: OMEPRAZOLE 20 MG CAPSULE.DR GT SCH (09:38)
[2019-03-12] MEDS: ZINC SULFATE 220 MG CAPSULE GT SCH (09:38)
[2019-03-12] MEDS: ACIDOPHILUS/BULGARICUS 1 EACH TAB.CHEW GT SCH ×2 (09:38→17:08)
[2019-03-12] MEDS: ACETAMINOPHEN 650 MG/20 ML UDC- SA PATIENTS-PAIN ONLY GT SCH ×2 (09:38→21:45)
[2019-03-12] MEDS: LEVETIRACETAM SOL (5 ML) 100 MG/ML UDC GT SCH ×2 (09:38→21:45)
[2019-03-12] MEDS: DOCUSATE SODIUM LIQ 100 MG/10 ML UDC GT SCH ×2 (09:38→17:08)
[2019-03-12] MEDS: GLUCERNA 1.2 1,000 ML BOTTLE GT PRN (09:57)
[2019-03-12] MEDS: THERAHONEY GEL 1.5 OZ TUBE TP SCH ×2 (09:58→22:15)
[2019-03-12] MEDS: Z GUARD REMEDY 2 OZ OINT TP SCH ×2 (09:58→22:15)
[2019-03-12 12:22] VITALS: BP 118/72
[2019-03-12 18:45] VITALS: BP 126/68
[2019-03-12 20:16] VITALS: BP 133/69
[2019-03-12] MEDS: ATORVASTATIN 10 MG TABLET GT SCH (21:46)
[2019-03-12] MEDS: ENOXAPARIN SODIUM 40 MG/0.4 ML DISP.SYRIN SQ SCH (21:46)
[2019-03-12] MEDS: INSULIN GLARGINE, 100 UNIT/ML CARTRIDGE SQ SCH (21:47)
[2019-03-13] VITALS: BP 130/72
[2019-03-13] MEDS: IPRATROPIUM NEB FS 0.5 MG/2.5 ML AMPUL.NEB NEB SCH ×4 (00:57→19:37)
[2019-03-13] MEDS: ALBUTEROL FS 2.5 MG/3 ML VIAL.NEB NEB SCH ×4 (00:57→19:37)
[2019-03-13] MEDS: GLUCERNA 1.2 1,000 ML BOTTLE GT PRN (00:58)
[2019-03-13] MEDS: DILTIAZEM HCL 30 MG TABLET GT SCH ×4 (05:26→23:20)
[2019-03-13] MEDS: BLOOD SUGAR DIAGNOSTIC 1 EACH STRIP IN SCH ×4 (06:06→23:20)
[2019-03-13] MEDS: INSULIN ASPART/LISPRO 100 UNIT/ML CARTRIDGE SQ PRN ×4 (06:06→23:22)
[2019-03-13 06:54] VITALS: BP 134/80
[2019-03-13 07:37] VITALS: BP 121/61
[2019-03-13] MEDS: HYDROGEN PEROXIDE 480 ML BOTTLE TP SCH ×2 (07:53→20:26)
[2019-03-13] MEDS: MULTIVIT W/MINERALS 1 TAB TABLET GT SCH (09:00)
[2019-03-13] MEDS: ACIDOPHILUS/BULGARICUS 1 EACH TAB.CHEW GT SCH ×2 (09:30→16:51)
[2019-03-13] MEDS: DOCUSATE SODIUM LIQ 100 MG/10 ML UDC GT SCH ×2 (09:30→16:51)
[2019-03-13] MEDS: LEVETIRACETAM SOL (5 ML) 100 MG/ML UDC GT SCH ×2 (09:30→20:22)
[2019-03-13] MEDS: FERROUS SULFATE UDC 300 MG/5 ML UDC GT SCH (09:30)
[2019-03-13] MEDS: ZINC SULFATE 220 MG CAPSULE GT SCH (09:32)
[2019-03-13] MEDS: THERAHONEY GEL 1.5 OZ TUBE TP SCH ×2 (09:32→21:35)
[2019-03-13] MEDS: ASCORBIC ACID 500 MG TABLET GT SCH (09:32)
[2019-03-13] MEDS: Z GUARD REMEDY 2 OZ OINT TP SCH ×2 (09:32→21:35)
[2019-03-13] MEDS: OMEPRAZOLE 20 MG CAPSULE.DR GT SCH (09:32)
[2019-03-13] MEDS: ACETAMINOPHEN 650 MG/20 ML UDC- SA PATIENTS-PAIN ONLY GT SCH ×2 (09:32→20:24)
[2019-03-13 12:00] VITALS: BP 142/75
--- NOTE | 2019-03-13 12:51 | NUR ---
Seen and examined by MILLY Bender, NNO given.
[2019-03-13 18:42] VITALS: BP 115/66
[2019-03-13] MEDS: ENOXAPARIN SODIUM 40 MG/0.4 ML DISP.SYRIN SQ SCH (20:24)
[2019-03-13 20:31] VITALS: BP 135/73
[2019-03-13] MEDS: ATORVASTATIN 10 MG TABLET GT SCH (21:35)
[2019-03-13] MEDS: INSULIN GLARGINE, 100 UNIT/ML CARTRIDGE SQ SCH (21:36)
--- NOTE | 2019-03-13 21:59 | NUR ---
PT RECEIVE STABLE ON C/A @ 28% FIO2, TRACH PATENT AND SECURED, BACK UP VISH AND RAFFI BAG IS AT BEDSIDE, WILL CONTINUE TO MONITOR Addendum: 03/13/19 at 2159 by BEN FOOTE RT Amended: Links added.
[2019-03-14] MEDS: GLUCERNA 1.2 1,000 ML BOTTLE GT PRN ×2 (00:22→17:11)
[2019-03-14 00:29] VITALS: BP 130/60
[2019-03-14] MEDS: IPRATROPIUM NEB FS 0.5 MG/2.5 ML AMPUL.NEB NEB SCH ×4 (01:46→19:46)
[2019-03-14] MEDS: ALBUTEROL FS 2.5 MG/3 ML VIAL.NEB NEB SCH ×4 (01:46→19:46)
[2019-03-14] MEDS: DILTIAZEM HCL 30 MG TABLET GT SCH ×4 (05:14→23:21)
[2019-03-14] MEDS: BLOOD SUGAR DIAGNOSTIC 1 EACH STRIP IN SCH ×4 (05:59→23:21)
[2019-03-14] MEDS: INSULIN ASPART/LISPRO 100 UNIT/ML CARTRIDGE SQ PRN ×4 (06:00→23:22)
[2019-03-14 06:20] VITALS: BP 128/62
[2019-03-14 07:42] VITALS: BP 122/59
[2019-03-14] MEDS: HYDROGEN PEROXIDE 480 ML BOTTLE TP SCH ×2 (08:09→19:46)
[2019-03-14] MEDS: LEVETIRACETAM SOL (5 ML) 100 MG/ML UDC GT SCH ×2 (09:05→20:49)
[2019-03-14] MEDS: FERROUS SULFATE UDC 300 MG/5 ML UDC GT SCH (09:05)
[2019-03-14] MEDS: DOCUSATE SODIUM LIQ 100 MG/10 ML UDC GT SCH ×2 (09:05→17:00)
[2019-03-14] MEDS: OMEPRAZOLE 20 MG CAPSULE.DR GT SCH (09:08)
[2019-03-14] MEDS: ACIDOPHILUS/BULGARICUS 1 EACH TAB.CHEW GT SCH ×2 (09:08→17:00)
[2019-03-14] MEDS: ZINC SULFATE 220 MG CAPSULE GT SCH (09:22)
[2019-03-14] MEDS: ACETAMINOPHEN 650 MG/20 ML UDC- SA PATIENTS-PAIN ONLY GT SCH ×2 (09:22→20:49)
[2019-03-14] MEDS: MULTIVIT W/MINERALS 1 TAB TABLET GT SCH (09:22)
[2019-03-14] MEDS: ASCORBIC ACID 500 MG TABLET GT SCH (09:22)
[2019-03-14] MEDS: THERAHONEY GEL 1.5 OZ TUBE TP SCH ×2 (09:23→20:50)
[2019-03-14] MEDS: Z GUARD REMEDY 2 OZ OINT TP SCH ×2 (09:23→20:50)
[2019-03-14 12:00] VITALS: BP 118/60
[2019-03-14 18:28] VITALS: BP 131/62
--- NOTE | 2019-03-14 19:56 | NUR ---
RT NOTE: RECEIVED TRACH PT ON COOL AEROSOL. AMBU BAG @ BEDSIDE. Q6 BREATHING TX GIVEN PER MD ORDERS WITH NO ADVERSE REACTION NOTED. SX DONE PRN. TRACH PATENT AND SECURED. TRACH CARE DONE. NO RESP DISTRESS NOTED AT THIS TIME. WILL CONTINUE TO MONITOR PT Addendum: 03/15/19 at 0246 by BECKY DIALLO RT Amended: Links added.
[2019-03-14 20:22] VITALS: BP 104/58
[2019-03-14] MEDS: ENOXAPARIN SODIUM 40 MG/0.4 ML DISP.SYRIN SQ SCH (20:50)
[2019-03-14] MEDS: ATORVASTATIN 10 MG TABLET GT SCH (21:15)
[2019-03-14] MEDS: INSULIN GLARGINE, 100 UNIT/ML CARTRIDGE SQ SCH (21:15)
[2019-03-15 01:24] VITALS: BP 110/73
[2019-03-15] MEDS: IPRATROPIUM NEB FS 0.5 MG/2.5 ML AMPUL.NEB NEB SCH ×4 (01:38→20:17)
[2019-03-15] MEDS: ALBUTEROL FS 2.5 MG/3 ML VIAL.NEB NEB SCH ×4 (01:38→20:17)
[2019-03-15] MEDS: BLOOD SUGAR DIAGNOSTIC 1 EACH STRIP IN SCH ×4 (05:35→23:42)
[2019-03-15] MEDS: DILTIAZEM HCL 30 MG TABLET GT SCH ×4 (05:35→23:42)
[2019-03-15] MEDS: INSULIN ASPART/LISPRO 100 UNIT/ML CARTRIDGE SQ PRN ×4 (05:36→23:42)
[2019-03-15 06:10] VITALS: BP 124/54
[2019-03-15 07:41] VITALS: BP 121/51
[2019-03-15] MEDS: ASCORBIC ACID 500 MG TABLET GT SCH (09:01)
[2019-03-15] MEDS: ACIDOPHILUS/BULGARICUS 1 EACH TAB.CHEW GT SCH ×2 (09:01→17:02)
[2019-03-15] MEDS: DOCUSATE SODIUM LIQ 100 MG/10 ML UDC GT SCH ×2 (09:01→17:02)
[2019-03-15] MEDS: LEVETIRACETAM SOL (5 ML) 100 MG/ML UDC GT SCH ×2 (09:01→20:45)
[2019-03-15] MEDS: OMEPRAZOLE 20 MG CAPSULE.DR GT SCH (09:01)
[2019-03-15] MEDS: FERROUS SULFATE UDC 300 MG/5 ML UDC GT SCH (09:01)
[2019-03-15] MEDS: MULTIVIT W/MINERALS 1 TAB TABLET GT SCH (09:01)
[2019-03-15] MEDS: Z GUARD REMEDY 2 OZ OINT TP SCH ×2 (09:01→20:46)
[2019-03-15] MEDS: ZINC SULFATE 220 MG CAPSULE GT SCH (09:01)
[2019-03-15] MEDS: ACETAMINOPHEN 650 MG/20 ML UDC- SA PATIENTS-PAIN ONLY GT SCH ×2 (09:01→20:45)
[2019-03-15] MEDS: THERAHONEY GEL 1.5 OZ TUBE TP SCH ×2 (09:02→20:46)
[2019-03-15] MEDS: HYDROGEN PEROXIDE 480 ML BOTTLE TP SCH ×2 (09:28→20:46)
[2019-03-15 12:00] VITALS: BP 130/75
[2019-03-15] MEDS: GLUCERNA 1.2 1,000 ML BOTTLE GT PRN (12:27)
[2019-03-15 18:33] VITALS: BP 135/68
[2019-03-15] MEDS: ENOXAPARIN SODIUM 40 MG/0.4 ML DISP.SYRIN SQ SCH (20:45)
[2019-03-15] MEDS: ATORVASTATIN 10 MG TABLET GT SCH (21:06)
[2019-03-15] MEDS: INSULIN GLARGINE, 100 UNIT/ML CARTRIDGE SQ SCH (21:08)
[2019-03-15 22:04] VITALS: BP 121/90
[2019-03-16 00:22] VITALS: BP 108/54
[2019-03-16] MEDS: IPRATROPIUM NEB FS 0.5 MG/2.5 ML AMPUL.NEB NEB SCH ×4 (01:54→20:03)
[2019-03-16] MEDS: ALBUTEROL FS 2.5 MG/3 ML VIAL.NEB NEB SCH ×4 (01:54→20:03)
[2019-03-16] MEDS: GLUCERNA 1.2 1,000 ML BOTTLE GT PRN ×2 (05:43→23:28)
[2019-03-16] MEDS: BLOOD SUGAR DIAGNOSTIC 1 EACH STRIP IN SCH ×4 (05:43→23:28)
[2019-03-16] MEDS: DILTIAZEM HCL 30 MG TABLET GT SCH ×4 (05:43→23:28)
[2019-03-16] MEDS: INSULIN ASPART/LISPRO 100 UNIT/ML CARTRIDGE SQ PRN ×4 (05:44→23:28)
[2019-03-16 06:22] VITALS: BP 129/70
[2019-03-16 08:07] VITALS: BP 134/74
[2019-03-16] MEDS: HYDROGEN PEROXIDE 480 ML BOTTLE TP SCH ×2 (09:00→20:04)
[2019-03-16] MEDS: OMEPRAZOLE 20 MG CAPSULE.DR GT SCH (09:43)
[2019-03-16] MEDS: DOCUSATE SODIUM LIQ 100 MG/10 ML UDC GT SCH ×2 (09:43→16:38)
[2019-03-16] MEDS: FERROUS SULFATE UDC 300 MG/5 ML UDC GT SCH (09:43)
[2019-03-16] MEDS: MULTIVIT W/MINERALS 1 TAB TABLET GT SCH (09:43)
[2019-03-16] MEDS: ACIDOPHILUS/BULGARICUS 1 EACH TAB.CHEW GT SCH ×2 (09:43→16:38)
[2019-03-16] MEDS: LEVETIRACETAM SOL (5 ML) 100 MG/ML UDC GT SCH ×2 (09:43→20:59)
[2019-03-16] MEDS: ASCORBIC ACID 500 MG TABLET GT SCH (09:44)
[2019-03-16] MEDS: ACETAMINOPHEN 650 MG/20 ML UDC- SA PATIENTS-PAIN ONLY GT SCH ×2 (09:44→20:59)
[2019-03-16] MEDS: Z GUARD REMEDY 2 OZ OINT TP SCH ×2 (09:45→21:04)
[2019-03-16] MEDS: ZINC SULFATE 220 MG CAPSULE GT SCH (09:45)
[2019-03-16] MEDS: THERAHONEY GEL 1.5 OZ TUBE TP SCH ×2 (10:44→21:04)
[2019-03-16 12:00] VITALS: BP 110/60
[2019-03-16 18:11] VITALS: BP 112/66
[2019-03-16] MEDS: ENOXAPARIN SODIUM 40 MG/0.4 ML DISP.SYRIN SQ SCH (21:00)
[2019-03-16] MEDS: INSULIN GLARGINE, 100 UNIT/ML CARTRIDGE SQ SCH (21:04)
[2019-03-16] MEDS: ATORVASTATIN 10 MG TABLET GT SCH (21:04)
[2019-03-16 21:15] VITALS: BP 117/61
[2019-03-17 01:34] VITALS: BP 140/73
[2019-03-17] MEDS: IPRATROPIUM NEB FS 0.5 MG/2.5 ML AMPUL.NEB NEB SCH ×4 (01:43→19:30)
[2019-03-17] MEDS: ALBUTEROL FS 2.5 MG/3 ML VIAL.NEB NEB SCH ×4 (01:43→19:30)
[2019-03-17] MEDS: DILTIAZEM HCL 30 MG TABLET GT SCH ×3 (05:07→17:02)
[2019-03-17] MEDS: INSULIN ASPART/LISPRO 100 UNIT/ML CARTRIDGE SQ PRN ×2 (05:33→13:27)
[2019-03-17] MEDS: BLOOD SUGAR DIAGNOSTIC 1 EACH STRIP IN SCH ×3 (05:33→17:02)
--- NOTE | 2019-03-17 05:51 | NUR ---
RT NOTE PATIENT RECEIVED ON TRACH WITH COOL AEROSOL. TRACH IS PATENT AND SECURED. SPARE TRACH AND AMBU BAG IS AT BEDSIDE. PATIENT HAS EQUAL CHEST RISE WITH COARSE BILATERAL BREATH SOUNDS. SUCTION SMALL AMOUNT OF THICK GREEN SECRETIONS T/O THE NIGHT. Q6 TREATMENTS GIVEN WITH NO ADVERSE REACTIONS. NO SOB NOTED. Addendum: 03/17/19 at 0552 by MÓNICA GILLTETE RT Amended: Links added.
[2019-03-17 06:12] VITALS: BP 102/56
[2019-03-17 07:35] VITALS: BP 124/78
[2019-03-17] MEDS: FERROUS SULFATE UDC 300 MG/5 ML UDC GT SCH (09:00)
[2019-03-17] MEDS: MULTIVIT W/MINERALS 1 TAB TABLET GT SCH (09:00)
[2019-03-17] MEDS: HYDROGEN PEROXIDE 480 ML BOTTLE TP SCH ×2 (09:00→19:30)
[2019-03-17] MEDS: LEVETIRACETAM SOL (5 ML) 100 MG/ML UDC GT SCH ×2 (09:00→20:12)
[2019-03-17] MEDS: DOCUSATE SODIUM LIQ 100 MG/10 ML UDC GT SCH ×2 (09:00→16:38)
[2019-03-17] MEDS: ASCORBIC ACID 500 MG TABLET GT SCH (09:00)
[2019-03-17] MEDS: OMEPRAZOLE 20 MG CAPSULE.DR GT SCH (09:00)
[2019-03-17] MEDS: ZINC SULFATE 220 MG CAPSULE GT SCH (09:00)
[2019-03-17] MEDS: ACETAMINOPHEN 650 MG/20 ML UDC- SA PATIENTS-PAIN ONLY GT SCH ×2 (09:00→20:12)
[2019-03-17] MEDS: THERAHONEY GEL 1.5 OZ TUBE TP SCH ×2 (09:00→20:13)
[2019-03-17] MEDS: Z GUARD REMEDY 2 OZ OINT TP SCH ×2 (09:00→20:13)
[2019-03-17] MEDS: ACIDOPHILUS/BULGARICUS 1 EACH TAB.CHEW GT SCH ×2 (09:00→16:38)
[2019-03-17 12:00] VITALS: BP 134/77
[2019-03-17 18:00] VITALS: BP 91/53
[2019-03-17] MEDS: GLUCERNA 1.2 1,000 ML BOTTLE GT PRN (18:25)
--- NOTE | 2019-03-17 19:40 | NUR ---
RT NOTE: RECEIVED TRACH PT ON COOL AEROSOL. AMBU BAG @ BEDSIDE. Q6 BREATHING TX GIVEN PER MD ORDERS WITH NO ADVERSE REACTION NOTED. SX DONE PRN. TRACH PATENT AND SECURED. TRACH CARE DONE. NO RESP DISTRESS NOTED AT THIS TIME. WILL CONTINUE TO MONITOR PT Addendum: 03/18/19 at 0254 by BECKY DIALLO RT Amended: Links added.
[2019-03-17 19:50] VITALS: BP 111/63
[2019-03-17] MEDS: ENOXAPARIN SODIUM 40 MG/0.4 ML DISP.SYRIN SQ SCH (20:13)
[2019-03-17] MEDS: ATORVASTATIN 10 MG TABLET GT SCH (21:49)
[2019-03-17] MEDS: INSULIN GLARGINE, 100 UNIT/ML CARTRIDGE SQ SCH (21:50)
[2019-03-18 00:45] VITALS: BP 132/77
[2019-03-18] MEDS: DILTIAZEM HCL 30 MG TABLET GT SCH ×5 (00:49→23:34)
[2019-03-18] MEDS: BLOOD SUGAR DIAGNOSTIC 1 EACH STRIP IN SCH ×5 (00:50→23:34)
[2019-03-18] MEDS: INSULIN ASPART/LISPRO 100 UNIT/ML CARTRIDGE SQ PRN ×5 (00:51→23:35)
[2019-03-18] MEDS: IPRATROPIUM NEB FS 0.5 MG/2.5 ML AMPUL.NEB NEB SCH ×4 (01:45→19:40)
[2019-03-18] MEDS: ALBUTEROL FS 2.5 MG/3 ML VIAL.NEB NEB SCH ×4 (01:45→19:40)
[2019-03-18 06:18] VITALS: BP 130/71
[2019-03-18 07:28] VITALS: BP 130/64
[2019-03-18] MEDS: OMEPRAZOLE 20 MG CAPSULE.DR GT SCH (09:00)
[2019-03-18] MEDS: HYDROGEN PEROXIDE 480 ML BOTTLE TP SCH ×2 (09:00→19:40)
[2019-03-18] MEDS: ASCORBIC ACID 500 MG TABLET GT SCH (09:00)
[2019-03-18] MEDS: LEVETIRACETAM SOL (5 ML) 100 MG/ML UDC GT SCH ×2 (09:00→20:48)
[2019-03-18] MEDS: DOCUSATE SODIUM LIQ 100 MG/10 ML UDC GT SCH ×2 (09:00→17:11)
[2019-03-18] MEDS: ACIDOPHILUS/BULGARICUS 1 EACH TAB.CHEW GT SCH ×2 (09:00→17:11)
[2019-03-18] MEDS: ZINC SULFATE 220 MG CAPSULE GT SCH (09:00)
[2019-03-18] MEDS: FERROUS SULFATE UDC 300 MG/5 ML UDC GT SCH (09:00)
[2019-03-18] MEDS: MULTIVIT W/MINERALS 1 TAB TABLET GT SCH (09:00)
--- NOTE | 2019-03-18 09:23 | NUR ---
Pt's G-tube came out when pt coughed, balloon already burst. Unable to reinsert G-tube. Placed a Solitario catheter to keep stoma open. Informed Dr Juarez. Addendum: 03/18/19 at 1005 by JASKARAN FITZGERALD RN Dr Juarez said another GI is supervisor education. Based on the schedule, he is supervisor education. Informed MILLY Eason.
--- NOTE | 2019-03-18 09:44 | NUR ---
Called Dr Martin's office to inform him that G-tube came out. Left message with Amelia.
--- NOTE | 2019-03-18 10:03 | NUR ---
Dr Pineda called. Notified him that pt's GT came out, unable to replace it, Solitario catheter was placed to keep stoma open. He said to call Dr Dolan to replace GT. Left message for Dr Dolan.
--- NOTE | 2019-03-18 10:07 | NUR ---
Dr Dolan said he is off service today and to call Dr Juarez.
--- NOTE | 2019-03-18 10:18 | NUR ---
Called LENS SHAPER GRINDER Yumi Reed at [phone]. Office staff said she is not on the schedule. Asked office staff to check who is bank consultant. She said it does not show that anybody is bank consultant for GI today.
--- NOTE | 2019-03-18 10:32 | NUR ---
Dr Juarez said to call Dr Ojeda. Also spoke with nursing delivery driver/supervisor who said to call Dr Ojeda. Called his office and spoke Lacey. She said Dr Ojeda is doing procedures right now. Left message with her.
--- NOTE | 2019-03-18 10:49 | NUR ---
PT RECEIVE STABLE ON 28%FIO2 C/A VIA T-BAR, TRACH PATENT AND SECURED, ABELARDO WAHL AND RAFFI BAG IS AT BEDSIDE , WILL CONTINUE TO MONITOR Addendum: 03/18/19 at 1049 by BEN FOOTE RT Amended: Links added.
--- NOTE | 2019-03-18 11:21 | NUR ---
Spoke with Dr Ojeda. He is unable to see pt today. He said to use the Solitario catheter as G-tube. Charge nurse attempted to replace Solitario catheter with G-tube Bard Fr 20 x 20 mL. Charge nurse was able to replace it successfully, without any resistance.
--- NOTE | 2019-03-18 11:55 | NUR ---
Informed Dr Pineda that GI is unable to come today and G-tube was placed successfully by charge nurse. Dr Pineda ordered to do KUB.
[2019-03-18 12:00] VITALS: BP 126/74
[2019-03-18] MEDS ORDERED: DIATR MEGLU/DIATRIZOATE SODIUM 30 ML BOTTLE (GASTROGRAPHIN) ONE (12:02)
--- NOTE | 2019-03-18 13:17 | NUR ---
DESI showed appropriate placement of G-tube. Resumed feeding. Addendum: 03/18/19 at 1318 by JASKARAN FITZGERALD RN Librado Mendoza.
--- NOTE | 2019-03-18 13:36 | NUR ---
ORACIO emailed the patient's daughter, Kelly Wong per her request to invite her to the Plan of Care Conference scheduled March 22, 2019 from 12:30pm-1:30pm in the activities room.
[2019-03-18] MEDS: ACETAMINOPHEN 650 MG/20 ML UDC- SA PATIENTS-PAIN ONLY GT SCH ×2 (13:45→20:49)
[2019-03-18] MEDS: GLUCERNA 1.2 1,000 ML BOTTLE GT PRN (14:23)
[2019-03-18] MEDS: Z GUARD REMEDY 2 OZ OINT TP SCH ×2 (14:45→21:45)
[2019-03-18] MEDS: THERAHONEY GEL 1.5 OZ TUBE TP SCH ×2 (14:45→21:45)
[2019-03-18 18:00] VITALS: BP 129/68
[2019-03-18 20:17] VITALS: BP 124/57
[2019-03-18] MEDS: ENOXAPARIN SODIUM 40 MG/0.4 ML DISP.SYRIN SQ SCH (20:49)
[2019-03-18] MEDS: ATORVASTATIN 10 MG TABLET GT SCH (21:45)
[2019-03-18] MEDS: INSULIN GLARGINE, 100 UNIT/ML CARTRIDGE SQ SCH (21:46)
[2019-03-19] VITALS: BP 120/60
[2019-03-19] MEDS: IPRATROPIUM NEB FS 0.5 MG/2.5 ML AMPUL.NEB NEB SCH ×4 (01:52→20:02)
[2019-03-19] MEDS: ALBUTEROL FS 2.5 MG/3 ML VIAL.NEB NEB SCH ×4 (01:52→20:02)
[2019-03-19] MEDS: INSULIN ASPART/LISPRO 100 UNIT/ML CARTRIDGE SQ PRN ×3 (05:40→17:58)
[2019-03-19] MEDS: BLOOD SUGAR DIAGNOSTIC 1 EACH STRIP IN SCH ×3 (05:40→17:58)
[2019-03-19] MEDS: DILTIAZEM HCL 30 MG TABLET GT SCH ×3 (05:40→17:58)
[2019-03-19 06:25] VITALS: BP 126/62
[2019-03-19 07:36] VITALS: BP 117/60
[2019-03-19] MEDS: DOCUSATE SODIUM LIQ 100 MG/10 ML UDC GT SCH ×2 (08:47→16:45)
[2019-03-19] MEDS: OMEPRAZOLE 20 MG CAPSULE.DR GT SCH (08:48)
[2019-03-19] MEDS: ACETAMINOPHEN 650 MG/20 ML UDC- SA PATIENTS-PAIN ONLY GT SCH ×2 (08:48→20:38)
[2019-03-19] MEDS: ZINC SULFATE 220 MG CAPSULE GT SCH (08:48)
[2019-03-19] MEDS: MULTIVIT W/MINERALS 1 TAB TABLET GT SCH (08:48)
[2019-03-19] MEDS: ACIDOPHILUS/BULGARICUS 1 EACH TAB.CHEW GT SCH ×2 (08:48→16:45)
[2019-03-19] MEDS: ASCORBIC ACID 500 MG TABLET GT SCH (08:48)
[2019-03-19] MEDS: FERROUS SULFATE UDC 300 MG/5 ML UDC GT SCH (08:48)
[2019-03-19] MEDS: LEVETIRACETAM SOL (5 ML) 100 MG/ML UDC GT SCH ×2 (08:48→20:37)
[2019-03-19] MEDS: Z GUARD REMEDY 2 OZ OINT TP SCH ×2 (09:00→20:39)
--- NOTE | 2019-03-19 09:17 | NUR ---
RT PT RECEIVED ON COOL AEROSOL AT 5 LPM. PT IS TRACHED, PORTEX 9. AMBU BAG AT HEAD OF BED. SPARE TRACH AT BEDSIDE. MINIMAL, THICK SECRETIONS SUCTIONED. PT IS IN NO APPARENT RESPIRATORY DISTRESS. WILL CONTINUE TO MONITOR. Addendum: 03/19/19 at 0918 by CALIN LEONARD RT Amended: Links added.
[2019-03-19] MEDS: THERAHONEY GEL 1.5 OZ TUBE TP SCH ×2 (09:20→20:39)
[2019-03-19 12:00] VITALS: BP 139/81
[2019-03-19] MEDS: GLUCERNA 1.2 1,000 ML BOTTLE GT PRN (12:26)
[2019-03-19 18:42] VITALS: BP 143/70
[2019-03-19] MEDS: ENOXAPARIN SODIUM 40 MG/0.4 ML DISP.SYRIN SQ SCH (20:38)
[2019-03-19 20:41] VITALS: BP 127/69
[2019-03-19] MEDS: HYDROGEN PEROXIDE 480 ML BOTTLE TP SCH (21:00)
[2019-03-19] MEDS: ATORVASTATIN 10 MG TABLET GT SCH (21:37)
[2019-03-19] MEDS: INSULIN GLARGINE, 100 UNIT/ML CARTRIDGE SQ SCH (21:38)
[2019-03-20] MEDS: BLOOD SUGAR DIAGNOSTIC 1 EACH STRIP IN SCH ×5 (00:40→23:38)
[2019-03-20] MEDS: DILTIAZEM HCL 30 MG TABLET GT SCH ×5 (00:40→23:38)
[2019-03-20] MEDS: INSULIN ASPART/LISPRO 100 UNIT/ML CARTRIDGE SQ PRN ×5 (00:42→23:39)
[2019-03-20 01:01] VITALS: BP 144/81
[2019-03-20] MEDS: IPRATROPIUM NEB FS 0.5 MG/2.5 ML AMPUL.NEB NEB SCH ×4 (01:22→19:55)
[2019-03-20] MEDS: ALBUTEROL FS 2.5 MG/3 ML VIAL.NEB NEB SCH ×4 (01:30→19:55)
[2019-03-20] MEDS: GLUCERNA 1.2 1,000 ML BOTTLE GT PRN (04:03)
[2019-03-20 06:29] VITALS: BP 115/66
[2019-03-20 07:36] VITALS: BP 142/64
[2019-03-20] MEDS: HYDROGEN PEROXIDE 480 ML BOTTLE TP SCH ×2 (08:22→20:20)
[2019-03-20] MEDS: LEVETIRACETAM SOL (5 ML) 100 MG/ML UDC GT SCH ×2 (09:00→20:30)
[2019-03-20] MEDS: ACETAMINOPHEN 650 MG/20 ML UDC- SA PATIENTS-PAIN ONLY GT SCH ×2 (09:00→20:30)
[2019-03-20] MEDS: ASCORBIC ACID 500 MG TABLET GT SCH (09:00)
[2019-03-20] MEDS: Z GUARD REMEDY 2 OZ OINT TP SCH ×2 (09:00→21:22)
[2019-03-20] MEDS: ZINC SULFATE 220 MG CAPSULE GT SCH (09:00)
[2019-03-20] MEDS: OMEPRAZOLE 20 MG CAPSULE.DR GT SCH (09:00)
[2019-03-20] MEDS: MULTIVIT W/MINERALS 1 TAB TABLET GT SCH (09:00)
[2019-03-20] MEDS: FERROUS SULFATE UDC 300 MG/5 ML UDC GT SCH (09:00)
[2019-03-20] MEDS: ACIDOPHILUS/BULGARICUS 1 EACH TAB.CHEW GT SCH ×2 (09:00→16:21)
[2019-03-20] MEDS: THERAHONEY GEL 1.5 OZ TUBE TP SCH ×2 (09:00→21:22)
[2019-03-20] MEDS: DOCUSATE SODIUM LIQ 100 MG/10 ML UDC GT SCH ×2 (09:00→16:21)
[2019-03-20 12:00] VITALS: BP 138/71
--- NOTE | 2019-03-20 12:28 | NUR ---
Family was not able to attend March Family Support Group today held from 11 am-12 noon. Family will be invited and encouraged to attend next month's Family Support Group.
--- NOTE | 2019-03-20 17:11 | NUR ---
RT NOTE RECEIVED PATIENT ON TRACH WITH COOL AEROSOL. TRACH IS PATENT AND SECURED. SPARE TRACH AND AMBU BAG IS AT BEDSIDE. PATIENT HAS EQUAL CHEST RISE WITH COARSE BILATERAL BREATH SOUNDS. SUCTION SMALL AMOUNT OF THICK GREEN/WHITE SECRETIONS TROUGH OUT THE DAY. TRACH CARE WAS PERFORMED. BREATHING TREATMENTS GIVEN WITH NO ADVERSE REACTION. NO SOB NOTED. Addendum: 03/20/19 at 1712 by MÓNICA GILLETTE RT Amended: Links added.
[2019-03-20 18:13] VITALS: BP 121/62
[2019-03-20] MEDS: ENOXAPARIN SODIUM 40 MG/0.4 ML DISP.SYRIN SQ SCH (20:31)
--- NOTE | 2019-03-20 20:43 | NUR ---
PT RCVD TRACH'D ON COOL AEROSOL WITH CHARTED SETTINGS. PT [place] TX WELL. SX DONE. PT TRACH IS PATENT AND SECURE. AMBU BAG AT BEDSIDE. NO SOB NOTED. Addendum: 03/20/19 at 2043 by JOEY PAPPAS RT Amended: Links added.
[2019-03-20] MEDS: ATORVASTATIN 10 MG TABLET GT SCH (21:22)
[2019-03-20] MEDS: INSULIN GLARGINE, 100 UNIT/ML CARTRIDGE SQ SCH (22:05)
[2019-03-21] VITALS: BP 124/68
[2019-03-21] MEDS: ALBUTEROL FS 2.5 MG/3 ML VIAL.NEB NEB SCH ×4 (00:46→20:25)
[2019-03-21] MEDS: IPRATROPIUM NEB FS 0.5 MG/2.5 ML AMPUL.NEB NEB SCH ×4 (00:46→20:25)
[2019-03-21] MEDS: DILTIAZEM HCL 30 MG TABLET GT SCH ×3 (05:55→17:33)
[2019-03-21] MEDS: BLOOD SUGAR DIAGNOSTIC 1 EACH STRIP IN SCH ×3 (05:55→17:33)
[2019-03-21] MEDS: INSULIN ASPART/LISPRO 100 UNIT/ML CARTRIDGE SQ PRN ×3 (05:56→17:35)
[2019-03-21 06:39] VITALS: BP 122/70
[2019-03-21 07:26] LABS: BASOPHILS # (AUTO) 0.1 /CMM (0.0-0.2); BASOPHILS % (AUTO) 1.1 % (0.0-2.0); EOSINOPHILS % (AUTO) 2.7 % (0.0-6.0); HEMATOCRIT 34 % (33-45); HEMOGLOBIN 10.7 g/dL (11.5-14.8); LYMPHOCYTES # (AUTO) 3.1 /CMM (0.8-4.8); LYMPHOCYTES % (AUTO) 34.8 % (20.0-44.0); MEAN CORPUSCULAR HGB CONC 31 g/dl (31.0-36.0); MEAN CORPUSCULAR VOLUME 87 fL (82-100); MONOCYTES # (AUTO) 0.8 /CMM (0.1-1.30); MONOCYTES % (AUTO) 8.6 % (2.0-12.0); NEUTROPHILS # (AUTO) 4.6 /CMM (1.8-8.9); NEUTROPHILS % (AUTO) 52.8 % (43.0-81.0); PLATELET COUNT (AUTO) 391 /CMM (150-450); RED BLOOD CELL COUNT(AUTO) 3.91 MIL/uL (4.0-5.2); WHITE BLOOD COUNT (AUTO) 8.8 K/uL (4.3-11.0)
[2019-03-21 07:28] VITALS: BP 135/70
[2019-03-21 07:45] LABS: CALCIUM, SERUM 8.9 mg/dL (8.5-10.1); CREATININE 1.2 mg/dL (0.6-1.3); MAGNESIUM 2.7 mg/dL (1.8-2.4); PHOSPHORUS 3.5 mg/dL (2.5-4.9)
[2019-03-21] MEDS: HYDROGEN PEROXIDE 480 ML BOTTLE TP SCH ×2 (08:07→20:35)
[2019-03-21] MEDS: MULTIVIT W/MINERALS 1 TAB TABLET GT SCH (09:00)
[2019-03-21] MEDS: OMEPRAZOLE 20 MG CAPSULE.DR GT SCH (09:00)
[2019-03-21] MEDS: ACIDOPHILUS/BULGARICUS 1 EACH TAB.CHEW GT SCH ×2 (09:00→16:19)
[2019-03-21] MEDS: DOCUSATE SODIUM LIQ 100 MG/10 ML UDC GT SCH ×2 (09:00→16:19)
[2019-03-21] MEDS: FERROUS SULFATE UDC 300 MG/5 ML UDC GT SCH (09:00)
[2019-03-21] MEDS: ASCORBIC ACID 500 MG TABLET GT SCH (09:00)
[2019-03-21] MEDS: Z GUARD REMEDY 2 OZ OINT TP SCH ×2 (09:00→21:43)
[2019-03-21] MEDS: ZINC SULFATE 220 MG CAPSULE GT SCH (09:00)
[2019-03-21] MEDS: THERAHONEY GEL 1.5 OZ TUBE TP SCH ×2 (09:00→21:43)
[2019-03-21] MEDS: ACETAMINOPHEN 650 MG/20 ML UDC- SA PATIENTS-PAIN ONLY GT SCH ×2 (09:00→21:43)
[2019-03-21] MEDS: LEVETIRACETAM SOL (5 ML) 100 MG/ML UDC GT SCH ×2 (09:00→21:42)
[2019-03-21 12:00] VITALS: BP 133/68
[2019-03-21] MEDS: GLUCERNA 1.2 1,000 ML BOTTLE GT PRN (13:01)
--- NOTE | 2019-03-21 17:24 | NUR ---
RT NOTE RECEIVED PATIENT ON TRACH WITH COOL AEROSOL. TRACH IS PATENT AND SECURED. SPARE TRACH AND AMBU BAG IS AT BEDSIDE. PATIENT HAS EQUAL CHEST RISE WITH COARSE BILATERAL BREATH SOUNDS. SUCTION SMALL AMOUNT OF THICK GREEN/WHITE SECRETIONS TROUGH OUT THE DAY. TRACH CARE WAS PERFORMED. BREATHING TREATMENTS GIVEN WITH NO ADVERSE REACTION. NO SOB NOTED. Addendum: 03/21/19 at 1724 by MÓNICA GILLETTE RT Amended: Links added.
[2019-03-21 18:08] VITALS: BP 120/64
[2019-03-21 20:11] VITALS: BP 131/77
--- NOTE | 2019-03-21 21:22 | NUR ---
PT RECEIVE STABLE ON C/A @ 28% FIO2, TRACH PATENT AND SECURED, BACK UP VISH AND RAFFI BAG IS AT BEDSIDE, WILL CONTINUE TO MONITOR Addendum: 03/21/19 at 2122 by BEN FOOTE RT Amended: Links added.
[2019-03-21] MEDS: ENOXAPARIN SODIUM 40 MG/0.4 ML DISP.SYRIN SQ SCH (21:43)
[2019-03-21] MEDS: ATORVASTATIN 10 MG TABLET GT SCH (21:43)
[2019-03-21] MEDS: INSULIN GLARGINE, 100 UNIT/ML CARTRIDGE SQ SCH (21:44)
[2019-03-22 00:20] VITALS: BP 158/67
[2019-03-22] MEDS: BLOOD SUGAR DIAGNOSTIC 1 EACH STRIP IN SCH ×4 (00:25→17:58)
[2019-03-22] MEDS: DILTIAZEM HCL 30 MG TABLET GT SCH ×4 (00:25→17:58)
[2019-03-22] MEDS: INSULIN ASPART/LISPRO 100 UNIT/ML CARTRIDGE SQ PRN ×4 (00:26→17:58)
[2019-03-22] MEDS: ALBUTEROL FS 2.5 MG/3 ML VIAL.NEB NEB SCH ×4 (01:36→19:52)
[2019-03-22] MEDS: IPRATROPIUM NEB FS 0.5 MG/2.5 ML AMPUL.NEB NEB SCH ×4 (01:36→19:52)
[2019-03-22] MEDS: GLUCERNA 1.2 1,000 ML BOTTLE GT PRN (06:03)
[2019-03-22 07:39] VITALS: BP 149/68
[2019-03-22 07:49] VITALS: BP 114/50
--- NOTE | 2019-03-22 08:10 | NUR ---
RT PT RECEIVED ON COOL AEROSOL. TRACHED WITH PORTEX 9. AMBU BAG AT HEAD OF BED. SPARE TRACH AT HEAD OF BED. LITTLE TO NO SECRETIONS SUCTIONED. NO RESPIRATORY DISTRESS NOTED. WILL CONTINUE TO MONITOR. Addendum: 03/22/19 at 1206 by CALIN LEONARD RT Amended: Links added.
[2019-03-22] MEDS: HYDROGEN PEROXIDE 480 ML BOTTLE TP SCH ×2 (09:00→21:00)
[2019-03-22] MEDS: Z GUARD REMEDY 2 OZ OINT TP SCH ×2 (09:00→20:25)
[2019-03-22] MEDS: THERAHONEY GEL 1.5 OZ TUBE TP SCH ×2 (09:00→20:25)
[2019-03-22] MEDS: FERROUS SULFATE UDC 300 MG/5 ML UDC GT SCH (09:15)
[2019-03-22] MEDS: ACETAMINOPHEN 650 MG/20 ML UDC- SA PATIENTS-PAIN ONLY GT SCH ×2 (09:15→20:27)
[2019-03-22] MEDS: ZINC SULFATE 220 MG CAPSULE GT SCH (09:15)
[2019-03-22] MEDS: ACIDOPHILUS/BULGARICUS 1 EACH TAB.CHEW GT SCH ×2 (09:15→16:31)
[2019-03-22] MEDS: LEVETIRACETAM SOL (5 ML) 100 MG/ML UDC GT SCH ×2 (09:15→20:27)
[2019-03-22] MEDS: OMEPRAZOLE 20 MG CAPSULE.DR GT SCH (09:15)
[2019-03-22] MEDS: MULTIVIT W/MINERALS 1 TAB TABLET GT SCH (09:15)
[2019-03-22] MEDS: ASCORBIC ACID 500 MG TABLET GT SCH (09:15)
[2019-03-22] MEDS: DOCUSATE SODIUM LIQ 100 MG/10 ML UDC GT SCH ×2 (09:15→16:31)
--- NOTE | 2019-03-22 11:03 | NUR ---
Dr. Pineda seen and reviewed recent CBC and BMP result, with new order for hydration, D5W at 100cc/hr with repeat labs in AM. Resident's daughter Kelly juliet.
[2019-03-22 12:00] VITALS: BP 146/88
--- NOTE | 2019-03-22 14:35 | NUR ---
Unable to start IVF, resident is a hard stick, ICU nurse also attempted to insert an IV access but unsuccessful. Obtained an order from Dr. Capone for midline insertion. Nursing engineering team supervisor informed to notify PICC line nurse, he will be in after 4 PM.
--- NOTE | 2019-03-22 14:47 | NUR ---
Plan of Care Conference took place today. The patients responsible republican/ Kelly Wong [phone] was not able to attend. Charge nurse discussed CBC, BMP, and order for D5W at 100 cc/hr. Dr. Capone and Interdisciplinary team discussed the plan of care in detail. Current orders as well as treatments and medications were reviewed. See other disciplines IDT notes for further details.
[2019-03-22] MEDS: IV D5W 1,000 ML IV PRN (17:42)
[2019-03-22 18:13] VITALS: BP 131/79
[2019-03-22] MEDS: ENOXAPARIN SODIUM 40 MG/0.4 ML DISP.SYRIN SQ SCH (20:25)
[2019-03-22 20:40] VITALS: BP 116/69
[2019-03-22] MEDS: ATORVASTATIN 10 MG TABLET GT SCH (21:25)
[2019-03-22] MEDS: INSULIN GLARGINE, 100 UNIT/ML CARTRIDGE SQ SCH (21:29)
[2019-03-23 00:24] VITALS: BP 114/71
[2019-03-23] MEDS: IPRATROPIUM NEB FS 0.5 MG/2.5 ML AMPUL.NEB NEB SCH ×4 (00:35→19:40)
[2019-03-23] MEDS: ALBUTEROL FS 2.5 MG/3 ML VIAL.NEB NEB SCH ×4 (00:35→19:40)
[2019-03-23] MEDS: DILTIAZEM HCL 30 MG TABLET GT SCH ×5 (00:38→23:42)
[2019-03-23] MEDS: BLOOD SUGAR DIAGNOSTIC 1 EACH STRIP IN SCH ×5 (00:39→23:43)
[2019-03-23] MEDS: INSULIN ASPART/LISPRO 100 UNIT/ML CARTRIDGE SQ PRN ×5 (00:40→23:46)
[2019-03-23] MEDS: GLUCERNA 1.2 1,000 ML BOTTLE GT PRN ×2 (03:32→21:00)
[2019-03-23] MEDS: IV D5W 1,000 ML IV PRN (05:00)
[2019-03-23 06:29] VITALS: BP 121/75
[2019-03-23 06:37] LABS: BASOPHILS # (AUTO) 0.1 /CMM (0.0-0.2); EOSINOPHILS % (AUTO) 3.9 % (0.0-6.0); HEMATOCRIT 31 % (33-45); HEMOGLOBIN 9.7 g/dL (11.5-14.8); LYMPHOCYTES # (AUTO) 2.6 /CMM (0.8-4.8); LYMPHOCYTES % (AUTO) 30.9 % (20.0-44.0); MEAN CORPUSCULAR HGB CONC 32 g/dl (31.0-36.0); MEAN CORPUSCULAR VOLUME 86 fL (82-100); MONOCYTES # (AUTO) 0.6 /CMM (0.1-1.30); MONOCYTES % (AUTO) 7.3 % (2.0-12.0); NEUTROPHILS # (AUTO) 4.8 /CMM (1.8-8.9); NEUTROPHILS % (AUTO) 56.9 % (43.0-81.0); PLATELET COUNT (AUTO) 381 /CMM (150-450); RED BLOOD CELL COUNT(AUTO) 3.55 MIL/uL (4.0-5.2); WHITE BLOOD COUNT (AUTO) 8.4 K/uL (4.3-11.0)
[2019-03-23 07:02] LABS: CALCIUM, SERUM 8.7 mg/dL (8.5-10.1); CREATININE 1.1 mg/dL (0.6-1.3); MAGNESIUM 2.3 mg/dL (1.8-2.4); PHOSPHORUS 3.1 mg/dL (2.5-4.9); POTASSIUM 4.8 mmol/L (3.5-5.1)
[2019-03-23 07:58] VITALS: BP 126/98
[2019-03-23] MEDS: HYDROGEN PEROXIDE 480 ML BOTTLE TP SCH ×2 (08:23→21:09)
[2019-03-23] MEDS: DOCUSATE SODIUM LIQ 100 MG/10 ML UDC GT SCH ×2 (08:24→16:23)
[2019-03-23] MEDS: FERROUS SULFATE UDC 300 MG/5 ML UDC GT SCH (08:25)
[2019-03-23] MEDS: OMEPRAZOLE 20 MG CAPSULE.DR GT SCH (08:27)
[2019-03-23] MEDS: ACIDOPHILUS/BULGARICUS 1 EACH TAB.CHEW GT SCH ×2 (08:27→16:23)
[2019-03-23] MEDS: LEVETIRACETAM SOL (5 ML) 100 MG/ML UDC GT SCH ×2 (08:27→21:36)
[2019-03-23] MEDS: MULTIVIT W/MINERALS 1 TAB TABLET GT SCH (08:27)
[2019-03-23] MEDS: ASCORBIC ACID 500 MG TABLET GT SCH (08:28)
[2019-03-23] MEDS: ZINC SULFATE 220 MG CAPSULE GT SCH (08:28)
[2019-03-23] MEDS: ACETAMINOPHEN 650 MG/20 ML UDC- SA PATIENTS-PAIN ONLY GT SCH ×2 (08:28→21:37)
[2019-03-23] MEDS: THERAHONEY GEL 1.5 OZ TUBE TP SCH (09:28)
[2019-03-23] MEDS: Z GUARD REMEDY 2 OZ OINT TP SCH ×2 (09:28→21:37)
[2019-03-23 12:00] VITALS: BP 147/83
[2019-03-23 18:44] VITALS: BP 137/80
[2019-03-23] MEDS: ATORVASTATIN 10 MG TABLET GT SCH (21:37)
[2019-03-23] MEDS: ENOXAPARIN SODIUM 40 MG/0.4 ML DISP.SYRIN SQ SCH (21:37)
[2019-03-23] MEDS: INSULIN GLARGINE, 100 UNIT/ML CARTRIDGE SQ SCH (21:38)
[2019-03-24] VITALS (7 sets, daily range): BP systolic 93–176; BP diastolic 59–99
[2019-03-24] MEDS: IPRATROPIUM NEB FS 0.5 MG/2.5 ML AMPUL.NEB NEB SCH ×4 (02:03→19:58)
[2019-03-24] MEDS: ALBUTEROL FS 2.5 MG/3 ML VIAL.NEB NEB SCH ×4 (02:03→19:58)
[2019-03-24] MEDS: DILTIAZEM HCL 30 MG TABLET GT SCH ×3 (05:27→18:00)
[2019-03-24] MEDS: BLOOD SUGAR DIAGNOSTIC 1 EACH STRIP IN SCH ×3 (06:12→18:17)
[2019-03-24] MEDS: INSULIN ASPART/LISPRO 100 UNIT/ML CARTRIDGE SQ PRN ×2 (06:14→12:53)
[2019-03-24] MEDS: FERROUS SULFATE UDC 300 MG/5 ML UDC GT SCH (09:00)
[2019-03-24] MEDS: ACETAMINOPHEN 650 MG/20 ML UDC- SA PATIENTS-PAIN ONLY GT SCH ×2 (09:00→21:43)
[2019-03-24] MEDS: ACIDOPHILUS/BULGARICUS 1 EACH TAB.CHEW GT SCH ×2 (09:00→17:00)
[2019-03-24] MEDS: LEVETIRACETAM SOL (5 ML) 100 MG/ML UDC GT SCH ×2 (09:00→21:42)
[2019-03-24] MEDS: ASCORBIC ACID 500 MG TABLET GT SCH (09:00)
[2019-03-24] MEDS: MULTIVIT W/MINERALS 1 TAB TABLET GT SCH (09:00)
[2019-03-24] MEDS: OMEPRAZOLE 20 MG CAPSULE.DR GT SCH (09:00)
[2019-03-24] MEDS: HYDROGEN PEROXIDE 480 ML BOTTLE TP SCH ×2 (09:00→19:58)
[2019-03-24] MEDS: Z GUARD REMEDY 2 OZ OINT TP SCH ×2 (09:00→21:45)
[2019-03-24] MEDS: DOCUSATE SODIUM LIQ 100 MG/10 ML UDC GT SCH ×2 (09:00→17:00)
[2019-03-24] MEDS: ZINC SULFATE 220 MG CAPSULE GT SCH (09:00)
[2019-03-24] MEDS: GLUCERNA 1.2 1,000 ML BOTTLE GT PRN (14:39)
--- NOTE | 2019-03-24 21:28 | NUR ---
RT NOTE RECEIVED PATIENT ON TRACH WITH COOL AEROSOL. TRACH IS PATENT AND SECURED. SPARE TRACH AND BVM IS AT BEDSIDE. PATIENT IS STABLE. PATIENT HAD COARSE UPPER LOBES AND DIMINISHED LOWER LOBES BILATERAL BREATH SOUNDS. SUCTION SMALL AMOUNT OF THICK GREEN SECRETIONS. BREATHING TREATMENT GIVEN WITH NO ADVERSE REACTIONS. WILL CONTINUE TO MONITOR. Addendum: 03/24/19 at 2128 by MÓNICA GILLETTE RT Amended: Links added.
[2019-03-24] MEDS: ENOXAPARIN SODIUM 40 MG/0.4 ML DISP.SYRIN SQ SCH (21:45)
[2019-03-24] MEDS: INSULIN GLARGINE, 100 UNIT/ML CARTRIDGE SQ SCH (21:45)
[2019-03-24] MEDS: ATORVASTATIN 10 MG TABLET GT SCH (21:45)
[2019-03-25 00:08] VITALS: BP 129/62
[2019-03-25] MEDS: BLOOD SUGAR DIAGNOSTIC 1 EACH STRIP IN SCH ×5 (00:11→23:15)
[2019-03-25] MEDS: DILTIAZEM HCL 30 MG TABLET GT SCH ×5 (00:11→23:15)
[2019-03-25] MEDS: INSULIN ASPART/LISPRO 100 UNIT/ML CARTRIDGE SQ PRN ×5 (00:12→23:16)
[2019-03-25] MEDS: ALBUTEROL FS 2.5 MG/3 ML VIAL.NEB NEB SCH ×4 (01:21→19:35)
[2019-03-25] MEDS: IPRATROPIUM NEB FS 0.5 MG/2.5 ML AMPUL.NEB NEB SCH ×4 (01:21→19:35)
[2019-03-25 06:09] VITALS: BP 119/58
[2019-03-25 07:38] VITALS: BP 132/76
[2019-03-25] MEDS: LEVETIRACETAM SOL (5 ML) 100 MG/ML UDC GT SCH ×2 (09:00→21:34)
[2019-03-25] MEDS: ASCORBIC ACID 500 MG TABLET GT SCH (09:00)
[2019-03-25] MEDS: ACIDOPHILUS/BULGARICUS 1 EACH TAB.CHEW GT SCH ×2 (09:00→16:53)
[2019-03-25] MEDS: DOCUSATE SODIUM LIQ 100 MG/10 ML UDC GT SCH ×2 (09:00→16:53)
[2019-03-25] MEDS: OMEPRAZOLE 20 MG CAPSULE.DR GT SCH (09:00)
[2019-03-25] MEDS: FERROUS SULFATE UDC 300 MG/5 ML UDC GT SCH (09:00)
[2019-03-25] MEDS: Z GUARD REMEDY 2 OZ OINT TP SCH ×2 (09:00→21:35)
[2019-03-25] MEDS: MULTIVIT W/MINERALS 1 TAB TABLET GT SCH (09:00)
[2019-03-25] MEDS: ACETAMINOPHEN 650 MG/20 ML UDC- SA PATIENTS-PAIN ONLY GT SCH ×2 (09:00→21:34)
[2019-03-25] MEDS: ZINC SULFATE 220 MG CAPSULE GT SCH (09:00)
[2019-03-25] MEDS: HYDROGEN PEROXIDE 480 ML BOTTLE TP SCH ×2 (09:00→20:18)
[2019-03-25 15:07] VITALS: BP 116/47
[2019-03-25 18:12] VITALS: BP 92/61
--- NOTE | 2019-03-25 20:03 | NUR ---
PT RCVD TRACH'D ON COOL AEROSOL WITH CHARTED SETTINGS. PT [place] TX WELL. SX DONE. PT TRACH IS PATENT AND SECURE. AMBU BAG AT BEDSIDE. NO SOB NOTED. Addendum: 03/25/19 at 2002 by JOEY PAPPAS RT Amended: Links added.
[2019-03-25 20:59] VITALS: BP 106/75
[2019-03-25] MEDS: ATORVASTATIN 10 MG TABLET GT SCH (21:35)
[2019-03-25] MEDS: ENOXAPARIN SODIUM 40 MG/0.4 ML DISP.SYRIN SQ SCH (21:35)
[2019-03-25] MEDS: INSULIN GLARGINE, 100 UNIT/ML CARTRIDGE SQ SCH (21:36)
[2019-03-26] MEDS: IPRATROPIUM NEB FS 0.5 MG/2.5 ML AMPUL.NEB NEB SCH ×4 (00:51→19:42)
[2019-03-26] MEDS: ALBUTEROL FS 2.5 MG/3 ML VIAL.NEB NEB SCH ×4 (00:51→19:42)
[2019-03-26 02:27] VITALS: BP 112/55
[2019-03-26] MEDS: BLOOD SUGAR DIAGNOSTIC 1 EACH STRIP IN SCH ×3 (05:47→17:22)
[2019-03-26] MEDS: DILTIAZEM HCL 30 MG TABLET GT SCH ×3 (05:47→17:11)
[2019-03-26 06:08] VITALS: BP 116/58
--- NOTE | 2019-03-26 07:58 | NUR ---
RT RECEIVED PT ON COOL AEROSOL AT 5LP. TRACHED WITH PORTEX 9. HOB AT 30 DEGREES.AMBU BAG AT HEAD OF BED. SPARE TRACH AT BEDSIDE. NO RESPIRATORY DISTRESS. WILL CONTINUE TO MONITOR. Addendum: 03/26/19 at 1141 by CALIN LEONARD RT Amended: Links added.
[2019-03-26 08:03] VITALS: BP 124/72
[2019-03-26] MEDS: FERROUS SULFATE UDC 300 MG/5 ML UDC GT SCH (08:54)
[2019-03-26] MEDS: ACIDOPHILUS/BULGARICUS 1 EACH TAB.CHEW GT SCH ×2 (08:54→17:10)
[2019-03-26] MEDS: LEVETIRACETAM SOL (5 ML) 100 MG/ML UDC GT SCH ×2 (08:54→21:44)
[2019-03-26] MEDS: OMEPRAZOLE 20 MG CAPSULE.DR GT SCH (08:54)
[2019-03-26] MEDS: DOCUSATE SODIUM LIQ 100 MG/10 ML UDC GT SCH ×2 (08:54→17:10)
[2019-03-26] MEDS: ZINC SULFATE 220 MG CAPSULE GT SCH (08:55)
[2019-03-26] MEDS: ASCORBIC ACID 500 MG TABLET GT SCH (08:55)
[2019-03-26] MEDS: ACETAMINOPHEN 650 MG/20 ML UDC- SA PATIENTS-PAIN ONLY GT SCH ×2 (08:57→21:44)
[2019-03-26] MEDS: MULTIVIT W/MINERALS 1 TAB TABLET GT SCH (08:58)
[2019-03-26] MEDS: HYDROGEN PEROXIDE 480 ML BOTTLE TP SCH ×2 (09:00→20:07)
[2019-03-26] MEDS: Z GUARD REMEDY 2 OZ OINT TP SCH ×2 (09:35→21:45)
[2019-03-26 12:00] VITALS: BP 145/80
[2019-03-26] MEDS: INSULIN ASPART/LISPRO 100 UNIT/ML CARTRIDGE SQ PRN ×2 (12:10→17:23)
[2019-03-26] MEDS: GLUCERNA 1.2 1,000 ML BOTTLE GT PRN (17:22)
[2019-03-26 18:46] VITALS: BP 118/78
[2019-03-26 20:12] VITALS: BP 137/67
--- NOTE | 2019-03-26 20:16 | NUR ---
PT RCVD TRACH'D ON COOL AEROSOL WITH CHARTED SETTINGS. PT [place] WELL. SX DONE. PT TRACH IS PATENT AND SECURE. AMBU BAG AT BEDSIDE. NO SOB NOTED. Addendum: 03/26/19 at 2017 by JOEY PAPPAS RT Amended: Links added.
[2019-03-26] MEDS: ENOXAPARIN SODIUM 40 MG/0.4 ML DISP.SYRIN SQ SCH (21:45)
[2019-03-26] MEDS: ATORVASTATIN 10 MG TABLET GT SCH (21:45)
[2019-03-26] MEDS: INSULIN GLARGINE, 100 UNIT/ML CARTRIDGE SQ SCH (21:45)
[2019-03-27 00:31] VITALS: BP 121/60
[2019-03-27] MEDS: DILTIAZEM HCL 30 MG TABLET GT SCH ×5 (00:33→23:55)
[2019-03-27] MEDS: BLOOD SUGAR DIAGNOSTIC 1 EACH STRIP IN SCH ×5 (00:33→23:55)
[2019-03-27] MEDS: ALBUTEROL FS 2.5 MG/3 ML VIAL.NEB NEB SCH ×5 (01:17→19:38)
[2019-03-27] MEDS: IPRATROPIUM NEB FS 0.5 MG/2.5 ML AMPUL.NEB NEB SCH ×5 (01:17→19:38)
[2019-03-27 06:06] VITALS: BP 121/67
[2019-03-27 07:48] VITALS: BP 133/79
[2019-03-27] MEDS: HYDROGEN PEROXIDE 480 ML BOTTLE TP SCH ×2 (08:06→20:27)
[2019-03-27] MEDS: MULTIVIT W/MINERALS 1 TAB TABLET GT SCH (08:17)
[2019-03-27] MEDS: Z GUARD REMEDY 2 OZ OINT TP SCH ×2 (08:17→21:57)
[2019-03-27] MEDS: ACIDOPHILUS/BULGARICUS 1 EACH TAB.CHEW GT SCH ×2 (08:17→17:50)
[2019-03-27] MEDS: ASCORBIC ACID 500 MG TABLET GT SCH (08:17)
[2019-03-27] MEDS: LEVETIRACETAM SOL (5 ML) 100 MG/ML UDC GT SCH ×2 (08:17→21:02)
[2019-03-27] MEDS: FERROUS SULFATE UDC 300 MG/5 ML UDC GT SCH (08:17)
[2019-03-27] MEDS: ACETAMINOPHEN 650 MG/20 ML UDC- SA PATIENTS-PAIN ONLY GT SCH ×2 (08:17→21:03)
[2019-03-27] MEDS: DOCUSATE SODIUM LIQ 100 MG/10 ML UDC GT SCH ×2 (08:17→17:50)
[2019-03-27] MEDS: ZINC SULFATE 220 MG CAPSULE GT SCH (08:17)
[2019-03-27] MEDS: OMEPRAZOLE 20 MG CAPSULE.DR GT SCH (08:17)
--- NOTE | 2019-03-27 08:55 | NUR ---
RT PT RECEIVED ON COOL AEROSOL AT 5 LPM. TRACHED WITH PORTEX 9. NO RESPIRATORY DISTRESS. HOB AT 30 DEGRREES. AMBU BAG AT HEAD OF BED. SPARE TRACH AT BEDSIDE. MEDS NOT GIVEN DUE TO TACHYCARDIA. PULSE AT 130. NOTIFIED PT'S NURSE. SAID TO TRY LATER IN AFTERNOON. WILL CONTINUE TO MONITOR Addendum: 03/27/19 at 0902 by CALIN LEONARD RT Amended: Links added.
[2019-03-27 12:00] VITALS: BP 165/83
[2019-03-27] MEDS: GLUCERNA 1.2 1,000 ML BOTTLE GT PRN (12:53)
[2019-03-27] MEDS: INSULIN ASPART/LISPRO 100 UNIT/ML CARTRIDGE SQ PRN ×3 (12:58→23:57)
--- NOTE | 2019-03-27 15:00 | NUR ---
Seen and examined by Kennedi Bender, no new order given.
[2019-03-27 18:00] VITALS: BP 156/78
--- NOTE | 2019-03-27 20:29 | NUR ---
RT NOTE PT RECEIVED TRACHED ON COOL AEROSOL @ 28%. AMBU BAG/BACK UP TRACH @ BEDSIDE. TX GIVEN, NO ADVERSE REACTIONS NOTED. SX DONE, TRACH SECURED AND PATENT. WATER LEVEL GOOD. NO SOB NOTED AT THIS TIME. WILL MONITOR. Addendum: 03/27/19 at 2030 by GIULIA BACON RT Amended: Links added.
[2019-03-27 20:38] VITALS: BP 128/71
[2019-03-27] MEDS: ENOXAPARIN SODIUM 40 MG/0.4 ML DISP.SYRIN SQ SCH (21:04)
[2019-03-27] MEDS: ATORVASTATIN 10 MG TABLET GT SCH (21:04)
[2019-03-27] MEDS: INSULIN GLARGINE, 100 UNIT/ML CARTRIDGE SQ SCH (21:58)
[2019-03-28 00:20] VITALS: BP 147/85
[2019-03-28] MEDS: ALBUTEROL FS 2.5 MG/3 ML VIAL.NEB NEB SCH ×4 (01:29→19:45)
[2019-03-28] MEDS: IPRATROPIUM NEB FS 0.5 MG/2.5 ML AMPUL.NEB NEB SCH ×4 (01:29→19:45)
[2019-03-28] MEDS: DILTIAZEM HCL 30 MG TABLET GT SCH ×3 (05:23→17:55)
[2019-03-28] MEDS: GLUCERNA 1.2 1,000 ML BOTTLE GT PRN ×2 (06:00→22:13)
[2019-03-28] MEDS: BLOOD SUGAR DIAGNOSTIC 1 EACH STRIP IN SCH ×3 (06:10→17:55)
[2019-03-28] MEDS: INSULIN ASPART/LISPRO 100 UNIT/ML CARTRIDGE SQ PRN ×2 (06:13→14:13)
[2019-03-28 06:57] VITALS: BP 151/92
[2019-03-28 07:51] VITALS: BP 158/83
[2019-03-28] MEDS: DOCUSATE SODIUM LIQ 100 MG/10 ML UDC GT SCH ×2 (09:00→17:55)
[2019-03-28] MEDS: ASCORBIC ACID 500 MG TABLET GT SCH (09:00)
[2019-03-28] MEDS: FERROUS SULFATE UDC 300 MG/5 ML UDC GT SCH (09:00)
[2019-03-28] MEDS: LEVETIRACETAM SOL (5 ML) 100 MG/ML UDC GT SCH ×2 (09:00→21:01)
[2019-03-28] MEDS: MULTIVIT W/MINERALS 1 TAB TABLET GT SCH (09:00)
[2019-03-28] MEDS: ZINC SULFATE 220 MG CAPSULE GT SCH (09:00)
[2019-03-28] MEDS: Z GUARD REMEDY 2 OZ OINT TP SCH ×2 (09:00→21:02)
[2019-03-28] MEDS: OMEPRAZOLE 20 MG CAPSULE.DR GT SCH (09:00)
[2019-03-28] MEDS: ACIDOPHILUS/BULGARICUS 1 EACH TAB.CHEW GT SCH ×2 (09:00→17:55)
[2019-03-28] MEDS: ACETAMINOPHEN 650 MG/20 ML UDC- SA PATIENTS-PAIN ONLY GT SCH ×2 (10:20→21:02)
[2019-03-28 12:00] VITALS: BP 128/77
[2019-03-28] MEDS: HYDROGEN PEROXIDE 480 ML BOTTLE TP SCH ×2 (13:59→21:22)
[2019-03-28] MEDS: ACETAMINOPHEN 650 MG/20 ML UDC- SA PATIENTS-FEVER ONLY GT PRN (14:10)
--- NOTE | 2019-03-28 16:00 | NUR ---
Pt has a temp of 101.6 F. Tylenol was given. Ice packs placed under patient's axillae. Removed pt's blanket. Called Dr Pineda's office and left message with Amelia.
--- NOTE | 2019-03-28 17:44 | NUR ---
Notified Dr Capone that pt has a temp of 101.6 F. He said to inform his MERCERIZER Kennedi Bender because she will see pt today. Notified MERCERIZER Kennedi of pt's fever. She ordered CBC BMP UA CXR and said she will see pt around 7 p.m. Called pt's daughter Kelly and left message.
[2019-03-28 18:00] VITALS: BP 123/73
[2019-03-28 18:24] LABS: BASOPHILS # (AUTO) 0.2 /CMM (0.0-0.2); BASOPHILS % (AUTO) 1.4 % (0.0-2.0); EOSINOPHILS % (AUTO) 0.7 % (0.0-6.0); HEMATOCRIT 32 % (33-45); HEMOGLOBIN 9.8 g/dL (11.5-14.8); LYMPHOCYTES # (AUTO) 3.1 /CMM (0.8-4.8); LYMPHOCYTES % (AUTO) 18.8 % (20.0-44.0); MEAN CORPUSCULAR HGB CONC 31 g/dl (31.0-36.0); MEAN CORPUSCULAR VOLUME 86 fL (82-100); MONOCYTES # (AUTO) 1.5 /CMM (0.1-1.30); MONOCYTES % (AUTO) 9.4 % (2.0-12.0); NEUTROPHILS # (AUTO) 11.5 /CMM (1.8-8.9); NEUTROPHILS % (AUTO) 69.7 % (43.0-81.0); PLATELET COUNT (AUTO) 402 /CMM (150-450); RED BLOOD CELL COUNT(AUTO) 3.66 MIL/uL (4.0-5.2); WHITE BLOOD COUNT (AUTO) 16.5 K/uL (4.3-11.0)
[2019-03-28 18:32] LABS: CALCIUM, SERUM 9.1 mg/dL (8.5-10.1); CREATININE 2.6 mg/dL (0.6-1.3); POTASSIUM 5.7 mmol/L (3.5-5.1)
[2019-03-28 19:35] LABS: APPEARANCE,URINE SL CLOUDY (CLEAR); BILIRUBIN,URINE NEGATIVE (NEGATIVE); BLOOD, URINE LARGE Ery/uL (NEGATIVE); COLOR,URINE YELLOW (YELLOW); KETONES,URINE NEGATIVE (NEGATIVE); LEUKOCYTE ESTERASE ,URINE LARGE (NEGATIVE); NITRITE, URINE NEGATIVE (NEGATIVE); PROTEIN,URINE 100 mg/dl (NEGATIVE); UGLUCOSE NEGATIVE (NEGATIVE); UROBILINOGEN,URINE 0.2 EU/dL (0.2)
[2019-03-28 19:58] LABS: BACTERIA,URINE Rare /HPF (None Seen); SQUAMOUS EPITHELIAL CELL,UR Few /HPF (None Seen); WBC,URINE 51-80 /HPF (0-3)
--- NOTE | 2019-03-28 20:00 | NUR ---
COMMUTER PILOT Kennedi Bender seen and examined patient and made aware of labs results.WBC 16.5,Creatinine 2.6,BUN 57,K+ 5.7New order IV NS 70 ml/hr x48 hours.Zosyn 2.25gm q8 hrs and Vacomycin 1 gm q 48 hrs x 5 days per protocol for leukocytosis.Repeat CMP in AM.Left voicemail to daughter Kelly.
[2019-03-28 20:14] VITALS: BP 122/65
[2019-03-28] MEDS ORDERED: VANCOMYCIN 1 GM in IV D5W 250ml IV SCH (21:00)
[2019-03-28] MEDS: ENOXAPARIN SODIUM 40 MG/0.4 ML DISP.SYRIN SQ SCH (21:02)
[2019-03-28] MEDS: ATORVASTATIN 10 MG TABLET GT SCH (21:02)
--- NOTE | 2019-03-28 21:22 | NUR ---
PT RECEIVE STABLE ON 28% FIO2 C/A VIA T-BAR, TRACH PATENT AND SECURED, BACK UP VISH AND RAFFI BAG IS AT BEDSIDE, WILL CONTINUE TO MONITOR Addendum: 03/28/19 at 2122 by BEN FOOTE RT Amended: Links added.
[2019-03-28] MEDS: VANCOMYCIN 1 GM in IV D5W 250ml IV SCH (21:30)
[2019-03-28] MEDS: IV NS 0.9% 1,000 ML IV SCH (21:30)
[2019-03-28] MEDS: PIPERACILLIN /TAZOBACTAM 2.25 G in IV D5W 50 ML IV SCH (21:30)
--- NOTE | 2019-03-28 22:20 | NUR ---
Kelly daughter called updated with patient condition and new medications orders. Appreciative of the call.
[2019-03-28] MEDS: INSULIN GLARGINE, 100 UNIT/ML CARTRIDGE SQ SCH (22:31)
[2019-03-29 00:09] VITALS: BP 129/63
[2019-03-29] MEDS: DILTIAZEM HCL 30 MG TABLET GT SCH ×4 (00:15→17:23)
[2019-03-29] MEDS: BLOOD SUGAR DIAGNOSTIC 1 EACH STRIP IN SCH ×4 (00:16→17:23)
[2019-03-29] MEDS: INSULIN ASPART/LISPRO 100 UNIT/ML CARTRIDGE SQ PRN ×4 (00:18→17:26)
[2019-03-29] MEDS: ALBUTEROL FS 2.5 MG/3 ML VIAL.NEB NEB SCH ×4 (01:29→19:46)
[2019-03-29] MEDS: IPRATROPIUM NEB FS 0.5 MG/2.5 ML AMPUL.NEB NEB SCH ×4 (01:29→19:46)
[2019-03-29] MEDS: PIPERACILLIN /TAZOBACTAM 2.25 G in IV D5W 50 ML IV SCH ×3 (05:44→21:40)
[2019-03-29] MEDS: ACETAMINOPHEN 650 MG/20 ML UDC- SA PATIENTS-FEVER ONLY GT PRN ×2 (06:07→18:57)
[2019-03-29 06:34] VITALS: BP 142/71
[2019-03-29 07:33] LABS: CALCIUM, SERUM 8.6 mg/dL (8.5-10.1); CREATININE 2.7 mg/dL (0.6-1.3); POTASSIUM 5.4 mmol/L (3.5-5.1)
[2019-03-29 07:52] VITALS: BP 128/72
[2019-03-29] MEDS: HYDROGEN PEROXIDE 480 ML BOTTLE TP SCH ×2 (08:12→21:00)
[2019-03-29] MEDS: IV NS 0.9% 1,000 ML IV SCH ×2 (08:24→21:44)
[2019-03-29] MEDS: DOCUSATE SODIUM LIQ 100 MG/10 ML UDC GT SCH ×2 (09:29→17:22)
[2019-03-29] MEDS: ZINC SULFATE 220 MG CAPSULE GT SCH (09:30)
[2019-03-29] MEDS: ACETAMINOPHEN 650 MG/20 ML UDC- SA PATIENTS-PAIN ONLY GT SCH ×2 (09:30→21:50)
[2019-03-29] MEDS: LEVETIRACETAM SOL (5 ML) 100 MG/ML UDC GT SCH ×2 (09:30→21:50)
[2019-03-29] MEDS: ASCORBIC ACID 500 MG TABLET GT SCH (09:30)
[2019-03-29] MEDS: ACIDOPHILUS/BULGARICUS 1 EACH TAB.CHEW GT SCH ×2 (09:30→17:22)
[2019-03-29] MEDS: MULTIVIT W/MINERALS 1 TAB TABLET GT SCH (09:30)
[2019-03-29] MEDS: FERROUS SULFATE UDC 300 MG/5 ML UDC GT SCH (09:30)
[2019-03-29] MEDS: Z GUARD REMEDY 2 OZ OINT TP SCH ×2 (09:30→21:50)
[2019-03-29] MEDS: OMEPRAZOLE 20 MG CAPSULE.DR GT SCH (09:30)
--- NOTE | 2019-03-29 10:00 | NUR ---
Reported repeat BMP result with potassium of 5.4 to MILLY Bender with new order to give Kayexalate 30 gm. x 1. Left message to Kelly (daughter) regarding new order.
[2019-03-29] MEDS ORDERED: SODIUM POLYSTYRENE SULFONATE 15 G/60 ML BOTTLE GT ONE (11:00)
--- NOTE | 2019-03-29 12:50 | NUR ---
Family Invitation to Holiday Lunch-In: Mending Carrier contacted the patients responsible alliance party/Daughter, Kelly Wong [phone] to invite them to attend the Family Holiday Lunch-In taking place 04/04/19 from 11:30pm-1:00pm. Call went to voicemail and communicated above stated information. SW encouraged the family to visit the patient for the holidays. Addendum: 03/29/19 at 1509 by LUIS ALBERTO NARAYANAN Mending Carrier also emailed Kelly a flyer inviting family to attend the Sub-Acute Holiday Lunch-In taking place 04/04/19 from 11:30pm-1:00pm.
[2019-03-29 15:46] VITALS: BP 129/73
[2019-03-29] MEDS: GLUCERNA 1.2 1,000 ML BOTTLE GT PRN (17:27)
[2019-03-29 18:45] VITALS: BP 145/83
[2019-03-29 20:00] VITALS: BP 122/64
--- NOTE | 2019-03-29 21:03 | NUR ---
RN NOTES: AT 1914, RELAYED RESULT OF BMP, CBC, CHEST XRAY, UA C&S TO ID ASUNCIONKRISTY RAMIRESCORNELIUS. RESULT FOLLOWS: WBC 16.5, URINE WBC 51-80, URINE RBC 11-20 K 5.4, BUN 56, CREA 2.7, CXR LINEAR SCARRING/ATELECTASIS AT LEFT LUNG BASE, UA C&S SHOWS GRAM NEGATIVE RODS TEMP 102.1 HR 98 RR 15 SPO2 100% BP 122/64 ID MADE AWARE PT WAS STARTED ON IV ZOSYN AND VANCO. AT 2025-RECEIVED ORDER FROM ASUNCION PERSON TO INSERT INDWELLING GILLIAM CATHETER FOR POSSIBLE URINARY RETENTION. . ORDER READ BACK, VERIFIED AND CARRIED OUT. AT 2044- NOTIFIED PT'S FAMILY, NEELA ESPINOSA REGARDING NEW ORDER FOR GILLIAM CATHER AND GIVEN UPDATE REGARDING PT'S CONDITION. PER NEELA SHE MAY DROP BY TONIGHT OR TOMORROW AM. QUESTIONS/CONCERNS WERE ANSWERED.
[2019-03-29] MEDS: ENOXAPARIN SODIUM 40 MG/0.4 ML DISP.SYRIN SQ SCH (21:50)
[2019-03-29] MEDS: ATORVASTATIN 10 MG TABLET GT SCH (22:10)
[2019-03-29] MEDS: INSULIN GLARGINE, 100 UNIT/ML CARTRIDGE SQ SCH (22:27)
--- NOTE | 2019-03-29 23:12 | NUR ---
PT RECEIVE STABLE ON CA 28% FIO2 VIA T-BAR, TRACH PATENT AND SECURED , ABELARDO WAHL AND RAFFI BAG IS AT BEDSIDE , WILL CONTINUE TO MONITOR Addendum: 03/29/19 at 2312 by BEN FOOTE RT Amended: Links added.
[2019-03-30] MEDS: INSULIN ASPART/LISPRO 100 UNIT/ML CARTRIDGE SQ PRN ×5 (00:30→23:39)
[2019-03-30] MEDS: DILTIAZEM HCL 30 MG TABLET GT SCH ×5 (00:35→23:37)
[2019-03-30] MEDS: BLOOD SUGAR DIAGNOSTIC 1 EACH STRIP IN SCH ×5 (00:35→23:37)
[2019-03-30 01:00] VITALS: BP 112/52
--- NOTE | 2019-03-30 01:21 | NUR ---
RN NOTES: PRN TYLENOL ADMINISTERED FOR EPISODE OF FEVER. COOLING MEASURES PROVIDED,ICE PACKED UNDER AXILLA. REMOVED EXCESS THICK BLANKET. DUE MEDS ADMINISTERED. IVF INFUSING ORDERED. IV ATB ZOSYN ADMINISTERED SCHEDULED. COLD BATH PROVIDED TO HELP MANAGE FEVER. ID NOTIFIED. GILLIAM CATHETER INSERTED PER MD ORDER. AFTER ALL THESE INTERVENTIONS, LATEST TEMP OF PT IS 99.1. WILL CONTINUE WITH COOLING MEASURES. WILL CONTINUE MONITORING VS.
[2019-03-30] MEDS: IPRATROPIUM NEB FS 0.5 MG/2.5 ML AMPUL.NEB NEB SCH ×4 (01:51→19:47)
[2019-03-30] MEDS: ALBUTEROL FS 2.5 MG/3 ML VIAL.NEB NEB SCH ×4 (01:51→19:47)
[2019-03-30] MEDS: ACETAMINOPHEN 650 MG/20 ML UDC- SA PATIENTS-FEVER ONLY GT PRN (04:32)
[2019-03-30] MEDS: ALBUTEROL FS 2.5 MG/3 ML VIAL.NEB NEB PRN ×2 (04:57→23:24)
[2019-03-30] MEDS: PIPERACILLIN /TAZOBACTAM 2.25 G in IV D5W 50 ML IV SCH ×3 (05:22→22:00)
[2019-03-30] MEDS: HYDROCODONE/APAP 5/325MG 1 EACH TABLET GT PRN ×2 (06:05→16:21)
[2019-03-30 06:06] VITALS: BP 120/69
--- NOTE | 2019-03-30 06:08 | NUR ---
pt given prn norco 5/325 mg for pain m/b facial girmacing. all comfort measures rendered. will conitinue to monitor. charge nurse aware.
--- NOTE | 2019-03-30 06:17 | NUR ---
RN NOTES: PT CONTINUE TO SPIKED TEMP DESPITE COOLING MEASURES, TMAX 102.1. NOTED NASAL FLARING RR 30 HR 115 BP 126/69, TEMP NOW 102. PRN TYLENOL ADMINISTERED AT 0432AM. PRN VENTOLIN NEB ADMINISTERED BY RT AT 0457AM. NOTIFIED DR CARREON OF PT'S CONDITION. AT 0550AM, RECEIVED CALL BACK FROM , WITH ORDERS TO REPEAT CBC, CMP, MG PHOS ON Monday/Mar. ORDERS READ BACK, VERIFIED, AND CARRIED OUT.
--- NOTE | 2019-03-30 07:09 | NUR ---
norco effective. pt sleeping , calm, no facial grimacing noted. all needs attended. Will endorse to oncoming shift.
[2019-03-30 07:43] VITALS: BP 129/74
[2019-03-30] MEDS: HYDROGEN PEROXIDE 480 ML BOTTLE TP SCH ×2 (08:05→21:44)
--- NOTE | 2019-03-30 08:13 | NUR ---
Seen and examined by Dr. Martin, reported that patient developed fever; labs, urine culture and chest X-ray were done. Currently patient is on IV ATB and IV fluid due to elevated BUN. Temperature last night reached to 102.1 and MILLY Mcelroy was made aware with order to insert gaines catheter. According to Dr. Martin he will take a look at the lab results. Continue to monitor temperature, cooling measures and Tylenol given.
[2019-03-30] MEDS: LEVETIRACETAM SOL (5 ML) 100 MG/ML UDC GT SCH ×2 (09:00→21:00)
[2019-03-30] MEDS: ASCORBIC ACID 500 MG TABLET GT SCH (09:00)
[2019-03-30] MEDS: MULTIVIT W/MINERALS 1 TAB TABLET GT SCH (09:00)
[2019-03-30] MEDS: ZINC SULFATE 220 MG CAPSULE GT SCH (09:00)
[2019-03-30] MEDS: Z GUARD REMEDY 2 OZ OINT TP SCH ×2 (09:00→21:00)
[2019-03-30] MEDS: OMEPRAZOLE 20 MG CAPSULE.DR GT SCH (09:00)
[2019-03-30] MEDS: FERROUS SULFATE UDC 300 MG/5 ML UDC GT SCH (09:00)
[2019-03-30] MEDS: DOCUSATE SODIUM LIQ 100 MG/10 ML UDC GT SCH ×2 (09:00→16:20)
[2019-03-30] MEDS: ACETAMINOPHEN 650 MG/20 ML UDC- SA PATIENTS-PAIN ONLY GT SCH ×3 (09:00→22:19)
[2019-03-30] MEDS: ACIDOPHILUS/BULGARICUS 1 EACH TAB.CHEW GT SCH ×2 (09:00→16:20)
[2019-03-30 12:00] VITALS: BP 130/73
[2019-03-30] MEDS: IV NS 0.9% 1,000 ML IV SCH ×2 (13:20→17:00)
--- NOTE | 2019-03-30 15:40 | NUR ---
Notified Dr. Martin that IVF is only for 48 hours. Patient's BUN 56 and Creat 2.7 (03/29/19) with order to continue IVF. Order carried out.
--- NOTE | 2019-03-30 17:00 | NUR ---
New order of IVF NS was acknowledged but non-administered because previously order IVF NS was just hanged.
--- NOTE | 2019-03-30 18:23 | NUR ---
Seen and examined by MILLY Mcelroy, notified that patient's temperature is on and off, at this time 99.9 and currently on IVF and IV ATB, Zosyn and Vanco. According to MILLY Mcelroy, will wait for the final culture result. Endorsed.
[2019-03-30 18:57] VITALS: BP 147/83
[2019-03-30 19:32] VITALS: BP 120/57
[2019-03-30] MEDS: VANCOMYCIN 1 GM in IV D5W 250ml IV SCH (21:00)
[2019-03-30] MEDS: ENOXAPARIN SODIUM 40 MG/0.4 ML DISP.SYRIN SQ SCH (21:00)
--- NOTE | 2019-03-30 21:35 | NUR ---
Charge nurse called radiology to checked if the US Kidney will be done tonight. spoke to the lady and she stated that unless it is stat order, it will be done tomorrow because they dont have the tech right now.
[2019-03-30] MEDS: ATORVASTATIN 10 MG TABLET GT SCH (22:19)
[2019-03-30] MEDS: INSULIN GLARGINE, 100 UNIT/ML CARTRIDGE SQ SCH (22:36)
[2019-03-30] MEDS: IPRATROPIUM NEB FS 0.5 MG/2.5 ML AMPUL.NEB NEB PRN (23:24)
--- NOTE | 2019-03-30 23:24 | NUR ---
RT NOTES PRN HHN TX GIVEN FOR SOB. PROMARYNURSE AND CHARGE NURSE AWARE. WILL CONT TO MONITOR.
[2019-03-31] VITALS: BP 119/75
[2019-03-31] MEDS: ALBUTEROL FS 2.5 MG/3 ML VIAL.NEB NEB SCH ×4 (02:25→19:50)
[2019-03-31] MEDS: IPRATROPIUM NEB FS 0.5 MG/2.5 ML AMPUL.NEB NEB SCH ×4 (02:25→19:50)
[2019-03-31 06:00] VITALS: BP 161/89
[2019-03-31] MEDS: DILTIAZEM HCL 30 MG TABLET GT SCH ×3 (06:03→18:00)
[2019-03-31] MEDS: BLOOD SUGAR DIAGNOSTIC 1 EACH STRIP IN SCH ×3 (06:05→18:00)
[2019-03-31] MEDS: INSULIN ASPART/LISPRO 100 UNIT/ML CARTRIDGE SQ PRN ×3 (06:07→18:01)
[2019-03-31] MEDS: ACETAMINOPHEN 650 MG/20 ML UDC- SA PATIENTS-FEVER ONLY GT PRN ×2 (06:11→13:00)
[2019-03-31] MEDS: hydrALAZINE HCL 10 MG TABLET GT PRN (06:18)
--- NOTE | 2019-03-31 06:56 | NUR ---
0600 Patient awake, Temp 101.0 f hr 111, cooling and comfort measures rendered. O2sat 97%, Charge aware. Will continue to monitor.
[2019-03-31] MEDS: IV NS 0.9% 1,000 ML IV SCH ×2 (07:18→21:22)
[2019-03-31 07:28] VITALS: BP 167/99
[2019-03-31] MEDS: HYDROCODONE/APAP 5/325MG 1 EACH TABLET GT PRN (07:40)
[2019-03-31 08:07] LABS: BASOPHILS % (AUTO) 0.3 % (0.0-2.0); EOSINOPHILS % (AUTO) 0.7 % (0.0-6.0); HEMATOCRIT 31 % (33-45); HEMOGLOBIN 9.4 g/dL (11.5-14.8); LYMPHOCYTES # (AUTO) 1.9 /CMM (0.8-4.8); LYMPHOCYTES % (AUTO) 16.1 % (20.0-44.0); MEAN CORPUSCULAR HGB CONC 30 g/dl (31.0-36.0); MEAN CORPUSCULAR VOLUME 88 fL (82-100); MONOCYTES # (AUTO) 0.2 /CMM (0.1-1.30); MONOCYTES % (AUTO) 2.1 % (2.0-12.0); NEUTROPHILS # (AUTO) 9.7 /CMM (1.8-8.9); NEUTROPHILS % (AUTO) 80.8 % (43.0-81.0); PLATELET COUNT (AUTO) 416 /CMM (150-450); RED BLOOD CELL COUNT(AUTO) 3.54 MIL/uL (4.0-5.2); WHITE BLOOD COUNT (AUTO) 11.9 K/uL (4.3-11.0)
--- NOTE | 2019-03-31 08:09 | NUR ---
RT NOTE PATIENT WAS PLACED ON VENT PRN PER MD ORDER. PATIENT HAD INCREASED WORK OF BREATHING. SETTINGS ARE SET PER MD ORDER. WILL CONTINUE TO MONITOR. Addendum: 03/31/19 at 0811 by MÓNICA GILLETTE RT Amended: Links added.
[2019-03-31] MEDS: HYDROGEN PEROXIDE 480 ML BOTTLE TP SCH ×2 (08:13→21:20)
[2019-03-31 08:23] LABS: BILIRUBIN,TOTAL 0.2 mg/dL (0.2-1.0); CALCIUM, SERUM 8.1 mg/dL (8.5-10.1); MAGNESIUM 2.5 mg/dL (1.8-2.4); PHOSPHORUS 3.3 mg/dL (2.5-4.9); POTASSIUM 5.4 mmol/L (3.5-5.1); TOTAL PROTEIN, SERUM 8.3 g/dL (6.4-8.2)
[2019-03-31 08:36] LABS: ALBUMIN 1.1 g/dL (3.4-5.0)
--- NOTE | 2019-03-31 08:49 | NUR ---
Called the Dr. Pineda office to inform about abnormal lab results, albumin 1.1, and patient was placed on ventilator PRN due to SOB, with current settings ac 12, vt 500, fio2 50%, peep +5, will continue to titrate and monitor, current vital signs b/p 165/99, hr 112, temp 102.0 oral, cooling measures provided, also will await for further orders, and continue to monitor patient.
[2019-03-31] MEDS: MULTIVIT W/MINERALS 1 TAB TABLET GT SCH (09:00)
[2019-03-31] MEDS: LEVETIRACETAM SOL (5 ML) 100 MG/ML UDC GT SCH ×2 (09:00→21:33)
[2019-03-31] MEDS: ACIDOPHILUS/BULGARICUS 1 EACH TAB.CHEW GT SCH ×2 (09:00→17:00)
[2019-03-31] MEDS: DOCUSATE SODIUM LIQ 100 MG/10 ML UDC GT SCH ×2 (09:00→17:00)
[2019-03-31] MEDS: Z GUARD REMEDY 2 OZ OINT TP SCH ×2 (09:00→21:34)
[2019-03-31] MEDS: ACETAMINOPHEN 650 MG/20 ML UDC- SA PATIENTS-PAIN ONLY GT SCH ×2 (09:00→21:34)
[2019-03-31] MEDS: OMEPRAZOLE 20 MG CAPSULE.DR GT SCH (09:00)
[2019-03-31] MEDS: FERROUS SULFATE UDC 300 MG/5 ML UDC GT SCH (09:00)
[2019-03-31] MEDS: ASCORBIC ACID 500 MG TABLET GT SCH (09:00)
[2019-03-31] MEDS: ZINC SULFATE 220 MG CAPSULE GT SCH (09:00)
--- NOTE | 2019-03-31 10:25 | NUR ---
Seen and examined by Dr. Capone with new orders stat ABG, order carried out and responsible democrat made aware.
[2019-03-31] MEDS ORDERED: SODIUM POLYSTYRENE SULFONATE 15 G/60 ML BOTTLE PO ONE (10:30)
--- NOTE | 2019-03-31 10:30 | NUR ---
Seen and examined by Dr. Martin with new orders -Kayexelate (sodium polystyrene sulfonate g/60ml bottle, 30g via gtube x 1 dose, creatine urine, eosinophil urine, urine sodium, urine total protein, on 04/01/19 magnesium level, and phosphorus level, all orders carried out, and responsible alliance party made aware. Addendum: 03/31/19 at 1116 by JOÃO BROWNE RN Cont from above- Informed Dr. Martin regarding abnormal albumin level 1.1.
[2019-03-31 11:24] LABS: ABG BASE EXCESS -1.5 mmol/L; ABG OXYGEN SATURATION 98.2 % (92.0-98.5); ABG PCO2 35.3 mmHg (35.0-45.0); ABG PH 7.423 (7.350-7.450); ABG PO2 139.8 mmHg (75.0-100.0); COHb 0.3 % (0.5-1.5); MetHb 0.3 % (0.0-1.5); O2Hb 97.6 % (94.0-97.0); PEEP,BG 5 cm H2O; SITE, ABG Left Radial; VENT MODE, BG AC 12 500 50% +5
--- NOTE | 2019-03-31 11:30 | NUR ---
RT NOTE ABG PROCEDURE PERFORMED. RESULTS WERE READ BACK TO RN AND DR. CARREON. FIO2 DECREASED PER DR CARREON ORDER. NO SOB NOTED. Addendum: 03/31/19 at 1142 by MÓNICA GILLETTE RT Amended: Links added.
[2019-03-31 11:32] LABS: APPEARANCE,URINE TURBID (CLEAR); BILIRUBIN,URINE NEGATIVE (NEGATIVE); BLOOD, URINE LARGE Ery/uL (NEGATIVE); COLOR,URINE YELLOW (YELLOW); KETONES,URINE NEGATIVE (NEGATIVE); LEUKOCYTE ESTERASE ,URINE MODERATE (NEGATIVE); NITRITE, URINE NEGATIVE (NEGATIVE); PH,URINE 5.5 (5.0-8.0); PROTEIN,URINE 30 mg/dl (NEGATIVE); UGLUCOSE NEGATIVE (NEGATIVE); UROBILINOGEN,URINE 0.2 EU/dL (0.2)
[2019-03-31 11:39] LABS: BACTERIA,URINE Few /HPF (None Seen); MUCUS,URINE Few /LPF (None Seen); RBC,URINE 81-100 /HPF (0-2); SQUAMOUS EPITHELIAL CELL,UR 0-2 /HPF (None Seen); URINE AMORPHOUS URATE Few /HPF (None Seen)
--- NOTE | 2019-03-31 11:42 | NUR ---
ABG's results were within normal range, Dr. Capone informed by RT ([id number]), per Dr. Capone to decrease fio2 maintain at 40 %, patient will remain in Vent as per order, no sob noted, will continue to monitor patient.
[2019-03-31 11:46] LABS: CREATININE, URINE 118.5 MG/DL (30.0-125.0); URINE TOTAL PROTEIN 127.1 mg/dL (0-11.9)
[2019-03-31 11:54] LABS: EOSINOPHIL,URINE None Seen
[2019-03-31] MEDS: GLUCERNA 1.2 1,000 ML BOTTLE GT PRN (11:55)
[2019-03-31] MEDS: PIPERACILLIN /TAZOBACTAM 2.25 G in IV D5W 50 ML IV SCH ×3 (14:00→21:22)
[2019-03-31 14:34] VITALS: BP 92/52
--- NOTE | 2019-03-31 17:10 | NUR ---
Per Dr. Pineda new order arterial puncture, Rt made aware of new order, order carried out, responsible constitution party made aware. Addendum: 03/31/19 at 1800 by JOÃO BROWNE RN Error charting, no new order per Dr. Pineda.
--- NOTE | 2019-03-31 17:25 | NUR ---
RT NOTE TRACH IS PATENT AND SECURED.VENT IS PLUGGED TO RED OUTLET, ALARMS ARE SET AND AUDIBLE. SPARE TRACH AND BVM IS AT BEDSIDE. PATIENT IS STABLE AND IN SYNC WITH THE VENT. PATIENT HAS EQUAL CHEST RISE AND HAS COARSE BILATERAL BREATH SOUNDS. SUCTION SMALL AMOUNT OF THICK GREEN SECRETIONS TROUGH OUT THE DAY. GAVE BREATHING TREATMENTS WITH NO ADVERSE REACTION. Addendum: 03/31/19 at 1726 by MÓNICA GILLETTE RT Amended: Links added.
--- NOTE | 2019-03-31 17:30 | NUR ---
Per Dr. Kathrin Wilkerson new order for ct-abdomen wo constrast and US kidney, order carried out, responsible alliance party made aware.
[2019-03-31 18:16] VITALS: BP 92/52
[2019-03-31 20:46] VITALS: BP_SYST 100; BP_SYST 136; BP_DIAS 63; BP_DIAS 76
[2019-03-31] MEDS: ATORVASTATIN 10 MG TABLET GT SCH (21:34)
[2019-03-31] MEDS: ENOXAPARIN SODIUM 40 MG/0.4 ML DISP.SYRIN SQ SCH (21:34)
[2019-03-31] MEDS: INSULIN GLARGINE, 100 UNIT/ML CARTRIDGE SQ SCH (21:35)
[2019-04-01 00:14] VITALS: BP 122/68
[2019-04-01] MEDS: BLOOD SUGAR DIAGNOSTIC 1 EACH STRIP IN SCH ×2 (00:17→06:05)
[2019-04-01] MEDS: DILTIAZEM HCL 30 MG TABLET GT SCH ×2 (00:17→06:05)
[2019-04-01] MEDS: INSULIN ASPART/LISPRO 100 UNIT/ML CARTRIDGE SQ PRN (00:18)
[2019-04-01] MEDS: IPRATROPIUM NEB FS 0.5 MG/2.5 ML AMPUL.NEB NEB SCH ×2 (01:30→08:02)
[2019-04-01] MEDS: ALBUTEROL FS 2.5 MG/3 ML VIAL.NEB NEB SCH ×2 (01:30→08:02)
[2019-04-01] MEDS: hydrALAZINE HCL 10 MG TABLET GT PRN (02:05)
[2019-04-01] MEDS: ACETAMINOPHEN 650 MG/20 ML UDC- SA PATIENTS-FEVER ONLY GT PRN (02:05)
--- NOTE | 2019-04-01 02:08 | NUR ---
RN NOTES PT. NOTED WITH RESPIRATORY DISTRESS. PT. SUCTIONED AND BREATHING TREATMENT GIVEN WITH LITTLE RELIEF NOTED. RECHECKED PT. TEMPERATURE, TEMP. NOTED TO BE 102F. COOLING MEASURES IMPLEMENTED AND PRN TYLENOL ADMINISTERED. OBTAINED ORDER FOR ABG. ABG RESULTED NORMAL. WILL CONTINUE TO MONITOR
[2019-04-01 02:09] LABS: ABG BASE EXCESS -3.1 mmol/L; ABG OXYGEN SATURATION 99.1 % (92.0-98.5); ABG PCO2 31.8 mmHg (35.0-45.0); ABG PH 7.427 (7.350-7.450); ABG PO2 354.4 mmHg (75.0-100.0); AaDO2 326.8 mmHg; COHb 0.3 % (0.5-1.5); MetHb 0.5 % (0.0-1.5); O2Hb 98.3 % (94.0-97.0); SITE, ABG Left Radial
[2019-04-01] MEDS: PIPERACILLIN /TAZOBACTAM 2.25 G in IV D5W 50 ML IV SCH (05:45)
[2019-04-01 06:02] VITALS: BP 112/52
[2019-04-01 06:26] LABS: BASOPHILS % (AUTO) 0.4 % (0.0-2.0); EOSINOPHILS % (AUTO) 0.4 % (0.0-6.0); HEMATOCRIT 25 % (33-45); HEMOGLOBIN 7.9 g/dL (11.5-14.8); LYMPHOCYTES # (AUTO) 1.1 /CMM (0.8-4.8); LYMPHOCYTES % (AUTO) 9.9 % (20.0-44.0); MEAN CORPUSCULAR HGB CONC 31 g/dl (31.0-36.0); MEAN CORPUSCULAR VOLUME 86 fL (82-100); MONOCYTES # (AUTO) 0.6 /CMM (0.1-1.30); MONOCYTES % (AUTO) 5.7 % (2.0-12.0); NEUTROPHILS # (AUTO) 9.3 /CMM (1.8-8.9); NEUTROPHILS % (AUTO) 83.6 % (43.0-81.0); PLATELET COUNT (AUTO) 368 /CMM (150-450); RED BLOOD CELL COUNT(AUTO) 2.94 MIL/uL (4.0-5.2); WHITE BLOOD COUNT (AUTO) 11.1 K/uL (4.3-11.0)
[2019-04-01 07:13] LABS: BILIRUBIN,TOTAL 0.3 mg/dL (0.2-1.0); CALCIUM, SERUM 7.9 mg/dL (8.5-10.1); CREATININE 3.1 mg/dL (0.6-1.3); MAGNESIUM 2.5 mg/dL (1.8-2.4); POTASSIUM 3.8 mmol/L (3.5-5.1); TOTAL PROTEIN, SERUM 7.2 g/dL (6.4-8.2)
[2019-04-01 07:30] LABS: ALBUMIN 1.4 g/dL (3.4-5.0)
[2019-04-01 07:46] VITALS: BP 92/56
[2019-04-01] MEDS: HYDROGEN PEROXIDE 480 ML BOTTLE TP SCH (08:05)
[2019-04-01] MEDS: DOCUSATE SODIUM LIQ 100 MG/10 ML UDC GT SCH (09:00)
[2019-04-01] MEDS: MULTIVIT W/MINERALS 1 TAB TABLET GT SCH (09:00)
[2019-04-01] MEDS: ZINC SULFATE 220 MG CAPSULE GT SCH (09:00)
[2019-04-01] MEDS: ASCORBIC ACID 500 MG TABLET GT SCH (09:00)
[2019-04-01] MEDS: Z GUARD REMEDY 2 OZ OINT TP SCH (09:00)
[2019-04-01] MEDS: ACIDOPHILUS/BULGARICUS 1 EACH TAB.CHEW GT SCH (09:00)
[2019-04-01] MEDS: ACETAMINOPHEN 650 MG/20 ML UDC- SA PATIENTS-PAIN ONLY GT SCH (09:00)
[2019-04-01] MEDS: LEVETIRACETAM SOL (5 ML) 100 MG/ML UDC GT SCH (09:00)
[2019-04-01] MEDS: FERROUS SULFATE UDC 300 MG/5 ML UDC GT SCH (09:00)
[2019-04-01] MEDS: OMEPRAZOLE 20 MG CAPSULE.DR GT SCH (09:00)
--- NOTE | 2019-04-01 10:25 | NUR ---
Dr Pineda aware of lab results. He ordered to transfer pt to ER due to worsening kidney function and anemia. Notified Kelly.
--- NOTE | 2019-04-01 11:30 | NUR ---
Pt transferred to ER accompanied by CLARE Cruz and RT Rubio. Report given to TABATHA August. Pt's daughter Kelly said she will see pt today.
[2019-04-01] MEDS ORDERED: HYDR-4384 GT (11:54)
[2019-04-01] MEDS ORDERED: ONDA4TAB5 GT (11:54)
[2019-04-01] MEDS ORDERED: ZINC1CAP2 GT (11:54)
[2019-04-01] MEDS ORDERED: VANC1PLA9 IV (11:54)
[2019-04-01] MEDS ORDERED: DILT30TA14 GT (11:54)
[2019-04-01] MEDS ORDERED: ENOX40DI SQ (11:54)
[2019-04-01] MEDS ORDERED: PIPE2.254 IV (11:54)
[2019-04-01] MEDS ORDERED: ACID1TAB12 GT (11:54)
[2019-04-01] MEDS ORDERED: HYDR1SOL TP (11:54)
[2019-04-01] MEDS ORDERED: OMEP-293 GT (11:54)
[2019-04-01] MEDS ORDERED: DEXT50DI8 IV (11:54)
[2019-04-01] MEDS ORDERED: ALLA266C2 TP (11:54)
[2019-04-01] MEDS ORDERED: NORM10004 IV (11:54)
[2019-04-01] MEDS ORDERED: VIT500LI GT (11:54)
--- NOTE | 2019-04-01 12:27 | NUR ---
SW completed Resident Transfer Notice and Bed Hold Notification forms and filed it in patient's chart.
[2019-04-04] MEDS ORDERED: IV NS 0.9% 1,000 ML IV PRN (08:46)
[2019-04-10] MEDS ORDERED: Z Guard Remedy TP (06:51)
[2019-04-10] MEDS ORDERED: Hydrogel Dressing TP (06:51)
[2019-04-10] MEDS ORDERED: RXVAN XX (06:51)
[2019-04-10] MEDS ORDERED: CEFE2FRO IV (06:51)
[2019-04-10] MEDS ORDERED: VANC1PLA9 IV (06:51)
== END 2019-04-01 11:45 | disposition short-term general hospital (02) | DRG 166 ==
LOC: SA → UNDOLOA 04-01 11:40 → SA 04-03 21:56 → UNDOLOA 04-09 09:42
PROVIDERS: ADMIT Internal Medicine Nephrology; ATTEND Internal Medicine Nephrology
PROC: 0KBP0ZZ Excision of Left Hip Muscle, Open Approach (ICD-10-PCS; 2018-04-26)
PROC: 0KBP0ZZ Excision of Left Hip Muscle, Open Approach (ICD-10-PCS; 2018-05-10)
PROC: 0KBP0ZZ Excision of Left Hip Muscle, Open Approach (ICD-10-PCS; 2018-05-24)
PROC: 0KBP0ZZ Excision of Left Hip Muscle, Open Approach (ICD-10-PCS; 2018-06-07)
PROC: 0KBP0ZZ Excision of Left Hip Muscle, Open Approach (ICD-10-PCS; 2018-06-21)
PROC: 0QB10ZZ Excision of Sacrum, Open Approach (ICD-10-PCS; 2018-07-05)
PROC: 0KBP0ZZ Excision of Left Hip Muscle, Open Approach (ICD-10-PCS; 2018-07-19)
PROC: 0KBP0ZZ Excision of Left Hip Muscle, Open Approach (ICD-10-PCS; 2018-08-02)
PROC: 0KBP0ZZ Excision of Left Hip Muscle, Open Approach (ICD-10-PCS; 2018-08-23)
PROC: 0KBP0ZZ Excision of Left Hip Muscle, Open Approach (ICD-10-PCS; 2018-09-06)
PROC: 0QB10ZZ Excision of Sacrum, Open Approach (ICD-10-PCS; 2018-09-20)
PROC: 05H933Z Insertion of Infusion Device into Right Brachial Vein, Percutaneous Approach (ICD-10-PCS; principal; 2018-10-04)
PROC: 0KBP0ZZ Excision of Left Hip Muscle, Open Approach (ICD-10-PCS; 2018-10-04)
PROC: 0KBP0ZZ Excision of Left Hip Muscle, Open Approach (ICD-10-PCS; 2018-11-04)
PROC: 0KBP0ZZ Excision of Left Hip Muscle, Open Approach (ICD-10-PCS; 2018-11-12)
PROC: 0KBP0ZZ Excision of Left Hip Muscle, Open Approach (ICD-10-PCS; 2018-11-26)
PROC: 0KBN0ZZ Excision of Right Hip Muscle, Open Approach (ICD-10-PCS; 2018-11-26)
PROC: 0KBP0ZZ Excision of Left Hip Muscle, Open Approach (ICD-10-PCS; 2018-12-10)
PROC: 0KBP0ZZ Excision of Left Hip Muscle, Open Approach (ICD-10-PCS; 2018-12-24)
PROC: 0KBP0ZZ Excision of Left Hip Muscle, Open Approach (ICD-10-PCS; 2019-01-07)
PROC: 0HBJXZZ Excision of Left Upper Leg Skin, External Approach (ICD-10-PCS; 2019-01-21)
PROC: 0JBM0ZZ Excision of Left Upper Leg Subcutaneous Tissue and Fascia, Open Approach (ICD-10-PCS; 2019-01-28)
PROC: 0JBM0ZZ Excision of Left Upper Leg Subcutaneous Tissue and Fascia, Open Approach (ICD-10-PCS; 2019-02-05)
PROC: 0JBM0ZZ Excision of Left Upper Leg Subcutaneous Tissue and Fascia, Open Approach (ICD-10-PCS; 2019-02-14)
DX: J96.10 Chronic respiratory failure, unspecified whether with hypoxia or hypercapnia (principal); L89.313 Pressure ulcer of right buttock, stage 3; L89.324 Pressure ulcer of left buttock, stage 4; L89.153 Pressure ulcer of sacral region, stage 3; R53.2 Functional quadriplegia; G92 Toxic encephalopathy; N17.0 Acute kidney failure with tubular necrosis; Z99.11 Dependence on respirator [ventilator] status; Z93.0 Tracheostomy status; R13.10 Dysphagia, unspecified; Z93.1 Gastrostomy status; D50.9 Iron deficiency anemia, unspecified; E11.9 Type 2 diabetes mellitus without complications; D69.2 Other nonthrombocytopenic purpura; F03.90 Unspecified dementia, unspecified severity, without behavioral disturbance, psychotic disturbance, mood disturbance, and anxiety; F09 Unspecified mental disorder due to known physiological condition; G40.909 Epilepsy, unspecified, not intractable, without status epilepticus; I10 Essential (primary) hypertension; J44.9 Chronic obstructive pulmonary disease, unspecified; Z83.3 Family history of diabetes mellitus; Z82.49 Family history of ischemic heart disease and other diseases of the circulatory system; D64.9 Anemia, unspecified; E66.01 Morbid (severe) obesity due to excess calories; K21.9 Gastro-esophageal reflux disease without esophagitis; Z74.01 Bed confinement status; Z86.73 Personal history of transient ischemic attack (TIA), and cerebral infarction without residual deficits; Z79.899 Other long term (current) drug therapy; L60.3 Nail dystrophy; M62.40 Contracture of muscle, unspecified site; E87.5 Hyperkalemia
CPT/HCPCS: 31720; 36415; 36569; 36600; 71045-TC; 74018; 76770-TC; 80048-TC; 80053-TC; 81000-TC; 82570-TC; 82728-TC; 82803-TC; 82962-TC; 83540-TC; 83735-TC; 83880; 84100-TC; 84132-TC; 84155-TC; 84300-TC; 85025-TC; 86580-TC; 87040-TC; 87086-TC; 87186-TC; 94002-TC; 94003-TC; 94640-TC; 94760-TC; 94799-TC; 99082-TC; A4217; A4623; A6248; A6253; A7526; J0696; J1650; J1815; J1953; J2543; J3370; J3490; J7060; J7070; Q9963

== ENCOUNTER 2019-04-01 11:36 | Inpatient (IN) | payer MEDICARE, OTHER ==
[~2019-04-01] VITALS: Ht 154.9 cm; Wt 90.3 kg
--- NOTE | 2019-04-01 11:40 | NUR ---
PT SENT BY FROM SUB ACUTE C/O ON AND OFF FEVER STARTED YESTERDAY, PT IS AAOX0, ON VENT VIA TRACH, HOOKED TO MONITOR, KEPT RESTED AND COMFORTABLE, AWAITING ROOM FOR ADMISSION. WILL CONTINUE TO MONITOR.
[2019-04-01] MEDS ORDERED: ACID1TAB12 GT (11:54)
[2019-04-01] MEDS ORDERED: NORM10004 IV (11:54)
[2019-04-01] MEDS ORDERED: VANC1PLA9 IV (11:54)
[2019-04-01] MEDS ORDERED: VIT500LI GT (11:54)
[2019-04-01] MEDS ORDERED: HYDR-4384 GT (11:54)
[2019-04-01] MEDS ORDERED: OMEP20CA15 GT (11:54)
[2019-04-01] MEDS ORDERED: ENOX40DI SQ (11:54)
[2019-04-01] MEDS ORDERED: HYDR1SOL TP (11:54)
[2019-04-01] MEDS ORDERED: ONDA4TAB5 GT (11:54)
[2019-04-01] MEDS ORDERED: ZINC1CAP2 GT (11:54)
[2019-04-01] MEDS ORDERED: ALLA266C2 TP (11:54)
[2019-04-01] MEDS ORDERED: DILT30TA14 GT (11:54)
[2019-04-01] MEDS ORDERED: DEXT50DI8 IV (11:54)
[2019-04-01] MEDS ORDERED: PIPE2.254 IV (11:54)
[2019-04-01 12:00] VITALS: BP 97/52
--- NOTE | 2019-04-01 12:03 | NUR ---
REPORT GIVEN TO TABATHA LY FOR LEONARD ON RISA.
--- NOTE | 2019-04-01 12:03 | NUR ---
RECEIVED TELEPHONE REPORT FROM CHANDLER MAYS
--- NOTE | 2019-04-01 12:10 | NUR ---
RECEIVED PT IN [facility] FROM ER TO ROOM 114-1 ADMITTED TO RISA. PT CAME FROM SUB ACUTE DUE TO HAVING INTERMITTENT FEVER FOR THE PAST COUPLE OF DAYS. VITALS UPON RECEIVING THE PT: 97/52 MMhG, RR 20, HR 81, 98.0 TEMP, 02 SAT 100%. PT ON VENT, TOLERATING SETTINGS WELL, RESPIRATIONS EVEN AND UNLABORED, NO SIGNS OF RESPIRATORY DISTRESS NOTED. RIGHT UPPER ARM MIDLINE INTACT, PATENT, SECURED WITH CLEAN DRESSING. GILLIAM CATHETER INTACT, PATENT, DRAINING CLEAR YELLOW URINE. G-TUBE INTACT, PATENT, 5CC RESIDUAL NOTED. HEAD TO TOE ASSESSMENT PERFORMED- WOUND NOTED ON LEFT BUTTOCK, RIGHT BUTTOCK AND SACRAL AREA, ADMISSION PHOTOS TAKEN, PLACED INTO CHART, WOUND CONSULT ORDERED, WOUND CARE PLAN INITIATED. ON TELE MONITOR SINUS RHYTHM. BED IN LOW POSITION, LOCKED, CALL LIGHT WITHIN REACH, HOB ELEVATED, ALL EXTREMITIES OFFLOADED.
[2019-04-01] MEDS ORDERED: IPRATROPIUM NEB FS 0.5 MG/2.5 ML AMPUL.NEB IH PRN (14:00)
[2019-04-01] MEDS ORDERED: ACETAMINOPHEN 650 MG/20.3 ML UDC GT PRN (14:00)
[2019-04-01] MEDS ORDERED: BISACODYL SUPP (10 MG) 10 MG/SUPP.RECT SUPP.RECT RC PRN (14:00)
[2019-04-01] MEDS ORDERED: IV NS 0.9% 1,000 ML BAG IV SCH (14:00)
[2019-04-01] MEDS ORDERED: ALBUTEROL FS 2.5 MG/0.5 ML VIAL.NEB IH PRN (14:00)
[2019-04-01] MEDS ORDERED: ENOXAPARIN SODIUM 40 MG/0.4 ML DISP.SYRIN SQ SCH (14:00)
[2019-04-01] MEDS ORDERED: IV D5/0.45 NACL 1,000 ML IV SCH (14:00)
[2019-04-01] MEDS ORDERED: MAGNESIUM HYDROXIDE 30 ML UDC GT PRN (14:00)
[2019-04-01] MEDS ORDERED: hydrALAZINE HCL 10 MG TABLET GT PRN (14:00)
[2019-04-01] MEDS ORDERED: NA PHOS,M-B/NA PHOS,DI-BA 1 EA ENEMA RC PRN (14:00)
[2019-04-01] MEDS ORDERED: DEXTROSE 50%-WATER 50 ML DISP.SYRIN IV PRN (14:00)
[2019-04-01] MEDS ORDERED: HYDROCODONE/APAP 5/325MG 1 EACH TABLET GT PRN (14:00)
[2019-04-01] MEDS ORDERED: ONDANSETRON HCL 4 MG/5 ML SOLUTION GT PRN (14:30)
[2019-04-01] MEDS ORDERED: FEE PK DOSING 1 MIN EA MC ONE (14:36)
[2019-04-01 16:00] VITALS: BP 102/60
[2019-04-01] MEDS ORDERED: VANCOMYCIN 1 GM in IV D5W 250 ML IV SCH (16:00)
[2019-04-01] MEDS ORDERED: VANCOMYCIN 0.75 GM in IV D5W 250 ML IV SCH (16:00)
[2019-04-01] MEDS: PIPERACILLIN /TAZOBACTAM 2.25 G in IV D5W 50 ML IV SCH ×2 (16:08→22:38)
--- NOTE | 2019-04-01 16:49 | NUR ---
RT Patient received trach'd and on [facility] vent w charted settings. Vent is plugged into the red outlet w bvm @ hob. Alarms are set and audible. Pt is stable. No respiratory distress or sob t/o shift. Will continue to monitor. Addendum: 04/01/19 at 1718 by AFTAB MONTEMAYOR RT Amended: Links added.
[2019-04-01] MEDS: DOCUSATE SODIUM LIQ 100 MG/10 ML UDC GT SCH (17:07)
[2019-04-01] MEDS: ACIDOPHILUS/BULGARICUS 1 EACH TAB.CHEW GT SCH (17:07)
[2019-04-01] MEDS: DILTIAZEM HCL 30 MG TABLET GT SCH ×2 (17:08→23:48)
[2019-04-01] MEDS: GLUCERNA 1.2 1,000 ML BOTTLE GT SCH (17:27)
--- NOTE | 2019-04-01 17:40 | NUR ---
NOTIFIED MD OF CT PELVIS SCAN RESULTS FROM 04/01/2019. DR. HONG.
[2019-04-01] MEDS: BLOOD SUGAR DIAGNOSTIC 1 EACH STRIP IN SCH ×2 (18:01→23:47)
[2019-04-01] MEDS: INSULIN ASPART/LISPRO 100 UNIT/ML CARTRIDGE SQ PRN ×2 (18:17→23:47)
--- NOTE | 2019-04-01 19:08 | NUR ---
RISA RN CLOSING NOTE PT ON VENT, TOLERATING SETTINGS WELL, RESPIRATIONS EVEN AND UNLABORED, NO SIGNS OF RESPIRATORY DISTRESS NOTED. RIGHT UPPER ARM MIDLINE INTACT, PATENT, SECURED WITH CLEAN DRESSING. GILLIAM CATHETER INTACT, PATENT, DRAINING CLEAR YELLOW URINE 250CC OUTPUT THROUGHOUT SHIFT. G-TUBE INTACT, PATENT, GLUCERNA INFUSING 70CC/HR, PT TOLERATING FEEDING WELL. ON TELE MONITOR SINUS RHYTHM. BED IN LOW POSITION, LOCKED, CALL LIGHT WITHIN REACH, HOB ELEVATED, ALL EXTREMITIES OFFLOADED, TURNED AND REPOSITIONED PT EVERY 2 HOURS THROUGHOUT SHIFT, ALL DUE MEDS GIVEN, PROVIDED SAFETY AND COMFORT. ENDORSED TO [facility] SHIFT NURSE.
[2019-04-01] MEDS: IV NS 0.9% 1,000 ML IV PRN (19:40)
--- NOTE | 2019-04-01 19:43 | NUR ---
RISA RN NOTE RECEIVED PT IN BED OBTUNDED. ON VENT/TRACH TOLERATING THE SETTINGS WELL. NO DISTRESS OR DISCOMFORT NOTED. NO S/S OF PAIN NOTED. HOB KEPT IT ELEVATED, ON GTF GLUCERNA AT 70 ML/HR, 0 ML RESIDUAL NOTED. INF NS INFUSING AT 70 ML/HR, NO S/S OF INFILTRATION NOTED. F/C INTACT AND PATENT DRAINING YELLOWISH COLOR URINE. ON TELE MONITOR SR HR 93. REPOSITION HER FOR SKIN MANAGEMENT. SIDE RAILS UP X 3 AND CALL LIGHT WITHIN REACH. VSS. CONTINUE TO MONITOR HER.
[2019-04-01] MEDS: IPRATROPIUM NEB FS 0.5 MG/2.5 ML AMPUL.NEB IH SCH (19:47)
[2019-04-01] MEDS: ALBUTEROL FS 2.5 MG/0.5 ML VIAL.NEB IH SCH (19:47)
[2019-04-01 20:00] VITALS: BP 129/63
[2019-04-01] MEDS: HYDROGEN PEROXIDE 480 ML BOTTLE TP SCH (21:00)
[2019-04-01] MEDS ORDERED: PIPERACILLIN /TAZOBACTAM 2.25 G VIAL IV SCH (21:00)
[2019-04-01] MEDS: ATORVASTATIN 10 MG TABLET GT SCH (22:36)
[2019-04-01] MEDS: LEVETIRACETAM SOL (5 ML) 100 MG/ML UDC GT SCH (22:36)
[2019-04-01] MEDS: ACETAMINOPHEN 650 MG/20.3 ML UDC GT SCH (22:38)
[2019-04-01] MEDS: Z GUARD REMEDY 2 OZ OINT TP SCH (22:39)
[2019-04-01] MEDS: INSULIN GLARGINE, 100 UNIT/ML CARTRIDGE SQ SCH (23:45)
[2019-04-02] VITALS: BP 117/48
[2019-04-02] MEDS: ALBUTEROL FS 2.5 MG/0.5 ML VIAL.NEB IH SCH ×4 (01:53→19:24)
[2019-04-02] MEDS: IPRATROPIUM NEB FS 0.5 MG/2.5 ML AMPUL.NEB IH SCH ×4 (01:53→19:24)
[2019-04-02 07:54] LABS: CALCIUM, SERUM 7.7 mg/dL (8.5-10.1); CREATININE 3.1 mg/dL (0.6-1.3); POTASSIUM 4.1 mmol/L (3.5-5.1)
[2019-04-02 08:00] VITALS: BP 115/50
--- NOTE | 2019-04-02 08:00 | NUR ---
RISA RN notes Received pt in the bed, obtunded, eyes open, with trach to vent setting. RT at bedside on tele monitor SR HR 95. Pt has edema in R hand and both legs. Keep elevated on pillow as tolerated. Pt has a gtube feeding hold per order. No residual noted. Keep HOB elevated all the time. REBECA midline intact, flush well, on IVF as odered. Bed on lowest position for safety. Temp 101.3 cooling measures started. Will continue to monitor.
[2019-04-02 08:52] LABS: BASOPHILS # (AUTO) 0.1 /CMM (0.0-0.2); BASOPHILS % (AUTO) 0.4 % (0.0-2.0); EOSINOPHILS % (AUTO) 1.6 % (0.0-6.0); HEMATOCRIT 23 % (33-45); HEMOGLOBIN 7.1 g/dL (11.5-14.8); LYMPHOCYTES # (AUTO) 1.5 /CMM (0.8-4.8); LYMPHOCYTES % (AUTO) 11.4 % (20.0-44.0); MEAN CORPUSCULAR HGB CONC 32 g/dl (31.0-36.0); MEAN CORPUSCULAR VOLUME 86 fL (82-100); MONOCYTES # (AUTO) 0.6 /CMM (0.1-1.30); MONOCYTES % (AUTO) 4.3 % (2.0-12.0); NEUTROPHILS # (AUTO) 10.6 /CMM (1.8-8.9); NEUTROPHILS % (AUTO) 82.3 % (43.0-81.0); PLATELET COUNT (AUTO) 371 /CMM (150-450); RED BLOOD CELL COUNT(AUTO) 2.63 MIL/uL (4.0-5.2); WHITE BLOOD COUNT (AUTO) 12.9 K/uL (4.3-11.0)
[2019-04-02] MEDS: LEVETIRACETAM SOL (5 ML) 100 MG/ML UDC GT SCH ×2 (09:05→22:42)
[2019-04-02] MEDS: ACIDOPHILUS/BULGARICUS 1 EACH TAB.CHEW GT SCH ×2 (09:06→16:39)
[2019-04-02] MEDS: DOCUSATE SODIUM LIQ 100 MG/10 ML UDC GT SCH ×2 (09:06→16:39)
[2019-04-02] MEDS: ACETAMINOPHEN 650 MG/20.3 ML UDC GT SCH ×2 (09:06→22:42)
[2019-04-02] MEDS: FERROUS SULFATE UDC 300 MG/5 ML UDC GT SCH (09:06)
[2019-04-02] MEDS: ASCORBIC ACID 500 MG TABLET GT SCH (09:07)
[2019-04-02] MEDS: PANTOPRAZOLE 40 MG/PACK PACK GT SCH (09:07)
[2019-04-02] MEDS: MULTIVIT W/MINERALS 1 TAB TABLET GT SCH (09:07)
[2019-04-02] MEDS: ZINC SULFATE 220 MG CAPSULE GT SCH (09:07)
[2019-04-02] MEDS: HYDROGEN PEROXIDE 480 ML BOTTLE TP SCH ×2 (09:20→22:44)
[2019-04-02] MEDS: Z GUARD REMEDY 2 OZ OINT TP SCH ×2 (09:21→22:44)
[2019-04-02] MEDS: HEPARIN SODIUM, PORCINE 5000 UNITS/1 ML VIAL SQ SCH ×2 (09:33→16:46)
--- NOTE | 2019-04-02 11:30 | NUR ---
RISA RN NOTES Rounds made, family on bedside. Keep clean and dry. Temp 99.5 . Will continue to monitor. Pt family wants to speak with Dr. Lim. Jeane MALIK, will f/u.
[2019-04-02] MEDS: GLUCERNA 1.2 1,000 ML BOTTLE GT SCH (11:46)
[2019-04-02 12:00] VITALS: BP 135/63
[2019-04-02] MEDS: PIPERACILLIN /TAZOBACTAM 2.25 G in IV D5W 50 ML IV SCH ×3 (12:01→22:42)
[2019-04-02] MEDS: IV NS 0.9% 1,000 ML IV PRN (12:01)
[2019-04-02] MEDS: INSULIN ASPART/LISPRO 100 UNIT/ML CARTRIDGE SQ PRN ×2 (12:10→17:37)
[2019-04-02] MEDS: DILTIAZEM HCL 30 MG TABLET GT SCH ×3 (12:35→17:28)
[2019-04-02] MEDS: BLOOD SUGAR DIAGNOSTIC 1 EACH STRIP IN SCH ×5 (12:36→23:22)
--- NOTE | 2019-04-02 15:00 | NUR ---
RISA RN NOTES Pt made bowel movement. Keep clean and dry. Repositioned as ordered. Trach care done. Will continue to monitor.
[2019-04-02 16:00] VITALS: BP 158/84
--- NOTE | 2019-04-02 17:30 | NUR ---
RISA RN NOTES Called Dr Lim and notified about Hemoglobin 7.1. Pt on heparin subq, per Dr Lim ok to give heparin.
--- NOTE | 2019-04-02 18:47 | NUR ---
RISA RN NOTES Rest comfortably on bed. Continue gtube feeding and on vent setting. Keep HOB elevated. Kept clean and dry. No SOB or wheezing noted. Will continue to monitor.
[2019-04-02 20:00] VITALS: BP 128/68
[2019-04-02] MEDS: INSULIN GLARGINE, 100 UNIT/ML CARTRIDGE SQ SCH (22:00)
[2019-04-02] MEDS: ATORVASTATIN 10 MG TABLET GT SCH (22:42)
--- NOTE | 2019-04-02 23:22 | NUR ---
RN NOTE DID NOT ADMINISTER LANTUS OF REGULAR INSULIN DUE TO PATIENT BEING NPO AT 0000 FOR STENT PROCEDURE IN THE MORNING
[2019-04-03] VITALS: BP 119/71
[2019-04-03] MEDS: DILTIAZEM HCL 30 MG TABLET GT SCH ×4 (00:54→17:12)
[2019-04-03] MEDS: HEPARIN SODIUM, PORCINE 5000 UNITS/1 ML VIAL SQ SCH ×2 (01:30→08:36)
--- NOTE | 2019-04-03 01:39 | NUR ---
TD RN NOTE SKIPPED HEPARIN SCHEDULED AT 0130 DUE TO PROCEDURE IN THE MORNING OF JJ STENT PLACEMENT.
[2019-04-03] MEDS: ALBUTEROL FS 2.5 MG/0.5 ML VIAL.NEB IH SCH ×4 (02:00→19:46)
[2019-04-03] MEDS: IPRATROPIUM NEB FS 0.5 MG/2.5 ML AMPUL.NEB IH SCH ×4 (02:00→19:46)
[2019-04-03 04:00] VITALS: BP 125/71
[2019-04-03] MEDS: IV NS 0.9% 1,000 ML IV PRN ×2 (04:21→20:54)
[2019-04-03] MEDS: PIPERACILLIN /TAZOBACTAM 2.25 G in IV D5W 50 ML IV SCH ×3 (04:25→21:18)
[2019-04-03] MEDS: BLOOD SUGAR DIAGNOSTIC 1 EACH STRIP IN SCH ×3 (06:22→17:15)
--- NOTE | 2019-04-03 07:30 | NUR ---
RISA RN INITIAL NOTE RECEIVED PATIENT OBTUNDED, NON-VERBAL, VENT DEPENDENT, DOES NOT FOLLOW COMMANDS. NO S/S OF PAIN OR DISCOMFORT. NO RESPIRATORY DISTRESS NOTED. TOLERATING CURRENT VENT SETTINGS. GT PATENT, INTACT, IN PLACE, CLAMPED AT THIS TIME. ON TELE MONITOR SINUS ABDI WITH OCC PVCS. HOB ELEVATED. TURNED AND REPOSITIONED. SIDE RAILS UP AND LOCKED. BED KEPT AT LOWEST POSITION. FOR PLANNED SURGERY TODAY. WILL CONTINUE TO MONITOR.
--- NOTE | 2019-04-03 07:45 | NUR ---
RN NOTE PATIENT IN BED WITH NO SIGN OF ANY DISTRESS. PATIENT TOLERATING VENT WELL. ON MONITOR NSR IN THE 80'S. ALL NEEDS MET. ENDORSED PATIENT TO MORNING SHIFT NURSE FOR LEONARD.
[2019-04-03 08:00] VITALS: BP 119/63
--- NOTE | 2019-04-03 08:24 | NUR ---
WOUND CARE CONSULT: PT FOLLOWED BY PLASTIC SURGERY TEAM. DEFER TO SURGICAL TEAM FOR WOUND TREATMENT PLAN. PT ON FIRST STEP CORNELIO LOW AIRLOSS MATTRESS. DISCUSSED SKIN PROTECTION WITH NURSING STAFF. WILL SEE PRN.
[2019-04-03] MEDS: ACETAMINOPHEN 650 MG/20.3 ML UDC GT SCH ×2 (08:34→21:33)
[2019-04-03] MEDS: DOCUSATE SODIUM LIQ 100 MG/10 ML UDC GT SCH ×3 (08:34→17:12)
[2019-04-03] MEDS: LEVETIRACETAM SOL (5 ML) 100 MG/ML UDC GT SCH ×2 (08:34→21:33)
[2019-04-03] MEDS: HYDROGEN PEROXIDE 480 ML BOTTLE TP SCH ×2 (08:34→21:33)
[2019-04-03] MEDS: FERROUS SULFATE UDC 300 MG/5 ML UDC GT SCH (08:35)
[2019-04-03] MEDS: ACIDOPHILUS/BULGARICUS 1 EACH TAB.CHEW GT SCH ×2 (08:35→17:12)
[2019-04-03] MEDS: ZINC SULFATE 220 MG CAPSULE GT SCH (08:35)
[2019-04-03] MEDS: PANTOPRAZOLE 40 MG/PACK PACK GT SCH (08:35)
[2019-04-03] MEDS: MULTIVIT W/MINERALS 1 TAB TABLET GT SCH (08:35)
[2019-04-03] MEDS: Z GUARD REMEDY 2 OZ OINT TP SCH ×2 (08:35→21:33)
[2019-04-03] MEDS: ASCORBIC ACID 500 MG TABLET GT SCH (08:35)
[2019-04-03 12:00] VITALS: BP 125/56
[2019-04-03] MEDS: INSULIN ASPART/LISPRO 100 UNIT/ML CARTRIDGE SQ PRN ×2 (12:05→17:16)
[2019-04-03 12:16] LABS: IRON, SERUM 13 ug/dl (50-175); TOTAL IRON BINDING CAPACITY 110 ug/dl (250-450)
[2019-04-03 12:29] LABS: BASOPHILS % (AUTO) 0.3 % (0.0-2.0); EOSINOPHILS % (AUTO) 1.6 % (0.0-6.0); HEMATOCRIT 21 % (33-45); LYMPHOCYTES # (AUTO) 1.8 /CMM (0.8-4.8); LYMPHOCYTES % (AUTO) 16.2 % (20.0-44.0); MEAN CORPUSCULAR HGB CONC 31 g/dl (31.0-36.0); MEAN CORPUSCULAR VOLUME 85 fL (82-100); MONOCYTES # (AUTO) 0.6 /CMM (0.1-1.30); MONOCYTES % (AUTO) 5.7 % (2.0-12.0); NEUTROPHILS # (AUTO) 8.4 /CMM (1.8-8.9); NEUTROPHILS % (AUTO) 76.2 % (43.0-81.0); PLATELET COUNT (AUTO) 342 /CMM (150-450); RED BLOOD CELL COUNT(AUTO) 2.49 MIL/uL (4.0-5.2)
--- NOTE | 2019-04-03 12:30 | NUR ---
RISA RN NOTE PATIENT IN OR FOR PROCEDURE, DAUGHTER EPIFANIO INFORMED.
[2019-04-03 12:44] LABS: MAGNESIUM 2.6 mg/dL (1.8-2.4); PHOSPHORUS 3.7 mg/dL (2.5-4.9); POTASSIUM 3.9 mmol/L (3.5-5.1)
[2019-04-03 13:25] LABS: HEMOGLOBIN 6.6 g/dL (11.5-14.8)
--- NOTE | 2019-04-03 13:44 | NUR ---
RISA RN NOTE PATIENT BACK IN ROOM WITH OR NURSE FOR RECOVERY. INFORMED DR. PAULSON REGARDING CRITICAL H/H 6.6 WITH ORDERS TO TRANSFUSE. Addendum: 04/03/19 at 1602 by MONIKA CASTANON RN PATIENT CAME BACK WITH NEW GILLIAM CATHETER. PER SURGERY NURSE GILLIAM CATHETER WAS CHANGED DURING PROCEDURE. NOTED WITH BLOODY OUTPUT. WILL CONTINUE TO MONITOR.
--- NOTE | 2019-04-03 14:30 | NUR ---
dr. ace radiologist spoke with dr. tipton will do ct guided drain abcess in am with catheter ,will notify daughter and get consent.
--- NOTE | 2019-04-03 14:32 | NUR ---
heparin discontinue per radilogist ,no blood thinners .
[2019-04-03] MEDS: GLUCERNA 1.2 1,000 ML BOTTLE GT SCH (14:39)
[2019-04-03 16:00] VITALS: BP 120/55
[2019-04-03 16:31] LABS: LYMPHOCYTES % (MANUAL) 16 % (16-48); NEUTROPHILS % (MANUAL) 78 (42-76)
[2019-04-03 16:32] LABS: EOSINOPHILS % (MANUAL) 2 % (0-4); MONOCYTES % (MANUAL) 4 % (0-11.0)
[2019-04-03] MEDS ORDERED: Z GUARD REMEDY 4 OZ OINT TP PRN (17:30)
--- NOTE | 2019-04-03 17:50 | NUR ---
RISA RN NOTE RECEIVED CALL FROM LAB, WITH INFORMATION REGARDING PATIENTS BLOOD. BLOOD WONT BE READY TIL MUCH LATER, THEY NEED TO RETRIEVE MORE BLOOD FROM ANOTHER BUILDING AND PATIENT HAS HISTORY OF ANTIBODIES. WILL RELAY TO WASHING MACHINE OPERATOR.
--- NOTE | 2019-04-03 18:00 | NUR ---
RISA MAYS NOTE NON-ADMIN COLACE, PATIENT NOTED WITH LOOSE BOWEL MOVEMENT. WILL CONTINUE TO MONITOR. Addendum: 04/03/19 at 1853 by MONIKA CASTANON RN PLEASE CORRECT: NOT LOOSE BOWEL MOVEMENT. BHUPENDRA LIKE BOWEL MOVEMENT.
--- NOTE | 2019-04-03 18:50 | NUR ---
RISA RN NOTE SPOKE TO DAUGHTER LAYNE, STATED SHE IS ON HER WAY OVER TO VISIT HER MOTHER. ATTEMPTED TO OBTAIN CONSENT FOR NEPHROSTOMY TUBE TOMORROW AND INFORMED HER REGARDING ORDER FOR BLOOD TRANSFUSION. PER DAUGHTER SHE DID NOT CONSENT TO BLOOD TRANSFUSION. REMOVED CURRENT BLOOD TRANSFUSION CONSENT FROM CHART. DAUGHTER STATED SHE WILL LOOK AT THE CONSENTS WHEN SHE ARRIVES, DUE TO SHE IS DRIVING. WILL RELAY TO NIGHT NURSE.
--- NOTE | 2019-04-03 19:39 | NUR ---
RISA RN CLOSING NOTE CONTINUITY OF CARE ENDORSED TO NIGHT NURSE.
[2019-04-03 20:00] VITALS: BP 130/57
--- NOTE | 2019-04-03 20:33 | NUR ---
TELE-TD/RN THE DAUGHTER, NEEAL, IS HERE, ASKED HER TO SIGN THE CONSENT FOR BLOOD TRANSFUSION(H&H 6.10/05), PER DAUGHTER SHE NEEDS TO SPEAK TO THE DRM[employer] FIRST BEFORE SHE SIGNS THE CONSENT. I THEN CALLED AND SPOKE TO DR. PAULSON. PER DR. PAULSON, IF THE DAUGHTER DOES NOT WANT BLOOD TRANSFUSION, THEN DO NOT GIVE BLOOD TRANSFUSION. DAUGHTER AT BEDSIDE WAS MADE AWARE, PER DAUGHTER SHE WILL CALL DR. PAULSON HERSELF AND ASKED ME DR. PAULSON'S NUMBER WHICH I GAVE. CHARGE NURSE MADE AWARE.
--- NOTE | 2019-04-03 21:20 | NUR ---
TELE-TD/RN PER DAUGHTER, SHE CALLED AND SPOKE TO DR. PAULSON, AND THAT SHE IS HOLDING OFF THE BLOOD TRANSFUSION TONIGHT, AND DR. PAULSON WILL CHECK LAB WORKS TOMORROW. THE DAUGHTER FURTHER SAID, SHE IS AGREEABLE FOR THE PROCEDURE FOR TOMORROW AND THAT SHE WILL THE CONSENT. SHE DID SIGN THE CONSENT FOR THE CT PERCUTANEOUS DRAIN ABSCESS WITH CATHETER NEPHROSTOMY TUBE PLACEMENT.
[2019-04-03] MEDS: ATORVASTATIN 10 MG TABLET GT SCH (21:33)
[2019-04-03] MEDS: INSULIN GLARGINE, 100 UNIT/ML CARTRIDGE SQ SCH (22:00)
--- NOTE | 2019-04-03 22:05 | NUR ---
[address] GAINES AND OBTAINED VENT SETTINGS ORDER AND CONTINUOUS PULSE OXIMETRY ORDER. ORDER NOTED AND CARRIED OUT. RT COOK MADE AWARE OF ORDERS.
--- NOTE | 2019-04-03 22:27 | NUR ---
TELE-TD/RN ACCU CHECK BLOOD SUGAR 170, PATIENT WILL BE NPO AFTER MIDNIGHT, LANTUS 26 UNITS NOT GIVEN.
--- NOTE | 2019-04-03 23:21 | NUR ---
PT RCVD TRACH'D ON MECHANICAL VENT WITH CHARTED SETTINGS. PT [place] TX WELL. SX DONE. PT TRACH IS PATENT AND SECURE. VENT ALARMS APPEAR TO BE FUNCTIONING PROPERLY. AMBU BAG AT BEDSIDE. VENT PLUGGED INTO RED OUTLET. NO SOB NOTED. Addendum: 04/03/19 at 2322 by JOEY PAPPAS RT Amended: Links added.
[2019-04-04] VITALS (7 sets, daily range): BP systolic 99–152; BP diastolic 50–86
[2019-04-04] MEDS: BLOOD SUGAR DIAGNOSTIC 1 EACH STRIP IN SCH ×4 (00:56→17:49)
[2019-04-04] MEDS: DILTIAZEM HCL 30 MG TABLET GT SCH ×4 (00:57→17:15)
--- NOTE | 2019-04-04 00:57 | NUR ---
TELE-TD/RN ACCU CHECK BLOOD SUGAR 184, PATIENT IS NPO, GT FEEDING STOPPED PER ORDER FOR PROCEDURE IN A.M. DID NOT GIVE INSULIN COVERAGE. WILL MONITOR. WILL RECHECK BLOOD SUGAR 06:00.
[2019-04-04] MEDS: IPRATROPIUM NEB FS 0.5 MG/2.5 ML AMPUL.NEB IH SCH ×4 (01:29→19:43)
[2019-04-04] MEDS: ALBUTEROL FS 2.5 MG/0.5 ML VIAL.NEB IH SCH ×4 (01:29→19:43)
[2019-04-04] MEDS: PIPERACILLIN /TAZOBACTAM 2.25 G in IV D5W 50 ML IV SCH ×3 (05:07→21:59)
--- NOTE | 2019-04-04 05:20 | NUR ---
RT NOTE RT CALLED TO BEDSIDE POST PT BEING CHANGED. PT IN RESPIRATORY DISTRESS. INCREASED RESP RATE AND SOB NOTED. RT BEGAN TO BAG PATIENT. PRN TX ADMINISTERED. PT REPOSITIONED. POST PRN TX NO ACUTE RESPIRATORY DISTRESS NOTED. PT RESP RATE DECREASED TO 19 BREATHS PER MINUTE POST TX. NO SOB NOTED. PT LOOKS COMFORTABLE. CHARGE NURSE ROBIN AND RN KENISHA AWARE.
--- NOTE | 2019-04-04 05:35 | NUR ---
0535 DOCTOR LIANA WAS NOTIFIED THAT PATIENT BECAME TACHYPNEIC RR IN THE HIGH 30S, SOB, AND AGITATED AFTER AM CARE. RT AT BEDSIDE AND STARTED AMBU BAGGING PATIENT. BREATHING TREATMENT ADMINISTERED ORDERED. PER DR. GAINES GIVE PATIENT LASIX 40 MG IVP ONE DOSE AND ATIVAN 2 MG IVP ONE DOSE. ORDER NOTED, TABATHA DE NOTIFIED OF MD ORDER.
[2019-04-04] MEDS ORDERED: FUROSEMIDE 40 MG/4 ML VIAL IV ONE (06:00)
[2019-04-04] MEDS ORDERED: LORAZEPAM INJ 2 MG/ML VIAL IV ONE (06:00)
--- NOTE | 2019-04-04 06:31 | NUR ---
TELE-TD/RN ATIVAN 2 MG IVP AND LASIX 40 MG IVP WERE GIVEN AT AROUND 0500 ORDERED FOR EPISODE OF AGITATION, TACHYPNEA AND TACHYCARDIA. PATIENT IS SLEEPING AT THIS TIME, CALM AND COMFORTABLE, NO SIGNS OF DISTRESS NOTED, NPO POST MIDNIGHT, ALL NEEDS ATTENDED AT THIS TIME. WILL CONTINUE TO MONITOR.
[2019-04-04 07:14] LABS: CALCIUM, SERUM 8.5 mg/dL (8.5-10.1); CREATININE 3.1 mg/dL (0.6-1.3); MAGNESIUM 2.6 mg/dL (1.8-2.4); PHOSPHORUS 4.4 mg/dL (2.5-4.9); POTASSIUM 4.5 mmol/L (3.5-5.1)
[2019-04-04 07:24] LABS: BASOPHILS % (AUTO) 0.4 % (0.0-2.0); EOSINOPHILS % (AUTO) 1.7 % (0.0-6.0); HEMATOCRIT 24 % (33-45); HEMOGLOBIN 7.6 g/dL (11.5-14.8); LYMPHOCYTES # (AUTO) 0.8 /CMM (0.8-4.8); LYMPHOCYTES % (AUTO) 7.4 % (20.0-44.0); MEAN CORPUSCULAR HGB CONC 32 g/dl (31.0-36.0); MEAN CORPUSCULAR VOLUME 86 fL (82-100); MONOCYTES # (AUTO) 0.4 /CMM (0.1-1.30); MONOCYTES % (AUTO) 3.3 % (2.0-12.0); NEUTROPHILS # (AUTO) 9.2 /CMM (1.8-8.9); NEUTROPHILS % (AUTO) 87.2 % (43.0-81.0); PLATELET COUNT (AUTO) 389 /CMM (150-450); RED BLOOD CELL COUNT(AUTO) 2.81 MIL/uL (4.0-5.2); WHITE BLOOD COUNT (AUTO) 10.5 K/uL (4.3-11.0)
--- NOTE | 2019-04-04 08:20 | NUR ---
TABATHA SAAVEDRA GAVE REPORT FOR TRANSFER OF LEONARD.
[2019-04-04] MEDS: ACETAMINOPHEN 650 MG/20.3 ML UDC GT SCH ×2 (08:28→21:13)
[2019-04-04] MEDS: LEVETIRACETAM SOL (5 ML) 100 MG/ML UDC GT SCH ×2 (08:28→21:13)
[2019-04-04] MEDS ORDERED: NALOXONE PREFILLED SYRINGE 2 MG/2 ML SYRINGE IV ONE (09:00)
[2019-04-04] MEDS: DOCUSATE SODIUM LIQ 100 MG/10 ML UDC GT SCH ×2 (09:00→17:15)
[2019-04-04] MEDS: ZINC SULFATE 220 MG CAPSULE GT SCH (09:00)
[2019-04-04] MEDS: FERROUS SULFATE UDC 300 MG/5 ML UDC GT SCH (09:00)
[2019-04-04] MEDS ORDERED: MIDAZOLAM HCL 5MG/ML VIAL 25 MG/5 ML VIAL IV ONE (09:00)
[2019-04-04] MEDS: PANTOPRAZOLE 40 MG/PACK PACK GT SCH (09:00)
[2019-04-04] MEDS: ASCORBIC ACID 500 MG TABLET GT SCH (09:00)
[2019-04-04] MEDS: ACIDOPHILUS/BULGARICUS 1 EACH TAB.CHEW GT SCH ×2 (09:00→17:15)
[2019-04-04] MEDS: MULTIVIT W/MINERALS 1 TAB TABLET GT SCH (09:00)
[2019-04-04] MEDS ORDERED: FENTANYL PF 250MCG/5ML AMPUL IV ONE (09:00)
--- NOTE | 2019-04-04 09:20 | NUR ---
RN TRANSFERRED PT TO CT USING ACLS PROTOCOL WITH RT PRESENT.
--- NOTE | 2019-04-04 09:30 | NUR ---
RT RECD PT TRACHD INTACT AND SECURED ON MECH VENT [place] ORDERED SETTINGS ALARMS ON AND AUDIBLE BAG AND MASK AT HOB, TX GIVEN [place] WELL NO ADVERSE REACTION NOTED ATT NO RESP DISTRESS WILL CONT TO MONITOR. PT WENT FOR PROCEDURE IN CT AT 0930
[2019-04-04] MEDS: Z GUARD REMEDY 2 OZ OINT TP SCH ×2 (10:00→21:14)
[2019-04-04] MEDS: HYDROGEN PEROXIDE 480 ML BOTTLE TP SCH ×2 (10:00→21:14)
[2019-04-04] MEDS ORDERED: IV NS 0.9% 500 ML IV ONE (10:14)
[2019-04-04] MEDS ORDERED: IOHEXOL 240MG/ML 50 ML IV ONE (11:07)
[2019-04-04] MEDS ORDERED: LORAZEPAM INJ 2 MG/ML VIAL IV PRN ×2 (14:00)
[2019-04-04 14:03] LABS: ABG OXYGEN SATURATION 98.4 % (92.0-98.5); ABG PCO2 30.4 mmHg (35.0-45.0); ABG PH 7.446 (7.350-7.450); ABG PO2 144.6 mmHg (75.0-100.0); AaDO2 129.9 mmHg; COHb 0.3 % (0.5-1.5); MetHb 0.5 % (0.0-1.5); O2Hb 97.6 % (94.0-97.0); SITE, ABG Left Radial; VENT MODE, BG AC 12 500 40% +5
--- NOTE | 2019-04-04 14:47 | NUR ---
DIRECTOR OF SOCIAL WORK CALLED. PT BECAME TACHYPNEIC. MD'S INFORMED AND GIVEN ORDERS, AND CARRIED OUT ORDERS. ISSUE RESOLVED PT RESTING MORE COMFORTABLY.
[2019-04-04] MEDS ORDERED: GLUCERNA 1.2 1,000 ML BOTTLE GT SCH (16:30)
[2019-04-04] MEDS: IV NS 0.9% 1,000 ML IV PRN (18:00)
[2019-04-04] MEDS ORDERED: FEE PK DOSING 1 MIN EA MC ONE (18:47)
--- NOTE | 2019-04-04 19:00 | NUR ---
RN CLOSING NOTES PT RESTING COMFORTABLY IN BED. REPORT GIVEN TO LABEL FUSER TENDER RN FOR LEONARD. PT O2 SATURATION AT 100%. GILLIAM DRAINING TO GRAVITY AND NEPHROSTOMY TUBE DRAINING TO GRAVITY WELL. PT CARE ENDORSED TO LABEL FUSER TENDER RN FOR LEONARD.
--- NOTE | 2019-04-04 19:30 | NUR ---
RN RISA OPENING NOTES RECEIVED PATIENT RESTING IN BED. NONVERBAL. VENT DEPENDENT WITH ORDERED SETTINGS. IN NO DISTRESS. SR ON TELE MONITOR. NO S/S OF PAIN OR DISCOMFORT. GTUBE FEEDING INTACT AND INFUSING AT 45ML/HR - NO RESIDUAL NOTED. PATIENT ALSO WITH GILLIAM CATH INTACT AND PATENT AND DRAINING CLEAR YELLOW URINE. MIDLINE ON RIGHT UPPER ARM INTACT AND PATENT WITH IVF INFUSING. SKIN DRY AND WARM TO TOUCH. SEIZURE PRECAUTIONS IN PLACE. BED ON LOWEST LOCKED POSITION. WILL CONTINUE TO MONITOR.
[2019-04-04] MEDS: VANCOMYCIN 1 GM in IV D5W 250 ML IV SCH (20:59)
[2019-04-04] MEDS: ATORVASTATIN 10 MG TABLET GT SCH (21:13)
[2019-04-04] MEDS: INSULIN GLARGINE, 100 UNIT/ML CARTRIDGE SQ SCH (21:18)
[2019-04-05] VITALS: BP 111/63
[2019-04-05] MEDS: BLOOD SUGAR DIAGNOSTIC 1 EACH STRIP IN SCH ×5 (00:14→23:07)
[2019-04-05] MEDS: INSULIN ASPART/LISPRO 100 UNIT/ML CARTRIDGE SQ PRN ×4 (00:19→23:11)
[2019-04-05] MEDS: DILTIAZEM HCL 30 MG TABLET GT SCH ×4 (00:21→17:17)
[2019-04-05] MEDS: IPRATROPIUM NEB FS 0.5 MG/2.5 ML AMPUL.NEB IH SCH ×4 (02:05→20:11)
[2019-04-05] MEDS: ALBUTEROL FS 2.5 MG/0.5 ML VIAL.NEB IH SCH ×4 (02:06→20:11)
[2019-04-05 04:00] VITALS: BP 133/67
[2019-04-05] MEDS: PIPERACILLIN /TAZOBACTAM 2.25 G in IV D5W 50 ML IV SCH ×3 (05:23→21:30)
--- NOTE | 2019-04-05 06:18 | NUR ---
RN RISA CLOSING NOTES NO ACUTE CHANGES THROUGHOUT SHIFT. BREATHING EVEN AND UNLABORED. NO SOB. VENT DEPENDENT WITH ORDERED SETTINGS. SR ON TELE MONITOR. NO S/S OF PAIN OR DISCOMFORT. GTUBE FEEDING INTACT AND INFUSING AT 45ML/HR - NO RESIDUAL NOTED. PATIENT ALSO WITH GILLIAM CATH INTACT AND PATENT AND DRAINING YELLOW URINE WITH SOME SEDIMENTS. ACCORDION DRAIN C/D/I - WITH ONLY ABOUT 5ML OUTPUT OF SEROUS FLUID. MIDLINE ON RIGHT UPPER ARM INTACT AND PATENT WITH IVF INFUSING. AFEBRILE. REPOSITIONED Q2H. KEPT CLEAN DRY AND COMFORTABLE. DRESSINGS ON THE SACRAL/BUTTOCKS C/D/I. SEIZURE PRECAUTIONS IN PLACE. BED ON LOWEST LOCKED POSITION. WILL ENDORSE TO ONCOMING NURSE FOR LEONARD.
--- NOTE | 2019-04-05 07:00 | NUR ---
RN NOTES RECEIVED PATIENT ON BED, VENT/ TRACH DEPENDENT, NONVERBAL TOLERATING VENT SETTING WELL, VENT DEPENDENT WITH ORDERED SETTINGS NO DISTRESS NOTED, ON TELE SR HR IN 70'S , SR ON TELE MONITOR. G-TUBE FEEDING INTACT AND INFUSING AT 45ML/HR - NO RESIDUAL NOTED, GILLIAM CATH INTACT AND PATENT AND DRAINING CLEAR YELLOW URINE. MIDLINE ON RIGHT UPPER ARM INTACT AND PATENT WITH IVF INFUSING. SKIN DRY AND WARM TO TOUCH. SEIZURE PRECAUTIONS IN PLACE. SR UP x3, CALL LIGHT WITHIN EASY REACH, BED LOCKED AND IN LOWEST POSITION, CONTINUE TO MONITOR.
[2019-04-05 07:06] LABS: BASOPHILS # (AUTO) 0.1 /CMM (0.0-0.2); BASOPHILS % (AUTO) 0.4 % (0.0-2.0); EOSINOPHILS % (AUTO) 2.1 % (0.0-6.0); HEMATOCRIT 24 % (33-45); HEMOGLOBIN 7.6 g/dL (11.5-14.8); LYMPHOCYTES # (AUTO) 2.1 /CMM (0.8-4.8); MEAN CORPUSCULAR HGB CONC 31 g/dl (31.0-36.0); MEAN CORPUSCULAR VOLUME 86 fL (82-100); MONOCYTES # (AUTO) 0.7 /CMM (0.1-1.30); MONOCYTES % (AUTO) 5.2 % (2.0-12.0); NEUTROPHILS % (AUTO) 77.3 % (43.0-81.0); PLATELET COUNT (AUTO) 421 /CMM (150-450); RED BLOOD CELL COUNT(AUTO) 2.82 MIL/uL (4.0-5.2); WHITE BLOOD COUNT (AUTO) 14.2 K/uL (4.3-11.0)
[2019-04-05 07:28] LABS: CALCIUM, SERUM 8.3 mg/dL (8.5-10.1); CREATININE 3.2 mg/dL (0.6-1.3); MAGNESIUM 2.5 mg/dL (1.8-2.4); POTASSIUM 4.1 mmol/L (3.5-5.1)
[2019-04-05 08:00] VITALS: BP_SYST 107; BP_SYST 118; BP_SYST 150; BP_DIAS 59; BP_DIAS 70; BP_DIAS 76
[2019-04-05] MEDS: DOCUSATE SODIUM LIQ 100 MG/10 ML UDC GT SCH ×2 (08:37→16:48)
[2019-04-05] MEDS: ACIDOPHILUS/BULGARICUS 1 EACH TAB.CHEW GT SCH ×2 (08:38→16:48)
[2019-04-05] MEDS: ACETAMINOPHEN 650 MG/20.3 ML UDC GT SCH ×2 (08:38→21:29)
[2019-04-05] MEDS: LEVETIRACETAM SOL (5 ML) 100 MG/ML UDC GT SCH ×2 (08:38→21:29)
[2019-04-05] MEDS: PANTOPRAZOLE 40 MG/PACK PACK GT SCH (08:38)
[2019-04-05] MEDS: MULTIVIT W/MINERALS 1 TAB TABLET GT SCH (08:38)
[2019-04-05] MEDS: FERROUS SULFATE UDC 300 MG/5 ML UDC GT SCH (08:38)
[2019-04-05] MEDS: ASCORBIC ACID 500 MG TABLET GT SCH (08:38)
[2019-04-05] MEDS: ZINC SULFATE 220 MG CAPSULE GT SCH (08:38)
[2019-04-05] MEDS: HYDROGEL DRESSING 90 GM TUBE TP PRN (08:40)
[2019-04-05] MEDS: Z GUARD REMEDY 2 OZ OINT TP SCH ×2 (08:41→21:32)
[2019-04-05] MEDS: HYDROGEN PEROXIDE 480 ML BOTTLE TP SCH ×2 (08:42→21:32)
[2019-04-05] MEDS: IV NS 0.9% 1,000 ML IV PRN (10:39)
--- NOTE | 2019-04-05 11:43 | NUR ---
RT NOTE RECEIVED PT MECHANICALLY VENTILATED VIA CUFFED TRACHEOSTOMY TUBE. CUFF INFLATED. TRACH TUBE MIDLINE AND SECURE. VENTILATOR SETTINGS PRESCRIBED. ALARMS SET PER PROTOCOL AND AUDIBLE. VENT PLUGGED IN TO RED OUTLET. AMBU BAG AT BED SIDE. NO DISTRESS NOTED. Addendum: 04/05/19 at 1143 by PALLAVI BARRETT RT Amended: Links added.
[2019-04-05 12:00] VITALS: BP 122/64
[2019-04-05] MEDS ORDERED: EPOETIN ALFA (20,000 UNIT) 20,000 UNIT/ML VIAL SQ ONE (12:00)
--- NOTE | 2019-04-05 12:00 | NUR ---
RN NOTES TRACH CARE DONE, VSS STABLE, CONTINUE TO MONITOR .
[2019-04-05 12:29] LABS: IRON, SERUM 11 ug/dl (50-175); TOTAL IRON BINDING CAPACITY 125 ug/dl (250-450)
[2019-04-05 16:00] VITALS: BP 110/68
[2019-04-05] MEDS: GLUCERNA 1.2 1,000 ML BOTTLE GT SCH (16:50)
--- NOTE | 2019-04-05 18:00 | NUR ---
RN NOTES NO SIGNIFICANT CHANGES NOTED ON THIS SHIFT, O2 SAT WNL , NS AT 70CC/ HR RUNNING VIA R UPPER ARM MIDLINE, WILL ENDORSE TO COOK HELPER JUICE NURSE FOR CONTINUITY OF CARE.
[2019-04-05] MEDS: SOD FERRIC GLUC 125 MG in IV NS 0.9% 100 ML IV SCH (18:27)
--- NOTE | 2019-04-05 19:05 | NUR ---
[facility] RN OPENING NOTES RECEIVED PATIENT RESTING IN BED, OBTUNDED, ABLE TO OPEN EYES. ON TELE MONITOR SR WITH HR 70'S. ON MECHANICAL VENT TRACH SETTINGS ORDERED, TOLERATING WELL, SATURATING 100% AT THE MOMENT. NO SOB OR RESPIRATORY DISTRESS NOTED. IV SITES REBECA MIDLINE, FLUSHING AND PATENT, ONGOING NORMAL SALINE RUNNING AT 70ML/HR, NO INFILTRATION NOTED. ON GT FEEDING AT 45 ML/HR, FLUSHING AND PATENT, MINIMAL RESIDUAL NOTED. NEPHROSTOMY AND GILLIAM INTACT AND BOTH DRAINING WELL. SAFETY MEASURES IN PLACE; BED LOCKED AND IN LOWEST POSITION, CALL LIGHT WITHIN REACH, SIDE RAILS UP X2, HOB ELEVATED. WILL CONTINUE TO MONITOR PT CLOSELY.
[2019-04-05 20:00] VITALS: BP 110/58
[2019-04-05] MEDS: ATORVASTATIN 10 MG TABLET GT SCH (21:28)
[2019-04-05] MEDS: INSULIN GLARGINE, 100 UNIT/ML CARTRIDGE SQ SCH (23:11)
[2019-04-06] VITALS: BP 109/58
[2019-04-06] MEDS: DILTIAZEM HCL 30 MG TABLET GT SCH ×4 (00:21→17:19)
[2019-04-06] MEDS: ALBUTEROL FS 2.5 MG/0.5 ML VIAL.NEB IH SCH ×4 (01:27→18:58)
[2019-04-06] MEDS: IPRATROPIUM NEB FS 0.5 MG/2.5 ML AMPUL.NEB IH SCH ×4 (01:27→18:58)
[2019-04-06] MEDS: IV NS 0.9% 1,000 ML IV PRN (03:53)
[2019-04-06 04:00] VITALS: BP 111/59
[2019-04-06] MEDS: PIPERACILLIN /TAZOBACTAM 2.25 G in IV D5W 50 ML IV SCH ×2 (05:32→13:17)
[2019-04-06] MEDS: BLOOD SUGAR DIAGNOSTIC 1 EACH STRIP IN SCH ×3 (06:26→17:26)
--- NOTE | 2019-04-06 06:55 | NUR ---
[facility] RN CLOSING NOTES PATIENT RESTING IN BED. NO SIGNIFICANT CHANGES NOTED ON THIS SHIFT. ONGOING NS AT 70ML/HR RUNNING VIA R UPPER ARM MIDLINE, NO INFILTRATION NOTED. GTUBE FEEDING STOPPED AT 12AM AND RESTARTED AT 0400. WOUND TX DONE ORDERED. REPOSITIONED PER PROTOCOL. WILL ENDORSE TO AM RN FOR LEONARD.
--- NOTE | 2019-04-06 07:10 | NUR ---
RN INITIAL NOTE PATIENT IN BED, AWAKE OPENS EYES ONLY. ON VENT, SATING WELL AT 100%. ON TELE MONITOR, SR. HAS A NEPHROSTOMY AND GILILAM CATH. PATIENT IS S/P CYSTOSCOPY WITH ATTEMPTED JJ STENT (UNSUCCESSFUL), S/P NEPHROSTOMY ON 04/04. ON GLUCERNA AT 45 ML/HR X20H. WILL RESTART AT 1200 MIDNIGHT. HAS A RIGHT UA MIDLINE WITH NS AT 70 ML/HR. BED LOCKED AND IN LOWEST POSITION. WILL CONTINUE TO MONITOR CLOSELY
[2019-04-06 07:42] LABS: CALCIUM, SERUM 8.4 mg/dL (8.5-10.1); CREATININE 2.6 mg/dL (0.6-1.3); MAGNESIUM 2.4 mg/dL (1.8-2.4); PHOSPHORUS 3.8 mg/dL (2.5-4.9); POTASSIUM 4.1 mmol/L (3.5-5.1)
[2019-04-06 08:00] VITALS: BP 139/73
[2019-04-06] MEDS: VANCOMYCIN 1 GM in IV D5W 250 ML IV SCH (08:07)
[2019-04-06] MEDS: MULTIVIT W/MINERALS 1 TAB TABLET GT SCH (08:10)
[2019-04-06] MEDS: ACETAMINOPHEN 650 MG/20.3 ML UDC GT SCH ×2 (08:10→21:30)
[2019-04-06] MEDS: PANTOPRAZOLE 40 MG/PACK PACK GT SCH (08:10)
[2019-04-06] MEDS: ASCORBIC ACID 500 MG TABLET GT SCH (08:10)
[2019-04-06] MEDS: DOCUSATE SODIUM LIQ 100 MG/10 ML UDC GT SCH ×2 (08:10→17:19)
[2019-04-06] MEDS: ACIDOPHILUS/BULGARICUS 1 EACH TAB.CHEW GT SCH ×2 (08:10→17:19)
[2019-04-06] MEDS: LEVETIRACETAM SOL (5 ML) 100 MG/ML UDC GT SCH ×2 (08:10→21:30)
[2019-04-06] MEDS: ZINC SULFATE 220 MG CAPSULE GT SCH (08:10)
[2019-04-06] MEDS: FERROUS SULFATE UDC 300 MG/5 ML UDC GT SCH (08:10)
[2019-04-06] MEDS: HYDROGEN PEROXIDE 480 ML BOTTLE TP SCH ×2 (08:12→18:58)
[2019-04-06] MEDS: Z GUARD REMEDY 2 OZ OINT TP SCH ×2 (08:12→21:29)
[2019-04-06 10:14] LABS: BASOPHILS # (AUTO) 0.1 /CMM (0.0-0.2); BASOPHILS % (AUTO) 0.5 % (0.0-2.0); EOSINOPHILS % (AUTO) 2.2 % (0.0-6.0); HEMATOCRIT 22 % (33-45); LYMPHOCYTES # (AUTO) 2.3 /CMM (0.8-4.8); LYMPHOCYTES % (AUTO) 16.7 % (20.0-44.0); MEAN CORPUSCULAR HGB CONC 31 g/dl (31.0-36.0); MEAN CORPUSCULAR VOLUME 86 fL (82-100); MONOCYTES # (AUTO) 0.9 /CMM (0.1-1.30); MONOCYTES % (AUTO) 6.4 % (2.0-12.0); NEUTROPHILS # (AUTO) 10.1 /CMM (1.8-8.9); NEUTROPHILS % (AUTO) 74.2 % (43.0-81.0); PLATELET COUNT (AUTO) 437 /CMM (150-450); RED BLOOD CELL COUNT(AUTO) 2.53 MIL/uL (4.0-5.2); WHITE BLOOD COUNT (AUTO) 13.6 K/uL (4.3-11.0)
[2019-04-06 10:38] LABS: HEMOGLOBIN 6.7 g/dL (11.5-14.8)
[2019-04-06] MEDS: INSULIN ASPART/LISPRO 100 UNIT/ML CARTRIDGE SQ PRN ×3 (11:54→21:37)
[2019-04-06 12:00] VITALS: BP 146/79
--- NOTE | 2019-04-06 12:58 | NUR ---
RN NOTE PATIENT WAS NOT GIVEN BLOOD TRANSFUSION ON 04/03. DAUGHTER REFUSED TO SIGN CONSENT AND ASKED FOR A REPEAT HGB CHECK. PER DR AGUSTIN, IF HGB IS STILL <7 AFTER THE RECHECK, TRANSFUSE 1 UNIT OF PRBC
--- NOTE | 2019-04-06 13:03 | NUR ---
RN NOTE MADE DR CORINNE AGUSTIN AWARE THAT PATIENT'S NA LEVEL HAS BEEN INCREASING FOR THE PAST FEW DAYS. PATIENT IS ON IVF NS. NNO
[2019-04-06 13:34] LABS: OCCULT BLOOD STOOL NEGATIVE (NEGATIVE)
[2019-04-06 14:22] LABS: BAND % (MANUAL) 2 % (0.0-5.0); EOSINOPHILS % (MANUAL) 1 % (0-4); LYMPHOCYTES % (MANUAL) 21 % (16-48); MONOCYTES % (MANUAL) 8 % (0-11.0); NEUTROPHILS % (MANUAL) 68 (42-76)
[2019-04-06 14:41] LABS: HEMOGLOBIN 6.1 g/dL (11.5-14.8)
--- NOTE | 2019-04-06 14:51 | NUR ---
RN NOTE DAUGHTER OF THE PATIENT REFUSES THE BLOOD TRANSFUSION, EVEN WITH THE REPEAT HGB/HCT DRAW. DAUGHTER STILL REFUSED REQUESTED TO TALK TO MD. WAS GIVEN DR AGUSTIN'S OFFICE NUMBER PAGED [employer] AND LEFT A MESSAGE FOR DR AGUSTIN REGARDING THE DAUGHTER'S REFUSAL
[2019-04-06] MEDS: SOD FERRIC GLUC 125 MG in IV NS 0.9% 100 ML IV SCH (14:59)
[2019-04-06 16:00] VITALS: BP 147/71
[2019-04-06] MEDS: GLUCERNA 1.2 1,000 ML BOTTLE GT SCH (17:34)
[2019-04-06] MEDS: IV D5W 1,000 ML IV PRN (18:51)
--- NOTE | 2019-04-06 19:12 | NUR ---
RN CLOSING NOTES PATIENT IS IN BED WITH HOB ELEVATED. PT ON VENT AND TOLERATED WELL. PT IS ON GTF AND TOLERATED WELL. GTF IS KEPT PATENT. ALL DUE MEDS GIVEN AND TOLERATED WELL. PT IS OBTUNDED. VITAL SIGNS ARE WITHIN NORMAL LIMITS. ALL NEEDS ATTENDED. WILL GIVE REPORT TO PM NURSE.
[2019-04-06 20:00] VITALS: BP 152/74
[2019-04-06] MEDS: ATORVASTATIN 10 MG TABLET GT SCH (21:30)
[2019-04-06] MEDS: INSULIN GLARGINE, 100 UNIT/ML CARTRIDGE SQ SCH (21:35)
[2019-04-06] MEDS ORDERED: CEFEPIME 1 GM in IV D5W 50 ML IV SCH (22:00)
[2019-04-06] MEDS ORDERED: CEFEPIME 1 GM VIAL ONE (22:04)
[2019-04-07] VITALS: BP_SYST 114; BP_SYST 152; BP_DIAS 64; BP_DIAS 74
[2019-04-07] MEDS: BLOOD SUGAR DIAGNOSTIC 1 EACH STRIP IN SCH ×4 (00:20→16:56)
[2019-04-07] MEDS: INSULIN ASPART/LISPRO 100 UNIT/ML CARTRIDGE SQ PRN ×4 (00:22→23:03)
[2019-04-07] MEDS: DILTIAZEM HCL 30 MG TABLET GT SCH ×4 (00:23→17:02)
[2019-04-07] MEDS: IPRATROPIUM NEB FS 0.5 MG/2.5 ML AMPUL.NEB IH SCH ×4 (00:42→19:50)
[2019-04-07] MEDS: ALBUTEROL FS 2.5 MG/0.5 ML VIAL.NEB IH SCH ×4 (00:42→19:50)
[2019-04-07 04:00] VITALS: BP 155/76
--- NOTE | 2019-04-07 05:46 | NUR ---
PATIENT RECEIVED ON VENT SUPPORT WITH PORTEX #9 TRACH TUBE WITH SETTINGS OF AC 12, 500 VT, 40%, +5. SUCTIONED FOR MINIMAL, THIN, WHITE SECRETIONS. GIVEN IN-LINE TREATMENTS WITH NO ADVERSE REACTIONS. AMBU BAG AT BEDSIDE. VENT AND PULSE OXIMETER ALARMS AUDIBLE AND VISIBLE. VENT PLUGGED INTO RED OUTLET. TRACH CARE DONE. Addendum: 04/07/19 at 0548 by KAISER LAW RT Amended: Links added.
[2019-04-07 07:20] LABS: BASOPHILS # (AUTO) 0.1 /CMM (0.0-0.2); BASOPHILS % (AUTO) 0.5 % (0.0-2.0); EOSINOPHILS % (AUTO) 3.2 % (0.0-6.0); HEMATOCRIT 25 % (33-45); HEMOGLOBIN 7.6 g/dL (11.5-14.8); LYMPHOCYTES # (AUTO) 2.1 /CMM (0.8-4.8); LYMPHOCYTES % (AUTO) 20.2 % (20.0-44.0); MEAN CORPUSCULAR HGB CONC 31 g/dl (31.0-36.0); MEAN CORPUSCULAR VOLUME 87 fL (82-100); MONOCYTES # (AUTO) 0.7 /CMM (0.1-1.30); NEUTROPHILS # (AUTO) 7.1 /CMM (1.8-8.9); NEUTROPHILS % (AUTO) 69.1 % (43.0-81.0); PLATELET COUNT (AUTO) 496 /CMM (150-450); RED BLOOD CELL COUNT(AUTO) 2.85 MIL/uL (4.0-5.2); WHITE BLOOD COUNT (AUTO) 10.3 K/uL (4.3-11.0)
--- NOTE | 2019-04-07 07:20 | NUR ---
RN CLOSING NOTES PATIENT IS IN BED WITH HOB ELEVATED. PT ON VENT TOLERATED SETTINGS WELL. PT IS ON GTF AND TOLERATED WELL. GT KEPT PATENT. ALL MEDS GIVEN AND TOLERATED WELL. PT IS OBTUNDED. VITAL SIGNS ARE WITHIN NORMAL LIMITS. ALL NEEDS ATTENDED. WILL GIVE REPORT TO AM NURSE FOR LOCK PLATER.
--- NOTE | 2019-04-07 07:30 | NUR ---
RN NOTES Received patient, awake, with spontaneous eye opening, unable to track. Not on any form of distress, tolerating vent setting as ordered. Sating fine. No indication of pain noted at this time. Sinus tachy on the monitor with hr on the 110. Gt in place, no gastric residual taken at this time, feeding of glucerna running at 45cc/hr. REBECA midline in place and intact with ongoing Dw@50cc/hr. IV access site with no s/s infection or infiltration noted. HOB elevated. Safety measures observed and maintained. Bed in low and locked positioned. Call light placed within reach. will continue to monitor patient accordingly Addendum: 04/07/19 at 0749 by TRACIE BOWMAN RN Left nephrostomy tube and gaines catheter in place, draining via gravity to clear yellow urine.
[2019-04-07 07:51] LABS: CALCIUM, SERUM 8.3 mg/dL (8.5-10.1); CREATININE 2.3 mg/dL (0.6-1.3); MAGNESIUM 2.2 mg/dL (1.8-2.4); PHOSPHORUS 3.4 mg/dL (2.5-4.9); POTASSIUM 4.2 mmol/L (3.5-5.1)
[2019-04-07 07:54] LABS: BAND % (MANUAL) 2 % (0.0-5.0); EOSINOPHILS % (MANUAL) 5 % (0-4); LYMPHOCYTES % (MANUAL) 21 % (16-48); MONOCYTES % (MANUAL) 4 % (0-11.0); MYELOCYTES % 2 % (0-0); NEUTROPHILS % (MANUAL) 66 (42-76)
[2019-04-07 08:00] VITALS: BP_SYST 109; BP_SYST 135; BP_DIAS 51; BP_DIAS 75
[2019-04-07 08:12] LABS: IRON, SERUM 43 ug/dl (50-175); TOTAL IRON BINDING CAPACITY 119 ug/dl (250-450)
[2019-04-07] MEDS: FERROUS SULFATE UDC 300 MG/5 ML UDC GT SCH (09:16)
[2019-04-07] MEDS: DOCUSATE SODIUM LIQ 100 MG/10 ML UDC GT SCH ×2 (09:16→16:55)
[2019-04-07] MEDS: LEVETIRACETAM SOL (5 ML) 100 MG/ML UDC GT SCH ×2 (09:16→21:11)
[2019-04-07] MEDS: ACETAMINOPHEN 650 MG/20.3 ML UDC GT SCH ×2 (09:16→21:11)
[2019-04-07] MEDS: ACIDOPHILUS/BULGARICUS 1 EACH TAB.CHEW GT SCH ×2 (09:16→16:55)
[2019-04-07] MEDS: PANTOPRAZOLE 40 MG/PACK PACK GT SCH (09:17)
[2019-04-07] MEDS: ASCORBIC ACID 500 MG TABLET GT SCH (09:17)
[2019-04-07] MEDS: ZINC SULFATE 220 MG CAPSULE GT SCH (09:17)
[2019-04-07] MEDS: MULTIVIT W/MINERALS 1 TAB TABLET GT SCH (09:17)
[2019-04-07] MEDS: HYDROGEN PEROXIDE 480 ML BOTTLE TP SCH ×2 (09:17→21:13)
[2019-04-07] MEDS: Z GUARD REMEDY 2 OZ OINT TP SCH ×2 (09:18→21:14)
[2019-04-07 12:00] VITALS: BP_SYST 137; BP_DIAS 68; BP_DIAS 72
[2019-04-07] MEDS: SOD FERRIC GLUC 125 MG in IV NS 0.9% 100 ML IV SCH (13:28)
[2019-04-07 16:00] VITALS: BP 137/68
--- NOTE | 2019-04-07 19:19 | NUR ---
RN NOTES Endorsed for continuity of care. Not on respiratory distress. no indication of pain noted. gaines catheter and nephrostomy tube in place. Feeding infusing at desired rate. Head of bed elevated. safety measures in place. call light within reach. Will continue to monitor patient accordingly
[2019-04-07 20:00] VITALS: BP 129/75
[2019-04-07] MEDS: VANCOMYCIN 1 GM in IV D5W 250 ML IV SCH (21:10)
[2019-04-07] MEDS: ATORVASTATIN 10 MG TABLET GT SCH (21:11)
[2019-04-07] MEDS: CEFEPIME 2 GM in IV D5W 100 ML IV SCH (21:11)
[2019-04-07] MEDS: IV D5W 1,000 ML IV PRN (21:21)
[2019-04-07] MEDS: INSULIN GLARGINE, 100 UNIT/ML CARTRIDGE SQ SCH (23:02)
[2019-04-08] VITALS (7 sets, daily range): BP systolic 114–175; BP diastolic 64–80
[2019-04-08] MEDS: BLOOD SUGAR DIAGNOSTIC 1 EACH STRIP IN SCH ×5 (00:23→23:24)
[2019-04-08] MEDS: INSULIN ASPART/LISPRO 100 UNIT/ML CARTRIDGE SQ PRN ×3 (00:27→23:28)
[2019-04-08] MEDS: DILTIAZEM HCL 30 MG TABLET GT SCH ×4 (00:29→17:01)
[2019-04-08] MEDS: ALBUTEROL FS 2.5 MG/0.5 ML VIAL.NEB IH SCH ×4 (00:42→19:32)
[2019-04-08] MEDS: IPRATROPIUM NEB FS 0.5 MG/2.5 ML AMPUL.NEB IH SCH ×4 (00:42→19:32)
--- NOTE | 2019-04-08 07:00 | NUR ---
RN NOTES RECEIVED PT ON BED , VENT/TRACH DEPENDENT, OBTUNDED , TOLERATING CURRENT VENT SETTING WELL, ON TELE SR HR IN 70'S , GILLIAM AND NEPHROSTOMY TUBE ARE INTACT AND DRAINING TO GRAVITY, TOLERATING TF AT 45 CC /HR WELL, NO RESIDUAL NOTED, D5W AT 75CC/HR RUNNING VIA R UPPER ARM MIDLINE , SITE CLEAN, DRY AND INTACT , SR UP x3, CALL LIGHT WITHIN EASY REACH, CONTINUE TO MONITOR .
[2019-04-08] MEDS: GLUCERNA 1.2 1,000 ML BOTTLE GT SCH (07:13)
[2019-04-08 07:24] LABS: BASOPHILS % (AUTO) 0.4 % (0.0-2.0); EOSINOPHILS % (AUTO) 3.7 % (0.0-6.0); HEMATOCRIT 21 % (33-45); LYMPHOCYTES # (AUTO) 1.8 /CMM (0.8-4.8); MEAN CORPUSCULAR HGB CONC 31 g/dl (31.0-36.0); MEAN CORPUSCULAR VOLUME 86 fL (82-100); MONOCYTES # (AUTO) 0.7 /CMM (0.1-1.30); MONOCYTES % (AUTO) 7.3 % (2.0-12.0); NEUTROPHILS # (AUTO) 6.2 /CMM (1.8-8.9); NEUTROPHILS % (AUTO) 68.6 % (43.0-81.0); PLATELET COUNT (AUTO) 566 /CMM (150-450); RED BLOOD CELL COUNT(AUTO) 2.48 MIL/uL (4.0-5.2); WHITE BLOOD COUNT (AUTO) 9.1 K/uL (4.3-11.0)
[2019-04-08 07:36] LABS: CALCIUM, SERUM 8.3 mg/dL (8.5-10.1); CREATININE 1.8 mg/dL (0.6-1.3); HEMOGLOBIN 6.6 g/dL (11.5-14.8); PHOSPHORUS 3.5 mg/dL (2.5-4.9); POTASSIUM 3.6 mmol/L (3.5-5.1)
[2019-04-08 08:19] LABS: BAND % (MANUAL) 2 % (0.0-5.0); EOSINOPHILS % (MANUAL) 3 % (0-4); LYMPHOCYTES % (MANUAL) 20 % (16-48); MONOCYTES % (MANUAL) 8 % (0-11.0); NEUTROPHILS % (MANUAL) 67 (42-76)
[2019-04-08] MEDS: FERROUS SULFATE UDC 300 MG/5 ML UDC GT SCH (08:23)
[2019-04-08] MEDS: ACETAMINOPHEN 650 MG/20.3 ML UDC GT SCH ×2 (08:23→20:58)
[2019-04-08] MEDS: LEVETIRACETAM SOL (5 ML) 100 MG/ML UDC GT SCH ×2 (08:23→20:58)
[2019-04-08] MEDS: MULTIVIT W/MINERALS 1 TAB TABLET GT SCH (08:24)
[2019-04-08] MEDS: ASCORBIC ACID 500 MG TABLET GT SCH (08:24)
[2019-04-08] MEDS: ZINC SULFATE 220 MG CAPSULE GT SCH (08:24)
[2019-04-08] MEDS: ACIDOPHILUS/BULGARICUS 1 EACH TAB.CHEW GT SCH ×2 (08:24→17:01)
[2019-04-08] MEDS: PANTOPRAZOLE 40 MG/PACK PACK GT SCH (08:24)
[2019-04-08] MEDS: DOCUSATE SODIUM LIQ 100 MG/10 ML UDC GT SCH ×2 (08:24→17:01)
[2019-04-08] MEDS: HYDROGEL DRESSING 90 GM TUBE TP PRN (08:25)
[2019-04-08] MEDS: HYDROGEN PEROXIDE 480 ML BOTTLE TP SCH ×2 (08:26→21:02)
[2019-04-08] MEDS: Z GUARD REMEDY 2 OZ OINT TP SCH ×2 (08:27→21:01)
--- NOTE | 2019-04-08 10:00 | NUR ---
RN NOTES DR PAULSON NOTIFED REGRADING H/H 6.10/05 . VSS STABLE , CONTINUE TO MONITOR .
--- NOTE | 2019-04-08 12:00 | NUR ---
RN NOTES TRACH CARE DONE, CONTINUE TO MONITOR.
[2019-04-08] MEDS: SOD FERRIC GLUC 125 MG in IV NS 0.9% 100 ML IV SCH (13:57)
[2019-04-08] MEDS: IV D5W 1,000 ML IV PRN (14:01)
[2019-04-08] MEDS ORDERED: EPOETIN ALFA (20,000 UNIT) 20,000 UNIT/ML VIAL SQ ONE (16:00)
--- NOTE | 2019-04-08 18:00 | NUR ---
RN NOTES PT TOLERATING TF WELL, VSS STABLE,D5W AT 125CC/HR RUNNING VIA R UPPER ARM MIDLINE, NO SIGNIFICANT CHANGES NOTED ON THIS SHIFT, WILL ENDORSE TO PROCESS COORDINATOR NURSE FOR CONTINUITY OF CARE .
--- NOTE | 2019-04-08 20:30 | NUR ---
PT RECEIVE STABLE ON MV, SETTINGS ARE AC 12 500 +5 40% FIO2, TRACH PATENT AND SECURED, VENT PLUG IN RED OUTLET, AMBU BAG IS AT BEDSIDE, WILL CONTINUE TO MONITOR Addendum: 04/08/19 at 2030 by BEN FOOTE RT Amended: Links added.
[2019-04-08] MEDS: CEFEPIME 2 GM in IV D5W 100 ML IV SCH (20:58)
[2019-04-08] MEDS: ATORVASTATIN 10 MG TABLET GT SCH (20:58)
--- NOTE | 2019-04-08 22:20 | NUR ---
RECEIVED REPORT FROM TABATHA PALACIOS FOR LEONARD. PER REPORT, PATIENT'S SBP 170'S AT 1999, PRN BP MEDICATION GIVEN BY SAID NURSE. RECHECKED PT BP NOW 152/73 TAKEN ON THE LEFT LEG. WILL CONT TO MONITOR PT CLOSELY.
--- NOTE | 2019-04-08 22:22 | NUR ---
[facility] RN INITIAL NOTES RECEIVED PATIENT RESTING IN BED, OBTUNDED, ABLE TO OPEN EYES. ON TELE MONITOR SR WITH HR 70'S. ON MECHANICAL VENT TRACH SETTINGS ORDERED, TOLERATING WELL, SATURATING 100% AT THE MOMENT. NO SOB OR RESPIRATORY DISTRESS NOTED. IV SITES REBECA MIDLINE, FLUSHING AND PATENT, ONGOING D5W RUNNING AT 125ML/HR, NO INFILTRATION NOTED. ON GT FEEDING AT 45 ML/HR, FLUSHING AND PATENT, MINIMAL RESIDUAL NOTED. NEPHROSTOMY AND GILLIAM INTACT AND BOTH DRAINING WELL. SAFETY MEASURES IN PLACE; BED LOCKED AND IN LOWEST POSITION, CALL LIGHT WITHIN REACH, SIDE RAILS UP X2, HOB ELEVATED. WILL CONTINUE TO MONITOR PT CLOSELY.
--- NOTE | 2019-04-08 22:27 | NUR ---
[facility] RN NOTE REPORT GIVEN TO NURSE BUCK FOR CONTINUE TO CARE.
[2019-04-08] MEDS: INSULIN GLARGINE, 100 UNIT/ML CARTRIDGE SQ SCH (23:23)
[2019-04-09] VITALS: BP 150/74
[2019-04-09] MEDS: DILTIAZEM HCL 30 MG TABLET GT SCH ×4 (00:28→17:26)
[2019-04-09] MEDS: IV D5W 1,000 ML IV PRN ×2 (01:04→23:36)
[2019-04-09] MEDS: ALBUTEROL FS 2.5 MG/0.5 ML VIAL.NEB IH SCH ×4 (01:34→19:44)
[2019-04-09] MEDS: IPRATROPIUM NEB FS 0.5 MG/2.5 ML AMPUL.NEB IH SCH ×4 (01:34→19:44)
[2019-04-09 04:00] VITALS: BP_SYST 108; BP_SYST 121; BP_DIAS 67; BP_DIAS 93
[2019-04-09] MEDS: BLOOD SUGAR DIAGNOSTIC 1 EACH STRIP IN SCH ×3 (06:22→17:23)
[2019-04-09 06:36] LABS: BASOPHILS % (AUTO) 0.4 % (0.0-2.0); EOSINOPHILS % (AUTO) 3.6 % (0.0-6.0); HEMATOCRIT 26 % (33-45); HEMOGLOBIN 8.2 g/dL (11.5-14.8); LYMPHOCYTES # (AUTO) 1.9 /CMM (0.8-4.8); LYMPHOCYTES % (AUTO) 20.5 % (20.0-44.0); MEAN CORPUSCULAR HGB CONC 31 g/dl (31.0-36.0); MEAN CORPUSCULAR VOLUME 88 fL (82-100); MONOCYTES # (AUTO) 0.6 /CMM (0.1-1.30); MONOCYTES % (AUTO) 6.1 % (2.0-12.0); NEUTROPHILS # (AUTO) 6.5 /CMM (1.8-8.9); NEUTROPHILS % (AUTO) 69.4 % (43.0-81.0); PLATELET COUNT (AUTO) 595 /CMM (150-450); WHITE BLOOD COUNT (AUTO) 9.3 K/uL (4.3-11.0)
[2019-04-09 07:00] LABS: CALCIUM, SERUM 8.3 mg/dL (8.5-10.1); CREATININE 1.5 mg/dL (0.6-1.3); MAGNESIUM 1.8 mg/dL (1.8-2.4); PHOSPHORUS 3.1 mg/dL (2.5-4.9); POTASSIUM 3.8 mmol/L (3.5-5.1)
--- NOTE | 2019-04-09 07:25 | NUR ---
[facility] RN CLOSING NOTES PATIENT RESTING IN BED. NO SIGNIFICANT CHANGES NOTED ON THIS SHIFT. GTUBE FEEDING STOPPED AT 12AM AND RESTARTED AT 0400. WOUND TX DONE ORDERED. REPOSITIONED PER PROTOCOL. ENDORSED TO AM RN FOR LEONARD. MIDLINE PENDING, RN ANTE PARTUM AND AM/PM CHARGE AWARE. ENDORSED TO AM RN FOR LEONARD.
--- NOTE | 2019-04-09 07:51 | NUR ---
[facility] RN NOTE RECEIVED PATIENT IN BED , AWAKE ,OBTUNDED , WITH TRACH TO VENT SETTING ORDERED, ON TELE MONITOR SR HR 66 , WITH LT NEPHROSTOMY IN PLACE ,NO URINE NOTED WITH GILLIAM CATH TO GRAVITY WITH YELLOW COLOR URINE , , WITH G TUBE FEEDING ORDERED, KEEP HOB ELEVATED AT ALL TIME , NO RESIDUAL NOTED , BED IN LOWEST AND LOCKED POSITION , CALL LIGHT WITHIN REACH , WILL MONITOR
[2019-04-09 08:00] VITALS: BP 140/66
[2019-04-09] MEDS: ACIDOPHILUS/BULGARICUS 1 EACH TAB.CHEW GT SCH ×2 (08:31→16:15)
[2019-04-09] MEDS: MULTIVIT W/MINERALS 1 TAB TABLET GT SCH (08:31)
[2019-04-09] MEDS: ACETAMINOPHEN 650 MG/20.3 ML UDC GT SCH ×2 (08:31→21:27)
[2019-04-09] MEDS: DOCUSATE SODIUM LIQ 100 MG/10 ML UDC GT SCH ×2 (08:31→16:15)
[2019-04-09] MEDS: ZINC SULFATE 220 MG CAPSULE GT SCH (08:31)
[2019-04-09] MEDS: LEVETIRACETAM SOL (5 ML) 100 MG/ML UDC GT SCH ×2 (08:31→21:27)
[2019-04-09] MEDS: FERROUS SULFATE UDC 300 MG/5 ML UDC GT SCH (08:31)
[2019-04-09] MEDS: PANTOPRAZOLE 40 MG/PACK PACK GT SCH (08:31)
[2019-04-09] MEDS: ASCORBIC ACID 500 MG TABLET GT SCH (08:32)
[2019-04-09] MEDS: Z GUARD REMEDY 2 OZ OINT TP SCH ×2 (08:33→21:29)
[2019-04-09] MEDS: HYDROGEN PEROXIDE 480 ML BOTTLE TP SCH ×3 (08:45→21:29)
--- NOTE | 2019-04-09 08:51 | NUR ---
DIGITAL ACCOUNT MANAGER NOTE NO IV LINE AVAILABLE, UNABLE TO ADMINISTERED VANCO PHARMACIST AWARE, DR PAULSON NOTIFIED WILL INSERT MID LINE ,WILL F\U
[2019-04-09] MEDS: GLUCERNA 1.2 1,000 ML BOTTLE GT SCH (10:39)
--- NOTE | 2019-04-09 11:09 | NUR ---
RECREATION PROGRAMMER NOTE TURN REPOSITION ALL NEEDS ATTENDED
[2019-04-09] MEDS: INSULIN ASPART/LISPRO 100 UNIT/ML CARTRIDGE SQ PRN ×2 (11:22→17:12)
[2019-04-09] MEDS ORDERED: GLUCERNA 1.2 1,000 ML BOTTLE GT SCH (11:30)
--- NOTE | 2019-04-09 13:00 | NUR ---
[facility] RN NOTE LISA MAYS DATA MODELING ARCHITECT FROM PICC LINE AT BEDSIDE ,NEW MID LINE INSERTED ORDERED ,STARTED IVF AND IV ATB
[2019-04-09] MEDS: VANCOMYCIN 1 GM in IV D5W 250 ML IV SCH (13:06)
[2019-04-09 13:12] VITALS: BP 128/75
[2019-04-09] MEDS: SOD FERRIC GLUC 125 MG in IV NS 0.9% 100 ML IV SCH (14:47)
[2019-04-09 16:18] VITALS: BP 148/79
--- NOTE | 2019-04-09 16:30 | NUR ---
FRONT END WEB DEVELOPER NOTE CONT ON IVF ORDERED ,ALL NEEDS ATTENDED TRACH AND MOUTH CARE DONE , ONT ON G TUBE FEEDING ,WILL CONT TO MONITOR
--- NOTE | 2019-04-09 18:35 | NUR ---
SUPERVISOR SPECIAL SERVICES NOTE WITH G TUBE FEEDING ORDERED ,NO RESIDUAL NOTED , ON IVF ORDERED VIA MID LINE , KEEP HOB ELEVATED AT ALL TIME, TRACH CARE DONE , WILL CONT TO MONITOR, TURN REPOSITION Q2 HOUR
--- NOTE | 2019-04-09 19:34 | NUR ---
BISQUE TILE BURNER NOTE PATIENT RECEIVED IN BED AWAKE AND NON VERBAL. PATIENT UNABLE TO FOLLOW INSTRUCTIONS. PATIENT APPEARS IN NO APPARENT DISTRESS. PATIENT TOLERATING VENT SETTINGS WELL. PATIENT SUCTIONED, SMALL AMOUNT OF THIN WHITISH MUCOUS NOTED. PATIENT HR SR ON THE MONITOR HR IN THE 80'S. PATIENT ON GTUBE FEEDING QAT 45 ML/HR TOLERATING WELL MINIMAL RESIDUAL NOTED. NEPHROSTOMY AND GILLIAM CATH DRAINING TO GRAVITY CLEAR LIGHT YELLOW URINE. PATIENT GIVEN ORAL CARE AND REPOSITIONED. PATIENT IV PATENT AND INTACT NO S/S OF INFILTRATION OR INFECTION. RN WILL CONTINUE TO MONITOR FOR CHANGES. SAFETY/ ASPIRATION PRECAUTIONS IN PLACE, SIDE RAILS UP X 2/
[2019-04-09 20:00] VITALS: BP 132/71
--- NOTE | 2019-04-09 20:01 | NUR ---
RT NOTE Pt rec'd trached on [facility] vent on AC mode. No Resp Distress or sob noted. Trach is patent and secured. Sx'd for small amt of pale yellow secretions. Alarms are set and audible. Vent plugged into red outlet. Ambu bag bedside. will continue to monitor Addendum: 04/09/19 at 2002 by MERON JARAMILLO RT Amended: Links added.
[2019-04-09] MEDS: CEFEPIME 2 GM in IV D5W 100 ML IV SCH (21:27)
[2019-04-09] MEDS: ATORVASTATIN 10 MG TABLET GT SCH (21:30)
[2019-04-09] MEDS: INSULIN GLARGINE, 100 UNIT/ML CARTRIDGE SQ SCH (21:39)
[2019-04-10] VITALS: BP 143/66
[2019-04-10] MEDS: BLOOD SUGAR DIAGNOSTIC 1 EACH STRIP IN SCH ×4 (00:41→17:59)
[2019-04-10] MEDS: DILTIAZEM HCL 30 MG TABLET GT SCH ×4 (00:41→17:59)
[2019-04-10] MEDS: INSULIN ASPART/LISPRO 100 UNIT/ML CARTRIDGE SQ PRN ×2 (00:42→06:43)
[2019-04-10] MEDS: IPRATROPIUM NEB FS 0.5 MG/2.5 ML AMPUL.NEB IH SCH ×4 (01:24→19:38)
[2019-04-10] MEDS: ALBUTEROL FS 2.5 MG/0.5 ML VIAL.NEB IH SCH ×4 (01:24→19:37)
[2019-04-10 04:00] VITALS: BP_SYST 127; BP_SYST 138; BP_DIAS 73; BP_DIAS 86
[2019-04-10] MEDS ORDERED: RXVAN XX (06:51)
[2019-04-10] MEDS ORDERED: VANC1PLA9 IV (06:51)
[2019-04-10] MEDS ORDERED: Z Guard Remedy TP (06:51)
[2019-04-10] MEDS ORDERED: Hydrogel Dressing TP (06:51)
[2019-04-10] MEDS ORDERED: CEFE2FRO IV (06:51)
[2019-04-10 07:06] LABS: CALCIUM, SERUM 7.7 mg/dL (8.5-10.1); CREATININE 1.4 mg/dL (0.6-1.3); POTASSIUM 3.6 mmol/L (3.5-5.1)
[2019-04-10 08:00] VITALS: BP 111/46
[2019-04-10] MEDS: HYDROGEN PEROXIDE 480 ML BOTTLE TP SCH ×2 (09:00→20:58)
[2019-04-10] MEDS: Z GUARD REMEDY 2 OZ OINT TP SCH ×2 (09:00→20:58)
[2019-04-10] MEDS: ACIDOPHILUS/BULGARICUS 1 EACH TAB.CHEW GT SCH ×2 (09:15→17:59)
[2019-04-10] MEDS: FERROUS SULFATE UDC 300 MG/5 ML UDC GT SCH (09:15)
[2019-04-10] MEDS: LEVETIRACETAM SOL (5 ML) 100 MG/ML UDC GT SCH ×2 (09:15→20:57)
[2019-04-10] MEDS: PANTOPRAZOLE 40 MG/PACK PACK GT SCH (09:15)
[2019-04-10] MEDS: MULTIVIT W/MINERALS 1 TAB TABLET GT SCH (09:15)
[2019-04-10] MEDS: DOCUSATE SODIUM LIQ 100 MG/10 ML UDC GT SCH ×2 (09:15→17:59)
[2019-04-10] MEDS: ACETAMINOPHEN 650 MG/20.3 ML UDC GT SCH ×2 (09:15→20:57)
[2019-04-10] MEDS: ZINC SULFATE 220 MG CAPSULE GT SCH (09:15)
[2019-04-10] MEDS: ASCORBIC ACID 500 MG TABLET GT SCH (09:16)
[2019-04-10 12:00] VITALS: BP 140/72
[2019-04-10 16:00] VITALS: BP 128/56
[2019-04-10] MEDS: IV D5W 1,000 ML IV PRN (18:08)
--- NOTE | 2019-04-10 19:15 | NUR ---
FARM MACHINERY SET UP MECHANIC NOTE PATIENT RECEIVED IN BED AWAKE AND NON VERBAL VEGETATIVE STATE PATIENT UNABLE TO FOLLOW INSTRUCTIONS. PATIENT APPEARS IN NO APPARENT DISTRESS. PATIENT TOLERATING VENT SETTINGS WELL. PATIENT SUCTIONED, SMALL AMOUNT OF THIN WHITISH MUCOUS NOTED. PATIENT HR SR ON THE MONITOR HR IN THE 80'S. PATIENT ON GTUBE FEEDING AT 45 ML/HR TOLERATING WELL NO RESIDUAL NOTED. NEPHROSTOMY AND GILLIAM CATH DRAINING TO GRAVITY CLEAR LIGHT YELLOW URINE WTIH SEDIMENT NOTED. PATIENT GIVEN ORAL CARE AND REPOSITIONED. PATIENT IV PATENT AND INTACT NO S/S OF INFECTION OR INFILTRATION. RN AWARE OF PATIENT D/C BACK TO [facility] SUB ACUTE. RN WILL CONTINUE TO MONITORL. SAFETY PRECAUTIONS IN PLACE.
--- NOTE | 2019-04-10 19:38 | NUR ---
RT NOTE PATIENT RECEIVED TRACH'D ON MECHANICAL VENT. PATIENT IS TOLERATING CURRENT ORDERED VENT SETTINGS. NO SIGNS OF RESPIRATORY DISTRESS NOTED. TRACH IS PATENT AND SECURE ALARMS ARE SET AND AUDIBLE. MECHANICAL VENT IS PLUGGED INTO RED OUTLET. EMERGENCY EQUIPMENT AT PATIENT BEDSIDE. WILL CONTINUE TO MONITOR PATIENT. Addendum: 04/10/19 at 2154 by JUAN M ESPINAL RT Amended: Links added.
[2019-04-10 20:00] VITALS: BP 141/75
--- NOTE | 2019-04-10 20:04 | NUR ---
MANAGER ASSISTED LIVING NOTE REPORT GIVEN TO JESSICA. PATIENT WILL BE TRANSFERRED AFTER 1999 VANCO WILL BE GIVEN.
[2019-04-10] MEDS: VANCOMYCIN 1 GM in IV D5W 250 ML IV SCH (20:09)
--- NOTE | 2019-04-10 20:16 | NUR ---
APPLICATION SOFTWARE DEVELOPER NOTE DAUGHTER NEELA NOTIFIED OF PATIENTS TRANSFER BACK TO SNF.
[2019-04-10] MEDS: CEFEPIME 2 GM in IV D5W 100 ML IV SCH (21:03)
--- NOTE | 2019-04-10 21:39 | NUR ---
INSPECTOR HEATING AND REFRIGERATION NOTE PATIENT TRANSFERRED TO SUB ACUTE ROOM 270-1. PATIENT TOLERATED THE TRANSFER VITAL SIGNS STABLE NO S/S OF DISTRESS. TRANSFER OF CARE GIVEN OVER TO JESSICA CLINICAL DATA MANAGEMENT MANAGER. PATIENT D/C'D FROM UNIT.
--- NOTE | 2019-04-10 21:45 | NUR ---
RT NOTE PATIENT TRANSFERRED TO SUBACUTE WITHOUT COMPLICATIONS OR RESPIRATORY DISTRESS. AMBU BAG AND BACK UP TRACH PRESENT. MECHANICAL VENT PLUGGED INTO RED OUTLET. PATIENT SUCTIONED FOR SMALL, PALE, YELLOW THIN SECRETIONS. ALARMS ARE SET AND AUDIBLE. EMERGENCY EQUIPMENT AT BEDSIDE. WILL CONTINUE TO MONITOR PATIENT.
[2019-04-11] MEDS ORDERED: PANT40TA4 GT (09:11)
[2019-04-11] MEDS ORDERED: HYDR-4384 PO (09:11)
[2019-04-11] MEDS ORDERED: LORA-259 GT (09:11)
== END 2019-04-10 21:51 | DRG 853 ==
LOC: ER 11:41 → TELE-TD 12:00 → TELE1 04-09 14:24
PROVIDERS: ADMIT Internal Medicine Nephrology; ATTEND Internal Medicine
PROC: 5A1955Z Respiratory Ventilation, Greater than 96 Consecutive Hours (ICD-10-PCS; 2019-04-01)
PROC: 0T778DZ Dilation of Left Ureter with Intraluminal Device, Via Natural or Artificial Opening Endoscopic (ICD-10-PCS; principal; 2019-04-03)
PROC: 0T143JD Bypass Left Kidney Pelvis to Cutaneous with Synthetic Substitute, Percutaneous Approach (ICD-10-PCS; 2019-04-04)
PROC: 0T133JD Bypass Right Kidney Pelvis to Cutaneous with Synthetic Substitute, Percutaneous Approach (ICD-10-PCS; 2019-04-04)
PROC: 05H933Z Insertion of Infusion Device into Right Brachial Vein, Percutaneous Approach (ICD-10-PCS; 2019-04-09)
DX: A41.9 Sepsis, unspecified organism (principal); L89.153 Pressure ulcer of sacral region, stage 3; L89.313 Pressure ulcer of right buttock, stage 3; L89.324 Pressure ulcer of left buttock, stage 4; N17.0 Acute kidney failure with tubular necrosis; J18.9 Pneumonia, unspecified organism; N39.0 Urinary tract infection, site not specified; Z99.11 Dependence on respirator [ventilator] status; G93.40 Encephalopathy, unspecified; J96.11 Chronic respiratory failure with hypoxia; E87.0 Hyperosmolality and hypernatremia; N13.2 Hydronephrosis with renal and ureteral calculous obstruction; F03.90 Unspecified dementia, unspecified severity, without behavioral disturbance, psychotic disturbance, mood disturbance, and anxiety; E11.9 Type 2 diabetes mellitus without complications; Z79.4 Long term (current) use of insulin; Z86.73 Personal history of transient ischemic attack (TIA), and cerebral infarction without residual deficits; J44.9 Chronic obstructive pulmonary disease, unspecified; E78.5 Hyperlipidemia, unspecified; R13.10 Dysphagia, unspecified; Z93.0 Tracheostomy status; Z93.1 Gastrostomy status; G40.909 Epilepsy, unspecified, not intractable, without status epilepticus; K21.9 Gastro-esophageal reflux disease without esophagitis; E11.22 Type 2 diabetes mellitus with diabetic chronic kidney disease; E87.5 Hyperkalemia; D64.9 Anemia, unspecified; I12.9 Hypertensive chronic kidney disease with stage 1 through stage 4 chronic kidney disease, or unspecified chronic kidney disease; Z88.2 Allergy status to sulfonamides; Z79.899 Other long term (current) drug therapy; Z79.51 Long term (current) use of inhaled steroids; N18.9 Chronic kidney disease, unspecified; Z87.442 Personal history of urinary calculi; Z83.3 Family history of diabetes mellitus; Z82.49 Family history of ischemic heart disease and other diseases of the circulatory system; B96.4 Proteus (mirabilis) (morganii) as the cause of diseases classified elsewhere; Z87.01 Personal history of pneumonia (recurrent); Y95 Nosocomial condition
CPT/HCPCS: 31720; 36415; 36600; 71045-TC; 74018; 75989; 75989-TC; 80048-TC; 80202-TC; 82272-TC; 82962-TC; 83540-TC; 83735-TC; 84100-TC; 85025-TC; 85027-TC; 85610-TC; 85730-TC; 86850-TC; 86921-TC; 87040-TC; 87070-TC; 87081-TC; 87186-TC; 94002-TC; 94003-TC; 94760-TC; 94762-TC; 94799-TC; 99082-TC; A4217; A4623; A6248; A7526; C1769; G0378; J0690; J0692; J0885; J1644; J1650; J1815; J1940; J1953; J2060; J2250; J2310; J2405; J2543; J2704; J2765; J2916; J3010; J3370; J3490; J7030; J7040; J7050; J7060; J7070; Q0162; Q9966

== ENCOUNTER 2019-04-01 12:25 | Outpatient (CLI) | payer MEDICARE, OTHER ==
[~2019-04-01 12:25] MED LIST changes: +ACID1TAB12 GT; +DEXT50DI8 IV; +DILT30TA14 GT; +ENOX40DI SQ; +HYDR-4384 GT; +HYDR1SOL TP; +NORM10004 IV; +OMEP-293 GT; +ONDA4TAB5 GT; +PIPE2.254 IV; +VANC1PLA9 IV; +VIT500LI GT; +ZINC1CAP2 GT
[2019-04-10] MEDS ORDERED: VANC1PLA9 IV (06:51)
[2019-04-10] MEDS ORDERED: RXVAN XX (06:51)
[2019-04-10] MEDS ORDERED: Z Guard Remedy TP (06:51)
[2019-04-10] MEDS ORDERED: Hydrogel Dressing TP (06:51)
[2019-04-10] MEDS ORDERED: CEFE2FRO IV (06:51)
== END 2019-04-01 23:59 | disposition home or self-care (01) ==
LOC: CT 12:25
PROVIDERS: ATTEND Internal Medicine Nephrology
DX: Z75.3 Unavailability and inaccessibility of health-care facilities (principal)

== ENCOUNTER 2019-04-10 17:11 | Inpatient (IN) | payer OTHER, MEDICARE ==
[~2019-04-10] VITALS: Ht 154.9 cm; Wt 99.8 kg
[~2019-04-10 17:11] MED LIST changes: -ACET-2605 GT; -AMOX250C PO; +CEFE2FRO IV; -CRAN3875 GT; -DILT-2 GT; -HEPA10009 SQ; -HYDR-4076 GT; +Hydrogel Dressing TP; -LANS30CA54 GT; -METR250T PO; +RXVAN XX; -SACC250C PO; -VALS160T29 GT; +Z Guard Remedy TP
[2019-04-10 21:00] VITALS: BP 145/88
[2019-04-10 22:00] VITALS: BP 145/88
--- NOTE | 2019-04-10 22:00 | NUR ---
Patient female 58 yrs old admitted from [facility] under the care of . Dx.Respiratory failure,DM,UTI,Hypernatremia,tracheostomy,GT,Left nephrostomy tube. .Patient awake on mechanical ventilator AC 12,TV 500 Fio2 40% Peep +5.On gaines catheter connected to drainage bag draining yellow urine output. Right upper arm midline intact,dressing changed. Left buttocks stage 4 pressure ulcer noted,right and left under breast redness and abdominal fold redness. Lower extremities edema pitting +3.dr. Martin aware of admission and continue medications orders from acute side. Vancomycin IV q 36 hours x 4 days pharmacy to dose for sepsis. Cefepime 2 grams q 24 hours x 4 more days for sepsis. Daughter Kelly notified of transfer to sub acute by nurse Cyndee from [facility]. HOB elevated,siderails x 4 padded up,call lights within reach.All needs anticipated and will continue to monitor.
[2019-04-10] MEDS ORDERED: hydrALAZINE HCL 10 MG TABLET PO PRN (23:00)
[2019-04-10] MEDS ORDERED: DEXTROSE 50%-WATER 50 ML DISP.SYRIN IVP PRN (23:00)
[2019-04-10] MEDS: BLOOD SUGAR DIAGNOSTIC 1 EACH STRIP IN SCH (23:47)
[2019-04-10] MEDS: INSULIN ASPART/LISPRO 100 UNIT/ML CARTRIDGE SQ SCH (23:48)
[2019-04-10] MEDS: DILTIAZEM HCL 30 MG TABLET PO SCH (23:58)
[2019-04-11] VITALS (7 sets, daily range): BP systolic 126–151; BP diastolic 64–78
--- NOTE | 2019-04-11 02:25 | NUR ---
PATIENT RECEIVED UPON TRANSFER FROM [facility] 1 WITH SETTINGS OF AC 12, 500 VT, 30%, +5. SUCTIONED FOR MINIMAL, THIN, WHITE SECRETIONS. NO OTHER ADVERSE REACTIONS NOTED. AMBU BAG AT BEDSIDE. VENT AND PULSE OXIMETER ALARMS AUDIBLE AND VISIBLE. VENT PLUGGED INTO RED OUTLET. Addendum: 04/11/19 at 0227 by KAISER LAW RT Amended: Links added.
[2019-04-11] MEDS: BLOOD SUGAR DIAGNOSTIC 1 EACH STRIP IN SCH ×4 (05:38→23:18)
[2019-04-11] MEDS: INSULIN ASPART/LISPRO 100 UNIT/ML CARTRIDGE SQ SCH ×4 (05:38→23:19)
[2019-04-11] MEDS: DILTIAZEM HCL 30 MG TABLET PO SCH ×4 (05:38→23:19)
[2019-04-11] MEDS ORDERED: hydrALAZINE HCL 10 MG TABLET GT PRN (08:02)
[2019-04-11] MEDS ORDERED: ALBUTEROL FS 2.5 MG/3 ML VIAL.NEB NEB PRN (08:02)
[2019-04-11] MEDS ORDERED: ALBUTEROL FS 2.5 MG/3 ML VIAL.NEB NEB SCH (08:02)
[2019-04-11] MEDS ORDERED: MAGNESIUM HYDROXIDE 30 ML UDC GT PRN (08:04)
[2019-04-11] MEDS ORDERED: NA PHOS,M-B/NA PHOS,DI-BA 1 EA ENEMA RC PRN (08:04)
[2019-04-11] MEDS ORDERED: ONDANSETRON 4 MG TAB.RAPDIS GT PRN (08:04)
[2019-04-11] MEDS ORDERED: VANCOMYCIN 1 GM in IV D5W 250 ML IV SCH (08:06)
[2019-04-11] MEDS ORDERED: LORAZEPAM INJ 2 MG/ML VIAL IV PRN (08:08)
[2019-04-11] MEDS ORDERED: DEXTROSE 50%-WATER 50 ML DISP.SYRIN IV PRN (08:10)
[2019-04-11] MEDS ORDERED: ACETAMINOPHEN 650 MG/20 ML UDC- SA PATIENTS-PAIN ONLY GT PRN (08:10)
[2019-04-11] MEDS ORDERED: ACETAMINOPHEN 650 MG/20 ML UDC- SA PATIENTS-FEVER ONLY GT PRN (08:10)
[2019-04-11] MEDS ORDERED: BISACODYL SUPP (10 MG) 10 MG/SUPP.RECT SUPP.RECT RC PRN (08:10)
[2019-04-11] MEDS ORDERED: DILTIAZEM HCL 30 MG TABLET GT SCH (08:10)
[2019-04-11] MEDS ORDERED: BLOOD SUGAR DIAGNOSTIC 1 EACH STRIP IN SCH (08:12)
[2019-04-11] MEDS ORDERED: HYDROCODONE/APAP 5/325MG 1 EACH TABLET GT PRN (08:12)
[2019-04-11] MEDS: ALBUTEROL FS 2.5 MG/3 ML VIAL.NEB NEB SCH ×3 (08:18→19:39)
[2019-04-11] MEDS: NYSTATIN TOP POWDER 15 GM BOTTLE TP SCH ×6 (09:00→20:38)
[2019-04-11] MEDS: Z GUARD REMEDY 4 OZ OINT TP SCH ×2 (09:00→20:38)
[2019-04-11] MEDS ORDERED: OMEPRAZOLE 20 MG CAPSULE.DR GT SCH (09:00)
[2019-04-11] MEDS: HYDROGEL DRESSING 90 GM TUBE TP SCH ×2 (09:00→20:38)
[2019-04-11] MEDS ORDERED: PANT40TA4 GT (09:11)
[2019-04-11] MEDS ORDERED: LORA-259 GT (09:11)
[2019-04-11] MEDS ORDERED: HYDR-4384 PO (09:11)
[2019-04-11] MEDS: FERROUS SULFATE UDC 300 MG/5 ML UDC GT SCH (09:35)
[2019-04-11] MEDS: DOCUSATE SODIUM LIQ 100 MG/10 ML UDC GT SCH ×2 (09:35→17:20)
[2019-04-11] MEDS: LEVETIRACETAM SOL (5 ML) 100 MG/ML UDC GT SCH ×2 (09:36→20:38)
[2019-04-11] MEDS: ZINC SULFATE 220 MG CAPSULE GT SCH (09:36)
[2019-04-11] MEDS: ACIDOPHILUS/BULGARICUS 1 EACH TAB.CHEW GT SCH ×2 (09:36→17:20)
[2019-04-11] MEDS: OMEPRAZOLE 20 MG CAPSULE.DR GT SCH (09:36)
[2019-04-11] MEDS: ASCORBIC ACID 500 MG TABLET GT SCH (09:36)
[2019-04-11] MEDS: MULTIVIT W/MINERALS 1 TAB TABLET GT SCH (09:36)
[2019-04-11] MEDS ORDERED: IPRATROPIUM NEB FS 0.5 MG/2.5 ML AMPUL.NEB NEB PRN (10:30)
--- NOTE | 2019-04-11 11:15 | NUR ---
Informed Dr Martin that pt was on Lovenox and Lasix prior to acute hospital transfer. Asked him if he wanted to resume them. He said he will see pt later.
[2019-04-11] MEDS: IPRATROPIUM NEB FS 0.5 MG/2.5 ML AMPUL.NEB NEB SCH ×2 (13:33→19:39)
--- NOTE | 2019-04-11 15:54 | NUR ---
Intake Paperwork: SW contacted the patient's Conservator/daughter, Kelly Wong [phone] to schedule time to complete intake paperwork. However, call went to voicemail and SW stated above mentioned information. Kelly emailed ORACIO to communicate that she had dental work done ans cannot currently verbalize. However, Kelly requested that intake paperwork be left in patient's bedside table drawer for Kaylincisco to complete upon her visit tonbernarda. SW left Intake paperwork in patient's bedside table drawer as requested.
--- NOTE | 2019-04-11 17:28 | NUR ---
Received fax order from [facility] that Dr Martin DC'd Jhoana. Filed DC order in pt's chart.
--- NOTE | 2019-04-11 18:25 | NUR ---
RT NOTE RECEIVED PT MECHANICALLY VENTILATED VIA CUFFED TRACHEOSTOMY TUBE. CUFF INFLATED. TRACH TUBE MIDLINE AND SECURE. VENTILATOR SETTINGS PRESCRIBED. ALARMS SET PER PROTOCOL AND AUDIBLE. VENT PLUGGED IN TO RED OUTLET. AMBU BAG AND BACK UP TRACH AT BED SIDE. NO DISTRESS NOTED. Addendum: 04/11/19 at 1826 by PALLAVI BARRETT RT Amended: Links added.
--- NOTE | 2019-04-11 19:03 | NUR ---
Dr Martin verified to DC Ativan.
[2019-04-11] MEDS: INSULIN GLARGINE, 100 UNIT/ML CARTRIDGE SQ SCH (21:09)
[2019-04-11] MEDS: ATORVASTATIN 10 MG TABLET GT SCH (21:09)
[2019-04-11] MEDS: CEFEPIME 2 GM in IV D5W 100 ML IV SCH (22:00)
[2019-04-11] MEDS: GLUCERNA 1.2 1,000 ML BOTTLE GT PRN (23:19)
[2019-04-12 00:09] VITALS: BP 120/76
[2019-04-12] MEDS: ALBUTEROL FS 2.5 MG/3 ML VIAL.NEB NEB SCH ×4 (01:14→20:09)
[2019-04-12] MEDS: IPRATROPIUM NEB FS 0.5 MG/2.5 ML AMPUL.NEB NEB SCH ×4 (01:14→20:09)
[2019-04-12] MEDS: BLOOD SUGAR DIAGNOSTIC 1 EACH STRIP IN SCH ×4 (05:38→23:15)
[2019-04-12] MEDS: DILTIAZEM HCL 30 MG TABLET PO SCH ×4 (05:39→23:15)
[2019-04-12] MEDS: INSULIN ASPART/LISPRO 100 UNIT/ML CARTRIDGE SQ SCH ×4 (05:40→23:15)
[2019-04-12 06:10] VITALS: BP 119/56
[2019-04-12 07:52] VITALS: BP 128/65
[2019-04-12] MEDS: VANCOMYCIN 1 GM in IV D5W 250 ML IV SCH (08:03)
[2019-04-12] MEDS: MULTIVIT W/MINERALS 1 TAB TABLET GT SCH (08:50)
[2019-04-12] MEDS: ACIDOPHILUS/BULGARICUS 1 EACH TAB.CHEW GT SCH ×2 (08:50→17:10)
[2019-04-12] MEDS: LEVETIRACETAM SOL (5 ML) 100 MG/ML UDC GT SCH ×2 (08:50→20:23)
[2019-04-12] MEDS: ZINC SULFATE 220 MG CAPSULE GT SCH (08:50)
[2019-04-12] MEDS: DOCUSATE SODIUM LIQ 100 MG/10 ML UDC GT SCH ×2 (08:50→17:10)
[2019-04-12] MEDS: OMEPRAZOLE 20 MG CAPSULE.DR GT SCH (08:50)
[2019-04-12] MEDS: ASCORBIC ACID 500 MG TABLET GT SCH (08:50)
[2019-04-12] MEDS: FERROUS SULFATE UDC 300 MG/5 ML UDC GT SCH (08:50)
[2019-04-12] MEDS: NYSTATIN TOP POWDER 15 GM BOTTLE TP SCH ×6 (09:00→20:24)
[2019-04-12] MEDS: Z GUARD REMEDY 4 OZ OINT TP SCH ×2 (09:00→20:24)
[2019-04-12] MEDS: HYDROGEL DRESSING 90 GM TUBE TP SCH ×2 (09:00→20:24)
--- NOTE | 2019-04-12 09:15 | NUR ---
SW received email from the patient's daughter, Kelly stating that she was not able to come in last night to sign the intake paperwork. However, per Kelly, she will come in to today before 4:30pm to complete the Intake paperwork with Customs And Border Protection Inspector. Noted.
[2019-04-12 12:00] VITALS: BP 138/71
--- NOTE | 2019-04-12 15:12 | NUR ---
PATIENT'S DAUGHTER NEELA VISITED TODAY. SPOKE TO NEELA IN REGARDS TO FLU VACCINE FOR HER MOM AND SHE REFUSED FOR THE FLU VACCINE TO BE GIVEN.
--- NOTE | 2019-04-12 16:11 | NUR ---
Intake Paperwork: Patient Admitted to [facility] on 04/10/19 at 2200. Critical Power Technician met with the resident's Daughter, Kelly Wong [phone] on 04/12/19 at 1500 to complete initial admission paperwork (Patient Right's Acknowledgement, Documentation of Preferred Intensity of Care, Conditions of Admission, [facility] Agreement, and Voluntary Prior Express Consent form). SW provided patient with a copy of the Bill of Rights, patient information guide and [facility] resident and family guidelines. Kelly wishes the resident be Full Code (CPR with maximum treatment). SW also completed the initial psychosocial assessment with Kelly as patient is non-communicative. Admission paperwork was placed into the resident's chart. Critical Power Technician educated Kelly on [facility] Directive and Conservatorship and provided informational packets. However, the resident's Daughter, Kelly expressed understanding and is already the Conservator of the person. Copy of the Conservatorship to be provided by Kelly to [facility] at her earliest convenience.
[2019-04-12 18:03] VITALS: BP 147/74
[2019-04-12] MEDS: ATORVASTATIN 10 MG TABLET GT SCH (21:03)
[2019-04-12] MEDS: INSULIN GLARGINE, 100 UNIT/ML CARTRIDGE SQ SCH (21:04)
[2019-04-12] MEDS: CEFEPIME 2 GM in IV D5W 100 ML IV SCH (22:00)
--- NOTE | 2019-04-12 22:21 | NUR ---
PT RECEIVE STABLE ON MV, SETTINGS ARE AC 12 500 +5 @ 40% FIO2, ALARMS ARE ON AND AUDIBLE, SPARE TRACH AND AMBU BAG IS AT BEDSIDE, TRACH PATENT AND SECURED, VENT IS PLUG IS RED OUTLET, WILL CONTINUE TO MONITOR Addendum: 04/12/19 at 2223 by BEN FOOTE RT Amended: Links added.
[2019-04-13 00:07] VITALS: BP 143/77
[2019-04-13] MEDS: ALBUTEROL FS 2.5 MG/3 ML VIAL.NEB NEB SCH ×4 (01:30→19:43)
[2019-04-13] MEDS: IPRATROPIUM NEB FS 0.5 MG/2.5 ML AMPUL.NEB NEB SCH ×4 (01:30→19:42)
[2019-04-13] MEDS: DILTIAZEM HCL 30 MG TABLET PO SCH ×4 (05:28→23:13)
[2019-04-13] MEDS: INSULIN ASPART/LISPRO 100 UNIT/ML CARTRIDGE SQ SCH ×4 (06:00→23:13)
[2019-04-13] MEDS: BLOOD SUGAR DIAGNOSTIC 1 EACH STRIP IN SCH ×4 (06:03→23:13)
[2019-04-13 06:15] VITALS: BP 127/72
[2019-04-13 07:10] LABS: BASOPHILS # (AUTO) 0.1 /CMM (0.0-0.2); BASOPHILS % (AUTO) 0.8 % (0.0-2.0); EOSINOPHILS % (AUTO) 2.8 % (0.0-6.0); HEMATOCRIT 26 % (33-45); HEMOGLOBIN 8.2 g/dL (11.5-14.8); LYMPHOCYTES # (AUTO) 2.1 /CMM (0.8-4.8); MEAN CORPUSCULAR HGB CONC 32 g/dl (31.0-36.0); MEAN CORPUSCULAR VOLUME 89 fL (82-100); MONOCYTES # (AUTO) 0.8 /CMM (0.1-1.30); NEUTROPHILS # (AUTO) 5.6 /CMM (1.8-8.9); NEUTROPHILS % (AUTO) 63.4 % (43.0-81.0); PLATELET COUNT (AUTO) 557 /CMM (150-450); RED BLOOD CELL COUNT(AUTO) 2.91 MIL/uL (4.0-5.2); WHITE BLOOD COUNT (AUTO) 8.9 K/uL (4.3-11.0)
[2019-04-13 07:18] LABS: ALBUMIN 1.5 g/dL (3.4-5.0); BILIRUBIN,TOTAL 0.2 mg/dL (0.2-1.0); CALCIUM, SERUM 8.4 mg/dL (8.5-10.1); MAGNESIUM 1.9 mg/dL (1.8-2.4); PHOSPHORUS 2.6 mg/dL (2.5-4.9); POTASSIUM 4.4 mmol/L (3.5-5.1); TOTAL PROTEIN, SERUM 7.6 g/dL (6.4-8.2)
[2019-04-13 08:05] VITALS: BP 125/75
[2019-04-13] MEDS: DOCUSATE SODIUM LIQ 100 MG/10 ML UDC GT SCH ×2 (08:36→17:10)
[2019-04-13] MEDS: FERROUS SULFATE UDC 300 MG/5 ML UDC GT SCH (08:36)
[2019-04-13] MEDS: LEVETIRACETAM SOL (5 ML) 100 MG/ML UDC GT SCH ×2 (08:36→20:26)
[2019-04-13] MEDS: ZINC SULFATE 220 MG CAPSULE GT SCH (08:36)
[2019-04-13] MEDS: OMEPRAZOLE 20 MG CAPSULE.DR GT SCH (08:36)
[2019-04-13] MEDS: ASCORBIC ACID 500 MG TABLET GT SCH (08:36)
[2019-04-13] MEDS: ACIDOPHILUS/BULGARICUS 1 EACH TAB.CHEW GT SCH ×2 (08:36→17:10)
[2019-04-13] MEDS: MULTIVIT W/MINERALS 1 TAB TABLET GT SCH (08:38)
[2019-04-13] MEDS: Z GUARD REMEDY 4 OZ OINT TP SCH ×2 (09:00→20:27)
[2019-04-13] MEDS: NYSTATIN TOP POWDER 15 GM BOTTLE TP SCH ×6 (09:00→20:27)
[2019-04-13] MEDS: HYDROGEL DRESSING 90 GM TUBE TP SCH ×2 (09:00→20:26)
[2019-04-13 12:00] VITALS: BP 99/62
[2019-04-13] MEDS: GLUCERNA 1.2 1,000 ML BOTTLE GT PRN (12:37)
[2019-04-13 18:05] VITALS: BP 120/81
[2019-04-13] MEDS: VANCOMYCIN 1 GM in IV D5W 250 ML IV SCH (20:00)
[2019-04-13] MEDS: ATORVASTATIN 10 MG TABLET GT SCH (21:08)
[2019-04-13] MEDS: INSULIN GLARGINE, 100 UNIT/ML CARTRIDGE SQ SCH (21:09)
[2019-04-13] MEDS: CEFEPIME 2 GM in IV D5W 100 ML IV SCH (22:00)
[2019-04-14 00:01] VITALS: BP 142/57
[2019-04-14] MEDS: IPRATROPIUM NEB FS 0.5 MG/2.5 ML AMPUL.NEB NEB SCH ×4 (02:20→19:35)
[2019-04-14] MEDS: ALBUTEROL FS 2.5 MG/3 ML VIAL.NEB NEB SCH ×4 (02:20→19:35)
[2019-04-14] MEDS: BLOOD SUGAR DIAGNOSTIC 1 EACH STRIP IN SCH ×4 (05:34→23:22)
[2019-04-14] MEDS: DILTIAZEM HCL 30 MG TABLET PO SCH ×4 (05:34→23:22)
[2019-04-14] MEDS: INSULIN ASPART/LISPRO 100 UNIT/ML CARTRIDGE SQ SCH ×4 (05:35→23:23)
[2019-04-14 06:03] VITALS: BP 140/56
[2019-04-14 08:02] VITALS: BP 141/79
[2019-04-14] MEDS: LEVETIRACETAM SOL (5 ML) 100 MG/ML UDC GT SCH ×2 (08:59→21:33)
[2019-04-14] MEDS: DOCUSATE SODIUM LIQ 100 MG/10 ML UDC GT SCH ×2 (08:59→17:06)
[2019-04-14] MEDS: FERROUS SULFATE UDC 300 MG/5 ML UDC GT SCH (08:59)
[2019-04-14] MEDS: HYDROGEL DRESSING 90 GM TUBE TP SCH ×2 (09:00→21:33)
[2019-04-14] MEDS: ASCORBIC ACID 500 MG TABLET GT SCH (09:00)
[2019-04-14] MEDS: NYSTATIN TOP POWDER 15 GM BOTTLE TP SCH ×6 (09:00→21:33)
[2019-04-14] MEDS: OMEPRAZOLE 20 MG CAPSULE.DR GT SCH (09:00)
[2019-04-14] MEDS: ACIDOPHILUS/BULGARICUS 1 EACH TAB.CHEW GT SCH ×2 (09:00→17:06)
[2019-04-14] MEDS: Z GUARD REMEDY 4 OZ OINT TP SCH ×2 (09:00→21:33)
[2019-04-14] MEDS: ZINC SULFATE 220 MG CAPSULE GT SCH (09:00)
[2019-04-14] MEDS: MULTIVIT W/MINERALS 1 TAB TABLET GT SCH (09:00)
[2019-04-14 12:00] VITALS: BP 114/73
[2019-04-14] MEDS: GLUCERNA 1.2 1,000 ML BOTTLE GT PRN (14:54)
[2019-04-14 19:00] VITALS: BP 128/76
[2019-04-14 19:50] VITALS: BP 126/69
[2019-04-14] MEDS: ATORVASTATIN 10 MG TABLET GT SCH (21:33)
[2019-04-14] MEDS: INSULIN GLARGINE, 100 UNIT/ML CARTRIDGE SQ SCH (21:34)
[2019-04-14] MEDS: CEFEPIME 2 GM in IV D5W 100 ML IV SCH (22:00)
[2019-04-15] VITALS (7 sets, daily range): BP systolic 118–155; BP diastolic 60–81
[2019-04-15] MEDS: IPRATROPIUM NEB FS 0.5 MG/2.5 ML AMPUL.NEB NEB SCH ×4 (01:39→19:58)
[2019-04-15] MEDS: ALBUTEROL FS 2.5 MG/3 ML VIAL.NEB NEB SCH ×4 (01:39→19:58)
[2019-04-15] MEDS: BLOOD SUGAR DIAGNOSTIC 1 EACH STRIP IN SCH ×4 (05:39→23:08)
[2019-04-15] MEDS: DILTIAZEM HCL 30 MG TABLET PO SCH ×4 (05:39→23:08)
[2019-04-15] MEDS: INSULIN ASPART/LISPRO 100 UNIT/ML CARTRIDGE SQ SCH ×4 (05:40→23:09)
[2019-04-15] MEDS: VANCOMYCIN 1 GM in IV D5W 250 ML IV SCH (08:00)
[2019-04-15] MEDS: MULTIVIT W/MINERALS 1 TAB TABLET GT SCH (09:00)
[2019-04-15] MEDS: Z GUARD REMEDY 4 OZ OINT TP SCH ×2 (09:00→21:58)
[2019-04-15] MEDS: FERROUS SULFATE UDC 300 MG/5 ML UDC GT SCH (09:00)
[2019-04-15] MEDS: ZINC SULFATE 220 MG CAPSULE GT SCH (09:00)
[2019-04-15] MEDS: OMEPRAZOLE 20 MG CAPSULE.DR GT SCH (09:00)
[2019-04-15] MEDS: ASCORBIC ACID 500 MG TABLET GT SCH (09:00)
[2019-04-15] MEDS: DOCUSATE SODIUM LIQ 100 MG/10 ML UDC GT SCH ×2 (09:00→17:34)
[2019-04-15] MEDS: NYSTATIN TOP POWDER 15 GM BOTTLE TP SCH ×6 (09:00→21:57)
[2019-04-15] MEDS: LEVETIRACETAM SOL (5 ML) 100 MG/ML UDC GT SCH ×2 (09:00→20:26)
[2019-04-15] MEDS: HYDROGEL DRESSING 90 GM TUBE TP SCH ×2 (09:00→21:57)
[2019-04-15] MEDS: ACIDOPHILUS/BULGARICUS 1 EACH TAB.CHEW GT SCH ×2 (09:00→17:34)
--- NOTE | 2019-04-15 10:38 | NUR ---
RT NOTE RECEIVED PATIENT ON TRACH WITH MECHANICAL VENTILATOR. TRACH IS PATENT AND SECURED. SPARE TRACH AND BVM IS AT BEDSIDE. VENTILATOR IS PLUGGED TO RED OUTLET. ALARMS ARE SET AND AUDIBLE. PATIENT HAS EQUAL CHEST RISE AND COARSE BILATERAL BREATH SOUNDS. SUCTION SMALL AMOUNT OF WHITE THIN SECRETIONS. PATIENT IS IN SYNC AND COMFORTABLE ON THE VENTILATOR. WILL CONTINUE TO MONITOR. Addendum: 04/15/19 at 1039 by MÓNICA GILLETTE RT Amended: Links added.
[2019-04-15] MEDS: PROSOURCE / PROSTAT (PYXIS) 30 ML UDC PO SCH ×2 (13:50→17:34)
[2019-04-15] MEDS: GLUCERNA 1.2 1,000 ML BOTTLE GT PRN (17:46)
--- NOTE | 2019-04-15 20:53 | NUR ---
PT RCVD TRACH'D ON MECHANICAL VENT WITH CHARTED SETTINGS. PT [place] WELL. SX DONE. PT TRACH IS PATENT AND SECURE. VENT ALARMS APPEAR TO BE FUNCTIONING PROPERLY. AMBU BAG AT BEDSIDE. VENT PLUGGED INTO RED OUTLET. NO SOB NOTED. Addendum: 04/15/19 at 2052 by JOEY PAPPAS RT Amended: Links added.
[2019-04-15] MEDS: ATORVASTATIN 10 MG TABLET GT SCH (21:58)
[2019-04-15] MEDS: CEFEPIME 2 GM in IV D5W 100 ML IV SCH (22:03)
[2019-04-15] MEDS: INSULIN GLARGINE, 100 UNIT/ML CARTRIDGE SQ SCH (22:04)
[2019-04-16 00:53] VITALS: BP 140/72
[2019-04-16] MEDS: ALBUTEROL FS 2.5 MG/3 ML VIAL.NEB NEB SCH ×4 (01:01→19:45)
[2019-04-16] MEDS: IPRATROPIUM NEB FS 0.5 MG/2.5 ML AMPUL.NEB NEB SCH ×4 (01:01→19:45)
[2019-04-16] MEDS: INSULIN ASPART/LISPRO 100 UNIT/ML CARTRIDGE SQ SCH ×3 (06:00→18:00)
[2019-04-16] MEDS: BLOOD SUGAR DIAGNOSTIC 1 EACH STRIP IN SCH ×3 (06:04→18:39)
[2019-04-16] MEDS: DILTIAZEM HCL 30 MG TABLET PO SCH ×3 (06:05→18:42)
[2019-04-16 06:15] VITALS: BP 132/68
[2019-04-16 07:56] VITALS: BP 142/83
[2019-04-16] MEDS: PROSOURCE / PROSTAT (PYXIS) 30 ML UDC PO SCH ×3 (08:51→17:00)
[2019-04-16] MEDS: LEVETIRACETAM SOL (5 ML) 100 MG/ML UDC GT SCH ×2 (08:51→20:55)
[2019-04-16] MEDS: ASCORBIC ACID 500 MG TABLET GT SCH (08:51)
[2019-04-16] MEDS: ZINC SULFATE 220 MG CAPSULE GT SCH (08:51)
[2019-04-16] MEDS: DOCUSATE SODIUM LIQ 100 MG/10 ML UDC GT SCH ×2 (08:51→17:00)
[2019-04-16] MEDS: FERROUS SULFATE UDC 300 MG/5 ML UDC GT SCH (08:51)
[2019-04-16] MEDS: MULTIVIT W/MINERALS 1 TAB TABLET GT SCH (08:51)
[2019-04-16] MEDS: OMEPRAZOLE 20 MG CAPSULE.DR GT SCH (08:51)
[2019-04-16] MEDS: ACIDOPHILUS/BULGARICUS 1 EACH TAB.CHEW GT SCH ×2 (08:51→17:00)
[2019-04-16] MEDS: HYDROGEL DRESSING 90 GM TUBE TP SCH ×2 (09:00→20:56)
[2019-04-16] MEDS: Z GUARD REMEDY 4 OZ OINT TP SCH ×2 (09:00→20:57)
[2019-04-16] MEDS: NYSTATIN TOP POWDER 15 GM BOTTLE TP SCH ×6 (09:00→20:58)
[2019-04-16 12:00] VITALS: BP 144/80
--- NOTE | 2019-04-16 14:59 | NUR ---
ORACIO emailed the pt.'s daughter, Kelly [phone] to remind them that the pt. will receive a new account fo the new year which requires new intake paperwork to filled out. ORACIO will await response regarding her availability to complete intake paperwork.
[2019-04-16] MEDS ORDERED: DEXTROSE 50%-WATER 50 ML DISP.SYRIN IVP PRN (15:30)
[2019-04-16 18:00] VITALS: BP 131/82
[2019-04-16] MEDS: GLUCERNA 1.2 1,000 ML BOTTLE GT PRN (18:49)
[2019-04-16 20:27] VITALS: BP 142/86
[2019-04-16] MEDS: HYDROGEN PEROXIDE 480 ML BOTTLE TP SCH (21:00)
[2019-04-16] MEDS: ATORVASTATIN 10 MG TABLET GT SCH (22:03)
[2019-04-16] MEDS: INSULIN GLARGINE, 100 UNIT/ML CARTRIDGE SQ SCH (22:38)
[2019-04-17] MEDS: BLOOD SUGAR DIAGNOSTIC 1 EACH STRIP IN SCH ×4 (00:45→18:16)
[2019-04-17] MEDS: DILTIAZEM HCL 30 MG TABLET PO SCH ×2 (00:46→05:55)
[2019-04-17] MEDS: INSULIN ASPART/LISPRO 100 UNIT/ML CARTRIDGE SQ SCH ×4 (00:51→18:25)
[2019-04-17 01:01] VITALS: BP 133/70
[2019-04-17] MEDS: ALBUTEROL FS 2.5 MG/3 ML VIAL.NEB NEB SCH ×4 (01:42→19:41)
[2019-04-17] MEDS: IPRATROPIUM NEB FS 0.5 MG/2.5 ML AMPUL.NEB NEB SCH ×4 (01:42→19:41)
[2019-04-17 06:23] VITALS: BP 128/72
[2019-04-17 07:57] VITALS: BP 155/85
[2019-04-17] MEDS: FERROUS SULFATE UDC 300 MG/5 ML UDC GT SCH (08:40)
[2019-04-17] MEDS: DOCUSATE SODIUM LIQ 100 MG/10 ML UDC GT SCH ×2 (08:40→17:13)
[2019-04-17] MEDS: LEVETIRACETAM SOL (5 ML) 100 MG/ML UDC GT SCH ×2 (08:40→21:16)
[2019-04-17] MEDS: OMEPRAZOLE 20 MG CAPSULE.DR GT SCH (08:41)
[2019-04-17] MEDS: ACIDOPHILUS/BULGARICUS 1 EACH TAB.CHEW GT SCH ×2 (08:41→17:13)
[2019-04-17] MEDS: ASCORBIC ACID 500 MG TABLET GT SCH (08:41)
[2019-04-17] MEDS: PROSOURCE / PROSTAT (PYXIS) 30 ML UDC PO SCH ×3 (08:42→17:13)
[2019-04-17] MEDS: MULTIVIT W/MINERALS 1 TAB TABLET GT SCH (08:47)
[2019-04-17] MEDS: ZINC SULFATE 220 MG CAPSULE GT SCH (08:47)
[2019-04-17] MEDS: Z GUARD REMEDY 4 OZ OINT TP SCH ×2 (09:00→21:16)
[2019-04-17] MEDS: HYDROGEL DRESSING 90 GM TUBE TP SCH ×2 (09:00→21:16)
[2019-04-17] MEDS: NYSTATIN TOP POWDER 15 GM BOTTLE TP SCH ×6 (09:00→21:16)
[2019-04-17 12:00] VITALS: BP 114/71
[2019-04-17] MEDS: GLUCERNA 1.2 1,000 ML BOTTLE GT PRN (13:30)
[2019-04-17] MEDS: DILTIAZEM HCL 30 MG TABLET GT SCH (17:13)
[2019-04-17 18:05] VITALS: BP 140/72
[2019-04-17] MEDS: HYDROGEN PEROXIDE 480 ML BOTTLE TP SCH ×2 (19:41→21:16)
[2019-04-17 19:43] VITALS: BP 147/77
[2019-04-17] MEDS: ATORVASTATIN 10 MG TABLET GT SCH (21:17)
[2019-04-17] MEDS: INSULIN GLARGINE, 100 UNIT/ML CARTRIDGE SQ SCH (22:38)
[2019-04-18] VITALS: BP 141/74
[2019-04-18] MEDS: BLOOD SUGAR DIAGNOSTIC 1 EACH STRIP IN SCH ×2 (00:13→05:31)
[2019-04-18] MEDS: DILTIAZEM HCL 30 MG TABLET GT SCH ×2 (00:14→05:35)
[2019-04-18] MEDS: INSULIN ASPART/LISPRO 100 UNIT/ML CARTRIDGE SQ SCH ×2 (00:15→05:34)
[2019-04-18] MEDS: ALBUTEROL FS 2.5 MG/3 ML VIAL.NEB NEB SCH ×2 (01:23→07:42)
[2019-04-18] MEDS: IPRATROPIUM NEB FS 0.5 MG/2.5 ML AMPUL.NEB NEB SCH ×2 (01:23→07:42)
[2019-04-18] MEDS: GLUCERNA 1.2 1,000 ML BOTTLE GT PRN (04:30)
--- NOTE | 2019-04-18 05:52 | NUR ---
PATIENT RECEIVED ON TRACH TO VENT WITH SETTINGS OF AC 12, 500 Vt, 30%, +5. SUCTIONED FOR MINIMAL, THIN, WHITE SECRETIONS. GIVEN IN-LINE TREATMENTS WITH NO ADVERSE REACTIONS. AMBU BAG AT BEDSIDE. VENT ALARM AUDIBLE AND VISIBLE. VENT PLUGGED INTO RED OUTLET. TRACH CARE DONE. Addendum: 04/18/19 at 0555 by KAISER LAW RT Amended: Links added.
[2019-04-18 06:00] VITALS: BP 145/79
[2019-04-18] MEDS: HYDROGEN PEROXIDE 480 ML BOTTLE TP SCH (07:42)
[2019-04-18 07:43] VITALS: BP 143/60
[2019-08-22] MEDS ORDERED: TUBERCULIN,PURIF.PROT.DERIV. 5 TU/0.1 ML VIAL ID SCH (09:00)
== END 2019-04-16 23:59 | disposition still patient (30) | DRG 130 ==
LOC: SA 17:11
PROVIDERS: ADMIT Internal Medicine; ATTEND Internal Medicine
PROC: 5A1955Z Respiratory Ventilation, Greater than 96 Consecutive Hours (ICD-10-PCS; principal; 2019-04-10)
DX: J96.11 Chronic respiratory failure with hypoxia (principal); G92 Toxic encephalopathy; R40.3 Persistent vegetative state; N17.9 Acute kidney failure, unspecified; L89.324 Pressure ulcer of left buttock, stage 4; R13.10 Dysphagia, unspecified; F03.90 Unspecified dementia, unspecified severity, without behavioral disturbance, psychotic disturbance, mood disturbance, and anxiety; E11.9 Type 2 diabetes mellitus without complications; E78.5 Hyperlipidemia, unspecified; D64.9 Anemia, unspecified; J44.9 Chronic obstructive pulmonary disease, unspecified; I10 Essential (primary) hypertension; G40.909 Epilepsy, unspecified, not intractable, without status epilepticus; K21.9 Gastro-esophageal reflux disease without esophagitis; L30.4 Erythema intertrigo; L60.3 Nail dystrophy; R53.2 Functional quadriplegia; Z74.01 Bed confinement status; Z82.49 Family history of ischemic heart disease and other diseases of the circulatory system; Z83.3 Family history of diabetes mellitus; Z86.73 Personal history of transient ischemic attack (TIA), and cerebral infarction without residual deficits; Z87.442 Personal history of urinary calculi; Z93.1 Gastrostomy status; Z93.6 Other artificial openings of urinary tract status
CPT/HCPCS: 31720; 36415; 80053-TC; 82962-TC; 83735-TC; 84100-TC; 85025-TC; 94003-TC; 94760-TC; 94762-TC; 97530-TC; A4623; A6248; A7526; J0692; J1815; J2060; J3370; J7060

== ENCOUNTER 2019-04-19 14:53 | Outpatient (CLI) | payer MEDICARE, OTHER ==
[~2019-04-19 14:53] MED LIST changes: -ENOX40DI SQ; -HYDR-4384 GT; +HYDR-4384 PO; -HYDR1SOL TP; +LORA-259 GT; -OMEP-293 GT; +PANT40TA4 GT; -PIPE2.254 IV
== END 2019-04-19 23:59 | disposition home or self-care (01) ==
LOC: US 14:53
PROVIDERS: ATTEND Internal Medicine
DX: N28.1 Cyst of kidney, acquired (principal); N13.30 Unspecified hydronephrosis; I82.409 Acute embolism and thrombosis of unspecified deep veins of unspecified lower extremity; R60.9 Edema, unspecified; Z96.0 Presence of urogenital implants
CPT/HCPCS: 76770-TC

== ENCOUNTER 2021-04-17 00:01 | Inpatient (IN) | payer MEDICARE, OTHER ==
[~2021-04-17] VITALS: Ht 154.9 cm; Wt 72.1 kg
[~2021-04-17 00:01] MED LIST changes: -PANT40TA4 GT; +PANT40TA49 GT
--- NOTE | 2021-04-19 08:55 | NUR ---
Please see resident's previous account [phone] for all assessments and nurses notes.
[2021-04-19] MEDS ORDERED: ALBUTEROL FS 2.5 MG/3 ML VIAL.NEB NEB PRN (11:30)
[2021-04-19] MEDS ORDERED: hydrALAZINE HCL 10 MG TABLET GT PRN (11:30)
[2021-04-19] MEDS ORDERED: IPRATROPIUM NEB FS 0.5 MG/2.5 ML AMPUL.NEB NEB PRN (11:30)
[2021-04-19] MEDS ORDERED: ACETAMINOPHEN 650 MG/20 ML UDC- SA PATIENTS-FEVER ONLY GT PRN (11:30)
[2021-04-19] MEDS ORDERED: MAGNESIUM HYDROXIDE 30 ML UDC PO PRN (11:30)
[2021-04-19] MEDS ORDERED: DEXTROSE 50%-WATER 50 ML DISP.SYRIN IVP PRN (11:30)
[2021-04-19] MEDS ORDERED: ONDANSETRON 4 MG TAB.RAPDIS GT PRN (11:30)
[2021-04-19] MEDS ORDERED: ACETAMINOPHEN 650 MG/20 ML UDC- SA PATIENTS-PAIN ONLY GT PRN (11:30)
[2021-04-19] MEDS ORDERED: BISACODYL SUPP (10 MG) 10 MG/SUPP.RECT SUPP.RECT RC PRN (11:30)
[2021-04-19] MEDS ORDERED: MINERAL OIL 133 ML (PYXIS) 1 EA ENEMA RC PRN (11:30)
[2021-04-19] MEDS: DILTIAZEM HCL 30 MG TABLET GT SCH ×3 (12:00→23:26)
[2021-04-19] MEDS: POLYVINYL ALCOHOL 15 ML BOTTLE EACHEYE SCH ×3 (12:00→23:26)
[2021-04-19] MEDS: BLOOD SUGAR DIAGNOSTIC 1 EACH STRIP IN SCH ×3 (12:26→23:26)
[2021-04-19] MEDS: ALBUTEROL FS 2.5 MG/0.5 ML VIAL.NEB NEB SCH ×2 (13:32→19:52)
[2021-04-19] MEDS: IPRATROPIUM NEB FS 0.5 MG/2.5 ML AMPUL.NEB NEB SCH ×2 (13:32→19:52)
[2021-04-19] MEDS: INSULIN ASPART/LISPRO 100 UNIT/ML CARTRIDGE SQ PRN ×3 (13:43→23:27)
--- NOTE | 2021-04-19 13:51 | NUR ---
Virtual rounds done by MILLY Bender, no new order given.
[2021-04-19 14:14] VITALS: BP 148/73
[2021-04-19] MEDS: ACIDOPHILUS/BULGARICUS 1 EACH TAB.CHEW GT SCH (17:00)
[2021-04-19] MEDS: DOCUSATE SODIUM LIQ 100 MG/10 ML UDC GT SCH (17:00)
[2021-04-19 19:14] VITALS: BP 106/57
[2021-04-19] MEDS: HYDROGEN PEROXIDE 480 ML BOTTLE TP SCH (19:52)
[2021-04-19] MEDS: LEVETIRACETAM SOL (5 ML) 100 MG/ML UDC GT SCH (21:17)
[2021-04-19] MEDS: NYSTATIN TOP POWDER 15 GM BOTTLE TP SCH (21:17)
[2021-04-19] MEDS: Z GUARD REMEDY 4 OZ OINT TP SCH (21:18)
[2021-04-19] MEDS: POLYETHYLENE GLYCOL 3350 17 GM POWD.PACK GT SCH (21:18)
[2021-04-19] MEDS: ATORVASTATIN 10 MG TABLET GT SCH (21:18)
[2021-04-19] MEDS: VITAMINS A AND D 56.7 GM TUBE TP SCH ×2 (21:18)
[2021-04-19] MEDS: ENOXAPARIN SODIUM 40 MG/0.4 ML DISP.SYRIN SQ SCH (21:19)
[2021-04-19] MEDS: INSULIN GLARGINE,BASAGLAR 100 UNIT/ML INSULN.PEN SQ SCH (21:19)
[2021-04-20 00:52] VITALS: BP 106/60
[2021-04-20] MEDS: ALBUTEROL FS 2.5 MG/0.5 ML VIAL.NEB NEB SCH ×4 (02:28→20:07)
[2021-04-20] MEDS: IPRATROPIUM NEB FS 0.5 MG/2.5 ML AMPUL.NEB NEB SCH ×4 (02:28→20:07)
[2021-04-20] MEDS: OMEPRAZOLE 20 MG CAPSULE.DR GT SCH (05:37)
[2021-04-20] MEDS: POLYVINYL ALCOHOL 15 ML BOTTLE EACHEYE SCH ×3 (05:37→17:23)
[2021-04-20] MEDS: DILTIAZEM HCL 30 MG TABLET GT SCH ×3 (05:37→17:24)
[2021-04-20] MEDS: BLOOD SUGAR DIAGNOSTIC 1 EACH STRIP IN SCH ×3 (05:37→17:24)
[2021-04-20] MEDS: INSULIN ASPART/LISPRO 100 UNIT/ML CARTRIDGE SQ PRN ×3 (05:38→17:26)
[2021-04-20 07:18] VITALS: BP 136/81
[2021-04-20] MEDS: HYDROGEN PEROXIDE 480 ML BOTTLE TP SCH ×2 (08:10→21:05)
[2021-04-20] MEDS: ASCORBIC ACID 500 MG TABLET GT SCH (09:00)
[2021-04-20] MEDS: FERROUS SULFATE - FOR SA ONLY 330 MG/7.5 ML UDC GT SCH (09:00)
[2021-04-20] MEDS: DOCUSATE SODIUM LIQ 100 MG/10 ML UDC GT SCH ×2 (09:00→16:07)
[2021-04-20] MEDS: VITAMINS A AND D 56.7 GM TUBE TP SCH ×4 (09:00→20:11)
[2021-04-20] MEDS: NYSTATIN TOP POWDER 15 GM BOTTLE TP SCH ×2 (09:00→20:10)
[2021-04-20] MEDS: ZINC SULFATE 220 MG CAPSULE GT SCH (09:00)
[2021-04-20] MEDS: LISINOPRIL (5MG) 5 MG TABLET GT SCH (09:00)
[2021-04-20] MEDS: Z GUARD REMEDY 4 OZ OINT TP SCH ×2 (09:00→20:10)
[2021-04-20] MEDS: ACIDOPHILUS/BULGARICUS 1 EACH TAB.CHEW GT SCH ×2 (09:00→16:07)
[2021-04-20] MEDS: SITAGLIPTIN PHOSPHATE 50 MG TABLET GT SCH (09:00)
[2021-04-20] MEDS: LEVETIRACETAM SOL (5 ML) 100 MG/ML UDC GT SCH ×2 (09:00→20:10)
[2021-04-20] MEDS: MULTIVIT W/MINERALS 1 TAB TABLET GT SCH (09:00)
--- NOTE | 2021-04-20 09:00 | NUR ---
Virtual rounds done by Dr. Capone, no new order given.
[2021-04-20 10:00] VITALS: BP 131/76
[2021-04-20 12:26] VITALS: BP_SYST 116; BP_SYST 131; BP_DIAS 76; BP_DIAS 77
[2021-04-20] MEDS: GLUCERNA 1.2 1,000 ML BOTTLE GT PRN (15:21)
--- NOTE | 2021-04-20 15:49 | NUR ---
Family Invite to IDT: ORACIO emailed the pt.'s daughter, Kelly inviting them to participate in 04/23/2021 IDT Meeting. ORACIO will follow up accordingly.
[2021-04-20 19:36] VITALS: BP 127/66
[2021-04-20] MEDS: ATORVASTATIN 10 MG TABLET GT SCH (21:03)
[2021-04-20] MEDS: POLYETHYLENE GLYCOL 3350 17 GM POWD.PACK GT SCH (21:03)
[2021-04-20] MEDS: INSULIN GLARGINE,BASAGLAR 100 UNIT/ML INSULN.PEN SQ SCH (21:09)
[2021-04-20] MEDS: ENOXAPARIN SODIUM 40 MG/0.4 ML DISP.SYRIN SQ SCH (21:10)
[2021-04-20 22:10] VITALS: BP 127/66
[2021-04-21] MEDS: POLYVINYL ALCOHOL 15 ML BOTTLE EACHEYE SCH ×5 (00:01→23:41)
[2021-04-21] MEDS: BLOOD SUGAR DIAGNOSTIC 1 EACH STRIP IN SCH ×5 (00:03→23:41)
[2021-04-21] MEDS: DILTIAZEM HCL 30 MG TABLET GT SCH ×5 (00:03→23:41)
[2021-04-21] MEDS: INSULIN ASPART/LISPRO 100 UNIT/ML CARTRIDGE SQ PRN ×5 (00:04→23:43)
[2021-04-21 01:02] VITALS: BP_SYST 110; BP_SYST 127; BP_DIAS 62; BP_DIAS 66
[2021-04-21] MEDS: IPRATROPIUM NEB FS 0.5 MG/2.5 ML AMPUL.NEB NEB SCH ×4 (01:35→19:11)
[2021-04-21] MEDS: ALBUTEROL FS 2.5 MG/0.5 ML VIAL.NEB NEB SCH ×4 (01:35→19:11)
[2021-04-21] MEDS: OMEPRAZOLE 20 MG CAPSULE.DR GT SCH (05:05)
[2021-04-21 07:22] VITALS: BP 135/74
[2021-04-21] MEDS: LEVETIRACETAM SOL (5 ML) 100 MG/ML UDC GT SCH ×2 (08:05→21:44)
[2021-04-21] MEDS: DOCUSATE SODIUM LIQ 100 MG/10 ML UDC GT SCH ×2 (08:05→16:49)
[2021-04-21] MEDS: ACIDOPHILUS/BULGARICUS 1 EACH TAB.CHEW GT SCH ×2 (08:05→16:49)
[2021-04-21] MEDS: SITAGLIPTIN PHOSPHATE 50 MG TABLET GT SCH (08:05)
[2021-04-21] MEDS: FERROUS SULFATE - FOR SA ONLY 330 MG/7.5 ML UDC GT SCH (08:05)
[2021-04-21] MEDS: ASCORBIC ACID 500 MG TABLET GT SCH (08:06)
[2021-04-21] MEDS: NYSTATIN TOP POWDER 15 GM BOTTLE TP SCH ×2 (08:06→21:45)
[2021-04-21] MEDS: MULTIVIT W/MINERALS 1 TAB TABLET GT SCH (08:06)
[2021-04-21] MEDS: LISINOPRIL (5MG) 5 MG TABLET GT SCH (08:06)
[2021-04-21] MEDS: ZINC SULFATE 220 MG CAPSULE GT SCH (08:06)
[2021-04-21] MEDS: VITAMINS A AND D 56.7 GM TUBE TP SCH ×4 (08:08→21:45)
[2021-04-21] MEDS: Z GUARD REMEDY 4 OZ OINT TP SCH ×2 (08:09→21:45)
[2021-04-21] MEDS: HYDROGEN PEROXIDE 480 ML BOTTLE TP SCH ×2 (09:16→21:37)
[2021-04-21 10:00] VITALS: BP 135/74
[2021-04-21 13:19] VITALS: BP 122/78
[2021-04-21] MEDS: GLUCERNA 1.2 1,000 ML BOTTLE GT PRN (15:54)
[2021-04-21 19:24] VITALS: BP 129/67
[2021-04-21] MEDS: ATORVASTATIN 10 MG TABLET GT SCH (21:45)
[2021-04-21] MEDS: POLYETHYLENE GLYCOL 3350 17 GM POWD.PACK GT SCH (21:45)
[2021-04-21] MEDS: INSULIN GLARGINE,BASAGLAR 100 UNIT/ML INSULN.PEN SQ SCH (21:46)
[2021-04-21] MEDS: ENOXAPARIN SODIUM 40 MG/0.4 ML DISP.SYRIN SQ SCH (21:47)
[2021-04-21 22:00] VITALS: BP 129/67
[2021-04-22 00:20] VITALS: BP 131/65
[2021-04-22] MEDS: IPRATROPIUM NEB FS 0.5 MG/2.5 ML AMPUL.NEB NEB SCH ×4 (01:27→20:12)
[2021-04-22] MEDS: ALBUTEROL FS 2.5 MG/0.5 ML VIAL.NEB NEB SCH ×4 (01:27→20:12)
[2021-04-22] MEDS: POLYVINYL ALCOHOL 15 ML BOTTLE EACHEYE SCH ×4 (06:13→23:30)
[2021-04-22] MEDS: DILTIAZEM HCL 30 MG TABLET GT SCH ×4 (06:14→23:54)
[2021-04-22] MEDS: OMEPRAZOLE 20 MG CAPSULE.DR GT SCH (06:14)
[2021-04-22] MEDS: BLOOD SUGAR DIAGNOSTIC 1 EACH STRIP IN SCH ×4 (06:14→23:31)
[2021-04-22] MEDS: INSULIN ASPART/LISPRO 100 UNIT/ML CARTRIDGE SQ PRN ×4 (06:14→23:31)
[2021-04-22 07:17] VITALS: BP 126/74
[2021-04-22] MEDS: HYDROGEN PEROXIDE 480 ML BOTTLE TP SCH ×2 (08:06→20:13)
[2021-04-22] MEDS: VITAMINS A AND D 56.7 GM TUBE TP SCH ×4 (09:00→21:32)
[2021-04-22] MEDS: Z GUARD REMEDY 4 OZ OINT TP SCH ×2 (09:00→21:31)
[2021-04-22] MEDS: NYSTATIN TOP POWDER 15 GM BOTTLE TP SCH ×2 (09:00→21:31)
[2021-04-22] MEDS: SITAGLIPTIN PHOSPHATE 50 MG TABLET GT SCH (09:31)
[2021-04-22] MEDS: LEVETIRACETAM SOL (5 ML) 100 MG/ML UDC GT SCH ×2 (09:31→21:31)
[2021-04-22] MEDS: DOCUSATE SODIUM LIQ 100 MG/10 ML UDC GT SCH ×2 (09:31→17:47)
[2021-04-22] MEDS: FERROUS SULFATE - FOR SA ONLY 330 MG/7.5 ML UDC GT SCH (09:31)
[2021-04-22] MEDS: ACIDOPHILUS/BULGARICUS 1 EACH TAB.CHEW GT SCH ×2 (09:31→17:47)
[2021-04-22] MEDS: ZINC SULFATE 220 MG CAPSULE GT SCH (09:32)
[2021-04-22] MEDS: MULTIVIT W/MINERALS 1 TAB TABLET GT SCH (09:32)
[2021-04-22] MEDS: ASCORBIC ACID 500 MG TABLET GT SCH (09:32)
[2021-04-22] MEDS: LISINOPRIL (5MG) 5 MG TABLET GT SCH (09:32)
--- NOTE | 2021-04-22 10:20 | NUR ---
Virtual rounds done by MILLY Bender, no new order given.
[2021-04-22 11:53] VITALS: BP 97/57
--- NOTE | 2021-04-22 13:37 | NUR ---
Monthly progress notes ,resident is non responsive to tactile stimuli.She has episodes of eye opening but does not track at this time. She received daily visits for sensory stimulation, TV, music, hand massage, audio tapes. These activities wilkl provided as needed.
[2021-04-22 15:03] VITALS: BP 97/57
[2021-04-22] MEDS: GLUCERNA 1.2 1,000 ML BOTTLE GT PRN (17:48)
[2021-04-22 20:36] VITALS: BP 121/65
[2021-04-22] MEDS: ATORVASTATIN 10 MG TABLET GT SCH (21:32)
[2021-04-22] MEDS: INSULIN GLARGINE,BASAGLAR 100 UNIT/ML INSULN.PEN SQ SCH (21:32)
[2021-04-22] MEDS: POLYETHYLENE GLYCOL 3350 17 GM POWD.PACK GT SCH (21:32)
[2021-04-22] MEDS: ENOXAPARIN SODIUM 40 MG/0.4 ML DISP.SYRIN SQ SCH (21:33)
[2021-04-22 22:19] VITALS: BP 121/65
[2021-04-23 01:33] VITALS: BP 106/70
[2021-04-23] MEDS: ALBUTEROL FS 2.5 MG/0.5 ML VIAL.NEB NEB SCH ×4 (02:07→19:06)
[2021-04-23] MEDS: IPRATROPIUM NEB FS 0.5 MG/2.5 ML AMPUL.NEB NEB SCH ×4 (02:07→19:06)
[2021-04-23] MEDS: POLYVINYL ALCOHOL 15 ML BOTTLE EACHEYE SCH ×4 (05:20→23:44)
[2021-04-23] MEDS: OMEPRAZOLE 20 MG CAPSULE.DR GT SCH (05:21)
[2021-04-23] MEDS: DILTIAZEM HCL 30 MG TABLET GT SCH ×3 (05:21→17:39)
[2021-04-23] MEDS: BLOOD SUGAR DIAGNOSTIC 1 EACH STRIP IN SCH ×4 (05:21→23:44)
[2021-04-23] MEDS: INSULIN ASPART/LISPRO 100 UNIT/ML CARTRIDGE SQ PRN ×4 (05:21→23:44)
[2021-04-23 07:09] VITALS: BP 100/63
[2021-04-23] MEDS: MULTIVIT W/MINERALS 1 TAB TABLET GT SCH (09:00)
[2021-04-23] MEDS: ZINC SULFATE 220 MG CAPSULE GT SCH (09:00)
[2021-04-23] MEDS: HYDROGEN PEROXIDE 480 ML BOTTLE TP SCH ×2 (09:00→19:06)
[2021-04-23] MEDS: DOCUSATE SODIUM LIQ 100 MG/10 ML UDC GT SCH ×2 (09:00→17:39)
[2021-04-23] MEDS: Z GUARD REMEDY 4 OZ OINT TP SCH ×2 (09:00→21:31)
[2021-04-23] MEDS: SITAGLIPTIN PHOSPHATE 50 MG TABLET GT SCH (09:00)
[2021-04-23] MEDS: FERROUS SULFATE - FOR SA ONLY 330 MG/7.5 ML UDC GT SCH (09:00)
[2021-04-23] MEDS: ACIDOPHILUS/BULGARICUS 1 EACH TAB.CHEW GT SCH ×2 (09:00→17:39)
[2021-04-23] MEDS: LISINOPRIL (5MG) 5 MG TABLET GT SCH (09:00)
[2021-04-23] MEDS: LEVETIRACETAM SOL (5 ML) 100 MG/ML UDC GT SCH ×2 (09:00→21:31)
[2021-04-23] MEDS: NYSTATIN TOP POWDER 15 GM BOTTLE TP SCH (09:00)
[2021-04-23] MEDS: ASCORBIC ACID 500 MG TABLET GT SCH (09:00)
[2021-04-23] MEDS: VITAMINS A AND D 56.7 GM TUBE TP SCH ×4 (09:00→21:31)
[2021-04-23 12:15] VITALS: BP 99/59
[2021-04-23] MEDS: GLUCERNA 1.2 1,000 ML BOTTLE GT PRN ×2 (13:47→17:51)
--- NOTE | 2021-04-23 14:27 | NUR ---
INTERDISCIPLINARY PLAN OF CARE CONFERENCE took place today. The patients responsible republican/Chavon did not participate. Dr. Capone and Interdisciplinary team discussed the plan of care in detail. Current orders as well as treatments, medications, were reviewed. Result for Covid-19 test done on 04/19/21 is negative.
[2021-04-23 15:59] VITALS: BP 97/55
[2021-04-23 19:40] VITALS: BP 100/67
[2021-04-23] MEDS: ATORVASTATIN 10 MG TABLET GT SCH (21:31)
[2021-04-23] MEDS: POLYETHYLENE GLYCOL 3350 17 GM POWD.PACK GT SCH (21:31)
[2021-04-23] MEDS: INSULIN GLARGINE,BASAGLAR 100 UNIT/ML INSULN.PEN SQ SCH (21:33)
[2021-04-23] MEDS: ENOXAPARIN SODIUM 40 MG/0.4 ML DISP.SYRIN SQ SCH (21:33)
[2021-04-23 22:38] VITALS: BP 100/67
[2021-04-24] VITALS: BP 98/61
[2021-04-24] MEDS: ALBUTEROL FS 2.5 MG/0.5 ML VIAL.NEB NEB SCH ×4 (01:25→20:05)
[2021-04-24] MEDS: IPRATROPIUM NEB FS 0.5 MG/2.5 ML AMPUL.NEB NEB SCH ×4 (01:25→20:05)
[2021-04-24] MEDS: POLYVINYL ALCOHOL 15 ML BOTTLE EACHEYE SCH ×3 (05:22→17:12)
[2021-04-24] MEDS: DILTIAZEM HCL 30 MG TABLET GT SCH ×4 (05:23→17:12)
[2021-04-24] MEDS: BLOOD SUGAR DIAGNOSTIC 1 EACH STRIP IN SCH ×3 (05:23→17:12)
[2021-04-24] MEDS: OMEPRAZOLE 20 MG CAPSULE.DR GT SCH (05:23)
[2021-04-24] MEDS: GLUCERNA 1.2 1,000 ML BOTTLE GT PRN (05:24)
--- NOTE | 2021-04-24 06:23 | NUR ---
PATIENT RECEIVED ON 28% AEROSOL T-TUBE, TOLERATING WITH NO DISTRESS/SOB NOTED. SUCTIONED FOR MINIMAL, THICK, WHITE SECRETIONS. GIVEN IN-LINE TREATMENTS WITH NO ADVERSE REACTIONS. AMBU BAG AT BEDSIDE. TRACH CARE DONE. Addendum: 04/24/21 at 0624 by KAISER LAW RT Amended: Links added.
[2021-04-24 07:19] VITALS: BP 103/63
[2021-04-24] MEDS: HYDROGEN PEROXIDE 480 ML BOTTLE TP SCH ×2 (07:49→21:22)
[2021-04-24 09:35] LABS: BASOPHILS % (AUTO) 0.6 % (0.0-2.0); EOSINOPHILS % (AUTO) 2.8 % (0.0-6.0); HEMATOCRIT 40 % (33-45); LYMPHOCYTES # (AUTO) 3.7 K/uL (0.8-4.8); MEAN CORPUSCULAR HGB CONC 33 g/dl (31.0-36.0); MEAN CORPUSCULAR VOLUME 93 fL (82-100); MONOCYTES # (AUTO) 0.6 K/uL (0.1-1.30); MONOCYTES % (AUTO) 8.2 % (2.0-12.0); NEUTROPHILS # (AUTO) 2.6 K/uL (1.8-8.9); NEUTROPHILS % (AUTO) 36.4 % (43.0-81.0); PLATELET COUNT (AUTO) 327 K/uL (150-450); RED BLOOD CELL COUNT(AUTO) 4.27 MIL/uL (4.0-5.2); WHITE BLOOD COUNT (AUTO) 7.1 K/uL (4.3-11.0)
[2021-04-24] MEDS: ACIDOPHILUS/BULGARICUS 1 EACH TAB.CHEW GT SCH ×2 (09:43→17:11)
[2021-04-24] MEDS: DOCUSATE SODIUM LIQ 100 MG/10 ML UDC GT SCH ×2 (09:43→17:11)
[2021-04-24] MEDS: LEVETIRACETAM SOL (5 ML) 100 MG/ML UDC GT SCH ×2 (09:43→21:03)
[2021-04-24] MEDS: FERROUS SULFATE - FOR SA ONLY 330 MG/7.5 ML UDC GT SCH (09:43)
[2021-04-24] MEDS: LISINOPRIL (5MG) 5 MG TABLET GT SCH (09:43)
[2021-04-24] MEDS: SITAGLIPTIN PHOSPHATE 50 MG TABLET GT SCH (09:43)
[2021-04-24] MEDS: ZINC SULFATE 220 MG CAPSULE GT SCH (09:44)
[2021-04-24] MEDS: MULTIVIT W/MINERALS 1 TAB TABLET GT SCH (09:44)
[2021-04-24] MEDS: Z GUARD REMEDY 4 OZ OINT TP SCH ×2 (09:44→21:03)
[2021-04-24] MEDS: VITAMINS A AND D 56.7 GM TUBE TP SCH ×4 (09:44→21:03)
[2021-04-24] MEDS: ASCORBIC ACID 500 MG TABLET GT SCH (09:44)
[2021-04-24 10:18] LABS: CALCIUM, SERUM 9.3 mg/dL (8.5-10.1); CREATININE 1.3 mg/dL (0.6-1.3); MAGNESIUM 2.9 mg/dL (1.8-2.4); PHOSPHORUS 3.9 mg/dL (2.5-4.9); POTASSIUM 4.9 mmol/L (3.5-5.1)
[2021-04-24 13:08] VITALS: BP 111/65
[2021-04-24] MEDS: INSULIN ASPART/LISPRO 100 UNIT/ML CARTRIDGE SQ PRN ×2 (13:24→17:12)
[2021-04-24 17:12] LABS: EOSINOPHILS % (MANUAL) 3 % (0-4); LYMPHOCYTES % (MANUAL) 53 % (16-48); MONOCYTES % (MANUAL) 2 % (0-11.0); NEUTROPHILS % (MANUAL) 42 (42-76)
[2021-04-24 20:05] VITALS: BP 116/62
[2021-04-24] MEDS: POLYETHYLENE GLYCOL 3350 17 GM POWD.PACK GT SCH (21:03)
[2021-04-24] MEDS: ENOXAPARIN SODIUM 40 MG/0.4 ML DISP.SYRIN SQ SCH (21:03)
[2021-04-24] MEDS: ATORVASTATIN 10 MG TABLET GT SCH (21:03)
[2021-04-24] MEDS: INSULIN GLARGINE,BASAGLAR 100 UNIT/ML INSULN.PEN SQ SCH (21:25)
[2021-04-25] MEDS: POLYVINYL ALCOHOL 15 ML BOTTLE EACHEYE SCH ×5 (00:40→23:55)
[2021-04-25] MEDS: BLOOD SUGAR DIAGNOSTIC 1 EACH STRIP IN SCH ×5 (00:46→23:57)
[2021-04-25] MEDS: INSULIN ASPART/LISPRO 100 UNIT/ML CARTRIDGE SQ PRN ×3 (00:48→23:57)
[2021-04-25 00:50] VITALS: BP 116/62
[2021-04-25] MEDS: ALBUTEROL FS 2.5 MG/0.5 ML VIAL.NEB NEB SCH ×4 (01:37→19:58)
[2021-04-25] MEDS: IPRATROPIUM NEB FS 0.5 MG/2.5 ML AMPUL.NEB NEB SCH ×4 (01:37→19:58)
[2021-04-25] MEDS: DILTIAZEM HCL 30 MG TABLET GT SCH ×5 (05:33→23:56)
[2021-04-25] MEDS: OMEPRAZOLE 20 MG CAPSULE.DR GT SCH (05:33)
[2021-04-25 07:35] VITALS: BP 109/73
[2021-04-25] MEDS: VITAMINS A AND D 56.7 GM TUBE TP SCH ×4 (09:00→20:14)
[2021-04-25] MEDS: Z GUARD REMEDY 4 OZ OINT TP SCH ×2 (09:00→20:14)
[2021-04-25] MEDS: MULTIVIT W/MINERALS 1 TAB TABLET GT SCH (09:00)
[2021-04-25] MEDS: ZINC SULFATE 220 MG CAPSULE GT SCH (09:00)
[2021-04-25] MEDS: DOCUSATE SODIUM LIQ 100 MG/10 ML UDC GT SCH ×2 (09:00→17:32)
[2021-04-25] MEDS: FERROUS SULFATE - FOR SA ONLY 330 MG/7.5 ML UDC GT SCH (09:00)
[2021-04-25] MEDS: LISINOPRIL (5MG) 5 MG TABLET GT SCH (09:00)
[2021-04-25] MEDS: ACIDOPHILUS/BULGARICUS 1 EACH TAB.CHEW GT SCH ×2 (09:00→17:32)
[2021-04-25] MEDS: LEVETIRACETAM SOL (5 ML) 100 MG/ML UDC GT SCH ×2 (09:00→20:14)
[2021-04-25] MEDS: SITAGLIPTIN PHOSPHATE 50 MG TABLET GT SCH (09:00)
[2021-04-25] MEDS: ASCORBIC ACID 500 MG TABLET GT SCH (09:00)
[2021-04-25] MEDS: HYDROGEN PEROXIDE 480 ML BOTTLE TP SCH ×2 (10:20→21:32)
[2021-04-25 11:54] VITALS: BP 121/72
--- NOTE | 2021-04-25 14:30 | NUR ---
Virtual rounds done by Kennedi Bender, no new order given.
[2021-04-25 19:55] VITALS: BP 117/74
[2021-04-25] MEDS: ATORVASTATIN 10 MG TABLET GT SCH (21:10)
[2021-04-25] MEDS: INSULIN GLARGINE,BASAGLAR 100 UNIT/ML INSULN.PEN SQ SCH (21:11)
[2021-04-25] MEDS: POLYETHYLENE GLYCOL 3350 17 GM POWD.PACK GT SCH (21:11)
[2021-04-25] MEDS: ENOXAPARIN SODIUM 40 MG/0.4 ML DISP.SYRIN SQ SCH (21:12)
[2021-04-26] MEDS: IPRATROPIUM NEB FS 0.5 MG/2.5 ML AMPUL.NEB NEB SCH ×4 (01:57→20:17)
[2021-04-26] MEDS: ALBUTEROL FS 2.5 MG/0.5 ML VIAL.NEB NEB SCH ×4 (01:57→20:17)
[2021-04-26] MEDS: GLUCERNA 1.2 1,000 ML BOTTLE GT PRN (04:43)
[2021-04-26] MEDS: POLYVINYL ALCOHOL 15 ML BOTTLE EACHEYE SCH ×3 (05:18→17:01)
[2021-04-26] MEDS: DILTIAZEM HCL 30 MG TABLET GT SCH ×3 (05:18→17:01)
[2021-04-26] MEDS: OMEPRAZOLE 20 MG CAPSULE.DR GT SCH (05:18)
[2021-04-26] MEDS: BLOOD SUGAR DIAGNOSTIC 1 EACH STRIP IN SCH ×3 (05:18→17:08)
[2021-04-26] MEDS: INSULIN ASPART/LISPRO 100 UNIT/ML CARTRIDGE SQ PRN ×3 (05:19→17:08)
[2021-04-26 07:43] VITALS: BP 133/65
[2021-04-26] MEDS: HYDROGEN PEROXIDE 480 ML BOTTLE TP SCH ×2 (08:28→21:13)
[2021-04-26] MEDS: Z GUARD REMEDY 4 OZ OINT TP SCH ×2 (08:48→20:06)
[2021-04-26] MEDS: LEVETIRACETAM SOL (5 ML) 100 MG/ML UDC GT SCH ×2 (08:48→20:06)
[2021-04-26] MEDS: ZINC SULFATE 220 MG CAPSULE GT SCH (08:48)
[2021-04-26] MEDS: DOCUSATE SODIUM LIQ 100 MG/10 ML UDC GT SCH ×2 (08:48→17:01)
[2021-04-26] MEDS: MULTIVIT W/MINERALS 1 TAB TABLET GT SCH (08:48)
[2021-04-26] MEDS: ASCORBIC ACID 500 MG TABLET GT SCH (08:48)
[2021-04-26] MEDS: VITAMINS A AND D 56.7 GM TUBE TP SCH ×4 (08:48→20:06)
[2021-04-26] MEDS: FERROUS SULFATE - FOR SA ONLY 330 MG/7.5 ML UDC GT SCH (08:48)
[2021-04-26] MEDS: SITAGLIPTIN PHOSPHATE 50 MG TABLET GT SCH (08:48)
[2021-04-26] MEDS: ACIDOPHILUS/BULGARICUS 1 EACH TAB.CHEW GT SCH ×2 (08:48→17:01)
[2021-04-26] MEDS: LISINOPRIL (5MG) 5 MG TABLET GT SCH (08:48)
[2021-04-26 13:15] VITALS: BP 127/75
[2021-04-26 20:08] VITALS: BP 101/67
[2021-04-26] MEDS: ATORVASTATIN 10 MG TABLET GT SCH (21:05)
[2021-04-26] MEDS: POLYETHYLENE GLYCOL 3350 17 GM POWD.PACK GT SCH (21:08)
[2021-04-26] MEDS: INSULIN GLARGINE,BASAGLAR 100 UNIT/ML INSULN.PEN SQ SCH (21:09)
[2021-04-26] MEDS: ENOXAPARIN SODIUM 40 MG/0.4 ML DISP.SYRIN SQ SCH (21:09)
[2021-04-27] MEDS: POLYVINYL ALCOHOL 15 ML BOTTLE EACHEYE SCH ×5 (00:20→23:42)
[2021-04-27] MEDS: INSULIN ASPART/LISPRO 100 UNIT/ML CARTRIDGE SQ PRN ×5 (00:21→23:42)
[2021-04-27] MEDS: BLOOD SUGAR DIAGNOSTIC 1 EACH STRIP IN SCH ×5 (00:21→23:42)
[2021-04-27] MEDS: ALBUTEROL FS 2.5 MG/0.5 ML VIAL.NEB NEB SCH ×4 (01:39→20:07)
[2021-04-27] MEDS: IPRATROPIUM NEB FS 0.5 MG/2.5 ML AMPUL.NEB NEB SCH ×4 (01:39→20:07)
[2021-04-27] MEDS: DILTIAZEM HCL 30 MG TABLET GT SCH ×5 (05:13→23:42)
[2021-04-27] MEDS: GLUCERNA 1.2 1,000 ML BOTTLE GT PRN (05:14)
[2021-04-27] MEDS: OMEPRAZOLE 20 MG CAPSULE.DR GT SCH (05:15)
[2021-04-27 07:54] VITALS: BP 103/67
[2021-04-27] MEDS: HYDROGEN PEROXIDE 480 ML BOTTLE TP SCH ×2 (09:13→21:05)
[2021-04-27] MEDS: DOCUSATE SODIUM LIQ 100 MG/10 ML UDC GT SCH ×2 (09:52→17:44)
[2021-04-27] MEDS: SITAGLIPTIN PHOSPHATE 50 MG TABLET GT SCH (09:52)
[2021-04-27] MEDS: LEVETIRACETAM SOL (5 ML) 100 MG/ML UDC GT SCH ×2 (09:52→20:07)
[2021-04-27] MEDS: FERROUS SULFATE - FOR SA ONLY 330 MG/7.5 ML UDC GT SCH (09:52)
[2021-04-27] MEDS: ACIDOPHILUS/BULGARICUS 1 EACH TAB.CHEW GT SCH ×2 (09:52→17:44)
[2021-04-27] MEDS: LISINOPRIL (5MG) 5 MG TABLET GT SCH (09:53)
[2021-04-27] MEDS: ZINC SULFATE 220 MG CAPSULE GT SCH (09:53)
[2021-04-27] MEDS: VITAMINS A AND D 56.7 GM TUBE TP SCH ×4 (09:53→20:07)
[2021-04-27] MEDS: ASCORBIC ACID 500 MG TABLET GT SCH (09:53)
[2021-04-27] MEDS: MULTIVIT W/MINERALS 1 TAB TABLET GT SCH (09:53)
[2021-04-27] MEDS: Z GUARD REMEDY 4 OZ OINT TP SCH ×2 (09:53→20:07)
--- NOTE | 2021-04-27 12:30 | NUR ---
Virtual rounds done by MILLY Bender, reported HbgAIC result 5.5; reviewed current DM regimen with order to decrease Basaglar to 35 units Q HS. Resident's daughter Kaylincisco chung.
[2021-04-27 13:18] VITALS: BP 111/62
[2021-04-27 19:55] VITALS: BP 104/57
[2021-04-27] MEDS: POLYETHYLENE GLYCOL 3350 17 GM POWD.PACK GT SCH (21:10)
[2021-04-27] MEDS: ATORVASTATIN 10 MG TABLET GT SCH (21:10)
[2021-04-27] MEDS: ENOXAPARIN SODIUM 40 MG/0.4 ML DISP.SYRIN SQ SCH (21:12)
[2021-04-27] MEDS: INSULIN GLARGINE,BASAGLAR 100 UNIT/ML INSULN.PEN SQ SCH (21:19)
[2021-04-28] MEDS: ALBUTEROL FS 2.5 MG/0.5 ML VIAL.NEB NEB SCH ×4 (01:45→20:02)
[2021-04-28] MEDS: IPRATROPIUM NEB FS 0.5 MG/2.5 ML AMPUL.NEB NEB SCH ×4 (01:45→20:02)
[2021-04-28] MEDS: OMEPRAZOLE 20 MG CAPSULE.DR GT SCH (05:38)
[2021-04-28] MEDS: POLYVINYL ALCOHOL 15 ML BOTTLE EACHEYE SCH ×3 (05:38→17:44)
[2021-04-28] MEDS: BLOOD SUGAR DIAGNOSTIC 1 EACH STRIP IN SCH ×3 (05:38→17:45)
[2021-04-28] MEDS: DILTIAZEM HCL 30 MG TABLET GT SCH ×3 (05:38→17:45)
[2021-04-28] MEDS: INSULIN ASPART/LISPRO 100 UNIT/ML CARTRIDGE SQ PRN (05:38)
[2021-04-28 07:59] VITALS: BP 105/62
[2021-04-28] MEDS: HYDROGEN PEROXIDE 480 ML BOTTLE TP SCH ×2 (09:25→23:22)
[2021-04-28] MEDS: LEVETIRACETAM SOL (5 ML) 100 MG/ML UDC GT SCH ×2 (09:51→21:04)
[2021-04-28] MEDS: ZINC SULFATE 220 MG CAPSULE GT SCH (09:51)
[2021-04-28] MEDS: FERROUS SULFATE - FOR SA ONLY 330 MG/7.5 ML UDC GT SCH (09:51)
[2021-04-28] MEDS: VITAMINS A AND D 56.7 GM TUBE TP SCH ×4 (09:51→21:04)
[2021-04-28] MEDS: Z GUARD REMEDY 4 OZ OINT TP SCH ×2 (09:51→21:04)
[2021-04-28] MEDS: ASCORBIC ACID 500 MG TABLET GT SCH (09:51)
[2021-04-28] MEDS: SITAGLIPTIN PHOSPHATE 50 MG TABLET GT SCH (09:51)
[2021-04-28] MEDS: ACIDOPHILUS/BULGARICUS 1 EACH TAB.CHEW GT SCH ×2 (09:51→17:44)
[2021-04-28] MEDS: DOCUSATE SODIUM LIQ 100 MG/10 ML UDC GT SCH ×2 (09:51→17:44)
[2021-04-28] MEDS: MULTIVIT W/MINERALS 1 TAB TABLET GT SCH (09:51)
[2021-04-28] MEDS: LISINOPRIL (5MG) 5 MG TABLET GT SCH (09:51)
[2021-04-28] MEDS: GLUCERNA 1.2 1,000 ML BOTTLE GT PRN (13:04)
--- NOTE | 2021-04-28 13:27 | NUR ---
at 1200, BS 56. no SOB noted. asymptomatic. given 80z orange juice. rechecked BS was 71. will continue to monitor any untoward changes. endorsed.
[2021-04-28 13:44] VITALS: BP 136/76
[2021-04-28 20:03] VITALS: BP 134/64
[2021-04-28] MEDS: POLYETHYLENE GLYCOL 3350 17 GM POWD.PACK GT SCH (21:04)
[2021-04-28] MEDS: ATORVASTATIN 10 MG TABLET GT SCH (21:04)
[2021-04-28] MEDS: ENOXAPARIN SODIUM 40 MG/0.4 ML DISP.SYRIN SQ SCH (21:05)
[2021-04-28] MEDS: INSULIN GLARGINE,BASAGLAR 100 UNIT/ML INSULN.PEN SQ SCH (21:27)
[2021-04-29] MEDS: POLYVINYL ALCOHOL 15 ML BOTTLE EACHEYE SCH ×4 (00:13→17:12)
[2021-04-29] MEDS: INSULIN ASPART/LISPRO 100 UNIT/ML CARTRIDGE SQ PRN ×4 (00:14→17:13)
[2021-04-29] MEDS: BLOOD SUGAR DIAGNOSTIC 1 EACH STRIP IN SCH ×4 (00:14→17:13)
[2021-04-29] MEDS: IPRATROPIUM NEB FS 0.5 MG/2.5 ML AMPUL.NEB NEB SCH ×4 (01:59→20:26)
[2021-04-29] MEDS: ALBUTEROL FS 2.5 MG/0.5 ML VIAL.NEB NEB SCH ×4 (01:59→20:26)
[2021-04-29] MEDS: DILTIAZEM HCL 30 MG TABLET GT SCH ×4 (05:23→17:12)
[2021-04-29] MEDS: OMEPRAZOLE 20 MG CAPSULE.DR GT SCH (05:24)
[2021-04-29 08:21] VITALS: BP 125/56
[2021-04-29] MEDS: HYDROGEN PEROXIDE 480 ML BOTTLE TP SCH ×2 (08:52→20:26)
[2021-04-29] MEDS: ACIDOPHILUS/BULGARICUS 1 EACH TAB.CHEW GT SCH ×2 (08:54→17:12)
[2021-04-29] MEDS: LEVETIRACETAM SOL (5 ML) 100 MG/ML UDC GT SCH ×2 (08:54→21:05)
[2021-04-29] MEDS: SITAGLIPTIN PHOSPHATE 50 MG TABLET GT SCH (08:54)
[2021-04-29] MEDS: LISINOPRIL (5MG) 5 MG TABLET GT SCH (08:54)
[2021-04-29] MEDS: FERROUS SULFATE - FOR SA ONLY 330 MG/7.5 ML UDC GT SCH (08:54)
[2021-04-29] MEDS: MULTIVIT W/MINERALS 1 TAB TABLET GT SCH (08:54)
[2021-04-29] MEDS: DOCUSATE SODIUM LIQ 100 MG/10 ML UDC GT SCH ×2 (08:54→17:12)
[2021-04-29] MEDS: ZINC SULFATE 220 MG CAPSULE GT SCH (08:55)
[2021-04-29] MEDS: Z GUARD REMEDY 4 OZ OINT TP SCH ×2 (08:55→21:05)
[2021-04-29] MEDS: VITAMINS A AND D 56.7 GM TUBE TP SCH ×4 (08:55→21:06)
[2021-04-29] MEDS: ASCORBIC ACID 500 MG TABLET GT SCH (08:55)
[2021-04-29 13:48] VITALS: BP 128/66
[2021-04-29] MEDS: GLUCERNA 1.2 1,000 ML BOTTLE GT PRN (14:25)
[2021-04-29 19:54] VITALS: BP 118/55
[2021-04-29] MEDS: POLYETHYLENE GLYCOL 3350 17 GM POWD.PACK GT SCH (21:06)
[2021-04-29] MEDS: ATORVASTATIN 10 MG TABLET GT SCH (21:06)
[2021-04-29] MEDS: ENOXAPARIN SODIUM 40 MG/0.4 ML DISP.SYRIN SQ SCH (21:06)
[2021-04-29] MEDS: INSULIN GLARGINE,BASAGLAR 100 UNIT/ML INSULN.PEN SQ SCH (22:01)
[2021-04-30] MEDS: POLYVINYL ALCOHOL 15 ML BOTTLE EACHEYE SCH ×5 (00:09→23:30)
[2021-04-30] MEDS: BLOOD SUGAR DIAGNOSTIC 1 EACH STRIP IN SCH ×5 (00:10→23:31)
[2021-04-30] MEDS: INSULIN ASPART/LISPRO 100 UNIT/ML CARTRIDGE SQ PRN ×5 (00:11→23:32)
[2021-04-30 00:30] VITALS: BP_SYST 100; BP_DIAS 57; BP_DIAS 60
[2021-04-30] MEDS: ALBUTEROL FS 2.5 MG/0.5 ML VIAL.NEB NEB SCH ×4 (01:27→20:01)
[2021-04-30] MEDS: IPRATROPIUM NEB FS 0.5 MG/2.5 ML AMPUL.NEB NEB SCH ×4 (01:27→20:01)
[2021-04-30] MEDS: OMEPRAZOLE 20 MG CAPSULE.DR GT SCH (05:51)
[2021-04-30] MEDS: DILTIAZEM HCL 30 MG TABLET GT SCH ×5 (05:51→23:30)
[2021-04-30 08:08] VITALS: BP 110/66
[2021-04-30] MEDS: ASCORBIC ACID 500 MG TABLET GT SCH (08:24)
[2021-04-30] MEDS: LISINOPRIL (5MG) 5 MG TABLET GT SCH (08:24)
[2021-04-30] MEDS: LEVETIRACETAM SOL (5 ML) 100 MG/ML UDC GT SCH ×2 (08:24→21:07)
[2021-04-30] MEDS: MULTIVIT W/MINERALS 1 TAB TABLET GT SCH (08:24)
[2021-04-30] MEDS: ACIDOPHILUS/BULGARICUS 1 EACH TAB.CHEW GT SCH ×2 (08:24→17:48)
[2021-04-30] MEDS: SITAGLIPTIN PHOSPHATE 50 MG TABLET GT SCH (08:24)
[2021-04-30] MEDS: DOCUSATE SODIUM LIQ 100 MG/10 ML UDC GT SCH ×2 (08:24→17:48)
[2021-04-30] MEDS: FERROUS SULFATE - FOR SA ONLY 330 MG/7.5 ML UDC GT SCH (08:24)
[2021-04-30] MEDS: ZINC SULFATE 220 MG CAPSULE GT SCH (08:25)
[2021-04-30] MEDS: Z GUARD REMEDY 4 OZ OINT TP SCH ×2 (08:25→21:07)
[2021-04-30] MEDS: VITAMINS A AND D 56.7 GM TUBE TP SCH ×4 (08:25→21:07)
[2021-04-30] MEDS: HYDROGEN PEROXIDE 480 ML BOTTLE TP SCH ×2 (09:58→20:02)
[2021-04-30 13:39] VITALS: BP 120/72
--- NOTE | 2021-04-30 15:15 | NUR ---
Updated Visitation Guidelines & Facility Update: ORACIO informed pt.'s responsible libertarian that, "ORACIO Facility Update: A [facility] employee tested positive for COVID-19 this week. Residents and staff will continue receiving response testing. We will continue to implement [facility] infection control protocols and continue screening employees before every shift. [facility] continues to follow infection control protocols and screen our residents and staff daily for symptoms". ORACIO also informed family about updated visitation guidelines: FOR EACH VISIT, Visitors should be permitted if they show proof of their fully vaccinated status AND regardless of vaccination status, must provide proof of either: A negative PCR test taken within 48 hours prior to entry OR A negative FDA-approved Antigen (rapid test) within 24 hours prior to entry *Visitors who visits for multiple consecutive days are required to show proof of a negative FDA-approved SARS-CoV-2 test at least every third day (E.G. test on day 1 day 4 day 7 an so on)
[2021-04-30 19:53] VITALS: BP 102/65
[2021-04-30] MEDS: POLYETHYLENE GLYCOL 3350 17 GM POWD.PACK GT SCH (21:07)
[2021-04-30] MEDS: ENOXAPARIN SODIUM 40 MG/0.4 ML DISP.SYRIN SQ SCH (21:07)
[2021-04-30] MEDS: ATORVASTATIN 10 MG TABLET GT SCH (21:07)
[2021-04-30] MEDS: INSULIN GLARGINE,BASAGLAR 100 UNIT/ML INSULN.PEN SQ SCH (22:04)
[2021-05-01 00:37] VITALS: BP 134/78
[2021-05-01] MEDS: IPRATROPIUM NEB FS 0.5 MG/2.5 ML AMPUL.NEB NEB SCH ×4 (02:25→19:30)
[2021-05-01] MEDS: ALBUTEROL FS 2.5 MG/0.5 ML VIAL.NEB NEB SCH ×4 (02:25→19:30)
[2021-05-01] MEDS: DILTIAZEM HCL 30 MG TABLET GT SCH ×3 (05:33→17:24)
[2021-05-01] MEDS: BLOOD SUGAR DIAGNOSTIC 1 EACH STRIP IN SCH ×3 (05:33→18:06)
[2021-05-01] MEDS: OMEPRAZOLE 20 MG CAPSULE.DR GT SCH (05:33)
[2021-05-01] MEDS: POLYVINYL ALCOHOL 15 ML BOTTLE EACHEYE SCH ×3 (05:33→17:24)
[2021-05-01] MEDS: INSULIN ASPART/LISPRO 100 UNIT/ML CARTRIDGE SQ PRN ×3 (05:35→18:07)
[2021-05-01 07:33] VITALS: BP 109/58
[2021-05-01] MEDS: HYDROGEN PEROXIDE 480 ML BOTTLE TP SCH ×2 (08:11→20:45)
[2021-05-01] MEDS: DOCUSATE SODIUM LIQ 100 MG/10 ML UDC GT SCH ×2 (08:21→17:24)
[2021-05-01] MEDS: ACIDOPHILUS/BULGARICUS 1 EACH TAB.CHEW GT SCH ×2 (08:21→17:24)
[2021-05-01] MEDS: LEVETIRACETAM SOL (5 ML) 100 MG/ML UDC GT SCH ×2 (08:21→21:26)
[2021-05-01] MEDS: Z GUARD REMEDY 4 OZ OINT TP SCH ×2 (08:21→21:26)
[2021-05-01] MEDS: LISINOPRIL (5MG) 5 MG TABLET GT SCH (08:21)
[2021-05-01] MEDS: FERROUS SULFATE - FOR SA ONLY 330 MG/7.5 ML UDC GT SCH (08:21)
[2021-05-01] MEDS: MULTIVIT W/MINERALS 1 TAB TABLET GT SCH (08:21)
[2021-05-01] MEDS: VITAMINS A AND D 56.7 GM TUBE TP SCH ×4 (08:21→21:27)
[2021-05-01] MEDS: SITAGLIPTIN PHOSPHATE 50 MG TABLET GT SCH (08:21)
[2021-05-01] MEDS: ASCORBIC ACID 500 MG TABLET GT SCH (08:21)
[2021-05-01] MEDS: ZINC SULFATE 220 MG CAPSULE GT SCH (08:21)
[2021-05-01 12:44] VITALS: BP 120/60
[2021-05-01 20:10] VITALS: BP 112/67
[2021-05-01] MEDS: ATORVASTATIN 10 MG TABLET GT SCH (21:27)
[2021-05-01] MEDS: POLYETHYLENE GLYCOL 3350 17 GM POWD.PACK GT SCH (21:27)
[2021-05-01] MEDS: INSULIN GLARGINE,BASAGLAR 100 UNIT/ML INSULN.PEN SQ SCH (22:41)
[2021-05-01] MEDS: ENOXAPARIN SODIUM 40 MG/0.4 ML DISP.SYRIN SQ SCH (22:42)
[2021-05-02] MEDS: POLYVINYL ALCOHOL 15 ML BOTTLE EACHEYE SCH ×5 (00:19→23:20)
[2021-05-02 00:22] VITALS: BP 128/75
[2021-05-02] MEDS: BLOOD SUGAR DIAGNOSTIC 1 EACH STRIP IN SCH ×5 (00:29→23:20)
[2021-05-02] MEDS: DILTIAZEM HCL 30 MG TABLET GT SCH ×5 (00:29→23:20)
[2021-05-02] MEDS: ALBUTEROL FS 2.5 MG/0.5 ML VIAL.NEB NEB SCH ×4 (01:30→20:07)
[2021-05-02] MEDS: IPRATROPIUM NEB FS 0.5 MG/2.5 ML AMPUL.NEB NEB SCH ×4 (01:30→20:07)
[2021-05-02] MEDS: OMEPRAZOLE 20 MG CAPSULE.DR GT SCH (06:19)
[2021-05-02 08:29] VITALS: BP 110/58
[2021-05-02] MEDS: HYDROGEN PEROXIDE 480 ML BOTTLE TP SCH ×2 (09:49→20:07)
[2021-05-02] MEDS: LISINOPRIL (5MG) 5 MG TABLET GT SCH (09:52)
[2021-05-02] MEDS: FERROUS SULFATE - FOR SA ONLY 330 MG/7.5 ML UDC GT SCH (09:52)
[2021-05-02] MEDS: MULTIVIT W/MINERALS 1 TAB TABLET GT SCH (09:52)
[2021-05-02] MEDS: ASCORBIC ACID 500 MG TABLET GT SCH (09:52)
[2021-05-02] MEDS: LEVETIRACETAM SOL (5 ML) 100 MG/ML UDC GT SCH ×2 (09:52→21:14)
[2021-05-02] MEDS: Z GUARD REMEDY 4 OZ OINT TP SCH ×2 (09:52→21:14)
[2021-05-02] MEDS: ZINC SULFATE 220 MG CAPSULE GT SCH (09:52)
[2021-05-02] MEDS: SITAGLIPTIN PHOSPHATE 50 MG TABLET GT SCH (09:52)
[2021-05-02] MEDS: ACIDOPHILUS/BULGARICUS 1 EACH TAB.CHEW GT SCH ×2 (09:52→17:28)
[2021-05-02] MEDS: DOCUSATE SODIUM LIQ 100 MG/10 ML UDC GT SCH ×2 (09:52→17:28)
[2021-05-02] MEDS: VITAMINS A AND D 56.7 GM TUBE TP SCH ×4 (09:53→21:14)
[2021-05-02] MEDS: GLUCERNA 1.2 1,000 ML BOTTLE GT PRN (12:08)
--- NOTE | 2021-05-02 15:00 | NUR ---
Called patients' daughter cristy and made aware that one patient tested positive so will test every patient to follow infection control procedure. Patients' daughter appreciative of the call. She also verbalized that she wanted to visit her mom but she got her covid test in [place] and still waiting for results, she wanted to get e mail regarding guidelines on covid testing prior visiting her mom. composite worker will follow up on this. Reeducated staff regarding contact/droplet precautions and reinforced hand hygiene before and after care.
[2021-05-02 20:19] VITALS: BP 115/69
[2021-05-02] MEDS: ATORVASTATIN 10 MG TABLET GT SCH (21:14)
[2021-05-02] MEDS: POLYETHYLENE GLYCOL 3350 17 GM POWD.PACK GT SCH (21:14)
[2021-05-02] MEDS: INSULIN GLARGINE,BASAGLAR 100 UNIT/ML INSULN.PEN SQ SCH (21:15)
[2021-05-02] MEDS: ENOXAPARIN SODIUM 40 MG/0.4 ML DISP.SYRIN SQ SCH (21:16)
[2021-05-02] MEDS: INSULIN ASPART/LISPRO 100 UNIT/ML CARTRIDGE SQ PRN (23:21)
[2021-05-03 00:27] VITALS: BP 127/69
[2021-05-03] MEDS: ALBUTEROL FS 2.5 MG/0.5 ML VIAL.NEB NEB SCH ×4 (02:02→19:36)
[2021-05-03] MEDS: IPRATROPIUM NEB FS 0.5 MG/2.5 ML AMPUL.NEB NEB SCH ×4 (02:02→19:36)
[2021-05-03] MEDS: OMEPRAZOLE 20 MG CAPSULE.DR GT SCH (05:43)
[2021-05-03] MEDS: POLYVINYL ALCOHOL 15 ML BOTTLE EACHEYE SCH ×4 (05:43→23:33)
[2021-05-03] MEDS: BLOOD SUGAR DIAGNOSTIC 1 EACH STRIP IN SCH ×4 (05:43→23:34)
[2021-05-03] MEDS: DILTIAZEM HCL 30 MG TABLET GT SCH ×4 (05:43→23:33)
[2021-05-03] MEDS: INSULIN ASPART/LISPRO 100 UNIT/ML CARTRIDGE SQ PRN ×3 (05:44→23:35)
[2021-05-03 07:19] VITALS: BP 116/61
[2021-05-03] MEDS: HYDROGEN PEROXIDE 480 ML BOTTLE TP SCH ×2 (09:16→21:10)
[2021-05-03] MEDS: FERROUS SULFATE - FOR SA ONLY 330 MG/7.5 ML UDC GT SCH (09:25)
[2021-05-03] MEDS: LEVETIRACETAM SOL (5 ML) 100 MG/ML UDC GT SCH ×2 (09:25→21:28)
[2021-05-03] MEDS: ACIDOPHILUS/BULGARICUS 1 EACH TAB.CHEW GT SCH ×2 (09:25→17:06)
[2021-05-03] MEDS: DOCUSATE SODIUM LIQ 100 MG/10 ML UDC GT SCH ×2 (09:25→17:06)
[2021-05-03] MEDS: SITAGLIPTIN PHOSPHATE 50 MG TABLET GT SCH (09:25)
[2021-05-03] MEDS: LISINOPRIL (5MG) 5 MG TABLET GT SCH (09:26)
[2021-05-03] MEDS: ZINC SULFATE 220 MG CAPSULE GT SCH (09:26)
[2021-05-03] MEDS: ASCORBIC ACID 500 MG TABLET GT SCH (09:26)
[2021-05-03] MEDS: Z GUARD REMEDY 4 OZ OINT TP SCH ×2 (09:26→21:28)
[2021-05-03] MEDS: MULTIVIT W/MINERALS 1 TAB TABLET GT SCH (09:26)
[2021-05-03] MEDS: VITAMINS A AND D 56.7 GM TUBE TP SCH ×4 (09:26→21:28)
[2021-05-03 12:07] VITALS: BP 133/71
--- NOTE | 2021-05-03 14:40 | NUR ---
Visitation guidelines: SW re-emailed the latest version of visitation guidelines to the pt.'s daughter, Kelly at [email or web address].
[2021-05-03] MEDS: GLUCERNA 1.2 1,000 ML BOTTLE GT PRN (17:00)
[2021-05-03 20:04] VITALS: BP 115/64
[2021-05-03] MEDS: ATORVASTATIN 10 MG TABLET GT SCH (21:28)
[2021-05-03] MEDS: POLYETHYLENE GLYCOL 3350 17 GM POWD.PACK GT SCH (21:28)
[2021-05-03] MEDS: INSULIN GLARGINE,BASAGLAR 100 UNIT/ML INSULN.PEN SQ SCH (21:29)
[2021-05-03] MEDS: ENOXAPARIN SODIUM 40 MG/0.4 ML DISP.SYRIN SQ SCH (21:30)
[2021-05-04] MEDS: IPRATROPIUM NEB FS 0.5 MG/2.5 ML AMPUL.NEB NEB SCH ×4 (01:45→20:04)
[2021-05-04] MEDS: ALBUTEROL FS 2.5 MG/0.5 ML VIAL.NEB NEB SCH ×4 (01:45→20:04)
[2021-05-04] MEDS: POLYVINYL ALCOHOL 15 ML BOTTLE EACHEYE SCH ×4 (05:41→23:38)
[2021-05-04] MEDS: BLOOD SUGAR DIAGNOSTIC 1 EACH STRIP IN SCH ×4 (05:43→23:39)
[2021-05-04] MEDS: OMEPRAZOLE 20 MG CAPSULE.DR GT SCH (05:43)
[2021-05-04] MEDS: DILTIAZEM HCL 30 MG TABLET GT SCH ×4 (05:43→23:39)
[2021-05-04] MEDS: INSULIN ASPART/LISPRO 100 UNIT/ML CARTRIDGE SQ PRN ×4 (05:44→23:40)
[2021-05-04 07:24] VITALS: BP 109/64
[2021-05-04] MEDS: ACIDOPHILUS/BULGARICUS 1 EACH TAB.CHEW GT SCH ×2 (08:24→17:12)
[2021-05-04] MEDS: DOCUSATE SODIUM LIQ 100 MG/10 ML UDC GT SCH ×2 (08:24→17:12)
[2021-05-04] MEDS: SITAGLIPTIN PHOSPHATE 50 MG TABLET GT SCH (08:24)
[2021-05-04] MEDS: LEVETIRACETAM SOL (5 ML) 100 MG/ML UDC GT SCH ×2 (08:24→21:33)
[2021-05-04] MEDS: FERROUS SULFATE - FOR SA ONLY 330 MG/7.5 ML UDC GT SCH (08:24)
[2021-05-04] MEDS: ZINC SULFATE 220 MG CAPSULE GT SCH (08:25)
[2021-05-04] MEDS: ASCORBIC ACID 500 MG TABLET GT SCH (08:25)
[2021-05-04] MEDS: LISINOPRIL (5MG) 5 MG TABLET GT SCH (08:25)
[2021-05-04] MEDS: Z GUARD REMEDY 4 OZ OINT TP SCH ×2 (08:25→21:33)
[2021-05-04] MEDS: MULTIVIT W/MINERALS 1 TAB TABLET GT SCH (08:25)
[2021-05-04] MEDS: VITAMINS A AND D 56.7 GM TUBE TP SCH ×4 (08:25→21:34)
[2021-05-04] MEDS: HYDROGEN PEROXIDE 480 ML BOTTLE TP SCH ×2 (09:21→21:56)
[2021-05-04 13:08] VITALS: BP 107/66
--- NOTE | 2021-05-04 14:38 | NUR ---
ORACIO emailed pt.'s daughter, Kelly reminding her to completed intake paperwork and mail back. Kelly replied that she has received paperwork and will completed it and sent it back soon. Noted. Addendum: 05/05/21 at 1452 by LUIS ALBERTO NARAYANAN ORACIO mailed intake paperwork to Kelly [[address] [facility] [place] [address]] on 04/21/2021.
[2021-05-04 20:37] VITALS: BP 108/70
[2021-05-04] MEDS: ATORVASTATIN 10 MG TABLET GT SCH (21:34)
[2021-05-04] MEDS: POLYETHYLENE GLYCOL 3350 17 GM POWD.PACK GT SCH (21:34)
[2021-05-04] MEDS: INSULIN GLARGINE,BASAGLAR 100 UNIT/ML INSULN.PEN SQ SCH (21:35)
[2021-05-04] MEDS: ENOXAPARIN SODIUM 40 MG/0.4 ML DISP.SYRIN SQ SCH (21:36)
[2021-05-05] MEDS: GLUCERNA 1.2 1,000 ML BOTTLE GT PRN (00:53)
[2021-05-05] MEDS: IPRATROPIUM NEB FS 0.5 MG/2.5 ML AMPUL.NEB NEB SCH ×4 (01:35→19:30)
[2021-05-05] MEDS: ALBUTEROL FS 2.5 MG/0.5 ML VIAL.NEB NEB SCH ×4 (01:35→19:30)
[2021-05-05] MEDS: BLOOD SUGAR DIAGNOSTIC 1 EACH STRIP IN SCH ×3 (05:54→18:31)
[2021-05-05] MEDS: POLYVINYL ALCOHOL 15 ML BOTTLE EACHEYE SCH ×3 (05:54→17:45)
[2021-05-05] MEDS: OMEPRAZOLE 20 MG CAPSULE.DR GT SCH (05:54)
[2021-05-05] MEDS: DILTIAZEM HCL 30 MG TABLET GT SCH ×3 (05:54→17:45)
[2021-05-05] MEDS: INSULIN ASPART/LISPRO 100 UNIT/ML CARTRIDGE SQ PRN ×3 (05:55→18:32)
[2021-05-05 07:32] VITALS: BP 128/83
[2021-05-05] MEDS: HYDROGEN PEROXIDE 480 ML BOTTLE TP SCH ×2 (08:55→21:00)
[2021-05-05] MEDS: DOCUSATE SODIUM LIQ 100 MG/10 ML UDC GT SCH ×2 (09:12→17:45)
[2021-05-05] MEDS: FERROUS SULFATE - FOR SA ONLY 330 MG/7.5 ML UDC GT SCH (09:12)
[2021-05-05] MEDS: MULTIVIT W/MINERALS 1 TAB TABLET GT SCH (09:13)
[2021-05-05] MEDS: LEVETIRACETAM SOL (5 ML) 100 MG/ML UDC GT SCH ×2 (09:13→21:59)
[2021-05-05] MEDS: VITAMINS A AND D 56.7 GM TUBE TP SCH ×4 (09:13→21:59)
[2021-05-05] MEDS: ASCORBIC ACID 500 MG TABLET GT SCH (09:13)
[2021-05-05] MEDS: ZINC SULFATE 220 MG CAPSULE GT SCH (09:13)
[2021-05-05] MEDS: Z GUARD REMEDY 4 OZ OINT TP SCH ×2 (09:13→22:00)
[2021-05-05] MEDS: ACIDOPHILUS/BULGARICUS 1 EACH TAB.CHEW GT SCH ×2 (09:13→17:45)
[2021-05-05] MEDS: LISINOPRIL (5MG) 5 MG TABLET GT SCH (09:13)
[2021-05-05] MEDS: SITAGLIPTIN PHOSPHATE 50 MG TABLET GT SCH (09:13)
[2021-05-05 12:05] VITALS: BP 119/79
[2021-05-05 20:18] VITALS: BP 99/63
[2021-05-05] MEDS: ATORVASTATIN 10 MG TABLET GT SCH (22:00)
[2021-05-05] MEDS: INSULIN GLARGINE,BASAGLAR 100 UNIT/ML INSULN.PEN SQ SCH (22:00)
[2021-05-05] MEDS: POLYETHYLENE GLYCOL 3350 17 GM POWD.PACK GT SCH (22:00)
[2021-05-05] MEDS: ENOXAPARIN SODIUM 40 MG/0.4 ML DISP.SYRIN SQ SCH (22:08)
[2021-05-06] MEDS: POLYVINYL ALCOHOL 15 ML BOTTLE EACHEYE SCH ×4 (00:32→17:02)
[2021-05-06] MEDS: INSULIN ASPART/LISPRO 100 UNIT/ML CARTRIDGE SQ PRN ×4 (00:33→18:01)
[2021-05-06] MEDS: BLOOD SUGAR DIAGNOSTIC 1 EACH STRIP IN SCH ×4 (00:33→18:00)
[2021-05-06] MEDS: IPRATROPIUM NEB FS 0.5 MG/2.5 ML AMPUL.NEB NEB SCH ×4 (02:20→19:30)
[2021-05-06] MEDS: ALBUTEROL FS 2.5 MG/0.5 ML VIAL.NEB NEB SCH ×4 (02:20→19:30)
[2021-05-06] MEDS: DILTIAZEM HCL 30 MG TABLET GT SCH ×4 (05:51→17:02)
[2021-05-06] MEDS: OMEPRAZOLE 20 MG CAPSULE.DR GT SCH (05:52)
[2021-05-06 07:23] VITALS: BP 141/89
[2021-05-06] MEDS: VITAMINS A AND D 56.7 GM TUBE TP SCH ×4 (08:28→20:23)
[2021-05-06] MEDS: DOCUSATE SODIUM LIQ 100 MG/10 ML UDC GT SCH ×2 (08:28→16:38)
[2021-05-06] MEDS: LEVETIRACETAM SOL (5 ML) 100 MG/ML UDC GT SCH ×2 (08:28→20:23)
[2021-05-06] MEDS: ASCORBIC ACID 500 MG TABLET GT SCH (08:28)
[2021-05-06] MEDS: MULTIVIT W/MINERALS 1 TAB TABLET GT SCH (08:28)
[2021-05-06] MEDS: FERROUS SULFATE - FOR SA ONLY 330 MG/7.5 ML UDC GT SCH (08:28)
[2021-05-06] MEDS: Z GUARD REMEDY 4 OZ OINT TP SCH ×2 (08:28→20:23)
[2021-05-06] MEDS: SITAGLIPTIN PHOSPHATE 50 MG TABLET GT SCH (08:28)
[2021-05-06] MEDS: ZINC SULFATE 220 MG CAPSULE GT SCH (08:28)
[2021-05-06] MEDS: ACIDOPHILUS/BULGARICUS 1 EACH TAB.CHEW GT SCH ×2 (08:28→16:38)
[2021-05-06] MEDS: LISINOPRIL (5MG) 5 MG TABLET GT SCH (08:28)
[2021-05-06] MEDS: HYDROGEN PEROXIDE 480 ML BOTTLE TP SCH ×2 (08:33→20:40)
[2021-05-06 12:44] VITALS: BP 133/83
--- NOTE | 2021-05-06 16:38 | NUR ---
ORACIO emailed the daughter, Kelly at [email or web address] to notify them that: Facility Update: Please note that a Sub-Acute employee tested positive for COVID-19 this week. Residents and staff will continue receiving response testing as outlined by [facility] Department of Public Health. We will continue to implement [facility] infection control protocols and continue screening employees before every shift. [facility] continues to follow infection control protocols and screen our residents and staff daily for symptoms.
[2021-05-06 19:21] VITALS: BP 119/66
[2021-05-06] MEDS: POLYETHYLENE GLYCOL 3350 17 GM POWD.PACK GT SCH (21:05)
[2021-05-06] MEDS: ATORVASTATIN 10 MG TABLET GT SCH (21:05)
[2021-05-06] MEDS: INSULIN GLARGINE,BASAGLAR 100 UNIT/ML INSULN.PEN SQ SCH (21:06)
[2021-05-06] MEDS: ENOXAPARIN SODIUM 40 MG/0.4 ML DISP.SYRIN SQ SCH (21:07)
[2021-05-07 00:49] VITALS: BP 144/67
[2021-05-07] MEDS: POLYVINYL ALCOHOL 15 ML BOTTLE EACHEYE SCH ×4 (00:50→17:12)
[2021-05-07] MEDS: DILTIAZEM HCL 30 MG TABLET GT SCH ×4 (00:51→17:12)
[2021-05-07] MEDS: BLOOD SUGAR DIAGNOSTIC 1 EACH STRIP IN SCH ×4 (00:51→17:59)
[2021-05-07] MEDS: INSULIN ASPART/LISPRO 100 UNIT/ML CARTRIDGE SQ PRN ×4 (00:52→18:00)
[2021-05-07] MEDS: ALBUTEROL FS 2.5 MG/0.5 ML VIAL.NEB NEB SCH ×4 (01:47→20:07)
[2021-05-07] MEDS: IPRATROPIUM NEB FS 0.5 MG/2.5 ML AMPUL.NEB NEB SCH ×4 (01:47→20:07)
[2021-05-07] MEDS: OMEPRAZOLE 20 MG CAPSULE.DR GT SCH (05:31)
[2021-05-07] MEDS: GLUCERNA 1.2 1,000 ML BOTTLE GT PRN (06:08)
[2021-05-07 07:40] VITALS: BP 117/72
[2021-05-07] MEDS: LEVETIRACETAM SOL (5 ML) 100 MG/ML UDC GT SCH ×2 (08:06→21:49)
[2021-05-07] MEDS: FERROUS SULFATE - FOR SA ONLY 330 MG/7.5 ML UDC GT SCH (08:06)
[2021-05-07] MEDS: SITAGLIPTIN PHOSPHATE 50 MG TABLET GT SCH (08:06)
[2021-05-07] MEDS: DOCUSATE SODIUM LIQ 100 MG/10 ML UDC GT SCH ×2 (08:06→17:12)
[2021-05-07] MEDS: ACIDOPHILUS/BULGARICUS 1 EACH TAB.CHEW GT SCH ×2 (08:06→17:12)
[2021-05-07] MEDS: Z GUARD REMEDY 4 OZ OINT TP SCH ×2 (08:07→21:49)
[2021-05-07] MEDS: LISINOPRIL (5MG) 5 MG TABLET GT SCH (08:07)
[2021-05-07] MEDS: VITAMINS A AND D 56.7 GM TUBE TP SCH ×4 (08:07→21:49)
[2021-05-07] MEDS: MULTIVIT W/MINERALS 1 TAB TABLET GT SCH (08:07)
[2021-05-07] MEDS: ASCORBIC ACID 500 MG TABLET GT SCH (08:07)
[2021-05-07] MEDS: ZINC SULFATE 220 MG CAPSULE GT SCH (08:07)
[2021-05-07] MEDS: HYDROGEN PEROXIDE 480 ML BOTTLE TP SCH ×2 (09:26→20:07)
[2021-05-07 11:49] VITALS: BP 98/59
--- NOTE | 2021-05-07 16:43 | NUR ---
Intake Paperwork: Water Rights Specialist met with the resident's responsible republican/Daughter, Kelly Wong [phone] to complete Intake paperwork: (Patient Right's Acknowledgement, Documentation of Preferred Intensity of Care, Conditions of Admission, CDPH Agreement, and Voluntary Prior Express Consent form). SW provided patient's family with a copy of the Bill of Rights, patient information guide and [facility] resident and family guidelines. Kelly wishes the resident be Maximum treatment (No blood Transfusions) and No CPR. Kelly is the Conservator of the person and a copy of the Conservatorship paperwork has been provided by Kelly and filed in the chart. Admission paperwork was placed into the resident's chart.
[2021-05-07 19:44] VITALS: BP 106/68
[2021-05-07] MEDS: POLYETHYLENE GLYCOL 3350 17 GM POWD.PACK GT SCH (21:49)
[2021-05-07] MEDS: ATORVASTATIN 10 MG TABLET GT SCH (21:49)
[2021-05-07] MEDS: INSULIN GLARGINE,BASAGLAR 100 UNIT/ML INSULN.PEN SQ SCH (21:50)
[2021-05-07] MEDS: ENOXAPARIN SODIUM 40 MG/0.4 ML DISP.SYRIN SQ SCH (21:51)
[2021-05-08] MEDS: POLYVINYL ALCOHOL 15 ML BOTTLE EACHEYE SCH ×4 (00:07→17:38)
[2021-05-08] MEDS: DILTIAZEM HCL 30 MG TABLET GT SCH ×4 (00:08→17:39)
[2021-05-08] MEDS: INSULIN ASPART/LISPRO 100 UNIT/ML CARTRIDGE SQ PRN ×4 (00:08→17:39)
[2021-05-08] MEDS: BLOOD SUGAR DIAGNOSTIC 1 EACH STRIP IN SCH ×4 (00:08→17:39)
[2021-05-08 00:21] VITALS: BP 122/70
[2021-05-08] MEDS: ALBUTEROL FS 2.5 MG/0.5 ML VIAL.NEB NEB SCH ×4 (02:28→19:59)
[2021-05-08] MEDS: IPRATROPIUM NEB FS 0.5 MG/2.5 ML AMPUL.NEB NEB SCH ×4 (02:28→19:59)
[2021-05-08] MEDS: OMEPRAZOLE 20 MG CAPSULE.DR GT SCH (06:08)
[2021-05-08] MEDS: GLUCERNA 1.2 1,000 ML BOTTLE GT PRN (06:08)
[2021-05-08 07:38] VITALS: BP 119/68
[2021-05-08] MEDS: SITAGLIPTIN PHOSPHATE 50 MG TABLET GT SCH (08:33)
[2021-05-08] MEDS: DOCUSATE SODIUM LIQ 100 MG/10 ML UDC GT SCH ×2 (08:33→17:38)
[2021-05-08] MEDS: FERROUS SULFATE - FOR SA ONLY 330 MG/7.5 ML UDC GT SCH (08:33)
[2021-05-08] MEDS: LEVETIRACETAM SOL (5 ML) 100 MG/ML UDC GT SCH ×2 (08:33→21:42)
[2021-05-08] MEDS: ACIDOPHILUS/BULGARICUS 1 EACH TAB.CHEW GT SCH ×2 (08:33→17:38)
[2021-05-08] MEDS: Z GUARD REMEDY 4 OZ OINT TP SCH ×2 (08:34→21:42)
[2021-05-08] MEDS: ASCORBIC ACID 500 MG TABLET GT SCH (08:34)
[2021-05-08] MEDS: VITAMINS A AND D 56.7 GM TUBE TP SCH ×4 (08:34→21:42)
[2021-05-08] MEDS: LISINOPRIL (5MG) 5 MG TABLET GT SCH (08:34)
[2021-05-08] MEDS: MULTIVIT W/MINERALS 1 TAB TABLET GT SCH (08:34)
[2021-05-08] MEDS: ZINC SULFATE 220 MG CAPSULE GT SCH (08:34)
[2021-05-08] MEDS: HYDROGEN PEROXIDE 480 ML BOTTLE TP SCH ×2 (09:02→21:08)
[2021-05-08 13:05] VITALS: BP 106/50
--- NOTE | 2021-05-08 15:02 | NUR ---
Spoke to Chavon daughter of Marvin Ayala and asked if she wants to see her mother through Face time.unfortunately i cannot connect with her at all. Phone ring but whenever she pick it up, it will be disconnected. Tried to call her again through regular phone but she didn't answer anymore.
[2021-05-08 20:07] VITALS: BP 105/79
[2021-05-08] MEDS: ENOXAPARIN SODIUM 40 MG/0.4 ML DISP.SYRIN SQ SCH (21:42)
[2021-05-08] MEDS: ATORVASTATIN 10 MG TABLET GT SCH (21:42)
[2021-05-08] MEDS: POLYETHYLENE GLYCOL 3350 17 GM POWD.PACK GT SCH (21:42)
[2021-05-08] MEDS: INSULIN GLARGINE,BASAGLAR 100 UNIT/ML INSULN.PEN SQ SCH (21:57)
[2021-05-09 00:11] VITALS: BP 118/70
[2021-05-09] MEDS: POLYVINYL ALCOHOL 15 ML BOTTLE EACHEYE SCH ×5 (00:13→23:24)
[2021-05-09] MEDS: BLOOD SUGAR DIAGNOSTIC 1 EACH STRIP IN SCH ×5 (00:14→23:25)
[2021-05-09] MEDS: DILTIAZEM HCL 30 MG TABLET GT SCH ×5 (00:14→23:24)
[2021-05-09] MEDS: INSULIN ASPART/LISPRO 100 UNIT/ML CARTRIDGE SQ PRN ×4 (00:15→23:25)
[2021-05-09] MEDS: IPRATROPIUM NEB FS 0.5 MG/2.5 ML AMPUL.NEB NEB SCH ×4 (01:46→20:06)
[2021-05-09] MEDS: ALBUTEROL FS 2.5 MG/0.5 ML VIAL.NEB NEB SCH ×4 (01:46→20:06)
[2021-05-09] MEDS: OMEPRAZOLE 20 MG CAPSULE.DR GT SCH (05:55)
[2021-05-09 07:22] VITALS: BP 132/76
[2021-05-09] MEDS: HYDROGEN PEROXIDE 480 ML BOTTLE TP SCH ×2 (08:13→21:12)
[2021-05-09] MEDS: ASCORBIC ACID 500 MG TABLET GT SCH (09:00)
[2021-05-09] MEDS: SITAGLIPTIN PHOSPHATE 50 MG TABLET GT SCH (09:00)
[2021-05-09] MEDS: LISINOPRIL (5MG) 5 MG TABLET GT SCH (09:00)
[2021-05-09] MEDS: LEVETIRACETAM SOL (5 ML) 100 MG/ML UDC GT SCH ×2 (09:00→21:47)
[2021-05-09] MEDS: ZINC SULFATE 220 MG CAPSULE GT SCH (09:00)
[2021-05-09] MEDS: ACIDOPHILUS/BULGARICUS 1 EACH TAB.CHEW GT SCH ×2 (09:00→17:13)
[2021-05-09] MEDS: DOCUSATE SODIUM LIQ 100 MG/10 ML UDC GT SCH ×2 (09:00→17:13)
[2021-05-09] MEDS: VITAMINS A AND D 56.7 GM TUBE TP SCH ×4 (09:00→21:48)
[2021-05-09] MEDS: FERROUS SULFATE - FOR SA ONLY 330 MG/7.5 ML UDC GT SCH (09:00)
[2021-05-09] MEDS: MULTIVIT W/MINERALS 1 TAB TABLET GT SCH (09:00)
[2021-05-09] MEDS: Z GUARD REMEDY 4 OZ OINT TP SCH ×2 (09:00→21:48)
[2021-05-09 11:51] VITALS: BP 126/72
[2021-05-09] MEDS: GLUCERNA 1.2 1,000 ML BOTTLE GT PRN (16:53)
[2021-05-09 20:19] VITALS: BP 117/58
[2021-05-09] MEDS: POLYETHYLENE GLYCOL 3350 17 GM POWD.PACK GT SCH (21:48)
[2021-05-09] MEDS: ATORVASTATIN 10 MG TABLET GT SCH (21:48)
[2021-05-09] MEDS: ENOXAPARIN SODIUM 40 MG/0.4 ML DISP.SYRIN SQ SCH (21:50)
[2021-05-09] MEDS: INSULIN GLARGINE,BASAGLAR 100 UNIT/ML INSULN.PEN SQ SCH (21:50)
[2021-05-10] MEDS: ALBUTEROL FS 2.5 MG/0.5 ML VIAL.NEB NEB SCH ×4 (01:50→20:08)
[2021-05-10] MEDS: IPRATROPIUM NEB FS 0.5 MG/2.5 ML AMPUL.NEB NEB SCH ×4 (01:50→20:08)
[2021-05-10] MEDS: POLYVINYL ALCOHOL 15 ML BOTTLE EACHEYE SCH ×4 (05:31→23:28)
[2021-05-10] MEDS: INSULIN ASPART/LISPRO 100 UNIT/ML CARTRIDGE SQ PRN ×3 (05:32→18:32)
[2021-05-10] MEDS: BLOOD SUGAR DIAGNOSTIC 1 EACH STRIP IN SCH ×4 (05:32→23:29)
[2021-05-10] MEDS: OMEPRAZOLE 20 MG CAPSULE.DR GT SCH (05:32)
[2021-05-10] MEDS: DILTIAZEM HCL 30 MG TABLET GT SCH ×4 (05:32→23:29)
[2021-05-10 07:50] VITALS: BP 103/60
[2021-05-10] MEDS: HYDROGEN PEROXIDE 480 ML BOTTLE TP SCH ×2 (09:00→21:24)
[2021-05-10] MEDS: FERROUS SULFATE - FOR SA ONLY 330 MG/7.5 ML UDC GT SCH (09:08)
[2021-05-10] MEDS: SITAGLIPTIN PHOSPHATE 50 MG TABLET GT SCH (09:08)
[2021-05-10] MEDS: DOCUSATE SODIUM LIQ 100 MG/10 ML UDC GT SCH ×2 (09:08→16:55)
[2021-05-10] MEDS: ACIDOPHILUS/BULGARICUS 1 EACH TAB.CHEW GT SCH ×2 (09:09→16:55)
[2021-05-10] MEDS: LEVETIRACETAM SOL (5 ML) 100 MG/ML UDC GT SCH ×2 (09:09→21:30)
[2021-05-10] MEDS: MULTIVIT W/MINERALS 1 TAB TABLET GT SCH (09:11)
[2021-05-10] MEDS: ZINC SULFATE 220 MG CAPSULE GT SCH (09:11)
[2021-05-10] MEDS: ASCORBIC ACID 500 MG TABLET GT SCH (09:11)
[2021-05-10] MEDS: VITAMINS A AND D 56.7 GM TUBE TP SCH ×4 (09:11→21:31)
[2021-05-10] MEDS: Z GUARD REMEDY 4 OZ OINT TP SCH ×2 (09:11→21:30)
[2021-05-10] MEDS: LISINOPRIL (5MG) 5 MG TABLET GT SCH (09:12)
[2021-05-10 13:30] VITALS: BP 131/62
--- NOTE | 2021-05-10 16:02 | NUR ---
ORACIO emailed the daughter, Kelly at [employer] to notify them that: Facility Update: Please note that a Sub-Acute employee tested positive for COVID-19 this weekend and a Sub-Acute pt. tested positive today. Residents and staff will continue receiving response testing as outlined by [facility] Department of Public Health. [facility] will continue to implement [facility] infection control protocols and continue screening employees before every shift. [facility] continues to follow infection control protocols and screen our residents and staff daily for symptoms.
[2021-05-10] MEDS: GLUCERNA 1.2 1,000 ML BOTTLE GT PRN (16:57)
[2021-05-10 20:27] VITALS: BP 106/61
[2021-05-10] MEDS: ATORVASTATIN 10 MG TABLET GT SCH (21:31)
[2021-05-10] MEDS: POLYETHYLENE GLYCOL 3350 17 GM POWD.PACK GT SCH (21:31)
[2021-05-10] MEDS: INSULIN GLARGINE,BASAGLAR 100 UNIT/ML INSULN.PEN SQ SCH (21:32)
[2021-05-10] MEDS: ENOXAPARIN SODIUM 40 MG/0.4 ML DISP.SYRIN SQ SCH (21:32)
[2021-05-11] MEDS: ALBUTEROL FS 2.5 MG/0.5 ML VIAL.NEB NEB SCH ×3 (01:33→20:23)
[2021-05-11] MEDS: IPRATROPIUM NEB FS 0.5 MG/2.5 ML AMPUL.NEB NEB SCH ×3 (01:33→20:23)
[2021-05-11] MEDS: DILTIAZEM HCL 30 MG TABLET GT SCH ×4 (06:01→23:16)
[2021-05-11] MEDS: POLYVINYL ALCOHOL 15 ML BOTTLE EACHEYE SCH ×4 (06:01→23:16)
[2021-05-11] MEDS: OMEPRAZOLE 20 MG CAPSULE.DR GT SCH (06:01)
[2021-05-11] MEDS: BLOOD SUGAR DIAGNOSTIC 1 EACH STRIP IN SCH ×4 (06:01→23:17)
[2021-05-11] MEDS: INSULIN ASPART/LISPRO 100 UNIT/ML CARTRIDGE SQ PRN ×3 (06:02→23:17)
[2021-05-11 07:42] VITALS: BP 114/59
[2021-05-11] MEDS: ASCORBIC ACID 500 MG TABLET GT SCH (08:05)
[2021-05-11] MEDS: ACIDOPHILUS/BULGARICUS 1 EACH TAB.CHEW GT SCH ×2 (08:05→17:25)
[2021-05-11] MEDS: MULTIVIT W/MINERALS 1 TAB TABLET GT SCH (08:05)
[2021-05-11] MEDS: VITAMINS A AND D 56.7 GM TUBE TP SCH ×4 (08:05→21:40)
[2021-05-11] MEDS: FERROUS SULFATE - FOR SA ONLY 330 MG/7.5 ML UDC GT SCH (08:05)
[2021-05-11] MEDS: Z GUARD REMEDY 4 OZ OINT TP SCH ×2 (08:05→21:40)
[2021-05-11] MEDS: SITAGLIPTIN PHOSPHATE 50 MG TABLET GT SCH (08:05)
[2021-05-11] MEDS: ZINC SULFATE 220 MG CAPSULE GT SCH (08:05)
[2021-05-11] MEDS: DOCUSATE SODIUM LIQ 100 MG/10 ML UDC GT SCH ×2 (08:05→17:25)
[2021-05-11] MEDS: HYDROGEN PEROXIDE 480 ML BOTTLE TP SCH ×3 (08:05→21:16)
[2021-05-11] MEDS: LEVETIRACETAM SOL (5 ML) 100 MG/ML UDC GT SCH ×2 (08:05→21:40)
[2021-05-11] MEDS: LISINOPRIL (5MG) 5 MG TABLET GT SCH (08:06)
[2021-05-11 12:10] VITALS: BP 146/76
[2021-05-11] MEDS: GLUCERNA 1.2 1,000 ML BOTTLE GT PRN (13:08)
[2021-05-11 19:13] VITALS: BP 101/62
[2021-05-11] MEDS: ATORVASTATIN 10 MG TABLET GT SCH (21:40)
[2021-05-11] MEDS: POLYETHYLENE GLYCOL 3350 17 GM POWD.PACK GT SCH (21:40)
[2021-05-11] MEDS: INSULIN GLARGINE,BASAGLAR 100 UNIT/ML INSULN.PEN SQ SCH (21:41)
[2021-05-11] MEDS: ENOXAPARIN SODIUM 40 MG/0.4 ML DISP.SYRIN SQ SCH (21:42)
[2021-05-12] MEDS: IPRATROPIUM NEB FS 0.5 MG/2.5 ML AMPUL.NEB NEB SCH ×4 (01:43→20:20)
[2021-05-12] MEDS: ALBUTEROL FS 2.5 MG/0.5 ML VIAL.NEB NEB SCH ×4 (01:43→20:20)
[2021-05-12] MEDS: POLYVINYL ALCOHOL 15 ML BOTTLE EACHEYE SCH ×4 (05:47→23:29)
[2021-05-12] MEDS: OMEPRAZOLE 20 MG CAPSULE.DR GT SCH (05:47)
[2021-05-12] MEDS: DILTIAZEM HCL 30 MG TABLET GT SCH ×4 (05:47→23:29)
[2021-05-12] MEDS: BLOOD SUGAR DIAGNOSTIC 1 EACH STRIP IN SCH ×4 (05:47→23:29)
[2021-05-12] MEDS: INSULIN ASPART/LISPRO 100 UNIT/ML CARTRIDGE SQ PRN ×4 (05:48→23:30)
[2021-05-12 07:59] VITALS: BP 117/65
[2021-05-12] MEDS: HYDROGEN PEROXIDE 480 ML BOTTLE TP SCH ×2 (08:17→23:49)
[2021-05-12] MEDS: SITAGLIPTIN PHOSPHATE 50 MG TABLET GT SCH (09:00)
[2021-05-12] MEDS: DOCUSATE SODIUM LIQ 100 MG/10 ML UDC GT SCH ×2 (09:00→17:45)
[2021-05-12] MEDS: FERROUS SULFATE - FOR SA ONLY 330 MG/7.5 ML UDC GT SCH (09:00)
[2021-05-12] MEDS: ACIDOPHILUS/BULGARICUS 1 EACH TAB.CHEW GT SCH ×2 (09:00→17:45)
[2021-05-12] MEDS: VITAMINS A AND D 56.7 GM TUBE TP SCH ×4 (09:00→21:36)
[2021-05-12] MEDS: LEVETIRACETAM SOL (5 ML) 100 MG/ML UDC GT SCH ×2 (09:00→21:36)
[2021-05-12] MEDS: ZINC SULFATE 220 MG CAPSULE GT SCH (09:00)
[2021-05-12] MEDS: Z GUARD REMEDY 4 OZ OINT TP SCH ×2 (09:00→21:36)
[2021-05-12] MEDS: ASCORBIC ACID 500 MG TABLET GT SCH (09:00)
[2021-05-12] MEDS: MULTIVIT W/MINERALS 1 TAB TABLET GT SCH (09:00)
[2021-05-12] MEDS: LISINOPRIL (5MG) 5 MG TABLET GT SCH (09:00)
[2021-05-12 11:26] VITALS: BP 126/69
[2021-05-12 12:00] VITALS: BP 100/64
--- NOTE | 2021-05-12 12:53 | NUR ---
Called the daughter if she would like to see her mother she agreed and saw her mother spoke to he while her mom was so sleepy on Face time.
[2021-05-12] MEDS: GLUCERNA 1.2 1,000 ML BOTTLE GT PRN (18:27)
[2021-05-12 20:50] VITALS: BP 124/84
[2021-05-12] MEDS: POLYETHYLENE GLYCOL 3350 17 GM POWD.PACK GT SCH (21:36)
[2021-05-12] MEDS: ATORVASTATIN 10 MG TABLET GT SCH (21:36)
[2021-05-12] MEDS: INSULIN GLARGINE,BASAGLAR 100 UNIT/ML INSULN.PEN SQ SCH (21:37)
[2021-05-12] MEDS: ENOXAPARIN SODIUM 40 MG/0.4 ML DISP.SYRIN SQ SCH (21:38)
[2021-05-13 00:20] VITALS: BP 135/64
[2021-05-13] MEDS: IPRATROPIUM NEB FS 0.5 MG/2.5 ML AMPUL.NEB NEB SCH ×4 (02:10→20:03)
[2021-05-13] MEDS: ALBUTEROL FS 2.5 MG/0.5 ML VIAL.NEB NEB SCH ×4 (02:10→20:03)
[2021-05-13] MEDS: POLYVINYL ALCOHOL 15 ML BOTTLE EACHEYE SCH ×4 (05:47→23:09)
[2021-05-13] MEDS: BLOOD SUGAR DIAGNOSTIC 1 EACH STRIP IN SCH ×4 (05:48→23:09)
[2021-05-13] MEDS: DILTIAZEM HCL 30 MG TABLET GT SCH ×4 (05:48→23:16)
[2021-05-13] MEDS: OMEPRAZOLE 20 MG CAPSULE.DR GT SCH (05:48)
[2021-05-13] MEDS: INSULIN ASPART/LISPRO 100 UNIT/ML CARTRIDGE SQ PRN ×4 (05:48→23:09)
[2021-05-13 07:47] VITALS: BP 124/67
[2021-05-13] MEDS: HYDROGEN PEROXIDE 480 ML BOTTLE TP SCH ×2 (08:02→20:03)
[2021-05-13] MEDS: LEVETIRACETAM SOL (5 ML) 100 MG/ML UDC GT SCH ×2 (08:48→21:21)
[2021-05-13] MEDS: SITAGLIPTIN PHOSPHATE 50 MG TABLET GT SCH (08:48)
[2021-05-13] MEDS: DOCUSATE SODIUM LIQ 100 MG/10 ML UDC GT SCH ×2 (08:48→17:36)
[2021-05-13] MEDS: FERROUS SULFATE - FOR SA ONLY 330 MG/7.5 ML UDC GT SCH (08:48)
[2021-05-13] MEDS: LISINOPRIL (5MG) 5 MG TABLET GT SCH (08:49)
[2021-05-13] MEDS: ACIDOPHILUS/BULGARICUS 1 EACH TAB.CHEW GT SCH ×2 (08:49→17:36)
[2021-05-13] MEDS: MULTIVIT W/MINERALS 1 TAB TABLET GT SCH (08:50)
[2021-05-13] MEDS: ASCORBIC ACID 500 MG TABLET GT SCH (08:51)
[2021-05-13] MEDS: ZINC SULFATE 220 MG CAPSULE GT SCH (08:51)
[2021-05-13] MEDS: VITAMINS A AND D 56.7 GM TUBE TP SCH ×4 (08:51→21:21)
[2021-05-13] MEDS: Z GUARD REMEDY 4 OZ OINT TP SCH ×2 (08:51→21:21)
[2021-05-13 12:37] VITALS: BP 118/72
[2021-05-13] MEDS: GLUCERNA 1.2 1,000 ML BOTTLE GT PRN (14:24)
[2021-05-13 19:44] VITALS: BP 129/65
[2021-05-13] MEDS: ATORVASTATIN 10 MG TABLET GT SCH (21:21)
[2021-05-13] MEDS: POLYETHYLENE GLYCOL 3350 17 GM POWD.PACK GT SCH (21:21)
[2021-05-13] MEDS: INSULIN GLARGINE,BASAGLAR 100 UNIT/ML INSULN.PEN SQ SCH (21:22)
[2021-05-13] MEDS: ENOXAPARIN SODIUM 40 MG/0.4 ML DISP.SYRIN SQ SCH (21:23)
[2021-05-14 00:05] VITALS: BP 112/70
[2021-05-14] MEDS: ALBUTEROL FS 2.5 MG/0.5 ML VIAL.NEB NEB SCH ×4 (02:04→19:21)
[2021-05-14] MEDS: IPRATROPIUM NEB FS 0.5 MG/2.5 ML AMPUL.NEB NEB SCH ×4 (02:04→19:21)
[2021-05-14] MEDS: POLYVINYL ALCOHOL 15 ML BOTTLE EACHEYE SCH ×4 (05:07→23:27)
[2021-05-14] MEDS: INSULIN ASPART/LISPRO 100 UNIT/ML CARTRIDGE SQ PRN ×4 (05:08→23:28)
[2021-05-14] MEDS: OMEPRAZOLE 20 MG CAPSULE.DR GT SCH (05:08)
[2021-05-14] MEDS: DILTIAZEM HCL 30 MG TABLET GT SCH ×4 (05:08→23:27)
[2021-05-14] MEDS: BLOOD SUGAR DIAGNOSTIC 1 EACH STRIP IN SCH ×4 (05:08→23:27)
[2021-05-14 07:55] VITALS: BP 104/69
[2021-05-14] MEDS: DOCUSATE SODIUM LIQ 100 MG/10 ML UDC GT SCH ×2 (08:52→16:46)
[2021-05-14] MEDS: FERROUS SULFATE - FOR SA ONLY 330 MG/7.5 ML UDC GT SCH (08:52)
[2021-05-14] MEDS: SITAGLIPTIN PHOSPHATE 50 MG TABLET GT SCH (08:53)
[2021-05-14] MEDS: LEVETIRACETAM SOL (5 ML) 100 MG/ML UDC GT SCH ×2 (08:53→20:26)
[2021-05-14] MEDS: ACIDOPHILUS/BULGARICUS 1 EACH TAB.CHEW GT SCH ×2 (08:54→16:46)
[2021-05-14] MEDS: LISINOPRIL (5MG) 5 MG TABLET GT SCH (08:54)
[2021-05-14] MEDS: ASCORBIC ACID 500 MG TABLET GT SCH (08:55)
[2021-05-14] MEDS: VITAMINS A AND D 56.7 GM TUBE TP SCH ×4 (08:55→20:26)
[2021-05-14] MEDS: Z GUARD REMEDY 4 OZ OINT TP SCH ×2 (08:55→20:26)
[2021-05-14] MEDS: MULTIVIT W/MINERALS 1 TAB TABLET GT SCH (08:55)
[2021-05-14] MEDS: ZINC SULFATE 220 MG CAPSULE GT SCH (08:55)
[2021-05-14] MEDS: HYDROGEN PEROXIDE 480 ML BOTTLE TP SCH ×2 (09:06→19:22)
[2021-05-14] MEDS: GLUCERNA 1.2 1,000 ML BOTTLE GT PRN (18:51)
[2021-05-14 19:24] VITALS: BP 116/62
[2021-05-14] MEDS: INSULIN GLARGINE,BASAGLAR 100 UNIT/ML INSULN.PEN SQ SCH (21:03)
[2021-05-14] MEDS: ATORVASTATIN 10 MG TABLET GT SCH (21:03)
[2021-05-14] MEDS: POLYETHYLENE GLYCOL 3350 17 GM POWD.PACK GT SCH (21:03)
[2021-05-14] MEDS: ENOXAPARIN SODIUM 40 MG/0.4 ML DISP.SYRIN SQ SCH (21:04)
[2021-05-15 01:04] VITALS: BP 114/58
[2021-05-15] MEDS: IPRATROPIUM NEB FS 0.5 MG/2.5 ML AMPUL.NEB NEB SCH ×4 (01:40→19:04)
[2021-05-15] MEDS: ALBUTEROL FS 2.5 MG/0.5 ML VIAL.NEB NEB SCH ×4 (01:40→19:04)
[2021-05-15] MEDS: POLYVINYL ALCOHOL 15 ML BOTTLE EACHEYE SCH ×4 (05:18→23:48)
[2021-05-15] MEDS: DILTIAZEM HCL 30 MG TABLET GT SCH ×4 (05:19→23:49)
[2021-05-15] MEDS: OMEPRAZOLE 20 MG CAPSULE.DR GT SCH (05:19)
[2021-05-15] MEDS: BLOOD SUGAR DIAGNOSTIC 1 EACH STRIP IN SCH ×4 (05:36→23:49)
[2021-05-15] MEDS: INSULIN ASPART/LISPRO 100 UNIT/ML CARTRIDGE SQ PRN ×4 (05:37→23:49)
--- NOTE | 2021-05-15 05:41 | NUR ---
PATIENT RECEIVED ON 28% AEROSOL T-TUBE, TOLERATING WITH NO DISTRESS/SOB NOTED. SUCTIONED FOR MINIMAL, THICK, WHITE SECRETIONS. GIVEN IN=LINE TREATMENTS WITH NO ADVERSE REACTIONS. AMBU BAG AT BEDSIDE. Addendum: 05/15/21 at 0543 by KAISER LAW RT Amended: Links added.
[2021-05-15] MEDS: HYDROGEN PEROXIDE 480 ML BOTTLE TP SCH ×2 (07:36→21:35)
[2021-05-15 07:49] VITALS: BP 134/86
[2021-05-15] MEDS: DOCUSATE SODIUM LIQ 100 MG/10 ML UDC GT SCH ×2 (09:41→16:38)
[2021-05-15] MEDS: SITAGLIPTIN PHOSPHATE 50 MG TABLET GT SCH (09:42)
[2021-05-15] MEDS: FERROUS SULFATE - FOR SA ONLY 330 MG/7.5 ML UDC GT SCH (09:42)
[2021-05-15] MEDS: LEVETIRACETAM SOL (5 ML) 100 MG/ML UDC GT SCH ×2 (09:44→20:26)
[2021-05-15] MEDS: MULTIVIT W/MINERALS 1 TAB TABLET GT SCH (09:44)
[2021-05-15] MEDS: ACIDOPHILUS/BULGARICUS 1 EACH TAB.CHEW GT SCH ×2 (09:44→16:38)
[2021-05-15] MEDS: LISINOPRIL (5MG) 5 MG TABLET GT SCH (09:44)
[2021-05-15] MEDS: ZINC SULFATE 220 MG CAPSULE GT SCH (09:45)
[2021-05-15] MEDS: ASCORBIC ACID 500 MG TABLET GT SCH (09:45)
[2021-05-15] MEDS: Z GUARD REMEDY 4 OZ OINT TP SCH ×2 (09:45→20:26)
[2021-05-15] MEDS: VITAMINS A AND D 56.7 GM TUBE TP SCH ×4 (09:45→20:26)
[2021-05-15 12:09] VITALS: BP 142/87
[2021-05-15] MEDS: GLUCERNA 1.2 1,000 ML BOTTLE GT PRN (18:28)
[2021-05-15] MEDS: POLYETHYLENE GLYCOL 3350 17 GM POWD.PACK GT SCH (21:05)
[2021-05-15] MEDS: ATORVASTATIN 10 MG TABLET GT SCH (21:05)
[2021-05-15] MEDS: INSULIN GLARGINE,BASAGLAR 100 UNIT/ML INSULN.PEN SQ SCH (21:05)
[2021-05-15] MEDS: ENOXAPARIN SODIUM 40 MG/0.4 ML DISP.SYRIN SQ SCH (21:06)
[2021-05-15 21:27] VITALS: BP 110/63
[2021-05-15 23:49] VITALS: BP 126/54
[2021-05-16] MEDS: ALBUTEROL FS 2.5 MG/0.5 ML VIAL.NEB NEB SCH ×4 (00:53→19:43)
[2021-05-16] MEDS: IPRATROPIUM NEB FS 0.5 MG/2.5 ML AMPUL.NEB NEB SCH ×4 (00:53→19:43)
[2021-05-16] MEDS: BLOOD SUGAR DIAGNOSTIC 1 EACH STRIP IN SCH ×4 (05:17→23:48)
[2021-05-16] MEDS: POLYVINYL ALCOHOL 15 ML BOTTLE EACHEYE SCH ×4 (05:17→23:47)
[2021-05-16] MEDS: OMEPRAZOLE 20 MG CAPSULE.DR GT SCH (05:17)
[2021-05-16] MEDS: DILTIAZEM HCL 30 MG TABLET GT SCH ×4 (05:17→23:47)
[2021-05-16] MEDS: INSULIN ASPART/LISPRO 100 UNIT/ML CARTRIDGE SQ PRN (05:18)
[2021-05-16 07:51] VITALS: BP 155/66
[2021-05-16] MEDS: FERROUS SULFATE - FOR SA ONLY 330 MG/7.5 ML UDC GT SCH (09:00)
[2021-05-16] MEDS: DOCUSATE SODIUM LIQ 100 MG/10 ML UDC GT SCH ×2 (09:00→17:00)
[2021-05-16] MEDS: ZINC SULFATE 220 MG CAPSULE GT SCH (09:00)
[2021-05-16] MEDS: LISINOPRIL (5MG) 5 MG TABLET GT SCH (09:00)
[2021-05-16] MEDS: ASCORBIC ACID 500 MG TABLET GT SCH (09:00)
[2021-05-16] MEDS: MULTIVIT W/MINERALS 1 TAB TABLET GT SCH (09:00)
[2021-05-16] MEDS: LEVETIRACETAM SOL (5 ML) 100 MG/ML UDC GT SCH ×2 (09:00→21:03)
[2021-05-16] MEDS: ACIDOPHILUS/BULGARICUS 1 EACH TAB.CHEW GT SCH ×2 (09:00→17:00)
[2021-05-16] MEDS: Z GUARD REMEDY 4 OZ OINT TP SCH ×2 (09:00→21:03)
[2021-05-16] MEDS: VITAMINS A AND D 56.7 GM TUBE TP SCH ×4 (09:00→21:03)
[2021-05-16] MEDS: SITAGLIPTIN PHOSPHATE 50 MG TABLET GT SCH (09:00)
[2021-05-16] MEDS: HYDROGEN PEROXIDE 480 ML BOTTLE TP SCH ×2 (09:49→19:43)
[2021-05-16 14:52] VITALS: BP 138/62
--- NOTE | 2021-05-16 16:00 | NUR ---
THERMOSTAT MECHANIC reported to RN that patients' GT noted dislodged, replaced GT Bard Fr.# , no resistance noted upon GT insertion, patient tolerated proc. well. Called and left message to answering service of Dr. Tj Pineda to get order for KUB to check GT placement. Waiting for call back.
--- NOTE | 2021-05-16 16:45 | NUR ---
No call back yet from Dr. Pineda, Called BOILER SHOP SUPERVISOR Kennedi and made her aware that patients' GT got dislodged, replaced GT, got order for KUB with gastrografin now to check GT placement. New order noted and carried out.
--- NOTE | 2021-05-16 17:00 | NUR ---
KUB with gastrografin done. Waiting for results. Patient calm, not in distress. Closely monitored.
[2021-05-16] MEDS ORDERED: DIATR MEGLU/DIATRIZOATE SODIUM 30 ML BOTTLE (GASTROGRAPHIN) ONE (17:11)
[2021-05-16 19:53] VITALS: BP 107/60
--- NOTE | 2021-05-16 19:55 | NUR ---
KUB results ok within the stomach, no leakage noted, GT feeding resumed.
[2021-05-16] MEDS: ATORVASTATIN 10 MG TABLET GT SCH (21:03)
[2021-05-16] MEDS: POLYETHYLENE GLYCOL 3350 17 GM POWD.PACK GT SCH (21:03)
[2021-05-16] MEDS: ENOXAPARIN SODIUM 40 MG/0.4 ML DISP.SYRIN SQ SCH (21:06)
[2021-05-16] MEDS: INSULIN GLARGINE,BASAGLAR 100 UNIT/ML INSULN.PEN SQ SCH (21:06)
[2021-05-17] MEDS: ALBUTEROL FS 2.5 MG/0.5 ML VIAL.NEB NEB SCH ×4 (01:58→20:22)
[2021-05-17] MEDS: IPRATROPIUM NEB FS 0.5 MG/2.5 ML AMPUL.NEB NEB SCH ×4 (01:58→20:22)
[2021-05-17] MEDS: POLYVINYL ALCOHOL 15 ML BOTTLE EACHEYE SCH ×3 (05:37→17:01)
[2021-05-17] MEDS: OMEPRAZOLE 20 MG CAPSULE.DR GT SCH (05:38)
[2021-05-17] MEDS: DILTIAZEM HCL 30 MG TABLET GT SCH ×3 (05:38→17:01)
[2021-05-17] MEDS: BLOOD SUGAR DIAGNOSTIC 1 EACH STRIP IN SCH ×3 (05:38→17:19)
--- NOTE | 2021-05-17 06:35 | NUR ---
PATIENT RECEIVED ON 28% AEROSOL T-TUBE, TOLERATING WITH NO DISTRESS/SOB NOTED. SUCTIONED WITH LAVAGE FOR MINIMAL, THIN, WHITE SECRETIONS. GIVEN IN-LINE TREATMENTS WITH NO ADVERSE REACTIONS. AMBU BAG AT BEDSIDE. TRACH CARE DONE. Addendum: 05/17/21 at 0637 by KAISER LAW RT Amended: Links added.
[2021-05-17 07:51] VITALS: BP 92/72
[2021-05-17] MEDS: HYDROGEN PEROXIDE 480 ML BOTTLE TP SCH ×2 (08:17→21:55)
[2021-05-17] MEDS: LISINOPRIL (5MG) 5 MG TABLET GT SCH (09:00)
[2021-05-17] MEDS: DOCUSATE SODIUM LIQ 100 MG/10 ML UDC GT SCH ×2 (09:09→16:59)
[2021-05-17] MEDS: SITAGLIPTIN PHOSPHATE 50 MG TABLET GT SCH (09:09)
[2021-05-17] MEDS: FERROUS SULFATE - FOR SA ONLY 330 MG/7.5 ML UDC GT SCH (09:09)
[2021-05-17] MEDS: LEVETIRACETAM SOL (5 ML) 100 MG/ML UDC GT SCH ×2 (09:09→21:36)
[2021-05-17] MEDS: ACIDOPHILUS/BULGARICUS 1 EACH TAB.CHEW GT SCH ×2 (09:09→16:59)
[2021-05-17] MEDS: VITAMINS A AND D 56.7 GM TUBE TP SCH ×4 (09:11→21:36)
[2021-05-17] MEDS: ASCORBIC ACID 500 MG TABLET GT SCH (09:11)
[2021-05-17] MEDS: ZINC SULFATE 220 MG CAPSULE GT SCH (09:11)
[2021-05-17] MEDS: MULTIVIT W/MINERALS 1 TAB TABLET GT SCH (09:11)
[2021-05-17] MEDS: Z GUARD REMEDY 4 OZ OINT TP SCH ×2 (09:11→21:36)
[2021-05-17 12:27] VITALS: BP 131/74
[2021-05-17] MEDS: INSULIN ASPART/LISPRO 100 UNIT/ML CARTRIDGE SQ PRN ×2 (12:32→17:20)
[2021-05-17] MEDS: GLUCERNA 1.2 1,000 ML BOTTLE GT PRN (17:01)
[2021-05-17 20:06] VITALS: BP 114/56
[2021-05-17] MEDS: ATORVASTATIN 10 MG TABLET GT SCH (21:36)
[2021-05-17] MEDS: POLYETHYLENE GLYCOL 3350 17 GM POWD.PACK GT SCH (21:36)
[2021-05-17] MEDS: INSULIN GLARGINE,BASAGLAR 100 UNIT/ML INSULN.PEN SQ SCH (21:36)
[2021-05-17] MEDS: ENOXAPARIN SODIUM 40 MG/0.4 ML DISP.SYRIN SQ SCH (21:37)
[2021-05-18] MEDS: POLYVINYL ALCOHOL 15 ML BOTTLE EACHEYE SCH ×4 (00:28→18:36)
[2021-05-18] MEDS: BLOOD SUGAR DIAGNOSTIC 1 EACH STRIP IN SCH ×4 (00:28→18:37)
[2021-05-18] MEDS: IPRATROPIUM NEB FS 0.5 MG/2.5 ML AMPUL.NEB NEB SCH ×4 (00:38→20:35)
[2021-05-18] MEDS: ALBUTEROL FS 2.5 MG/0.5 ML VIAL.NEB NEB SCH ×4 (00:38→20:35)
[2021-05-18] MEDS: DILTIAZEM HCL 30 MG TABLET GT SCH ×4 (05:47→18:00)
[2021-05-18] MEDS: OMEPRAZOLE 20 MG CAPSULE.DR GT SCH (05:47)
[2021-05-18] MEDS: HYDROGEN PEROXIDE 480 ML BOTTLE TP SCH ×2 (08:11→20:36)
[2021-05-18 08:39] VITALS: BP 129/73
[2021-05-18] MEDS: SITAGLIPTIN PHOSPHATE 50 MG TABLET GT SCH (08:54)
[2021-05-18] MEDS: ACIDOPHILUS/BULGARICUS 1 EACH TAB.CHEW GT SCH ×2 (08:54→16:37)
[2021-05-18] MEDS: FERROUS SULFATE - FOR SA ONLY 330 MG/7.5 ML UDC GT SCH (08:54)
[2021-05-18] MEDS: DOCUSATE SODIUM LIQ 100 MG/10 ML UDC GT SCH ×2 (08:54→16:37)
[2021-05-18] MEDS: LISINOPRIL (5MG) 5 MG TABLET GT SCH (08:54)
[2021-05-18] MEDS: LEVETIRACETAM SOL (5 ML) 100 MG/ML UDC GT SCH ×2 (08:54→21:28)
[2021-05-18] MEDS: MULTIVIT W/MINERALS 1 TAB TABLET GT SCH (08:55)
[2021-05-18] MEDS: ASCORBIC ACID 500 MG TABLET GT SCH (08:55)
[2021-05-18] MEDS: Z GUARD REMEDY 4 OZ OINT TP SCH ×2 (08:55→21:28)
[2021-05-18] MEDS: ZINC SULFATE 220 MG CAPSULE GT SCH (08:55)
[2021-05-18] MEDS: VITAMINS A AND D 56.7 GM TUBE TP SCH ×4 (08:55→21:29)
[2021-05-18] MEDS: INSULIN ASPART/LISPRO 100 UNIT/ML CARTRIDGE SQ PRN ×2 (12:00→18:38)
[2021-05-18 13:07] VITALS: BP 130/79
[2021-05-18 19:55] VITALS: BP 117/55
[2021-05-18] MEDS: POLYETHYLENE GLYCOL 3350 17 GM POWD.PACK GT SCH (21:29)
[2021-05-18] MEDS: ATORVASTATIN 10 MG TABLET GT SCH (21:29)
[2021-05-18] MEDS: INSULIN GLARGINE,BASAGLAR 100 UNIT/ML INSULN.PEN SQ SCH (21:30)
[2021-05-18] MEDS: ENOXAPARIN SODIUM 40 MG/0.4 ML DISP.SYRIN SQ SCH (21:30)
[2021-05-19] MEDS: POLYVINYL ALCOHOL 15 ML BOTTLE EACHEYE SCH ×5 (00:11→23:53)
[2021-05-19] MEDS: INSULIN ASPART/LISPRO 100 UNIT/ML CARTRIDGE SQ PRN ×2 (00:12→05:42)
[2021-05-19] MEDS: BLOOD SUGAR DIAGNOSTIC 1 EACH STRIP IN SCH ×5 (00:12→23:59)
[2021-05-19] MEDS: ALBUTEROL FS 2.5 MG/0.5 ML VIAL.NEB NEB SCH ×4 (02:01→19:40)
[2021-05-19] MEDS: IPRATROPIUM NEB FS 0.5 MG/2.5 ML AMPUL.NEB NEB SCH ×4 (02:01→19:40)
[2021-05-19] MEDS: DILTIAZEM HCL 30 MG TABLET GT SCH ×5 (05:41→23:53)
[2021-05-19] MEDS: OMEPRAZOLE 20 MG CAPSULE.DR GT SCH (05:41)
[2021-05-19] MEDS: GLUCERNA 1.2 1,000 ML BOTTLE GT PRN (05:45)
[2021-05-19 07:44] VITALS: BP 151/75
[2021-05-19] MEDS: HYDROGEN PEROXIDE 480 ML BOTTLE TP SCH ×2 (09:11→19:40)
[2021-05-19] MEDS: ASCORBIC ACID 500 MG TABLET GT SCH (09:47)
[2021-05-19] MEDS: Z GUARD REMEDY 4 OZ OINT TP SCH ×2 (09:47→21:43)
[2021-05-19] MEDS: VITAMINS A AND D 56.7 GM TUBE TP SCH ×4 (09:47→21:43)
[2021-05-19] MEDS: MULTIVIT W/MINERALS 1 TAB TABLET GT SCH (09:47)
[2021-05-19] MEDS: ACIDOPHILUS/BULGARICUS 1 EACH TAB.CHEW GT SCH ×2 (09:47→17:04)
[2021-05-19] MEDS: FERROUS SULFATE - FOR SA ONLY 330 MG/7.5 ML UDC GT SCH (09:47)
[2021-05-19] MEDS: LEVETIRACETAM SOL (5 ML) 100 MG/ML UDC GT SCH ×2 (09:47→21:43)
[2021-05-19] MEDS: SITAGLIPTIN PHOSPHATE 50 MG TABLET GT SCH (09:47)
[2021-05-19] MEDS: LISINOPRIL (5MG) 5 MG TABLET GT SCH (09:47)
[2021-05-19] MEDS: DOCUSATE SODIUM LIQ 100 MG/10 ML UDC GT SCH ×2 (09:47→17:04)
[2021-05-19] MEDS: ZINC SULFATE 220 MG CAPSULE GT SCH (09:47)
[2021-05-19 12:17] VITALS: BP 112/63
[2021-05-19 19:23] VITALS: BP 105/68
[2021-05-19] MEDS: POLYETHYLENE GLYCOL 3350 17 GM POWD.PACK GT SCH (21:43)
[2021-05-19] MEDS: ATORVASTATIN 10 MG TABLET GT SCH (21:43)
[2021-05-19] MEDS: ENOXAPARIN SODIUM 40 MG/0.4 ML DISP.SYRIN SQ SCH (21:43)
[2021-05-19] MEDS: INSULIN GLARGINE,BASAGLAR 100 UNIT/ML INSULN.PEN SQ SCH (22:22)
[2021-05-20 00:28] VITALS: BP 109/60
[2021-05-20] MEDS: IPRATROPIUM NEB FS 0.5 MG/2.5 ML AMPUL.NEB NEB SCH ×4 (02:01→19:13)
[2021-05-20] MEDS: ALBUTEROL FS 2.5 MG/0.5 ML VIAL.NEB NEB SCH ×4 (02:01→19:13)
[2021-05-20] MEDS: POLYVINYL ALCOHOL 15 ML BOTTLE EACHEYE SCH ×4 (05:41→23:20)
[2021-05-20] MEDS: DILTIAZEM HCL 30 MG TABLET GT SCH ×4 (05:41→23:21)
[2021-05-20] MEDS: GLUCERNA 1.2 1,000 ML BOTTLE GT PRN (05:42)
[2021-05-20] MEDS: INSULIN ASPART/LISPRO 100 UNIT/ML CARTRIDGE SQ PRN ×5 (05:42→23:21)
[2021-05-20] MEDS: OMEPRAZOLE 20 MG CAPSULE.DR GT SCH (05:42)
[2021-05-20] MEDS: BLOOD SUGAR DIAGNOSTIC 1 EACH STRIP IN SCH ×4 (05:42→23:21)
[2021-05-20 07:26] VITALS: BP 128/61
[2021-05-20] MEDS: HYDROGEN PEROXIDE 480 ML BOTTLE TP SCH ×2 (08:37→19:13)
[2021-05-20] MEDS: DOCUSATE SODIUM LIQ 100 MG/10 ML UDC GT SCH ×2 (09:02→17:30)
[2021-05-20] MEDS: FERROUS SULFATE - FOR SA ONLY 330 MG/7.5 ML UDC GT SCH (09:02)
[2021-05-20] MEDS: VITAMINS A AND D 56.7 GM TUBE TP SCH ×4 (09:03→20:36)
[2021-05-20] MEDS: SITAGLIPTIN PHOSPHATE 50 MG TABLET GT SCH (09:03)
[2021-05-20] MEDS: MULTIVIT W/MINERALS 1 TAB TABLET GT SCH (09:03)
[2021-05-20] MEDS: ZINC SULFATE 220 MG CAPSULE GT SCH (09:03)
[2021-05-20] MEDS: LISINOPRIL (5MG) 5 MG TABLET GT SCH (09:03)
[2021-05-20] MEDS: LEVETIRACETAM SOL (5 ML) 100 MG/ML UDC GT SCH ×2 (09:03→20:36)
[2021-05-20] MEDS: Z GUARD REMEDY 4 OZ OINT TP SCH ×2 (09:03→20:36)
[2021-05-20] MEDS: ACIDOPHILUS/BULGARICUS 1 EACH TAB.CHEW GT SCH ×2 (09:03→17:30)
[2021-05-20] MEDS: ASCORBIC ACID 500 MG TABLET GT SCH (09:03)
--- NOTE | 2021-05-20 10:17 | NUR ---
MDS: SW completed the SS portion of 3rd Quarter MDS. The patients daughter, Kelly Wong [phone] is the patients conservator. The patient is non-communicative, DNR, Non-Vent with trach and g-tube feeding (see other disciplines notes for further details). The patients last dental exam with Dr. Oliveira was on 04/02/2021. The patients last optometry exam by Dr. Saldana was on 02/22/2021. The patients last podiatry consultation with Dr. Cevallos was on 05/13/2021.
[2021-05-20 12:47] VITALS: BP 113/84
[2021-05-20 20:26] VITALS: BP 103/55
[2021-05-20] MEDS: INSULIN GLARGINE,BASAGLAR 100 UNIT/ML INSULN.PEN SQ SCH (21:05)
[2021-05-20] MEDS: ATORVASTATIN 10 MG TABLET GT SCH (21:05)
[2021-05-20] MEDS: POLYETHYLENE GLYCOL 3350 17 GM POWD.PACK GT SCH (21:05)
[2021-05-20] MEDS: ENOXAPARIN SODIUM 40 MG/0.4 ML DISP.SYRIN SQ SCH (21:05)
[2021-05-20 23:31] VITALS: BP 112/70
[2021-05-21] MEDS: ALBUTEROL FS 2.5 MG/0.5 ML VIAL.NEB NEB SCH ×4 (02:18→19:21)
[2021-05-21] MEDS: IPRATROPIUM NEB FS 0.5 MG/2.5 ML AMPUL.NEB NEB SCH ×4 (02:18→19:21)
[2021-05-21] MEDS: POLYVINYL ALCOHOL 15 ML BOTTLE EACHEYE SCH ×4 (05:26→23:30)
[2021-05-21] MEDS: OMEPRAZOLE 20 MG CAPSULE.DR GT SCH (05:27)
[2021-05-21] MEDS: BLOOD SUGAR DIAGNOSTIC 1 EACH STRIP IN SCH ×4 (05:27→23:31)
[2021-05-21] MEDS: DILTIAZEM HCL 30 MG TABLET GT SCH ×4 (05:27→23:31)
[2021-05-21] MEDS: INSULIN ASPART/LISPRO 100 UNIT/ML CARTRIDGE SQ PRN ×4 (05:27→23:31)
--- NOTE | 2021-05-21 06:03 | NUR ---
PATIENT RECEIVED ON 28% AEROSOL T-TUBE, TOLERATING WITH NO DISTRESS/SOB NOTED. SUCTIONED FOR MINIMAL, THIN, WHITE-CREAM SECRETIONS. GIVEN IN-LINE TREATMENTS WITH NO ADVERSE REACTIONS. AMBU BAG AT BEDSIDE. TRACH CARE DONE. Addendum: 05/21/21 at 0604 by KAISER LAW RT Amended: Links added.
[2021-05-21 07:46] VITALS: BP 127/72
[2021-05-21] MEDS: HYDROGEN PEROXIDE 480 ML BOTTLE TP SCH ×2 (08:43→21:00)
[2021-05-21] MEDS: DOCUSATE SODIUM LIQ 100 MG/10 ML UDC GT SCH ×2 (09:00→16:47)
[2021-05-21] MEDS: LEVETIRACETAM SOL (5 ML) 100 MG/ML UDC GT SCH ×2 (09:00→20:46)
[2021-05-21] MEDS: ACIDOPHILUS/BULGARICUS 1 EACH TAB.CHEW GT SCH ×2 (09:00→16:47)
[2021-05-21] MEDS: FERROUS SULFATE - FOR SA ONLY 330 MG/7.5 ML UDC GT SCH (09:00)
[2021-05-21] MEDS: SITAGLIPTIN PHOSPHATE 50 MG TABLET GT SCH (09:00)
[2021-05-21] MEDS: MULTIVIT W/MINERALS 1 TAB TABLET GT SCH (09:01)
[2021-05-21] MEDS: LISINOPRIL (5MG) 5 MG TABLET GT SCH (09:01)
[2021-05-21] MEDS: ZINC SULFATE 220 MG CAPSULE GT SCH (09:01)
[2021-05-21] MEDS: ASCORBIC ACID 500 MG TABLET GT SCH (09:01)
[2021-05-21] MEDS: VITAMINS A AND D 56.7 GM TUBE TP SCH ×4 (09:02→20:47)
[2021-05-21] MEDS: Z GUARD REMEDY 4 OZ OINT TP SCH ×2 (09:02→20:46)
[2021-05-21] MEDS: GLUCERNA 1.2 1,000 ML BOTTLE GT PRN (13:10)
[2021-05-21 14:15] VITALS: BP 109/68
[2021-05-21 19:02] VITALS: BP 108/63
[2021-05-21] MEDS: POLYETHYLENE GLYCOL 3350 17 GM POWD.PACK GT SCH (21:05)
[2021-05-21] MEDS: ATORVASTATIN 10 MG TABLET GT SCH (21:05)
[2021-05-21] MEDS: ENOXAPARIN SODIUM 40 MG/0.4 ML DISP.SYRIN SQ SCH (21:06)
[2021-05-21] MEDS: INSULIN GLARGINE,BASAGLAR 100 UNIT/ML INSULN.PEN SQ SCH (21:06)
[2021-05-21 23:30] VITALS: BP 133/73
[2021-05-22] MEDS: IPRATROPIUM NEB FS 0.5 MG/2.5 ML AMPUL.NEB NEB SCH ×4 (01:53→19:55)
[2021-05-22] MEDS: ALBUTEROL FS 2.5 MG/0.5 ML VIAL.NEB NEB SCH ×4 (01:53→19:55)
[2021-05-22] MEDS: POLYVINYL ALCOHOL 15 ML BOTTLE EACHEYE SCH ×4 (05:16→23:18)
[2021-05-22] MEDS: DILTIAZEM HCL 30 MG TABLET GT SCH ×4 (05:16→23:19)
[2021-05-22] MEDS: OMEPRAZOLE 20 MG CAPSULE.DR GT SCH (05:16)
[2021-05-22] MEDS: BLOOD SUGAR DIAGNOSTIC 1 EACH STRIP IN SCH ×4 (05:16→23:19)
[2021-05-22] MEDS: INSULIN ASPART/LISPRO 100 UNIT/ML CARTRIDGE SQ PRN ×4 (05:17→23:20)
[2021-05-22 07:33] VITALS: BP 135/75
[2021-05-22] MEDS: HYDROGEN PEROXIDE 480 ML BOTTLE TP SCH ×2 (09:12→21:09)
[2021-05-22] MEDS: ACIDOPHILUS/BULGARICUS 1 EACH TAB.CHEW GT SCH ×2 (09:37→17:41)
[2021-05-22] MEDS: LEVETIRACETAM SOL (5 ML) 100 MG/ML UDC GT SCH ×2 (09:37→20:41)
[2021-05-22] MEDS: DOCUSATE SODIUM LIQ 100 MG/10 ML UDC GT SCH ×2 (09:37→17:41)
[2021-05-22] MEDS: FERROUS SULFATE - FOR SA ONLY 330 MG/7.5 ML UDC GT SCH (09:37)
[2021-05-22] MEDS: SITAGLIPTIN PHOSPHATE 50 MG TABLET GT SCH (09:37)
[2021-05-22] MEDS: MULTIVIT W/MINERALS 1 TAB TABLET GT SCH (09:38)
[2021-05-22] MEDS: ASCORBIC ACID 500 MG TABLET GT SCH (09:38)
[2021-05-22] MEDS: VITAMINS A AND D 56.7 GM TUBE TP SCH ×4 (09:38→20:42)
[2021-05-22] MEDS: Z GUARD REMEDY 4 OZ OINT TP SCH ×2 (09:38→20:42)
[2021-05-22] MEDS: ZINC SULFATE 220 MG CAPSULE GT SCH (09:38)
[2021-05-22] MEDS: LISINOPRIL (5MG) 5 MG TABLET GT SCH (09:38)
[2021-05-22 12:09] VITALS: BP 124/72
[2021-05-22] MEDS: GLUCERNA 1.2 1,000 ML BOTTLE GT PRN (18:18)
[2021-05-22 20:25] VITALS: BP 101/51
[2021-05-22] MEDS: ATORVASTATIN 10 MG TABLET GT SCH (21:03)
[2021-05-22] MEDS: POLYETHYLENE GLYCOL 3350 17 GM POWD.PACK GT SCH (21:03)
[2021-05-22] MEDS: ENOXAPARIN SODIUM 40 MG/0.4 ML DISP.SYRIN SQ SCH (21:04)
[2021-05-22] MEDS: INSULIN GLARGINE,BASAGLAR 100 UNIT/ML INSULN.PEN SQ SCH (21:04)
[2021-05-23 01:34] VITALS: BP 110/58
[2021-05-23] MEDS: IPRATROPIUM NEB FS 0.5 MG/2.5 ML AMPUL.NEB NEB SCH ×4 (01:42→20:01)
[2021-05-23] MEDS: ALBUTEROL FS 2.5 MG/0.5 ML VIAL.NEB NEB SCH ×4 (01:42→20:01)
[2021-05-23] MEDS: POLYVINYL ALCOHOL 15 ML BOTTLE EACHEYE SCH ×4 (05:27→23:45)
[2021-05-23] MEDS: DILTIAZEM HCL 30 MG TABLET GT SCH ×4 (05:28→23:46)
[2021-05-23] MEDS: BLOOD SUGAR DIAGNOSTIC 1 EACH STRIP IN SCH ×4 (05:29→23:46)
[2021-05-23] MEDS: OMEPRAZOLE 20 MG CAPSULE.DR GT SCH (05:29)
[2021-05-23] MEDS: INSULIN ASPART/LISPRO 100 UNIT/ML CARTRIDGE SQ PRN ×3 (05:29→18:31)
[2021-05-23 07:44] VITALS: BP 117/70
[2021-05-23] MEDS: HYDROGEN PEROXIDE 480 ML BOTTLE TP SCH ×2 (08:07→21:35)
[2021-05-23] MEDS: ACIDOPHILUS/BULGARICUS 1 EACH TAB.CHEW GT SCH ×2 (09:00→16:44)
[2021-05-23] MEDS: SITAGLIPTIN PHOSPHATE 50 MG TABLET GT SCH (09:00)
[2021-05-23] MEDS: ZINC SULFATE 220 MG CAPSULE GT SCH (09:00)
[2021-05-23] MEDS: DOCUSATE SODIUM LIQ 100 MG/10 ML UDC GT SCH ×2 (09:00→16:44)
[2021-05-23] MEDS: Z GUARD REMEDY 4 OZ OINT TP SCH ×2 (09:00→21:04)
[2021-05-23] MEDS: MULTIVIT W/MINERALS 1 TAB TABLET GT SCH (09:00)
[2021-05-23] MEDS: LISINOPRIL (5MG) 5 MG TABLET GT SCH (09:00)
[2021-05-23] MEDS: ASCORBIC ACID 500 MG TABLET GT SCH (09:00)
[2021-05-23] MEDS: FERROUS SULFATE - FOR SA ONLY 330 MG/7.5 ML UDC GT SCH (09:00)
[2021-05-23] MEDS: VITAMINS A AND D 56.7 GM TUBE TP SCH ×4 (09:00→21:04)
[2021-05-23] MEDS: LEVETIRACETAM SOL (5 ML) 100 MG/ML UDC GT SCH ×2 (09:00→21:04)
[2021-05-23 13:14] VITALS: BP 122/74
--- NOTE | 2021-05-23 15:05 | NUR ---
monitored for s/p trach changed. trach intact and patent. suctioned secretions q2 prn. no bleeding noted. no signs of pain and discomfort. will continue to monitor any untoward changes.endorsed.
[2021-05-23 20:27] VITALS: BP 106/67
[2021-05-23] MEDS: POLYETHYLENE GLYCOL 3350 17 GM POWD.PACK GT SCH (21:04)
[2021-05-23] MEDS: ATORVASTATIN 10 MG TABLET GT SCH (21:04)
[2021-05-23] MEDS: INSULIN GLARGINE,BASAGLAR 100 UNIT/ML INSULN.PEN SQ SCH (21:05)
[2021-05-23] MEDS: ENOXAPARIN SODIUM 40 MG/0.4 ML DISP.SYRIN SQ SCH (21:06)
[2021-05-24 01:19] VITALS: BP 126/89
[2021-05-24] MEDS: IPRATROPIUM NEB FS 0.5 MG/2.5 ML AMPUL.NEB NEB SCH ×4 (01:45→20:00)
[2021-05-24] MEDS: ALBUTEROL FS 2.5 MG/0.5 ML VIAL.NEB NEB SCH ×4 (01:45→20:00)
[2021-05-24] MEDS: POLYVINYL ALCOHOL 15 ML BOTTLE EACHEYE SCH ×3 (05:35→17:26)
[2021-05-24] MEDS: DILTIAZEM HCL 30 MG TABLET GT SCH ×3 (05:35→17:27)
[2021-05-24] MEDS: OMEPRAZOLE 20 MG CAPSULE.DR GT SCH (05:36)
[2021-05-24] MEDS: BLOOD SUGAR DIAGNOSTIC 1 EACH STRIP IN SCH ×3 (05:36→17:27)
[2021-05-24 07:25] VITALS: BP 107/77
[2021-05-24] MEDS: HYDROGEN PEROXIDE 480 ML BOTTLE TP SCH ×2 (08:24→21:12)
[2021-05-24] MEDS: DOCUSATE SODIUM LIQ 100 MG/10 ML UDC GT SCH ×2 (08:56→17:26)
[2021-05-24] MEDS: FERROUS SULFATE - FOR SA ONLY 330 MG/7.5 ML UDC GT SCH (08:56)
[2021-05-24] MEDS: SITAGLIPTIN PHOSPHATE 50 MG TABLET GT SCH (08:57)
[2021-05-24] MEDS: ACIDOPHILUS/BULGARICUS 1 EACH TAB.CHEW GT SCH ×2 (08:58→17:26)
[2021-05-24] MEDS: LEVETIRACETAM SOL (5 ML) 100 MG/ML UDC GT SCH ×2 (08:58→21:17)
[2021-05-24] MEDS: ASCORBIC ACID 500 MG TABLET GT SCH (08:59)
[2021-05-24] MEDS: Z GUARD REMEDY 4 OZ OINT TP SCH ×2 (08:59→21:17)
[2021-05-24] MEDS: VITAMINS A AND D 56.7 GM TUBE TP SCH ×4 (08:59→21:17)
[2021-05-24] MEDS: MULTIVIT W/MINERALS 1 TAB TABLET GT SCH (08:59)
[2021-05-24] MEDS: LISINOPRIL (5MG) 5 MG TABLET GT SCH (08:59)
[2021-05-24] MEDS: ZINC SULFATE 220 MG CAPSULE GT SCH (08:59)
[2021-05-24 11:28] VITALS: BP 98/69
[2021-05-24] MEDS: INSULIN ASPART/LISPRO 100 UNIT/ML CARTRIDGE SQ PRN ×2 (12:47→17:27)
[2021-05-24 20:03] VITALS: BP 118/71
[2021-05-24] MEDS: POLYETHYLENE GLYCOL 3350 17 GM POWD.PACK GT SCH (21:17)
[2021-05-24] MEDS: ATORVASTATIN 10 MG TABLET GT SCH (21:17)
[2021-05-24] MEDS: ENOXAPARIN SODIUM 40 MG/0.4 ML DISP.SYRIN SQ SCH (21:18)
[2021-05-24] MEDS: INSULIN GLARGINE,BASAGLAR 100 UNIT/ML INSULN.PEN SQ SCH (21:18)
[2021-05-25] MEDS: POLYVINYL ALCOHOL 15 ML BOTTLE EACHEYE SCH ×5 (00:03→23:50)
[2021-05-25] MEDS: BLOOD SUGAR DIAGNOSTIC 1 EACH STRIP IN SCH ×5 (00:04→23:52)
[2021-05-25] MEDS: ALBUTEROL FS 2.5 MG/0.5 ML VIAL.NEB NEB SCH ×4 (01:47→20:03)
[2021-05-25] MEDS: IPRATROPIUM NEB FS 0.5 MG/2.5 ML AMPUL.NEB NEB SCH ×4 (01:47→20:03)
[2021-05-25] MEDS: DILTIAZEM HCL 30 MG TABLET GT SCH ×5 (05:38→23:50)
[2021-05-25] MEDS: OMEPRAZOLE 20 MG CAPSULE.DR GT SCH (05:39)
[2021-05-25 07:13] VITALS: BP 114/76
[2021-05-25] MEDS: HYDROGEN PEROXIDE 480 ML BOTTLE TP SCH ×2 (08:44→21:15)
[2021-05-25] MEDS: DOCUSATE SODIUM LIQ 100 MG/10 ML UDC GT SCH ×2 (09:00→17:23)
[2021-05-25] MEDS: VITAMINS A AND D 56.7 GM TUBE TP SCH ×4 (09:00→21:06)
[2021-05-25] MEDS: SITAGLIPTIN PHOSPHATE 50 MG TABLET GT SCH (09:00)
[2021-05-25] MEDS: LEVETIRACETAM SOL (5 ML) 100 MG/ML UDC GT SCH ×2 (09:00→21:05)
[2021-05-25] MEDS: LISINOPRIL (5MG) 5 MG TABLET GT SCH (09:00)
[2021-05-25] MEDS: MULTIVIT W/MINERALS 1 TAB TABLET GT SCH (09:00)
[2021-05-25] MEDS: Z GUARD REMEDY 4 OZ OINT TP SCH ×2 (09:00→21:05)
[2021-05-25] MEDS: ZINC SULFATE 220 MG CAPSULE GT SCH (09:00)
[2021-05-25] MEDS: ASCORBIC ACID 500 MG TABLET GT SCH (09:00)
[2021-05-25] MEDS: ACIDOPHILUS/BULGARICUS 1 EACH TAB.CHEW GT SCH ×2 (09:00→17:23)
[2021-05-25] MEDS: FERROUS SULFATE - FOR SA ONLY 330 MG/7.5 ML UDC GT SCH (09:00)
[2021-05-25 11:52] VITALS: BP 138/74
[2021-05-25] MEDS: INSULIN ASPART/LISPRO 100 UNIT/ML CARTRIDGE SQ PRN ×2 (12:10→17:26)
[2021-05-25 20:10] VITALS: BP 127/67
[2021-05-25] MEDS: POLYETHYLENE GLYCOL 3350 17 GM POWD.PACK GT SCH (21:06)
[2021-05-25] MEDS: INSULIN GLARGINE,BASAGLAR 100 UNIT/ML INSULN.PEN SQ SCH (21:06)
[2021-05-25] MEDS: ATORVASTATIN 10 MG TABLET GT SCH (21:06)
[2021-05-25] MEDS: ENOXAPARIN SODIUM 40 MG/0.4 ML DISP.SYRIN SQ SCH (21:07)
[2021-05-26] MEDS: IPRATROPIUM NEB FS 0.5 MG/2.5 ML AMPUL.NEB NEB SCH ×4 (01:42→19:03)
[2021-05-26] MEDS: ALBUTEROL FS 2.5 MG/0.5 ML VIAL.NEB NEB SCH ×4 (01:42→19:03)
[2021-05-26] MEDS: DILTIAZEM HCL 30 MG TABLET GT SCH ×4 (05:58→23:36)
[2021-05-26] MEDS: POLYVINYL ALCOHOL 15 ML BOTTLE EACHEYE SCH ×4 (05:58→23:35)
[2021-05-26] MEDS: OMEPRAZOLE 20 MG CAPSULE.DR GT SCH (05:59)
[2021-05-26] MEDS: BLOOD SUGAR DIAGNOSTIC 1 EACH STRIP IN SCH ×4 (05:59→23:36)
[2021-05-26 08:00] VITALS: BP 95/56
[2021-05-26] MEDS: FERROUS SULFATE - FOR SA ONLY 330 MG/7.5 ML UDC GT SCH (09:00)
[2021-05-26] MEDS: VITAMINS A AND D 56.7 GM TUBE TP SCH ×4 (09:00→21:13)
[2021-05-26] MEDS: DOCUSATE SODIUM LIQ 100 MG/10 ML UDC GT SCH ×2 (09:00→17:52)
[2021-05-26] MEDS: LISINOPRIL (5MG) 5 MG TABLET GT SCH (09:00)
[2021-05-26] MEDS: LEVETIRACETAM SOL (5 ML) 100 MG/ML UDC GT SCH ×2 (09:00→21:13)
[2021-05-26] MEDS: Z GUARD REMEDY 4 OZ OINT TP SCH ×2 (09:00→21:13)
[2021-05-26] MEDS: SITAGLIPTIN PHOSPHATE 50 MG TABLET GT SCH (09:00)
[2021-05-26] MEDS: ZINC SULFATE 220 MG CAPSULE GT SCH (09:00)
[2021-05-26] MEDS: MULTIVIT W/MINERALS 1 TAB TABLET GT SCH (09:00)
[2021-05-26] MEDS: ACIDOPHILUS/BULGARICUS 1 EACH TAB.CHEW GT SCH ×2 (09:00→17:52)
[2021-05-26] MEDS: ASCORBIC ACID 500 MG TABLET GT SCH (09:00)
[2021-05-26] MEDS: HYDROGEN PEROXIDE 480 ML BOTTLE TP SCH ×2 (09:13→21:00)
[2021-05-26 12:00] VITALS: BP 125/81
[2021-05-26] MEDS: GLUCERNA 1.2 1,000 ML BOTTLE GT PRN (13:21)
[2021-05-26] MEDS: INSULIN ASPART/LISPRO 100 UNIT/ML CARTRIDGE SQ PRN ×3 (13:22→23:36)
--- NOTE | 2021-05-26 16:06 | NUR ---
IDT Family Invite: SW emailed the pt.'s daughter, Kelly to invite them to IDT meeting for 05/28/2021. ORACIO will follow up as needed.
[2021-05-26 20:20] VITALS: BP 99/61
[2021-05-26] MEDS: POLYETHYLENE GLYCOL 3350 17 GM POWD.PACK GT SCH (21:13)
[2021-05-26] MEDS: ATORVASTATIN 10 MG TABLET GT SCH (21:13)
[2021-05-26] MEDS: INSULIN GLARGINE,BASAGLAR 100 UNIT/ML INSULN.PEN SQ SCH (21:14)
[2021-05-26] MEDS: ENOXAPARIN SODIUM 40 MG/0.4 ML DISP.SYRIN SQ SCH (21:14)
[2021-05-27 00:10] VITALS: BP 115/66
[2021-05-27] MEDS: IPRATROPIUM NEB FS 0.5 MG/2.5 ML AMPUL.NEB NEB SCH ×4 (01:44→20:22)
[2021-05-27] MEDS: ALBUTEROL FS 2.5 MG/0.5 ML VIAL.NEB NEB SCH ×4 (01:44→20:22)
[2021-05-27] MEDS: POLYVINYL ALCOHOL 15 ML BOTTLE EACHEYE SCH ×4 (05:25→23:51)
[2021-05-27] MEDS: DILTIAZEM HCL 30 MG TABLET GT SCH ×4 (05:26→23:52)
[2021-05-27] MEDS: OMEPRAZOLE 20 MG CAPSULE.DR GT SCH (05:26)
[2021-05-27] MEDS: BLOOD SUGAR DIAGNOSTIC 1 EACH STRIP IN SCH ×4 (05:26→23:52)
[2021-05-27] MEDS: INSULIN ASPART/LISPRO 100 UNIT/ML CARTRIDGE SQ PRN ×4 (05:28→23:53)
[2021-05-27 07:28] VITALS: BP 101/64
[2021-05-27 08:19] LABS: CALCIUM, SERUM 9.8 mg/dL (8.5-10.1); CREATININE 1.1 mg/dL (0.6-1.3); MAGNESIUM 2.5 mg/dL (1.8-2.4); PHOSPHORUS 3.9 mg/dL (2.5-4.9); POTASSIUM 4.5 mmol/L (3.5-5.1)
[2021-05-27 08:41] LABS: BASOPHILS # (AUTO) 0.1 K/uL (0.0-0.2); BASOPHILS % (AUTO) 0.9 % (0.0-2.0); EOSINOPHILS % (AUTO) 4.7 % (0.0-6.0); HEMATOCRIT 42 % (33-45); HEMOGLOBIN 13.9 g/dL (11.5-14.8); LYMPHOCYTES # (AUTO) 2.8 K/uL (0.8-4.8); MEAN CORPUSCULAR HGB CONC 33 g/dl (31.0-36.0); MEAN CORPUSCULAR VOLUME 93 fL (82-100); MONOCYTES # (AUTO) 0.6 K/uL (0.1-1.30); MONOCYTES % (AUTO) 10.3 % (2.0-12.0); NEUTROPHILS # (AUTO) 2.4 K/uL (1.8-8.9); NEUTROPHILS % (AUTO) 39.1 % (43.0-81.0); PLATELET COUNT (AUTO) 293 K/uL (150-450); RED BLOOD CELL COUNT(AUTO) 4.48 MIL/uL (4.0-5.2); WHITE BLOOD COUNT (AUTO) 6.2 K/uL (4.3-11.0)
[2021-05-27] MEDS: FERROUS SULFATE - FOR SA ONLY 330 MG/7.5 ML UDC GT SCH (08:45)
[2021-05-27] MEDS: DOCUSATE SODIUM LIQ 100 MG/10 ML UDC GT SCH ×2 (08:45→16:57)
[2021-05-27] MEDS: SITAGLIPTIN PHOSPHATE 50 MG TABLET GT SCH (08:45)
[2021-05-27] MEDS: ACIDOPHILUS/BULGARICUS 1 EACH TAB.CHEW GT SCH ×2 (08:46→16:57)
[2021-05-27] MEDS: LEVETIRACETAM SOL (5 ML) 100 MG/ML UDC GT SCH ×2 (08:46→21:18)
[2021-05-27] MEDS: LISINOPRIL (5MG) 5 MG TABLET GT SCH (08:47)
[2021-05-27] MEDS: ASCORBIC ACID 500 MG TABLET GT SCH (08:48)
[2021-05-27] MEDS: VITAMINS A AND D 56.7 GM TUBE TP SCH ×4 (08:48→21:18)
[2021-05-27] MEDS: MULTIVIT W/MINERALS 1 TAB TABLET GT SCH (08:48)
[2021-05-27] MEDS: Z GUARD REMEDY 4 OZ OINT TP SCH (08:48)
[2021-05-27] MEDS: ZINC SULFATE 220 MG CAPSULE GT SCH (08:48)
[2021-05-27] MEDS: HYDROGEN PEROXIDE 480 ML BOTTLE TP SCH ×2 (09:20→21:00)
[2021-05-27 12:24] VITALS: BP 90/56
[2021-05-27] MEDS: GLUCERNA 1.2 1,000 ML BOTTLE GT PRN (18:12)
[2021-05-27 19:44] VITALS: BP 100/60
[2021-05-27] MEDS: ATORVASTATIN 10 MG TABLET GT SCH (21:18)
[2021-05-27] MEDS: POLYETHYLENE GLYCOL 3350 17 GM POWD.PACK GT SCH (21:18)
[2021-05-27] MEDS: ENOXAPARIN SODIUM 40 MG/0.4 ML DISP.SYRIN SQ SCH (21:19)
[2021-05-27] MEDS: INSULIN GLARGINE,BASAGLAR 100 UNIT/ML INSULN.PEN SQ SCH (21:32)
[2021-05-27 23:43] VITALS: BP 99/65
[2021-05-28] MEDS: ALBUTEROL FS 2.5 MG/0.5 ML VIAL.NEB NEB SCH ×4 (01:30→20:22)
[2021-05-28] MEDS: IPRATROPIUM NEB FS 0.5 MG/2.5 ML AMPUL.NEB NEB SCH ×4 (01:30→20:22)
[2021-05-28] MEDS: POLYVINYL ALCOHOL 15 ML BOTTLE EACHEYE SCH ×4 (05:18→23:20)
[2021-05-28] MEDS: DILTIAZEM HCL 30 MG TABLET GT SCH ×3 (05:18→17:28)
[2021-05-28] MEDS: INSULIN ASPART/LISPRO 100 UNIT/ML CARTRIDGE SQ PRN ×4 (05:19→23:20)
[2021-05-28] MEDS: BLOOD SUGAR DIAGNOSTIC 1 EACH STRIP IN SCH ×4 (05:19→23:20)
[2021-05-28] MEDS: OMEPRAZOLE 20 MG CAPSULE.DR GT SCH (05:19)
[2021-05-28 07:51] VITALS: BP 124/75
[2021-05-28] MEDS: HYDROGEN PEROXIDE 480 ML BOTTLE TP SCH ×2 (08:25→21:00)
[2021-05-28] MEDS: SITAGLIPTIN PHOSPHATE 50 MG TABLET GT SCH (08:56)
[2021-05-28] MEDS: FERROUS SULFATE - FOR SA ONLY 330 MG/7.5 ML UDC GT SCH (08:56)
[2021-05-28] MEDS: DOCUSATE SODIUM LIQ 100 MG/10 ML UDC GT SCH ×2 (08:56→17:27)
[2021-05-28] MEDS: ACIDOPHILUS/BULGARICUS 1 EACH TAB.CHEW GT SCH ×2 (08:57→17:27)
[2021-05-28] MEDS: LEVETIRACETAM SOL (5 ML) 100 MG/ML UDC GT SCH ×2 (08:57→21:24)
[2021-05-28] MEDS: VITAMINS A AND D 56.7 GM TUBE TP SCH ×4 (08:58→21:24)
[2021-05-28] MEDS: LISINOPRIL (5MG) 5 MG TABLET GT SCH (08:58)
[2021-05-28] MEDS: ASCORBIC ACID 500 MG TABLET GT SCH (08:58)
[2021-05-28] MEDS: ZINC SULFATE 220 MG CAPSULE GT SCH (08:58)
[2021-05-28] MEDS: MULTIVIT W/MINERALS 1 TAB TABLET GT SCH (08:58)
[2021-05-28 14:25] VITALS: BP 149/87
--- NOTE | 2021-05-28 16:45 | NUR ---
INTERDISCIPLINARY PLAN OF CARE CONFERENCE took place today. The patients responsible constitution party, Nathanmonica [phone] Capone and Interdisciplinary team discussed the plan of care in detail. Current orders as well as treatments and medications were reviewed. See team conference notes for details.
[2021-05-28] MEDS: GLUCERNA 1.2 1,000 ML BOTTLE GT PRN (18:58)
[2021-05-28] MEDS: POLYETHYLENE GLYCOL 3350 17 GM POWD.PACK GT SCH (21:24)
[2021-05-28] MEDS: ATORVASTATIN 10 MG TABLET GT SCH (21:24)
[2021-05-28] MEDS: INSULIN GLARGINE,BASAGLAR 100 UNIT/ML INSULN.PEN SQ SCH (21:25)
[2021-05-28] MEDS: ENOXAPARIN SODIUM 40 MG/0.4 ML DISP.SYRIN SQ SCH (21:26)
[2021-05-28 22:03] VITALS: BP 99/63
[2021-05-29 00:24] VITALS: BP 114/79
[2021-05-29] MEDS: DILTIAZEM HCL 30 MG TABLET GT SCH ×5 (00:36→23:13)
[2021-05-29] MEDS: ALBUTEROL FS 2.5 MG/0.5 ML VIAL.NEB NEB SCH ×4 (01:30→19:17)
[2021-05-29] MEDS: IPRATROPIUM NEB FS 0.5 MG/2.5 ML AMPUL.NEB NEB SCH ×4 (01:30→19:17)
[2021-05-29] MEDS: POLYVINYL ALCOHOL 15 ML BOTTLE EACHEYE SCH ×4 (05:23→23:13)
[2021-05-29] MEDS: BLOOD SUGAR DIAGNOSTIC 1 EACH STRIP IN SCH ×4 (05:24→23:13)
[2021-05-29] MEDS: INSULIN ASPART/LISPRO 100 UNIT/ML CARTRIDGE SQ PRN ×4 (05:24→23:14)
[2021-05-29] MEDS: OMEPRAZOLE 20 MG CAPSULE.DR GT SCH (05:24)
[2021-05-29] MEDS: HYDROGEN PEROXIDE 480 ML BOTTLE TP SCH ×2 (07:53→21:00)
[2021-05-29 07:57] VITALS: BP 130/75
[2021-05-29] MEDS: FERROUS SULFATE - FOR SA ONLY 330 MG/7.5 ML UDC GT SCH (08:20)
[2021-05-29] MEDS: DOCUSATE SODIUM LIQ 100 MG/10 ML UDC GT SCH ×2 (08:20→16:08)
[2021-05-29] MEDS: LEVETIRACETAM SOL (5 ML) 100 MG/ML UDC GT SCH ×2 (08:21→20:12)
[2021-05-29] MEDS: ACIDOPHILUS/BULGARICUS 1 EACH TAB.CHEW GT SCH ×2 (08:21→16:08)
[2021-05-29] MEDS: VITAMINS A AND D 56.7 GM TUBE TP SCH ×4 (08:21→20:12)
[2021-05-29] MEDS: MULTIVIT W/MINERALS 1 TAB TABLET GT SCH (08:21)
[2021-05-29] MEDS: ASCORBIC ACID 500 MG TABLET GT SCH (08:21)
[2021-05-29] MEDS: SITAGLIPTIN PHOSPHATE 50 MG TABLET GT SCH (08:21)
[2021-05-29] MEDS: LISINOPRIL (5MG) 5 MG TABLET GT SCH (08:21)
[2021-05-29] MEDS: ZINC SULFATE 220 MG CAPSULE GT SCH (08:21)
[2021-05-29 20:48] VITALS: BP 113/62
[2021-05-29] MEDS: POLYETHYLENE GLYCOL 3350 17 GM POWD.PACK GT SCH (21:08)
[2021-05-29] MEDS: ATORVASTATIN 10 MG TABLET GT SCH (21:08)
[2021-05-29] MEDS: INSULIN GLARGINE,BASAGLAR 100 UNIT/ML INSULN.PEN SQ SCH (21:09)
[2021-05-29] MEDS: ENOXAPARIN SODIUM 40 MG/0.4 ML DISP.SYRIN SQ SCH (21:10)
[2021-05-30] VITALS: BP 112/69
[2021-05-30] MEDS: IPRATROPIUM NEB FS 0.5 MG/2.5 ML AMPUL.NEB NEB SCH ×4 (01:30→19:49)
[2021-05-30] MEDS: ALBUTEROL FS 2.5 MG/0.5 ML VIAL.NEB NEB SCH ×4 (01:30→19:50)
[2021-05-30] MEDS: POLYVINYL ALCOHOL 15 ML BOTTLE EACHEYE SCH ×4 (05:41→23:09)
[2021-05-30] MEDS: OMEPRAZOLE 20 MG CAPSULE.DR GT SCH (05:41)
[2021-05-30] MEDS: INSULIN ASPART/LISPRO 100 UNIT/ML CARTRIDGE SQ PRN ×4 (05:41→23:11)
[2021-05-30] MEDS: DILTIAZEM HCL 30 MG TABLET GT SCH ×4 (05:41→23:10)
[2021-05-30] MEDS: BLOOD SUGAR DIAGNOSTIC 1 EACH STRIP IN SCH ×4 (05:41→23:10)
[2021-05-30] MEDS: HYDROGEN PEROXIDE 480 ML BOTTLE TP SCH ×2 (07:51→21:00)
[2021-05-30 08:12] VITALS: BP 119/69
[2021-05-30] MEDS: ASCORBIC ACID 500 MG TABLET GT SCH (08:47)
[2021-05-30] MEDS: LEVETIRACETAM SOL (5 ML) 100 MG/ML UDC GT SCH ×2 (08:47→21:39)
[2021-05-30] MEDS: DOCUSATE SODIUM LIQ 100 MG/10 ML UDC GT SCH ×2 (08:47→16:35)
[2021-05-30] MEDS: ACIDOPHILUS/BULGARICUS 1 EACH TAB.CHEW GT SCH ×2 (08:47→16:35)
[2021-05-30] MEDS: SITAGLIPTIN PHOSPHATE 50 MG TABLET GT SCH (08:47)
[2021-05-30] MEDS: FERROUS SULFATE - FOR SA ONLY 330 MG/7.5 ML UDC GT SCH (08:47)
[2021-05-30] MEDS: MULTIVIT W/MINERALS 1 TAB TABLET GT SCH (08:47)
[2021-05-30] MEDS: LISINOPRIL (5MG) 5 MG TABLET GT SCH (08:47)
[2021-05-30] MEDS: ZINC SULFATE 220 MG CAPSULE GT SCH (08:47)
[2021-05-30] MEDS: VITAMINS A AND D 56.7 GM TUBE TP SCH ×4 (08:47→21:39)
[2021-05-30 13:53] VITALS: BP 101/55
[2021-05-30 20:14] VITALS: BP 108/63
[2021-05-30] MEDS: ATORVASTATIN 10 MG TABLET GT SCH (21:39)
[2021-05-30] MEDS: POLYETHYLENE GLYCOL 3350 17 GM POWD.PACK GT SCH (21:39)
[2021-05-30] MEDS: INSULIN GLARGINE,BASAGLAR 100 UNIT/ML INSULN.PEN SQ SCH (21:42)
[2021-05-30] MEDS: ENOXAPARIN SODIUM 40 MG/0.4 ML DISP.SYRIN SQ SCH (21:43)
[2021-05-31] MEDS: ALBUTEROL FS 2.5 MG/0.5 ML VIAL.NEB NEB SCH ×4 (01:53→20:35)
[2021-05-31] MEDS: IPRATROPIUM NEB FS 0.5 MG/2.5 ML AMPUL.NEB NEB SCH ×4 (01:53→20:35)
[2021-05-31] MEDS: POLYVINYL ALCOHOL 15 ML BOTTLE EACHEYE SCH ×4 (05:51→23:24)
[2021-05-31] MEDS: DILTIAZEM HCL 30 MG TABLET GT SCH ×4 (05:52→21:36)
[2021-05-31] MEDS: BLOOD SUGAR DIAGNOSTIC 1 EACH STRIP IN SCH ×4 (05:52→23:24)
[2021-05-31] MEDS: OMEPRAZOLE 20 MG CAPSULE.DR GT SCH (05:52)
[2021-05-31] MEDS: INSULIN ASPART/LISPRO 100 UNIT/ML CARTRIDGE SQ PRN ×4 (05:54→23:24)
[2021-05-31 07:38] VITALS: BP 103/68
[2021-05-31 07:56] VITALS: BP 98/56
[2021-05-31] MEDS: LISINOPRIL (5MG) 5 MG TABLET GT SCH (09:00)
[2021-05-31] MEDS: HYDROGEN PEROXIDE 480 ML BOTTLE TP SCH ×2 (09:17→20:35)
[2021-05-31] MEDS: FERROUS SULFATE - FOR SA ONLY 330 MG/7.5 ML UDC GT SCH (09:23)
[2021-05-31] MEDS: DOCUSATE SODIUM LIQ 100 MG/10 ML UDC GT SCH ×2 (09:23→17:51)
[2021-05-31] MEDS: SITAGLIPTIN PHOSPHATE 50 MG TABLET GT SCH (09:24)
[2021-05-31] MEDS: LEVETIRACETAM SOL (5 ML) 100 MG/ML UDC GT SCH ×2 (09:24→21:36)
[2021-05-31] MEDS: ACIDOPHILUS/BULGARICUS 1 EACH TAB.CHEW GT SCH ×2 (09:24→17:51)
[2021-05-31] MEDS: VITAMINS A AND D 56.7 GM TUBE TP SCH ×4 (09:25→21:36)
[2021-05-31] MEDS: ASCORBIC ACID 500 MG TABLET GT SCH (09:25)
[2021-05-31] MEDS: MULTIVIT W/MINERALS 1 TAB TABLET GT SCH (09:25)
[2021-05-31] MEDS: ZINC SULFATE 220 MG CAPSULE GT SCH (09:25)
[2021-05-31 12:21] VITALS: BP 101/59
--- NOTE | 2021-05-31 19:12 | NUR ---
Seen by ASSISTANT CITY ATTORNEY Kennedi Bender via telemedicine/video call. Asked her to review Cardizem since it has been frequently held. Received order to give Cardizem 30 mg from q 6 to q 12. Notified pt's daughter.
[2021-05-31 20:20] VITALS: BP 141/77
[2021-05-31] MEDS: ATORVASTATIN 10 MG TABLET GT SCH (21:36)
[2021-05-31] MEDS: POLYETHYLENE GLYCOL 3350 17 GM POWD.PACK GT SCH (21:37)
[2021-05-31] MEDS: ENOXAPARIN SODIUM 40 MG/0.4 ML DISP.SYRIN SQ SCH (21:38)
[2021-05-31] MEDS: INSULIN GLARGINE,BASAGLAR 100 UNIT/ML INSULN.PEN SQ SCH (21:38)
[2021-06-01] MEDS: ALBUTEROL FS 2.5 MG/0.5 ML VIAL.NEB NEB SCH ×4 (02:12→19:30)
[2021-06-01] MEDS: IPRATROPIUM NEB FS 0.5 MG/2.5 ML AMPUL.NEB NEB SCH ×4 (02:12→19:30)
[2021-06-01] MEDS: OMEPRAZOLE 20 MG CAPSULE.DR GT SCH (05:53)
[2021-06-01] MEDS: BLOOD SUGAR DIAGNOSTIC 1 EACH STRIP IN SCH ×4 (05:53→23:14)
[2021-06-01] MEDS: POLYVINYL ALCOHOL 15 ML BOTTLE EACHEYE SCH ×4 (05:53→23:14)
[2021-06-01] MEDS: INSULIN ASPART/LISPRO 100 UNIT/ML CARTRIDGE SQ PRN ×4 (05:54→23:14)
[2021-06-01 07:41] VITALS: BP 145/91
[2021-06-01] MEDS: HYDROGEN PEROXIDE 480 ML BOTTLE TP SCH ×2 (08:15→20:30)
[2021-06-01] MEDS: DILTIAZEM HCL 30 MG TABLET GT SCH ×2 (08:45→21:00)
[2021-06-01] MEDS: LEVETIRACETAM SOL (5 ML) 100 MG/ML UDC GT SCH ×2 (08:46→21:50)
[2021-06-01] MEDS: DOCUSATE SODIUM LIQ 100 MG/10 ML UDC GT SCH ×2 (08:46→16:12)
[2021-06-01] MEDS: FERROUS SULFATE - FOR SA ONLY 330 MG/7.5 ML UDC GT SCH (08:46)
[2021-06-01] MEDS: SITAGLIPTIN PHOSPHATE 50 MG TABLET GT SCH (08:46)
[2021-06-01] MEDS: ACIDOPHILUS/BULGARICUS 1 EACH TAB.CHEW GT SCH ×2 (08:46→16:12)
[2021-06-01] MEDS: MULTIVIT W/MINERALS 1 TAB TABLET GT SCH (08:47)
[2021-06-01] MEDS: LISINOPRIL (5MG) 5 MG TABLET GT SCH (08:47)
[2021-06-01] MEDS: VITAMINS A AND D 56.7 GM TUBE TP SCH ×4 (08:48→21:50)
[2021-06-01] MEDS: ASCORBIC ACID 500 MG TABLET GT SCH (08:48)
[2021-06-01] MEDS: ZINC SULFATE 220 MG CAPSULE GT SCH (08:48)
[2021-06-01] MEDS: GLUCERNA 1.2 1,000 ML BOTTLE GT PRN (16:12)
[2021-06-01 19:36] VITALS: BP 102/58
[2021-06-01] MEDS: ATORVASTATIN 10 MG TABLET GT SCH (21:50)
[2021-06-01] MEDS: POLYETHYLENE GLYCOL 3350 17 GM POWD.PACK GT SCH (21:50)
[2021-06-01] MEDS: INSULIN GLARGINE,BASAGLAR 100 UNIT/ML INSULN.PEN SQ SCH (21:51)
[2021-06-01] MEDS: ENOXAPARIN SODIUM 40 MG/0.4 ML DISP.SYRIN SQ SCH (21:51)
[2021-06-02 00:12] VITALS: BP 111/67
[2021-06-02] MEDS: ALBUTEROL FS 2.5 MG/0.5 ML VIAL.NEB NEB SCH ×4 (02:24→20:13)
[2021-06-02] MEDS: IPRATROPIUM NEB FS 0.5 MG/2.5 ML AMPUL.NEB NEB SCH ×4 (02:24→20:13)
[2021-06-02] MEDS: OMEPRAZOLE 20 MG CAPSULE.DR GT SCH (06:12)
[2021-06-02] MEDS: BLOOD SUGAR DIAGNOSTIC 1 EACH STRIP IN SCH ×4 (06:12→23:43)
[2021-06-02] MEDS: POLYVINYL ALCOHOL 15 ML BOTTLE EACHEYE SCH ×4 (06:12→23:43)
[2021-06-02] MEDS: INSULIN ASPART/LISPRO 100 UNIT/ML CARTRIDGE SQ PRN ×4 (06:13→23:44)
[2021-06-02 07:08] VITALS: BP 111/63
[2021-06-02] MEDS: HYDROGEN PEROXIDE 480 ML BOTTLE TP SCH ×2 (08:48→21:08)
[2021-06-02] MEDS: DOCUSATE SODIUM LIQ 100 MG/10 ML UDC GT SCH ×2 (09:33→17:35)
[2021-06-02] MEDS: SITAGLIPTIN PHOSPHATE 50 MG TABLET GT SCH (09:33)
[2021-06-02] MEDS: LEVETIRACETAM SOL (5 ML) 100 MG/ML UDC GT SCH ×2 (09:33→21:17)
[2021-06-02] MEDS: ACIDOPHILUS/BULGARICUS 1 EACH TAB.CHEW GT SCH ×2 (09:33→17:35)
[2021-06-02] MEDS: FERROUS SULFATE - FOR SA ONLY 330 MG/7.5 ML UDC GT SCH (09:33)
[2021-06-02] MEDS: DILTIAZEM HCL 30 MG TABLET GT SCH ×2 (09:33→21:00)
[2021-06-02] MEDS: ASCORBIC ACID 500 MG TABLET GT SCH (09:37)
[2021-06-02] MEDS: LISINOPRIL (5MG) 5 MG TABLET GT SCH (09:37)
[2021-06-02] MEDS: VITAMINS A AND D 56.7 GM TUBE TP SCH ×4 (09:37→21:17)
[2021-06-02] MEDS: ZINC SULFATE 220 MG CAPSULE GT SCH (09:37)
[2021-06-02] MEDS: MULTIVIT W/MINERALS 1 TAB TABLET GT SCH (09:37)
[2021-06-02 12:08] VITALS: BP_SYST 118; BP_SYST 130; BP_DIAS 69; BP_DIAS 75
--- NOTE | 2021-06-02 16:46 | NUR ---
Facility Update: ORACIO notified family that: "A Sub-Acute employee tested positive for COVID today. Residents and staff will continue receiving response testing as outlined by [facility] Department of Public Health. [facility] will continue to implement [facility] infection control protocols and continue screening employees before every shift. [facility] continues to follow infection control protocols and screen our residents and staff daily for symptoms. It is anticipated that in the near future, visitors who show proof they are up to date (up to date means fully vaccinated an received a booster dose or fully vaccinated but not yet booster-eligible) on their COVID-19 vaccinations will not be required to provide proof of a negative test result prior to indoor visitation, because of this we are encouraging Sub-Acute families to get vaccinated and receive a booster if eligible".
[2021-06-02] MEDS: GLUCERNA 1.2 1,000 ML BOTTLE GT PRN (17:40)
[2021-06-02 19:35] VITALS: BP 105/57
[2021-06-02] MEDS: ATORVASTATIN 10 MG TABLET GT SCH (21:17)
[2021-06-02] MEDS: POLYETHYLENE GLYCOL 3350 17 GM POWD.PACK GT SCH (21:17)
[2021-06-02] MEDS: ENOXAPARIN SODIUM 40 MG/0.4 ML DISP.SYRIN SQ SCH (21:18)
[2021-06-02] MEDS: INSULIN GLARGINE,BASAGLAR 100 UNIT/ML INSULN.PEN SQ SCH (21:18)
[2021-06-03 00:26] VITALS: BP 117/67
[2021-06-03] MEDS: IPRATROPIUM NEB FS 0.5 MG/2.5 ML AMPUL.NEB NEB SCH ×4 (01:51→19:52)
[2021-06-03] MEDS: ALBUTEROL FS 2.5 MG/0.5 ML VIAL.NEB NEB SCH ×4 (01:51→19:52)
[2021-06-03] MEDS: BLOOD SUGAR DIAGNOSTIC 1 EACH STRIP IN SCH ×4 (05:49→23:48)
[2021-06-03] MEDS: POLYVINYL ALCOHOL 15 ML BOTTLE EACHEYE SCH ×4 (05:49→23:48)
[2021-06-03] MEDS: OMEPRAZOLE 20 MG CAPSULE.DR GT SCH (05:49)
[2021-06-03] MEDS: INSULIN ASPART/LISPRO 100 UNIT/ML CARTRIDGE SQ PRN ×4 (05:50→23:49)
[2021-06-03 07:22] LABS: BASOPHILS # (AUTO) 0.1 K/uL (0.0-0.2); BASOPHILS % (AUTO) 1.2 % (0.0-2.0); HEMATOCRIT 40 % (33-45); HEMOGLOBIN 13.6 g/dL (11.5-14.8); LYMPHOCYTES # (AUTO) 2.6 K/uL (0.8-4.8); LYMPHOCYTES % (AUTO) 47.7 % (20.0-44.0); MEAN CORPUSCULAR HGB CONC 34 g/dl (31.0-36.0); MEAN CORPUSCULAR VOLUME 91 fL (82-100); MONOCYTES # (AUTO) 0.4 K/uL (0.1-1.30); MONOCYTES % (AUTO) 7.3 % (2.0-12.0); NEUTROPHILS # (AUTO) 2.1 K/uL (1.8-8.9); NEUTROPHILS % (AUTO) 39.8 % (43.0-81.0); PLATELET COUNT (AUTO) 304 K/uL (150-450); RED BLOOD CELL COUNT(AUTO) 4.39 MIL/uL (4.0-5.2); WHITE BLOOD COUNT (AUTO) 5.4 K/uL (4.3-11.0)
[2021-06-03 07:23] VITALS: BP 109/67
[2021-06-03 08:07] LABS: MAGNESIUM 2.9 mg/dL (1.8-2.4); POTASSIUM 4.7 mmol/L (3.5-5.1)
[2021-06-03 08:28] LABS: CALCIUM, SERUM 9.7 mg/dL (8.5-10.1)
[2021-06-03] MEDS: DILTIAZEM HCL 30 MG TABLET GT SCH ×2 (09:00→21:31)
[2021-06-03] MEDS: LEVETIRACETAM SOL (5 ML) 100 MG/ML UDC GT SCH ×2 (09:02→21:31)
[2021-06-03] MEDS: ACIDOPHILUS/BULGARICUS 1 EACH TAB.CHEW GT SCH ×2 (09:02→17:19)
[2021-06-03] MEDS: DOCUSATE SODIUM LIQ 100 MG/10 ML UDC GT SCH ×2 (09:02→17:19)
[2021-06-03] MEDS: SITAGLIPTIN PHOSPHATE 50 MG TABLET GT SCH (09:02)
[2021-06-03] MEDS: FERROUS SULFATE - FOR SA ONLY 330 MG/7.5 ML UDC GT SCH (09:02)
[2021-06-03] MEDS: MULTIVIT W/MINERALS 1 TAB TABLET GT SCH (09:03)
[2021-06-03] MEDS: ASCORBIC ACID 500 MG TABLET GT SCH (09:03)
[2021-06-03] MEDS: LISINOPRIL (5MG) 5 MG TABLET GT SCH (09:03)
[2021-06-03] MEDS: ZINC SULFATE 220 MG CAPSULE GT SCH (09:03)
[2021-06-03] MEDS: VITAMINS A AND D 56.7 GM TUBE TP SCH ×4 (09:03→21:31)
[2021-06-03] MEDS: HYDROGEN PEROXIDE 480 ML BOTTLE TP SCH ×2 (09:48→19:52)
[2021-06-03 12:13] VITALS: BP 112/72
[2021-06-03] MEDS: GLUCERNA 1.2 1,000 ML BOTTLE GT PRN (17:19)
[2021-06-03 20:49] VITALS: BP 128/59
[2021-06-03] MEDS: ATORVASTATIN 10 MG TABLET GT SCH (21:31)
[2021-06-03] MEDS: POLYETHYLENE GLYCOL 3350 17 GM POWD.PACK GT SCH (21:31)
[2021-06-03] MEDS: ENOXAPARIN SODIUM 40 MG/0.4 ML DISP.SYRIN SQ SCH (21:33)
[2021-06-03] MEDS: INSULIN GLARGINE,BASAGLAR 100 UNIT/ML INSULN.PEN SQ SCH (21:33)
[2021-06-04 00:30] VITALS: BP 105/62
[2021-06-04] MEDS: IPRATROPIUM NEB FS 0.5 MG/2.5 ML AMPUL.NEB NEB SCH ×4 (02:13→20:50)
[2021-06-04] MEDS: ALBUTEROL FS 2.5 MG/0.5 ML VIAL.NEB NEB SCH ×4 (02:13→20:50)
[2021-06-04] MEDS: OMEPRAZOLE 20 MG CAPSULE.DR GT SCH (05:22)
[2021-06-04] MEDS: POLYVINYL ALCOHOL 15 ML BOTTLE EACHEYE SCH ×4 (05:22→23:34)
[2021-06-04] MEDS: BLOOD SUGAR DIAGNOSTIC 1 EACH STRIP IN SCH ×4 (05:22→23:34)
[2021-06-04] MEDS: INSULIN ASPART/LISPRO 100 UNIT/ML CARTRIDGE SQ PRN ×4 (05:23→23:35)
[2021-06-04 07:22] VITALS: BP 127/68
[2021-06-04] MEDS: HYDROGEN PEROXIDE 480 ML BOTTLE TP SCH ×2 (08:20→20:50)
[2021-06-04] MEDS: DILTIAZEM HCL 30 MG TABLET GT SCH ×2 (09:43→21:11)
[2021-06-04] MEDS: SITAGLIPTIN PHOSPHATE 50 MG TABLET GT SCH (09:44)
[2021-06-04] MEDS: FERROUS SULFATE - FOR SA ONLY 330 MG/7.5 ML UDC GT SCH (09:44)
[2021-06-04] MEDS: LEVETIRACETAM SOL (5 ML) 100 MG/ML UDC GT SCH ×2 (09:44→21:11)
[2021-06-04] MEDS: DOCUSATE SODIUM LIQ 100 MG/10 ML UDC GT SCH ×2 (09:44→17:36)
[2021-06-04] MEDS: ACIDOPHILUS/BULGARICUS 1 EACH TAB.CHEW GT SCH ×2 (09:45→17:36)
[2021-06-04] MEDS: LISINOPRIL (5MG) 5 MG TABLET GT SCH (09:46)
[2021-06-04] MEDS: MULTIVIT W/MINERALS 1 TAB TABLET GT SCH (09:47)
[2021-06-04] MEDS: VITAMINS A AND D 56.7 GM TUBE TP SCH ×4 (09:48→21:11)
[2021-06-04] MEDS: ASCORBIC ACID 500 MG TABLET GT SCH (09:48)
[2021-06-04] MEDS: ZINC SULFATE 220 MG CAPSULE GT SCH (09:48)
[2021-06-04 11:51] VITALS: BP 97/58
[2021-06-04 19:57] VITALS: BP 120/68
[2021-06-04] MEDS: POLYETHYLENE GLYCOL 3350 17 GM POWD.PACK GT SCH (21:11)
[2021-06-04] MEDS: ATORVASTATIN 10 MG TABLET GT SCH (21:11)
[2021-06-04] MEDS: ENOXAPARIN SODIUM 40 MG/0.4 ML DISP.SYRIN SQ SCH (21:12)
[2021-06-04] MEDS: INSULIN GLARGINE,BASAGLAR 100 UNIT/ML INSULN.PEN SQ SCH (21:12)
[2021-06-05 00:31] VITALS: BP 125/70
[2021-06-05] MEDS: IPRATROPIUM NEB FS 0.5 MG/2.5 ML AMPUL.NEB NEB SCH ×4 (02:20→19:52)
[2021-06-05] MEDS: ALBUTEROL FS 2.5 MG/0.5 ML VIAL.NEB NEB SCH ×4 (02:20→19:52)
[2021-06-05] MEDS: BLOOD SUGAR DIAGNOSTIC 1 EACH STRIP IN SCH ×3 (05:23→17:42)
[2021-06-05] MEDS: POLYVINYL ALCOHOL 15 ML BOTTLE EACHEYE SCH ×3 (05:23→17:42)
[2021-06-05] MEDS: GLUCERNA 1.2 1,000 ML BOTTLE GT PRN (05:23)
[2021-06-05] MEDS: INSULIN ASPART/LISPRO 100 UNIT/ML CARTRIDGE SQ PRN ×3 (05:23→17:42)
[2021-06-05] MEDS: OMEPRAZOLE 20 MG CAPSULE.DR GT SCH (05:23)
[2021-06-05 07:29] VITALS: BP 116/66
[2021-06-05] MEDS: HYDROGEN PEROXIDE 480 ML BOTTLE TP SCH ×2 (08:10→21:37)
[2021-06-05] MEDS: ASCORBIC ACID 500 MG TABLET GT SCH (08:22)
[2021-06-05] MEDS: FERROUS SULFATE - FOR SA ONLY 330 MG/7.5 ML UDC GT SCH (08:22)
[2021-06-05] MEDS: SITAGLIPTIN PHOSPHATE 50 MG TABLET GT SCH (08:22)
[2021-06-05] MEDS: MULTIVIT W/MINERALS 1 TAB TABLET GT SCH (08:22)
[2021-06-05] MEDS: ACIDOPHILUS/BULGARICUS 1 EACH TAB.CHEW GT SCH ×2 (08:22→17:42)
[2021-06-05] MEDS: ZINC SULFATE 220 MG CAPSULE GT SCH (08:22)
[2021-06-05] MEDS: DILTIAZEM HCL 30 MG TABLET GT SCH ×2 (08:22→21:43)
[2021-06-05] MEDS: VITAMINS A AND D 56.7 GM TUBE TP SCH ×4 (08:22→21:44)
[2021-06-05] MEDS: DOCUSATE SODIUM LIQ 100 MG/10 ML UDC GT SCH ×2 (08:22→17:42)
[2021-06-05] MEDS: LEVETIRACETAM SOL (5 ML) 100 MG/ML UDC GT SCH ×2 (08:22→21:43)
[2021-06-05] MEDS: LISINOPRIL (5MG) 5 MG TABLET GT SCH (08:22)
--- NOTE | 2021-06-05 12:10 | NUR ---
Virtual rounds done with Kennedi Bender NP today. NNO given.
[2021-06-05 12:13] VITALS: BP 123/70
[2021-06-05 19:44] VITALS: BP 143/63
[2021-06-05] MEDS: POLYETHYLENE GLYCOL 3350 17 GM POWD.PACK GT SCH (21:44)
[2021-06-05] MEDS: ATORVASTATIN 10 MG TABLET GT SCH (21:44)
[2021-06-05] MEDS: INSULIN GLARGINE,BASAGLAR 100 UNIT/ML INSULN.PEN SQ SCH (22:09)
[2021-06-05] MEDS: ENOXAPARIN SODIUM 40 MG/0.4 ML DISP.SYRIN SQ SCH (22:10)
[2021-06-06] MEDS: BLOOD SUGAR DIAGNOSTIC 1 EACH STRIP IN SCH ×4 (00:01→17:07)
[2021-06-06] MEDS: INSULIN ASPART/LISPRO 100 UNIT/ML CARTRIDGE SQ PRN ×4 (00:01→17:07)
[2021-06-06] MEDS: POLYVINYL ALCOHOL 15 ML BOTTLE EACHEYE SCH ×4 (00:01→17:07)
[2021-06-06 01:16] VITALS: BP 135/60
[2021-06-06] MEDS: ALBUTEROL FS 2.5 MG/0.5 ML VIAL.NEB NEB SCH ×4 (01:48→20:06)
[2021-06-06] MEDS: IPRATROPIUM NEB FS 0.5 MG/2.5 ML AMPUL.NEB NEB SCH ×4 (01:48→20:06)
[2021-06-06] MEDS: GLUCERNA 1.2 1,000 ML BOTTLE GT PRN (05:36)
[2021-06-06] MEDS: OMEPRAZOLE 20 MG CAPSULE.DR GT SCH (05:36)
[2021-06-06 07:34] VITALS: BP 155/85
[2021-06-06] MEDS: HYDROGEN PEROXIDE 480 ML BOTTLE TP SCH ×2 (08:18→21:24)
[2021-06-06] MEDS: FERROUS SULFATE - FOR SA ONLY 330 MG/7.5 ML UDC GT SCH (08:50)
[2021-06-06] MEDS: DOCUSATE SODIUM LIQ 100 MG/10 ML UDC GT SCH ×2 (08:50→16:52)
[2021-06-06] MEDS: DILTIAZEM HCL 30 MG TABLET GT SCH ×2 (08:50→21:00)
[2021-06-06] MEDS: LEVETIRACETAM SOL (5 ML) 100 MG/ML UDC GT SCH ×2 (08:50→21:05)
[2021-06-06] MEDS: SITAGLIPTIN PHOSPHATE 50 MG TABLET GT SCH (08:50)
[2021-06-06] MEDS: ACIDOPHILUS/BULGARICUS 1 EACH TAB.CHEW GT SCH ×2 (08:51→16:52)
[2021-06-06] MEDS: VITAMINS A AND D 56.7 GM TUBE TP SCH ×4 (08:51→21:05)
[2021-06-06] MEDS: MULTIVIT W/MINERALS 1 TAB TABLET GT SCH (08:51)
[2021-06-06] MEDS: ASCORBIC ACID 500 MG TABLET GT SCH (08:51)
[2021-06-06] MEDS: ZINC SULFATE 220 MG CAPSULE GT SCH (08:51)
[2021-06-06] MEDS: LISINOPRIL (5MG) 5 MG TABLET GT SCH (08:51)
[2021-06-06 20:00] VITALS: BP 101/63
[2021-06-06] MEDS: ATORVASTATIN 10 MG TABLET GT SCH (21:07)
[2021-06-06] MEDS: POLYETHYLENE GLYCOL 3350 17 GM POWD.PACK GT SCH (21:07)
[2021-06-06] MEDS: INSULIN GLARGINE,BASAGLAR 100 UNIT/ML INSULN.PEN SQ SCH (21:12)
[2021-06-06] MEDS: ENOXAPARIN SODIUM 40 MG/0.4 ML DISP.SYRIN SQ SCH (21:12)
[2021-06-07] MEDS: BLOOD SUGAR DIAGNOSTIC 1 EACH STRIP IN SCH ×5 (00:29→23:50)
[2021-06-07] MEDS: POLYVINYL ALCOHOL 15 ML BOTTLE EACHEYE SCH ×5 (00:29→23:50)
[2021-06-07] MEDS: INSULIN ASPART/LISPRO 100 UNIT/ML CARTRIDGE SQ PRN ×5 (00:30→23:51)
[2021-06-07 00:54] VITALS: BP 119/65
[2021-06-07] MEDS: ALBUTEROL FS 2.5 MG/0.5 ML VIAL.NEB NEB SCH ×4 (01:48→19:37)
[2021-06-07] MEDS: IPRATROPIUM NEB FS 0.5 MG/2.5 ML AMPUL.NEB NEB SCH ×4 (01:48→19:37)
[2021-06-07] MEDS: OMEPRAZOLE 20 MG CAPSULE.DR GT SCH (05:33)
[2021-06-07 07:46] VITALS: BP 124/67
[2021-06-07] MEDS: HYDROGEN PEROXIDE 480 ML BOTTLE TP SCH ×2 (08:14→21:45)
[2021-06-07] MEDS: DILTIAZEM HCL 30 MG TABLET GT SCH ×2 (08:55→21:00)
[2021-06-07] MEDS: FERROUS SULFATE - FOR SA ONLY 330 MG/7.5 ML UDC GT SCH (08:55)
[2021-06-07] MEDS: LEVETIRACETAM SOL (5 ML) 100 MG/ML UDC GT SCH ×2 (08:55→21:34)
[2021-06-07] MEDS: DOCUSATE SODIUM LIQ 100 MG/10 ML UDC GT SCH ×2 (08:55→17:14)
[2021-06-07] MEDS: SITAGLIPTIN PHOSPHATE 50 MG TABLET GT SCH (08:55)
[2021-06-07] MEDS: ACIDOPHILUS/BULGARICUS 1 EACH TAB.CHEW GT SCH ×2 (08:56→17:14)
[2021-06-07] MEDS: MULTIVIT W/MINERALS 1 TAB TABLET GT SCH (08:57)
[2021-06-07] MEDS: ASCORBIC ACID 500 MG TABLET GT SCH (08:57)
[2021-06-07] MEDS: ZINC SULFATE 220 MG CAPSULE GT SCH (08:57)
[2021-06-07] MEDS: LISINOPRIL (5MG) 5 MG TABLET GT SCH (08:57)
[2021-06-07] MEDS: VITAMINS A AND D 56.7 GM TUBE TP SCH ×4 (08:57→21:35)
[2021-06-07] MEDS: GLUCERNA 1.2 1,000 ML BOTTLE GT PRN (12:24)
[2021-06-07 13:44] VITALS: BP 136/69
[2021-06-07 20:00] VITALS: BP 102/50
[2021-06-07] MEDS: ATORVASTATIN 10 MG TABLET GT SCH (21:35)
[2021-06-07] MEDS: POLYETHYLENE GLYCOL 3350 17 GM POWD.PACK GT SCH (21:35)
[2021-06-07] MEDS: INSULIN GLARGINE,BASAGLAR 100 UNIT/ML INSULN.PEN SQ SCH (21:36)
[2021-06-07] MEDS: ENOXAPARIN SODIUM 40 MG/0.4 ML DISP.SYRIN SQ SCH (21:37)
[2021-06-08] MEDS: IPRATROPIUM NEB FS 0.5 MG/2.5 ML AMPUL.NEB NEB SCH ×4 (01:53→20:14)
[2021-06-08] MEDS: ALBUTEROL FS 2.5 MG/0.5 ML VIAL.NEB NEB SCH ×4 (01:53→20:14)
[2021-06-08] MEDS: POLYVINYL ALCOHOL 15 ML BOTTLE EACHEYE SCH ×4 (05:55→23:31)
[2021-06-08] MEDS: OMEPRAZOLE 20 MG CAPSULE.DR GT SCH (05:56)
[2021-06-08] MEDS: BLOOD SUGAR DIAGNOSTIC 1 EACH STRIP IN SCH ×4 (05:56→23:31)
[2021-06-08] MEDS: INSULIN ASPART/LISPRO 100 UNIT/ML CARTRIDGE SQ PRN ×4 (05:56→23:31)
[2021-06-08 07:44] VITALS: BP 106/65
[2021-06-08] MEDS: DILTIAZEM HCL 30 MG TABLET GT SCH ×2 (08:06→21:46)
[2021-06-08] MEDS: DOCUSATE SODIUM LIQ 100 MG/10 ML UDC GT SCH ×2 (08:06→16:25)
[2021-06-08] MEDS: SITAGLIPTIN PHOSPHATE 50 MG TABLET GT SCH (08:07)
[2021-06-08] MEDS: FERROUS SULFATE - FOR SA ONLY 330 MG/7.5 ML UDC GT SCH (08:07)
[2021-06-08] MEDS: LISINOPRIL (5MG) 5 MG TABLET GT SCH (08:08)
[2021-06-08] MEDS: LEVETIRACETAM SOL (5 ML) 100 MG/ML UDC GT SCH ×2 (08:08→21:46)
[2021-06-08] MEDS: ACIDOPHILUS/BULGARICUS 1 EACH TAB.CHEW GT SCH ×2 (08:08→16:26)
[2021-06-08] MEDS: ASCORBIC ACID 500 MG TABLET GT SCH (08:09)
[2021-06-08] MEDS: ZINC SULFATE 220 MG CAPSULE GT SCH (08:09)
[2021-06-08] MEDS: MULTIVIT W/MINERALS 1 TAB TABLET GT SCH (08:09)
[2021-06-08] MEDS: VITAMINS A AND D 56.7 GM TUBE TP SCH ×4 (09:00→21:47)
[2021-06-08] MEDS: HYDROGEN PEROXIDE 480 ML BOTTLE TP SCH ×2 (09:01→20:14)
[2021-06-08 13:32] VITALS: BP 118/66
[2021-06-08 20:31] VITALS: BP 118/62
[2021-06-08] MEDS: POLYETHYLENE GLYCOL 3350 17 GM POWD.PACK GT SCH (21:47)
[2021-06-08] MEDS: ATORVASTATIN 10 MG TABLET GT SCH (21:47)
[2021-06-08] MEDS: INSULIN GLARGINE,BASAGLAR 100 UNIT/ML INSULN.PEN SQ SCH (21:48)
[2021-06-08] MEDS: ENOXAPARIN SODIUM 40 MG/0.4 ML DISP.SYRIN SQ SCH (21:48)
[2021-06-09] MEDS: IPRATROPIUM NEB FS 0.5 MG/2.5 ML AMPUL.NEB NEB SCH ×4 (01:59→20:09)
[2021-06-09] MEDS: ALBUTEROL FS 2.5 MG/0.5 ML VIAL.NEB NEB SCH ×4 (01:59→20:09)
[2021-06-09] MEDS: INSULIN ASPART/LISPRO 100 UNIT/ML CARTRIDGE SQ PRN ×3 (06:05→17:47)
[2021-06-09] MEDS: OMEPRAZOLE 20 MG CAPSULE.DR GT SCH (06:05)
[2021-06-09] MEDS: POLYVINYL ALCOHOL 15 ML BOTTLE EACHEYE SCH ×3 (06:05→17:44)
[2021-06-09] MEDS: BLOOD SUGAR DIAGNOSTIC 1 EACH STRIP IN SCH ×3 (06:05→17:44)
[2021-06-09] MEDS: GLUCERNA 1.2 1,000 ML BOTTLE GT PRN (06:09)
[2021-06-09 07:26] VITALS: BP 112/80
[2021-06-09] MEDS: HYDROGEN PEROXIDE 480 ML BOTTLE TP SCH ×2 (08:27→20:10)
[2021-06-09] MEDS: DILTIAZEM HCL 30 MG TABLET GT SCH ×2 (09:57→21:41)
[2021-06-09] MEDS: LEVETIRACETAM SOL (5 ML) 100 MG/ML UDC GT SCH ×2 (09:58→21:41)
[2021-06-09] MEDS: FERROUS SULFATE - FOR SA ONLY 330 MG/7.5 ML UDC GT SCH (09:58)
[2021-06-09] MEDS: DOCUSATE SODIUM LIQ 100 MG/10 ML UDC GT SCH ×2 (09:58→17:44)
[2021-06-09] MEDS: ACIDOPHILUS/BULGARICUS 1 EACH TAB.CHEW GT SCH ×2 (09:58→17:44)
[2021-06-09] MEDS: SITAGLIPTIN PHOSPHATE 50 MG TABLET GT SCH (09:58)
[2021-06-09] MEDS: ASCORBIC ACID 500 MG TABLET GT SCH (09:59)
[2021-06-09] MEDS: ZINC SULFATE 220 MG CAPSULE GT SCH (09:59)
[2021-06-09] MEDS: LISINOPRIL (5MG) 5 MG TABLET GT SCH (09:59)
[2021-06-09] MEDS: MULTIVIT W/MINERALS 1 TAB TABLET GT SCH (09:59)
[2021-06-09] MEDS: VITAMINS A AND D 56.7 GM TUBE TP SCH ×4 (09:59→21:41)
--- NOTE | 2021-06-09 11:04 | NUR ---
Dental Exam : DR. OLIVEIRA completed dental exam on pt. on 04/02/2022. Dr. Oliveira notes state: a) heavy plaque and calculus b) Diagnosis: generalized gingivitis c) Assessment: unable to provide safe dental treatment due to medical condition. Increased chance of aspiration following dental care
[2021-06-09 13:20] VITALS: BP 139/58
[2021-06-09 19:42] VITALS: BP 125/70
[2021-06-09] MEDS: ENOXAPARIN SODIUM 40 MG/0.4 ML DISP.SYRIN SQ SCH (21:41)
[2021-06-09] MEDS: POLYETHYLENE GLYCOL 3350 17 GM POWD.PACK GT SCH (21:41)
[2021-06-09] MEDS: ATORVASTATIN 10 MG TABLET GT SCH (21:41)
[2021-06-09] MEDS: INSULIN GLARGINE,BASAGLAR 100 UNIT/ML INSULN.PEN SQ SCH (21:47)
[2021-06-10] MEDS: BLOOD SUGAR DIAGNOSTIC 1 EACH STRIP IN SCH ×5 (00:15→23:22)
[2021-06-10] MEDS: INSULIN ASPART/LISPRO 100 UNIT/ML CARTRIDGE SQ PRN ×4 (00:15→18:28)
[2021-06-10] MEDS: POLYVINYL ALCOHOL 15 ML BOTTLE EACHEYE SCH ×5 (00:15→23:22)
[2021-06-10 00:32] VITALS: BP 127/73
[2021-06-10] MEDS: ALBUTEROL FS 2.5 MG/0.5 ML VIAL.NEB NEB SCH ×4 (01:20→20:35)
[2021-06-10] MEDS: IPRATROPIUM NEB FS 0.5 MG/2.5 ML AMPUL.NEB NEB SCH ×4 (01:20→20:35)
[2021-06-10] MEDS: OMEPRAZOLE 20 MG CAPSULE.DR GT SCH (05:53)
[2021-06-10] MEDS: GLUCERNA 1.2 1,000 ML BOTTLE GT PRN (05:54)
[2021-06-10 07:21] VITALS: BP 126/78
[2021-06-10] MEDS: HYDROGEN PEROXIDE 480 ML BOTTLE TP SCH ×2 (08:43→20:35)
[2021-06-10] MEDS: FERROUS SULFATE - FOR SA ONLY 330 MG/7.5 ML UDC GT SCH (09:13)
[2021-06-10] MEDS: DOCUSATE SODIUM LIQ 100 MG/10 ML UDC GT SCH ×2 (09:13→16:30)
[2021-06-10] MEDS: DILTIAZEM HCL 30 MG TABLET GT SCH ×2 (09:13→20:44)
[2021-06-10] MEDS: SITAGLIPTIN PHOSPHATE 50 MG TABLET GT SCH (09:14)
[2021-06-10] MEDS: LEVETIRACETAM SOL (5 ML) 100 MG/ML UDC GT SCH ×2 (09:14→20:44)
[2021-06-10] MEDS: ACIDOPHILUS/BULGARICUS 1 EACH TAB.CHEW GT SCH ×2 (09:14→16:30)
[2021-06-10] MEDS: LISINOPRIL (5MG) 5 MG TABLET GT SCH (09:15)
[2021-06-10] MEDS: MULTIVIT W/MINERALS 1 TAB TABLET GT SCH (09:15)
[2021-06-10] MEDS: VITAMINS A AND D 56.7 GM TUBE TP SCH ×4 (09:16→20:44)
[2021-06-10] MEDS: ASCORBIC ACID 500 MG TABLET GT SCH (09:16)
[2021-06-10] MEDS: ZINC SULFATE 220 MG CAPSULE GT SCH (09:16)
[2021-06-10 13:11] VITALS: BP 133/69
[2021-06-10 20:15] VITALS: BP 136/70
[2021-06-10] MEDS: POLYETHYLENE GLYCOL 3350 17 GM POWD.PACK GT SCH (21:07)
[2021-06-10] MEDS: ATORVASTATIN 10 MG TABLET GT SCH (21:07)
[2021-06-10] MEDS: INSULIN GLARGINE,BASAGLAR 100 UNIT/ML INSULN.PEN SQ SCH (21:11)
[2021-06-10] MEDS: ENOXAPARIN SODIUM 40 MG/0.4 ML DISP.SYRIN SQ SCH (21:11)
[2021-06-10 23:55] VITALS: BP 132/77
[2021-06-11] MEDS: IPRATROPIUM NEB FS 0.5 MG/2.5 ML AMPUL.NEB NEB SCH ×4 (02:36→19:07)
[2021-06-11] MEDS: ALBUTEROL FS 2.5 MG/0.5 ML VIAL.NEB NEB SCH ×4 (02:36→19:07)
[2021-06-11] MEDS: POLYVINYL ALCOHOL 15 ML BOTTLE EACHEYE SCH ×4 (05:00→23:51)
[2021-06-11] MEDS: OMEPRAZOLE 20 MG CAPSULE.DR GT SCH (05:00)
[2021-06-11] MEDS: BLOOD SUGAR DIAGNOSTIC 1 EACH STRIP IN SCH ×4 (05:47→23:51)
[2021-06-11] MEDS: INSULIN ASPART/LISPRO 100 UNIT/ML CARTRIDGE SQ PRN ×4 (05:51→23:51)
[2021-06-11] MEDS: GLUCERNA 1.2 1,000 ML BOTTLE GT PRN (05:51)
[2021-06-11 07:20] VITALS: BP 129/84
[2021-06-11] MEDS: HYDROGEN PEROXIDE 480 ML BOTTLE TP SCH ×2 (08:21→21:00)
[2021-06-11] MEDS: DOCUSATE SODIUM LIQ 100 MG/10 ML UDC GT SCH ×2 (08:27→16:55)
[2021-06-11] MEDS: FERROUS SULFATE - FOR SA ONLY 330 MG/7.5 ML UDC GT SCH (08:28)
[2021-06-11] MEDS: SITAGLIPTIN PHOSPHATE 50 MG TABLET GT SCH (08:30)
[2021-06-11] MEDS: DILTIAZEM HCL 30 MG TABLET GT SCH ×2 (08:30→21:40)
[2021-06-11] MEDS: LEVETIRACETAM SOL (5 ML) 100 MG/ML UDC GT SCH ×2 (08:31→21:40)
[2021-06-11] MEDS: ACIDOPHILUS/BULGARICUS 1 EACH TAB.CHEW GT SCH ×2 (08:32→16:55)
[2021-06-11] MEDS: LISINOPRIL (5MG) 5 MG TABLET GT SCH (08:32)
[2021-06-11] MEDS: VITAMINS A AND D 56.7 GM TUBE TP SCH ×4 (08:33→21:40)
[2021-06-11] MEDS: ZINC SULFATE 220 MG CAPSULE GT SCH (08:33)
[2021-06-11] MEDS: ASCORBIC ACID 500 MG TABLET GT SCH (08:33)
[2021-06-11] MEDS: MULTIVIT W/MINERALS 1 TAB TABLET GT SCH (08:33)
[2021-06-11 11:56] VITALS: BP 136/63
--- NOTE | 2021-06-11 14:03 | NUR ---
Latest Visitation Guidelines & Facility Update: informed pt.'s responsible libertarian, Kelly Pantoja via email that, " Facility Update: A [facility] employee tested positive for COVID-19 this week. Residents and staff will continue receiving response testing. We will continue to implement [facility] infection control protocols and continue screening employees before every shift. [facility] continues to follow infection control protocols and screen our residents and staff daily for symptoms". and updated family on the latest visitation guidelines : FOR EACH VISIT, Visitors should be permitted if they show proof of their fully vaccinated status AND regardless of vaccination status, must provide proof of either: A negative PCR test taken within 48 hours prior to entry OR A negative FDA-approved Antigen (rapid test) within 24 hours prior to entry *Visitors who visits for multiple consecutive days are required to show proof of a negative FDA-approved SARS-CoV-2 test at least every third day (E.G. test on day 1 day 4 day 7 an so on) Addendum: 06/16/21 at 1243 by LUIS ALBERTO NOLASCO Correction: " Facility Update: No [facility] employee tested positive for COVID-19 this week. Residents and staff will continue receiving response testing. We will continue to implement [facility] infection control protocols and continue screening employees before every shift. [facility] continues to follow infection control protocols and screen our residents and staff daily for symptoms".
[2021-06-11 19:29] VITALS: BP 111/66
[2021-06-11] MEDS: POLYETHYLENE GLYCOL 3350 17 GM POWD.PACK GT SCH (21:40)
[2021-06-11] MEDS: ATORVASTATIN 10 MG TABLET GT SCH (21:40)
[2021-06-11] MEDS: ENOXAPARIN SODIUM 40 MG/0.4 ML DISP.SYRIN SQ SCH (21:41)
[2021-06-11] MEDS: INSULIN GLARGINE,BASAGLAR 100 UNIT/ML INSULN.PEN SQ SCH (21:42)
[2021-06-12 00:20] VITALS: BP 127/81
[2021-06-12] MEDS: ALBUTEROL FS 2.5 MG/0.5 ML VIAL.NEB NEB SCH ×4 (02:24→19:59)
[2021-06-12] MEDS: IPRATROPIUM NEB FS 0.5 MG/2.5 ML AMPUL.NEB NEB SCH ×4 (02:24→19:59)
[2021-06-12] MEDS: BLOOD SUGAR DIAGNOSTIC 1 EACH STRIP IN SCH ×4 (05:59→23:20)
[2021-06-12] MEDS: OMEPRAZOLE 20 MG CAPSULE.DR GT SCH (05:59)
[2021-06-12] MEDS: POLYVINYL ALCOHOL 15 ML BOTTLE EACHEYE SCH ×4 (05:59→23:20)
[2021-06-12] MEDS: INSULIN ASPART/LISPRO 100 UNIT/ML CARTRIDGE SQ PRN ×4 (06:01→23:20)
--- NOTE | 2021-06-12 06:01 | NUR ---
PATIENT RECEIVED ON 28% AEROSOL T-TUBE, TOLERATING WITH NO DISTRESS/SOB NOTED. SUCTIONED FOR MINIMAL, THIN, WHITE SECRETIONS. GIVEN IN-LINE TREATMENTS WITH NO ADVERSE REACTIONS. AMBU BAG AT BEDSIDE. TRACH CARE DONE. Addendum: 06/12/21 at 0602 by KAISER LAW RT Amended: Links added.
[2021-06-12 07:56] VITALS: BP 107/67
[2021-06-12] MEDS: HYDROGEN PEROXIDE 480 ML BOTTLE TP SCH ×2 (08:34→19:59)
[2021-06-12] MEDS: DILTIAZEM HCL 30 MG TABLET GT SCH ×2 (08:52→21:32)
[2021-06-12] MEDS: SITAGLIPTIN PHOSPHATE 50 MG TABLET GT SCH (08:52)
[2021-06-12] MEDS: FERROUS SULFATE - FOR SA ONLY 330 MG/7.5 ML UDC GT SCH (08:52)
[2021-06-12] MEDS: DOCUSATE SODIUM LIQ 100 MG/10 ML UDC GT SCH ×2 (08:52→17:24)
[2021-06-12] MEDS: LEVETIRACETAM SOL (5 ML) 100 MG/ML UDC GT SCH ×2 (08:52→21:32)
[2021-06-12] MEDS: ACIDOPHILUS/BULGARICUS 1 EACH TAB.CHEW GT SCH ×2 (08:53→17:24)
[2021-06-12] MEDS: LISINOPRIL (5MG) 5 MG TABLET GT SCH (08:53)
[2021-06-12] MEDS: ZINC SULFATE 220 MG CAPSULE GT SCH (08:55)
[2021-06-12] MEDS: ASCORBIC ACID 500 MG TABLET GT SCH (08:55)
[2021-06-12] MEDS: MULTIVIT W/MINERALS 1 TAB TABLET GT SCH (08:55)
[2021-06-12] MEDS: VITAMINS A AND D 56.7 GM TUBE TP SCH ×4 (08:55→21:32)
[2021-06-12 12:30] VITALS: BP 112/68
[2021-06-12] MEDS: GLUCERNA 1.2 1,000 ML BOTTLE GT PRN (18:49)
[2021-06-12 19:17] VITALS: BP 122/67
[2021-06-12] MEDS: ATORVASTATIN 10 MG TABLET GT SCH (21:32)
[2021-06-12] MEDS: POLYETHYLENE GLYCOL 3350 17 GM POWD.PACK GT SCH (21:32)
[2021-06-12] MEDS: INSULIN GLARGINE,BASAGLAR 100 UNIT/ML INSULN.PEN SQ SCH (21:33)
[2021-06-12] MEDS: ENOXAPARIN SODIUM 40 MG/0.4 ML DISP.SYRIN SQ SCH (21:33)
[2021-06-13 00:36] VITALS: BP 108/62
[2021-06-13] MEDS: IPRATROPIUM NEB FS 0.5 MG/2.5 ML AMPUL.NEB NEB SCH ×4 (01:53→20:02)
[2021-06-13] MEDS: ALBUTEROL FS 2.5 MG/0.5 ML VIAL.NEB NEB SCH ×4 (01:53→20:02)
[2021-06-13] MEDS: OMEPRAZOLE 20 MG CAPSULE.DR GT SCH (05:14)
[2021-06-13] MEDS: INSULIN ASPART/LISPRO 100 UNIT/ML CARTRIDGE SQ PRN ×4 (05:14→23:12)
[2021-06-13] MEDS: POLYVINYL ALCOHOL 15 ML BOTTLE EACHEYE SCH ×4 (05:14→23:12)
[2021-06-13] MEDS: BLOOD SUGAR DIAGNOSTIC 1 EACH STRIP IN SCH ×4 (05:14→23:12)
[2021-06-13 07:54] VITALS: BP 115/63
[2021-06-13] MEDS: HYDROGEN PEROXIDE 480 ML BOTTLE TP SCH ×2 (08:53→20:02)
[2021-06-13] MEDS: FERROUS SULFATE - FOR SA ONLY 330 MG/7.5 ML UDC GT SCH (09:04)
[2021-06-13] MEDS: DILTIAZEM HCL 30 MG TABLET GT SCH ×2 (09:04→21:10)
[2021-06-13] MEDS: LEVETIRACETAM SOL (5 ML) 100 MG/ML UDC GT SCH ×2 (09:04→21:10)
[2021-06-13] MEDS: DOCUSATE SODIUM LIQ 100 MG/10 ML UDC GT SCH ×2 (09:04→17:01)
[2021-06-13] MEDS: SITAGLIPTIN PHOSPHATE 50 MG TABLET GT SCH (09:04)
[2021-06-13] MEDS: ACIDOPHILUS/BULGARICUS 1 EACH TAB.CHEW GT SCH ×2 (09:04→17:01)
[2021-06-13] MEDS: MULTIVIT W/MINERALS 1 TAB TABLET GT SCH (09:05)
[2021-06-13] MEDS: ASCORBIC ACID 500 MG TABLET GT SCH (09:05)
[2021-06-13] MEDS: ZINC SULFATE 220 MG CAPSULE GT SCH (09:05)
[2021-06-13] MEDS: LISINOPRIL (5MG) 5 MG TABLET GT SCH (09:05)
[2021-06-13] MEDS: VITAMINS A AND D 56.7 GM TUBE TP SCH ×4 (09:05→21:10)
[2021-06-13 12:32] VITALS: BP 120/67
[2021-06-13] MEDS: GLUCERNA 1.2 1,000 ML BOTTLE GT PRN (18:19)
[2021-06-13 20:13] VITALS: BP 114/64
[2021-06-13] MEDS: ATORVASTATIN 10 MG TABLET GT SCH (21:10)
[2021-06-13] MEDS: POLYETHYLENE GLYCOL 3350 17 GM POWD.PACK GT SCH (21:10)
[2021-06-13] MEDS: INSULIN GLARGINE,BASAGLAR 100 UNIT/ML INSULN.PEN SQ SCH (21:44)
[2021-06-13] MEDS: ENOXAPARIN SODIUM 40 MG/0.4 ML DISP.SYRIN SQ SCH (21:45)
[2021-06-14] MEDS: IPRATROPIUM NEB FS 0.5 MG/2.5 ML AMPUL.NEB NEB SCH ×4 (01:39→19:54)
[2021-06-14] MEDS: ALBUTEROL FS 2.5 MG/0.5 ML VIAL.NEB NEB SCH ×4 (01:39→19:55)
[2021-06-14] MEDS: POLYVINYL ALCOHOL 15 ML BOTTLE EACHEYE SCH ×4 (05:48→23:20)
[2021-06-14] MEDS: BLOOD SUGAR DIAGNOSTIC 1 EACH STRIP IN SCH ×4 (05:48→23:20)
[2021-06-14] MEDS: OMEPRAZOLE 20 MG CAPSULE.DR GT SCH (05:48)
[2021-06-14] MEDS: INSULIN ASPART/LISPRO 100 UNIT/ML CARTRIDGE SQ PRN ×4 (05:50→23:21)
[2021-06-14 08:00] VITALS: BP 124/68
[2021-06-14] MEDS: HYDROGEN PEROXIDE 480 ML BOTTLE TP SCH ×2 (08:53→19:55)
[2021-06-14] MEDS: FERROUS SULFATE - FOR SA ONLY 330 MG/7.5 ML UDC GT SCH (09:00)
[2021-06-14] MEDS: ASCORBIC ACID 500 MG TABLET GT SCH (09:00)
[2021-06-14] MEDS: LISINOPRIL (5MG) 5 MG TABLET GT SCH (09:00)
[2021-06-14] MEDS: VITAMINS A AND D 56.7 GM TUBE TP SCH ×4 (09:00→20:45)
[2021-06-14] MEDS: LEVETIRACETAM SOL (5 ML) 100 MG/ML UDC GT SCH ×2 (09:00→20:45)
[2021-06-14] MEDS: ACIDOPHILUS/BULGARICUS 1 EACH TAB.CHEW GT SCH ×2 (09:00→17:56)
[2021-06-14] MEDS: SITAGLIPTIN PHOSPHATE 50 MG TABLET GT SCH (09:00)
[2021-06-14] MEDS: ZINC SULFATE 220 MG CAPSULE GT SCH (09:00)
[2021-06-14] MEDS: MULTIVIT W/MINERALS 1 TAB TABLET GT SCH (09:00)
[2021-06-14] MEDS: DILTIAZEM HCL 30 MG TABLET GT SCH ×2 (09:00→20:45)
[2021-06-14] MEDS: DOCUSATE SODIUM LIQ 100 MG/10 ML UDC GT SCH ×2 (09:00→17:56)
[2021-06-14 12:00] VITALS: BP 149/79
[2021-06-14 20:27] VITALS: BP 133/64
[2021-06-14] MEDS: ATORVASTATIN 10 MG TABLET GT SCH (21:28)
[2021-06-14] MEDS: POLYETHYLENE GLYCOL 3350 17 GM POWD.PACK GT SCH (21:28)
[2021-06-14] MEDS: INSULIN GLARGINE,BASAGLAR 100 UNIT/ML INSULN.PEN SQ SCH (21:30)
[2021-06-14] MEDS: ENOXAPARIN SODIUM 40 MG/0.4 ML DISP.SYRIN SQ SCH (21:30)
[2021-06-15] MEDS: GLUCERNA 1.2 1,000 ML BOTTLE GT PRN (01:09)
[2021-06-15] MEDS: ALBUTEROL FS 2.5 MG/0.5 ML VIAL.NEB NEB SCH ×4 (01:51→20:04)
[2021-06-15] MEDS: IPRATROPIUM NEB FS 0.5 MG/2.5 ML AMPUL.NEB NEB SCH ×4 (01:51→20:04)
[2021-06-15] MEDS: POLYVINYL ALCOHOL 15 ML BOTTLE EACHEYE SCH ×4 (05:30→23:45)
[2021-06-15] MEDS: BLOOD SUGAR DIAGNOSTIC 1 EACH STRIP IN SCH ×4 (05:30→23:45)
[2021-06-15] MEDS: OMEPRAZOLE 20 MG CAPSULE.DR GT SCH (05:30)
[2021-06-15] MEDS: INSULIN ASPART/LISPRO 100 UNIT/ML CARTRIDGE SQ PRN ×4 (05:31→23:46)
[2021-06-15 08:03] VITALS: BP 111/53
[2021-06-15] MEDS: LEVETIRACETAM SOL (5 ML) 100 MG/ML UDC GT SCH ×2 (08:16→21:35)
[2021-06-15] MEDS: DOCUSATE SODIUM LIQ 100 MG/10 ML UDC GT SCH ×2 (08:16→16:27)
[2021-06-15] MEDS: ACIDOPHILUS/BULGARICUS 1 EACH TAB.CHEW GT SCH ×2 (08:16→16:27)
[2021-06-15] MEDS: FERROUS SULFATE - FOR SA ONLY 330 MG/7.5 ML UDC GT SCH (08:16)
[2021-06-15] MEDS: SITAGLIPTIN PHOSPHATE 50 MG TABLET GT SCH (08:16)
[2021-06-15] MEDS: DILTIAZEM HCL 30 MG TABLET GT SCH ×2 (08:16→21:00)
[2021-06-15] MEDS: LISINOPRIL (5MG) 5 MG TABLET GT SCH (08:17)
[2021-06-15] MEDS: ASCORBIC ACID 500 MG TABLET GT SCH (08:17)
[2021-06-15] MEDS: ZINC SULFATE 220 MG CAPSULE GT SCH (08:17)
[2021-06-15] MEDS: MULTIVIT W/MINERALS 1 TAB TABLET GT SCH (08:17)
[2021-06-15] MEDS: HYDROGEN PEROXIDE 480 ML BOTTLE TP SCH ×2 (08:18→20:04)
[2021-06-15] MEDS: VITAMINS A AND D 56.7 GM TUBE TP SCH ×4 (09:00→21:35)
[2021-06-15 12:11] VITALS: BP 115/62
[2021-06-15 20:46] VITALS: BP 109/61
[2021-06-15] MEDS: POLYETHYLENE GLYCOL 3350 17 GM POWD.PACK GT SCH (21:35)
[2021-06-15] MEDS: ATORVASTATIN 10 MG TABLET GT SCH (21:35)
[2021-06-15] MEDS: ENOXAPARIN SODIUM 40 MG/0.4 ML DISP.SYRIN SQ SCH (21:36)
[2021-06-15] MEDS: INSULIN GLARGINE,BASAGLAR 100 UNIT/ML INSULN.PEN SQ SCH (21:36)
[2021-06-16] MEDS: IPRATROPIUM NEB FS 0.5 MG/2.5 ML AMPUL.NEB NEB SCH ×4 (01:30→19:16)
[2021-06-16] MEDS: ALBUTEROL FS 2.5 MG/0.5 ML VIAL.NEB NEB SCH ×4 (01:30→19:17)
[2021-06-16] MEDS: OMEPRAZOLE 20 MG CAPSULE.DR GT SCH (05:45)
[2021-06-16] MEDS: INSULIN ASPART/LISPRO 100 UNIT/ML CARTRIDGE SQ PRN ×4 (05:45→23:49)
[2021-06-16] MEDS: POLYVINYL ALCOHOL 15 ML BOTTLE EACHEYE SCH ×4 (05:45→23:49)
[2021-06-16] MEDS: BLOOD SUGAR DIAGNOSTIC 1 EACH STRIP IN SCH ×4 (05:45→23:49)
[2021-06-16 07:34] VITALS: BP 118/74
[2021-06-16] MEDS: HYDROGEN PEROXIDE 480 ML BOTTLE TP SCH ×2 (08:37→19:17)
[2021-06-16] MEDS: SITAGLIPTIN PHOSPHATE 50 MG TABLET GT SCH (09:54)
[2021-06-16] MEDS: LEVETIRACETAM SOL (5 ML) 100 MG/ML UDC GT SCH ×2 (09:54→21:23)
[2021-06-16] MEDS: FERROUS SULFATE - FOR SA ONLY 330 MG/7.5 ML UDC GT SCH (09:54)
[2021-06-16] MEDS: DILTIAZEM HCL 30 MG TABLET GT SCH ×2 (09:54→21:23)
[2021-06-16] MEDS: DOCUSATE SODIUM LIQ 100 MG/10 ML UDC GT SCH ×2 (09:54→17:00)
[2021-06-16] MEDS: VITAMINS A AND D 56.7 GM TUBE TP SCH ×4 (09:55→21:23)
[2021-06-16] MEDS: ASCORBIC ACID 500 MG TABLET GT SCH (09:55)
[2021-06-16] MEDS: ZINC SULFATE 220 MG CAPSULE GT SCH (09:55)
[2021-06-16] MEDS: ACIDOPHILUS/BULGARICUS 1 EACH TAB.CHEW GT SCH ×2 (09:55→17:00)
[2021-06-16] MEDS: MULTIVIT W/MINERALS 1 TAB TABLET GT SCH (09:55)
[2021-06-16] MEDS: LISINOPRIL (5MG) 5 MG TABLET GT SCH (09:55)
[2021-06-16 12:13] VITALS: BP 116/66
[2021-06-16] MEDS: GLUCERNA 1.2 1,000 ML BOTTLE GT PRN (13:06)
[2021-06-16 19:28] VITALS: BP 136/85
[2021-06-16] MEDS: ATORVASTATIN 10 MG TABLET GT SCH (21:23)
[2021-06-16] MEDS: POLYETHYLENE GLYCOL 3350 17 GM POWD.PACK GT SCH (21:23)
[2021-06-16] MEDS: INSULIN GLARGINE,BASAGLAR 100 UNIT/ML INSULN.PEN SQ SCH (21:24)
[2021-06-16] MEDS: ENOXAPARIN SODIUM 40 MG/0.4 ML DISP.SYRIN SQ SCH (21:25)
[2021-06-16 23:58] VITALS: BP 103/61
[2021-06-17] MEDS: IPRATROPIUM NEB FS 0.5 MG/2.5 ML AMPUL.NEB NEB SCH ×4 (01:27→19:36)
[2021-06-17] MEDS: ALBUTEROL FS 2.5 MG/0.5 ML VIAL.NEB NEB SCH ×4 (01:27→19:36)
[2021-06-17] MEDS: BLOOD SUGAR DIAGNOSTIC 1 EACH STRIP IN SCH ×4 (05:55→23:48)
[2021-06-17] MEDS: POLYVINYL ALCOHOL 15 ML BOTTLE EACHEYE SCH ×4 (05:55→23:45)
[2021-06-17] MEDS: INSULIN ASPART/LISPRO 100 UNIT/ML CARTRIDGE SQ PRN ×4 (05:55→23:51)
[2021-06-17] MEDS: OMEPRAZOLE 20 MG CAPSULE.DR GT SCH (05:55)
--- NOTE | 2021-06-17 05:59 | NUR ---
PATIENT RECEIVED ON 28% AEROSOL T-TUBE, TOLERATING WITH NO DISTRESS/SOB NOTED. SUCTIONED FOR MINIMAL, THIN, WHITE SECRETIONS. GIVEN IN-LINE TREATMENTS WITH NO ADVERSE REACTIONS. AMBU BAG AT BEDSIDE. TRACH CARE DONE. Addendum: 06/17/21 at 0600 by KAISER LAW RT Amended: Links added.
[2021-06-17 07:50] VITALS: BP 107/66
[2021-06-17] MEDS: HYDROGEN PEROXIDE 480 ML BOTTLE TP SCH ×2 (07:54→20:54)
[2021-06-17] MEDS: ZINC SULFATE 220 MG CAPSULE GT SCH (09:00)
[2021-06-17] MEDS: LISINOPRIL (5MG) 5 MG TABLET GT SCH (09:00)
[2021-06-17] MEDS: ASCORBIC ACID 500 MG TABLET GT SCH (09:00)
[2021-06-17] MEDS: VITAMINS A AND D 56.7 GM TUBE TP SCH ×4 (09:00→20:25)
[2021-06-17] MEDS: LEVETIRACETAM SOL (5 ML) 100 MG/ML UDC GT SCH ×2 (09:00→21:24)
[2021-06-17] MEDS: FERROUS SULFATE - FOR SA ONLY 330 MG/7.5 ML UDC GT SCH (09:00)
[2021-06-17] MEDS: MULTIVIT W/MINERALS 1 TAB TABLET GT SCH (09:00)
[2021-06-17] MEDS: DOCUSATE SODIUM LIQ 100 MG/10 ML UDC GT SCH ×2 (09:00→17:52)
[2021-06-17] MEDS: DILTIAZEM HCL 30 MG TABLET GT SCH ×2 (09:00→21:00)
[2021-06-17] MEDS: ACIDOPHILUS/BULGARICUS 1 EACH TAB.CHEW GT SCH ×2 (09:00→17:52)
[2021-06-17] MEDS: SITAGLIPTIN PHOSPHATE 50 MG TABLET GT SCH (09:00)
[2021-06-17 12:00] VITALS: BP 144/86
[2021-06-17 12:11] VITALS: BP 115/58
[2021-06-17 18:42] VITALS: BP 108/64
[2021-06-17 19:51] VITALS: BP 108/58
[2021-06-17] MEDS: GLUCERNA 1.2 1,000 ML BOTTLE GT PRN (19:52)
[2021-06-17] MEDS: ATORVASTATIN 10 MG TABLET GT SCH (21:24)
[2021-06-17] MEDS: POLYETHYLENE GLYCOL 3350 17 GM POWD.PACK GT SCH (21:24)
[2021-06-17] MEDS: ENOXAPARIN SODIUM 40 MG/0.4 ML DISP.SYRIN SQ SCH (21:37)
[2021-06-17] MEDS: INSULIN GLARGINE,BASAGLAR 100 UNIT/ML INSULN.PEN SQ SCH (21:49)
--- NOTE | 2021-06-17 21:49 | NUR ---
BLOOD GLUCOSE ACCU CHECK RN bar code able to scan but not appeared on laboratory POC Glucose test flow sheet. Insulin Glargine given co signed by CLARE Lee.
--- NOTE | 2021-06-17 23:22 | NUR ---
FEVER 2316 Elevated Temp 101.1 Patient in no respiratory distress. Cooling measure provided, Tylenol given. Will reassess temp.
[2021-06-18 00:07] VITALS: BP 150/93
--- NOTE | 2021-06-18 00:37 | NUR ---
TEMP 0016 Fever slowly improving after Tylenol was given. Now 100F oral. Cont ice pack.
[2021-06-18] MEDS: ALBUTEROL FS 2.5 MG/0.5 ML VIAL.NEB NEB SCH ×4 (00:44→19:52)
[2021-06-18] MEDS: IPRATROPIUM NEB FS 0.5 MG/2.5 ML AMPUL.NEB NEB SCH ×4 (00:44→19:52)
[2021-06-18] MEDS: OMEPRAZOLE 20 MG CAPSULE.DR GT SCH (05:01)
[2021-06-18] MEDS: POLYVINYL ALCOHOL 15 ML BOTTLE EACHEYE SCH ×3 (05:01→17:31)
[2021-06-18] MEDS: BLOOD SUGAR DIAGNOSTIC 1 EACH STRIP IN SCH ×3 (05:32→18:26)
[2021-06-18] MEDS: INSULIN ASPART/LISPRO 100 UNIT/ML CARTRIDGE SQ PRN ×3 (05:32→18:32)
--- NOTE | 2021-06-18 05:55 | NUR ---
FEVER 0555 Temp curved down to 99.8F. Patient in no respiratory distress.
--- NOTE | 2021-06-18 06:38 | NUR ---
BLOOD GLUCOSE- 108mg/dl 0532 ACCU CHECK RN bar code able to scan but result not appeared on laboratory POC Glucose test flow sheet.
[2021-06-18 07:42] VITALS: BP 98/48
[2021-06-18] MEDS: HYDROGEN PEROXIDE 480 ML BOTTLE TP SCH ×2 (07:55→20:28)
--- NOTE | 2021-06-18 08:10 | NUR ---
Received an order from MILLY Franklin, to do labs and cultures due to spike n temperature last night. RELIGIOUS RITUAL SLAUGHTERER also ordered Merrem 500 mg. Q 8 hours. Attempted to call and notify family but unable to leave a message. Orders carried out.
[2021-06-18] MEDS: ASCORBIC ACID 500 MG TABLET GT SCH (09:00)
[2021-06-18] MEDS: ZINC SULFATE 220 MG CAPSULE GT SCH (09:00)
[2021-06-18] MEDS: MULTIVIT W/MINERALS 1 TAB TABLET GT SCH (09:00)
[2021-06-18] MEDS: VITAMINS A AND D 56.7 GM TUBE TP SCH ×4 (09:00→21:11)
[2021-06-18] MEDS: DILTIAZEM HCL 30 MG TABLET GT SCH ×2 (09:00→21:11)
[2021-06-18] MEDS: LISINOPRIL (5MG) 5 MG TABLET GT SCH (09:00)
[2021-06-18] MEDS: DOCUSATE SODIUM LIQ 100 MG/10 ML UDC GT SCH ×2 (09:57→17:31)
[2021-06-18] MEDS: FERROUS SULFATE - FOR SA ONLY 330 MG/7.5 ML UDC GT SCH (09:57)
[2021-06-18] MEDS: SITAGLIPTIN PHOSPHATE 50 MG TABLET GT SCH (09:58)
[2021-06-18] MEDS: LEVETIRACETAM SOL (5 ML) 100 MG/ML UDC GT SCH ×2 (09:59→21:11)
[2021-06-18] MEDS: ACIDOPHILUS/BULGARICUS 1 EACH TAB.CHEW GT SCH ×2 (09:59→17:31)
--- NOTE | 2021-06-18 10:53 | NUR ---
Blood culture not done yet, tinner automatic unable to obtain specimen. Will start ATB as soon as IV live is available.
--- NOTE | 2021-06-18 12:00 | NUR ---
Spoke with [facility] IV pharmacist and recommended to increase current dose of Merrem. SCALE TECHNICIAN Nera in agreement. Obtain order for midline insertion as well. Nursing fruit grading supervisor informed. Midline inserted in the R upper arm G 18, by PICC line nurse. Patient tolerated procedure.
[2021-06-18 12:41] VITALS: BP 149/96
[2021-06-18] MEDS: MEROPENEM 1 G in IV NS 0.9% 100 ML IV SCH ×2 (13:00→20:59)
[2021-06-18] MEDS ORDERED: MEROPENEM 500 MG in IV NS 0.9% 50 ML IV SCH ×4 (13:00)
[2021-06-18 13:17] LABS: BASOPHILS % (AUTO) 0.7 % (0.0-2.0); EOSINOPHILS % (AUTO) 0.7 % (0.0-6.0); HEMATOCRIT 36 % (33-45); HEMOGLOBIN 12.1 g/dL (11.5-14.8); LYMPHOCYTES # (AUTO) 1.4 K/uL (0.8-4.8); LYMPHOCYTES % (AUTO) 25.6 % (20.0-44.0); MEAN CORPUSCULAR HGB CONC 33 g/dl (31.0-36.0); MEAN CORPUSCULAR VOLUME 92 fL (82-100); MONOCYTES # (AUTO) 0.6 K/uL (0.1-1.30); MONOCYTES % (AUTO) 10.7 % (2.0-12.0); NEUTROPHILS # (AUTO) 3.5 K/uL (1.8-8.9); NEUTROPHILS % (AUTO) 62.3 % (43.0-81.0); PLATELET COUNT (AUTO) 305 K/uL (150-450); RED BLOOD CELL COUNT(AUTO) 3.94 MIL/uL (4.0-5.2); WHITE BLOOD COUNT (AUTO) 5.7 K/uL (4.3-11.0)
--- NOTE | 2021-06-18 13:30 | NUR ---
Several attempts to call patient's daughter to inform of patient's condition but when dialing her number it says " The person you have dialed is unable to receive call at this time. Requested SSD to notify family via emal.
[2021-06-18 13:48] LABS: CALCIUM, SERUM 9.1 mg/dL (8.5-10.1); CREATININE 1.2 mg/dL (0.6-1.3); POTASSIUM 5.2 mmol/L (3.5-5.1)
--- NOTE | 2021-06-18 14:59 | NUR ---
INTERDISCIPLINARY PLAN OF CARE CONFERENCE took place today. The patients responsible democrat, Nathanmonica [phone] Capone and Interdisciplinary team discussed the plan of care in detail. Current orders as well as treatments and medications were reviewed. See team conference notes for details.
--- NOTE | 2021-06-18 17:59 | NUR ---
Patient's daughter called back, stated that she received the email sent by transition social worker. Updated Kelly of patient's condition, informed that patient developed fever yesterday, labs were drawn, blood and urine culture sent and antibiotic started Kelly said she is in the process of changing her phone number and gave a temporary number to call . Endorsed.
--- NOTE | 2021-06-18 18:00 | NUR ---
Residents daughter Kelly also informed that since patient is biting her lips it was noted that lower lips has tissue overgrowth. She said that she would like to see it and suggested that will request SSD to email her a copy of he picture She also wants Activity to do video call tomorrow morning to see patient. Endorsed.
[2021-06-18 19:53] VITALS: BP 111/61
[2021-06-18] MEDS: POLYETHYLENE GLYCOL 3350 17 GM POWD.PACK GT SCH (21:11)
[2021-06-18] MEDS: ENOXAPARIN SODIUM 40 MG/0.4 ML DISP.SYRIN SQ SCH (21:11)
[2021-06-18] MEDS: ATORVASTATIN 10 MG TABLET GT SCH (21:11)
[2021-06-18] MEDS: INSULIN GLARGINE,BASAGLAR 100 UNIT/ML INSULN.PEN SQ SCH (21:55)
[2021-06-19 00:07] VITALS: BP 121/75
[2021-06-19] MEDS: GLUCERNA 1.2 1,000 ML BOTTLE GT PRN (00:28)
[2021-06-19] MEDS: IPRATROPIUM NEB FS 0.5 MG/2.5 ML AMPUL.NEB NEB SCH ×4 (00:34→20:14)
[2021-06-19] MEDS: ALBUTEROL FS 2.5 MG/0.5 ML VIAL.NEB NEB SCH ×4 (00:34→20:14)
[2021-06-19] MEDS: BLOOD SUGAR DIAGNOSTIC 1 EACH STRIP IN SCH ×4 (00:44→18:12)
[2021-06-19] MEDS: POLYVINYL ALCOHOL 15 ML BOTTLE EACHEYE SCH ×4 (00:44→18:12)
[2021-06-19] MEDS: INSULIN ASPART/LISPRO 100 UNIT/ML CARTRIDGE SQ PRN ×4 (00:45→18:13)
[2021-06-19] MEDS: MEROPENEM 1 G in IV NS 0.9% 100 ML IV SCH ×3 (05:19→21:58)
[2021-06-19] MEDS: OMEPRAZOLE 20 MG CAPSULE.DR GT SCH (05:31)
[2021-06-19 07:33] VITALS: BP 110/71
[2021-06-19] MEDS: HYDROGEN PEROXIDE 480 ML BOTTLE TP SCH ×2 (08:18→21:15)
[2021-06-19] MEDS: DILTIAZEM HCL 30 MG TABLET GT SCH ×2 (09:00→21:06)
[2021-06-19] MEDS: MULTIVIT W/MINERALS 1 TAB TABLET GT SCH (09:26)
[2021-06-19] MEDS: SITAGLIPTIN PHOSPHATE 50 MG TABLET GT SCH (09:26)
[2021-06-19] MEDS: FERROUS SULFATE - FOR SA ONLY 330 MG/7.5 ML UDC GT SCH (09:26)
[2021-06-19] MEDS: ACIDOPHILUS/BULGARICUS 1 EACH TAB.CHEW GT SCH ×2 (09:26→17:00)
[2021-06-19] MEDS: LEVETIRACETAM SOL (5 ML) 100 MG/ML UDC GT SCH ×2 (09:26→21:06)
[2021-06-19] MEDS: ASCORBIC ACID 500 MG TABLET GT SCH (09:26)
[2021-06-19] MEDS: DOCUSATE SODIUM LIQ 100 MG/10 ML UDC GT SCH ×2 (09:26→17:00)
[2021-06-19] MEDS: LISINOPRIL (5MG) 5 MG TABLET GT SCH (09:26)
[2021-06-19] MEDS: ZINC SULFATE 220 MG CAPSULE GT SCH (09:27)
[2021-06-19] MEDS: VITAMINS A AND D 56.7 GM TUBE TP SCH ×4 (09:27→21:06)
[2021-06-19 12:09] VITALS: BP 101/52
[2021-06-19 20:26] VITALS: BP 120/64
[2021-06-19] MEDS: ATORVASTATIN 10 MG TABLET GT SCH (21:06)
[2021-06-19] MEDS: POLYETHYLENE GLYCOL 3350 17 GM POWD.PACK GT SCH (21:06)
[2021-06-19] MEDS: ENOXAPARIN SODIUM 40 MG/0.4 ML DISP.SYRIN SQ SCH (21:07)
[2021-06-19] MEDS: INSULIN GLARGINE,BASAGLAR 100 UNIT/ML INSULN.PEN SQ SCH (21:35)
[2021-06-20] MEDS: BLOOD SUGAR DIAGNOSTIC 1 EACH STRIP IN SCH ×5 (00:29→23:27)
[2021-06-20] MEDS: POLYVINYL ALCOHOL 15 ML BOTTLE EACHEYE SCH ×5 (00:29→23:27)
[2021-06-20] MEDS: GLUCERNA 1.2 1,000 ML BOTTLE GT PRN ×2 (00:29→16:23)
[2021-06-20] MEDS: INSULIN ASPART/LISPRO 100 UNIT/ML CARTRIDGE SQ PRN ×3 (00:30→23:27)
[2021-06-20 01:04] VITALS: BP 107/64
[2021-06-20] MEDS: ALBUTEROL FS 2.5 MG/0.5 ML VIAL.NEB NEB SCH ×4 (01:47→20:05)
[2021-06-20] MEDS: IPRATROPIUM NEB FS 0.5 MG/2.5 ML AMPUL.NEB NEB SCH ×4 (01:47→20:05)
[2021-06-20] MEDS: MEROPENEM 1 G in IV NS 0.9% 100 ML IV SCH ×3 (04:25→21:30)
[2021-06-20] MEDS: OMEPRAZOLE 20 MG CAPSULE.DR GT SCH (05:43)
[2021-06-20 06:10] VITALS: BP 122/72
[2021-06-20 07:32] VITALS: BP 123/76
[2021-06-20] MEDS: HYDROGEN PEROXIDE 480 ML BOTTLE TP SCH ×2 (08:07→20:05)
[2021-06-20 08:41] LABS: BASOPHILS # (AUTO) 0.1 K/uL (0.0-0.2); BASOPHILS % (AUTO) 1.2 % (0.0-2.0); EOSINOPHILS % (AUTO) 3.2 % (0.0-6.0); HEMATOCRIT 40 % (33-45); HEMOGLOBIN 13.3 g/dL (11.5-14.8); LYMPHOCYTES # (AUTO) 2.9 K/uL (0.8-4.8); MEAN CORPUSCULAR HGB CONC 33 g/dl (31.0-36.0); MEAN CORPUSCULAR VOLUME 92 fL (82-100); MONOCYTES % (AUTO) 17.4 % (2.0-12.0); NEUTROPHILS # (AUTO) 1.7 K/uL (1.8-8.9); NEUTROPHILS % (AUTO) 28.2 % (43.0-81.0); PLATELET COUNT (AUTO) 274 K/uL (150-450); WHITE BLOOD COUNT (AUTO) 5.9 K/uL (4.3-11.0)
[2021-06-20] MEDS: MULTIVIT W/MINERALS 1 TAB TABLET GT SCH (09:00)
[2021-06-20] MEDS: LEVETIRACETAM SOL (5 ML) 100 MG/ML UDC GT SCH ×2 (09:00→21:55)
[2021-06-20] MEDS: VITAMINS A AND D 56.7 GM TUBE TP SCH ×4 (09:00→21:55)
[2021-06-20] MEDS: ASCORBIC ACID 500 MG TABLET GT SCH (09:00)
[2021-06-20] MEDS: FERROUS SULFATE - FOR SA ONLY 330 MG/7.5 ML UDC GT SCH (09:00)
[2021-06-20] MEDS: SITAGLIPTIN PHOSPHATE 50 MG TABLET GT SCH (09:00)
[2021-06-20] MEDS: ZINC SULFATE 220 MG CAPSULE GT SCH (09:00)
[2021-06-20] MEDS: DOCUSATE SODIUM LIQ 100 MG/10 ML UDC GT SCH ×2 (09:00→17:24)
[2021-06-20] MEDS: LISINOPRIL (5MG) 5 MG TABLET GT SCH (09:00)
[2021-06-20] MEDS: ACIDOPHILUS/BULGARICUS 1 EACH TAB.CHEW GT SCH ×2 (09:00→17:24)
[2021-06-20 09:44] LABS: CALCIUM, SERUM 9.1 mg/dL (8.5-10.1); CREATININE 1.1 mg/dL (0.6-1.3); MAGNESIUM 2.4 mg/dL (1.8-2.4); PHOSPHORUS 3.4 mg/dL (2.5-4.9); POTASSIUM 4.7 mmol/L (3.5-5.1)
[2021-06-20] MEDS: DILTIAZEM HCL 30 MG TABLET GT SCH ×2 (09:59→21:00)
[2021-06-20 11:08] LABS: LYMPHOCYTES % (MANUAL) 58 % (16-48); NEUTROPHILS % (MANUAL) 24 (42-76)
[2021-06-20 11:09] LABS: EOSINOPHILS % (MANUAL) 3 % (0-4); MONOCYTES % (MANUAL) 15 % (0-11.0)
[2021-06-20 12:05] VITALS: BP 131/76
[2021-06-20 20:37] VITALS: BP 101/59
[2021-06-20] MEDS: POLYETHYLENE GLYCOL 3350 17 GM POWD.PACK GT SCH (21:55)
[2021-06-20] MEDS: ATORVASTATIN 10 MG TABLET GT SCH (21:55)
[2021-06-20] MEDS: INSULIN GLARGINE,BASAGLAR 100 UNIT/ML INSULN.PEN SQ SCH (21:56)
[2021-06-20] MEDS: ENOXAPARIN SODIUM 40 MG/0.4 ML DISP.SYRIN SQ SCH (21:56)
[2021-06-21] MEDS: IPRATROPIUM NEB FS 0.5 MG/2.5 ML AMPUL.NEB NEB SCH ×4 (02:16→19:05)
[2021-06-21] MEDS: ALBUTEROL FS 2.5 MG/0.5 ML VIAL.NEB NEB SCH ×4 (02:16→19:05)
[2021-06-21] MEDS: MEROPENEM 1 G in IV NS 0.9% 100 ML IV SCH ×3 (05:00→21:00)
[2021-06-21] MEDS: POLYVINYL ALCOHOL 15 ML BOTTLE EACHEYE SCH ×3 (05:28→17:38)
[2021-06-21] MEDS: OMEPRAZOLE 20 MG CAPSULE.DR GT SCH (05:28)
[2021-06-21] MEDS: BLOOD SUGAR DIAGNOSTIC 1 EACH STRIP IN SCH ×3 (05:28→17:38)
[2021-06-21] MEDS: INSULIN ASPART/LISPRO 100 UNIT/ML CARTRIDGE SQ PRN ×3 (05:29→17:41)
[2021-06-21 07:27] VITALS: BP 115/69
[2021-06-21] MEDS: HYDROGEN PEROXIDE 480 ML BOTTLE TP SCH ×2 (08:54→21:39)
[2021-06-21] MEDS: FERROUS SULFATE - FOR SA ONLY 330 MG/7.5 ML UDC GT SCH (09:23)
[2021-06-21] MEDS: SITAGLIPTIN PHOSPHATE 50 MG TABLET GT SCH (09:23)
[2021-06-21] MEDS: ACIDOPHILUS/BULGARICUS 1 EACH TAB.CHEW GT SCH ×2 (09:23→17:38)
[2021-06-21] MEDS: DILTIAZEM HCL 30 MG TABLET GT SCH ×2 (09:23→21:00)
[2021-06-21] MEDS: LEVETIRACETAM SOL (5 ML) 100 MG/ML UDC GT SCH ×2 (09:23→21:12)
[2021-06-21] MEDS: DOCUSATE SODIUM LIQ 100 MG/10 ML UDC GT SCH ×2 (09:23→17:38)
[2021-06-21] MEDS: ZINC SULFATE 220 MG CAPSULE GT SCH (09:24)
[2021-06-21] MEDS: MULTIVIT W/MINERALS 1 TAB TABLET GT SCH (09:24)
[2021-06-21] MEDS: ASCORBIC ACID 500 MG TABLET GT SCH (09:24)
[2021-06-21] MEDS: VITAMINS A AND D 56.7 GM TUBE TP SCH ×4 (09:24→21:13)
[2021-06-21] MEDS: LISINOPRIL (5MG) 5 MG TABLET GT SCH (09:24)
--- NOTE | 2021-06-21 12:20 | NUR ---
Rokc Pinon entered electronic order to do blood culture x 2 and to start Vancomycin IV pharmacy to dose for bloodstream infection.
[2021-06-21 13:22] VITALS: BP 126/76
[2021-06-21] MEDS: VANCOMYCIN 1.25 GM in IV D5W 250 ML IV SCH (15:00)
--- NOTE | 2021-06-21 15:00 | NUR ---
[facility] pharmacist [place] gave dose for Vancomycin 1.25 grams IV q 24 hrs for bloodstream infection x 5 days per protocol, 1st dose taken from the e-kit, covered by insurance. Vanco trough, BUN, crea on 06/24/21 at 1430, requested. Afebrile, no hematria or s/sx of pain noted. Will continue to monitor.
[2021-06-21] MEDS: GLUCERNA 1.2 1,000 ML BOTTLE GT PRN (17:48)
[2021-06-21 20:18] VITALS: BP 99/68
[2021-06-21] MEDS: ATORVASTATIN 10 MG TABLET GT SCH (21:13)
[2021-06-21] MEDS: POLYETHYLENE GLYCOL 3350 17 GM POWD.PACK GT SCH (21:13)
[2021-06-21] MEDS: INSULIN GLARGINE,BASAGLAR 100 UNIT/ML INSULN.PEN SQ SCH (21:15)
[2021-06-21] MEDS: ENOXAPARIN SODIUM 40 MG/0.4 ML DISP.SYRIN SQ SCH (21:15)
[2021-06-22] MEDS: BLOOD SUGAR DIAGNOSTIC 1 EACH STRIP IN SCH ×5 (00:14→23:28)
[2021-06-22] MEDS: POLYVINYL ALCOHOL 15 ML BOTTLE EACHEYE SCH ×5 (00:14→23:28)
[2021-06-22 00:53] VITALS: BP 113/68
[2021-06-22] MEDS: ALBUTEROL FS 2.5 MG/0.5 ML VIAL.NEB NEB SCH ×4 (01:59→19:56)
[2021-06-22] MEDS: IPRATROPIUM NEB FS 0.5 MG/2.5 ML AMPUL.NEB NEB SCH ×4 (01:59→19:56)
[2021-06-22] MEDS: MEROPENEM 1 G in IV NS 0.9% 100 ML IV SCH ×3 (05:00→21:56)
[2021-06-22] MEDS: OMEPRAZOLE 20 MG CAPSULE.DR GT SCH (05:14)
[2021-06-22 07:41] VITALS: BP 126/62
[2021-06-22] MEDS: HYDROGEN PEROXIDE 480 ML BOTTLE TP SCH ×2 (08:07→19:59)
[2021-06-22] MEDS: DILTIAZEM HCL 30 MG TABLET GT SCH ×2 (08:13→21:45)
[2021-06-22] MEDS: FERROUS SULFATE - FOR SA ONLY 330 MG/7.5 ML UDC GT SCH (08:13)
[2021-06-22] MEDS: DOCUSATE SODIUM LIQ 100 MG/10 ML UDC GT SCH ×2 (08:13→17:26)
[2021-06-22] MEDS: SITAGLIPTIN PHOSPHATE 50 MG TABLET GT SCH (08:14)
[2021-06-22] MEDS: LEVETIRACETAM SOL (5 ML) 100 MG/ML UDC GT SCH ×2 (08:14→21:45)
[2021-06-22] MEDS: ASCORBIC ACID 500 MG TABLET GT SCH (08:14)
[2021-06-22] MEDS: LISINOPRIL (5MG) 5 MG TABLET GT SCH (08:14)
[2021-06-22] MEDS: MULTIVIT W/MINERALS 1 TAB TABLET GT SCH (08:14)
[2021-06-22] MEDS: ACIDOPHILUS/BULGARICUS 1 EACH TAB.CHEW GT SCH ×2 (08:14→17:26)
[2021-06-22] MEDS: ZINC SULFATE 220 MG CAPSULE GT SCH (08:14)
[2021-06-22] MEDS: VITAMINS A AND D 56.7 GM TUBE TP SCH ×4 (08:14→21:45)
--- NOTE | 2021-06-22 08:49 | NUR ---
Seen and examined by Dr. Capone, no new order given. Continue IV Vancomycin for bloodstream infection and Merrem for E.Coli in the urine. no adverse reaction from antibiotic.
[2021-06-22 11:28] VITALS: BP 132/65
[2021-06-22] MEDS: INSULIN ASPART/LISPRO 100 UNIT/ML CARTRIDGE SQ PRN ×3 (12:19→23:28)
[2021-06-22] MEDS: VANCOMYCIN 1.25 GM in IV D5W 250 ML IV SCH (17:25)
[2021-06-22 20:22] VITALS: BP 126/61
[2021-06-22] MEDS: POLYETHYLENE GLYCOL 3350 17 GM POWD.PACK GT SCH (21:45)
[2021-06-22] MEDS: ATORVASTATIN 10 MG TABLET GT SCH (21:45)
[2021-06-22] MEDS: ENOXAPARIN SODIUM 40 MG/0.4 ML DISP.SYRIN SQ SCH (21:46)
[2021-06-22] MEDS: INSULIN GLARGINE,BASAGLAR 100 UNIT/ML INSULN.PEN SQ SCH (21:46)
[2021-06-23] MEDS: GLUCERNA 1.2 1,000 ML BOTTLE GT PRN (00:36)
[2021-06-23] MEDS: ALBUTEROL FS 2.5 MG/0.5 ML VIAL.NEB NEB SCH ×4 (02:04→20:25)
[2021-06-23] MEDS: IPRATROPIUM NEB FS 0.5 MG/2.5 ML AMPUL.NEB NEB SCH ×4 (02:04→20:25)
[2021-06-23] MEDS: MEROPENEM 1 G in IV NS 0.9% 100 ML IV SCH ×3 (05:00→20:47)
[2021-06-23] MEDS: POLYVINYL ALCOHOL 15 ML BOTTLE EACHEYE SCH ×4 (06:20→23:31)
[2021-06-23] MEDS: INSULIN ASPART/LISPRO 100 UNIT/ML CARTRIDGE SQ PRN ×3 (06:20→23:31)
[2021-06-23] MEDS: BLOOD SUGAR DIAGNOSTIC 1 EACH STRIP IN SCH ×4 (06:20→23:31)
[2021-06-23] MEDS: OMEPRAZOLE 20 MG CAPSULE.DR GT SCH (06:20)
[2021-06-23 07:48] VITALS: BP 138/74
[2021-06-23] MEDS: HYDROGEN PEROXIDE 480 ML BOTTLE TP SCH ×2 (09:09→20:26)
[2021-06-23] MEDS: DILTIAZEM HCL 30 MG TABLET GT SCH ×2 (09:16→21:00)
[2021-06-23] MEDS: LEVETIRACETAM SOL (5 ML) 100 MG/ML UDC GT SCH ×2 (09:16→21:58)
[2021-06-23] MEDS: SITAGLIPTIN PHOSPHATE 50 MG TABLET GT SCH (09:16)
[2021-06-23] MEDS: FERROUS SULFATE - FOR SA ONLY 330 MG/7.5 ML UDC GT SCH (09:16)
[2021-06-23] MEDS: ACIDOPHILUS/BULGARICUS 1 EACH TAB.CHEW GT SCH ×2 (09:16→17:10)
[2021-06-23] MEDS: DOCUSATE SODIUM LIQ 100 MG/10 ML UDC GT SCH ×2 (09:16→17:10)
[2021-06-23] MEDS: ASCORBIC ACID 500 MG TABLET GT SCH (09:17)
[2021-06-23] MEDS: VITAMINS A AND D 56.7 GM TUBE TP SCH ×4 (09:17→21:58)
[2021-06-23] MEDS: MULTIVIT W/MINERALS 1 TAB TABLET GT SCH (09:17)
[2021-06-23] MEDS: LISINOPRIL (5MG) 5 MG TABLET GT SCH (09:17)
[2021-06-23] MEDS: ZINC SULFATE 220 MG CAPSULE GT SCH (09:17)
--- NOTE | 2021-06-23 14:22 | NUR ---
Monthly progress notes.Resident is non verbal unable to make her needs know.Open eyes but does not track.She received daily visits for sensory stimulation,music, Tv, music, hand massage, reality orientation and audio tapes. These activities will be provided as needed.
[2021-06-23] MEDS: VANCOMYCIN 1.25 GM in IV D5W 250 ML IV SCH (15:10)
[2021-06-23 20:10] VITALS: BP 99/51
[2021-06-23] MEDS: POLYETHYLENE GLYCOL 3350 17 GM POWD.PACK GT SCH (21:58)
[2021-06-23] MEDS: INSULIN GLARGINE,BASAGLAR 100 UNIT/ML INSULN.PEN SQ SCH (21:58)
[2021-06-23] MEDS: ATORVASTATIN 10 MG TABLET GT SCH (21:58)
[2021-06-23] MEDS: ENOXAPARIN SODIUM 40 MG/0.4 ML DISP.SYRIN SQ SCH (21:59)
[2021-06-24 00:39] VITALS: BP 105/58
[2021-06-24] MEDS: ALBUTEROL FS 2.5 MG/0.5 ML VIAL.NEB NEB SCH ×4 (01:56→19:30)
[2021-06-24] MEDS: IPRATROPIUM NEB FS 0.5 MG/2.5 ML AMPUL.NEB NEB SCH ×4 (01:56→19:30)
[2021-06-24] MEDS: MEROPENEM 1 G in IV NS 0.9% 100 ML IV SCH (05:34)
[2021-06-24] MEDS: OMEPRAZOLE 20 MG CAPSULE.DR GT SCH (06:00)
[2021-06-24] MEDS: POLYVINYL ALCOHOL 15 ML BOTTLE EACHEYE SCH ×3 (06:00→17:13)
[2021-06-24] MEDS: INSULIN ASPART/LISPRO 100 UNIT/ML CARTRIDGE SQ PRN ×3 (06:00→17:15)
[2021-06-24] MEDS: BLOOD SUGAR DIAGNOSTIC 1 EACH STRIP IN SCH ×3 (06:00→17:13)
[2021-06-24] MEDS: GLUCERNA 1.2 1,000 ML BOTTLE GT PRN (06:01)
[2021-06-24 07:31] VITALS: BP 119/73
[2021-06-24] MEDS: HYDROGEN PEROXIDE 480 ML BOTTLE TP SCH ×2 (08:40→20:42)
[2021-06-24] MEDS: FERROUS SULFATE - FOR SA ONLY 330 MG/7.5 ML UDC GT SCH (09:22)
[2021-06-24] MEDS: DILTIAZEM HCL 30 MG TABLET GT SCH ×2 (09:22→21:00)
[2021-06-24] MEDS: SITAGLIPTIN PHOSPHATE 50 MG TABLET GT SCH (09:22)
[2021-06-24] MEDS: LEVETIRACETAM SOL (5 ML) 100 MG/ML UDC GT SCH ×2 (09:22→21:08)
[2021-06-24] MEDS: DOCUSATE SODIUM LIQ 100 MG/10 ML UDC GT SCH ×2 (09:22→17:13)
[2021-06-24] MEDS: ACIDOPHILUS/BULGARICUS 1 EACH TAB.CHEW GT SCH ×2 (09:23→17:13)
[2021-06-24] MEDS: LISINOPRIL (5MG) 5 MG TABLET GT SCH (09:23)
[2021-06-24] MEDS: ASCORBIC ACID 500 MG TABLET GT SCH (09:23)
[2021-06-24] MEDS: MULTIVIT W/MINERALS 1 TAB TABLET GT SCH (09:23)
[2021-06-24] MEDS: ZINC SULFATE 220 MG CAPSULE GT SCH (09:23)
[2021-06-24] MEDS: VITAMINS A AND D 56.7 GM TUBE TP SCH ×4 (09:56→21:08)
[2021-06-24 12:26] VITALS: BP 118/66
[2021-06-24 15:07] LABS: CREATININE 0.8 mg/dL (0.6-1.3)
--- NOTE | 2021-06-24 15:45 | NUR ---
Vancomycin trough 21 relayed to [facility] IV pharmacist Nani. She said to hold 3pm Vancomycin dose. She will call later to give new dosing for Vancomycin.
--- NOTE | 2021-06-24 17:18 | NUR ---
Received order to give Vancomycin 750 mg IV tomorrow at 0900.
[2021-06-24 19:46] VITALS: BP 107/50
[2021-06-24] MEDS: POLYETHYLENE GLYCOL 3350 17 GM POWD.PACK GT SCH (21:08)
[2021-06-24] MEDS: ATORVASTATIN 10 MG TABLET GT SCH (21:08)
[2021-06-24] MEDS: INSULIN GLARGINE,BASAGLAR 100 UNIT/ML INSULN.PEN SQ SCH (21:15)
[2021-06-24] MEDS: ENOXAPARIN SODIUM 40 MG/0.4 ML DISP.SYRIN SQ SCH (21:15)
[2021-06-25 00:39] VITALS: BP 114/76
[2021-06-25] MEDS: BLOOD SUGAR DIAGNOSTIC 1 EACH STRIP IN SCH ×5 (00:49→23:40)
[2021-06-25] MEDS: POLYVINYL ALCOHOL 15 ML BOTTLE EACHEYE SCH ×5 (00:49→23:40)
[2021-06-25] MEDS: INSULIN ASPART/LISPRO 100 UNIT/ML CARTRIDGE SQ PRN ×5 (00:50→23:41)
[2021-06-25] MEDS: IPRATROPIUM NEB FS 0.5 MG/2.5 ML AMPUL.NEB NEB SCH ×4 (01:46→19:30)
[2021-06-25] MEDS: ALBUTEROL FS 2.5 MG/0.5 ML VIAL.NEB NEB SCH ×4 (01:46→19:30)
[2021-06-25] MEDS: OMEPRAZOLE 20 MG CAPSULE.DR GT SCH (05:44)
[2021-06-25] MEDS: GLUCERNA 1.2 1,000 ML BOTTLE GT PRN (05:49)
[2021-06-25 07:27] VITALS: BP 140/78
[2021-06-25] MEDS: HYDROGEN PEROXIDE 480 ML BOTTLE TP SCH ×2 (08:48→21:13)
[2021-06-25] MEDS ORDERED: VANCOMYCIN HCL 0.75 GM in IV D5W 250 ML IV ONE (09:00)
[2021-06-25] MEDS: FERROUS SULFATE - FOR SA ONLY 330 MG/7.5 ML UDC GT SCH (09:09)
[2021-06-25] MEDS: DILTIAZEM HCL 30 MG TABLET GT SCH ×2 (09:09→21:00)
[2021-06-25] MEDS: SITAGLIPTIN PHOSPHATE 50 MG TABLET GT SCH (09:09)
[2021-06-25] MEDS: DOCUSATE SODIUM LIQ 100 MG/10 ML UDC GT SCH ×2 (09:09→17:03)
[2021-06-25] MEDS: LEVETIRACETAM SOL (5 ML) 100 MG/ML UDC GT SCH ×2 (09:10→21:22)
[2021-06-25] MEDS: LISINOPRIL (5MG) 5 MG TABLET GT SCH (09:10)
[2021-06-25] MEDS: ACIDOPHILUS/BULGARICUS 1 EACH TAB.CHEW GT SCH ×2 (09:10→17:03)
[2021-06-25] MEDS: ASCORBIC ACID 500 MG TABLET GT SCH (09:10)
[2021-06-25] MEDS: VITAMINS A AND D 56.7 GM TUBE TP SCH ×4 (09:10→21:22)
[2021-06-25] MEDS: ZINC SULFATE 220 MG CAPSULE GT SCH (09:10)
[2021-06-25] MEDS: MULTIVIT W/MINERALS 1 TAB TABLET GT SCH (09:10)
[2021-06-25 12:11] VITALS: BP 135/79
--- NOTE | 2021-06-25 15:22 | NUR ---
Latest Visitation Guidelines & Facility Update: ORACIO informed pt.'s responsible libertarian, Kelly via email that, "ORACIO Facility Update: No [facility] employee tested positive for COVID-19 this week. Residents and staff will continue receiving routine testing. We will continue to implement [facility] infection control protocols and continue screening employees before every shift. [facility] continues to follow infection control protocols and screen our residents and staff daily for symptoms". ORACIO also informed family that the visitation guidelines have not changed at this time.
[2021-06-25 20:25] VITALS: BP 102/85
[2021-06-25] MEDS: POLYETHYLENE GLYCOL 3350 17 GM POWD.PACK GT SCH (21:22)
[2021-06-25] MEDS: ATORVASTATIN 10 MG TABLET GT SCH (21:22)
[2021-06-25] MEDS: INSULIN GLARGINE,BASAGLAR 100 UNIT/ML INSULN.PEN SQ SCH (21:23)
[2021-06-25] MEDS: ENOXAPARIN SODIUM 40 MG/0.4 ML DISP.SYRIN SQ SCH (21:23)
[2021-06-26] MEDS: IPRATROPIUM NEB FS 0.5 MG/2.5 ML AMPUL.NEB NEB SCH ×4 (02:39→19:57)
[2021-06-26] MEDS: ALBUTEROL FS 2.5 MG/0.5 ML VIAL.NEB NEB SCH ×4 (02:39→19:57)
[2021-06-26] MEDS: INSULIN ASPART/LISPRO 100 UNIT/ML CARTRIDGE SQ PRN ×4 (05:31→23:45)
[2021-06-26] MEDS: OMEPRAZOLE 20 MG CAPSULE.DR GT SCH (05:31)
[2021-06-26] MEDS: BLOOD SUGAR DIAGNOSTIC 1 EACH STRIP IN SCH ×4 (05:31→23:45)
[2021-06-26] MEDS: POLYVINYL ALCOHOL 15 ML BOTTLE EACHEYE SCH ×4 (05:31→23:45)
[2021-06-26] MEDS: GLUCERNA 1.2 1,000 ML BOTTLE GT PRN (05:32)
[2021-06-26 07:17] VITALS: BP 108/71
[2021-06-26] MEDS: LISINOPRIL (5MG) 5 MG TABLET GT SCH (09:04)
[2021-06-26] MEDS: DILTIAZEM HCL 30 MG TABLET GT SCH ×2 (09:04→21:00)
[2021-06-26] MEDS: MULTIVIT W/MINERALS 1 TAB TABLET GT SCH (09:04)
[2021-06-26] MEDS: ASCORBIC ACID 500 MG TABLET GT SCH (09:04)
[2021-06-26] MEDS: DOCUSATE SODIUM LIQ 100 MG/10 ML UDC GT SCH ×2 (09:04→16:12)
[2021-06-26] MEDS: LEVETIRACETAM SOL (5 ML) 100 MG/ML UDC GT SCH ×2 (09:04→21:35)
[2021-06-26] MEDS: FERROUS SULFATE - FOR SA ONLY 330 MG/7.5 ML UDC GT SCH (09:04)
[2021-06-26] MEDS: ACIDOPHILUS/BULGARICUS 1 EACH TAB.CHEW GT SCH ×2 (09:04→16:12)
[2021-06-26] MEDS: SITAGLIPTIN PHOSPHATE 50 MG TABLET GT SCH (09:04)
[2021-06-26] MEDS: ZINC SULFATE 220 MG CAPSULE GT SCH (09:05)
[2021-06-26] MEDS: VITAMINS A AND D 56.7 GM TUBE TP SCH ×4 (09:05→21:36)
[2021-06-26] MEDS: HYDROGEN PEROXIDE 480 ML BOTTLE TP SCH ×2 (09:10→19:57)
[2021-06-26 14:24] VITALS: BP 128/57
[2021-06-26 20:03] VITALS: BP 100/50
[2021-06-26] MEDS: POLYETHYLENE GLYCOL 3350 17 GM POWD.PACK GT SCH (21:36)
[2021-06-26] MEDS: INSULIN GLARGINE,BASAGLAR 100 UNIT/ML INSULN.PEN SQ SCH (21:36)
[2021-06-26] MEDS: ATORVASTATIN 10 MG TABLET GT SCH (21:36)
[2021-06-26] MEDS: ENOXAPARIN SODIUM 40 MG/0.4 ML DISP.SYRIN SQ SCH (21:37)
[2021-06-26 23:27] VITALS: BP 117/61
[2021-06-27] MEDS: ALBUTEROL FS 2.5 MG/0.5 ML VIAL.NEB NEB SCH ×4 (00:42→20:19)
[2021-06-27] MEDS: IPRATROPIUM NEB FS 0.5 MG/2.5 ML AMPUL.NEB NEB SCH ×4 (00:42→20:19)
[2021-06-27] MEDS: GLUCERNA 1.2 1,000 ML BOTTLE GT PRN (05:44)
[2021-06-27] MEDS: POLYVINYL ALCOHOL 15 ML BOTTLE EACHEYE SCH ×4 (05:44→23:39)
[2021-06-27] MEDS: OMEPRAZOLE 20 MG CAPSULE.DR GT SCH (05:44)
[2021-06-27] MEDS: BLOOD SUGAR DIAGNOSTIC 1 EACH STRIP IN SCH ×4 (05:44→23:39)
[2021-06-27] MEDS: INSULIN ASPART/LISPRO 100 UNIT/ML CARTRIDGE SQ PRN ×2 (05:44→23:39)
--- NOTE | 2021-06-27 06:29 | NUR ---
PATIENT RECEIVED ON 28% AEROSOL T-TUBE, TOLERATING WITH NO DISTRESS/SOB NOTED. SUCTIONED WITH LAVAGE FOR MINIMAL, THIN, WHITE SECRETIONS. GIVEN IN-LINE TREATMENTS WITH NO ADVERSE REACTIONS. AMBU BAG AT BEDSIDE. TRACH CARE DONE. Addendum: 06/27/21 at 0630 by KAISER LAW RT Amended: Links added.
[2021-06-27 07:19] VITALS: BP 134/79
[2021-06-27] MEDS: ACIDOPHILUS/BULGARICUS 1 EACH TAB.CHEW GT SCH ×2 (09:00→17:53)
[2021-06-27] MEDS: DILTIAZEM HCL 30 MG TABLET GT SCH ×2 (09:00→21:00)
[2021-06-27] MEDS: DOCUSATE SODIUM LIQ 100 MG/10 ML UDC GT SCH ×2 (09:00→17:53)
[2021-06-27] MEDS: MULTIVIT W/MINERALS 1 TAB TABLET GT SCH (09:00)
[2021-06-27] MEDS: FERROUS SULFATE - FOR SA ONLY 330 MG/7.5 ML UDC GT SCH (09:00)
[2021-06-27] MEDS: ASCORBIC ACID 500 MG TABLET GT SCH (09:00)
[2021-06-27] MEDS: LEVETIRACETAM SOL (5 ML) 100 MG/ML UDC GT SCH ×2 (09:00→21:19)
[2021-06-27] MEDS: LISINOPRIL (5MG) 5 MG TABLET GT SCH (09:00)
[2021-06-27] MEDS: HYDROGEN PEROXIDE 480 ML BOTTLE TP SCH ×2 (09:00→20:19)
[2021-06-27] MEDS: VITAMINS A AND D 56.7 GM TUBE TP SCH ×4 (09:00→21:20)
[2021-06-27] MEDS: SITAGLIPTIN PHOSPHATE 50 MG TABLET GT SCH (09:00)
[2021-06-27] MEDS: ZINC SULFATE 220 MG CAPSULE GT SCH (09:00)
[2021-06-27 12:45] VITALS: BP 138/81
[2021-06-27 20:24] VITALS: BP 101/56
[2021-06-27] MEDS: ATORVASTATIN 10 MG TABLET GT SCH (21:20)
[2021-06-27] MEDS: POLYETHYLENE GLYCOL 3350 17 GM POWD.PACK GT SCH (21:21)
[2021-06-27] MEDS: ENOXAPARIN SODIUM 40 MG/0.4 ML DISP.SYRIN SQ SCH (21:23)
[2021-06-27] MEDS: INSULIN GLARGINE,BASAGLAR 100 UNIT/ML INSULN.PEN SQ SCH (21:46)
[2021-06-27 23:39] VITALS: BP 125/75
[2021-06-28] MEDS: ALBUTEROL FS 2.5 MG/0.5 ML VIAL.NEB NEB SCH ×4 (02:25→20:14)
[2021-06-28] MEDS: IPRATROPIUM NEB FS 0.5 MG/2.5 ML AMPUL.NEB NEB SCH ×4 (02:25→20:14)
[2021-06-28] MEDS: BLOOD SUGAR DIAGNOSTIC 1 EACH STRIP IN SCH ×3 (05:39→17:58)
[2021-06-28] MEDS: POLYVINYL ALCOHOL 15 ML BOTTLE EACHEYE SCH ×3 (05:39→17:16)
[2021-06-28] MEDS: INSULIN ASPART/LISPRO 100 UNIT/ML CARTRIDGE SQ PRN ×3 (05:39→17:59)
[2021-06-28] MEDS: OMEPRAZOLE 20 MG CAPSULE.DR GT SCH (05:39)
[2021-06-28 07:42] VITALS: BP 136/78
[2021-06-28] MEDS: DILTIAZEM HCL 30 MG TABLET GT SCH ×2 (09:09→21:00)
[2021-06-28] MEDS: FERROUS SULFATE - FOR SA ONLY 330 MG/7.5 ML UDC GT SCH (09:09)
[2021-06-28] MEDS: LEVETIRACETAM SOL (5 ML) 100 MG/ML UDC GT SCH ×2 (09:09→21:19)
[2021-06-28] MEDS: SITAGLIPTIN PHOSPHATE 50 MG TABLET GT SCH (09:09)
[2021-06-28] MEDS: ACIDOPHILUS/BULGARICUS 1 EACH TAB.CHEW GT SCH ×2 (09:09→17:16)
[2021-06-28] MEDS: DOCUSATE SODIUM LIQ 100 MG/10 ML UDC GT SCH ×2 (09:09→17:16)
[2021-06-28] MEDS: MULTIVIT W/MINERALS 1 TAB TABLET GT SCH (09:10)
[2021-06-28] MEDS: LISINOPRIL (5MG) 5 MG TABLET GT SCH (09:10)
[2021-06-28] MEDS: ASCORBIC ACID 500 MG TABLET GT SCH (09:10)
[2021-06-28] MEDS: VITAMINS A AND D 56.7 GM TUBE TP SCH ×4 (09:10→21:20)
[2021-06-28] MEDS: ZINC SULFATE 220 MG CAPSULE GT SCH (09:10)
[2021-06-28] MEDS: HYDROGEN PEROXIDE 480 ML BOTTLE TP SCH ×2 (09:57→20:14)
--- NOTE | 2021-06-28 10:12 | NUR ---
Called lab to follow up blood culture result. Lab said they will finalize the result. Preliminary result showed no growth in 24 hours.
[2021-06-28] MEDS: GLUCERNA 1.2 1,000 ML BOTTLE GT PRN (12:43)
[2021-06-28 13:31] VITALS: BP 131/72
--- NOTE | 2021-06-28 18:40 | NUR ---
Seen by EDUCATIONAL SPEECH LANGUAGE CLINICIAN Kennedi Bender. Notified her of pt's blood sugar levels. She ordered to decrease Basaglar Kwikpen insulin from 35 to 33 units SC q HS. Notified Kelly.
[2021-06-28 20:26] VITALS: BP 111/59
[2021-06-28] MEDS: ATORVASTATIN 10 MG TABLET GT SCH (21:20)
[2021-06-28] MEDS: POLYETHYLENE GLYCOL 3350 17 GM POWD.PACK GT SCH (21:20)
[2021-06-28] MEDS: INSULIN GLARGINE,BASAGLAR 100 UNIT/ML INSULN.PEN SQ SCH (21:21)
[2021-06-28] MEDS: ENOXAPARIN SODIUM 40 MG/0.4 ML DISP.SYRIN SQ SCH (21:23)
--- NOTE | 2021-06-28 21:30 | NUR ---
RN NOTES Noted midline dressing coming off and midline pulled out slightly. Received order to D/C midline, D/C flush midline with 10ml NS, D/c change dressing q7 days or prn soiling.
[2021-06-29 01:15] VITALS: BP 114/61
[2021-06-29] MEDS: INSULIN ASPART/LISPRO 100 UNIT/ML CARTRIDGE SQ PRN ×2 (01:30→06:09)
[2021-06-29] MEDS: ALBUTEROL FS 2.5 MG/0.5 ML VIAL.NEB NEB SCH ×4 (01:56→19:44)
[2021-06-29] MEDS: IPRATROPIUM NEB FS 0.5 MG/2.5 ML AMPUL.NEB NEB SCH ×4 (01:56→19:44)
[2021-06-29] MEDS: BLOOD SUGAR DIAGNOSTIC 1 EACH STRIP IN SCH ×4 (06:09→17:43)
[2021-06-29] MEDS: POLYVINYL ALCOHOL 15 ML BOTTLE EACHEYE SCH ×4 (06:09→17:43)
[2021-06-29] MEDS: OMEPRAZOLE 20 MG CAPSULE.DR GT SCH (06:09)
[2021-06-29 07:13] VITALS: BP 116/68
[2021-06-29] MEDS: HYDROGEN PEROXIDE 480 ML BOTTLE TP SCH ×2 (08:33→19:44)
[2021-06-29] MEDS: DILTIAZEM HCL 30 MG TABLET GT SCH ×2 (09:49→21:13)
[2021-06-29] MEDS: MULTIVIT W/MINERALS 1 TAB TABLET GT SCH (09:53)
[2021-06-29] MEDS: SITAGLIPTIN PHOSPHATE 50 MG TABLET GT SCH (09:53)
[2021-06-29] MEDS: ASCORBIC ACID 500 MG TABLET GT SCH (09:53)
[2021-06-29] MEDS: DOCUSATE SODIUM LIQ 100 MG/10 ML UDC GT SCH ×2 (09:53→16:31)
[2021-06-29] MEDS: ZINC SULFATE 220 MG CAPSULE GT SCH (09:53)
[2021-06-29] MEDS: LISINOPRIL (5MG) 5 MG TABLET GT SCH (09:53)
[2021-06-29] MEDS: VITAMINS A AND D 56.7 GM TUBE TP SCH ×4 (09:53→21:15)
[2021-06-29] MEDS: LEVETIRACETAM SOL (5 ML) 100 MG/ML UDC GT SCH ×2 (09:53→21:15)
[2021-06-29] MEDS: FERROUS SULFATE - FOR SA ONLY 330 MG/7.5 ML UDC GT SCH (09:53)
[2021-06-29] MEDS: ACIDOPHILUS/BULGARICUS 1 EACH TAB.CHEW GT SCH ×2 (09:53→16:31)
[2021-06-29 12:32] VITALS: BP 109/66
[2021-06-29] MEDS: GLUCERNA 1.2 1,000 ML BOTTLE GT PRN (16:31)
[2021-06-29 19:20] VITALS: BP 149/71
[2021-06-29] MEDS: POLYETHYLENE GLYCOL 3350 17 GM POWD.PACK GT SCH (21:15)
[2021-06-29] MEDS: ATORVASTATIN 10 MG TABLET GT SCH (21:15)
[2021-06-29] MEDS: INSULIN GLARGINE,BASAGLAR 100 UNIT/ML INSULN.PEN SQ SCH (21:17)
[2021-06-29] MEDS: ENOXAPARIN SODIUM 40 MG/0.4 ML DISP.SYRIN SQ SCH (21:18)
[2021-06-30] MEDS: POLYVINYL ALCOHOL 15 ML BOTTLE EACHEYE SCH ×4 (00:56→17:47)
[2021-06-30] MEDS: INSULIN ASPART/LISPRO 100 UNIT/ML CARTRIDGE SQ PRN ×2 (00:56→06:29)
[2021-06-30] MEDS: BLOOD SUGAR DIAGNOSTIC 1 EACH STRIP IN SCH ×4 (00:56→17:47)
[2021-06-30] MEDS: ALBUTEROL FS 2.5 MG/0.5 ML VIAL.NEB NEB SCH ×4 (01:48→20:09)
[2021-06-30] MEDS: IPRATROPIUM NEB FS 0.5 MG/2.5 ML AMPUL.NEB NEB SCH ×4 (01:48→20:09)
[2021-06-30] MEDS: OMEPRAZOLE 20 MG CAPSULE.DR GT SCH (06:28)
[2021-06-30 08:04] VITALS: BP 113/75
[2021-06-30] MEDS: ZINC SULFATE 220 MG CAPSULE GT SCH (09:00)
[2021-06-30] MEDS: LEVETIRACETAM SOL (5 ML) 100 MG/ML UDC GT SCH ×2 (09:00→21:16)
[2021-06-30] MEDS: LISINOPRIL (5MG) 5 MG TABLET GT SCH (09:00)
[2021-06-30] MEDS: FERROUS SULFATE - FOR SA ONLY 330 MG/7.5 ML UDC GT SCH (09:00)
[2021-06-30] MEDS: ASCORBIC ACID 500 MG TABLET GT SCH (09:00)
[2021-06-30] MEDS: SITAGLIPTIN PHOSPHATE 50 MG TABLET GT SCH (09:00)
[2021-06-30] MEDS: ACIDOPHILUS/BULGARICUS 1 EACH TAB.CHEW GT SCH ×2 (09:00→16:22)
[2021-06-30] MEDS: MULTIVIT W/MINERALS 1 TAB TABLET GT SCH (09:00)
[2021-06-30] MEDS: DOCUSATE SODIUM LIQ 100 MG/10 ML UDC GT SCH ×2 (09:00→16:22)
[2021-06-30] MEDS: VITAMINS A AND D 56.7 GM TUBE TP SCH ×4 (09:00→21:16)
[2021-06-30] MEDS: DILTIAZEM HCL 30 MG TABLET GT SCH ×2 (09:00→21:00)
[2021-06-30] MEDS: HYDROGEN PEROXIDE 480 ML BOTTLE TP SCH ×2 (09:58→20:09)
[2021-06-30 13:38] VITALS: BP 136/69
--- NOTE | 2021-06-30 14:30 | NUR ---
Patient's blood sugar has been below 100, asked Dr. Pineda to review current DM regimen. MD ordered to decrease Basaglar to 30 units SQ Q HS. Order carried out. Left a message to patient's daughter Kelly regarding new order.
[2021-06-30] MEDS: GLUCERNA 1.2 1,000 ML BOTTLE GT PRN (19:30)
[2021-06-30 19:31] VITALS: BP 107/61
[2021-06-30] MEDS: ATORVASTATIN 10 MG TABLET GT SCH (21:20)
[2021-06-30] MEDS: POLYETHYLENE GLYCOL 3350 17 GM POWD.PACK GT SCH (21:20)
[2021-06-30] MEDS: INSULIN GLARGINE,BASAGLAR 100 UNIT/ML INSULN.PEN SQ SCH (22:01)
[2021-06-30] MEDS: ENOXAPARIN SODIUM 40 MG/0.4 ML DISP.SYRIN SQ SCH (22:03)
[2021-07-01] MEDS: POLYVINYL ALCOHOL 15 ML BOTTLE EACHEYE SCH ×4 (00:10→17:56)
[2021-07-01] MEDS: BLOOD SUGAR DIAGNOSTIC 1 EACH STRIP IN SCH ×4 (00:10→17:56)
[2021-07-01] MEDS: INSULIN ASPART/LISPRO 100 UNIT/ML CARTRIDGE SQ PRN ×4 (00:10→17:57)
[2021-07-01 00:28] VITALS: BP 135/78
[2021-07-01] MEDS: IPRATROPIUM NEB FS 0.5 MG/2.5 ML AMPUL.NEB NEB SCH ×4 (02:24→19:33)
[2021-07-01] MEDS: ALBUTEROL FS 2.5 MG/0.5 ML VIAL.NEB NEB SCH ×4 (02:24→19:33)
[2021-07-01] MEDS: OMEPRAZOLE 20 MG CAPSULE.DR GT SCH (05:54)
[2021-07-01 07:21] LABS: BASOPHILS # (AUTO) 0.1 K/uL (0.0-0.2); EOSINOPHILS % (AUTO) 6.9 % (0.0-6.0); HEMATOCRIT 37 % (33-45); HEMOGLOBIN 12.2 g/dL (11.5-14.8); LYMPHOCYTES # (AUTO) 2.3 K/uL (0.8-4.8); LYMPHOCYTES % (AUTO) 43.5 % (20.0-44.0); MEAN CORPUSCULAR HGB CONC 33 g/dl (31.0-36.0); MEAN CORPUSCULAR VOLUME 93 fL (82-100); MONOCYTES # (AUTO) 0.5 K/uL (0.1-1.30); MONOCYTES % (AUTO) 8.8 % (2.0-12.0); NEUTROPHILS # (AUTO) 2.1 K/uL (1.8-8.9); NEUTROPHILS % (AUTO) 39.8 % (43.0-81.0); PLATELET COUNT (AUTO) 353 K/uL (150-450); WHITE BLOOD COUNT (AUTO) 5.4 K/uL (4.3-11.0)
[2021-07-01 07:22] LABS: CALCIUM, SERUM 9.2 mg/dL (8.5-10.1); POTASSIUM 4.5 mmol/L (3.5-5.1)
[2021-07-01 07:23] VITALS: BP 109/64
[2021-07-01 07:23] LABS: MAGNESIUM 2.2 mg/dL (1.8-2.4); PHOSPHORUS 3.5 mg/dL (2.5-4.9)
[2021-07-01] MEDS: DILTIAZEM HCL 30 MG TABLET GT SCH ×2 (08:21→21:00)
[2021-07-01] MEDS: ASCORBIC ACID 500 MG TABLET GT SCH (08:22)
[2021-07-01] MEDS: NYSTATIN TOP POWDER 15 GM BOTTLE TP SCH ×2 (08:22→21:17)
[2021-07-01] MEDS: LISINOPRIL (5MG) 5 MG TABLET GT SCH (08:22)
[2021-07-01] MEDS: LEVETIRACETAM SOL (5 ML) 100 MG/ML UDC GT SCH ×2 (08:22→21:17)
[2021-07-01] MEDS: VITAMINS A AND D 56.7 GM TUBE TP SCH ×4 (08:22→21:17)
[2021-07-01] MEDS: FERROUS SULFATE - FOR SA ONLY 330 MG/7.5 ML UDC GT SCH (08:22)
[2021-07-01] MEDS: DOCUSATE SODIUM LIQ 100 MG/10 ML UDC GT SCH ×2 (08:22→16:53)
[2021-07-01] MEDS: MULTIVIT W/MINERALS 1 TAB TABLET GT SCH (08:22)
[2021-07-01] MEDS: SITAGLIPTIN PHOSPHATE 50 MG TABLET GT SCH (08:22)
[2021-07-01] MEDS: ACIDOPHILUS/BULGARICUS 1 EACH TAB.CHEW GT SCH ×2 (08:22→16:53)
[2021-07-01] MEDS: ZINC SULFATE 220 MG CAPSULE GT SCH (08:22)
[2021-07-01] MEDS: HYDROGEN PEROXIDE 480 ML BOTTLE TP SCH ×2 (08:49→21:40)
[2021-07-01 12:26] VITALS: BP 93/57
[2021-07-01] MEDS: GLUCERNA 1.2 1,000 ML BOTTLE GT PRN (18:50)
[2021-07-01 19:35] VITALS: BP 106/61
--- NOTE | 2021-07-01 20:28 | NUR ---
Patient seen by MILLY Bender. No new orders at this time.
[2021-07-01] MEDS: ATORVASTATIN 10 MG TABLET GT SCH (21:17)
[2021-07-01] MEDS: POLYETHYLENE GLYCOL 3350 17 GM POWD.PACK GT SCH (21:17)
[2021-07-01] MEDS: INSULIN GLARGINE,BASAGLAR 100 UNIT/ML INSULN.PEN SQ SCH (21:18)
[2021-07-01] MEDS: ENOXAPARIN SODIUM 40 MG/0.4 ML DISP.SYRIN SQ SCH (21:18)
[2021-07-01 23:44] VITALS: BP 125/74
[2021-07-02] MEDS: BLOOD SUGAR DIAGNOSTIC 1 EACH STRIP IN SCH ×5 (00:37→23:54)
[2021-07-02] MEDS: POLYVINYL ALCOHOL 15 ML BOTTLE EACHEYE SCH ×5 (00:37→23:54)
[2021-07-02] MEDS: INSULIN ASPART/LISPRO 100 UNIT/ML CARTRIDGE SQ PRN ×5 (00:38→23:55)
[2021-07-02] MEDS: ALBUTEROL FS 2.5 MG/0.5 ML VIAL.NEB NEB SCH ×4 (01:08→19:20)
[2021-07-02] MEDS: IPRATROPIUM NEB FS 0.5 MG/2.5 ML AMPUL.NEB NEB SCH ×4 (01:08→19:20)
[2021-07-02] MEDS: OMEPRAZOLE 20 MG CAPSULE.DR GT SCH (05:27)
[2021-07-02 07:24] VITALS: BP 100/73
[2021-07-02] MEDS: HYDROGEN PEROXIDE 480 ML BOTTLE TP SCH ×2 (08:41→20:05)
[2021-07-02] MEDS: ACIDOPHILUS/BULGARICUS 1 EACH TAB.CHEW GT SCH ×2 (08:47→16:38)
[2021-07-02] MEDS: SITAGLIPTIN PHOSPHATE 50 MG TABLET GT SCH (08:47)
[2021-07-02] MEDS: DOCUSATE SODIUM LIQ 100 MG/10 ML UDC GT SCH ×2 (08:47→16:38)
[2021-07-02] MEDS: ZINC SULFATE 220 MG CAPSULE GT SCH (08:47)
[2021-07-02] MEDS: DILTIAZEM HCL 30 MG TABLET GT SCH ×2 (08:47→21:00)
[2021-07-02] MEDS: LISINOPRIL (5MG) 5 MG TABLET GT SCH (08:47)
[2021-07-02] MEDS: MULTIVIT W/MINERALS 1 TAB TABLET GT SCH (08:47)
[2021-07-02] MEDS: ASCORBIC ACID 500 MG TABLET GT SCH (08:47)
[2021-07-02] MEDS: LEVETIRACETAM SOL (5 ML) 100 MG/ML UDC GT SCH ×2 (08:47→21:32)
[2021-07-02] MEDS: FERROUS SULFATE - FOR SA ONLY 330 MG/7.5 ML UDC GT SCH (08:47)
[2021-07-02] MEDS: NYSTATIN TOP POWDER 15 GM BOTTLE TP SCH ×2 (08:49→21:32)
[2021-07-02] MEDS: VITAMINS A AND D 56.7 GM TUBE TP SCH ×4 (08:49→21:34)
[2021-07-02 12:21] VITALS: BP 112/73
[2021-07-02 19:19] VITALS: BP 109/60
[2021-07-02] MEDS: POLYETHYLENE GLYCOL 3350 17 GM POWD.PACK GT SCH (21:34)
[2021-07-02] MEDS: ATORVASTATIN 10 MG TABLET GT SCH (21:34)
[2021-07-02] MEDS: ENOXAPARIN SODIUM 40 MG/0.4 ML DISP.SYRIN SQ SCH (21:35)
[2021-07-02] MEDS: INSULIN GLARGINE,BASAGLAR 100 UNIT/ML INSULN.PEN SQ SCH (21:35)
[2021-07-02 23:55] VITALS: BP 127/79
[2021-07-03] MEDS: IPRATROPIUM NEB FS 0.5 MG/2.5 ML AMPUL.NEB NEB SCH ×4 (01:11→20:18)
[2021-07-03] MEDS: ALBUTEROL FS 2.5 MG/0.5 ML VIAL.NEB NEB SCH ×4 (01:11→20:19)
[2021-07-03] MEDS: OMEPRAZOLE 20 MG CAPSULE.DR GT SCH (05:26)
[2021-07-03] MEDS: GLUCERNA 1.2 1,000 ML BOTTLE GT PRN (05:26)
[2021-07-03] MEDS: POLYVINYL ALCOHOL 15 ML BOTTLE EACHEYE SCH ×3 (05:26→18:00)
[2021-07-03] MEDS: BLOOD SUGAR DIAGNOSTIC 1 EACH STRIP IN SCH ×3 (05:26→18:00)
[2021-07-03] MEDS: INSULIN ASPART/LISPRO 100 UNIT/ML CARTRIDGE SQ PRN ×3 (05:27→18:01)
[2021-07-03 07:16] VITALS: BP 127/74
[2021-07-03] MEDS: HYDROGEN PEROXIDE 480 ML BOTTLE TP SCH ×2 (08:06→21:49)
[2021-07-03] MEDS: DOCUSATE SODIUM LIQ 100 MG/10 ML UDC GT SCH ×2 (09:13→16:34)
[2021-07-03] MEDS: ACIDOPHILUS/BULGARICUS 1 EACH TAB.CHEW GT SCH ×2 (09:13→16:34)
[2021-07-03] MEDS: LISINOPRIL (5MG) 5 MG TABLET GT SCH (09:13)
[2021-07-03] MEDS: DILTIAZEM HCL 30 MG TABLET GT SCH ×2 (09:13→21:00)
[2021-07-03] MEDS: SITAGLIPTIN PHOSPHATE 50 MG TABLET GT SCH (09:13)
[2021-07-03] MEDS: FERROUS SULFATE - FOR SA ONLY 330 MG/7.5 ML UDC GT SCH (09:13)
[2021-07-03] MEDS: LEVETIRACETAM SOL (5 ML) 100 MG/ML UDC GT SCH ×2 (09:13→21:07)
[2021-07-03] MEDS: VITAMINS A AND D 56.7 GM TUBE TP SCH ×4 (09:14→21:07)
[2021-07-03] MEDS: NYSTATIN TOP POWDER 15 GM BOTTLE TP SCH ×2 (09:14→21:07)
[2021-07-03] MEDS: MULTIVIT W/MINERALS 1 TAB TABLET GT SCH (09:14)
[2021-07-03] MEDS: ASCORBIC ACID 500 MG TABLET GT SCH (09:14)
[2021-07-03] MEDS: ZINC SULFATE 220 MG CAPSULE GT SCH (09:14)
[2021-07-03 12:20] VITALS: BP 122/70
[2021-07-03 20:02] VITALS: BP 102/53
[2021-07-03] MEDS: POLYETHYLENE GLYCOL 3350 17 GM POWD.PACK GT SCH (21:07)
[2021-07-03] MEDS: ATORVASTATIN 10 MG TABLET GT SCH (21:07)
[2021-07-03] MEDS: ENOXAPARIN SODIUM 40 MG/0.4 ML DISP.SYRIN SQ SCH (21:08)
[2021-07-03] MEDS: INSULIN GLARGINE,BASAGLAR 100 UNIT/ML INSULN.PEN SQ SCH (21:54)
[2021-07-04] MEDS: INSULIN ASPART/LISPRO 100 UNIT/ML CARTRIDGE SQ PRN ×2 (00:18→05:54)
[2021-07-04] MEDS: BLOOD SUGAR DIAGNOSTIC 1 EACH STRIP IN SCH ×5 (00:18→23:37)
[2021-07-04] MEDS: POLYVINYL ALCOHOL 15 ML BOTTLE EACHEYE SCH ×5 (00:18→23:37)
[2021-07-04 01:44] VITALS: BP 110/58
[2021-07-04] MEDS: ALBUTEROL FS 2.5 MG/0.5 ML VIAL.NEB NEB SCH ×4 (01:46→20:03)
[2021-07-04] MEDS: IPRATROPIUM NEB FS 0.5 MG/2.5 ML AMPUL.NEB NEB SCH ×4 (01:46→20:03)
[2021-07-04] MEDS: OMEPRAZOLE 20 MG CAPSULE.DR GT SCH (05:53)
[2021-07-04 07:55] VITALS: BP 112/60
[2021-07-04] MEDS: HYDROGEN PEROXIDE 480 ML BOTTLE TP SCH ×2 (09:10→21:07)
[2021-07-04] MEDS: LISINOPRIL (5MG) 5 MG TABLET GT SCH (09:39)
[2021-07-04] MEDS: ACIDOPHILUS/BULGARICUS 1 EACH TAB.CHEW GT SCH ×2 (09:39→17:10)
[2021-07-04] MEDS: ZINC SULFATE 220 MG CAPSULE GT SCH (09:39)
[2021-07-04] MEDS: MULTIVIT W/MINERALS 1 TAB TABLET GT SCH (09:39)
[2021-07-04] MEDS: ASCORBIC ACID 500 MG TABLET GT SCH (09:39)
[2021-07-04] MEDS: SITAGLIPTIN PHOSPHATE 50 MG TABLET GT SCH (09:39)
[2021-07-04] MEDS: DILTIAZEM HCL 30 MG TABLET GT SCH ×2 (09:39→21:00)
[2021-07-04] MEDS: FERROUS SULFATE - FOR SA ONLY 330 MG/7.5 ML UDC GT SCH (09:39)
[2021-07-04] MEDS: LEVETIRACETAM SOL (5 ML) 100 MG/ML UDC GT SCH ×2 (09:39→21:02)
[2021-07-04] MEDS: DOCUSATE SODIUM LIQ 100 MG/10 ML UDC GT SCH ×2 (09:39→17:10)
[2021-07-04] MEDS: NYSTATIN TOP POWDER 15 GM BOTTLE TP SCH ×2 (09:39→21:02)
[2021-07-04] MEDS: VITAMINS A AND D 56.7 GM TUBE TP SCH ×4 (09:40→21:02)
[2021-07-04 12:47] VITALS: BP 110/55
[2021-07-04] MEDS: GLUCERNA 1.2 1,000 ML BOTTLE GT PRN (17:09)
[2021-07-04 19:40] VITALS: BP 109/59
[2021-07-04] MEDS: ATORVASTATIN 10 MG TABLET GT SCH (21:02)
[2021-07-04] MEDS: POLYETHYLENE GLYCOL 3350 17 GM POWD.PACK GT SCH (21:02)
[2021-07-04] MEDS: ENOXAPARIN SODIUM 40 MG/0.4 ML DISP.SYRIN SQ SCH (21:03)
[2021-07-04] MEDS: INSULIN GLARGINE,BASAGLAR 100 UNIT/ML INSULN.PEN SQ SCH (21:03)
[2021-07-05] MEDS: IPRATROPIUM NEB FS 0.5 MG/2.5 ML AMPUL.NEB NEB SCH ×4 (01:52→20:11)
[2021-07-05] MEDS: ALBUTEROL FS 2.5 MG/0.5 ML VIAL.NEB NEB SCH ×4 (01:52→20:11)
[2021-07-05] MEDS: BLOOD SUGAR DIAGNOSTIC 1 EACH STRIP IN SCH ×4 (05:20→23:14)
[2021-07-05] MEDS: POLYVINYL ALCOHOL 15 ML BOTTLE EACHEYE SCH ×4 (05:20→23:14)
[2021-07-05] MEDS: OMEPRAZOLE 20 MG CAPSULE.DR GT SCH (05:20)
[2021-07-05 07:42] VITALS: BP 95/59
[2021-07-05] MEDS: SITAGLIPTIN PHOSPHATE 50 MG TABLET GT SCH (08:41)
[2021-07-05] MEDS: DOCUSATE SODIUM LIQ 100 MG/10 ML UDC GT SCH ×2 (08:41→17:23)
[2021-07-05] MEDS: LEVETIRACETAM SOL (5 ML) 100 MG/ML UDC GT SCH ×2 (08:41→21:35)
[2021-07-05] MEDS: FERROUS SULFATE - FOR SA ONLY 330 MG/7.5 ML UDC GT SCH (08:41)
[2021-07-05] MEDS: ACIDOPHILUS/BULGARICUS 1 EACH TAB.CHEW GT SCH ×2 (08:41→17:23)
[2021-07-05] MEDS: DILTIAZEM HCL 30 MG TABLET GT SCH ×2 (08:42→21:00)
[2021-07-05] MEDS: LISINOPRIL (5MG) 5 MG TABLET GT SCH (08:42)
[2021-07-05] MEDS: ASCORBIC ACID 500 MG TABLET GT SCH (08:43)
[2021-07-05] MEDS: ZINC SULFATE 220 MG CAPSULE GT SCH (08:43)
[2021-07-05] MEDS: VITAMINS A AND D 56.7 GM TUBE TP SCH ×4 (08:43→21:35)
[2021-07-05] MEDS: NYSTATIN TOP POWDER 15 GM BOTTLE TP SCH ×2 (08:43→21:35)
[2021-07-05] MEDS: MULTIVIT W/MINERALS 1 TAB TABLET GT SCH (08:43)
[2021-07-05] MEDS: HYDROGEN PEROXIDE 480 ML BOTTLE TP SCH ×2 (09:02→21:15)
[2021-07-05] MEDS: INSULIN ASPART/LISPRO 100 UNIT/ML CARTRIDGE SQ PRN ×3 (12:20→23:16)
[2021-07-05 13:47] VITALS: BP 123/84
[2021-07-05] MEDS: GLUCERNA 1.2 1,000 ML BOTTLE GT PRN (18:25)
[2021-07-05 20:00] VITALS: BP 103/62
[2021-07-05] MEDS: POLYETHYLENE GLYCOL 3350 17 GM POWD.PACK GT SCH (21:35)
[2021-07-05] MEDS: ATORVASTATIN 10 MG TABLET GT SCH (21:35)
[2021-07-05] MEDS: INSULIN GLARGINE,BASAGLAR 100 UNIT/ML INSULN.PEN SQ SCH (21:36)
[2021-07-05] MEDS: ENOXAPARIN SODIUM 40 MG/0.4 ML DISP.SYRIN SQ SCH (21:37)
[2021-07-06] MEDS: ALBUTEROL FS 2.5 MG/0.5 ML VIAL.NEB NEB SCH ×4 (01:37→20:03)
[2021-07-06] MEDS: IPRATROPIUM NEB FS 0.5 MG/2.5 ML AMPUL.NEB NEB SCH ×4 (01:37→20:03)
[2021-07-06] MEDS: BLOOD SUGAR DIAGNOSTIC 1 EACH STRIP IN SCH ×3 (06:15→17:12)
[2021-07-06] MEDS: POLYVINYL ALCOHOL 15 ML BOTTLE EACHEYE SCH ×3 (06:15→17:12)
[2021-07-06] MEDS: OMEPRAZOLE 20 MG CAPSULE.DR GT SCH (06:15)
[2021-07-06] MEDS: INSULIN ASPART/LISPRO 100 UNIT/ML CARTRIDGE SQ PRN ×3 (06:15→17:13)
[2021-07-06 07:46] VITALS: BP 101/57
[2021-07-06] MEDS: SITAGLIPTIN PHOSPHATE 50 MG TABLET GT SCH (08:19)
[2021-07-06] MEDS: FERROUS SULFATE - FOR SA ONLY 330 MG/7.5 ML UDC GT SCH (08:19)
[2021-07-06] MEDS: DILTIAZEM HCL 30 MG TABLET GT SCH ×2 (08:19→21:17)
[2021-07-06] MEDS: DOCUSATE SODIUM LIQ 100 MG/10 ML UDC GT SCH ×2 (08:19→16:01)
[2021-07-06] MEDS: MULTIVIT W/MINERALS 1 TAB TABLET GT SCH (08:20)
[2021-07-06] MEDS: LISINOPRIL (5MG) 5 MG TABLET GT SCH (08:20)
[2021-07-06] MEDS: LEVETIRACETAM SOL (5 ML) 100 MG/ML UDC GT SCH ×2 (08:20→21:18)
[2021-07-06] MEDS: ACIDOPHILUS/BULGARICUS 1 EACH TAB.CHEW GT SCH ×2 (08:20→16:01)
[2021-07-06] MEDS: ZINC SULFATE 220 MG CAPSULE GT SCH (08:21)
[2021-07-06] MEDS: ASCORBIC ACID 500 MG TABLET GT SCH (08:21)
[2021-07-06] MEDS: VITAMINS A AND D 56.7 GM TUBE TP SCH ×4 (08:22→21:18)
[2021-07-06] MEDS: NYSTATIN TOP POWDER 15 GM BOTTLE TP SCH ×2 (08:22→21:18)
[2021-07-06] MEDS: HYDROGEN PEROXIDE 480 ML BOTTLE TP SCH ×2 (09:21→20:03)
[2021-07-06 12:36] VITALS: BP 102/61
[2021-07-06 20:25] VITALS: BP 110/65
[2021-07-06] MEDS: ATORVASTATIN 10 MG TABLET GT SCH (21:18)
[2021-07-06] MEDS: POLYETHYLENE GLYCOL 3350 17 GM POWD.PACK GT SCH (21:19)
[2021-07-06] MEDS: ENOXAPARIN SODIUM 40 MG/0.4 ML DISP.SYRIN SQ SCH (21:21)
[2021-07-06] MEDS: INSULIN GLARGINE,BASAGLAR 100 UNIT/ML INSULN.PEN SQ SCH (21:21)
[2021-07-06] MEDS: GLUCERNA 1.2 1,000 ML BOTTLE GT PRN (23:18)
[2021-07-07] MEDS: BLOOD SUGAR DIAGNOSTIC 1 EACH STRIP IN SCH ×5 (00:05→23:44)
[2021-07-07] MEDS: POLYVINYL ALCOHOL 15 ML BOTTLE EACHEYE SCH ×5 (00:05→23:44)
[2021-07-07] MEDS: INSULIN ASPART/LISPRO 100 UNIT/ML CARTRIDGE SQ PRN ×3 (00:05→23:44)
[2021-07-07] MEDS: ALBUTEROL FS 2.5 MG/0.5 ML VIAL.NEB NEB SCH ×4 (02:05→19:56)
[2021-07-07] MEDS: IPRATROPIUM NEB FS 0.5 MG/2.5 ML AMPUL.NEB NEB SCH ×4 (02:05→19:56)
[2021-07-07] MEDS: OMEPRAZOLE 20 MG CAPSULE.DR GT SCH (05:46)
[2021-07-07 07:23] VITALS: BP 130/69
[2021-07-07] MEDS: DOCUSATE SODIUM LIQ 100 MG/10 ML UDC GT SCH ×2 (08:58→17:00)
[2021-07-07] MEDS: FERROUS SULFATE - FOR SA ONLY 330 MG/7.5 ML UDC GT SCH (08:58)
[2021-07-07] MEDS: DILTIAZEM HCL 30 MG TABLET GT SCH ×2 (08:58→21:00)
[2021-07-07] MEDS: VITAMINS A AND D 56.7 GM TUBE TP SCH ×4 (08:59→21:10)
[2021-07-07] MEDS: MULTIVIT W/MINERALS 1 TAB TABLET GT SCH (08:59)
[2021-07-07] MEDS: ACIDOPHILUS/BULGARICUS 1 EACH TAB.CHEW GT SCH ×2 (08:59→17:00)
[2021-07-07] MEDS: LEVETIRACETAM SOL (5 ML) 100 MG/ML UDC GT SCH ×2 (08:59→21:10)
[2021-07-07] MEDS: ASCORBIC ACID 500 MG TABLET GT SCH (08:59)
[2021-07-07] MEDS: NYSTATIN TOP POWDER 15 GM BOTTLE TP SCH ×2 (08:59→21:10)
[2021-07-07] MEDS: ZINC SULFATE 220 MG CAPSULE GT SCH (08:59)
[2021-07-07] MEDS: SITAGLIPTIN PHOSPHATE 50 MG TABLET GT SCH (08:59)
[2021-07-07] MEDS: LISINOPRIL (5MG) 5 MG TABLET GT SCH (08:59)
[2021-07-07] MEDS: HYDROGEN PEROXIDE 480 ML BOTTLE TP SCH ×2 (09:17→19:56)
[2021-07-07 12:03] VITALS: BP 132/85
[2021-07-07 19:47] VITALS: BP 99/60
[2021-07-07] MEDS: ATORVASTATIN 10 MG TABLET GT SCH (21:10)
[2021-07-07] MEDS: POLYETHYLENE GLYCOL 3350 17 GM POWD.PACK GT SCH (21:10)
[2021-07-07] MEDS: INSULIN GLARGINE,BASAGLAR 100 UNIT/ML INSULN.PEN SQ SCH (21:11)
[2021-07-07] MEDS: ENOXAPARIN SODIUM 40 MG/0.4 ML DISP.SYRIN SQ SCH (21:12)
[2021-07-08 01:00] VITALS: BP 119/68
[2021-07-08] MEDS: GLUCERNA 1.2 1,000 ML BOTTLE GT PRN (01:00)
[2021-07-08] MEDS: IPRATROPIUM NEB FS 0.5 MG/2.5 ML AMPUL.NEB NEB SCH ×4 (01:59→20:53)
[2021-07-08] MEDS: ALBUTEROL FS 2.5 MG/0.5 ML VIAL.NEB NEB SCH ×4 (01:59→20:53)
[2021-07-08] MEDS: POLYVINYL ALCOHOL 15 ML BOTTLE EACHEYE SCH ×4 (05:27→23:13)
[2021-07-08] MEDS: INSULIN ASPART/LISPRO 100 UNIT/ML CARTRIDGE SQ PRN ×2 (05:27→23:32)
[2021-07-08] MEDS: BLOOD SUGAR DIAGNOSTIC 1 EACH STRIP IN SCH ×4 (05:27→23:32)
[2021-07-08] MEDS: OMEPRAZOLE 20 MG CAPSULE.DR GT SCH (05:27)
[2021-07-08 07:21] VITALS: BP 122/65
[2021-07-08] MEDS: HYDROGEN PEROXIDE 480 ML BOTTLE TP SCH ×2 (08:21→20:53)
[2021-07-08] MEDS: MULTIVIT W/MINERALS 1 TAB TABLET GT SCH (08:57)
[2021-07-08] MEDS: NYSTATIN TOP POWDER 15 GM BOTTLE TP SCH ×2 (08:57→21:15)
[2021-07-08] MEDS: DOCUSATE SODIUM LIQ 100 MG/10 ML UDC GT SCH ×2 (08:57→17:27)
[2021-07-08] MEDS: ACIDOPHILUS/BULGARICUS 1 EACH TAB.CHEW GT SCH ×2 (08:57→17:27)
[2021-07-08] MEDS: SITAGLIPTIN PHOSPHATE 50 MG TABLET GT SCH (08:57)
[2021-07-08] MEDS: ZINC SULFATE 220 MG CAPSULE GT SCH (08:57)
[2021-07-08] MEDS: VITAMINS A AND D 56.7 GM TUBE TP SCH ×4 (08:57→21:15)
[2021-07-08] MEDS: DILTIAZEM HCL 30 MG TABLET GT SCH ×2 (08:57→21:15)
[2021-07-08] MEDS: LEVETIRACETAM SOL (5 ML) 100 MG/ML UDC GT SCH ×2 (08:57→21:15)
[2021-07-08] MEDS: FERROUS SULFATE - FOR SA ONLY 330 MG/7.5 ML UDC GT SCH (08:57)
[2021-07-08] MEDS: ASCORBIC ACID 500 MG TABLET GT SCH (08:57)
[2021-07-08] MEDS: LISINOPRIL (5MG) 5 MG TABLET GT SCH (08:57)
[2021-07-08 12:15] VITALS: BP 127/71
[2021-07-08 19:05] VITALS: BP 111/70
[2021-07-08] MEDS: POLYETHYLENE GLYCOL 3350 17 GM POWD.PACK GT SCH (21:15)
[2021-07-08] MEDS: ATORVASTATIN 10 MG TABLET GT SCH (21:15)
[2021-07-08] MEDS: INSULIN GLARGINE,BASAGLAR 100 UNIT/ML INSULN.PEN SQ SCH (21:15)
[2021-07-08] MEDS: ENOXAPARIN SODIUM 40 MG/0.4 ML DISP.SYRIN SQ SCH (21:16)
[2021-07-08 23:21] VITALS: BP 130/82
[2021-07-09] MEDS: ALBUTEROL FS 2.5 MG/0.5 ML VIAL.NEB NEB SCH ×4 (02:48→20:09)
[2021-07-09] MEDS: IPRATROPIUM NEB FS 0.5 MG/2.5 ML AMPUL.NEB NEB SCH ×4 (02:48→20:09)
[2021-07-09] MEDS: OMEPRAZOLE 20 MG CAPSULE.DR GT SCH (05:04)
[2021-07-09] MEDS: POLYVINYL ALCOHOL 15 ML BOTTLE EACHEYE SCH ×3 (05:04→17:26)
[2021-07-09] MEDS: BLOOD SUGAR DIAGNOSTIC 1 EACH STRIP IN SCH ×3 (05:12→17:26)
[2021-07-09] MEDS: INSULIN ASPART/LISPRO 100 UNIT/ML CARTRIDGE SQ PRN ×3 (05:12→17:26)
[2021-07-09 07:22] VITALS: BP 104/58
[2021-07-09] MEDS: DILTIAZEM HCL 30 MG TABLET GT SCH ×2 (09:00→20:27)
[2021-07-09] MEDS: NYSTATIN TOP POWDER 15 GM BOTTLE TP SCH ×2 (09:00→20:28)
[2021-07-09] MEDS: ACIDOPHILUS/BULGARICUS 1 EACH TAB.CHEW GT SCH ×2 (09:08→17:26)
[2021-07-09] MEDS: DOCUSATE SODIUM LIQ 100 MG/10 ML UDC GT SCH ×2 (09:08→17:26)
[2021-07-09] MEDS: LEVETIRACETAM SOL (5 ML) 100 MG/ML UDC GT SCH ×2 (09:08→20:28)
[2021-07-09] MEDS: SITAGLIPTIN PHOSPHATE 50 MG TABLET GT SCH (09:08)
[2021-07-09] MEDS: FERROUS SULFATE - FOR SA ONLY 330 MG/7.5 ML UDC GT SCH (09:08)
[2021-07-09] MEDS: LISINOPRIL (5MG) 5 MG TABLET GT SCH (09:09)
[2021-07-09] MEDS: MULTIVIT W/MINERALS 1 TAB TABLET GT SCH (09:09)
[2021-07-09] MEDS: VITAMINS A AND D 56.7 GM TUBE TP SCH ×4 (09:09→20:28)
[2021-07-09] MEDS: ZINC SULFATE 220 MG CAPSULE GT SCH (09:09)
[2021-07-09] MEDS: ASCORBIC ACID 500 MG TABLET GT SCH (09:09)
[2021-07-09] MEDS: HYDROGEN PEROXIDE 480 ML BOTTLE TP SCH ×2 (09:18→20:09)
[2021-07-09 12:04] VITALS: BP 116/66
--- NOTE | 2021-07-09 16:59 | NUR ---
Latest Visitation Guidelines & Facility Update: ORACIO informed pt.'s responsible republican, Kelly via email that, "SW Facility Update: No [facility] employee tested positive for COVID-19 this week. Residents and staff will continue receiving routine testing. We will continue to implement [facility] infection control protocols and continue screening employees before every shift. [facility] continues to follow infection control protocols and screen our residents and staff daily for symptoms". ORACIO also informed family that the visitation guidelines have not changed at this time and notified them that per [facility], when transmission rate lowers to moderate, fully vaccinated and boosted visitors will not need to show proof of negative COVID test.
[2021-07-09 19:23] VITALS: BP 106/63
[2021-07-09] MEDS: ATORVASTATIN 10 MG TABLET GT SCH (21:41)
[2021-07-09] MEDS: POLYETHYLENE GLYCOL 3350 17 GM POWD.PACK GT SCH (21:41)
[2021-07-09] MEDS: ENOXAPARIN SODIUM 40 MG/0.4 ML DISP.SYRIN SQ SCH (21:42)
[2021-07-09] MEDS: INSULIN GLARGINE,BASAGLAR 100 UNIT/ML INSULN.PEN SQ SCH (21:42)
[2021-07-10 00:09] VITALS: BP 121/76
[2021-07-10] MEDS: POLYVINYL ALCOHOL 15 ML BOTTLE EACHEYE SCH ×5 (00:14→23:56)
[2021-07-10] MEDS: BLOOD SUGAR DIAGNOSTIC 1 EACH STRIP IN SCH ×5 (00:14→23:56)
[2021-07-10] MEDS: INSULIN ASPART/LISPRO 100 UNIT/ML CARTRIDGE SQ PRN ×5 (00:15→23:56)
[2021-07-10] MEDS: ALBUTEROL FS 2.5 MG/0.5 ML VIAL.NEB NEB SCH ×4 (01:43→19:39)
[2021-07-10] MEDS: IPRATROPIUM NEB FS 0.5 MG/2.5 ML AMPUL.NEB NEB SCH ×4 (01:43→19:39)
[2021-07-10] MEDS: OMEPRAZOLE 20 MG CAPSULE.DR GT SCH (05:50)
[2021-07-10] MEDS: GLUCERNA 1.2 1,000 ML BOTTLE GT PRN (05:51)
[2021-07-10 07:28] VITALS: BP 128/66
[2021-07-10] MEDS: HYDROGEN PEROXIDE 480 ML BOTTLE TP SCH ×2 (08:36→20:32)
[2021-07-10] MEDS: DOCUSATE SODIUM LIQ 100 MG/10 ML UDC GT SCH ×2 (08:53→17:04)
[2021-07-10] MEDS: DILTIAZEM HCL 30 MG TABLET GT SCH ×2 (08:53→21:10)
[2021-07-10] MEDS: FERROUS SULFATE - FOR SA ONLY 330 MG/7.5 ML UDC GT SCH (08:53)
[2021-07-10] MEDS: LISINOPRIL (5MG) 5 MG TABLET GT SCH (08:54)
[2021-07-10] MEDS: MULTIVIT W/MINERALS 1 TAB TABLET GT SCH (08:54)
[2021-07-10] MEDS: SITAGLIPTIN PHOSPHATE 50 MG TABLET GT SCH (08:54)
[2021-07-10] MEDS: ACIDOPHILUS/BULGARICUS 1 EACH TAB.CHEW GT SCH ×2 (08:54→17:04)
[2021-07-10] MEDS: LEVETIRACETAM SOL (5 ML) 100 MG/ML UDC GT SCH ×2 (08:54→21:10)
[2021-07-10] MEDS: ASCORBIC ACID 500 MG TABLET GT SCH (08:55)
[2021-07-10] MEDS: ZINC SULFATE 220 MG CAPSULE GT SCH (08:55)
[2021-07-10] MEDS: VITAMINS A AND D 56.7 GM TUBE TP SCH ×4 (08:55→21:11)
[2021-07-10] MEDS: NYSTATIN TOP POWDER 15 GM BOTTLE TP SCH ×2 (08:55→21:10)
[2021-07-10 12:40] VITALS: BP 129/73
[2021-07-10 19:38] VITALS: BP 103/61
[2021-07-10] MEDS: INSULIN GLARGINE,BASAGLAR 100 UNIT/ML INSULN.PEN SQ SCH (21:11)
[2021-07-10] MEDS: ENOXAPARIN SODIUM 40 MG/0.4 ML DISP.SYRIN SQ SCH (21:11)
[2021-07-10] MEDS: ATORVASTATIN 10 MG TABLET GT SCH (21:11)
[2021-07-10] MEDS: POLYETHYLENE GLYCOL 3350 17 GM POWD.PACK GT SCH (21:11)
[2021-07-10 23:51] VITALS: BP 120/74
[2021-07-11] MEDS: ALBUTEROL FS 2.5 MG/0.5 ML VIAL.NEB NEB SCH ×4 (01:06→19:15)
[2021-07-11] MEDS: IPRATROPIUM NEB FS 0.5 MG/2.5 ML AMPUL.NEB NEB SCH ×4 (01:06→19:15)
[2021-07-11] MEDS: GLUCERNA 1.2 1,000 ML BOTTLE GT PRN (04:56)
[2021-07-11] MEDS: POLYVINYL ALCOHOL 15 ML BOTTLE EACHEYE SCH ×3 (05:07→17:11)
[2021-07-11] MEDS: BLOOD SUGAR DIAGNOSTIC 1 EACH STRIP IN SCH ×3 (05:07→18:19)
[2021-07-11] MEDS: INSULIN ASPART/LISPRO 100 UNIT/ML CARTRIDGE SQ PRN ×3 (05:07→18:19)
[2021-07-11] MEDS: OMEPRAZOLE 20 MG CAPSULE.DR GT SCH (05:07)
[2021-07-11 07:17] VITALS: BP 118/73
[2021-07-11] MEDS: DILTIAZEM HCL 30 MG TABLET GT SCH ×2 (08:59→21:43)
[2021-07-11] MEDS: ACIDOPHILUS/BULGARICUS 1 EACH TAB.CHEW GT SCH ×2 (08:59→17:11)
[2021-07-11] MEDS: DOCUSATE SODIUM LIQ 100 MG/10 ML UDC GT SCH ×2 (08:59→17:11)
[2021-07-11] MEDS: SITAGLIPTIN PHOSPHATE 50 MG TABLET GT SCH (08:59)
[2021-07-11] MEDS: FERROUS SULFATE - FOR SA ONLY 330 MG/7.5 ML UDC GT SCH (08:59)
[2021-07-11] MEDS: LEVETIRACETAM SOL (5 ML) 100 MG/ML UDC GT SCH ×2 (08:59→21:43)
[2021-07-11] MEDS: MULTIVIT W/MINERALS 1 TAB TABLET GT SCH (09:00)
[2021-07-11] MEDS: ZINC SULFATE 220 MG CAPSULE GT SCH (09:00)
[2021-07-11] MEDS: LISINOPRIL (5MG) 5 MG TABLET GT SCH (09:00)
[2021-07-11] MEDS: ASCORBIC ACID 500 MG TABLET GT SCH (09:00)
[2021-07-11] MEDS: NYSTATIN TOP POWDER 15 GM BOTTLE TP SCH ×2 (09:01→21:43)
[2021-07-11] MEDS: VITAMINS A AND D 56.7 GM TUBE TP SCH ×4 (09:01→21:44)
[2021-07-11] MEDS: HYDROGEN PEROXIDE 480 ML BOTTLE TP SCH ×2 (09:54→20:13)
[2021-07-11 12:44] VITALS: BP 108/67
[2021-07-11 20:21] VITALS: BP 120/75
[2021-07-11] MEDS: POLYETHYLENE GLYCOL 3350 17 GM POWD.PACK GT SCH (21:44)
[2021-07-11] MEDS: ATORVASTATIN 10 MG TABLET GT SCH (21:44)
[2021-07-11] MEDS: INSULIN GLARGINE,BASAGLAR 100 UNIT/ML INSULN.PEN SQ SCH (21:46)
[2021-07-11] MEDS: ENOXAPARIN SODIUM 40 MG/0.4 ML DISP.SYRIN SQ SCH (21:46)
[2021-07-12] MEDS: POLYVINYL ALCOHOL 15 ML BOTTLE EACHEYE SCH ×5 (00:08→23:38)
[2021-07-12] MEDS: BLOOD SUGAR DIAGNOSTIC 1 EACH STRIP IN SCH ×5 (00:08→23:38)
[2021-07-12] MEDS: ALBUTEROL FS 2.5 MG/0.5 ML VIAL.NEB NEB SCH ×4 (00:35→20:02)
[2021-07-12] MEDS: IPRATROPIUM NEB FS 0.5 MG/2.5 ML AMPUL.NEB NEB SCH ×4 (00:35→20:02)
[2021-07-12] MEDS: OMEPRAZOLE 20 MG CAPSULE.DR GT SCH (05:37)
[2021-07-12 07:24] VITALS: BP 114/70
[2021-07-12] MEDS: DOCUSATE SODIUM LIQ 100 MG/10 ML UDC GT SCH ×2 (08:33→17:03)
[2021-07-12] MEDS: DILTIAZEM HCL 30 MG TABLET GT SCH ×2 (08:33→21:16)
[2021-07-12] MEDS: FERROUS SULFATE - FOR SA ONLY 330 MG/7.5 ML UDC GT SCH (08:34)
[2021-07-12] MEDS: SITAGLIPTIN PHOSPHATE 50 MG TABLET GT SCH (08:34)
[2021-07-12] MEDS: LEVETIRACETAM SOL (5 ML) 100 MG/ML UDC GT SCH ×2 (08:34→21:16)
[2021-07-12] MEDS: ACIDOPHILUS/BULGARICUS 1 EACH TAB.CHEW GT SCH ×2 (08:35→17:03)
[2021-07-12] MEDS: LISINOPRIL (5MG) 5 MG TABLET GT SCH (08:35)
[2021-07-12] MEDS: MULTIVIT W/MINERALS 1 TAB TABLET GT SCH (08:35)
[2021-07-12] MEDS: ASCORBIC ACID 500 MG TABLET GT SCH (08:35)
[2021-07-12] MEDS: NYSTATIN TOP POWDER 15 GM BOTTLE TP SCH ×2 (08:36→21:16)
[2021-07-12] MEDS: ZINC SULFATE 220 MG CAPSULE GT SCH (08:36)
[2021-07-12] MEDS: VITAMINS A AND D 56.7 GM TUBE TP SCH ×4 (08:36→21:16)
[2021-07-12] MEDS: HYDROGEN PEROXIDE 480 ML BOTTLE TP SCH ×2 (09:53→21:13)
[2021-07-12 12:59] VITALS: BP 120/75
[2021-07-12] MEDS: INSULIN ASPART/LISPRO 100 UNIT/ML CARTRIDGE SQ PRN ×2 (13:00→18:21)
[2021-07-12] MEDS: GLUCERNA 1.2 1,000 ML BOTTLE GT PRN (17:04)
[2021-07-12] MEDS: ATORVASTATIN 10 MG TABLET GT SCH (21:16)
[2021-07-12] MEDS: POLYETHYLENE GLYCOL 3350 17 GM POWD.PACK GT SCH (21:16)
[2021-07-12] MEDS: INSULIN GLARGINE,BASAGLAR 100 UNIT/ML INSULN.PEN SQ SCH (21:17)
[2021-07-12] MEDS: ENOXAPARIN SODIUM 40 MG/0.4 ML DISP.SYRIN SQ SCH (21:18)
[2021-07-12 23:32] VITALS: BP 120/77
[2021-07-13] MEDS: ALBUTEROL FS 2.5 MG/0.5 ML VIAL.NEB NEB SCH ×4 (01:29→20:00)
[2021-07-13] MEDS: IPRATROPIUM NEB FS 0.5 MG/2.5 ML AMPUL.NEB NEB SCH ×4 (01:29→20:00)
[2021-07-13] MEDS: POLYVINYL ALCOHOL 15 ML BOTTLE EACHEYE SCH ×4 (05:47→23:40)
[2021-07-13] MEDS: OMEPRAZOLE 20 MG CAPSULE.DR GT SCH (05:47)
[2021-07-13] MEDS: BLOOD SUGAR DIAGNOSTIC 1 EACH STRIP IN SCH ×4 (05:47→23:40)
[2021-07-13] MEDS: HYDROGEN PEROXIDE 480 ML BOTTLE TP SCH ×2 (07:31→21:04)
[2021-07-13 07:42] VITALS: BP 128/74
[2021-07-13] MEDS: DILTIAZEM HCL 30 MG TABLET GT SCH ×2 (08:51→20:09)
[2021-07-13] MEDS: ASCORBIC ACID 500 MG TABLET GT SCH (08:52)
[2021-07-13] MEDS: DOCUSATE SODIUM LIQ 100 MG/10 ML UDC GT SCH ×2 (08:52→17:11)
[2021-07-13] MEDS: SITAGLIPTIN PHOSPHATE 50 MG TABLET GT SCH (08:52)
[2021-07-13] MEDS: LISINOPRIL (5MG) 5 MG TABLET GT SCH (08:52)
[2021-07-13] MEDS: ACIDOPHILUS/BULGARICUS 1 EACH TAB.CHEW GT SCH ×2 (08:52→17:11)
[2021-07-13] MEDS: ZINC SULFATE 220 MG CAPSULE GT SCH (08:52)
[2021-07-13] MEDS: FERROUS SULFATE - FOR SA ONLY 330 MG/7.5 ML UDC GT SCH (08:52)
[2021-07-13] MEDS: MULTIVIT W/MINERALS 1 TAB TABLET GT SCH (08:52)
[2021-07-13] MEDS: LEVETIRACETAM SOL (5 ML) 100 MG/ML UDC GT SCH ×2 (08:52→20:11)
[2021-07-13] MEDS: NYSTATIN TOP POWDER 15 GM BOTTLE TP SCH ×2 (09:08→20:11)
[2021-07-13] MEDS: VITAMINS A AND D 56.7 GM TUBE TP SCH ×4 (09:08→20:12)
[2021-07-13] MEDS: INSULIN ASPART/LISPRO 100 UNIT/ML CARTRIDGE SQ PRN ×3 (12:52→23:41)
[2021-07-13 13:50] VITALS: BP 127/72
[2021-07-13] MEDS: GLUCERNA 1.2 1,000 ML BOTTLE GT PRN (17:11)
[2021-07-13 20:12] VITALS: BP 104/67
[2021-07-13] MEDS: ATORVASTATIN 10 MG TABLET GT SCH (21:03)
[2021-07-13] MEDS: POLYETHYLENE GLYCOL 3350 17 GM POWD.PACK GT SCH (21:03)
[2021-07-13] MEDS: INSULIN GLARGINE,BASAGLAR 100 UNIT/ML INSULN.PEN SQ SCH (21:05)
[2021-07-13] MEDS: ENOXAPARIN SODIUM 40 MG/0.4 ML DISP.SYRIN SQ SCH (21:05)
[2021-07-14] MEDS: IPRATROPIUM NEB FS 0.5 MG/2.5 ML AMPUL.NEB NEB SCH ×4 (01:35→20:27)
[2021-07-14] MEDS: ALBUTEROL FS 2.5 MG/0.5 ML VIAL.NEB NEB SCH ×4 (01:35→20:27)
[2021-07-14] MEDS: POLYVINYL ALCOHOL 15 ML BOTTLE EACHEYE SCH ×3 (05:02→17:06)
[2021-07-14] MEDS: BLOOD SUGAR DIAGNOSTIC 1 EACH STRIP IN SCH ×3 (05:02→17:38)
[2021-07-14] MEDS: OMEPRAZOLE 20 MG CAPSULE.DR GT SCH (05:02)
[2021-07-14] MEDS: INSULIN ASPART/LISPRO 100 UNIT/ML CARTRIDGE SQ PRN (05:09)
[2021-07-14 07:40] VITALS: BP 111/57
[2021-07-14] MEDS: HYDROGEN PEROXIDE 480 ML BOTTLE TP SCH ×2 (08:25→20:27)
[2021-07-14] MEDS: SITAGLIPTIN PHOSPHATE 50 MG TABLET GT SCH (09:45)
[2021-07-14] MEDS: FERROUS SULFATE - FOR SA ONLY 330 MG/7.5 ML UDC GT SCH (09:45)
[2021-07-14] MEDS: LEVETIRACETAM SOL (5 ML) 100 MG/ML UDC GT SCH ×2 (09:45→21:07)
[2021-07-14] MEDS: DOCUSATE SODIUM LIQ 100 MG/10 ML UDC GT SCH ×2 (09:45→17:06)
[2021-07-14] MEDS: DILTIAZEM HCL 30 MG TABLET GT SCH ×2 (09:45→21:07)
[2021-07-14] MEDS: NYSTATIN TOP POWDER 15 GM BOTTLE TP SCH ×2 (09:46→21:08)
[2021-07-14] MEDS: ZINC SULFATE 220 MG CAPSULE GT SCH (09:46)
[2021-07-14] MEDS: LISINOPRIL (5MG) 5 MG TABLET GT SCH (09:46)
[2021-07-14] MEDS: MULTIVIT W/MINERALS 1 TAB TABLET GT SCH (09:46)
[2021-07-14] MEDS: ACIDOPHILUS/BULGARICUS 1 EACH TAB.CHEW GT SCH ×2 (09:46→17:06)
[2021-07-14] MEDS: ASCORBIC ACID 500 MG TABLET GT SCH (09:46)
[2021-07-14] MEDS: VITAMINS A AND D 56.7 GM TUBE TP SCH ×4 (09:47→21:08)
[2021-07-14] MEDS: GLUCERNA 1.2 1,000 ML BOTTLE GT PRN (17:38)
[2021-07-14 20:24] VITALS: BP 127/70
[2021-07-14] MEDS: POLYETHYLENE GLYCOL 3350 17 GM POWD.PACK GT SCH (21:08)
[2021-07-14] MEDS: ATORVASTATIN 10 MG TABLET GT SCH (21:08)
[2021-07-14] MEDS: ENOXAPARIN SODIUM 40 MG/0.4 ML DISP.SYRIN SQ SCH (21:08)
[2021-07-14] MEDS: INSULIN GLARGINE,BASAGLAR 100 UNIT/ML INSULN.PEN SQ SCH (21:51)
--- NOTE | 2021-07-14 23:45 | NUR ---
Blood glucose 111mg\dl
[2021-07-15] MEDS: BLOOD SUGAR DIAGNOSTIC 1 EACH STRIP IN SCH ×4 (00:17→17:24)
[2021-07-15] MEDS: INSULIN ASPART/LISPRO 100 UNIT/ML CARTRIDGE SQ PRN ×4 (00:17→17:24)
[2021-07-15] MEDS: POLYVINYL ALCOHOL 15 ML BOTTLE EACHEYE SCH ×4 (00:17→17:24)
[2021-07-15] MEDS: ALBUTEROL FS 2.5 MG/0.5 ML VIAL.NEB NEB SCH ×4 (02:27→20:51)
[2021-07-15] MEDS: IPRATROPIUM NEB FS 0.5 MG/2.5 ML AMPUL.NEB NEB SCH ×4 (02:27→20:51)
[2021-07-15] MEDS: OMEPRAZOLE 20 MG CAPSULE.DR GT SCH (05:18)
[2021-07-15 07:21] VITALS: BP 114/58
[2021-07-15] MEDS: HYDROGEN PEROXIDE 480 ML BOTTLE TP SCH ×2 (08:37→20:51)
[2021-07-15] MEDS: DILTIAZEM HCL 30 MG TABLET GT SCH ×2 (09:00→20:02)
[2021-07-15] MEDS: FERROUS SULFATE - FOR SA ONLY 330 MG/7.5 ML UDC GT SCH (09:30)
[2021-07-15] MEDS: DOCUSATE SODIUM LIQ 100 MG/10 ML UDC GT SCH ×2 (09:30→16:35)
[2021-07-15] MEDS: SITAGLIPTIN PHOSPHATE 50 MG TABLET GT SCH (09:30)
[2021-07-15] MEDS: ACIDOPHILUS/BULGARICUS 1 EACH TAB.CHEW GT SCH ×2 (09:32→16:36)
[2021-07-15] MEDS: LEVETIRACETAM SOL (5 ML) 100 MG/ML UDC GT SCH ×2 (09:32→20:02)
[2021-07-15] MEDS: LISINOPRIL (5MG) 5 MG TABLET GT SCH (09:32)
[2021-07-15] MEDS: MULTIVIT W/MINERALS 1 TAB TABLET GT SCH (09:33)
[2021-07-15] MEDS: ASCORBIC ACID 500 MG TABLET GT SCH (09:33)
[2021-07-15] MEDS: ZINC SULFATE 220 MG CAPSULE GT SCH (09:33)
[2021-07-15] MEDS: VITAMINS A AND D 56.7 GM TUBE TP SCH ×4 (09:33→20:02)
[2021-07-15 13:56] VITALS: BP 125/82
[2021-07-15] MEDS: GLUCERNA 1.2 1,000 ML BOTTLE GT PRN (17:41)
[2021-07-15 19:44] VITALS: BP 109/70
[2021-07-15] MEDS: ATORVASTATIN 10 MG TABLET GT SCH (21:09)
[2021-07-15] MEDS: POLYETHYLENE GLYCOL 3350 17 GM POWD.PACK GT SCH (21:09)
[2021-07-15] MEDS: INSULIN GLARGINE,BASAGLAR 100 UNIT/ML INSULN.PEN SQ SCH (21:10)
[2021-07-15] MEDS: ENOXAPARIN SODIUM 40 MG/0.4 ML DISP.SYRIN SQ SCH (21:10)
[2021-07-16] MEDS: POLYVINYL ALCOHOL 15 ML BOTTLE EACHEYE SCH ×5 (00:02→23:41)
[2021-07-16] MEDS: INSULIN ASPART/LISPRO 100 UNIT/ML CARTRIDGE SQ PRN ×5 (00:02→23:42)
[2021-07-16] MEDS: BLOOD SUGAR DIAGNOSTIC 1 EACH STRIP IN SCH ×5 (00:02→23:41)
[2021-07-16 00:22] VITALS: BP 118/69
[2021-07-16] MEDS: IPRATROPIUM NEB FS 0.5 MG/2.5 ML AMPUL.NEB NEB SCH ×4 (02:26→19:44)
[2021-07-16] MEDS: ALBUTEROL FS 2.5 MG/0.5 ML VIAL.NEB NEB SCH ×4 (02:26→19:44)
[2021-07-16] MEDS: OMEPRAZOLE 20 MG CAPSULE.DR GT SCH (05:25)
[2021-07-16 07:28] VITALS: BP 117/67
[2021-07-16] MEDS: LEVETIRACETAM SOL (5 ML) 100 MG/ML UDC GT SCH ×2 (08:19→20:47)
[2021-07-16] MEDS: FERROUS SULFATE - FOR SA ONLY 330 MG/7.5 ML UDC GT SCH (08:19)
[2021-07-16] MEDS: SITAGLIPTIN PHOSPHATE 50 MG TABLET GT SCH (08:19)
[2021-07-16] MEDS: DILTIAZEM HCL 30 MG TABLET GT SCH ×2 (08:19→20:47)
[2021-07-16] MEDS: DOCUSATE SODIUM LIQ 100 MG/10 ML UDC GT SCH ×2 (08:19→16:46)
[2021-07-16] MEDS: ASCORBIC ACID 500 MG TABLET GT SCH (08:20)
[2021-07-16] MEDS: ACIDOPHILUS/BULGARICUS 1 EACH TAB.CHEW GT SCH ×2 (08:20→16:46)
[2021-07-16] MEDS: LISINOPRIL (5MG) 5 MG TABLET GT SCH (08:20)
[2021-07-16] MEDS: ZINC SULFATE 220 MG CAPSULE GT SCH (08:20)
[2021-07-16] MEDS: MULTIVIT W/MINERALS 1 TAB TABLET GT SCH (08:20)
[2021-07-16] MEDS: VITAMINS A AND D 56.7 GM TUBE TP SCH ×4 (08:21→20:47)
[2021-07-16] MEDS: HYDROGEN PEROXIDE 480 ML BOTTLE TP SCH ×2 (08:43→20:06)
[2021-07-16 12:12] VITALS: BP 129/62
--- NOTE | 2021-07-16 14:42 | NUR ---
ORACIO emailed pt.'s daughter, Kelly the current visitation Guidelines to
--- NOTE | 2021-07-16 14:49 | NUR ---
INTERDISCIPLINARY PLAN OF CARE CONFERENCE took place today. The patients responsible constitution party, Kelly [phone] Capone and Interdisciplinary team discussed the plan of care in detail. Current orders as well as treatments and medications were reviewed. Addendum: 07/19/21 at 1521 by LUIS ALBERTO NARAYANAN The patients responsible constitution party, Kelly [phone] participated via phone conference.
[2021-07-16 20:03] VITALS: BP 117/66
[2021-07-16] MEDS: POLYETHYLENE GLYCOL 3350 17 GM POWD.PACK GT SCH (21:10)
[2021-07-16] MEDS: ATORVASTATIN 10 MG TABLET GT SCH (21:10)
[2021-07-16] MEDS: ENOXAPARIN SODIUM 40 MG/0.4 ML DISP.SYRIN SQ SCH (21:10)
[2021-07-16] MEDS: INSULIN GLARGINE,BASAGLAR 100 UNIT/ML INSULN.PEN SQ SCH (21:17)
[2021-07-17 00:40] VITALS: BP 92/51
[2021-07-17] MEDS: IPRATROPIUM NEB FS 0.5 MG/2.5 ML AMPUL.NEB NEB SCH ×4 (01:21→20:08)
[2021-07-17] MEDS: ALBUTEROL FS 2.5 MG/0.5 ML VIAL.NEB NEB SCH ×4 (01:21→20:08)
[2021-07-17] MEDS: GLUCERNA 1.2 1,000 ML BOTTLE GT PRN (01:42)
[2021-07-17] MEDS: BLOOD SUGAR DIAGNOSTIC 1 EACH STRIP IN SCH ×4 (05:23→23:43)
[2021-07-17] MEDS: INSULIN ASPART/LISPRO 100 UNIT/ML CARTRIDGE SQ PRN ×4 (05:23→23:43)
[2021-07-17] MEDS: OMEPRAZOLE 20 MG CAPSULE.DR GT SCH (05:23)
[2021-07-17] MEDS: POLYVINYL ALCOHOL 15 ML BOTTLE EACHEYE SCH ×4 (05:23→23:43)
[2021-07-17 07:29] VITALS: BP 101/69
[2021-07-17] MEDS: DILTIAZEM HCL 30 MG TABLET GT SCH ×2 (08:22→21:00)
[2021-07-17] MEDS: DOCUSATE SODIUM LIQ 100 MG/10 ML UDC GT SCH ×2 (08:23→16:07)
[2021-07-17] MEDS: ZINC SULFATE 220 MG CAPSULE GT SCH (08:23)
[2021-07-17] MEDS: ACIDOPHILUS/BULGARICUS 1 EACH TAB.CHEW GT SCH ×2 (08:23→16:07)
[2021-07-17] MEDS: VITAMINS A AND D 56.7 GM TUBE TP SCH ×4 (08:23→21:06)
[2021-07-17] MEDS: SITAGLIPTIN PHOSPHATE 50 MG TABLET GT SCH (08:23)
[2021-07-17] MEDS: LEVETIRACETAM SOL (5 ML) 100 MG/ML UDC GT SCH ×2 (08:23→21:05)
[2021-07-17] MEDS: ASCORBIC ACID 500 MG TABLET GT SCH (08:23)
[2021-07-17] MEDS: LISINOPRIL (5MG) 5 MG TABLET GT SCH (08:23)
[2021-07-17] MEDS: FERROUS SULFATE - FOR SA ONLY 330 MG/7.5 ML UDC GT SCH (08:23)
[2021-07-17] MEDS: MULTIVIT W/MINERALS 1 TAB TABLET GT SCH (08:23)
[2021-07-17] MEDS: HYDROGEN PEROXIDE 480 ML BOTTLE TP SCH ×2 (08:55→21:11)
[2021-07-17 12:05] VITALS: BP 122/67
[2021-07-17 20:18] VITALS: BP 107/55
[2021-07-17] MEDS: ATORVASTATIN 10 MG TABLET GT SCH (21:06)
[2021-07-17] MEDS: POLYETHYLENE GLYCOL 3350 17 GM POWD.PACK GT SCH (21:06)
[2021-07-17] MEDS: ENOXAPARIN SODIUM 40 MG/0.4 ML DISP.SYRIN SQ SCH (21:07)
[2021-07-17] MEDS: INSULIN GLARGINE,BASAGLAR 100 UNIT/ML INSULN.PEN SQ SCH (21:25)
[2021-07-18 00:47] VITALS: BP 124/78
[2021-07-18] MEDS: ALBUTEROL FS 2.5 MG/0.5 ML VIAL.NEB NEB SCH ×4 (01:31→19:46)
[2021-07-18] MEDS: IPRATROPIUM NEB FS 0.5 MG/2.5 ML AMPUL.NEB NEB SCH ×4 (01:31→19:46)
[2021-07-18] MEDS: BLOOD SUGAR DIAGNOSTIC 1 EACH STRIP IN SCH ×3 (05:46→18:00)
[2021-07-18] MEDS: POLYVINYL ALCOHOL 15 ML BOTTLE EACHEYE SCH ×3 (05:46→18:00)
[2021-07-18] MEDS: GLUCERNA 1.2 1,000 ML BOTTLE GT PRN (05:46)
[2021-07-18] MEDS: INSULIN ASPART/LISPRO 100 UNIT/ML CARTRIDGE SQ PRN ×3 (05:46→18:01)
[2021-07-18] MEDS: OMEPRAZOLE 20 MG CAPSULE.DR GT SCH (05:46)
[2021-07-18 07:39] VITALS: BP 111/68
[2021-07-18] MEDS: HYDROGEN PEROXIDE 480 ML BOTTLE TP SCH ×2 (09:12→21:17)
[2021-07-18] MEDS: DOCUSATE SODIUM LIQ 100 MG/10 ML UDC GT SCH ×2 (09:39→17:00)
[2021-07-18] MEDS: FERROUS SULFATE - FOR SA ONLY 330 MG/7.5 ML UDC GT SCH (09:39)
[2021-07-18] MEDS: DILTIAZEM HCL 30 MG TABLET GT SCH ×2 (09:39→20:02)
[2021-07-18] MEDS: SITAGLIPTIN PHOSPHATE 50 MG TABLET GT SCH (09:40)
[2021-07-18] MEDS: LISINOPRIL (5MG) 5 MG TABLET GT SCH (09:40)
[2021-07-18] MEDS: LEVETIRACETAM SOL (5 ML) 100 MG/ML UDC GT SCH ×2 (09:40→20:03)
[2021-07-18] MEDS: VITAMINS A AND D 56.7 GM TUBE TP SCH ×4 (09:40→20:03)
[2021-07-18] MEDS: ZINC SULFATE 220 MG CAPSULE GT SCH (09:40)
[2021-07-18] MEDS: MULTIVIT W/MINERALS 1 TAB TABLET GT SCH (09:40)
[2021-07-18] MEDS: ACIDOPHILUS/BULGARICUS 1 EACH TAB.CHEW GT SCH ×2 (09:40→17:00)
[2021-07-18] MEDS: ASCORBIC ACID 500 MG TABLET GT SCH (09:40)
[2021-07-18 12:10] VITALS: BP 101/65
[2021-07-18 20:37] VITALS: BP 108/64
[2021-07-18] MEDS: POLYETHYLENE GLYCOL 3350 17 GM POWD.PACK GT SCH (21:16)
[2021-07-18] MEDS: ATORVASTATIN 10 MG TABLET GT SCH (21:16)
[2021-07-18] MEDS: ENOXAPARIN SODIUM 40 MG/0.4 ML DISP.SYRIN SQ SCH (21:17)
[2021-07-18] MEDS: INSULIN GLARGINE,BASAGLAR 100 UNIT/ML INSULN.PEN SQ SCH (21:17)
[2021-07-19] MEDS: BLOOD SUGAR DIAGNOSTIC 1 EACH STRIP IN SCH ×4 (00:16→17:26)
[2021-07-19] MEDS: POLYVINYL ALCOHOL 15 ML BOTTLE EACHEYE SCH ×4 (00:16→17:26)
[2021-07-19] MEDS: INSULIN ASPART/LISPRO 100 UNIT/ML CARTRIDGE SQ PRN ×4 (00:20→17:26)
[2021-07-19] MEDS: ALBUTEROL FS 2.5 MG/0.5 ML VIAL.NEB NEB SCH ×4 (01:32→20:41)
[2021-07-19] MEDS: IPRATROPIUM NEB FS 0.5 MG/2.5 ML AMPUL.NEB NEB SCH ×4 (01:32→20:41)
[2021-07-19] MEDS: OMEPRAZOLE 20 MG CAPSULE.DR GT SCH (05:02)
[2021-07-19] MEDS: GLUCERNA 1.2 1,000 ML BOTTLE GT PRN ×2 (05:06→18:51)
[2021-07-19] MEDS: HYDROGEN PEROXIDE 480 ML BOTTLE TP SCH ×2 (07:30→20:41)
[2021-07-19 07:39] VITALS: BP 107/68
[2021-07-19] MEDS: FERROUS SULFATE - FOR SA ONLY 330 MG/7.5 ML UDC GT SCH (08:58)
[2021-07-19] MEDS: DOCUSATE SODIUM LIQ 100 MG/10 ML UDC GT SCH ×2 (08:58→16:26)
[2021-07-19] MEDS: DILTIAZEM HCL 30 MG TABLET GT SCH ×2 (08:58→20:02)
[2021-07-19] MEDS: SITAGLIPTIN PHOSPHATE 50 MG TABLET GT SCH (08:59)
[2021-07-19] MEDS: LEVETIRACETAM SOL (5 ML) 100 MG/ML UDC GT SCH ×2 (08:59→20:03)
[2021-07-19] MEDS: ACIDOPHILUS/BULGARICUS 1 EACH TAB.CHEW GT SCH ×2 (09:00→16:26)
[2021-07-19] MEDS: LISINOPRIL (5MG) 5 MG TABLET GT SCH (09:00)
[2021-07-19] MEDS: MULTIVIT W/MINERALS 1 TAB TABLET GT SCH (09:01)
[2021-07-19] MEDS: ASCORBIC ACID 500 MG TABLET GT SCH (09:01)
[2021-07-19] MEDS: ZINC SULFATE 220 MG CAPSULE GT SCH (09:04)
[2021-07-19] MEDS: VITAMINS A AND D 56.7 GM TUBE TP SCH ×4 (09:04→20:03)
[2021-07-19 13:54] VITALS: BP 126/72
[2021-07-19 20:14] VITALS: BP 114/67
[2021-07-19] MEDS: POLYETHYLENE GLYCOL 3350 17 GM POWD.PACK GT SCH (21:05)
[2021-07-19] MEDS: ATORVASTATIN 10 MG TABLET GT SCH (21:05)
[2021-07-19] MEDS: INSULIN GLARGINE,BASAGLAR 100 UNIT/ML INSULN.PEN SQ SCH (21:09)
[2021-07-19] MEDS: ENOXAPARIN SODIUM 40 MG/0.4 ML DISP.SYRIN SQ SCH (21:10)
[2021-07-20] MEDS: POLYVINYL ALCOHOL 15 ML BOTTLE EACHEYE SCH ×5 (00:14→23:57)
[2021-07-20] MEDS: BLOOD SUGAR DIAGNOSTIC 1 EACH STRIP IN SCH ×5 (00:14→23:57)
[2021-07-20] MEDS: INSULIN ASPART/LISPRO 100 UNIT/ML CARTRIDGE SQ PRN ×5 (00:15→23:57)
[2021-07-20] MEDS: IPRATROPIUM NEB FS 0.5 MG/2.5 ML AMPUL.NEB NEB SCH ×4 (02:22→19:43)
[2021-07-20] MEDS: ALBUTEROL FS 2.5 MG/0.5 ML VIAL.NEB NEB SCH ×4 (02:22→19:43)
[2021-07-20] MEDS: OMEPRAZOLE 20 MG CAPSULE.DR GT SCH (05:09)
[2021-07-20 07:30] VITALS: BP 113/71
--- NOTE | 2021-07-20 09:00 | NUR ---
Seen and examined by Dr. Capone no new orders.
[2021-07-20] MEDS: DILTIAZEM HCL 30 MG TABLET GT SCH ×2 (09:09→20:14)
[2021-07-20] MEDS: ACIDOPHILUS/BULGARICUS 1 EACH TAB.CHEW GT SCH ×2 (09:09→16:54)
[2021-07-20] MEDS: SITAGLIPTIN PHOSPHATE 50 MG TABLET GT SCH (09:09)
[2021-07-20] MEDS: DOCUSATE SODIUM LIQ 100 MG/10 ML UDC GT SCH ×2 (09:09→16:54)
[2021-07-20] MEDS: FERROUS SULFATE - FOR SA ONLY 330 MG/7.5 ML UDC GT SCH (09:09)
[2021-07-20] MEDS: LEVETIRACETAM SOL (5 ML) 100 MG/ML UDC GT SCH ×2 (09:09→20:15)
[2021-07-20] MEDS: LISINOPRIL (5MG) 5 MG TABLET GT SCH (09:10)
[2021-07-20] MEDS: ZINC SULFATE 220 MG CAPSULE GT SCH (09:11)
[2021-07-20] MEDS: VITAMINS A AND D 56.7 GM TUBE TP SCH ×4 (09:11→20:15)
[2021-07-20] MEDS: MULTIVIT W/MINERALS 1 TAB TABLET GT SCH (09:11)
[2021-07-20] MEDS: ASCORBIC ACID 500 MG TABLET GT SCH (09:11)
[2021-07-20] MEDS: HYDROGEN PEROXIDE 480 ML BOTTLE TP SCH ×2 (09:16→19:43)
[2021-07-20 11:51] VITALS: BP 131/73
[2021-07-20 20:32] VITALS: BP 90/54
[2021-07-20] MEDS: POLYETHYLENE GLYCOL 3350 17 GM POWD.PACK GT SCH (21:15)
[2021-07-20] MEDS: ATORVASTATIN 10 MG TABLET GT SCH (21:15)
[2021-07-20] MEDS: INSULIN GLARGINE,BASAGLAR 100 UNIT/ML INSULN.PEN SQ SCH (21:16)
[2021-07-20] MEDS: ENOXAPARIN SODIUM 40 MG/0.4 ML DISP.SYRIN SQ SCH (21:16)
[2021-07-21] MEDS: ALBUTEROL FS 2.5 MG/0.5 ML VIAL.NEB NEB SCH ×4 (01:49→19:08)
[2021-07-21] MEDS: IPRATROPIUM NEB FS 0.5 MG/2.5 ML AMPUL.NEB NEB SCH ×4 (01:49→19:08)
[2021-07-21] MEDS: OMEPRAZOLE 20 MG CAPSULE.DR GT SCH (05:12)
[2021-07-21] MEDS: POLYVINYL ALCOHOL 15 ML BOTTLE EACHEYE SCH ×4 (05:12→23:30)
[2021-07-21] MEDS: INSULIN ASPART/LISPRO 100 UNIT/ML CARTRIDGE SQ PRN ×4 (05:12→23:30)
[2021-07-21] MEDS: BLOOD SUGAR DIAGNOSTIC 1 EACH STRIP IN SCH ×4 (05:12→23:30)
[2021-07-21 07:42] VITALS: BP 124/73
[2021-07-21] MEDS: DILTIAZEM HCL 30 MG TABLET GT SCH ×2 (09:05→21:19)
[2021-07-21] MEDS: DOCUSATE SODIUM LIQ 100 MG/10 ML UDC GT SCH ×2 (09:05→17:35)
[2021-07-21] MEDS: ACIDOPHILUS/BULGARICUS 1 EACH TAB.CHEW GT SCH ×2 (09:06→17:35)
[2021-07-21] MEDS: FERROUS SULFATE - FOR SA ONLY 330 MG/7.5 ML UDC GT SCH (09:06)
[2021-07-21] MEDS: HYDROGEN PEROXIDE 480 ML BOTTLE TP SCH ×2 (09:06→20:40)
[2021-07-21] MEDS: LEVETIRACETAM SOL (5 ML) 100 MG/ML UDC GT SCH ×2 (09:06→21:20)
[2021-07-21] MEDS: SITAGLIPTIN PHOSPHATE 50 MG TABLET GT SCH (09:06)
[2021-07-21] MEDS: ASCORBIC ACID 500 MG TABLET GT SCH (09:07)
[2021-07-21] MEDS: ZINC SULFATE 220 MG CAPSULE GT SCH (09:07)
[2021-07-21] MEDS: MULTIVIT W/MINERALS 1 TAB TABLET GT SCH (09:07)
[2021-07-21] MEDS: VITAMINS A AND D 56.7 GM TUBE TP SCH ×4 (09:07→21:20)
[2021-07-21] MEDS: LISINOPRIL (5MG) 5 MG TABLET GT SCH (09:07)
[2021-07-21 12:14] VITALS: BP 122/64
[2021-07-21] MEDS: GLUCERNA 1.2 1,000 ML BOTTLE GT PRN (18:53)
[2021-07-21 20:13] VITALS: BP 119/62
[2021-07-21] MEDS: POLYETHYLENE GLYCOL 3350 17 GM POWD.PACK GT SCH (21:20)
[2021-07-21] MEDS: ENOXAPARIN SODIUM 40 MG/0.4 ML DISP.SYRIN SQ SCH (21:20)
[2021-07-21] MEDS: ATORVASTATIN 10 MG TABLET GT SCH (21:20)
[2021-07-21] MEDS: INSULIN GLARGINE,BASAGLAR 100 UNIT/ML INSULN.PEN SQ SCH (22:07)
[2021-07-22] MEDS: IPRATROPIUM NEB FS 0.5 MG/2.5 ML AMPUL.NEB NEB SCH ×4 (01:13→20:21)
[2021-07-22] MEDS: ALBUTEROL FS 2.5 MG/0.5 ML VIAL.NEB NEB SCH ×4 (01:13→20:21)
[2021-07-22 01:25] VITALS: BP 115/60
[2021-07-22] MEDS: OMEPRAZOLE 20 MG CAPSULE.DR GT SCH (05:37)
[2021-07-22] MEDS: POLYVINYL ALCOHOL 15 ML BOTTLE EACHEYE SCH ×4 (05:37→23:54)
[2021-07-22] MEDS: BLOOD SUGAR DIAGNOSTIC 1 EACH STRIP IN SCH ×4 (05:37→23:54)
[2021-07-22] MEDS: INSULIN ASPART/LISPRO 100 UNIT/ML CARTRIDGE SQ PRN ×4 (05:38→23:54)
[2021-07-22 05:41] VITALS: BP 105/65
[2021-07-22 07:18] LABS: BASOPHILS % (AUTO) 0.8 % (0.0-2.0); HEMATOCRIT 41 % (33-45); HEMOGLOBIN 13.2 g/dL (11.5-14.8); LYMPHOCYTES # (AUTO) 2.4 K/uL (0.8-4.8); LYMPHOCYTES % (AUTO) 45.3 % (20.0-44.0); MEAN CORPUSCULAR HGB CONC 33 g/dl (31.0-36.0); MEAN CORPUSCULAR VOLUME 93 fL (82-100); MONOCYTES # (AUTO) 0.6 K/uL (0.1-1.30); MONOCYTES % (AUTO) 10.8 % (2.0-12.0); NEUTROPHILS % (AUTO) 38.1 % (43.0-81.0); PLATELET COUNT (AUTO) 301 K/uL (150-450); RED BLOOD CELL COUNT(AUTO) 4.39 MIL/uL (4.0-5.2); WHITE BLOOD COUNT (AUTO) 5.3 K/uL (4.3-11.0)
[2021-07-22 07:49] LABS: CALCIUM, SERUM 9.3 mg/dL (8.5-10.1); MAGNESIUM 2.4 mg/dL (1.8-2.4); POTASSIUM 4.9 mmol/L (3.5-5.1)
[2021-07-22 07:51] VITALS: BP 97/59
[2021-07-22] MEDS: HYDROGEN PEROXIDE 480 ML BOTTLE TP SCH ×2 (08:25→20:21)
[2021-07-22] MEDS: ACIDOPHILUS/BULGARICUS 1 EACH TAB.CHEW GT SCH ×2 (08:35→17:42)
[2021-07-22] MEDS: SITAGLIPTIN PHOSPHATE 50 MG TABLET GT SCH (08:35)
[2021-07-22] MEDS: LEVETIRACETAM SOL (5 ML) 100 MG/ML UDC GT SCH ×2 (08:35→21:27)
[2021-07-22] MEDS: DOCUSATE SODIUM LIQ 100 MG/10 ML UDC GT SCH ×2 (08:35→17:42)
[2021-07-22] MEDS: FERROUS SULFATE - FOR SA ONLY 330 MG/7.5 ML UDC GT SCH (08:35)
[2021-07-22] MEDS: DILTIAZEM HCL 30 MG TABLET GT SCH ×2 (08:35→21:00)
[2021-07-22] MEDS: MULTIVIT W/MINERALS 1 TAB TABLET GT SCH (08:36)
[2021-07-22] MEDS: VITAMINS A AND D 56.7 GM TUBE TP SCH ×4 (08:36→21:27)
[2021-07-22] MEDS: LISINOPRIL (5MG) 5 MG TABLET GT SCH (08:36)
[2021-07-22] MEDS: ASCORBIC ACID 500 MG TABLET GT SCH (08:36)
[2021-07-22] MEDS: ZINC SULFATE 220 MG CAPSULE GT SCH (08:36)
--- NOTE | 2021-07-22 11:25 | NUR ---
Moderna Vaccine informational sheet emailed to the pt.'s daughter, Kelly at
[2021-07-22 12:10] VITALS: BP 114/67
--- NOTE | 2021-07-22 13:37 | NUR ---
Monthly progressive notes, Resident is passive, moves right and left with eyes open but does not track.Resident received daily visit for sensory stimulation, reality orientation,m tv, music, hand massage These activities will be provided as needed.
[2021-07-22 20:14] VITALS: BP 93/59
[2021-07-22] MEDS: POLYETHYLENE GLYCOL 3350 17 GM POWD.PACK GT SCH (21:27)
[2021-07-22] MEDS: ATORVASTATIN 10 MG TABLET GT SCH (21:27)
[2021-07-22] MEDS: INSULIN GLARGINE,BASAGLAR 100 UNIT/ML INSULN.PEN SQ SCH (21:29)
[2021-07-22] MEDS: ENOXAPARIN SODIUM 40 MG/0.4 ML DISP.SYRIN SQ SCH (21:29)
[2021-07-22] MEDS: GLUCERNA 1.2 1,000 ML BOTTLE GT PRN (23:54)
[2021-07-23 00:18] VITALS: BP 108/63
[2021-07-23] MEDS: IPRATROPIUM NEB FS 0.5 MG/2.5 ML AMPUL.NEB NEB SCH ×4 (01:38→20:30)
[2021-07-23] MEDS: ALBUTEROL FS 2.5 MG/0.5 ML VIAL.NEB NEB SCH ×4 (01:38→20:30)
[2021-07-23] MEDS: POLYVINYL ALCOHOL 15 ML BOTTLE EACHEYE SCH ×4 (05:19→23:14)
[2021-07-23] MEDS: OMEPRAZOLE 20 MG CAPSULE.DR GT SCH (05:19)
[2021-07-23] MEDS: INSULIN ASPART/LISPRO 100 UNIT/ML CARTRIDGE SQ PRN ×4 (05:19→23:14)
[2021-07-23] MEDS: BLOOD SUGAR DIAGNOSTIC 1 EACH STRIP IN SCH ×4 (05:19→23:14)
[2021-07-23 07:44] VITALS: BP 126/66
[2021-07-23] MEDS: ASCORBIC ACID 500 MG TABLET GT SCH (09:08)
[2021-07-23] MEDS: LEVETIRACETAM SOL (5 ML) 100 MG/ML UDC GT SCH ×2 (09:08→20:57)
[2021-07-23] MEDS: FERROUS SULFATE - FOR SA ONLY 330 MG/7.5 ML UDC GT SCH (09:08)
[2021-07-23] MEDS: ACIDOPHILUS/BULGARICUS 1 EACH TAB.CHEW GT SCH ×2 (09:08→16:26)
[2021-07-23] MEDS: DOCUSATE SODIUM LIQ 100 MG/10 ML UDC GT SCH ×2 (09:08→16:26)
[2021-07-23] MEDS: SITAGLIPTIN PHOSPHATE 50 MG TABLET GT SCH (09:08)
[2021-07-23] MEDS: MULTIVIT W/MINERALS 1 TAB TABLET GT SCH (09:08)
[2021-07-23] MEDS: ZINC SULFATE 220 MG CAPSULE GT SCH (09:08)
[2021-07-23] MEDS: DILTIAZEM HCL 30 MG TABLET GT SCH ×2 (09:08→20:57)
[2021-07-23] MEDS: LISINOPRIL (5MG) 5 MG TABLET GT SCH (09:08)
[2021-07-23] MEDS: VITAMINS A AND D 56.7 GM TUBE TP SCH ×4 (09:09→20:57)
[2021-07-23] MEDS: HYDROGEN PEROXIDE 480 ML BOTTLE TP SCH ×2 (09:11→20:30)
--- NOTE | 2021-07-23 11:20 | NUR ---
Latest Visitation Guidelines & Facility Update: ORACIO informed pt.'s responsible green party, Kelly via email that, "SW Facility Update: No [facility] employee tested positive for COVID-19 this week. Residents and staff will continue receiving routine testing. We will continue to implement [facility] infection control protocols and continue screening employees before every shift. [facility] continues to follow infection control protocols and screen our residents and staff daily for symptoms". ORACIO also informed family that the visitation guidelines have not changed at this time and notified them that per [facility], when transmission rate lowers to moderate, fully vaccinated and boosted visitors will not need to show proof of negative COVID test.
[2021-07-23 12:02] VITALS: BP 124/65
[2021-07-23 19:33] VITALS: BP 108/79
[2021-07-23] MEDS: POLYETHYLENE GLYCOL 3350 17 GM POWD.PACK GT SCH (21:02)
[2021-07-23] MEDS: ATORVASTATIN 10 MG TABLET GT SCH (21:02)
[2021-07-23] MEDS: GLUCERNA 1.2 1,000 ML BOTTLE GT PRN (21:03)
[2021-07-23] MEDS: INSULIN GLARGINE,BASAGLAR 100 UNIT/ML INSULN.PEN SQ SCH (21:03)
[2021-07-23] MEDS: ENOXAPARIN SODIUM 40 MG/0.4 ML DISP.SYRIN SQ SCH (21:03)
[2021-07-23 23:56] VITALS: BP 103/60
[2021-07-24] MEDS: IPRATROPIUM NEB FS 0.5 MG/2.5 ML AMPUL.NEB NEB SCH ×4 (02:23→20:06)
[2021-07-24] MEDS: ALBUTEROL FS 2.5 MG/0.5 ML VIAL.NEB NEB SCH ×4 (02:23→20:06)
[2021-07-24] MEDS: POLYVINYL ALCOHOL 15 ML BOTTLE EACHEYE SCH ×4 (05:27→23:27)
[2021-07-24] MEDS: GLUCERNA 1.2 1,000 ML BOTTLE GT PRN (05:27)
[2021-07-24] MEDS: OMEPRAZOLE 20 MG CAPSULE.DR GT SCH (05:27)
[2021-07-24] MEDS: BLOOD SUGAR DIAGNOSTIC 1 EACH STRIP IN SCH ×4 (05:27→23:27)
[2021-07-24] MEDS: INSULIN ASPART/LISPRO 100 UNIT/ML CARTRIDGE SQ PRN ×4 (05:27→23:27)
[2021-07-24 07:38] VITALS: BP 117/70
[2021-07-24] MEDS: HYDROGEN PEROXIDE 480 ML BOTTLE TP SCH ×2 (08:14→20:08)
[2021-07-24] MEDS: DOCUSATE SODIUM LIQ 100 MG/10 ML UDC GT SCH ×2 (08:54→16:33)
[2021-07-24] MEDS: DILTIAZEM HCL 30 MG TABLET GT SCH ×2 (08:54→20:31)
[2021-07-24] MEDS: FERROUS SULFATE - FOR SA ONLY 330 MG/7.5 ML UDC GT SCH (08:54)
[2021-07-24] MEDS: LEVETIRACETAM SOL (5 ML) 100 MG/ML UDC GT SCH ×2 (08:54→20:31)
[2021-07-24] MEDS: ASCORBIC ACID 500 MG TABLET GT SCH (08:55)
[2021-07-24] MEDS: SITAGLIPTIN PHOSPHATE 50 MG TABLET GT SCH (08:55)
[2021-07-24] MEDS: MULTIVIT W/MINERALS 1 TAB TABLET GT SCH (08:55)
[2021-07-24] MEDS: LISINOPRIL (5MG) 5 MG TABLET GT SCH (08:55)
[2021-07-24] MEDS: ACIDOPHILUS/BULGARICUS 1 EACH TAB.CHEW GT SCH ×2 (08:55→16:33)
[2021-07-24] MEDS: ZINC SULFATE 220 MG CAPSULE GT SCH (08:56)
[2021-07-24] MEDS: VITAMINS A AND D 56.7 GM TUBE TP SCH ×4 (08:56→20:31)
[2021-07-24 12:20] VITALS: BP 122/67
[2021-07-24 19:23] VITALS: BP 124/66
[2021-07-24] MEDS: POLYETHYLENE GLYCOL 3350 17 GM POWD.PACK GT SCH (21:13)
[2021-07-24] MEDS: ATORVASTATIN 10 MG TABLET GT SCH (21:13)
[2021-07-24] MEDS: INSULIN GLARGINE,BASAGLAR 100 UNIT/ML INSULN.PEN SQ SCH (21:14)
[2021-07-24] MEDS: ENOXAPARIN SODIUM 40 MG/0.4 ML DISP.SYRIN SQ SCH (21:14)
[2021-07-25 00:20] VITALS: BP 118/77
[2021-07-25] MEDS: ALBUTEROL FS 2.5 MG/0.5 ML VIAL.NEB NEB SCH ×4 (00:41→19:05)
[2021-07-25] MEDS: IPRATROPIUM NEB FS 0.5 MG/2.5 ML AMPUL.NEB NEB SCH ×4 (00:41→19:05)
[2021-07-25] MEDS: INSULIN ASPART/LISPRO 100 UNIT/ML CARTRIDGE SQ PRN ×3 (05:52→17:17)
[2021-07-25] MEDS: BLOOD SUGAR DIAGNOSTIC 1 EACH STRIP IN SCH ×3 (05:52→17:17)
[2021-07-25] MEDS: POLYVINYL ALCOHOL 15 ML BOTTLE EACHEYE SCH ×3 (05:52→17:17)
[2021-07-25] MEDS: OMEPRAZOLE 20 MG CAPSULE.DR GT SCH (05:52)
[2021-07-25 07:26] VITALS: BP 98/55
[2021-07-25] MEDS: HYDROGEN PEROXIDE 480 ML BOTTLE TP SCH ×2 (07:59→20:04)
[2021-07-25] MEDS: FERROUS SULFATE - FOR SA ONLY 330 MG/7.5 ML UDC GT SCH (08:01)
[2021-07-25] MEDS: DOCUSATE SODIUM LIQ 100 MG/10 ML UDC GT SCH ×2 (08:01→16:28)
[2021-07-25] MEDS: DILTIAZEM HCL 30 MG TABLET GT SCH ×2 (08:01→21:06)
[2021-07-25] MEDS: LEVETIRACETAM SOL (5 ML) 100 MG/ML UDC GT SCH ×2 (08:01→21:06)
[2021-07-25] MEDS: SITAGLIPTIN PHOSPHATE 50 MG TABLET GT SCH (08:01)
[2021-07-25] MEDS: ACIDOPHILUS/BULGARICUS 1 EACH TAB.CHEW GT SCH ×2 (08:01→16:28)
[2021-07-25] MEDS: VITAMINS A AND D 56.7 GM TUBE TP SCH ×4 (08:02→21:06)
[2021-07-25] MEDS: LISINOPRIL (5MG) 5 MG TABLET GT SCH (08:02)
[2021-07-25] MEDS: ASCORBIC ACID 500 MG TABLET GT SCH (08:02)
[2021-07-25] MEDS: MULTIVIT W/MINERALS 1 TAB TABLET GT SCH (08:02)
[2021-07-25] MEDS: ZINC SULFATE 220 MG CAPSULE GT SCH (08:02)
[2021-07-25 12:11] VITALS: BP 110/62
[2021-07-25] MEDS: GLUCERNA 1.2 1,000 ML BOTTLE GT PRN (16:39)
[2021-07-25 20:17] VITALS: BP 132/76
[2021-07-25] MEDS: ATORVASTATIN 10 MG TABLET GT SCH (21:06)
[2021-07-25] MEDS: POLYETHYLENE GLYCOL 3350 17 GM POWD.PACK GT SCH (21:06)
[2021-07-25] MEDS: INSULIN GLARGINE,BASAGLAR 100 UNIT/ML INSULN.PEN SQ SCH (21:07)
[2021-07-25] MEDS: ENOXAPARIN SODIUM 40 MG/0.4 ML DISP.SYRIN SQ SCH (21:08)
[2021-07-26] MEDS: POLYVINYL ALCOHOL 15 ML BOTTLE EACHEYE SCH ×5 (00:01→23:59)
[2021-07-26] MEDS: BLOOD SUGAR DIAGNOSTIC 1 EACH STRIP IN SCH ×5 (00:01→23:59)
[2021-07-26] MEDS: ALBUTEROL FS 2.5 MG/0.5 ML VIAL.NEB NEB SCH ×4 (00:45→20:00)
[2021-07-26] MEDS: IPRATROPIUM NEB FS 0.5 MG/2.5 ML AMPUL.NEB NEB SCH ×4 (00:45→20:00)
[2021-07-26] MEDS: OMEPRAZOLE 20 MG CAPSULE.DR GT SCH (05:24)
[2021-07-26 07:33] VITALS: BP 122/86
[2021-07-26] MEDS: HYDROGEN PEROXIDE 480 ML BOTTLE TP SCH ×2 (08:18→21:06)
[2021-07-26] MEDS: DILTIAZEM HCL 30 MG TABLET GT SCH ×2 (09:12→21:00)
[2021-07-26] MEDS: DOCUSATE SODIUM LIQ 100 MG/10 ML UDC GT SCH ×2 (09:13→16:33)
[2021-07-26] MEDS: ACIDOPHILUS/BULGARICUS 1 EACH TAB.CHEW GT SCH ×2 (09:14→16:33)
[2021-07-26] MEDS: LEVETIRACETAM SOL (5 ML) 100 MG/ML UDC GT SCH ×2 (09:14→21:06)
[2021-07-26] MEDS: SITAGLIPTIN PHOSPHATE 50 MG TABLET GT SCH (09:14)
[2021-07-26] MEDS: FERROUS SULFATE - FOR SA ONLY 330 MG/7.5 ML UDC GT SCH (09:14)
[2021-07-26] MEDS: MULTIVIT W/MINERALS 1 TAB TABLET GT SCH (09:15)
[2021-07-26] MEDS: LISINOPRIL (5MG) 5 MG TABLET GT SCH (09:15)
[2021-07-26] MEDS: ZINC SULFATE 220 MG CAPSULE GT SCH (09:16)
[2021-07-26] MEDS: ASCORBIC ACID 500 MG TABLET GT SCH (09:16)
[2021-07-26] MEDS: VITAMINS A AND D 56.7 GM TUBE TP SCH ×4 (09:16→21:06)
[2021-07-26] MEDS: INSULIN ASPART/LISPRO 100 UNIT/ML CARTRIDGE SQ PRN ×2 (12:40→18:10)
[2021-07-26 13:20] VITALS: BP 131/76
[2021-07-26] MEDS: GLUCERNA 1.2 1,000 ML BOTTLE GT PRN (16:34)
[2021-07-26 19:27] VITALS: BP 108/64
[2021-07-26] MEDS: POLYETHYLENE GLYCOL 3350 17 GM POWD.PACK GT SCH (21:06)
[2021-07-26] MEDS: ATORVASTATIN 10 MG TABLET GT SCH (21:06)
[2021-07-26] MEDS: ENOXAPARIN SODIUM 40 MG/0.4 ML DISP.SYRIN SQ SCH (21:07)
[2021-07-26] MEDS: INSULIN GLARGINE,BASAGLAR 100 UNIT/ML INSULN.PEN SQ SCH (21:07)
[2021-07-26 23:56] VITALS: BP 98/70
[2021-07-27] MEDS: ALBUTEROL FS 2.5 MG/0.5 ML VIAL.NEB NEB SCH ×4 (01:45→20:12)
[2021-07-27] MEDS: IPRATROPIUM NEB FS 0.5 MG/2.5 ML AMPUL.NEB NEB SCH ×4 (01:45→20:12)
[2021-07-27] MEDS: BLOOD SUGAR DIAGNOSTIC 1 EACH STRIP IN SCH ×3 (05:31→17:20)
[2021-07-27] MEDS: OMEPRAZOLE 20 MG CAPSULE.DR GT SCH (05:31)
[2021-07-27] MEDS: POLYVINYL ALCOHOL 15 ML BOTTLE EACHEYE SCH ×3 (05:31→17:20)
[2021-07-27 07:13] VITALS: BP 102/57
[2021-07-27] MEDS: HYDROGEN PEROXIDE 480 ML BOTTLE TP SCH ×2 (08:03→20:47)
[2021-07-27] MEDS: FERROUS SULFATE - FOR SA ONLY 330 MG/7.5 ML UDC GT SCH (08:12)
[2021-07-27] MEDS: DILTIAZEM HCL 30 MG TABLET GT SCH ×2 (08:12→20:44)
[2021-07-27] MEDS: DOCUSATE SODIUM LIQ 100 MG/10 ML UDC GT SCH ×2 (08:12→16:09)
[2021-07-27] MEDS: ACIDOPHILUS/BULGARICUS 1 EACH TAB.CHEW GT SCH ×2 (08:13→16:09)
[2021-07-27] MEDS: LEVETIRACETAM SOL (5 ML) 100 MG/ML UDC GT SCH ×2 (08:13→20:47)
[2021-07-27] MEDS: SITAGLIPTIN PHOSPHATE 50 MG TABLET GT SCH (08:13)
[2021-07-27] MEDS: LISINOPRIL (5MG) 5 MG TABLET GT SCH (08:14)
[2021-07-27] MEDS: ASCORBIC ACID 500 MG TABLET GT SCH (08:14)
[2021-07-27] MEDS: MULTIVIT W/MINERALS 1 TAB TABLET GT SCH (08:14)
[2021-07-27] MEDS: ZINC SULFATE 220 MG CAPSULE GT SCH (08:14)
[2021-07-27] MEDS: VITAMINS A AND D 56.7 GM TUBE TP SCH ×4 (08:14→20:48)
[2021-07-27 13:04] VITALS: BP 115/67
[2021-07-27] MEDS: INSULIN ASPART/LISPRO 100 UNIT/ML CARTRIDGE SQ PRN (17:20)
[2021-07-27] MEDS: ATORVASTATIN 10 MG TABLET GT SCH (21:02)
[2021-07-27] MEDS: ENOXAPARIN SODIUM 40 MG/0.4 ML DISP.SYRIN SQ SCH (21:02)
[2021-07-27] MEDS: POLYETHYLENE GLYCOL 3350 17 GM POWD.PACK GT SCH (21:02)
[2021-07-27] MEDS: INSULIN GLARGINE,BASAGLAR 100 UNIT/ML INSULN.PEN SQ SCH (21:11)
[2021-07-27 21:19] VITALS: BP 109/64
[2021-07-28] MEDS: POLYVINYL ALCOHOL 15 ML BOTTLE EACHEYE SCH ×5 (00:52→23:39)
[2021-07-28] MEDS: BLOOD SUGAR DIAGNOSTIC 1 EACH STRIP IN SCH ×5 (00:52→23:39)
[2021-07-28] MEDS: ALBUTEROL FS 2.5 MG/0.5 ML VIAL.NEB NEB SCH ×4 (01:41→20:08)
[2021-07-28] MEDS: IPRATROPIUM NEB FS 0.5 MG/2.5 ML AMPUL.NEB NEB SCH ×4 (01:41→20:08)
[2021-07-28] MEDS: GLUCERNA 1.2 1,000 ML BOTTLE GT PRN (04:13)
[2021-07-28] MEDS: OMEPRAZOLE 20 MG CAPSULE.DR GT SCH (05:29)
[2021-07-28 07:51] VITALS: BP 130/64
[2021-07-28] MEDS: FERROUS SULFATE - FOR SA ONLY 330 MG/7.5 ML UDC GT SCH (08:49)
[2021-07-28] MEDS: ACIDOPHILUS/BULGARICUS 1 EACH TAB.CHEW GT SCH ×2 (08:49→17:35)
[2021-07-28] MEDS: ASCORBIC ACID 500 MG TABLET GT SCH (08:49)
[2021-07-28] MEDS: SITAGLIPTIN PHOSPHATE 50 MG TABLET GT SCH (08:49)
[2021-07-28] MEDS: LEVETIRACETAM SOL (5 ML) 100 MG/ML UDC GT SCH ×2 (08:49→21:28)
[2021-07-28] MEDS: DOCUSATE SODIUM LIQ 100 MG/10 ML UDC GT SCH ×2 (08:49→17:35)
[2021-07-28] MEDS: DILTIAZEM HCL 30 MG TABLET GT SCH ×2 (08:49→21:28)
[2021-07-28] MEDS: ZINC SULFATE 220 MG CAPSULE GT SCH (08:49)
[2021-07-28] MEDS: MULTIVIT W/MINERALS 1 TAB TABLET GT SCH (08:49)
[2021-07-28] MEDS: LISINOPRIL (5MG) 5 MG TABLET GT SCH (08:49)
[2021-07-28] MEDS: VITAMINS A AND D 56.7 GM TUBE TP SCH ×4 (08:50→21:28)
[2021-07-28] MEDS: HYDROGEN PEROXIDE 480 ML BOTTLE TP SCH ×2 (09:12→20:08)
[2021-07-28 12:43] VITALS: BP 128/70
[2021-07-28 20:11] VITALS: BP 111/55
[2021-07-28] MEDS: ATORVASTATIN 10 MG TABLET GT SCH (21:28)
[2021-07-28] MEDS: POLYETHYLENE GLYCOL 3350 17 GM POWD.PACK GT SCH (21:28)
[2021-07-28] MEDS: INSULIN GLARGINE,BASAGLAR 100 UNIT/ML INSULN.PEN SQ SCH (21:29)
[2021-07-28] MEDS: ENOXAPARIN SODIUM 40 MG/0.4 ML DISP.SYRIN SQ SCH (21:29)
[2021-07-28] MEDS: INSULIN ASPART/LISPRO 100 UNIT/ML CARTRIDGE SQ PRN (23:39)
[2021-07-29 00:55] VITALS: BP 114/59
[2021-07-29] MEDS: IPRATROPIUM NEB FS 0.5 MG/2.5 ML AMPUL.NEB NEB SCH ×4 (01:52→20:25)
[2021-07-29] MEDS: ALBUTEROL FS 2.5 MG/0.5 ML VIAL.NEB NEB SCH ×4 (01:52→20:25)
[2021-07-29] MEDS: OMEPRAZOLE 20 MG CAPSULE.DR GT SCH (05:26)
[2021-07-29] MEDS: INSULIN ASPART/LISPRO 100 UNIT/ML CARTRIDGE SQ PRN ×4 (05:26→23:09)
[2021-07-29] MEDS: BLOOD SUGAR DIAGNOSTIC 1 EACH STRIP IN SCH ×4 (05:26→23:09)
[2021-07-29] MEDS: POLYVINYL ALCOHOL 15 ML BOTTLE EACHEYE SCH ×4 (05:26→23:09)
[2021-07-29] MEDS: GLUCERNA 1.2 1,000 ML BOTTLE GT PRN (05:27)
[2021-07-29 07:55] VITALS: BP 110/63
[2021-07-29] MEDS: HYDROGEN PEROXIDE 480 ML BOTTLE TP SCH ×2 (08:33→20:26)
[2021-07-29] MEDS: LEVETIRACETAM SOL (5 ML) 100 MG/ML UDC GT SCH ×2 (09:27→21:04)
[2021-07-29] MEDS: ACIDOPHILUS/BULGARICUS 1 EACH TAB.CHEW GT SCH ×2 (09:27→17:13)
[2021-07-29] MEDS: MULTIVIT W/MINERALS 1 TAB TABLET GT SCH (09:27)
[2021-07-29] MEDS: DOCUSATE SODIUM LIQ 100 MG/10 ML UDC GT SCH ×2 (09:27→17:13)
[2021-07-29] MEDS: DILTIAZEM HCL 30 MG TABLET GT SCH ×2 (09:27→21:04)
[2021-07-29] MEDS: ZINC SULFATE 220 MG CAPSULE GT SCH (09:27)
[2021-07-29] MEDS: VITAMINS A AND D 56.7 GM TUBE TP SCH ×4 (09:27→21:04)
[2021-07-29] MEDS: SITAGLIPTIN PHOSPHATE 50 MG TABLET GT SCH (09:27)
[2021-07-29] MEDS: ASCORBIC ACID 500 MG TABLET GT SCH (09:27)
[2021-07-29] MEDS: FERROUS SULFATE - FOR SA ONLY 330 MG/7.5 ML UDC GT SCH (09:27)
[2021-07-29] MEDS: LISINOPRIL (5MG) 5 MG TABLET GT SCH (09:27)
[2021-07-29 12:05] VITALS: BP 118/66
[2021-07-29 20:30] VITALS: BP 114/67
[2021-07-29] MEDS: POLYETHYLENE GLYCOL 3350 17 GM POWD.PACK GT SCH (21:04)
[2021-07-29] MEDS: ATORVASTATIN 10 MG TABLET GT SCH (21:04)
[2021-07-29] MEDS: ENOXAPARIN SODIUM 40 MG/0.4 ML DISP.SYRIN SQ SCH (21:06)
[2021-07-29] MEDS: INSULIN GLARGINE,BASAGLAR 100 UNIT/ML INSULN.PEN SQ SCH (21:06)
[2021-07-30 01:27] VITALS: BP 125/74
[2021-07-30] MEDS: IPRATROPIUM NEB FS 0.5 MG/2.5 ML AMPUL.NEB NEB SCH ×4 (01:50→20:15)
[2021-07-30] MEDS: ALBUTEROL FS 2.5 MG/0.5 ML VIAL.NEB NEB SCH ×4 (01:50→20:15)
[2021-07-30] MEDS: OMEPRAZOLE 20 MG CAPSULE.DR GT SCH (05:13)
[2021-07-30] MEDS: GLUCERNA 1.2 1,000 ML BOTTLE GT PRN (05:13)
[2021-07-30] MEDS: POLYVINYL ALCOHOL 15 ML BOTTLE EACHEYE SCH ×4 (05:13→23:09)
[2021-07-30] MEDS: INSULIN ASPART/LISPRO 100 UNIT/ML CARTRIDGE SQ PRN ×4 (05:13→23:09)
[2021-07-30] MEDS: BLOOD SUGAR DIAGNOSTIC 1 EACH STRIP IN SCH ×4 (05:13→23:09)
[2021-07-30 07:17] VITALS: BP 138/70
[2021-07-30] MEDS: DILTIAZEM HCL 30 MG TABLET GT SCH ×2 (08:10→20:01)
[2021-07-30] MEDS: SITAGLIPTIN PHOSPHATE 50 MG TABLET GT SCH (08:10)
[2021-07-30] MEDS: FERROUS SULFATE - FOR SA ONLY 330 MG/7.5 ML UDC GT SCH (08:10)
[2021-07-30] MEDS: LISINOPRIL (5MG) 5 MG TABLET GT SCH (08:10)
[2021-07-30] MEDS: MULTIVIT W/MINERALS 1 TAB TABLET GT SCH (08:10)
[2021-07-30] MEDS: LEVETIRACETAM SOL (5 ML) 100 MG/ML UDC GT SCH ×2 (08:10→20:01)
[2021-07-30] MEDS: ACIDOPHILUS/BULGARICUS 1 EACH TAB.CHEW GT SCH ×2 (08:10→17:17)
[2021-07-30] MEDS: DOCUSATE SODIUM LIQ 100 MG/10 ML UDC GT SCH ×2 (08:10→17:17)
[2021-07-30] MEDS: VITAMINS A AND D 56.7 GM TUBE TP SCH ×4 (08:11→20:01)
[2021-07-30] MEDS: ASCORBIC ACID 500 MG TABLET GT SCH (08:11)
[2021-07-30] MEDS: ZINC SULFATE 220 MG CAPSULE GT SCH (08:11)
[2021-07-30] MEDS: HYDROGEN PEROXIDE 480 ML BOTTLE TP SCH ×2 (09:59→20:15)
[2021-07-30 12:13] VITALS: BP 128/76
[2021-07-30 20:05] VITALS: BP 109/61
[2021-07-30] MEDS: POLYETHYLENE GLYCOL 3350 17 GM POWD.PACK GT SCH (21:01)
[2021-07-30] MEDS: ATORVASTATIN 10 MG TABLET GT SCH (21:01)
[2021-07-30] MEDS: INSULIN GLARGINE,BASAGLAR 100 UNIT/ML INSULN.PEN SQ SCH (21:01)
[2021-07-30] MEDS: ENOXAPARIN SODIUM 40 MG/0.4 ML DISP.SYRIN SQ SCH (21:01)
[2021-07-31 01:21] VITALS: BP 128/60
[2021-07-31] MEDS: IPRATROPIUM NEB FS 0.5 MG/2.5 ML AMPUL.NEB NEB SCH ×4 (01:57→18:49)
[2021-07-31] MEDS: ALBUTEROL FS 2.5 MG/0.5 ML VIAL.NEB NEB SCH ×4 (01:57→18:49)
[2021-07-31] MEDS: OMEPRAZOLE 20 MG CAPSULE.DR GT SCH (05:28)
[2021-07-31] MEDS: POLYVINYL ALCOHOL 15 ML BOTTLE EACHEYE SCH ×4 (05:28→23:16)
[2021-07-31] MEDS: BLOOD SUGAR DIAGNOSTIC 1 EACH STRIP IN SCH ×4 (05:28→23:16)
[2021-07-31 07:26] VITALS: BP 111/63
[2021-07-31] MEDS: HYDROGEN PEROXIDE 480 ML BOTTLE TP SCH ×2 (07:45→20:38)
[2021-07-31] MEDS: DILTIAZEM HCL 30 MG TABLET GT SCH ×2 (08:30→20:42)
[2021-07-31] MEDS: VITAMINS A AND D 56.7 GM TUBE TP SCH ×4 (08:33→20:43)
[2021-07-31] MEDS: LISINOPRIL (5MG) 5 MG TABLET GT SCH (08:33)
[2021-07-31] MEDS: DOCUSATE SODIUM LIQ 100 MG/10 ML UDC GT SCH ×2 (08:33→16:20)
[2021-07-31] MEDS: ZINC SULFATE 220 MG CAPSULE GT SCH (08:33)
[2021-07-31] MEDS: FERROUS SULFATE - FOR SA ONLY 330 MG/7.5 ML UDC GT SCH (08:33)
[2021-07-31] MEDS: ASCORBIC ACID 500 MG TABLET GT SCH (08:33)
[2021-07-31] MEDS: SITAGLIPTIN PHOSPHATE 50 MG TABLET GT SCH (08:33)
[2021-07-31] MEDS: MULTIVIT W/MINERALS 1 TAB TABLET GT SCH (08:33)
[2021-07-31] MEDS: ACIDOPHILUS/BULGARICUS 1 EACH TAB.CHEW GT SCH ×2 (08:33→16:20)
[2021-07-31] MEDS: LEVETIRACETAM SOL (5 ML) 100 MG/ML UDC GT SCH ×2 (08:34→20:43)
[2021-07-31] MEDS: INSULIN ASPART/LISPRO 100 UNIT/ML CARTRIDGE SQ PRN ×3 (11:15→23:16)
[2021-07-31] MEDS: GLUCERNA 1.2 1,000 ML BOTTLE GT PRN (14:26)
[2021-07-31 15:38] VITALS: BP 149/64
[2021-07-31 20:27] VITALS: BP 106/71
[2021-07-31] MEDS: POLYETHYLENE GLYCOL 3350 17 GM POWD.PACK GT SCH (21:01)
[2021-07-31] MEDS: INSULIN GLARGINE,BASAGLAR 100 UNIT/ML INSULN.PEN SQ SCH (21:01)
[2021-07-31] MEDS: ATORVASTATIN 10 MG TABLET GT SCH (21:01)
[2021-07-31] MEDS: ENOXAPARIN SODIUM 40 MG/0.4 ML DISP.SYRIN SQ SCH (21:01)
[2021-08-01] MEDS: ALBUTEROL FS 2.5 MG/0.5 ML VIAL.NEB NEB SCH ×4 (00:42→20:02)
[2021-08-01] MEDS: IPRATROPIUM NEB FS 0.5 MG/2.5 ML AMPUL.NEB NEB SCH ×4 (00:42→20:02)
[2021-08-01 01:09] VITALS: BP 115/70
[2021-08-01] MEDS: OMEPRAZOLE 20 MG CAPSULE.DR GT SCH (05:27)
[2021-08-01] MEDS: BLOOD SUGAR DIAGNOSTIC 1 EACH STRIP IN SCH ×4 (05:27→23:35)
[2021-08-01] MEDS: POLYVINYL ALCOHOL 15 ML BOTTLE EACHEYE SCH ×4 (05:27→23:35)
[2021-08-01] MEDS: INSULIN ASPART/LISPRO 100 UNIT/ML CARTRIDGE SQ PRN ×4 (05:27→23:36)
[2021-08-01 07:19] VITALS: BP 146/81
[2021-08-01] MEDS: LEVETIRACETAM SOL (5 ML) 100 MG/ML UDC GT SCH ×2 (09:02→21:07)
[2021-08-01] MEDS: FERROUS SULFATE - FOR SA ONLY 330 MG/7.5 ML UDC GT SCH (09:02)
[2021-08-01] MEDS: DILTIAZEM HCL 30 MG TABLET GT SCH ×2 (09:02→21:00)
[2021-08-01] MEDS: SITAGLIPTIN PHOSPHATE 50 MG TABLET GT SCH (09:02)
[2021-08-01] MEDS: DOCUSATE SODIUM LIQ 100 MG/10 ML UDC GT SCH ×2 (09:02→17:57)
[2021-08-01] MEDS: ACIDOPHILUS/BULGARICUS 1 EACH TAB.CHEW GT SCH ×2 (09:02→17:57)
[2021-08-01] MEDS: ASCORBIC ACID 500 MG TABLET GT SCH (09:03)
[2021-08-01] MEDS: VITAMINS A AND D 56.7 GM TUBE TP SCH ×4 (09:03→21:07)
[2021-08-01] MEDS: MULTIVIT W/MINERALS 1 TAB TABLET GT SCH (09:03)
[2021-08-01] MEDS: ZINC SULFATE 220 MG CAPSULE GT SCH (09:03)
[2021-08-01] MEDS: LISINOPRIL (5MG) 5 MG TABLET GT SCH (09:03)
[2021-08-01] MEDS: HYDROGEN PEROXIDE 480 ML BOTTLE TP SCH ×2 (09:17→21:15)
[2021-08-01 13:21] VITALS: BP 135/71
[2021-08-01 20:17] VITALS: BP 105/62
[2021-08-01] MEDS: ATORVASTATIN 10 MG TABLET GT SCH (21:07)
[2021-08-01] MEDS: POLYETHYLENE GLYCOL 3350 17 GM POWD.PACK GT SCH (21:07)
[2021-08-01] MEDS: ENOXAPARIN SODIUM 40 MG/0.4 ML DISP.SYRIN SQ SCH (21:08)
[2021-08-01] MEDS: INSULIN GLARGINE,BASAGLAR 100 UNIT/ML INSULN.PEN SQ SCH (21:30)
[2021-08-02 01:25] VITALS: BP 126/73
[2021-08-02] MEDS: ALBUTEROL FS 2.5 MG/0.5 ML VIAL.NEB NEB SCH ×4 (01:40→20:13)
[2021-08-02] MEDS: IPRATROPIUM NEB FS 0.5 MG/2.5 ML AMPUL.NEB NEB SCH ×4 (01:40→20:13)
[2021-08-02] MEDS: BLOOD SUGAR DIAGNOSTIC 1 EACH STRIP IN SCH ×4 (05:38→23:23)
[2021-08-02] MEDS: POLYVINYL ALCOHOL 15 ML BOTTLE EACHEYE SCH ×4 (05:38→23:23)
[2021-08-02] MEDS: INSULIN ASPART/LISPRO 100 UNIT/ML CARTRIDGE SQ PRN ×4 (05:38→23:23)
[2021-08-02] MEDS: OMEPRAZOLE 20 MG CAPSULE.DR GT SCH (05:38)
[2021-08-02 07:19] VITALS: BP 116/67
[2021-08-02] MEDS: HYDROGEN PEROXIDE 480 ML BOTTLE TP SCH ×2 (09:00→21:07)
[2021-08-02] MEDS: DILTIAZEM HCL 30 MG TABLET GT SCH ×2 (09:23→20:50)
[2021-08-02] MEDS: SITAGLIPTIN PHOSPHATE 50 MG TABLET GT SCH (09:23)
[2021-08-02] MEDS: ASCORBIC ACID 500 MG TABLET GT SCH (09:23)
[2021-08-02] MEDS: ZINC SULFATE 220 MG CAPSULE GT SCH (09:23)
[2021-08-02] MEDS: FERROUS SULFATE - FOR SA ONLY 330 MG/7.5 ML UDC GT SCH (09:23)
[2021-08-02] MEDS: MULTIVIT W/MINERALS 1 TAB TABLET GT SCH (09:23)
[2021-08-02] MEDS: LISINOPRIL (5MG) 5 MG TABLET GT SCH (09:23)
[2021-08-02] MEDS: LEVETIRACETAM SOL (5 ML) 100 MG/ML UDC GT SCH ×2 (09:23→20:50)
[2021-08-02] MEDS: DOCUSATE SODIUM LIQ 100 MG/10 ML UDC GT SCH ×2 (09:23→16:26)
[2021-08-02] MEDS: ACIDOPHILUS/BULGARICUS 1 EACH TAB.CHEW GT SCH ×2 (09:23→16:27)
[2021-08-02] MEDS: VITAMINS A AND D 56.7 GM TUBE TP SCH ×4 (09:24→20:50)
[2021-08-02 13:35] VITALS: BP 121/70
[2021-08-02 20:28] VITALS: BP 98/61
[2021-08-02] MEDS: ATORVASTATIN 10 MG TABLET GT SCH (22:02)
[2021-08-02] MEDS: POLYETHYLENE GLYCOL 3350 17 GM POWD.PACK GT SCH (22:02)
[2021-08-02] MEDS: ENOXAPARIN SODIUM 40 MG/0.4 ML DISP.SYRIN SQ SCH (22:03)
[2021-08-02] MEDS: INSULIN GLARGINE,BASAGLAR 100 UNIT/ML INSULN.PEN SQ SCH (22:03)
[2021-08-03] MEDS: IPRATROPIUM NEB FS 0.5 MG/2.5 ML AMPUL.NEB NEB SCH ×4 (01:42→20:20)
[2021-08-03] MEDS: ALBUTEROL FS 2.5 MG/0.5 ML VIAL.NEB NEB SCH ×4 (01:42→20:20)
[2021-08-03] MEDS: OMEPRAZOLE 20 MG CAPSULE.DR GT SCH (05:25)
[2021-08-03] MEDS: BLOOD SUGAR DIAGNOSTIC 1 EACH STRIP IN SCH ×4 (05:25→23:40)
[2021-08-03] MEDS: POLYVINYL ALCOHOL 15 ML BOTTLE EACHEYE SCH ×4 (05:25→23:40)
[2021-08-03] MEDS: INSULIN ASPART/LISPRO 100 UNIT/ML CARTRIDGE SQ PRN ×4 (05:26→23:42)
[2021-08-03 07:21] VITALS: BP 138/78
[2021-08-03] MEDS: HYDROGEN PEROXIDE 480 ML BOTTLE TP SCH ×2 (08:42→20:20)
--- NOTE | 2021-08-03 09:32 | NUR ---
Seen and examined by Dr. Capone no new order given.
[2021-08-03] MEDS: SITAGLIPTIN PHOSPHATE 50 MG TABLET GT SCH (09:41)
[2021-08-03] MEDS: VITAMINS A AND D 56.7 GM TUBE TP SCH ×4 (09:41→20:49)
[2021-08-03] MEDS: ACIDOPHILUS/BULGARICUS 1 EACH TAB.CHEW GT SCH ×2 (09:41→16:39)
[2021-08-03] MEDS: FERROUS SULFATE - FOR SA ONLY 330 MG/7.5 ML UDC GT SCH (09:41)
[2021-08-03] MEDS: MULTIVIT W/MINERALS 1 TAB TABLET GT SCH (09:41)
[2021-08-03] MEDS: DILTIAZEM HCL 30 MG TABLET GT SCH ×2 (09:41→20:49)
[2021-08-03] MEDS: LISINOPRIL (5MG) 5 MG TABLET GT SCH (09:41)
[2021-08-03] MEDS: ZINC SULFATE 220 MG CAPSULE GT SCH (09:41)
[2021-08-03] MEDS: DOCUSATE SODIUM LIQ 100 MG/10 ML UDC GT SCH ×2 (09:41→16:39)
[2021-08-03] MEDS: LEVETIRACETAM SOL (5 ML) 100 MG/ML UDC GT SCH ×2 (09:41→20:49)
[2021-08-03] MEDS: ASCORBIC ACID 500 MG TABLET GT SCH (09:41)
[2021-08-03 12:07] VITALS: BP 146/79
[2021-08-03] MEDS: GLUCERNA 1.2 1,000 ML BOTTLE GT PRN (12:58)
[2021-08-03 20:30] VITALS: BP 122/57
[2021-08-03] MEDS: ATORVASTATIN 10 MG TABLET GT SCH (21:34)
[2021-08-03] MEDS: POLYETHYLENE GLYCOL 3350 17 GM POWD.PACK GT SCH (21:34)
[2021-08-03] MEDS: INSULIN GLARGINE,BASAGLAR 100 UNIT/ML INSULN.PEN SQ SCH (21:35)
[2021-08-03] MEDS: ENOXAPARIN SODIUM 40 MG/0.4 ML DISP.SYRIN SQ SCH (21:36)
[2021-08-04] MEDS: ALBUTEROL FS 2.5 MG/0.5 ML VIAL.NEB NEB SCH ×4 (01:38→20:12)
[2021-08-04] MEDS: IPRATROPIUM NEB FS 0.5 MG/2.5 ML AMPUL.NEB NEB SCH ×4 (01:38→20:12)
[2021-08-04] MEDS: INSULIN ASPART/LISPRO 100 UNIT/ML CARTRIDGE SQ PRN ×4 (05:35→23:15)
[2021-08-04] MEDS: POLYVINYL ALCOHOL 15 ML BOTTLE EACHEYE SCH ×4 (05:35→23:14)
[2021-08-04] MEDS: BLOOD SUGAR DIAGNOSTIC 1 EACH STRIP IN SCH ×4 (05:35→23:14)
[2021-08-04] MEDS: OMEPRAZOLE 20 MG CAPSULE.DR GT SCH (05:35)
[2021-08-04 07:29] VITALS: BP 105/66
[2021-08-04] MEDS: HYDROGEN PEROXIDE 480 ML BOTTLE TP SCH ×2 (08:19→21:31)
[2021-08-04] MEDS: DILTIAZEM HCL 30 MG TABLET GT SCH ×2 (09:00→21:00)
[2021-08-04] MEDS: MULTIVIT W/MINERALS 1 TAB TABLET GT SCH (09:58)
[2021-08-04] MEDS: ASCORBIC ACID 500 MG TABLET GT SCH (09:58)
[2021-08-04] MEDS: ZINC SULFATE 220 MG CAPSULE GT SCH (09:58)
[2021-08-04] MEDS: FERROUS SULFATE - FOR SA ONLY 330 MG/7.5 ML UDC GT SCH (09:58)
[2021-08-04] MEDS: DOCUSATE SODIUM LIQ 100 MG/10 ML UDC GT SCH ×2 (09:58→16:46)
[2021-08-04] MEDS: LEVETIRACETAM SOL (5 ML) 100 MG/ML UDC GT SCH ×2 (09:58→21:44)
[2021-08-04] MEDS: ACIDOPHILUS/BULGARICUS 1 EACH TAB.CHEW GT SCH ×2 (09:58→16:46)
[2021-08-04] MEDS: LISINOPRIL (5MG) 5 MG TABLET GT SCH (09:58)
[2021-08-04] MEDS: SITAGLIPTIN PHOSPHATE 50 MG TABLET GT SCH (09:58)
[2021-08-04] MEDS: VITAMINS A AND D 56.7 GM TUBE TP SCH ×4 (09:59→21:44)
[2021-08-04 11:38] VITALS: BP 126/63
[2021-08-04] MEDS: GLUCERNA 1.2 1,000 ML BOTTLE GT PRN (12:40)
[2021-08-04 19:50] VITALS: BP 105/60
[2021-08-04] MEDS: POLYETHYLENE GLYCOL 3350 17 GM POWD.PACK GT SCH (21:44)
[2021-08-04] MEDS: ATORVASTATIN 10 MG TABLET GT SCH (21:44)
[2021-08-04] MEDS: INSULIN GLARGINE,BASAGLAR 100 UNIT/ML INSULN.PEN SQ SCH (21:45)
[2021-08-04] MEDS: ENOXAPARIN SODIUM 40 MG/0.4 ML DISP.SYRIN SQ SCH (21:46)
[2021-08-05 00:46] VITALS: BP 113/74
[2021-08-05] MEDS: IPRATROPIUM NEB FS 0.5 MG/2.5 ML AMPUL.NEB NEB SCH ×4 (02:23→20:49)
[2021-08-05] MEDS: ALBUTEROL FS 2.5 MG/0.5 ML VIAL.NEB NEB SCH ×4 (02:23→20:49)
[2021-08-05] MEDS: POLYVINYL ALCOHOL 15 ML BOTTLE EACHEYE SCH ×4 (05:32→23:25)
[2021-08-05] MEDS: OMEPRAZOLE 20 MG CAPSULE.DR GT SCH (05:32)
[2021-08-05] MEDS: BLOOD SUGAR DIAGNOSTIC 1 EACH STRIP IN SCH ×4 (05:33→23:26)
[2021-08-05] MEDS: INSULIN ASPART/LISPRO 100 UNIT/ML CARTRIDGE SQ PRN ×4 (05:33→23:26)
[2021-08-05 07:39] VITALS: BP 110/72
[2021-08-05] MEDS: DOCUSATE SODIUM LIQ 100 MG/10 ML UDC GT SCH ×2 (08:29→16:48)
[2021-08-05] MEDS: DILTIAZEM HCL 30 MG TABLET GT SCH ×2 (08:29→21:12)
[2021-08-05] MEDS: FERROUS SULFATE - FOR SA ONLY 330 MG/7.5 ML UDC GT SCH (08:29)
[2021-08-05] MEDS: ACIDOPHILUS/BULGARICUS 1 EACH TAB.CHEW GT SCH ×2 (08:30→16:48)
[2021-08-05] MEDS: SITAGLIPTIN PHOSPHATE 50 MG TABLET GT SCH (08:30)
[2021-08-05] MEDS: LEVETIRACETAM SOL (5 ML) 100 MG/ML UDC GT SCH ×2 (08:30→21:12)
[2021-08-05] MEDS: MULTIVIT W/MINERALS 1 TAB TABLET GT SCH (08:31)
[2021-08-05] MEDS: LISINOPRIL (5MG) 5 MG TABLET GT SCH (08:31)
[2021-08-05] MEDS: ASCORBIC ACID 500 MG TABLET GT SCH (08:32)
[2021-08-05] MEDS: ZINC SULFATE 220 MG CAPSULE GT SCH (08:32)
[2021-08-05] MEDS: VITAMINS A AND D 56.7 GM TUBE TP SCH ×4 (08:32→21:12)
[2021-08-05] MEDS: HYDROGEN PEROXIDE 480 ML BOTTLE TP SCH ×2 (09:03→20:49)
[2021-08-05 13:03] VITALS: BP 129/76
[2021-08-05] MEDS: GLUCERNA 1.2 1,000 ML BOTTLE GT PRN (13:57)
[2021-08-05 20:08] VITALS: BP 111/68
[2021-08-05] MEDS: ATORVASTATIN 10 MG TABLET GT SCH (21:13)
[2021-08-05] MEDS: POLYETHYLENE GLYCOL 3350 17 GM POWD.PACK GT SCH (21:13)
[2021-08-05] MEDS: INSULIN GLARGINE,BASAGLAR 100 UNIT/ML INSULN.PEN SQ SCH (21:14)
[2021-08-05] MEDS: ENOXAPARIN SODIUM 40 MG/0.4 ML DISP.SYRIN SQ SCH (21:15)
[2021-08-06] MEDS: IPRATROPIUM NEB FS 0.5 MG/2.5 ML AMPUL.NEB NEB SCH ×4 (01:59→20:24)
[2021-08-06] MEDS: ALBUTEROL FS 2.5 MG/0.5 ML VIAL.NEB NEB SCH ×4 (01:59→20:24)
[2021-08-06] MEDS: POLYVINYL ALCOHOL 15 ML BOTTLE EACHEYE SCH ×4 (05:16→23:21)
[2021-08-06] MEDS: BLOOD SUGAR DIAGNOSTIC 1 EACH STRIP IN SCH ×4 (05:17→23:21)
[2021-08-06] MEDS: OMEPRAZOLE 20 MG CAPSULE.DR GT SCH (05:17)
[2021-08-06] MEDS: INSULIN ASPART/LISPRO 100 UNIT/ML CARTRIDGE SQ PRN ×4 (05:17→23:23)
[2021-08-06 07:39] VITALS: BP 118/71
[2021-08-06] MEDS: HYDROGEN PEROXIDE 480 ML BOTTLE TP SCH ×2 (09:16→20:25)
[2021-08-06] MEDS: DILTIAZEM HCL 30 MG TABLET GT SCH ×2 (09:45→21:00)
[2021-08-06] MEDS: DOCUSATE SODIUM LIQ 100 MG/10 ML UDC GT SCH ×2 (09:46→16:49)
[2021-08-06] MEDS: SITAGLIPTIN PHOSPHATE 50 MG TABLET GT SCH (09:46)
[2021-08-06] MEDS: FERROUS SULFATE - FOR SA ONLY 330 MG/7.5 ML UDC GT SCH (09:46)
[2021-08-06] MEDS: ACIDOPHILUS/BULGARICUS 1 EACH TAB.CHEW GT SCH ×2 (09:48→16:49)
[2021-08-06] MEDS: LISINOPRIL (5MG) 5 MG TABLET GT SCH (09:48)
[2021-08-06] MEDS: LEVETIRACETAM SOL (5 ML) 100 MG/ML UDC GT SCH ×2 (09:48→21:20)
[2021-08-06] MEDS: MULTIVIT W/MINERALS 1 TAB TABLET GT SCH (09:48)
[2021-08-06] MEDS: ASCORBIC ACID 500 MG TABLET GT SCH (09:49)
[2021-08-06] MEDS: ZINC SULFATE 220 MG CAPSULE GT SCH (09:49)
[2021-08-06] MEDS: VITAMINS A AND D 56.7 GM TUBE TP SCH ×4 (09:49→21:20)
[2021-08-06 11:22] VITALS: BP 131/76
[2021-08-06 19:08] VITALS: BP 106/73
[2021-08-06] MEDS: POLYETHYLENE GLYCOL 3350 17 GM POWD.PACK GT SCH (21:20)
[2021-08-06] MEDS: ATORVASTATIN 10 MG TABLET GT SCH (21:20)
[2021-08-06] MEDS: ENOXAPARIN SODIUM 40 MG/0.4 ML DISP.SYRIN SQ SCH (21:21)
[2021-08-06] MEDS: INSULIN GLARGINE,BASAGLAR 100 UNIT/ML INSULN.PEN SQ SCH (21:36)
[2021-08-07 00:31] VITALS: BP 107/76
[2021-08-07] MEDS: IPRATROPIUM NEB FS 0.5 MG/2.5 ML AMPUL.NEB NEB SCH ×4 (02:20→20:24)
[2021-08-07] MEDS: ALBUTEROL FS 2.5 MG/0.5 ML VIAL.NEB NEB SCH ×4 (02:21→20:24)
[2021-08-07] MEDS: OMEPRAZOLE 20 MG CAPSULE.DR GT SCH (05:20)
[2021-08-07] MEDS: POLYVINYL ALCOHOL 15 ML BOTTLE EACHEYE SCH ×4 (05:20→23:24)
[2021-08-07] MEDS: BLOOD SUGAR DIAGNOSTIC 1 EACH STRIP IN SCH ×4 (05:20→23:24)
[2021-08-07] MEDS: GLUCERNA 1.2 1,000 ML BOTTLE GT PRN (05:21)
[2021-08-07] MEDS: INSULIN ASPART/LISPRO 100 UNIT/ML CARTRIDGE SQ PRN ×4 (05:21→23:24)
[2021-08-07 08:04] VITALS: BP 119/54
[2021-08-07] MEDS: ACIDOPHILUS/BULGARICUS 1 EACH TAB.CHEW GT SCH ×2 (08:33→16:08)
[2021-08-07] MEDS: SITAGLIPTIN PHOSPHATE 50 MG TABLET GT SCH (08:33)
[2021-08-07] MEDS: FERROUS SULFATE - FOR SA ONLY 330 MG/7.5 ML UDC GT SCH (08:33)
[2021-08-07] MEDS: DILTIAZEM HCL 30 MG TABLET GT SCH ×2 (08:33→21:10)
[2021-08-07] MEDS: DOCUSATE SODIUM LIQ 100 MG/10 ML UDC GT SCH ×2 (08:33→16:08)
[2021-08-07] MEDS: LEVETIRACETAM SOL (5 ML) 100 MG/ML UDC GT SCH ×2 (08:33→21:11)
[2021-08-07] MEDS: MULTIVIT W/MINERALS 1 TAB TABLET GT SCH (08:34)
[2021-08-07] MEDS: ZINC SULFATE 220 MG CAPSULE GT SCH (08:34)
[2021-08-07] MEDS: VITAMINS A AND D 56.7 GM TUBE TP SCH ×4 (08:34→21:11)
[2021-08-07] MEDS: ASCORBIC ACID 500 MG TABLET GT SCH (08:34)
[2021-08-07] MEDS: LISINOPRIL (5MG) 5 MG TABLET GT SCH (08:34)
[2021-08-07] MEDS: HYDROGEN PEROXIDE 480 ML BOTTLE TP SCH ×2 (09:17→20:24)
[2021-08-07 12:21] VITALS: BP 123/58
[2021-08-07 19:09] VITALS: BP 120/75
[2021-08-07] MEDS: POLYETHYLENE GLYCOL 3350 17 GM POWD.PACK GT SCH (21:11)
[2021-08-07] MEDS: ENOXAPARIN SODIUM 40 MG/0.4 ML DISP.SYRIN SQ SCH (21:11)
[2021-08-07] MEDS: ATORVASTATIN 10 MG TABLET GT SCH (21:11)
[2021-08-07] MEDS: INSULIN GLARGINE,BASAGLAR 100 UNIT/ML INSULN.PEN SQ SCH (21:34)
[2021-08-08 00:11] VITALS: BP 107/69
[2021-08-08] MEDS: ALBUTEROL FS 2.5 MG/0.5 ML VIAL.NEB NEB SCH ×4 (02:14→19:53)
[2021-08-08] MEDS: IPRATROPIUM NEB FS 0.5 MG/2.5 ML AMPUL.NEB NEB SCH ×4 (02:14→19:53)
[2021-08-08] MEDS: BLOOD SUGAR DIAGNOSTIC 1 EACH STRIP IN SCH ×4 (05:23→23:43)
[2021-08-08] MEDS: OMEPRAZOLE 20 MG CAPSULE.DR GT SCH (05:23)
[2021-08-08] MEDS: POLYVINYL ALCOHOL 15 ML BOTTLE EACHEYE SCH ×4 (05:23→23:43)
[2021-08-08] MEDS: INSULIN ASPART/LISPRO 100 UNIT/ML CARTRIDGE SQ PRN ×4 (05:23→23:43)
[2021-08-08 08:02] VITALS: BP 130/65
[2021-08-08] MEDS: HYDROGEN PEROXIDE 480 ML BOTTLE TP SCH ×2 (09:00→21:19)
[2021-08-08] MEDS: DILTIAZEM HCL 30 MG TABLET GT SCH ×2 (09:51→20:44)
[2021-08-08] MEDS: ASCORBIC ACID 500 MG TABLET GT SCH (09:51)
[2021-08-08] MEDS: SITAGLIPTIN PHOSPHATE 50 MG TABLET GT SCH (09:51)
[2021-08-08] MEDS: DOCUSATE SODIUM LIQ 100 MG/10 ML UDC GT SCH ×2 (09:51→16:42)
[2021-08-08] MEDS: ZINC SULFATE 220 MG CAPSULE GT SCH (09:51)
[2021-08-08] MEDS: MULTIVIT W/MINERALS 1 TAB TABLET GT SCH (09:51)
[2021-08-08] MEDS: FERROUS SULFATE - FOR SA ONLY 330 MG/7.5 ML UDC GT SCH (09:51)
[2021-08-08] MEDS: LISINOPRIL (5MG) 5 MG TABLET GT SCH (09:51)
[2021-08-08] MEDS: ACIDOPHILUS/BULGARICUS 1 EACH TAB.CHEW GT SCH ×2 (09:51→16:42)
[2021-08-08] MEDS: VITAMINS A AND D 56.7 GM TUBE TP SCH ×4 (09:51→20:44)
[2021-08-08] MEDS: LEVETIRACETAM SOL (5 ML) 100 MG/ML UDC GT SCH ×2 (09:51→20:44)
[2021-08-08] MEDS: GLUCERNA 1.2 1,000 ML BOTTLE GT PRN (10:18)
[2021-08-08 12:36] VITALS: BP 125/67
[2021-08-08 20:20] VITALS: BP 108/70
[2021-08-08] MEDS: POLYETHYLENE GLYCOL 3350 17 GM POWD.PACK GT SCH (22:33)
[2021-08-08] MEDS: ATORVASTATIN 10 MG TABLET GT SCH (22:33)
[2021-08-08] MEDS: INSULIN GLARGINE,BASAGLAR 100 UNIT/ML INSULN.PEN SQ SCH (22:34)
[2021-08-08] MEDS: ENOXAPARIN SODIUM 40 MG/0.4 ML DISP.SYRIN SQ SCH (22:35)
[2021-08-09] MEDS: IPRATROPIUM NEB FS 0.5 MG/2.5 ML AMPUL.NEB NEB SCH ×4 (01:54→20:09)
[2021-08-09] MEDS: ALBUTEROL FS 2.5 MG/0.5 ML VIAL.NEB NEB SCH ×4 (01:54→20:09)
[2021-08-09 02:19] VITALS: BP 116/69
[2021-08-09] MEDS: INSULIN ASPART/LISPRO 100 UNIT/ML CARTRIDGE SQ PRN ×3 (05:33→18:24)
[2021-08-09] MEDS: OMEPRAZOLE 20 MG CAPSULE.DR GT SCH (05:33)
[2021-08-09] MEDS: POLYVINYL ALCOHOL 15 ML BOTTLE EACHEYE SCH ×4 (05:33→23:52)
[2021-08-09] MEDS: BLOOD SUGAR DIAGNOSTIC 1 EACH STRIP IN SCH ×3 (05:33→18:21)
[2021-08-09 07:18] VITALS: BP 147/61
[2021-08-09] MEDS: SITAGLIPTIN PHOSPHATE 50 MG TABLET GT SCH (08:53)
[2021-08-09] MEDS: DILTIAZEM HCL 30 MG TABLET GT SCH ×2 (08:53→21:08)
[2021-08-09] MEDS: DOCUSATE SODIUM LIQ 100 MG/10 ML UDC GT SCH ×2 (08:53→16:56)
[2021-08-09] MEDS: LEVETIRACETAM SOL (5 ML) 100 MG/ML UDC GT SCH ×2 (08:53→21:08)
[2021-08-09] MEDS: FERROUS SULFATE - FOR SA ONLY 330 MG/7.5 ML UDC GT SCH (08:53)
[2021-08-09] MEDS: ACIDOPHILUS/BULGARICUS 1 EACH TAB.CHEW GT SCH ×2 (08:54→16:56)
[2021-08-09] MEDS: VITAMINS A AND D 56.7 GM TUBE TP SCH ×4 (08:55→21:09)
[2021-08-09] MEDS: ASCORBIC ACID 500 MG TABLET GT SCH (08:55)
[2021-08-09] MEDS: ZINC SULFATE 220 MG CAPSULE GT SCH (08:55)
[2021-08-09] MEDS: MULTIVIT W/MINERALS 1 TAB TABLET GT SCH (08:55)
[2021-08-09] MEDS: LISINOPRIL (5MG) 5 MG TABLET GT SCH (08:55)
[2021-08-09] MEDS: HYDROGEN PEROXIDE 480 ML BOTTLE TP SCH ×2 (09:00→21:13)
[2021-08-09 13:00] VITALS: BP 129/65
[2021-08-09] MEDS: GLUCERNA 1.2 1,000 ML BOTTLE GT PRN (18:22)
[2021-08-09 20:00] VITALS: BP 119/72
[2021-08-09] MEDS: POLYETHYLENE GLYCOL 3350 17 GM POWD.PACK GT SCH (21:09)
[2021-08-09] MEDS: ATORVASTATIN 10 MG TABLET GT SCH (21:09)
[2021-08-09] MEDS: INSULIN GLARGINE,BASAGLAR 100 UNIT/ML INSULN.PEN SQ SCH (22:00)
[2021-08-09] MEDS: ENOXAPARIN SODIUM 40 MG/0.4 ML DISP.SYRIN SQ SCH (22:00)
[2021-08-10] MEDS: ALBUTEROL FS 2.5 MG/0.5 ML VIAL.NEB NEB SCH ×4 (02:07→20:04)
[2021-08-10] MEDS: IPRATROPIUM NEB FS 0.5 MG/2.5 ML AMPUL.NEB NEB SCH ×4 (02:07→20:04)
[2021-08-10] MEDS: POLYVINYL ALCOHOL 15 ML BOTTLE EACHEYE SCH ×3 (05:52→17:33)
[2021-08-10] MEDS: OMEPRAZOLE 20 MG CAPSULE.DR GT SCH (05:52)
[2021-08-10] MEDS: BLOOD SUGAR DIAGNOSTIC 1 EACH STRIP IN SCH ×4 (05:52→17:34)
[2021-08-10 07:27] VITALS: BP 94/48
[2021-08-10] MEDS: HYDROGEN PEROXIDE 480 ML BOTTLE TP SCH ×2 (08:34→20:10)
[2021-08-10] MEDS: DILTIAZEM HCL 30 MG TABLET GT SCH ×2 (08:46→20:09)
[2021-08-10] MEDS: MULTIVIT W/MINERALS 1 TAB TABLET GT SCH (08:47)
[2021-08-10] MEDS: LISINOPRIL (5MG) 5 MG TABLET GT SCH (08:47)
[2021-08-10] MEDS: LEVETIRACETAM SOL (5 ML) 100 MG/ML UDC GT SCH ×2 (08:47→20:10)
[2021-08-10] MEDS: ACIDOPHILUS/BULGARICUS 1 EACH TAB.CHEW GT SCH ×2 (08:47→17:33)
[2021-08-10] MEDS: DOCUSATE SODIUM LIQ 100 MG/10 ML UDC GT SCH ×2 (08:47→17:33)
[2021-08-10] MEDS: SITAGLIPTIN PHOSPHATE 50 MG TABLET GT SCH (08:47)
[2021-08-10] MEDS: FERROUS SULFATE - FOR SA ONLY 330 MG/7.5 ML UDC GT SCH (08:47)
[2021-08-10] MEDS: VITAMINS A AND D 56.7 GM TUBE TP SCH ×4 (08:48→20:10)
[2021-08-10] MEDS: ZINC SULFATE 220 MG CAPSULE GT SCH (08:48)
[2021-08-10] MEDS: ASCORBIC ACID 500 MG TABLET GT SCH (08:48)
[2021-08-10] MEDS: INSULIN ASPART/LISPRO 100 UNIT/ML CARTRIDGE SQ PRN ×2 (11:58→17:36)
[2021-08-10 16:11] VITALS: BP 133/83
[2021-08-10 20:00] VITALS: BP 115/63
[2021-08-10] MEDS: ATORVASTATIN 10 MG TABLET GT SCH (21:24)
[2021-08-10] MEDS: POLYETHYLENE GLYCOL 3350 17 GM POWD.PACK GT SCH (21:24)
[2021-08-10] MEDS: INSULIN GLARGINE,BASAGLAR 100 UNIT/ML INSULN.PEN SQ SCH (21:25)
[2021-08-10] MEDS: ENOXAPARIN SODIUM 40 MG/0.4 ML DISP.SYRIN SQ SCH (21:27)
[2021-08-11] MEDS: POLYVINYL ALCOHOL 15 ML BOTTLE EACHEYE SCH ×5 (00:13→23:16)
[2021-08-11] MEDS: BLOOD SUGAR DIAGNOSTIC 1 EACH STRIP IN SCH ×5 (00:13→23:16)
[2021-08-11] MEDS: ALBUTEROL FS 2.5 MG/0.5 ML VIAL.NEB NEB SCH ×4 (01:52→20:24)
[2021-08-11] MEDS: IPRATROPIUM NEB FS 0.5 MG/2.5 ML AMPUL.NEB NEB SCH ×4 (01:52→20:24)
[2021-08-11] MEDS: OMEPRAZOLE 20 MG CAPSULE.DR GT SCH (05:42)
[2021-08-11 08:00] VITALS: BP 102/56
[2021-08-11] MEDS: MULTIVIT W/MINERALS 1 TAB TABLET GT SCH (09:00)
[2021-08-11] MEDS: ASCORBIC ACID 500 MG TABLET GT SCH (09:00)
[2021-08-11] MEDS: DOCUSATE SODIUM LIQ 100 MG/10 ML UDC GT SCH ×2 (09:00→17:38)
[2021-08-11] MEDS: DILTIAZEM HCL 30 MG TABLET GT SCH ×2 (09:00→21:31)
[2021-08-11] MEDS: SITAGLIPTIN PHOSPHATE 50 MG TABLET GT SCH (09:00)
[2021-08-11] MEDS: LISINOPRIL (5MG) 5 MG TABLET GT SCH (09:00)
[2021-08-11] MEDS: ZINC SULFATE 220 MG CAPSULE GT SCH (09:00)
[2021-08-11] MEDS: LEVETIRACETAM SOL (5 ML) 100 MG/ML UDC GT SCH ×2 (09:00→21:31)
[2021-08-11] MEDS: ACIDOPHILUS/BULGARICUS 1 EACH TAB.CHEW GT SCH ×2 (09:00→17:38)
[2021-08-11] MEDS: FERROUS SULFATE - FOR SA ONLY 330 MG/7.5 ML UDC GT SCH (09:00)
[2021-08-11] MEDS: VITAMINS A AND D 56.7 GM TUBE TP SCH ×4 (09:00→21:31)
[2021-08-11] MEDS: HYDROGEN PEROXIDE 480 ML BOTTLE TP SCH ×2 (09:20→21:00)
[2021-08-11 12:00] VITALS: BP 109/56
[2021-08-11] MEDS: INSULIN ASPART/LISPRO 100 UNIT/ML CARTRIDGE SQ PRN ×3 (13:33→23:16)
[2021-08-11 15:28] VITALS: BP 109/56
[2021-08-11 20:00] VITALS: BP 122/66
[2021-08-11] MEDS: ATORVASTATIN 10 MG TABLET GT SCH (21:31)
[2021-08-11] MEDS: POLYETHYLENE GLYCOL 3350 17 GM POWD.PACK GT SCH (21:31)
[2021-08-11] MEDS: INSULIN GLARGINE,BASAGLAR 100 UNIT/ML INSULN.PEN SQ SCH (21:32)
[2021-08-11] MEDS: ENOXAPARIN SODIUM 40 MG/0.4 ML DISP.SYRIN SQ SCH (21:33)
[2021-08-12] MEDS: ALBUTEROL FS 2.5 MG/0.5 ML VIAL.NEB NEB SCH ×4 (02:13→19:27)
[2021-08-12] MEDS: IPRATROPIUM NEB FS 0.5 MG/2.5 ML AMPUL.NEB NEB SCH ×4 (02:13→19:27)
[2021-08-12] MEDS: POLYVINYL ALCOHOL 15 ML BOTTLE EACHEYE SCH ×4 (05:26→23:27)
[2021-08-12] MEDS: OMEPRAZOLE 20 MG CAPSULE.DR GT SCH (05:26)
[2021-08-12] MEDS: BLOOD SUGAR DIAGNOSTIC 1 EACH STRIP IN SCH ×4 (05:26→23:27)
[2021-08-12] MEDS: INSULIN ASPART/LISPRO 100 UNIT/ML CARTRIDGE SQ PRN ×4 (05:30→23:27)
[2021-08-12] MEDS: GLUCERNA 1.2 1,000 ML BOTTLE GT PRN (06:29)
[2021-08-12 08:00] VITALS: BP 109/54
[2021-08-12] MEDS: DILTIAZEM HCL 30 MG TABLET GT SCH ×2 (08:59→21:19)
[2021-08-12] MEDS: LEVETIRACETAM SOL (5 ML) 100 MG/ML UDC GT SCH ×2 (09:00→21:19)
[2021-08-12] MEDS: SITAGLIPTIN PHOSPHATE 50 MG TABLET GT SCH (09:00)
[2021-08-12] MEDS: ZINC SULFATE 220 MG CAPSULE GT SCH (09:00)
[2021-08-12] MEDS: MULTIVIT W/MINERALS 1 TAB TABLET GT SCH (09:00)
[2021-08-12] MEDS: FERROUS SULFATE - FOR SA ONLY 330 MG/7.5 ML UDC GT SCH (09:00)
[2021-08-12] MEDS: LISINOPRIL (5MG) 5 MG TABLET GT SCH (09:00)
[2021-08-12] MEDS: DOCUSATE SODIUM LIQ 100 MG/10 ML UDC GT SCH ×2 (09:00→16:38)
[2021-08-12] MEDS: ACIDOPHILUS/BULGARICUS 1 EACH TAB.CHEW GT SCH ×2 (09:00→16:38)
[2021-08-12] MEDS: VITAMINS A AND D 56.7 GM TUBE TP SCH ×4 (09:00→21:20)
[2021-08-12] MEDS: ASCORBIC ACID 500 MG TABLET GT SCH (09:00)
[2021-08-12] MEDS: HYDROGEN PEROXIDE 480 ML BOTTLE TP SCH ×2 (09:15→20:08)
[2021-08-12 12:00] VITALS: BP 116/59
--- NOTE | 2021-08-12 14:35 | NUR ---
Facility Update: SW notified pt.'s daughter, Kelly via email that, "A Sub-Acute employee tested positive for COVID-19 this week. There was no resident exposure. Residents and staff will continue receiving routine testing as outlined by [facility] Department of Public Health. [facility] will continue to implement [facility] infection control protocols and continue screening employees before every shift. [facility] continues to follow infection control protocols and screen our residents and staff daily for symptoms".
[2021-08-12 20:24] VITALS: BP 139/77
[2021-08-12] MEDS: ATORVASTATIN 10 MG TABLET GT SCH (21:20)
[2021-08-12] MEDS: POLYETHYLENE GLYCOL 3350 17 GM POWD.PACK GT SCH (21:20)
[2021-08-12] MEDS: ENOXAPARIN SODIUM 40 MG/0.4 ML DISP.SYRIN SQ SCH (21:22)
[2021-08-12] MEDS: INSULIN GLARGINE,BASAGLAR 100 UNIT/ML INSULN.PEN SQ SCH (21:22)
[2021-08-13] MEDS: ALBUTEROL FS 2.5 MG/0.5 ML VIAL.NEB NEB SCH ×4 (00:35→18:58)
[2021-08-13] MEDS: IPRATROPIUM NEB FS 0.5 MG/2.5 ML AMPUL.NEB NEB SCH ×4 (00:35→18:58)
[2021-08-13 00:52] VITALS: BP 120/71
[2021-08-13] MEDS: POLYVINYL ALCOHOL 15 ML BOTTLE EACHEYE SCH ×3 (05:21→17:15)
[2021-08-13] MEDS: OMEPRAZOLE 20 MG CAPSULE.DR GT SCH (05:21)
[2021-08-13] MEDS: INSULIN ASPART/LISPRO 100 UNIT/ML CARTRIDGE SQ PRN ×3 (05:22→17:49)
[2021-08-13] MEDS: BLOOD SUGAR DIAGNOSTIC 1 EACH STRIP IN SCH ×3 (05:22→17:48)
[2021-08-13] MEDS: GLUCERNA 1.2 1,000 ML BOTTLE GT PRN (05:50)
[2021-08-13 08:09] VITALS: BP 132/73
[2021-08-13] MEDS: LISINOPRIL (5MG) 5 MG TABLET GT SCH (08:26)
[2021-08-13] MEDS: SITAGLIPTIN PHOSPHATE 50 MG TABLET GT SCH (08:26)
[2021-08-13] MEDS: DILTIAZEM HCL 30 MG TABLET GT SCH ×2 (08:26→21:19)
[2021-08-13] MEDS: LEVETIRACETAM SOL (5 ML) 100 MG/ML UDC GT SCH ×2 (08:27→21:19)
[2021-08-13] MEDS: FERROUS SULFATE - FOR SA ONLY 330 MG/7.5 ML UDC GT SCH (08:28)
[2021-08-13] MEDS: DOCUSATE SODIUM LIQ 100 MG/10 ML UDC GT SCH ×2 (08:28→17:14)
[2021-08-13] MEDS: ACIDOPHILUS/BULGARICUS 1 EACH TAB.CHEW GT SCH ×2 (08:28→17:14)
[2021-08-13] MEDS: ZINC SULFATE 220 MG CAPSULE GT SCH (08:29)
[2021-08-13] MEDS: MULTIVIT W/MINERALS 1 TAB TABLET GT SCH (08:29)
[2021-08-13] MEDS: ASCORBIC ACID 500 MG TABLET GT SCH (08:29)
[2021-08-13] MEDS: VITAMINS A AND D 56.7 GM TUBE TP SCH ×4 (08:30→21:19)
[2021-08-13] MEDS: HYDROGEN PEROXIDE 480 ML BOTTLE TP SCH ×2 (09:33→20:05)
[2021-08-13 13:57] VITALS: BP 140/63
[2021-08-13 20:58] VITALS: BP 129/70
[2021-08-13] MEDS: ATORVASTATIN 10 MG TABLET GT SCH (21:19)
[2021-08-13] MEDS: POLYETHYLENE GLYCOL 3350 17 GM POWD.PACK GT SCH (21:19)
[2021-08-13] MEDS: ENOXAPARIN SODIUM 40 MG/0.4 ML DISP.SYRIN SQ SCH (21:20)
[2021-08-13] MEDS: INSULIN GLARGINE,BASAGLAR 100 UNIT/ML INSULN.PEN SQ SCH (21:23)
[2021-08-14] VITALS (8 sets, daily range): BP systolic 81–122; BP diastolic 55–84
[2021-08-14] MEDS: BLOOD SUGAR DIAGNOSTIC 1 EACH STRIP IN SCH ×4 (00:37→17:31)
[2021-08-14] MEDS: INSULIN ASPART/LISPRO 100 UNIT/ML CARTRIDGE SQ PRN ×4 (00:37→17:32)
[2021-08-14] MEDS: POLYVINYL ALCOHOL 15 ML BOTTLE EACHEYE SCH ×4 (00:37→17:27)
[2021-08-14] MEDS: IPRATROPIUM NEB FS 0.5 MG/2.5 ML AMPUL.NEB NEB SCH ×4 (01:02→19:50)
[2021-08-14] MEDS: ALBUTEROL FS 2.5 MG/0.5 ML VIAL.NEB NEB SCH ×4 (01:02→19:50)
[2021-08-14] MEDS: OMEPRAZOLE 20 MG CAPSULE.DR GT SCH (05:39)
[2021-08-14] MEDS: DILTIAZEM HCL 30 MG TABLET GT SCH ×2 (09:32→21:00)
[2021-08-14] MEDS: FERROUS SULFATE - FOR SA ONLY 330 MG/7.5 ML UDC GT SCH (09:32)
[2021-08-14] MEDS: DOCUSATE SODIUM LIQ 100 MG/10 ML UDC GT SCH ×2 (09:32→17:27)
[2021-08-14] MEDS: SITAGLIPTIN PHOSPHATE 50 MG TABLET GT SCH (09:33)
[2021-08-14] MEDS: ACIDOPHILUS/BULGARICUS 1 EACH TAB.CHEW GT SCH ×2 (09:33→17:27)
[2021-08-14] MEDS: LISINOPRIL (5MG) 5 MG TABLET GT SCH (09:33)
[2021-08-14] MEDS: LEVETIRACETAM SOL (5 ML) 100 MG/ML UDC GT SCH ×2 (09:33→21:18)
[2021-08-14] MEDS: ZINC SULFATE 220 MG CAPSULE GT SCH (09:34)
[2021-08-14] MEDS: ASCORBIC ACID 500 MG TABLET GT SCH (09:34)
[2021-08-14] MEDS: VITAMINS A AND D 56.7 GM TUBE TP SCH ×4 (09:34→21:18)
[2021-08-14] MEDS: MULTIVIT W/MINERALS 1 TAB TABLET GT SCH (09:34)
[2021-08-14] MEDS: HYDROGEN PEROXIDE 480 ML BOTTLE TP SCH ×2 (09:44→21:32)
[2021-08-14] MEDS: GLUCERNA 1.2 1,000 ML BOTTLE GT PRN (18:24)
[2021-08-14] MEDS: ATORVASTATIN 10 MG TABLET GT SCH (21:18)
[2021-08-14] MEDS: POLYETHYLENE GLYCOL 3350 17 GM POWD.PACK GT SCH (21:18)
[2021-08-14] MEDS: ENOXAPARIN SODIUM 40 MG/0.4 ML DISP.SYRIN SQ SCH (21:19)
[2021-08-14] MEDS: INSULIN GLARGINE,BASAGLAR 100 UNIT/ML INSULN.PEN SQ SCH (21:20)
[2021-08-15 00:23] VITALS: BP 110/69
[2021-08-15] MEDS: BLOOD SUGAR DIAGNOSTIC 1 EACH STRIP IN SCH ×4 (00:29→18:05)
[2021-08-15] MEDS: POLYVINYL ALCOHOL 15 ML BOTTLE EACHEYE SCH ×4 (00:29→18:05)
[2021-08-15] MEDS: INSULIN ASPART/LISPRO 100 UNIT/ML CARTRIDGE SQ PRN ×4 (00:30→18:05)
[2021-08-15] MEDS: ALBUTEROL FS 2.5 MG/0.5 ML VIAL.NEB NEB SCH ×4 (01:51→19:09)
[2021-08-15] MEDS: IPRATROPIUM NEB FS 0.5 MG/2.5 ML AMPUL.NEB NEB SCH ×4 (01:51→19:09)
[2021-08-15] MEDS: OMEPRAZOLE 20 MG CAPSULE.DR GT SCH (05:47)
[2021-08-15 05:48] VITALS: BP 109/69
[2021-08-15 07:20] VITALS: BP 124/76
[2021-08-15] MEDS: HYDROGEN PEROXIDE 480 ML BOTTLE TP SCH ×2 (08:32→21:02)
[2021-08-15] MEDS: LEVETIRACETAM SOL (5 ML) 100 MG/ML UDC GT SCH ×2 (09:06→20:28)
[2021-08-15] MEDS: FERROUS SULFATE - FOR SA ONLY 330 MG/7.5 ML UDC GT SCH (09:06)
[2021-08-15] MEDS: DILTIAZEM HCL 30 MG TABLET GT SCH ×2 (09:06→20:26)
[2021-08-15] MEDS: DOCUSATE SODIUM LIQ 100 MG/10 ML UDC GT SCH ×2 (09:06→16:41)
[2021-08-15] MEDS: SITAGLIPTIN PHOSPHATE 50 MG TABLET GT SCH (09:08)
[2021-08-15] MEDS: ACIDOPHILUS/BULGARICUS 1 EACH TAB.CHEW GT SCH ×2 (09:08→16:41)
[2021-08-15] MEDS: ZINC SULFATE 220 MG CAPSULE GT SCH (09:09)
[2021-08-15] MEDS: VITAMINS A AND D 56.7 GM TUBE TP SCH ×4 (09:09→20:28)
[2021-08-15] MEDS: MULTIVIT W/MINERALS 1 TAB TABLET GT SCH (09:09)
[2021-08-15] MEDS: ASCORBIC ACID 500 MG TABLET GT SCH (09:09)
[2021-08-15] MEDS: LISINOPRIL (5MG) 5 MG TABLET GT SCH (09:09)
[2021-08-15 12:52] VITALS: BP 117/73
[2021-08-15] MEDS: GLUCERNA 1.2 1,000 ML BOTTLE GT PRN (18:03)
[2021-08-15 20:00] VITALS: BP 107/64
[2021-08-15] MEDS: ATORVASTATIN 10 MG TABLET GT SCH (21:17)
[2021-08-15] MEDS: POLYETHYLENE GLYCOL 3350 17 GM POWD.PACK GT SCH (21:17)
[2021-08-15] MEDS: INSULIN GLARGINE,BASAGLAR 100 UNIT/ML INSULN.PEN SQ SCH (21:18)
[2021-08-15] MEDS: ENOXAPARIN SODIUM 40 MG/0.4 ML DISP.SYRIN SQ SCH (21:19)
[2021-08-16] MEDS: BLOOD SUGAR DIAGNOSTIC 1 EACH STRIP IN SCH ×4 (00:47→18:53)
[2021-08-16] MEDS: POLYVINYL ALCOHOL 15 ML BOTTLE EACHEYE SCH ×4 (00:47→18:52)
[2021-08-16] MEDS: INSULIN ASPART/LISPRO 100 UNIT/ML CARTRIDGE SQ PRN ×4 (00:47→18:53)
[2021-08-16] MEDS: IPRATROPIUM NEB FS 0.5 MG/2.5 ML AMPUL.NEB NEB SCH ×4 (01:07→19:30)
[2021-08-16] MEDS: ALBUTEROL FS 2.5 MG/0.5 ML VIAL.NEB NEB SCH ×4 (01:07→19:30)
[2021-08-16] MEDS: OMEPRAZOLE 20 MG CAPSULE.DR GT SCH (05:09)
[2021-08-16 07:38] VITALS: BP 110/70
[2021-08-16] MEDS: HYDROGEN PEROXIDE 480 ML BOTTLE TP SCH ×2 (08:32→21:00)
[2021-08-16] MEDS: DOCUSATE SODIUM LIQ 100 MG/10 ML UDC GT SCH ×2 (09:09→16:49)
[2021-08-16] MEDS: DILTIAZEM HCL 30 MG TABLET GT SCH ×2 (09:09→21:00)
[2021-08-16] MEDS: LEVETIRACETAM SOL (5 ML) 100 MG/ML UDC GT SCH ×2 (09:10→21:00)
[2021-08-16] MEDS: SITAGLIPTIN PHOSPHATE 50 MG TABLET GT SCH (09:10)
[2021-08-16] MEDS: FERROUS SULFATE - FOR SA ONLY 330 MG/7.5 ML UDC GT SCH (09:10)
[2021-08-16] MEDS: ACIDOPHILUS/BULGARICUS 1 EACH TAB.CHEW GT SCH ×2 (09:11→16:49)
[2021-08-16] MEDS: LISINOPRIL (5MG) 5 MG TABLET GT SCH (09:11)
[2021-08-16] MEDS: MULTIVIT W/MINERALS 1 TAB TABLET GT SCH (09:11)
[2021-08-16] MEDS: ZINC SULFATE 220 MG CAPSULE GT SCH (09:12)
[2021-08-16] MEDS: VITAMINS A AND D 56.7 GM TUBE TP SCH ×4 (09:12→21:00)
[2021-08-16] MEDS: ASCORBIC ACID 500 MG TABLET GT SCH (09:12)
[2021-08-16 13:54] VITALS: BP 115/68
[2021-08-16 20:00] VITALS: BP 126/66
[2021-08-16] MEDS: ENOXAPARIN SODIUM 40 MG/0.4 ML DISP.SYRIN SQ SCH (22:00)
[2021-08-16] MEDS: ATORVASTATIN 10 MG TABLET GT SCH (22:00)
[2021-08-16] MEDS: POLYETHYLENE GLYCOL 3350 17 GM POWD.PACK GT SCH (22:00)
[2021-08-16] MEDS: INSULIN GLARGINE,BASAGLAR 100 UNIT/ML INSULN.PEN SQ SCH (22:00)
[2021-08-17] MEDS: ALBUTEROL FS 2.5 MG/0.5 ML VIAL.NEB NEB SCH ×4 (02:05→19:58)
[2021-08-17] MEDS: IPRATROPIUM NEB FS 0.5 MG/2.5 ML AMPUL.NEB NEB SCH ×4 (02:05→19:58)
[2021-08-17] MEDS: BLOOD SUGAR DIAGNOSTIC 1 EACH STRIP IN SCH ×4 (06:21→17:08)
[2021-08-17] MEDS: OMEPRAZOLE 20 MG CAPSULE.DR GT SCH (06:22)
[2021-08-17] MEDS: POLYVINYL ALCOHOL 15 ML BOTTLE EACHEYE SCH ×4 (06:22→17:08)
[2021-08-17 07:19] VITALS: BP 110/63
[2021-08-17] MEDS: LEVETIRACETAM SOL (5 ML) 100 MG/ML UDC GT SCH ×2 (08:54→20:25)
[2021-08-17] MEDS: DOCUSATE SODIUM LIQ 100 MG/10 ML UDC GT SCH ×2 (08:54→16:07)
[2021-08-17] MEDS: SITAGLIPTIN PHOSPHATE 50 MG TABLET GT SCH (08:54)
[2021-08-17] MEDS: FERROUS SULFATE - FOR SA ONLY 330 MG/7.5 ML UDC GT SCH (08:54)
[2021-08-17] MEDS: DILTIAZEM HCL 30 MG TABLET GT SCH ×2 (08:54→20:23)
[2021-08-17] MEDS: MULTIVIT W/MINERALS 1 TAB TABLET GT SCH (08:55)
[2021-08-17] MEDS: ASCORBIC ACID 500 MG TABLET GT SCH (08:55)
[2021-08-17] MEDS: LISINOPRIL (5MG) 5 MG TABLET GT SCH (08:55)
[2021-08-17] MEDS: ACIDOPHILUS/BULGARICUS 1 EACH TAB.CHEW GT SCH ×2 (08:55→16:07)
[2021-08-17] MEDS: ZINC SULFATE 220 MG CAPSULE GT SCH (08:56)
[2021-08-17] MEDS: VITAMINS A AND D 56.7 GM TUBE TP SCH ×4 (08:56→20:25)
[2021-08-17] MEDS: HYDROGEN PEROXIDE 480 ML BOTTLE TP SCH ×2 (09:13→19:58)
[2021-08-17 12:08] VITALS: BP 124/73
[2021-08-17] MEDS: INSULIN ASPART/LISPRO 100 UNIT/ML CARTRIDGE SQ PRN ×2 (12:26→17:09)
--- NOTE | 2021-08-17 16:20 | NUR ---
MDS: SW completed the SS portion of Annual MDS. The patients daughter, Kelly Wong [phone] is the patients conservator. The patient is non-communicative, DNR, Non-Vent with trach and g-tube feeding (see other disciplines notes for further details). The patients last dental exam with Dr. Oliveira was on 04/02/2021. The patients last optometry exam by Dr. Saldana was on 02/22/2021. The patients last podiatry consultation with Dr. Cevallos was on 08/12/2021.
[2021-08-17 19:55] VITALS: BP 103/63
[2021-08-17] MEDS: POLYETHYLENE GLYCOL 3350 17 GM POWD.PACK GT SCH (21:04)
[2021-08-17] MEDS: ATORVASTATIN 10 MG TABLET GT SCH (21:04)
[2021-08-17] MEDS: ENOXAPARIN SODIUM 40 MG/0.4 ML DISP.SYRIN SQ SCH (21:10)
[2021-08-17] MEDS: INSULIN GLARGINE,BASAGLAR 100 UNIT/ML INSULN.PEN SQ SCH (21:10)
[2021-08-18] MEDS: ALBUTEROL FS 2.5 MG/0.5 ML VIAL.NEB NEB SCH ×4 (00:34→20:16)
[2021-08-18] MEDS: IPRATROPIUM NEB FS 0.5 MG/2.5 ML AMPUL.NEB NEB SCH ×4 (00:34→20:16)
[2021-08-18] MEDS: BLOOD SUGAR DIAGNOSTIC 1 EACH STRIP IN SCH ×4 (00:42→17:06)
[2021-08-18] MEDS: POLYVINYL ALCOHOL 15 ML BOTTLE EACHEYE SCH ×4 (00:42→17:03)
[2021-08-18] MEDS: INSULIN ASPART/LISPRO 100 UNIT/ML CARTRIDGE SQ PRN ×2 (00:43→05:11)
[2021-08-18] MEDS: OMEPRAZOLE 20 MG CAPSULE.DR GT SCH (05:11)
[2021-08-18] MEDS: GLUCERNA 1.2 1,000 ML BOTTLE GT PRN (05:26)
[2021-08-18 07:40] VITALS: BP 138/77
[2021-08-18] MEDS: DOCUSATE SODIUM LIQ 100 MG/10 ML UDC GT SCH ×2 (08:31→16:05)
[2021-08-18] MEDS: DILTIAZEM HCL 30 MG TABLET GT SCH ×2 (08:31→21:45)
[2021-08-18] MEDS: FERROUS SULFATE - FOR SA ONLY 330 MG/7.5 ML UDC GT SCH (08:32)
[2021-08-18] MEDS: SITAGLIPTIN PHOSPHATE 50 MG TABLET GT SCH (08:33)
[2021-08-18] MEDS: LEVETIRACETAM SOL (5 ML) 100 MG/ML UDC GT SCH ×2 (08:34→21:45)
[2021-08-18] MEDS: ACIDOPHILUS/BULGARICUS 1 EACH TAB.CHEW GT SCH ×2 (08:34→16:05)
[2021-08-18] MEDS: LISINOPRIL (5MG) 5 MG TABLET GT SCH (08:35)
[2021-08-18] MEDS: ZINC SULFATE 220 MG CAPSULE GT SCH (08:36)
[2021-08-18] MEDS: VITAMINS A AND D 56.7 GM TUBE TP SCH ×4 (08:36→21:45)
[2021-08-18] MEDS: MULTIVIT W/MINERALS 1 TAB TABLET GT SCH (08:36)
[2021-08-18] MEDS: HYDROGEN PEROXIDE 480 ML BOTTLE TP SCH ×2 (08:36→20:16)
[2021-08-18] MEDS: ASCORBIC ACID 500 MG TABLET GT SCH (08:36)
[2021-08-18 10:00] VITALS: BP 138/77
[2021-08-18 19:31] VITALS: BP 127/94
[2021-08-18] MEDS: POLYETHYLENE GLYCOL 3350 17 GM POWD.PACK GT SCH (21:45)
[2021-08-18] MEDS: ATORVASTATIN 10 MG TABLET GT SCH (21:45)
[2021-08-18] MEDS: ENOXAPARIN SODIUM 40 MG/0.4 ML DISP.SYRIN SQ SCH (21:46)
[2021-08-18] MEDS: INSULIN GLARGINE,BASAGLAR 100 UNIT/ML INSULN.PEN SQ SCH (22:37)
[2021-08-19] MEDS: POLYVINYL ALCOHOL 15 ML BOTTLE EACHEYE SCH ×5 (00:23→23:20)
[2021-08-19] MEDS: INSULIN ASPART/LISPRO 100 UNIT/ML CARTRIDGE SQ PRN ×5 (00:23→23:39)
[2021-08-19] MEDS: BLOOD SUGAR DIAGNOSTIC 1 EACH STRIP IN SCH ×5 (00:23→23:39)
[2021-08-19 00:44] VITALS: BP 103/68
[2021-08-19] MEDS: ALBUTEROL FS 2.5 MG/0.5 ML VIAL.NEB NEB SCH ×4 (01:59→20:39)
[2021-08-19] MEDS: IPRATROPIUM NEB FS 0.5 MG/2.5 ML AMPUL.NEB NEB SCH ×4 (01:59→20:39)
[2021-08-19] MEDS: OMEPRAZOLE 20 MG CAPSULE.DR GT SCH (05:52)
--- NOTE | 2021-08-19 05:59 | NUR ---
Right abdominal fold open skin with excoriation ,obtained order for treatment ,apply Nystatin powder every shift x 14 days.
[2021-08-19 06:10] VITALS: BP 122/74
[2021-08-19 07:21] VITALS: BP 121/75
[2021-08-19] MEDS: HYDROGEN PEROXIDE 480 ML BOTTLE TP SCH ×2 (08:01→20:40)
[2021-08-19] MEDS: FERROUS SULFATE - FOR SA ONLY 330 MG/7.5 ML UDC GT SCH (09:11)
[2021-08-19] MEDS: DILTIAZEM HCL 30 MG TABLET GT SCH ×2 (09:11→21:00)
[2021-08-19] MEDS: LEVETIRACETAM SOL (5 ML) 100 MG/ML UDC GT SCH ×2 (09:11→21:30)
[2021-08-19] MEDS: SITAGLIPTIN PHOSPHATE 50 MG TABLET GT SCH (09:11)
[2021-08-19] MEDS: ACIDOPHILUS/BULGARICUS 1 EACH TAB.CHEW GT SCH ×2 (09:11→17:21)
[2021-08-19] MEDS: DOCUSATE SODIUM LIQ 100 MG/10 ML UDC GT SCH ×2 (09:11→17:21)
[2021-08-19] MEDS: LISINOPRIL (5MG) 5 MG TABLET GT SCH (09:12)
[2021-08-19] MEDS: ASCORBIC ACID 500 MG TABLET GT SCH (09:12)
[2021-08-19] MEDS: MULTIVIT W/MINERALS 1 TAB TABLET GT SCH (09:12)
[2021-08-19] MEDS: ZINC SULFATE 220 MG CAPSULE GT SCH (09:12)
[2021-08-19] MEDS: VITAMINS A AND D 56.7 GM TUBE TP SCH ×4 (09:13→21:30)
[2021-08-19] MEDS: NYSTATIN TOP POWDER 15 GM BOTTLE TP SCH ×2 (09:13→21:30)
[2021-08-19 09:16] LABS: BASOPHILS % (AUTO) 0.7 % (0.0-2.0); EOSINOPHILS % (AUTO) 3.6 % (0.0-6.0); HEMATOCRIT 43 % (33-45); HEMOGLOBIN 14.2 g/dL (11.5-14.8); LYMPHOCYTES # (AUTO) 3.3 K/uL (0.8-4.8); LYMPHOCYTES % (AUTO) 54.1 % (20.0-44.0); MEAN CORPUSCULAR HGB CONC 33 g/dl (31.0-36.0); MEAN CORPUSCULAR VOLUME 92 fL (82-100); MONOCYTES # (AUTO) 0.5 K/uL (0.1-1.30); MONOCYTES % (AUTO) 8.7 % (2.0-12.0); NEUTROPHILS % (AUTO) 32.9 % (43.0-81.0); PLATELET COUNT (AUTO) 283 K/uL (150-450); WHITE BLOOD COUNT (AUTO) 6.2 K/uL (4.3-11.0)
[2021-08-19 09:32] LABS: CALCIUM, SERUM 9.5 mg/dL (8.5-10.1); MAGNESIUM 2.4 mg/dL (1.8-2.4); PHOSPHORUS 3.9 mg/dL (2.5-4.9); POTASSIUM 4.5 mmol/L (3.5-5.1)
[2021-08-19 12:14] VITALS: BP 92/64
[2021-08-19 12:58] LABS: EOSINOPHILS % (MANUAL) 1 % (0-4); LYMPHOCYTES % (MANUAL) 59 % (16-48); MONOCYTES % (MANUAL) 7 % (0-11.0); NEUTROPHILS % (MANUAL) 33 (42-76)
[2021-08-19] MEDS: GLUCERNA 1.2 1,000 ML BOTTLE GT PRN (17:22)
[2021-08-19 20:39] VITALS: BP 98/58
[2021-08-19] MEDS: ATORVASTATIN 10 MG TABLET GT SCH (21:30)
[2021-08-19] MEDS: POLYETHYLENE GLYCOL 3350 17 GM POWD.PACK GT SCH (21:30)
[2021-08-19] MEDS: INSULIN GLARGINE,BASAGLAR 100 UNIT/ML INSULN.PEN SQ SCH (21:31)
[2021-08-19] MEDS: ENOXAPARIN SODIUM 40 MG/0.4 ML DISP.SYRIN SQ SCH (21:31)
[2021-08-20 00:38] VITALS: BP 102/68
[2021-08-20] MEDS: ALBUTEROL FS 2.5 MG/0.5 ML VIAL.NEB NEB SCH ×4 (02:25→18:39)
[2021-08-20] MEDS: IPRATROPIUM NEB FS 0.5 MG/2.5 ML AMPUL.NEB NEB SCH ×4 (02:25→18:39)
[2021-08-20] MEDS: POLYVINYL ALCOHOL 15 ML BOTTLE EACHEYE SCH ×4 (05:36→23:28)
[2021-08-20] MEDS: OMEPRAZOLE 20 MG CAPSULE.DR GT SCH (05:36)
[2021-08-20] MEDS: INSULIN ASPART/LISPRO 100 UNIT/ML CARTRIDGE SQ PRN ×4 (05:36→23:29)
[2021-08-20] MEDS: BLOOD SUGAR DIAGNOSTIC 1 EACH STRIP IN SCH ×4 (05:36→23:28)
[2021-08-20 07:33] VITALS: BP 109/64
[2021-08-20] MEDS: DILTIAZEM HCL 30 MG TABLET GT SCH ×2 (09:07→20:52)
[2021-08-20] MEDS: DOCUSATE SODIUM LIQ 100 MG/10 ML UDC GT SCH ×2 (09:07→16:29)
[2021-08-20] MEDS: LEVETIRACETAM SOL (5 ML) 100 MG/ML UDC GT SCH ×2 (09:08→20:52)
[2021-08-20] MEDS: FERROUS SULFATE - FOR SA ONLY 330 MG/7.5 ML UDC GT SCH (09:08)
[2021-08-20] MEDS: SITAGLIPTIN PHOSPHATE 50 MG TABLET GT SCH (09:08)
[2021-08-20] MEDS: ASCORBIC ACID 500 MG TABLET GT SCH (09:14)
[2021-08-20] MEDS: LISINOPRIL (5MG) 5 MG TABLET GT SCH (09:14)
[2021-08-20] MEDS: ACIDOPHILUS/BULGARICUS 1 EACH TAB.CHEW GT SCH ×2 (09:14→16:30)
[2021-08-20] MEDS: MULTIVIT W/MINERALS 1 TAB TABLET GT SCH (09:14)
[2021-08-20] MEDS: NYSTATIN TOP POWDER 15 GM BOTTLE TP SCH ×2 (09:15→20:52)
[2021-08-20] MEDS: VITAMINS A AND D 56.7 GM TUBE TP SCH ×4 (09:15→20:52)
[2021-08-20] MEDS: ZINC SULFATE 220 MG CAPSULE GT SCH (09:15)
[2021-08-20] MEDS: HYDROGEN PEROXIDE 480 ML BOTTLE TP SCH ×2 (09:22→20:16)
[2021-08-20 11:48] VITALS: BP 129/76
--- NOTE | 2021-08-20 15:13 | NUR ---
INTERDISCIPLINARY PLAN OF CARE CONFERENCE took place today. The patients responsible alliance party, Nathanmonica [phone] Capone and Interdisciplinary team discussed the plan of care in detail. Current orders as well as treatments and medications were reviewed. See team conference notes for details.
--- NOTE | 2021-08-20 15:38 | NUR ---
Latest Facility Update: ORACIO informed pt.'s responsible green party,Kelly via email that, "SW Facility Update: No [facility] employee tested positive for COVID-19 this week. Residents and staff will continue receiving routine testing. We will continue to implement [facility] infection control protocols and continue screening employees before every shift. [facility] continues to follow infection control protocols and screen our residents and staff daily for symptoms". ORACIO also encouraged family to get vaccinated and boosted and notified them that per [facility], when transmission rate lowers to moderate, fully vaccinated and boosted visitors will not need to show proof of negative COVID test. SW notified families that the transmission rate is still at high and the visitation guidelines remain the same. SW reminded them they still need to present negative COVID test upon visiting regardless of vaccination status at this time. ORACIO attached visitation guideline with instructions.
[2021-08-20] MEDS: GLUCERNA 1.2 1,000 ML BOTTLE GT PRN (18:42)
[2021-08-20 19:42] VITALS: BP 121/70
[2021-08-20] MEDS: ATORVASTATIN 10 MG TABLET GT SCH (21:12)
[2021-08-20] MEDS: POLYETHYLENE GLYCOL 3350 17 GM POWD.PACK GT SCH (21:12)
[2021-08-20] MEDS: INSULIN GLARGINE,BASAGLAR 100 UNIT/ML INSULN.PEN SQ SCH (21:13)
[2021-08-20] MEDS: ENOXAPARIN SODIUM 40 MG/0.4 ML DISP.SYRIN SQ SCH (21:13)
[2021-08-21 00:25] VITALS: BP 112/73
[2021-08-21] MEDS: ALBUTEROL FS 2.5 MG/0.5 ML VIAL.NEB NEB SCH ×4 (00:33→18:41)
[2021-08-21] MEDS: IPRATROPIUM NEB FS 0.5 MG/2.5 ML AMPUL.NEB NEB SCH ×4 (00:33→18:41)
[2021-08-21] MEDS: POLYVINYL ALCOHOL 15 ML BOTTLE EACHEYE SCH ×3 (05:36→17:15)
[2021-08-21] MEDS: BLOOD SUGAR DIAGNOSTIC 1 EACH STRIP IN SCH ×3 (05:36→17:39)
[2021-08-21] MEDS: INSULIN ASPART/LISPRO 100 UNIT/ML CARTRIDGE SQ PRN ×3 (05:36→17:39)
[2021-08-21] MEDS: OMEPRAZOLE 20 MG CAPSULE.DR GT SCH (05:36)
[2021-08-21 07:58] VITALS: BP 117/79
[2021-08-21] MEDS: HYDROGEN PEROXIDE 480 ML BOTTLE TP SCH ×2 (09:02→20:17)
[2021-08-21] MEDS: DOCUSATE SODIUM LIQ 100 MG/10 ML UDC GT SCH ×2 (09:26→17:15)
[2021-08-21] MEDS: DILTIAZEM HCL 30 MG TABLET GT SCH ×2 (09:26→21:55)
[2021-08-21] MEDS: FERROUS SULFATE - FOR SA ONLY 330 MG/7.5 ML UDC GT SCH (09:27)
[2021-08-21] MEDS: LEVETIRACETAM SOL (5 ML) 100 MG/ML UDC GT SCH ×2 (09:28→21:55)
[2021-08-21] MEDS: ASCORBIC ACID 500 MG TABLET GT SCH (09:28)
[2021-08-21] MEDS: MULTIVIT W/MINERALS 1 TAB TABLET GT SCH (09:28)
[2021-08-21] MEDS: SITAGLIPTIN PHOSPHATE 50 MG TABLET GT SCH (09:28)
[2021-08-21] MEDS: ZINC SULFATE 220 MG CAPSULE GT SCH (09:28)
[2021-08-21] MEDS: ACIDOPHILUS/BULGARICUS 1 EACH TAB.CHEW GT SCH ×2 (09:28→17:15)
[2021-08-21] MEDS: LISINOPRIL (5MG) 5 MG TABLET GT SCH (09:29)
[2021-08-21] MEDS: VITAMINS A AND D 56.7 GM TUBE TP SCH ×4 (09:29→21:55)
[2021-08-21] MEDS: NYSTATIN TOP POWDER 15 GM BOTTLE TP SCH ×2 (09:30→21:55)
[2021-08-21] MEDS ORDERED: TUBERCULIN,PURIF.PROT.DERIV. 5 TU/0.1 ML VIAL ID SCH (11:00)
[2021-08-21 12:37] VITALS: BP 126/73
--- NOTE | 2021-08-21 18:40 | NUR ---
Found patient's GT out with burst balloon, reinserted Fr.20/6 ml balloon. patient tolerated procedure, no resistance. Dr. Capone notified, KUB ordered. Awaiting for radiology. Endorsed.
[2021-08-21 20:50] VITALS: BP 113/58
[2021-08-21] MEDS ORDERED: DIATR MEGLU/DIATRIZOATE SODIUM 30 ML BOTTLE (GASTROGRAPHIN) ONE (21:13)
--- NOTE | 2021-08-21 21:20 | NUR ---
Radiologist came and performed KUB procedure to patient. Waiting for the result.
[2021-08-21] MEDS: ATORVASTATIN 10 MG TABLET GT SCH (21:55)
[2021-08-21] MEDS: POLYETHYLENE GLYCOL 3350 17 GM POWD.PACK GT SCH (21:55)
[2021-08-21] MEDS: INSULIN GLARGINE,BASAGLAR 100 UNIT/ML INSULN.PEN SQ SCH (21:55)
[2021-08-21] MEDS: ENOXAPARIN SODIUM 40 MG/0.4 ML DISP.SYRIN SQ SCH (21:55)
--- NOTE | 2021-08-21 21:55 | NUR ---
Administered all medication as ordered. G-tube feeding and flushes resumed. Pt tolerated well. will monitor closely.
[2021-08-22] MEDS: POLYVINYL ALCOHOL 15 ML BOTTLE EACHEYE SCH ×5 (00:31→23:48)
[2021-08-22] MEDS: BLOOD SUGAR DIAGNOSTIC 1 EACH STRIP IN SCH ×5 (00:31→23:48)
[2021-08-22] MEDS: INSULIN ASPART/LISPRO 100 UNIT/ML CARTRIDGE SQ PRN ×5 (00:31→23:48)
[2021-08-22] MEDS: ALBUTEROL FS 2.5 MG/0.5 ML VIAL.NEB NEB SCH ×4 (00:50→19:12)
[2021-08-22] MEDS: IPRATROPIUM NEB FS 0.5 MG/2.5 ML AMPUL.NEB NEB SCH ×4 (00:50→19:12)
[2021-08-22 00:59] VITALS: BP 120/60
--- NOTE | 2021-08-22 02:40 | NUR ---
Received KUB result for the patient (@2145). G-Tube was in place, no extravasation noted. KUB result was relayed to nurse ma to resume routine meds and GT feeding. Will continue to monitor patient.
--- NOTE | 2021-08-22 03:18 | NUR ---
pt tolerating g-tube feeding. noted 60ml milky gastric residual. no emesis. no discomfort noted. will continue to monitor closely.
[2021-08-22] MEDS: OMEPRAZOLE 20 MG CAPSULE.DR GT SCH (05:54)
--- NOTE | 2021-08-22 06:00 | NUR ---
pt tolerated g-tube feeding. no gastric residual noted at this time. no n/v during shift. pt sleeping. calm and comfortable. no s/s of respiratory distress noted. all safety measures in place. will endorse to oncoming shift.
[2021-08-22 06:07] VITALS: BP 101/61
[2021-08-22] MEDS: GLUCERNA 1.2 1,000 ML BOTTLE GT PRN (07:25)
[2021-08-22 07:36] VITALS: BP 110/58
[2021-08-22] MEDS: HYDROGEN PEROXIDE 480 ML BOTTLE TP SCH ×2 (08:57→21:48)
[2021-08-22] MEDS: LISINOPRIL (5MG) 5 MG TABLET GT SCH (09:00)
[2021-08-22] MEDS: DOCUSATE SODIUM LIQ 100 MG/10 ML UDC GT SCH ×2 (09:00→17:47)
[2021-08-22] MEDS: ZINC SULFATE 220 MG CAPSULE GT SCH (09:00)
[2021-08-22] MEDS: FERROUS SULFATE - FOR SA ONLY 330 MG/7.5 ML UDC GT SCH (09:00)
[2021-08-22] MEDS: SITAGLIPTIN PHOSPHATE 50 MG TABLET GT SCH (09:00)
[2021-08-22] MEDS: NYSTATIN TOP POWDER 15 GM BOTTLE TP SCH ×2 (09:00→20:16)
[2021-08-22] MEDS: VITAMINS A AND D 56.7 GM TUBE TP SCH ×4 (09:00→20:16)
[2021-08-22] MEDS: ASCORBIC ACID 500 MG TABLET GT SCH (09:00)
[2021-08-22] MEDS: MULTIVIT W/MINERALS 1 TAB TABLET GT SCH (09:00)
[2021-08-22] MEDS: DILTIAZEM HCL 30 MG TABLET GT SCH ×2 (09:00→20:15)
[2021-08-22] MEDS: LEVETIRACETAM SOL (5 ML) 100 MG/ML UDC GT SCH ×2 (09:00→20:16)
[2021-08-22] MEDS: ACIDOPHILUS/BULGARICUS 1 EACH TAB.CHEW GT SCH ×2 (09:00→17:47)
[2021-08-22 20:03] VITALS: BP 131/73
[2021-08-22] MEDS: POLYETHYLENE GLYCOL 3350 17 GM POWD.PACK GT SCH (21:20)
[2021-08-22] MEDS: ATORVASTATIN 10 MG TABLET GT SCH (21:20)
[2021-08-22] MEDS: INSULIN GLARGINE,BASAGLAR 100 UNIT/ML INSULN.PEN SQ SCH (21:24)
[2021-08-22] MEDS: ENOXAPARIN SODIUM 40 MG/0.4 ML DISP.SYRIN SQ SCH (21:25)
[2021-08-23] MEDS: ALBUTEROL FS 2.5 MG/0.5 ML VIAL.NEB NEB SCH ×4 (00:46→19:56)
[2021-08-23] MEDS: IPRATROPIUM NEB FS 0.5 MG/2.5 ML AMPUL.NEB NEB SCH ×4 (00:46→19:56)
[2021-08-23 01:42] VITALS: BP 111/70
[2021-08-23 02:10] VITALS: BP 126/72
[2021-08-23] MEDS: INSULIN ASPART/LISPRO 100 UNIT/ML CARTRIDGE SQ PRN ×3 (05:19→17:35)
[2021-08-23] MEDS: POLYVINYL ALCOHOL 15 ML BOTTLE EACHEYE SCH ×3 (05:19→17:10)
[2021-08-23] MEDS: OMEPRAZOLE 20 MG CAPSULE.DR GT SCH (05:19)
[2021-08-23] MEDS: BLOOD SUGAR DIAGNOSTIC 1 EACH STRIP IN SCH ×3 (05:19→17:34)
[2021-08-23] MEDS: GLUCERNA 1.2 1,000 ML BOTTLE GT PRN (05:27)
[2021-08-23 07:25] VITALS: BP 119/70
[2021-08-23] MEDS: HYDROGEN PEROXIDE 480 ML BOTTLE TP SCH ×2 (08:35→21:11)
[2021-08-23] MEDS: DILTIAZEM HCL 30 MG TABLET GT SCH ×2 (09:22→20:13)
[2021-08-23] MEDS: DOCUSATE SODIUM LIQ 100 MG/10 ML UDC GT SCH ×2 (09:22→17:09)
[2021-08-23] MEDS: LEVETIRACETAM SOL (5 ML) 100 MG/ML UDC GT SCH ×2 (09:22→20:16)
[2021-08-23] MEDS: FERROUS SULFATE - FOR SA ONLY 330 MG/7.5 ML UDC GT SCH (09:22)
[2021-08-23] MEDS: SITAGLIPTIN PHOSPHATE 50 MG TABLET GT SCH (09:22)
[2021-08-23] MEDS: NYSTATIN TOP POWDER 15 GM BOTTLE TP SCH ×2 (09:23→20:16)
[2021-08-23] MEDS: MULTIVIT W/MINERALS 1 TAB TABLET GT SCH (09:23)
[2021-08-23] MEDS: ASCORBIC ACID 500 MG TABLET GT SCH (09:23)
[2021-08-23] MEDS: ACIDOPHILUS/BULGARICUS 1 EACH TAB.CHEW GT SCH ×2 (09:23→17:09)
[2021-08-23] MEDS: LISINOPRIL (5MG) 5 MG TABLET GT SCH (09:23)
[2021-08-23] MEDS: ZINC SULFATE 220 MG CAPSULE GT SCH (09:23)
[2021-08-23] MEDS: VITAMINS A AND D 56.7 GM TUBE TP SCH ×4 (09:24→20:17)
[2021-08-23 11:41] VITALS: BP 96/63
[2021-08-23 20:27] VITALS: BP 127/60
[2021-08-23] MEDS: POLYETHYLENE GLYCOL 3350 17 GM POWD.PACK GT SCH (21:55)
[2021-08-23] MEDS: ATORVASTATIN 10 MG TABLET GT SCH (21:55)
[2021-08-23] MEDS: ENOXAPARIN SODIUM 40 MG/0.4 ML DISP.SYRIN SQ SCH (21:56)
[2021-08-23] MEDS: INSULIN GLARGINE,BASAGLAR 100 UNIT/ML INSULN.PEN SQ SCH (21:56)
[2021-08-24] MEDS: POLYVINYL ALCOHOL 15 ML BOTTLE EACHEYE SCH ×4 (00:40→17:14)
[2021-08-24] MEDS: BLOOD SUGAR DIAGNOSTIC 1 EACH STRIP IN SCH ×4 (00:40→17:40)
[2021-08-24] MEDS: INSULIN ASPART/LISPRO 100 UNIT/ML CARTRIDGE SQ PRN ×2 (00:40→05:11)
[2021-08-24 01:18] VITALS: BP 107/58
[2021-08-24] MEDS: IPRATROPIUM NEB FS 0.5 MG/2.5 ML AMPUL.NEB NEB SCH ×4 (01:49→20:22)
[2021-08-24] MEDS: ALBUTEROL FS 2.5 MG/0.5 ML VIAL.NEB NEB SCH ×4 (01:49→20:22)
[2021-08-24] MEDS: OMEPRAZOLE 20 MG CAPSULE.DR GT SCH (05:10)
[2021-08-24 08:00] VITALS: BP 124/73
[2021-08-24] MEDS: HYDROGEN PEROXIDE 480 ML BOTTLE TP SCH ×2 (08:59→20:22)
[2021-08-24] MEDS: NYSTATIN TOP POWDER 15 GM BOTTLE TP SCH ×2 (09:00→21:05)
[2021-08-24] MEDS: VITAMINS A AND D 56.7 GM TUBE TP SCH ×4 (09:00→21:05)
[2021-08-24] MEDS: MULTIVIT W/MINERALS 1 TAB TABLET GT SCH (09:59)
[2021-08-24] MEDS: ASCORBIC ACID 500 MG TABLET GT SCH (09:59)
[2021-08-24] MEDS: LEVETIRACETAM SOL (5 ML) 100 MG/ML UDC GT SCH ×2 (09:59→21:05)
[2021-08-24] MEDS: SITAGLIPTIN PHOSPHATE 50 MG TABLET GT SCH (09:59)
[2021-08-24] MEDS: DOCUSATE SODIUM LIQ 100 MG/10 ML UDC GT SCH ×2 (09:59→17:14)
[2021-08-24] MEDS: ZINC SULFATE 220 MG CAPSULE GT SCH (09:59)
[2021-08-24] MEDS: DILTIAZEM HCL 30 MG TABLET GT SCH ×2 (09:59→21:00)
[2021-08-24] MEDS: ACIDOPHILUS/BULGARICUS 1 EACH TAB.CHEW GT SCH ×2 (09:59→17:14)
[2021-08-24] MEDS: FERROUS SULFATE - FOR SA ONLY 330 MG/7.5 ML UDC GT SCH (09:59)
[2021-08-24] MEDS: LISINOPRIL (5MG) 5 MG TABLET GT SCH (09:59)
[2021-08-24] MEDS: GLUCERNA 1.2 1,000 ML BOTTLE GT PRN (12:56)
[2021-08-24 20:23] VITALS: BP 112/58
[2021-08-24] MEDS: ATORVASTATIN 10 MG TABLET GT SCH (21:06)
[2021-08-24] MEDS: ENOXAPARIN SODIUM 40 MG/0.4 ML DISP.SYRIN SQ SCH (21:11)
[2021-08-24] MEDS: POLYETHYLENE GLYCOL 3350 17 GM POWD.PACK GT SCH (21:14)
[2021-08-24] MEDS: INSULIN GLARGINE,BASAGLAR 100 UNIT/ML INSULN.PEN SQ SCH (21:15)
[2021-08-25] MEDS: POLYVINYL ALCOHOL 15 ML BOTTLE EACHEYE SCH ×4 (00:42→17:35)
[2021-08-25] MEDS: BLOOD SUGAR DIAGNOSTIC 1 EACH STRIP IN SCH ×4 (00:42→17:35)
[2021-08-25] MEDS: ALBUTEROL FS 2.5 MG/0.5 ML VIAL.NEB NEB SCH ×4 (02:17→20:36)
[2021-08-25] MEDS: IPRATROPIUM NEB FS 0.5 MG/2.5 ML AMPUL.NEB NEB SCH ×4 (02:17→20:36)
[2021-08-25] MEDS: OMEPRAZOLE 20 MG CAPSULE.DR GT SCH (05:30)
[2021-08-25 07:49] VITALS: BP 131/70
[2021-08-25] MEDS: FERROUS SULFATE - FOR SA ONLY 330 MG/7.5 ML UDC GT SCH (09:13)
[2021-08-25] MEDS: DOCUSATE SODIUM LIQ 100 MG/10 ML UDC GT SCH ×2 (09:13→17:35)
[2021-08-25] MEDS: DILTIAZEM HCL 30 MG TABLET GT SCH ×2 (09:14→21:00)
[2021-08-25] MEDS: SITAGLIPTIN PHOSPHATE 50 MG TABLET GT SCH (09:14)
[2021-08-25] MEDS: LISINOPRIL (5MG) 5 MG TABLET GT SCH (09:14)
[2021-08-25] MEDS: ZINC SULFATE 220 MG CAPSULE GT SCH (09:14)
[2021-08-25] MEDS: ACIDOPHILUS/BULGARICUS 1 EACH TAB.CHEW GT SCH ×2 (09:14→17:35)
[2021-08-25] MEDS: VITAMINS A AND D 56.7 GM TUBE TP SCH ×4 (09:14→21:15)
[2021-08-25] MEDS: NYSTATIN TOP POWDER 15 GM BOTTLE TP SCH ×2 (09:14→21:15)
[2021-08-25] MEDS: LEVETIRACETAM SOL (5 ML) 100 MG/ML UDC GT SCH ×2 (09:14→21:15)
[2021-08-25] MEDS: MULTIVIT W/MINERALS 1 TAB TABLET GT SCH (09:14)
[2021-08-25] MEDS: ASCORBIC ACID 500 MG TABLET GT SCH (09:14)
[2021-08-25] MEDS: HYDROGEN PEROXIDE 480 ML BOTTLE TP SCH ×2 (09:19→20:36)
[2021-08-25 12:08] VITALS: BP 130/83
[2021-08-25] MEDS: INSULIN ASPART/LISPRO 100 UNIT/ML CARTRIDGE SQ PRN (12:20)
[2021-08-25] MEDS: GLUCERNA 1.2 1,000 ML BOTTLE GT PRN (17:35)
[2021-08-25 19:52] VITALS: BP 108/62
[2021-08-25] MEDS: POLYETHYLENE GLYCOL 3350 17 GM POWD.PACK GT SCH (21:15)
[2021-08-25] MEDS: ENOXAPARIN SODIUM 40 MG/0.4 ML DISP.SYRIN SQ SCH (21:15)
[2021-08-25] MEDS: ATORVASTATIN 10 MG TABLET GT SCH (21:15)
[2021-08-25] MEDS: INSULIN GLARGINE,BASAGLAR 100 UNIT/ML INSULN.PEN SQ SCH (21:43)
[2021-08-26] MEDS: BLOOD SUGAR DIAGNOSTIC 1 EACH STRIP IN SCH ×4 (00:29→17:10)
[2021-08-26] MEDS: POLYVINYL ALCOHOL 15 ML BOTTLE EACHEYE SCH ×4 (00:29→17:09)
[2021-08-26 00:30] VITALS: BP 114/66
[2021-08-26] MEDS: INSULIN ASPART/LISPRO 100 UNIT/ML CARTRIDGE SQ PRN ×4 (00:30→17:10)
[2021-08-26] MEDS: IPRATROPIUM NEB FS 0.5 MG/2.5 ML AMPUL.NEB NEB SCH ×4 (02:42→20:57)
[2021-08-26] MEDS: ALBUTEROL FS 2.5 MG/0.5 ML VIAL.NEB NEB SCH ×4 (02:42→20:57)
[2021-08-26] MEDS: OMEPRAZOLE 20 MG CAPSULE.DR GT SCH (05:47)
[2021-08-26 05:57] VITALS: BP 124/69
[2021-08-26 07:45] VITALS: BP 121/77
[2021-08-26] MEDS: HYDROGEN PEROXIDE 480 ML BOTTLE TP SCH ×2 (08:26→20:57)
[2021-08-26] MEDS: NYSTATIN TOP POWDER 15 GM BOTTLE TP SCH ×2 (08:47→20:43)
[2021-08-26] MEDS: DILTIAZEM HCL 30 MG TABLET GT SCH ×2 (08:47→20:43)
[2021-08-26] MEDS: MULTIVIT W/MINERALS 1 TAB TABLET GT SCH (08:47)
[2021-08-26] MEDS: FERROUS SULFATE - FOR SA ONLY 330 MG/7.5 ML UDC GT SCH (08:47)
[2021-08-26] MEDS: ZINC SULFATE 220 MG CAPSULE GT SCH (08:47)
[2021-08-26] MEDS: LISINOPRIL (5MG) 5 MG TABLET GT SCH (08:47)
[2021-08-26] MEDS: LEVETIRACETAM SOL (5 ML) 100 MG/ML UDC GT SCH ×2 (08:47→20:43)
[2021-08-26] MEDS: ASCORBIC ACID 500 MG TABLET GT SCH (08:47)
[2021-08-26] MEDS: DOCUSATE SODIUM LIQ 100 MG/10 ML UDC GT SCH ×2 (08:47→17:09)
[2021-08-26] MEDS: ACIDOPHILUS/BULGARICUS 1 EACH TAB.CHEW GT SCH ×2 (08:47→17:09)
[2021-08-26] MEDS: SITAGLIPTIN PHOSPHATE 50 MG TABLET GT SCH (08:47)
[2021-08-26] MEDS: VITAMINS A AND D 56.7 GM TUBE TP SCH ×4 (08:47→20:44)
[2021-08-26 15:14] VITALS: BP 97/62
[2021-08-26] MEDS: GLUCERNA 1.2 1,000 ML BOTTLE GT PRN (17:11)
[2021-08-26 19:58] VITALS: BP 93/52
[2021-08-26] MEDS: POLYETHYLENE GLYCOL 3350 17 GM POWD.PACK GT SCH (21:16)
[2021-08-26] MEDS: ATORVASTATIN 10 MG TABLET GT SCH (21:16)
[2021-08-26] MEDS: ENOXAPARIN SODIUM 40 MG/0.4 ML DISP.SYRIN SQ SCH (21:17)
[2021-08-26] MEDS: INSULIN GLARGINE,BASAGLAR 100 UNIT/ML INSULN.PEN SQ SCH (21:17)
[2021-08-27] MEDS: POLYVINYL ALCOHOL 15 ML BOTTLE EACHEYE SCH ×5 (00:13→23:28)
[2021-08-27] MEDS: INSULIN ASPART/LISPRO 100 UNIT/ML CARTRIDGE SQ PRN ×5 (00:14→23:29)
[2021-08-27] MEDS: BLOOD SUGAR DIAGNOSTIC 1 EACH STRIP IN SCH ×5 (00:14→23:28)
[2021-08-27 00:32] VITALS: BP 105/51
[2021-08-27] MEDS: IPRATROPIUM NEB FS 0.5 MG/2.5 ML AMPUL.NEB NEB SCH ×4 (02:08→20:30)
[2021-08-27] MEDS: ALBUTEROL FS 2.5 MG/0.5 ML VIAL.NEB NEB SCH ×4 (02:08→20:30)
[2021-08-27] MEDS: OMEPRAZOLE 20 MG CAPSULE.DR GT SCH (05:22)
[2021-08-27 07:23] VITALS: BP 110/66
[2021-08-27] MEDS: LEVETIRACETAM SOL (5 ML) 100 MG/ML UDC GT SCH ×2 (09:26→21:36)
[2021-08-27] MEDS: DOCUSATE SODIUM LIQ 100 MG/10 ML UDC GT SCH ×2 (09:26→17:23)
[2021-08-27] MEDS: DILTIAZEM HCL 30 MG TABLET GT SCH ×2 (09:26→21:00)
[2021-08-27] MEDS: NYSTATIN TOP POWDER 15 GM BOTTLE TP SCH ×2 (09:26→21:36)
[2021-08-27] MEDS: ACIDOPHILUS/BULGARICUS 1 EACH TAB.CHEW GT SCH ×2 (09:26→17:23)
[2021-08-27] MEDS: ASCORBIC ACID 500 MG TABLET GT SCH (09:26)
[2021-08-27] MEDS: SITAGLIPTIN PHOSPHATE 50 MG TABLET GT SCH (09:26)
[2021-08-27] MEDS: FERROUS SULFATE - FOR SA ONLY 330 MG/7.5 ML UDC GT SCH (09:26)
[2021-08-27] MEDS: MULTIVIT W/MINERALS 1 TAB TABLET GT SCH (09:26)
[2021-08-27] MEDS: ZINC SULFATE 220 MG CAPSULE GT SCH (09:26)
[2021-08-27] MEDS: LISINOPRIL (5MG) 5 MG TABLET GT SCH (09:26)
[2021-08-27] MEDS: VITAMINS A AND D 56.7 GM TUBE TP SCH ×4 (09:26→21:36)
[2021-08-27] MEDS: HYDROGEN PEROXIDE 480 ML BOTTLE TP SCH ×2 (09:28→20:32)
[2021-08-27 12:26] VITALS: BP 126/69
[2021-08-27] MEDS: GLUCERNA 1.2 1,000 ML BOTTLE GT PRN (12:51)
[2021-08-27 19:19] VITALS: BP 100/72
[2021-08-27] MEDS: POLYETHYLENE GLYCOL 3350 17 GM POWD.PACK GT SCH (21:36)
[2021-08-27] MEDS: ATORVASTATIN 10 MG TABLET GT SCH (21:36)
[2021-08-27] MEDS: INSULIN GLARGINE,BASAGLAR 100 UNIT/ML INSULN.PEN SQ SCH (21:37)
[2021-08-27] MEDS: ENOXAPARIN SODIUM 40 MG/0.4 ML DISP.SYRIN SQ SCH (21:37)
[2021-08-28 01:04] VITALS: BP 103/69
[2021-08-28] MEDS: IPRATROPIUM NEB FS 0.5 MG/2.5 ML AMPUL.NEB NEB SCH ×4 (02:30→20:04)
[2021-08-28] MEDS: ALBUTEROL FS 2.5 MG/0.5 ML VIAL.NEB NEB SCH ×4 (02:30→20:04)
[2021-08-28 02:48] VITALS: BP 109/64
[2021-08-28] MEDS: BLOOD SUGAR DIAGNOSTIC 1 EACH STRIP IN SCH ×4 (05:35→23:40)
[2021-08-28] MEDS: INSULIN ASPART/LISPRO 100 UNIT/ML CARTRIDGE SQ PRN ×4 (05:35→23:40)
[2021-08-28] MEDS: POLYVINYL ALCOHOL 15 ML BOTTLE EACHEYE SCH ×4 (05:35→23:40)
[2021-08-28] MEDS: OMEPRAZOLE 20 MG CAPSULE.DR GT SCH (05:35)
[2021-08-28 07:57] VITALS: BP 102/66
[2021-08-28] MEDS: FERROUS SULFATE - FOR SA ONLY 330 MG/7.5 ML UDC GT SCH (09:00)
[2021-08-28] MEDS: MULTIVIT W/MINERALS 1 TAB TABLET GT SCH (09:00)
[2021-08-28] MEDS: ACIDOPHILUS/BULGARICUS 1 EACH TAB.CHEW GT SCH ×2 (09:00→16:59)
[2021-08-28] MEDS: LEVETIRACETAM SOL (5 ML) 100 MG/ML UDC GT SCH ×2 (09:00→21:15)
[2021-08-28] MEDS: ZINC SULFATE 220 MG CAPSULE GT SCH (09:00)
[2021-08-28] MEDS: DILTIAZEM HCL 30 MG TABLET GT SCH ×2 (09:00→21:00)
[2021-08-28] MEDS: ASCORBIC ACID 500 MG TABLET GT SCH (09:00)
[2021-08-28] MEDS: DOCUSATE SODIUM LIQ 100 MG/10 ML UDC GT SCH ×2 (09:00→16:59)
[2021-08-28] MEDS: SITAGLIPTIN PHOSPHATE 50 MG TABLET GT SCH (09:00)
[2021-08-28] MEDS: LISINOPRIL (5MG) 5 MG TABLET GT SCH (09:00)
[2021-08-28] MEDS: VITAMINS A AND D 56.7 GM TUBE TP SCH ×4 (09:01→21:15)
[2021-08-28] MEDS: NYSTATIN TOP POWDER 15 GM BOTTLE TP SCH ×2 (09:01→21:15)
[2021-08-28] MEDS: HYDROGEN PEROXIDE 480 ML BOTTLE TP SCH ×2 (09:20→21:39)
[2021-08-28 11:54] VITALS: BP 135/69
[2021-08-28] MEDS: GLUCERNA 1.2 1,000 ML BOTTLE GT PRN (16:59)
--- NOTE | 2021-08-28 18:24 | NUR ---
Facility Update: Nurse attempted to call 2x daughter "Kelly"- but automated answer "number can't accept calls at this time" unable to leave vm as well, called and notified pt.'s other daughter, Conner via phone call that, "A Sub-Acute employee tested positive for COVID-19 this week. Residents and staff will continue receiving routine testing as outlined by [facility] Department of Public Health. [facility] will continue to implement [facility] infection control protocols and continue screening employees before every shift. [facility] continues to follow infection control protocols and screen our residents and staff daily for symptoms".
[2021-08-28 19:15] VITALS: BP 115/54
[2021-08-28] MEDS: ATORVASTATIN 10 MG TABLET GT SCH (21:15)
[2021-08-28] MEDS: ENOXAPARIN SODIUM 40 MG/0.4 ML DISP.SYRIN SQ SCH (21:15)
[2021-08-28] MEDS: POLYETHYLENE GLYCOL 3350 17 GM POWD.PACK GT SCH (21:15)
[2021-08-28] MEDS: INSULIN GLARGINE,BASAGLAR 100 UNIT/ML INSULN.PEN SQ SCH (21:45)
[2021-08-28 23:50] VITALS: BP 106/74
[2021-08-29 00:18] VITALS: BP 115/54
[2021-08-29] MEDS: IPRATROPIUM NEB FS 0.5 MG/2.5 ML AMPUL.NEB NEB SCH ×4 (01:44→20:02)
[2021-08-29] MEDS: ALBUTEROL FS 2.5 MG/0.5 ML VIAL.NEB NEB SCH ×4 (01:44→20:02)
[2021-08-29 05:33] VITALS: BP 130/77
[2021-08-29] MEDS: BLOOD SUGAR DIAGNOSTIC 1 EACH STRIP IN SCH ×4 (05:36→23:12)
[2021-08-29] MEDS: OMEPRAZOLE 20 MG CAPSULE.DR GT SCH (05:36)
[2021-08-29] MEDS: INSULIN ASPART/LISPRO 100 UNIT/ML CARTRIDGE SQ PRN (05:36)
[2021-08-29] MEDS: POLYVINYL ALCOHOL 15 ML BOTTLE EACHEYE SCH ×4 (05:36→23:13)
[2021-08-29 07:24] VITALS: BP 104/59
[2021-08-29] MEDS: DILTIAZEM HCL 30 MG TABLET GT SCH ×2 (09:00→21:00)
[2021-08-29] MEDS: HYDROGEN PEROXIDE 480 ML BOTTLE TP SCH ×2 (09:05→21:28)
[2021-08-29] MEDS: DOCUSATE SODIUM LIQ 100 MG/10 ML UDC GT SCH ×2 (09:41→16:47)
[2021-08-29] MEDS: FERROUS SULFATE - FOR SA ONLY 330 MG/7.5 ML UDC GT SCH (09:41)
[2021-08-29] MEDS: ACIDOPHILUS/BULGARICUS 1 EACH TAB.CHEW GT SCH ×2 (09:41→16:47)
[2021-08-29] MEDS: SITAGLIPTIN PHOSPHATE 50 MG TABLET GT SCH (09:41)
[2021-08-29] MEDS: LEVETIRACETAM SOL (5 ML) 100 MG/ML UDC GT SCH ×2 (09:41→21:36)
[2021-08-29] MEDS: LISINOPRIL (5MG) 5 MG TABLET GT SCH (09:42)
[2021-08-29] MEDS: MULTIVIT W/MINERALS 1 TAB TABLET GT SCH (09:44)
[2021-08-29] MEDS: NYSTATIN TOP POWDER 15 GM BOTTLE TP SCH ×2 (09:44→21:36)
[2021-08-29] MEDS: ASCORBIC ACID 500 MG TABLET GT SCH (09:44)
[2021-08-29] MEDS: ZINC SULFATE 220 MG CAPSULE GT SCH (09:44)
[2021-08-29] MEDS: VITAMINS A AND D 56.7 GM TUBE TP SCH ×4 (09:45→21:36)
--- NOTE | 2021-08-29 10:35 | NUR ---
Educated staff regarding isolation precautions, use of PPEs and hand hygiene. Pt on contact and droplet isolation precautions per protocol due to Covid-19 exposure.
[2021-08-29 11:26] VITALS: BP 110/71
[2021-08-29] MEDS: GLUCERNA 1.2 1,000 ML BOTTLE GT PRN (16:45)
[2021-08-29 19:50] VITALS: BP 108/59
[2021-08-29] MEDS: POLYETHYLENE GLYCOL 3350 17 GM POWD.PACK GT SCH (21:37)
[2021-08-29] MEDS: ATORVASTATIN 10 MG TABLET GT SCH (21:37)
[2021-08-29] MEDS: ENOXAPARIN SODIUM 40 MG/0.4 ML DISP.SYRIN SQ SCH (21:37)
[2021-08-29] MEDS: INSULIN GLARGINE,BASAGLAR 100 UNIT/ML INSULN.PEN SQ SCH (21:46)
[2021-08-30 00:15] VITALS: BP 98/56
[2021-08-30] MEDS: ALBUTEROL FS 2.5 MG/0.5 ML VIAL.NEB NEB SCH ×4 (01:35→19:58)
[2021-08-30] MEDS: IPRATROPIUM NEB FS 0.5 MG/2.5 ML AMPUL.NEB NEB SCH ×4 (01:35→19:59)
[2021-08-30] MEDS: OMEPRAZOLE 20 MG CAPSULE.DR GT SCH (05:03)
[2021-08-30] MEDS: POLYVINYL ALCOHOL 15 ML BOTTLE EACHEYE SCH ×4 (05:03→23:16)
[2021-08-30] MEDS: BLOOD SUGAR DIAGNOSTIC 1 EACH STRIP IN SCH ×4 (05:05→23:16)
[2021-08-30 07:32] VITALS: BP 124/70
[2021-08-30] MEDS: DILTIAZEM HCL 30 MG TABLET GT SCH ×2 (08:11→20:23)
[2021-08-30] MEDS: DOCUSATE SODIUM LIQ 100 MG/10 ML UDC GT SCH ×2 (08:12→16:17)
[2021-08-30] MEDS: FERROUS SULFATE - FOR SA ONLY 330 MG/7.5 ML UDC GT SCH (08:13)
[2021-08-30] MEDS: SITAGLIPTIN PHOSPHATE 50 MG TABLET GT SCH (08:13)
[2021-08-30] MEDS: ACIDOPHILUS/BULGARICUS 1 EACH TAB.CHEW GT SCH ×2 (08:14→16:17)
[2021-08-30] MEDS: LEVETIRACETAM SOL (5 ML) 100 MG/ML UDC GT SCH ×2 (08:14→20:25)
[2021-08-30] MEDS: MULTIVIT W/MINERALS 1 TAB TABLET GT SCH (08:15)
[2021-08-30] MEDS: ZINC SULFATE 220 MG CAPSULE GT SCH (08:15)
[2021-08-30] MEDS: ASCORBIC ACID 500 MG TABLET GT SCH (08:15)
[2021-08-30] MEDS: HYDROGEN PEROXIDE 480 ML BOTTLE TP SCH ×2 (08:15→08:48)
[2021-08-30] MEDS: LISINOPRIL (5MG) 5 MG TABLET GT SCH (08:15)
[2021-08-30] MEDS: NYSTATIN TOP POWDER 15 GM BOTTLE TP SCH ×2 (08:17→20:25)
[2021-08-30] MEDS: VITAMINS A AND D 56.7 GM TUBE TP SCH ×4 (08:17→20:25)
[2021-08-30 10:00] VITALS: BP 124/70
[2021-08-30 12:05] VITALS: BP 98/57
[2021-08-30 14:58] VITALS: BP 98/57
[2021-08-30] MEDS: GLUCERNA 1.2 1,000 ML BOTTLE GT PRN (15:22)
[2021-08-30 19:56] VITALS: BP 111/64
--- NOTE | 2021-08-30 20:00 | NUR ---
RN NOTES PER [employer] ENGINE REPAIRER [employer], DC ROUTINE BREATHING TREATMENTS; D/C Q6HOUR ALBUTEROL AND Q6HR IPRATROPIUM BR INH. ORDERS RECEIVED AND CARRIED OUT; FAXED ORDER TO [facility]
[2021-08-30] MEDS: POLYETHYLENE GLYCOL 3350 17 GM POWD.PACK GT SCH (21:43)
[2021-08-30] MEDS: ATORVASTATIN 10 MG TABLET GT SCH (21:43)
[2021-08-30] MEDS: INSULIN GLARGINE,BASAGLAR 100 UNIT/ML INSULN.PEN SQ SCH (21:48)
[2021-08-30] MEDS: ENOXAPARIN SODIUM 40 MG/0.4 ML DISP.SYRIN SQ SCH (21:49)
[2021-08-31] MEDS: ALBUTEROL FS 2.5 MG/0.5 ML VIAL.NEB NEB SCH ×3 (01:45→12:48)
[2021-08-31] MEDS: IPRATROPIUM NEB FS 0.5 MG/2.5 ML AMPUL.NEB NEB SCH ×4 (01:45→19:59)
[2021-08-31] MEDS: OMEPRAZOLE 20 MG CAPSULE.DR GT SCH (05:34)
[2021-08-31] MEDS: BLOOD SUGAR DIAGNOSTIC 1 EACH STRIP IN SCH ×3 (05:34→17:47)
[2021-08-31] MEDS: POLYVINYL ALCOHOL 15 ML BOTTLE EACHEYE SCH ×3 (05:34→17:07)
[2021-08-31 07:21] VITALS: BP 111/73
[2021-08-31 07:31] VITALS: BP 135/74
--- NOTE | 2021-08-31 07:40 | NUR ---
PT RECEIVED AWAKE AND ALERT BUT UNABLE TO FOLLOW COMMANDS. RESPONSIVE TO STIM. PT ON CA. WILL CONTINUE CURRENT THERAPY Addendum: 08/31/21 at 1101 by JESSICA RUSH RT Amended: Links added.
[2021-08-31] MEDS: FERROUS SULFATE - FOR SA ONLY 330 MG/7.5 ML UDC GT SCH (08:33)
[2021-08-31] MEDS: LEVETIRACETAM SOL (5 ML) 100 MG/ML UDC GT SCH ×2 (08:33→20:51)
[2021-08-31] MEDS: DOCUSATE SODIUM LIQ 100 MG/10 ML UDC GT SCH ×2 (08:33→16:01)
[2021-08-31] MEDS: DILTIAZEM HCL 30 MG TABLET GT SCH ×2 (08:33→20:51)
[2021-08-31] MEDS: SITAGLIPTIN PHOSPHATE 50 MG TABLET GT SCH (08:33)
[2021-08-31] MEDS: ZINC SULFATE 220 MG CAPSULE GT SCH (08:34)
[2021-08-31] MEDS: LISINOPRIL (5MG) 5 MG TABLET GT SCH (08:34)
[2021-08-31] MEDS: ASCORBIC ACID 500 MG TABLET GT SCH (08:34)
[2021-08-31] MEDS: MULTIVIT W/MINERALS 1 TAB TABLET GT SCH (08:34)
[2021-08-31] MEDS: ACIDOPHILUS/BULGARICUS 1 EACH TAB.CHEW GT SCH ×2 (08:34→16:01)
[2021-08-31] MEDS: VITAMINS A AND D 56.7 GM TUBE TP SCH ×4 (08:35→20:52)
[2021-08-31] MEDS: NYSTATIN TOP POWDER 15 GM BOTTLE TP SCH ×2 (08:35→20:51)
[2021-08-31] MEDS: HYDROGEN PEROXIDE 480 ML BOTTLE TP SCH ×2 (09:00→21:27)
--- NOTE | 2021-08-31 09:35 | NUR ---
Seen and examined by Dr. Capone, no new order given. Covid-19 test result done on 08/28/21 is negative.
[2021-08-31] MEDS: INSULIN ASPART/LISPRO 100 UNIT/ML CARTRIDGE SQ PRN ×2 (11:12→17:49)
[2021-08-31 14:42] VITALS: BP 90/61
--- NOTE | 2021-08-31 16:26 | NUR ---
Facility Update: ORACIO notified patient's family via email that: A sub-acute employee tested positive for COVID-19 on Saturday, August 28, 2021. [facility]-Acute will continue following [facility] Department of Public Health's infection control guidelines and all staff and patients will continue response testing. ORACIO also sent latest visitation guidelines.
[2021-08-31] MEDS: ALBUTEROL FS 2.5 MG/3 ML VIAL.NEB NEB SCH (19:59)
[2021-08-31 20:39] VITALS: BP 103/67
[2021-08-31] MEDS: ATORVASTATIN 10 MG TABLET GT SCH (21:09)
[2021-08-31] MEDS: POLYETHYLENE GLYCOL 3350 17 GM POWD.PACK GT SCH (21:09)
[2021-08-31] MEDS: ENOXAPARIN SODIUM 40 MG/0.4 ML DISP.SYRIN SQ SCH (21:10)
[2021-08-31] MEDS: INSULIN GLARGINE,BASAGLAR 100 UNIT/ML INSULN.PEN SQ SCH (21:26)
[2021-09-01] MEDS: BLOOD SUGAR DIAGNOSTIC 1 EACH STRIP IN SCH ×5 (00:10→23:05)
[2021-09-01] MEDS: POLYVINYL ALCOHOL 15 ML BOTTLE EACHEYE SCH ×5 (00:10→23:05)
[2021-09-01] MEDS: INSULIN ASPART/LISPRO 100 UNIT/ML CARTRIDGE SQ PRN ×4 (00:10→23:05)
[2021-09-01] MEDS: IPRATROPIUM NEB FS 0.5 MG/2.5 ML AMPUL.NEB NEB SCH ×4 (01:57→19:51)
[2021-09-01] MEDS: ALBUTEROL FS 2.5 MG/3 ML VIAL.NEB NEB SCH ×4 (01:57→19:51)
[2021-09-01] MEDS: OMEPRAZOLE 20 MG CAPSULE.DR GT SCH (05:38)
[2021-09-01] MEDS: GLUCERNA 1.2 1,000 ML BOTTLE GT PRN (05:43)
[2021-09-01 07:26] VITALS: BP 110/74
[2021-09-01] MEDS: FERROUS SULFATE - FOR SA ONLY 330 MG/7.5 ML UDC GT SCH (09:00)
[2021-09-01] MEDS: DOCUSATE SODIUM LIQ 100 MG/10 ML UDC GT SCH ×2 (09:00→16:33)
[2021-09-01] MEDS: LEVETIRACETAM SOL (5 ML) 100 MG/ML UDC GT SCH ×2 (09:00→21:02)
[2021-09-01] MEDS: ASCORBIC ACID 500 MG TABLET GT SCH (09:00)
[2021-09-01] MEDS: ZINC SULFATE 220 MG CAPSULE GT SCH (09:00)
[2021-09-01] MEDS: ACIDOPHILUS/BULGARICUS 1 EACH TAB.CHEW GT SCH ×2 (09:00→16:33)
[2021-09-01] MEDS: LISINOPRIL (5MG) 5 MG TABLET GT SCH (09:00)
[2021-09-01] MEDS: SITAGLIPTIN PHOSPHATE 50 MG TABLET GT SCH (09:00)
[2021-09-01] MEDS: VITAMINS A AND D 56.7 GM TUBE TP SCH ×4 (09:00→21:02)
[2021-09-01] MEDS: DILTIAZEM HCL 30 MG TABLET GT SCH ×2 (09:00→21:02)
[2021-09-01] MEDS: MULTIVIT W/MINERALS 1 TAB TABLET GT SCH (09:00)
[2021-09-01] MEDS: NYSTATIN TOP POWDER 15 GM BOTTLE TP SCH ×2 (09:00→21:02)
[2021-09-01] MEDS: HYDROGEN PEROXIDE 480 ML BOTTLE TP SCH ×2 (09:10→19:51)
[2021-09-01 20:18] VITALS: BP 117/84
[2021-09-01 20:23] VITALS: BP 122/80
[2021-09-01] MEDS: ATORVASTATIN 10 MG TABLET GT SCH (21:02)
[2021-09-01] MEDS: POLYETHYLENE GLYCOL 3350 17 GM POWD.PACK GT SCH (21:02)
[2021-09-01] MEDS: ENOXAPARIN SODIUM 40 MG/0.4 ML DISP.SYRIN SQ SCH (21:03)
[2021-09-01] MEDS: INSULIN GLARGINE,BASAGLAR 100 UNIT/ML INSULN.PEN SQ SCH (21:03)
[2021-09-02 00:57] VITALS: BP 112/67
[2021-09-02] MEDS: IPRATROPIUM NEB FS 0.5 MG/2.5 ML AMPUL.NEB NEB SCH ×4 (02:02→20:27)
[2021-09-02] MEDS: ALBUTEROL FS 2.5 MG/3 ML VIAL.NEB NEB SCH ×4 (02:02→20:27)
[2021-09-02] MEDS: GLUCERNA 1.2 1,000 ML BOTTLE GT PRN (05:01)
[2021-09-02] MEDS: POLYVINYL ALCOHOL 15 ML BOTTLE EACHEYE SCH ×4 (05:01→23:02)
[2021-09-02] MEDS: OMEPRAZOLE 20 MG CAPSULE.DR GT SCH (05:01)
[2021-09-02] MEDS: BLOOD SUGAR DIAGNOSTIC 1 EACH STRIP IN SCH ×4 (05:22→23:36)
[2021-09-02] MEDS: INSULIN ASPART/LISPRO 100 UNIT/ML CARTRIDGE SQ PRN ×3 (05:23→23:36)
[2021-09-02 07:28] VITALS: BP 117/77
[2021-09-02] MEDS: HYDROGEN PEROXIDE 480 ML BOTTLE TP SCH ×2 (08:14→20:27)
[2021-09-02] MEDS: FERROUS SULFATE - FOR SA ONLY 330 MG/7.5 ML UDC GT SCH (09:22)
[2021-09-02] MEDS: MULTIVIT W/MINERALS 1 TAB TABLET GT SCH (09:22)
[2021-09-02] MEDS: DOCUSATE SODIUM LIQ 100 MG/10 ML UDC GT SCH ×2 (09:22→16:21)
[2021-09-02] MEDS: VITAMINS A AND D 56.7 GM TUBE TP SCH ×4 (09:22→20:33)
[2021-09-02] MEDS: DILTIAZEM HCL 30 MG TABLET GT SCH ×2 (09:22→20:32)
[2021-09-02] MEDS: SITAGLIPTIN PHOSPHATE 50 MG TABLET GT SCH (09:22)
[2021-09-02] MEDS: LEVETIRACETAM SOL (5 ML) 100 MG/ML UDC GT SCH ×2 (09:22→20:33)
[2021-09-02] MEDS: LISINOPRIL (5MG) 5 MG TABLET GT SCH (09:22)
[2021-09-02] MEDS: ASCORBIC ACID 500 MG TABLET GT SCH (09:22)
[2021-09-02] MEDS: ACIDOPHILUS/BULGARICUS 1 EACH TAB.CHEW GT SCH ×2 (09:22→16:21)
[2021-09-02] MEDS: ZINC SULFATE 220 MG CAPSULE GT SCH (09:22)
--- NOTE | 2021-09-02 11:38 | NUR ---
Facility update: ORACIO notified patient's family via email that: "Please note that another employee tested positive for COVID-19. We are following [facility] of Public Healths infection control guidelines. All staff and patients will continue response testing." ORACIO also notified family that visitation Guidelines remain the same and sent them those guidelines.
[2021-09-02 13:37] VITALS: BP 121/62
[2021-09-02] MEDS: ATORVASTATIN 10 MG TABLET GT SCH (21:18)
[2021-09-02] MEDS: POLYETHYLENE GLYCOL 3350 17 GM POWD.PACK GT SCH (21:18)
[2021-09-02] MEDS: INSULIN GLARGINE,BASAGLAR 100 UNIT/ML INSULN.PEN SQ SCH (21:19)
[2021-09-02] MEDS: ENOXAPARIN SODIUM 40 MG/0.4 ML DISP.SYRIN SQ SCH (21:19)
[2021-09-03 00:20] VITALS: BP 102/65
[2021-09-03] MEDS: ALBUTEROL FS 2.5 MG/3 ML VIAL.NEB NEB SCH ×4 (02:20→20:23)
[2021-09-03] MEDS: IPRATROPIUM NEB FS 0.5 MG/2.5 ML AMPUL.NEB NEB SCH ×4 (02:20→20:23)
[2021-09-03] MEDS: POLYVINYL ALCOHOL 15 ML BOTTLE EACHEYE SCH ×4 (05:36→23:16)
[2021-09-03] MEDS: INSULIN ASPART/LISPRO 100 UNIT/ML CARTRIDGE SQ PRN ×4 (05:36→23:16)
[2021-09-03] MEDS: OMEPRAZOLE 20 MG CAPSULE.DR GT SCH (05:36)
[2021-09-03] MEDS: BLOOD SUGAR DIAGNOSTIC 1 EACH STRIP IN SCH ×4 (05:36→23:16)
[2021-09-03 07:27] VITALS: BP 126/76
[2021-09-03] MEDS: HYDROGEN PEROXIDE 480 ML BOTTLE TP SCH ×2 (09:09→20:23)
[2021-09-03] MEDS: LEVETIRACETAM SOL (5 ML) 100 MG/ML UDC GT SCH ×2 (09:55→21:00)
[2021-09-03] MEDS: DOCUSATE SODIUM LIQ 100 MG/10 ML UDC GT SCH ×2 (09:55→16:56)
[2021-09-03] MEDS: DILTIAZEM HCL 30 MG TABLET GT SCH ×2 (09:55→21:00)
[2021-09-03] MEDS: ACIDOPHILUS/BULGARICUS 1 EACH TAB.CHEW GT SCH ×2 (09:55→16:56)
[2021-09-03] MEDS: SITAGLIPTIN PHOSPHATE 50 MG TABLET GT SCH (09:55)
[2021-09-03] MEDS: FERROUS SULFATE - FOR SA ONLY 330 MG/7.5 ML UDC GT SCH (09:55)
[2021-09-03] MEDS: MULTIVIT W/MINERALS 1 TAB TABLET GT SCH (09:56)
[2021-09-03] MEDS: ZINC SULFATE 220 MG CAPSULE GT SCH (09:56)
[2021-09-03] MEDS: ASCORBIC ACID 500 MG TABLET GT SCH (09:56)
[2021-09-03] MEDS: VITAMINS A AND D 56.7 GM TUBE TP SCH ×4 (09:56→21:01)
[2021-09-03] MEDS: LISINOPRIL (5MG) 5 MG TABLET GT SCH (09:56)
[2021-09-03 14:41] VITALS: BP 131/78
[2021-09-03] MEDS: GLUCERNA 1.2 1,000 ML BOTTLE GT PRN (16:57)
[2021-09-03 20:53] VITALS: BP 143/59
[2021-09-03] MEDS: POLYETHYLENE GLYCOL 3350 17 GM POWD.PACK GT SCH (21:03)
[2021-09-03] MEDS: ATORVASTATIN 10 MG TABLET GT SCH (21:03)
[2021-09-03] MEDS: ENOXAPARIN SODIUM 40 MG/0.4 ML DISP.SYRIN SQ SCH (21:04)
[2021-09-03] MEDS: INSULIN GLARGINE,BASAGLAR 100 UNIT/ML INSULN.PEN SQ SCH (21:04)
[2021-09-04 00:39] VITALS: BP 120/81
[2021-09-04 01:01] VITALS: BP 100/56
[2021-09-04] MEDS: IPRATROPIUM NEB FS 0.5 MG/2.5 ML AMPUL.NEB NEB SCH ×4 (01:58→20:09)
[2021-09-04] MEDS: ALBUTEROL FS 2.5 MG/3 ML VIAL.NEB NEB SCH ×4 (01:58→20:09)
[2021-09-04] MEDS: OMEPRAZOLE 20 MG CAPSULE.DR GT SCH (05:08)
[2021-09-04] MEDS: POLYVINYL ALCOHOL 15 ML BOTTLE EACHEYE SCH ×4 (05:08→23:24)
[2021-09-04] MEDS: BLOOD SUGAR DIAGNOSTIC 1 EACH STRIP IN SCH ×4 (05:15→23:25)
[2021-09-04] MEDS: INSULIN ASPART/LISPRO 100 UNIT/ML CARTRIDGE SQ PRN ×4 (05:16→23:25)
[2021-09-04 07:59] VITALS: BP 128/75
[2021-09-04] MEDS: HYDROGEN PEROXIDE 480 ML BOTTLE TP SCH ×2 (09:35→20:09)
[2021-09-04] MEDS: LEVETIRACETAM SOL (5 ML) 100 MG/ML UDC GT SCH ×2 (09:49→20:45)
[2021-09-04] MEDS: DILTIAZEM HCL 30 MG TABLET GT SCH ×2 (09:49→20:45)
[2021-09-04] MEDS: DOCUSATE SODIUM LIQ 100 MG/10 ML UDC GT SCH ×2 (09:49→16:43)
[2021-09-04] MEDS: ACIDOPHILUS/BULGARICUS 1 EACH TAB.CHEW GT SCH ×2 (09:49→16:43)
[2021-09-04] MEDS: FERROUS SULFATE - FOR SA ONLY 330 MG/7.5 ML UDC GT SCH (09:49)
[2021-09-04] MEDS: SITAGLIPTIN PHOSPHATE 50 MG TABLET GT SCH (09:49)
[2021-09-04] MEDS: LISINOPRIL (5MG) 5 MG TABLET GT SCH (09:49)
[2021-09-04] MEDS: VITAMINS A AND D 56.7 GM TUBE TP SCH ×4 (09:50→20:45)
[2021-09-04] MEDS: ZINC SULFATE 220 MG CAPSULE GT SCH (09:50)
[2021-09-04] MEDS: MULTIVIT W/MINERALS 1 TAB TABLET GT SCH (09:50)
[2021-09-04] MEDS: ASCORBIC ACID 500 MG TABLET GT SCH (09:50)
[2021-09-04 13:16] VITALS: BP 146/61
[2021-09-04] MEDS: GLUCERNA 1.2 1,000 ML BOTTLE GT PRN (19:00)
[2021-09-04] MEDS: POLYETHYLENE GLYCOL 3350 17 GM POWD.PACK GT SCH (21:01)
[2021-09-04] MEDS: ATORVASTATIN 10 MG TABLET GT SCH (21:01)
[2021-09-04] MEDS: INSULIN GLARGINE,BASAGLAR 100 UNIT/ML INSULN.PEN SQ SCH (21:02)
[2021-09-04] MEDS: ENOXAPARIN SODIUM 40 MG/0.4 ML DISP.SYRIN SQ SCH (21:02)
[2021-09-04 21:41] VITALS: BP 130/63
[2021-09-04 23:43] VITALS: BP 132/67
[2021-09-05] MEDS: ALBUTEROL FS 2.5 MG/3 ML VIAL.NEB NEB SCH ×4 (02:00→18:58)
[2021-09-05] MEDS: IPRATROPIUM NEB FS 0.5 MG/2.5 ML AMPUL.NEB NEB SCH ×4 (02:00→18:58)
[2021-09-05] MEDS: OMEPRAZOLE 20 MG CAPSULE.DR GT SCH (05:13)
[2021-09-05] MEDS: BLOOD SUGAR DIAGNOSTIC 1 EACH STRIP IN SCH ×4 (05:13→23:25)
[2021-09-05] MEDS: POLYVINYL ALCOHOL 15 ML BOTTLE EACHEYE SCH ×4 (05:13→23:25)
[2021-09-05] MEDS: INSULIN ASPART/LISPRO 100 UNIT/ML CARTRIDGE SQ PRN ×4 (05:13→23:25)
[2021-09-05 07:20] VITALS: BP 130/74
[2021-09-05] MEDS: HYDROGEN PEROXIDE 480 ML BOTTLE TP SCH ×2 (08:36→20:18)
[2021-09-05] MEDS: FERROUS SULFATE - FOR SA ONLY 330 MG/7.5 ML UDC GT SCH (09:00)
[2021-09-05] MEDS: DILTIAZEM HCL 30 MG TABLET GT SCH ×2 (09:00→20:29)
[2021-09-05] MEDS: LEVETIRACETAM SOL (5 ML) 100 MG/ML UDC GT SCH ×2 (09:00→20:29)
[2021-09-05] MEDS: SITAGLIPTIN PHOSPHATE 50 MG TABLET GT SCH (09:00)
[2021-09-05] MEDS: ASCORBIC ACID 500 MG TABLET GT SCH (09:00)
[2021-09-05] MEDS: LISINOPRIL (5MG) 5 MG TABLET GT SCH (09:00)
[2021-09-05] MEDS: VITAMINS A AND D 56.7 GM TUBE TP SCH ×4 (09:00→20:29)
[2021-09-05] MEDS: DOCUSATE SODIUM LIQ 100 MG/10 ML UDC GT SCH ×2 (09:00→16:45)
[2021-09-05] MEDS: ZINC SULFATE 220 MG CAPSULE GT SCH (09:00)
[2021-09-05] MEDS: MULTIVIT W/MINERALS 1 TAB TABLET GT SCH (09:00)
[2021-09-05] MEDS: ACIDOPHILUS/BULGARICUS 1 EACH TAB.CHEW GT SCH ×2 (09:00→16:45)
[2021-09-05] MEDS: GLUCERNA 1.2 1,000 ML BOTTLE GT PRN (18:32)
[2021-09-05 19:17] VITALS: BP 138/73
[2021-09-05] MEDS: POLYETHYLENE GLYCOL 3350 17 GM POWD.PACK GT SCH (21:38)
[2021-09-05] MEDS: ATORVASTATIN 10 MG TABLET GT SCH (21:38)
[2021-09-05] MEDS: INSULIN GLARGINE,BASAGLAR 100 UNIT/ML INSULN.PEN SQ SCH (21:39)
[2021-09-05] MEDS: ENOXAPARIN SODIUM 40 MG/0.4 ML DISP.SYRIN SQ SCH (21:40)
[2021-09-06] MEDS: IPRATROPIUM NEB FS 0.5 MG/2.5 ML AMPUL.NEB NEB SCH ×4 (01:49→20:04)
[2021-09-06] MEDS: ALBUTEROL FS 2.5 MG/3 ML VIAL.NEB NEB SCH ×4 (01:49→20:04)
[2021-09-06] MEDS: OMEPRAZOLE 20 MG CAPSULE.DR GT SCH (05:35)
[2021-09-06] MEDS: INSULIN ASPART/LISPRO 100 UNIT/ML CARTRIDGE SQ PRN ×4 (05:35→23:09)
[2021-09-06] MEDS: POLYVINYL ALCOHOL 15 ML BOTTLE EACHEYE SCH ×4 (05:35→23:09)
[2021-09-06] MEDS: BLOOD SUGAR DIAGNOSTIC 1 EACH STRIP IN SCH ×4 (05:35→23:09)
[2021-09-06 07:35] VITALS: BP 100/51
[2021-09-06] MEDS: DILTIAZEM HCL 30 MG TABLET GT SCH ×2 (09:00→21:00)
[2021-09-06] MEDS: LISINOPRIL (5MG) 5 MG TABLET GT SCH (09:00)
[2021-09-06] MEDS: HYDROGEN PEROXIDE 480 ML BOTTLE TP SCH ×2 (09:32→21:14)
[2021-09-06] MEDS: ACIDOPHILUS/BULGARICUS 1 EACH TAB.CHEW GT SCH ×2 (09:52→16:37)
[2021-09-06] MEDS: DOCUSATE SODIUM LIQ 100 MG/10 ML UDC GT SCH ×2 (09:52→16:37)
[2021-09-06] MEDS: LEVETIRACETAM SOL (5 ML) 100 MG/ML UDC GT SCH ×2 (09:52→21:19)
[2021-09-06] MEDS: FERROUS SULFATE - FOR SA ONLY 330 MG/7.5 ML UDC GT SCH (09:52)
[2021-09-06] MEDS: SITAGLIPTIN PHOSPHATE 50 MG TABLET GT SCH (09:52)
[2021-09-06] MEDS: ASCORBIC ACID 500 MG TABLET GT SCH (09:53)
[2021-09-06] MEDS: MULTIVIT W/MINERALS 1 TAB TABLET GT SCH (09:53)
[2021-09-06] MEDS: VITAMINS A AND D 56.7 GM TUBE TP SCH ×4 (09:53→21:19)
[2021-09-06] MEDS: ZINC SULFATE 220 MG CAPSULE GT SCH (09:53)
[2021-09-06 13:02] VITALS: BP 133/79
[2021-09-06 20:00] VITALS: BP 101/58
[2021-09-06] MEDS: POLYETHYLENE GLYCOL 3350 17 GM POWD.PACK GT SCH (21:19)
[2021-09-06] MEDS: ATORVASTATIN 10 MG TABLET GT SCH (21:19)
[2021-09-06] MEDS: ENOXAPARIN SODIUM 40 MG/0.4 ML DISP.SYRIN SQ SCH (21:21)
[2021-09-06] MEDS: INSULIN GLARGINE,BASAGLAR 100 UNIT/ML INSULN.PEN SQ SCH (21:21)
[2021-09-07] MEDS: ALBUTEROL FS 2.5 MG/3 ML VIAL.NEB NEB SCH ×4 (01:52→20:03)
[2021-09-07] MEDS: IPRATROPIUM NEB FS 0.5 MG/2.5 ML AMPUL.NEB NEB SCH ×4 (01:52→20:04)
[2021-09-07] MEDS: BLOOD SUGAR DIAGNOSTIC 1 EACH STRIP IN SCH ×3 (05:39→18:00)
[2021-09-07] MEDS: OMEPRAZOLE 20 MG CAPSULE.DR GT SCH (05:39)
[2021-09-07] MEDS: POLYVINYL ALCOHOL 15 ML BOTTLE EACHEYE SCH ×3 (05:39→17:54)
[2021-09-07] MEDS: INSULIN ASPART/LISPRO 100 UNIT/ML CARTRIDGE SQ PRN ×3 (05:40→18:01)
[2021-09-07 07:25] VITALS: BP 113/65
[2021-09-07] MEDS: HYDROGEN PEROXIDE 480 ML BOTTLE TP SCH ×2 (08:39→21:19)
[2021-09-07] MEDS: ZINC SULFATE 220 MG CAPSULE GT SCH (09:00)
[2021-09-07] MEDS: LEVETIRACETAM SOL (5 ML) 100 MG/ML UDC GT SCH ×2 (09:00→21:00)
[2021-09-07] MEDS: ASCORBIC ACID 500 MG TABLET GT SCH (09:00)
[2021-09-07] MEDS: LISINOPRIL (5MG) 5 MG TABLET GT SCH (09:00)
[2021-09-07] MEDS: ACIDOPHILUS/BULGARICUS 1 EACH TAB.CHEW GT SCH ×2 (09:00→17:54)
[2021-09-07] MEDS: VITAMINS A AND D 56.7 GM TUBE TP SCH ×4 (09:00→21:00)
[2021-09-07] MEDS: FERROUS SULFATE - FOR SA ONLY 330 MG/7.5 ML UDC GT SCH (09:00)
[2021-09-07] MEDS: DILTIAZEM HCL 30 MG TABLET GT SCH ×2 (09:00→21:00)
[2021-09-07] MEDS: MULTIVIT W/MINERALS 1 TAB TABLET GT SCH (09:00)
[2021-09-07] MEDS: DOCUSATE SODIUM LIQ 100 MG/10 ML UDC GT SCH ×2 (09:00→17:54)
[2021-09-07] MEDS: SITAGLIPTIN PHOSPHATE 50 MG TABLET GT SCH (09:00)
[2021-09-07 13:10] VITALS: BP 132/83
[2021-09-07 20:00] VITALS: BP 117/81
[2021-09-07 22:00] VITALS: BP 117/81
[2021-09-07] MEDS: ATORVASTATIN 10 MG TABLET GT SCH (22:12)
[2021-09-07] MEDS: POLYETHYLENE GLYCOL 3350 17 GM POWD.PACK GT SCH (22:12)
[2021-09-07] MEDS: ENOXAPARIN SODIUM 40 MG/0.4 ML DISP.SYRIN SQ SCH (22:15)
[2021-09-07] MEDS: INSULIN GLARGINE,BASAGLAR 100 UNIT/ML INSULN.PEN SQ SCH (22:15)
--- NOTE | 2021-09-08 00:46 | NUR ---
RN NOTES: BS-111 NO INSULIN GIVEN PER SLIDING SCALE
[2021-09-08] MEDS: POLYVINYL ALCOHOL 15 ML BOTTLE EACHEYE SCH ×5 (00:47→23:20)
[2021-09-08] MEDS: IPRATROPIUM NEB FS 0.5 MG/2.5 ML AMPUL.NEB NEB SCH ×4 (01:48→20:27)
[2021-09-08] MEDS: ALBUTEROL FS 2.5 MG/3 ML VIAL.NEB NEB SCH ×4 (01:48→20:27)
[2021-09-08] MEDS: GLUCERNA 1.2 1,000 ML BOTTLE GT PRN (04:05)
[2021-09-08] MEDS: OMEPRAZOLE 20 MG CAPSULE.DR GT SCH (05:57)
[2021-09-08] MEDS: BLOOD SUGAR DIAGNOSTIC 1 EACH STRIP IN SCH ×5 (06:00→23:20)
[2021-09-08 07:55] VITALS: BP 103/55
[2021-09-08] MEDS: HYDROGEN PEROXIDE 480 ML BOTTLE TP SCH ×2 (08:16→20:27)
[2021-09-08] MEDS: MULTIVIT W/MINERALS 1 TAB TABLET GT SCH (09:00)
[2021-09-08] MEDS: ASCORBIC ACID 500 MG TABLET GT SCH (09:00)
[2021-09-08] MEDS: VITAMINS A AND D 56.7 GM TUBE TP SCH ×4 (09:00→21:38)
[2021-09-08] MEDS: LISINOPRIL (5MG) 5 MG TABLET GT SCH (09:00)
[2021-09-08] MEDS: ACIDOPHILUS/BULGARICUS 1 EACH TAB.CHEW GT SCH ×2 (09:00→17:00)
[2021-09-08] MEDS: LEVETIRACETAM SOL (5 ML) 100 MG/ML UDC GT SCH ×2 (09:00→21:38)
[2021-09-08] MEDS: ZINC SULFATE 220 MG CAPSULE GT SCH (09:00)
[2021-09-08] MEDS: DILTIAZEM HCL 30 MG TABLET GT SCH ×2 (09:00→21:00)
[2021-09-08] MEDS: DOCUSATE SODIUM LIQ 100 MG/10 ML UDC GT SCH ×2 (09:00→17:00)
[2021-09-08] MEDS: SITAGLIPTIN PHOSPHATE 50 MG TABLET GT SCH (09:00)
[2021-09-08] MEDS: FERROUS SULFATE - FOR SA ONLY 330 MG/7.5 ML UDC GT SCH (09:00)
[2021-09-08 12:35] VITALS: BP 112/60
--- NOTE | 2021-09-08 13:57 | NUR ---
Facility Update: ORACIO notified patient's daughter, Kelly via email that: A sub-acute employee tested positive for COVID-19. [facility] Sub-Acute will continue following [facility] Department of Public Health's infection control guidelines and all staff and patients will continue response testing and being screened for symptoms. ORACIO also sent latest visitation guidelines. ORACIO also notified family that there is a second COVID-19 Moderna Booster available for patients and to call the nurses station if interested.
[2021-09-08] MEDS: INSULIN ASPART/LISPRO 100 UNIT/ML CARTRIDGE SQ PRN ×3 (14:42→23:20)
[2021-09-08 20:00] VITALS: BP 108/74
[2021-09-08] MEDS: POLYETHYLENE GLYCOL 3350 17 GM POWD.PACK GT SCH (21:38)
[2021-09-08] MEDS: ATORVASTATIN 10 MG TABLET GT SCH (21:38)
[2021-09-08] MEDS: INSULIN GLARGINE,BASAGLAR 100 UNIT/ML INSULN.PEN SQ SCH (21:40)
[2021-09-08] MEDS: ENOXAPARIN SODIUM 40 MG/0.4 ML DISP.SYRIN SQ SCH (21:41)
[2021-09-09] MEDS: IPRATROPIUM NEB FS 0.5 MG/2.5 ML AMPUL.NEB NEB SCH ×4 (02:02→20:13)
[2021-09-09] MEDS: ALBUTEROL FS 2.5 MG/3 ML VIAL.NEB NEB SCH ×4 (02:02→20:13)
[2021-09-09] MEDS: INSULIN ASPART/LISPRO 100 UNIT/ML CARTRIDGE SQ PRN ×4 (05:43→23:16)
[2021-09-09] MEDS: BLOOD SUGAR DIAGNOSTIC 1 EACH STRIP IN SCH ×4 (05:43→23:16)
[2021-09-09] MEDS: POLYVINYL ALCOHOL 15 ML BOTTLE EACHEYE SCH ×4 (05:43→23:16)
[2021-09-09] MEDS: OMEPRAZOLE 20 MG CAPSULE.DR GT SCH (05:43)
[2021-09-09] MEDS: GLUCERNA 1.2 1,000 ML BOTTLE GT PRN (05:44)
[2021-09-09 07:58] VITALS: BP 105/55
[2021-09-09] MEDS: FERROUS SULFATE - FOR SA ONLY 330 MG/7.5 ML UDC GT SCH (08:48)
[2021-09-09] MEDS: SITAGLIPTIN PHOSPHATE 50 MG TABLET GT SCH (08:48)
[2021-09-09] MEDS: DOCUSATE SODIUM LIQ 100 MG/10 ML UDC GT SCH ×2 (08:48→16:33)
[2021-09-09] MEDS: LEVETIRACETAM SOL (5 ML) 100 MG/ML UDC GT SCH ×2 (08:48→21:22)
[2021-09-09] MEDS: LISINOPRIL (5MG) 5 MG TABLET GT SCH (08:48)
[2021-09-09] MEDS: DILTIAZEM HCL 30 MG TABLET GT SCH ×2 (08:48→21:22)
[2021-09-09] MEDS: ACIDOPHILUS/BULGARICUS 1 EACH TAB.CHEW GT SCH ×2 (08:48→16:33)
[2021-09-09] MEDS: ASCORBIC ACID 500 MG TABLET GT SCH (08:49)
[2021-09-09] MEDS: MULTIVIT W/MINERALS 1 TAB TABLET GT SCH (08:49)
[2021-09-09] MEDS: ZINC SULFATE 220 MG CAPSULE GT SCH (08:49)
[2021-09-09] MEDS: VITAMINS A AND D 56.7 GM TUBE TP SCH ×4 (08:49→21:23)
[2021-09-09] MEDS: HYDROGEN PEROXIDE 480 ML BOTTLE TP SCH ×2 (09:03→20:13)
[2021-09-09 12:26] VITALS: BP 115/57
[2021-09-09 20:07] VITALS: BP 119/75
[2021-09-09] MEDS: ATORVASTATIN 10 MG TABLET GT SCH (21:23)
[2021-09-09] MEDS: INSULIN GLARGINE,BASAGLAR 100 UNIT/ML INSULN.PEN SQ SCH (21:23)
[2021-09-09] MEDS: POLYETHYLENE GLYCOL 3350 17 GM POWD.PACK GT SCH (21:23)
[2021-09-09] MEDS: ENOXAPARIN SODIUM 40 MG/0.4 ML DISP.SYRIN SQ SCH (21:24)
[2021-09-10 00:26] VITALS: BP 125/70
[2021-09-10] MEDS: IPRATROPIUM NEB FS 0.5 MG/2.5 ML AMPUL.NEB NEB SCH ×4 (02:10→20:20)
[2021-09-10] MEDS: ALBUTEROL FS 2.5 MG/3 ML VIAL.NEB NEB SCH ×4 (02:10→20:20)
[2021-09-10] MEDS: BLOOD SUGAR DIAGNOSTIC 1 EACH STRIP IN SCH ×4 (05:15→23:03)
[2021-09-10] MEDS: POLYVINYL ALCOHOL 15 ML BOTTLE EACHEYE SCH ×4 (05:15→23:03)
[2021-09-10] MEDS: OMEPRAZOLE 20 MG CAPSULE.DR GT SCH (05:15)
[2021-09-10] MEDS: GLUCERNA 1.2 1,000 ML BOTTLE GT PRN (05:16)
[2021-09-10] MEDS: INSULIN ASPART/LISPRO 100 UNIT/ML CARTRIDGE SQ PRN ×2 (05:16→23:03)
[2021-09-10 07:34] VITALS: BP 111/70
[2021-09-10] MEDS: DOCUSATE SODIUM LIQ 100 MG/10 ML UDC GT SCH ×2 (08:08→15:42)
[2021-09-10] MEDS: DILTIAZEM HCL 30 MG TABLET GT SCH ×2 (08:08→20:15)
[2021-09-10] MEDS: FERROUS SULFATE - FOR SA ONLY 330 MG/7.5 ML UDC GT SCH (08:09)
[2021-09-10] MEDS: SITAGLIPTIN PHOSPHATE 50 MG TABLET GT SCH (08:09)
[2021-09-10] MEDS: ACIDOPHILUS/BULGARICUS 1 EACH TAB.CHEW GT SCH ×2 (08:10→15:43)
[2021-09-10] MEDS: LEVETIRACETAM SOL (5 ML) 100 MG/ML UDC GT SCH ×2 (08:10→20:15)
[2021-09-10] MEDS: MULTIVIT W/MINERALS 1 TAB TABLET GT SCH (08:11)
[2021-09-10] MEDS: LISINOPRIL (5MG) 5 MG TABLET GT SCH (08:11)
[2021-09-10] MEDS: ZINC SULFATE 220 MG CAPSULE GT SCH (08:11)
[2021-09-10] MEDS: ASCORBIC ACID 500 MG TABLET GT SCH (08:11)
[2021-09-10] MEDS: HYDROGEN PEROXIDE 480 ML BOTTLE TP SCH ×2 (08:16→20:20)
[2021-09-10] MEDS: VITAMINS A AND D 56.7 GM TUBE TP SCH ×4 (08:20→20:15)
[2021-09-10 10:00] VITALS: BP 111/70
[2021-09-10 11:15] VITALS: BP 107/74
[2021-09-10 20:06] VITALS: BP 130/54
[2021-09-10 20:49] VITALS: BP 112/59
[2021-09-10] MEDS: POLYETHYLENE GLYCOL 3350 17 GM POWD.PACK GT SCH (21:05)
[2021-09-10] MEDS: ATORVASTATIN 10 MG TABLET GT SCH (21:05)
[2021-09-10] MEDS: ENOXAPARIN SODIUM 40 MG/0.4 ML DISP.SYRIN SQ SCH (21:06)
[2021-09-10] MEDS: INSULIN GLARGINE,BASAGLAR 100 UNIT/ML INSULN.PEN SQ SCH (21:06)
[2021-09-11 00:15] VITALS: BP 96/50
[2021-09-11] MEDS: IPRATROPIUM NEB FS 0.5 MG/2.5 ML AMPUL.NEB NEB SCH ×4 (01:30→20:19)
[2021-09-11] MEDS: ALBUTEROL FS 2.5 MG/3 ML VIAL.NEB NEB SCH ×4 (01:30→20:19)
[2021-09-11] MEDS: POLYVINYL ALCOHOL 15 ML BOTTLE EACHEYE SCH ×4 (05:05→23:55)
[2021-09-11] MEDS: OMEPRAZOLE 20 MG CAPSULE.DR GT SCH (05:05)
[2021-09-11] MEDS: GLUCERNA 1.2 1,000 ML BOTTLE GT PRN ×2 (05:38→19:00)
[2021-09-11] MEDS: BLOOD SUGAR DIAGNOSTIC 1 EACH STRIP IN SCH ×4 (05:38→23:55)
[2021-09-11] MEDS: INSULIN ASPART/LISPRO 100 UNIT/ML CARTRIDGE SQ PRN ×3 (05:39→18:14)
[2021-09-11 07:24] VITALS: BP 110/57
[2021-09-11] MEDS: HYDROGEN PEROXIDE 480 ML BOTTLE TP SCH ×2 (09:00→21:35)
[2021-09-11] MEDS: FERROUS SULFATE - FOR SA ONLY 330 MG/7.5 ML UDC GT SCH (09:14)
[2021-09-11] MEDS: ACIDOPHILUS/BULGARICUS 1 EACH TAB.CHEW GT SCH ×2 (09:14→17:02)
[2021-09-11] MEDS: DOCUSATE SODIUM LIQ 100 MG/10 ML UDC GT SCH ×2 (09:14→17:02)
[2021-09-11] MEDS: LEVETIRACETAM SOL (5 ML) 100 MG/ML UDC GT SCH ×2 (09:14→20:32)
[2021-09-11] MEDS: SITAGLIPTIN PHOSPHATE 50 MG TABLET GT SCH (09:15)
[2021-09-11] MEDS: ASCORBIC ACID 500 MG TABLET GT SCH (09:16)
[2021-09-11] MEDS: MULTIVIT W/MINERALS 1 TAB TABLET GT SCH (09:16)
[2021-09-11] MEDS: ZINC SULFATE 220 MG CAPSULE GT SCH (09:17)
[2021-09-11] MEDS: VITAMINS A AND D 56.7 GM TUBE TP SCH ×4 (09:17→20:33)
[2021-09-11] MEDS: DILTIAZEM HCL 30 MG TABLET GT SCH ×2 (09:20→20:32)
[2021-09-11] MEDS: LISINOPRIL (5MG) 5 MG TABLET GT SCH (09:20)
[2021-09-11 11:52] VITALS: BP 110/57
[2021-09-11 19:51] VITALS: BP 129/69
[2021-09-11] MEDS: ATORVASTATIN 10 MG TABLET GT SCH (21:00)
[2021-09-11] MEDS: POLYETHYLENE GLYCOL 3350 17 GM POWD.PACK GT SCH (21:00)
[2021-09-11] MEDS: ENOXAPARIN SODIUM 40 MG/0.4 ML DISP.SYRIN SQ SCH (21:01)
[2021-09-11] MEDS: INSULIN GLARGINE,BASAGLAR 100 UNIT/ML INSULN.PEN SQ SCH (21:01)
[2021-09-12] MEDS: IPRATROPIUM NEB FS 0.5 MG/2.5 ML AMPUL.NEB NEB SCH ×4 (01:49→19:54)
[2021-09-12] MEDS: ALBUTEROL FS 2.5 MG/3 ML VIAL.NEB NEB SCH ×4 (01:49→19:54)
[2021-09-12] MEDS: BLOOD SUGAR DIAGNOSTIC 1 EACH STRIP IN SCH ×4 (05:23→23:25)
[2021-09-12] MEDS: GLUCERNA 1.2 1,000 ML BOTTLE GT PRN (05:23)
[2021-09-12] MEDS: POLYVINYL ALCOHOL 15 ML BOTTLE EACHEYE SCH ×4 (05:23→23:25)
[2021-09-12] MEDS: OMEPRAZOLE 20 MG CAPSULE.DR GT SCH (05:23)
[2021-09-12] MEDS: INSULIN ASPART/LISPRO 100 UNIT/ML CARTRIDGE SQ PRN ×3 (05:23→18:12)
[2021-09-12 07:23] VITALS: BP 105/55
[2021-09-12] MEDS: LISINOPRIL (5MG) 5 MG TABLET GT SCH (09:00)
[2021-09-12] MEDS: ASCORBIC ACID 500 MG TABLET GT SCH (09:00)
[2021-09-12] MEDS: SITAGLIPTIN PHOSPHATE 50 MG TABLET GT SCH (09:00)
[2021-09-12] MEDS: ZINC SULFATE 220 MG CAPSULE GT SCH (09:00)
[2021-09-12] MEDS: ACIDOPHILUS/BULGARICUS 1 EACH TAB.CHEW GT SCH ×2 (09:00→17:48)
[2021-09-12] MEDS: MULTIVIT W/MINERALS 1 TAB TABLET GT SCH (09:00)
[2021-09-12] MEDS: FERROUS SULFATE - FOR SA ONLY 330 MG/7.5 ML UDC GT SCH (09:00)
[2021-09-12] MEDS: DOCUSATE SODIUM LIQ 100 MG/10 ML UDC GT SCH ×2 (09:00→17:48)
[2021-09-12] MEDS: DILTIAZEM HCL 30 MG TABLET GT SCH ×2 (09:00→20:23)
[2021-09-12] MEDS: VITAMINS A AND D 56.7 GM TUBE TP SCH ×4 (09:00→20:24)
[2021-09-12] MEDS: LEVETIRACETAM SOL (5 ML) 100 MG/ML UDC GT SCH ×2 (09:00→20:25)
[2021-09-12] MEDS: HYDROGEN PEROXIDE 480 ML BOTTLE TP SCH ×2 (09:05→20:24)
[2021-09-12 13:18] VITALS: BP 115/70
[2021-09-12 20:43] VITALS: BP 97/69
[2021-09-12] MEDS: POLYETHYLENE GLYCOL 3350 17 GM POWD.PACK GT SCH (21:35)
[2021-09-12] MEDS: ATORVASTATIN 10 MG TABLET GT SCH (21:35)
[2021-09-12] MEDS: ENOXAPARIN SODIUM 40 MG/0.4 ML DISP.SYRIN SQ SCH (21:37)
[2021-09-12] MEDS: INSULIN GLARGINE,BASAGLAR 100 UNIT/ML INSULN.PEN SQ SCH (21:37)
[2021-09-13] MEDS: IPRATROPIUM NEB FS 0.5 MG/2.5 ML AMPUL.NEB NEB SCH ×4 (01:39→19:57)
[2021-09-13] MEDS: ALBUTEROL FS 2.5 MG/3 ML VIAL.NEB NEB SCH ×4 (01:39→19:57)
[2021-09-13] MEDS: BLOOD SUGAR DIAGNOSTIC 1 EACH STRIP IN SCH ×4 (05:13→23:15)
[2021-09-13] MEDS: POLYVINYL ALCOHOL 15 ML BOTTLE EACHEYE SCH ×4 (05:13→23:14)
[2021-09-13] MEDS: OMEPRAZOLE 20 MG CAPSULE.DR GT SCH (05:13)
[2021-09-13 07:34] VITALS: BP 125/67
[2021-09-13] MEDS: SITAGLIPTIN PHOSPHATE 50 MG TABLET GT SCH (09:00)
[2021-09-13] MEDS: ASCORBIC ACID 500 MG TABLET GT SCH (09:00)
[2021-09-13] MEDS: HYDROGEN PEROXIDE 480 ML BOTTLE TP SCH ×2 (09:00→21:18)
[2021-09-13] MEDS: LISINOPRIL (5MG) 5 MG TABLET GT SCH (09:00)
[2021-09-13] MEDS: MULTIVIT W/MINERALS 1 TAB TABLET GT SCH (09:00)
[2021-09-13] MEDS: DOCUSATE SODIUM LIQ 100 MG/10 ML UDC GT SCH ×2 (09:00→17:17)
[2021-09-13] MEDS: ZINC SULFATE 220 MG CAPSULE GT SCH (09:00)
[2021-09-13] MEDS: VITAMINS A AND D 56.7 GM TUBE TP SCH ×4 (09:00→21:14)
[2021-09-13] MEDS: ACIDOPHILUS/BULGARICUS 1 EACH TAB.CHEW GT SCH ×2 (09:00→17:17)
[2021-09-13] MEDS: LEVETIRACETAM SOL (5 ML) 100 MG/ML UDC GT SCH ×2 (09:00→21:14)
[2021-09-13] MEDS: FERROUS SULFATE - FOR SA ONLY 330 MG/7.5 ML UDC GT SCH (09:00)
[2021-09-13] MEDS: DILTIAZEM HCL 30 MG TABLET GT SCH ×2 (09:00→21:00)
[2021-09-13] MEDS: INSULIN ASPART/LISPRO 100 UNIT/ML CARTRIDGE SQ PRN ×3 (12:23→23:15)
[2021-09-13 13:16] VITALS: BP 114/70
[2021-09-13 20:34] VITALS: BP 98/67
[2021-09-13] MEDS: POLYETHYLENE GLYCOL 3350 17 GM POWD.PACK GT SCH (21:15)
[2021-09-13] MEDS: ATORVASTATIN 10 MG TABLET GT SCH (21:15)
[2021-09-13] MEDS: INSULIN GLARGINE,BASAGLAR 100 UNIT/ML INSULN.PEN SQ SCH (21:15)
[2021-09-13] MEDS: ENOXAPARIN SODIUM 40 MG/0.4 ML DISP.SYRIN SQ SCH (21:16)
[2021-09-14] MEDS: ALBUTEROL FS 2.5 MG/3 ML VIAL.NEB NEB SCH ×4 (01:41→20:22)
[2021-09-14] MEDS: IPRATROPIUM NEB FS 0.5 MG/2.5 ML AMPUL.NEB NEB SCH ×4 (01:41→20:22)
[2021-09-14] MEDS: BLOOD SUGAR DIAGNOSTIC 1 EACH STRIP IN SCH ×4 (05:45→23:26)
[2021-09-14] MEDS: OMEPRAZOLE 20 MG CAPSULE.DR GT SCH (05:45)
[2021-09-14] MEDS: INSULIN ASPART/LISPRO 100 UNIT/ML CARTRIDGE SQ PRN ×4 (05:45→23:26)
[2021-09-14] MEDS: POLYVINYL ALCOHOL 15 ML BOTTLE EACHEYE SCH ×4 (05:45→23:26)
[2021-09-14 07:33] VITALS: BP 106/60
[2021-09-14] MEDS: FERROUS SULFATE - FOR SA ONLY 330 MG/7.5 ML UDC GT SCH (09:00)
[2021-09-14] MEDS: VITAMINS A AND D 56.7 GM TUBE TP SCH ×4 (09:00→21:43)
[2021-09-14] MEDS: LEVETIRACETAM SOL (5 ML) 100 MG/ML UDC GT SCH ×2 (09:00→21:43)
[2021-09-14] MEDS: ZINC SULFATE 220 MG CAPSULE GT SCH (09:00)
[2021-09-14] MEDS: LISINOPRIL (5MG) 5 MG TABLET GT SCH (09:00)
[2021-09-14] MEDS: SITAGLIPTIN PHOSPHATE 50 MG TABLET GT SCH (09:00)
[2021-09-14] MEDS: ASCORBIC ACID 500 MG TABLET GT SCH (09:00)
[2021-09-14] MEDS: DOCUSATE SODIUM LIQ 100 MG/10 ML UDC GT SCH ×2 (09:00→16:55)
[2021-09-14] MEDS: MULTIVIT W/MINERALS 1 TAB TABLET GT SCH (09:00)
[2021-09-14] MEDS: DILTIAZEM HCL 30 MG TABLET GT SCH ×2 (09:00→21:00)
[2021-09-14] MEDS: ACIDOPHILUS/BULGARICUS 1 EACH TAB.CHEW GT SCH ×2 (09:00→16:55)
[2021-09-14] MEDS: HYDROGEN PEROXIDE 480 ML BOTTLE TP SCH ×2 (09:51→20:22)
[2021-09-14 14:21] VITALS: BP 120/69
[2021-09-14] MEDS: GLUCERNA 1.2 1,000 ML BOTTLE GT PRN (17:21)
[2021-09-14 19:30] VITALS: BP 101/58
[2021-09-14] MEDS: ATORVASTATIN 10 MG TABLET GT SCH (21:43)
[2021-09-14] MEDS: POLYETHYLENE GLYCOL 3350 17 GM POWD.PACK GT SCH (21:43)
[2021-09-14] MEDS: INSULIN GLARGINE,BASAGLAR 100 UNIT/ML INSULN.PEN SQ SCH (21:44)
[2021-09-14] MEDS: ENOXAPARIN SODIUM 40 MG/0.4 ML DISP.SYRIN SQ SCH (21:45)
[2021-09-15] MEDS: IPRATROPIUM NEB FS 0.5 MG/2.5 ML AMPUL.NEB NEB SCH ×4 (01:45→20:11)
[2021-09-15] MEDS: ALBUTEROL FS 2.5 MG/3 ML VIAL.NEB NEB SCH ×4 (01:45→20:11)
[2021-09-15] MEDS: INSULIN ASPART/LISPRO 100 UNIT/ML CARTRIDGE SQ PRN ×4 (05:26→23:51)
[2021-09-15] MEDS: OMEPRAZOLE 20 MG CAPSULE.DR GT SCH (05:26)
[2021-09-15] MEDS: POLYVINYL ALCOHOL 15 ML BOTTLE EACHEYE SCH ×4 (05:26→23:51)
[2021-09-15] MEDS: BLOOD SUGAR DIAGNOSTIC 1 EACH STRIP IN SCH ×4 (05:26→23:51)
[2021-09-15 07:10] VITALS: BP 114/71
--- NOTE | 2021-09-15 08:00 | NUR ---
RT NOTE: PT RECEIVED ALERT AND STABLE. REACTIVE TO STIM UNABLE TO FOLLOW INSTRUCTION. PT ON CA AND ON CORRECT LITER FLOW. BILATERAL CHEST RISE AND BREATH SOUNDS OBSERVED. BAG AND MASK AT BEDSIDE AND SPARE TRACH. PT NOT IN DISTRESS. WILL CONTINUE CURRENT THERAPY Addendum: 09/15/21 at 1018 by JESSICA RUSH RT Amended: Links added.
[2021-09-15] MEDS: HYDROGEN PEROXIDE 480 ML BOTTLE TP SCH ×2 (09:00→20:11)
[2021-09-15] MEDS: ACIDOPHILUS/BULGARICUS 1 EACH TAB.CHEW GT SCH ×2 (09:36→17:05)
[2021-09-15] MEDS: LEVETIRACETAM SOL (5 ML) 100 MG/ML UDC GT SCH ×2 (09:36→21:49)
[2021-09-15] MEDS: ASCORBIC ACID 500 MG TABLET GT SCH (09:36)
[2021-09-15] MEDS: ZINC SULFATE 220 MG CAPSULE GT SCH (09:36)
[2021-09-15] MEDS: LISINOPRIL (5MG) 5 MG TABLET GT SCH (09:36)
[2021-09-15] MEDS: MULTIVIT W/MINERALS 1 TAB TABLET GT SCH (09:36)
[2021-09-15] MEDS: FERROUS SULFATE - FOR SA ONLY 330 MG/7.5 ML UDC GT SCH (09:36)
[2021-09-15] MEDS: DILTIAZEM HCL 30 MG TABLET GT SCH ×2 (09:36→21:49)
[2021-09-15] MEDS: DOCUSATE SODIUM LIQ 100 MG/10 ML UDC GT SCH ×2 (09:36→17:05)
[2021-09-15] MEDS: SITAGLIPTIN PHOSPHATE 50 MG TABLET GT SCH (09:36)
[2021-09-15] MEDS: VITAMINS A AND D 56.7 GM TUBE TP SCH ×4 (09:36→21:50)
[2021-09-15 14:54] VITALS: BP 122/74
[2021-09-15] MEDS: GLUCERNA 1.2 1,000 ML BOTTLE GT PRN (17:06)
[2021-09-15 20:37] VITALS: BP 113/64
[2021-09-15] MEDS: ATORVASTATIN 10 MG TABLET GT SCH (21:50)
[2021-09-15] MEDS: POLYETHYLENE GLYCOL 3350 17 GM POWD.PACK GT SCH (21:50)
[2021-09-15] MEDS: INSULIN GLARGINE,BASAGLAR 100 UNIT/ML INSULN.PEN SQ SCH (21:51)
[2021-09-15] MEDS: ENOXAPARIN SODIUM 40 MG/0.4 ML DISP.SYRIN SQ SCH (21:52)
[2021-09-16] MEDS: ALBUTEROL FS 2.5 MG/3 ML VIAL.NEB NEB SCH ×4 (01:52→20:58)
[2021-09-16] MEDS: IPRATROPIUM NEB FS 0.5 MG/2.5 ML AMPUL.NEB NEB SCH ×4 (01:52→20:58)
[2021-09-16] MEDS: POLYVINYL ALCOHOL 15 ML BOTTLE EACHEYE SCH ×3 (05:28→17:56)
[2021-09-16] MEDS: OMEPRAZOLE 20 MG CAPSULE.DR GT SCH (05:28)
[2021-09-16] MEDS: BLOOD SUGAR DIAGNOSTIC 1 EACH STRIP IN SCH ×3 (05:28→17:56)
[2021-09-16] MEDS: INSULIN ASPART/LISPRO 100 UNIT/ML CARTRIDGE SQ PRN ×3 (05:29→17:56)
[2021-09-16 07:30] VITALS: BP 105/59
--- NOTE | 2021-09-16 07:50 | NUR ---
RT NOTE: PT RECEIVED ALERT AND STABLE. REACTIVE TO STIM UNABLE TO FOLLOW INSTRUCTION. PT ON CA AND ON CORRECT LITER FLOW. BILATERAL CHEST RISE AND BREATH SOUNDS OBSERVED. BAG AND MASK AT BEDSIDE AND SPARE TRACH. PT NOT IN DISTRESS. WILL CONTINUE CURRENT THERAPY Addendum: 09/16/21 at 0951 by JESSICA RUSH RT Amended: Links added.
[2021-09-16] MEDS: DILTIAZEM HCL 30 MG TABLET GT SCH ×2 (08:41→21:30)
[2021-09-16] MEDS: FERROUS SULFATE - FOR SA ONLY 330 MG/7.5 ML UDC GT SCH (08:42)
[2021-09-16] MEDS: LEVETIRACETAM SOL (5 ML) 100 MG/ML UDC GT SCH ×2 (08:42→21:30)
[2021-09-16] MEDS: DOCUSATE SODIUM LIQ 100 MG/10 ML UDC GT SCH ×2 (08:42→17:56)
[2021-09-16] MEDS: ACIDOPHILUS/BULGARICUS 1 EACH TAB.CHEW GT SCH ×2 (08:42→17:56)
[2021-09-16] MEDS: SITAGLIPTIN PHOSPHATE 50 MG TABLET GT SCH (08:42)
[2021-09-16] MEDS: MULTIVIT W/MINERALS 1 TAB TABLET GT SCH (08:43)
[2021-09-16] MEDS: LISINOPRIL (5MG) 5 MG TABLET GT SCH (08:43)
[2021-09-16] MEDS: ASCORBIC ACID 500 MG TABLET GT SCH (08:43)
[2021-09-16] MEDS: VITAMINS A AND D 56.7 GM TUBE TP SCH ×4 (08:44→21:30)
[2021-09-16] MEDS: ZINC SULFATE 220 MG CAPSULE GT SCH (08:45)
[2021-09-16] MEDS: HYDROGEN PEROXIDE 480 ML BOTTLE TP SCH ×2 (09:30→20:58)
[2021-09-16 12:14] VITALS: BP 105/66
[2021-09-16] MEDS: GLUCERNA 1.2 1,000 ML BOTTLE GT PRN (17:56)
[2021-09-16 20:31] VITALS: BP 132/77
[2021-09-16] MEDS: POLYETHYLENE GLYCOL 3350 17 GM POWD.PACK GT SCH (22:04)
[2021-09-16] MEDS: ATORVASTATIN 10 MG TABLET GT SCH (22:04)
[2021-09-16] MEDS: ENOXAPARIN SODIUM 40 MG/0.4 ML DISP.SYRIN SQ SCH (22:05)
[2021-09-16] MEDS: INSULIN GLARGINE,BASAGLAR 100 UNIT/ML INSULN.PEN SQ SCH (22:05)
[2021-09-17] MEDS: BLOOD SUGAR DIAGNOSTIC 1 EACH STRIP IN SCH ×5 (00:28→23:56)
[2021-09-17] MEDS: INSULIN ASPART/LISPRO 100 UNIT/ML CARTRIDGE SQ PRN ×5 (00:28→23:56)
[2021-09-17] MEDS: POLYVINYL ALCOHOL 15 ML BOTTLE EACHEYE SCH ×5 (00:28→23:55)
[2021-09-17] MEDS: IPRATROPIUM NEB FS 0.5 MG/2.5 ML AMPUL.NEB NEB SCH ×4 (01:36→19:54)
[2021-09-17] MEDS: ALBUTEROL FS 2.5 MG/3 ML VIAL.NEB NEB SCH ×4 (01:36→19:54)
[2021-09-17 01:45] VITALS: BP 115/57
[2021-09-17] MEDS: OMEPRAZOLE 20 MG CAPSULE.DR GT SCH (05:32)
[2021-09-17 07:13] LABS: MAGNESIUM 2.3 mg/dL (1.8-2.4); PHOSPHORUS 4.4 mg/dL (2.5-4.9); POTASSIUM 5.1 mmol/L (3.5-5.1)
[2021-09-17 07:33] VITALS: BP 105/56
[2021-09-17 07:47] LABS: BASOPHILS % (AUTO) 0.9 % (0.0-2.0); EOSINOPHILS % (AUTO) 6.1 % (0.0-6.0); HEMATOCRIT 40 % (33-45); HEMOGLOBIN 13.1 g/dL (11.5-14.8); LYMPHOCYTES # (AUTO) 2.3 K/uL (0.8-4.8); MEAN CORPUSCULAR HGB CONC 33 g/dl (31.0-36.0); MEAN CORPUSCULAR VOLUME 92 fL (82-100); MONOCYTES # (AUTO) 0.4 K/uL (0.1-1.30); MONOCYTES % (AUTO) 8.9 % (2.0-12.0); NEUTROPHILS # (AUTO) 1.9 K/uL (1.8-8.9); NEUTROPHILS % (AUTO) 38.1 % (43.0-81.0); PLATELET COUNT (AUTO) 261 K/uL (150-450); RED BLOOD CELL COUNT(AUTO) 4.29 MIL/uL (4.0-5.2)
[2021-09-17] MEDS: HYDROGEN PEROXIDE 480 ML BOTTLE TP SCH ×2 (08:38→19:54)
[2021-09-17] MEDS: DILTIAZEM HCL 30 MG TABLET GT SCH ×2 (09:00→21:00)
[2021-09-17] MEDS: LEVETIRACETAM SOL (5 ML) 100 MG/ML UDC GT SCH ×2 (09:11→21:19)
[2021-09-17] MEDS: SITAGLIPTIN PHOSPHATE 50 MG TABLET GT SCH (09:11)
[2021-09-17] MEDS: DOCUSATE SODIUM LIQ 100 MG/10 ML UDC GT SCH ×2 (09:11→17:21)
[2021-09-17] MEDS: ACIDOPHILUS/BULGARICUS 1 EACH TAB.CHEW GT SCH ×2 (09:11→17:21)
[2021-09-17] MEDS: FERROUS SULFATE - FOR SA ONLY 330 MG/7.5 ML UDC GT SCH (09:11)
[2021-09-17] MEDS: LISINOPRIL (5MG) 5 MG TABLET GT SCH (09:12)
[2021-09-17] MEDS: VITAMINS A AND D 56.7 GM TUBE TP SCH ×4 (09:13→21:19)
[2021-09-17] MEDS: ASCORBIC ACID 500 MG TABLET GT SCH (09:13)
[2021-09-17] MEDS: ZINC SULFATE 220 MG CAPSULE GT SCH (09:13)
[2021-09-17] MEDS: MULTIVIT W/MINERALS 1 TAB TABLET GT SCH (09:13)
[2021-09-17 11:34] VITALS: BP 134/60
--- NOTE | 2021-09-17 15:30 | NUR ---
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 [facility] Sub-Acute will continue following [facility] Department of Public Health's infection control guidelines and all staff and patients will continue response testing and being screened for symptoms. ORACIO also sent latest visitation guidelines. ORACIO also notified family that Second Booster (Moderna) is available for patients and to call nurse's station to give consent if they are interested.
[2021-09-17] MEDS: GLUCERNA 1.2 1,000 ML BOTTLE GT PRN (17:22)
[2021-09-17 19:32] VITALS: BP 106/57
[2021-09-17 19:39] VITALS: BP 106/57
[2021-09-17] MEDS: POLYETHYLENE GLYCOL 3350 17 GM POWD.PACK GT SCH (21:19)
[2021-09-17] MEDS: ATORVASTATIN 10 MG TABLET GT SCH (21:19)
[2021-09-17] MEDS: INSULIN GLARGINE,BASAGLAR 100 UNIT/ML INSULN.PEN SQ SCH (21:21)
[2021-09-17] MEDS: ENOXAPARIN SODIUM 40 MG/0.4 ML DISP.SYRIN SQ SCH (21:21)
[2021-09-18 00:17] VITALS: BP 103/68
[2021-09-18] MEDS: IPRATROPIUM NEB FS 0.5 MG/2.5 ML AMPUL.NEB NEB SCH ×2 (00:41→20:07)
[2021-09-18] MEDS: ALBUTEROL FS 2.5 MG/3 ML VIAL.NEB NEB SCH ×2 (00:41→20:07)
[2021-09-18] MEDS: OMEPRAZOLE 20 MG CAPSULE.DR GT SCH (05:35)
[2021-09-18] MEDS: BLOOD SUGAR DIAGNOSTIC 1 EACH STRIP IN SCH ×4 (05:35→23:20)
[2021-09-18] MEDS: POLYVINYL ALCOHOL 15 ML BOTTLE EACHEYE SCH ×4 (05:35→23:20)
[2021-09-18] MEDS: INSULIN ASPART/LISPRO 100 UNIT/ML CARTRIDGE SQ PRN ×3 (05:35→23:20)
[2021-09-18 07:32] VITALS: BP 102/58
[2021-09-18] MEDS: DOCUSATE SODIUM LIQ 100 MG/10 ML UDC GT SCH ×2 (08:51→16:46)
[2021-09-18] MEDS: FERROUS SULFATE - FOR SA ONLY 330 MG/7.5 ML UDC GT SCH (08:52)
[2021-09-18] MEDS: ACIDOPHILUS/BULGARICUS 1 EACH TAB.CHEW GT SCH ×2 (08:52→16:46)
[2021-09-18] MEDS: LEVETIRACETAM SOL (5 ML) 100 MG/ML UDC GT SCH ×2 (08:52→20:38)
[2021-09-18] MEDS: SITAGLIPTIN PHOSPHATE 50 MG TABLET GT SCH (08:52)
[2021-09-18] MEDS: VITAMINS A AND D 56.7 GM TUBE TP SCH ×4 (08:53→20:38)
[2021-09-18] MEDS: MULTIVIT W/MINERALS 1 TAB TABLET GT SCH (08:53)
[2021-09-18] MEDS: ZINC SULFATE 220 MG CAPSULE GT SCH (08:53)
[2021-09-18] MEDS: ASCORBIC ACID 500 MG TABLET GT SCH (08:53)
[2021-09-18] MEDS: LISINOPRIL (5MG) 5 MG TABLET GT SCH (08:53)
[2021-09-18] MEDS: DILTIAZEM HCL 30 MG TABLET GT SCH ×2 (09:00→20:38)
[2021-09-18 12:39] VITALS: BP 144/69
[2021-09-18] MEDS: GLUCERNA 1.2 1,000 ML BOTTLE GT PRN (18:07)
[2021-09-18 19:28] VITALS: BP 125/58
[2021-09-18] MEDS: HYDROGEN PEROXIDE 480 ML BOTTLE TP SCH (20:07)
[2021-09-18] MEDS: POLYETHYLENE GLYCOL 3350 17 GM POWD.PACK GT SCH (21:21)
[2021-09-18] MEDS: ATORVASTATIN 10 MG TABLET GT SCH (21:21)
[2021-09-18] MEDS: INSULIN GLARGINE,BASAGLAR 100 UNIT/ML INSULN.PEN SQ SCH (21:22)
[2021-09-18] MEDS: ENOXAPARIN SODIUM 40 MG/0.4 ML DISP.SYRIN SQ SCH (21:23)
[2021-09-18 23:14] VITALS: BP 122/69
[2021-09-19] MEDS: ALBUTEROL FS 2.5 MG/3 ML VIAL.NEB NEB SCH ×4 (01:33→20:17)
[2021-09-19] MEDS: IPRATROPIUM NEB FS 0.5 MG/2.5 ML AMPUL.NEB NEB SCH ×4 (01:33→20:17)
[2021-09-19] MEDS: INSULIN ASPART/LISPRO 100 UNIT/ML CARTRIDGE SQ PRN ×2 (05:36→23:27)
[2021-09-19] MEDS: BLOOD SUGAR DIAGNOSTIC 1 EACH STRIP IN SCH ×4 (05:36→23:26)
[2021-09-19] MEDS: OMEPRAZOLE 20 MG CAPSULE.DR GT SCH (05:36)
[2021-09-19] MEDS: POLYVINYL ALCOHOL 15 ML BOTTLE EACHEYE SCH ×4 (05:36→23:26)
[2021-09-19 07:27] VITALS: BP 99/57
[2021-09-19] MEDS: SITAGLIPTIN PHOSPHATE 50 MG TABLET GT SCH (09:00)
[2021-09-19] MEDS: DILTIAZEM HCL 30 MG TABLET GT SCH ×2 (09:00→20:11)
[2021-09-19] MEDS: ACIDOPHILUS/BULGARICUS 1 EACH TAB.CHEW GT SCH ×2 (09:00→17:54)
[2021-09-19] MEDS: MULTIVIT W/MINERALS 1 TAB TABLET GT SCH (09:00)
[2021-09-19] MEDS: DOCUSATE SODIUM LIQ 100 MG/10 ML UDC GT SCH ×2 (09:00→17:54)
[2021-09-19] MEDS: ASCORBIC ACID 500 MG TABLET GT SCH (09:00)
[2021-09-19] MEDS: LEVETIRACETAM SOL (5 ML) 100 MG/ML UDC GT SCH ×2 (09:00→20:12)
[2021-09-19] MEDS: FERROUS SULFATE - FOR SA ONLY 330 MG/7.5 ML UDC GT SCH (09:00)
[2021-09-19] MEDS: HYDROGEN PEROXIDE 480 ML BOTTLE TP SCH ×2 (09:00→20:17)
[2021-09-19] MEDS: VITAMINS A AND D 56.7 GM TUBE TP SCH ×4 (09:00→20:13)
[2021-09-19] MEDS: ZINC SULFATE 220 MG CAPSULE GT SCH (09:00)
[2021-09-19] MEDS: LISINOPRIL (5MG) 5 MG TABLET GT SCH (09:00)
[2021-09-19 12:47] VITALS: BP 111/65
[2021-09-19 19:46] VITALS: BP 111/60
[2021-09-19] MEDS: ATORVASTATIN 10 MG TABLET GT SCH (21:12)
[2021-09-19] MEDS: POLYETHYLENE GLYCOL 3350 17 GM POWD.PACK GT SCH (21:12)
[2021-09-19] MEDS: INSULIN GLARGINE,BASAGLAR 100 UNIT/ML INSULN.PEN SQ SCH (21:13)
[2021-09-19] MEDS: ENOXAPARIN SODIUM 40 MG/0.4 ML DISP.SYRIN SQ SCH (21:14)
[2021-09-20] MEDS: IPRATROPIUM NEB FS 0.5 MG/2.5 ML AMPUL.NEB NEB SCH ×4 (01:43→20:01)
[2021-09-20] MEDS: ALBUTEROL FS 2.5 MG/3 ML VIAL.NEB NEB SCH ×4 (01:43→20:01)
[2021-09-20] MEDS: OMEPRAZOLE 20 MG CAPSULE.DR GT SCH (05:32)
[2021-09-20] MEDS: BLOOD SUGAR DIAGNOSTIC 1 EACH STRIP IN SCH ×3 (05:32→17:54)
[2021-09-20] MEDS: POLYVINYL ALCOHOL 15 ML BOTTLE EACHEYE SCH ×3 (05:32→17:54)
[2021-09-20] MEDS: INSULIN ASPART/LISPRO 100 UNIT/ML CARTRIDGE SQ PRN ×3 (05:33→17:54)
[2021-09-20] MEDS: GLUCERNA 1.2 1,000 ML BOTTLE GT PRN (05:49)
[2021-09-20 07:09] VITALS: BP 133/73
[2021-09-20] MEDS: HYDROGEN PEROXIDE 480 ML BOTTLE TP SCH ×2 (08:29→21:58)
[2021-09-20] MEDS: SITAGLIPTIN PHOSPHATE 50 MG TABLET GT SCH (09:39)
[2021-09-20] MEDS: VITAMINS A AND D 56.7 GM TUBE TP SCH ×4 (09:39→20:17)
[2021-09-20] MEDS: FERROUS SULFATE - FOR SA ONLY 330 MG/7.5 ML UDC GT SCH (09:39)
[2021-09-20] MEDS: ZINC SULFATE 220 MG CAPSULE GT SCH (09:39)
[2021-09-20] MEDS: DOCUSATE SODIUM LIQ 100 MG/10 ML UDC GT SCH ×2 (09:39→17:54)
[2021-09-20] MEDS: ACIDOPHILUS/BULGARICUS 1 EACH TAB.CHEW GT SCH ×2 (09:39→17:54)
[2021-09-20] MEDS: MULTIVIT W/MINERALS 1 TAB TABLET GT SCH (09:39)
[2021-09-20] MEDS: DILTIAZEM HCL 30 MG TABLET GT SCH ×2 (09:39→20:15)
[2021-09-20] MEDS: ASCORBIC ACID 500 MG TABLET GT SCH (09:39)
[2021-09-20] MEDS: LEVETIRACETAM SOL (5 ML) 100 MG/ML UDC GT SCH ×2 (09:39→20:17)
[2021-09-20] MEDS: LISINOPRIL (5MG) 5 MG TABLET GT SCH (09:39)
--- NOTE | 2021-09-20 12:19 | NUR ---
PATIENT MONTHLY TRACH CHANGED DONE AND ASSET MANAGEMENT ANALYST ABBY NOTIFIED. EQUAL BREATH SOUND NOTED AND BILATERAL CHEST NOTED. NO SOB. Addendum: 09/20/21 at 1223 by MIGUEL FALLON RT Amended: Links added.
--- NOTE | 2021-09-20 13:27 | NUR ---
Monthly progress notes.Resident is passive, unable to make needs known.Listens to music most of the time.Received daily visit for sensory stimulation, music,tv,audio tapes, reality orientation.Continue to provide these activities as needed.
[2021-09-20 19:49] VITALS: BP 117/60
[2021-09-20] MEDS: INSULIN GLARGINE,BASAGLAR 100 UNIT/ML INSULN.PEN SQ SCH (21:24)
[2021-09-20] MEDS: ATORVASTATIN 10 MG TABLET GT SCH (21:24)
[2021-09-20] MEDS: POLYETHYLENE GLYCOL 3350 17 GM POWD.PACK GT SCH (21:24)
[2021-09-20] MEDS: ENOXAPARIN SODIUM 40 MG/0.4 ML DISP.SYRIN SQ SCH (21:25)
[2021-09-21] MEDS: BLOOD SUGAR DIAGNOSTIC 1 EACH STRIP IN SCH ×5 (00:30→23:53)
[2021-09-21] MEDS: POLYVINYL ALCOHOL 15 ML BOTTLE EACHEYE SCH ×5 (00:30→23:52)
[2021-09-21] MEDS: ALBUTEROL FS 2.5 MG/3 ML VIAL.NEB NEB SCH ×4 (01:39→20:01)
[2021-09-21] MEDS: IPRATROPIUM NEB FS 0.5 MG/2.5 ML AMPUL.NEB NEB SCH ×4 (01:39→20:01)
[2021-09-21] MEDS: OMEPRAZOLE 20 MG CAPSULE.DR GT SCH (05:10)
[2021-09-21] MEDS: INSULIN ASPART/LISPRO 100 UNIT/ML CARTRIDGE SQ PRN ×2 (05:10→23:53)
[2021-09-21] MEDS: GLUCERNA 1.2 1,000 ML BOTTLE GT PRN (05:11)
[2021-09-21 07:14] VITALS: BP 103/63
[2021-09-21] MEDS: DILTIAZEM HCL 30 MG TABLET GT SCH ×2 (09:00→20:12)
[2021-09-21] MEDS: HYDROGEN PEROXIDE 480 ML BOTTLE TP SCH ×2 (09:02→21:12)
[2021-09-21] MEDS: VITAMINS A AND D 56.7 GM TUBE TP SCH ×4 (09:54→20:13)
[2021-09-21] MEDS: ACIDOPHILUS/BULGARICUS 1 EACH TAB.CHEW GT SCH ×2 (09:54→17:25)
[2021-09-21] MEDS: LISINOPRIL (5MG) 5 MG TABLET GT SCH (09:54)
[2021-09-21] MEDS: FERROUS SULFATE - FOR SA ONLY 330 MG/7.5 ML UDC GT SCH (09:54)
[2021-09-21] MEDS: LEVETIRACETAM SOL (5 ML) 100 MG/ML UDC GT SCH ×2 (09:54→20:13)
[2021-09-21] MEDS: MULTIVIT W/MINERALS 1 TAB TABLET GT SCH (09:54)
[2021-09-21] MEDS: SITAGLIPTIN PHOSPHATE 50 MG TABLET GT SCH (09:54)
[2021-09-21] MEDS: ZINC SULFATE 220 MG CAPSULE GT SCH (09:54)
[2021-09-21] MEDS: ASCORBIC ACID 500 MG TABLET GT SCH (09:54)
[2021-09-21] MEDS: DOCUSATE SODIUM LIQ 100 MG/10 ML UDC GT SCH ×2 (09:54→17:25)
[2021-09-21 12:03] VITALS: BP 128/73
[2021-09-21 20:40] VITALS: BP 115/65
[2021-09-21] MEDS: ATORVASTATIN 10 MG TABLET GT SCH (21:12)
[2021-09-21] MEDS: POLYETHYLENE GLYCOL 3350 17 GM POWD.PACK GT SCH (21:12)
[2021-09-21] MEDS: INSULIN GLARGINE,BASAGLAR 100 UNIT/ML INSULN.PEN SQ SCH (21:14)
[2021-09-21] MEDS: ENOXAPARIN SODIUM 40 MG/0.4 ML DISP.SYRIN SQ SCH (21:15)
[2021-09-22] MEDS: IPRATROPIUM NEB FS 0.5 MG/2.5 ML AMPUL.NEB NEB SCH ×5 (01:42→19:48)
[2021-09-22] MEDS: ALBUTEROL FS 2.5 MG/3 ML VIAL.NEB NEB SCH ×5 (01:42→19:48)
[2021-09-22] MEDS: POLYVINYL ALCOHOL 15 ML BOTTLE EACHEYE SCH ×4 (05:19→23:27)
[2021-09-22] MEDS: BLOOD SUGAR DIAGNOSTIC 1 EACH STRIP IN SCH ×4 (05:19→23:28)
[2021-09-22] MEDS: OMEPRAZOLE 20 MG CAPSULE.DR GT SCH (05:19)
[2021-09-22] MEDS: INSULIN ASPART/LISPRO 100 UNIT/ML CARTRIDGE SQ PRN ×4 (05:19→23:28)
[2021-09-22] MEDS: GLUCERNA 1.2 1,000 ML BOTTLE GT PRN (05:55)
[2021-09-22 07:34] VITALS: BP 136/71
[2021-09-22] MEDS: DILTIAZEM HCL 30 MG TABLET GT SCH ×2 (09:00→21:00)
[2021-09-22] MEDS: HYDROGEN PEROXIDE 480 ML BOTTLE TP SCH ×2 (09:14→19:48)
--- NOTE | 2021-09-22 09:17 | NUR ---
PATIENT ON C/A 28% WITH SHILEY 6 TRACH FOUND INTACT. PATIENT APPEARED W/O DISTRESS. Addendum: 09/22/21 at 917 by MIGUEL FALLON RT Amended: Links added. Addendum: 09/22/21 at 926 by MIGUEL FALLON RT ERROR IN TRACH SIZE PATIENT IS FOUND WITH PORTEX 9 NOT SHILEY 6.
[2021-09-22] MEDS: ACIDOPHILUS/BULGARICUS 1 EACH TAB.CHEW GT SCH ×2 (09:25→17:20)
[2021-09-22] MEDS: VITAMINS A AND D 56.7 GM TUBE TP SCH ×4 (09:25→21:26)
[2021-09-22] MEDS: SITAGLIPTIN PHOSPHATE 50 MG TABLET GT SCH (09:25)
[2021-09-22] MEDS: DOCUSATE SODIUM LIQ 100 MG/10 ML UDC GT SCH ×2 (09:25→17:20)
[2021-09-22] MEDS: MULTIVIT W/MINERALS 1 TAB TABLET GT SCH (09:25)
[2021-09-22] MEDS: ASCORBIC ACID 500 MG TABLET GT SCH (09:25)
[2021-09-22] MEDS: FERROUS SULFATE - FOR SA ONLY 330 MG/7.5 ML UDC GT SCH (09:25)
[2021-09-22] MEDS: ZINC SULFATE 220 MG CAPSULE GT SCH (09:25)
[2021-09-22] MEDS: LEVETIRACETAM SOL (5 ML) 100 MG/ML UDC GT SCH ×2 (09:25→21:26)
[2021-09-22] MEDS: LISINOPRIL (5MG) 5 MG TABLET GT SCH (09:25)
[2021-09-22 13:21] VITALS: BP 114/75
[2021-09-22 19:33] VITALS: BP 107/60
[2021-09-22] MEDS: POLYETHYLENE GLYCOL 3350 17 GM POWD.PACK GT SCH (21:26)
[2021-09-22] MEDS: ATORVASTATIN 10 MG TABLET GT SCH (21:26)
[2021-09-22] MEDS: ENOXAPARIN SODIUM 40 MG/0.4 ML DISP.SYRIN SQ SCH (21:28)
[2021-09-22] MEDS: INSULIN GLARGINE,BASAGLAR 100 UNIT/ML INSULN.PEN SQ SCH (21:28)
[2021-09-22 23:34] VITALS: BP 123/69
[2021-09-23] MEDS: ALBUTEROL FS 2.5 MG/3 ML VIAL.NEB NEB SCH ×4 (02:06→20:08)
[2021-09-23] MEDS: IPRATROPIUM NEB FS 0.5 MG/2.5 ML AMPUL.NEB NEB SCH ×4 (02:06→20:08)
--- NOTE | 2021-09-23 04:53 | NUR ---
PATIENT RECEIVED ON 28% AEROSOL T-TUBE, TOLERATING WITH NO DISTRESS/SOB NOTED. SUCTIONED FOR MINIMAL, THICK, WHITE SECRETIONS. GIVEN IN-LINE TREATMENTS WITH NO ADVERSE REACTIONS. AMBU BAG AT BEDSIDE. TRACH CARE DONE. Addendum: 09/23/21 at 0453 by KAISER LAW RT Amended: Links added.
[2021-09-23] MEDS: BLOOD SUGAR DIAGNOSTIC 1 EACH STRIP IN SCH ×4 (05:38→23:32)
[2021-09-23] MEDS: OMEPRAZOLE 20 MG CAPSULE.DR GT SCH (05:38)
[2021-09-23] MEDS: POLYVINYL ALCOHOL 15 ML BOTTLE EACHEYE SCH ×4 (05:38→23:32)
[2021-09-23] MEDS: GLUCERNA 1.2 1,000 ML BOTTLE GT PRN (05:39)
[2021-09-23] MEDS: INSULIN ASPART/LISPRO 100 UNIT/ML CARTRIDGE SQ PRN ×4 (05:39→23:32)
[2021-09-23 08:00] VITALS: BP 108/53
[2021-09-23] MEDS: DILTIAZEM HCL 30 MG TABLET GT SCH ×2 (09:00→21:24)
[2021-09-23] MEDS: ASCORBIC ACID 500 MG TABLET GT SCH (09:06)
[2021-09-23] MEDS: LISINOPRIL (5MG) 5 MG TABLET GT SCH (09:06)
[2021-09-23] MEDS: FERROUS SULFATE - FOR SA ONLY 330 MG/7.5 ML UDC GT SCH (09:06)
[2021-09-23] MEDS: ZINC SULFATE 220 MG CAPSULE GT SCH (09:06)
[2021-09-23] MEDS: SITAGLIPTIN PHOSPHATE 50 MG TABLET GT SCH (09:06)
[2021-09-23] MEDS: LEVETIRACETAM SOL (5 ML) 100 MG/ML UDC GT SCH ×2 (09:06→21:24)
[2021-09-23] MEDS: ACIDOPHILUS/BULGARICUS 1 EACH TAB.CHEW GT SCH ×2 (09:06→17:07)
[2021-09-23] MEDS: MULTIVIT W/MINERALS 1 TAB TABLET GT SCH (09:06)
[2021-09-23] MEDS: DOCUSATE SODIUM LIQ 100 MG/10 ML UDC GT SCH ×2 (09:06→17:07)
[2021-09-23] MEDS: VITAMINS A AND D 56.7 GM TUBE TP SCH ×4 (09:09→21:25)
[2021-09-23] MEDS: HYDROGEN PEROXIDE 480 ML BOTTLE TP SCH ×2 (09:21→20:08)
[2021-09-23 19:30] VITALS: BP 135/72
[2021-09-23 19:38] VITALS: BP 114/63
[2021-09-23] MEDS: POLYETHYLENE GLYCOL 3350 17 GM POWD.PACK GT SCH (21:25)
[2021-09-23] MEDS: ATORVASTATIN 10 MG TABLET GT SCH (21:25)
[2021-09-23] MEDS: INSULIN GLARGINE,BASAGLAR 100 UNIT/ML INSULN.PEN SQ SCH (21:25)
[2021-09-23] MEDS: ENOXAPARIN SODIUM 40 MG/0.4 ML DISP.SYRIN SQ SCH (21:26)
[2021-09-24 00:25] VITALS: BP 105/59
[2021-09-24] MEDS: ALBUTEROL FS 2.5 MG/3 ML VIAL.NEB NEB SCH ×4 (01:54→20:05)
[2021-09-24] MEDS: IPRATROPIUM NEB FS 0.5 MG/2.5 ML AMPUL.NEB NEB SCH ×4 (01:54→20:05)
[2021-09-24] MEDS: POLYVINYL ALCOHOL 15 ML BOTTLE EACHEYE SCH ×3 (05:25→17:39)
[2021-09-24] MEDS: OMEPRAZOLE 20 MG CAPSULE.DR GT SCH (05:25)
[2021-09-24] MEDS: BLOOD SUGAR DIAGNOSTIC 1 EACH STRIP IN SCH ×3 (05:25→17:39)
[2021-09-24] MEDS: INSULIN ASPART/LISPRO 100 UNIT/ML CARTRIDGE SQ PRN (05:26)
[2021-09-24 08:00] VITALS: BP 100/58
[2021-09-24] MEDS: DILTIAZEM HCL 30 MG TABLET GT SCH ×2 (08:12→21:04)
[2021-09-24] MEDS: FERROUS SULFATE - FOR SA ONLY 330 MG/7.5 ML UDC GT SCH (08:15)
[2021-09-24] MEDS: SITAGLIPTIN PHOSPHATE 50 MG TABLET GT SCH (08:15)
[2021-09-24] MEDS: DOCUSATE SODIUM LIQ 100 MG/10 ML UDC GT SCH ×2 (08:15→16:49)
[2021-09-24] MEDS: ACIDOPHILUS/BULGARICUS 1 EACH TAB.CHEW GT SCH ×2 (08:16→16:49)
[2021-09-24] MEDS: LEVETIRACETAM SOL (5 ML) 100 MG/ML UDC GT SCH ×2 (08:16→21:04)
[2021-09-24] MEDS: MULTIVIT W/MINERALS 1 TAB TABLET GT SCH (08:17)
[2021-09-24] MEDS: ASCORBIC ACID 500 MG TABLET GT SCH (08:17)
[2021-09-24] MEDS: LISINOPRIL (5MG) 5 MG TABLET GT SCH (08:17)
[2021-09-24] MEDS: VITAMINS A AND D 56.7 GM TUBE TP SCH ×4 (08:18→21:04)
[2021-09-24] MEDS: ZINC SULFATE 220 MG CAPSULE GT SCH (08:18)
[2021-09-24] MEDS: HYDROGEN PEROXIDE 480 ML BOTTLE TP SCH ×2 (08:39→20:05)
--- NOTE | 2021-09-24 14:22 | NUR ---
RT NOTE Received pt on cool aerosol 5LPM, 28%. Pt is tolerating well. Routine HHN TX's given, no A/R noted. Suctioned PRN, no SOB noted. Trach care done. Pt is stable at this time.
--- NOTE | 2021-09-24 15:05 | NUR ---
Facility Update: ORACIO notified patient's daughter, Kelly via email that: "Please note that a Sub-Acute employee tested positive for COVID-19. We continue to following [facility] of Public Healths infection control guidelines. [facility] will continue response testing and screened for symptoms. Staff will be tested twice a week and patients will be tested on a weekly basis. All visitation Guidelines remain the same". ORACIO also sent latest visitation guidelines.
[2021-09-24] MEDS: GLUCERNA 1.2 1,000 ML BOTTLE GT PRN (17:46)
[2021-09-24 20:14] VITALS: BP 123/68
[2021-09-24] MEDS: POLYETHYLENE GLYCOL 3350 17 GM POWD.PACK GT SCH (21:05)
[2021-09-24] MEDS: ATORVASTATIN 10 MG TABLET GT SCH (21:05)
[2021-09-24] MEDS: ENOXAPARIN SODIUM 40 MG/0.4 ML DISP.SYRIN SQ SCH (21:05)
[2021-09-24] MEDS: INSULIN GLARGINE,BASAGLAR 100 UNIT/ML INSULN.PEN SQ SCH (21:31)
[2021-09-24 23:54] VITALS: BP 110/76
[2021-09-25] MEDS: POLYVINYL ALCOHOL 15 ML BOTTLE EACHEYE SCH ×4 (00:34→17:22)
[2021-09-25] MEDS: BLOOD SUGAR DIAGNOSTIC 1 EACH STRIP IN SCH ×4 (00:34→17:22)
[2021-09-25] MEDS: INSULIN ASPART/LISPRO 100 UNIT/ML CARTRIDGE SQ PRN ×4 (00:35→17:23)
[2021-09-25] MEDS: IPRATROPIUM NEB FS 0.5 MG/2.5 ML AMPUL.NEB NEB SCH ×4 (01:00→20:05)
[2021-09-25] MEDS: ALBUTEROL FS 2.5 MG/3 ML VIAL.NEB NEB SCH ×4 (01:00→20:05)
[2021-09-25] MEDS: OMEPRAZOLE 20 MG CAPSULE.DR GT SCH (05:22)
[2021-09-25 07:18] VITALS: BP 126/73
[2021-09-25] MEDS: DOCUSATE SODIUM LIQ 100 MG/10 ML UDC GT SCH ×2 (08:48→16:45)
[2021-09-25] MEDS: VITAMINS A AND D 56.7 GM TUBE TP SCH ×4 (08:48→21:18)
[2021-09-25] MEDS: SITAGLIPTIN PHOSPHATE 50 MG TABLET GT SCH (08:48)
[2021-09-25] MEDS: LEVETIRACETAM SOL (5 ML) 100 MG/ML UDC GT SCH ×2 (08:48→21:18)
[2021-09-25] MEDS: ACIDOPHILUS/BULGARICUS 1 EACH TAB.CHEW GT SCH ×2 (08:48→16:45)
[2021-09-25] MEDS: LISINOPRIL (5MG) 5 MG TABLET GT SCH (08:48)
[2021-09-25] MEDS: MULTIVIT W/MINERALS 1 TAB TABLET GT SCH (08:48)
[2021-09-25] MEDS: ASCORBIC ACID 500 MG TABLET GT SCH (08:48)
[2021-09-25] MEDS: ZINC SULFATE 220 MG CAPSULE GT SCH (08:48)
[2021-09-25] MEDS: DILTIAZEM HCL 30 MG TABLET GT SCH ×2 (08:48→21:17)
[2021-09-25] MEDS: FERROUS SULFATE - FOR SA ONLY 330 MG/7.5 ML UDC GT SCH (08:48)
[2021-09-25] MEDS: HYDROGEN PEROXIDE 480 ML BOTTLE TP SCH ×2 (09:27→21:07)
[2021-09-25 11:34] VITALS: BP 136/74
[2021-09-25] MEDS: GLUCERNA 1.2 1,000 ML BOTTLE GT PRN (16:45)
[2021-09-25 20:47] VITALS: BP 115/74
[2021-09-25] MEDS: POLYETHYLENE GLYCOL 3350 17 GM POWD.PACK GT SCH (21:18)
[2021-09-25] MEDS: ATORVASTATIN 10 MG TABLET GT SCH (21:18)
--- NOTE | 2021-09-25 21:41 | NUR ---
RT NOTE PATIENT WAS RECEIVED ON 28% COOL AEROSOL . HHN TREATMENT AND PRN SUCTIONING WAS DONE. TRACH TUBE MIDLINE AND SECURED. WILL CONTINUE TO MONITOR THROUGHOUT THE SHIFT. Addendum: 09/25/21 at 2141 by SHYANN BARRETT RT Amended: Links added.
[2021-09-25] MEDS: INSULIN GLARGINE,BASAGLAR 100 UNIT/ML INSULN.PEN SQ SCH (22:17)
[2021-09-25] MEDS: ENOXAPARIN SODIUM 40 MG/0.4 ML DISP.SYRIN SQ SCH (22:18)
[2021-09-26] MEDS: POLYVINYL ALCOHOL 15 ML BOTTLE EACHEYE SCH ×4 (00:19→17:03)
[2021-09-26] MEDS: INSULIN ASPART/LISPRO 100 UNIT/ML CARTRIDGE SQ PRN ×2 (00:19→05:44)
[2021-09-26] MEDS: BLOOD SUGAR DIAGNOSTIC 1 EACH STRIP IN SCH ×4 (00:19→17:07)
[2021-09-26] MEDS: ALBUTEROL FS 2.5 MG/3 ML VIAL.NEB NEB SCH ×4 (01:42→20:13)
[2021-09-26] MEDS: IPRATROPIUM NEB FS 0.5 MG/2.5 ML AMPUL.NEB NEB SCH ×4 (01:42→20:13)
[2021-09-26 02:08] VITALS: BP 109/65
[2021-09-26] MEDS: OMEPRAZOLE 20 MG CAPSULE.DR GT SCH (05:43)
[2021-09-26 07:29] VITALS: BP 116/62
[2021-09-26] MEDS: DILTIAZEM HCL 30 MG TABLET GT SCH ×2 (08:15→20:25)
[2021-09-26] MEDS: DOCUSATE SODIUM LIQ 100 MG/10 ML UDC GT SCH ×2 (08:16→16:23)
[2021-09-26] MEDS: FERROUS SULFATE - FOR SA ONLY 330 MG/7.5 ML UDC GT SCH (08:16)
[2021-09-26] MEDS: SITAGLIPTIN PHOSPHATE 50 MG TABLET GT SCH (08:16)
[2021-09-26] MEDS: ACIDOPHILUS/BULGARICUS 1 EACH TAB.CHEW GT SCH ×2 (08:17→16:23)
[2021-09-26] MEDS: LEVETIRACETAM SOL (5 ML) 100 MG/ML UDC GT SCH ×2 (08:18→20:26)
[2021-09-26] MEDS: LISINOPRIL (5MG) 5 MG TABLET GT SCH (08:18)
[2021-09-26] MEDS: ZINC SULFATE 220 MG CAPSULE GT SCH (08:18)
[2021-09-26] MEDS: ASCORBIC ACID 500 MG TABLET GT SCH (08:18)
[2021-09-26] MEDS: MULTIVIT W/MINERALS 1 TAB TABLET GT SCH (08:18)
[2021-09-26] MEDS: VITAMINS A AND D 56.7 GM TUBE TP SCH ×4 (08:18→20:26)
[2021-09-26] MEDS: HYDROGEN PEROXIDE 480 ML BOTTLE TP SCH ×2 (09:33→21:58)
[2021-09-26 20:28] VITALS: BP 98/61
[2021-09-26] MEDS: ATORVASTATIN 10 MG TABLET GT SCH (21:16)
[2021-09-26] MEDS: POLYETHYLENE GLYCOL 3350 17 GM POWD.PACK GT SCH (21:16)
[2021-09-26] MEDS: INSULIN GLARGINE,BASAGLAR 100 UNIT/ML INSULN.PEN SQ SCH (21:17)
[2021-09-26] MEDS: ENOXAPARIN SODIUM 40 MG/0.4 ML DISP.SYRIN SQ SCH (21:18)
--- NOTE | 2021-09-26 22:31 | NUR ---
RT NOTE Patient was received on 28% cool aerosol , HHN treatment and PRN suctioning was done. Trach tube midline and secured, will continue to monitor throughout the shift. Addendum: 09/26/21 at 2232 by SHYANN BARRETT RT Amended: Links added.
[2021-09-27] MEDS: GLUCERNA 1.2 1,000 ML BOTTLE GT PRN ×2 (00:02→18:25)
[2021-09-27] MEDS: POLYVINYL ALCOHOL 15 ML BOTTLE EACHEYE SCH ×5 (00:18→23:55)
[2021-09-27] MEDS: BLOOD SUGAR DIAGNOSTIC 1 EACH STRIP IN SCH ×5 (00:18→23:55)
[2021-09-27] MEDS: INSULIN ASPART/LISPRO 100 UNIT/ML CARTRIDGE SQ PRN ×3 (00:19→23:56)
[2021-09-27] MEDS: ALBUTEROL FS 2.5 MG/3 ML VIAL.NEB NEB SCH ×4 (01:54→20:07)
[2021-09-27] MEDS: IPRATROPIUM NEB FS 0.5 MG/2.5 ML AMPUL.NEB NEB SCH ×4 (01:54→20:07)
[2021-09-27] MEDS: OMEPRAZOLE 20 MG CAPSULE.DR GT SCH (05:09)
[2021-09-27 07:33] VITALS: BP 102/59
[2021-09-27] MEDS: MULTIVIT W/MINERALS 1 TAB TABLET GT SCH (09:00)
[2021-09-27] MEDS: ASCORBIC ACID 500 MG TABLET GT SCH (09:00)
[2021-09-27] MEDS: DOCUSATE SODIUM LIQ 100 MG/10 ML UDC GT SCH ×2 (09:00→17:00)
[2021-09-27] MEDS: ACIDOPHILUS/BULGARICUS 1 EACH TAB.CHEW GT SCH ×2 (09:00→17:00)
[2021-09-27] MEDS: ZINC SULFATE 220 MG CAPSULE GT SCH (09:00)
[2021-09-27] MEDS: FERROUS SULFATE - FOR SA ONLY 330 MG/7.5 ML UDC GT SCH (09:00)
[2021-09-27] MEDS: SITAGLIPTIN PHOSPHATE 50 MG TABLET GT SCH (09:00)
[2021-09-27] MEDS: VITAMINS A AND D 56.7 GM TUBE TP SCH ×4 (09:00→20:14)
[2021-09-27] MEDS: DILTIAZEM HCL 30 MG TABLET GT SCH ×2 (09:00→20:13)
[2021-09-27] MEDS: LISINOPRIL (5MG) 5 MG TABLET GT SCH (09:00)
[2021-09-27] MEDS: LEVETIRACETAM SOL (5 ML) 100 MG/ML UDC GT SCH ×2 (09:00→20:14)
[2021-09-27] MEDS: HYDROGEN PEROXIDE 480 ML BOTTLE TP SCH ×2 (09:00→21:12)
[2021-09-27 10:00] VITALS: BP 102/59
[2021-09-27 13:05] VITALS: BP 114/75
--- NOTE | 2021-09-27 15:19 | NUR ---
Virtual rounds done by Kennedi Bender, no new order given.
[2021-09-27 20:58] VITALS: BP 109/73
[2021-09-27] MEDS: ATORVASTATIN 10 MG TABLET GT SCH (21:19)
[2021-09-27] MEDS: POLYETHYLENE GLYCOL 3350 17 GM POWD.PACK GT SCH (21:19)
[2021-09-27] MEDS: ENOXAPARIN SODIUM 40 MG/0.4 ML DISP.SYRIN SQ SCH (21:20)
[2021-09-27] MEDS: INSULIN GLARGINE,BASAGLAR 100 UNIT/ML INSULN.PEN SQ SCH (21:20)
--- NOTE | 2021-09-27 21:25 | NUR ---
RT NOTE Patient received stable on 28% cool aerosol , trach tube midline and secured. Will continue to monitor throughout the shift. Addendum: 09/27/21 at 2125 by SHYANN BARRETT RT Amended: Links added.
[2021-09-28 00:30] VITALS: BP 127/73
[2021-09-28] MEDS: IPRATROPIUM NEB FS 0.5 MG/2.5 ML AMPUL.NEB NEB SCH ×4 (01:57→20:01)
[2021-09-28] MEDS: ALBUTEROL FS 2.5 MG/3 ML VIAL.NEB NEB SCH ×4 (01:57→20:01)
[2021-09-28] MEDS: OMEPRAZOLE 20 MG CAPSULE.DR GT SCH (05:11)
[2021-09-28] MEDS: INSULIN ASPART/LISPRO 100 UNIT/ML CARTRIDGE SQ PRN ×4 (05:11→23:36)
[2021-09-28] MEDS: BLOOD SUGAR DIAGNOSTIC 1 EACH STRIP IN SCH ×4 (05:11→23:36)
[2021-09-28] MEDS: POLYVINYL ALCOHOL 15 ML BOTTLE EACHEYE SCH ×4 (05:11→23:36)
[2021-09-28] MEDS: GLUCERNA 1.2 1,000 ML BOTTLE GT PRN (05:12)
[2021-09-28 07:30] VITALS: BP 131/69
[2021-09-28] MEDS: DOCUSATE SODIUM LIQ 100 MG/10 ML UDC GT SCH ×2 (09:00→16:59)
[2021-09-28] MEDS: DILTIAZEM HCL 30 MG TABLET GT SCH ×2 (09:00→20:12)
[2021-09-28] MEDS: SITAGLIPTIN PHOSPHATE 50 MG TABLET GT SCH (09:01)
[2021-09-28] MEDS: MULTIVIT W/MINERALS 1 TAB TABLET GT SCH (09:01)
[2021-09-28] MEDS: FERROUS SULFATE - FOR SA ONLY 330 MG/7.5 ML UDC GT SCH (09:01)
[2021-09-28] MEDS: ZINC SULFATE 220 MG CAPSULE GT SCH (09:01)
[2021-09-28] MEDS: LISINOPRIL (5MG) 5 MG TABLET GT SCH (09:01)
[2021-09-28] MEDS: LEVETIRACETAM SOL (5 ML) 100 MG/ML UDC GT SCH ×2 (09:01→20:14)
[2021-09-28] MEDS: ACIDOPHILUS/BULGARICUS 1 EACH TAB.CHEW GT SCH ×2 (09:01→16:59)
[2021-09-28] MEDS: ASCORBIC ACID 500 MG TABLET GT SCH (09:01)
[2021-09-28] MEDS: HYDROGEN PEROXIDE 480 ML BOTTLE TP SCH ×2 (09:13→21:09)
[2021-09-28] MEDS: VITAMINS A AND D 56.7 GM TUBE TP SCH ×4 (09:27→20:14)
[2021-09-28 13:09] VITALS: BP 121/71
[2021-09-28 20:38] VITALS: BP 124/76
[2021-09-28] MEDS: ATORVASTATIN 10 MG TABLET GT SCH (21:22)
[2021-09-28] MEDS: INSULIN GLARGINE,BASAGLAR 100 UNIT/ML INSULN.PEN SQ SCH (21:23)
[2021-09-28] MEDS: POLYETHYLENE GLYCOL 3350 17 GM POWD.PACK GT SCH (21:23)
[2021-09-28] MEDS: ENOXAPARIN SODIUM 40 MG/0.4 ML DISP.SYRIN SQ SCH (21:24)
[2021-09-29 01:57] VITALS: BP 106/65
[2021-09-29] MEDS: IPRATROPIUM NEB FS 0.5 MG/2.5 ML AMPUL.NEB NEB SCH ×4 (02:01→20:07)
[2021-09-29] MEDS: ALBUTEROL FS 2.5 MG/3 ML VIAL.NEB NEB SCH ×4 (02:01→20:07)
[2021-09-29] MEDS: INSULIN ASPART/LISPRO 100 UNIT/ML CARTRIDGE SQ PRN ×3 (05:07→17:29)
[2021-09-29] MEDS: POLYVINYL ALCOHOL 15 ML BOTTLE EACHEYE SCH ×3 (05:07→17:29)
[2021-09-29] MEDS: BLOOD SUGAR DIAGNOSTIC 1 EACH STRIP IN SCH ×3 (05:07→17:29)
[2021-09-29] MEDS: OMEPRAZOLE 20 MG CAPSULE.DR GT SCH (05:07)
[2021-09-29] MEDS: GLUCERNA 1.2 1,000 ML BOTTLE GT PRN (06:13)
[2021-09-29 07:54] VITALS: BP 109/56
[2021-09-29] MEDS: DILTIAZEM HCL 30 MG TABLET GT SCH ×2 (09:00→21:00)
[2021-09-29] MEDS: HYDROGEN PEROXIDE 480 ML BOTTLE TP SCH ×2 (09:41→20:07)
[2021-09-29] MEDS: FERROUS SULFATE - FOR SA ONLY 330 MG/7.5 ML UDC GT SCH (09:43)
[2021-09-29] MEDS: ACIDOPHILUS/BULGARICUS 1 EACH TAB.CHEW GT SCH ×2 (09:43→17:29)
[2021-09-29] MEDS: LEVETIRACETAM SOL (5 ML) 100 MG/ML UDC GT SCH ×2 (09:43→21:07)
[2021-09-29] MEDS: LISINOPRIL (5MG) 5 MG TABLET GT SCH (09:43)
[2021-09-29] MEDS: DOCUSATE SODIUM LIQ 100 MG/10 ML UDC GT SCH ×2 (09:43→17:29)
[2021-09-29] MEDS: SITAGLIPTIN PHOSPHATE 50 MG TABLET GT SCH (09:43)
[2021-09-29] MEDS: ASCORBIC ACID 500 MG TABLET GT SCH (09:44)
[2021-09-29] MEDS: VITAMINS A AND D 56.7 GM TUBE TP SCH ×4 (09:44→21:07)
[2021-09-29] MEDS: MULTIVIT W/MINERALS 1 TAB TABLET GT SCH (09:44)
[2021-09-29] MEDS: ZINC SULFATE 220 MG CAPSULE GT SCH (09:44)
[2021-09-29 12:23] VITALS: BP 95/54
--- NOTE | 2021-09-29 12:47 | NUR ---
Family Invite to IDT: ORACIO emailed the patient's daughter, Kelly and notified her about IDT meeting 08-31-21 12:30p. SW awaiting response & will follow up accordingly.
[2021-09-29 20:11] VITALS: BP 95/55
--- NOTE | 2021-09-29 20:57 | NUR ---
RT PT RECVD ON 28% COOL AEROSOL VIA T-BAR. TRACH IS PATENT AND SECURED. SUCTION PRN, NEB TX GIVEN AND [place] WELL. NO SOB OR RESPIRATORY DISTRESS NOTED AT THIS TIME. AMBU BAG AND SPARE TRACH AT BEDSIDE.
[2021-09-29] MEDS: POLYETHYLENE GLYCOL 3350 17 GM POWD.PACK GT SCH (21:07)
[2021-09-29] MEDS: ATORVASTATIN 10 MG TABLET GT SCH (21:07)
[2021-09-29] MEDS: ENOXAPARIN SODIUM 40 MG/0.4 ML DISP.SYRIN SQ SCH (21:08)
[2021-09-29] MEDS: INSULIN GLARGINE,BASAGLAR 100 UNIT/ML INSULN.PEN SQ SCH (22:31)
[2021-09-30] MEDS: BLOOD SUGAR DIAGNOSTIC 1 EACH STRIP IN SCH ×4 (00:12→17:40)
[2021-09-30] MEDS: POLYVINYL ALCOHOL 15 ML BOTTLE EACHEYE SCH ×4 (00:12→17:23)
[2021-09-30] MEDS: INSULIN ASPART/LISPRO 100 UNIT/ML CARTRIDGE SQ PRN ×4 (00:13→17:41)
[2021-09-30 00:30] VITALS: BP 100/56
[2021-09-30] MEDS: IPRATROPIUM NEB FS 0.5 MG/2.5 ML AMPUL.NEB NEB SCH ×4 (01:27→19:53)
[2021-09-30] MEDS: ALBUTEROL FS 2.5 MG/3 ML VIAL.NEB NEB SCH ×4 (01:27→19:53)
[2021-09-30] MEDS: GLUCERNA 1.2 1,000 ML BOTTLE GT PRN (06:10)
[2021-09-30] MEDS: OMEPRAZOLE 20 MG CAPSULE.DR GT SCH (06:10)
[2021-09-30 07:28] VITALS: BP 126/73
[2021-09-30] MEDS: HYDROGEN PEROXIDE 480 ML BOTTLE TP SCH ×2 (07:28→19:53)
[2021-09-30] MEDS: ASCORBIC ACID 500 MG TABLET GT SCH (08:34)
[2021-09-30] MEDS: SITAGLIPTIN PHOSPHATE 50 MG TABLET GT SCH (08:34)
[2021-09-30] MEDS: LEVETIRACETAM SOL (5 ML) 100 MG/ML UDC GT SCH ×2 (08:34→20:46)
[2021-09-30] MEDS: ZINC SULFATE 220 MG CAPSULE GT SCH (08:34)
[2021-09-30] MEDS: MULTIVIT W/MINERALS 1 TAB TABLET GT SCH (08:34)
[2021-09-30] MEDS: FERROUS SULFATE - FOR SA ONLY 330 MG/7.5 ML UDC GT SCH (08:34)
[2021-09-30] MEDS: VITAMINS A AND D 56.7 GM TUBE TP SCH ×4 (08:34→20:46)
[2021-09-30] MEDS: DILTIAZEM HCL 30 MG TABLET GT SCH ×2 (08:34→20:45)
[2021-09-30] MEDS: DOCUSATE SODIUM LIQ 100 MG/10 ML UDC GT SCH ×2 (08:34→17:23)
[2021-09-30] MEDS: LISINOPRIL (5MG) 5 MG TABLET GT SCH (08:34)
[2021-09-30] MEDS: ACIDOPHILUS/BULGARICUS 1 EACH TAB.CHEW GT SCH ×2 (08:35→17:23)
[2021-09-30 12:05] VITALS: BP 108/74
[2021-09-30 19:44] VITALS: BP 106/73
[2021-09-30] MEDS: POLYETHYLENE GLYCOL 3350 17 GM POWD.PACK GT SCH (21:11)
[2021-09-30] MEDS: ATORVASTATIN 10 MG TABLET GT SCH (21:11)
[2021-09-30] MEDS: ENOXAPARIN SODIUM 40 MG/0.4 ML DISP.SYRIN SQ SCH (21:11)
[2021-09-30] MEDS: INSULIN GLARGINE,BASAGLAR 100 UNIT/ML INSULN.PEN SQ SCH (21:28)
[2021-09-30 23:49] VITALS: BP 115/81
[2021-10-01] MEDS: INSULIN ASPART/LISPRO 100 UNIT/ML CARTRIDGE SQ PRN ×3 (00:16→23:33)
[2021-10-01] MEDS: POLYVINYL ALCOHOL 15 ML BOTTLE EACHEYE SCH ×5 (00:16→23:32)
[2021-10-01] MEDS: BLOOD SUGAR DIAGNOSTIC 1 EACH STRIP IN SCH ×5 (00:16→23:33)
[2021-10-01] MEDS: ALBUTEROL FS 2.5 MG/3 ML VIAL.NEB NEB SCH ×4 (02:15→19:23)
[2021-10-01] MEDS: IPRATROPIUM NEB FS 0.5 MG/2.5 ML AMPUL.NEB NEB SCH ×4 (02:15→19:23)
[2021-10-01] MEDS: OMEPRAZOLE 20 MG CAPSULE.DR GT SCH (05:43)
[2021-10-01] MEDS: GLUCERNA 1.2 1,000 ML BOTTLE GT PRN (05:56)
[2021-10-01 07:30] VITALS: BP 120/74
[2021-10-01] MEDS: HYDROGEN PEROXIDE 480 ML BOTTLE TP SCH ×2 (08:20→19:23)
[2021-10-01] MEDS: DILTIAZEM HCL 30 MG TABLET GT SCH ×2 (09:30→21:17)
[2021-10-01] MEDS: LISINOPRIL (5MG) 5 MG TABLET GT SCH (09:31)
[2021-10-01] MEDS: SITAGLIPTIN PHOSPHATE 50 MG TABLET GT SCH (09:31)
[2021-10-01] MEDS: ASCORBIC ACID 500 MG TABLET GT SCH (09:31)
[2021-10-01] MEDS: DOCUSATE SODIUM LIQ 100 MG/10 ML UDC GT SCH ×2 (09:31→17:06)
[2021-10-01] MEDS: ZINC SULFATE 220 MG CAPSULE GT SCH (09:31)
[2021-10-01] MEDS: VITAMINS A AND D 56.7 GM TUBE TP SCH ×4 (09:31→21:17)
[2021-10-01] MEDS: ACIDOPHILUS/BULGARICUS 1 EACH TAB.CHEW GT SCH ×2 (09:31→17:06)
[2021-10-01] MEDS: MULTIVIT W/MINERALS 1 TAB TABLET GT SCH (09:31)
[2021-10-01] MEDS: FERROUS SULFATE - FOR SA ONLY 330 MG/7.5 ML UDC GT SCH (09:31)
[2021-10-01] MEDS: LEVETIRACETAM SOL (5 ML) 100 MG/ML UDC GT SCH ×2 (09:31→21:17)
--- NOTE | 2021-10-01 09:40 | NUR ---
Spoke to daughter Kelly regarding face time, she's busy with her errands.She will call back when she is available.
[2021-10-01 12:53] VITALS: BP 109/72
--- NOTE | 2021-10-01 13:50 | NUR ---
During IDT, pharmacist asked to evaluate patient's Cardizem which is being held at least once a day. B/P ranges 95/54 to 136/71 in the past [address] Capone said to continue with the current order, no changes at this time.
--- NOTE | 2021-10-01 14:56 | NUR ---
INTERDISCIPLINARY PLAN OF CARE CONFERENCE took place today. The patients responsible alliance party, Kelly [phone] Capone and Interdisciplinary team discussed the plan of care in detail. Current orders as well as treatments and medications were reviewed.
--- NOTE | 2021-10-01 15:50 | NUR ---
RT Patient received on cool aerosol 28% (5LPM). Breathing tx and suction tolerated well. Trach tube secured with trach tie. Back up trach and ambu bag at bedside. No SOB or respiratory distress noted at this time.
--- NOTE | 2021-10-01 16:49 | NUR ---
Facility Update: ORACIO notified patient's family via email that: No Sub-Acute employee tested positive for COVID-19. We continue to following [facility] infection control guidelines. [facility] will continue response testing and screened for symptoms. Staff will be tested twice a week and patients will be tested on a weekly basis. All visitation Guidelines remain the same". ORACIO educated family about latest guidelines from [facility]
[2021-10-01 19:28] VITALS: BP 119/69
[2021-10-01] MEDS: POLYETHYLENE GLYCOL 3350 17 GM POWD.PACK GT SCH (21:17)
[2021-10-01] MEDS: ATORVASTATIN 10 MG TABLET GT SCH (21:17)
[2021-10-01] MEDS: ENOXAPARIN SODIUM 40 MG/0.4 ML DISP.SYRIN SQ SCH (21:18)
[2021-10-01] MEDS: INSULIN GLARGINE,BASAGLAR 100 UNIT/ML INSULN.PEN SQ SCH (21:33)
[2021-10-02] VITALS (7 sets, daily range): BP systolic 98–126; BP diastolic 52–72
[2021-10-02] MEDS: IPRATROPIUM NEB FS 0.5 MG/2.5 ML AMPUL.NEB NEB SCH ×4 (01:15→20:01)
[2021-10-02] MEDS: ALBUTEROL FS 2.5 MG/3 ML VIAL.NEB NEB SCH ×4 (01:16→20:01)
--- NOTE | 2021-10-02 02:51 | NUR ---
PATIENT RECEIVED ON 28% AEROSOL T-TUBE, TOLERATING WITH NO DISTRESS/SOB NOTED. SUCTIONED FOR MINIMAL, THIN, WHITE SECRETIONS. GIVEN IN-LINE TREATMENTS WITH NO ADVERSE REACTIONS. AMBU BAG AT BEDSIDE. TRACH CARE DONE. Addendum: 10/02/21 at 0252 by KAISER LAW RT Amended: Links added.
[2021-10-02] MEDS: POLYVINYL ALCOHOL 15 ML BOTTLE EACHEYE SCH ×3 (05:28→18:32)
[2021-10-02] MEDS: OMEPRAZOLE 20 MG CAPSULE.DR GT SCH (05:28)
[2021-10-02] MEDS: BLOOD SUGAR DIAGNOSTIC 1 EACH STRIP IN SCH ×3 (05:28→18:32)
[2021-10-02] MEDS: INSULIN ASPART/LISPRO 100 UNIT/ML CARTRIDGE SQ PRN ×3 (05:29→18:32)
[2021-10-02] MEDS: HYDROGEN PEROXIDE 480 ML BOTTLE TP SCH ×2 (08:17→21:17)
[2021-10-02] MEDS: DILTIAZEM HCL 30 MG TABLET GT SCH ×2 (09:00→21:28)
[2021-10-02] MEDS: LISINOPRIL (5MG) 5 MG TABLET GT SCH (09:00)
[2021-10-02] MEDS: LEVETIRACETAM SOL (5 ML) 100 MG/ML UDC GT SCH ×2 (09:23→21:28)
[2021-10-02] MEDS: SITAGLIPTIN PHOSPHATE 50 MG TABLET GT SCH (09:23)
[2021-10-02] MEDS: ACIDOPHILUS/BULGARICUS 1 EACH TAB.CHEW GT SCH ×2 (09:23→16:38)
[2021-10-02] MEDS: FERROUS SULFATE - FOR SA ONLY 330 MG/7.5 ML UDC GT SCH (09:23)
[2021-10-02] MEDS: DOCUSATE SODIUM LIQ 100 MG/10 ML UDC GT SCH ×2 (09:23→16:38)
[2021-10-02] MEDS: ZINC SULFATE 220 MG CAPSULE GT SCH (09:24)
[2021-10-02] MEDS: VITAMINS A AND D 56.7 GM TUBE TP SCH ×4 (09:24→21:28)
[2021-10-02] MEDS: MULTIVIT W/MINERALS 1 TAB TABLET GT SCH (09:24)
[2021-10-02] MEDS: ASCORBIC ACID 500 MG TABLET GT SCH (09:24)
[2021-10-02] MEDS: GLUCERNA 1.2 1,000 ML BOTTLE GT PRN (16:36)
[2021-10-02] MEDS: POLYETHYLENE GLYCOL 3350 17 GM POWD.PACK GT SCH (21:28)
[2021-10-02] MEDS: ATORVASTATIN 10 MG TABLET GT SCH (21:28)
[2021-10-02] MEDS: ENOXAPARIN SODIUM 40 MG/0.4 ML DISP.SYRIN SQ SCH (21:29)
[2021-10-02] MEDS: INSULIN GLARGINE,BASAGLAR 100 UNIT/ML INSULN.PEN SQ SCH (21:29)
[2021-10-03] MEDS: POLYVINYL ALCOHOL 15 ML BOTTLE EACHEYE SCH ×4 (00:27→17:10)
[2021-10-03] MEDS: BLOOD SUGAR DIAGNOSTIC 1 EACH STRIP IN SCH ×4 (00:27→17:10)
[2021-10-03] MEDS: INSULIN ASPART/LISPRO 100 UNIT/ML CARTRIDGE SQ PRN ×4 (00:28→17:10)
[2021-10-03] MEDS: IPRATROPIUM NEB FS 0.5 MG/2.5 ML AMPUL.NEB NEB SCH ×4 (00:58→19:59)
[2021-10-03] MEDS: ALBUTEROL FS 2.5 MG/3 ML VIAL.NEB NEB SCH ×4 (00:58→19:59)
[2021-10-03] MEDS: OMEPRAZOLE 20 MG CAPSULE.DR GT SCH (05:19)
[2021-10-03 07:39] VITALS: BP 130/63
[2021-10-03] MEDS: HYDROGEN PEROXIDE 480 ML BOTTLE TP SCH ×2 (08:18→20:44)
[2021-10-03] MEDS: DILTIAZEM HCL 30 MG TABLET GT SCH ×2 (08:54→21:00)
[2021-10-03] MEDS: ACIDOPHILUS/BULGARICUS 1 EACH TAB.CHEW GT SCH ×2 (08:54→17:10)
[2021-10-03] MEDS: LEVETIRACETAM SOL (5 ML) 100 MG/ML UDC GT SCH ×2 (08:54→21:14)
[2021-10-03] MEDS: FERROUS SULFATE - FOR SA ONLY 330 MG/7.5 ML UDC GT SCH (08:54)
[2021-10-03] MEDS: DOCUSATE SODIUM LIQ 100 MG/10 ML UDC GT SCH ×2 (08:54→17:10)
[2021-10-03] MEDS: SITAGLIPTIN PHOSPHATE 50 MG TABLET GT SCH (08:54)
[2021-10-03] MEDS: ZINC SULFATE 220 MG CAPSULE GT SCH (08:55)
[2021-10-03] MEDS: MULTIVIT W/MINERALS 1 TAB TABLET GT SCH (08:55)
[2021-10-03] MEDS: ASCORBIC ACID 500 MG TABLET GT SCH (08:55)
[2021-10-03] MEDS: LISINOPRIL (5MG) 5 MG TABLET GT SCH (08:55)
[2021-10-03] MEDS: VITAMINS A AND D 56.7 GM TUBE TP SCH ×4 (08:56→21:14)
[2021-10-03 12:33] VITALS: BP 125/57
[2021-10-03] MEDS: ATORVASTATIN 10 MG TABLET GT SCH (21:14)
[2021-10-03] MEDS: POLYETHYLENE GLYCOL 3350 17 GM POWD.PACK GT SCH (21:14)
[2021-10-03] MEDS: ENOXAPARIN SODIUM 40 MG/0.4 ML DISP.SYRIN SQ SCH (21:16)
[2021-10-03] MEDS: INSULIN GLARGINE,BASAGLAR 100 UNIT/ML INSULN.PEN SQ SCH (21:16)
[2021-10-03] MEDS: GLUCERNA 1.2 1,000 ML BOTTLE GT PRN (21:25)
[2021-10-04] MEDS: POLYVINYL ALCOHOL 15 ML BOTTLE EACHEYE SCH ×5 (00:05→23:57)
[2021-10-04] MEDS: INSULIN ASPART/LISPRO 100 UNIT/ML CARTRIDGE SQ PRN ×5 (00:05→23:57)
[2021-10-04] MEDS: BLOOD SUGAR DIAGNOSTIC 1 EACH STRIP IN SCH ×5 (00:05→23:57)
[2021-10-04] MEDS: IPRATROPIUM NEB FS 0.5 MG/2.5 ML AMPUL.NEB NEB SCH ×4 (01:41→20:13)
[2021-10-04] MEDS: ALBUTEROL FS 2.5 MG/3 ML VIAL.NEB NEB SCH ×4 (01:41→20:13)
[2021-10-04] MEDS: OMEPRAZOLE 20 MG CAPSULE.DR GT SCH (05:02)
[2021-10-04 07:23] VITALS: BP 123/77
[2021-10-04] MEDS: MULTIVIT W/MINERALS 1 TAB TABLET GT SCH (09:00)
[2021-10-04] MEDS: ACIDOPHILUS/BULGARICUS 1 EACH TAB.CHEW GT SCH ×2 (09:00→17:44)
[2021-10-04] MEDS: HYDROGEN PEROXIDE 480 ML BOTTLE TP SCH ×2 (09:00→20:13)
[2021-10-04] MEDS: DOCUSATE SODIUM LIQ 100 MG/10 ML UDC GT SCH ×2 (09:00→17:44)
[2021-10-04] MEDS: ZINC SULFATE 220 MG CAPSULE GT SCH (09:00)
[2021-10-04] MEDS: SITAGLIPTIN PHOSPHATE 50 MG TABLET GT SCH (09:00)
[2021-10-04] MEDS: DILTIAZEM HCL 30 MG TABLET GT SCH ×2 (09:00→21:27)
[2021-10-04] MEDS: VITAMINS A AND D 56.7 GM TUBE TP SCH ×4 (09:00→21:28)
[2021-10-04] MEDS: LISINOPRIL (5MG) 5 MG TABLET GT SCH (09:00)
[2021-10-04] MEDS: ASCORBIC ACID 500 MG TABLET GT SCH (09:00)
[2021-10-04] MEDS: LEVETIRACETAM SOL (5 ML) 100 MG/ML UDC GT SCH ×2 (09:00→21:28)
[2021-10-04] MEDS: FERROUS SULFATE - FOR SA ONLY 330 MG/7.5 ML UDC GT SCH (09:00)
--- NOTE | 2021-10-04 10:05 | NUR ---
Facility Update: ORACIO notified patient's family via email that: "Please note that a Sub-Acute employee tested positive for COVID-19. We continue to following [facility] Department of Public Healths infection control guidelines. [facility] will continue response testing and screened for symptoms. Staff will be tested twice a week and patients will be tested on a weekly basis. All visitation Guidelines remain the same". ORACIO also sent latest visitation guidelines.
[2021-10-04 12:28] VITALS: BP 128/74
[2021-10-04] MEDS: ATORVASTATIN 10 MG TABLET GT SCH (21:28)
[2021-10-04] MEDS: POLYETHYLENE GLYCOL 3350 17 GM POWD.PACK GT SCH (21:28)
[2021-10-04] MEDS: ENOXAPARIN SODIUM 40 MG/0.4 ML DISP.SYRIN SQ SCH (21:29)
[2021-10-04] MEDS: INSULIN GLARGINE,BASAGLAR 100 UNIT/ML INSULN.PEN SQ SCH (21:29)
[2021-10-05] MEDS: GLUCERNA 1.2 1,000 ML BOTTLE GT PRN (00:32)
[2021-10-05] MEDS: IPRATROPIUM NEB FS 0.5 MG/2.5 ML AMPUL.NEB NEB SCH ×4 (01:45→19:40)
[2021-10-05] MEDS: ALBUTEROL FS 2.5 MG/3 ML VIAL.NEB NEB SCH ×4 (01:45→19:40)
[2021-10-05] MEDS: INSULIN ASPART/LISPRO 100 UNIT/ML CARTRIDGE SQ PRN ×4 (05:44→23:43)
[2021-10-05] MEDS: BLOOD SUGAR DIAGNOSTIC 1 EACH STRIP IN SCH ×4 (05:44→23:41)
[2021-10-05] MEDS: POLYVINYL ALCOHOL 15 ML BOTTLE EACHEYE SCH ×4 (05:44→23:41)
[2021-10-05] MEDS: OMEPRAZOLE 20 MG CAPSULE.DR GT SCH (05:44)
[2021-10-05 07:20] VITALS: BP 125/60
[2021-10-05] MEDS: ACIDOPHILUS/BULGARICUS 1 EACH TAB.CHEW GT SCH ×2 (08:49→16:48)
[2021-10-05] MEDS: DILTIAZEM HCL 30 MG TABLET GT SCH ×2 (08:49→21:18)
[2021-10-05] MEDS: LISINOPRIL (5MG) 5 MG TABLET GT SCH (08:49)
[2021-10-05] MEDS: SITAGLIPTIN PHOSPHATE 50 MG TABLET GT SCH (08:49)
[2021-10-05] MEDS: DOCUSATE SODIUM LIQ 100 MG/10 ML UDC GT SCH ×2 (08:49→16:48)
[2021-10-05] MEDS: LEVETIRACETAM SOL (5 ML) 100 MG/ML UDC GT SCH ×2 (08:49→21:18)
[2021-10-05] MEDS: FERROUS SULFATE - FOR SA ONLY 330 MG/7.5 ML UDC GT SCH (08:49)
[2021-10-05] MEDS: ZINC SULFATE 220 MG CAPSULE GT SCH (08:50)
[2021-10-05] MEDS: ASCORBIC ACID 500 MG TABLET GT SCH (08:50)
[2021-10-05] MEDS: MULTIVIT W/MINERALS 1 TAB TABLET GT SCH (08:50)
[2021-10-05] MEDS: VITAMINS A AND D 56.7 GM TUBE TP SCH ×4 (08:50→21:18)
[2021-10-05] MEDS: HYDROGEN PEROXIDE 480 ML BOTTLE TP SCH ×2 (09:16→20:34)
[2021-10-05 12:40] VITALS: BP 131/72
--- NOTE | 2021-10-05 16:15 | NUR ---
RT NOTE PT RECEIVED ON CA 28% AT 5 LPM. TOLERATED BOTH BREATHING TREATMENTS WELL. MINIMAL SUCTIONING NEEDED. TRACH IS PATENT AND SECURED. SPARE AND AMBU BAG AT BEDSIDE. NO SOB OR RESPIRATORY DISTRESS NOTED. Addendum: 10/05/21 at 1617 by Ankur Kang RT Amended: Links added.
[2021-10-05 19:51] VITALS: BP 120/68
[2021-10-05] MEDS: ATORVASTATIN 10 MG TABLET GT SCH (21:18)
[2021-10-05] MEDS: POLYETHYLENE GLYCOL 3350 17 GM POWD.PACK GT SCH (21:18)
[2021-10-05] MEDS: INSULIN GLARGINE,BASAGLAR 100 UNIT/ML INSULN.PEN SQ SCH (21:19)
[2021-10-05] MEDS: ENOXAPARIN SODIUM 40 MG/0.4 ML DISP.SYRIN SQ SCH (21:19)
[2021-10-06] MEDS: GLUCERNA 1.2 1,000 ML BOTTLE GT PRN (00:43)
[2021-10-06] MEDS: IPRATROPIUM NEB FS 0.5 MG/2.5 ML AMPUL.NEB NEB SCH ×4 (01:42→20:17)
[2021-10-06] MEDS: ALBUTEROL FS 2.5 MG/3 ML VIAL.NEB NEB SCH ×4 (01:42→20:17)
--- NOTE | 2021-10-06 04:57 | NUR ---
RT Notes Pt received trached on cool mist aerosol via t-piece. No resp distress/SOB noted throughout shift. Pt suctioned. HHN TXs given with no adverse reactions. Back up trach and ambubag at bedside. Will cont to monitor.
[2021-10-06] MEDS: OMEPRAZOLE 20 MG CAPSULE.DR GT SCH (05:39)
[2021-10-06] MEDS: POLYVINYL ALCOHOL 15 ML BOTTLE EACHEYE SCH ×4 (05:39→23:27)
[2021-10-06] MEDS: INSULIN ASPART/LISPRO 100 UNIT/ML CARTRIDGE SQ PRN ×4 (05:39→23:28)
[2021-10-06] MEDS: BLOOD SUGAR DIAGNOSTIC 1 EACH STRIP IN SCH ×4 (05:39→23:27)
[2021-10-06 07:55] VITALS: BP 108/51
[2021-10-06] MEDS: HYDROGEN PEROXIDE 480 ML BOTTLE TP SCH ×2 (08:17→20:17)
[2021-10-06] MEDS: DILTIAZEM HCL 30 MG TABLET GT SCH ×2 (09:00→21:00)
[2021-10-06] MEDS: LISINOPRIL (5MG) 5 MG TABLET GT SCH (09:00)
[2021-10-06] MEDS: LEVETIRACETAM SOL (5 ML) 100 MG/ML UDC GT SCH ×2 (09:33→21:11)
[2021-10-06] MEDS: DOCUSATE SODIUM LIQ 100 MG/10 ML UDC GT SCH ×2 (09:33→17:00)
[2021-10-06] MEDS: SITAGLIPTIN PHOSPHATE 50 MG TABLET GT SCH (09:33)
[2021-10-06] MEDS: FERROUS SULFATE - FOR SA ONLY 330 MG/7.5 ML UDC GT SCH (09:33)
[2021-10-06] MEDS: MULTIVIT W/MINERALS 1 TAB TABLET GT SCH (09:33)
[2021-10-06] MEDS: ACIDOPHILUS/BULGARICUS 1 EACH TAB.CHEW GT SCH ×2 (09:33→17:00)
[2021-10-06] MEDS: ZINC SULFATE 220 MG CAPSULE GT SCH (09:34)
[2021-10-06] MEDS: VITAMINS A AND D 56.7 GM TUBE TP SCH ×4 (09:34→21:11)
[2021-10-06] MEDS: ASCORBIC ACID 500 MG TABLET GT SCH (09:34)
[2021-10-06 12:56] VITALS: BP 116/55
--- NOTE | 2021-10-06 18:10 | NUR ---
RT Notes Pt received trached on cool mist aerosol via t-piece. trach tube patent and secure. No resp distress/SOB noted throughout shift Will cont to monitor.
[2021-10-06 20:50] VITALS: BP 107/62
[2021-10-06] MEDS: ATORVASTATIN 10 MG TABLET GT SCH (21:11)
[2021-10-06] MEDS: POLYETHYLENE GLYCOL 3350 17 GM POWD.PACK GT SCH (21:11)
[2021-10-06] MEDS: INSULIN GLARGINE,BASAGLAR 100 UNIT/ML INSULN.PEN SQ SCH (21:12)
[2021-10-06] MEDS: ENOXAPARIN SODIUM 40 MG/0.4 ML DISP.SYRIN SQ SCH (21:13)
[2021-10-07 00:30] VITALS: BP 105/60
[2021-10-07] MEDS: ALBUTEROL FS 2.5 MG/3 ML VIAL.NEB NEB SCH ×4 (01:02→20:03)
[2021-10-07] MEDS: IPRATROPIUM NEB FS 0.5 MG/2.5 ML AMPUL.NEB NEB SCH ×4 (01:02→20:03)
--- NOTE | 2021-10-07 05:38 | NUR ---
RT received pt on CA, 5L 28%. trach secure, patent. no sob, no resp distress. spare trach at bedside. ambu bag at bedside. uneventful shift.
[2021-10-07] MEDS: INSULIN ASPART/LISPRO 100 UNIT/ML CARTRIDGE SQ PRN ×3 (05:42→17:25)
[2021-10-07] MEDS: OMEPRAZOLE 20 MG CAPSULE.DR GT SCH (05:42)
[2021-10-07] MEDS: BLOOD SUGAR DIAGNOSTIC 1 EACH STRIP IN SCH ×3 (05:42→17:25)
[2021-10-07] MEDS: POLYVINYL ALCOHOL 15 ML BOTTLE EACHEYE SCH ×3 (05:42→17:18)
[2021-10-07 07:20] VITALS: BP 118/75
[2021-10-07] MEDS: HYDROGEN PEROXIDE 480 ML BOTTLE TP SCH ×2 (08:39→20:03)
[2021-10-07] MEDS: DILTIAZEM HCL 30 MG TABLET GT SCH ×2 (09:25→20:16)
[2021-10-07] MEDS: DOCUSATE SODIUM LIQ 100 MG/10 ML UDC GT SCH ×2 (09:26→17:18)
[2021-10-07] MEDS: SITAGLIPTIN PHOSPHATE 50 MG TABLET GT SCH (09:26)
[2021-10-07] MEDS: LEVETIRACETAM SOL (5 ML) 100 MG/ML UDC GT SCH ×2 (09:26→20:16)
[2021-10-07] MEDS: FERROUS SULFATE - FOR SA ONLY 330 MG/7.5 ML UDC GT SCH (09:26)
[2021-10-07] MEDS: ACIDOPHILUS/BULGARICUS 1 EACH TAB.CHEW GT SCH ×2 (09:27→17:18)
[2021-10-07] MEDS: VITAMINS A AND D 56.7 GM TUBE TP SCH ×4 (09:28→20:17)
[2021-10-07] MEDS: MULTIVIT W/MINERALS 1 TAB TABLET GT SCH (09:28)
[2021-10-07] MEDS: ZINC SULFATE 220 MG CAPSULE GT SCH (09:28)
[2021-10-07] MEDS: LISINOPRIL (5MG) 5 MG TABLET GT SCH (09:28)
[2021-10-07] MEDS: ASCORBIC ACID 500 MG TABLET GT SCH (09:28)
--- NOTE | 2021-10-07 10:20 | NUR ---
RT NOTE PATIENT RECEIVED ON CA. TRACH SECURED AND AIRWAY PATENT. SUCTIONED PRN. SPARE TRACH AND AMBU BAG AT HEAD OF BED. NO SOB NOTED AT THIS TIME.
[2021-10-07 12:47] VITALS: BP 123/70
[2021-10-07 19:51] VITALS: BP 107/62
[2021-10-07] MEDS: POLYETHYLENE GLYCOL 3350 17 GM POWD.PACK GT SCH (21:04)
[2021-10-07] MEDS: ATORVASTATIN 10 MG TABLET GT SCH (21:04)
[2021-10-07] MEDS: ENOXAPARIN SODIUM 40 MG/0.4 ML DISP.SYRIN SQ SCH (21:05)
[2021-10-07] MEDS: INSULIN GLARGINE,BASAGLAR 100 UNIT/ML INSULN.PEN SQ SCH (21:05)
[2021-10-08] MEDS: POLYVINYL ALCOHOL 15 ML BOTTLE EACHEYE SCH ×4 (00:12→18:17)
[2021-10-08] MEDS: BLOOD SUGAR DIAGNOSTIC 1 EACH STRIP IN SCH ×4 (00:12→18:17)
[2021-10-08] MEDS: INSULIN ASPART/LISPRO 100 UNIT/ML CARTRIDGE SQ PRN ×4 (00:12→18:17)
[2021-10-08 01:37] VITALS: BP 124/67
[2021-10-08] MEDS: ALBUTEROL FS 2.5 MG/3 ML VIAL.NEB NEB SCH ×4 (01:38→20:02)
[2021-10-08] MEDS: IPRATROPIUM NEB FS 0.5 MG/2.5 ML AMPUL.NEB NEB SCH ×4 (01:38→20:02)
--- NOTE | 2021-10-08 04:26 | NUR ---
RT received pt on CA, 5L 28%. trach secure, patent. no sob, no resp distress. spare trach at bedside. ambu bag at bedside. uneventful shift.
[2021-10-08] MEDS: OMEPRAZOLE 20 MG CAPSULE.DR GT SCH (05:32)
[2021-10-08] MEDS: GLUCERNA 1.2 1,000 ML BOTTLE GT PRN (05:33)
[2021-10-08 07:34] VITALS: BP 118/76
[2021-10-08] MEDS: HYDROGEN PEROXIDE 480 ML BOTTLE TP SCH ×2 (08:01→21:04)
[2021-10-08] MEDS: DOCUSATE SODIUM LIQ 100 MG/10 ML UDC GT SCH ×2 (09:02→16:55)
[2021-10-08] MEDS: SITAGLIPTIN PHOSPHATE 50 MG TABLET GT SCH (09:02)
[2021-10-08] MEDS: DILTIAZEM HCL 30 MG TABLET GT SCH ×2 (09:02→21:00)
[2021-10-08] MEDS: FERROUS SULFATE - FOR SA ONLY 330 MG/7.5 ML UDC GT SCH (09:02)
[2021-10-08] MEDS: LEVETIRACETAM SOL (5 ML) 100 MG/ML UDC GT SCH ×2 (09:02→21:01)
[2021-10-08] MEDS: ACIDOPHILUS/BULGARICUS 1 EACH TAB.CHEW GT SCH ×2 (09:03→16:55)
[2021-10-08] MEDS: LISINOPRIL (5MG) 5 MG TABLET GT SCH (09:04)
[2021-10-08] MEDS: ZINC SULFATE 220 MG CAPSULE GT SCH (09:04)
[2021-10-08] MEDS: VITAMINS A AND D 56.7 GM TUBE TP SCH ×4 (09:04→21:02)
[2021-10-08] MEDS: ASCORBIC ACID 500 MG TABLET GT SCH (09:04)
[2021-10-08] MEDS: MULTIVIT W/MINERALS 1 TAB TABLET GT SCH (09:04)
[2021-10-08 12:22] VITALS: BP 131/76
--- NOTE | 2021-10-08 15:30 | NUR ---
Facility Update: ORACIO notified patient's daughter, Kelly via email that: No Sub-Acute employee tested positive for COVID-19. We continue to following [facility] infection control guidelines. [facility] will continue response testing and screened for symptoms. Staff will be tested twice a week and patients will be tested on a weekly basis. All visitation Guidelines remain the same". ORACIO educated family about latest guidelines from [facility].
[2021-10-08 19:40] VITALS: BP 101/65
[2021-10-08] MEDS: ATORVASTATIN 10 MG TABLET GT SCH (21:02)
[2021-10-08] MEDS: POLYETHYLENE GLYCOL 3350 17 GM POWD.PACK GT SCH (21:02)
[2021-10-08] MEDS: ENOXAPARIN SODIUM 40 MG/0.4 ML DISP.SYRIN SQ SCH (21:03)
[2021-10-08] MEDS: INSULIN GLARGINE,BASAGLAR 100 UNIT/ML INSULN.PEN SQ SCH (21:49)
[2021-10-09] MEDS: POLYVINYL ALCOHOL 15 ML BOTTLE EACHEYE SCH ×5 (00:18→23:07)
[2021-10-09] MEDS: BLOOD SUGAR DIAGNOSTIC 1 EACH STRIP IN SCH ×5 (00:18→23:08)
[2021-10-09] MEDS: INSULIN ASPART/LISPRO 100 UNIT/ML CARTRIDGE SQ PRN ×5 (00:18→23:08)
[2021-10-09] MEDS: ALBUTEROL FS 2.5 MG/3 ML VIAL.NEB NEB SCH ×4 (01:45→20:18)
[2021-10-09] MEDS: IPRATROPIUM NEB FS 0.5 MG/2.5 ML AMPUL.NEB NEB SCH ×4 (01:45→20:18)
[2021-10-09 02:04] VITALS: BP 105/75
--- NOTE | 2021-10-09 02:14 | NUR ---
RT PT RECEIVED ON COOL AEROSOL ON 5LPM 28%. NO RESPIRATORY DISTRESS. TOLERATED BREATHING TREATMENT AND SUCTIONING. TRACH IS SECURED. SPARE AND AMBU BAG AT BEDSIDE. Addendum: 10/09/21 at 0215 by Ankur Kang RT Amended: Links added.
[2021-10-09] MEDS: OMEPRAZOLE 20 MG CAPSULE.DR GT SCH (05:42)
[2021-10-09] MEDS: GLUCERNA 1.2 1,000 ML BOTTLE GT PRN ×2 (05:42→22:04)
--- NOTE | 2021-10-09 07:30 | NUR ---
RT NOTE: PT RECEIVED ALERT AND STABLE. UNABLE TO FOLLOW INSTRUCTION. RESPONSIVE TO STIM. PT ON CA AND ON CORRECT LITER FLOW. BAG AND MASK AT BEDSIDE AND SPARE TRACH. PT NOT IN DISTRESS. BILAT CHEST RISE AND BREATH SOUNDS OBSERVED. TRACH IS SECURE AND PATENT WILL CONTINUE CURRENT THERAPY Addendum: 10/09/21 at 1115 by JESSICA RUSH RT Amended: Links added.
[2021-10-09 07:38] VITALS: BP 116/65
[2021-10-09] MEDS: DILTIAZEM HCL 30 MG TABLET GT SCH ×2 (08:20→21:55)
[2021-10-09] MEDS: FERROUS SULFATE - FOR SA ONLY 330 MG/7.5 ML UDC GT SCH (08:22)
[2021-10-09] MEDS: DOCUSATE SODIUM LIQ 100 MG/10 ML UDC GT SCH ×2 (08:22→17:00)
[2021-10-09] MEDS: SITAGLIPTIN PHOSPHATE 50 MG TABLET GT SCH (08:22)
[2021-10-09] MEDS: LISINOPRIL (5MG) 5 MG TABLET GT SCH (08:23)
[2021-10-09] MEDS: LEVETIRACETAM SOL (5 ML) 100 MG/ML UDC GT SCH ×2 (08:23→21:56)
[2021-10-09] MEDS: ACIDOPHILUS/BULGARICUS 1 EACH TAB.CHEW GT SCH ×2 (08:23→17:00)
[2021-10-09] MEDS: MULTIVIT W/MINERALS 1 TAB TABLET GT SCH (08:24)
[2021-10-09] MEDS: VITAMINS A AND D 56.7 GM TUBE TP SCH ×4 (08:24→21:56)
[2021-10-09] MEDS: ZINC SULFATE 220 MG CAPSULE GT SCH (08:24)
[2021-10-09] MEDS: ASCORBIC ACID 500 MG TABLET GT SCH (08:24)
[2021-10-09] MEDS: HYDROGEN PEROXIDE 480 ML BOTTLE TP SCH ×2 (09:00→21:15)
[2021-10-09 12:16] VITALS: BP 101/62
--- NOTE | 2021-10-09 20:19 | NUR ---
RT RECEIVED PT ON CA 28% 5LPM. NO RESP DISTRESS. TOLERATES BREATHING TREATMENTS WELL. TRACH SECURE AND PATENT. NO SOB. SPARE AND AMBU AT BEDSIDE. Addendum: 10/09/21 at 2020 by Ankur Kang RT Amended: Links added.
[2021-10-09 21:14] VITALS: BP 114/65
[2021-10-09] MEDS: POLYETHYLENE GLYCOL 3350 17 GM POWD.PACK GT SCH (21:57)
[2021-10-09] MEDS: ATORVASTATIN 10 MG TABLET GT SCH (21:57)
[2021-10-09] MEDS: INSULIN GLARGINE,BASAGLAR 100 UNIT/ML INSULN.PEN SQ SCH (22:01)
[2021-10-09] MEDS: ENOXAPARIN SODIUM 40 MG/0.4 ML DISP.SYRIN SQ SCH (22:02)
[2021-10-10 01:16] VITALS: BP 130/68
[2021-10-10] MEDS: IPRATROPIUM NEB FS 0.5 MG/2.5 ML AMPUL.NEB NEB SCH ×4 (01:28→20:08)
[2021-10-10] MEDS: ALBUTEROL FS 2.5 MG/3 ML VIAL.NEB NEB SCH ×4 (01:28→20:08)
[2021-10-10] MEDS: OMEPRAZOLE 20 MG CAPSULE.DR GT SCH (05:13)
[2021-10-10] MEDS: BLOOD SUGAR DIAGNOSTIC 1 EACH STRIP IN SCH ×4 (05:13→23:17)
[2021-10-10] MEDS: POLYVINYL ALCOHOL 15 ML BOTTLE EACHEYE SCH ×4 (05:13→23:17)
[2021-10-10] MEDS: INSULIN ASPART/LISPRO 100 UNIT/ML CARTRIDGE SQ PRN ×2 (05:14→23:17)
[2021-10-10 07:36] VITALS: BP 127/75
[2021-10-10] MEDS: HYDROGEN PEROXIDE 480 ML BOTTLE TP SCH ×2 (08:24→21:06)
[2021-10-10] MEDS ORDERED: NYSTATIN TOP POWDER 15 GM BOTTLE TP SCH (09:00)
[2021-10-10] MEDS: DILTIAZEM HCL 30 MG TABLET GT SCH ×2 (09:09→20:53)
[2021-10-10] MEDS: FERROUS SULFATE - FOR SA ONLY 330 MG/7.5 ML UDC GT SCH (09:09)
[2021-10-10] MEDS: SITAGLIPTIN PHOSPHATE 50 MG TABLET GT SCH (09:09)
[2021-10-10] MEDS: DOCUSATE SODIUM LIQ 100 MG/10 ML UDC GT SCH ×2 (09:09→17:18)
[2021-10-10] MEDS: LEVETIRACETAM SOL (5 ML) 100 MG/ML UDC GT SCH ×2 (09:09→20:53)
[2021-10-10] MEDS: ASCORBIC ACID 500 MG TABLET GT SCH (09:10)
[2021-10-10] MEDS: MULTIVIT W/MINERALS 1 TAB TABLET GT SCH (09:10)
[2021-10-10] MEDS: LISINOPRIL (5MG) 5 MG TABLET GT SCH (09:10)
[2021-10-10] MEDS: ZINC SULFATE 220 MG CAPSULE GT SCH (09:10)
[2021-10-10] MEDS: ACIDOPHILUS/BULGARICUS 1 EACH TAB.CHEW GT SCH ×2 (09:10→17:18)
[2021-10-10] MEDS: VITAMINS A AND D 56.7 GM TUBE TP SCH ×4 (09:11→20:53)
--- NOTE | 2021-10-10 11:18 | NUR ---
RT Patient received on cool aerosol 28% (5LPM). Breathing tx and suction tolerated well. Trach tube patent and secure. Back up trach and ambu bag at bedside. No SOB or respiratory distress noted at this time.
--- NOTE | 2021-10-10 15:00 | NUR ---
Tried to call Kelly Wong to update her about having a resident that tested positive for COVID-19 but her number is not in service.
--- NOTE | 2021-10-10 20:30 | NUR ---
RT NOTE Patient received stable on 28% cool aerosol , trach tube midline and secured. Will continue to monitor throughout the shift. Addendum: 10/10/21 at 2250 by SHYANN BARRETT RT Amended: Links added.
[2021-10-10 20:35] VITALS: BP 132/76
[2021-10-10] MEDS: NYSTATIN TOP POWDER 15 GM BOTTLE TP SCH (20:53)
[2021-10-10] MEDS: ATORVASTATIN 10 MG TABLET GT SCH (21:02)
[2021-10-10] MEDS: POLYETHYLENE GLYCOL 3350 17 GM POWD.PACK GT SCH (21:03)
[2021-10-10] MEDS: ENOXAPARIN SODIUM 40 MG/0.4 ML DISP.SYRIN SQ SCH (21:03)
[2021-10-10] MEDS: INSULIN GLARGINE,BASAGLAR 100 UNIT/ML INSULN.PEN SQ SCH (21:40)
[2021-10-11] MEDS: ALBUTEROL FS 2.5 MG/3 ML VIAL.NEB NEB SCH ×4 (01:41→20:00)
[2021-10-11] MEDS: IPRATROPIUM NEB FS 0.5 MG/2.5 ML AMPUL.NEB NEB SCH ×4 (01:41→20:00)
[2021-10-11] MEDS: OMEPRAZOLE 20 MG CAPSULE.DR GT SCH (05:37)
[2021-10-11] MEDS: POLYVINYL ALCOHOL 15 ML BOTTLE EACHEYE SCH ×3 (05:37→17:14)
[2021-10-11] MEDS: BLOOD SUGAR DIAGNOSTIC 1 EACH STRIP IN SCH ×3 (05:37→17:58)
[2021-10-11] MEDS: INSULIN ASPART/LISPRO 100 UNIT/ML CARTRIDGE SQ PRN ×3 (05:37→17:58)
[2021-10-11] MEDS: GLUCERNA 1.2 1,000 ML BOTTLE GT PRN (06:42)
[2021-10-11 07:37] VITALS: BP 104/66
--- NOTE | 2021-10-11 07:50 | NUR ---
RT NOTE: PT RECEIVED ALERT AND STABLE. UNABLE TO FOLLOW INSTRUCTION. RESPONSIVE TO STIM. PT ON CA AND ON CORRECT LITER FLOW. BAG AND MASK AT BEDSIDE AND SPARE TRACH. PT NOT IN DISTRESS. BILAT CHEST RISE AND BREATH SOUNDS OBSERVED. TRACH IS SECURE AND PATENT WILL CONTINUE CURRENT THERAPY Addendum: 10/11/21 at 1140 by JESSICA RUSH RT Amended: Links added.
[2021-10-11] MEDS: NYSTATIN TOP POWDER 15 GM BOTTLE TP SCH ×2 (09:00→20:10)
[2021-10-11] MEDS: HYDROGEN PEROXIDE 480 ML BOTTLE TP SCH ×2 (09:00→21:10)
[2021-10-11] MEDS: DILTIAZEM HCL 30 MG TABLET GT SCH ×2 (09:00→20:08)
[2021-10-11] MEDS: VITAMINS A AND D 56.7 GM TUBE TP SCH ×4 (09:00→20:10)
[2021-10-11] MEDS: MULTIVIT W/MINERALS 1 TAB TABLET GT SCH (09:00)
[2021-10-11] MEDS: ZINC SULFATE 220 MG CAPSULE GT SCH (09:00)
[2021-10-11] MEDS: LISINOPRIL (5MG) 5 MG TABLET GT SCH (09:00)
[2021-10-11] MEDS: LEVETIRACETAM SOL (5 ML) 100 MG/ML UDC GT SCH ×2 (09:00→20:09)
[2021-10-11] MEDS: ASCORBIC ACID 500 MG TABLET GT SCH (09:00)
[2021-10-11] MEDS: DOCUSATE SODIUM LIQ 100 MG/10 ML UDC GT SCH ×2 (09:00→17:14)
[2021-10-11] MEDS: FERROUS SULFATE - FOR SA ONLY 330 MG/7.5 ML UDC GT SCH (09:00)
[2021-10-11] MEDS: SITAGLIPTIN PHOSPHATE 50 MG TABLET GT SCH (09:00)
[2021-10-11] MEDS: ACIDOPHILUS/BULGARICUS 1 EACH TAB.CHEW GT SCH ×2 (09:00→17:14)
--- NOTE | 2021-10-11 09:49 | NUR ---
Called pt's daughter Kelly to notify her of a positive Covid case in the facility and to offer the Covid-19 vaccine again. An automated message said "the subscriber is out of service."
--- NOTE | 2021-10-11 10:40 | NUR ---
Facility Update: ORACIO emailed the patient's daughter, Kelly Wong ([email or web address]) to notify her that another Sub-Acute tested positive for COVID over the weekend and nurses were trying to get a hold of her and her number sound disconnected. SW also notified her that her patient can receive Moderna vaccine and she can call the nurses station and speak to charge nurse about it. ORACIO also emailed Kelly the 07/22/21 Moderna vaccine informational sheet . ORACIO will be available as needed
[2021-10-11 13:52] VITALS: BP 103/67
[2021-10-11 20:32] VITALS: BP 109/69
[2021-10-11] MEDS: POLYETHYLENE GLYCOL 3350 17 GM POWD.PACK GT SCH (21:15)
[2021-10-11] MEDS: ATORVASTATIN 10 MG TABLET GT SCH (21:15)
[2021-10-11] MEDS: INSULIN GLARGINE,BASAGLAR 100 UNIT/ML INSULN.PEN SQ SCH (21:19)
[2021-10-11] MEDS: ENOXAPARIN SODIUM 40 MG/0.4 ML DISP.SYRIN SQ SCH (21:20)
[2021-10-12] MEDS: BLOOD SUGAR DIAGNOSTIC 1 EACH STRIP IN SCH ×5 (00:10→23:47)
[2021-10-12] MEDS: POLYVINYL ALCOHOL 15 ML BOTTLE EACHEYE SCH ×5 (00:10→23:47)
[2021-10-12] MEDS: INSULIN ASPART/LISPRO 100 UNIT/ML CARTRIDGE SQ PRN ×5 (00:10→23:48)
[2021-10-12] MEDS: IPRATROPIUM NEB FS 0.5 MG/2.5 ML AMPUL.NEB NEB SCH ×4 (01:45→20:25)
[2021-10-12] MEDS: ALBUTEROL FS 2.5 MG/3 ML VIAL.NEB NEB SCH ×4 (01:45→20:25)
[2021-10-12] MEDS: OMEPRAZOLE 20 MG CAPSULE.DR GT SCH (05:06)
[2021-10-12] MEDS: GLUCERNA 1.2 1,000 ML BOTTLE GT PRN (05:08)
--- NOTE | 2021-10-12 06:03 | NUR ---
RT Patient remains stable on 28% cool aerosol , trach tube midline and secured.No respiratory distress noted throughout the shift. Addendum: 10/12/21 at 0604 by SHYANN BARRETT RT Amended: Links added.
[2021-10-12] MEDS: SITAGLIPTIN PHOSPHATE 50 MG TABLET GT SCH (08:28)
[2021-10-12] MEDS: FERROUS SULFATE - FOR SA ONLY 330 MG/7.5 ML UDC GT SCH (08:28)
[2021-10-12] MEDS: DILTIAZEM HCL 30 MG TABLET GT SCH ×2 (08:28→21:00)
[2021-10-12] MEDS: DOCUSATE SODIUM LIQ 100 MG/10 ML UDC GT SCH ×2 (08:28→17:06)
[2021-10-12] MEDS: LISINOPRIL (5MG) 5 MG TABLET GT SCH (08:29)
[2021-10-12] MEDS: VITAMINS A AND D 56.7 GM TUBE TP SCH ×4 (08:29→21:21)
[2021-10-12] MEDS: MULTIVIT W/MINERALS 1 TAB TABLET GT SCH (08:29)
[2021-10-12] MEDS: ASCORBIC ACID 500 MG TABLET GT SCH (08:29)
[2021-10-12] MEDS: ZINC SULFATE 220 MG CAPSULE GT SCH (08:29)
[2021-10-12] MEDS: LEVETIRACETAM SOL (5 ML) 100 MG/ML UDC GT SCH ×2 (08:29→21:21)
[2021-10-12] MEDS: NYSTATIN TOP POWDER 15 GM BOTTLE TP SCH ×2 (08:29→21:21)
[2021-10-12] MEDS: ACIDOPHILUS/BULGARICUS 1 EACH TAB.CHEW GT SCH ×2 (08:29→17:06)
[2021-10-12 08:45] VITALS: BP 99/62
[2021-10-12] MEDS: HYDROGEN PEROXIDE 480 ML BOTTLE TP SCH ×2 (09:30→20:26)
--- NOTE | 2021-10-12 10:35 | NUR ---
Facility Update: ORACIO notified patient's daughter, cristy via email that: Please note that a Sub-Acute employee tested positive for COVID-19. We continue to following [facility] of [facility] infection control guidelines. [facility] will continue response testing and screened for symptoms. Staff will be tested twice a week and patients will be tested on a weekly basis. All visitation Guidelines remain the same". ORACIO also sent latest visitation guidelines.
[2021-10-12 13:19] VITALS: BP 127/77
--- NOTE | 2021-10-12 13:24 | NUR ---
Called pt's daughter Kelly again today to offer the Covid-19 vaccine for the pt, but automated message said "the subscriber is out of service."
--- NOTE | 2021-10-12 13:28 | NUR ---
Called Kelly Wong' work number and spoke with her. Offered the Covid-19 vaccine to her for pt but she declined it. Explained risks and benefits but she still declined. Informed her that in case she changes her mind she can always call the facility and pt will be given the vaccine.
--- NOTE | 2021-10-12 17:29 | NUR ---
RT Patient remains stable on 28% cool aerosol , trach tube midline and secured.No respiratory distress noted throughout the shift.
[2021-10-12 21:03] VITALS: BP 103/52
[2021-10-12] MEDS: ATORVASTATIN 10 MG TABLET GT SCH (21:21)
[2021-10-12] MEDS: POLYETHYLENE GLYCOL 3350 17 GM POWD.PACK GT SCH (21:21)
[2021-10-12] MEDS: INSULIN GLARGINE,BASAGLAR 100 UNIT/ML INSULN.PEN SQ SCH (21:24)
[2021-10-12] MEDS: ENOXAPARIN SODIUM 40 MG/0.4 ML DISP.SYRIN SQ SCH (21:24)
[2021-10-13] MEDS: ALBUTEROL FS 2.5 MG/3 ML VIAL.NEB NEB SCH ×4 (01:50→19:06)
[2021-10-13] MEDS: IPRATROPIUM NEB FS 0.5 MG/2.5 ML AMPUL.NEB NEB SCH ×4 (01:50→19:06)
[2021-10-13] MEDS: OMEPRAZOLE 20 MG CAPSULE.DR GT SCH (05:48)
[2021-10-13] MEDS: POLYVINYL ALCOHOL 15 ML BOTTLE EACHEYE SCH ×4 (05:48→23:53)
[2021-10-13] MEDS: BLOOD SUGAR DIAGNOSTIC 1 EACH STRIP IN SCH ×4 (05:49→23:53)
[2021-10-13] MEDS: INSULIN ASPART/LISPRO 100 UNIT/ML CARTRIDGE SQ PRN ×4 (05:49→23:55)
[2021-10-13 07:44] VITALS: BP 110/59
[2021-10-13] MEDS: HYDROGEN PEROXIDE 480 ML BOTTLE TP SCH ×2 (08:32→20:21)
[2021-10-13] MEDS: DILTIAZEM HCL 30 MG TABLET GT SCH ×2 (08:59→21:57)
[2021-10-13] MEDS: FERROUS SULFATE - FOR SA ONLY 330 MG/7.5 ML UDC GT SCH (09:00)
[2021-10-13] MEDS: SITAGLIPTIN PHOSPHATE 50 MG TABLET GT SCH (09:00)
[2021-10-13] MEDS: ACIDOPHILUS/BULGARICUS 1 EACH TAB.CHEW GT SCH ×2 (09:00→17:33)
[2021-10-13] MEDS: DOCUSATE SODIUM LIQ 100 MG/10 ML UDC GT SCH ×2 (09:00→17:33)
[2021-10-13] MEDS: LEVETIRACETAM SOL (5 ML) 100 MG/ML UDC GT SCH ×2 (09:00→21:57)
[2021-10-13] MEDS: ASCORBIC ACID 500 MG TABLET GT SCH (09:01)
[2021-10-13] MEDS: NYSTATIN TOP POWDER 15 GM BOTTLE TP SCH ×2 (09:01→21:59)
[2021-10-13] MEDS: VITAMINS A AND D 56.7 GM TUBE TP SCH ×4 (09:01→21:59)
[2021-10-13] MEDS: ZINC SULFATE 220 MG CAPSULE GT SCH (09:01)
[2021-10-13] MEDS: LISINOPRIL (5MG) 5 MG TABLET GT SCH (09:01)
[2021-10-13] MEDS: MULTIVIT W/MINERALS 1 TAB TABLET GT SCH (09:01)
[2021-10-13] MEDS: GLUCERNA 1.2 1,000 ML BOTTLE GT PRN (12:11)
[2021-10-13 12:18] VITALS: BP 126/71
--- NOTE | 2021-10-13 20:21 | NUR ---
RT NOTE RCVD PT TRACHED ON CA 28%,5L. PT TOLERATING TX WELL, NO ADVERSE REACTION NOTED. SUCTIONED W/ MODERATE AMOUNT OF YELLOW THICK SECRETIONS. NO S/S OF SOB OR RESP DISTRESS NOTED AT THIS TIME.
[2021-10-13 20:33] VITALS: BP 111/64
[2021-10-13] MEDS: POLYETHYLENE GLYCOL 3350 17 GM POWD.PACK GT SCH (21:59)
[2021-10-13] MEDS: ATORVASTATIN 10 MG TABLET GT SCH (21:59)
[2021-10-13] MEDS: INSULIN GLARGINE,BASAGLAR 100 UNIT/ML INSULN.PEN SQ SCH (22:02)
[2021-10-13] MEDS: ENOXAPARIN SODIUM 40 MG/0.4 ML DISP.SYRIN SQ SCH (22:03)
[2021-10-14] MEDS: IPRATROPIUM NEB FS 0.5 MG/2.5 ML AMPUL.NEB NEB SCH ×4 (00:36→19:36)
[2021-10-14] MEDS: ALBUTEROL FS 2.5 MG/3 ML VIAL.NEB NEB SCH ×4 (00:36→19:36)
[2021-10-14] MEDS: OMEPRAZOLE 20 MG CAPSULE.DR GT SCH (05:42)
[2021-10-14] MEDS: BLOOD SUGAR DIAGNOSTIC 1 EACH STRIP IN SCH ×4 (05:42→23:23)
[2021-10-14] MEDS: POLYVINYL ALCOHOL 15 ML BOTTLE EACHEYE SCH ×4 (05:42→23:23)
[2021-10-14] MEDS: GLUCERNA 1.2 1,000 ML BOTTLE GT PRN (05:42)
[2021-10-14] MEDS: INSULIN ASPART/LISPRO 100 UNIT/ML CARTRIDGE SQ PRN ×4 (05:42→23:25)
[2021-10-14 07:51] VITALS: BP 111/59
[2021-10-14] MEDS: HYDROGEN PEROXIDE 480 ML BOTTLE TP SCH ×2 (08:05→19:36)
[2021-10-14] MEDS: SITAGLIPTIN PHOSPHATE 50 MG TABLET GT SCH (08:46)
[2021-10-14] MEDS: DILTIAZEM HCL 30 MG TABLET GT SCH ×2 (08:46→21:00)
[2021-10-14] MEDS: LEVETIRACETAM SOL (5 ML) 100 MG/ML UDC GT SCH ×2 (08:46→21:09)
[2021-10-14] MEDS: DOCUSATE SODIUM LIQ 100 MG/10 ML UDC GT SCH ×2 (08:46→17:29)
[2021-10-14] MEDS: ACIDOPHILUS/BULGARICUS 1 EACH TAB.CHEW GT SCH ×2 (08:46→17:29)
[2021-10-14] MEDS: FERROUS SULFATE - FOR SA ONLY 330 MG/7.5 ML UDC GT SCH (08:46)
[2021-10-14] MEDS: VITAMINS A AND D 56.7 GM TUBE TP SCH ×4 (08:47→21:09)
[2021-10-14] MEDS: LISINOPRIL (5MG) 5 MG TABLET GT SCH (08:47)
[2021-10-14] MEDS: NYSTATIN TOP POWDER 15 GM BOTTLE TP SCH ×2 (08:47→21:09)
[2021-10-14] MEDS: ZINC SULFATE 220 MG CAPSULE GT SCH (08:47)
[2021-10-14] MEDS: ASCORBIC ACID 500 MG TABLET GT SCH (08:47)
[2021-10-14] MEDS: MULTIVIT W/MINERALS 1 TAB TABLET GT SCH (08:47)
--- NOTE | 2021-10-14 09:20 | NUR ---
Virtual rounds done BROADCAST JOURNALIST VANITA Brooks given.
[2021-10-14 13:59] VITALS: BP 121/69
[2021-10-14] MEDS: POLYETHYLENE GLYCOL 3350 17 GM POWD.PACK GT SCH (21:09)
[2021-10-14] MEDS: ATORVASTATIN 10 MG TABLET GT SCH (21:09)
[2021-10-14] MEDS: INSULIN GLARGINE,BASAGLAR 100 UNIT/ML INSULN.PEN SQ SCH (21:10)
[2021-10-14] MEDS: ENOXAPARIN SODIUM 40 MG/0.4 ML DISP.SYRIN SQ SCH (21:11)
[2021-10-14 21:59] VITALS: BP 107/66
[2021-10-15 01:19] VITALS: BP 109/66
[2021-10-15] MEDS: IPRATROPIUM NEB FS 0.5 MG/2.5 ML AMPUL.NEB NEB SCH ×4 (01:36→20:14)
[2021-10-15] MEDS: ALBUTEROL FS 2.5 MG/3 ML VIAL.NEB NEB SCH ×4 (01:36→20:14)
--- NOTE | 2021-10-15 04:45 | NUR ---
RT PT RECVD ON 28% CA VIA T-BAR WITH TRACH PATENT AND SECURED. SUCTION PRN, NEB TX GIVEN AND [place] WELL. SPO2 >92%. NO SOB NOTED. AMBU AND SPARE TRACH AT BEDSIDE.
[2021-10-15] MEDS: OMEPRAZOLE 20 MG CAPSULE.DR GT SCH (05:32)
[2021-10-15] MEDS: INSULIN ASPART/LISPRO 100 UNIT/ML CARTRIDGE SQ PRN ×3 (05:32→17:24)
[2021-10-15] MEDS: POLYVINYL ALCOHOL 15 ML BOTTLE EACHEYE SCH ×3 (05:32→17:06)
[2021-10-15] MEDS: BLOOD SUGAR DIAGNOSTIC 1 EACH STRIP IN SCH ×3 (05:32→17:23)
[2021-10-15 07:21] VITALS: BP 106/58
[2021-10-15] MEDS: NYSTATIN TOP POWDER 15 GM BOTTLE TP SCH ×2 (09:00→20:04)
[2021-10-15] MEDS: DILTIAZEM HCL 30 MG TABLET GT SCH ×2 (09:00→20:04)
[2021-10-15] MEDS: HYDROGEN PEROXIDE 480 ML BOTTLE TP SCH ×2 (09:30→20:14)
[2021-10-15] MEDS: FERROUS SULFATE - FOR SA ONLY 330 MG/7.5 ML UDC GT SCH (09:45)
[2021-10-15] MEDS: SITAGLIPTIN PHOSPHATE 50 MG TABLET GT SCH (09:45)
[2021-10-15] MEDS: DOCUSATE SODIUM LIQ 100 MG/10 ML UDC GT SCH ×2 (09:45→17:06)
[2021-10-15] MEDS: LEVETIRACETAM SOL (5 ML) 100 MG/ML UDC GT SCH ×2 (09:45→20:04)
[2021-10-15] MEDS: ACIDOPHILUS/BULGARICUS 1 EACH TAB.CHEW GT SCH ×2 (09:45→17:06)
[2021-10-15] MEDS: ASCORBIC ACID 500 MG TABLET GT SCH (09:46)
[2021-10-15] MEDS: MULTIVIT W/MINERALS 1 TAB TABLET GT SCH (09:46)
[2021-10-15] MEDS: VITAMINS A AND D 56.7 GM TUBE TP SCH ×4 (09:46→20:04)
[2021-10-15] MEDS: LISINOPRIL (5MG) 5 MG TABLET GT SCH (09:46)
[2021-10-15] MEDS: ZINC SULFATE 220 MG CAPSULE GT SCH (09:46)
[2021-10-15 11:59] VITALS: BP 102/57
--- NOTE | 2021-10-15 12:55 | NUR ---
RT NOTE Received pt on CA @ 28%. Pt seems to be jeannine. current resp orders, no SOB noted. SpO2 >92%. Sx PRN. Neb Tx given w/ no adverse reactions. Trach care done. Airway is patent/secured.
[2021-10-15 19:39] VITALS: BP 116/71
[2021-10-15] MEDS: ATORVASTATIN 10 MG TABLET GT SCH (21:24)
[2021-10-15] MEDS: POLYETHYLENE GLYCOL 3350 17 GM POWD.PACK GT SCH (21:24)
[2021-10-15] MEDS: INSULIN GLARGINE,BASAGLAR 100 UNIT/ML INSULN.PEN SQ SCH (21:25)
[2021-10-15] MEDS: ENOXAPARIN SODIUM 40 MG/0.4 ML DISP.SYRIN SQ SCH (21:26)
[2021-10-16] MEDS: BLOOD SUGAR DIAGNOSTIC 1 EACH STRIP IN SCH ×5 (00:02→23:15)
[2021-10-16] MEDS: POLYVINYL ALCOHOL 15 ML BOTTLE EACHEYE SCH ×5 (00:02→23:08)
[2021-10-16] MEDS: INSULIN ASPART/LISPRO 100 UNIT/ML CARTRIDGE SQ PRN ×5 (00:02→23:15)
[2021-10-16 00:12] VITALS: BP 111/56
[2021-10-16] MEDS: IPRATROPIUM NEB FS 0.5 MG/2.5 ML AMPUL.NEB NEB SCH ×4 (01:55→20:18)
[2021-10-16] MEDS: ALBUTEROL FS 2.5 MG/3 ML VIAL.NEB NEB SCH ×4 (01:55→20:18)
[2021-10-16] MEDS: OMEPRAZOLE 20 MG CAPSULE.DR GT SCH (05:37)
--- NOTE | 2021-10-16 06:14 | NUR ---
T PT RECVD ON 28% CA VIA T-BAR WITH TRACH PATENT AND SECURED. SUCTION PRN, NEB TX GIVEN AND [place] WELL. SPO2 >92%. NO SOB NOTED. AMBU AND SPARE TRACH AT BEDSIDE. TRACH CARE DONE
[2021-10-16] MEDS: GLUCERNA 1.2 1,000 ML BOTTLE GT PRN (06:15)
[2021-10-16 08:00] VITALS: BP 118/70
[2021-10-16] MEDS: DOCUSATE SODIUM LIQ 100 MG/10 ML UDC GT SCH ×2 (09:30→16:07)
[2021-10-16] MEDS: DILTIAZEM HCL 30 MG TABLET GT SCH ×2 (09:30→20:20)
[2021-10-16] MEDS: LEVETIRACETAM SOL (5 ML) 100 MG/ML UDC GT SCH ×2 (09:30→20:20)
[2021-10-16] MEDS: FERROUS SULFATE - FOR SA ONLY 330 MG/7.5 ML UDC GT SCH (09:30)
[2021-10-16] MEDS: ACIDOPHILUS/BULGARICUS 1 EACH TAB.CHEW GT SCH ×2 (09:30→16:07)
[2021-10-16] MEDS: SITAGLIPTIN PHOSPHATE 50 MG TABLET GT SCH (09:30)
[2021-10-16] MEDS: NYSTATIN TOP POWDER 15 GM BOTTLE TP SCH ×2 (09:31→20:20)
[2021-10-16] MEDS: MULTIVIT W/MINERALS 1 TAB TABLET GT SCH (09:31)
[2021-10-16] MEDS: LISINOPRIL (5MG) 5 MG TABLET GT SCH (09:31)
[2021-10-16] MEDS: ASCORBIC ACID 500 MG TABLET GT SCH (09:31)
[2021-10-16] MEDS: ZINC SULFATE 220 MG CAPSULE GT SCH (09:31)
[2021-10-16] MEDS: VITAMINS A AND D 56.7 GM TUBE TP SCH ×4 (09:31→20:20)
[2021-10-16] MEDS: HYDROGEN PEROXIDE 480 ML BOTTLE TP SCH ×2 (09:56→20:18)
[2021-10-16 12:18] VITALS: BP 122/69
[2021-10-16 21:01] VITALS: BP 101/57
[2021-10-16] MEDS: POLYETHYLENE GLYCOL 3350 17 GM POWD.PACK GT SCH (21:06)
[2021-10-16] MEDS: ATORVASTATIN 10 MG TABLET GT SCH (21:06)
[2021-10-16] MEDS: INSULIN GLARGINE,BASAGLAR 100 UNIT/ML INSULN.PEN SQ SCH (21:07)
[2021-10-16] MEDS: ENOXAPARIN SODIUM 40 MG/0.4 ML DISP.SYRIN SQ SCH (21:07)
[2021-10-17] MEDS: IPRATROPIUM NEB FS 0.5 MG/2.5 ML AMPUL.NEB NEB SCH ×4 (01:55→19:03)
[2021-10-17] MEDS: ALBUTEROL FS 2.5 MG/3 ML VIAL.NEB NEB SCH ×4 (01:55→19:04)
--- NOTE | 2021-10-17 04:13 | NUR ---
RT PT RECVD ON 28% CA VIA T-BAR, TRACH IS PATENT AND SECURED. TX GIVEN AND [place] WELL. NO SOB NOTED. TRACH CARE DONE. SPARE TRACH AND AMBU AT BEDSIDE.
[2021-10-17] MEDS: OMEPRAZOLE 20 MG CAPSULE.DR GT SCH (05:01)
[2021-10-17] MEDS: POLYVINYL ALCOHOL 15 ML BOTTLE EACHEYE SCH ×4 (05:01→23:51)
[2021-10-17] MEDS: GLUCERNA 1.2 1,000 ML BOTTLE GT PRN (05:02)
[2021-10-17] MEDS: BLOOD SUGAR DIAGNOSTIC 1 EACH STRIP IN SCH ×4 (05:13→23:51)
[2021-10-17] MEDS: INSULIN ASPART/LISPRO 100 UNIT/ML CARTRIDGE SQ PRN (05:13)
[2021-10-17 07:24] VITALS: BP 108/70
[2021-10-17] MEDS: DILTIAZEM HCL 30 MG TABLET GT SCH ×2 (08:48→20:29)
[2021-10-17] MEDS: LEVETIRACETAM SOL (5 ML) 100 MG/ML UDC GT SCH ×2 (08:48→20:29)
[2021-10-17] MEDS: DOCUSATE SODIUM LIQ 100 MG/10 ML UDC GT SCH ×2 (08:48→17:28)
[2021-10-17] MEDS: SITAGLIPTIN PHOSPHATE 50 MG TABLET GT SCH (08:48)
[2021-10-17] MEDS: FERROUS SULFATE - FOR SA ONLY 330 MG/7.5 ML UDC GT SCH (08:48)
[2021-10-17] MEDS: MULTIVIT W/MINERALS 1 TAB TABLET GT SCH (08:49)
[2021-10-17] MEDS: ZINC SULFATE 220 MG CAPSULE GT SCH (08:49)
[2021-10-17] MEDS: ASCORBIC ACID 500 MG TABLET GT SCH (08:49)
[2021-10-17] MEDS: LISINOPRIL (5MG) 5 MG TABLET GT SCH (08:49)
[2021-10-17] MEDS: ACIDOPHILUS/BULGARICUS 1 EACH TAB.CHEW GT SCH ×2 (08:49→17:28)
[2021-10-17] MEDS: VITAMINS A AND D 56.7 GM TUBE TP SCH ×4 (08:56→20:30)
[2021-10-17] MEDS: NYSTATIN TOP POWDER 15 GM BOTTLE TP SCH ×2 (08:56→20:30)
[2021-10-17] MEDS: HYDROGEN PEROXIDE 480 ML BOTTLE TP SCH ×2 (09:02→20:25)
[2021-10-17 13:30] VITALS: BP 116/73
--- NOTE | 2021-10-17 15:15 | NUR ---
Called pt's daughter Kelly to notify her of a positive Covid case in the facility An automated message said "the subscriber is out of service." Called and spoke to her other sister Dulce and made aware of a staff positive of covid 19, will follow [facility] protocol and will continue to monitor staff and patient for s/s of covid 19.
[2021-10-17 20:48] VITALS: BP 97/64
[2021-10-17] MEDS: POLYETHYLENE GLYCOL 3350 17 GM POWD.PACK GT SCH (22:25)
[2021-10-17] MEDS: ATORVASTATIN 10 MG TABLET GT SCH (22:25)
[2021-10-17] MEDS: ENOXAPARIN SODIUM 40 MG/0.4 ML DISP.SYRIN SQ SCH (22:27)
[2021-10-17] MEDS: INSULIN GLARGINE,BASAGLAR 100 UNIT/ML INSULN.PEN SQ SCH (22:36)
[2021-10-18 00:56] VITALS: BP 100/56
[2021-10-18] MEDS: ALBUTEROL FS 2.5 MG/3 ML VIAL.NEB NEB SCH ×4 (01:52→19:30)
[2021-10-18] MEDS: IPRATROPIUM NEB FS 0.5 MG/2.5 ML AMPUL.NEB NEB SCH ×4 (01:52→19:30)
[2021-10-18] MEDS: OMEPRAZOLE 20 MG CAPSULE.DR GT SCH (05:20)
[2021-10-18] MEDS: POLYVINYL ALCOHOL 15 ML BOTTLE EACHEYE SCH ×3 (05:20→17:22)
[2021-10-18] MEDS: BLOOD SUGAR DIAGNOSTIC 1 EACH STRIP IN SCH ×3 (06:16→18:16)
[2021-10-18] MEDS: GLUCERNA 1.2 1,000 ML BOTTLE GT PRN (06:54)
[2021-10-18 07:44] VITALS: BP 111/76
[2021-10-18 08:00] VITALS: BP 106/61
[2021-10-18] MEDS: LEVETIRACETAM SOL (5 ML) 100 MG/ML UDC GT SCH ×2 (09:00→21:09)
[2021-10-18] MEDS: VITAMINS A AND D 56.7 GM TUBE TP SCH ×4 (09:00→21:09)
[2021-10-18] MEDS: NYSTATIN TOP POWDER 15 GM BOTTLE TP SCH ×2 (09:00→21:09)
[2021-10-18] MEDS: MULTIVIT W/MINERALS 1 TAB TABLET GT SCH (09:00)
[2021-10-18] MEDS: ZINC SULFATE 220 MG CAPSULE GT SCH (09:00)
[2021-10-18] MEDS: SITAGLIPTIN PHOSPHATE 50 MG TABLET GT SCH (09:00)
[2021-10-18] MEDS: DOCUSATE SODIUM LIQ 100 MG/10 ML UDC GT SCH ×2 (09:00→17:22)
[2021-10-18] MEDS: ACIDOPHILUS/BULGARICUS 1 EACH TAB.CHEW GT SCH ×2 (09:00→17:22)
[2021-10-18] MEDS: DILTIAZEM HCL 30 MG TABLET GT SCH ×2 (09:00→21:00)
[2021-10-18] MEDS: ASCORBIC ACID 500 MG TABLET GT SCH (09:00)
[2021-10-18] MEDS: FERROUS SULFATE - FOR SA ONLY 330 MG/7.5 ML UDC GT SCH (09:00)
[2021-10-18] MEDS: LISINOPRIL (5MG) 5 MG TABLET GT SCH (09:00)
[2021-10-18] MEDS: HYDROGEN PEROXIDE 480 ML BOTTLE TP SCH ×2 (09:21→21:12)
[2021-10-18] MEDS: INSULIN ASPART/LISPRO 100 UNIT/ML CARTRIDGE SQ PRN ×2 (11:58→18:17)
[2021-10-18 12:22] VITALS: BP 108/65
[2021-10-18 14:01] VITALS: BP 129/68
--- NOTE | 2021-10-18 17:14 | NUR ---
RT Patient remains stable on 28% cool aerosol , trach tube midline and secured.No respiratory distress noted throughout the shift.
[2021-10-18 20:12] VITALS: BP 109/72
--- NOTE | 2021-10-18 20:50 | NUR ---
RT Patient was received on 28% cool aerosol , trach tube midline and secured. No respiratory distress noted at this time , will continue to monitor throughout the shift. Addendum: 10/19/21 at 0110 by SHYANN BARRETT RT Amended: Links added.
[2021-10-18] MEDS: ATORVASTATIN 10 MG TABLET GT SCH (21:09)
[2021-10-18] MEDS: POLYETHYLENE GLYCOL 3350 17 GM POWD.PACK GT SCH (21:09)
[2021-10-18] MEDS: ENOXAPARIN SODIUM 40 MG/0.4 ML DISP.SYRIN SQ SCH (21:10)
[2021-10-18] MEDS: INSULIN GLARGINE,BASAGLAR 100 UNIT/ML INSULN.PEN SQ SCH (22:34)
[2021-10-19] MEDS: POLYVINYL ALCOHOL 15 ML BOTTLE EACHEYE SCH ×4 (00:12→17:43)
[2021-10-19] MEDS: BLOOD SUGAR DIAGNOSTIC 1 EACH STRIP IN SCH ×4 (00:28→17:43)
[2021-10-19] MEDS: IPRATROPIUM NEB FS 0.5 MG/2.5 ML AMPUL.NEB NEB SCH ×4 (01:30→20:02)
[2021-10-19] MEDS: ALBUTEROL FS 2.5 MG/3 ML VIAL.NEB NEB SCH ×4 (01:30→20:02)
[2021-10-19 01:59] VITALS: BP 103/59
[2021-10-19] MEDS: OMEPRAZOLE 20 MG CAPSULE.DR GT SCH (05:30)
[2021-10-19 07:40] VITALS: BP 118/78
[2021-10-19] MEDS: DOCUSATE SODIUM LIQ 100 MG/10 ML UDC GT SCH ×2 (08:41→17:43)
[2021-10-19] MEDS: SITAGLIPTIN PHOSPHATE 50 MG TABLET GT SCH (08:41)
[2021-10-19] MEDS: LEVETIRACETAM SOL (5 ML) 100 MG/ML UDC GT SCH ×2 (08:41→21:27)
[2021-10-19] MEDS: ACIDOPHILUS/BULGARICUS 1 EACH TAB.CHEW GT SCH ×2 (08:41→17:43)
[2021-10-19] MEDS: DILTIAZEM HCL 30 MG TABLET GT SCH ×2 (08:41→21:27)
[2021-10-19] MEDS: FERROUS SULFATE - FOR SA ONLY 330 MG/7.5 ML UDC GT SCH (08:41)
[2021-10-19] MEDS: ZINC SULFATE 220 MG CAPSULE GT SCH (08:42)
[2021-10-19] MEDS: MULTIVIT W/MINERALS 1 TAB TABLET GT SCH (08:42)
[2021-10-19] MEDS: ASCORBIC ACID 500 MG TABLET GT SCH (08:42)
[2021-10-19] MEDS: LISINOPRIL (5MG) 5 MG TABLET GT SCH (08:42)
[2021-10-19] MEDS: NYSTATIN TOP POWDER 15 GM BOTTLE TP SCH ×2 (09:00→21:27)
[2021-10-19] MEDS: VITAMINS A AND D 56.7 GM TUBE TP SCH ×4 (09:00→21:27)
[2021-10-19] MEDS: HYDROGEN PEROXIDE 480 ML BOTTLE TP SCH ×2 (09:44→21:09)
[2021-10-19] MEDS: GLUCERNA 1.2 1,000 ML BOTTLE GT PRN (12:34)
[2021-10-19] MEDS: INSULIN ASPART/LISPRO 100 UNIT/ML CARTRIDGE SQ PRN ×2 (12:43→17:43)
--- NOTE | 2021-10-19 13:03 | NUR ---
Facility Update: ORACIO notified patient's daughter, Kelly via email that: Please note that a Sub-Acute employee tested positive for COVID-19 over the weekend and another on Monday. We continue to following [facility] of Public Healths infection control guidelines. [facility] will continue response testing and screened for symptoms. Staff will be tested twice a week and patients will be tested on a weekly basis. All visitation Guidelines remain the same". ORACIO also sent latest visitation guidelines.
--- NOTE | 2021-10-19 13:04 | NUR ---
Virtual rounds done by Dr. Capone, no new order given.
--- NOTE | 2021-10-19 14:26 | NUR ---
Room visitation twice a day ,I call face time to Mrs Marvin Mendoza so she can see her mother but we are unable to see her , Mrs Mendoza replay she is in classes and she want to call her back at 5 pm .I report to charge nurse
--- NOTE | 2021-10-19 16:05 | NUR ---
RT Patient remains stable on 28% cool aerosol , trach tube patent, midline and secured. No respiratory distress noted throughout the shift. Will keep monitor the pt.
--- NOTE | 2021-10-19 20:30 | NUR ---
RT Patient was received on 28% cool aerosol, trach tube midline and secured. Will continue continue to monitor throughout the shift. Addendum: 10/20/21 at 0522 by SHYANN BARRETT RT Amended: Links added.
[2021-10-19 20:44] VITALS: BP 106/71
[2021-10-19] MEDS: POLYETHYLENE GLYCOL 3350 17 GM POWD.PACK GT SCH (21:27)
[2021-10-19] MEDS: ATORVASTATIN 10 MG TABLET GT SCH (21:27)
[2021-10-19] MEDS: INSULIN GLARGINE,BASAGLAR 100 UNIT/ML INSULN.PEN SQ SCH (21:28)
[2021-10-19] MEDS: ENOXAPARIN SODIUM 40 MG/0.4 ML DISP.SYRIN SQ SCH (21:28)
[2021-10-20] MEDS: POLYVINYL ALCOHOL 15 ML BOTTLE EACHEYE SCH ×4 (00:09→17:46)
[2021-10-20] MEDS: BLOOD SUGAR DIAGNOSTIC 1 EACH STRIP IN SCH ×4 (00:09→17:46)
[2021-10-20] MEDS: INSULIN ASPART/LISPRO 100 UNIT/ML CARTRIDGE SQ PRN ×3 (00:12→17:47)
[2021-10-20] MEDS: IPRATROPIUM NEB FS 0.5 MG/2.5 ML AMPUL.NEB NEB SCH ×4 (01:57→19:55)
[2021-10-20] MEDS: ALBUTEROL FS 2.5 MG/3 ML VIAL.NEB NEB SCH ×4 (01:57→19:56)
[2021-10-20] MEDS: OMEPRAZOLE 20 MG CAPSULE.DR GT SCH (05:52)
[2021-10-20 07:54] VITALS: BP 115/50
[2021-10-20] MEDS: HYDROGEN PEROXIDE 480 ML BOTTLE TP SCH ×2 (08:14→19:56)
[2021-10-20] MEDS: SITAGLIPTIN PHOSPHATE 50 MG TABLET GT SCH (09:21)
[2021-10-20] MEDS: DILTIAZEM HCL 30 MG TABLET GT SCH ×2 (09:21→21:00)
[2021-10-20] MEDS: DOCUSATE SODIUM LIQ 100 MG/10 ML UDC GT SCH ×2 (09:21→16:32)
[2021-10-20] MEDS: FERROUS SULFATE - FOR SA ONLY 330 MG/7.5 ML UDC GT SCH (09:21)
[2021-10-20] MEDS: LEVETIRACETAM SOL (5 ML) 100 MG/ML UDC GT SCH ×2 (09:21→21:32)
[2021-10-20] MEDS: LISINOPRIL (5MG) 5 MG TABLET GT SCH (09:22)
[2021-10-20] MEDS: NYSTATIN TOP POWDER 15 GM BOTTLE TP SCH ×2 (09:22→21:32)
[2021-10-20] MEDS: VITAMINS A AND D 56.7 GM TUBE TP SCH ×4 (09:22→21:33)
[2021-10-20] MEDS: MULTIVIT W/MINERALS 1 TAB TABLET GT SCH (09:22)
[2021-10-20] MEDS: ZINC SULFATE 220 MG CAPSULE GT SCH (09:22)
[2021-10-20] MEDS: ACIDOPHILUS/BULGARICUS 1 EACH TAB.CHEW GT SCH ×2 (09:22→16:32)
[2021-10-20] MEDS: ASCORBIC ACID 500 MG TABLET GT SCH (09:22)
[2021-10-20 10:23] LABS: CALCIUM, SERUM 9.7 mg/dL (8.5-10.1); MAGNESIUM 2.5 mg/dL (1.8-2.4); PHOSPHORUS 3.9 mg/dL (2.5-4.9); POTASSIUM 4.8 mmol/L (3.5-5.1)
[2021-10-20 10:30] LABS: HEMATOCRIT 45 % (33-45); MEAN CORPUSCULAR HGB CONC 31 g/dl (31.0-36.0); MEAN CORPUSCULAR VOLUME 98 fL (82-100); PLATELET COUNT (AUTO) 287 K/uL (150-450); RED BLOOD CELL COUNT(AUTO) 4.56 MIL/uL (4.0-5.2)
[2021-10-20 12:17] VITALS: BP 128/57
--- NOTE | 2021-10-20 12:33 | NUR ---
Monthly progress note.Resident is passive unable to make her needs known.Non responsive to verbal approach and tactile stimuli. Has episodes of eye opening but does not track.Received daily visits for sensory stimulation,Tv, music, hand massage, audio tapes and reality orientation. These activities will be provided as needed.
--- NOTE | 2021-10-20 13:53 | NUR ---
Family Invite to IDT: SW emailed the patient's daughter, Kelly to invite them to participate in 10/22/21 12:30p IDT meeting via phone conference. ORACIO will follow up accordingly.
[2021-10-20] MEDS: GLUCERNA 1.2 1,000 ML BOTTLE GT PRN (14:30)
--- NOTE | 2021-10-20 15:08 | NUR ---
RT RECEIVED PATIENT ON COOL AEROSOL. TRACH TUBE IN PLACE, PATENT, AND SECURED WITH TRACH TIE. SX MODERATE THICK PALE YELLOW SECRETIONS. AMBU BAG AND BACK UP TRACH BY THE BEDSIDE. STABLE WITH NO DISTRESS AT THIS TIME. PERFORMED MONTHLY TRACH TUBE CHANGE WITH ORDERED SIZE OF PORTEX 9 CUFFED. MINIMAL BLEEDING. PATIENT TOLERATE WELL. CHARGE NURSE AWARE.
--- NOTE | 2021-10-20 17:44 | NUR ---
Called Dr. Pineda's office to inform him of pt's lab results this morning, awaiting for callback.
[2021-10-20 20:34] VITALS: BP 98/61
[2021-10-20] MEDS: ATORVASTATIN 10 MG TABLET GT SCH (21:33)
[2021-10-20] MEDS: INSULIN GLARGINE,BASAGLAR 100 UNIT/ML INSULN.PEN SQ SCH (21:33)
[2021-10-20] MEDS: POLYETHYLENE GLYCOL 3350 17 GM POWD.PACK GT SCH (21:33)
[2021-10-20] MEDS: ENOXAPARIN SODIUM 40 MG/0.4 ML DISP.SYRIN SQ SCH (21:34)
[2021-10-21] MEDS: BLOOD SUGAR DIAGNOSTIC 1 EACH STRIP IN SCH ×5 (00:08→23:57)
[2021-10-21] MEDS: POLYVINYL ALCOHOL 15 ML BOTTLE EACHEYE SCH ×5 (00:08→23:57)
[2021-10-21] MEDS: INSULIN ASPART/LISPRO 100 UNIT/ML CARTRIDGE SQ PRN ×5 (00:08→23:57)
[2021-10-21] MEDS: ALBUTEROL FS 2.5 MG/3 ML VIAL.NEB NEB SCH ×4 (01:42→20:01)
[2021-10-21] MEDS: IPRATROPIUM NEB FS 0.5 MG/2.5 ML AMPUL.NEB NEB SCH ×4 (01:42→20:01)
--- NOTE | 2021-10-21 04:02 | NUR ---
RT PT RECVD ON 28% COOL AEROSOL WITH TRACH PATENT, MIDLINE AND SECURED. SUCTION PRN, NEB TX GIVEN AND [place] WELL. TRACH CARE DONE. SPO2 >92% MAINTAINED. SPARE TRACH AND AMBU AT BEDSIDE.
[2021-10-21] MEDS: OMEPRAZOLE 20 MG CAPSULE.DR GT SCH (05:38)
[2021-10-21 07:54] VITALS: BP 103/67
[2021-10-21] MEDS: FERROUS SULFATE - FOR SA ONLY 330 MG/7.5 ML UDC GT SCH (08:02)
[2021-10-21] MEDS: LEVETIRACETAM SOL (5 ML) 100 MG/ML UDC GT SCH ×2 (08:02→21:54)
[2021-10-21] MEDS: SITAGLIPTIN PHOSPHATE 50 MG TABLET GT SCH (08:02)
[2021-10-21] MEDS: ACIDOPHILUS/BULGARICUS 1 EACH TAB.CHEW GT SCH ×2 (08:02→16:01)
[2021-10-21] MEDS: DOCUSATE SODIUM LIQ 100 MG/10 ML UDC GT SCH ×2 (08:02→16:01)
[2021-10-21] MEDS: DILTIAZEM HCL 30 MG TABLET GT SCH ×2 (08:02→21:54)
[2021-10-21] MEDS: NYSTATIN TOP POWDER 15 GM BOTTLE TP SCH ×2 (08:03→21:54)
[2021-10-21] MEDS: VITAMINS A AND D 56.7 GM TUBE TP SCH ×4 (08:03→21:55)
[2021-10-21] MEDS: LISINOPRIL (5MG) 5 MG TABLET GT SCH (08:03)
[2021-10-21] MEDS: ZINC SULFATE 220 MG CAPSULE GT SCH (08:03)
[2021-10-21] MEDS: MULTIVIT W/MINERALS 1 TAB TABLET GT SCH (08:03)
[2021-10-21] MEDS: ASCORBIC ACID 500 MG TABLET GT SCH (08:03)
--- NOTE | 2021-10-21 08:14 | NUR ---
RT RECEIVED PT ON CA 28%. NO RESP DISTRESS. TOLERATES BREATHING TX. SMALL AMT OF SECRETION DURING SUCTION. TRACH IS SECURE AND PATENT. Addendum: 10/21/21 at 0815 by Ankur Kang RT Amended: Links added.
[2021-10-21] MEDS: HYDROGEN PEROXIDE 480 ML BOTTLE TP SCH ×2 (09:17→20:01)
[2021-10-21] MEDS: GLUCERNA 1.2 1,000 ML BOTTLE GT PRN (11:26)
[2021-10-21 13:50] VITALS: BP 98/68
[2021-10-21 19:51] VITALS: BP 128/61
[2021-10-21] MEDS: POLYETHYLENE GLYCOL 3350 17 GM POWD.PACK GT SCH (21:55)
[2021-10-21] MEDS: INSULIN GLARGINE,BASAGLAR 100 UNIT/ML INSULN.PEN SQ SCH (21:55)
[2021-10-21] MEDS: ATORVASTATIN 10 MG TABLET GT SCH (21:55)
[2021-10-21] MEDS: ENOXAPARIN SODIUM 40 MG/0.4 ML DISP.SYRIN SQ SCH (21:56)
[2021-10-22 00:29] VITALS: BP 125/60
[2021-10-22] MEDS: IPRATROPIUM NEB FS 0.5 MG/2.5 ML AMPUL.NEB NEB SCH ×4 (01:58→19:43)
[2021-10-22] MEDS: ALBUTEROL FS 2.5 MG/3 ML VIAL.NEB NEB SCH ×4 (01:58→19:43)
--- NOTE | 2021-10-22 04:56 | NUR ---
RT PT RECVD ON 28% CA VIA T-BAR, PORTEX 9 TRACH IS PATENT AND SECURED. TX GIVEN AND [place] WELL. SUCTION PRN. SPO2 >92%, NO SOB OR RESPIRATORY DISTRESS NOTED THROUGHOUT SHIFT. TRACH CARE DONE. SPARE TRACH AND AMBU AT BEDSIDE.
[2021-10-22] MEDS: BLOOD SUGAR DIAGNOSTIC 1 EACH STRIP IN SCH ×3 (05:59→18:14)
[2021-10-22] MEDS: INSULIN ASPART/LISPRO 100 UNIT/ML CARTRIDGE SQ PRN ×3 (05:59→18:14)
[2021-10-22] MEDS: POLYVINYL ALCOHOL 15 ML BOTTLE EACHEYE SCH ×3 (05:59→17:35)
[2021-10-22] MEDS: OMEPRAZOLE 20 MG CAPSULE.DR GT SCH (05:59)
[2021-10-22 07:36] VITALS: BP 120/76
[2021-10-22] MEDS: DILTIAZEM HCL 30 MG TABLET GT SCH ×2 (09:06→21:37)
[2021-10-22] MEDS: DOCUSATE SODIUM LIQ 100 MG/10 ML UDC GT SCH ×2 (09:06→17:34)
[2021-10-22] MEDS: ACIDOPHILUS/BULGARICUS 1 EACH TAB.CHEW GT SCH ×2 (09:07→17:35)
[2021-10-22] MEDS: SITAGLIPTIN PHOSPHATE 50 MG TABLET GT SCH (09:07)
[2021-10-22] MEDS: LISINOPRIL (5MG) 5 MG TABLET GT SCH (09:07)
[2021-10-22] MEDS: FERROUS SULFATE - FOR SA ONLY 330 MG/7.5 ML UDC GT SCH (09:07)
[2021-10-22] MEDS: LEVETIRACETAM SOL (5 ML) 100 MG/ML UDC GT SCH ×2 (09:07→21:37)
[2021-10-22] MEDS: MULTIVIT W/MINERALS 1 TAB TABLET GT SCH (09:16)
[2021-10-22] MEDS: ZINC SULFATE 220 MG CAPSULE GT SCH (09:16)
[2021-10-22] MEDS: ASCORBIC ACID 500 MG TABLET GT SCH (09:16)
[2021-10-22] MEDS: VITAMINS A AND D 56.7 GM TUBE TP SCH ×4 (09:17→21:37)
[2021-10-22] MEDS: NYSTATIN TOP POWDER 15 GM BOTTLE TP SCH ×2 (09:17→21:37)
[2021-10-22] MEDS: HYDROGEN PEROXIDE 480 ML BOTTLE TP SCH ×2 (09:27→19:43)
[2021-10-22 11:57] VITALS: BP 113/70
--- NOTE | 2021-10-22 14:43 | NUR ---
INTERDISCIPLINARY PLAN OF CARE CONFERENCE took place today. The patients responsible democrat, Kelly [phone] Capone and Interdisciplinary team discussed the plan of care in detail. Current orders as well as treatments and medications were reviewed. Per CRN, the pt. is stable.
[2021-10-22] MEDS: GLUCERNA 1.2 1,000 ML BOTTLE GT PRN (19:30)
[2021-10-22 19:39] VITALS: BP 126/77
[2021-10-22] MEDS: POLYETHYLENE GLYCOL 3350 17 GM POWD.PACK GT SCH (21:37)
[2021-10-22] MEDS: ATORVASTATIN 10 MG TABLET GT SCH (21:37)
[2021-10-22] MEDS: INSULIN GLARGINE,BASAGLAR 100 UNIT/ML INSULN.PEN SQ SCH (21:38)
[2021-10-22] MEDS: ENOXAPARIN SODIUM 40 MG/0.4 ML DISP.SYRIN SQ SCH (21:39)
[2021-10-23] MEDS: BLOOD SUGAR DIAGNOSTIC 1 EACH STRIP IN SCH ×4 (00:40→18:05)
[2021-10-23 00:50] VITALS: BP 120/70
[2021-10-23] MEDS: INSULIN ASPART/LISPRO 100 UNIT/ML CARTRIDGE SQ PRN ×4 (01:03→18:05)
[2021-10-23] MEDS: IPRATROPIUM NEB FS 0.5 MG/2.5 ML AMPUL.NEB NEB SCH ×4 (02:19→20:01)
[2021-10-23] MEDS: ALBUTEROL FS 2.5 MG/3 ML VIAL.NEB NEB SCH ×4 (02:19→20:01)
--- NOTE | 2021-10-23 02:55 | NUR ---
RT PT RECVD ON 28% COOL AEROSOL WITH AIRWAY PATENT AND SECURED. SUCTION PRN, NEB TX GIVEN AND [place] WELL. NO SOB OR RESP DISTRESS NOTED AT THIS TIME. SPARE TRACH AND AMBU AT BEDSIDE. SPO2 >92% MAINTAINED
[2021-10-23] MEDS: OMEPRAZOLE 20 MG CAPSULE.DR GT SCH (05:34)
[2021-10-23] MEDS: POLYVINYL ALCOHOL 15 ML BOTTLE EACHEYE SCH ×4 (05:34→17:22)
[2021-10-23 07:40] VITALS: BP 96/62
[2021-10-23] MEDS: DILTIAZEM HCL 30 MG TABLET GT SCH ×2 (08:37→21:00)
[2021-10-23] MEDS: DOCUSATE SODIUM LIQ 100 MG/10 ML UDC GT SCH ×2 (08:38→17:22)
[2021-10-23] MEDS: FERROUS SULFATE - FOR SA ONLY 330 MG/7.5 ML UDC GT SCH (08:38)
[2021-10-23] MEDS: ZINC SULFATE 220 MG CAPSULE GT SCH (08:38)
[2021-10-23] MEDS: LISINOPRIL (5MG) 5 MG TABLET GT SCH (08:38)
[2021-10-23] MEDS: ACIDOPHILUS/BULGARICUS 1 EACH TAB.CHEW GT SCH ×2 (08:38→17:22)
[2021-10-23] MEDS: MULTIVIT W/MINERALS 1 TAB TABLET GT SCH (08:38)
[2021-10-23] MEDS: ASCORBIC ACID 500 MG TABLET GT SCH (08:38)
[2021-10-23] MEDS: NYSTATIN TOP POWDER 15 GM BOTTLE TP SCH ×2 (08:38→21:30)
[2021-10-23] MEDS: SITAGLIPTIN PHOSPHATE 50 MG TABLET GT SCH (08:38)
[2021-10-23] MEDS: VITAMINS A AND D 56.7 GM TUBE TP SCH ×4 (08:38→21:30)
[2021-10-23] MEDS: LEVETIRACETAM SOL (5 ML) 100 MG/ML UDC GT SCH ×2 (08:38→21:30)
[2021-10-23] MEDS: HYDROGEN PEROXIDE 480 ML BOTTLE TP SCH ×2 (09:19→21:06)
[2021-10-23 11:22] VITALS: BP 98/63
[2021-10-23] MEDS: GLUCERNA 1.2 1,000 ML BOTTLE GT PRN (17:23)
[2021-10-23 19:37] VITALS: BP 94/54
[2021-10-23] MEDS: ATORVASTATIN 10 MG TABLET GT SCH (21:30)
[2021-10-23] MEDS: POLYETHYLENE GLYCOL 3350 17 GM POWD.PACK GT SCH (21:30)
[2021-10-23] MEDS: ENOXAPARIN SODIUM 40 MG/0.4 ML DISP.SYRIN SQ SCH (21:31)
[2021-10-23] MEDS: INSULIN GLARGINE,BASAGLAR 100 UNIT/ML INSULN.PEN SQ SCH (22:05)
--- NOTE | 2021-10-23 22:08 | NUR ---
RT Patient was received on 28% cool aerosol , trach tube midline and secured. No respiratory distress noted at this time , will continue to monitor throughout the shift. Addendum: 10/23/21 at 2208 by SHYANN BARRETT RT Amended: Links added.
[2021-10-24] MEDS: POLYVINYL ALCOHOL 15 ML BOTTLE EACHEYE SCH ×5 (00:16→23:23)
[2021-10-24] MEDS: INSULIN ASPART/LISPRO 100 UNIT/ML CARTRIDGE SQ PRN ×3 (00:16→23:24)
[2021-10-24] MEDS: BLOOD SUGAR DIAGNOSTIC 1 EACH STRIP IN SCH ×5 (00:16→23:23)
[2021-10-24] MEDS: ALBUTEROL FS 2.5 MG/3 ML VIAL.NEB NEB SCH ×4 (01:59→20:02)
[2021-10-24] MEDS: IPRATROPIUM NEB FS 0.5 MG/2.5 ML AMPUL.NEB NEB SCH ×4 (01:59→20:02)
[2021-10-24] MEDS: OMEPRAZOLE 20 MG CAPSULE.DR GT SCH (05:52)
[2021-10-24 07:28] VITALS: BP 121/69
[2021-10-24] MEDS: LISINOPRIL (5MG) 5 MG TABLET GT SCH (08:46)
[2021-10-24] MEDS: SITAGLIPTIN PHOSPHATE 50 MG TABLET GT SCH (08:46)
[2021-10-24] MEDS: FERROUS SULFATE - FOR SA ONLY 330 MG/7.5 ML UDC GT SCH (08:46)
[2021-10-24] MEDS: DILTIAZEM HCL 30 MG TABLET GT SCH ×2 (08:46→21:02)
[2021-10-24] MEDS: LEVETIRACETAM SOL (5 ML) 100 MG/ML UDC GT SCH ×2 (08:46→21:02)
[2021-10-24] MEDS: DOCUSATE SODIUM LIQ 100 MG/10 ML UDC GT SCH ×2 (08:46→16:50)
[2021-10-24] MEDS: ACIDOPHILUS/BULGARICUS 1 EACH TAB.CHEW GT SCH ×2 (08:46→16:51)
[2021-10-24] MEDS: ZINC SULFATE 220 MG CAPSULE GT SCH (08:47)
[2021-10-24] MEDS: ASCORBIC ACID 500 MG TABLET GT SCH (08:47)
[2021-10-24] MEDS: MULTIVIT W/MINERALS 1 TAB TABLET GT SCH (08:47)
[2021-10-24] MEDS: NYSTATIN TOP POWDER 15 GM BOTTLE TP SCH ×2 (08:47→21:02)
[2021-10-24] MEDS: VITAMINS A AND D 56.7 GM TUBE TP SCH ×4 (08:48→21:02)
[2021-10-24] MEDS: HYDROGEN PEROXIDE 480 ML BOTTLE TP SCH ×2 (09:29→21:15)
--- NOTE | 2021-10-24 11:33 | NUR ---
Called Kelly her daughter offered face time, she will call back as soon as she's available.
[2021-10-24 11:51] VITALS: BP 105/63
[2021-10-24 19:49] VITALS: BP 114/59
[2021-10-24] MEDS: POLYETHYLENE GLYCOL 3350 17 GM POWD.PACK GT SCH (21:02)
[2021-10-24] MEDS: ATORVASTATIN 10 MG TABLET GT SCH (21:02)
[2021-10-24] MEDS: ENOXAPARIN SODIUM 40 MG/0.4 ML DISP.SYRIN SQ SCH (21:03)
--- NOTE | 2021-10-24 21:21 | NUR ---
RT Patient was received stable on 28% cool aerosol, trach tube midline and secured. No respiratory distress noted at this time, will continue to monitor throughout the shift. Addendum: 10/24/21 at 2122 by SHYANN BARRETT RT Amended: Links added.
[2021-10-24] MEDS: INSULIN GLARGINE,BASAGLAR 100 UNIT/ML INSULN.PEN SQ SCH (21:23)
[2021-10-25 01:21] VITALS: BP 106/66
[2021-10-25] MEDS: ALBUTEROL FS 2.5 MG/3 ML VIAL.NEB NEB SCH ×4 (01:36→20:08)
[2021-10-25] MEDS: IPRATROPIUM NEB FS 0.5 MG/2.5 ML AMPUL.NEB NEB SCH ×4 (01:36→20:08)
[2021-10-25] MEDS: POLYVINYL ALCOHOL 15 ML BOTTLE EACHEYE SCH ×3 (06:02→17:22)
[2021-10-25] MEDS: OMEPRAZOLE 20 MG CAPSULE.DR GT SCH (06:03)
[2021-10-25] MEDS: INSULIN ASPART/LISPRO 100 UNIT/ML CARTRIDGE SQ PRN ×3 (06:03→17:48)
[2021-10-25] MEDS: BLOOD SUGAR DIAGNOSTIC 1 EACH STRIP IN SCH ×3 (06:03→17:47)
[2021-10-25] MEDS: GLUCERNA 1.2 1,000 ML BOTTLE GT PRN (06:04)
[2021-10-25 07:32] VITALS: BP 117/59
[2021-10-25 07:34] VITALS: BP 117/59
[2021-10-25] MEDS: LEVETIRACETAM SOL (5 ML) 100 MG/ML UDC GT SCH ×2 (08:16→21:58)
[2021-10-25] MEDS: DOCUSATE SODIUM LIQ 100 MG/10 ML UDC GT SCH ×2 (08:16→17:22)
[2021-10-25] MEDS: DILTIAZEM HCL 30 MG TABLET GT SCH ×2 (08:16→21:00)
[2021-10-25] MEDS: SITAGLIPTIN PHOSPHATE 50 MG TABLET GT SCH (08:16)
[2021-10-25] MEDS: FERROUS SULFATE - FOR SA ONLY 330 MG/7.5 ML UDC GT SCH (08:16)
[2021-10-25] MEDS: ACIDOPHILUS/BULGARICUS 1 EACH TAB.CHEW GT SCH ×2 (08:17→17:22)
[2021-10-25] MEDS: LISINOPRIL (5MG) 5 MG TABLET GT SCH (08:17)
[2021-10-25] MEDS: ASCORBIC ACID 500 MG TABLET GT SCH (08:17)
[2021-10-25] MEDS: MULTIVIT W/MINERALS 1 TAB TABLET GT SCH (08:17)
[2021-10-25] MEDS: ZINC SULFATE 220 MG CAPSULE GT SCH (08:18)
[2021-10-25] MEDS: NYSTATIN TOP POWDER 15 GM BOTTLE TP SCH ×2 (08:18→21:59)
[2021-10-25] MEDS: VITAMINS A AND D 56.7 GM TUBE TP SCH ×4 (08:18→21:59)
--- NOTE | 2021-10-25 08:54 | NUR ---
RT Pt. received on 28% cool aerosol , trach tube patent, midline and secured. Ambu bag and back up trach is at the bed side. No respiratory distress and SOB. Will keep monitor the pt
[2021-10-25] MEDS: HYDROGEN PEROXIDE 480 ML BOTTLE TP SCH ×2 (09:21→21:06)
--- NOTE | 2021-10-25 11:18 | NUR ---
Placed on contact and droplet isolation due to possible Covid-19 exposure. Pt asymptomatic at this time. Education provided to staff regarding isolation precautions, proper hand hygiene, and PPEs.
[2021-10-25 13:10] VITALS: BP 109/59
[2021-10-25 20:22] VITALS: BP 103/61
--- NOTE | 2021-10-25 21:51 | NUR ---
RT Patient was received on 28% cool aerosol , trach tube midline and secured. No respiratory distress at this time , will continue to monitor throughout the shift. Addendum: 10/25/21 at 2152 by SHYANN BARRETT RT Amended: Links added.
[2021-10-25] MEDS: POLYETHYLENE GLYCOL 3350 17 GM POWD.PACK GT SCH (21:59)
[2021-10-25] MEDS: ATORVASTATIN 10 MG TABLET GT SCH (21:59)
[2021-10-25] MEDS: ENOXAPARIN SODIUM 40 MG/0.4 ML DISP.SYRIN SQ SCH (22:02)
[2021-10-25] MEDS: INSULIN GLARGINE,BASAGLAR 100 UNIT/ML INSULN.PEN SQ SCH (22:29)
[2021-10-26] MEDS: POLYVINYL ALCOHOL 15 ML BOTTLE EACHEYE SCH ×5 (00:31→23:05)
[2021-10-26] MEDS: BLOOD SUGAR DIAGNOSTIC 1 EACH STRIP IN SCH ×5 (00:31→23:05)
[2021-10-26] MEDS: GLUCERNA 1.2 1,000 ML BOTTLE GT PRN (00:57)
[2021-10-26] MEDS: IPRATROPIUM NEB FS 0.5 MG/2.5 ML AMPUL.NEB NEB SCH ×4 (01:46→20:09)
[2021-10-26] MEDS: ALBUTEROL FS 2.5 MG/3 ML VIAL.NEB NEB SCH ×4 (01:46→20:09)
[2021-10-26] MEDS: OMEPRAZOLE 20 MG CAPSULE.DR GT SCH (05:22)
[2021-10-26] MEDS: LEVETIRACETAM SOL (5 ML) 100 MG/ML UDC GT SCH ×2 (09:09→20:07)
[2021-10-26] MEDS: DOCUSATE SODIUM LIQ 100 MG/10 ML UDC GT SCH ×2 (09:09→16:49)
[2021-10-26] MEDS: DILTIAZEM HCL 30 MG TABLET GT SCH ×2 (09:09→20:06)
[2021-10-26] MEDS: FERROUS SULFATE - FOR SA ONLY 330 MG/7.5 ML UDC GT SCH (09:09)
[2021-10-26] MEDS: SITAGLIPTIN PHOSPHATE 50 MG TABLET GT SCH (09:09)
[2021-10-26] MEDS: VITAMINS A AND D 56.7 GM TUBE TP SCH ×4 (09:10→20:07)
[2021-10-26] MEDS: ZINC SULFATE 220 MG CAPSULE GT SCH (09:10)
[2021-10-26] MEDS: ACIDOPHILUS/BULGARICUS 1 EACH TAB.CHEW GT SCH ×2 (09:10→16:49)
[2021-10-26] MEDS: MULTIVIT W/MINERALS 1 TAB TABLET GT SCH (09:10)
[2021-10-26] MEDS: ASCORBIC ACID 500 MG TABLET GT SCH (09:10)
[2021-10-26] MEDS: NYSTATIN TOP POWDER 15 GM BOTTLE TP SCH ×2 (09:10→20:07)
[2021-10-26] MEDS: LISINOPRIL (5MG) 5 MG TABLET GT SCH (09:10)
[2021-10-26] MEDS: HYDROGEN PEROXIDE 480 ML BOTTLE TP SCH ×2 (09:14→21:11)
[2021-10-26] MEDS: INSULIN ASPART/LISPRO 100 UNIT/ML CARTRIDGE SQ PRN ×3 (12:09→23:05)
[2021-10-26 19:19] VITALS: BP 137/66
[2021-10-26] MEDS: POLYETHYLENE GLYCOL 3350 17 GM POWD.PACK GT SCH (21:25)
[2021-10-26] MEDS: ATORVASTATIN 10 MG TABLET GT SCH (21:25)
[2021-10-26] MEDS: INSULIN GLARGINE,BASAGLAR 100 UNIT/ML INSULN.PEN SQ SCH (21:26)
[2021-10-26] MEDS: ENOXAPARIN SODIUM 40 MG/0.4 ML DISP.SYRIN SQ SCH (21:27)
[2021-10-27] MEDS: IPRATROPIUM NEB FS 0.5 MG/2.5 ML AMPUL.NEB NEB SCH ×4 (01:40→20:18)
[2021-10-27] MEDS: ALBUTEROL FS 2.5 MG/3 ML VIAL.NEB NEB SCH ×4 (01:40→20:18)
[2021-10-27] MEDS: BLOOD SUGAR DIAGNOSTIC 1 EACH STRIP IN SCH ×3 (05:10→17:29)
[2021-10-27] MEDS: POLYVINYL ALCOHOL 15 ML BOTTLE EACHEYE SCH ×3 (05:10→17:22)
[2021-10-27] MEDS: INSULIN ASPART/LISPRO 100 UNIT/ML CARTRIDGE SQ PRN ×3 (05:10→17:29)
[2021-10-27] MEDS: OMEPRAZOLE 20 MG CAPSULE.DR GT SCH (05:10)
[2021-10-27] MEDS: GLUCERNA 1.2 1,000 ML BOTTLE GT PRN (05:34)
--- NOTE | 2021-10-27 06:09 | NUR ---
RT Patient was stable on 28% cool aerosol throughout the shift, no respiratory distress noted. Trach tube midline and secured, will continue to monitor. Addendum: 10/27/21 at 0609 by SHYANN BARRETT RT Amended: Links added.
[2021-10-27] MEDS: SITAGLIPTIN PHOSPHATE 50 MG TABLET GT SCH (08:01)
[2021-10-27] MEDS: DOCUSATE SODIUM LIQ 100 MG/10 ML UDC GT SCH ×2 (08:01→17:22)
[2021-10-27] MEDS: NYSTATIN TOP POWDER 15 GM BOTTLE TP SCH ×2 (08:01→21:30)
[2021-10-27] MEDS: MULTIVIT W/MINERALS 1 TAB TABLET GT SCH (08:01)
[2021-10-27] MEDS: ZINC SULFATE 220 MG CAPSULE GT SCH (08:01)
[2021-10-27] MEDS: FERROUS SULFATE - FOR SA ONLY 330 MG/7.5 ML UDC GT SCH (08:01)
[2021-10-27] MEDS: ACIDOPHILUS/BULGARICUS 1 EACH TAB.CHEW GT SCH ×2 (08:01→17:22)
[2021-10-27] MEDS: DILTIAZEM HCL 30 MG TABLET GT SCH ×2 (08:01→21:00)
[2021-10-27] MEDS: LISINOPRIL (5MG) 5 MG TABLET GT SCH (08:01)
[2021-10-27] MEDS: LEVETIRACETAM SOL (5 ML) 100 MG/ML UDC GT SCH ×2 (08:01→21:30)
[2021-10-27] MEDS: VITAMINS A AND D 56.7 GM TUBE TP SCH ×4 (08:01→21:30)
[2021-10-27] MEDS: ASCORBIC ACID 500 MG TABLET GT SCH (08:01)
[2021-10-27] MEDS: HYDROGEN PEROXIDE 480 ML BOTTLE TP SCH ×2 (08:17→21:00)
[2021-10-27 08:36] VITALS: BP 107/60
[2021-10-27 13:10] VITALS: BP 137/76
--- NOTE | 2021-10-27 13:50 | NUR ---
today I call Miss Perez for face time at 12:30 p:m but no body answering the phone .
--- NOTE | 2021-10-27 16:46 | NUR ---
RT Patient received on cool aerosol per md orders, tolerating well. Trach tube in place, patent, and secured with trach tie. Mod thick pale yellow secretions via trach. Ambu bag and back up trach by the bedside. No distress at this time.
[2021-10-27 19:17] VITALS: BP 101/59
--- NOTE | 2021-10-27 20:19 | NUR ---
RT RECEIVED PT ON CA 28% 5LPM. NO RESP DISTRESS. THIN SECRETION UPON SUCTION. TRACH IS SECURED AND PATENT. ABELARDO TRACH AND AMBU BEDSIDE. Addendum: 10/27/21 at 2020 by Ankur Kang RT Amended: Links added.
[2021-10-27] MEDS: POLYETHYLENE GLYCOL 3350 17 GM POWD.PACK GT SCH (21:30)
[2021-10-27] MEDS: ATORVASTATIN 10 MG TABLET GT SCH (21:30)
[2021-10-27] MEDS: INSULIN GLARGINE,BASAGLAR 100 UNIT/ML INSULN.PEN SQ SCH (21:31)
[2021-10-27] MEDS: ENOXAPARIN SODIUM 40 MG/0.4 ML DISP.SYRIN SQ SCH (21:32)
[2021-10-28 00:08] VITALS: BP 100/78
[2021-10-28] MEDS: INSULIN ASPART/LISPRO 100 UNIT/ML CARTRIDGE SQ PRN ×5 (00:24→23:50)
[2021-10-28] MEDS: BLOOD SUGAR DIAGNOSTIC 1 EACH STRIP IN SCH ×5 (00:24→23:50)
[2021-10-28] MEDS: POLYVINYL ALCOHOL 15 ML BOTTLE EACHEYE SCH ×5 (00:24→23:50)
[2021-10-28] MEDS: IPRATROPIUM NEB FS 0.5 MG/2.5 ML AMPUL.NEB NEB SCH ×4 (01:50→20:25)
[2021-10-28] MEDS: ALBUTEROL FS 2.5 MG/3 ML VIAL.NEB NEB SCH ×4 (01:50→20:25)
[2021-10-28] MEDS: OMEPRAZOLE 20 MG CAPSULE.DR GT SCH (05:25)
[2021-10-28 07:14] VITALS: BP 128/76
[2021-10-28] MEDS: GLUCERNA 1.2 1,000 ML BOTTLE GT PRN (07:25)
[2021-10-28] MEDS: HYDROGEN PEROXIDE 480 ML BOTTLE TP SCH ×2 (08:18→20:25)
[2021-10-28] MEDS: DILTIAZEM HCL 30 MG TABLET GT SCH ×2 (09:21→20:55)
[2021-10-28] MEDS: ACIDOPHILUS/BULGARICUS 1 EACH TAB.CHEW GT SCH ×2 (09:22→17:03)
[2021-10-28] MEDS: SITAGLIPTIN PHOSPHATE 50 MG TABLET GT SCH (09:22)
[2021-10-28] MEDS: FERROUS SULFATE - FOR SA ONLY 330 MG/7.5 ML UDC GT SCH (09:22)
[2021-10-28] MEDS: ASCORBIC ACID 500 MG TABLET GT SCH (09:22)
[2021-10-28] MEDS: DOCUSATE SODIUM LIQ 100 MG/10 ML UDC GT SCH ×2 (09:22→17:03)
[2021-10-28] MEDS: LEVETIRACETAM SOL (5 ML) 100 MG/ML UDC GT SCH ×2 (09:22→20:55)
[2021-10-28] MEDS: VITAMINS A AND D 56.7 GM TUBE TP SCH ×4 (09:22→20:55)
[2021-10-28] MEDS: NYSTATIN TOP POWDER 15 GM BOTTLE TP SCH ×2 (09:22→20:55)
[2021-10-28] MEDS: LISINOPRIL (5MG) 5 MG TABLET GT SCH (09:22)
[2021-10-28] MEDS: ZINC SULFATE 220 MG CAPSULE GT SCH (09:22)
[2021-10-28] MEDS: MULTIVIT W/MINERALS 1 TAB TABLET GT SCH (09:22)
[2021-10-28 13:20] VITALS: BP 141/74
[2021-10-28] MEDS ORDERED: Z GUARD REMEDY 4 OZ OINT TP PRN (16:30)
[2021-10-28 19:20] VITALS: BP 109/65
[2021-10-28] MEDS: Z GUARD REMEDY 4 OZ OINT TP SCH (20:55)
[2021-10-28] MEDS: POLYETHYLENE GLYCOL 3350 17 GM POWD.PACK GT SCH (21:06)
[2021-10-28] MEDS: ATORVASTATIN 10 MG TABLET GT SCH (21:06)
[2021-10-28] MEDS: INSULIN GLARGINE,BASAGLAR 100 UNIT/ML INSULN.PEN SQ SCH (21:07)
[2021-10-28] MEDS: ENOXAPARIN SODIUM 40 MG/0.4 ML DISP.SYRIN SQ SCH (21:08)
[2021-10-29 00:28] VITALS: BP 108/70
[2021-10-29] MEDS: IPRATROPIUM NEB FS 0.5 MG/2.5 ML AMPUL.NEB NEB SCH ×4 (01:10→20:19)
[2021-10-29] MEDS: ALBUTEROL FS 2.5 MG/3 ML VIAL.NEB NEB SCH ×4 (01:10→20:19)
--- NOTE | 2021-10-29 04:01 | NUR ---
RT PT RECVD ON 28% COOL AEROSOL VIA T-BAR WITH AIRWAY PATENT AND SECURED. SUCTION PRN, NEB TX GIVEN AND [place] WELL. NO SOB OR RESP DISTRESS NOTED AT THIS TIME. SPARE TRACH AND AMBU AT BEDSIDE. SPO2 >92% MAINTAINED. TRACH CARE DONE.
[2021-10-29] MEDS: BLOOD SUGAR DIAGNOSTIC 1 EACH STRIP IN SCH ×4 (05:16→23:26)
[2021-10-29] MEDS: POLYVINYL ALCOHOL 15 ML BOTTLE EACHEYE SCH ×4 (05:16→23:26)
[2021-10-29] MEDS: OMEPRAZOLE 20 MG CAPSULE.DR GT SCH (05:16)
[2021-10-29] MEDS: GLUCERNA 1.2 1,000 ML BOTTLE GT PRN (05:17)
[2021-10-29] MEDS: INSULIN ASPART/LISPRO 100 UNIT/ML CARTRIDGE SQ PRN ×4 (05:17→23:26)
[2021-10-29 08:42] VITALS: BP 106/63
[2021-10-29] MEDS: DILTIAZEM HCL 30 MG TABLET GT SCH ×2 (09:00→20:38)
[2021-10-29] MEDS: SITAGLIPTIN PHOSPHATE 50 MG TABLET GT SCH (09:02)
[2021-10-29] MEDS: FERROUS SULFATE - FOR SA ONLY 330 MG/7.5 ML UDC GT SCH (09:02)
[2021-10-29] MEDS: LEVETIRACETAM SOL (5 ML) 100 MG/ML UDC GT SCH ×2 (09:02→20:38)
[2021-10-29] MEDS: ACIDOPHILUS/BULGARICUS 1 EACH TAB.CHEW GT SCH ×2 (09:02→16:36)
[2021-10-29] MEDS: DOCUSATE SODIUM LIQ 100 MG/10 ML UDC GT SCH ×2 (09:02→16:36)
[2021-10-29] MEDS: MULTIVIT W/MINERALS 1 TAB TABLET GT SCH (09:03)
[2021-10-29] MEDS: NYSTATIN TOP POWDER 15 GM BOTTLE TP SCH ×2 (09:03→20:38)
[2021-10-29] MEDS: VITAMINS A AND D 56.7 GM TUBE TP SCH ×4 (09:03→20:38)
[2021-10-29] MEDS: ZINC SULFATE 220 MG CAPSULE GT SCH (09:03)
[2021-10-29] MEDS: Z GUARD REMEDY 4 OZ OINT TP SCH ×2 (09:03→20:38)
[2021-10-29] MEDS: LISINOPRIL (5MG) 5 MG TABLET GT SCH (09:03)
[2021-10-29] MEDS: ASCORBIC ACID 500 MG TABLET GT SCH (09:03)
[2021-10-29] MEDS: HYDROGEN PEROXIDE 480 ML BOTTLE TP SCH ×2 (09:32→20:20)
--- NOTE | 2021-10-29 14:47 | NUR ---
Facility Update: ORACIO emailed, the patient's daughter, Kelly to inform family that : "Facility Update: Please note that no Sub-Acute employee has tested positive for COVID-19 after Monday. [facility] continues to following [facility] infection control guidelines. [facility] will continue response testing and screening for symptoms. Staff will be tested twice a week and patients will be tested on a weekly basis." ORACIO also informed family that [facility] currently has some residents on quarantine due to COVID-19 exposure. That there is exposure risk if visiting a patient that is on quarantine. We ask visitors to monitor their symptoms and reschedule their visit if they have any COVID-19 symptoms or want to avoid possible exposure. All visitation Guidelines remain the same. ORACIO attached current visitation guidelines on email.
[2021-10-29 18:30] VITALS: BP 110/72
[2021-10-29 19:43] VITALS: BP 109/73
[2021-10-29] MEDS: ATORVASTATIN 10 MG TABLET GT SCH (21:09)
[2021-10-29] MEDS: POLYETHYLENE GLYCOL 3350 17 GM POWD.PACK GT SCH (21:09)
[2021-10-29] MEDS: INSULIN GLARGINE,BASAGLAR 100 UNIT/ML INSULN.PEN SQ SCH (21:10)
[2021-10-29] MEDS: ENOXAPARIN SODIUM 40 MG/0.4 ML DISP.SYRIN SQ SCH (21:10)
[2021-10-30 00:11] VITALS: BP 110/81
[2021-10-30] MEDS: IPRATROPIUM NEB FS 0.5 MG/2.5 ML AMPUL.NEB NEB SCH ×4 (01:49→20:18)
[2021-10-30] MEDS: ALBUTEROL FS 2.5 MG/3 ML VIAL.NEB NEB SCH ×4 (01:49→20:18)
[2021-10-30] MEDS: POLYVINYL ALCOHOL 15 ML BOTTLE EACHEYE SCH ×4 (05:37→23:19)
[2021-10-30] MEDS: OMEPRAZOLE 20 MG CAPSULE.DR GT SCH (05:37)
[2021-10-30] MEDS: BLOOD SUGAR DIAGNOSTIC 1 EACH STRIP IN SCH ×4 (05:38→23:19)
[2021-10-30] MEDS: GLUCERNA 1.2 1,000 ML BOTTLE GT PRN (05:38)
[2021-10-30] MEDS: INSULIN ASPART/LISPRO 100 UNIT/ML CARTRIDGE SQ PRN ×4 (05:38→23:20)
[2021-10-30 07:48] VITALS: BP 131/64
[2021-10-30] MEDS: HYDROGEN PEROXIDE 480 ML BOTTLE TP SCH ×2 (09:00→20:18)
[2021-10-30] MEDS: DOCUSATE SODIUM LIQ 100 MG/10 ML UDC GT SCH ×2 (09:20→17:18)
[2021-10-30] MEDS: FERROUS SULFATE - FOR SA ONLY 330 MG/7.5 ML UDC GT SCH (09:20)
[2021-10-30] MEDS: LEVETIRACETAM SOL (5 ML) 100 MG/ML UDC GT SCH ×2 (09:20→21:19)
[2021-10-30] MEDS: DILTIAZEM HCL 30 MG TABLET GT SCH ×2 (09:20→21:19)
[2021-10-30] MEDS: ACIDOPHILUS/BULGARICUS 1 EACH TAB.CHEW GT SCH ×2 (09:20→17:18)
[2021-10-30] MEDS: SITAGLIPTIN PHOSPHATE 50 MG TABLET GT SCH (09:20)
[2021-10-30] MEDS: Z GUARD REMEDY 4 OZ OINT TP SCH ×2 (09:21→21:20)
[2021-10-30] MEDS: LISINOPRIL (5MG) 5 MG TABLET GT SCH (09:21)
[2021-10-30] MEDS: MULTIVIT W/MINERALS 1 TAB TABLET GT SCH (09:21)
[2021-10-30] MEDS: NYSTATIN TOP POWDER 15 GM BOTTLE TP SCH ×2 (09:21→21:20)
[2021-10-30] MEDS: ASCORBIC ACID 500 MG TABLET GT SCH (09:21)
[2021-10-30] MEDS: VITAMINS A AND D 56.7 GM TUBE TP SCH ×4 (09:21→21:20)
[2021-10-30] MEDS: ZINC SULFATE 220 MG CAPSULE GT SCH (09:21)
[2021-10-30 19:10] VITALS: BP 122/67
[2021-10-30] MEDS: ATORVASTATIN 10 MG TABLET GT SCH (21:20)
[2021-10-30] MEDS: POLYETHYLENE GLYCOL 3350 17 GM POWD.PACK GT SCH (21:20)
[2021-10-30] MEDS: INSULIN GLARGINE,BASAGLAR 100 UNIT/ML INSULN.PEN SQ SCH (21:21)
[2021-10-30] MEDS: ENOXAPARIN SODIUM 40 MG/0.4 ML DISP.SYRIN SQ SCH (21:22)
[2021-10-31] MEDS: ALBUTEROL FS 2.5 MG/3 ML VIAL.NEB NEB SCH ×4 (01:56→19:15)
[2021-10-31] MEDS: IPRATROPIUM NEB FS 0.5 MG/2.5 ML AMPUL.NEB NEB SCH ×4 (01:56→19:15)
--- NOTE | 2021-10-31 04:06 | NUR ---
RT NOTE Received pt cool aerosol 5LPM, 28%. Pt is tolerating well. HHN TX's given, no A/R noted. Suctioned PRN, no SOB noted. Trach care done. Water changed.
[2021-10-31] MEDS: POLYVINYL ALCOHOL 15 ML BOTTLE EACHEYE SCH ×4 (05:06→23:08)
[2021-10-31] MEDS: OMEPRAZOLE 20 MG CAPSULE.DR GT SCH (05:06)
[2021-10-31] MEDS: BLOOD SUGAR DIAGNOSTIC 1 EACH STRIP IN SCH ×3 (05:14→17:08)
[2021-10-31] MEDS: INSULIN ASPART/LISPRO 100 UNIT/ML CARTRIDGE SQ PRN ×3 (05:14→17:09)
[2021-10-31 07:30] VITALS: BP 110/66
[2021-10-31] MEDS: DOCUSATE SODIUM LIQ 100 MG/10 ML UDC GT SCH ×2 (08:57→17:08)
[2021-10-31] MEDS: DILTIAZEM HCL 30 MG TABLET GT SCH ×2 (08:57→21:00)
[2021-10-31] MEDS: FERROUS SULFATE - FOR SA ONLY 330 MG/7.5 ML UDC GT SCH (08:57)
[2021-10-31] MEDS: SITAGLIPTIN PHOSPHATE 50 MG TABLET GT SCH (08:57)
[2021-10-31] MEDS: LEVETIRACETAM SOL (5 ML) 100 MG/ML UDC GT SCH ×2 (08:57→21:00)
[2021-10-31] MEDS: ACIDOPHILUS/BULGARICUS 1 EACH TAB.CHEW GT SCH ×2 (08:57→17:08)
[2021-10-31] MEDS: ASCORBIC ACID 500 MG TABLET GT SCH (08:58)
[2021-10-31] MEDS: ZINC SULFATE 220 MG CAPSULE GT SCH (08:58)
[2021-10-31] MEDS: Z GUARD REMEDY 4 OZ OINT TP SCH ×2 (08:58→21:00)
[2021-10-31] MEDS: MULTIVIT W/MINERALS 1 TAB TABLET GT SCH (08:58)
[2021-10-31] MEDS: LISINOPRIL (5MG) 5 MG TABLET GT SCH (08:58)
[2021-10-31] MEDS: VITAMINS A AND D 56.7 GM TUBE TP SCH ×4 (08:58→21:00)
[2021-10-31] MEDS: NYSTATIN TOP POWDER 15 GM BOTTLE TP SCH ×2 (08:58→21:00)
[2021-10-31] MEDS: HYDROGEN PEROXIDE 480 ML BOTTLE TP SCH ×2 (09:00→19:15)
--- NOTE | 2021-10-31 09:40 | NUR ---
RT NOTE PT RECEIVED TRACH'D ON COOL AEROSOL. TRACH SECURED AND AIRWAY PATENT. SPARE TRACH AND AMBU BAG AT HEAD OF BED. NO SOB OR SIGNS OF DISTRESS NOTED AT THIS TIME.
[2021-10-31 12:32] VITALS: BP 112/68
[2021-10-31] MEDS: GLUCERNA 1.2 1,000 ML BOTTLE GT PRN (17:09)
[2021-10-31 20:52] VITALS: BP 105/72
[2021-10-31] MEDS: ENOXAPARIN SODIUM 40 MG/0.4 ML DISP.SYRIN SQ SCH (22:00)
[2021-10-31] MEDS: POLYETHYLENE GLYCOL 3350 17 GM POWD.PACK GT SCH (22:58)
[2021-10-31] MEDS: ATORVASTATIN 10 MG TABLET GT SCH (22:58)
[2021-10-31] MEDS: INSULIN GLARGINE,BASAGLAR 100 UNIT/ML INSULN.PEN SQ SCH (23:00)
[2021-11-01] MEDS: BLOOD SUGAR DIAGNOSTIC 1 EACH STRIP IN SCH ×4 (00:47→17:19)
[2021-11-01] MEDS: ALBUTEROL FS 2.5 MG/3 ML VIAL.NEB NEB SCH ×4 (02:01→20:06)
[2021-11-01] MEDS: IPRATROPIUM NEB FS 0.5 MG/2.5 ML AMPUL.NEB NEB SCH ×4 (02:01→20:06)
[2021-11-01] MEDS: OMEPRAZOLE 20 MG CAPSULE.DR GT SCH (05:36)
[2021-11-01] MEDS: POLYVINYL ALCOHOL 15 ML BOTTLE EACHEYE SCH ×4 (05:36→23:12)
[2021-11-01 07:31] VITALS: BP 102/65
[2021-11-01] MEDS: SITAGLIPTIN PHOSPHATE 50 MG TABLET GT SCH (08:28)
[2021-11-01] MEDS: DOCUSATE SODIUM LIQ 100 MG/10 ML UDC GT SCH ×2 (08:28→17:00)
[2021-11-01] MEDS: ZINC SULFATE 220 MG CAPSULE GT SCH (08:28)
[2021-11-01] MEDS: ACIDOPHILUS/BULGARICUS 1 EACH TAB.CHEW GT SCH ×2 (08:28→17:00)
[2021-11-01] MEDS: LISINOPRIL (5MG) 5 MG TABLET GT SCH (08:28)
[2021-11-01] MEDS: MULTIVIT W/MINERALS 1 TAB TABLET GT SCH (08:28)
[2021-11-01] MEDS: FERROUS SULFATE - FOR SA ONLY 330 MG/7.5 ML UDC GT SCH (08:28)
[2021-11-01] MEDS: DILTIAZEM HCL 30 MG TABLET GT SCH ×2 (08:28→21:00)
[2021-11-01] MEDS: LEVETIRACETAM SOL (5 ML) 100 MG/ML UDC GT SCH ×2 (08:28→21:00)
[2021-11-01] MEDS: ASCORBIC ACID 500 MG TABLET GT SCH (08:28)
[2021-11-01] MEDS: Z GUARD REMEDY 4 OZ OINT TP SCH ×2 (08:29→21:00)
[2021-11-01] MEDS: VITAMINS A AND D 56.7 GM TUBE TP SCH ×4 (08:29→21:00)
[2021-11-01] MEDS: NYSTATIN TOP POWDER 15 GM BOTTLE TP SCH ×2 (08:29→21:00)
[2021-11-01] MEDS: HYDROGEN PEROXIDE 480 ML BOTTLE TP SCH ×2 (09:20→21:03)
[2021-11-01] MEDS: INSULIN ASPART/LISPRO 100 UNIT/ML CARTRIDGE SQ PRN ×2 (13:08→17:20)
[2021-11-01 13:11] VITALS: BP 106/64
[2021-11-01] MEDS: GLUCERNA 1.2 1,000 ML BOTTLE GT PRN (15:47)
[2021-11-01 20:41] VITALS: BP 138/72
--- NOTE | 2021-11-01 21:32 | NUR ---
RT Patient was received on 28% cool aerosol, trach tube midline and secured. Will continue continue to monitor throughout the shift. Addendum: 11/01/21 at 2133 by SHYANN BARRETT RT Amended: Links added.
[2021-11-01] MEDS: INSULIN GLARGINE,BASAGLAR 100 UNIT/ML INSULN.PEN SQ SCH (22:00)
[2021-11-01] MEDS: ATORVASTATIN 10 MG TABLET GT SCH (22:13)
[2021-11-01] MEDS: POLYETHYLENE GLYCOL 3350 17 GM POWD.PACK GT SCH (22:13)
[2021-11-01] MEDS: ENOXAPARIN SODIUM 40 MG/0.4 ML DISP.SYRIN SQ SCH (22:14)
[2021-11-02] MEDS: BLOOD SUGAR DIAGNOSTIC 1 EACH STRIP IN SCH ×5 (00:27→23:26)
[2021-11-02] MEDS: IPRATROPIUM NEB FS 0.5 MG/2.5 ML AMPUL.NEB NEB SCH ×4 (01:31→20:03)
[2021-11-02] MEDS: ALBUTEROL FS 2.5 MG/3 ML VIAL.NEB NEB SCH ×4 (01:31→20:03)
[2021-11-02] MEDS: POLYVINYL ALCOHOL 15 ML BOTTLE EACHEYE SCH ×4 (05:33→23:26)
[2021-11-02] MEDS: OMEPRAZOLE 20 MG CAPSULE.DR GT SCH (05:33)
[2021-11-02 07:53] VITALS: BP 102/71
--- NOTE | 2021-11-02 08:13 | NUR ---
RECEIVED PT ON CA 28% 5LPM. NO RESP DISTRES. SPO2 98% ON CURRENT SETTINGS. TIN CLEAR SECRETIONS DURING SUCTION. TRACH IS SECURED AND PATENT. SPARE TRACH AND AMBU BAG ARE BEDSIDE.
--- NOTE | 2021-11-02 08:14 | NUR ---
RT RECEIVED PT ON CA 28% 5LPM. NO RESP DISTRESS. THIN CLEAR SECRETIONS DURING SUCTION. SPO2 98%. TRACH IS SECURED AND PATENT. SPARE TRACH AND AMBU BAG BEDSIDE. Addendum: 11/02/21 at 0815 by Ankur Kang RT Amended: Links added.
[2021-11-02] MEDS: DOCUSATE SODIUM LIQ 100 MG/10 ML UDC GT SCH ×2 (08:26→17:11)
[2021-11-02] MEDS: DILTIAZEM HCL 30 MG TABLET GT SCH ×2 (08:26→21:00)
[2021-11-02] MEDS: ACIDOPHILUS/BULGARICUS 1 EACH TAB.CHEW GT SCH ×2 (08:26→17:11)
[2021-11-02] MEDS: SITAGLIPTIN PHOSPHATE 50 MG TABLET GT SCH (08:26)
[2021-11-02] MEDS: LEVETIRACETAM SOL (5 ML) 100 MG/ML UDC GT SCH ×2 (08:26→21:19)
[2021-11-02] MEDS: FERROUS SULFATE - FOR SA ONLY 330 MG/7.5 ML UDC GT SCH (08:26)
[2021-11-02] MEDS: ZINC SULFATE 220 MG CAPSULE GT SCH (08:27)
[2021-11-02] MEDS: MULTIVIT W/MINERALS 1 TAB TABLET GT SCH (08:27)
[2021-11-02] MEDS: LISINOPRIL (5MG) 5 MG TABLET GT SCH (08:27)
[2021-11-02] MEDS: ASCORBIC ACID 500 MG TABLET GT SCH (08:27)
[2021-11-02] MEDS: VITAMINS A AND D 56.7 GM TUBE TP SCH ×4 (09:07→21:19)
[2021-11-02] MEDS: NYSTATIN TOP POWDER 15 GM BOTTLE TP SCH ×2 (09:07→21:19)
[2021-11-02] MEDS: Z GUARD REMEDY 4 OZ OINT TP SCH ×2 (09:07→21:19)
[2021-11-02] MEDS: HYDROGEN PEROXIDE 480 ML BOTTLE TP SCH ×2 (09:07→20:03)
[2021-11-02 15:20] VITALS: BP 118/67
[2021-11-02] MEDS: INSULIN ASPART/LISPRO 100 UNIT/ML CARTRIDGE SQ PRN ×2 (17:19→23:26)
[2021-11-02] MEDS: GLUCERNA 1.2 1,000 ML BOTTLE GT PRN (17:32)
[2021-11-02 19:24] VITALS: BP 110/59
[2021-11-02] MEDS: ATORVASTATIN 10 MG TABLET GT SCH (21:19)
[2021-11-02] MEDS: POLYETHYLENE GLYCOL 3350 17 GM POWD.PACK GT SCH (21:20)
[2021-11-02] MEDS: INSULIN GLARGINE,BASAGLAR 100 UNIT/ML INSULN.PEN SQ SCH (21:22)
[2021-11-02] MEDS: ENOXAPARIN SODIUM 40 MG/0.4 ML DISP.SYRIN SQ SCH (21:23)
[2021-11-03] MEDS: ALBUTEROL FS 2.5 MG/3 ML VIAL.NEB NEB SCH ×4 (01:30→20:21)
[2021-11-03] MEDS: IPRATROPIUM NEB FS 0.5 MG/2.5 ML AMPUL.NEB NEB SCH ×4 (01:30→20:21)
[2021-11-03] MEDS: POLYVINYL ALCOHOL 15 ML BOTTLE EACHEYE SCH ×3 (05:52→17:49)
[2021-11-03] MEDS: OMEPRAZOLE 20 MG CAPSULE.DR GT SCH (05:52)
[2021-11-03] MEDS: BLOOD SUGAR DIAGNOSTIC 1 EACH STRIP IN SCH ×3 (05:52→17:49)
[2021-11-03] MEDS: INSULIN ASPART/LISPRO 100 UNIT/ML CARTRIDGE SQ PRN ×3 (05:52→17:50)
[2021-11-03 07:45] VITALS: BP 112/58
[2021-11-03] MEDS: HYDROGEN PEROXIDE 480 ML BOTTLE TP SCH ×2 (08:10→20:21)
[2021-11-03] MEDS: MULTIVIT W/MINERALS 1 TAB TABLET GT SCH (09:00)
[2021-11-03] MEDS: DOCUSATE SODIUM LIQ 100 MG/10 ML UDC GT SCH ×2 (09:00→16:50)
[2021-11-03] MEDS: SITAGLIPTIN PHOSPHATE 50 MG TABLET GT SCH (09:00)
[2021-11-03] MEDS: ACIDOPHILUS/BULGARICUS 1 EACH TAB.CHEW GT SCH ×2 (09:00→16:50)
[2021-11-03] MEDS: DILTIAZEM HCL 30 MG TABLET GT SCH ×2 (09:00→21:00)
[2021-11-03] MEDS: VITAMINS A AND D 56.7 GM TUBE TP SCH ×4 (09:00→21:07)
[2021-11-03] MEDS: Z GUARD REMEDY 4 OZ OINT TP SCH ×2 (09:00→21:07)
[2021-11-03] MEDS: NYSTATIN TOP POWDER 15 GM BOTTLE TP SCH (09:00)
[2021-11-03] MEDS: LEVETIRACETAM SOL (5 ML) 100 MG/ML UDC GT SCH ×2 (09:00→21:07)
[2021-11-03] MEDS: FERROUS SULFATE - FOR SA ONLY 330 MG/7.5 ML UDC GT SCH (09:00)
[2021-11-03] MEDS: ASCORBIC ACID 500 MG TABLET GT SCH (09:00)
[2021-11-03] MEDS: LISINOPRIL (5MG) 5 MG TABLET GT SCH (09:00)
[2021-11-03] MEDS: ZINC SULFATE 220 MG CAPSULE GT SCH (09:00)
[2021-11-03 13:32] VITALS: BP 117/60
[2021-11-03] MEDS: GLUCERNA 1.2 1,000 ML BOTTLE GT PRN (14:36)
[2021-11-03 19:12] VITALS: BP 109/62
[2021-11-03] MEDS: ATORVASTATIN 10 MG TABLET GT SCH (21:07)
[2021-11-03] MEDS: POLYETHYLENE GLYCOL 3350 17 GM POWD.PACK GT SCH (21:07)
[2021-11-03] MEDS: ENOXAPARIN SODIUM 40 MG/0.4 ML DISP.SYRIN SQ SCH (21:08)
[2021-11-03] MEDS: INSULIN GLARGINE,BASAGLAR 100 UNIT/ML INSULN.PEN SQ SCH (21:55)
[2021-11-04] MEDS: INSULIN ASPART/LISPRO 100 UNIT/ML CARTRIDGE SQ PRN ×5 (00:18→23:22)
[2021-11-04] MEDS: POLYVINYL ALCOHOL 15 ML BOTTLE EACHEYE SCH ×5 (00:18→23:12)
[2021-11-04] MEDS: BLOOD SUGAR DIAGNOSTIC 1 EACH STRIP IN SCH ×5 (00:18→23:22)
[2021-11-04 00:39] VITALS: BP 119/64
[2021-11-04] MEDS: ALBUTEROL FS 2.5 MG/3 ML VIAL.NEB NEB SCH ×4 (01:56→19:30)
[2021-11-04] MEDS: IPRATROPIUM NEB FS 0.5 MG/2.5 ML AMPUL.NEB NEB SCH ×4 (01:56→19:30)
[2021-11-04] MEDS: OMEPRAZOLE 20 MG CAPSULE.DR GT SCH (05:37)
[2021-11-04] MEDS: GLUCERNA 1.2 1,000 ML BOTTLE GT PRN (06:57)
[2021-11-04 07:19] VITALS: BP 82/52
[2021-11-04] MEDS: HYDROGEN PEROXIDE 480 ML BOTTLE TP SCH ×2 (08:02→19:31)
[2021-11-04] MEDS: DILTIAZEM HCL 30 MG TABLET GT SCH ×2 (08:25→21:04)
[2021-11-04] MEDS: FERROUS SULFATE - FOR SA ONLY 330 MG/7.5 ML UDC GT SCH (08:27)
[2021-11-04] MEDS: DOCUSATE SODIUM LIQ 100 MG/10 ML UDC GT SCH ×2 (08:27→16:16)
[2021-11-04] MEDS: SITAGLIPTIN PHOSPHATE 50 MG TABLET GT SCH (08:28)
[2021-11-04] MEDS: LEVETIRACETAM SOL (5 ML) 100 MG/ML UDC GT SCH ×2 (08:28→21:04)
[2021-11-04] MEDS: ZINC SULFATE 220 MG CAPSULE GT SCH (08:29)
[2021-11-04] MEDS: ASCORBIC ACID 500 MG TABLET GT SCH (08:29)
[2021-11-04] MEDS: Z GUARD REMEDY 4 OZ OINT TP SCH ×2 (08:29→21:04)
[2021-11-04] MEDS: ACIDOPHILUS/BULGARICUS 1 EACH TAB.CHEW GT SCH ×2 (08:29→16:16)
[2021-11-04] MEDS: LISINOPRIL (5MG) 5 MG TABLET GT SCH (08:29)
[2021-11-04] MEDS: MULTIVIT W/MINERALS 1 TAB TABLET GT SCH (08:29)
[2021-11-04] MEDS: VITAMINS A AND D 56.7 GM TUBE TP SCH ×4 (08:30→21:04)
[2021-11-04 11:35] VITALS: BP 108/71
[2021-11-04 19:37] VITALS: BP 117/72
[2021-11-04] MEDS: ENOXAPARIN SODIUM 40 MG/0.4 ML DISP.SYRIN SQ SCH (21:04)
[2021-11-04] MEDS: POLYETHYLENE GLYCOL 3350 17 GM POWD.PACK GT SCH (21:04)
[2021-11-04] MEDS: ATORVASTATIN 10 MG TABLET GT SCH (21:04)
[2021-11-04] MEDS: INSULIN GLARGINE,BASAGLAR 100 UNIT/ML INSULN.PEN SQ SCH (21:08)
[2021-11-05 00:03] VITALS: BP 148/85
[2021-11-05] MEDS: ALBUTEROL FS 2.5 MG/3 ML VIAL.NEB NEB SCH ×4 (01:39→19:00)
[2021-11-05] MEDS: IPRATROPIUM NEB FS 0.5 MG/2.5 ML AMPUL.NEB NEB SCH ×4 (01:39→18:59)
[2021-11-05] MEDS: GLUCERNA 1.2 1,000 ML BOTTLE GT PRN ×2 (05:12→23:38)
[2021-11-05] MEDS: OMEPRAZOLE 20 MG CAPSULE.DR GT SCH (05:12)
[2021-11-05] MEDS: BLOOD SUGAR DIAGNOSTIC 1 EACH STRIP IN SCH ×4 (05:12→23:38)
[2021-11-05] MEDS: POLYVINYL ALCOHOL 15 ML BOTTLE EACHEYE SCH ×4 (05:12→23:38)
[2021-11-05] MEDS: INSULIN ASPART/LISPRO 100 UNIT/ML CARTRIDGE SQ PRN ×3 (05:13→23:38)
--- NOTE | 2021-11-05 05:34 | NUR ---
PATIENT RECEIVED ON 28% AEROSOL T-TUBE, TOLERATING WITH NO DISTRESS/SOB NOTED. SUCTIONED FOR MINIMAL, THIN, WHITE SECRETIONS. GIVEN IN-LINE TREATMENTS WITH NO ADVERSE REACTIONS. AMBU BAG AT BEDSIDE. TRACH CARE DONE. Addendum: 11/05/21 at 0535 by KAISER LAW RT Amended: Links added.
[2021-11-05 07:12] VITALS: BP 152/87
[2021-11-05] MEDS: SITAGLIPTIN PHOSPHATE 50 MG TABLET GT SCH (08:37)
[2021-11-05] MEDS: ZINC SULFATE 220 MG CAPSULE GT SCH (08:37)
[2021-11-05] MEDS: FERROUS SULFATE - FOR SA ONLY 330 MG/7.5 ML UDC GT SCH (08:37)
[2021-11-05] MEDS: MULTIVIT W/MINERALS 1 TAB TABLET GT SCH (08:37)
[2021-11-05] MEDS: DOCUSATE SODIUM LIQ 100 MG/10 ML UDC GT SCH ×2 (08:37→17:09)
[2021-11-05] MEDS: ACIDOPHILUS/BULGARICUS 1 EACH TAB.CHEW GT SCH ×2 (08:37→17:09)
[2021-11-05] MEDS: VITAMINS A AND D 56.7 GM TUBE TP SCH ×4 (08:37→21:14)
[2021-11-05] MEDS: Z GUARD REMEDY 4 OZ OINT TP SCH ×2 (08:37→21:14)
[2021-11-05] MEDS: LEVETIRACETAM SOL (5 ML) 100 MG/ML UDC GT SCH ×2 (08:37→21:14)
[2021-11-05] MEDS: LISINOPRIL (5MG) 5 MG TABLET GT SCH (08:37)
[2021-11-05] MEDS: ASCORBIC ACID 500 MG TABLET GT SCH (08:37)
[2021-11-05] MEDS: DILTIAZEM HCL 30 MG TABLET GT SCH ×2 (08:37→21:13)
[2021-11-05] MEDS: HYDROGEN PEROXIDE 480 ML BOTTLE TP SCH ×2 (09:49→20:17)
[2021-11-05 12:09] VITALS: BP 135/75
--- NOTE | 2021-11-05 17:30 | NUR ---
RT RECEIVED PT ON CA 28% 5LPM. NO RESP DISTRESS. THIN SECRETION UPON SUCTION. TRACH IS SECURED AND PATENT. SPARE TRACH AND AMBU BEDSIDE. PT CURRENTLY STABLE WILL CONTINUE TO MONITOR FOR ANY CHANGES.
[2021-11-05 19:41] VITALS: BP 110/58
[2021-11-05] MEDS: ATORVASTATIN 10 MG TABLET GT SCH (21:14)
[2021-11-05] MEDS: POLYETHYLENE GLYCOL 3350 17 GM POWD.PACK GT SCH (21:14)
[2021-11-05] MEDS: ENOXAPARIN SODIUM 40 MG/0.4 ML DISP.SYRIN SQ SCH (21:16)
[2021-11-05] MEDS: INSULIN GLARGINE,BASAGLAR 100 UNIT/ML INSULN.PEN SQ SCH (21:16)
[2021-11-06 00:20] VITALS: BP 115/68
[2021-11-06] MEDS: IPRATROPIUM NEB FS 0.5 MG/2.5 ML AMPUL.NEB NEB SCH ×4 (01:18→19:48)
[2021-11-06] MEDS: ALBUTEROL FS 2.5 MG/3 ML VIAL.NEB NEB SCH ×4 (01:18→19:48)
[2021-11-06] MEDS: OMEPRAZOLE 20 MG CAPSULE.DR GT SCH (05:30)
[2021-11-06] MEDS: POLYVINYL ALCOHOL 15 ML BOTTLE EACHEYE SCH ×3 (05:30→17:45)
[2021-11-06] MEDS: BLOOD SUGAR DIAGNOSTIC 1 EACH STRIP IN SCH ×3 (05:30→18:15)
[2021-11-06] MEDS: INSULIN ASPART/LISPRO 100 UNIT/ML CARTRIDGE SQ PRN ×3 (05:31→18:15)
[2021-11-06 07:14] VITALS: BP 102/58
[2021-11-06] MEDS: DILTIAZEM HCL 30 MG TABLET GT SCH ×2 (09:00→21:43)
[2021-11-06] MEDS: HYDROGEN PEROXIDE 480 ML BOTTLE TP SCH ×2 (09:12→21:12)
[2021-11-06] MEDS: ZINC SULFATE 220 MG CAPSULE GT SCH (09:52)
[2021-11-06] MEDS: ACIDOPHILUS/BULGARICUS 1 EACH TAB.CHEW GT SCH ×2 (09:52→17:45)
[2021-11-06] MEDS: SITAGLIPTIN PHOSPHATE 50 MG TABLET GT SCH (09:52)
[2021-11-06] MEDS: MULTIVIT W/MINERALS 1 TAB TABLET GT SCH (09:52)
[2021-11-06] MEDS: FERROUS SULFATE - FOR SA ONLY 330 MG/7.5 ML UDC GT SCH (09:52)
[2021-11-06] MEDS: Z GUARD REMEDY 4 OZ OINT TP SCH ×2 (09:52→21:43)
[2021-11-06] MEDS: LEVETIRACETAM SOL (5 ML) 100 MG/ML UDC GT SCH ×2 (09:52→21:43)
[2021-11-06] MEDS: VITAMINS A AND D 56.7 GM TUBE TP SCH ×4 (09:52→21:43)
[2021-11-06] MEDS: DOCUSATE SODIUM LIQ 100 MG/10 ML UDC GT SCH ×2 (09:52→17:45)
[2021-11-06] MEDS: LISINOPRIL (5MG) 5 MG TABLET GT SCH (09:52)
[2021-11-06] MEDS: ASCORBIC ACID 500 MG TABLET GT SCH (09:52)
[2021-11-06 11:58] VITALS: BP 79/55
[2021-11-06] MEDS: GLUCERNA 1.2 1,000 ML BOTTLE GT PRN (18:20)
[2021-11-06 20:48] VITALS: BP 125/69
[2021-11-06] MEDS: POLYETHYLENE GLYCOL 3350 17 GM POWD.PACK GT SCH (21:43)
[2021-11-06] MEDS: ATORVASTATIN 10 MG TABLET GT SCH (21:43)
[2021-11-06] MEDS: ENOXAPARIN SODIUM 40 MG/0.4 ML DISP.SYRIN SQ SCH (21:44)
[2021-11-06] MEDS: INSULIN GLARGINE,BASAGLAR 100 UNIT/ML INSULN.PEN SQ SCH (21:46)
[2021-11-07] MEDS: INSULIN ASPART/LISPRO 100 UNIT/ML CARTRIDGE SQ PRN ×3 (00:22→13:32)
[2021-11-07] MEDS: BLOOD SUGAR DIAGNOSTIC 1 EACH STRIP IN SCH ×4 (00:22→17:26)
[2021-11-07] MEDS: POLYVINYL ALCOHOL 15 ML BOTTLE EACHEYE SCH ×4 (00:22→17:07)
[2021-11-07] MEDS: ALBUTEROL FS 2.5 MG/3 ML VIAL.NEB NEB SCH ×4 (01:35→19:48)
[2021-11-07] MEDS: IPRATROPIUM NEB FS 0.5 MG/2.5 ML AMPUL.NEB NEB SCH ×4 (01:35→19:48)
[2021-11-07] MEDS: OMEPRAZOLE 20 MG CAPSULE.DR GT SCH (05:57)
--- NOTE | 2021-11-07 06:23 | NUR ---
RT Patient remains stable on 28% cool aerosol throughout the shift, no respiratory distress noted. Trach tube midline , patent and secured, will continue to monitor. Addendum: 11/07/21 at 0624 by SHYANN BARRETT RT Amended: Links added.
[2021-11-07 07:30] VITALS: BP 122/74
[2021-11-07] MEDS: DOCUSATE SODIUM LIQ 100 MG/10 ML UDC GT SCH ×2 (08:55→16:59)
[2021-11-07] MEDS: LEVETIRACETAM SOL (5 ML) 100 MG/ML UDC GT SCH ×2 (08:55→21:26)
[2021-11-07] MEDS: ASCORBIC ACID 500 MG TABLET GT SCH (08:55)
[2021-11-07] MEDS: VITAMINS A AND D 56.7 GM TUBE TP SCH ×4 (08:55→21:27)
[2021-11-07] MEDS: Z GUARD REMEDY 4 OZ OINT TP SCH ×2 (08:55→21:27)
[2021-11-07] MEDS: MULTIVIT W/MINERALS 1 TAB TABLET GT SCH (08:55)
[2021-11-07] MEDS: DILTIAZEM HCL 30 MG TABLET GT SCH ×2 (08:55→21:26)
[2021-11-07] MEDS: SITAGLIPTIN PHOSPHATE 50 MG TABLET GT SCH (08:55)
[2021-11-07] MEDS: FERROUS SULFATE - FOR SA ONLY 330 MG/7.5 ML UDC GT SCH (08:55)
[2021-11-07] MEDS: LISINOPRIL (5MG) 5 MG TABLET GT SCH (08:55)
[2021-11-07] MEDS: ACIDOPHILUS/BULGARICUS 1 EACH TAB.CHEW GT SCH ×2 (08:55→16:59)
[2021-11-07] MEDS: ZINC SULFATE 220 MG CAPSULE GT SCH (08:55)
[2021-11-07] MEDS: HYDROGEN PEROXIDE 480 ML BOTTLE TP SCH ×2 (09:02→21:18)
--- NOTE | 2021-11-07 10:39 | NUR ---
Today I text Kelly ,and offering Face Time to see her mom ,nobody answering ,I leave a message she can call back to nurse station. Addendum: 11/07/21 at 1057 by MARCELLO RAMESH CNA So she can call back at her convenience time.
[2021-11-07 12:47] VITALS: BP 96/61
[2021-11-07] MEDS: GLUCERNA 1.2 1,000 ML BOTTLE GT PRN (13:41)
--- NOTE | 2021-11-07 19:49 | NUR ---
Patient received awake and stable on C/A 5LPM 28%. Trach secured and patent. Q6 breathing treatment given and tolerated well without adverse effect. Suction PRN. Spare trach and ambu bag at bedside. No sob or respiratory distress noted. Will continue to monitor t/o shift.
[2021-11-07 20:28] VITALS: BP 123/73
[2021-11-07] MEDS: POLYETHYLENE GLYCOL 3350 17 GM POWD.PACK GT SCH (21:27)
[2021-11-07] MEDS: ATORVASTATIN 10 MG TABLET GT SCH (21:27)
[2021-11-07] MEDS: ENOXAPARIN SODIUM 40 MG/0.4 ML DISP.SYRIN SQ SCH (21:28)
[2021-11-07] MEDS: INSULIN GLARGINE,BASAGLAR 100 UNIT/ML INSULN.PEN SQ SCH (22:25)
[2021-11-08] MEDS: ALBUTEROL FS 2.5 MG/3 ML VIAL.NEB NEB SCH ×4 (01:40→20:27)
[2021-11-08] MEDS: IPRATROPIUM NEB FS 0.5 MG/2.5 ML AMPUL.NEB NEB SCH ×4 (01:40→20:27)
[2021-11-08] MEDS: POLYVINYL ALCOHOL 15 ML BOTTLE EACHEYE SCH ×4 (06:03→17:58)
[2021-11-08] MEDS: OMEPRAZOLE 20 MG CAPSULE.DR GT SCH (06:03)
[2021-11-08] MEDS: BLOOD SUGAR DIAGNOSTIC 1 EACH STRIP IN SCH ×4 (06:03→17:58)
[2021-11-08 07:25] VITALS: BP 108/50
[2021-11-08] MEDS: HYDROGEN PEROXIDE 480 ML BOTTLE TP SCH ×2 (08:05→21:08)
[2021-11-08] MEDS: SITAGLIPTIN PHOSPHATE 50 MG TABLET GT SCH (08:45)
[2021-11-08] MEDS: LEVETIRACETAM SOL (5 ML) 100 MG/ML UDC GT SCH ×2 (08:45→21:34)
[2021-11-08] MEDS: ACIDOPHILUS/BULGARICUS 1 EACH TAB.CHEW GT SCH ×2 (08:45→16:38)
[2021-11-08] MEDS: FERROUS SULFATE - FOR SA ONLY 330 MG/7.5 ML UDC GT SCH (08:45)
[2021-11-08] MEDS: DOCUSATE SODIUM LIQ 100 MG/10 ML UDC GT SCH ×2 (08:45→16:38)
[2021-11-08] MEDS: MULTIVIT W/MINERALS 1 TAB TABLET GT SCH (08:46)
[2021-11-08] MEDS: LISINOPRIL (5MG) 5 MG TABLET GT SCH (08:46)
[2021-11-08] MEDS: ZINC SULFATE 220 MG CAPSULE GT SCH (08:46)
[2021-11-08] MEDS: Z GUARD REMEDY 4 OZ OINT TP SCH ×2 (08:46→21:34)
[2021-11-08] MEDS: ASCORBIC ACID 500 MG TABLET GT SCH (08:46)
[2021-11-08] MEDS: VITAMINS A AND D 56.7 GM TUBE TP SCH ×4 (08:46→21:34)
[2021-11-08] MEDS: DILTIAZEM HCL 30 MG TABLET GT SCH ×2 (08:51→21:34)
--- NOTE | 2021-11-08 10:37 | NUR ---
PATIENT ON C/A 28% WITH TRACH INTACT. PATIENT REMAIN STABLE W/O ANY DISTRESS NOTED. Addendum: 11/08/21 at 1037 by MIGUEL FALLON RT Amended: Links added.
[2021-11-08] MEDS: INSULIN ASPART/LISPRO 100 UNIT/ML CARTRIDGE SQ PRN ×2 (12:26→17:58)
[2021-11-08 19:41] VITALS: BP 116/62
[2021-11-08] MEDS: ATORVASTATIN 10 MG TABLET GT SCH (21:34)
[2021-11-08] MEDS: POLYETHYLENE GLYCOL 3350 17 GM POWD.PACK GT SCH (21:34)
[2021-11-08] MEDS: ENOXAPARIN SODIUM 40 MG/0.4 ML DISP.SYRIN SQ SCH (21:35)
--- NOTE | 2021-11-08 21:45 | NUR ---
RT Patient was received on 28% cool aerosol, trach tube midline and secured. No respiratory distress noted this time , will continue to monitor throughout the shift. Addendum: 11/08/21 at 2145 by SHYANN BARRETT RT Amended: Links added.
[2021-11-08] MEDS: INSULIN GLARGINE,BASAGLAR 100 UNIT/ML INSULN.PEN SQ SCH (22:37)
[2021-11-09] MEDS: GLUCERNA 1.2 1,000 ML BOTTLE GT PRN (00:20)
[2021-11-09] MEDS: POLYVINYL ALCOHOL 15 ML BOTTLE EACHEYE SCH ×4 (00:20→17:34)
[2021-11-09] MEDS: BLOOD SUGAR DIAGNOSTIC 1 EACH STRIP IN SCH ×4 (00:20→17:34)
[2021-11-09 00:45] VITALS: BP 100/62
[2021-11-09] MEDS: IPRATROPIUM NEB FS 0.5 MG/2.5 ML AMPUL.NEB NEB SCH ×4 (01:31→20:00)
[2021-11-09] MEDS: ALBUTEROL FS 2.5 MG/3 ML VIAL.NEB NEB SCH ×4 (01:31→20:00)
[2021-11-09] MEDS: OMEPRAZOLE 20 MG CAPSULE.DR GT SCH (06:29)
[2021-11-09 07:07] VITALS: BP 122/65
[2021-11-09] MEDS: LEVETIRACETAM SOL (5 ML) 100 MG/ML UDC GT SCH ×2 (08:59→21:38)
[2021-11-09] MEDS: DOCUSATE SODIUM LIQ 100 MG/10 ML UDC GT SCH ×2 (08:59→17:33)
[2021-11-09] MEDS: MULTIVIT W/MINERALS 1 TAB TABLET GT SCH (08:59)
[2021-11-09] MEDS: ASCORBIC ACID 500 MG TABLET GT SCH (08:59)
[2021-11-09] MEDS: LISINOPRIL (5MG) 5 MG TABLET GT SCH (08:59)
[2021-11-09] MEDS: FERROUS SULFATE - FOR SA ONLY 330 MG/7.5 ML UDC GT SCH (08:59)
[2021-11-09] MEDS: DILTIAZEM HCL 30 MG TABLET GT SCH ×2 (08:59→21:38)
[2021-11-09] MEDS: ZINC SULFATE 220 MG CAPSULE GT SCH (08:59)
[2021-11-09] MEDS: SITAGLIPTIN PHOSPHATE 50 MG TABLET GT SCH (08:59)
[2021-11-09] MEDS: ACIDOPHILUS/BULGARICUS 1 EACH TAB.CHEW GT SCH ×2 (08:59→17:33)
[2021-11-09] MEDS: VITAMINS A AND D 56.7 GM TUBE TP SCH ×4 (09:00→21:38)
[2021-11-09] MEDS: Z GUARD REMEDY 4 OZ OINT TP SCH ×2 (09:00→21:38)
[2021-11-09] MEDS: HYDROGEN PEROXIDE 480 ML BOTTLE TP SCH ×2 (09:10→21:15)
[2021-11-09 12:20] VITALS: BP 127/74
[2021-11-09] MEDS: INSULIN ASPART/LISPRO 100 UNIT/ML CARTRIDGE SQ PRN ×2 (12:27→17:35)
[2021-11-09 20:44] VITALS: BP 132/79
[2021-11-09] MEDS: POLYETHYLENE GLYCOL 3350 17 GM POWD.PACK GT SCH (21:38)
[2021-11-09] MEDS: ATORVASTATIN 10 MG TABLET GT SCH (21:38)
[2021-11-09] MEDS: ENOXAPARIN SODIUM 40 MG/0.4 ML DISP.SYRIN SQ SCH (21:39)
[2021-11-09] MEDS: INSULIN GLARGINE,BASAGLAR 100 UNIT/ML INSULN.PEN SQ SCH (22:09)
[2021-11-10] MEDS: POLYVINYL ALCOHOL 15 ML BOTTLE EACHEYE SCH ×5 (00:58→23:23)
[2021-11-10] MEDS: BLOOD SUGAR DIAGNOSTIC 1 EACH STRIP IN SCH ×4 (00:58→18:03)
[2021-11-10] MEDS: GLUCERNA 1.2 1,000 ML BOTTLE GT PRN (01:17)
[2021-11-10] MEDS: ALBUTEROL FS 2.5 MG/3 ML VIAL.NEB NEB SCH ×4 (01:39→20:12)
[2021-11-10] MEDS: IPRATROPIUM NEB FS 0.5 MG/2.5 ML AMPUL.NEB NEB SCH ×4 (01:39→20:12)
[2021-11-10] MEDS: OMEPRAZOLE 20 MG CAPSULE.DR GT SCH (05:36)
--- NOTE | 2021-11-10 06:15 | NUR ---
RT Patient was stable on 28% cool aerosol throughout the shift, no respiratory distress noted. Trach tube midline and secured, will continue to monitor. Addendum: 11/10/21 at 0615 by SHYANN BARRETT RT Amended: Links added.
[2021-11-10 07:25] VITALS: BP 112/55
[2021-11-10] MEDS: DOCUSATE SODIUM LIQ 100 MG/10 ML UDC GT SCH ×2 (09:00→17:38)
[2021-11-10] MEDS: LEVETIRACETAM SOL (5 ML) 100 MG/ML UDC GT SCH ×2 (09:00→21:04)
[2021-11-10] MEDS: ACIDOPHILUS/BULGARICUS 1 EACH TAB.CHEW GT SCH ×2 (09:00→17:39)
[2021-11-10] MEDS: LISINOPRIL (5MG) 5 MG TABLET GT SCH (09:00)
[2021-11-10] MEDS: SITAGLIPTIN PHOSPHATE 50 MG TABLET GT SCH (09:00)
[2021-11-10] MEDS: FERROUS SULFATE - FOR SA ONLY 330 MG/7.5 ML UDC GT SCH (09:00)
[2021-11-10] MEDS: MULTIVIT W/MINERALS 1 TAB TABLET GT SCH (09:00)
[2021-11-10] MEDS: ASCORBIC ACID 500 MG TABLET GT SCH (09:00)
[2021-11-10] MEDS: ZINC SULFATE 220 MG CAPSULE GT SCH (09:00)
[2021-11-10] MEDS: Z GUARD REMEDY 4 OZ OINT TP SCH ×2 (09:00→21:04)
[2021-11-10] MEDS: VITAMINS A AND D 56.7 GM TUBE TP SCH ×4 (09:00→21:04)
[2021-11-10] MEDS: DILTIAZEM HCL 30 MG TABLET GT SCH ×2 (09:00→21:04)
[2021-11-10] MEDS: HYDROGEN PEROXIDE 480 ML BOTTLE TP SCH ×2 (09:11→20:12)
[2021-11-10 12:04] VITALS: BP 124/68
[2021-11-10] MEDS: INSULIN ASPART/LISPRO 100 UNIT/ML CARTRIDGE SQ PRN ×2 (12:43→18:04)
[2021-11-10 19:35] VITALS: BP 116/66
--- NOTE | 2021-11-10 20:12 | NUR ---
RCVD PT TRACHED ON CA 28%,5L. Q6 BREATHING TX GIVEN PER MD'S ORDER. , NO ADVERSE REACTION NOTED. SUCTIONED W/ SMALL AMOUNT OF YELLOW THICK SECRETIONS. NO RESPIRATORY DISTRESS OR SOB NOTED AT THIS TIME. PT IS STABLE WILL CONTINUE TO MONITOR T/O SHIFT.
[2021-11-10] MEDS: POLYETHYLENE GLYCOL 3350 17 GM POWD.PACK GT SCH (21:04)
[2021-11-10] MEDS: ATORVASTATIN 10 MG TABLET GT SCH (21:04)
[2021-11-10] MEDS: ENOXAPARIN SODIUM 40 MG/0.4 ML DISP.SYRIN SQ SCH (21:05)
[2021-11-10] MEDS: INSULIN GLARGINE,BASAGLAR 100 UNIT/ML INSULN.PEN SQ SCH (21:40)
[2021-11-11] MEDS: INSULIN ASPART/LISPRO 100 UNIT/ML CARTRIDGE SQ PRN ×4 (00:08→17:20)
[2021-11-11] MEDS: BLOOD SUGAR DIAGNOSTIC 1 EACH STRIP IN SCH ×4 (00:08→17:19)
[2021-11-11 00:52] VITALS: BP 97/53
[2021-11-11] MEDS: ALBUTEROL FS 2.5 MG/3 ML VIAL.NEB NEB SCH ×4 (02:03→19:30)
[2021-11-11] MEDS: IPRATROPIUM NEB FS 0.5 MG/2.5 ML AMPUL.NEB NEB SCH ×4 (02:03→19:30)
[2021-11-11] MEDS: GLUCERNA 1.2 1,000 ML BOTTLE GT PRN (05:34)
[2021-11-11] MEDS: OMEPRAZOLE 20 MG CAPSULE.DR GT SCH (05:34)
[2021-11-11] MEDS: POLYVINYL ALCOHOL 15 ML BOTTLE EACHEYE SCH ×3 (05:34→17:19)
[2021-11-11 07:26] VITALS: BP 144/81
[2021-11-11] MEDS: DILTIAZEM HCL 30 MG TABLET GT SCH ×2 (08:07→21:13)
[2021-11-11] MEDS: DOCUSATE SODIUM LIQ 100 MG/10 ML UDC GT SCH ×2 (08:07→16:07)
[2021-11-11] MEDS: FERROUS SULFATE - FOR SA ONLY 330 MG/7.5 ML UDC GT SCH (08:07)
[2021-11-11] MEDS: SITAGLIPTIN PHOSPHATE 50 MG TABLET GT SCH (08:08)
[2021-11-11] MEDS: LEVETIRACETAM SOL (5 ML) 100 MG/ML UDC GT SCH ×2 (08:09→21:13)
[2021-11-11] MEDS: ACIDOPHILUS/BULGARICUS 1 EACH TAB.CHEW GT SCH ×2 (08:09→16:07)
[2021-11-11] MEDS: MULTIVIT W/MINERALS 1 TAB TABLET GT SCH (08:09)
[2021-11-11] MEDS: ASCORBIC ACID 500 MG TABLET GT SCH (08:09)
[2021-11-11] MEDS: LISINOPRIL (5MG) 5 MG TABLET GT SCH (08:09)
[2021-11-11] MEDS: ZINC SULFATE 220 MG CAPSULE GT SCH (08:09)
[2021-11-11] MEDS: HYDROGEN PEROXIDE 480 ML BOTTLE TP SCH ×2 (08:49→20:30)
--- NOTE | 2021-11-11 09:01 | NUR ---
PATIENT ON C/A 28% WITH TRACH INTACT NO DISTRESS NOTED. Addendum: 11/11/21 at 0902 by MIGUEL FALLON RT Amended: Links added.
[2021-11-11] MEDS: VITAMINS A AND D 56.7 GM TUBE TP SCH ×4 (09:28→21:14)
[2021-11-11 13:11] VITALS: BP 128/66
[2021-11-11 19:44] VITALS: BP 120/76
[2021-11-11] MEDS: INSULIN GLARGINE,BASAGLAR 100 UNIT/ML INSULN.PEN SQ SCH (21:14)
[2021-11-11] MEDS: ATORVASTATIN 10 MG TABLET GT SCH (21:14)
[2021-11-11] MEDS: POLYETHYLENE GLYCOL 3350 17 GM POWD.PACK GT SCH (21:14)
[2021-11-11] MEDS: ENOXAPARIN SODIUM 40 MG/0.4 ML DISP.SYRIN SQ SCH (21:15)
[2021-11-11 23:58] VITALS: BP 94/57
[2021-11-12] MEDS: BLOOD SUGAR DIAGNOSTIC 1 EACH STRIP IN SCH ×4 (00:30→17:34)
[2021-11-12] MEDS: POLYVINYL ALCOHOL 15 ML BOTTLE EACHEYE SCH ×4 (00:30→17:26)
[2021-11-12] MEDS: INSULIN ASPART/LISPRO 100 UNIT/ML CARTRIDGE SQ PRN ×4 (00:31→17:34)
[2021-11-12] MEDS: ALBUTEROL FS 2.5 MG/3 ML VIAL.NEB NEB SCH ×4 (01:55→19:55)
[2021-11-12] MEDS: IPRATROPIUM NEB FS 0.5 MG/2.5 ML AMPUL.NEB NEB SCH ×4 (01:55→19:55)
[2021-11-12] MEDS: GLUCERNA 1.2 1,000 ML BOTTLE GT PRN ×2 (03:20→18:46)
[2021-11-12] MEDS: OMEPRAZOLE 20 MG CAPSULE.DR GT SCH (05:39)
[2021-11-12 07:20] VITALS: BP 104/55
[2021-11-12] MEDS: LEVETIRACETAM SOL (5 ML) 100 MG/ML UDC GT SCH ×2 (08:27→21:32)
[2021-11-12] MEDS: ASCORBIC ACID 500 MG TABLET GT SCH (08:27)
[2021-11-12] MEDS: DOCUSATE SODIUM LIQ 100 MG/10 ML UDC GT SCH ×2 (08:27→17:26)
[2021-11-12] MEDS: DILTIAZEM HCL 30 MG TABLET GT SCH ×2 (08:27→21:32)
[2021-11-12] MEDS: ACIDOPHILUS/BULGARICUS 1 EACH TAB.CHEW GT SCH ×2 (08:27→17:26)
[2021-11-12] MEDS: ZINC SULFATE 220 MG CAPSULE GT SCH (08:27)
[2021-11-12] MEDS: MULTIVIT W/MINERALS 1 TAB TABLET GT SCH (08:27)
[2021-11-12] MEDS: LISINOPRIL (5MG) 5 MG TABLET GT SCH (08:27)
[2021-11-12] MEDS: FERROUS SULFATE - FOR SA ONLY 330 MG/7.5 ML UDC GT SCH (08:27)
[2021-11-12] MEDS: SITAGLIPTIN PHOSPHATE 50 MG TABLET GT SCH (08:27)
[2021-11-12] MEDS: VITAMINS A AND D 56.7 GM TUBE TP SCH ×4 (08:27→21:32)
[2021-11-12] MEDS: HYDROGEN PEROXIDE 480 ML BOTTLE TP SCH ×2 (08:31→19:55)
--- NOTE | 2021-11-12 16:07 | NUR ---
Facility Update: [facility]ACIO emailed the patient's daughterKelly to inform family that : "Please note that no Sub-Acute employee has tested positive for COVID-19 this week. [facility] continues following [facility] infection control guidelines. [facility] will continue response testing and screening for symptoms. Staff and patients will continue routine testing. All visitation Guidelines remain the same". ORACIO attached current visitation guidelines on email.
[2021-11-12 19:42] VITALS: BP 142/78
[2021-11-12] MEDS: POLYETHYLENE GLYCOL 3350 17 GM POWD.PACK GT SCH (21:32)
[2021-11-12] MEDS: ATORVASTATIN 10 MG TABLET GT SCH (21:32)
[2021-11-12] MEDS: ENOXAPARIN SODIUM 40 MG/0.4 ML DISP.SYRIN SQ SCH (21:33)
[2021-11-12] MEDS: INSULIN GLARGINE,BASAGLAR 100 UNIT/ML INSULN.PEN SQ SCH (21:33)
[2021-11-13] MEDS: POLYVINYL ALCOHOL 15 ML BOTTLE EACHEYE SCH ×4 (00:04→17:15)
[2021-11-13] MEDS: BLOOD SUGAR DIAGNOSTIC 1 EACH STRIP IN SCH ×4 (00:04→17:36)
[2021-11-13] MEDS: INSULIN ASPART/LISPRO 100 UNIT/ML CARTRIDGE SQ PRN ×4 (00:07→17:36)
[2021-11-13 00:09] VITALS: BP 91/67
[2021-11-13] MEDS: IPRATROPIUM NEB FS 0.5 MG/2.5 ML AMPUL.NEB NEB SCH ×4 (01:18→20:13)
[2021-11-13] MEDS: ALBUTEROL FS 2.5 MG/3 ML VIAL.NEB NEB SCH ×4 (01:18→20:13)
[2021-11-13] MEDS: OMEPRAZOLE 20 MG CAPSULE.DR GT SCH (05:30)
--- NOTE | 2021-11-13 05:56 | NUR ---
PATIENT RECEIVED ON 28% AEROSOL T-TUBE, TOLERATING WITH NO DISTRESS/SOB NOTED. SUCTIONED FOR MINIMAL, THIN, WHITE SECRETIONS. GIVEN IN-LINE TREATMENTS WITH NO ADVERSE REACTIONS. AMBU BAG AT BEDSIDE. TRACH CARE DONE. Addendum: 11/13/21 at 0557 by KAISER LAW RT Amended: Links added.
[2021-11-13 07:16] VITALS: BP 144/91
[2021-11-13] MEDS: HYDROGEN PEROXIDE 480 ML BOTTLE TP SCH ×2 (08:18→20:13)
[2021-11-13] MEDS: DOCUSATE SODIUM LIQ 100 MG/10 ML UDC GT SCH ×2 (09:47→17:15)
[2021-11-13] MEDS: VITAMINS A AND D 56.7 GM TUBE TP SCH ×4 (09:47→21:09)
[2021-11-13] MEDS: LISINOPRIL (5MG) 5 MG TABLET GT SCH (09:47)
[2021-11-13] MEDS: DILTIAZEM HCL 30 MG TABLET GT SCH ×2 (09:47→21:09)
[2021-11-13] MEDS: MULTIVIT W/MINERALS 1 TAB TABLET GT SCH (09:47)
[2021-11-13] MEDS: SITAGLIPTIN PHOSPHATE 50 MG TABLET GT SCH (09:47)
[2021-11-13] MEDS: ASCORBIC ACID 500 MG TABLET GT SCH (09:47)
[2021-11-13] MEDS: FERROUS SULFATE - FOR SA ONLY 330 MG/7.5 ML UDC GT SCH (09:47)
[2021-11-13] MEDS: ZINC SULFATE 220 MG CAPSULE GT SCH (09:47)
[2021-11-13] MEDS: LEVETIRACETAM SOL (5 ML) 100 MG/ML UDC GT SCH ×2 (09:47→21:09)
[2021-11-13] MEDS: ACIDOPHILUS/BULGARICUS 1 EACH TAB.CHEW GT SCH ×2 (09:47→17:15)
[2021-11-13 12:39] VITALS: BP 108/64
[2021-11-13] MEDS: GLUCERNA 1.2 1,000 ML BOTTLE GT PRN (14:47)
[2021-11-13 20:24] VITALS: BP 122/58
[2021-11-13] MEDS: POLYETHYLENE GLYCOL 3350 17 GM POWD.PACK GT SCH (21:09)
[2021-11-13] MEDS: ATORVASTATIN 10 MG TABLET GT SCH (21:09)
[2021-11-13] MEDS: ENOXAPARIN SODIUM 40 MG/0.4 ML DISP.SYRIN SQ SCH (21:09)
[2021-11-13] MEDS: INSULIN GLARGINE,BASAGLAR 100 UNIT/ML INSULN.PEN SQ SCH (21:13)
[2021-11-14 00:04] VITALS: BP 113/69
[2021-11-14] MEDS: BLOOD SUGAR DIAGNOSTIC 1 EACH STRIP IN SCH ×4 (00:25→17:40)
[2021-11-14] MEDS: POLYVINYL ALCOHOL 15 ML BOTTLE EACHEYE SCH ×4 (00:25→17:07)
[2021-11-14] MEDS: INSULIN ASPART/LISPRO 100 UNIT/ML CARTRIDGE SQ PRN ×4 (00:26→17:40)
[2021-11-14] MEDS: ALBUTEROL FS 2.5 MG/3 ML VIAL.NEB NEB SCH ×4 (01:59→18:44)
[2021-11-14] MEDS: IPRATROPIUM NEB FS 0.5 MG/2.5 ML AMPUL.NEB NEB SCH ×4 (01:59→18:44)
[2021-11-14] MEDS: OMEPRAZOLE 20 MG CAPSULE.DR GT SCH (05:25)
[2021-11-14 07:13] VITALS: BP 110/61
[2021-11-14] MEDS: LISINOPRIL (5MG) 5 MG TABLET GT SCH (09:00)
[2021-11-14] MEDS: LEVETIRACETAM SOL (5 ML) 100 MG/ML UDC GT SCH ×2 (09:00→20:14)
[2021-11-14] MEDS: ZINC SULFATE 220 MG CAPSULE GT SCH (09:00)
[2021-11-14] MEDS: DOCUSATE SODIUM LIQ 100 MG/10 ML UDC GT SCH ×2 (09:00→17:06)
[2021-11-14] MEDS: MULTIVIT W/MINERALS 1 TAB TABLET GT SCH (09:00)
[2021-11-14] MEDS: ACIDOPHILUS/BULGARICUS 1 EACH TAB.CHEW GT SCH ×2 (09:00→17:06)
[2021-11-14] MEDS: ASCORBIC ACID 500 MG TABLET GT SCH (09:00)
[2021-11-14] MEDS: SITAGLIPTIN PHOSPHATE 50 MG TABLET GT SCH (09:00)
[2021-11-14] MEDS: FERROUS SULFATE - FOR SA ONLY 330 MG/7.5 ML UDC GT SCH (09:00)
[2021-11-14] MEDS: VITAMINS A AND D 56.7 GM TUBE TP SCH ×4 (09:00→20:14)
[2021-11-14] MEDS: HYDROGEN PEROXIDE 480 ML BOTTLE TP SCH ×2 (09:12→20:03)
--- NOTE | 2021-11-14 09:49 | NUR ---
RT Pt. received on 28% cool aerosol , trach tube patent, midline and secured. Ambu bag and back up trach is at the bed side. No respiratory distress and SOB noted. Will keep monitor the pt
[2021-11-14] MEDS: DILTIAZEM HCL 30 MG TABLET GT SCH ×2 (10:00→20:13)
[2021-11-14 12:57] VITALS: BP 124/69
[2021-11-14] MEDS: GLUCERNA 1.2 1,000 ML BOTTLE GT PRN (16:04)
[2021-11-14 19:56] VITALS: BP 99/61
[2021-11-14] MEDS: POLYETHYLENE GLYCOL 3350 17 GM POWD.PACK GT SCH (21:07)
[2021-11-14] MEDS: ATORVASTATIN 10 MG TABLET GT SCH (21:07)
[2021-11-14] MEDS: INSULIN GLARGINE,BASAGLAR 100 UNIT/ML INSULN.PEN SQ SCH (21:11)
[2021-11-14] MEDS: ENOXAPARIN SODIUM 40 MG/0.4 ML DISP.SYRIN SQ SCH (21:11)
[2021-11-15] MEDS: POLYVINYL ALCOHOL 15 ML BOTTLE EACHEYE SCH ×4 (00:41→17:35)
[2021-11-15] MEDS: BLOOD SUGAR DIAGNOSTIC 1 EACH STRIP IN SCH ×4 (00:41→17:35)
[2021-11-15] MEDS: INSULIN ASPART/LISPRO 100 UNIT/ML CARTRIDGE SQ PRN ×4 (00:42→17:35)
[2021-11-15] MEDS: IPRATROPIUM NEB FS 0.5 MG/2.5 ML AMPUL.NEB NEB SCH ×4 (01:07→20:35)
[2021-11-15] MEDS: ALBUTEROL FS 2.5 MG/3 ML VIAL.NEB NEB SCH ×4 (01:07→20:35)
[2021-11-15] MEDS: OMEPRAZOLE 20 MG CAPSULE.DR GT SCH (05:06)
[2021-11-15 08:00] VITALS: BP 112/67
[2021-11-15] MEDS: HYDROGEN PEROXIDE 480 ML BOTTLE TP SCH ×2 (09:03→20:36)
[2021-11-15] MEDS: LEVETIRACETAM SOL (5 ML) 100 MG/ML UDC GT SCH ×2 (09:15→20:06)
[2021-11-15] MEDS: FERROUS SULFATE - FOR SA ONLY 330 MG/7.5 ML UDC GT SCH (09:15)
[2021-11-15] MEDS: SITAGLIPTIN PHOSPHATE 50 MG TABLET GT SCH (09:15)
[2021-11-15] MEDS: DILTIAZEM HCL 30 MG TABLET GT SCH ×2 (09:15→20:05)
[2021-11-15] MEDS: DOCUSATE SODIUM LIQ 100 MG/10 ML UDC GT SCH ×2 (09:15→16:28)
[2021-11-15] MEDS: ACIDOPHILUS/BULGARICUS 1 EACH TAB.CHEW GT SCH ×2 (09:15→16:28)
[2021-11-15] MEDS: ZINC SULFATE 220 MG CAPSULE GT SCH (09:16)
[2021-11-15] MEDS: VITAMINS A AND D 56.7 GM TUBE TP SCH ×4 (09:16→20:06)
[2021-11-15] MEDS: MULTIVIT W/MINERALS 1 TAB TABLET GT SCH (09:16)
[2021-11-15] MEDS: ASCORBIC ACID 500 MG TABLET GT SCH (09:16)
[2021-11-15] MEDS: LISINOPRIL (5MG) 5 MG TABLET GT SCH (09:16)
[2021-11-15 12:00] VITALS: BP 127/73
--- NOTE | 2021-11-15 13:55 | NUR ---
Family Invite to IDT: SW emailed the patient's daughter, Kelly to invite them to participate in 11/19/21 12:30p IDT meeting via phone conference. ORACIO will follow up accordingly.
[2021-11-15] MEDS: GLUCERNA 1.2 1,000 ML BOTTLE GT PRN (16:26)
[2021-11-15 19:30] VITALS: BP 123/71
[2021-11-15] MEDS: ATORVASTATIN 10 MG TABLET GT SCH (21:14)
[2021-11-15] MEDS: POLYETHYLENE GLYCOL 3350 17 GM POWD.PACK GT SCH (21:14)
[2021-11-15] MEDS: INSULIN GLARGINE,BASAGLAR 100 UNIT/ML INSULN.PEN SQ SCH (21:15)
[2021-11-15] MEDS: ENOXAPARIN SODIUM 40 MG/0.4 ML DISP.SYRIN SQ SCH (21:16)
[2021-11-16] MEDS: POLYVINYL ALCOHOL 15 ML BOTTLE EACHEYE SCH ×4 (00:11→17:25)
[2021-11-16] MEDS: BLOOD SUGAR DIAGNOSTIC 1 EACH STRIP IN SCH ×4 (00:11→17:25)
[2021-11-16] MEDS: INSULIN ASPART/LISPRO 100 UNIT/ML CARTRIDGE SQ PRN ×4 (00:12→17:35)
[2021-11-16] MEDS: ALBUTEROL FS 2.5 MG/3 ML VIAL.NEB NEB SCH ×4 (02:34→20:15)
[2021-11-16] MEDS: IPRATROPIUM NEB FS 0.5 MG/2.5 ML AMPUL.NEB NEB SCH ×4 (02:34→20:15)
[2021-11-16] MEDS: OMEPRAZOLE 20 MG CAPSULE.DR GT SCH (05:06)
[2021-11-16 07:22] VITALS: BP 126/61
[2021-11-16] MEDS: DILTIAZEM HCL 30 MG TABLET GT SCH ×2 (08:28→20:08)
[2021-11-16] MEDS: SITAGLIPTIN PHOSPHATE 50 MG TABLET GT SCH (08:28)
[2021-11-16] MEDS: LISINOPRIL (5MG) 5 MG TABLET GT SCH (08:28)
[2021-11-16] MEDS: DOCUSATE SODIUM LIQ 100 MG/10 ML UDC GT SCH ×2 (08:28→17:18)
[2021-11-16] MEDS: FERROUS SULFATE - FOR SA ONLY 330 MG/7.5 ML UDC GT SCH (08:28)
[2021-11-16] MEDS: ASCORBIC ACID 500 MG TABLET GT SCH (08:28)
[2021-11-16] MEDS: MULTIVIT W/MINERALS 1 TAB TABLET GT SCH (08:28)
[2021-11-16] MEDS: ACIDOPHILUS/BULGARICUS 1 EACH TAB.CHEW GT SCH ×2 (08:28→17:18)
[2021-11-16] MEDS: LEVETIRACETAM SOL (5 ML) 100 MG/ML UDC GT SCH ×2 (08:28→20:09)
[2021-11-16] MEDS: VITAMINS A AND D 56.7 GM TUBE TP SCH ×4 (08:29→20:10)
[2021-11-16] MEDS: ZINC SULFATE 220 MG CAPSULE GT SCH (08:29)
[2021-11-16] MEDS: HYDROGEN PEROXIDE 480 ML BOTTLE TP SCH ×2 (09:16→20:15)
--- NOTE | 2021-11-16 10:21 | NUR ---
PT WAS RECEIVED ON T-PIECE COOL AEROSOL 28 % FIO2 (5 LPM). TRACH IS PATENT, MIDLINE AND SECURED. TX TOLERATED WELL WITH NO ADVERSE AFFECTS. SUCTION X2 PLUS PRN. BACK UP TRACH AND AMBU BAG IS AT THE BED SIDE. NO SOB OR RESPIRATORY DISTRESS NOTED. WILL KEEP MONITOR THE PT.
[2021-11-16] MEDS: GLUCERNA 1.2 1,000 ML BOTTLE GT PRN (11:52)
[2021-11-16 12:45] VITALS: BP 117/40
[2021-11-16 19:06] VITALS: BP 106/71
[2021-11-16] MEDS: ATORVASTATIN 10 MG TABLET GT SCH (21:14)
[2021-11-16] MEDS: POLYETHYLENE GLYCOL 3350 17 GM POWD.PACK GT SCH (21:14)
[2021-11-16] MEDS: INSULIN GLARGINE,BASAGLAR 100 UNIT/ML INSULN.PEN SQ SCH (21:15)
[2021-11-16] MEDS: ENOXAPARIN SODIUM 40 MG/0.4 ML DISP.SYRIN SQ SCH (21:15)
[2021-11-17] MEDS: BLOOD SUGAR DIAGNOSTIC 1 EACH STRIP IN SCH ×4 (00:15→17:45)
[2021-11-17] MEDS: POLYVINYL ALCOHOL 15 ML BOTTLE EACHEYE SCH ×4 (00:15→17:45)
[2021-11-17] MEDS: INSULIN ASPART/LISPRO 100 UNIT/ML CARTRIDGE SQ PRN ×2 (00:16→05:12)
[2021-11-17] MEDS: IPRATROPIUM NEB FS 0.5 MG/2.5 ML AMPUL.NEB NEB SCH ×4 (02:11→19:49)
[2021-11-17] MEDS: ALBUTEROL FS 2.5 MG/3 ML VIAL.NEB NEB SCH ×4 (02:11→19:49)
[2021-11-17] MEDS: OMEPRAZOLE 20 MG CAPSULE.DR GT SCH (05:12)
[2021-11-17] MEDS: GLUCERNA 1.2 1,000 ML BOTTLE GT PRN (05:16)
[2021-11-17 08:00] VITALS: BP 127/78
[2021-11-17] MEDS: DILTIAZEM HCL 30 MG TABLET GT SCH ×2 (08:28→21:48)
[2021-11-17] MEDS: FERROUS SULFATE - FOR SA ONLY 330 MG/7.5 ML UDC GT SCH (08:29)
[2021-11-17] MEDS: DOCUSATE SODIUM LIQ 100 MG/10 ML UDC GT SCH ×2 (08:29→15:54)
[2021-11-17] MEDS: SITAGLIPTIN PHOSPHATE 50 MG TABLET GT SCH (08:29)
[2021-11-17] MEDS: LEVETIRACETAM SOL (5 ML) 100 MG/ML UDC GT SCH ×2 (08:31→21:48)
[2021-11-17] MEDS: LISINOPRIL (5MG) 5 MG TABLET GT SCH (08:31)
[2021-11-17] MEDS: ACIDOPHILUS/BULGARICUS 1 EACH TAB.CHEW GT SCH ×2 (08:31→15:54)
[2021-11-17] MEDS: VITAMINS A AND D 56.7 GM TUBE TP SCH ×4 (08:32→21:48)
[2021-11-17] MEDS: ASCORBIC ACID 500 MG TABLET GT SCH (08:32)
[2021-11-17] MEDS: MULTIVIT W/MINERALS 1 TAB TABLET GT SCH (08:32)
[2021-11-17] MEDS: ZINC SULFATE 220 MG CAPSULE GT SCH (08:32)
[2021-11-17] MEDS: HYDROGEN PEROXIDE 480 ML BOTTLE TP SCH ×2 (08:44→20:27)
[2021-11-17 10:00] VITALS: BP 127/78
--- NOTE | 2021-11-17 15:41 | NUR ---
MDS: SW completed the SS portion of the first quarter MDS. The patients daughter, Kelly Wong [phone] is the patients conservator and is involved in the care plan. The patient is non-communicative, DNR, Non-Vent with trach and g-tube feeding (see other disciplines notes for further details). The patients last dental exam with Dr. Oliveira was on 04/02/2021. The patients last optometry exam by Dr. Saldana was on 02/22/2021. The patients last podiatry consultation with Dr. Cevallos was on 11/11/2021.
[2021-11-17 19:29] VITALS: BP 124/70
[2021-11-17] MEDS: POLYETHYLENE GLYCOL 3350 17 GM POWD.PACK GT SCH (21:48)
[2021-11-17] MEDS: ATORVASTATIN 10 MG TABLET GT SCH (21:48)
[2021-11-17] MEDS: ENOXAPARIN SODIUM 40 MG/0.4 ML DISP.SYRIN SQ SCH (21:49)
[2021-11-17] MEDS: INSULIN GLARGINE,BASAGLAR 100 UNIT/ML INSULN.PEN SQ SCH (21:53)
[2021-11-18] MEDS: INSULIN ASPART/LISPRO 100 UNIT/ML CARTRIDGE SQ PRN ×4 (00:53→17:17)
[2021-11-18] MEDS: POLYVINYL ALCOHOL 15 ML BOTTLE EACHEYE SCH ×4 (00:53→17:14)
[2021-11-18] MEDS: BLOOD SUGAR DIAGNOSTIC 1 EACH STRIP IN SCH ×4 (00:53→17:14)
[2021-11-18] MEDS: ALBUTEROL FS 2.5 MG/3 ML VIAL.NEB NEB SCH ×4 (01:57→20:05)
[2021-11-18] MEDS: IPRATROPIUM NEB FS 0.5 MG/2.5 ML AMPUL.NEB NEB SCH ×4 (01:57→20:05)
--- NOTE | 2021-11-18 04:36 | NUR ---
RT pt received on CA 28%. trached. small thick secretions suctioned from trach. no sob, no resp distress. shift uneventful.
[2021-11-18] MEDS: OMEPRAZOLE 20 MG CAPSULE.DR GT SCH (05:25)
[2021-11-18] MEDS: GLUCERNA 1.2 1,000 ML BOTTLE GT PRN (05:56)
[2021-11-18 07:40] VITALS: BP 119/57
[2021-11-18] MEDS: HYDROGEN PEROXIDE 480 ML BOTTLE TP SCH ×2 (07:58→20:43)
--- NOTE | 2021-11-18 08:01 | NUR ---
PATIENT FOUND WITH C/A ON 28% STABLE W/O DISTRESS. TRACH INTACT WO/ REDNESS. Addendum: 11/18/21 at 0803 by MIGUEL FALLON RT Amended: Links added.
[2021-11-18] MEDS: DILTIAZEM HCL 30 MG TABLET GT SCH ×2 (08:24→21:00)
[2021-11-18] MEDS: DOCUSATE SODIUM LIQ 100 MG/10 ML UDC GT SCH ×2 (08:24→16:19)
[2021-11-18] MEDS: FERROUS SULFATE - FOR SA ONLY 330 MG/7.5 ML UDC GT SCH (08:25)
[2021-11-18] MEDS: SITAGLIPTIN PHOSPHATE 50 MG TABLET GT SCH (08:26)
[2021-11-18] MEDS: LEVETIRACETAM SOL (5 ML) 100 MG/ML UDC GT SCH ×2 (08:26→21:49)
[2021-11-18] MEDS: ACIDOPHILUS/BULGARICUS 1 EACH TAB.CHEW GT SCH ×2 (08:26→16:19)
[2021-11-18] MEDS: ASCORBIC ACID 500 MG TABLET GT SCH (08:27)
[2021-11-18] MEDS: LISINOPRIL (5MG) 5 MG TABLET GT SCH (08:27)
[2021-11-18] MEDS: VITAMINS A AND D 56.7 GM TUBE TP SCH ×4 (08:27→21:49)
[2021-11-18] MEDS: MULTIVIT W/MINERALS 1 TAB TABLET GT SCH (08:27)
[2021-11-18] MEDS: ZINC SULFATE 220 MG CAPSULE GT SCH (08:27)
--- NOTE | 2021-11-18 11:17 | NUR ---
Facility Update: ORACIO emailed the patient's daughter, Kelly and notified them that, "A Sub-Acute employee has tested positive for COVID-19 yesterday and another employee tested positive today. [facility] continues following [facility] infection control guidelines. Staff and patients will continue response testing and being screened for symptoms." ORACIO also provided current visitation guidelines.
[2021-11-18 12:16] VITALS: BP 123/64
[2021-11-18 19:08] VITALS: BP 101/61
--- NOTE | 2021-11-18 20:10 | NUR ---
RT NOTE RECEIVED PT ON CA 28% 5LPM. NO RESP DISTRESS AT THIS TIME. SPO2 98%. TOLERATED BREATHING TX. SUCTIONED WITH MINIMAL THICK SECRETIONS. EMERGENCY TRACH AND AMBU BAG ARE BEDSIDE. Addendum: 11/18/21 at 2012 by Ankur Kang RT Amended: Links added.
[2021-11-18] MEDS: POLYETHYLENE GLYCOL 3350 17 GM POWD.PACK GT SCH (21:50)
[2021-11-18] MEDS: ATORVASTATIN 10 MG TABLET GT SCH (21:50)
[2021-11-18] MEDS: INSULIN GLARGINE,BASAGLAR 100 UNIT/ML INSULN.PEN SQ SCH (21:51)
[2021-11-18] MEDS: ENOXAPARIN SODIUM 40 MG/0.4 ML DISP.SYRIN SQ SCH (21:51)
[2021-11-18 23:34] VITALS: BP 114/70
[2021-11-19] MEDS: INSULIN ASPART/LISPRO 100 UNIT/ML CARTRIDGE SQ PRN ×4 (00:14→18:12)
[2021-11-19] MEDS: POLYVINYL ALCOHOL 15 ML BOTTLE EACHEYE SCH ×4 (00:14→18:11)
[2021-11-19] MEDS: BLOOD SUGAR DIAGNOSTIC 1 EACH STRIP IN SCH ×4 (00:14→18:11)
[2021-11-19] MEDS: IPRATROPIUM NEB FS 0.5 MG/2.5 ML AMPUL.NEB NEB SCH ×4 (01:49→19:50)
[2021-11-19] MEDS: ALBUTEROL FS 2.5 MG/3 ML VIAL.NEB NEB SCH ×4 (01:49→19:50)
[2021-11-19] MEDS: OMEPRAZOLE 20 MG CAPSULE.DR GT SCH (05:32)
[2021-11-19] MEDS: GLUCERNA 1.2 1,000 ML BOTTLE GT PRN (05:32)
[2021-11-19 08:00] VITALS: BP 120/72
[2021-11-19] MEDS: HYDROGEN PEROXIDE 480 ML BOTTLE TP SCH ×2 (09:04→21:14)
[2021-11-19] MEDS: ZINC SULFATE 220 MG CAPSULE GT SCH (09:59)
[2021-11-19] MEDS: MULTIVIT W/MINERALS 1 TAB TABLET GT SCH (09:59)
[2021-11-19] MEDS: ASCORBIC ACID 500 MG TABLET GT SCH (09:59)
[2021-11-19] MEDS: ACIDOPHILUS/BULGARICUS 1 EACH TAB.CHEW GT SCH ×2 (09:59→16:34)
[2021-11-19] MEDS: VITAMINS A AND D 56.7 GM TUBE TP SCH ×4 (09:59→21:28)
[2021-11-19] MEDS: DOCUSATE SODIUM LIQ 100 MG/10 ML UDC GT SCH ×2 (09:59→16:34)
[2021-11-19] MEDS: DILTIAZEM HCL 30 MG TABLET GT SCH ×2 (09:59→21:28)
[2021-11-19] MEDS: LEVETIRACETAM SOL (5 ML) 100 MG/ML UDC GT SCH ×2 (09:59→21:28)
[2021-11-19] MEDS: SITAGLIPTIN PHOSPHATE 50 MG TABLET GT SCH (09:59)
[2021-11-19] MEDS: LISINOPRIL (5MG) 5 MG TABLET GT SCH (09:59)
[2021-11-19] MEDS: FERROUS SULFATE - FOR SA ONLY 330 MG/7.5 ML UDC GT SCH (09:59)
--- NOTE | 2021-11-19 14:27 | NUR ---
INTERDISCIPLINARY PLAN OF CARE CONFERENCE took place today. The patients responsible alliance party, Kelly [phone] Capone and Interdisciplinary team discussed the plan of care in detail. Current orders as well as treatments and medications were reviewed. Per CRN, the pt. is stable.
[2021-11-19 19:21] VITALS: BP 120/68
--- NOTE | 2021-11-19 19:50 | NUR ---
Patient received on cool aerosol 5L 28%, awake and stable at this time. Trach secured and patent. Q6 breathing treatment given and tolerated well without adverse effect. Suction PRN. Spare trach and ambu bag at bedside. No respiratory distress noted. Will continue to monitor t/o shift.
[2021-11-19] MEDS: POLYETHYLENE GLYCOL 3350 17 GM POWD.PACK GT SCH (21:28)
[2021-11-19] MEDS: ATORVASTATIN 10 MG TABLET GT SCH (21:28)
[2021-11-19] MEDS: ENOXAPARIN SODIUM 40 MG/0.4 ML DISP.SYRIN SQ SCH (21:29)
[2021-11-19] MEDS: INSULIN GLARGINE,BASAGLAR 100 UNIT/ML INSULN.PEN SQ SCH (21:29)
[2021-11-20 00:09] VITALS: BP 105/71
[2021-11-20] MEDS: POLYVINYL ALCOHOL 15 ML BOTTLE EACHEYE SCH ×4 (00:37→17:07)
[2021-11-20] MEDS: INSULIN ASPART/LISPRO 100 UNIT/ML CARTRIDGE SQ PRN ×4 (00:37→17:07)
[2021-11-20] MEDS: BLOOD SUGAR DIAGNOSTIC 1 EACH STRIP IN SCH ×4 (00:37→17:07)
[2021-11-20] MEDS: ALBUTEROL FS 2.5 MG/3 ML VIAL.NEB NEB SCH ×4 (01:47→18:55)
[2021-11-20] MEDS: IPRATROPIUM NEB FS 0.5 MG/2.5 ML AMPUL.NEB NEB SCH ×4 (01:47→18:55)
[2021-11-20] MEDS: OMEPRAZOLE 20 MG CAPSULE.DR GT SCH (05:27)
[2021-11-20] MEDS: GLUCERNA 1.2 1,000 ML BOTTLE GT PRN ×2 (05:27→13:44)
[2021-11-20 07:22] VITALS: BP 109/66
[2021-11-20] MEDS: DILTIAZEM HCL 30 MG TABLET GT SCH ×2 (09:00→21:00)
[2021-11-20] MEDS: DOCUSATE SODIUM LIQ 100 MG/10 ML UDC GT SCH ×2 (09:07→17:07)
[2021-11-20] MEDS: SITAGLIPTIN PHOSPHATE 50 MG TABLET GT SCH (09:07)
[2021-11-20] MEDS: FERROUS SULFATE - FOR SA ONLY 330 MG/7.5 ML UDC GT SCH (09:07)
[2021-11-20] MEDS: LEVETIRACETAM SOL (5 ML) 100 MG/ML UDC GT SCH ×2 (09:07→21:02)
[2021-11-20] MEDS: ASCORBIC ACID 500 MG TABLET GT SCH (09:08)
[2021-11-20] MEDS: ACIDOPHILUS/BULGARICUS 1 EACH TAB.CHEW GT SCH ×2 (09:08→17:07)
[2021-11-20] MEDS: HYDROGEN PEROXIDE 480 ML BOTTLE TP SCH ×2 (09:08→20:08)
[2021-11-20] MEDS: ZINC SULFATE 220 MG CAPSULE GT SCH (09:08)
[2021-11-20] MEDS: VITAMINS A AND D 56.7 GM TUBE TP SCH ×4 (09:08→21:02)
[2021-11-20] MEDS: MULTIVIT W/MINERALS 1 TAB TABLET GT SCH (09:08)
[2021-11-20] MEDS: LISINOPRIL (5MG) 5 MG TABLET GT SCH (09:08)
--- NOTE | 2021-11-20 16:01 | NUR ---
Progress Note: Resident on Activity program was seen and activity was provided. Sensory stimulation. Radio music, Soft touch, Fresh scent, afternoon movies. Resident Lucy is able to open her eyes, unable to speak and express her needs. this activity program will continue as current.
--- NOTE | 2021-11-20 17:59 | NUR ---
RT NOTE PT TRACH WAS CHANGED. NO BLEEDING NOTED , NO REDNESS NOTED. PT. IS CURRENTLY STABLE CHARGE NURSE NOTIFIED OF TRACH CHANGE.
[2021-11-20 19:02] VITALS: BP 100/64
[2021-11-20] MEDS: ATORVASTATIN 10 MG TABLET GT SCH (21:02)
[2021-11-20] MEDS: POLYETHYLENE GLYCOL 3350 17 GM POWD.PACK GT SCH (21:02)
[2021-11-20] MEDS: ENOXAPARIN SODIUM 40 MG/0.4 ML DISP.SYRIN SQ SCH (21:03)
[2021-11-20] MEDS: INSULIN GLARGINE,BASAGLAR 100 UNIT/ML INSULN.PEN SQ SCH (21:06)
[2021-11-20 23:49] VITALS: BP 100/74
[2021-11-21] MEDS: POLYVINYL ALCOHOL 15 ML BOTTLE EACHEYE SCH ×5 (00:23→23:58)
[2021-11-21] MEDS: INSULIN ASPART/LISPRO 100 UNIT/ML CARTRIDGE SQ PRN ×5 (00:28→23:58)
[2021-11-21] MEDS: BLOOD SUGAR DIAGNOSTIC 1 EACH STRIP IN SCH ×5 (00:28→23:58)
[2021-11-21] MEDS: ALBUTEROL FS 2.5 MG/3 ML VIAL.NEB NEB SCH ×4 (00:32→19:56)
[2021-11-21] MEDS: IPRATROPIUM NEB FS 0.5 MG/2.5 ML AMPUL.NEB NEB SCH ×4 (00:32→19:56)
[2021-11-21] MEDS: OMEPRAZOLE 20 MG CAPSULE.DR GT SCH (05:34)
[2021-11-21 07:34] VITALS: BP 111/55
--- NOTE | 2021-11-21 08:18 | NUR ---
PT WAS RECEIVED ON T-PIECE COOL AEROSOL 28 % FIO2 (5 LPM). TRACH IS PATENT, MIDLINE AND SECURED. TX TOLERATED WELL WITH NO ADVERSE AFFECTS. SUCTION X2 + PRN. BACK UP TRACH AND AMBU BAG IS AT THE BED SIDE. NO SOB OR RESPIRATORY DISTRESS NOTED. WILL KEEP MONITOR THE PT.
[2021-11-21] MEDS: VITAMINS A AND D 56.7 GM TUBE TP SCH ×4 (09:00→20:23)
[2021-11-21] MEDS: HYDROGEN PEROXIDE 480 ML BOTTLE TP SCH ×2 (09:30→21:46)
[2021-11-21] MEDS: DOCUSATE SODIUM LIQ 100 MG/10 ML UDC GT SCH ×2 (09:53→17:15)
[2021-11-21] MEDS: FERROUS SULFATE - FOR SA ONLY 330 MG/7.5 ML UDC GT SCH (09:53)
[2021-11-21] MEDS: DILTIAZEM HCL 30 MG TABLET GT SCH ×2 (09:53→20:21)
[2021-11-21] MEDS: LEVETIRACETAM SOL (5 ML) 100 MG/ML UDC GT SCH ×2 (09:54→20:23)
[2021-11-21] MEDS: ASCORBIC ACID 500 MG TABLET GT SCH (09:54)
[2021-11-21] MEDS: SITAGLIPTIN PHOSPHATE 50 MG TABLET GT SCH (09:54)
[2021-11-21] MEDS: ACIDOPHILUS/BULGARICUS 1 EACH TAB.CHEW GT SCH ×2 (09:54→17:15)
[2021-11-21] MEDS: MULTIVIT W/MINERALS 1 TAB TABLET GT SCH (09:54)
[2021-11-21] MEDS: LISINOPRIL (5MG) 5 MG TABLET GT SCH (09:54)
[2021-11-21] MEDS: ZINC SULFATE 220 MG CAPSULE GT SCH (09:54)
[2021-11-21 11:06] LABS: BASOPHILS # (AUTO) 0.1 K/uL (0.0-0.2); BASOPHILS % (AUTO) 0.8 % (0.0-2.0); EOSINOPHILS % (AUTO) 3.2 % (0.0-6.0); HEMATOCRIT 38 % (33-45); HEMOGLOBIN 12.6 g/dL (11.5-14.8); LYMPHOCYTES # (AUTO) 2.9 K/uL (0.8-4.8); LYMPHOCYTES % (AUTO) 44.3 % (20.0-44.0); MEAN CORPUSCULAR HGB CONC 33 g/dl (31.0-36.0); MEAN CORPUSCULAR VOLUME 93 fL (82-100); MONOCYTES # (AUTO) 0.6 K/uL (0.1-1.30); MONOCYTES % (AUTO) 8.9 % (2.0-12.0); NEUTROPHILS # (AUTO) 2.8 K/uL (1.8-8.9); NEUTROPHILS % (AUTO) 42.8 % (43.0-81.0); PLATELET COUNT (AUTO) 287 K/uL (150-450); RED BLOOD CELL COUNT(AUTO) 4.12 MIL/uL (4.0-5.2); WHITE BLOOD COUNT (AUTO) 6.4 K/uL (4.3-11.0)
[2021-11-21 11:24] LABS: CALCIUM, SERUM 8.8 mg/dL (8.5-10.1); MAGNESIUM 2.6 mg/dL (1.8-2.4); PHOSPHORUS 3.5 mg/dL (2.5-4.9); POTASSIUM 4.7 mmol/L (3.5-5.1)
[2021-11-21 13:30] VITALS: BP 139/65
[2021-11-21] MEDS: GLUCERNA 1.2 1,000 ML BOTTLE GT PRN (17:17)
[2021-11-21 19:28] VITALS: BP 107/59
[2021-11-21] MEDS: POLYETHYLENE GLYCOL 3350 17 GM POWD.PACK GT SCH (21:22)
[2021-11-21] MEDS: ATORVASTATIN 10 MG TABLET GT SCH (21:22)
[2021-11-21] MEDS: INSULIN GLARGINE,BASAGLAR 100 UNIT/ML INSULN.PEN SQ SCH (21:24)
[2021-11-21] MEDS: ENOXAPARIN SODIUM 40 MG/0.4 ML DISP.SYRIN SQ SCH (21:27)
[2021-11-21 23:58] VITALS: BP 112/65
[2021-11-22] MEDS: ALBUTEROL FS 2.5 MG/3 ML VIAL.NEB NEB SCH ×4 (01:41→19:36)
[2021-11-22] MEDS: IPRATROPIUM NEB FS 0.5 MG/2.5 ML AMPUL.NEB NEB SCH ×4 (01:41→19:36)
[2021-11-22] MEDS: INSULIN ASPART/LISPRO 100 UNIT/ML CARTRIDGE SQ PRN ×4 (05:23→23:39)
[2021-11-22] MEDS: POLYVINYL ALCOHOL 15 ML BOTTLE EACHEYE SCH ×4 (05:23→23:37)
[2021-11-22] MEDS: OMEPRAZOLE 20 MG CAPSULE.DR GT SCH (05:23)
[2021-11-22] MEDS: BLOOD SUGAR DIAGNOSTIC 1 EACH STRIP IN SCH ×4 (05:23→23:37)
--- NOTE | 2021-11-22 05:38 | NUR ---
RT Patient remains stable on 28% cool aerosol throughout the shift, no respiratory distress noted. Trach tube midline and secured, will continue to monitor. Addendum: 11/22/21 at 0539 by SHYANN BARRETT RT Amended: Links added.
[2021-11-22] MEDS: HYDROGEN PEROXIDE 480 ML BOTTLE TP SCH ×2 (07:59→21:11)
--- NOTE | 2021-11-22 08:02 | NUR ---
PATIENT FOUND ON C/A 28% WITH TRACH INTACT NO REDNESS. PATIENT IS STABLE. Addendum: 11/22/21 at 0803 by MIGUEL FALLON RT Amended: Links added.
[2021-11-22 08:03] VITALS: BP 101/62
[2021-11-22] MEDS: DILTIAZEM HCL 30 MG TABLET GT SCH ×2 (08:51→20:32)
[2021-11-22] MEDS: DOCUSATE SODIUM LIQ 100 MG/10 ML UDC GT SCH ×2 (08:53→17:11)
[2021-11-22] MEDS: FERROUS SULFATE - FOR SA ONLY 330 MG/7.5 ML UDC GT SCH (08:53)
[2021-11-22] MEDS: ACIDOPHILUS/BULGARICUS 1 EACH TAB.CHEW GT SCH ×2 (08:54→17:11)
[2021-11-22] MEDS: SITAGLIPTIN PHOSPHATE 50 MG TABLET GT SCH (08:54)
[2021-11-22] MEDS: LEVETIRACETAM SOL (5 ML) 100 MG/ML UDC GT SCH ×2 (08:54→20:32)
[2021-11-22] MEDS: LISINOPRIL (5MG) 5 MG TABLET GT SCH (08:55)
[2021-11-22] MEDS: ASCORBIC ACID 500 MG TABLET GT SCH (08:56)
[2021-11-22] MEDS: VITAMINS A AND D 56.7 GM TUBE TP SCH ×4 (08:56→20:33)
[2021-11-22] MEDS: ZINC SULFATE 220 MG CAPSULE GT SCH (08:56)
[2021-11-22] MEDS: MULTIVIT W/MINERALS 1 TAB TABLET GT SCH (08:56)
[2021-11-22 13:59] VITALS: BP 139/87
[2021-11-22] MEDS: GLUCERNA 1.2 1,000 ML BOTTLE GT PRN (17:12)
[2021-11-22 19:40] VITALS: BP 126/63
[2021-11-22] MEDS: POLYETHYLENE GLYCOL 3350 17 GM POWD.PACK GT SCH (22:05)
[2021-11-22] MEDS: ATORVASTATIN 10 MG TABLET GT SCH (22:05)
[2021-11-22] MEDS: INSULIN GLARGINE,BASAGLAR 100 UNIT/ML INSULN.PEN SQ SCH (22:07)
[2021-11-22] MEDS: ENOXAPARIN SODIUM 40 MG/0.4 ML DISP.SYRIN SQ SCH (22:07)
[2021-11-23 00:27] VITALS: BP 101/65
[2021-11-23] MEDS: ALBUTEROL FS 2.5 MG/3 ML VIAL.NEB NEB SCH ×4 (01:41→20:13)
[2021-11-23] MEDS: IPRATROPIUM NEB FS 0.5 MG/2.5 ML AMPUL.NEB NEB SCH ×4 (01:41→20:13)
[2021-11-23] MEDS: OMEPRAZOLE 20 MG CAPSULE.DR GT SCH (05:44)
[2021-11-23] MEDS: INSULIN ASPART/LISPRO 100 UNIT/ML CARTRIDGE SQ PRN ×4 (05:44→23:12)
[2021-11-23] MEDS: POLYVINYL ALCOHOL 15 ML BOTTLE EACHEYE SCH ×4 (05:44→23:12)
[2021-11-23] MEDS: BLOOD SUGAR DIAGNOSTIC 1 EACH STRIP IN SCH ×4 (05:44→23:12)
[2021-11-23 07:49] VITALS: BP 100/54
[2021-11-23] MEDS: DILTIAZEM HCL 30 MG TABLET GT SCH ×2 (09:00→20:45)
[2021-11-23] MEDS: FERROUS SULFATE - FOR SA ONLY 330 MG/7.5 ML UDC GT SCH (09:04)
[2021-11-23] MEDS: DOCUSATE SODIUM LIQ 100 MG/10 ML UDC GT SCH ×2 (09:04→17:16)
[2021-11-23] MEDS: SITAGLIPTIN PHOSPHATE 50 MG TABLET GT SCH (09:04)
[2021-11-23] MEDS: ACIDOPHILUS/BULGARICUS 1 EACH TAB.CHEW GT SCH ×2 (09:05→17:16)
[2021-11-23] MEDS: LEVETIRACETAM SOL (5 ML) 100 MG/ML UDC GT SCH ×2 (09:05→20:45)
[2021-11-23] MEDS: LISINOPRIL (5MG) 5 MG TABLET GT SCH (09:06)
[2021-11-23] MEDS: ASCORBIC ACID 500 MG TABLET GT SCH (09:07)
[2021-11-23] MEDS: MULTIVIT W/MINERALS 1 TAB TABLET GT SCH (09:07)
[2021-11-23] MEDS: ZINC SULFATE 220 MG CAPSULE GT SCH (09:07)
[2021-11-23] MEDS: VITAMINS A AND D 56.7 GM TUBE TP SCH ×4 (09:07→20:46)
[2021-11-23] MEDS: HYDROGEN PEROXIDE 480 ML BOTTLE TP SCH ×2 (09:10→20:14)
[2021-11-23] MEDS: GLUCERNA 1.2 1,000 ML BOTTLE GT PRN (12:13)
[2021-11-23 14:48] VITALS: BP 119/59
--- NOTE | 2021-11-23 17:05 | NUR ---
Called pt's daughter Kelly and offered the Covid-19 vaccine again. Provided education regarding the vaccine, discussed risks, benefits, and possible side effects. Kelly refused the Covid-19 vaccine to be given to pt. She asked about visitation policies and provided her with information.
[2021-11-23] MEDS: ATORVASTATIN 10 MG TABLET GT SCH (21:58)
[2021-11-23] MEDS: POLYETHYLENE GLYCOL 3350 17 GM POWD.PACK GT SCH (21:58)
[2021-11-23] MEDS: INSULIN GLARGINE,BASAGLAR 100 UNIT/ML INSULN.PEN SQ SCH (21:59)
[2021-11-23] MEDS: ENOXAPARIN SODIUM 40 MG/0.4 ML DISP.SYRIN SQ SCH (21:59)
[2021-11-23 22:56] VITALS: BP 99/61
[2021-11-24] MEDS: ALBUTEROL FS 2.5 MG/3 ML VIAL.NEB NEB SCH ×4 (02:08→20:27)
[2021-11-24] MEDS: IPRATROPIUM NEB FS 0.5 MG/2.5 ML AMPUL.NEB NEB SCH ×4 (02:08→20:27)
[2021-11-24] MEDS: BLOOD SUGAR DIAGNOSTIC 1 EACH STRIP IN SCH ×3 (05:46→17:46)
[2021-11-24] MEDS: OMEPRAZOLE 20 MG CAPSULE.DR GT SCH (05:46)
[2021-11-24] MEDS: POLYVINYL ALCOHOL 15 ML BOTTLE EACHEYE SCH ×3 (05:46→17:46)
[2021-11-24] MEDS: INSULIN ASPART/LISPRO 100 UNIT/ML CARTRIDGE SQ PRN ×3 (05:47→17:59)
[2021-11-24 07:21] VITALS: BP 111/71
[2021-11-24] MEDS: VITAMINS A AND D 56.7 GM TUBE TP SCH ×4 (09:00→21:33)
[2021-11-24] MEDS: ZINC SULFATE 220 MG CAPSULE GT SCH (09:00)
[2021-11-24] MEDS: DILTIAZEM HCL 30 MG TABLET GT SCH ×2 (09:00→21:00)
[2021-11-24] MEDS: LISINOPRIL (5MG) 5 MG TABLET GT SCH (09:00)
[2021-11-24] MEDS: SITAGLIPTIN PHOSPHATE 50 MG TABLET GT SCH (09:00)
[2021-11-24] MEDS: DOCUSATE SODIUM LIQ 100 MG/10 ML UDC GT SCH ×2 (09:00→17:46)
[2021-11-24] MEDS: LEVETIRACETAM SOL (5 ML) 100 MG/ML UDC GT SCH ×2 (09:00→21:32)
[2021-11-24] MEDS: ASCORBIC ACID 500 MG TABLET GT SCH (09:00)
[2021-11-24] MEDS: ACIDOPHILUS/BULGARICUS 1 EACH TAB.CHEW GT SCH ×2 (09:00→17:46)
[2021-11-24] MEDS: FERROUS SULFATE - FOR SA ONLY 330 MG/7.5 ML UDC GT SCH (09:00)
[2021-11-24] MEDS: MULTIVIT W/MINERALS 1 TAB TABLET GT SCH (09:00)
[2021-11-24] MEDS: HYDROGEN PEROXIDE 480 ML BOTTLE TP SCH ×2 (09:10→20:27)
[2021-11-24 11:13] VITALS: BP 128/73
--- NOTE | 2021-11-24 16:02 | NUR ---
PATIENT RECEIVED ON COOL AEROSOL @ 28% FIO2. MAINTAINING ADEQUATE SATURATIONS. HAS A TRACH PORTEX 9 UNCUFFED. AIRWAY PATENT AND SECURE. Q6 HHN TXS TOLERATING WELL WITH NO ADVERSE REACTION NOTED. AMBU BAG AND EMERGENCY TRACH AT THE BEDSIDE. SMALL THICK YELLOW SECRETIONS NOTED.
[2021-11-24 20:00] VITALS: BP 98/65
[2021-11-24] MEDS: POLYETHYLENE GLYCOL 3350 17 GM POWD.PACK GT SCH (21:33)
[2021-11-24] MEDS: ATORVASTATIN 10 MG TABLET GT SCH (21:33)
[2021-11-24] MEDS: INSULIN GLARGINE,BASAGLAR 100 UNIT/ML INSULN.PEN SQ SCH (21:34)
[2021-11-24] MEDS: ENOXAPARIN SODIUM 40 MG/0.4 ML DISP.SYRIN SQ SCH (21:34)
[2021-11-24 23:26] VITALS: BP 118/68
[2021-11-25] MEDS: GLUCERNA 1.2 1,000 ML BOTTLE GT PRN ×2 (00:15→18:21)
[2021-11-25] MEDS: BLOOD SUGAR DIAGNOSTIC 1 EACH STRIP IN SCH ×4 (00:31→17:56)
[2021-11-25] MEDS: POLYVINYL ALCOHOL 15 ML BOTTLE EACHEYE SCH ×4 (00:31→17:56)
[2021-11-25] MEDS: INSULIN ASPART/LISPRO 100 UNIT/ML CARTRIDGE SQ PRN ×4 (00:32→17:56)
[2021-11-25] MEDS: ALBUTEROL FS 2.5 MG/3 ML VIAL.NEB NEB SCH ×4 (01:40→20:18)
[2021-11-25] MEDS: IPRATROPIUM NEB FS 0.5 MG/2.5 ML AMPUL.NEB NEB SCH ×4 (01:40→20:18)
[2021-11-25] MEDS: OMEPRAZOLE 20 MG CAPSULE.DR GT SCH (05:39)
[2021-11-25 07:02] VITALS: BP 102/67
[2021-11-25] MEDS: HYDROGEN PEROXIDE 480 ML BOTTLE TP SCH ×2 (07:22→20:18)
--- NOTE | 2021-11-25 07:25 | NUR ---
PATIENT FOUND SLEEPING ON C/A 28% TOLERATING WELL. TRACH INTACT NO DISTRESS NOTED. Addendum: 11/25/21 at 0726 by MIGUEL FALLON RT Amended: Links added.
[2021-11-25] MEDS: DILTIAZEM HCL 30 MG TABLET GT SCH ×2 (09:00→21:00)
[2021-11-25] MEDS: LEVETIRACETAM SOL (5 ML) 100 MG/ML UDC GT SCH ×2 (09:07→21:50)
[2021-11-25] MEDS: FERROUS SULFATE - FOR SA ONLY 330 MG/7.5 ML UDC GT SCH (09:07)
[2021-11-25] MEDS: DOCUSATE SODIUM LIQ 100 MG/10 ML UDC GT SCH ×2 (09:07→16:28)
[2021-11-25] MEDS: SITAGLIPTIN PHOSPHATE 50 MG TABLET GT SCH (09:07)
[2021-11-25] MEDS: MULTIVIT W/MINERALS 1 TAB TABLET GT SCH (09:08)
[2021-11-25] MEDS: ACIDOPHILUS/BULGARICUS 1 EACH TAB.CHEW GT SCH ×2 (09:08→16:28)
[2021-11-25] MEDS: LISINOPRIL (5MG) 5 MG TABLET GT SCH (09:08)
[2021-11-25] MEDS: ASCORBIC ACID 500 MG TABLET GT SCH (09:09)
[2021-11-25] MEDS: ZINC SULFATE 220 MG CAPSULE GT SCH (09:09)
[2021-11-25] MEDS: VITAMINS A AND D 56.7 GM TUBE TP SCH ×4 (09:09→21:50)
[2021-11-25 11:58] VITALS: BP 100/50
[2021-11-25 19:16] VITALS: BP 109/59
[2021-11-25] MEDS: POLYETHYLENE GLYCOL 3350 17 GM POWD.PACK GT SCH (21:50)
[2021-11-25] MEDS: ATORVASTATIN 10 MG TABLET GT SCH (21:50)
[2021-11-25] MEDS: INSULIN GLARGINE,BASAGLAR 100 UNIT/ML INSULN.PEN SQ SCH (21:51)
[2021-11-25] MEDS: ENOXAPARIN SODIUM 40 MG/0.4 ML DISP.SYRIN SQ SCH (21:52)
[2021-11-25 23:39] VITALS: BP 117/69
[2021-11-26] MEDS: BLOOD SUGAR DIAGNOSTIC 1 EACH STRIP IN SCH ×5 (00:46→23:42)
[2021-11-26] MEDS: POLYVINYL ALCOHOL 15 ML BOTTLE EACHEYE SCH ×5 (00:46→23:42)
[2021-11-26] MEDS: INSULIN ASPART/LISPRO 100 UNIT/ML CARTRIDGE SQ PRN ×4 (00:47→17:36)
[2021-11-26] MEDS: IPRATROPIUM NEB FS 0.5 MG/2.5 ML AMPUL.NEB NEB SCH ×4 (02:02→20:18)
[2021-11-26] MEDS: ALBUTEROL FS 2.5 MG/3 ML VIAL.NEB NEB SCH ×4 (02:02→20:18)
[2021-11-26] MEDS: OMEPRAZOLE 20 MG CAPSULE.DR GT SCH (06:03)
[2021-11-26 07:14] VITALS: BP 132/69
[2021-11-26] MEDS: DOCUSATE SODIUM LIQ 100 MG/10 ML UDC GT SCH ×2 (08:46→16:50)
[2021-11-26] MEDS: FERROUS SULFATE - FOR SA ONLY 330 MG/7.5 ML UDC GT SCH (08:46)
[2021-11-26] MEDS: LEVETIRACETAM SOL (5 ML) 100 MG/ML UDC GT SCH ×2 (08:46→21:00)
[2021-11-26] MEDS: ACIDOPHILUS/BULGARICUS 1 EACH TAB.CHEW GT SCH ×2 (08:46→16:50)
[2021-11-26] MEDS: DILTIAZEM HCL 30 MG TABLET GT SCH ×2 (08:46→21:00)
[2021-11-26] MEDS: SITAGLIPTIN PHOSPHATE 50 MG TABLET GT SCH (08:46)
[2021-11-26] MEDS: MULTIVIT W/MINERALS 1 TAB TABLET GT SCH (08:47)
[2021-11-26] MEDS: LISINOPRIL (5MG) 5 MG TABLET GT SCH (08:47)
[2021-11-26] MEDS: ASCORBIC ACID 500 MG TABLET GT SCH (08:47)
[2021-11-26] MEDS: ZINC SULFATE 220 MG CAPSULE GT SCH (08:48)
[2021-11-26] MEDS: VITAMINS A AND D 56.7 GM TUBE TP SCH ×4 (08:48→21:00)
[2021-11-26] MEDS: HYDROGEN PEROXIDE 480 ML BOTTLE TP SCH ×2 (09:03→20:18)
[2021-11-26 12:09] VITALS: BP 121/78
[2021-11-26] MEDS: GLUCERNA 1.2 1,000 ML BOTTLE GT PRN (17:33)
[2021-11-26 19:20] VITALS: BP 142/78
[2021-11-26] MEDS: ATORVASTATIN 10 MG TABLET GT SCH (22:29)
[2021-11-26] MEDS: POLYETHYLENE GLYCOL 3350 17 GM POWD.PACK GT SCH (22:29)
[2021-11-26] MEDS: INSULIN GLARGINE,BASAGLAR 100 UNIT/ML INSULN.PEN SQ SCH (22:30)
[2021-11-26] MEDS: ENOXAPARIN SODIUM 40 MG/0.4 ML DISP.SYRIN SQ SCH (22:31)
[2021-11-27 01:12] VITALS: BP 102/59
[2021-11-27] MEDS: ALBUTEROL FS 2.5 MG/3 ML VIAL.NEB NEB SCH ×4 (02:08→20:12)
[2021-11-27] MEDS: IPRATROPIUM NEB FS 0.5 MG/2.5 ML AMPUL.NEB NEB SCH ×4 (02:08→20:12)
--- NOTE | 2021-11-27 02:22 | NUR ---
RT PT RECVD AWAKE ON 28% CA VIA T-BAR, TRACH IS PATENT AND SECURED. SUCTION DONE PRN, NEB TX GIVEN AND [place] WELL. TRACH CARE DONE, NO SOB OR RESPIRATORY DISTRESS NOTED AT THIS TIME. AMBU BAG AND SPARE TRACH AT BEDSIDE. SPO2 >92%.
[2021-11-27] MEDS: BLOOD SUGAR DIAGNOSTIC 1 EACH STRIP IN SCH ×3 (05:49→18:06)
[2021-11-27] MEDS: POLYVINYL ALCOHOL 15 ML BOTTLE EACHEYE SCH ×4 (05:49→23:26)
[2021-11-27] MEDS: OMEPRAZOLE 20 MG CAPSULE.DR GT SCH (05:49)
[2021-11-27 07:24] VITALS: BP 90/56
[2021-11-27] MEDS: HYDROGEN PEROXIDE 480 ML BOTTLE TP SCH ×2 (09:00→21:26)
[2021-11-27] MEDS: DILTIAZEM HCL 30 MG TABLET GT SCH ×2 (09:00→21:00)
[2021-11-27] MEDS: LISINOPRIL (5MG) 5 MG TABLET GT SCH (09:00)
[2021-11-27] MEDS: ACIDOPHILUS/BULGARICUS 1 EACH TAB.CHEW GT SCH ×2 (09:39→17:04)
[2021-11-27] MEDS: FERROUS SULFATE - FOR SA ONLY 330 MG/7.5 ML UDC GT SCH (09:39)
[2021-11-27] MEDS: SITAGLIPTIN PHOSPHATE 50 MG TABLET GT SCH (09:39)
[2021-11-27] MEDS: DOCUSATE SODIUM LIQ 100 MG/10 ML UDC GT SCH ×2 (09:39→17:04)
[2021-11-27] MEDS: MULTIVIT W/MINERALS 1 TAB TABLET GT SCH (09:40)
[2021-11-27] MEDS: ZINC SULFATE 220 MG CAPSULE GT SCH (09:40)
[2021-11-27] MEDS: ASCORBIC ACID 500 MG TABLET GT SCH (09:40)
[2021-11-27] MEDS: VITAMINS A AND D 56.7 GM TUBE TP SCH ×4 (09:40→21:00)
[2021-11-27] MEDS: LEVETIRACETAM SOL (5 ML) 100 MG/ML UDC GT SCH ×2 (09:40→21:00)
[2021-11-27 12:33] VITALS: BP 121/72
[2021-11-27] MEDS: INSULIN ASPART/LISPRO 100 UNIT/ML CARTRIDGE SQ PRN ×2 (12:51→18:06)
[2021-11-27] MEDS: GLUCERNA 1.2 1,000 ML BOTTLE GT PRN (15:06)
[2021-11-27 19:54] VITALS: BP 118/56
--- NOTE | 2021-11-27 20:15 | NUR ---
RT NOTE RECEIVED PT ON CA 28% 5LPM. NO RESP DISTRESS. SPO2 98%. BREATHING TX GIVEN AND TOLERATED. MODERATE AMOUNT OF THICK SECRETIONS DURING SUCTION. TRACH IS SECURED AND PATENT. SPARE TRACH AND AMBU BAG ARE BEDSIDE. Addendum: 11/27/21 at 2015 by Ankur Kang RT Amended: Links added.
[2021-11-27] MEDS: POLYETHYLENE GLYCOL 3350 17 GM POWD.PACK GT SCH (22:06)
[2021-11-27] MEDS: ATORVASTATIN 10 MG TABLET GT SCH (22:06)
[2021-11-27] MEDS: ENOXAPARIN SODIUM 40 MG/0.4 ML DISP.SYRIN SQ SCH (22:10)
[2021-11-27] MEDS: INSULIN GLARGINE,BASAGLAR 100 UNIT/ML INSULN.PEN SQ SCH (22:10)
[2021-11-28] MEDS: BLOOD SUGAR DIAGNOSTIC 1 EACH STRIP IN SCH ×5 (00:40→23:40)
[2021-11-28] MEDS: ALBUTEROL FS 2.5 MG/3 ML VIAL.NEB NEB SCH ×4 (02:23→20:17)
[2021-11-28] MEDS: IPRATROPIUM NEB FS 0.5 MG/2.5 ML AMPUL.NEB NEB SCH ×4 (02:23→20:17)
[2021-11-28] MEDS: POLYVINYL ALCOHOL 15 ML BOTTLE EACHEYE SCH ×4 (06:15→23:40)
[2021-11-28] MEDS: OMEPRAZOLE 20 MG CAPSULE.DR GT SCH (06:15)
[2021-11-28 07:37] VITALS: BP 115/71
[2021-11-28] MEDS: HYDROGEN PEROXIDE 480 ML BOTTLE TP SCH ×2 (09:29→21:24)
[2021-11-28] MEDS: DOCUSATE SODIUM LIQ 100 MG/10 ML UDC GT SCH ×2 (09:35→17:26)
[2021-11-28] MEDS: FERROUS SULFATE - FOR SA ONLY 330 MG/7.5 ML UDC GT SCH (09:35)
[2021-11-28] MEDS: ACIDOPHILUS/BULGARICUS 1 EACH TAB.CHEW GT SCH ×2 (09:35→17:26)
[2021-11-28] MEDS: LEVETIRACETAM SOL (5 ML) 100 MG/ML UDC GT SCH ×2 (09:35→20:50)
[2021-11-28] MEDS: SITAGLIPTIN PHOSPHATE 50 MG TABLET GT SCH (09:35)
[2021-11-28] MEDS: DILTIAZEM HCL 30 MG TABLET GT SCH ×2 (09:36→20:49)
[2021-11-28] MEDS: LISINOPRIL (5MG) 5 MG TABLET GT SCH (09:36)
[2021-11-28] MEDS: ASCORBIC ACID 500 MG TABLET GT SCH (09:37)
[2021-11-28] MEDS: VITAMINS A AND D 56.7 GM TUBE TP SCH ×4 (09:37→20:51)
[2021-11-28] MEDS: MULTIVIT W/MINERALS 1 TAB TABLET GT SCH (09:37)
[2021-11-28] MEDS: ZINC SULFATE 220 MG CAPSULE GT SCH (09:37)
[2021-11-28] MEDS: INSULIN ASPART/LISPRO 100 UNIT/ML CARTRIDGE SQ PRN ×3 (13:02→23:40)
[2021-11-28] MEDS: GLUCERNA 1.2 1,000 ML BOTTLE GT PRN (13:15)
[2021-11-28 13:50] VITALS: BP 108/61
[2021-11-28 20:57] VITALS: BP 111/65
--- NOTE | 2021-11-28 21:25 | NUR ---
RT NOTE RECEIVED PATIENT ON CA 28% 5LPM. TOLERATES CURRENT SETTINGS WELL WITH AN SPO2 OF 98%. NO RESP DISTRESS. MODERATE AMOUNT OF SECRETIONS WHEN SUCTIONED. BREATHING TX GIVEN AND TOLERATED. TRACH IS PATENT AND SECURED. SPARE TRACH AND AMBU BAG ARE BEDSIDE. Addendum: 11/28/21 at 2125 by Ankur Kang RT Amended: Links added.
[2021-11-28] MEDS: POLYETHYLENE GLYCOL 3350 17 GM POWD.PACK GT SCH (22:07)
[2021-11-28] MEDS: ATORVASTATIN 10 MG TABLET GT SCH (22:07)
[2021-11-28] MEDS: ENOXAPARIN SODIUM 40 MG/0.4 ML DISP.SYRIN SQ SCH (22:08)
[2021-11-28] MEDS: INSULIN GLARGINE,BASAGLAR 100 UNIT/ML INSULN.PEN SQ SCH (22:08)
[2021-11-29] MEDS: IPRATROPIUM NEB FS 0.5 MG/2.5 ML AMPUL.NEB NEB SCH ×4 (02:24→20:16)
[2021-11-29] MEDS: ALBUTEROL FS 2.5 MG/3 ML VIAL.NEB NEB SCH ×4 (02:24→20:16)
[2021-11-29] MEDS: OMEPRAZOLE 20 MG CAPSULE.DR GT SCH (05:23)
[2021-11-29] MEDS: BLOOD SUGAR DIAGNOSTIC 1 EACH STRIP IN SCH ×3 (05:23→17:16)
[2021-11-29] MEDS: POLYVINYL ALCOHOL 15 ML BOTTLE EACHEYE SCH ×3 (05:23→17:05)
[2021-11-29] MEDS: INSULIN ASPART/LISPRO 100 UNIT/ML CARTRIDGE SQ PRN ×3 (05:24→17:16)
[2021-11-29 07:18] VITALS: BP 124/66
[2021-11-29] MEDS: HYDROGEN PEROXIDE 480 ML BOTTLE TP SCH ×2 (07:55→20:16)
--- NOTE | 2021-11-29 07:57 | NUR ---
patient found resting well w/o distress. patient on 28% c/a. patient trach is intact no distress noted. Addendum: 11/29/21 at 0759 by MIGUEL FALLON RT Amended: Links added.
[2021-11-29] MEDS: DOCUSATE SODIUM LIQ 100 MG/10 ML UDC GT SCH ×2 (08:48→17:04)
[2021-11-29] MEDS: DILTIAZEM HCL 30 MG TABLET GT SCH ×2 (08:48→20:12)
[2021-11-29] MEDS: SITAGLIPTIN PHOSPHATE 50 MG TABLET GT SCH (08:49)
[2021-11-29] MEDS: ACIDOPHILUS/BULGARICUS 1 EACH TAB.CHEW GT SCH ×2 (08:49→17:05)
[2021-11-29] MEDS: LISINOPRIL (5MG) 5 MG TABLET GT SCH (08:49)
[2021-11-29] MEDS: FERROUS SULFATE - FOR SA ONLY 330 MG/7.5 ML UDC GT SCH (08:49)
[2021-11-29] MEDS: MULTIVIT W/MINERALS 1 TAB TABLET GT SCH (08:49)
[2021-11-29] MEDS: LEVETIRACETAM SOL (5 ML) 100 MG/ML UDC GT SCH ×2 (08:49→20:12)
[2021-11-29] MEDS: ZINC SULFATE 220 MG CAPSULE GT SCH (08:50)
[2021-11-29] MEDS: ASCORBIC ACID 500 MG TABLET GT SCH (08:50)
[2021-11-29] MEDS: VITAMINS A AND D 56.7 GM TUBE TP SCH ×4 (08:50→20:12)
[2021-11-29 11:53] VITALS: BP 97/66
[2021-11-29] MEDS: GLUCERNA 1.2 1,000 ML BOTTLE GT PRN (13:41)
[2021-11-29 20:52] VITALS: BP 148/92
[2021-11-29] MEDS: POLYETHYLENE GLYCOL 3350 17 GM POWD.PACK GT SCH (21:37)
[2021-11-29] MEDS: ATORVASTATIN 10 MG TABLET GT SCH (21:37)
[2021-11-29] MEDS: INSULIN GLARGINE,BASAGLAR 100 UNIT/ML INSULN.PEN SQ SCH (21:38)
[2021-11-29] MEDS: ENOXAPARIN SODIUM 40 MG/0.4 ML DISP.SYRIN SQ SCH (21:40)
[2021-11-30] MEDS: BLOOD SUGAR DIAGNOSTIC 1 EACH STRIP IN SCH ×5 (00:33→23:32)
[2021-11-30] MEDS: POLYVINYL ALCOHOL 15 ML BOTTLE EACHEYE SCH ×5 (00:33→23:32)
[2021-11-30] MEDS: INSULIN ASPART/LISPRO 100 UNIT/ML CARTRIDGE SQ PRN ×5 (00:35→23:33)
[2021-11-30 01:52] VITALS: BP 103/61
[2021-11-30] MEDS: ALBUTEROL FS 2.5 MG/3 ML VIAL.NEB NEB SCH ×4 (02:03→20:10)
[2021-11-30] MEDS: IPRATROPIUM NEB FS 0.5 MG/2.5 ML AMPUL.NEB NEB SCH ×4 (02:03→20:10)
[2021-11-30] MEDS: GLUCERNA 1.2 1,000 ML BOTTLE GT PRN (05:17)
[2021-11-30] MEDS: OMEPRAZOLE 20 MG CAPSULE.DR GT SCH (05:19)
[2021-11-30 07:22] VITALS: BP 103/51
[2021-11-30] MEDS: ACIDOPHILUS/BULGARICUS 1 EACH TAB.CHEW GT SCH ×2 (08:32→16:14)
[2021-11-30] MEDS: SITAGLIPTIN PHOSPHATE 50 MG TABLET GT SCH (08:32)
[2021-11-30] MEDS: FERROUS SULFATE - FOR SA ONLY 330 MG/7.5 ML UDC GT SCH (08:32)
[2021-11-30] MEDS: DOCUSATE SODIUM LIQ 100 MG/10 ML UDC GT SCH ×2 (08:32→16:14)
[2021-11-30] MEDS: DILTIAZEM HCL 30 MG TABLET GT SCH ×2 (08:32→21:00)
[2021-11-30] MEDS: LEVETIRACETAM SOL (5 ML) 100 MG/ML UDC GT SCH ×2 (08:32→21:56)
[2021-11-30] MEDS: ASCORBIC ACID 500 MG TABLET GT SCH (08:33)
[2021-11-30] MEDS: VITAMINS A AND D 56.7 GM TUBE TP SCH ×4 (08:33→21:56)
[2021-11-30] MEDS: MULTIVIT W/MINERALS 1 TAB TABLET GT SCH (08:33)
[2021-11-30] MEDS: ZINC SULFATE 220 MG CAPSULE GT SCH (08:33)
[2021-11-30] MEDS: LISINOPRIL (5MG) 5 MG TABLET GT SCH (08:33)
[2021-11-30] MEDS: HYDROGEN PEROXIDE 480 ML BOTTLE TP SCH ×2 (09:30→20:10)
--- NOTE | 2021-11-30 10:11 | NUR ---
PT WAS RECEIVED ON T-PIECE COOL AEROSOL 28 % FIO2 (5 LPM). TRACH IS PATENT, MIDLINE AND SECURED. TX TOLERATED WELL WITH NO ADVERSE AFFECTS NOTED. SUCTION X2 + PRN. BACK UP TRACH AND AMBU BAG IS AT THE BED SIDE. NO SOB OR RESPIRATORY DISTRESS NOTED. WILL KEEP MONITOR THE PT.
[2021-11-30 12:27] VITALS: BP 143/90
[2021-11-30 19:47] VITALS: BP 104/63
[2021-11-30] MEDS: ATORVASTATIN 10 MG TABLET GT SCH (21:56)
[2021-11-30] MEDS: POLYETHYLENE GLYCOL 3350 17 GM POWD.PACK GT SCH (21:56)
[2021-11-30] MEDS: INSULIN GLARGINE,BASAGLAR 100 UNIT/ML INSULN.PEN SQ SCH (21:57)
[2021-11-30] MEDS: ENOXAPARIN SODIUM 40 MG/0.4 ML DISP.SYRIN SQ SCH (21:58)
[2021-12-01] MEDS: IPRATROPIUM NEB FS 0.5 MG/2.5 ML AMPUL.NEB NEB SCH ×4 (02:34→19:39)
[2021-12-01] MEDS: ALBUTEROL FS 2.5 MG/3 ML VIAL.NEB NEB SCH ×4 (02:34→19:39)
[2021-12-01] MEDS: BLOOD SUGAR DIAGNOSTIC 1 EACH STRIP IN SCH ×4 (05:48→23:54)
[2021-12-01] MEDS: OMEPRAZOLE 20 MG CAPSULE.DR GT SCH (05:48)
[2021-12-01] MEDS: POLYVINYL ALCOHOL 15 ML BOTTLE EACHEYE SCH ×4 (05:48→23:54)
[2021-12-01] MEDS: INSULIN ASPART/LISPRO 100 UNIT/ML CARTRIDGE SQ PRN ×4 (05:49→23:55)
[2021-12-01] MEDS: GLUCERNA 1.2 1,000 ML BOTTLE GT PRN (05:49)
[2021-12-01 07:23] VITALS: BP 97/56
[2021-12-01] MEDS: LISINOPRIL (5MG) 5 MG TABLET GT SCH (09:00)
[2021-12-01] MEDS: DILTIAZEM HCL 30 MG TABLET GT SCH ×2 (09:00→20:51)
[2021-12-01] MEDS: HYDROGEN PEROXIDE 480 ML BOTTLE TP SCH ×2 (09:00→21:42)
[2021-12-01] MEDS: FERROUS SULFATE - FOR SA ONLY 330 MG/7.5 ML UDC GT SCH (09:39)
[2021-12-01] MEDS: LEVETIRACETAM SOL (5 ML) 100 MG/ML UDC GT SCH ×2 (09:39→20:51)
[2021-12-01] MEDS: DOCUSATE SODIUM LIQ 100 MG/10 ML UDC GT SCH ×2 (09:39→17:00)
[2021-12-01] MEDS: ACIDOPHILUS/BULGARICUS 1 EACH TAB.CHEW GT SCH ×2 (09:39→17:00)
[2021-12-01] MEDS: SITAGLIPTIN PHOSPHATE 50 MG TABLET GT SCH (09:39)
[2021-12-01] MEDS: MULTIVIT W/MINERALS 1 TAB TABLET GT SCH (09:41)
[2021-12-01] MEDS: ZINC SULFATE 220 MG CAPSULE GT SCH (09:41)
[2021-12-01] MEDS: ASCORBIC ACID 500 MG TABLET GT SCH (09:41)
[2021-12-01] MEDS: VITAMINS A AND D 56.7 GM TUBE TP SCH ×4 (09:41→20:51)
[2021-12-01 12:23] VITALS: BP 125/64
--- NOTE | 2021-12-01 14:49 | NUR ---
Resident's birthday today Lucy Wong. Called Kelly the daughter and she was happy to see her mother on face time.We will call her again tomorrow December 02 upon request of the daughter.
--- NOTE | 2021-12-01 19:48 | NUR ---
RT NOTE RECEIVED PT ON CA 28% 5LPM. PT TOLERATING CURRENT SETTINGS WELL WITH AN SPO2 OF 98%. NO RESP DISTRESS UPON ASSESSMENT. SUCTIONED WITH MINIMAL AMOUNT OF THICK CLEAR SECRETIONS. TRACH IS PATENT AND SECURED. SPARE TRACH AND AMBU BAG AT BEDSIDE. Addendum: 12/01/21 at 1948 by Ankur Kang RT Amended: Links added.
[2021-12-01 20:38] VITALS: BP 141/87
[2021-12-01] MEDS: INSULIN GLARGINE,BASAGLAR 100 UNIT/ML INSULN.PEN SQ SCH (22:00)
[2021-12-01] MEDS: ENOXAPARIN SODIUM 40 MG/0.4 ML DISP.SYRIN SQ SCH (22:08)
[2021-12-01] MEDS: POLYETHYLENE GLYCOL 3350 17 GM POWD.PACK GT SCH (22:08)
[2021-12-01] MEDS: ATORVASTATIN 10 MG TABLET GT SCH (22:08)
[2021-12-02] MEDS: IPRATROPIUM NEB FS 0.5 MG/2.5 ML AMPUL.NEB NEB SCH ×4 (01:11→20:16)
[2021-12-02] MEDS: ALBUTEROL FS 2.5 MG/3 ML VIAL.NEB NEB SCH ×4 (01:11→20:16)
[2021-12-02] MEDS: OMEPRAZOLE 20 MG CAPSULE.DR GT SCH (06:00)
[2021-12-02] MEDS: HYDROGEN PEROXIDE 480 ML BOTTLE TP SCH ×2 (09:00→20:16)
[2021-12-02] MEDS: DILTIAZEM HCL 30 MG TABLET GT SCH ×2 (09:35→21:00)
[2021-12-02] MEDS: LEVETIRACETAM SOL (5 ML) 100 MG/ML UDC GT SCH ×2 (09:37→21:00)
[2021-12-02] MEDS: FERROUS SULFATE - FOR SA ONLY 330 MG/7.5 ML UDC GT SCH (09:37)
[2021-12-02] MEDS: DOCUSATE SODIUM LIQ 100 MG/10 ML UDC GT SCH ×2 (09:37→16:27)
[2021-12-02] MEDS: SITAGLIPTIN PHOSPHATE 50 MG TABLET GT SCH (09:37)
[2021-12-02] MEDS: LISINOPRIL (5MG) 5 MG TABLET GT SCH (09:38)
[2021-12-02] MEDS: ACIDOPHILUS/BULGARICUS 1 EACH TAB.CHEW GT SCH ×2 (09:38→16:27)
[2021-12-02] MEDS: MULTIVIT W/MINERALS 1 TAB TABLET GT SCH (09:39)
[2021-12-02] MEDS: ASCORBIC ACID 500 MG TABLET GT SCH (09:39)
[2021-12-02] MEDS: ZINC SULFATE 220 MG CAPSULE GT SCH (09:40)
[2021-12-02] MEDS: VITAMINS A AND D 56.7 GM TUBE TP SCH ×4 (09:40→21:00)
[2021-12-02 10:25] VITALS: BP 138/60
[2021-12-02] MEDS: BLOOD SUGAR DIAGNOSTIC 1 EACH STRIP IN SCH ×2 (12:00→18:28)
[2021-12-02] MEDS: POLYVINYL ALCOHOL 15 ML BOTTLE EACHEYE SCH ×2 (12:00→18:28)
[2021-12-02 12:19] VITALS: BP 130/56
[2021-12-02] MEDS: INSULIN ASPART/LISPRO 100 UNIT/ML CARTRIDGE SQ PRN ×2 (12:25→18:29)
[2021-12-02] MEDS: GLUCERNA 1.2 1,000 ML BOTTLE GT PRN (16:28)
[2021-12-02 19:28] VITALS: BP 106/59
[2021-12-02] MEDS: POLYETHYLENE GLYCOL 3350 17 GM POWD.PACK GT SCH (22:00)
[2021-12-02] MEDS: ATORVASTATIN 10 MG TABLET GT SCH (22:00)
[2021-12-02] MEDS: INSULIN GLARGINE,BASAGLAR 100 UNIT/ML INSULN.PEN SQ SCH (22:01)
[2021-12-02] MEDS: ENOXAPARIN SODIUM 40 MG/0.4 ML DISP.SYRIN SQ SCH (22:02)
[2021-12-03 00:15] VITALS: BP 116/76
[2021-12-03] MEDS: POLYVINYL ALCOHOL 15 ML BOTTLE EACHEYE SCH ×5 (00:21→23:32)
[2021-12-03] MEDS: BLOOD SUGAR DIAGNOSTIC 1 EACH STRIP IN SCH ×5 (00:21→23:32)
[2021-12-03] MEDS: INSULIN ASPART/LISPRO 100 UNIT/ML CARTRIDGE SQ PRN ×4 (00:22→23:32)
[2021-12-03] MEDS: ALBUTEROL FS 2.5 MG/3 ML VIAL.NEB NEB SCH ×4 (02:12→18:46)
[2021-12-03] MEDS: IPRATROPIUM NEB FS 0.5 MG/2.5 ML AMPUL.NEB NEB SCH ×4 (02:12→18:46)
[2021-12-03] MEDS: OMEPRAZOLE 20 MG CAPSULE.DR GT SCH (06:21)
[2021-12-03 07:40] VITALS: BP 116/62
[2021-12-03] MEDS: HYDROGEN PEROXIDE 480 ML BOTTLE TP SCH ×2 (08:35→20:03)
[2021-12-03] MEDS: DILTIAZEM HCL 30 MG TABLET GT SCH ×2 (08:50→20:43)
[2021-12-03] MEDS: DOCUSATE SODIUM LIQ 100 MG/10 ML UDC GT SCH ×2 (08:51→17:09)
[2021-12-03] MEDS: SITAGLIPTIN PHOSPHATE 50 MG TABLET GT SCH (08:51)
[2021-12-03] MEDS: FERROUS SULFATE - FOR SA ONLY 330 MG/7.5 ML UDC GT SCH (08:51)
[2021-12-03] MEDS: LEVETIRACETAM SOL (5 ML) 100 MG/ML UDC GT SCH ×2 (08:51→20:43)
[2021-12-03] MEDS: MULTIVIT W/MINERALS 1 TAB TABLET GT SCH (08:52)
[2021-12-03] MEDS: ACIDOPHILUS/BULGARICUS 1 EACH TAB.CHEW GT SCH ×2 (08:52→17:09)
[2021-12-03] MEDS: LISINOPRIL (5MG) 5 MG TABLET GT SCH (08:52)
[2021-12-03] MEDS: ASCORBIC ACID 500 MG TABLET GT SCH (08:56)
[2021-12-03] MEDS: VITAMINS A AND D 56.7 GM TUBE TP SCH ×4 (08:56→20:43)
[2021-12-03] MEDS: ZINC SULFATE 220 MG CAPSULE GT SCH (08:56)
[2021-12-03 14:53] VITALS: BP 110/77
--- NOTE | 2021-12-03 15:29 | NUR ---
Facility Update: ORACIO notified patient's daughter, Kelly via email : "Facility Update: Please note that a Sub-Acute employee has tested positive for COVID-19 yesterday and another employee tested positive today. [facility] continues following [facility] infection control guidelines. Staff and patients will continue response testing and being screened for symptoms.All visitation Guidelines remain the same". ORACIO attached visitation guidelines on email. Addendum: 12/07/21 at 1209 by LUIS ALBERTO NARAYANAN Correction: ORACOI notified family of the following: "Facility Update:Please note that NO Sub-Acute employee has tested positive for COVID-19 this week. [facility] continues following [facility] infection control guidelines. Staff and patients will continue response testing and being screened for symptoms. All visitation Guidelines remain the same. Please see attached visitation guidelines attached on this email."
--- NOTE | 2021-12-03 16:05 | NUR ---
PATIENT RECEIVED ON COOL AEROSOL @ 28%. HAS A TRACH PORTEX 9 UNCUFFED. AIRWAY PATENT AND SECURE. Q6 HHN TXS TOLERATING WELL WITH NO ADVERSE REACTION NOTED. AMBU BAG AND EMERGENCY TRACH AT THE BEDSIDE. SMALL YELLOW THICK SECRETIONS NOTED.
[2021-12-03] MEDS: GLUCERNA 1.2 1,000 ML BOTTLE GT PRN (17:10)
[2021-12-03 20:52] VITALS: BP 100/62
[2021-12-03] MEDS: ENOXAPARIN SODIUM 40 MG/0.4 ML DISP.SYRIN SQ SCH (21:08)
[2021-12-03] MEDS: POLYETHYLENE GLYCOL 3350 17 GM POWD.PACK GT SCH (21:08)
[2021-12-03] MEDS: ATORVASTATIN 10 MG TABLET GT SCH (21:08)
[2021-12-03] MEDS: INSULIN GLARGINE,BASAGLAR 100 UNIT/ML INSULN.PEN SQ SCH (21:13)
[2021-12-04 00:36] VITALS: BP 128/58
[2021-12-04] MEDS: ALBUTEROL FS 2.5 MG/3 ML VIAL.NEB NEB SCH ×4 (00:36→20:29)
[2021-12-04] MEDS: IPRATROPIUM NEB FS 0.5 MG/2.5 ML AMPUL.NEB NEB SCH ×4 (00:36→20:29)
[2021-12-04] MEDS: OMEPRAZOLE 20 MG CAPSULE.DR GT SCH (05:17)
[2021-12-04] MEDS: BLOOD SUGAR DIAGNOSTIC 1 EACH STRIP IN SCH ×4 (05:17→23:16)
[2021-12-04] MEDS: INSULIN ASPART/LISPRO 100 UNIT/ML CARTRIDGE SQ PRN ×4 (05:17→23:17)
[2021-12-04] MEDS: POLYVINYL ALCOHOL 15 ML BOTTLE EACHEYE SCH ×4 (05:17→23:16)
[2021-12-04 07:29] VITALS: BP 115/69
[2021-12-04] MEDS: HYDROGEN PEROXIDE 480 ML BOTTLE TP SCH ×2 (08:10→21:33)
[2021-12-04] MEDS: FERROUS SULFATE - FOR SA ONLY 330 MG/7.5 ML UDC GT SCH (09:14)
[2021-12-04] MEDS: DILTIAZEM HCL 30 MG TABLET GT SCH ×2 (09:14→20:24)
[2021-12-04] MEDS: DOCUSATE SODIUM LIQ 100 MG/10 ML UDC GT SCH ×2 (09:14→16:09)
[2021-12-04] MEDS: LISINOPRIL (5MG) 5 MG TABLET GT SCH (09:14)
[2021-12-04] MEDS: LEVETIRACETAM SOL (5 ML) 100 MG/ML UDC GT SCH ×2 (09:14→20:24)
[2021-12-04] MEDS: VITAMINS A AND D 56.7 GM TUBE TP SCH ×4 (09:14→20:24)
[2021-12-04] MEDS: ACIDOPHILUS/BULGARICUS 1 EACH TAB.CHEW GT SCH ×2 (09:14→16:09)
[2021-12-04] MEDS: SITAGLIPTIN PHOSPHATE 50 MG TABLET GT SCH (09:14)
[2021-12-04] MEDS: MULTIVIT W/MINERALS 1 TAB TABLET GT SCH (09:14)
[2021-12-04] MEDS: ASCORBIC ACID 500 MG TABLET GT SCH (09:14)
[2021-12-04] MEDS: ZINC SULFATE 220 MG CAPSULE GT SCH (09:14)
--- NOTE | 2021-12-04 10:49 | NUR ---
RT Patient received on cool aerosol 28% (5LPM). Breathing tx and suction tolerated well. Trach tube patent and secured. Back up trach and ambu bag at bedside. No SOB or respiratory distress noted at this time.
[2021-12-04] MEDS: GLUCERNA 1.2 1,000 ML BOTTLE GT PRN (11:54)
[2021-12-04 12:35] VITALS: BP 95/59
--- NOTE | 2021-12-04 17:26 | NUR ---
Scanned patient's ID band to check blood sugar level. Nurse chose "override" since glucometer machine stated "downtime". Obtained BS 116 mg/dl, no coverage per sliding scale. Will continue to monitor the patient.
--- NOTE | 2021-12-04 20:35 | NUR ---
RT NOTE RECEIVED PT ON COOL AEROSOL 28% 5LPM. TOLERATING CURRENT SETTINGS WELL. SPO2 98% ON ASSESSMENT. BREATHING TX GIVEN AND TOLERATED. NO RESP DISTRESS. TRACH IS SECURED AND PATENT. ABELARDO TRACH AND AMBU BAG ARE BEDSIDE. Addendum: 12/04/21 at 2034 by Ankur Kang RT Amended: Links added.
[2021-12-04 20:52] VITALS: BP 137/61
[2021-12-04] MEDS: ENOXAPARIN SODIUM 40 MG/0.4 ML DISP.SYRIN SQ SCH (21:00)
[2021-12-04] MEDS: INSULIN GLARGINE,BASAGLAR 100 UNIT/ML INSULN.PEN SQ SCH (21:00)
[2021-12-04] MEDS: ATORVASTATIN 10 MG TABLET GT SCH (21:01)
[2021-12-04] MEDS: POLYETHYLENE GLYCOL 3350 17 GM POWD.PACK GT SCH (21:01)
[2021-12-05 00:08] VITALS: BP 121/76
[2021-12-05] MEDS: IPRATROPIUM NEB FS 0.5 MG/2.5 ML AMPUL.NEB NEB SCH ×4 (02:21→20:01)
[2021-12-05] MEDS: ALBUTEROL FS 2.5 MG/3 ML VIAL.NEB NEB SCH ×4 (02:21→20:01)
[2021-12-05] MEDS: POLYVINYL ALCOHOL 15 ML BOTTLE EACHEYE SCH ×3 (05:17→17:24)
[2021-12-05] MEDS: OMEPRAZOLE 20 MG CAPSULE.DR GT SCH (05:17)
[2021-12-05] MEDS: BLOOD SUGAR DIAGNOSTIC 1 EACH STRIP IN SCH ×3 (05:27→17:24)
[2021-12-05] MEDS: INSULIN ASPART/LISPRO 100 UNIT/ML CARTRIDGE SQ PRN (05:28)
[2021-12-05 07:44] VITALS: BP 109/67
[2021-12-05] MEDS: HYDROGEN PEROXIDE 480 ML BOTTLE TP SCH ×2 (09:11→20:01)
[2021-12-05] MEDS: MULTIVIT W/MINERALS 1 TAB TABLET GT SCH (09:17)
[2021-12-05] MEDS: LEVETIRACETAM SOL (5 ML) 100 MG/ML UDC GT SCH ×2 (09:17→21:25)
[2021-12-05] MEDS: FERROUS SULFATE - FOR SA ONLY 330 MG/7.5 ML UDC GT SCH (09:17)
[2021-12-05] MEDS: DILTIAZEM HCL 30 MG TABLET GT SCH ×2 (09:17→21:24)
[2021-12-05] MEDS: LISINOPRIL (5MG) 5 MG TABLET GT SCH (09:17)
[2021-12-05] MEDS: ZINC SULFATE 220 MG CAPSULE GT SCH (09:17)
[2021-12-05] MEDS: ACIDOPHILUS/BULGARICUS 1 EACH TAB.CHEW GT SCH ×2 (09:17→17:24)
[2021-12-05] MEDS: VITAMINS A AND D 56.7 GM TUBE TP SCH ×4 (09:17→21:25)
[2021-12-05] MEDS: DOCUSATE SODIUM LIQ 100 MG/10 ML UDC GT SCH ×2 (09:17→17:23)
[2021-12-05] MEDS: ASCORBIC ACID 500 MG TABLET GT SCH (09:17)
[2021-12-05] MEDS: SITAGLIPTIN PHOSPHATE 50 MG TABLET GT SCH (09:17)
[2021-12-05] MEDS: GLUCERNA 1.2 1,000 ML BOTTLE GT PRN (13:05)
[2021-12-05 19:30] VITALS: BP 114/66
[2021-12-05] MEDS: ATORVASTATIN 10 MG TABLET GT SCH (21:25)
[2021-12-05] MEDS: POLYETHYLENE GLYCOL 3350 17 GM POWD.PACK GT SCH (21:26)
[2021-12-05] MEDS: ENOXAPARIN SODIUM 40 MG/0.4 ML DISP.SYRIN SQ SCH (21:30)
[2021-12-05] MEDS: INSULIN GLARGINE,BASAGLAR 100 UNIT/ML INSULN.PEN SQ SCH (22:01)
[2021-12-06 00:49] VITALS: BP 110/69
[2021-12-06] MEDS: POLYVINYL ALCOHOL 15 ML BOTTLE EACHEYE SCH ×4 (00:57→18:00)
[2021-12-06] MEDS: BLOOD SUGAR DIAGNOSTIC 1 EACH STRIP IN SCH ×4 (00:57→18:00)
[2021-12-06] MEDS: INSULIN ASPART/LISPRO 100 UNIT/ML CARTRIDGE SQ PRN ×4 (00:57→19:06)
[2021-12-06] MEDS: ALBUTEROL FS 2.5 MG/3 ML VIAL.NEB NEB SCH ×4 (02:12→19:52)
[2021-12-06] MEDS: IPRATROPIUM NEB FS 0.5 MG/2.5 ML AMPUL.NEB NEB SCH ×4 (02:12→19:52)
[2021-12-06] MEDS: GLUCERNA 1.2 1,000 ML BOTTLE GT PRN (03:58)
[2021-12-06] MEDS: OMEPRAZOLE 20 MG CAPSULE.DR GT SCH (05:10)
[2021-12-06] MEDS: HYDROGEN PEROXIDE 480 ML BOTTLE TP SCH ×2 (07:46→21:38)
[2021-12-06 07:50] VITALS: BP 108/64
[2021-12-06] MEDS: DILTIAZEM HCL 30 MG TABLET GT SCH ×2 (08:46→21:00)
[2021-12-06] MEDS: DOCUSATE SODIUM LIQ 100 MG/10 ML UDC GT SCH ×2 (08:48→16:54)
[2021-12-06] MEDS: FERROUS SULFATE - FOR SA ONLY 330 MG/7.5 ML UDC GT SCH (08:50)
[2021-12-06] MEDS: SITAGLIPTIN PHOSPHATE 50 MG TABLET GT SCH (08:50)
[2021-12-06] MEDS: ACIDOPHILUS/BULGARICUS 1 EACH TAB.CHEW GT SCH ×2 (08:54→16:54)
[2021-12-06] MEDS: LEVETIRACETAM SOL (5 ML) 100 MG/ML UDC GT SCH ×2 (08:54→21:01)
[2021-12-06] MEDS: MULTIVIT W/MINERALS 1 TAB TABLET GT SCH (08:55)
[2021-12-06] MEDS: LISINOPRIL (5MG) 5 MG TABLET GT SCH (08:55)
[2021-12-06] MEDS: ASCORBIC ACID 500 MG TABLET GT SCH (08:55)
[2021-12-06] MEDS: VITAMINS A AND D 56.7 GM TUBE TP SCH ×4 (08:56→21:01)
[2021-12-06] MEDS: ZINC SULFATE 220 MG CAPSULE GT SCH (08:56)
[2021-12-06 14:44] VITALS: BP 145/79
[2021-12-06 20:17] VITALS: BP 126/86
[2021-12-06] MEDS: ATORVASTATIN 10 MG TABLET GT SCH (21:02)
[2021-12-06] MEDS: POLYETHYLENE GLYCOL 3350 17 GM POWD.PACK GT SCH (21:02)
[2021-12-06] MEDS: INSULIN GLARGINE,BASAGLAR 100 UNIT/ML INSULN.PEN SQ SCH (21:03)
[2021-12-06] MEDS: ENOXAPARIN SODIUM 40 MG/0.4 ML DISP.SYRIN SQ SCH (21:04)
[2021-12-07] MEDS: POLYVINYL ALCOHOL 15 ML BOTTLE EACHEYE SCH ×5 (00:40→23:50)
[2021-12-07] MEDS: BLOOD SUGAR DIAGNOSTIC 1 EACH STRIP IN SCH ×5 (00:40→23:50)
[2021-12-07] MEDS: INSULIN ASPART/LISPRO 100 UNIT/ML CARTRIDGE SQ PRN ×5 (00:41→23:51)
[2021-12-07 01:04] VITALS: BP 118/72
[2021-12-07] MEDS: ALBUTEROL FS 2.5 MG/3 ML VIAL.NEB NEB SCH ×4 (01:39→20:01)
[2021-12-07] MEDS: IPRATROPIUM NEB FS 0.5 MG/2.5 ML AMPUL.NEB NEB SCH ×4 (01:39→20:01)
[2021-12-07] MEDS: GLUCERNA 1.2 1,000 ML BOTTLE GT PRN (04:03)
[2021-12-07] MEDS: OMEPRAZOLE 20 MG CAPSULE.DR GT SCH (05:25)
[2021-12-07] MEDS: SITAGLIPTIN PHOSPHATE 50 MG TABLET GT SCH (08:05)
[2021-12-07] MEDS: FERROUS SULFATE - FOR SA ONLY 330 MG/7.5 ML UDC GT SCH (08:05)
[2021-12-07] MEDS: DOCUSATE SODIUM LIQ 100 MG/10 ML UDC GT SCH ×2 (08:05→17:20)
[2021-12-07] MEDS: DILTIAZEM HCL 30 MG TABLET GT SCH ×2 (08:05→21:00)
[2021-12-07] MEDS: ACIDOPHILUS/BULGARICUS 1 EACH TAB.CHEW GT SCH ×2 (08:05→17:20)
[2021-12-07] MEDS: LEVETIRACETAM SOL (5 ML) 100 MG/ML UDC GT SCH ×2 (08:05→21:53)
[2021-12-07] MEDS: VITAMINS A AND D 56.7 GM TUBE TP SCH ×4 (08:06→21:53)
[2021-12-07] MEDS: LISINOPRIL (5MG) 5 MG TABLET GT SCH (08:06)
[2021-12-07] MEDS: ASCORBIC ACID 500 MG TABLET GT SCH (08:06)
[2021-12-07] MEDS: MULTIVIT W/MINERALS 1 TAB TABLET GT SCH (08:06)
[2021-12-07] MEDS: ZINC SULFATE 220 MG CAPSULE GT SCH (08:06)
[2021-12-07] MEDS: HYDROGEN PEROXIDE 480 ML BOTTLE TP SCH ×2 (08:31→21:35)
[2021-12-07 11:46] VITALS: BP 132/94
[2021-12-07 11:53] VITALS: BP 143/72
[2021-12-07 19:07] VITALS: BP 101/58
[2021-12-07] MEDS: ATORVASTATIN 10 MG TABLET GT SCH (21:53)
[2021-12-07] MEDS: POLYETHYLENE GLYCOL 3350 17 GM POWD.PACK GT SCH (21:53)
[2021-12-07] MEDS: INSULIN GLARGINE,BASAGLAR 100 UNIT/ML INSULN.PEN SQ SCH (21:54)
[2021-12-07] MEDS: ENOXAPARIN SODIUM 40 MG/0.4 ML DISP.SYRIN SQ SCH (21:54)
[2021-12-08] MEDS: ALBUTEROL FS 2.5 MG/3 ML VIAL.NEB NEB SCH ×4 (02:05→20:25)
[2021-12-08] MEDS: IPRATROPIUM NEB FS 0.5 MG/2.5 ML AMPUL.NEB NEB SCH ×4 (02:05→20:25)
[2021-12-08] MEDS: OMEPRAZOLE 20 MG CAPSULE.DR GT SCH (05:48)
[2021-12-08] MEDS: BLOOD SUGAR DIAGNOSTIC 1 EACH STRIP IN SCH ×4 (05:48→23:43)
[2021-12-08] MEDS: INSULIN ASPART/LISPRO 100 UNIT/ML CARTRIDGE SQ PRN ×4 (05:48→23:44)
[2021-12-08] MEDS: POLYVINYL ALCOHOL 15 ML BOTTLE EACHEYE SCH ×4 (05:48→23:43)
[2021-12-08] MEDS: GLUCERNA 1.2 1,000 ML BOTTLE GT PRN ×2 (05:49→23:54)
--- NOTE | 2021-12-08 06:42 | NUR ---
RT Patient remains stable on 28% cool aerosol throughout the shift, no respiratory distress noted. Trach tube midline and secured, will continue to monitor. Addendum: 12/08/21 at 0643 by SHYANN BARRETT RT Amended: Links added.
[2021-12-08 07:20] VITALS: BP 147/78
[2021-12-08] MEDS: HYDROGEN PEROXIDE 480 ML BOTTLE TP SCH ×2 (08:05→21:37)
[2021-12-08] MEDS: DILTIAZEM HCL 30 MG TABLET GT SCH ×2 (08:52→21:30)
[2021-12-08] MEDS: ZINC SULFATE 220 MG CAPSULE GT SCH (08:56)
[2021-12-08] MEDS: FERROUS SULFATE - FOR SA ONLY 330 MG/7.5 ML UDC GT SCH (08:56)
[2021-12-08] MEDS: MULTIVIT W/MINERALS 1 TAB TABLET GT SCH (08:56)
[2021-12-08] MEDS: LEVETIRACETAM SOL (5 ML) 100 MG/ML UDC GT SCH ×2 (08:56→21:30)
[2021-12-08] MEDS: VITAMINS A AND D 56.7 GM TUBE TP SCH ×4 (08:56→21:30)
[2021-12-08] MEDS: LISINOPRIL (5MG) 5 MG TABLET GT SCH (08:56)
[2021-12-08] MEDS: SITAGLIPTIN PHOSPHATE 50 MG TABLET GT SCH (08:56)
[2021-12-08] MEDS: DOCUSATE SODIUM LIQ 100 MG/10 ML UDC GT SCH ×2 (08:56→17:39)
[2021-12-08] MEDS: ACIDOPHILUS/BULGARICUS 1 EACH TAB.CHEW GT SCH ×2 (08:56→17:39)
[2021-12-08] MEDS: ASCORBIC ACID 500 MG TABLET GT SCH (08:56)
[2021-12-08 12:19] VITALS: BP 121/81
--- NOTE | 2021-12-08 16:07 | NUR ---
PATIENT RECEIVED ON COOL AEROSOL @ 28%. HAS A TRACH PORTEX 9 UNCUFFED. AIRWAY PATENT AND SECURE. Q6 HHN TXS TOLERATING WELL WITH NO ADVERSE REACTION NOTED. AMBU BAG AND EMERGENCY TRACH AT THE BEDSIDE. SMALL YELLOW THIN SECRETIONS NOTED.
[2021-12-08 20:21] VITALS: BP 128/71
--- NOTE | 2021-12-08 20:40 | NUR ---
RT RECEIVED PT ON CA 28% 5LPM. NO RESP DISTRESS. SPO2 100%. TOLERATES CURRENT SETTINGS. BREATHING TX GIVEN AND TOLERATED. SUCTION WITH MODERATE THIN SECRETIONS. TRACH IS SECURED AND PATENT. SPARE TRACH AND AMBU BAG ARE BEDSIDE.
[2021-12-08] MEDS: INSULIN GLARGINE,BASAGLAR 100 UNIT/ML INSULN.PEN SQ SCH (21:30)
[2021-12-08] MEDS: ATORVASTATIN 10 MG TABLET GT SCH (21:30)
[2021-12-08] MEDS: POLYETHYLENE GLYCOL 3350 17 GM POWD.PACK GT SCH (21:30)
[2021-12-08] MEDS: ENOXAPARIN SODIUM 40 MG/0.4 ML DISP.SYRIN SQ SCH (21:31)
[2021-12-09] MEDS: IPRATROPIUM NEB FS 0.5 MG/2.5 ML AMPUL.NEB NEB SCH ×4 (02:19→20:23)
[2021-12-09] MEDS: ALBUTEROL FS 2.5 MG/3 ML VIAL.NEB NEB SCH ×4 (02:19→20:23)
[2021-12-09] MEDS: POLYVINYL ALCOHOL 15 ML BOTTLE EACHEYE SCH ×4 (05:53→23:41)
[2021-12-09] MEDS: BLOOD SUGAR DIAGNOSTIC 1 EACH STRIP IN SCH ×4 (05:53→23:41)
[2021-12-09] MEDS: OMEPRAZOLE 20 MG CAPSULE.DR GT SCH (05:53)
[2021-12-09] MEDS: INSULIN ASPART/LISPRO 100 UNIT/ML CARTRIDGE SQ PRN ×4 (05:54→23:42)
[2021-12-09 07:15] VITALS: BP 130/74
[2021-12-09] MEDS: HYDROGEN PEROXIDE 480 ML BOTTLE TP SCH ×2 (08:23→21:56)
[2021-12-09] MEDS: ACIDOPHILUS/BULGARICUS 1 EACH TAB.CHEW GT SCH ×2 (09:15→17:12)
[2021-12-09] MEDS: FERROUS SULFATE - FOR SA ONLY 330 MG/7.5 ML UDC GT SCH (09:15)
[2021-12-09] MEDS: DOCUSATE SODIUM LIQ 100 MG/10 ML UDC GT SCH ×2 (09:15→17:12)
[2021-12-09] MEDS: DILTIAZEM HCL 30 MG TABLET GT SCH ×2 (09:15→20:07)
[2021-12-09] MEDS: LEVETIRACETAM SOL (5 ML) 100 MG/ML UDC GT SCH ×2 (09:15→20:07)
[2021-12-09] MEDS: SITAGLIPTIN PHOSPHATE 50 MG TABLET GT SCH (09:15)
[2021-12-09] MEDS: LISINOPRIL (5MG) 5 MG TABLET GT SCH (09:15)
[2021-12-09] MEDS: MULTIVIT W/MINERALS 1 TAB TABLET GT SCH (09:16)
[2021-12-09] MEDS: ZINC SULFATE 220 MG CAPSULE GT SCH (09:16)
[2021-12-09] MEDS: VITAMINS A AND D 56.7 GM TUBE TP SCH ×4 (09:16→20:08)
[2021-12-09] MEDS: ASCORBIC ACID 500 MG TABLET GT SCH (09:16)
[2021-12-09 20:01] VITALS: BP 128/77
--- NOTE | 2021-12-09 20:56 | NUR ---
RT RECEIVED PT ON CA 28% 5LPM. NO RESP DISTRESS. SPO2 98%. TOLERATES CURRENT SETTINGS. BREATHING TX GIVEN AND TOLERATED. SUCTION WITH MODERATE THIN SECRETIONS. TRACH IS SECURED AND PATENT. SPARE TRACH AND AMBU BAG ARE BEDSIDE.
[2021-12-09] MEDS: ENOXAPARIN SODIUM 40 MG/0.4 ML DISP.SYRIN SQ SCH (21:12)
[2021-12-09] MEDS: ATORVASTATIN 10 MG TABLET GT SCH (21:12)
[2021-12-09] MEDS: POLYETHYLENE GLYCOL 3350 17 GM POWD.PACK GT SCH (21:12)
[2021-12-09] MEDS: INSULIN GLARGINE,BASAGLAR 100 UNIT/ML INSULN.PEN SQ SCH (21:25)
[2021-12-09] MEDS: GLUCERNA 1.2 1,000 ML BOTTLE GT PRN (23:41)
[2021-12-10 00:09] VITALS: BP 128/77
[2021-12-10] MEDS: ALBUTEROL FS 2.5 MG/3 ML VIAL.NEB NEB SCH ×4 (02:21→20:29)
[2021-12-10] MEDS: IPRATROPIUM NEB FS 0.5 MG/2.5 ML AMPUL.NEB NEB SCH ×4 (02:21→20:29)
[2021-12-10] MEDS: POLYVINYL ALCOHOL 15 ML BOTTLE EACHEYE SCH ×4 (05:03→23:26)
[2021-12-10] MEDS: OMEPRAZOLE 20 MG CAPSULE.DR GT SCH (05:04)
[2021-12-10] MEDS: BLOOD SUGAR DIAGNOSTIC 1 EACH STRIP IN SCH ×4 (05:04→23:26)
[2021-12-10] MEDS: INSULIN ASPART/LISPRO 100 UNIT/ML CARTRIDGE SQ PRN ×4 (05:04→23:27)
[2021-12-10 07:30] VITALS: BP 123/78
[2021-12-10] MEDS: HYDROGEN PEROXIDE 480 ML BOTTLE TP SCH ×2 (09:00→21:19)
[2021-12-10] MEDS: DILTIAZEM HCL 30 MG TABLET GT SCH ×2 (09:20→21:05)
[2021-12-10] MEDS: DOCUSATE SODIUM LIQ 100 MG/10 ML UDC GT SCH ×2 (09:21→17:45)
[2021-12-10] MEDS: SITAGLIPTIN PHOSPHATE 50 MG TABLET GT SCH (09:21)
[2021-12-10] MEDS: MULTIVIT W/MINERALS 1 TAB TABLET GT SCH (09:21)
[2021-12-10] MEDS: ACIDOPHILUS/BULGARICUS 1 EACH TAB.CHEW GT SCH ×2 (09:21→17:46)
[2021-12-10] MEDS: ASCORBIC ACID 500 MG TABLET GT SCH (09:21)
[2021-12-10] MEDS: LEVETIRACETAM SOL (5 ML) 100 MG/ML UDC GT SCH ×2 (09:21→21:05)
[2021-12-10] MEDS: LISINOPRIL (5MG) 5 MG TABLET GT SCH (09:21)
[2021-12-10] MEDS: FERROUS SULFATE - FOR SA ONLY 330 MG/7.5 ML UDC GT SCH (09:21)
[2021-12-10] MEDS: ZINC SULFATE 220 MG CAPSULE GT SCH (09:22)
[2021-12-10] MEDS: VITAMINS A AND D 56.7 GM TUBE TP SCH ×4 (09:22→21:05)
[2021-12-10 13:24] VITALS: BP 119/66
[2021-12-10] MEDS: GLUCERNA 1.2 1,000 ML BOTTLE GT PRN (17:46)
[2021-12-10 20:23] VITALS: BP 126/57
[2021-12-10] MEDS: ATORVASTATIN 10 MG TABLET GT SCH (21:05)
[2021-12-10] MEDS: ENOXAPARIN SODIUM 40 MG/0.4 ML DISP.SYRIN SQ SCH (21:06)
[2021-12-10] MEDS: POLYETHYLENE GLYCOL 3350 17 GM POWD.PACK GT SCH (21:06)
[2021-12-10] MEDS: INSULIN GLARGINE,BASAGLAR 100 UNIT/ML INSULN.PEN SQ SCH (21:46)
[2021-12-11] MEDS: IPRATROPIUM NEB FS 0.5 MG/2.5 ML AMPUL.NEB NEB SCH ×4 (01:59→19:21)
[2021-12-11] MEDS: ALBUTEROL FS 2.5 MG/3 ML VIAL.NEB NEB SCH ×4 (01:59→19:21)
[2021-12-11] MEDS: OMEPRAZOLE 20 MG CAPSULE.DR GT SCH (05:28)
[2021-12-11] MEDS: INSULIN ASPART/LISPRO 100 UNIT/ML CARTRIDGE SQ PRN ×3 (05:28→18:24)
[2021-12-11] MEDS: POLYVINYL ALCOHOL 15 ML BOTTLE EACHEYE SCH ×3 (05:28→18:23)
[2021-12-11] MEDS: BLOOD SUGAR DIAGNOSTIC 1 EACH STRIP IN SCH ×3 (05:28→18:23)
[2021-12-11 05:35] VITALS: BP 132/76
[2021-12-11 07:07] VITALS: BP 126/72
[2021-12-11] MEDS: LEVETIRACETAM SOL (5 ML) 100 MG/ML UDC GT SCH ×2 (08:47→21:23)
[2021-12-11] MEDS: DOCUSATE SODIUM LIQ 100 MG/10 ML UDC GT SCH ×2 (08:47→16:57)
[2021-12-11] MEDS: DILTIAZEM HCL 30 MG TABLET GT SCH ×2 (08:47→21:00)
[2021-12-11] MEDS: FERROUS SULFATE - FOR SA ONLY 330 MG/7.5 ML UDC GT SCH (08:47)
[2021-12-11] MEDS: MULTIVIT W/MINERALS 1 TAB TABLET GT SCH (08:47)
[2021-12-11] MEDS: ACIDOPHILUS/BULGARICUS 1 EACH TAB.CHEW GT SCH ×2 (08:47→16:57)
[2021-12-11] MEDS: LISINOPRIL (5MG) 5 MG TABLET GT SCH (08:47)
[2021-12-11] MEDS: SITAGLIPTIN PHOSPHATE 50 MG TABLET GT SCH (08:47)
[2021-12-11] MEDS: ZINC SULFATE 220 MG CAPSULE GT SCH (08:48)
[2021-12-11] MEDS: ASCORBIC ACID 500 MG TABLET GT SCH (08:48)
[2021-12-11] MEDS: HYDROGEN PEROXIDE 480 ML BOTTLE TP SCH ×2 (09:00→19:21)
[2021-12-11] MEDS: VITAMINS A AND D 56.7 GM TUBE TP SCH ×4 (09:35→21:24)
[2021-12-11 12:23] VITALS: BP 123/76
[2021-12-11] MEDS: GLUCERNA 1.2 1,000 ML BOTTLE GT PRN (15:03)
[2021-12-11 20:10] VITALS: BP 107/60
[2021-12-11] MEDS: POLYETHYLENE GLYCOL 3350 17 GM POWD.PACK GT SCH (21:24)
[2021-12-11] MEDS: ATORVASTATIN 10 MG TABLET GT SCH (21:24)
[2021-12-11] MEDS: INSULIN GLARGINE,BASAGLAR 100 UNIT/ML INSULN.PEN SQ SCH (21:25)
[2021-12-11] MEDS: ENOXAPARIN SODIUM 40 MG/0.4 ML DISP.SYRIN SQ SCH (21:26)
[2021-12-12] MEDS: POLYVINYL ALCOHOL 15 ML BOTTLE EACHEYE SCH ×4 (00:18→17:11)
[2021-12-12] MEDS: BLOOD SUGAR DIAGNOSTIC 1 EACH STRIP IN SCH ×4 (00:19→18:20)
[2021-12-12] MEDS: INSULIN ASPART/LISPRO 100 UNIT/ML CARTRIDGE SQ PRN ×4 (00:20→18:21)
[2021-12-12 01:03] VITALS: BP 112/65
[2021-12-12] MEDS: IPRATROPIUM NEB FS 0.5 MG/2.5 ML AMPUL.NEB NEB SCH ×4 (01:05→18:40)
[2021-12-12] MEDS: ALBUTEROL FS 2.5 MG/3 ML VIAL.NEB NEB SCH ×4 (01:05→18:40)
[2021-12-12] MEDS: OMEPRAZOLE 20 MG CAPSULE.DR GT SCH (05:23)
[2021-12-12 06:32] VITALS: BP 115/79
[2021-12-12] MEDS: GLUCERNA 1.2 1,000 ML BOTTLE GT PRN (06:41)
[2021-12-12 07:31] VITALS: BP 137/76
[2021-12-12] MEDS: HYDROGEN PEROXIDE 480 ML BOTTLE TP SCH ×2 (08:06→20:03)
[2021-12-12] MEDS: ACIDOPHILUS/BULGARICUS 1 EACH TAB.CHEW GT SCH ×2 (09:02→17:11)
[2021-12-12] MEDS: DOCUSATE SODIUM LIQ 100 MG/10 ML UDC GT SCH ×2 (09:02→17:11)
[2021-12-12] MEDS: DILTIAZEM HCL 30 MG TABLET GT SCH ×2 (09:02→21:00)
[2021-12-12] MEDS: LEVETIRACETAM SOL (5 ML) 100 MG/ML UDC GT SCH ×2 (09:02→21:00)
[2021-12-12] MEDS: FERROUS SULFATE - FOR SA ONLY 330 MG/7.5 ML UDC GT SCH (09:02)
[2021-12-12] MEDS: SITAGLIPTIN PHOSPHATE 50 MG TABLET GT SCH (09:02)
[2021-12-12] MEDS: ZINC SULFATE 220 MG CAPSULE GT SCH (09:03)
[2021-12-12] MEDS: ASCORBIC ACID 500 MG TABLET GT SCH (09:03)
[2021-12-12] MEDS: LISINOPRIL (5MG) 5 MG TABLET GT SCH (09:03)
[2021-12-12] MEDS: VITAMINS A AND D 56.7 GM TUBE TP SCH ×4 (09:03→21:00)
[2021-12-12] MEDS: MULTIVIT W/MINERALS 1 TAB TABLET GT SCH (09:03)
--- NOTE | 2021-12-12 12:00 | NUR ---
[employer] F[employer] reported that she noted sore to patients' left buttock and left lower buttock, assessed patients' left buttock, noted skin tear to left buttock and open sore to left lower buttock, surrounding area of left buttock has redness. No drainage noted at this time, no sings of infection. Applied calazime for skin barrier, has new treatment order. Wound consult josé miguel monday. New orders noted and carried out. Keep off pressure to left buttock at all times. Kept patient dry and clean at all times. Patient kept safe and comfortable.
[2021-12-12 12:18] VITALS: BP 130/69
--- NOTE | 2021-12-12 16:52 | NUR ---
RT NOTE Patient received on Cool aerosol, tolerating well. Trach tube in place, patent, and secured with trach tie. Suctioned moderate, thick, pale, yellow secretions via trach. Tolerate HHN tx well. Ambu bag, and back up trach by the bedside. Patient is stable at this time. Addendum: 12/12/21 at 1652 by MARY RODRIGUEZ RT Amended: Links added.
[2021-12-12 19:16] VITALS: BP 108/56
[2021-12-12] MEDS: POLYETHYLENE GLYCOL 3350 17 GM POWD.PACK GT SCH (22:29)
[2021-12-12] MEDS: ATORVASTATIN 10 MG TABLET GT SCH (22:29)
[2021-12-12] MEDS: INSULIN GLARGINE,BASAGLAR 100 UNIT/ML INSULN.PEN SQ SCH (22:43)
[2021-12-12] MEDS: ENOXAPARIN SODIUM 40 MG/0.4 ML DISP.SYRIN SQ SCH (22:44)
[2021-12-13 00:26] VITALS: BP 122/61
[2021-12-13] MEDS: ALBUTEROL FS 2.5 MG/3 ML VIAL.NEB NEB SCH ×4 (01:31→20:05)
[2021-12-13] MEDS: IPRATROPIUM NEB FS 0.5 MG/2.5 ML AMPUL.NEB NEB SCH ×4 (01:31→20:05)
[2021-12-13] MEDS: POLYVINYL ALCOHOL 15 ML BOTTLE EACHEYE SCH ×5 (05:58→23:53)
[2021-12-13] MEDS: OMEPRAZOLE 20 MG CAPSULE.DR GT SCH (05:58)
[2021-12-13] MEDS: BLOOD SUGAR DIAGNOSTIC 1 EACH STRIP IN SCH ×5 (05:58→23:53)
[2021-12-13] MEDS: GLUCERNA 1.2 1,000 ML BOTTLE GT PRN (06:22)
--- NOTE | 2021-12-13 07:06 | NUR ---
WOUND CARE CONSULT: RECEIVED CONSULT FOR LEFT LOWER BUTTOCK OPEN AREA. PT HAS HISTORY OF SCARRING TO LEFT BUTTOCK AREA. DR GRAY SURGICAL TEAM FOLLOWING PT. DEFER TO SURGICAL TEAM FOR WOUND TREATMENT PLAN. ALL SKIN PROTECTION MEASURES IN PLACE AND DISCUSSED WITH NURSING STAFF. MD IN AGREEMENT WITH PLAN OF CARE.
[2021-12-13 07:26] VITALS: BP 140/75
[2021-12-13] MEDS: FERROUS SULFATE - FOR SA ONLY 330 MG/7.5 ML UDC GT SCH (08:46)
[2021-12-13] MEDS: SITAGLIPTIN PHOSPHATE 50 MG TABLET GT SCH (08:46)
[2021-12-13] MEDS: DOCUSATE SODIUM LIQ 100 MG/10 ML UDC GT SCH ×2 (08:46→16:18)
[2021-12-13] MEDS: DILTIAZEM HCL 30 MG TABLET GT SCH ×2 (08:46→21:00)
[2021-12-13] MEDS: LEVETIRACETAM SOL (5 ML) 100 MG/ML UDC GT SCH ×2 (08:46→21:49)
[2021-12-13] MEDS: LISINOPRIL (5MG) 5 MG TABLET GT SCH (08:47)
[2021-12-13] MEDS: ACIDOPHILUS/BULGARICUS 1 EACH TAB.CHEW GT SCH ×2 (08:47→16:18)
[2021-12-13] MEDS: ZINC SULFATE 220 MG CAPSULE GT SCH (08:48)
[2021-12-13] MEDS: MULTIVIT W/MINERALS 1 TAB TABLET GT SCH (08:48)
[2021-12-13] MEDS: ASCORBIC ACID 500 MG TABLET GT SCH (08:48)
[2021-12-13] MEDS: HYDROGEN PEROXIDE 480 ML BOTTLE TP SCH ×2 (08:49→21:18)
[2021-12-13] MEDS: VITAMINS A AND D 56.7 GM TUBE TP SCH ×4 (08:50→21:49)
[2021-12-13] MEDS: NEOMY SULF/BACITRAC ZN/POLY 15 GM TUBE TP SCH (08:50)
[2021-12-13] MEDS ORDERED: HYDROGEL DRESSING 90 GM TUBE TP SCH (09:00)
[2021-12-13] MEDS: INSULIN ASPART/LISPRO 100 UNIT/ML CARTRIDGE SQ PRN ×2 (12:17→18:00)
[2021-12-13 13:36] VITALS: BP 141/61
[2021-12-13] MEDS ORDERED: THERAHONEY GEL 1.5 OZ TUBE TP PRN (15:30)
[2021-12-13] MEDS ORDERED: ZINC OXIDE 30 GM TUBE TP PRN (15:30)
--- NOTE | 2021-12-13 16:44 | NUR ---
Seen by IVAN Grace. 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 She ordered to apply Therahoney on wound bed and zinc oxide on periwound. Notified pt's daughter.
[2021-12-13 20:25] VITALS: BP 103/60
[2021-12-13] MEDS: THERAHONEY GEL 1.5 OZ TUBE TP SCH (21:49)
[2021-12-13] MEDS: ATORVASTATIN 10 MG TABLET GT SCH (21:49)
[2021-12-13] MEDS: ZINC OXIDE 56.7 GM TUBE TP SCH (21:49)
[2021-12-13] MEDS: POLYETHYLENE GLYCOL 3350 17 GM POWD.PACK GT SCH (21:49)
[2021-12-13] MEDS: INSULIN GLARGINE,BASAGLAR 100 UNIT/ML INSULN.PEN SQ SCH (21:50)
[2021-12-13] MEDS: ENOXAPARIN SODIUM 40 MG/0.4 ML DISP.SYRIN SQ SCH (21:51)
[2021-12-14] MEDS: GLUCERNA 1.2 1,000 ML BOTTLE GT PRN ×2 (00:51→22:44)
[2021-12-14] MEDS: ALBUTEROL FS 2.5 MG/3 ML VIAL.NEB NEB SCH ×4 (01:46→20:05)
[2021-12-14] MEDS: IPRATROPIUM NEB FS 0.5 MG/2.5 ML AMPUL.NEB NEB SCH ×4 (01:46→20:05)
[2021-12-14] MEDS: POLYVINYL ALCOHOL 15 ML BOTTLE EACHEYE SCH ×3 (05:49→17:16)
[2021-12-14] MEDS: BLOOD SUGAR DIAGNOSTIC 1 EACH STRIP IN SCH ×3 (05:50→17:16)
[2021-12-14] MEDS: OMEPRAZOLE 20 MG CAPSULE.DR GT SCH (05:50)
[2021-12-14 07:37] VITALS: BP 100/61
[2021-12-14] MEDS: DILTIAZEM HCL 30 MG TABLET GT SCH ×2 (08:26→21:00)
[2021-12-14] MEDS: ACIDOPHILUS/BULGARICUS 1 EACH TAB.CHEW GT SCH ×2 (08:26→17:16)
[2021-12-14] MEDS: FERROUS SULFATE - FOR SA ONLY 330 MG/7.5 ML UDC GT SCH (08:26)
[2021-12-14] MEDS: LISINOPRIL (5MG) 5 MG TABLET GT SCH (08:26)
[2021-12-14] MEDS: ASCORBIC ACID 500 MG TABLET GT SCH (08:26)
[2021-12-14] MEDS: MULTIVIT W/MINERALS 1 TAB TABLET GT SCH (08:26)
[2021-12-14] MEDS: SITAGLIPTIN PHOSPHATE 50 MG TABLET GT SCH (08:26)
[2021-12-14] MEDS: ZINC SULFATE 220 MG CAPSULE GT SCH (08:26)
[2021-12-14] MEDS: LEVETIRACETAM SOL (5 ML) 100 MG/ML UDC GT SCH ×2 (08:26→21:57)
[2021-12-14] MEDS: DOCUSATE SODIUM LIQ 100 MG/10 ML UDC GT SCH ×2 (08:26→17:16)
[2021-12-14] MEDS: NEOMY SULF/BACITRAC ZN/POLY 15 GM TUBE TP SCH (08:27)
[2021-12-14] MEDS: THERAHONEY GEL 1.5 OZ TUBE TP SCH ×2 (08:27→21:58)
[2021-12-14] MEDS: ZINC OXIDE 56.7 GM TUBE TP SCH ×2 (08:27→21:58)
[2021-12-14] MEDS: VITAMINS A AND D 56.7 GM TUBE TP SCH ×4 (08:27→21:58)
[2021-12-14] MEDS: HYDROGEN PEROXIDE 480 ML BOTTLE TP SCH ×2 (09:08→21:12)
[2021-12-14] MEDS: INSULIN ASPART/LISPRO 100 UNIT/ML CARTRIDGE SQ PRN ×2 (11:40→17:15)
[2021-12-14 11:55] VITALS: BP 118/71
[2021-12-14 19:48] VITALS: BP 98/63
[2021-12-14 20:31] VITALS: BP 139/66
[2021-12-14] MEDS: ATORVASTATIN 10 MG TABLET GT SCH (21:58)
[2021-12-14] MEDS: POLYETHYLENE GLYCOL 3350 17 GM POWD.PACK GT SCH (21:58)
[2021-12-14] MEDS: INSULIN GLARGINE,BASAGLAR 100 UNIT/ML INSULN.PEN SQ SCH (22:00)
[2021-12-14] MEDS: ENOXAPARIN SODIUM 40 MG/0.4 ML DISP.SYRIN SQ SCH (22:00)
[2021-12-15] MEDS: POLYVINYL ALCOHOL 15 ML BOTTLE EACHEYE SCH ×4 (00:06→17:51)
[2021-12-15] MEDS: BLOOD SUGAR DIAGNOSTIC 1 EACH STRIP IN SCH ×4 (00:07→18:04)
[2021-12-15] MEDS: ALBUTEROL FS 2.5 MG/3 ML VIAL.NEB NEB SCH ×4 (01:43→19:38)
[2021-12-15] MEDS: IPRATROPIUM NEB FS 0.5 MG/2.5 ML AMPUL.NEB NEB SCH ×4 (01:43→19:38)
--- NOTE | 2021-12-15 04:56 | NUR ---
RT Patient remains stable on 28% cool aerosol throughout the shift, no respiratory distress noted. Trach tube midline and secured, will continue to monitor. Addendum: 12/15/21 at 0456 by SHYANN BARRETT RT Amended: Links added.
[2021-12-15] MEDS: OMEPRAZOLE 20 MG CAPSULE.DR GT SCH (05:38)
[2021-12-15] MEDS: HYDROGEN PEROXIDE 480 ML BOTTLE TP SCH ×2 (08:58→21:00)
[2021-12-15] MEDS: PROSOURCE / PROSTAT (PYXIS) 30 ML UDC GT SCH (09:36)
[2021-12-15] MEDS: MULTIVIT W/MINERALS 1 TAB TABLET GT SCH (09:36)
[2021-12-15] MEDS: NEOMY SULF/BACITRAC ZN/POLY 15 GM TUBE TP SCH (09:36)
[2021-12-15] MEDS: ZINC SULFATE 220 MG CAPSULE GT SCH (09:36)
[2021-12-15] MEDS: ASCORBIC ACID 500 MG TABLET GT SCH (09:36)
[2021-12-15] MEDS: SITAGLIPTIN PHOSPHATE 50 MG TABLET GT SCH (09:37)
[2021-12-15] MEDS: ACIDOPHILUS/BULGARICUS 1 EACH TAB.CHEW GT SCH ×2 (09:37→17:51)
[2021-12-15] MEDS: LEVETIRACETAM SOL (5 ML) 100 MG/ML UDC GT SCH ×2 (09:37→21:26)
[2021-12-15] MEDS: DILTIAZEM HCL 30 MG TABLET GT SCH ×2 (09:37→21:26)
[2021-12-15] MEDS: DOCUSATE SODIUM LIQ 100 MG/10 ML UDC GT SCH ×2 (09:37→17:51)
[2021-12-15] MEDS: VITAMINS A AND D 56.7 GM TUBE TP SCH ×4 (09:37→21:27)
[2021-12-15] MEDS: THERAHONEY GEL 1.5 OZ TUBE TP SCH ×2 (09:37→21:26)
[2021-12-15] MEDS: LISINOPRIL (5MG) 5 MG TABLET GT SCH (09:37)
[2021-12-15] MEDS: FERROUS SULFATE - FOR SA ONLY 330 MG/7.5 ML UDC GT SCH (09:37)
[2021-12-15] MEDS: ZINC OXIDE 56.7 GM TUBE TP SCH ×2 (09:38→21:27)
[2021-12-15 10:23] VITALS: BP 140/81
[2021-12-15] MEDS: INSULIN ASPART/LISPRO 100 UNIT/ML CARTRIDGE SQ PRN ×2 (12:52→18:05)
[2021-12-15 20:06] VITALS: BP 113/63
[2021-12-15] MEDS: ATORVASTATIN 10 MG TABLET GT SCH (21:27)
[2021-12-15] MEDS: ENOXAPARIN SODIUM 40 MG/0.4 ML DISP.SYRIN SQ SCH (21:27)
[2021-12-15] MEDS: POLYETHYLENE GLYCOL 3350 17 GM POWD.PACK GT SCH (21:27)
[2021-12-15] MEDS: INSULIN GLARGINE,BASAGLAR 100 UNIT/ML INSULN.PEN SQ SCH (21:54)
[2021-12-16] MEDS: BLOOD SUGAR DIAGNOSTIC 1 EACH STRIP IN SCH ×4 (00:15→17:32)
[2021-12-16] MEDS: POLYVINYL ALCOHOL 15 ML BOTTLE EACHEYE SCH ×4 (00:15→17:32)
[2021-12-16] MEDS: INSULIN ASPART/LISPRO 100 UNIT/ML CARTRIDGE SQ PRN ×4 (00:16→17:33)
[2021-12-16] MEDS: IPRATROPIUM NEB FS 0.5 MG/2.5 ML AMPUL.NEB NEB SCH ×4 (01:50→20:18)
[2021-12-16] MEDS: ALBUTEROL FS 2.5 MG/3 ML VIAL.NEB NEB SCH ×4 (01:50→20:18)
[2021-12-16] MEDS: GLUCERNA 1.2 1,000 ML BOTTLE GT PRN (05:46)
[2021-12-16] MEDS: OMEPRAZOLE 20 MG CAPSULE.DR GT SCH (05:46)
[2021-12-16 07:16] VITALS: BP 116/60
[2021-12-16] MEDS: HYDROGEN PEROXIDE 480 ML BOTTLE TP SCH ×2 (08:22→20:18)
[2021-12-16] MEDS: LISINOPRIL (5MG) 5 MG TABLET GT SCH (08:48)
[2021-12-16] MEDS: DILTIAZEM HCL 30 MG TABLET GT SCH ×2 (08:48→21:00)
[2021-12-16] MEDS: LEVETIRACETAM SOL (5 ML) 100 MG/ML UDC GT SCH ×2 (08:48→21:31)
[2021-12-16] MEDS: SITAGLIPTIN PHOSPHATE 50 MG TABLET GT SCH (08:48)
[2021-12-16] MEDS: MULTIVIT W/MINERALS 1 TAB TABLET GT SCH (08:48)
[2021-12-16] MEDS: FERROUS SULFATE - FOR SA ONLY 330 MG/7.5 ML UDC GT SCH (08:48)
[2021-12-16] MEDS: DOCUSATE SODIUM LIQ 100 MG/10 ML UDC GT SCH ×2 (08:48→17:32)
[2021-12-16] MEDS: ACIDOPHILUS/BULGARICUS 1 EACH TAB.CHEW GT SCH ×2 (08:48→17:32)
[2021-12-16] MEDS: PROSOURCE / PROSTAT (PYXIS) 30 ML UDC GT SCH (08:48)
[2021-12-16] MEDS: ZINC SULFATE 220 MG CAPSULE GT SCH (08:49)
[2021-12-16] MEDS: THERAHONEY GEL 1.5 OZ TUBE TP SCH ×2 (08:49→21:32)
[2021-12-16] MEDS: ASCORBIC ACID 500 MG TABLET GT SCH (08:49)
[2021-12-16] MEDS: NEOMY SULF/BACITRAC ZN/POLY 15 GM TUBE TP SCH (08:49)
[2021-12-16] MEDS: ZINC OXIDE 56.7 GM TUBE TP SCH ×2 (08:50→21:32)
[2021-12-16] MEDS: VITAMINS A AND D 56.7 GM TUBE TP SCH ×4 (08:50→21:32)
[2021-12-16 12:39] VITALS: BP 102/74
[2021-12-16 19:49] VITALS: BP 102/61
[2021-12-16] MEDS: POLYETHYLENE GLYCOL 3350 17 GM POWD.PACK GT SCH (21:32)
[2021-12-16] MEDS: ATORVASTATIN 10 MG TABLET GT SCH (21:32)
[2021-12-16] MEDS: INSULIN GLARGINE,BASAGLAR 100 UNIT/ML INSULN.PEN SQ SCH (21:33)
[2021-12-16] MEDS: ENOXAPARIN SODIUM 40 MG/0.4 ML DISP.SYRIN SQ SCH (21:33)
[2021-12-17 00:03] VITALS: BP 97/57
[2021-12-17] MEDS: BLOOD SUGAR DIAGNOSTIC 1 EACH STRIP IN SCH ×4 (00:17→17:22)
[2021-12-17] MEDS: POLYVINYL ALCOHOL 15 ML BOTTLE EACHEYE SCH ×4 (00:17→17:22)
[2021-12-17] MEDS: INSULIN ASPART/LISPRO 100 UNIT/ML CARTRIDGE SQ PRN ×4 (00:18→17:25)
[2021-12-17] MEDS: ALBUTEROL FS 2.5 MG/3 ML VIAL.NEB NEB SCH ×4 (02:17→20:05)
[2021-12-17] MEDS: IPRATROPIUM NEB FS 0.5 MG/2.5 ML AMPUL.NEB NEB SCH ×4 (02:17→20:05)
[2021-12-17] MEDS: OMEPRAZOLE 20 MG CAPSULE.DR GT SCH (05:28)
[2021-12-17] MEDS: GLUCERNA 1.2 1,000 ML BOTTLE GT PRN (05:29)
[2021-12-17 07:50] VITALS: BP 107/73
[2021-12-17] MEDS: DILTIAZEM HCL 30 MG TABLET GT SCH ×2 (09:00→21:00)
--- NOTE | 2021-12-17 09:10 | NUR ---
RT Received patient on ordered settings: cool aerosol FiO2 28% 5 LPM. Tolerating current settings well with an SPO2 of 99% on initial assessment. No respiratory distress noted. Breathing tx given and tolerated with no adverse reactions. Suctioned with minimal thick secretions. Trach is secured and patent. Emergency trach and ambu-bag are at bedside.
[2021-12-17] MEDS: HYDROGEN PEROXIDE 480 ML BOTTLE TP SCH ×2 (09:19→21:19)
[2021-12-17] MEDS: FERROUS SULFATE - FOR SA ONLY 330 MG/7.5 ML UDC GT SCH (09:33)
[2021-12-17] MEDS: SITAGLIPTIN PHOSPHATE 50 MG TABLET GT SCH (09:33)
[2021-12-17] MEDS: DOCUSATE SODIUM LIQ 100 MG/10 ML UDC GT SCH ×2 (09:33→17:21)
[2021-12-17] MEDS: PROSOURCE / PROSTAT (PYXIS) 30 ML UDC GT SCH (09:34)
[2021-12-17] MEDS: ASCORBIC ACID 500 MG TABLET GT SCH (09:34)
[2021-12-17] MEDS: ACIDOPHILUS/BULGARICUS 1 EACH TAB.CHEW GT SCH ×2 (09:34→17:21)
[2021-12-17] MEDS: MULTIVIT W/MINERALS 1 TAB TABLET GT SCH (09:34)
[2021-12-17] MEDS: NEOMY SULF/BACITRAC ZN/POLY 15 GM TUBE TP SCH (09:34)
[2021-12-17] MEDS: ZINC OXIDE 56.7 GM TUBE TP SCH ×2 (09:34→21:28)
[2021-12-17] MEDS: LISINOPRIL (5MG) 5 MG TABLET GT SCH (09:34)
[2021-12-17] MEDS: VITAMINS A AND D 56.7 GM TUBE TP SCH ×4 (09:34→21:28)
[2021-12-17] MEDS: THERAHONEY GEL 1.5 OZ TUBE TP SCH ×2 (09:34→21:28)
[2021-12-17] MEDS: LEVETIRACETAM SOL (5 ML) 100 MG/ML UDC GT SCH ×2 (09:34→21:28)
[2021-12-17] MEDS: ZINC SULFATE 220 MG CAPSULE GT SCH (09:34)
[2021-12-17 14:37] VITALS: BP 119/67
[2021-12-17 19:04] VITALS: BP 100/57
--- NOTE | 2021-12-17 20:06 | NUR ---
Patient received on CA 28% 5L. Q6 breathing treatment given, tolerated well without adverse effect. Airway patent and secured, suction PRN. Spare trach and ambu bag at bedside. No respiratory distress noted at this time, will continue to monitor t/o shift.
[2021-12-17] MEDS: ATORVASTATIN 10 MG TABLET GT SCH (21:28)
[2021-12-17] MEDS: POLYETHYLENE GLYCOL 3350 17 GM POWD.PACK GT SCH (21:28)
[2021-12-17] MEDS: INSULIN GLARGINE,BASAGLAR 100 UNIT/ML INSULN.PEN SQ SCH (21:29)
[2021-12-17] MEDS: ENOXAPARIN SODIUM 40 MG/0.4 ML DISP.SYRIN SQ SCH (21:40)
[2021-12-18 00:22] VITALS: BP 114/74
[2021-12-18] MEDS: POLYVINYL ALCOHOL 15 ML BOTTLE EACHEYE SCH ×5 (00:39→23:23)
[2021-12-18] MEDS: BLOOD SUGAR DIAGNOSTIC 1 EACH STRIP IN SCH ×5 (00:39→23:23)
[2021-12-18] MEDS: INSULIN ASPART/LISPRO 100 UNIT/ML CARTRIDGE SQ PRN ×5 (00:41→23:23)
[2021-12-18] MEDS: ALBUTEROL FS 2.5 MG/3 ML VIAL.NEB NEB SCH ×4 (01:44→20:06)
[2021-12-18] MEDS: IPRATROPIUM NEB FS 0.5 MG/2.5 ML AMPUL.NEB NEB SCH ×4 (01:44→20:06)
[2021-12-18] MEDS: GLUCERNA 1.2 1,000 ML BOTTLE GT PRN ×2 (02:00→17:29)
[2021-12-18] MEDS: OMEPRAZOLE 20 MG CAPSULE.DR GT SCH (05:35)
[2021-12-18 07:18] VITALS: BP 104/54
[2021-12-18] MEDS: DILTIAZEM HCL 30 MG TABLET GT SCH ×2 (09:00→20:02)
[2021-12-18] MEDS: PROSOURCE / PROSTAT (PYXIS) 30 ML UDC GT SCH (09:20)
[2021-12-18] MEDS: FERROUS SULFATE - FOR SA ONLY 330 MG/7.5 ML UDC GT SCH (09:20)
[2021-12-18] MEDS: DOCUSATE SODIUM LIQ 100 MG/10 ML UDC GT SCH ×2 (09:20→17:15)
[2021-12-18] MEDS: ASCORBIC ACID 500 MG TABLET GT SCH (09:20)
[2021-12-18] MEDS: LEVETIRACETAM SOL (5 ML) 100 MG/ML UDC GT SCH ×2 (09:20→20:02)
[2021-12-18] MEDS: MULTIVIT W/MINERALS 1 TAB TABLET GT SCH (09:20)
[2021-12-18] MEDS: SITAGLIPTIN PHOSPHATE 50 MG TABLET GT SCH (09:20)
[2021-12-18] MEDS: ACIDOPHILUS/BULGARICUS 1 EACH TAB.CHEW GT SCH ×2 (09:20→17:15)
[2021-12-18] MEDS: LISINOPRIL (5MG) 5 MG TABLET GT SCH (09:20)
[2021-12-18] MEDS: VITAMINS A AND D 56.7 GM TUBE TP SCH ×4 (09:21→20:02)
[2021-12-18] MEDS: NEOMY SULF/BACITRAC ZN/POLY 15 GM TUBE TP SCH (09:21)
[2021-12-18] MEDS: THERAHONEY GEL 1.5 OZ TUBE TP SCH ×2 (09:21→20:02)
[2021-12-18] MEDS: ZINC OXIDE 56.7 GM TUBE TP SCH ×2 (09:21→20:02)
[2021-12-18] MEDS: ZINC SULFATE 220 MG CAPSULE GT SCH (09:21)
[2021-12-18] MEDS: HYDROGEN PEROXIDE 480 ML BOTTLE TP SCH ×2 (09:52→21:14)
--- NOTE | 2021-12-18 09:53 | NUR ---
RT Pt received on CA 28% 5L. breathing treatment given, tolerated well without adverse effect. Airway patent and secured, suction PRN. Spare trach and ambu bag at bedside. No respiratory distress noted at this time, will continue to monitor.
[2021-12-18 12:54] VITALS: BP 102/64
[2021-12-18 19:33] VITALS: BP 134/77
[2021-12-18] MEDS: ATORVASTATIN 10 MG TABLET GT SCH (21:10)
[2021-12-18] MEDS: ENOXAPARIN SODIUM 40 MG/0.4 ML DISP.SYRIN SQ SCH (21:10)
[2021-12-18] MEDS: POLYETHYLENE GLYCOL 3350 17 GM POWD.PACK GT SCH (21:10)
[2021-12-18] MEDS: INSULIN GLARGINE,BASAGLAR 100 UNIT/ML INSULN.PEN SQ SCH (21:11)
[2021-12-18 23:42] VITALS: BP 99/64
[2021-12-19] MEDS: IPRATROPIUM NEB FS 0.5 MG/2.5 ML AMPUL.NEB NEB SCH ×4 (01:46→20:02)
[2021-12-19] MEDS: ALBUTEROL FS 2.5 MG/3 ML VIAL.NEB NEB SCH ×4 (01:46→20:02)
--- NOTE | 2021-12-19 05:07 | NUR ---
RT Patient remains stable on 28% cool aerosol throughout the shift, no respiratory distress noted. Trach tube midline and secured, will continue to monitor. Addendum: 12/19/21 at 0507 by SHYANN BARRETT RT Amended: Links added.
[2021-12-19] MEDS: POLYVINYL ALCOHOL 15 ML BOTTLE EACHEYE SCH ×3 (05:15→17:01)
[2021-12-19] MEDS: OMEPRAZOLE 20 MG CAPSULE.DR GT SCH (05:16)
[2021-12-19] MEDS: BLOOD SUGAR DIAGNOSTIC 1 EACH STRIP IN SCH ×3 (05:41→17:51)
[2021-12-19] MEDS: INSULIN ASPART/LISPRO 100 UNIT/ML CARTRIDGE SQ PRN ×3 (05:42→17:52)
[2021-12-19 07:11] VITALS: BP 107/70
[2021-12-19] MEDS: HYDROGEN PEROXIDE 480 ML BOTTLE TP SCH ×2 (08:20→21:23)
[2021-12-19] MEDS: DILTIAZEM HCL 30 MG TABLET GT SCH ×2 (09:00→21:00)
[2021-12-19] MEDS: FERROUS SULFATE - FOR SA ONLY 330 MG/7.5 ML UDC GT SCH (09:22)
[2021-12-19] MEDS: PROSOURCE / PROSTAT (PYXIS) 30 ML UDC GT SCH (09:22)
[2021-12-19] MEDS: ASCORBIC ACID 500 MG TABLET GT SCH (09:22)
[2021-12-19] MEDS: LISINOPRIL (5MG) 5 MG TABLET GT SCH (09:22)
[2021-12-19] MEDS: MULTIVIT W/MINERALS 1 TAB TABLET GT SCH (09:22)
[2021-12-19] MEDS: ACIDOPHILUS/BULGARICUS 1 EACH TAB.CHEW GT SCH ×2 (09:22→17:01)
[2021-12-19] MEDS: SITAGLIPTIN PHOSPHATE 50 MG TABLET GT SCH (09:22)
[2021-12-19] MEDS: NEOMY SULF/BACITRAC ZN/POLY 15 GM TUBE TP SCH (09:22)
[2021-12-19] MEDS: DOCUSATE SODIUM LIQ 100 MG/10 ML UDC GT SCH ×2 (09:22→17:01)
[2021-12-19] MEDS: VITAMINS A AND D 56.7 GM TUBE TP SCH ×4 (09:22→21:37)
[2021-12-19] MEDS: LEVETIRACETAM SOL (5 ML) 100 MG/ML UDC GT SCH ×2 (09:22→21:36)
[2021-12-19] MEDS: THERAHONEY GEL 1.5 OZ TUBE TP SCH ×2 (09:22→21:36)
[2021-12-19] MEDS: ZINC SULFATE 220 MG CAPSULE GT SCH (09:22)
[2021-12-19] MEDS: ZINC OXIDE 56.7 GM TUBE TP SCH ×2 (09:23→21:37)
[2021-12-19 12:25] VITALS: BP 117/74
[2021-12-19] MEDS: GLUCERNA 1.2 1,000 ML BOTTLE GT PRN (17:01)
[2021-12-19 20:00] VITALS: BP 108/62
[2021-12-19] MEDS: ATORVASTATIN 10 MG TABLET GT SCH (21:37)
[2021-12-19] MEDS: POLYETHYLENE GLYCOL 3350 17 GM POWD.PACK GT SCH (21:41)
[2021-12-19] MEDS: INSULIN GLARGINE,BASAGLAR 100 UNIT/ML INSULN.PEN SQ SCH (21:42)
[2021-12-19] MEDS: ENOXAPARIN SODIUM 40 MG/0.4 ML DISP.SYRIN SQ SCH (21:43)
[2021-12-20] MEDS: BLOOD SUGAR DIAGNOSTIC 1 EACH STRIP IN SCH ×5 (00:17→23:13)
[2021-12-20] MEDS: POLYVINYL ALCOHOL 15 ML BOTTLE EACHEYE SCH ×5 (00:17→23:13)
[2021-12-20] MEDS: ALBUTEROL FS 2.5 MG/3 ML VIAL.NEB NEB SCH ×4 (01:47→19:59)
[2021-12-20] MEDS: IPRATROPIUM NEB FS 0.5 MG/2.5 ML AMPUL.NEB NEB SCH ×4 (01:47→19:59)
[2021-12-20] MEDS: OMEPRAZOLE 20 MG CAPSULE.DR GT SCH (05:53)
[2021-12-20 07:22] VITALS: BP 105/63
[2021-12-20] MEDS: DILTIAZEM HCL 30 MG TABLET GT SCH ×2 (08:24→21:00)
[2021-12-20] MEDS: DOCUSATE SODIUM LIQ 100 MG/10 ML UDC GT SCH ×2 (08:27→16:50)
[2021-12-20] MEDS: SITAGLIPTIN PHOSPHATE 50 MG TABLET GT SCH (08:27)
[2021-12-20] MEDS: LEVETIRACETAM SOL (5 ML) 100 MG/ML UDC GT SCH ×2 (08:27→21:34)
[2021-12-20] MEDS: FERROUS SULFATE - FOR SA ONLY 330 MG/7.5 ML UDC GT SCH (08:27)
[2021-12-20] MEDS: LISINOPRIL (5MG) 5 MG TABLET GT SCH (08:28)
[2021-12-20] MEDS: ACIDOPHILUS/BULGARICUS 1 EACH TAB.CHEW GT SCH ×2 (08:28→16:50)
[2021-12-20] MEDS: ASCORBIC ACID 500 MG TABLET GT SCH (08:29)
[2021-12-20] MEDS: ZINC SULFATE 220 MG CAPSULE GT SCH (08:29)
[2021-12-20] MEDS: PROSOURCE / PROSTAT (PYXIS) 30 ML UDC GT SCH (08:29)
[2021-12-20] MEDS: MULTIVIT W/MINERALS 1 TAB TABLET GT SCH (08:29)
[2021-12-20] MEDS: NEOMY SULF/BACITRAC ZN/POLY 15 GM TUBE TP SCH (08:30)
[2021-12-20] MEDS: ZINC OXIDE 56.7 GM TUBE TP SCH ×2 (08:31→21:35)
[2021-12-20] MEDS: VITAMINS A AND D 56.7 GM TUBE TP SCH ×4 (08:31→21:35)
[2021-12-20] MEDS: THERAHONEY GEL 1.5 OZ TUBE TP SCH ×2 (08:31→21:35)
[2021-12-20] MEDS: HYDROGEN PEROXIDE 480 ML BOTTLE TP SCH ×2 (09:00→21:23)
[2021-12-20 12:29] VITALS: BP 106/68
[2021-12-20] MEDS: INSULIN ASPART/LISPRO 100 UNIT/ML CARTRIDGE SQ PRN ×2 (12:54→17:49)
[2021-12-20] MEDS: GLUCERNA 1.2 1,000 ML BOTTLE GT PRN (14:33)
[2021-12-20 20:30] VITALS: BP 104/69
[2021-12-20] MEDS: POLYETHYLENE GLYCOL 3350 17 GM POWD.PACK GT SCH (21:35)
[2021-12-20] MEDS: ATORVASTATIN 10 MG TABLET GT SCH (21:35)
[2021-12-20] MEDS: ENOXAPARIN SODIUM 40 MG/0.4 ML DISP.SYRIN SQ SCH (21:36)
[2021-12-20] MEDS: INSULIN GLARGINE,BASAGLAR 100 UNIT/ML INSULN.PEN SQ SCH (21:46)
[2021-12-21] MEDS: ALBUTEROL FS 2.5 MG/3 ML VIAL.NEB NEB SCH ×4 (01:33→20:13)
[2021-12-21] MEDS: IPRATROPIUM NEB FS 0.5 MG/2.5 ML AMPUL.NEB NEB SCH ×4 (01:33→20:13)
[2021-12-21] MEDS: POLYVINYL ALCOHOL 15 ML BOTTLE EACHEYE SCH ×3 (05:30→17:18)
[2021-12-21] MEDS: OMEPRAZOLE 20 MG CAPSULE.DR GT SCH (05:31)
[2021-12-21] MEDS: BLOOD SUGAR DIAGNOSTIC 1 EACH STRIP IN SCH ×3 (05:31→17:18)
--- NOTE | 2021-12-21 06:03 | NUR ---
RT Patient was stable on 28% cool aerosol throughout the shift, no respiratory distress noted. Trach tube midline and secured, will continue to monitor. Addendum: 12/21/21 at 0603 by SHYANN BARRETT RT Amended: Links added.
[2021-12-21 07:30] VITALS: BP 117/72
[2021-12-21] MEDS: ACIDOPHILUS/BULGARICUS 1 EACH TAB.CHEW GT SCH ×2 (08:13→16:12)
[2021-12-21] MEDS: DILTIAZEM HCL 30 MG TABLET GT SCH ×2 (08:13→21:49)
[2021-12-21] MEDS: LEVETIRACETAM SOL (5 ML) 100 MG/ML UDC GT SCH ×2 (08:13→21:49)
[2021-12-21] MEDS: DOCUSATE SODIUM LIQ 100 MG/10 ML UDC GT SCH ×2 (08:13→16:12)
[2021-12-21] MEDS: LISINOPRIL (5MG) 5 MG TABLET GT SCH (08:13)
[2021-12-21] MEDS: SITAGLIPTIN PHOSPHATE 50 MG TABLET GT SCH (08:13)
[2021-12-21] MEDS: PROSOURCE / PROSTAT (PYXIS) 30 ML UDC GT SCH (08:13)
[2021-12-21] MEDS: FERROUS SULFATE - FOR SA ONLY 330 MG/7.5 ML UDC GT SCH (08:13)
[2021-12-21] MEDS: ZINC SULFATE 220 MG CAPSULE GT SCH (08:14)
[2021-12-21] MEDS: ASCORBIC ACID 500 MG TABLET GT SCH (08:14)
[2021-12-21] MEDS: NEOMY SULF/BACITRAC ZN/POLY 15 GM TUBE TP SCH (08:14)
[2021-12-21] MEDS: VITAMINS A AND D 56.7 GM TUBE TP SCH ×4 (08:14→21:50)
[2021-12-21] MEDS: THERAHONEY GEL 1.5 OZ TUBE TP SCH ×2 (08:14→21:49)
[2021-12-21] MEDS: ZINC OXIDE 56.7 GM TUBE TP SCH ×2 (08:14→21:50)
[2021-12-21] MEDS: MULTIVIT W/MINERALS 1 TAB TABLET GT SCH (08:14)
[2021-12-21] MEDS: HYDROGEN PEROXIDE 480 ML BOTTLE TP SCH ×2 (08:20→21:32)
[2021-12-21] MEDS: INSULIN ASPART/LISPRO 100 UNIT/ML CARTRIDGE SQ PRN ×2 (12:18→17:19)
[2021-12-21 12:38] VITALS: BP 118/66
[2021-12-21] MEDS: GLUCERNA 1.2 1,000 ML BOTTLE GT PRN (15:39)
[2021-12-21 19:02] VITALS: BP 141/93
[2021-12-21] MEDS: ENOXAPARIN SODIUM 40 MG/0.4 ML DISP.SYRIN SQ SCH (21:50)
[2021-12-21] MEDS: POLYETHYLENE GLYCOL 3350 17 GM POWD.PACK GT SCH (21:50)
[2021-12-21] MEDS: ATORVASTATIN 10 MG TABLET GT SCH (21:50)
[2021-12-21] MEDS: INSULIN GLARGINE,BASAGLAR 100 UNIT/ML INSULN.PEN SQ SCH (22:16)
[2021-12-22] MEDS: POLYVINYL ALCOHOL 15 ML BOTTLE EACHEYE SCH ×5 (00:46→23:44)
[2021-12-22] MEDS: BLOOD SUGAR DIAGNOSTIC 1 EACH STRIP IN SCH ×5 (00:46→23:44)
[2021-12-22] MEDS: ALBUTEROL FS 2.5 MG/3 ML VIAL.NEB NEB SCH ×4 (02:22→20:28)
[2021-12-22] MEDS: IPRATROPIUM NEB FS 0.5 MG/2.5 ML AMPUL.NEB NEB SCH ×4 (02:22→20:28)
[2021-12-22] MEDS: OMEPRAZOLE 20 MG CAPSULE.DR GT SCH (05:40)
[2021-12-22 07:54] VITALS: BP 110/59
[2021-12-22] MEDS: HYDROGEN PEROXIDE 480 ML BOTTLE TP SCH ×2 (09:06→21:22)
--- NOTE | 2021-12-22 09:10 | NUR ---
Seen by Dr. Capone no new order given at this time.
[2021-12-22] MEDS: DILTIAZEM HCL 30 MG TABLET GT SCH ×2 (09:23→21:00)
[2021-12-22] MEDS: SITAGLIPTIN PHOSPHATE 50 MG TABLET GT SCH (09:23)
[2021-12-22] MEDS: ACIDOPHILUS/BULGARICUS 1 EACH TAB.CHEW GT SCH ×2 (09:23→17:17)
[2021-12-22] MEDS: DOCUSATE SODIUM LIQ 100 MG/10 ML UDC GT SCH ×2 (09:23→17:17)
[2021-12-22] MEDS: LEVETIRACETAM SOL (5 ML) 100 MG/ML UDC GT SCH ×2 (09:23→21:31)
[2021-12-22] MEDS: FERROUS SULFATE - FOR SA ONLY 330 MG/7.5 ML UDC GT SCH (09:23)
[2021-12-22] MEDS: LISINOPRIL (5MG) 5 MG TABLET GT SCH (09:24)
[2021-12-22] MEDS: PROSOURCE / PROSTAT (PYXIS) 30 ML UDC GT SCH (09:24)
[2021-12-22] MEDS: VITAMINS A AND D 56.7 GM TUBE TP SCH ×4 (09:24→21:32)
[2021-12-22] MEDS: THERAHONEY GEL 1.5 OZ TUBE TP SCH ×2 (09:24→21:32)
[2021-12-22] MEDS: ZINC OXIDE 56.7 GM TUBE TP SCH ×2 (09:24→21:32)
[2021-12-22] MEDS: MULTIVIT W/MINERALS 1 TAB TABLET GT SCH (09:24)
[2021-12-22] MEDS: ZINC SULFATE 220 MG CAPSULE GT SCH (09:24)
[2021-12-22] MEDS: ASCORBIC ACID 500 MG TABLET GT SCH (09:24)
[2021-12-22] MEDS: NEOMY SULF/BACITRAC ZN/POLY 15 GM TUBE TP SCH (09:24)
[2021-12-22 12:31] VITALS: BP 115/64
[2021-12-22] MEDS: INSULIN ASPART/LISPRO 100 UNIT/ML CARTRIDGE SQ PRN ×2 (12:44→23:45)
--- NOTE | 2021-12-22 16:04 | NUR ---
Family Invite to IDT: SW emailed the patient's DAUGHTER, NEELA to invite them to participate in 12/24/21 12:30p IDT meeting via phone conference. ORACIO will follow up accordingly.
[2021-12-22] MEDS: GLUCERNA 1.2 1,000 ML BOTTLE GT PRN (17:19)
[2021-12-22 20:29] VITALS: BP 99/61
--- NOTE | 2021-12-22 20:35 | NUR ---
RT Received patient on cool aerosol 28% 5 LPM as ordered. Asleep and tolerating well with an SPO2 of 98%. Nebulizer tx given and tolerated with no adverse reactions. Trach is secured and patent. Emergency trach and ambu-bag are bedside.
[2021-12-22] MEDS: ATORVASTATIN 10 MG TABLET GT SCH (21:32)
[2021-12-22] MEDS: POLYETHYLENE GLYCOL 3350 17 GM POWD.PACK GT SCH (21:32)
[2021-12-22] MEDS: INSULIN GLARGINE,BASAGLAR 100 UNIT/ML INSULN.PEN SQ SCH (21:33)
[2021-12-22] MEDS: ENOXAPARIN SODIUM 40 MG/0.4 ML DISP.SYRIN SQ SCH (21:33)
[2021-12-23] MEDS: IPRATROPIUM NEB FS 0.5 MG/2.5 ML AMPUL.NEB NEB SCH ×4 (02:02→19:42)
[2021-12-23] MEDS: ALBUTEROL FS 2.5 MG/3 ML VIAL.NEB NEB SCH ×4 (02:02→19:42)
[2021-12-23] MEDS: POLYVINYL ALCOHOL 15 ML BOTTLE EACHEYE SCH ×4 (05:39→23:44)
[2021-12-23] MEDS: BLOOD SUGAR DIAGNOSTIC 1 EACH STRIP IN SCH ×4 (05:39→23:44)
[2021-12-23] MEDS: OMEPRAZOLE 20 MG CAPSULE.DR GT SCH (05:39)
[2021-12-23] MEDS: INSULIN ASPART/LISPRO 100 UNIT/ML CARTRIDGE SQ PRN ×4 (05:40→23:45)
[2021-12-23] MEDS: GLUCERNA 1.2 1,000 ML BOTTLE GT PRN (06:30)
[2021-12-23 07:56] VITALS: BP_SYST 118; BP_DIAS 74; BP_DIAS 78
[2021-12-23] MEDS: HYDROGEN PEROXIDE 480 ML BOTTLE TP SCH ×2 (08:19→21:37)
[2021-12-23] MEDS: LEVETIRACETAM SOL (5 ML) 100 MG/ML UDC GT SCH ×2 (09:19→20:40)
[2021-12-23] MEDS: DOCUSATE SODIUM LIQ 100 MG/10 ML UDC GT SCH ×2 (09:19→17:00)
[2021-12-23] MEDS: DILTIAZEM HCL 30 MG TABLET GT SCH ×2 (09:19→20:40)
[2021-12-23] MEDS: SITAGLIPTIN PHOSPHATE 50 MG TABLET GT SCH (09:19)
[2021-12-23] MEDS: FERROUS SULFATE - FOR SA ONLY 330 MG/7.5 ML UDC GT SCH (09:19)
[2021-12-23] MEDS: MULTIVIT W/MINERALS 1 TAB TABLET GT SCH (09:20)
[2021-12-23] MEDS: ZINC OXIDE 56.7 GM TUBE TP SCH ×2 (09:20→20:41)
[2021-12-23] MEDS: PROSOURCE / PROSTAT (PYXIS) 30 ML UDC GT SCH (09:20)
[2021-12-23] MEDS: ACIDOPHILUS/BULGARICUS 1 EACH TAB.CHEW GT SCH ×2 (09:20→17:00)
[2021-12-23] MEDS: VITAMINS A AND D 56.7 GM TUBE TP SCH ×4 (09:20→20:41)
[2021-12-23] MEDS: NEOMY SULF/BACITRAC ZN/POLY 15 GM TUBE TP SCH (09:20)
[2021-12-23] MEDS: LISINOPRIL (5MG) 5 MG TABLET GT SCH (09:20)
[2021-12-23] MEDS: ASCORBIC ACID 500 MG TABLET GT SCH (09:20)
[2021-12-23] MEDS: ZINC SULFATE 220 MG CAPSULE GT SCH (09:20)
[2021-12-23] MEDS: THERAHONEY GEL 1.5 OZ TUBE TP SCH ×2 (09:20→20:40)
[2021-12-23 12:12] VITALS: BP 125/76
--- NOTE | 2021-12-23 19:42 | NUR ---
Patient received on CA 28% 5LPM. Airway patent and secured. Q6 breathing tx given and tolerated well without adverse effect. Suction PRN. Spare trach and ambu bag at bedside. No respiratory distress noted, will continue to monitor t/o shift.
[2021-12-23 20:15] VITALS: BP 118/98
[2021-12-23] MEDS: INSULIN GLARGINE,BASAGLAR 100 UNIT/ML INSULN.PEN SQ SCH (21:07)
[2021-12-23] MEDS: POLYETHYLENE GLYCOL 3350 17 GM POWD.PACK GT SCH (21:07)
[2021-12-23] MEDS: ATORVASTATIN 10 MG TABLET GT SCH (21:07)
[2021-12-23] MEDS: ENOXAPARIN SODIUM 40 MG/0.4 ML DISP.SYRIN SQ SCH (21:07)
[2021-12-24 00:23] VITALS: BP 118/63
[2021-12-24] MEDS: IPRATROPIUM NEB FS 0.5 MG/2.5 ML AMPUL.NEB NEB SCH ×4 (01:41→18:46)
[2021-12-24] MEDS: ALBUTEROL FS 2.5 MG/3 ML VIAL.NEB NEB SCH ×4 (01:41→18:46)
[2021-12-24] MEDS: OMEPRAZOLE 20 MG CAPSULE.DR GT SCH (05:03)
[2021-12-24] MEDS: POLYVINYL ALCOHOL 15 ML BOTTLE EACHEYE SCH ×4 (05:03→23:53)
[2021-12-24] MEDS: GLUCERNA 1.2 1,000 ML BOTTLE GT PRN ×2 (05:04→23:53)
[2021-12-24] MEDS: BLOOD SUGAR DIAGNOSTIC 1 EACH STRIP IN SCH ×4 (05:05→23:56)
[2021-12-24] MEDS: INSULIN ASPART/LISPRO 100 UNIT/ML CARTRIDGE SQ PRN ×4 (05:05→23:56)
[2021-12-24 07:26] VITALS: BP 100/59
[2021-12-24] MEDS: HYDROGEN PEROXIDE 480 ML BOTTLE TP SCH ×2 (08:19→20:23)
[2021-12-24] MEDS: NEOMY SULF/BACITRAC ZN/POLY 15 GM TUBE TP SCH (09:17)
[2021-12-24] MEDS: FERROUS SULFATE - FOR SA ONLY 330 MG/7.5 ML UDC GT SCH (09:17)
[2021-12-24] MEDS: ASCORBIC ACID 500 MG TABLET GT SCH (09:17)
[2021-12-24] MEDS: ACIDOPHILUS/BULGARICUS 1 EACH TAB.CHEW GT SCH ×2 (09:17→16:40)
[2021-12-24] MEDS: SITAGLIPTIN PHOSPHATE 50 MG TABLET GT SCH (09:17)
[2021-12-24] MEDS: ZINC SULFATE 220 MG CAPSULE GT SCH (09:17)
[2021-12-24] MEDS: DOCUSATE SODIUM LIQ 100 MG/10 ML UDC GT SCH ×2 (09:17→16:40)
[2021-12-24] MEDS: VITAMINS A AND D 56.7 GM TUBE TP SCH ×4 (09:17→21:09)
[2021-12-24] MEDS: PROSOURCE / PROSTAT (PYXIS) 30 ML UDC GT SCH (09:17)
[2021-12-24] MEDS: THERAHONEY GEL 1.5 OZ TUBE TP SCH ×2 (09:17→21:09)
[2021-12-24] MEDS: DILTIAZEM HCL 30 MG TABLET GT SCH ×2 (09:17→21:09)
[2021-12-24] MEDS: LEVETIRACETAM SOL (5 ML) 100 MG/ML UDC GT SCH ×2 (09:17→21:09)
[2021-12-24] MEDS: MULTIVIT W/MINERALS 1 TAB TABLET GT SCH (09:17)
[2021-12-24] MEDS: LISINOPRIL (5MG) 5 MG TABLET GT SCH (09:17)
[2021-12-24] MEDS: ZINC OXIDE 56.7 GM TUBE TP SCH ×2 (09:18→21:09)
[2021-12-24 11:58] VITALS: BP 121/61
--- NOTE | 2021-12-24 14:03 | NUR ---
INTERDISCIPLINARY PLAN OF CARE CONFERENCE took place today. The patients responsible democrat, Kelly [phone] Capone and Interdisciplinary team discussed the plan of care in detail. Current orders as well as treatments and medications were reviewed.
[2021-12-24 19:15] VITALS: BP 110/64
[2021-12-24] MEDS: POLYETHYLENE GLYCOL 3350 17 GM POWD.PACK GT SCH (21:09)
[2021-12-24] MEDS: ENOXAPARIN SODIUM 40 MG/0.4 ML DISP.SYRIN SQ SCH (21:10)
[2021-12-24] MEDS: ATORVASTATIN 10 MG TABLET GT SCH (21:11)
[2021-12-24] MEDS: INSULIN GLARGINE,BASAGLAR 100 UNIT/ML INSULN.PEN SQ SCH (21:18)
[2021-12-25 00:26] VITALS: BP 104/70
[2021-12-25] MEDS: ALBUTEROL FS 2.5 MG/3 ML VIAL.NEB NEB SCH ×4 (00:39→20:27)
[2021-12-25] MEDS: IPRATROPIUM NEB FS 0.5 MG/2.5 ML AMPUL.NEB NEB SCH ×4 (00:39→20:27)
[2021-12-25] MEDS: POLYVINYL ALCOHOL 15 ML BOTTLE EACHEYE SCH ×4 (05:18→23:16)
[2021-12-25] MEDS: BLOOD SUGAR DIAGNOSTIC 1 EACH STRIP IN SCH ×4 (05:18→23:16)
[2021-12-25] MEDS: OMEPRAZOLE 20 MG CAPSULE.DR GT SCH (05:18)
[2021-12-25] MEDS: INSULIN ASPART/LISPRO 100 UNIT/ML CARTRIDGE SQ PRN ×4 (05:19→23:17)
[2021-12-25 06:50] LABS: BASOPHILS # (AUTO) 0.1 K/uL (0.0-0.2); BASOPHILS % (AUTO) 0.7 % (0.0-2.0); EOSINOPHILS % (AUTO) 2.3 % (0.0-6.0); HEMATOCRIT 40 % (33-45); HEMOGLOBIN 12.4 g/dL (11.5-14.8); LYMPHOCYTES % (AUTO) 36.3 % (20.0-44.0); MEAN CORPUSCULAR HGB CONC 31 g/dl (31.0-36.0); MEAN CORPUSCULAR VOLUME 97 fL (82-100); MONOCYTES # (AUTO) 0.7 K/uL (0.1-1.30); MONOCYTES % (AUTO) 8.9 % (2.0-12.0); NEUTROPHILS # (AUTO) 4.3 K/uL (1.8-8.9); NEUTROPHILS % (AUTO) 51.8 % (43.0-81.0); PLATELET COUNT (AUTO) 267 K/uL (150-450); RED BLOOD CELL COUNT(AUTO) 4.17 MIL/uL (4.0-5.2); WHITE BLOOD COUNT (AUTO) 8.2 K/uL (4.3-11.0)
[2021-12-25 07:08] LABS: CALCIUM, SERUM 9.1 mg/dL (8.5-10.1); MAGNESIUM 2.8 mg/dL (1.8-2.4); PHOSPHORUS 3.2 mg/dL (2.5-4.9); POTASSIUM 5.1 mmol/L (3.5-5.1)
[2021-12-25 07:35] VITALS: BP 109/68
[2021-12-25] MEDS: HYDROGEN PEROXIDE 480 ML BOTTLE TP SCH ×2 (08:27→21:20)
[2021-12-25] MEDS: DILTIAZEM HCL 30 MG TABLET GT SCH ×2 (09:00→20:41)
[2021-12-25] MEDS: DOCUSATE SODIUM LIQ 100 MG/10 ML UDC GT SCH ×2 (09:07→16:59)
[2021-12-25] MEDS: ACIDOPHILUS/BULGARICUS 1 EACH TAB.CHEW GT SCH ×2 (09:07→16:59)
[2021-12-25] MEDS: MULTIVIT W/MINERALS 1 TAB TABLET GT SCH (09:07)
[2021-12-25] MEDS: ASCORBIC ACID 500 MG TABLET GT SCH (09:07)
[2021-12-25] MEDS: SITAGLIPTIN PHOSPHATE 50 MG TABLET GT SCH (09:07)
[2021-12-25] MEDS: PROSOURCE / PROSTAT (PYXIS) 30 ML UDC GT SCH (09:07)
[2021-12-25] MEDS: FERROUS SULFATE - FOR SA ONLY 330 MG/7.5 ML UDC GT SCH (09:07)
[2021-12-25] MEDS: LISINOPRIL (5MG) 5 MG TABLET GT SCH (09:07)
[2021-12-25] MEDS: LEVETIRACETAM SOL (5 ML) 100 MG/ML UDC GT SCH ×2 (09:07→20:41)
[2021-12-25] MEDS: NEOMY SULF/BACITRAC ZN/POLY 15 GM TUBE TP SCH (09:07)
[2021-12-25] MEDS: ZINC SULFATE 220 MG CAPSULE GT SCH (09:07)
[2021-12-25] MEDS: THERAHONEY GEL 1.5 OZ TUBE TP SCH ×3 (09:08→20:41)
[2021-12-25] MEDS: VITAMINS A AND D 56.7 GM TUBE TP SCH ×4 (09:08→20:41)
[2021-12-25] MEDS: ZINC OXIDE 56.7 GM TUBE TP SCH ×2 (09:08→20:41)
[2021-12-25 12:13] VITALS: BP 137/84
[2021-12-25] MEDS: GLUCERNA 1.2 1,000 ML BOTTLE GT PRN (13:56)
[2021-12-25 19:27] VITALS: BP 129/57
[2021-12-25] MEDS ORDERED: THERAHONEY GEL 1.5 OZ TUBE TP PRN (20:30)
[2021-12-25] MEDS: ATORVASTATIN 10 MG TABLET GT SCH (21:02)
[2021-12-25] MEDS: POLYETHYLENE GLYCOL 3350 17 GM POWD.PACK GT SCH (21:02)
[2021-12-25] MEDS: ENOXAPARIN SODIUM 40 MG/0.4 ML DISP.SYRIN SQ SCH (21:03)
[2021-12-25] MEDS: INSULIN GLARGINE,BASAGLAR 100 UNIT/ML INSULN.PEN SQ SCH (21:03)
--- NOTE | 2021-12-25 22:28 | NUR ---
RT Patient was received on ordered settings: cool aerosol FiO2 28% at 5 LPM. Tolerating settings with an SPO2 of 99%. No respiratory distress or SOB noted during initial assessment. Nebulizer Tx given and tolerated with no adverse reactions noted. Patient suctioned with minimal thick secretions. Trach is secured and patent. Emergency trach and ambu-bag are bedside.
[2021-12-26 00:51] VITALS: BP 104/66
[2021-12-26] MEDS: ALBUTEROL FS 2.5 MG/3 ML VIAL.NEB NEB SCH ×4 (02:25→20:27)
[2021-12-26] MEDS: IPRATROPIUM NEB FS 0.5 MG/2.5 ML AMPUL.NEB NEB SCH ×4 (02:25→20:27)
--- NOTE | 2021-12-26 05:00 | NUR ---
RN NOTES PATIENT IN BED ASLEEP AND COMFORTABLE. AFEBRILE WITH NO S/S OF DISTRESS OBSERVED. NOTED WITH REOPENED COCCYX STAGE 4 WOUND, PHOTO TAKEN BY MORNING RN. WOUND TREATMENT RESTARTED WITH THERAHONEY ON WOUND BED AND ZINC OXIDE ON PERIWOUND EVERY SHIFT AND PRN. WOUND CONSULT ORDERED. MD NOTIFIED. REPOSITIONED EVERY 2HRS AND NEEDED. WILL CONTINUE TO MONITOR.
[2021-12-26] MEDS: OMEPRAZOLE 20 MG CAPSULE.DR GT SCH (05:16)
[2021-12-26] MEDS: POLYVINYL ALCOHOL 15 ML BOTTLE EACHEYE SCH ×3 (05:16→17:02)
[2021-12-26] MEDS: BLOOD SUGAR DIAGNOSTIC 1 EACH STRIP IN SCH ×3 (05:26→18:02)
[2021-12-26] MEDS: INSULIN ASPART/LISPRO 100 UNIT/ML CARTRIDGE SQ PRN ×3 (05:26→18:04)
[2021-12-26] MEDS: GLUCERNA 1.2 1,000 ML BOTTLE GT PRN (06:40)
[2021-12-26 07:36] VITALS: BP 106/64
[2021-12-26] MEDS: DILTIAZEM HCL 30 MG TABLET GT SCH ×2 (09:00→20:24)
[2021-12-26] MEDS: FERROUS SULFATE - FOR SA ONLY 330 MG/7.5 ML UDC GT SCH (09:04)
[2021-12-26] MEDS: DOCUSATE SODIUM LIQ 100 MG/10 ML UDC GT SCH ×2 (09:04→17:02)
[2021-12-26] MEDS: PROSOURCE / PROSTAT (PYXIS) 30 ML UDC GT SCH (09:05)
[2021-12-26] MEDS: ASCORBIC ACID 500 MG TABLET GT SCH (09:05)
[2021-12-26] MEDS: MULTIVIT W/MINERALS 1 TAB TABLET GT SCH (09:05)
[2021-12-26] MEDS: ACIDOPHILUS/BULGARICUS 1 EACH TAB.CHEW GT SCH ×2 (09:05→17:02)
[2021-12-26] MEDS: LEVETIRACETAM SOL (5 ML) 100 MG/ML UDC GT SCH ×2 (09:05→20:24)
[2021-12-26] MEDS: LISINOPRIL (5MG) 5 MG TABLET GT SCH (09:05)
[2021-12-26] MEDS: ZINC SULFATE 220 MG CAPSULE GT SCH (09:05)
[2021-12-26] MEDS: SITAGLIPTIN PHOSPHATE 50 MG TABLET GT SCH (09:05)
[2021-12-26] MEDS: NEOMY SULF/BACITRAC ZN/POLY 15 GM TUBE TP SCH (09:06)
[2021-12-26] MEDS: THERAHONEY GEL 1.5 OZ TUBE TP SCH ×4 (09:09→20:25)
[2021-12-26] MEDS: ZINC OXIDE 56.7 GM TUBE TP SCH ×2 (09:10→20:25)
[2021-12-26] MEDS: VITAMINS A AND D 56.7 GM TUBE TP SCH ×4 (09:10→20:25)
[2021-12-26] MEDS: HYDROGEN PEROXIDE 480 ML BOTTLE TP SCH ×2 (09:35→21:25)
[2021-12-26] MEDS ORDERED: ZINC OXIDE 30 GM TUBE TP PRN (11:00)
[2021-12-26 20:07] VITALS: BP 94/60
[2021-12-26] MEDS: ZINC OXIDE 30 GM TUBE TP SCH (20:25)
[2021-12-26] MEDS: POLYETHYLENE GLYCOL 3350 17 GM POWD.PACK GT SCH (21:06)
[2021-12-26] MEDS: INSULIN GLARGINE,BASAGLAR 100 UNIT/ML INSULN.PEN SQ SCH (21:06)
[2021-12-26] MEDS: ATORVASTATIN 10 MG TABLET GT SCH (21:06)
[2021-12-26] MEDS: ENOXAPARIN SODIUM 40 MG/0.4 ML DISP.SYRIN SQ SCH (21:07)
[2021-12-27] MEDS: POLYVINYL ALCOHOL 15 ML BOTTLE EACHEYE SCH ×4 (00:10→17:03)
[2021-12-27] MEDS: BLOOD SUGAR DIAGNOSTIC 1 EACH STRIP IN SCH ×4 (00:10→17:47)
[2021-12-27] MEDS: INSULIN ASPART/LISPRO 100 UNIT/ML CARTRIDGE SQ PRN ×4 (00:11→17:49)
[2021-12-27 00:25] VITALS: BP 139/84
[2021-12-27] MEDS: ALBUTEROL FS 2.5 MG/3 ML VIAL.NEB NEB SCH ×4 (02:21→19:41)
[2021-12-27] MEDS: IPRATROPIUM NEB FS 0.5 MG/2.5 ML AMPUL.NEB NEB SCH ×4 (02:21→19:41)
--- NOTE | 2021-12-27 02:21 | NUR ---
RT Patient was received on cool aerosol: FiO2 28% at 5 LPM. No respiratory distress or SOB noted during assessment. Patient tolerates current settings with an SPO2 of 99%. Q6 nebulizer treatments given and tolerated with no adverse reactions. Suctioned with minimal thick secretions. Trach is patent and secured. Emergency trach and ambu-bag are at the bedside.
[2021-12-27] MEDS: OMEPRAZOLE 20 MG CAPSULE.DR GT SCH (05:19)
--- NOTE | 2021-12-27 07:04 | NUR ---
WOUND CARE CONSULT: RECEIVED CONSULT FOR LEFT BUTTOCK AND SACRAL REOPENED STAGE 4 WOUNDS. DEFER TO SURGICAL TEAM CURRENTLY ON CASE. ALL SKIN PROTECTION MEASURES CURRENTLY IN PLACE. MD IN AGREEMENT WITH PLAN OF CARE.
[2021-12-27 07:38] VITALS: BP 127/71
--- NOTE | 2021-12-27 09:02 | NUR ---
RT Pt received on cool aerosol: FiO2 28% 5 LPM. No respiratory distress or SOB noted during assessment. TX given and tolerated with no adverse reactions. Suctioned with minimal thick secretions. Trach is patent and secured. Emergency trach and ambu-bag are at the bedside
[2021-12-27] MEDS: MULTIVIT W/MINERALS 1 TAB TABLET GT SCH (09:04)
[2021-12-27] MEDS: ASCORBIC ACID 500 MG TABLET GT SCH (09:04)
[2021-12-27] MEDS: PROSOURCE / PROSTAT (PYXIS) 30 ML UDC GT SCH (09:04)
[2021-12-27] MEDS: ZINC SULFATE 220 MG CAPSULE GT SCH (09:04)
[2021-12-27] MEDS: LISINOPRIL (5MG) 5 MG TABLET GT SCH (09:04)
[2021-12-27] MEDS: ZINC OXIDE 30 GM TUBE TP SCH (09:05)
[2021-12-27] MEDS: THERAHONEY GEL 1.5 OZ TUBE TP SCH ×4 (09:05→20:14)
[2021-12-27] MEDS: VITAMINS A AND D 56.7 GM TUBE TP SCH ×4 (09:05→20:15)
[2021-12-27] MEDS: ZINC OXIDE 56.7 GM TUBE TP SCH ×2 (09:06→20:15)
[2021-12-27] MEDS: FERROUS SULFATE - FOR SA ONLY 330 MG/7.5 ML UDC GT SCH (09:08)
[2021-12-27] MEDS: DOCUSATE SODIUM LIQ 100 MG/10 ML UDC GT SCH ×2 (09:08→17:03)
[2021-12-27] MEDS: SITAGLIPTIN PHOSPHATE 50 MG TABLET GT SCH (09:08)
[2021-12-27] MEDS: ACIDOPHILUS/BULGARICUS 1 EACH TAB.CHEW GT SCH ×2 (09:08→17:03)
[2021-12-27] MEDS: DILTIAZEM HCL 30 MG TABLET GT SCH ×2 (09:08→20:13)
[2021-12-27] MEDS: LEVETIRACETAM SOL (5 ML) 100 MG/ML UDC GT SCH ×2 (09:08→20:14)
[2021-12-27] MEDS: HYDROGEN PEROXIDE 480 ML BOTTLE TP SCH ×2 (09:17→21:18)
[2021-12-27 11:40] VITALS: BP 116/74
--- NOTE | 2021-12-27 16:25 | NUR ---
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 No full thickness loss of skin or tissue noted. Spoke with IVAN Grace. She said she will see pt tomorrow.
[2021-12-27] MEDS ORDERED: Z GUARD REMEDY 4 OZ OINT TP PRN (16:30)
[2021-12-27 19:08] VITALS: BP 106/53
--- NOTE | 2021-12-27 19:42 | NUR ---
Notified pt's daughter regarding sacrococcyx MASD.
[2021-12-27] MEDS: Z GUARD REMEDY 2 OZ OINT TP SCH (20:14)
[2021-12-27] MEDS: ATORVASTATIN 10 MG TABLET GT SCH (21:12)
[2021-12-27] MEDS: POLYETHYLENE GLYCOL 3350 17 GM POWD.PACK GT SCH (21:12)
[2021-12-27] MEDS: INSULIN GLARGINE,BASAGLAR 100 UNIT/ML INSULN.PEN SQ SCH (21:13)
[2021-12-27] MEDS: ENOXAPARIN SODIUM 40 MG/0.4 ML DISP.SYRIN SQ SCH (21:14)
[2021-12-28] MEDS: BLOOD SUGAR DIAGNOSTIC 1 EACH STRIP IN SCH ×4 (00:31→18:06)
[2021-12-28] MEDS: INSULIN ASPART/LISPRO 100 UNIT/ML CARTRIDGE SQ PRN ×4 (00:31→18:06)
[2021-12-28] MEDS: POLYVINYL ALCOHOL 15 ML BOTTLE EACHEYE SCH ×4 (00:31→18:06)
[2021-12-28 01:04] VITALS: BP 142/60
[2021-12-28] MEDS: ALBUTEROL FS 2.5 MG/3 ML VIAL.NEB NEB SCH ×4 (01:38→19:59)
[2021-12-28] MEDS: IPRATROPIUM NEB FS 0.5 MG/2.5 ML AMPUL.NEB NEB SCH ×4 (01:38→19:59)
[2021-12-28] MEDS: GLUCERNA 1.2 1,000 ML BOTTLE GT PRN ×2 (04:45→22:06)
[2021-12-28] MEDS: OMEPRAZOLE 20 MG CAPSULE.DR GT SCH (05:09)
[2021-12-28] MEDS: HYDROGEN PEROXIDE 480 ML BOTTLE TP SCH ×2 (07:16→21:00)
[2021-12-28 08:00] VITALS: BP 116/70
[2021-12-28] MEDS: DOCUSATE SODIUM LIQ 100 MG/10 ML UDC GT SCH ×2 (09:05→17:00)
[2021-12-28] MEDS: DILTIAZEM HCL 30 MG TABLET GT SCH ×2 (09:05→20:43)
[2021-12-28] MEDS: FERROUS SULFATE - FOR SA ONLY 330 MG/7.5 ML UDC GT SCH (09:05)
[2021-12-28] MEDS: THERAHONEY GEL 1.5 OZ TUBE TP SCH ×2 (09:06→20:44)
[2021-12-28] MEDS: SITAGLIPTIN PHOSPHATE 50 MG TABLET GT SCH (09:06)
[2021-12-28] MEDS: Z GUARD REMEDY 2 OZ OINT TP SCH ×2 (09:06→20:43)
[2021-12-28] MEDS: MULTIVIT W/MINERALS 1 TAB TABLET GT SCH (09:06)
[2021-12-28] MEDS: ASCORBIC ACID 500 MG TABLET GT SCH (09:06)
[2021-12-28] MEDS: LEVETIRACETAM SOL (5 ML) 100 MG/ML UDC GT SCH ×2 (09:06→20:43)
[2021-12-28] MEDS: ACIDOPHILUS/BULGARICUS 1 EACH TAB.CHEW GT SCH ×2 (09:06→17:00)
[2021-12-28] MEDS: PROSOURCE / PROSTAT (PYXIS) 30 ML UDC GT SCH ×2 (09:06→17:00)
[2021-12-28] MEDS: LISINOPRIL (5MG) 5 MG TABLET GT SCH (09:06)
[2021-12-28] MEDS: ZINC SULFATE 220 MG CAPSULE GT SCH (09:06)
[2021-12-28] MEDS: VITAMINS A AND D 56.7 GM TUBE TP SCH ×4 (09:07→20:44)
[2021-12-28] MEDS: ZINC OXIDE 56.7 GM TUBE TP SCH ×2 (09:07→20:44)
--- NOTE | 2021-12-28 15:30 | NUR ---
Seen by Dr. Capone new order given to increase Prostat to BID promote wound healing. Attempted to notify family but phone # cannot accept call at this time . SSD contacted family to inform that nursing is trying to reach her. She said that she can also be contacted with . Kelly informed of new order and condition of the wound, she requested she would like to speak with IVAN Oh before giving consent for debridement. Endorsed.
--- NOTE | 2021-12-28 16:27 | NUR ---
Seen and examined by IVAN Grace, she spoke with patient's daughter Kelly regarding debriding patient's L buttock wound address her questions and concerns. Daughter gave telephone consent for L buttock debridement.
[2021-12-28 19:11] VITALS: BP 119/66
[2021-12-28] MEDS: ATORVASTATIN 10 MG TABLET GT SCH (21:17)
[2021-12-28] MEDS: POLYETHYLENE GLYCOL 3350 17 GM POWD.PACK GT SCH (21:17)
[2021-12-28] MEDS: INSULIN GLARGINE,BASAGLAR 100 UNIT/ML INSULN.PEN SQ SCH (21:21)
[2021-12-28] MEDS: ENOXAPARIN SODIUM 40 MG/0.4 ML DISP.SYRIN SQ SCH (21:22)
[2021-12-28 23:05] VITALS: BP 131/76
[2021-12-29] MEDS: POLYVINYL ALCOHOL 15 ML BOTTLE EACHEYE SCH ×4 (00:36→18:14)
[2021-12-29] MEDS: BLOOD SUGAR DIAGNOSTIC 1 EACH STRIP IN SCH ×4 (00:36→18:14)
[2021-12-29] MEDS: INSULIN ASPART/LISPRO 100 UNIT/ML CARTRIDGE SQ PRN ×4 (00:37→18:15)
[2021-12-29] MEDS: ALBUTEROL FS 2.5 MG/3 ML VIAL.NEB NEB SCH ×4 (01:30→20:17)
[2021-12-29] MEDS: IPRATROPIUM NEB FS 0.5 MG/2.5 ML AMPUL.NEB NEB SCH ×4 (01:30→20:17)
[2021-12-29] MEDS: OMEPRAZOLE 20 MG CAPSULE.DR GT SCH (05:39)
[2021-12-29 07:32] VITALS: BP 108/67
[2021-12-29] MEDS: HYDROGEN PEROXIDE 480 ML BOTTLE TP SCH ×2 (08:03→21:00)
[2021-12-29] MEDS: DILTIAZEM HCL 30 MG TABLET GT SCH ×2 (09:00→21:41)
[2021-12-29] MEDS: DOCUSATE SODIUM LIQ 100 MG/10 ML UDC GT SCH ×2 (09:13→17:00)
[2021-12-29] MEDS: LEVETIRACETAM SOL (5 ML) 100 MG/ML UDC GT SCH ×2 (09:13→21:41)
[2021-12-29] MEDS: FERROUS SULFATE - FOR SA ONLY 330 MG/7.5 ML UDC GT SCH (09:13)
[2021-12-29] MEDS: SITAGLIPTIN PHOSPHATE 50 MG TABLET GT SCH (09:13)
[2021-12-29] MEDS: ZINC OXIDE 56.7 GM TUBE TP SCH ×2 (09:16→21:41)
[2021-12-29] MEDS: VITAMINS A AND D 56.7 GM TUBE TP SCH ×4 (09:16→21:41)
[2021-12-29] MEDS: ZINC SULFATE 220 MG CAPSULE GT SCH (09:16)
[2021-12-29] MEDS: ASCORBIC ACID 500 MG TABLET GT SCH (09:16)
[2021-12-29] MEDS: Z GUARD REMEDY 2 OZ OINT TP SCH ×2 (09:16→21:41)
[2021-12-29] MEDS: LISINOPRIL (5MG) 5 MG TABLET GT SCH (09:16)
[2021-12-29] MEDS: THERAHONEY GEL 1.5 OZ TUBE TP SCH ×2 (09:16→21:41)
[2021-12-29] MEDS: ACIDOPHILUS/BULGARICUS 1 EACH TAB.CHEW GT SCH ×2 (09:16→17:00)
[2021-12-29] MEDS: MULTIVIT W/MINERALS 1 TAB TABLET GT SCH (09:16)
[2021-12-29] MEDS: PROSOURCE / PROSTAT (PYXIS) 30 ML UDC GT SCH ×2 (09:16→17:00)
[2021-12-29 12:10] VITALS: BP 112/66
[2021-12-29] MEDS: GLUCERNA 1.2 1,000 ML BOTTLE GT PRN (18:15)
[2021-12-29 20:32] VITALS: BP 112/88
[2021-12-29] MEDS: ATORVASTATIN 10 MG TABLET GT SCH (21:41)
[2021-12-29] MEDS: POLYETHYLENE GLYCOL 3350 17 GM POWD.PACK GT SCH (21:41)
[2021-12-29] MEDS: INSULIN GLARGINE,BASAGLAR 100 UNIT/ML INSULN.PEN SQ SCH (21:42)
[2021-12-29] MEDS: ENOXAPARIN SODIUM 40 MG/0.4 ML DISP.SYRIN SQ SCH (21:43)
[2021-12-29 23:53] VITALS: BP 115/85
[2021-12-30] MEDS: POLYVINYL ALCOHOL 15 ML BOTTLE EACHEYE SCH ×5 (00:36→23:45)
[2021-12-30] MEDS: BLOOD SUGAR DIAGNOSTIC 1 EACH STRIP IN SCH ×5 (00:36→23:45)
[2021-12-30] MEDS: INSULIN ASPART/LISPRO 100 UNIT/ML CARTRIDGE SQ PRN ×5 (00:37→23:46)
[2021-12-30] MEDS: ALBUTEROL FS 2.5 MG/3 ML VIAL.NEB NEB SCH ×4 (01:53→20:26)
[2021-12-30] MEDS: IPRATROPIUM NEB FS 0.5 MG/2.5 ML AMPUL.NEB NEB SCH ×4 (01:53→20:26)
[2021-12-30] MEDS: OMEPRAZOLE 20 MG CAPSULE.DR GT SCH (05:37)
[2021-12-30] MEDS: GLUCERNA 1.2 1,000 ML BOTTLE GT PRN (05:38)
--- NOTE | 2021-12-30 06:21 | NUR ---
RT pt received on CA 28%. trach secure, airway patent. bilateral chest rise. no sob noted. spare trach and ambu bag at bedside. shift uneventful.
[2021-12-30 07:39] VITALS: BP 88/47
[2021-12-30] MEDS: HYDROGEN PEROXIDE 480 ML BOTTLE TP SCH ×2 (08:33→21:34)
[2021-12-30] MEDS: DILTIAZEM HCL 30 MG TABLET GT SCH ×2 (08:55→20:55)
[2021-12-30] MEDS: VITAMINS A AND D 56.7 GM TUBE TP SCH ×4 (08:56→20:55)
[2021-12-30] MEDS: LISINOPRIL (5MG) 5 MG TABLET GT SCH (08:56)
[2021-12-30] MEDS: ZINC OXIDE 56.7 GM TUBE TP SCH ×2 (08:56→20:55)
[2021-12-30] MEDS: THERAHONEY GEL 1.5 OZ TUBE TP SCH ×2 (08:56→20:55)
[2021-12-30] MEDS: Z GUARD REMEDY 2 OZ OINT TP SCH ×2 (08:56→20:55)
[2021-12-30] MEDS: LEVETIRACETAM SOL (5 ML) 100 MG/ML UDC GT SCH ×2 (08:56→20:55)
[2021-12-30] MEDS: PROSOURCE / PROSTAT (PYXIS) 30 ML UDC GT SCH ×2 (08:56→17:08)
[2021-12-30] MEDS: FERROUS SULFATE - FOR SA ONLY 330 MG/7.5 ML UDC GT SCH (08:56)
[2021-12-30] MEDS: DOCUSATE SODIUM LIQ 100 MG/10 ML UDC GT SCH ×2 (08:56→17:08)
[2021-12-30] MEDS: SITAGLIPTIN PHOSPHATE 50 MG TABLET GT SCH (08:56)
[2021-12-30] MEDS: MULTIVIT W/MINERALS 1 TAB TABLET GT SCH (08:56)
[2021-12-30] MEDS: ZINC SULFATE 220 MG CAPSULE GT SCH (08:56)
[2021-12-30] MEDS: ASCORBIC ACID 500 MG TABLET GT SCH (08:56)
[2021-12-30] MEDS: ACIDOPHILUS/BULGARICUS 1 EACH TAB.CHEW GT SCH ×2 (08:56→17:08)
[2021-12-30 12:32] VITALS: BP 102/54
[2021-12-30 19:53] VITALS: BP 96/56
[2021-12-30] MEDS: ENOXAPARIN SODIUM 40 MG/0.4 ML DISP.SYRIN SQ SCH (21:06)
[2021-12-30] MEDS: ATORVASTATIN 10 MG TABLET GT SCH (21:06)
[2021-12-30] MEDS: POLYETHYLENE GLYCOL 3350 17 GM POWD.PACK GT SCH (21:06)
[2021-12-30] MEDS: INSULIN GLARGINE,BASAGLAR 100 UNIT/ML INSULN.PEN SQ SCH (21:10)
[2021-12-31] VITALS: BP 128/60
[2021-12-31] MEDS: ALBUTEROL FS 2.5 MG/3 ML VIAL.NEB NEB SCH ×4 (02:19→20:29)
[2021-12-31] MEDS: IPRATROPIUM NEB FS 0.5 MG/2.5 ML AMPUL.NEB NEB SCH ×4 (02:19→20:29)
[2021-12-31] MEDS: BLOOD SUGAR DIAGNOSTIC 1 EACH STRIP IN SCH ×3 (05:19→17:56)
[2021-12-31] MEDS: POLYVINYL ALCOHOL 15 ML BOTTLE EACHEYE SCH ×3 (05:19→17:56)
[2021-12-31] MEDS: OMEPRAZOLE 20 MG CAPSULE.DR GT SCH (05:19)
[2021-12-31] MEDS: INSULIN ASPART/LISPRO 100 UNIT/ML CARTRIDGE SQ PRN ×3 (05:21→17:58)
[2021-12-31] MEDS: GLUCERNA 1.2 1,000 ML BOTTLE GT PRN (05:21)
[2021-12-31 07:37] VITALS: BP 118/69
[2021-12-31] MEDS: HYDROGEN PEROXIDE 480 ML BOTTLE TP SCH ×2 (09:16→21:16)
[2021-12-31] MEDS: FERROUS SULFATE - FOR SA ONLY 330 MG/7.5 ML UDC GT SCH (09:18)
[2021-12-31] MEDS: DOCUSATE SODIUM LIQ 100 MG/10 ML UDC GT SCH ×2 (09:18→17:56)
[2021-12-31] MEDS: MULTIVIT W/MINERALS 1 TAB TABLET GT SCH (09:18)
[2021-12-31] MEDS: ACIDOPHILUS/BULGARICUS 1 EACH TAB.CHEW GT SCH ×2 (09:18→17:56)
[2021-12-31] MEDS: ASCORBIC ACID 500 MG TABLET GT SCH (09:18)
[2021-12-31] MEDS: DILTIAZEM HCL 30 MG TABLET GT SCH ×2 (09:18→21:00)
[2021-12-31] MEDS: SITAGLIPTIN PHOSPHATE 50 MG TABLET GT SCH (09:18)
[2021-12-31] MEDS: LEVETIRACETAM SOL (5 ML) 100 MG/ML UDC GT SCH ×2 (09:18→21:11)
[2021-12-31] MEDS: LISINOPRIL (5MG) 5 MG TABLET GT SCH (09:18)
[2021-12-31] MEDS: ZINC SULFATE 220 MG CAPSULE GT SCH (09:18)
[2021-12-31] MEDS: PROSOURCE / PROSTAT (PYXIS) 30 ML UDC GT SCH ×2 (09:18→17:56)
[2021-12-31] MEDS: VITAMINS A AND D 56.7 GM TUBE TP SCH ×4 (09:19→21:12)
[2021-12-31] MEDS: Z GUARD REMEDY 2 OZ OINT TP SCH ×2 (09:19→21:12)
[2021-12-31] MEDS: ZINC OXIDE 56.7 GM TUBE TP SCH ×2 (09:19→21:12)
[2021-12-31] MEDS: THERAHONEY GEL 1.5 OZ TUBE TP SCH ×2 (09:19→21:12)
[2021-12-31 11:58] VITALS: BP 129/76
[2021-12-31 20:15] VITALS: BP 101/67
--- NOTE | 2021-12-31 20:33 | NUR ---
RT Patient was received on cool aerosol: FiO2 28% at 5 LPM. No respiratory distress or SOB noted during assessment. Patient tolerates current settings with an SPO2 of 98%. Q6 nebulizer treatments given and tolerated with no adverse reactions. Suctioned with minimal thick secretions. Trach is patent and secured. Emergency trach and ambu-bag are at the bedside.
[2021-12-31] MEDS: POLYETHYLENE GLYCOL 3350 17 GM POWD.PACK GT SCH (21:12)
[2021-12-31] MEDS: ATORVASTATIN 10 MG TABLET GT SCH (21:12)
[2021-12-31] MEDS: ENOXAPARIN SODIUM 40 MG/0.4 ML DISP.SYRIN SQ SCH (21:13)
[2021-12-31] MEDS: INSULIN GLARGINE,BASAGLAR 100 UNIT/ML INSULN.PEN SQ SCH (22:19)
[2022-01-01 00:10] VITALS: BP 121/75
[2022-01-01] MEDS: POLYVINYL ALCOHOL 15 ML BOTTLE EACHEYE SCH ×4 (00:33→17:50)
[2022-01-01] MEDS: BLOOD SUGAR DIAGNOSTIC 1 EACH STRIP IN SCH ×4 (00:33→17:50)
[2022-01-01] MEDS: INSULIN ASPART/LISPRO 100 UNIT/ML CARTRIDGE SQ PRN ×4 (00:34→17:50)
[2022-01-01] MEDS: ALBUTEROL FS 2.5 MG/3 ML VIAL.NEB NEB SCH ×4 (01:33→20:13)
[2022-01-01] MEDS: IPRATROPIUM NEB FS 0.5 MG/2.5 ML AMPUL.NEB NEB SCH ×4 (01:33→20:13)
[2022-01-01] MEDS: GLUCERNA 1.2 1,000 ML BOTTLE GT PRN ×2 (05:56→14:24)
[2022-01-01] MEDS: OMEPRAZOLE 20 MG CAPSULE.DR GT SCH (05:56)
[2022-01-01 07:23] VITALS: BP 107/64
[2022-01-01] MEDS: DILTIAZEM HCL 30 MG TABLET GT SCH ×2 (08:17→21:00)
[2022-01-01] MEDS: DOCUSATE SODIUM LIQ 100 MG/10 ML UDC GT SCH ×2 (08:17→16:07)
[2022-01-01] MEDS: LISINOPRIL (5MG) 5 MG TABLET GT SCH (08:18)
[2022-01-01] MEDS: ASCORBIC ACID 500 MG TABLET GT SCH (08:18)
[2022-01-01] MEDS: LEVETIRACETAM SOL (5 ML) 100 MG/ML UDC GT SCH ×2 (08:18→21:19)
[2022-01-01] MEDS: FERROUS SULFATE - FOR SA ONLY 330 MG/7.5 ML UDC GT SCH (08:18)
[2022-01-01] MEDS: PROSOURCE / PROSTAT (PYXIS) 30 ML UDC GT SCH ×2 (08:18→16:07)
[2022-01-01] MEDS: MULTIVIT W/MINERALS 1 TAB TABLET GT SCH (08:18)
[2022-01-01] MEDS: Z GUARD REMEDY 2 OZ OINT TP SCH ×2 (08:18→21:19)
[2022-01-01] MEDS: THERAHONEY GEL 1.5 OZ TUBE TP SCH ×2 (08:18→21:19)
[2022-01-01] MEDS: SITAGLIPTIN PHOSPHATE 50 MG TABLET GT SCH (08:18)
[2022-01-01] MEDS: VITAMINS A AND D 56.7 GM TUBE TP SCH ×4 (08:18→21:19)
[2022-01-01] MEDS: ZINC SULFATE 220 MG CAPSULE GT SCH (08:18)
[2022-01-01] MEDS: ACIDOPHILUS/BULGARICUS 1 EACH TAB.CHEW GT SCH ×2 (08:18→16:07)
[2022-01-01] MEDS: ZINC OXIDE 56.7 GM TUBE TP SCH ×2 (08:19→21:19)
[2022-01-01] MEDS: HYDROGEN PEROXIDE 480 ML BOTTLE TP SCH ×2 (09:05→21:08)
[2022-01-01 13:29] VITALS: BP 102/69
[2022-01-01 20:13] VITALS: BP 103/58
[2022-01-01] MEDS: POLYETHYLENE GLYCOL 3350 17 GM POWD.PACK GT SCH (21:19)
[2022-01-01] MEDS: ATORVASTATIN 10 MG TABLET GT SCH (21:19)
[2022-01-01] MEDS: ENOXAPARIN SODIUM 40 MG/0.4 ML DISP.SYRIN SQ SCH (21:19)
[2022-01-01] MEDS: INSULIN GLARGINE,BASAGLAR 100 UNIT/ML INSULN.PEN SQ SCH (21:54)
[2022-01-02] MEDS: BLOOD SUGAR DIAGNOSTIC 1 EACH STRIP IN SCH ×4 (00:39→17:16)
[2022-01-02] MEDS: POLYVINYL ALCOHOL 15 ML BOTTLE EACHEYE SCH ×4 (00:39→17:16)
[2022-01-02] MEDS: INSULIN ASPART/LISPRO 100 UNIT/ML CARTRIDGE SQ PRN ×3 (00:40→12:22)
[2022-01-02] MEDS: GLUCERNA 1.2 1,000 ML BOTTLE GT PRN ×2 (01:00→16:40)
[2022-01-02] MEDS: ALBUTEROL FS 2.5 MG/3 ML VIAL.NEB NEB SCH ×4 (01:39→19:58)
[2022-01-02] MEDS: IPRATROPIUM NEB FS 0.5 MG/2.5 ML AMPUL.NEB NEB SCH ×4 (01:39→19:58)
[2022-01-02] MEDS: OMEPRAZOLE 20 MG CAPSULE.DR GT SCH (05:55)
--- NOTE | 2022-01-02 06:11 | NUR ---
RT Patient was stable on 28% cool aerosol throughout the shift, no respiratory distress noted. Trach tube midline and secured, will continue to monitor. Addendum: 01/02/22 at 0612 by SHYANN BARRETT RT Amended: Links added.
[2022-01-02 08:09] VITALS: BP 128/78
[2022-01-02] MEDS: HYDROGEN PEROXIDE 480 ML BOTTLE TP SCH ×2 (09:13→21:18)
[2022-01-02] MEDS: DOCUSATE SODIUM LIQ 100 MG/10 ML UDC GT SCH ×2 (09:37→16:30)
[2022-01-02] MEDS: FERROUS SULFATE - FOR SA ONLY 330 MG/7.5 ML UDC GT SCH (09:37)
[2022-01-02] MEDS: DILTIAZEM HCL 30 MG TABLET GT SCH ×2 (09:37→21:08)
[2022-01-02] MEDS: ACIDOPHILUS/BULGARICUS 1 EACH TAB.CHEW GT SCH ×2 (09:37→16:30)
[2022-01-02] MEDS: SITAGLIPTIN PHOSPHATE 50 MG TABLET GT SCH (09:37)
[2022-01-02] MEDS: LEVETIRACETAM SOL (5 ML) 100 MG/ML UDC GT SCH ×2 (09:37→21:09)
[2022-01-02] MEDS: LISINOPRIL (5MG) 5 MG TABLET GT SCH (09:38)
[2022-01-02] MEDS: MULTIVIT W/MINERALS 1 TAB TABLET GT SCH (09:38)
[2022-01-02] MEDS: ASCORBIC ACID 500 MG TABLET GT SCH (09:38)
[2022-01-02] MEDS: THERAHONEY GEL 1.5 OZ TUBE TP SCH ×2 (09:38→21:10)
[2022-01-02] MEDS: ZINC SULFATE 220 MG CAPSULE GT SCH (09:38)
[2022-01-02] MEDS: VITAMINS A AND D 56.7 GM TUBE TP SCH ×4 (09:38→21:10)
[2022-01-02] MEDS: Z GUARD REMEDY 2 OZ OINT TP SCH ×2 (09:38→21:10)
[2022-01-02] MEDS: PROSOURCE / PROSTAT (PYXIS) 30 ML UDC GT SCH ×2 (09:38→16:30)
[2022-01-02] MEDS: ZINC OXIDE 56.7 GM TUBE TP SCH ×2 (09:38→21:10)
[2022-01-02 20:05] VITALS: BP 149/63
[2022-01-02] MEDS: ATORVASTATIN 10 MG TABLET GT SCH (21:10)
[2022-01-02] MEDS: POLYETHYLENE GLYCOL 3350 17 GM POWD.PACK GT SCH (21:10)
[2022-01-02] MEDS: INSULIN GLARGINE,BASAGLAR 100 UNIT/ML INSULN.PEN SQ SCH (21:13)
[2022-01-02] MEDS: ENOXAPARIN SODIUM 40 MG/0.4 ML DISP.SYRIN SQ SCH (21:14)
[2022-01-03] MEDS: BLOOD SUGAR DIAGNOSTIC 1 EACH STRIP IN SCH ×4 (00:19→17:52)
[2022-01-03] MEDS: POLYVINYL ALCOHOL 15 ML BOTTLE EACHEYE SCH ×4 (00:19→17:15)
[2022-01-03] MEDS: INSULIN ASPART/LISPRO 100 UNIT/ML CARTRIDGE SQ PRN ×2 (00:20→05:45)
[2022-01-03] MEDS: IPRATROPIUM NEB FS 0.5 MG/2.5 ML AMPUL.NEB NEB SCH ×4 (01:43→20:12)
[2022-01-03] MEDS: ALBUTEROL FS 2.5 MG/3 ML VIAL.NEB NEB SCH ×4 (01:43→20:12)
[2022-01-03] MEDS: OMEPRAZOLE 20 MG CAPSULE.DR GT SCH (05:44)
[2022-01-03 07:31] VITALS: BP 137/78
[2022-01-03] MEDS: HYDROGEN PEROXIDE 480 ML BOTTLE TP SCH ×2 (08:08→21:09)
[2022-01-03] MEDS: DILTIAZEM HCL 30 MG TABLET GT SCH ×2 (09:49→20:40)
[2022-01-03] MEDS: DOCUSATE SODIUM LIQ 100 MG/10 ML UDC GT SCH ×2 (09:50→17:15)
[2022-01-03] MEDS: ASCORBIC ACID 500 MG TABLET GT SCH (09:50)
[2022-01-03] MEDS: ACIDOPHILUS/BULGARICUS 1 EACH TAB.CHEW GT SCH ×2 (09:50→17:15)
[2022-01-03] MEDS: ZINC SULFATE 220 MG CAPSULE GT SCH (09:50)
[2022-01-03] MEDS: Z GUARD REMEDY 2 OZ OINT TP SCH ×2 (09:50→20:43)
[2022-01-03] MEDS: MULTIVIT W/MINERALS 1 TAB TABLET GT SCH (09:50)
[2022-01-03] MEDS: PROSOURCE / PROSTAT (PYXIS) 30 ML UDC GT SCH ×2 (09:50→17:15)
[2022-01-03] MEDS: FERROUS SULFATE - FOR SA ONLY 330 MG/7.5 ML UDC GT SCH (09:50)
[2022-01-03] MEDS: LISINOPRIL (5MG) 5 MG TABLET GT SCH (09:50)
[2022-01-03] MEDS: VITAMINS A AND D 56.7 GM TUBE TP SCH ×4 (09:50→20:43)
[2022-01-03] MEDS: ZINC OXIDE 56.7 GM TUBE TP SCH ×2 (09:50→20:43)
[2022-01-03] MEDS: SITAGLIPTIN PHOSPHATE 50 MG TABLET GT SCH (09:50)
[2022-01-03] MEDS: THERAHONEY GEL 1.5 OZ TUBE TP SCH ×2 (09:50→20:43)
[2022-01-03] MEDS: LEVETIRACETAM SOL (5 ML) 100 MG/ML UDC GT SCH ×2 (09:50→20:42)
[2022-01-03 11:40] VITALS: BP 136/69
[2022-01-03] MEDS: GLUCERNA 1.2 1,000 ML BOTTLE GT PRN (17:16)
[2022-01-03 21:00] VITALS: BP 113/55
[2022-01-03] MEDS: ATORVASTATIN 10 MG TABLET GT SCH (21:25)
[2022-01-03] MEDS: POLYETHYLENE GLYCOL 3350 17 GM POWD.PACK GT SCH (21:27)
[2022-01-03] MEDS: INSULIN GLARGINE,BASAGLAR 100 UNIT/ML INSULN.PEN SQ SCH (21:29)
[2022-01-03] MEDS: ENOXAPARIN SODIUM 40 MG/0.4 ML DISP.SYRIN SQ SCH (21:31)
[2022-01-04] MEDS: BLOOD SUGAR DIAGNOSTIC 1 EACH STRIP IN SCH ×5 (00:14→23:48)
[2022-01-04] MEDS: POLYVINYL ALCOHOL 15 ML BOTTLE EACHEYE SCH ×5 (00:14→23:48)
[2022-01-04] MEDS: INSULIN ASPART/LISPRO 100 UNIT/ML CARTRIDGE SQ PRN ×5 (00:15→23:48)
[2022-01-04] MEDS: ALBUTEROL FS 2.5 MG/3 ML VIAL.NEB NEB SCH ×4 (01:50→19:51)
[2022-01-04] MEDS: IPRATROPIUM NEB FS 0.5 MG/2.5 ML AMPUL.NEB NEB SCH ×4 (01:50→19:51)
[2022-01-04] MEDS: OMEPRAZOLE 20 MG CAPSULE.DR GT SCH (05:37)
[2022-01-04 07:21] VITALS: BP 103/60
[2022-01-04] MEDS: DILTIAZEM HCL 30 MG TABLET GT SCH ×2 (08:15→20:40)
[2022-01-04] MEDS: PROSOURCE / PROSTAT (PYXIS) 30 ML UDC GT SCH ×2 (08:16→16:08)
[2022-01-04] MEDS: LEVETIRACETAM SOL (5 ML) 100 MG/ML UDC GT SCH ×2 (08:16→20:43)
[2022-01-04] MEDS: ACIDOPHILUS/BULGARICUS 1 EACH TAB.CHEW GT SCH ×2 (08:16→16:08)
[2022-01-04] MEDS: SITAGLIPTIN PHOSPHATE 50 MG TABLET GT SCH (08:16)
[2022-01-04] MEDS: DOCUSATE SODIUM LIQ 100 MG/10 ML UDC GT SCH ×2 (08:16→16:08)
[2022-01-04] MEDS: FERROUS SULFATE - FOR SA ONLY 330 MG/7.5 ML UDC GT SCH (08:16)
[2022-01-04] MEDS: MULTIVIT W/MINERALS 1 TAB TABLET GT SCH (08:16)
[2022-01-04] MEDS: LISINOPRIL (5MG) 5 MG TABLET GT SCH (08:16)
[2022-01-04] MEDS: VITAMINS A AND D 56.7 GM TUBE TP SCH ×4 (08:17→20:43)
[2022-01-04] MEDS: THERAHONEY GEL 1.5 OZ TUBE TP SCH ×2 (08:17→20:43)
[2022-01-04] MEDS: ASCORBIC ACID 500 MG TABLET GT SCH (08:17)
[2022-01-04] MEDS: ZINC SULFATE 220 MG CAPSULE GT SCH (08:17)
[2022-01-04] MEDS: ZINC OXIDE 56.7 GM TUBE TP SCH ×2 (08:17→20:43)
[2022-01-04] MEDS: Z GUARD REMEDY 2 OZ OINT TP SCH ×2 (08:17→20:43)
--- NOTE | 2022-01-04 08:20 | NUR ---
Seen and examined by Dr. Capone no new orders.
[2022-01-04] MEDS: HYDROGEN PEROXIDE 480 ML BOTTLE TP SCH ×2 (09:37→21:41)
[2022-01-04 11:48] VITALS: BP 127/67
[2022-01-04] MEDS: GLUCERNA 1.2 1,000 ML BOTTLE GT PRN (11:51)
[2022-01-04 20:52] VITALS: BP 133/72
[2022-01-04] MEDS: ATORVASTATIN 10 MG TABLET GT SCH (21:03)
[2022-01-04] MEDS: POLYETHYLENE GLYCOL 3350 17 GM POWD.PACK GT SCH (21:03)
[2022-01-04] MEDS: INSULIN GLARGINE,BASAGLAR 100 UNIT/ML INSULN.PEN SQ SCH (21:04)
[2022-01-04] MEDS: ENOXAPARIN SODIUM 40 MG/0.4 ML DISP.SYRIN SQ SCH (21:05)
[2022-01-05] MEDS: IPRATROPIUM NEB FS 0.5 MG/2.5 ML AMPUL.NEB NEB SCH ×4 (01:41→20:05)
[2022-01-05] MEDS: ALBUTEROL FS 2.5 MG/3 ML VIAL.NEB NEB SCH ×4 (01:41→20:05)
[2022-01-05] MEDS: INSULIN ASPART/LISPRO 100 UNIT/ML CARTRIDGE SQ PRN ×4 (05:20→23:56)
[2022-01-05] MEDS: BLOOD SUGAR DIAGNOSTIC 1 EACH STRIP IN SCH ×4 (05:20→23:56)
[2022-01-05] MEDS: POLYVINYL ALCOHOL 15 ML BOTTLE EACHEYE SCH ×4 (05:20→23:56)
[2022-01-05] MEDS: OMEPRAZOLE 20 MG CAPSULE.DR GT SCH (05:20)
[2022-01-05] MEDS: GLUCERNA 1.2 1,000 ML BOTTLE GT PRN (05:26)
--- NOTE | 2022-01-05 06:00 | NUR ---
RT Patient remains stable on 28% cool aerosol throughout the shift, no respiratory distress noted. Trach tube midline and secured, will continue to monitor. Addendum: 01/05/22 at 0601 by SHYANN BARRETT RT Amended: Links added.
[2022-01-05 07:19] VITALS: BP 117/67
[2022-01-05] MEDS: HYDROGEN PEROXIDE 480 ML BOTTLE TP SCH ×2 (07:51→20:05)
[2022-01-05] MEDS: PROSOURCE / PROSTAT (PYXIS) 30 ML UDC GT SCH ×2 (08:19→16:50)
[2022-01-05] MEDS: FERROUS SULFATE - FOR SA ONLY 330 MG/7.5 ML UDC GT SCH (08:19)
[2022-01-05] MEDS: SITAGLIPTIN PHOSPHATE 50 MG TABLET GT SCH (08:19)
[2022-01-05] MEDS: LEVETIRACETAM SOL (5 ML) 100 MG/ML UDC GT SCH ×2 (08:19→21:34)
[2022-01-05] MEDS: DILTIAZEM HCL 30 MG TABLET GT SCH ×2 (08:19→21:34)
[2022-01-05] MEDS: DOCUSATE SODIUM LIQ 100 MG/10 ML UDC GT SCH ×2 (08:19→16:50)
[2022-01-05] MEDS: LISINOPRIL (5MG) 5 MG TABLET GT SCH (08:19)
[2022-01-05] MEDS: MULTIVIT W/MINERALS 1 TAB TABLET GT SCH (08:19)
[2022-01-05] MEDS: ASCORBIC ACID 500 MG TABLET GT SCH (08:19)
[2022-01-05] MEDS: ACIDOPHILUS/BULGARICUS 1 EACH TAB.CHEW GT SCH ×2 (08:19→16:50)
[2022-01-05] MEDS: ZINC SULFATE 220 MG CAPSULE GT SCH (08:19)
[2022-01-05] MEDS: THERAHONEY GEL 1.5 OZ TUBE TP SCH ×2 (08:20→21:35)
[2022-01-05] MEDS: ZINC OXIDE 56.7 GM TUBE TP SCH ×2 (08:20→21:35)
[2022-01-05] MEDS: Z GUARD REMEDY 2 OZ OINT TP SCH ×2 (08:20→21:35)
[2022-01-05] MEDS: VITAMINS A AND D 56.7 GM TUBE TP SCH ×4 (08:20→21:35)
--- NOTE | 2022-01-05 11:08 | NUR ---
PATIENT SUDDENLY WOB INCREASED WITH LEAKS AROUND THE TRACH. PATIENT EVALUATED FOUND PORTEX UNCUFFED IS IN PLACE INSTEAD OF PORTEX 9 CUFFED. PORTEX 9 CUFFED WERE PLACED AND PATIENT REMAIN STABLE WITH EQUAL BREATH SOUND AND BILATERAL CHEST RISE NOTED. HAND I CUTTER NOTIFIED.
--- NOTE | 2022-01-05 11:10 | NUR ---
RT changed resident trach to Portex 9, cuffed d/t leak on trach stoma and increased WOB, per RT the trach that was on was Portex 9 uncuffed instead of cuffed. No bleeding noted, no s/s of pain. Patient back to baseline, resp even and unlabored, O2 sat. 99%, HR- 94, Temp.97.8F, BP- 98/62. Dr. Capone informed, no new order. Will continue to monitor.
[2022-01-05 12:13] VITALS: BP 98/62
[2022-01-05 20:20] VITALS: BP 135/78
[2022-01-05] MEDS: POLYETHYLENE GLYCOL 3350 17 GM POWD.PACK GT SCH (21:35)
[2022-01-05] MEDS: ATORVASTATIN 10 MG TABLET GT SCH (21:35)
[2022-01-05] MEDS: INSULIN GLARGINE,BASAGLAR 100 UNIT/ML INSULN.PEN SQ SCH (21:36)
[2022-01-05] MEDS: ENOXAPARIN SODIUM 40 MG/0.4 ML DISP.SYRIN SQ SCH (21:36)
[2022-01-06] MEDS: IPRATROPIUM NEB FS 0.5 MG/2.5 ML AMPUL.NEB NEB SCH ×4 (00:54→20:12)
[2022-01-06] MEDS: ALBUTEROL FS 2.5 MG/3 ML VIAL.NEB NEB SCH ×4 (00:54→20:12)
[2022-01-06 01:09] VITALS: BP 120/69
--- NOTE | 2022-01-06 05:12 | NUR ---
RT Pt recvd on 28% FiO2 CA with trach patent, midline and secured. Neb tx given and jeannine well, suction PRN. Spo2 >92% maintained. No SOB or respiratory distress noted at this time. Spare trach and ambu bag at bedside.
[2022-01-06] MEDS: OMEPRAZOLE 20 MG CAPSULE.DR GT SCH (05:37)
[2022-01-06] MEDS: GLUCERNA 1.2 1,000 ML BOTTLE GT PRN ×2 (05:37→18:11)
[2022-01-06] MEDS: POLYVINYL ALCOHOL 15 ML BOTTLE EACHEYE SCH ×3 (05:37→17:08)
[2022-01-06] MEDS: BLOOD SUGAR DIAGNOSTIC 1 EACH STRIP IN SCH ×3 (05:42→17:08)
[2022-01-06] MEDS: INSULIN ASPART/LISPRO 100 UNIT/ML CARTRIDGE SQ PRN ×3 (05:43→17:09)
[2022-01-06 07:16] VITALS: BP 134/74
[2022-01-06] MEDS: DILTIAZEM HCL 30 MG TABLET GT SCH ×2 (08:37→21:18)
[2022-01-06] MEDS: FERROUS SULFATE - FOR SA ONLY 330 MG/7.5 ML UDC GT SCH (08:37)
[2022-01-06] MEDS: Z GUARD REMEDY 2 OZ OINT TP SCH ×2 (08:37→21:18)
[2022-01-06] MEDS: ZINC SULFATE 220 MG CAPSULE GT SCH (08:37)
[2022-01-06] MEDS: VITAMINS A AND D 56.7 GM TUBE TP SCH ×4 (08:37→21:18)
[2022-01-06] MEDS: THERAHONEY GEL 1.5 OZ TUBE TP SCH ×2 (08:37→21:18)
[2022-01-06] MEDS: DOCUSATE SODIUM LIQ 100 MG/10 ML UDC GT SCH ×2 (08:37→17:08)
[2022-01-06] MEDS: MULTIVIT W/MINERALS 1 TAB TABLET GT SCH (08:37)
[2022-01-06] MEDS: LEVETIRACETAM SOL (5 ML) 100 MG/ML UDC GT SCH ×2 (08:37→21:18)
[2022-01-06] MEDS: PROSOURCE / PROSTAT (PYXIS) 30 ML UDC GT SCH ×2 (08:37→17:08)
[2022-01-06] MEDS: SITAGLIPTIN PHOSPHATE 50 MG TABLET GT SCH (08:37)
[2022-01-06] MEDS: ASCORBIC ACID 500 MG TABLET GT SCH (08:37)
[2022-01-06] MEDS: ACIDOPHILUS/BULGARICUS 1 EACH TAB.CHEW GT SCH ×2 (08:37→17:08)
[2022-01-06] MEDS: ZINC OXIDE 56.7 GM TUBE TP SCH ×2 (08:38→21:18)
[2022-01-06] MEDS: LISINOPRIL (5MG) 5 MG TABLET GT SCH (08:38)
[2022-01-06] MEDS: HYDROGEN PEROXIDE 480 ML BOTTLE TP SCH ×2 (09:44→20:12)
--- NOTE | 2022-01-06 09:50 | NUR ---
Seen by MILLY Bender via telemedicine. No new order given.
[2022-01-06 12:19] VITALS: BP 110/68
[2022-01-06 20:15] VITALS: BP 114/59
[2022-01-06] MEDS: POLYETHYLENE GLYCOL 3350 17 GM POWD.PACK GT SCH (21:18)
[2022-01-06] MEDS: ATORVASTATIN 10 MG TABLET GT SCH (21:18)
[2022-01-06] MEDS: ENOXAPARIN SODIUM 40 MG/0.4 ML DISP.SYRIN SQ SCH (21:19)
[2022-01-06] MEDS: INSULIN GLARGINE,BASAGLAR 100 UNIT/ML INSULN.PEN SQ SCH (21:21)
[2022-01-07] MEDS: POLYVINYL ALCOHOL 15 ML BOTTLE EACHEYE SCH ×4 (00:25→17:05)
[2022-01-07] MEDS: BLOOD SUGAR DIAGNOSTIC 1 EACH STRIP IN SCH ×4 (00:25→17:50)
[2022-01-07] MEDS: INSULIN ASPART/LISPRO 100 UNIT/ML CARTRIDGE SQ PRN ×4 (00:27→17:53)
[2022-01-07 01:00] VITALS: BP 120/78
[2022-01-07] MEDS: ALBUTEROL FS 2.5 MG/3 ML VIAL.NEB NEB SCH ×4 (01:59→20:09)
[2022-01-07] MEDS: IPRATROPIUM NEB FS 0.5 MG/2.5 ML AMPUL.NEB NEB SCH ×4 (01:59→20:09)
[2022-01-07] MEDS: OMEPRAZOLE 20 MG CAPSULE.DR GT SCH (05:59)
[2022-01-07 07:21] VITALS: BP 114/68
[2022-01-07] MEDS: HYDROGEN PEROXIDE 480 ML BOTTLE TP SCH ×2 (09:08→20:09)
[2022-01-07] MEDS: FERROUS SULFATE - FOR SA ONLY 330 MG/7.5 ML UDC GT SCH (09:47)
[2022-01-07] MEDS: LISINOPRIL (5MG) 5 MG TABLET GT SCH (09:47)
[2022-01-07] MEDS: THERAHONEY GEL 1.5 OZ TUBE TP SCH ×2 (09:47→21:27)
[2022-01-07] MEDS: LEVETIRACETAM SOL (5 ML) 100 MG/ML UDC GT SCH ×2 (09:47→21:27)
[2022-01-07] MEDS: DOCUSATE SODIUM LIQ 100 MG/10 ML UDC GT SCH ×2 (09:47→17:05)
[2022-01-07] MEDS: ASCORBIC ACID 500 MG TABLET GT SCH (09:47)
[2022-01-07] MEDS: ZINC SULFATE 220 MG CAPSULE GT SCH (09:47)
[2022-01-07] MEDS: Z GUARD REMEDY 2 OZ OINT TP SCH ×2 (09:47→21:27)
[2022-01-07] MEDS: ACIDOPHILUS/BULGARICUS 1 EACH TAB.CHEW GT SCH ×2 (09:47→17:05)
[2022-01-07] MEDS: PROSOURCE / PROSTAT (PYXIS) 30 ML UDC GT SCH ×2 (09:47→17:05)
[2022-01-07] MEDS: MULTIVIT W/MINERALS 1 TAB TABLET GT SCH (09:47)
[2022-01-07] MEDS: SITAGLIPTIN PHOSPHATE 50 MG TABLET GT SCH (09:47)
[2022-01-07] MEDS: DILTIAZEM HCL 30 MG TABLET GT SCH ×2 (09:47→21:00)
[2022-01-07] MEDS: ZINC OXIDE 56.7 GM TUBE TP SCH ×2 (09:48→21:27)
[2022-01-07] MEDS: VITAMINS A AND D 56.7 GM TUBE TP SCH ×4 (09:48→21:27)
[2022-01-07 12:24] VITALS: BP 105/60
--- NOTE | 2022-01-07 16:23 | NUR ---
ORACIO emailed the Bivalent Covid Vaccine information sheet to the patient's daughter, Kelly.
[2022-01-07] MEDS: GLUCERNA 1.2 1,000 ML BOTTLE GT PRN (18:39)
[2022-01-07 19:29] VITALS: BP 100/63
[2022-01-07] MEDS: ATORVASTATIN 10 MG TABLET GT SCH (21:27)
[2022-01-07] MEDS: POLYETHYLENE GLYCOL 3350 17 GM POWD.PACK GT SCH (21:28)
[2022-01-07] MEDS: ENOXAPARIN SODIUM 40 MG/0.4 ML DISP.SYRIN SQ SCH (21:28)
[2022-01-07] MEDS: INSULIN GLARGINE,BASAGLAR 100 UNIT/ML INSULN.PEN SQ SCH (21:30)
[2022-01-08] MEDS: BLOOD SUGAR DIAGNOSTIC 1 EACH STRIP IN SCH ×5 (00:17→23:16)
[2022-01-08] MEDS: POLYVINYL ALCOHOL 15 ML BOTTLE EACHEYE SCH ×5 (00:17→23:16)
[2022-01-08] MEDS: INSULIN ASPART/LISPRO 100 UNIT/ML CARTRIDGE SQ PRN ×5 (00:19→23:15)
[2022-01-08 00:23] VITALS: BP 106/76
[2022-01-08] MEDS: ALBUTEROL FS 2.5 MG/3 ML VIAL.NEB NEB SCH ×4 (01:02→19:17)
[2022-01-08] MEDS: IPRATROPIUM NEB FS 0.5 MG/2.5 ML AMPUL.NEB NEB SCH ×4 (01:02→19:17)
--- NOTE | 2022-01-08 02:37 | NUR ---
RT Pt recvd on 5 lpm 28% FiO2 CA with trach patent, midline and secured. Neb tx given and jeannine well, suction PRN. Spo2 >92% maintained. No SOB or respiratory distress noted at this time. Spare trach and ambu bag at bedside.
[2022-01-08] MEDS: OMEPRAZOLE 20 MG CAPSULE.DR GT SCH (05:59)
--- NOTE | 2022-01-08 07:50 | NUR ---
RT NOTE: PT RECEIVED STABLE UNABLE TO FOLLOW COMMANDS. REACTIVE TO STIM. PT TRACH PATENT AND SECURE. PT ON CA ON CORRECT LITER FLOW. BAG AND MASK AT BEDSIDE AND SPARE TRACH. PT SHOWS NO SIGNS OF DISTRESS. BILAT BREATH SOUNDS AND CHEST RISE OBSERVED WILL CONTINUE CURRENT THERAPY. Addendum: 01/08/22 at 1511 by JESSICA RUSH RT Amended: Links added.
[2022-01-08 08:01] VITALS: BP 112/71
[2022-01-08] MEDS: ZINC OXIDE 56.7 GM TUBE TP SCH ×2 (09:00→21:49)
[2022-01-08] MEDS: HYDROGEN PEROXIDE 480 ML BOTTLE TP SCH ×2 (09:12→19:17)
[2022-01-08] MEDS: DILTIAZEM HCL 30 MG TABLET GT SCH ×2 (09:42→21:49)
[2022-01-08] MEDS: DOCUSATE SODIUM LIQ 100 MG/10 ML UDC GT SCH ×2 (09:43→16:51)
[2022-01-08] MEDS: FERROUS SULFATE - FOR SA ONLY 330 MG/7.5 ML UDC GT SCH (09:44)
[2022-01-08] MEDS: SITAGLIPTIN PHOSPHATE 50 MG TABLET GT SCH (09:45)
[2022-01-08] MEDS: LEVETIRACETAM SOL (5 ML) 100 MG/ML UDC GT SCH ×2 (09:46→21:49)
[2022-01-08] MEDS: ACIDOPHILUS/BULGARICUS 1 EACH TAB.CHEW GT SCH ×2 (09:46→16:51)
[2022-01-08] MEDS: PROSOURCE / PROSTAT (PYXIS) 30 ML UDC GT SCH ×2 (09:49→16:51)
[2022-01-08] MEDS: LISINOPRIL (5MG) 5 MG TABLET GT SCH (09:49)
[2022-01-08] MEDS: ASCORBIC ACID 500 MG TABLET GT SCH (09:50)
[2022-01-08] MEDS: ZINC SULFATE 220 MG CAPSULE GT SCH (09:50)
[2022-01-08] MEDS: MULTIVIT W/MINERALS 1 TAB TABLET GT SCH (09:50)
[2022-01-08] MEDS: VITAMINS A AND D 56.7 GM TUBE TP SCH ×4 (09:51→21:49)
[2022-01-08] MEDS: THERAHONEY GEL 1.5 OZ TUBE TP SCH ×2 (09:51→21:49)
[2022-01-08] MEDS: Z GUARD REMEDY 2 OZ OINT TP SCH ×2 (09:51→21:49)
[2022-01-08 12:08] VITALS: BP 118/67
[2022-01-08] MEDS: GLUCERNA 1.2 1,000 ML BOTTLE GT PRN (17:07)
[2022-01-08 20:15] VITALS: BP 98/63
[2022-01-08] MEDS: POLYETHYLENE GLYCOL 3350 17 GM POWD.PACK GT SCH (21:49)
[2022-01-08] MEDS: ATORVASTATIN 10 MG TABLET GT SCH (21:49)
[2022-01-08] MEDS: INSULIN GLARGINE,BASAGLAR 100 UNIT/ML INSULN.PEN SQ SCH (21:52)
[2022-01-08] MEDS: ENOXAPARIN SODIUM 40 MG/0.4 ML DISP.SYRIN SQ SCH (21:53)
[2022-01-09] MEDS: IPRATROPIUM NEB FS 0.5 MG/2.5 ML AMPUL.NEB NEB SCH ×4 (01:17→20:27)
[2022-01-09] MEDS: ALBUTEROL FS 2.5 MG/3 ML VIAL.NEB NEB SCH ×4 (01:17→20:27)
[2022-01-09] MEDS: OMEPRAZOLE 20 MG CAPSULE.DR GT SCH (05:07)
[2022-01-09] MEDS: POLYVINYL ALCOHOL 15 ML BOTTLE EACHEYE SCH ×3 (05:15→17:07)
[2022-01-09] MEDS: BLOOD SUGAR DIAGNOSTIC 1 EACH STRIP IN SCH ×3 (05:18→17:53)
[2022-01-09 07:46] VITALS: BP 126/67
--- NOTE | 2022-01-09 08:10 | NUR ---
RT NOTE: PT RECEIVED STABLE UNABLE TO FOLLOW COMMANDS. REACTIVE TO STIM. PT TRACH PATENT AND SECURE. PT ON CA ON CORRECT LITER FLOW. BAG AND MASK AT BEDSIDE AND SPARE TRACH. PT SHOWS NO SIGNS OF DISTRESS. BILAT BREATH SOUNDS AND CHEST RISE OBSERVED WILL CONTINUE CURRENT THERAPY. Addendum: 01/09/22 at 1057 by JESSICA RUSH RT Amended: Links added.
[2022-01-09] MEDS: DOCUSATE SODIUM LIQ 100 MG/10 ML UDC GT SCH ×2 (08:59→17:06)
[2022-01-09] MEDS: FERROUS SULFATE - FOR SA ONLY 330 MG/7.5 ML UDC GT SCH (08:59)
[2022-01-09] MEDS: ACIDOPHILUS/BULGARICUS 1 EACH TAB.CHEW GT SCH ×2 (08:59→17:06)
[2022-01-09] MEDS: LEVETIRACETAM SOL (5 ML) 100 MG/ML UDC GT SCH ×2 (08:59→21:00)
[2022-01-09] MEDS: SITAGLIPTIN PHOSPHATE 50 MG TABLET GT SCH (08:59)
[2022-01-09] MEDS: DILTIAZEM HCL 30 MG TABLET GT SCH ×2 (09:00→21:00)
[2022-01-09] MEDS: LISINOPRIL (5MG) 5 MG TABLET GT SCH (09:00)
[2022-01-09] MEDS: HYDROGEN PEROXIDE 480 ML BOTTLE TP SCH ×2 (09:00→21:52)
[2022-01-09] MEDS: MULTIVIT W/MINERALS 1 TAB TABLET GT SCH (09:01)
[2022-01-09] MEDS: PROSOURCE / PROSTAT (PYXIS) 30 ML UDC GT SCH ×2 (09:01→17:06)
[2022-01-09] MEDS: ASCORBIC ACID 500 MG TABLET GT SCH (09:02)
[2022-01-09] MEDS: ZINC OXIDE 56.7 GM TUBE TP SCH ×2 (09:02→21:00)
[2022-01-09] MEDS: Z GUARD REMEDY 2 OZ OINT TP SCH ×2 (09:02→21:00)
[2022-01-09] MEDS: THERAHONEY GEL 1.5 OZ TUBE TP SCH ×2 (09:02→21:00)
[2022-01-09] MEDS: VITAMINS A AND D 56.7 GM TUBE TP SCH ×4 (09:02→21:00)
[2022-01-09] MEDS: ZINC SULFATE 220 MG CAPSULE GT SCH (09:02)
[2022-01-09] MEDS: INSULIN ASPART/LISPRO 100 UNIT/ML CARTRIDGE SQ PRN ×2 (12:21→18:05)
[2022-01-09] MEDS: GLUCERNA 1.2 1,000 ML BOTTLE GT PRN ×2 (15:07→22:57)
[2022-01-09 19:11] VITALS: BP 100/61
--- NOTE | 2022-01-09 20:58 | NUR ---
RT Pt was received on cool aerosol (5 LPM, FiO2 28%) as ordered. Tolerating with an SPO2 of 99% on initial assessment. No respiratory distress or SOB noted at this time. Q6 nebulizer tx given. Tolerated with no adverse reactions. Suctioned x2 with minimal but thick secretions. Trach is patent and secured. Emergency trach and Ambu-bag are at the bedside.
[2022-01-09] MEDS: POLYETHYLENE GLYCOL 3350 17 GM POWD.PACK GT SCH (22:48)
[2022-01-09] MEDS: ATORVASTATIN 10 MG TABLET GT SCH (22:48)
[2022-01-09] MEDS: INSULIN GLARGINE,BASAGLAR 100 UNIT/ML INSULN.PEN SQ SCH (22:49)
[2022-01-09] MEDS: ENOXAPARIN SODIUM 40 MG/0.4 ML DISP.SYRIN SQ SCH (22:50)
[2022-01-10] MEDS: IPRATROPIUM NEB FS 0.5 MG/2.5 ML AMPUL.NEB NEB SCH ×4 (02:22→20:04)
[2022-01-10] MEDS: ALBUTEROL FS 2.5 MG/3 ML VIAL.NEB NEB SCH ×4 (02:22→20:04)
[2022-01-10] MEDS: BLOOD SUGAR DIAGNOSTIC 1 EACH STRIP IN SCH ×4 (05:37→17:25)
[2022-01-10] MEDS: POLYVINYL ALCOHOL 15 ML BOTTLE EACHEYE SCH ×4 (05:37→17:19)
[2022-01-10] MEDS: OMEPRAZOLE 20 MG CAPSULE.DR GT SCH (05:37)
[2022-01-10 08:07] VITALS: BP 99/59
[2022-01-10] MEDS: DILTIAZEM HCL 30 MG TABLET GT SCH ×2 (09:00→21:00)
[2022-01-10] MEDS: ZINC OXIDE 56.7 GM TUBE TP SCH ×2 (09:00→21:00)
[2022-01-10] MEDS: LISINOPRIL (5MG) 5 MG TABLET GT SCH (09:00)
[2022-01-10] MEDS: VITAMINS A AND D 56.7 GM TUBE TP SCH ×4 (09:00→21:00)
[2022-01-10] MEDS: THERAHONEY GEL 1.5 OZ TUBE TP SCH ×2 (09:00→21:00)
[2022-01-10] MEDS: HYDROGEN PEROXIDE 480 ML BOTTLE TP SCH ×2 (09:07→21:14)
[2022-01-10] MEDS: DOCUSATE SODIUM LIQ 100 MG/10 ML UDC GT SCH ×2 (09:22→17:19)
[2022-01-10] MEDS: ACIDOPHILUS/BULGARICUS 1 EACH TAB.CHEW GT SCH ×2 (09:22→17:19)
[2022-01-10] MEDS: LEVETIRACETAM SOL (5 ML) 100 MG/ML UDC GT SCH ×2 (09:22→21:00)
[2022-01-10] MEDS: FERROUS SULFATE - FOR SA ONLY 330 MG/7.5 ML UDC GT SCH (09:22)
[2022-01-10] MEDS: SITAGLIPTIN PHOSPHATE 50 MG TABLET GT SCH (09:22)
[2022-01-10] MEDS: PROSOURCE / PROSTAT (PYXIS) 30 ML UDC GT SCH ×2 (09:25→17:19)
[2022-01-10] MEDS: ASCORBIC ACID 500 MG TABLET GT SCH (09:25)
[2022-01-10] MEDS: Z GUARD REMEDY 2 OZ OINT TP SCH ×2 (09:25→21:00)
[2022-01-10] MEDS: MULTIVIT W/MINERALS 1 TAB TABLET GT SCH (09:25)
[2022-01-10] MEDS: ZINC SULFATE 220 MG CAPSULE GT SCH (09:25)
[2022-01-10] MEDS: INSULIN ASPART/LISPRO 100 UNIT/ML CARTRIDGE SQ PRN ×2 (12:19→17:26)
[2022-01-10 19:36] VITALS: BP 109/69
[2022-01-10] MEDS: ATORVASTATIN 10 MG TABLET GT SCH (22:18)
[2022-01-10] MEDS: POLYETHYLENE GLYCOL 3350 17 GM POWD.PACK GT SCH (22:19)
[2022-01-10] MEDS: INSULIN GLARGINE,BASAGLAR 100 UNIT/ML INSULN.PEN SQ SCH (22:20)
[2022-01-10] MEDS: ENOXAPARIN SODIUM 40 MG/0.4 ML DISP.SYRIN SQ SCH (22:21)
[2022-01-11] MEDS: POLYVINYL ALCOHOL 15 ML BOTTLE EACHEYE SCH ×5 (00:31→23:29)
[2022-01-11] MEDS: BLOOD SUGAR DIAGNOSTIC 1 EACH STRIP IN SCH ×5 (00:31→23:29)
[2022-01-11] MEDS: GLUCERNA 1.2 1,000 ML BOTTLE GT PRN (00:31)
[2022-01-11] MEDS: ALBUTEROL FS 2.5 MG/3 ML VIAL.NEB NEB SCH ×4 (01:46→19:58)
[2022-01-11] MEDS: IPRATROPIUM NEB FS 0.5 MG/2.5 ML AMPUL.NEB NEB SCH ×4 (01:46→19:58)
[2022-01-11] MEDS: OMEPRAZOLE 20 MG CAPSULE.DR GT SCH (05:43)
--- NOTE | 2022-01-11 06:19 | NUR ---
RT Patient remains stable on 28% cool aerosol throughout the shift, no respiratory distress noted. Trach tube midline and secured, will continue to monitor. Addendum: 01/11/22 at 0620 by SHYANN BARRETT RT Amended: Links added.
[2022-01-11 07:12] VITALS: BP 11/73
[2022-01-11] MEDS: DOCUSATE SODIUM LIQ 100 MG/10 ML UDC GT SCH ×2 (08:52→17:19)
[2022-01-11] MEDS: DILTIAZEM HCL 30 MG TABLET GT SCH ×2 (08:52→22:00)
[2022-01-11] MEDS: SITAGLIPTIN PHOSPHATE 50 MG TABLET GT SCH (08:53)
[2022-01-11] MEDS: LEVETIRACETAM SOL (5 ML) 100 MG/ML UDC GT SCH ×2 (08:53→21:00)
[2022-01-11] MEDS: PROSOURCE / PROSTAT (PYXIS) 30 ML UDC GT SCH ×2 (08:53→17:20)
[2022-01-11] MEDS: ZINC SULFATE 220 MG CAPSULE GT SCH (08:53)
[2022-01-11] MEDS: ASCORBIC ACID 500 MG TABLET GT SCH (08:53)
[2022-01-11] MEDS: FERROUS SULFATE - FOR SA ONLY 330 MG/7.5 ML UDC GT SCH (08:53)
[2022-01-11] MEDS: Z GUARD REMEDY 2 OZ OINT TP SCH ×2 (08:53→21:00)
[2022-01-11] MEDS: LISINOPRIL (5MG) 5 MG TABLET GT SCH (08:53)
[2022-01-11] MEDS: ACIDOPHILUS/BULGARICUS 1 EACH TAB.CHEW GT SCH ×2 (08:53→17:20)
[2022-01-11] MEDS: MULTIVIT W/MINERALS 1 TAB TABLET GT SCH (08:53)
[2022-01-11] MEDS: VITAMINS A AND D 56.7 GM TUBE TP SCH ×4 (08:54→21:00)
[2022-01-11] MEDS: ZINC OXIDE 56.7 GM TUBE TP SCH ×2 (08:54→21:00)
[2022-01-11] MEDS: THERAHONEY GEL 1.5 OZ TUBE TP SCH ×2 (08:54→21:00)
[2022-01-11] MEDS: HYDROGEN PEROXIDE 480 ML BOTTLE TP SCH ×2 (09:36→21:25)
[2022-01-11 11:42] VITALS: BP 143/74
[2022-01-11] MEDS: INSULIN ASPART/LISPRO 100 UNIT/ML CARTRIDGE SQ PRN ×2 (11:56→17:36)
[2022-01-11 19:14] VITALS: BP 136/74
--- NOTE | 2022-01-11 21:30 | NUR ---
RN NOTES Re-assessed left buttock st4 wound, still present, measuring 0.6 x 0.8 x 0.5cm. Received new order to continue same treatment, noted and carried out.
[2022-01-11] MEDS: POLYETHYLENE GLYCOL 3350 17 GM POWD.PACK GT SCH (22:04)
[2022-01-11] MEDS: ATORVASTATIN 10 MG TABLET GT SCH (22:04)
[2022-01-11] MEDS: INSULIN GLARGINE,BASAGLAR 100 UNIT/ML INSULN.PEN SQ SCH (22:05)
[2022-01-11] MEDS: ENOXAPARIN SODIUM 40 MG/0.4 ML DISP.SYRIN SQ SCH (22:13)
[2022-01-12] MEDS: GLUCERNA 1.2 1,000 ML BOTTLE GT PRN ×2 (00:07→22:00)
[2022-01-12] MEDS: IPRATROPIUM NEB FS 0.5 MG/2.5 ML AMPUL.NEB NEB SCH ×4 (01:35→20:26)
[2022-01-12] MEDS: ALBUTEROL FS 2.5 MG/3 ML VIAL.NEB NEB SCH ×4 (01:35→20:26)
[2022-01-12] MEDS: BLOOD SUGAR DIAGNOSTIC 1 EACH STRIP IN SCH ×4 (05:53→23:58)
[2022-01-12] MEDS: OMEPRAZOLE 20 MG CAPSULE.DR GT SCH (05:53)
[2022-01-12] MEDS: POLYVINYL ALCOHOL 15 ML BOTTLE EACHEYE SCH ×4 (05:53→23:58)
--- NOTE | 2022-01-12 06:27 | NUR ---
RT Patient was stable on 28% cool aerosol throughout the shift, no respiratory distress noted. Trach tube midline and secured, will continue to monitor. Addendum: 01/12/22 at 0627 by SHYANN BARRETT RT Amended: Links added.
[2022-01-12 07:23] VITALS: BP 121/69
[2022-01-12] MEDS: ASCORBIC ACID 500 MG TABLET GT SCH (09:42)
[2022-01-12] MEDS: DOCUSATE SODIUM LIQ 100 MG/10 ML UDC GT SCH ×2 (09:42→17:42)
[2022-01-12] MEDS: MULTIVIT W/MINERALS 1 TAB TABLET GT SCH (09:42)
[2022-01-12] MEDS: SITAGLIPTIN PHOSPHATE 50 MG TABLET GT SCH (09:42)
[2022-01-12] MEDS: FERROUS SULFATE - FOR SA ONLY 330 MG/7.5 ML UDC GT SCH (09:42)
[2022-01-12] MEDS: LEVETIRACETAM SOL (5 ML) 100 MG/ML UDC GT SCH ×2 (09:42→21:50)
[2022-01-12] MEDS: PROSOURCE / PROSTAT (PYXIS) 30 ML UDC GT SCH ×2 (09:42→17:42)
[2022-01-12] MEDS: DILTIAZEM HCL 30 MG TABLET GT SCH ×2 (09:42→21:00)
[2022-01-12] MEDS: ACIDOPHILUS/BULGARICUS 1 EACH TAB.CHEW GT SCH ×2 (09:42→17:42)
[2022-01-12] MEDS: LISINOPRIL (5MG) 5 MG TABLET GT SCH (09:42)
[2022-01-12] MEDS: Z GUARD REMEDY 2 OZ OINT TP SCH ×2 (09:43→21:50)
[2022-01-12] MEDS: ZINC OXIDE 56.7 GM TUBE TP SCH ×2 (09:43→21:51)
[2022-01-12] MEDS: THERAHONEY GEL 1.5 OZ TUBE TP SCH ×2 (09:43→21:51)
[2022-01-12] MEDS: ZINC SULFATE 220 MG CAPSULE GT SCH (09:43)
[2022-01-12] MEDS: VITAMINS A AND D 56.7 GM TUBE TP SCH ×4 (09:43→21:51)
[2022-01-12] MEDS: HYDROGEN PEROXIDE 480 ML BOTTLE TP SCH ×2 (09:52→20:26)
[2022-01-12] MEDS: INSULIN ASPART/LISPRO 100 UNIT/ML CARTRIDGE SQ PRN ×3 (11:54→23:59)
[2022-01-12 12:11] VITALS: BP 100/72
[2022-01-12 20:16] VITALS: BP 97/65
[2022-01-12] MEDS: ATORVASTATIN 10 MG TABLET GT SCH (21:51)
[2022-01-12] MEDS: POLYETHYLENE GLYCOL 3350 17 GM POWD.PACK GT SCH (21:51)
[2022-01-12] MEDS: ENOXAPARIN SODIUM 40 MG/0.4 ML DISP.SYRIN SQ SCH (21:52)
[2022-01-12] MEDS: INSULIN GLARGINE,BASAGLAR 100 UNIT/ML INSULN.PEN SQ SCH (21:52)
[2022-01-13 00:41] VITALS: BP 121/75
[2022-01-13] MEDS: IPRATROPIUM NEB FS 0.5 MG/2.5 ML AMPUL.NEB NEB SCH ×4 (02:27→20:15)
[2022-01-13] MEDS: ALBUTEROL FS 2.5 MG/3 ML VIAL.NEB NEB SCH ×4 (02:27→20:15)
--- NOTE | 2022-01-13 03:58 | NUR ---
RT Pt recvd stable on 28% FiO2 CA with trach patent, midline and secured. Neb tx given and jeannine well, suction PRN. Spo2 >92% maintained. No SOB or respiratory distress noted at this time. Spare trach and ambu bag at bedside.
[2022-01-13] MEDS: INSULIN ASPART/LISPRO 100 UNIT/ML CARTRIDGE SQ PRN ×3 (05:35→17:39)
[2022-01-13] MEDS: OMEPRAZOLE 20 MG CAPSULE.DR GT SCH (05:35)
[2022-01-13] MEDS: BLOOD SUGAR DIAGNOSTIC 1 EACH STRIP IN SCH ×3 (05:35→17:39)
[2022-01-13] MEDS: POLYVINYL ALCOHOL 15 ML BOTTLE EACHEYE SCH ×3 (05:35→17:28)
[2022-01-13 08:18] VITALS: BP 101/64
[2022-01-13] MEDS: THERAHONEY GEL 1.5 OZ TUBE TP SCH ×2 (08:31→21:38)
[2022-01-13] MEDS: ZINC OXIDE 56.7 GM TUBE TP SCH ×2 (08:31→21:38)
[2022-01-13] MEDS: ASCORBIC ACID 500 MG TABLET GT SCH (08:31)
[2022-01-13] MEDS: VITAMINS A AND D 56.7 GM TUBE TP SCH ×4 (08:31→21:38)
[2022-01-13] MEDS: MULTIVIT W/MINERALS 1 TAB TABLET GT SCH (08:31)
[2022-01-13] MEDS: Z GUARD REMEDY 2 OZ OINT TP SCH ×2 (08:31→21:38)
[2022-01-13] MEDS: ZINC SULFATE 220 MG CAPSULE GT SCH (08:31)
[2022-01-13] MEDS: PROSOURCE / PROSTAT (PYXIS) 30 ML UDC GT SCH ×2 (08:31→17:28)
[2022-01-13] MEDS: LISINOPRIL (5MG) 5 MG TABLET GT SCH (08:32)
[2022-01-13] MEDS: FERROUS SULFATE - FOR SA ONLY 330 MG/7.5 ML UDC GT SCH (08:32)
[2022-01-13] MEDS: LEVETIRACETAM SOL (5 ML) 100 MG/ML UDC GT SCH ×2 (08:32→21:38)
[2022-01-13] MEDS: ACIDOPHILUS/BULGARICUS 1 EACH TAB.CHEW GT SCH ×2 (08:32→17:28)
[2022-01-13] MEDS: DOCUSATE SODIUM LIQ 100 MG/10 ML UDC GT SCH ×2 (08:32→17:28)
[2022-01-13] MEDS: SITAGLIPTIN PHOSPHATE 50 MG TABLET GT SCH (08:32)
[2022-01-13] MEDS: DILTIAZEM HCL 30 MG TABLET GT SCH ×2 (08:32→21:38)
[2022-01-13] MEDS: HYDROGEN PEROXIDE 480 ML BOTTLE TP SCH ×2 (09:22→20:15)
--- NOTE | 2022-01-13 16:19 | NUR ---
Called pt's daughter to offer flu vaccine but she did not answer.
[2022-01-13] MEDS: GLUCERNA 1.2 1,000 ML BOTTLE GT PRN (17:29)
[2022-01-13 20:21] VITALS: BP 120/67
[2022-01-13] MEDS: POLYETHYLENE GLYCOL 3350 17 GM POWD.PACK GT SCH (21:38)
[2022-01-13] MEDS: ATORVASTATIN 10 MG TABLET GT SCH (21:38)
[2022-01-13] MEDS: INSULIN GLARGINE,BASAGLAR 100 UNIT/ML INSULN.PEN SQ SCH (21:39)
[2022-01-13] MEDS: ENOXAPARIN SODIUM 40 MG/0.4 ML DISP.SYRIN SQ SCH (21:39)
[2022-01-14] MEDS: BLOOD SUGAR DIAGNOSTIC 1 EACH STRIP IN SCH ×5 (00:10→23:19)
[2022-01-14] MEDS: POLYVINYL ALCOHOL 15 ML BOTTLE EACHEYE SCH ×5 (00:10→23:11)
[2022-01-14] MEDS: INSULIN ASPART/LISPRO 100 UNIT/ML CARTRIDGE SQ PRN ×5 (00:12→23:19)
[2022-01-14 01:12] VITALS: BP 115/60
[2022-01-14] MEDS: IPRATROPIUM NEB FS 0.5 MG/2.5 ML AMPUL.NEB NEB SCH ×4 (01:33→20:19)
[2022-01-14] MEDS: ALBUTEROL FS 2.5 MG/3 ML VIAL.NEB NEB SCH ×4 (01:33→20:19)
[2022-01-14] MEDS: OMEPRAZOLE 20 MG CAPSULE.DR GT SCH (05:56)
[2022-01-14 07:33] VITALS: BP 113/72
--- NOTE | 2022-01-14 07:40 | NUR ---
RT NOTE: PT RECEIVED STABLE. REACTIVE TO STIM. PT TRACH PATENT AND SECURE. PT ON CA ON CORRECT LITER FLOW. BAG AND MASK AT BEDSIDE AND SPARE TRACH. PT SHOWS NO SIGNS OF DISTRESS. BILAT BREATH SOUNDS AND CHEST RISE OBSERVED WILL CONTINUE CURRENT THERAPY. Addendum: 01/14/22 at 1426 by JESSICA RUSH RT Amended: Links added.
[2022-01-14] MEDS: SITAGLIPTIN PHOSPHATE 50 MG TABLET GT SCH (08:13)
[2022-01-14] MEDS: DOCUSATE SODIUM LIQ 100 MG/10 ML UDC GT SCH ×2 (08:13→16:37)
[2022-01-14] MEDS: FERROUS SULFATE - FOR SA ONLY 330 MG/7.5 ML UDC GT SCH (08:13)
[2022-01-14] MEDS: DILTIAZEM HCL 30 MG TABLET GT SCH ×2 (08:13→20:03)
[2022-01-14] MEDS: VITAMINS A AND D 56.7 GM TUBE TP SCH ×4 (08:14→20:04)
[2022-01-14] MEDS: LISINOPRIL (5MG) 5 MG TABLET GT SCH (08:14)
[2022-01-14] MEDS: MULTIVIT W/MINERALS 1 TAB TABLET GT SCH (08:14)
[2022-01-14] MEDS: ZINC SULFATE 220 MG CAPSULE GT SCH (08:14)
[2022-01-14] MEDS: PROSOURCE / PROSTAT (PYXIS) 30 ML UDC GT SCH ×2 (08:14→16:37)
[2022-01-14] MEDS: ASCORBIC ACID 500 MG TABLET GT SCH (08:14)
[2022-01-14] MEDS: LEVETIRACETAM SOL (5 ML) 100 MG/ML UDC GT SCH ×2 (08:14→20:03)
[2022-01-14] MEDS: THERAHONEY GEL 1.5 OZ TUBE TP SCH ×2 (08:14→20:03)
[2022-01-14] MEDS: Z GUARD REMEDY 2 OZ OINT TP SCH ×2 (08:14→20:03)
[2022-01-14] MEDS: ACIDOPHILUS/BULGARICUS 1 EACH TAB.CHEW GT SCH ×2 (08:14→16:37)
[2022-01-14] MEDS: ZINC OXIDE 56.7 GM TUBE TP SCH ×2 (08:14→20:04)
[2022-01-14] MEDS: HYDROGEN PEROXIDE 480 ML BOTTLE TP SCH ×2 (09:15→23:23)
--- NOTE | 2022-01-14 09:18 | NUR ---
Flu vaccine information sheet: ORACIO emailed the patient's daughterKelly the information sheet yesterday for the flu vaccine and instructed family to call the nurse's station if they would like their pt. to receive the flu vaccine. Kelly replied today stating she does not want her pt. to receive the vaccine. ORACIO notified alumni secretary.
[2022-01-14 12:52] VITALS: BP 127/76
[2022-01-14] MEDS: GLUCERNA 1.2 1,000 ML BOTTLE GT PRN (18:41)
[2022-01-14 20:37] VITALS: BP 102/62
[2022-01-14] MEDS: ATORVASTATIN 10 MG TABLET GT SCH (21:02)
[2022-01-14] MEDS: POLYETHYLENE GLYCOL 3350 17 GM POWD.PACK GT SCH (21:02)
[2022-01-14] MEDS: ENOXAPARIN SODIUM 40 MG/0.4 ML DISP.SYRIN SQ SCH (21:03)
[2022-01-14] MEDS: INSULIN GLARGINE,BASAGLAR 100 UNIT/ML INSULN.PEN SQ SCH (21:03)
[2022-01-15 00:36] VITALS: BP 124/78
[2022-01-15] MEDS: IPRATROPIUM NEB FS 0.5 MG/2.5 ML AMPUL.NEB NEB SCH ×4 (02:19→20:14)
[2022-01-15] MEDS: ALBUTEROL FS 2.5 MG/3 ML VIAL.NEB NEB SCH ×4 (02:19→20:14)
[2022-01-15] MEDS: POLYVINYL ALCOHOL 15 ML BOTTLE EACHEYE SCH ×4 (05:13→23:09)
[2022-01-15] MEDS: INSULIN ASPART/LISPRO 100 UNIT/ML CARTRIDGE SQ PRN ×4 (05:13→23:10)
[2022-01-15] MEDS: BLOOD SUGAR DIAGNOSTIC 1 EACH STRIP IN SCH ×4 (05:13→23:09)
[2022-01-15] MEDS: OMEPRAZOLE 20 MG CAPSULE.DR GT SCH (05:13)
[2022-01-15 07:26] VITALS: BP 146/76
[2022-01-15] MEDS: HYDROGEN PEROXIDE 480 ML BOTTLE TP SCH ×2 (07:44→21:00)
[2022-01-15] MEDS: ACIDOPHILUS/BULGARICUS 1 EACH TAB.CHEW GT SCH ×2 (08:21→16:16)
[2022-01-15] MEDS: DOCUSATE SODIUM LIQ 100 MG/10 ML UDC GT SCH ×2 (08:21→16:16)
[2022-01-15] MEDS: LEVETIRACETAM SOL (5 ML) 100 MG/ML UDC GT SCH ×2 (08:21→20:29)
[2022-01-15] MEDS: SITAGLIPTIN PHOSPHATE 50 MG TABLET GT SCH (08:21)
[2022-01-15] MEDS: DILTIAZEM HCL 30 MG TABLET GT SCH ×2 (08:21→20:29)
[2022-01-15] MEDS: FERROUS SULFATE - FOR SA ONLY 330 MG/7.5 ML UDC GT SCH (08:21)
[2022-01-15] MEDS: LISINOPRIL (5MG) 5 MG TABLET GT SCH (08:22)
[2022-01-15] MEDS: PROSOURCE / PROSTAT (PYXIS) 30 ML UDC GT SCH ×2 (08:22→16:16)
[2022-01-15] MEDS: THERAHONEY GEL 1.5 OZ TUBE TP SCH ×2 (08:23→20:30)
[2022-01-15] MEDS: Z GUARD REMEDY 2 OZ OINT TP SCH ×2 (08:23→20:29)
[2022-01-15] MEDS: VITAMINS A AND D 56.7 GM TUBE TP SCH ×4 (08:23→20:30)
[2022-01-15] MEDS: MULTIVIT W/MINERALS 1 TAB TABLET GT SCH (08:23)
[2022-01-15] MEDS: ASCORBIC ACID 500 MG TABLET GT SCH (08:23)
[2022-01-15] MEDS: ZINC OXIDE 56.7 GM TUBE TP SCH ×2 (08:23→20:30)
[2022-01-15] MEDS: ZINC SULFATE 220 MG CAPSULE GT SCH (08:23)
--- NOTE | 2022-01-15 10:06 | NUR ---
RT Patient was received on ordered settings: cool aerosol FiO2 28% at 5 LPM. No respiratory distress or SOB noted during initial assessment. Nebulizer Tx given and tolerated with no adverse reactions noted. Patient suctioned with minimal thick secretions. Trach is secured and patent. Emergency trach and ambu-bag are bedside.
[2022-01-15 13:11] VITALS: BP 111/67
[2022-01-15] MEDS: GLUCERNA 1.2 1,000 ML BOTTLE GT PRN (14:55)
[2022-01-15 20:32] VITALS: BP 107/51
[2022-01-15] MEDS: ATORVASTATIN 10 MG TABLET GT SCH (21:11)
[2022-01-15] MEDS: POLYETHYLENE GLYCOL 3350 17 GM POWD.PACK GT SCH (21:11)
[2022-01-15] MEDS: INSULIN GLARGINE,BASAGLAR 100 UNIT/ML INSULN.PEN SQ SCH (21:12)
[2022-01-15] MEDS: ENOXAPARIN SODIUM 40 MG/0.4 ML DISP.SYRIN SQ SCH (21:12)
[2022-01-15 23:54] VITALS: BP 126/78
[2022-01-16] MEDS: IPRATROPIUM NEB FS 0.5 MG/2.5 ML AMPUL.NEB NEB SCH ×4 (01:30→19:45)
[2022-01-16] MEDS: ALBUTEROL FS 2.5 MG/3 ML VIAL.NEB NEB SCH ×4 (01:30→19:45)
[2022-01-16] MEDS: POLYVINYL ALCOHOL 15 ML BOTTLE EACHEYE SCH ×4 (05:05→23:55)
[2022-01-16] MEDS: OMEPRAZOLE 20 MG CAPSULE.DR GT SCH (05:05)
[2022-01-16] MEDS: BLOOD SUGAR DIAGNOSTIC 1 EACH STRIP IN SCH ×4 (05:09→23:55)
[2022-01-16] MEDS: INSULIN ASPART/LISPRO 100 UNIT/ML CARTRIDGE SQ PRN (05:09)
[2022-01-16 07:46] VITALS: BP 150/76
[2022-01-16] MEDS: FERROUS SULFATE - FOR SA ONLY 330 MG/7.5 ML UDC GT SCH (09:28)
[2022-01-16] MEDS: LISINOPRIL (5MG) 5 MG TABLET GT SCH (09:28)
[2022-01-16] MEDS: ACIDOPHILUS/BULGARICUS 1 EACH TAB.CHEW GT SCH ×2 (09:28→16:29)
[2022-01-16] MEDS: DILTIAZEM HCL 30 MG TABLET GT SCH ×2 (09:28→21:00)
[2022-01-16] MEDS: LEVETIRACETAM SOL (5 ML) 100 MG/ML UDC GT SCH ×2 (09:28→21:56)
[2022-01-16] MEDS: SITAGLIPTIN PHOSPHATE 50 MG TABLET GT SCH (09:28)
[2022-01-16] MEDS: DOCUSATE SODIUM LIQ 100 MG/10 ML UDC GT SCH ×2 (09:28→16:29)
[2022-01-16] MEDS: PROSOURCE / PROSTAT (PYXIS) 30 ML UDC GT SCH ×2 (09:28→16:29)
[2022-01-16] MEDS: MULTIVIT W/MINERALS 1 TAB TABLET GT SCH (09:28)
[2022-01-16] MEDS: VITAMINS A AND D 56.7 GM TUBE TP SCH ×4 (09:29→21:58)
[2022-01-16] MEDS: THERAHONEY GEL 1.5 OZ TUBE TP SCH ×2 (09:29→21:58)
[2022-01-16] MEDS: ASCORBIC ACID 500 MG TABLET GT SCH (09:29)
[2022-01-16] MEDS: ZINC SULFATE 220 MG CAPSULE GT SCH (09:29)
[2022-01-16] MEDS: Z GUARD REMEDY 2 OZ OINT TP SCH ×2 (09:29→21:56)
[2022-01-16] MEDS: ZINC OXIDE 56.7 GM TUBE TP SCH ×2 (09:30→21:58)
[2022-01-16] MEDS: HYDROGEN PEROXIDE 480 ML BOTTLE TP SCH ×2 (09:40→21:37)
[2022-01-16] MEDS: GLUCERNA 1.2 1,000 ML BOTTLE GT PRN (12:23)
[2022-01-16 19:19] VITALS: BP 98/63
[2022-01-16] MEDS: POLYETHYLENE GLYCOL 3350 17 GM POWD.PACK GT SCH (21:58)
[2022-01-16] MEDS: ATORVASTATIN 10 MG TABLET GT SCH (21:58)
[2022-01-16] MEDS: INSULIN GLARGINE,BASAGLAR 100 UNIT/ML INSULN.PEN SQ SCH (21:59)
[2022-01-16] MEDS: ENOXAPARIN SODIUM 40 MG/0.4 ML DISP.SYRIN SQ SCH (22:00)
[2022-01-17] MEDS: ALBUTEROL FS 2.5 MG/3 ML VIAL.NEB NEB SCH ×4 (01:47→19:56)
[2022-01-17] MEDS: IPRATROPIUM NEB FS 0.5 MG/2.5 ML AMPUL.NEB NEB SCH ×4 (01:47→19:56)
[2022-01-17] MEDS: POLYVINYL ALCOHOL 15 ML BOTTLE EACHEYE SCH ×3 (05:30→17:00)
[2022-01-17] MEDS: BLOOD SUGAR DIAGNOSTIC 1 EACH STRIP IN SCH ×3 (05:31→18:19)
[2022-01-17] MEDS: OMEPRAZOLE 20 MG CAPSULE.DR GT SCH (05:31)
--- NOTE | 2022-01-17 06:15 | NUR ---
RT Patient was stable on 28% cool aerosol throughout the shift, no respiratory distress noted. Trach tube midline and secured, will continue to monitor. Addendum: 01/17/22 at 0615 by SHYANN BARRETT RT Amended: Links added.
[2022-01-17] MEDS: GLUCERNA 1.2 1,000 ML BOTTLE GT PRN ×2 (06:19→22:13)
[2022-01-17 07:52] VITALS: BP 121/73
[2022-01-17] MEDS: THERAHONEY GEL 1.5 OZ TUBE TP SCH ×2 (08:44→21:53)
[2022-01-17] MEDS: SITAGLIPTIN PHOSPHATE 50 MG TABLET GT SCH (08:44)
[2022-01-17] MEDS: ACIDOPHILUS/BULGARICUS 1 EACH TAB.CHEW GT SCH ×2 (08:44→16:59)
[2022-01-17] MEDS: Z GUARD REMEDY 2 OZ OINT TP SCH ×2 (08:44→21:52)
[2022-01-17] MEDS: LISINOPRIL (5MG) 5 MG TABLET GT SCH (08:44)
[2022-01-17] MEDS: PROSOURCE / PROSTAT (PYXIS) 30 ML UDC GT SCH ×2 (08:44→16:59)
[2022-01-17] MEDS: DOCUSATE SODIUM LIQ 100 MG/10 ML UDC GT SCH ×2 (08:44→16:59)
[2022-01-17] MEDS: FERROUS SULFATE - FOR SA ONLY 330 MG/7.5 ML UDC GT SCH (08:44)
[2022-01-17] MEDS: MULTIVIT W/MINERALS 1 TAB TABLET GT SCH (08:44)
[2022-01-17] MEDS: VITAMINS A AND D 56.7 GM TUBE TP SCH ×4 (08:44→21:53)
[2022-01-17] MEDS: ZINC SULFATE 220 MG CAPSULE GT SCH (08:44)
[2022-01-17] MEDS: ASCORBIC ACID 500 MG TABLET GT SCH (08:44)
[2022-01-17] MEDS: LEVETIRACETAM SOL (5 ML) 100 MG/ML UDC GT SCH ×2 (08:44→21:52)
[2022-01-17] MEDS: DILTIAZEM HCL 30 MG TABLET GT SCH ×2 (08:44→21:52)
[2022-01-17] MEDS: ZINC OXIDE 56.7 GM TUBE TP SCH ×2 (08:45→21:53)
[2022-01-17] MEDS: HYDROGEN PEROXIDE 480 ML BOTTLE TP SCH ×2 (09:36→21:39)
[2022-01-17] MEDS: INSULIN ASPART/LISPRO 100 UNIT/ML CARTRIDGE SQ PRN ×2 (12:24→18:19)
[2022-01-17 15:17] VITALS: BP 124/69
[2022-01-17 20:21] VITALS: BP 111/63
--- NOTE | 2022-01-17 21:00 | NUR ---
RN NOTES Pt in stable condition. No distress noted.Bs checked at this time, 151. Shawna care done by HEDDLE MACHINE OPERATOR. Made comfortable in bed.
[2022-01-17] MEDS: INSULIN GLARGINE,BASAGLAR 100 UNIT/ML INSULN.PEN SQ SCH (21:53)
[2022-01-17] MEDS: POLYETHYLENE GLYCOL 3350 17 GM POWD.PACK GT SCH (21:53)
[2022-01-17] MEDS: ATORVASTATIN 10 MG TABLET GT SCH (21:53)
[2022-01-17] MEDS: ENOXAPARIN SODIUM 40 MG/0.4 ML DISP.SYRIN SQ SCH (21:54)
--- NOTE | 2022-01-18 | NUR ---
RN NOTES Pt in stable condition. No distress noted. Bs checked at this time, 140. Shawna care done by POTATO PANCAKE FRIER. Made comfortable in bed.
[2022-01-18] MEDS: POLYVINYL ALCOHOL 15 ML BOTTLE EACHEYE SCH (00:49)
[2022-01-18] MEDS: BLOOD SUGAR DIAGNOSTIC 1 EACH STRIP IN SCH (00:49)
[2022-01-18] MEDS: IPRATROPIUM NEB FS 0.5 MG/2.5 ML AMPUL.NEB NEB SCH (02:01)
[2022-01-18] MEDS: ALBUTEROL FS 2.5 MG/3 ML VIAL.NEB NEB SCH (02:01)
[2022-01-18 02:05] VITALS: BP 117/70
--- NOTE | 2022-01-18 02:05 | NUR ---
RN NOTES Pt in stable condition. V/S: B/P 117/70, HR 91, RR 14, T 98.6, O2sat 100%. Pt repositioned and made comfortable in bed.
--- NOTE | 2022-01-18 03:40 | NUR ---
RN NOTES Pt in stable condition. No distress noted. Shawna care done by BIOLOGY RESEARCH ASSISTANT. Made comfortable in bed.
--- NOTE | 2022-01-18 04:20 | NUR ---
RT Responded to a call from charge nurse after patient was found to be unresponsive. Checked trach and inner cannula, suctioned patient , Placed patient on 100% O2 no spontaneous breathing was noted, ER doctor declared patient at 0415 Addendum: 01/18/22 at 0633 by SHYANN BARRETT RT Amended: Links added.
--- NOTE | 2022-01-18 04:20 | NUR ---
Patient was unresponsive during rounds, vital signs not appreciated, no spontaneous breathing, placed on concrete fence builder, asystole. Patient is DNR, was pronounced at 0415 by ER Israel Beal MD. Called to inform Daughter via phone but did not answer. Left the Daughter a message twice.
--- NOTE | 2022-01-18 05:00 | NUR ---
RN NOTES Pt found pale, unresponsive, no pulse, no spontaneous breathing. O2 sat not reading. Pt code status is DNR. Placed on cardiac rehab nurse, asystole. Pronounced at 0415, by ER doctor, Dr. Witt, Israel Bell MD. reported to [facility], body released #[id number]. Called daughter, Kelly, twice and message to call back left twice. Post mortem care rendered. Body and pt belongings were sent to [facility].
--- NOTE | 2022-01-18 07:20 | NUR ---
RN NOTES Called daughter again with no answer, message left to call back.
--- NOTE | 2022-01-18 07:50 | NUR ---
RN NOTES Message left with 's exchange regarding pt's .
--- NOTE | 2022-01-18 08:00 | NUR ---
Called Kelly Wong but she did not answer. Left a message for her to call back.
--- NOTE | 2022-01-18 08:05 | NUR ---
Called pt's daughter Conner . Informed her that her mother early this morning. Also informed her that night and day charge nurses were unable to reach her sister Kelly. She said she will try to reach Kelly on her end but for charge nurse to still try calling Kelly. Conner expressed appreciation.
--- NOTE | 2022-01-18 08:18 | NUR ---
Called Kelly Wong but she did not answer. Left a voicemail for her to call back.
--- NOTE | 2022-01-18 08:30 | NUR ---
Kelly Wong called. Informed her of her mother's peaceful passing early this morning. Pt's daughter was crying but said it has been a long time. She expressed her wish to see her mother at the [facility].
--- NOTE | 2022-01-18 08:40 | NUR ---
Asked nursing phosphatic fertilizer supervisor if pt's daughter Kelly can see pt at the [facility]. She said the pt's daughter cannot see the pt there due to infection control issues. Pt's daughter needs to find a mortuary of her choice so the hospital can release the body and she can see her mother. Left message for pt's daughter. Also informed ORACIO Dow. ORACIO Dow said she will call the pt's daughter.
--- NOTE | 2022-01-18 11:58 | NUR ---
ORACIO called the pt.'s daughter, Kelly Wong and she stated she is in [facility] lobby. ORACIO checked the pt.'s room for any remaining belongings per Kelly's request and no other belongings were found. ORACIO met with Kelly int he lobby and provided emotional support. Kelly vented and expressed appreciation for staff caring for pt. ORACIO provided pt. with grief and bereavement support groups and a list or mortuaries, cremation and burial sites for family to make arrangements. Kelly was agreeable to plan and stated she and her sister may possibly go the cremation route and take the pt.'s ashes to their home state to have a memorial day there. ORACIO notified Kelly that she may call ORACIO for any questions ro support as needed. Kelly spoke to [facility] nursing supervisor clam bed and was given timeline for making arrangements per Kelly. Addendum: 01/18/22 at 1204 by LUIS ALBERTO NARAYANAN Late entry for 10 am Addendum: 01/18/22 at 1211 by LUIS ALBERTO NARAYANAN [employer] [place] [address], [place], [place] [phone] [facility] [phone] [facility] [address] [place], [place] [phone] [address] [facility]. [place], [place] [phone] [place], Lucy Orozco [facility] [address] [place], [place] [phone] [place] [phone] [place], [place] [id number] [id number] [place] [phone] [place], [place] [phone] [place], [place] [phone] [place] [employer] [phone] [facility] [facility] [phone] [facility] ([facility])[address] [facility] , [place], [place] [phone] [id number] [facility] [place], [place] [phone] [facility] [address] [place], [place] [phone] Faith [address] [place], [place] [phone] BLAYNE [place], Sharee/ Akira Delatorre F[address]akm[address] [place], [place] [phone] Cliff Nelson Ev[address]oseg[address] [place], [place] [phone] [facility] [place] [facility] [place] [address] [place], [place] [phone] Reyes Gey[address]leu[address] [place], [place] [phone] DEDRA Murillo Ahtjacbh[address]89 Bhupinder Bad[address] [place], [place] [phone] BLAYNE [place] Eg[address] [facility] [address] [place], [place] [phone] [facility] [address] [place], [place] [phone] [place] [address] [place], [place] [phone] [facility] [address] [place], [place] [phone] [place] [facility] [place] [address] Antonella., 3rd Floor [place], [place] [phone] (fax) ARNULFO Garza [facility] [address] DOMI Hassan [phone] Henrry Kong Vcphqtfd2742 Domi [address] [phone] [facility] and [phone]
--- NOTE | 2022-01-18 12:35 | NUR ---
Notified Dr Pineda that patient early this morning and that a message was left with his answering service.
--- NOTE | 2022-01-19 13:25 | NUR ---
SW received call from the pt.'s daughter, Kelly Wong requesting weight and attending physician's office number. SW provided information for arrangement purposes. Nathanmonica requested medical records for the months of December and January 2022 and requested SW notify Medical records and she will sign documents upon hand picker. ORACIO called medical records ext [phone] and they stated they will follow up and be in communication WITH [facility] TO PROVIDE THOSE RECORDS TO HER.
== END 2022-01-18 04:45 | DRG 981 ==
LOC: SA 00:01
PROVIDERS: ADMIT Internal Medicine Nephrology; ATTEND Internal Medicine Nephrology
PROC: 05HB33Z Insertion of Infusion Device into Right Basilic Vein, Percutaneous Approach (ICD-10-PCS; principal; 2021-06-18)
PROC: 0DP63UZ Removal of Feeding Device from Stomach, Percutaneous Approach (ICD-10-PCS; 2021-06-21)
PROC: 0DH63UZ Insertion of Feeding Device into Stomach, Percutaneous Approach (ICD-10-PCS; 2021-06-21)
PROC: 0KBP0ZZ Excision of Left Hip Muscle, Open Approach (ICD-10-PCS; 2022-01-13)
DX: J96.11 Chronic respiratory failure with hypoxia (principal); G92.8 Other toxic encephalopathy; L89.153 Pressure ulcer of sacral region, stage 3; L89.324 Pressure ulcer of left buttock, stage 4; R53.2 Functional quadriplegia; N17.9 Acute kidney failure, unspecified; N20.1 Calculus of ureter; J98.11 Atelectasis; D64.9 Anemia, unspecified; E11.9 Type 2 diabetes mellitus without complications; F03.90 Unspecified dementia, unspecified severity, without behavioral disturbance, psychotic disturbance, mood disturbance, and anxiety; G40.909 Epilepsy, unspecified, not intractable, without status epilepticus; J44.9 Chronic obstructive pulmonary disease, unspecified; I69.398 Other sequelae of cerebral infarction; E78.5 Hyperlipidemia, unspecified; I10 Essential (primary) hypertension; K21.9 Gastro-esophageal reflux disease without esophagitis; L30.4 Erythema intertrigo; L60.3 Nail dystrophy; R13.10 Dysphagia, unspecified; Z74.01 Bed confinement status; Z82.49 Family history of ischemic heart disease and other diseases of the circulatory system; Z83.3 Family history of diabetes mellitus; Z93.0 Tracheostomy status; Z93.1 Gastrostomy status; Z20.822 Contact with and (suspected) exposure to COVID-19; Z86.19 Personal history of other infectious and parasitic diseases; Z93.6 Other artificial openings of urinary tract status; L98.9 Disorder of the skin and subcutaneous tissue, unspecified; M62.422 Contracture of muscle, left upper arm; M62.421 Contracture of muscle, right upper arm; Z74.09 Other reduced mobility; M62.479 Contracture of muscle, unspecified ankle and foot; Z79.4 Long term (current) use of insulin; Z79.51 Long term (current) use of inhaled steroids; Z79.82 Long term (current) use of aspirin; Z79.899 Other long term (current) drug therapy; F09 Unspecified mental disorder due to known physiological condition; Z87.448 Personal history of other diseases of urinary system
CPT/HCPCS: 31720; 36410; 36415; 71045-TC; 74018; 80048-TC; 80202-TC; 82565-TC; 82962-TC; 83735-TC; 84100-TC; 84520-TC; 85025-TC; 86580-TC; 87040-TC; 87086-TC; 87186-TC; 94640-TC; 94760-TC; 94762-TC; 94799-TC; 99082-TC; A4623; A6248; A7526; J1815; J2185; J3370; J7030; J7060; Q9963; U0003